=== PATIENT | female | born 1975 | race African-American/Black ===

== ENCOUNTER 2021-07-29 07:57 | Outpatient (CLI) | payer OTHER, SELFPAY ==
[2021-07-29 08:47] LABS: Basophils Percent Auto 0.4 % (0.2-1.2); Eosinophils Absolute Auto 0.1 K/mm3 (0-0.3); Eosinophils Percent Auto 1.1 % (0-4.4); Hematocrit 44.3 % (37.0-47.0); Hemoglobin 14.8 g/dL (12.0-15.0); Immature Granulocyte Absolute 0.01 K/mm3 (0.00-0.031); Immature Granulocyte Percent A 0.1 % (0-0.5); Lymphocytes Absolute Auto 3.04 K/mm3 (0.9-3.2); Lymphocytes Percent Auto 34.2 % (18.3-44.2); Mean Corpuscular HGB Conc 33.4 g/dl (32-36); Mean Corpuscular Hemoglobin 31.3 pg (26-34); Mean Corpuscular Volume 93.7 fl (80-100); Mean Platelet Volume 10.2 fl (7.4-10.4); Monocytes Absolute Auto 0.6 K/mm3 (0.1-0.6); Monocytes Percent Auto 6.2 % (2.6-8.5); Neutrophils Absolute Auto 5.2 K/mm3 (1.3-6.7); Platelet Count Result 201 k/mm3 (150-375); Red Blood Count 4.73 M/mm3 (4.2-5.4); Red Cell Distribution Width 13.4 % (11.5-14.5); White Blood Count 8.9 K/mm3 (4.5-10.0)
[2021-07-29 09:22] LABS: Alanine Aminotransferase 19 U/L (4-35); Albumin Level 4.6 g/dL (3.5-5.1); Alkaline Phosphatase 66 U/L (38-126); Anion Gap 7 mmol/L (8-16); Aspartate Amino Transferase 31 U/L (14-36); Blood Urea Nitrogen 20 mg/dL (7-17); Calcium 9.5 mg/dL (8.4-10.2); Carbon Dioxide 29 mmol/L (22-30); Chloride 105 mmol/L (98-107); Cholesterol 190 mg/dL (0-200); Estimated Glomerular Filt Rate > 60; Glucose 84 mg/dL (65-110); HDL Direct 55 mg/dL; Phosphorus 3.2 mg/dL (2.5-4.5); Potassium 4.5 mmol/L (3.4-5.0); Sodium 141 mmol/L (137-145); Triglycerides 81 mg/dL (<150)
[2021-07-29 09:35] LABS: Vitamin D 25 Hydroxy 52.4 ng/mL
[2021-07-29 09:39] LABS: LDL Cholesterol Direct 89 mg/dL; Transferrin 259 mg/dL (206-381)
[2021-07-29 10:35] LABS: Folic Acid > 20.0 ng/mL (2.76->20)
[2021-07-29 11:26] LABS: Iron 56 ug/dL (37-170)
[2021-07-29 11:30] LABS: Percent Iron Saturation 15 % (20-50)
[2021-07-29 11:40] LABS: Parathyroid Intact 62.7 pg/mL (7.5-53.5)
== END 2021-07-29 07:58 | disposition home or self-care (01) ==
DX: K91.2 Postsurgical malabsorption, not elsewhere classified (principal); Z90.3 Acquired absence of stomach [part of]; Z98.84 Bariatric surgery status
CPT/HCPCS: 36415; 80053; 80061; 82306; 82607; 82728; 82746; 83540; 83550; 83735; 83970; 84100; 84425; 84466; 85025

== ENCOUNTER 2022-02-18 11:08 | Outpatient (CLI) | payer OTHER, SELFPAY ==
[2022-02-18 11:45] LABS: Basophils Absolute Auto 0.1 K/mm3 (0.0-0.1); Basophils Percent Auto 0.7 % (0.2-1.2); Eosinophils Absolute Auto 0.1 K/mm3 (0-0.3); Eosinophils Percent Auto 0.6 % (0-4.4); Hematocrit 42.2 % (37.0-47.0); Hemoglobin 13.9 g/dL (12.0-15.0); Immature Granulocyte Absolute 0.03 K/mm3 (0.00-0.031); Immature Granulocyte Percent A 0.3 % (0-0.5); Lymphocytes Percent Auto 27.4 % (18.3-44.2); Mean Corpuscular HGB Conc 32.9 g/dl (32-36); Mean Corpuscular Hemoglobin 32.3 pg (26-34); Mean Corpuscular Volume 97.9 fl (80-100); Mean Platelet Volume 10.1 fl (7.4-10.4); Monocytes Absolute Auto 0.4 K/mm3 (0.1-0.6); Monocytes Percent Auto 4.8 % (2.6-8.5); Neutrophils Absolute Auto 5.8 K/mm3 (1.3-6.7); Neutrophils Percent Auto 66.2 % (45.5-73.1); Platelet Count Result 221 k/mm3 (150-375); Red Blood Count 4.31 M/mm3 (4.2-5.4); Red Cell Distribution Width 12.7 % (11.5-14.5); White Blood Count 8.8 K/mm3 (4.5-10.0)
[2022-02-18 11:55] LABS: Alanine Aminotransferase 19 U/L (4-35); Albumin Level 4.3 g/dL (3.5-5.1); Alkaline Phosphatase 70 U/L (38-126); Anion Gap 3 mmol/L (8-16); Aspartate Amino Transferase 29 U/L (14-36); Bilirubin,Total 0.4 mg/dL (0.2-1.3); Blood Urea Nitrogen 20 mg/dL (7-17); Calcium 8.9 mg/dL (8.4-10.2); Carbon Dioxide 30 mmol/L (22-30); Chloride 106 mmol/L (98-107); Cholesterol 207 mg/dL (0-200); Estimated Glomerular Filt Rate > 60; Glucose 87 mg/dL (65-110); HDL Direct 72 mg/dL; Phosphorus 3.6 mg/dL (2.5-4.5); Potassium 4.1 mmol/L (3.4-5.0); Sodium 139 mmol/L (137-145); Triglycerides 74 mg/dL (<150)
[2022-02-18 12:06] LABS: LDL Cholesterol Direct 100 mg/dL
[2022-02-18 12:12] LABS: Iron 88 ug/dL (37-170)
[2022-02-18 12:14] LABS: Parathyroid Intact 62.3 pg/mL (7.5-53.5)
[2022-02-18 12:22] LABS: Percent Iron Saturation 28 % (20-50)
[2022-02-18 12:29] LABS: Vitamin D 25 Hydroxy 36.9 ng/mL
[2022-02-18 13:00] LABS: Folic Acid 15.7 ng/mL (2.76->20)
[2022-02-24 16:01] LABS: Vitamin B1 9 nmol/L (8-30)
== END 2022-02-18 11:09 | disposition home or self-care (01) ==
LOC: ANHLAB 11:14
DX: E66.01 Morbid (severe) obesity due to excess calories (principal); K90.9 Intestinal malabsorption, unspecified; Z98.84 Bariatric surgery status
CPT/HCPCS: 36415; 80053; 80061; 82306; 82607; 82728; 82746; 83540; 83550; 83735; 83970; 84100; 84425; 85025

== ENCOUNTER 2022-08-24 23:21 | Emergency (ER) | payer OTHER, SELFPAY ==
[2022-08-24 23:26] VITALS: BP 151/81; PULSE 57; RESP 18; TEMP 36.3; O2SAT 100
--- NOTE | 2022-08-24 23:39 | PC.NURSE ---
EDP at bedside to assess pt.
--- NOTE | 2022-08-24 23:42 | ED.GENADULT ---
HPI - General Adult General Chief complaint: Back Pain/Injury Stated complaint: back pain Time Seen by Provider: 08/24/22 23:35 Source: patient Mode of arrival: ambulatory Limitations: no limitations History of Present Illness HPI narrative: Presents c/o RT lateral back pain that pt awoke with this AM. States pain increases with lateral movement but able to change positions without diff. Denies urinary sx, fever, N/V or other sx at this time. Currently doing prep for colonoscopy in the AM. Denies traumatic injury. Related Data Allergies Allergy/AdvReac Type Severity Reaction Status Date / Time amoxicillin Allergy Rash Verified 08/24/22 23:23 Review of Systems Review of Systems: CONSTITUTIONAL: Denies fever, chills, or sweats. EYES: Denies visual changes, redness, or discharge. ENT: Denies rhinorrhea, congestion, sore throat, or otalgia. CARDIOVASCULAR: Denies chest pain, palpitations, or edema. RESPIRATORY: Denies cough or dyspnea. GASTROINTESTINAL: Denies abdominal pain, nausea, vomiting, or diarrhea. GENITOURINARY: Denies dysuria or hematuria. SKIN: Denies rash or itching. MUSCULOSKELETAL: Right lateral mid back pain. denies joint pain, or myalgia. NEUROLOGIC: Denies headache, numbness, or weakness. PSYCHIATRIC: Denies anxiety or depression. Exam Narrative: GENERAL: Well-appearing, well-nourished, and in no acute distress. HEAD: Normocephalic, atraumatic. EYES: PERRLA and EOMI. ENT: Nares clear, no rhinorrhea or epistaxis. Mucous membranes moist. NECK: Supple. CHEST: Clear to auscultation. No respiratory distress. HEART: Regular rate and rhythm. No murmur heard. Normal peripheral pulses. ABDOMEN: Soft, nontender, nondistended, normal active bowel sounds. EXTREMITIES: Normal range of motion. No edema. MUSCULOSKELETAL: Mild tenderness to palpation right lateral posterior rib area. Possible palpable muscle spasm to area. Slight CVA tenderness RT. Denies urinary sx. SKIN: Warm, dry, no rash. NEURO: No focal deficits. Alert and oriented x3. PSYCH: Normal mood and affect. Course Course Emergency Course: Asleep in room when entered to give urine results. Appears comfortable. Vital Signs Vital signs: Vital Signs Temperature 36.3 C L 08/24/22 23:26 Pulse Rate 57 L 08/24/22 23:26 Respiratory Rate 18 08/24/22 23:26 Blood Pressure 151/81 H 08/24/22 23:26 Pulse Oximetry 100 08/24/22 23:26 Oxygen Delivery Room Air 08/24/22 23:26 Temperature 36.3 C L 08/24/22 23:26 Pulse Rate 57 L 08/24/22 23:26 Respiratory Rate 18 08/24/22 23:26 Blood Pressure 151/81 H 08/24/22 23:26 Pulse Oximetry 100 08/24/22 23:26 Oxygen Delivery Room Air 08/24/22 23:26 Medical Decision Making Vital Signs Vital Signs: Vital Signs Temperature 36.3 C L 08/24/22 23:26 Pulse Rate 57 L 08/24/22 23:26 Respiratory Rate 18 08/24/22 23:26 Blood Pressure 151/81 H 08/24/22 23:26 Pulse Oximetry 100 08/24/22 23:26 Oxygen Delivery Room Air 08/24/22 23:26 Temperature 36.3 C L 08/24/22 23:26 Pulse Rate 57 L 08/24/22 23:26 Respiratory Rate 18 08/24/22 23:26 Blood Pressure 151/81 H 08/24/22 23:26 Pulse Oximetry 100 08/24/22 23:26 Oxygen Delivery Room Air 08/24/22 23:26 Lab Data Labs: Lab Results 08/24/22 Range/Units 23:44 Urine Color Yellow (Yellow) Urine Appearance Cloudy H (Clear) Urine pH 6.0 (5.0-9.0) Ur Specific [place] 1.013 (1.001-1.035) Urine Protein Negative (Negative) mg/dL Urine Glucose (UA) Negative (Negative) mg/dL Urine Ketones Negative (Negative) mg/dL Ur Blood (Man) 1+ H (Negative) Urine Nitrate Negative (Negative) Urine Bilirubin Negative (Negative) Urine Urobilinogen Negative (<2.0) mg/dL Leukocyte Esterase Rfl Negative (Negative) REYES/UL Urine RBC 0-2 (0-2) /hpf Urine WBC 0-3 /hpf Ur Squamous Epith Cells Many H (Few) /hpf Urine Mucus Rare /lpf Discharge Plan Discharge Cli
[2022-08-25 00:06] LABS: Add Urine Microscopic? YES; Appearance Urine Cloudy (Clear); Bilirubin Urine Negative (Negative); Blood Urine 1+ (Negative); Color Urine Yellow (Yellow); Glucose Urine UA Negative (Negative); Ketones Urine Negative (Negative); Leukocyte Esterase Ur Negative LEU/UL (Negative); Mucus Urine Rare /lpf; Nitrate Urine Negative (Negative); Protein Urine Negative (Negative); RBC Urine 0-2 /hpf (0-2); Specific Grav Ur 1.013 (1.001-1.035); Squamous Epithelial Cell Urine Many /hpf (Few); Urobilinogen Urine Negative mg/dL (<2.0); WBC Urine 0-3 /hpf
== END 2022-08-25 00:39 | disposition home or self-care (01) ==
PROVIDERS: Emergency Provider Nurse Practitioner
DX: M54.6 Pain in thoracic spine (principal)
CPT/HCPCS: 81001; 99283

== ENCOUNTER 2022-12-28 09:11 | Outpatient (CLI) | payer OTHER, SELFPAY ==
[2022-12-28 09:32] LABS: Basophils Percent Auto 0.4 % (0.2-1.2); Eosinophils Absolute Auto 0.1 K/mm3 (0-0.3); Eosinophils Percent Auto 0.7 % (0-4.4); Hemoglobin 14.8 g/dL (12.0-15.0); Immature Granulocyte Absolute 0.02 K/mm3 (0.00-0.031); Immature Granulocyte Percent A 0.2 % (0-0.5); Lymphocytes Absolute Auto 2.38 K/mm3 (0.9-3.2); Lymphocytes Percent Auto 29.1 % (18.3-44.2); Mean Corpuscular HGB Conc 33.6 g/dl (32-36); Mean Corpuscular Hemoglobin 31.7 pg (26-34); Mean Corpuscular Volume 94.2 fl (80-100); Mean Platelet Volume 9.9 fl (7.4-10.4); Monocytes Absolute Auto 0.4 K/mm3 (0.1-0.6); Monocytes Percent Auto 4.9 % (2.6-8.5); Neutrophils Absolute Auto 5.3 K/mm3 (1.3-6.7); Neutrophils Percent Auto 64.7 % (45.5-73.1); Platelet Count Result 218 k/mm3 (150-375); Red Blood Count 4.67 M/mm3 (4.2-5.4); Red Cell Distribution Width 13.1 % (11.5-14.5); White Blood Count 8.2 K/mm3 (4.5-10.0)
[2022-12-28 09:43] LABS: Alanine Aminotransferase 23 U/L (6-35); Albumin Level 4.5 g/dL (3.5-5.1); Alkaline Phosphatase 71 U/L (38-126); Anion Gap 5 mmol/L (8-16); Aspartate Amino Transferase 24 U/L (14-36); Bilirubin,Total 0.7 mg/dL (0.2-1.3); Blood Urea Nitrogen 21 mg/dL (7-17); Calcium 9.3 mg/dL (8.4-10.2); Carbon Dioxide 31 mmol/L (22-30); Chloride 104 mmol/L (98-107); Cholesterol 204 mg/dL (0-200); Estimated Glomerular Filt Rate > 60; Glucose 88 mg/dL (65-110); HDL Direct 68 mg/dL; Potassium 4.5 mmol/L (3.4-5.0); Sodium 140 mmol/L (137-145); Triglycerides 61 mg/dL (<150)
[2022-12-28 09:54] LABS: LDL Cholesterol Direct 93 mg/dL
[2022-12-31 04:51] LABS: FSH 50.7 mIU/mL (***); Prolactin 6.4 ng/mL (***)
== END 2022-12-28 09:12 | disposition home or self-care (01) ==
PROVIDERS: PCP Internal Medicine; Visit Provider Nurse Practitioner Family
DX: I10 Essential (primary) hypertension (principal); M54.9 Dorsalgia, unspecified; Z76.89 Persons encountering health services in other specified circumstances
CPT/HCPCS: 36415; 80053; 80061; 83001; 84146; 84443; 85025

== ENCOUNTER 2023-02-08 06:34 | Outpatient (CLI) | payer OTHER, SELFPAY ==
--- NOTE | ~2023-02-08 | CT_ITS ---
EXAMINATION: CT soft tissue neck wo con DATE: 02/08/2023 06:57 INDICATION: Right parotid swelling. TECHNIQUE: Computed tomography (CT) of the neck was performed without intravenous contrast. Automated exposure control and iterative reconstruction technique were employed. The dose-length product was 4 93.61 mGy-cm. COMPARISON: None FINDINGS: The parotid glands are normal. No sialolith. There are no pathologically enlarged lymph nod es. There is mild mucosal thickening in the ethmoid sinuses. The mastoid air cells are normal. There is mild cervical spondylosis. IMPRESSION: 1. Normal parotid glands. No sialolith. Reviewed, dictated and finalized at location A.
== END 2023-02-08 06:35 | disposition home or self-care (01) ==
LOC: ANHIMG 06:40
PROVIDERS: PCP Internal Medicine; Visit Provider Otolaryngology
DX: K11.23 Chronic sialoadenitis (principal)
CPT/HCPCS: 70490

== ENCOUNTER 2023-03-22 13:08 | Outpatient (CLI) | payer OTHER, SELFPAY ==
[2023-03-22 13:42] LABS: Urine Cotinine NEGATIVE
[2023-03-22 13:54] LABS: LDL Cholesterol Direct 70 mg/dL; Prealbumin 31.3 mg/dL (17.6-36.0)
[2023-03-22 13:56] LABS: Anion Gap 6 mmol/L (8-16); Blood Urea Nitrogen 17 mg/dL (7-17); Calcium 8.6 mg/dL (8.4-10.2); Carbon Dioxide 30 mmol/L (22-30); Chloride 101 mmol/L (98-107); Cholesterol 183 mg/dL (0-200); Estimated Glomerular Filt Rate > 60; Glucose 85 mg/dL (65-110); HDL Direct 109 mg/dL; Phosphorus 3.2 mg/dL (2.5-4.5); Potassium 4.2 mmol/L (3.4-5.0); Sodium 137 mmol/L (137-145); Triglycerides 71 mg/dL (<150)
[2023-03-22 14:49] LABS: Folic Acid 9.4 ng/mL (2.76->20)
== END 2023-03-22 13:09 | disposition home or self-care (01) ==
PROVIDERS: PCP Internal Medicine; Visit Provider Nurse Practitioner Family
DX: E66.3 Overweight (principal); Z87.891 Personal history of nicotine dependence
CPT/HCPCS: 80048; 80061; 80307; 82607; 82728; 82746; 84100; 84134

== ENCOUNTER 2024-01-09 23:05 | Observation (INO) | payer BC, SELFPAY ==
[2024-01-09 23:20] VITALS: BP 115/67; PULSE 71; RESP 15; TEMP 36.6; O2SAT 100
[2024-01-09 23:21] VITALS: O2SAT 100
--- NOTE | 2024-01-09 23:22 | ED.ALLEREA ---
HPI - Allergic Reaction General Chief complaint: Allergic Reaction <DANYA Glover Last Filed: 01/10/24 03:58> Stated complaint: facial swelling, itching <DANYA Glover Last Filed: 01/10/24 03:58> Time Seen by Provider: 01/09/24 23:20 <DANYA Glover Last Filed: 01/10/24 03:58> Source: patient <DANYA Glover Last Filed: 01/10/24 03:58> Mode of arrival: ambulatory <DANYA Glover Last Filed: 01/10/24 03:58> Limitations: no limitations <DANYA Glover Last Filed: 01/10/24 03:58> History of Present Illness HPI narrative: This is a 48 year old female that presents to the ER for allergic reaction. Reports about 20 minutes prior to arrival. She started to feel itchy all over. She took 50mg of Benadryl. She reports some itching beginning in her throat. Reports swelling of her face and hands. No known exposures. Denies dysphagia or dyspnea. <DANYA Glover Last Filed: 01/10/24 03:58> Related Data Home medications: Home Medications Medication Instructions Recorded Confirmed No Home Medications 01/10/24 01/10/24 <DANYA Glover Last Filed: 01/10/24 03:58> Allergies/adverse reactions: Allergies Allergy/AdvReac Type Severity Reaction Status Date / Time amoxicillin Allergy Rash Verified 02/19/23 17:09 Iodinated Contrast Media Allergy Rash Verified 02/19/23 17:09 <DANYA Glover Last Filed: 01/10/24 03:58> Review of Systems Review of Systems: CONSTITUTIONAL: Denies fever ENT: Denies dysphagia RESPIRATORY: Denies dyspnea. GASTROINTESTINAL: Denies nausea, vomiting, or diarrhea. SKIN: Reports rash and itching. <DANYA Glover Last Filed: 01/10/24 03:58> All systems reviewed & are unremarkable except as noted in HPI and below <DANYA Glover Filed: 01/10/24 03:58> [facility] Surgical History Surgical History: Surgical History H/O gastric sleeve H/O: hysterectomy History of appendectomy <Olivia Fink PA-C - Last Filed: 01/10/24 03:58> Family History Family History: Family History Father Hypertension <Olivia Fink PA-C - Last Filed: 01/10/24 03:58> Social History Social History: Social History Smoking packs per day: 0.25 Smoking cigarettes per day: 5.0 Years smoked: 10 Smoking pack-years: 2.50 Smoking status: Light tobacco smoker Tobacco type: cigarettes Second hand tobacco smoke exposure: Yes Smoking end date: 11/07/09 Alcohol intake: current Drinks per week: 2 Alcohol use details: occasionally Substance use: never Substance use type: does not use Do You Feel Safe in your Home?: Yes Lack of Transportation: No Lack of Food: Never True Current Housing: I Have Housing Concerned About Future Housing: No Difficulty Paying Gas/Electric Bills: No Difficulty Paying for Meds: No Currently Unemployed: No Education: High School Diploma/GED Difficulty w/ Childcare or Family Care: No Spiritual care concerns: No <DANYA Glover Last Filed: 01/10/24 03:58> Exam Narrative: GENERAL: Well-appearing, well-nourished, and in no acute distress. HEAD: Normocephalic, atraumatic. EYES: EOMI. ENT: Nares clear, no rhinorrhea or epistaxis. Mucous membranes moist. Oropharynx with mild erythema. Swelling of the lips and tongue NECK: Supple. No adenopathy or masses CHEST: Clear to auscultation. No respiratory distress. No wheezes rales or rhonchi HEART: Regular rate and rhythm. No murmur heard. Normal peripheral pulses. EXTREMITIES: Normal range of motion. No edema. SKIN: Warm, dry. Diffuse hives NEURO: No focal deficits. Alert and oriented x3. PSYCH: Normal mood and affect <Olivia Fink PA-C - Last Filed: 01/10/24 03
--- NOTE | 2024-01-09 23:30 | ECG_ITS ---
Measurements Intervals [place] Rate: 68 P: 58 FL: 149 QRS: 9 QRSD: 103 T: 25 QT: 419 QTc: 446 Interpretive Statements SINUS RHYTHM BASELINE ARTIFACT- I, II, III NORMAL ECG NO PREVIOUS ECG AVAILABLE FOR COMPARISON Electronically Signed On 01-10-2024 14:43:45 BEEF TAGGER by Jimi Lerner D.O.
[2024-01-09] MEDS: methylPREDNISolone SOD SUCC 125 MG VIAL IV PUSH (23:49)
[2024-01-09] MEDS: FAMOTIDINE 20 MG/2 ML VIAL IV PUSH (23:49)
[2024-01-09] MEDS: ACETAMINOPHEN 500 MG TABLET 1000 MG PO (23:49)
[2024-01-10] VITALS (12 sets, daily range): BP systolic 117–153; BP diastolic 68–93; PULSE 56–77; RESP 15–21; TEMP 35.9–37; O2SAT 97–100
--- NOTE | 2024-01-10 01:03 | PC.NURSE ---
Pt resting in room comfortable at this time. Pt reports relief of itching.
--- NOTE | 2024-01-10 03:42 | PC.NURSE ---
Pts generalized rash has improved, pt denies any current itching. swelling in mouth has also resolved. Pt does still have swelling to lips.
--- NOTE | 2024-01-10 04:00 | ECG_ITS ---
Measurements Intervals [place] Rate: 60 P: 46 OR: 128 QRS: 20 QRSD: 112 T: 18 QT: 449 QTc: 451 Interpretive Statements SINUS RHYTHM EARLY PRECORDIAL R/S TRANSITION BORDERLINE ECG COMPARED TO ECG 01/09/2024 23:30:26 NO SIGNIFICANT CHANGES Electronically Signed On 01-10-2024 6:51:26 BILLING ANALYST by Jimi Lerner D.O.
--- NOTE | 2024-01-10 04:14 | PC.NURSE ---
See incident report ([id number]) regarding administration error of Epinephrine.
[2024-01-10 04:55] LABS: Basophils Percent Auto 0.3 % (0.2-1.2); Hematocrit 44.8 % (37.0-47.0); Hemoglobin 14.5 g/dL (12.0-15.0); Immature Granulocyte Absolute 0.03 K/mm3 (0.00-0.031); Immature Granulocyte Percent A 0.4 % (0-0.5); Lymphocytes Percent Auto 13.8 % (18.3-44.2); Mean Corpuscular HGB Conc 32.4 g/dl (32-36); Mean Corpuscular Hemoglobin 32.2 pg (26-34); Mean Corpuscular Volume 99.3 fl (80-100); Mean Platelet Volume 9.7 fl (7.4-10.4); Monocytes Absolute Auto 0.1 K/mm3 (0.1-0.6); Monocytes Percent Auto 1.5 % (2.6-8.5); Neutrophils Absolute Auto 6.1 K/mm3 (1.3-6.7); Platelet Count Result 255 k/mm3 (150-375); Red Blood Count 4.51 M/mm3 (4.2-5.4); Red Cell Distribution Width 13.1 % (11.5-14.5); White Blood Count 7.3 K/mm3 (4.5-10.0)
[2024-01-10 05:05] LABS: Alanine Aminotransferase 24 U/L (6-35); Albumin Level 4.4 g/dL (3.5-5.1); Alkaline Phosphatase 85 U/L (38-126); Anion Gap 9 mmol/L (8-16); Aspartate Amino Transferase 37 U/L (14-36); Bilirubin,Total 0.5 mg/dL (0.2-1.3); Blood Urea Nitrogen 26 mg/dL (7-17); Calcium 9.3 mg/dL (8.4-10.2); Carbon Dioxide 23 mmol/L (22-30); Chloride 106 mmol/L (98-107); Estimated CRCL calculation 80 ml/min; Estimated Glomerular Filt Rate > 60; Glucose 98 mg/dL (65-110); Potassium 3.9 mmol/L (3.4-5.0); Sodium 138 mmol/L (137-145)
--- NOTE | 2024-01-10 05:19 | ADMGEN ---
This patient, Maria Del Carmen Ray, was admitted to Medical Room 348-01. Patient/family oriented to hospital policies and general routines including ID bracelet, bed and alarms, visiting hours, pain management, procedures, bathroom and other care routines, personal items, smoking policy, room service/diet, and visiting hours. Information on how to activate the Rapid Response Team has been discussed. Patient/Family are encouraged to report perceived risks to care and to ask questions if they do not understand what they are told or what they should do.
[2024-01-10] MEDS: methylPREDNISolone SOD SUCC 125 MG VIAL 60 MG IV PUSH ×4 (06:30→23:47)
--- NOTE | 2024-01-10 09:27 | PM.IMHP ---
H&P: [facility] History of Present Illness Date/Time: 01/10/24 09:27 Chief Complaint: allergic reaction Narrative: 48yo healthy female who presents with complaints of allergic reaction with facial swelling and itching. Patient developed cough and sharp, frequent right sided chest pain described as 'contraction' on 01/08/24. She presented to outside facility and states that CXR and EKG were normal. COVID swab negative. She was discharged with Flonase and benzonate but did not fill these medications. On the morning of admission, she was advised by a colleague to take ASA which she took 162mg. She believes she has taken ASA in the past but can not recall how long ago. She did not have any symptoms. That evening, she took ASA 162mg again and also are spinish, eggs, cheese and spices. About 30 minutes later, she developed allergic symptoms. Fingers began to itch then involving her whole body. Facial swelling involving lips; throat swelling with SOB; hives developed throughout. Showering made her pruritus worse. She has never had this before. No history of asthma or eczema. She is allergic to contrast dye and penicillin which causes rash but not hives. She is not on an JAYJAY-inhibitor. No family history of allergic reactions. She does not take any medications. No new [id number]-[id number] medications. She took Benadryl but her symptoms did not improve and she presented to the emergency room for evaluation. In the emergency room, patient was hemodynamically stable. EKG showed normal sinus rhythm with early transition but otherwise normal. Cbc and CMP were essentially normal. Patient was given Solu-Medrol, Pepcid and epinephrine. She had some improvement although continued to have lip and tongue swelling after 4-1/2 hours. She was admitted for further care. Of note is that the patient was accidentally given epinephrine IV instead of IM in the ED. She experienced tachycardia and headache. Currently she feels better overall. She still has lip swelling and her tongue feels thick. She still has headache but this is improved. She denies any vision changes, hearing changes, chest pain, shortness of breath, palpitations, nausea, vomiting, back pain, abdominal pain, dysuria or hematuria. Still with mild cough. Review of Systems Review of Systems: All systems reviewed & are unremarkable except as noted in HPI and below [facility] Past Medical History Medical History (Updated 01/10/24 @ 09:48 by Chris Petersen MD) Angioedema Surgical History Surgical History H/O gastric sleeve H/O: hysterectomy History of appendectomy Family History Family History Father Hypertension Social History Social History Smoking packs per day: 0.25 Smoking cigarettes per day: 5.0 Years smoked: 10 Smoking pack-years: 2.50 Smoking status: Light tobacco smoker Tobacco type: cigarettes Second hand tobacco smoke exposure: Yes Smoking end date: 11/07/09 Alcohol intake: current Drinks per week: 2 Alcohol use details: occasionally Substance use: never Substance use type: does not use Do You Feel Safe in your Home?: Yes Lack of Transportation: No Lack of Food: Never True Current Housing: I Have Housing Concerned About Future Housing: No Difficulty Paying Gas/Electric Bills: No Difficulty Paying for Meds: No Currently Unemployed: No Education: High School Diploma/GED Difficulty w/ Childcare or Family Care: No Spiritual care concerns: No Meds Home Medications and Allergies Home Medications Medication Instructions Recorded Confirmed Type No Home Medications 01/10/24 01/10/24 History Allergies Allergy/AdvReac Type Severity Reaction Status Date / Time amoxicillin Allergy Rash Verified 02/19/23 17:09 Iodinated Contrast Media Allergy Rash Verified 02/19
[2024-01-10] MEDS: FAMOTIDINE 20 MG TABLET PO ×2 (09:47→20:46)
[2024-01-10] MEDS: polyethylene glycoL 3350 17 GM POWD.PACK PO (21:43)
[2024-01-11] VITALS (7 sets, daily range): BP systolic 129–152; BP diastolic 78–83; PULSE 51–68; RESP 20; TEMP 36.6–36.8; O2SAT 98–99
[2024-01-11] MEDS: methylPREDNISolone SOD SUCC 125 MG VIAL 60 MG IV PUSH ×2 (05:32→12:29)
[2024-01-11] MEDS: FAMOTIDINE 20 MG TABLET PO (08:18)
[2024-01-11] MEDS: ACETAMINOPHEN 325 MG TABLET 650 MG PO (09:57)
--- NOTE | 2024-01-11 15:53 | PM.DS ---
DS: Admitting Diagnosis Discharge Date 01/11/24 Admitting Diagnosis Allergic reaction Angioedema DS: Discharge Diagnosis Discharge Diagnosis (1) Allergic reaction: Qualifiers: Encounter type: initial encounter Qualified Code(s): T78.40XA - Allergy, unspecified, initial encounter Code(s): T78.40XA - Allergy, unspecified, initial encounter Status: Acute (2) Angioedema: Code(s): T78.3XXA - Angioneurotic edema, initial encounter Status: Acute DS: Summary Hospital Course Reason for hospitalization: Allergic reaction Angioedema Hospital Course: This is a 48 year old female who presented to the hospital on 01/09/24 with complaints of allergic reaction with facial swelling and itching. Work up in the hospital included soft tissue neck CT which was noted as normal. Initial labs were essentially unremarkable. Patient was placed on observation status. Patient was given epinephrine, solu-medrol and pepcid while in the ED. Today patient states that she has no more swelling or numbness to her face. I discussed that she will need to follow up with an household appliance mechanic on an outpatient basis. She was given a prescription for Solu-medrol dose pack and an Epi pen. She will need to follow up with her PCP in 1 week. VSS. She is afebrile, currently on room air. She is stable for discharge. Final diagnosis: allergic reaction, angioedema Status at Discharge Cognitive/behavioral status at discharge: Alert and oriented x3 Functional status at discharge: independent ambulation Overall status at discharge: patient is progressing back to baseline Time Spent with Patient Time attestation: Total time spent providing and/or coordinating discharge services: Time spent: Greater than 30 minutes Exam Narrative: General: In no acute distress, well nourished Head: atraumatic, no encephalopathy Eyes: EOMI, PERRLA, sclera clear ENT: moist mucous membranes, nasal passages clear Neck: supple, no JVD, no adenopathy, trachea midline Cardiac: Normal S1 and S2. No murmur, gallops or friction rubs, peripheral pulses intact. Respiratory: Lungs clear to auscultation, no adventitious lung sounds Gastrointestinal: soft, non-distended, non-tender, normoactive bowel sounds. : voiding without difficulty. Extremities: moves all extremities well, no edema, good ROM, strength 5/5 Skin: clean, dry, intact. No wounds or lesions. Neuro: Alert and oriented x4, cranial nerves intact, no neuro deficits. Psych: normal mood, normal affect, interactive DS: Data Data Completed and Pending Completed studies during hospitalization: Soft tissue of neck CT Pending studies at discharge: None Procedures/Treatments: None Imaging Radiologist's impression: EXAMINATION: CT soft tissue neck wo con DATE: 02/08/2023 06:57 INDICATION: Right parotid swelling. TECHNIQUE: Computed tomography (CT) of the neck was performed without intravenous contrast. Automated exposure control and iterative reconstruction technique were employed. The dose-length product was 493.61 mGy-cm. COMPARISON: None FINDINGS: The parotid glands are normal. No sialolith. There are no pathologically enlarged lymph nodes. There is mild mucosal thickening in the ethmoid sinuses. The mastoid air cells are normal. There is mild cervical spondylosis. IMPRESSION: 1. Normal parotid glands. No sialolith. Reviewed, dictated and finalized at location A. Discharge Plan Discharge Attending physician on discharge: Sugar Carranza Consulting providers: Olivia Fink; Chris Petersen; Carin Danielle Discharging Clinician: Carin Danielle Anticipated Discharge Date/Time: 01/11/24 15:50 Patient Disposition: Home, Self-Care Activity: as tolerated Diet: as tolerated Discharge Instructions: home with an EpiPen and follow-up with household appliance mechanic. Finish al
== END 2024-01-11 17:15 | disposition home or self-care (01) ==
LOC: ANHED 01-10 03:56 → ANH3MED 01-10 05:44
PROVIDERS: Admitting Provider General Practice; Emergency Provider Physician Assistant; PCP Family Medicine; Visit Provider Family Medicine
DX: T78.40XA Allergy, unspecified, initial encounter (principal); T78.3XXA Angioneurotic edema, initial encounter; L29.9 Pruritus, unspecified; X58.XXXA Exposure to other specified factors, initial encounter; Z98.84 Bariatric surgery status; F17.210 Nicotine dependence, cigarettes, uncomplicated; F10.90 Alcohol use, unspecified, uncomplicated; Z79.899 Other long term (current) drug therapy
CPT/HCPCS: 36415; 80053; 85025; 93005; 96374; 96375; 96376; 99285; A9270; G0378; J2930

== ENCOUNTER 2024-05-21 15:17 | Emergency (ER) | payer BC, SELFPAY ==
--- NOTE | ~2024-05-21 | XR_ITS ---
XR chest 2V Ordering provider: ISAMAR Brooks History: 48 years Female with . cough x2 weeks . Comparison: None. FINDINGS: MEDIASTINUM: The cardiac silhouette is not enlarged. LUNGS: No infiltrates, effusions or pneumothorax. OTHER: No free air under the diaphragm. IMPRESSION: No acute cardiopulmonary pathology. Reviewed, dictated and finalized at location A.
[2024-05-21 15:26] VITALS: BP 161/112; PULSE 72; RESP 16; TEMP 36.4; O2SAT 99
[2024-05-21 15:28] VITALS: BP 149/101
--- NOTE | 2024-05-21 15:39 | ED.URI ---
HPI - URI/Sore Throat General Chief Complaint: Upper Respiratory Infection Stated Complaint: Cough/Chills/Congestion Time Seen by Provider: 05/21/24 15:32 Source: patient and RN notes reviewed Mode of arrival: ambulatory Limitations: no limitations History of Present Illness HPI Narrative: Patient presents today complaining of a 2 week history of cough that is occasionally productive. Associated symptoms include night sweats and chills, mild congestion. Denies rhinorrhea, sore throat, fever, shortness of breath. Denies known sick contacts. She has tried no medication for symptoms prior to arrival. No history of asthma or COPD. She is a nonsmoker. Related Data Allergies Allergy/AdvReac Type Severity Reaction Status Date / Time amoxicillin Allergy Rash Verified 05/21/24 15:24 Iodinated Contrast Media Allergy Rash Verified 05/21/24 15:24 Review of Systems Review of Systems: CONSTITUTIONAL: Denies body aches, fever. + sweats, chills EYES: Denies visual changes, redness, or discharge. ENT: Denies rhinorrhea, sore throat, or otalgia.+ congestion CARDIOVASCULAR: Denies chest pain, palpitations, or edema. RESPIRATORY: Denies dyspnea.+ cough GASTROINTESTINAL: Denies abdominal pain, nausea, vomiting, or diarrhea. GENITOURINARY: Denies dysuria or hematuria. SKIN: Denies rash, itching, or wounds. MUSCULOSKELETAL: Denies back pain, joint pain, or myalgia. NEUROLOGIC: Denies headache, numbness, tingling, or weakness. PSYCH: Denies depression or anxiety. [facility] Past Medical History Medical History Angioedema Surgical History Surgical History H/O gastric sleeve H/O: hysterectomy History of appendectomy Family History Family History Father Hypertension Social History Social History (Updated 05/21/24 @ 15:41 by Negar Swann, ISAMAR, ) Years smoked: 10 Smoking status: Former smoker Tobacco type: cigarettes Second hand tobacco smoke exposure: Yes Smoking end date: 11/07/09 Alcohol intake: current Drinks per week: 2 Alcohol use details: occasionally Substance use: never Substance use type: does not use Do You Feel Safe in your Home?: Yes Lack of Transportation: No Lack of Food: Never True Current Housing: I Have Housing Concerned About Future Housing: No Difficulty Paying Gas/Electric Bills: No Difficulty Paying for Meds: No Currently Unemployed: No Education: High School Diploma/GED Difficulty w/ Childcare or Family Care: No Spiritual care concerns: No Comments At time of signature, I have reviewed and agree with nursing past medical, surgical, social and family history unless otherwise noted. Please see nursing chart for further information. There is no relevant family history pertinent to the presenting complaint Exam Narrative: GENERAL: Well-appearing, well-nourished, and in no acute distress. HEAD: Normocephalic, atraumatic. EYES: EOMI. No redness or drainage. Conjunctivae normal. ENT: Mucous membranes pink and moist. Nares mildly congested. No rhinorrhea. TMs normal bilaterally. Throat normal. Uvula midline. NECK: Normal AROM. Supple. No lymphadenopathy. CHEST: No respiratory distress. Clear to auscultation. HEART: Regular rate and rhythm. No murmur appreciated. EXTREMITIES: Normal range of motion. No edema. SKIN: Warm, dry, no rash. Capillary refill normal. Normal skin turgor. NEURO: No focal deficits. Alert and oriented x3. Gait steady. PSYCH: Normal affect. No signs of depression or anxiety. Course Course Level of Care: Express Care Visit Vital Signs Vital signs: Vital Signs Temperature 97.6 F 05/21/24 15:26 Pulse Rate 72 05/21/24 15:26 Respiratory Rate 16 05/21/24 15:26 Blood Pressure 161/112 H 05/21/24 15:26 Pulse Oximetry 99 05/21
== END 2024-05-21 16:09 | disposition home or self-care (01) ==
PROVIDERS: Emergency Provider Nurse Practitioner; PCP Family Medicine
DX: J40 Bronchitis, not specified as acute or chronic (principal); Z87.891 Personal history of nicotine dependence; Z98.84 Bariatric surgery status
CPT/HCPCS: 71046; 99213; G0463

== ENCOUNTER 2024-09-24 12:30 | Outpatient (CLI) | payer BC, SELFPAY ==
[2024-09-24 15:18] LABS: Hepatitis B Surface Antigen Negative (Negative)
[2024-09-24 15:23] LABS: HAV RESULT Negative (Negative); Hepatitis B Core IgM Result Negative (Negative)
[2024-09-24 15:35] LABS: Hepatitis C Virus Antibody Negative (Negative)
[2024-09-24 22:21] LABS: HIV 1/2 Ab P24 Ag Result Negative (Negative)
[2024-09-25 07:24] LABS: Rapid Plasma Reagin Non-Reactive (NonReactive)
== END 2024-09-24 12:31 | disposition home or self-care (01) ==
LOC: ANHLAB 12:32
PROVIDERS: PCP Nurse Practitioner Family; Visit Provider Nurse Practitioner Family
DX: Z20.2 Contact with and (suspected) exposure to infections with a predominantly sexual mode of transmission (principal)
CPT/HCPCS: 36415; 80074; 86592; 86695; 86696; 86703; G0432

== ENCOUNTER 2024-10-03 08:41 | Outpatient (CLI) | payer BC, SELFPAY ==
[2024-10-03 09:00] LABS: Add Urine Microscopic? NO; Appearance Urine Clear (Clear); Bilirubin Urine Negative (Negative); Blood Urine Negative (Negative); Color Urine Yellow (Yellow); Glucose Urine UA Negative (Negative); Ketones Urine Negative (Negative); Leukocyte Esterase Ur Negative LEU/UL (Negative); Nitrate Urine Negative (Negative); Protein Urine Negative (Negative); Specific Grav Ur 1.019 (1.001-1.035); Urobilinogen Urine 0.2 mg/dL (<2.0); pH Urine 5.5 (5.0-9.0)
== END 2024-10-03 08:42 | disposition home or self-care (01) ==
LOC: ANHLAB 08:43
PROVIDERS: PCP Nurse Practitioner Family; Visit Provider Nurse Practitioner Family
DX: R30.0 Dysuria (principal)
CPT/HCPCS: 81003; 87086

== ENCOUNTER 2024-10-22 20:06 | Emergency (ER) | payer BC, SELFPAY ==
[2024-10-22 20:12] VITALS: BP 164/99; PULSE 72; RESP 17; TEMP 36.6; O2SAT 100
[2024-10-22 23:11] LABS: Add Urine Microscopic? NO; Appearance Urine Clear (Clear); Bilirubin Urine Negative (Negative); Blood Urine Negative (Negative); Color Urine Yellow (Yellow); Glucose Urine UA Negative (Negative); Ketones Urine Trace mg/dL (Negative); Leukocyte Esterase Ur Negative LEU/UL (Negative); Nitrate Urine Negative (Negative); Protein Urine Negative (Negative); Specific Grav Ur 1.024 (1.001-1.035); pH Urine 6.5 (5.0-9.0)
--- NOTE | 2024-10-22 23:24 | ED_ITS ---
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 Reports she was recently treated for BV. She had finished a course of metronidazole. Started to experience some irritation again. Started on clindamycin. Has had worsening burning with urination. Also reports some abnormal discharge. Related Data Allergies Allergy/AdvReac Type Severity Reaction Status Date / Time amoxicillin Allergy Rash Verified 09/12/24 07:09 Iodinated Contrast Media Allergy Rash Verified 09/12/24 07:09 Review of Systems Review of Systems: CONSTITUTIONAL: Denies fever GENITOURINARY: Reports dysuria. Denies hematuria. SKIN: Denies rash All systems reviewed & are unremarkable except as noted in HPI and below PMFSH Past Medical History Medical History Angioedema Surgical History Surgical History H/O gastric sleeve H/O: hysterectomy History of appendectomy Family History Family History Father Hypertension Social History Social History (Updated 05/21/24 @ 15:41 by Negar Swann, ISAMAR, ) Years smoked: 10 Smoking status: Former smoker Tobacco type: cigarettes Second hand tobacco smoke exposure: Yes Smoking end date: 11/07/09 Alcohol intake: current Drinks per week: 2 Alcohol use details: occasionally Substance use: never Substance use type: does not use Do You Feel Safe in your Home?: Yes Lack of Transportation: No Lack of Food: Never True Current Housing: I Have Housing Concerned About Future Housing: No Difficulty Paying Gas/Electric Bills: No Difficulty Paying for Meds: No Currently Unemployed: No Education: High School Diploma/GED Difficulty w/ Childcare or Family Care: No Spiritual care concerns: No Exam Narrative: GENERAL: Well-appearing, well-nourished, and in no acute distress. HEAD: Normocephalic, atraumatic. EYES: EOMI. EXTREMITIES: Normal range of motion. No edema. SKIN: Warm, dry, no rash. NEURO: No focal deficits. Alert and oriented x3. PSYCH: Normal mood and affect PELVIC: Normal external genitalia. Scant white cervical discharge. No CMT Course Course Emergency Course: patient updated on her workup and agrees with plan of care Vital Signs Vital signs: Vital Signs Temperature 97.9 F 10/22/24 20:12 Pulse Rate 72 10/22/24 20:12 Respiratory Rate 17 10/22/24 20:12 Blood Pressure 164/99 H 10/22/24 20:12 Pulse Oximetry 100 10/22/24 20:12 Oxygen Delivery Room Air 10/22/24 20:12 Temperature 97.9 F 10/22/24 20:12 Pulse Rate 72 10/22/24 20:12 Respiratory Rate 17 10/22/24 20:12 Blood Pressure 164/99 H 10/22/24 20:12 Pulse Oximetry 100 10/22/24 20:12 Oxygen Delivery Room Air 10/22/24 20:12 MDM - Female Genitourinary MDM Narrative Medical decision making narrative: Patient presents to the ER for vaginal irritation. Recently on Metronidazole and then Clindamycin for BV. she is afebrile and nontoxic appearing. Urine without evidence of infection. Chlamydia, gonorrhea Trichomonas negative. test negative. General genital culture sent. Patient given dose of fluconazole. Instructed to have continued follow up with her PCP and given information for follow up with gynecology. She was given warnings to return to the ER Differential Diagnosis Differential diagnosis: Likely urinary tract infection, bacterial vaginosis, trichomoniasis, cervicitis, vaginitis and cystitis Lab Data Attestation: I reviewed the patient's lab results. Labs: Lab Results 10/22/24 10/22/24 10/22/24 Range/Units 22:58 23:21 23:50 Urine Color Yellow (Yellow) Urine Appearance Clear (Clear) Urine pH 6.5 (5.0-9.0) Ur Specific [place] 1.024 (1.001-1.035) Urine Protein Negative (Negative) mg/dL Urine Glucose (UA) Negative (Negative) mg/dL Urine Ketones Trace H (Negative) mg/dL Ur Blood (Man) Negative (Negative) Urine Nitrate Negative (Negative) Urine Bilirubin Negative (Negative) Urine Urobilinogen 1.0 (<2.0) mg/dL Leukocyte Esterase Rfl Negative (Negative) REYES/UL POC Urine HCG, Qual Negative (Negative) C. trachomatis (PCR) Not detected (NOT DETECTE) N. gonorrhoeae (PCR) Not detected (NOT DETECTE) T. vaginalis (PCR) Not detected (NOT DETECTE) Critical Care Time Critical Care Time Critical Care Time: No Discharge Plan Discharge Clinical Impression: Vaginitis Qualifiers: Chronicity: acute Qualified Code(s): N76.0 - Acute vaginitis Patient Disposition: Home, Self-Care Condition: Stable Additional Instructions: Return to the ER if you experience fever, abdominal pain with nausea and vomiting, you are unable to keep down liquids or solids, blood in the urine or any other symptoms that are concerning to you Remain well hydrated. Finish your antibiotics as prescribed Follow up with your primary care doctor and/or gynecology Patient Language: Angolan Prescriptions: No Action clindamycin HCl 300 mg capsule 300 mg PO BID 7 Days Qty: 14 0RF fluconazole 150 mg tablet 150 mg PO ONCE Qty: 2 0RF Rx Instructions: as a single dose; may repeat in 72 hrs if symptoms persist Follow-up/Referrals: Juanis Richards APRN [Primary Care Provider] - Allison Tang MD [Physician] -
[2024-10-22] MEDS: FLUCONAZOLE 150 MG TABLET PO (23:47)
[2024-10-22 23:52] LABS: BEDSIDEPREGUCG Negative (Negative)
[2024-10-23] VITALS: BP 152/90; PULSE 78; RESP 15; O2SAT 99
[2024-10-23 00:34] LABS: Trichomonas Vag PCR NOT DETECTED (NOT DETECTE)
[2024-10-23 00:59] LABS: Chlamydia trachomatis NOT DETECTED (NOT DETECTE); Neisseria gonorrhoeae PCR NOT DETECTED (NOT DETECTE)
[2024-10-23 01:49] VITALS: BP 144/80; PULSE 68; RESP 15; O2SAT 100
== END 2024-10-23 01:51 | disposition home or self-care (01) ==
PROVIDERS: Emergency Provider Physician Assistant; PCP Nurse Practitioner Family
DX: N76.0 Acute vaginitis (principal); Z98.84 Bariatric surgery status; Z90.710 Acquired absence of both cervix and uterus; Z87.891 Personal history of nicotine dependence
CPT/HCPCS: 81003; 81025; 87070; 87491; 87591; 87661; 99284; A9270

== ENCOUNTER 2024-10-28 14:38 | Emergency (ER) | payer BC, SELFPAY ==
[2024-10-28 14:46] VITALS: BP 150/100; PULSE 75; RESP 17; TEMP 36.5; O2SAT 100
[2024-10-28] MEDS: KETOROLAC 30 MG/ML VIAL (*BKC) IM (15:41)
[2024-10-28 16:14] LABS: Strep Group A RT-PCR NOT DETECTED (Negative)
[2024-10-28 16:27] LABS: Influenza A QL RT-PCR Negative (Negative); Influenza B QL RT-PCR Negative (Negative); RSV RNA, RT-PCR Negative (Negative); SARS-CoV-2 RNA PCR Negative (Negative)
--- NOTE | 2024-10-28 16:40 | ED_ITS ---
HPI - General Adult General Chief complaint: Unspecified Stated complaint: want blood work done , lymph nodes swollen Time Seen by Provider: 10/28/24 15:07 History of Present Illness HPI narrative: patient is a 49-year-old female who presents ER with concerns for illness. Reports he has been having some fatigue and sore throat. She has had some aching in her neck and shoulders. She reports enlargement of lymph nodes in her neck. No reported fevers or chills. She has recently been treated for BV. No recent sexual activity while being on the medication. No abdominal pain or pelvic pain. Related Data Allergies Allergy/AdvReac Type Severity Reaction Status Date / Time amoxicillin Allergy Rash Verified 09/12/24 07:09 Iodinated Contrast Media Allergy Rash Verified 09/12/24 07:09 Review of Systems Review of Systems: All systems reviewed & are unremarkable except as noted in HPI and below Constitutional: Constitutional: Reports no additional constitutional complaints ENT: Reports system reviewed and no additional complaints, except as documente d Cardiovascular: Cardiovascular: Reports no additional cardiovascular complaints Respiratory: Respiratory: Reports no additional respiratory complaints [facility] Past Medical History Medical History Angioedema Surgical History Surgical History H/O gastric sleeve H/O: hysterectomy History of appendectomy Family History Family History Father Hypertension Social History Social History (Updated 05/21/24 @ 15:41 by Negar Swann, [facility], ) Years smoked: 10 Smoking status: Former smoker Tobacco type: cigarettes Second hand tobacco smoke exposure: Yes Smoking end date: 11/07/09 Alcohol intake: current Drinks per week: 2 Alcohol use details: occasionally Substance use: never Substance use type: does not use Do You Feel Safe in your Home?: Yes Lack of Transportation: No Lack of Food: Never True Current Housing: I Have Housing Concerned About Future Housing: No Difficulty Paying Gas/Electric Bills: No Difficulty Paying for Meds: No Currently Unemployed: No Education: High School Diploma/GED Difficulty w/ Childcare or Family Care: No Spiritual care concerns: No Exam Narrative: GENERAL: Well-appearing, well-nourished, and in no acute distress. HEAD: Normocephalic, atraumatic. ENT: Mucous membranes moist. Normal appearing posterior oropharynx. NECK: Supple , no significant lymphadenopathy. full range of motion of the neck without midline tenderness. CHEST: Clear to auscultation. No respiratory distress. HEART: Regular rate and rhythm. Normal peripheral pulses. EXTREMITIES: Normal range of motion. No edema. NEURO: Alert and oriented x3. PSYCH: Normal mood and affect. Course Course Emergency Course: Viral panel and strep negative. Patient informed results. Recommend symptomatic care with [id number] medication. Discharge. Vital Signs Vital signs: Vital Signs Temperature 97.7 F 10/28/24 14:46 Pulse Rate 75 10/28/24 14:46 Respiratory Rate 17 10/28/24 14:46 Blood Pressure 150/100 H 10/28/24 14:46 Pulse Oximetry 100 10/28/24 14:46 Oxygen Delivery Room Air 10/28/24 14:46 Temperature 97.7 F 10/28/24 14:46 Pulse Rate 75 10/28/24 14:46 Respiratory Rate 17 10/28/24 14:46 Blood Pressure 150/100 H 10/28/24 14:46 Pulse Oximetry 100 10/28/24 14:46 Oxygen Delivery Room Air 10/28/24 14:46 Medical Decision Making Vital Signs Vital Signs: Vital Signs Temperature 97.7 F 10/28/24 14:46 Pulse Rate 75 10/28/24 14:46 Respiratory Rate 17 10/28/24 14:46 Blood Pressure 150/100 H 10/28/24 14:46 Pulse Oximetry 100 10/28/24 14:46 Oxygen Delivery Room Air 10/28/24 14:46 Temperature 97.7 F 10/28/24 14:46 Pulse Rate 75 10/28/24 14:46 Respiratory Rate 17 10/28/24 14:46 Blood Pressure 150/100 H 10/28/24 14:46 Pulse Oximetry 100 10/28/24 14:46 Oxygen Delivery Room Air 10/28/24 14:46 Lab Data Labs: Lab Results 10/28/24 Range/Units 15:44 Influenza A (RT-PCR) Negative (Negative) Influenza B (RT-PCR) Negative (Negative) RSV (RT-PCR) Negative (Negative) SARS-CoV-2 RNA (RT-PCR) Negative (Negative) Group A Strep (PCR) Not detected (Negative) Discharge Plan Discharge Clinical Impression: URI (upper respiratory infection) Patient Disposition: Home, Self-Care Condition: Stable Instructions: Viral Syndrome (ED) Additional Instructions: As discussed you have a viral illness. Unfortunately there are no specific medications we can give you to make the illness end faster. Antibiotics do not work for viral illnesses. However, you can take Acetaminophen or Ibuprofen to help with fevers and pain. Stay well hydrated and rested. Return to the emergency department if your fevers and chills continue to worse after 5 days, if you develop worsening cough with thick sputum, or are unable to stay hydrated. Contact your primary care provider in the next few days for a re-evaluation and to make sure your symptoms are improving. Patient Language: Frisian Prescriptions: New naproxen 375 mg tablet 375 mg PO BID Qty: 14 0RF No Action fluconazole 150 mg tablet 150 mg PO ONCE Qty: 2 0RF Rx Instructions: as a single dose; may repeat in 72 hrs if symptoms persist Follow-up/Referrals: Juanis Richards APRN [Primary Care Provider] - 1 Week
--- OUTSIDE RECORDS SUMMARY | 2024-11-04 22:58 | XMS_ITS | Encounter Summary ---
Author Organization [facility] Health Address [address] [place] [address] Care Team Providers Care Full Time Babysitter Name Role Phone Cass Mast Primary Care Provider [phone] Reason for Visit * Reason Onset Date Comments Appointment 02/20/2024 Encounter Details Date Type Department Care Team (Late st Contact Info) Description 02/20/2024 Telephone [facility] [address] [place] [phone] Raisa Schmidt MD [address] [place] [address] Appointment Social History Tobacco Use Types Packs/Day Years Used Date Smoking Tobacco: Former Cigarettes Q uit: 06/2020 Smokeless Tobacco: Never Alcohol Use Standard Drinks/Week Comments Yes 0 (1 standard drink = 0.6 oz pur e alcohol) occ wine AUDIT-C Answer Date Recorded Q1: How often do you have a drink containing alcohol? Never 12/08/2022 Q2: How many drinks containi ng alcohol do you have on a typical day when you are drinking? Patient does not drink Q3: How often do you have si x or more drinks on one occasion? 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 No 12/08/2022 Is person blind or have serious difficulty seein g? No 12/08/2022 Does person have serious dif ficulty walking/climbing stairs? No 12/08/2022 Does person have difficulty dressing/bathing? No 12/08/2022 Does person have difficulty doing errands alone? No 12/08/2022 Cognitive Status Response Date of Assessm ent Does person have difficulty concentrating/remembering/making decisions? No 12/08/2022 documented as of this encounter Miscellaneous Notes * Telephone Encounter - Samantha Valdovinos - 02/20/2024 9:39 AM CDT attempted to contact pt to schedule 3 year appts. unable to leave voicemail x1 documented in this encounter Plan of Treatment Upcoming Encounters Date Type Department Care Team (Late st Contact Info) Description 03/15/2025 10:00 AM CDT Office Visit [facility] Weight Management Services [address] [place] [phone] Vianey Llanes, BIOFUELS PROCESSING TECHNICIAN-FARM SERVICE CONSULTANT [address] [place] [address] 03/15/2025 10:30 AM CDT Clinical Support [facility] [address] [place] [phone] documented as of this encounter Visit Diagnoses Not on filedocumented in this encounter Care Teams Full Time Babysitter Relationship Specialty Start Date End Date Cass Mast PA [address] [place] [address] PCP - General Nurse Practitioner Primary Care 01/13/23 03/15/24 documented as of this encounter
--- OUTSIDE RECORDS SUMMARY | 2024-11-04 22:58 | XMS_ITS | Encounter Summary ---
Author Organization [facility] Health Address [address] 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 Gender Identity Female 11/25/2020 1:10 PM MALTHOUSE LABORER Sexual Orientation Straight 02/02/2021 4: 18 PM [...] encounter Miscellaneous Notes * Telephone Encounter - Cinda Cash - 09/01/2023 9:53 AM CDT Sent [place] message for pt to call in to office to let us know if she would like to schedule or pause documented in this encounter Plan of Treatment Upcoming Encounters Date Type Department Care Team (Late st Contact Info) Description 03/15/2025 10:00 AM CDT Office Visit [facility] Weight Management Services [address] [place] [phone] Vianey Llanes, PAD EXTRACTION TENDER-COMBER OPERATOR [address] [place] [address] 03/15/2025 10:30 AM CDT Clinical Support [facility] Weight Management Services [address] [place] [phone] documented as of this encounter Visit Diagnoses Not on filedocumented in this encounter Care Teams Steam Box Operator Relationship Specialty Start Date End Date Cass Mast PA [address] [place] [address] PCP - General Nurse Practitioner Primary Care 01/13/23 03/15/24 documented as of this encounter
--- OUTSIDE RECORDS SUMMARY | 2024-11-04 22:58 | XMS_ITS | Encounter Summary ---
Author Organization [facility] Health Address [address] 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 Gender Identity Female 11/25/2020 1:10 PM BUNKER WORKER Sexual Orientation Straight 02/02/2021 4: 18 PM [...] * Telephone Encounter - Cinda Cash - 06/23/2023 8:45 AM CDT Pt called to let us know that she will not make it in this afternoon - her and daughter washit by an 18 boggs She did not want to be paused just needs some time to take care of her daughter documented in this encounter Plan of Treatment Upcoming Encounters Date Type Department Care Team (Late st Contact Info) Description 03/15/2025 10:00 AM CDT Office Visit [facility] Weight Management Services [address] [place] [phone] Vianey Llanes, CATASTROPHE CLAIMS SUPERVISOR-BEAD PREPARER [address] [place] [address] 03/15/2025 10:30 AM CDT Clinical Support [facility] Weight Management Services [address] [place] [phone] documented as of this encounter Visit Diagnoses Not on filedocumented in this encounter Care Teams General Farm Hand Relationship Specialty Start Date End Date Cass Mast PA [address] [place] [address] PCP - General Nurse Practitioner Primary Care 01/13/23 03/15/24 documented as of this encounter
--- OUTSIDE RECORDS SUMMARY | 2024-11-04 22:58 | XMS_ITS | Encounter Summary ---
Author Organization [facility] Health Address [address] [place] [address] Care Team Providers Care Carbon Capture Power Plant Operator Name Role Phone Unavailable Primary Care Provider Unavailabl e Encounter Details Date Type Department Care Team (Late st Contact Info) Description 05/20/2024 Orders Only [facility] Weight Management Services [address] [place] [phone] Vianey Llanes, QUENCHING MACHINE OPERATOR-CORRESPONDENCE TRANSCRIBER [address] [place] [address] Overweight with body mass index (BMI) of 27 to 27.9 in adult; S/P laparoscopic sleeve gastrectomy; Intestinal malabsorption following gastrectomy (HCC); Iron deficiency; 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 Gender Identity Female 11/25/2020 1:10 PM SECURITY CHIEF MUSEUM Sexual Orientation Straight 02/02/2021 4: 18 PM [...] No 12/08/2022 documented as of this encounter Plan of Treatment Upcoming Encounters Date Type Department Care Team (Late st Contact Info) Description 03/15/2025 10:00 AM CDT Office Visit [facility] Weight Management Services [address] [place] [address] Vianey Llanes, QUENCHING MACHINE OPERATOR-CORRESPONDENCE TRANSCRIBER [address] [place], [place] [phone] 03/15/2025 10:30 AM CDT Clinical Support [facility] [address] [place] [phone] documented as of this encounter Visit Diagnoses Diagnosis Overweight with body mass index (BMI) of 27 to 27.9 in adult S/P laparoscopic 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) Iron deficiency Other disorders of iron 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
--- OUTSIDE RECORDS SUMMARY | 2024-11-04 22:58 | XMS_ITS | Encounter Summary ---
Author Organization [facility] Health Address [address] [place] [address] Care Team Providers Care Family Services Manager Name Role Phone Unavailable Primary Care Provider Unavailabl e Reason for Referral * Consultation (Routine) - Closed Specialty Diagnoses / Procedures Referred By Veronica bonner Referred To Contact Nutrition Services Diagnoses S/P laparoscopic sleeve gastrectomy Raisa Schmidt MD [address] [place] [address] 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 Gender Identity Female 11/25/2020 1:10 PM HEALTH AND NUTRITION SPECIALIST Sexual Orientation Straight 02/02/2021 4: 18 PM CDT documented as of this encounter Last Filed Vital Signs Vital Sign Reading Time Taken Comments Blood Pressure - - Pulse - - Temperature - - Respiratory Rate - - Oxygen Saturation - - Inhaled Oxygen Concentration - - Weight 71.2 kg (156 lb 14.4 oz) 03/16/2024 9:53 AM CDT Height 160 cm (5' 2.99 ) 03/16/2024 9:53 AM CDT Body Mass Index 27.8 03/16/2024 9:53 AM CDT documented in this encounter Functional Status Functional Status Response [...] No 12/08/2022 documented as of this encounter Progress Notes * Jerrica Whitaker RD/SIN - 03/16/2024 10:30 AM CDT MEDICAL NUTRITION THERAPY Weight Management Services Bariatric Surgery Follow-Up Session Number: (3 years s/p VSG) Session Date: 03/16/24 Patient: Maria Del Carmen Ray Date of : 1975 (48 year old) PCP Physician: YADIRA Apodaca (Inactive) Referring Physician: Roxana NUTRITION ASSESSMENT Primary Diagnoses/Co-morbidities: (overweight, s/p VSG) Secondary Diagnoses/Co-morbidities: Hypertension (GERD) Have you seen a dietitian?: Yes Pertinent Labs: reviewed Pertinent Medications: reviewed Current V/M Supplements: CS BID, 600 mg calcium citrate BID- not taking d/t constipation- recommended slowly restart, D2 weekly Eating History Are you following a special diet at home?: Weight Reduction Are you having trouble following your diet?: No Are you having any trouble eating?: No Are you avoiding salty food, and not adding salt to your food?: No Are you limiting your liquids?: No How much liquids per day do you drink?: 64+ oz Usual Number of Times You Eat Out Per Week : 0 Who prepares the meals?: Self Exercise Type of exercise?: Walking How many times do you exercise each week?: 7 How many minutes of exercise each time?: (6 miles) Weight History Height: 160 cm (5' 2.99 ) Initial Program Weight: 255.6# BMI 45.28 Current Weight: 71.2 kg (156 lb 14.4 oz) Weight Method : Standing scale BMI (Calculated): 27.8 Has your weight changed since last visit?: Loss # (2.9#) Total Program Weight Loss: 98.7# Pt seen for nutrition f/u. Pt is 3 years s/p VSG by Dr. Mendoza, desiring panniculectomy. Pt's weight is down 2.9# since last visit, down 98.7# since beginning program. Pt reports drinking 2-3 EHPprotein shakes/day but still eats some solid food as well. Pt reports no issues getting 80+ g protein and 64+ oz fluids daily. Pt reports walking ~6-7 miles daily- at [employer], around the neighborhood, and/or at work. Reviewed food recall and vitamins. 24 Hour Food Recall (Current) Breakfast - 2 boiled eggs, sausage perez Lunch - 3 oz grilled chicken over lettuce Dinner - protein shake Snacks - 1 c watermelon, protein shake Beverages - 64+ oz water, occasional Gatorade Zero NUTRITION DIAGNOSIS Diagnosis: Overweight/obesity Related to: (hx excessive kcal intake) As evidenced by: BMI 27.80. NUTRITION INTERVENTION Interventions: Motivational interviewing;Goal setting;Self-monitoring;Problem solving;Recommended modifications;Collaboration with other providers Reviewed healthy balance diet for weight loss using protein shakes. Reviewed the foster bariatric diet principles. Further instruction provided for phases of bariatric diet. Reinforced behavior changes for bariatric diet such as no straws and smaller plate. Explained importance of continued bariatric vitamin/mineral and protein supplementation. Pt v/u. Reviewed phase IV foods, portion sizes, max intake of 1 c/meal, limit CHOs to <1/2 c/day and reinforced introducing new foods one at a time to assess tolerance. Reinforced importance of 80+ g protein/day and 64+ oz low kcal, sugar-free, decaf, non-carbonated fluids/day. Reviewed mindful eating te chniques. Reinforced not eating and drinking at same time. Reinforced importance of bariatric MV orMV BID and 500 mg calcium citrate BID at least an hour apart from MV per ASMBS guidelines to prevent nutritional deficiencies. Reinforced physical activity of 150+ minutes weekly to promote weight loss and for cardiovascular benefits. Pt v/u and agreeable to f/u at annual post op. External Barriers to Change: none NUTRITION MONITORING/EVALUATION Nutrient Needs: Goals: Nutrition Goal #1: 80+ g protein daily Nutrition Goal #2: 64+ oz fluids daily Nutrition Goal#3: 150+ min exercise per week Monitor/Evaluation: Monitoring and evaluation: Fluid/beverage intake;Food intake;Protein intake;Carbohydrate intake;Mineral/element intake;Food and nutrition knowledge/skills;Beliefs and attitudes;Adherence;Physical activity;Weight change;Body Mass index RD contact information provided. Pt encouraged to call RD with questions and/or concerns. Evaluation of Overall Compliance Potential: Comprehension: Often Demonstrated Receptivity: Often Demonstrated Adherence: Often Demonstrated Session Information Session Date: 03/16/24 Session beginning time: 955 Session ending time: 100 Session total minutes: 5 Minutes Teaching Method: Explanation;Demonstration;Teach Back Next visit: (annual post op) Total MNT minutes this calendar year: 0 Nutritional Review Cleared, additional RD visits required pre-op ___ Cleared, no additional RD visits required pre-op ___ Not cleared, additional RD visit(s) required pre-op ___ Continue with post op RD visits per protocol _X__ Jerrica Whitaker RD/MOISÉSN documented in this encounter Plan of Treatment Upcoming Encounters Date Type Department Care Team (Late st Contact Info) Description 03/15/2025 10:00 AM CDT Office Visit [facility] Health Weight Management Services [address] [place] [phone] Vianey Llanes, MARINE EXTENSION AGENT-FIRE COORDINATOR [address], [place] [address] 03/15/2025 10:30 AM CDT Clinical Support [facility] Health Weight Management Services [address] [place] [phone] Scheduled Referrals Name Type Priority Associated Diagnoses Orde r Schedule MEDICAL NUTRITION THERAPY REFERRAL Outpatient Referral Routine S/P laparoscopic sleeve gastrectomy 4 Occurrences starting 03/16/2024 until 03/16/2025 documented as of this encounter Visit Diagnoses Diagnosis S/P laparoscopic sleeve gastrectomy- Primary documented in this encounter
--- OUTSIDE RECORDS SUMMARY | 2024-11-04 22:58 | XMS_ITS | Clinical Summary ---
Author Organization [facility] Address [address] [place] [address] Care Team Providers Care Heel Seat Filler Name Role Phone Unavailable Primary Care Provider Unavailabl e Source Comments [facility],non-owned Affiliates and Associated Physician Practices is amultiple site organization consisting of ambulatory clinics and hospital sitesin [place], [place], [place] and [place]. This disclosure is being madepursuant to the Care Everywhere program and may not contain all information available regarding this patient. Last updated 18.[facility] Allergies Active Allergy Reactions Criticality Noted Date Comments Amoxicillin Rash,Unknown Medium 12/08/2018 Iodine Urticaria High 01/24/2023 Medications * Be aware that medications may not be up to date on this document. Alwaysverify current medications with the patient. Medication Sig Dispensed Refills Start Date End Date Status Multiple Vitamins-Minerals (CENTRUM SILVER PO) Activ e CALCIUM CITRATE PO Active nystatin (MYCOSTATIN) 174140 UNIT/GM cream Apply to affected area 2 times daily 15 g 2 03/10/2022 Active Additional Information Patient not taking.Reported on 03/09/2023 vitamin D, ergocalciferol, (Drisdol) 1.25 MG (57170 UT) capsuleIndications: Vitamin D Deficiency Take 1 (one) capsule by mouth every 7 days Reasons: Vitamin D Deficiency 4 capsule 3 01/03/2023 Active Active Problems Problem Noted Date Diagnosed Date Diverticulitis 06/01/2019 Edema of lower extremity 05/13/2017 Anxiety 10/20/2016 Backache 01/23/2014 Esophageal reflux 11/22/2012 Resolved Problems Problem Noted Date Diagnosed Date Resolved Date Morbid obesity 03/09/2021 04/10/2021 Preop examination 06/26/2021 Pre-op exam 06/26/2021 Family History Medical History Relation Name Comments CVA Father Hypertension Father Hypertension Mother Relation Name Status Comments Father Mother Social History Tobacco Use Types Packs/Day Years Used Date Smoking Tobacco: Former Cigarettes Q uit: 06/2020 Smokeless Tobacco: Never Tobacco Cessation:Counseling Given: Not Answered Alcohol Use Standard Drinks/Week Comments Yes 0 [...] Sex Assigned at Female 11/25/2020 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 Gender Identity Female 11/25/2020 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 Sexual Orientation Straight 02/02/2021 4: 18 PM CDT Last Filed Vital Signs Vital Sign Reading Time Taken Comments Blood Pressure 150/100 03/16/2024 9:25 AM CDT Pulse 60 03/16/2024 9:00 AM CDT Temperature 36.3 ??C (97.3 ??F) 03/16/2024 9:00 AM CD T Respiratory Rate 16 03/16/2024 9:00 AM CDT Oxygen Saturation 95% 03/16/2024 9:00 AM CDT Inhaled Oxygen Concentration 21% 03/09/2021 8 :00 PM CDT Weight 71.2 kg (156 lb 14.4 oz) 03/16/2024 9:53 AM CDT Height 160 cm (5' 2.99 ) 03/16/2024 9:53 AM CDT Body Mass Index 27.8 03/16/2024 9:53 AM CDT Plan of Treatment Upcoming Encounters Date Type Department Care Team (Late st Contact Info) Description 03/15/2025 10:00 AM CDT Office Visit [facility] Health Weight Management Services [address] [place] [phone] Vianey Llanes, LICENSED OPTICIAN-EDI ARCHITECT [address] [place] [address] 03/15/2025 10:30 AM CDT Clinical Support [facility] Weight Management Services [address] [place] [phone] Health Maintenance Due Date Last Done Comments COLOGUARD (AGES 45-75) - COLON CA SCREENING 1975 COLON MONITORING 1975 COLONOSCOPY - COLON CA SCREENING 1975 CT COLONOGRAPHY - COLON CA SCREENING 1975 Colorectal Cancer Screening 1975 FIT - COLON CA SCREENING 1975 FLEX SIG - COLON CA SCREENING 1975 LIPID TESTING 1975 PAP SMEAR 1975 HIV SCREENING 1991 HEPATITIS C SCREENING 09/04/1994 DTAP/TDAP/TD VACCINES (1 - Tdap) 1995 HEPATITIS B VACCINE (1 of 3 - 19+ 3-dose series) 1995 MAMMOGRAM 08/19/2022 08/19/2020, 08/19/2020 SCREENING FOR DIABETES 03/16/2024 , 03/10/2021, 03/10/2021, Additional history exists COVID-19 VACCINE ( season) 2024 INFLUENZA VACCINE (#1) 2024 ZOSTER VACCINE (1 of 2) 2026 DEPRESSION SCREENING Completed 03/16/2024 HIB VACCINE Aged Out No longer eligi ble based on patient's age to complete this topic HPV VACCINE Aged Out No longer eligi ble based on patient's age to complete this topic MENINGOCOCCAL VACCINE Aged Out No diana denae eligible based on patient's age to complete this topic PNEUMOCOCCAL VACCINE Aged Out No long er eligible based on patient's age to complete this topic Procedures Procedure Name Priority Date/Time Associated Diagnosis Comments COMPREHENSIVE METABOLIC PANEL Routine 03/10/2021 4:13 AM CDT from Last 3 Months or Most Recently Relevant to Health Maintenance Results * (ABNORMAL) COMPREHENSIVE METABOLIC PANEL (03/10/2021 4:13 AM CDT) [facility] Glucose 101 70 - 125 mg/dL 03/10/2021 4:57 AM [facility] Sodium 139 136 - 145 mmol/L 03/10/2021 4:57 AM [facility] Potassium 3.5 3.4 - 4.5 mmol/L 03/10/2021 4:57 AM [facility] Chloride 106 98 - 107 mmol/L 03/10/2021 4:57 AM [facility] CO2 22 22 - 29 mmol/L 03/10/2021 4:57 AM [facility] Calcium 8.7 8.4 - 10.2 mg/dL 03/10/2021 4:57 AM [facility] Anion Gap 15 10 - 20 mmol/L 03/10/2021 4:57 AM [facility] BUN 8.7(L) 9.8 - 20.1 mg/dL 03/10/2021 4:57 AM [facility] Creatinine 0.91 0.57 - 1.11 mg/dL 03/10/2021 4:57 AM [facility] eGFR by MDRD >60 >60 mL/min/1.7 3m2 03/10/2021 4:57 AM [facility] eGFR by MDRD >60 >60 mL/min/1.7 3m2 03/10/2021 4:57 AM [facility] Alkaline Phosphatase 47 40 - 150 U/L 03/10/2021 4:57 AM [facility] ALT 54 5 - 55 U/L 03/10/2021 4:57 AM [facility] AST 52(H) 5 - 34 U/L 03/10/2021 4:57 AM [facility] Protein Total 6.2(L) 6.4 - 8.3 gm/dL 03/10/2021 4:57 AM [facility] Albumin 3.4(L) 3.5 - 5.0 gm/dL 03/10/2021 4:57 AM [facility] Globulin Total 2.8 2.6 - 4.0 gm/dL 03/10/2021 4:57 AM [facility] Albumin/Globulin Ratio 1.2 0.9 - 1.6 03/10/2021 4:57 AM CDT [facility] Bilirubin Total 0.6 0.2 - 1.2 mg/dL 03/10/2021 4:57 AM CDT [facility] Blood BLOOD SPECIMEN / Unknown Lab Venipuncture / Unknown 03/10/2021 4:13 AM CDT 03/10/2021 4:33 AM CDT Rehan Mendoza MD LAB - CHEMISTRY KARLEE AVINA Performing Organization Address City/State/[facility] Co de Phone Number [facility] [address] from Last 3 Months or Most Recently Relevant to Health Maintenance Advance Directives * Full Code (Latest Code Status on File) Date Activated Date Inactivated Comments 03/09/2021 11:13 AM 03/10/2021 2:16 PM
--- OUTSIDE RECORDS SUMMARY | 2024-11-04 22:58 | XMS_ITS | Encounter Summary ---
Author Organization [facility] Health Address [address] [place] [address] Care Team Providers Care Nursing Program Director Name Role Phone Unavailable Primary Care Provider Unavailabl e Reason for Visit * Reason Comments Bariatric Surgery Follow-up Encounter Details Date Type Department Care Team (Latest Contact Info) Description 03/16/2024 10:00 AM CDT Office Visit [facility] [address] [place] [phone] Vianey Llanes, TEST FACILITY ENGINEER-GIANT TIRE REPAIRER [address] [place] [address] Overweight with body mass index (BMI) of 27 to 27.9 in adult (Primary Dx); S/P laparoscopic sleeve gastrectomy; Iron deficiency; 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); Vitamin B1 deficiency; Vitamin D deficiency; Intestinal malabsorption following gastrectomy (HCC); Pre-op evaluation; History of smoking; Abdominal pannus Social History Tobacco Use Types Packs/Day Years [...] Sex Assigned at Female 11/25/2020 1:10 PM CONFLICT RESOLUTION PROFESSIONAL Gender Identity Female 11/25/2020 1:10 PM CONFLICT RESOLUTION PROFESSIONAL Sexual Orientation Straight 02/02/2021 4: 18 PM CDT documented as of this encounter Last Filed Vital Signs Vital Sign Reading Time Taken Comments Blood Pressure 150/100 03/16/2024 9:25 AM CDT Pulse 60 03/16/2024 9:00 AM CDT Temperature 36.3 ??C (97.3 ??F) 03/16/2024 9:00 AM CD T Respiratory Rate 16 03/16/2024 9:00 AM CDT Oxygen Saturation 95% 03/16/2024 9:00 AM CDT Inhaled Oxygen Concentration - - Weight 71.2 kg (156 lb 14.4 oz) 03/16/2024 9:00 AM CDT Height 160 cm (5' 3 ) 03/16/2024 9:00 AM CDT Body Mass Index 27.79 03/16/2024 9:00 AM CDT documented in this encounter Functional [...] as of this encounter Progress Notes * Vianey Llanes APRN-GIANT TIRE REPAIRER - 03/16/2024 9:15 AM CDT [facility] [place] [address] . . Date of encounter: 03/16/2024 Pt Name: Maria Del Carmen Ray : 1975 AGE: [age] year old SEX: female CSN: [id number] Visit type: Bariatric Post Operative visit Patients Primary care provider is : YADIRA Apodaca (Inactive) Subjective: Maria Del Carmen Ray presents to the clinic 3 year following sleeve gastrectomy. she was seen in clinic last on 03/09/2023. Patient is taking 60 grams of proteins supplements daily. Patient is encouraged to attend support group meeting. Patient is taking 120 oz of fluid per day. Doing 60-120 minutes of exercise daily; walking. Patient is taking multivitamins; CS bid Patient is not having Reflux, Vomiting, Dysphagia, and Abdominal Pain, The patient is not having any pain.. Bowel movement are Abnormal, constipation at times. Has the patient been readmitted to the hospital since the last follow up ? No Has the patient had any post bariatric surgical operations or interventions performed since the last follow up? No Weight History: Initial Weight: 255.6 lb. BMI 45.29 Date: 08/13/2020 09/17/2020 Weight: 249 lb (112.9 kg) BMI (Calculated): 44.12 Weight Loss since last visit in lbs : 6.6 lb Total Wt Loss in lb: 6.6 lb 10/21/2020 Weight: 245 lb (111.1 kg)(per pt ) BMI (Calculated): 43.41 Weight Loss since last visit in lbs : 4 lb Total Wt Loss in lb: 10.6 lb 11/25/2020 Weight: 242 lb (109.8 kg)(per pt) BMI (Calculated): 42.88 Weight Loss since last visit inlbs : 3 lb Total Wt Loss in lb: 13.6 lb 01/01/2021 Weight: 241 lb 9.6 oz (109.6 kg)(per pt) BMI (Calculated): 42.81 Weight Loss since last visit in lbs : 0.4 lb Total Wt Loss in lb: 14 lb 01/13/2021 Weight: 238 lb 4.8 oz (108.1 kg) BMI (Calculated): 42.22 Weight Loss since last visit in lbs : 3.3 lb Total Wt Loss in lb: 17.3 lb 03/04/2021 Weight: 237 lb (107.5 kg) (per pt) BMI (Calculated): 41.99 Weight Loss since last visit in lbs : 1.3 lb Total Wt Loss in lb: 18.6 lb 03/18/2021 Weight: 227 lb (103 kg) BMI (Calculated): 40.22 Weight Loss since last visit in lbs : 10 lb Total Wt Loss in lb: 28.6 lb 04/10/2021 Weight: 218 lb (98.9 kg) (per pt) BMI (Calculated): 38.63 Weight Loss since last visit in lbs : 9 lb Total Wt Loss in lb: 37.6 lb Video Visit 3 month s/p Sleeve 06/24/2021 Weight: 194 lb (88 kg) BMI (Calculated): 34.37 Weight Loss since last visit in lbs : 24 lb Total Wt Loss in lb: 61.6 lb 11/03/2021 Weight: 183 lb 6.4 oz (83.2 kg) BMI (Calculated): 32.5 Weight Loss since last visit in lbs : 10.6 lb Total Wt Loss in lb: 72.2 lb 04/08/2022 Weight: 174 lb (78.9 kg) (Per pt) BMI (Calculated): 30.83 Weight Loss since last visit in lbs : 9.4 lb Total Wt Loss in lb: 81.6 lb 08/04/2022 Weight: 172 lb 8 oz (78.2 kg) BMI (Calculated): 30.56 Weight Loss since last visit in lbs: 10.9 lb Total Wt Loss in lb: 83.1 lb 11/11/2022 Weight: 75.8 kg (167 lb) (per pt) BMI (Calculated): 29.59 Weight Loss since last visit in lbs : 5.8 lb Total Wt Loss in lb: 88.6 lb 12/23/2022 Weight: 73.9 kg (163 lb) BMI (Calculated): 28.88 Weight Loss since last visit in lbs : 4 lb Total Wt Loss in lb: 92.6 lb 01/13/2023 Weight: 72.9 kg (160 lb 12.8 oz) BMI (Calculated): 28.49 Weight Loss since last visit in lbs : 2.2 lb Total Wt Loss in lb: 94.8 lb 03/09/2023 Weight: 72.5 kg (159 lb 12.8 oz) BMI (Calculated): 28.31 Weight Loss since last visit in lbs : 1 lb Total Wt Loss in lb: 95.8 lb 03/16/2024 Weight: 71.2 kg (156 lb 14.4 oz) BMI (Calculated): 27.8 Weight Loss since last visit in lbs : 3 lb Total Wt Loss in lb: 98.8 lb Obesity History Years at current weight? 13 Years at 35 pounds overweight? 13 Years 100 pounds overweight? Age patient started to diet? 41 Maximum weight reached? 255 Most significant weight loss: Amount of weight loss 20lb Months weight loss sustained 2 months Method of weight loss phentermine BMI: Body mass index is 27.79 kg/m??. Past Medical History: Diagnosis Date GERD (gastroesophageal reflux disease) HTN (hypertension) Morbid obesity (HCC) 03/09/2021 Past Surgical History: Procedure Laterality Date Appendectomy 03/1999 ENDOSCOPY, UPPER ENDOSCOPY, UPPER N/A 02/02/2021 N/A; ESOPHAGOGASTRODUODENOSCOPY WITH BIOPSY ENDOSCOPY, UPPER 02/23/2021 ESOPHAGOGASTRODUODENOSCOPY WITH BIOPSY ENDOSCOPY, UPPER N/A 12/08/2022 N/A; ESOPHAGOGASTRODUODENOSCOPY with BIOPSY Gastrectomy N/A 03/09/2021 N/A; LAPAROSCOPIC SLEEVE GASTRECTOMY Hysterectomy 12/2018 partial Social history: Social History Socioeconomic History Marital status: Single Spouse name: Not on file Number of children: Not on file Years of education: Not on file Highest education level: Not on file Occupational History Not on file Tobacco Use Smoking status: Former Types: Cigarettes Quit date: 06/2020 Years since quittin.7 Smokeless tobacco: Never Vaping Use Vaping Use: Never used Substance and Sexual Activity Alcohol use: Yes Comment: occ wine Drug use: Never Sexual activity: Not on file Other Topics Concern Not on file Social History Narrative Not on file Social Determinants of Health Financial Resource Strain: Not on file Food Insecurity: Not on file Transportation Needs: Not on file Stress: Not on file Housing Stability: Not on file Family History: Family History Problem Relation Name Age of Onset Hypertension Mother Hypertension Father CVA Father Medications: Outpatient Medications Marked as Taking for the 03/16/24 encounter (Office Visit) with Ritika Llanes APRN-CNP Medication Sig Multiple Vitamins-Minerals (CENTRUM SILVER PO) vitamin D, ergocalciferol, (Drisdol) 1.25 MG (31999 UT) capsule Take 1 (one) capsule by mouth every7 days Reasons: Vitamin D Deficiency (Not in a hospital admission) Allergy: Allergies Allergen Reactions Amoxicillin Rash and Unknown Iodine Urticaria ROS: A comprehensive review of systems was negative except as described in HPI. Objective: BP (!) 150/100 Pulse 60 Temp 97.3 ??F (36.3 ??C) (Temporal) Resp 16 Ht 1.6 m (5' 3 ) Wt 71.2 kg (156 lb 14.4 oz) SpO2 95% Weight: 71.2 kg (156 lb 14.4 oz) Height: 160 cm (5' 3 ) Body mass index is 27.79 kg/m??. Constitutional: Alert, awake and oriented without any apparent discomfort. Eyes: Anicteric. No subconjunctival hemorrhage. Neck Exam: Supple. Trachea midline. No thyromegaly. No cervical or supraclavicular lymphadenopathy. Respiratory: Lungs were clear to auscultation bilaterally. No rales, rhonchi. Cardiovascular: Regular rate and rhythm. No rub, murmur or gallop Abdomen: Abdomen was obese, soft, non tender, non distended. No palpable visceromegaly. No palpableventral hernias. Wound healing well. Skin: Mad[place] and moist. No ulcers, rashes, or lesions. Extremities: Well perfused. No gross joint deformity noted Neurological: Cranial nerves 2-12 were grossly intact. Psychiatric: The patient's mood and affect appeared to be appropriate Labs Recent Labs Component Name 03/10/2141203/09/21 1005 WBC 10.7* 9.7 RBC 4.37 4.19 HGB 13.3 12.9 HCT 39.7 38.6 PLTCOUNT 243 220 Recent Labs Component Name 03/10/2141203/09/21 1005 SODIUM 139 139 POTASSIUM 3.5 3.8 CO2 22 22 BUN 8.7* 11.7 CREATININE 0.91 0.96 Recent Labs Component Name 03/10/2141203/09/21 1005 GLUCOSE 101 107 Recent Labs Component Name 03/10/2141203/09/21 1005 AST 52* 42* ALT 54 50 No results for input(s): LDL , HDL , TRIG , TSH in the last 59855 hours. No results for input(s): HGBA1C in the last 00539 hours. No results for input(s): PT , PTT , INR , TSH in the last 77569 hours. No results for input(s): TSH in the last 81332 hours. Recent Labs Component Name 12/30/22 1030 IRON 98 No results for input(s): [id number] in the last 32820 hours. No results for input(s): VITAMINA in the last 05043 hours. Recent Labs Component Name 12/30/22 1030 IRON 98 No results for input(s): VITK1 in the last 26513 hours. No results for input(s): [id number] in the last 12036 hours. No results for input(s): ALPHATOCOPH in the last 61765 hours. No results for input(s): GAMMATOCOPH in the last 59414 hours. No results for input(s): MAGMGDL in the last 04586 hours. Recent Labs Component Name 03/10/21 0413 PHOS 2.5 Some lab results will be in paper format so may be scanned in the EMR. Imaging studies No results found. Some Imaging studies results will be in paper format so may be scanned in the EMR. Assessment and Plan Overweight: Change in weight as noted in the weight history above. Total weight loss since starting the program:98.8 pounds Current BMI Body mass index is 27.79 kg/m??. with weight of Weight: 71.2 kg (156 lb 14.4 oz) . Patient was recommended to take about 80 g of protein per day, and get involved in an exercise plan. The patient is also recommended to attend support group meetings.I also explained to her that she should take 2 adult multivitamin tablets, and 1500 mg of calcium citrate daily, starting 1 week after surgery. Patient was made aware of the nutrition deficiency should she fail to take supplementation. BMI of 27.80 Surgery : s/p: Laparoscopic Sleeve Gastrectomy. Date of surgery 03/09/2021 @ [facility] byDr. Mendoza. History of pyloric ulcer Patient underwent postoperative EGD 12/08/22 noting normal duodenum, normal gastric antrum, evidence of sleeve gastrectomy initiated 8 cm proximal to the pylorus with no evidence of tight angulation atthe incisura and no retained fundus. She had no hiatal hernia. She had normal Z-line with normal esophagus and normal cords. Antral biopsy showed no histopathologic abnormality. H pylori negative. She is not currently taking antacid medication. Colon cancer screening Last colonoscopy was 08/25/[address] Bailey at [facility] in [facility]. Shewas recommended repeat colonoscopy in 5 years, 2026. History of Smoking addiction She stopped smoking in June 2020. She denies smoking at this time. Explained to her the risk of development of complications with smoking after bariatric surgery. Vitamin D Deficiency Vitamin-D level was low with labs completed in December 2022. Patient is compliant with her multivitamin and is currently taking weekly dose. Will obtain updated labs History of Hyperparathyroidism Repeat PTH level was normal with labs completed December 2022. Will obtain updated lab History of iron deficiency Patient has history of iron deficiency. She is on current supplementation. Iron profile normal in December 2022. Patient is not on current supplementation but compliant with her multivitamin. Will obtain updated labs History of Vitamin B1 deficiency Patient had low, normal vitamin B1 level on labs completed 02/18/2022. B1 normal on 12/30/2022. She is compliant with her multivitamin, centrum Silver 1 tablet twice daily. Will obtain updated lab Abdominal pannus Patient has significant abdominal pannus following weight loss after bariatric surgery. Patient reports issues with moisture within the skin folds. Patient reports fungal issues within the umbilicus.Patient keeps the area is clean and dry as possible. Patient has use nystatin powder to help with these issues. Patient is interested in panniculectomy. Patient was evaluated by Dermatology in March 2023 for nonsurgical options. Will obtain updated pre-albumin and nicotine testing due to history of smoking. Will have patient evaluated by Dr. Schmidt for potential surgical candidate. I counseled the patient on continuing Behavior and Lifestyle Modifications : Eat 1-2 small meals daily and protein supplementation. Recommended to take about 80 g of protein per day. Eliminate high caloric beverages. Do not graze between meals. Portion control, measuring portions, showed portion control plates. Choosing low sugar, high protein items. Reducing stress and emotional eating. Incorporating fruits and vegetables in moderation. Taking 20 minutes to eat a meal. Patient was instructed to keep a food journal. Patient was counseled on the need for routine exercise plan, at least 10 minutes per day. Labs ordered: Routine Vitamin and Lab check. Plan : as above recommendation. Follow up with: Surgeons / PA/ COVERAGE ANALYST : Dr. Schmidt for panniculectomy and annual visit with COVERAGE ANALYST and RD Dietitian: as scheduled. She verbalized understanding and is agreeable to this plan after shared decision making with patient. Vianey Llanes APRN-BLAKE CC: YADIRA Apodaca (Inactive) documented in this encounter Plan of Treatment Upcoming Encounters Date Type Department Care Team (Late st Contact Info) Description 03/15/2025 10:00 AM CDT Office Visit [facility] [address] [place] [phone] Vianey Llanes, BURT-GIANT TIRE REPAIRER [address] [place], [place] [id number] 03/15/2025 10:30 AM CDT Clinical Support [facility] [address] [place] [phone] Scheduled Orders Name Type Priority Associated Diagnoses Orde r Schedule CBC WITH DIFFERENTIAL Lab Routine Overweight with body mass index (BMI) of 27 to 27.9 in adult S/P laparoscopic 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) Expected: 05/20/2024 (Approximate), Expires: 03/16/2025 COMPREHENSIVE METABOLIC PANEL Lab Routine Overweight with body mass index (BMI) of 27 to 27.9 in adult S/P laparoscopic 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) Expected: 05/20/2024 (Approximate), Expires: 03/16/2025 FERRITIN Lab Routine Overweight with body mass index (BMI) of 27 to 27.9 in adult S/P laparoscopic sleeve gastrectomy Iron deficiency Intestinal malabsorption following gastrectomy (HCC) Expected: 05/20/2024 (Approximate), Expires: 03/16/2025 LIPID PROFILE Lab Routine Overweight with body mass index (BMI) of 27 to 27.9 in adult S/P laparoscopic 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) Expected: 05/20/2024 (Approximate), Expires: 03/16/2025 MAGNESIUM BLOOD Lab Routine Overweight with body mass index (BMI) of 27 to 27.9 in adult S/P laparoscopic 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) Expected: 05/20/2024 (Approximate), Expires: 03/16/2025 VITAMIN D 25-HYDROXY Lab Routine Overweight with body mass index (BMI) of 27 to 27.9 in adult 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) Vitamin D deficiency Intestinal malabsorption following gastrectomy (HCC) Expected: 05/20/2024 (Approximate), Expires: 03/16/2025 VITAMIN B12 FOLATE PANEL Lab Routine Overweight with body mass index (BMI) of 27 to 27.9 in adult S/P laparoscopic 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) Expected: 05/20/2024 (Approximate), Expires: 03/16/2025 VITAMIN B1 Lab Routine Overweight with body mass index (BMI) of 27 to 27.9 in adult S/P laparoscopic sleeve gastrectomy Vitamin B1 deficiency Intestinal malabsorption following gastrectomy (HCC) Expected: 05/20/2024 (Approximate), Expires: 03/16/2025 PTH INTACT+CALCIUM Lab Routine Overweight with body mass index (BMI) of 27 to 27.9 in adult 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) Vitamin D deficiency Intestinal malabsorption following gastrectomy (HCC) Expected: 05/20/2024 (Approximate), Expires: 03/16/2025 PHOSPHORUS BLOOD Lab Routine Overweight with body mass index (BMI) of 27 to 27.9 in adult S/P laparoscopic 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) Expected: 05/20/2024 (Approximate), Expires: 03/16/2025 IRON + TRANSFERRIN PANEL Lab Routine Overweight with body mass index (BMI) of 27 to 27.9 in adult S/P laparoscopic sleeve gastrectomy Iron deficiency Intestinal malabsorption following gastrectomy (HCC) Expected: 05/20/2024 (Approximate), Expires: 03/16/2025 NICOTINE + METABOLITES BLOOD Lab Routine Pre-op evaluation History of smoking Abdominal pannus 1 Occurrences starting 03/16/2024 until 03/11/2025 PREALBUMIN Lab Routine Pre-op evaluation History of smoking Abdominal pannus Ordered: 03/16/2024 documented as of this encounter Visit Diagnoses Diagnosis Overweight with body mass index (BMI) of 27 to 27.9 in adult- Primary S/P laparoscopic sleeve gastrectomy Iron deficiency Other disorders of iron metabolism 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) Secondary hyperparathyroidism, non-renal Vitamin B1 deficiency Other and unspecified manifestations of thiamine deficiency Vitamin D deficiency Intestinal malabsorption following gastrectomy (HCC) Pre-op evaluation Preoperative examination, unspecified History of smoking Personal history of tobacco use, presenting hazards to health Abdominal pannus Localized adiposity documented in this encounter
--- OUTSIDE RECORDS SUMMARY | 2024-11-04 22:58 | XMS_ITS | Patient Health Summary ---
Author Organization [facility] Address [address] [place] [address] Care Team Providers Care Engine Builder Name Role Phone Unavailable Primary Care Provider Unavailabl e Note from [facility],non-owned Affiliates and Associated Physician Practices is amultiple site organization consisting of ambulatory clinics and hospital sitesin [place], [place], [place] and [place]. This disclosure is being madepursuant to the Care Everywhere program and may not contain all information available regarding this patient. Last updated 18.[facility] Allergies * Amoxicillin(Rash,Unknown) -Medium Criticality * Iodine(Urticaria) -High Criticality Medications * Be aware that medications may not be up to date on this document. Alwaysverify current medications with the patient. * Multiple Vitamins-Minerals (CENTRUM SILVER PO) * CALCIUM CITRATE PO * nystatin (MYCOSTATIN) [id number] UNIT/GM cream(Started 03/10/2022) Apply to affected area 2 times daily 2 refills by 03/10/2023 * vitamin D, ergocalciferol, (Drisdol) 1.25 MG (14253 UT) capsule(Started 01/03/2023) Take 1 (one) capsule by mouth every 7 days Reasons: Vitamin D Deficiency 3 refills by 01/03/2024 Active Problems Problem Noted Date Diagnosed Date Diverticulitis 06/01/2019 Edema of lower extremity 05/13/2017 Anxiety 10/20/2016 Backache 01/23/2014 Esophageal reflux 11/22/2012 Resolved Problems Problem Noted Date Diagnosed Date Resolved Date Morbid obesity 03/09/2021 04/10/2021 Preop examination 06/26/2021 Pre-op exam 06/26/2021 Social History Tobacco Use Types Packs/Day Years [...] Sex Assigned at Female 11/25/2020 1:10 PM [employer] Gender Identity Female 11/25/2020 1:10 PM [employer] Sexual Orientation Straight 02/02/2021 4: 18 [...] Mass Index 27.8 03/16/2024 9:53 AM CDT Procedures * LAB MISC TEST(Performed 03/22/2023) * NICOTINE + METABOLITES BLOOD(Performed 12/30/2022) Performed for History of tobacco use * VITAMIN B1(Performed 12/30/2022) Performed for S/P laparoscopic sleeve gastrectomy, Vitamin B1 deficiency * PTH INTACT+CALCIUM(Performed 12/30/2022) Performed for Vitamin D deficiency, S/P laparoscopic sleeve gastrectomy, Hyperparathyroidism due tovitamin D deficiency (CMS/HCC) * VITAMIN D 25-HYDROXY(Performed 12/30/2022) Performed for Vitamin D deficiency, S/P laparoscopic sleeve gastrectomy, Hyperparathyroidism due tovitamin D deficiency (CMS/HCC) * IRON + TRANSFERRIN PANEL(Performed 12/30/2022) Performed for S/P laparoscopic sleeve gastrectomy, Iron deficiency * CARDIAC RHYTHM STRIP ORDER(Performed 12/09/2022) * GROSS + MICRO EXAM (ILL)(Performed 12/08/2022) Performed for Gastroesophageal reflux disease, unspecified whether esophagitis present, S/P bariatric surgery * AK EGD FLEX TRANSORAL W BX SNGL OR MULT(Performed 12/08/2022) Performed for Gastroesophageal reflux disease, unspecified whether esophagitis present, S/P bariatric surgery * LAB MISC TEST(Performed 02/18/2022) * LAB MISC TEST(Performed 07/29/2021) * LAB MISC TEST(Performed 07/29/2021) * CARDIAC RHYTHM STRIP ORDER(Performed 03/11/2021) * GLUCOSE - POINT OF CARE(Performed 03/10/2021) * GLUCOSE - POINT OF CARE(Performed 03/10/2021) * GLUCOSE - POINT OF CARE(Performed 03/10/2021) * PHOSPHORUS BLOOD(Performed 03/10/2021) * MAGNESIUM BLOOD(Performed 03/10/2021) * COMPREHENSIVE METABOLIC PANEL(Performed 03/10/2021) * CBC W AUTO DIFFERENTIAL(Performed 03/10/2021) * GLUCOSE - POINT OF CARE(Performed 03/10/2021) * GLUCOSE - POINT OF CARE(Performed 03/09/2021) * MAGNESIUM BLOOD(Performed 03/09/2021) * GLUCOSE - POINT OF CARE(Performed 03/09/2021) * GLUCOSE - POINT OF CARE(Performed 03/09/2021) * GLUCOSE - POINT OF CARE(Performed 03/09/2021) * PHOSPHORUS BLOOD(Performed 03/09/2021) * MAGNESIUM BLOOD(Performed 03/09/2021) * COMPREHENSIVE METABOLIC PANEL(Performed 03/09/2021) * CBC W AUTO DIFFERENTIAL(Performed 03/09/2021) * GROSS + MICRO EXAM (ILL)(Performed 03/09/2021) Performed for Morbid obesity (HCC) * AK LAP SLEEVE GASTRECTOMY(Performed 03/09/2021) Performed for Morbid obesity (HCC) * BLOOD TYPE VERIFICATION(Performed 03/06/2021) * TYPE + SCREEN PANEL(Performed 03/06/2021) Performed for Pre-op exam * SARS-COV-2 (COVID-19) IN HOUSE(Performed 03/06/2021) Performed for Pre-op exam * SARS-COV-2 (COVID-19) PANEL (SOIL)(Performed 03/06/2021) Performed for Pre-op exam * GROSS + MICRO EXAM (ILL)(Performed 02/23/2021) Performed for Gastroesophageal reflux disease, unspecified whether esophagitis present * AK EGD FLEX TRANSORAL W BX SNGL OR MULT(Performed 02/23/2021) Performed for Gastroesophageal reflux disease, unspecified whether esophagitis present * SARS-COV-2 (COVID-19) IN HOUSE(Performed 02/20/2021) Performed for Pre-operative laboratory examination * SARS-COV-2 (COVID-19) PANEL (SOIL)(Performed 02/20/2021) Performed for Pre-operative laboratory examination * GROSS + MICRO EXAM (ILL)(Performed 02/02/2021) Performed for Gastroesophageal reflux disease, unspecified whether esophagitis present * AK EGD FLEX TRANSORAL W BX SNGL OR MULT(Performed 02/02/2021) Performed for Gastroesophageal reflux disease, unspecified whether esophagitis present * SARS-COV-2 (COVID-19) IN HOUSE(Performed 01/30/2021) Performed for Preop examination * SARS-COV-2 (COVID-19) PANEL (SOIL)(Performed 01/30/2021) Performed for Preop examination * NICOTINE + METABOLITES BLOOD(Performed 01/08/2021) * NICOTINE + METABOLITES BLOOD(Performed 12/18/2020) Results * LAB MISC TEST (03/22/2023) Only the most recent of4 resultswithin the time period is included. Blood BLOOD SPECIMEN / Unknown Historical Provider MD LAB SEND OUT * (ABNORMAL) PTH INTACT+CALCIUM (12/30/2022 10:30 AM [employer]) [facility] PTH Intact 39 15 - 65 pg/mL 01/01/2023 1:23 PM [employer] [facility] ([facility]) Calcium 10.1(H) 8.6 - 10.0 mg/dL 01/01/2023 1:23 PM [employer] [facility] ([facility]) Comment: Performed By: [place] [address] Used Car Lot Attendant: Zach Bello MD, PhD Blood BLOOD SPECIMEN / Unknown Lab Venipuncture / Unknown 12/30/2022 10:30 AM [employer] 12/30/2022 10:41 AM [employer] Vianey Llanes [facility] LAB - CHEMISTRY ORDERABLES Performing Organization Address [facility]/ZIP Co de Phone Number [facility]) [address] [place] [address] * VITAMIN B1 (12/30/2022 10:30 AM [employer]) [facility] Vitamin B1 Whole Blood 111 70 - 180 nmol/L 01/03/2023 7:30 AM [employer] [facility] ([facility]) Comment: INTERPRETIVE INFORMATION: Vitamin B1, Whole Blood This assay measures the concentration of thiamine diphosphate (TDP), the primary active form of vitamin B1. Approximately 90 percent of vitamin B1 present in whole blood is TDP. Thiamine and thiamine monophosphate, which comprise the remaining 10 percent, are not measured. This test was developed and its performance characteristics determined by [facility]. It has not been cleared or approved by the US Food and Drug Administration. This test was performed in a CLIA certified laboratory and is intended for clinical purposes. Performed By: [place] [address] [employer] Attendant: Zach Bello MD, PhD Blood BLOOD SPECIMEN / Unknown Lab Venipuncture / Unknown 12/30/2022 10:30 AM [employer] 12/30/2022 10:41 AM [employer] Vianey VIVAS LAB - CHEMISTRY ORDERABLES Performing Organization Address City/[facility]/ZIP Co de Phone Number [facility]) [address] [place] [address] * (ABNORMAL) VITAMIN D 25-HYDROXY (12/30/2022 10:30 AM [facility]) Vitamin D, 25 Hydroxy 28.2(L) 30 - 100 ng/mL 12/30/2022 11:[address] [facility] Blood BLOOD SPECIMEN / Unknown Lab Venipuncture / Unknown 12/30/2022 10:30 AM [employer] 12/30/2022 10:41 AM [employer] Narrative [facility] - 12/30/2022 11:22 AM [facility] Reference Values: The recommendation for 25-Hydroxy Vitamin D clinical decision points are as follows: Deficient ? < 20.0 ng/mL Insufficient ? 20.0-29.9 ng/mL Sufficient ? 30.0-100.0 ng/mL Potential Toxicity ? >100 ng/mL Reference: The Endocrine Society Clinical Practice Guidelines. 2011 If the 25-Hydroxy Vitamin D results are inconsistent with clinical evidence, it is recommended that follow-up testing using a method such as LC-MS/MS be performed to confirm the result. Vianey Llanes PEDIATRIC RADIOLOGIST-PRODUCT TECHNOLOGY SCIENTIST LAB - CHEMISTRY ORDERABLES Performing Organization Address [facility]/State/[facility] Co de Phone Number [facility] [address] * NICOTINE + METABOLITES BLOOD (12/30/2022 10:30 AM [facility]) Only the most recent of3 resultswithin the time period is included. Pathologist [facility] Nicotine <5 ng/mL 01/04/2023 1:35 AM [facility] ([facility]) Comment: Consistent with abstinence from nicotine-containing products for at least 1 week. INTERPRETIVE INFORMATION: Nicotine and Metabolites, ?Serum or Plasma, ?Quantitative Methodology: Quantitative Liquid Chromatography-Tandem Mass Spectrometry Positive cutoff: 5 ng/mL For medical purposes only; not valid for forensic use. This test is designed to evaluate recent use of nicotine-containing products. ??Passive and active exposure cannot be discriminated definitively, although a cutoff of 10 ng/mL cotinine is frequently used for surgery qualification purposes. ?? For smoking cessation programs or compliance testing, the absence of expected drug(s) and/or drug metabolite(s) may indicate non-compliance, inappropriate timing of specimen collection relative to drug administration, poor drug absorption, or limitations of testing. This test cannot distinguish between use of tobacco and purified nicotine products. The concentration value must be greater than or equal to the cutoff to be reported as positive. ?? This test was developed and its performance characteristics determined by [facility]. It has not been cleared or approved by the US Food and Drug Administration. This test was performed in a CLIA certified laboratory and is intended for clinical purposes. Performed By: [place] [address] [employer] Attendant: Zach Bello MD, PhD Cotinine <5 ng/mL 01/04/2023 1:35 AM [facility]) Blood BLOOD SPECIMEN / Unknown Lab Venipuncture / Unknown 12/30/2022 10:30 AM [facility] 12/30/2022 10:41 AM [facility] Raisa Schmidt MD LAB - CHEMISTRY ORDERABLES [facility]) [address] [place] [address] * IRON + TRANSFERRIN PANEL (12/30/2022 10:30 AM [facility]) Iron 98 50 - 170 ug/dL 12/30/2022 11:[address] [facility] Transferrin 275 180 - 382 mg/dL 12/30/2022 11:[address] [facility] TIBC Calculated 344 261 - 497 ug/dL 12/30/2022 11:[address] [facility] Iron Saturation % 29 11 - 45 % 12/30/2022 11:[address] [facility] Blood BLOOD SPECIMEN / Unknown Lab Venipuncture / Unknown 12/30/2022 10:30 AM [employer] 12/30/2022 10:41 AM [employer] Vianey Ruth Shraddha PEDIATRIC RADIOLOGIST-PRODUCT TECHNOLOGY SCIENTIST LAB - CHEMISTRY ORDERABLES [facility] [address] * CARDIAC RHYTHM STRIP ORDER (12/09/2022 12:15 PM [employer]) Only the most recent of2 resultswithin the time period is included. Narrative 12/09/2022 12:15 PM [employer] Ordered by an unspecified provider. Scanned Document CARDIAC SERVICES ORD ERABLES * GROSS + MICRO EXAM (ILL) (12/08/2022 9:16 AM [employer]) Only the most recent of4 resultswithin the time period is included. Case Report Surgical Pathology Report ? Case: [id number] ? Authorizing Provider: ??Raisa Schmidt MD ??Collected: ? 12/08/2022 09:16 AM ? Ordering Location: ? [facility] ?Received: ?12/08/2022 02:21 PM ? Pathologist: ? Chuckie Lujan MD ? Specimen: ?Antrum Biopsy, Antrum Biopsy to rule out H. pylori ? 12/09/2022 11:00 AM [employer] [facility] Final Diagnosis Stomach, antrum, biopsy: - Fragments of antral mucosa with no histopathologic abnormality - No Helicobacter pylori organisms identified (H&E exam) 12/09/2022 11:[address] [facility] Microscopic Description and Comment Microscopic examination is performed and substantiates the above diagnosis. 12/09/2022 11:[address] [facility] Clinical History Gastroesophageal reflux disease, status post bariatric surgery Findings: - normal duodenum -normal gastric antrum -evidence of sleeve gastrectomy initiated 8 cm proximal to the pylorus with no evidence of tight angulation at the incisura and no retained fundus -no hiatal hernia -normal Z-line -normal esophagus -normal cords 12/09/2022 11:[address] [facility] Gross Description The requisition and specimen(s) are identified with the patient's name (Maria Del Carmen Ray), MRN, and . Received in formalin, specimen antrum biopsy to rule out H. Pylori , are 2 crow-pink tissues, 0.4 x 0.3 x 0.1 cm and 0.8 x 0.2 x 0.1 cm. The specimen is submitted in toto in cassette A1. AW 12/09/2022 11:[address] [facility] Disclaimer The performance characteristics of all immunohistochemical and indirect immunofluorescence stains (if any) cited in this report were determined by the Histopathology Laboratory of [facility]. Some of these tests were developed by our own laboratory and have not been cleared or approved by the US Food and Drug Administration. The FDA does not require this test to go through premarket FDA review. These tests are used for clinical purposes. They should not be regarded as investigational or for research. This laboratory is certified under the Clinical Laboratory Improvement Amendments (CLIA) as qualified to perform high complexity clinical laboratory testing. H&E slides and special stains prepared at [facility], [place]. [address] (CLIA# [id number]) unless otherwise specified. This case was interpreted by the [facility] Department of Pathology. When applicable, select reference laboratory testing is performed at the [facility], [address] [place] [address]. 12/09/2022 11:[address] [facility] Embedded Images 12/09/2022 11:00 AM [employer] [facility] Pathology/Cytology GASTRIC ANTRAL BIOPSY SPECIMEN / Unknown 12/08/2022 9:16 AM [employer] 12/08/2022 2:21 PM [employer] Comment:Pre-op diagnosis: Gastroesophageal reflux disease, unspecified whether esophagitis present [K21.9] S/P bariatric surgery [Z98.84] Raisa Schmidt MD LAB - PATHOLOGY/ CYTOLOGY ORDERABLES Performing Organization Address [facility] Co de Phone Number [facility] [address] [place] [address] * GLUCOSE - POINT OF CARE (03/10/2021 11:41 AM CDT) Only the most recent of8 resultswithin the time period is included. Pathologist [facility] Glucose WB/POC 100 70 - 125 mg/dL 03/10/2021 11:45 AM CDT [facility] Specimen Type Arterial/C apillary 03/10/2021 11:45 AM CDT [facility] Blood BLOOD SPECIMEN / Unknown 03/10/2021 11:41 AM CDT 03/10/2021 11:45 AM CDT Rehan Mendoza MD LAB - POINT OF CARE ORDERABLES Performing Organization Address [facility] de Phone Number [facility] [address] [place] [address] * (ABNORMAL) CBC W AUTO DIFFERENTIAL (03/10/2021 4:13 AM CDT) Only the most recent of2 resultswithin the time period is included. WBC 10.7(H) 4.0 - 10.0 x10E9/L 03/10/2021 4:37 AM CDT [facility] RBC 4.37 3.93 - 5.22 x10E12/L 03/10/2021 4:37 AM CDT [facility] Hemoglobin 13.3 11.2 - 15.7 gm/dL 03/10/2021 4:37 AM CDT [facility] Hematocrit 39.7 34.1 - 44.9 % 03/10/2021 4:37 AM CDT [facility] MCV 90.8 78.0 - 100.0 fl 03/10/2021 4:37 AM [facility] MCH 30.4 25.6 - 34.0 pg 03/10/2021 4:37 AM [facility] MCHC 33.5 32.3 - 36.5 gm/dL 03/10/2021 4:37 AM [facility] RDW 13.3 11.6 - 14.4 % 03/10/2021 4:37 AM [facility] MPV 10.1 9.4 - 12.4 fl 03/10/2021 4:37 AM [facility] Platelet Count 243 163 - 369 x10E9/L 03/10/2021 4:37 AM [facility] Neutrophils % 74.0 40.0 - 75.0 % 03/10/2021 4:37 AM [facility] Lymphocytes % 19.2(L) 19.3 - 53.1 % 03/10/2021 4:37 AM [facility] Monocytes % 6.6 4.7 - 12.5 % 03/10/2021 4:37 AM [facility] Eosinophils % 0.0(L) 0.7 - 7.0 % 03/10/2021 4:37 AM [facility] Basophils % 0.1 0.1 - 1.2 % 03/10/2021 4:37 AM [facility] Immature Granulocytes 0.1 0 - 0.5 % 03/10/2021 4:37 AM [facility] Neutrophil Absolute 7.88(H) 1.56 - 6.13 x10E9/L 03/10/2021 4:37 AM [facility] Lymphocytes Absolute 2.05 1.18 - 3.74 x10E9/L 03/10/2021 4:37 AM [facility] Monocytes Absolute 0.70 0.24 - 0.86 x10E9/L 03/10/2021 4:37 AM [facility] Eosinophils Absolute 0.00(L) 0.04 - 0.54 x10E9/L 03/10/2021 4:37 AM [facility] Basophils Absolute 0.01 0.01 - 0.08 x10E9/L 03/10/2021 4:37 AM [facility] Immature Granulocytes Absolute 0.01 0 - 0.03 x10E9/L 03/10/2021 4:37 AM CDT [facility] nRBC Auto 0 <=0 /100 WBC 03/10/2021 4:37 AM CDT [facility] nRBC Absolute 0.00 <=0 x10E9/L 03/10/2021 4:37 AM T [facility] Blood BLOOD SPECIMEN / Unknown Lab Venipuncture / Unknown 03/10/2021 4:13 AM CDT 03/10/2021 4:33 AM CDT Rehan Mendoza MD LAB - HEMATOLOGY ORD ERABLES [facility] [address] * (ABNORMAL) COMPREHENSIVE METABOLIC PANEL (03/10/2021 4:13 AM T) Only the most recent of2 resultswithin the time period is included. Glucose 101 70 - 125 mg/dL 03/10/2021 4:57 AM [facility] Sodium 139 136 - 145 mmol/L 03/10/2021 4:57 AM [facility] Potassium 3.5 3.4 - 4.5 mmol/L 03/10/2021 4:57 AM [facility] Chloride 106 98 - 107 mmol/L 03/10/2021 4:57 AM [facility] CO2 22 22 - 29 mmol/L 03/10/2021 4:57 AM [facility] Calcium 8.7 8.4 - 10.2 mg/dL 03/10/2021 4:57 AM [facility] Anion Gap 15 10 - 20 mmol/L 03/10/2021 4:57 AM [facility] BUN 8.7(L) 9.8 - 20.1 mg/dL 03/10/2021 4:57 AM [facility] Creatinine 0.91 0.57 - 1.11 mg/dL 03/10/2021 4:57 AM [facility] eGFR by MDRD >60 >60 mL/min/1.7 3m2 03/10/2021 4:57 AM [facility] eGFR by MDRD >60 >60 mL/min/1.7 3m2 03/10/2021 4:57 AM CDT [facility] Alkaline Phosphatase 47 40 - 150 U/L 03/10/2021 4:57 AM CDT [facility] ALT 54 5 - 55 U/L 03/10/2021 4:57 AM CDT [facility] AST 52(H) 5 - 34 U/L 03/10/2021 4:57 AM CDT [facility] Protein Total 6.2(L) 6.4 - 8.3 gm/dL 03/10/2021 4:57 AM CDT [facility] Albumin 3.4(L) 3.5 - 5.0 gm/dL 03/10/2021 4:57 AM CDT [facility] Globulin Total 2.8 2.6 - 4.0 gm/dL 03/10/2021 4:57 AM CDT [facility] Albumin/Globulin Ratio 1.2 0.9 - 1.6 03/10/2021 4:57 AM CDT [facility] Bilirubin Total 0.6 0.2 - 1.2 mg/dL 03/10/2021 4:57 AM CDT [facility] Blood BLOOD SPECIMEN / Unknown Lab Venipuncture / Unknown 03/10/2021 4:13 AM CDT 03/10/2021 4:33 AM CDT Rehan Mendoza MD LAB - CHEMISTRY ORDEfren AVINA Performing Organization Address [facility] de Phone Number [facility] [address] * PHOSPHORUS BLOOD (03/10/2021 4:13 AM CDT) Only the most recent of2 resultswithin the time period is included. Phosphorus 2.5 2.3 - 4.7 mg/dL 03/10/2021 4:58 AM CDT [facility] Blood BLOOD SPECIMEN / Unknown Lab Venipuncture / Unknown 03/10/2021 4:13 AM CDT 03/10/2021 4:33 AM CDT Rehan Mendoza MD LAB - CHEMISTRY KARLEE AVINA Performing Organization Address [facility] Co de Phone Number [facility] [address] * MAGNESIUM BLOOD (03/10/2021 4:13 AM CDT) Only the most recent of3 resultswithin the time period is included. Magnesium 2.1 1.6 - 2.6 mg/dL 03/10/2021 4:58 AM CDT [facility] Blood BLOOD SPECIMEN / Unknown Lab Venipuncture / Unknown 03/10/2021 4:13 AM CDT 03/10/2021 4:33 AM CDT Rehan Mendoza MD LAB - CHEMISTRY KARLEE AVINA [facility] [address] [place] [address] * BLOOD TYPE VERIFICATION (03/06/2021 7:14 AM CDT) ABO Rh O POS 03/06/2021 8:59 AM CDT [facility] Blood Bank BLOOD SPECIMEN / Unknown Lab Venipuncture / Unknown 03/06/2021 7:14 AM CDT 03/06/2021 7:17 AM CDT Aysha Evans MD LAB - BLOOD BANK ORD ERABLES Performing Organization Address City/[facility]/ZIP Co de Phone Number [facility] [address] [place] [address] * TYPE + SCREEN PANEL (03/06/2021 7:12 AM CDT) ABO Rh O POS 03/06/2021 9:20 AM CDT [facility] Antibody Screen NEG 9:20 AM CDT [facility] Blood Bank BLOOD SPECIMEN / Unknown Lab Venipuncture / Unknown 03/06/2021 7:12 AM CDT 03/06/2021 7:17 AM CDT Aysha Evans MD LAB - BLOOD BANK ORD ERABLES [facility] [address] [place] [address] * SARS-COV-2 (COVID-19) IN HOUSE (03/06/2021 6:11 AM CDT) Only the most recent of3 resultswithin the time period is included. COVID-19 PCR Not detected Not detected 03/07/2021 5:24 AM CDT [facility] Microbiology SPECIMEN FROM NASOPHARYNGEAL STRUCTURE / Unknown Collection / Unknown 03/06/2021 6:11 AM CDT 03/06/2021 8:43 AM CDT Narrative [facility] - 03/07/2021 5:24 AM CDT This nucleic acid amplification assay performance was validated by [facility] Microbiology Laboratory. This test has been authorized by the Food and Drug administration (FDA)under an Emergency??Use Authorization (EUA). This test has been validated in accordance with the FDA's guidance document Policy for Diagnostic Testing in Laboratories Certified to perform High Complexity Testing under CLIA prior to Emergency Use Authorization for Coronavirus Disease-2019 during the Public Health Emergency issued on January 05, 2020. FDA independent review of this validation is pending. This test is only authorized for the duration of time the declaration that circumstances exist justifying the authorization of emergency use of in vitro diagnostic tests for detection of SARS-CoV-2 virus and/or diagnosis of COVID-19 infection under section 564(b)(1) of the Act, 21 U.S.C 360bbb-3 (b)(1), unless the authorization is terminated or revoked sooner. Fact Sheets for this EUA assay are available upon request. Rehan Mendoza MD LAB - MICROBIOLOGY O RDERABLES [facility] MICROBIOLOGY [address] [place] [address], [facility] [phone]
--- OUTSIDE RECORDS SUMMARY | 2024-11-04 22:58 | XMS_ITS | Encounter Summary ---
Author Organization [facility] Health Address [address] [place] [address] Care Team Providers Care Heel Seat Fitter Machine Name Role Phone Cass Mast Primary Care Provider [phone] Reason for Visit * Reason Onset Date Comments Follow-up 2023 Pausing patient at this time. 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 No answer and unable to leave voicemail. At this time, after numerous attempts by our office to speakto the patient without success, patient will be paused. documented in this encounter Plan of Treatment Upcoming Encounters Date Type Department Care Team (Late st Contact Info) Description 03/15/2025 10:00 AM CDT Office Visit [facility] Health Weight Management Services [address] [place] [phone] Vianey Llanes, IMMIGRATION OFFICER-VOLUMETRIC WEIGHER [address] [place], [place] [address] 03/15/2025 10:30 AM CDT Clinical Support [facility] Weight Management Services [address] [place] [phone] documented as of this encounter Visit Diagnoses Not on filedocumented in this encounter Care Teams Heel Seat Fitter Machine Relationship Specialty Start Date End Date Cass Mast PA [address] [place] [address] PCP - General Nurse Practitioner Primary Care 01/13/23 03/15/24 documented as of this encounter
--- OUTSIDE RECORDS SUMMARY | 2024-11-04 22:58 | XMS_ITS | Encounter Summary ---
Author Organization [facility] Health Address [address] [place] [address] Care Team Providers Care Marble Mechanic Helper Name Role Phone Unavailable Primary Care Provider Unavailabl e Reason for Visit * Reason Onset Date Comments Appointment 06/27/2024 Encounter Details Date Type Department Care Team (Late st Contact Info) Description 06/27/2024 Telephone [facility] Management Services [address] [place] [phone] Raisa Schmidt MD [address] [place] [address] Appointment Social History Tobacco Use [...] Sex Assigned at Female 11/25/2020 1:10 PM PLANNER Gender Identity Female 11/25/2020 1:10 PM PLANNER Sexual Orientation Straight 02/02/2021 4: 18 PM [...] encounter Miscellaneous Notes * Telephone Encounter - Mare Patel - 06/27/2024 12:51 PM CDT Patient called stating she needs to cancel her appointment for tomorrow. I asked the patient if shewanted to reschedule, and patient declined. She said she will call us back. documented in this encounter Plan of Treatment Upcoming Encounters Date Type Department Care Team (Late st Contact Info) Description 03/15/2025 10:00 AM CDT Office Visit [facility] Weight Management Services [address] [place] [phone] Vianey Llanes, TORCH BURNER-ENVIRONMENTAL FIELD PROFESSIONAL [address] [place] [address] 03/15/2025 10:30 AM CDT Clinical Support [facility] Weight Management Services [address] [place] [phone] documented as of this encounter Visit Diagnoses Not on filedocumented in this encounter
--- OUTSIDE RECORDS SUMMARY | 2024-11-04 22:58 | XMS_ITS | Encounter Summary ---
Author Organization [facility] Health Address [address] [facility] [place] [address] Care Team Providers Care Moose Hunter Name Role Phone Cass Mast Primary Care Provider [phone] Encounter Details Date Type Department Care Team (Late st Contact Info) Description 05/03/2023 Orders Only [facility] Health Weight Management Services [address] [place] [phone] Vianey Llanes, INFORMATION LEAD-CAT HOOKER [address] [place] [address] Vitamin D deficiency Social History Tobacco Use Types Packs/Day [...] Sex Assigned at Female 11/25/2020 1:10 PM SHAREPOINT SPECIALIST Gender Identity Female 11/25/2020 1:10 PM SHAREPOINT SPECIALIST Sexual Orientation Straight 02/02/2021 4: 18 [...] Description 03/15/2025 10:00 AM CDT Office Visit [facility] Health Weight Management Services [address] [place] [phone] Vianey Llanes, INFORMATION LEAD-CAT HOOKER [address] [place] [address] 03/15/2025 10:30 AM CDT Clinical Support [facility] Health Weight Management Services [address] [place] [phone] documented as of this encounter Visit Diagnoses Diagnosis Vitamin D deficiency documented in this encounter Care Teams Moose Hunter Relationship Specialty Start Date End Date Cass Mast PA [address] [place] [address] PCP - General Nurse Practitioner Primary Care 01/13/23 03/15/24 documented as of this encounter
--- OUTSIDE RECORDS SUMMARY | 2024-11-04 22:58 | XMS_ITS | Referral Summary ---
Author Organization [facility] Address [address] [facility] [place] [address] Care Team Providers Care Port Steward Name Role Phone Unavailable Primary Care Provider Unavailabl e Source Comments [facility],non-owned Affiliates and Associated Physician Practices is amultiple site organization consisting of ambulatory clinics and hospital sitesin [place], [place], [place] and [place]. This disclosure is being madepursuant to the Care Everywhere program and may not contain all information available regarding this patient. Last updated 18.[facility] Allergies Active Allergy Reactions Criticality Noted Date Comments Amoxicillin Rash,Unknown Medium 12/08/2018 Iodine Urticaria High 01/24/2023 Medications * Be aware that medications may not be up to date on this document. Alwaysverify current medications with the patient. Medication Sig Dispensed Refills Start Date End Date Status Multiple Vitamins-Minerals (CENTRUM SILVER PO) Activ e CALCIUM CITRATE PO Active nystatin (MYCOSTATIN) 623770 UNIT/GM cream Apply to affected area 2 times daily 15 g 2 03/10/2022 Active Additional Information Patient not taking.Reported on 03/09/2023 vitamin D, ergocalciferol, (Drisdol) 1.25 MG (66865 UT) capsuleIndications: Vitamin D Deficiency Take 1 [...] Sex Assigned at Female 11/25/2020 1:10 PM BIOLOGICAL SCIENCE TECHNICIAN FISH Gender Identity Female 11/25/2020 1:10 PM BIOLOGICAL SCIENCE TECHNICIAN FISH Sexual Orientation Straight 02/02/2021 4: 18 PM [...] Mass Index 27.8 03/16/2024 9:53 AM CDT Functional Status Functional Status Response Date of [...] person have difficulty concentrating/remembering/making decisions? No 12/08/2022 Plan of Treatment Upcoming Encounters Date Type Department Care Team (Late st Contact Info) Description 03/15/2025 10:00 AM CDT Office Visit [facility] Weight Management Services [address] [place] [phone] Vianey Llanes, SUPERINTENDENT CAR CONSTRUCTION-HOSTED SERVICES ANALYST [address] [place] [address] 03/15/2025 10:30 AM CDT Clinical Support [facility] [address] [place] [address] Procedures Procedure Name Priority Date/Time Associated Diagnosis Comments COMPREHENSIVE METABOLIC PANEL Routine 03/10/2021 4:13 AM CDT from Last 3 Months or Most Recently Relevant to Health Maintenance Results * (ABNORMAL) COMPREHENSIVE METABOLIC PANEL (03/10/2021 4:13 AM CDT) [facility] Glucose 101 70 - 125 mg/dL 03/10/2021 4:57 AM CDT [facility] Sodium 139 136 - 145 mmol/L 03/10/2021 4:57 AM CDT [facility] Potassium 3.5 3.4 - 4.5 mmol/L 03/10/2021 4:57 AM CDT [facility] Chloride 106 98 - 107 mmol/L 03/10/2021 4:57 AM CDT [facility] CO2 22 22 - 29 mmol/L 03/10/2021 4:57 AM CDT [facility] Calcium 8.7 8.4 - 10.2 mg/dL 03/10/2021 4:57 AM CDT [facility] Anion Gap 15 10 - 20 mmol/L 03/10/2021 4:57 AM T [facility] BUN 8.7(L) 9.8 - 20.1 mg/dL 03/10/2021 4:57 AM CDT [facility] Creatinine 0.91 0.57 - 1.11 mg/dL 03/10/2021 4:57 AM CDT [facility] eGFR by MDRD >60 >60 mL/min/1.7 3m2 03/10/2021 4:57 AM CDT [facility] eGFR by MDRD >60 >60 mL/min/1.7 3m2 03/10/2021 4:57 AM CDT [facility] Alkaline Phosphatase 47 40 - 150 U/L 03/10/2021 4:57 AM CDT [facility] ALT 54 5 - 55 U/L 03/10/2021 4:57 AM T [facility] AST 52(H) 5 - 34 U/L 03/10/2021 4:57 AM T [facility] Protein Total 6.2(L) 6.4 - 8.3 gm/dL 03/10/2021 4:57 AM T [facility] Albumin 3.4(L) 3.5 - 5.0 gm/dL 03/10/2021 4:57 AM T [facility] Globulin Total 2.8 2.6 - 4.0 gm/dL 03/10/2021 4:57 AM T [facility] Albumin/Globulin Ratio 1.2 0.9 - 1.6 03/10/2021 4:57 AM T [facility] Bilirubin Total 0.6 0.2 - 1.2 mg/dL 03/10/2021 4:57 AM T [facility] Blood BLOOD SPECIMEN / Unknown Lab Venipuncture / Unknown 03/10/2021 4:13 AM CDT 03/10/2021 4:33 AM CDT Rehan Mendoza MD LAB - CHEMISTRY [facility]ARLEE [facility] Organization Address City/State/[facility] Co de Phone Number [facility] [address] from Last 3 Months or Most Recently Relevant to Health Maintenance Advance Directives * Full Code (Latest Code Status on File) Date Activated Date Inactivated Comments 03/09/2021 11:13 AM 03/10/2021 2:16 PM
--- OUTSIDE RECORDS SUMMARY | 2024-11-04 22:59 | XMS_ITS | Encounter Summary ---
Author Organization [facility] Health Address [address] [facility] [place] [address] Care Team Providers Care Straddle Bug Operator Name Role Phone Unavailable Primary Care Provider Unavailabl e Reason for Visit * Reason Onset Date Comments Confirmation 12/01/2022 EGD Encounter Details Date Type Department Care Team (Late st Contact Info) Description 12/01/2022 Telephone [facility] Weight Management Services [address] [place] [phone] Raisa Schmidt MD [address] [place] [phone] Confirmation (EGD) Social History Tobacco Use Types Packs/Day Years Used Date Smoking Tobacco: Former Cigarettes Q uit: 06/2020 Smokeless Tobacco: Never Alcohol Use Standard Drinks/Week Comments Yes 14 (1 standard drink = 0.6 oz pu re alcohol) occ wine Sex and Gender Information Value Date Recorded Sex Assigned at Female 11/25/2020 1:10 PM SWITCH BOX INSTALLER Gender Identity Female 11/25/2020 1:10 PM SWITCH BOX INSTALLER Sexual Orientation Straight 02/02/2021 4: 18 PM CDT documented as of this encounter Functional Status Functional Status Response Date of Assess ment Is person deaf or have serious hearing difficult y? No 03/10/2021 Is person blind or have serious difficulty seein g? No 03/10/2021 Does person have serious dif ficulty walking/climbing stairs? No 03/10/2021 Does person have difficulty dressing/bathing? No 03/10/2021 Does person have difficulty doing errands alone? No 03/10/2021 Cognitive Status Response Date of Assessm ent Does person have difficulty concentrating/remembering/making decisions? No 03/10/2021 documented as of this encounter Miscellaneous Notes * Telephone Encounter - Naila You - 12/01/2022 9:46 AM CST Attempted to contact patient via both phone numbers in chart. No answer. Voicemails not set up. Wanted to confirm 12/08 EGD. CH BOX INSTALLER documented in this encounter Plan of Treatment Upcoming Encounters Date Type Department Care Team (Late st Contact Info) Description 03/15/2025 10:00 AM CDT Office Visit [facility] Weight Management Services [address] [place] [phone] Vianey Llanes, ENTERPRISE SALES PERSON-ANIMAL ANATOMIST [address] [place] [address] 03/15/2025 10:30 AM CDT Clinical Support [facility] Weight Management Services [address] [place] [phone] documented as of this encounter Visit Diagnoses Not on filedocumented in this encounter
--- OUTSIDE RECORDS SUMMARY | 2024-11-04 22:59 | XMS_ITS | Encounter Summary ---
Author Organization [facility] Health Address [address] [facility] [place] [address] Care Team Providers Care Heavy Truck Driver Name Role Phone Unavailable Primary Care Provider Unavailabl e Encounter Details Date Type Department Care Team (Late st Contact Info) Description 03/10/2022 Orders Only [facility] Weight Management Services [address] [place] [phone] Vianey Llanes, COOK FRUIT-CABINETMAKER SUPERVISOR [address] [place] [address] Social History Tobacco Use Types Packs/Day Years Used Date Smoking Tobacco: Former Cigarettes Q uit: 06/2020 Smokeless Tobacco: Never Alcohol Use Standard Drinks/Week Comments Not Currently 14 (1 standard drink = 0.6 oz pu re alcohol) Sex and Gender Information Value Date Recorded Sex Assigned at Female 11/25/2020 1:10 PM RN RELIEF CHARGE Gender Identity Female 11/25/2020 1:10 PM RN RELIEF CHARGE Sexual Orientation Straight 02/02/2021 4: 18 PM [...] No 03/10/2021 documented as of this encounter Plan of Treatment Upcoming Encounters Date Type Department Care Team (Late st Contact Info) Description 03/15/2025 10:00 AM CDT Office Visit [facility] Weight Management Services [address] [place] [phone] Vianey Llanes, COOK FRUIT-CABINETMAKER SUPERVISOR [address] [place], [place] [address] 03/15/2025 10:30 AM CDT Clinical Support [facility] Weight Management Services [address] [place] [phone] documented as of this encounter Visit Diagnoses Not on filedocumented in this encounter
--- OUTSIDE RECORDS SUMMARY | 2024-11-04 22:59 | XMS_ITS | Encounter Summary ---
Author Organization [facility] Health Address [address] [facility] [place] [address] Care Team Providers Care Taproom Attendant Name Role Phone Unavailable Primary Care Provider Unavailabl e Reason for Visit * Reason Onset Date Comments Patient Requested Call 05/18/2021 Encounter Details Date Type Department Care Team (Late st Contact Info) Description 05/18/2021 Telephone [facility] Weight Management Services [address] [place] [phone] Raisa Schmidt MD [address] [place] [phone] Patient Requested Call Social History Tobacco Use Types Packs/Day Years Used Date Smoking Tobacco: Former Cigarettes Q uit: 06/2020 Smokeless Tobacco: Never Alcohol Use Standard Drinks/Week Comments Not Currently 14 (1 standard drink = 0.6 oz pu re alcohol) Sex and Gender Information Value Date Recorded Sex Assigned at Female 11/25/2020 1:10 PM UPPER CUTTER OUT Gender Identity Female 11/25/2020 1:10 PM UPPER CUTTER OUT Sexual Orientation Straight 02/02/2021 4: 18 PM [...] encounter Miscellaneous Notes * Telephone Encounter - Wagner Kenny LPN - 05/18/2021 3:46 PM CDT Unable to reach patient at this time. LMTCO if cont to need to talk to nurse. * Telephone Encounter - Naila You - 05/18/2021 2:25 PM CDT Patient LVM asking for a nurse to return her call. documented in this encounter Plan of Treatment Upcoming Encounters Date Type Department Care Team (Late st Contact Info) Description 03/15/2025 10:00 AM CDT Office Visit [facility] Weight Management Services [address] [place] [phone] Vianey Llanes, PRESSFITTER-HAY SORTER [address] [place] [address] 03/15/2025 10:30 AM CDT Clinical Support [facility] Weight Management Services [address] [place] [address] documented as of this encounter Visit Diagnoses Not on filedocumented in this encounter
--- OUTSIDE RECORDS SUMMARY | 2024-11-04 22:59 | XMS_ITS | Encounter Summary ---
Author Organization [facility] Health Address [address] [place] [address] Care Team Providers Care Industrial Twisting Machine Operator Name Role Phone Unavailable Primary Care Provider Unavailabl e Reason for Visit * Reason Onset Date Comments Pain Abdominal 05/06/2021 Encounter Details Date Type Department Care Team (Late st Contact Info) Description 05/06/2021 Telephone [facility] Weight Management Services [address] [place] [phone] Vianey Llanes, VALET MANAGER-INDUSTRIAL TRACTOR DRIVER [address] [place] [address] Pain Abdominal Social History Tobacco Use Types Packs/Day Years Used Date Smoking Tobacco: Former Cigarettes Q uit: 06/2020 Smokeless Tobacco: Never Alcohol Use Standard Drinks/Week Comments Not Currently 14 (1 standard drink = 0.6 oz pu re alcohol) Sex and Gender Information Value Date Recorded Sex Assigned at Female 11/25/2020 1:10 PM RN REVIEW Gender Identity Female 11/25/2020 1:10 PM RN REVIEW Sexual Orientation Straight 02/02/2021 4: 18 PM [...] encounter Miscellaneous Notes * Telephone Encounter - Cris Bundy LPN - 05/06/2021 1:23 PM CDT Patient informed of the need to return to the ER for evaluation. She voices understanding and agrees with plan. * Telephone Encounter - Vianey Llanes APRN-CNP - 05/06/2021 12:46 PM CDT If she is having persistent or worsening abdominal pain with a known acute diverticulitis episode, patient should return to the emergency room for further evaluation. * Telephone Encounter - Cris Bundy LPN - 05/06/2021 12:41 PM CDT Patient states she went to ER at [facility] on 04/28/[address] scan, she was diagnosed with diverticulitis and was given antibiotics. They helped at first but yesterday she started having cramping and abdominal discomfort. She will complete antibiotics tomorrow. She denies any othersymptoms except constipation which she takes Miralax for and that helps. She didn't know if we could order labs to see if they are abnormal or she should go back to the ER. She does not really have aPCP right now she will be seeing a new one but not soon enough. documented in this encounter Plan of Treatment Upcoming Encounters Date Type Department Care Team (Late st Contact Info) Description 03/15/2025 10:00 AM CDT Office Visit [facility] Weight Management Services [address] [place] [phone] Vianey Llanes, VALET MANAGER-INDUSTRIAL TRACTOR DRIVER [address] [place], [place] [address] 03/15/2025 10:30 AM CDT Clinical Support [facility] Weight Management Services [address] [place] [phone] documented as of this encounter Visit Diagnoses Not on filedocumented in this encounter
--- OUTSIDE RECORDS SUMMARY | 2024-11-04 22:59 | XMS_ITS | Encounter Summary ---
Author Organization [facility] Health Address [address] [facility] [place] [address] Care Team Providers Care Marketing Information Coordinator Name Role Phone Unavailable Primary Care Provider Unavailabl e Reason for Visit * Reason Comments Bariatric Surgery Follow-up Encounter Details Date Type Department Care Team (Late st Contact Info) Description 04/10/2021 1:30 PM CDT Video Visit [facility] [address] [place] [phone] Tram Pemberton, [facility] [address] [place] [address] Class 2 obesity due to excess calories with body mass index (BMI) of 38.0 to 38.9 in adult, unspecified whether serious comorbidity present ; S/P laparoscopic sleeve gastrectomy; Gastroesophageal reflux disease, unspecified whether esophagitis present; Arthralgia, unspecified joint; History of smoking; Vitamin D deficiency Social History Tobacco Use Types Packs/Day Years Used Date Smoking Tobacco: Former Cigarettes Q uit: 06/2020 Smokeless Tobacco: Never Alcohol Use Standard Drinks/Week Comments Not Currently 14 (1 standard drink = 0.6 oz pu re alcohol) Sex and Gender Information Value Date Recorded Sex Assigned at Female 11/25/2020 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 Gender Identity Female 11/25/2020 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 Sexual Orientation Straight 02/02/2021 4: 18 PM CDT documented as of this encounter Last Filed Vital Signs Vital Sign Reading Time Taken Comments Blood Pressure - - Pulse - - Temperature - - Respiratory Rate - - Oxygen Saturation - - Inhaled Oxygen Concentration - - Weight 98.9 kg (218 lb) 04/10/2021 1:15 PM CDT p er pt Height 160 cm (5' 3 ) 04/10/2021 1:15 PM CDT Body Mass Index 38.62 04/10/2021 1:15 PM CDT documented in this encounter Functional Status [...] No 03/10/2021 documented as of this encounter Progress Notes * Tram Pemberton APRN-CNP - 04/08/2021 9:08 AM CDT [facility] [place] [address] . . Date of encounter: 04/10/2021 Pt Name: Maria Del Carmen Ray : 1975 AGE: [age] year old SEX: female CSN: [id number] Visit type: Bariatric Post Operative Telemedicine visit Patients Primary care provider is : SANGEETHA Motta Subjective: Telehealth Visit You as patient/surrogate have agreed to perform this voluntary telemedicine encounter evaluation. Risks include potential but unlikely loss of confidentiality using our non HIPAA protected meeting tool and the potential need for subsequent face to face care. Patient/surrogate understands that there is a risk of medical inaccuracies given that our recommendations will be made based on reported data. Knowing that there is a risk that this information is not reported accurately, and that the telemedicine audio, or data feed may be incomplete, you agree to proceed with evaluation and holds us harmless knowing these risks. In this evaluation, we will be providing recommendations only. The patient/surrogate has been notified that other healthcare professionals (including students, residents andtechnical personnel) may be involved in this audio or audio/video evaluation. All current laws concerning confidentiality and patient access to medical records and copies of medical records apply to [facility]. Maria Del Carmen Ray presents to the clinic 1 month following sleeve gastrectomy. she was seen last on 03/18/2021. Patient is taking 60 grams of proteins supplements daily. Patient is not attending support group meeting. The patient has been participating in an online support group. Patient is taking 64 oz of fluid per day. Doing 30 minutes of exercise daily. Patient is taking Bariatric multivitamins. Patient is not having Reflux, Vomiting, Dysphagia and Nausea Bowel movement are constipated - discussed constipation protocol with her today. Has the patient been readmitted to the hospital since the last follow up ? No Has the patient had any post bariatric surgical operations or interventions performed since the last follow up? No Weight History: Initial Weight: 255.6 lb. BMI 45.29 Date: 08/13/2020 09/17/2020 Weight: 249 lb (112.9 kg) BMI (Calculated): 44.12 Weight Loss since last visit in lbs :6.6 lb Total Wt Loss in lb: 6.6 [...] Total Wt Loss in lb: 37.6 lb BSTOP Questions - 1 wk / Post op How many doses of opioid pain medication did you take after discharge?3 Are you still taking the opioid pain medication prescribed to you at discharge?no Did you receive any refills on the opioid pain medication prescribed to you after discharge? no Did you dispose of unused pain medication at an appropriate facility or drop- off? At home BSTOP Questions - 04/10/2021- 1 mo Post op How many doses of opioid pain medication did you take after discharge? 4 Are you still taking the opioid pain medication prescribed to you at discharge? No Did you receive any refills on the opioid pain medication prescribed to you after discharge? No Did you dispose of unused pain medication at an appropriate facility or drop- off? Still has them Obesity History Years at current weight? 13 Years at 35 pounds overweight? 13 Years 100 pounds overweight? Age patient started to diet? 41 Maximum weight reached? 255 Most significant weight loss: Amount of weight loss 20lb Months weight loss sustained 2 months Method of weight loss phentermine BMI: Body mass index is 38.62 kg/m??. Past Medical History: Diagnosis Date ??? GERD (gastroesophageal reflux disease) ??? HTN (hypertension) ??? Morbid obesity 03/09/2021 Past Surgical History: Procedure Laterality Date ??? Appendectomy 03/1999 ??? ENDOSCOPY, UPPER ??? ENDOSCOPY, UPPER N/A 02/02/2021 N/A; ESOPHAGOGASTRODUODENOSCOPY WITH BIOPSY ??? ENDOSCOPY, UPPER 02/23/2021 ESOPHAGOGASTRODUODENOSCOPY WITH BIOPSY ??? Gastrectomy N/A 03/09/2021 N/A; LAPAROSCOPIC SLEEVE GASTRECTOMY ??? Hysterectomy 12/2018 partial Social history: Social History Socioeconomic History ??? Marital status: Single Spouse name: Not on file ??? Number of children: Not on file ??? Years of education: Not on file ??? Highest education level: Not on file Occupational History ??? Not on file Tobacco Use ??? Smoking status: Former Smoker Quit date: 06/2020 Years since quittin.8 ??? Smokeless tobacco: Never Used Vaping Use ??? Vaping Use: Never used Substance and Sexual Activity ??? Alcohol use: Not Currently Alcohol/week: 14.0 standard drinks Types: 14 Glasses of wine per week ??? Drug use: Never ??? Sexual activity: Not on file Other Topics Concern ??? Not on file Social History Narrative ??? Not on file Social Determinants of Health Financial Resource Strain: ??? Difficulty of Paying Living Expenses: Food Insecurity: ??? Worried About Running Out of Food in the Last Year: ??? Ran Out of Food in the Last Year: Transportation Needs: ??? Lack of Transportation (Medical): ??? Lack of Transportation (Non-Medical): Physical Activity: ??? Days of Exercise per Week: ??? Minutes of Exercise per Session: Stress: ??? Feeling of Stress : Social Connections: ??? Frequency of Communication with Friends and Family: ??? Frequency of Social Gatherings with Friends and Family: ??? Attends [employer] Services: ??? Active Member of Clubs or Organizations: ??? Attends Club or Organization Meetings: ??? Marital Status: Intimate Partner Violence: ??? Fear of Current or Ex-Partner: ??? Emotionally Abused: ??? Physically Abused: ??? Sexually Abused: Family History: Family History Problem Relation Name Age of Onset ??? Hypertension Mother ??? Hypertension Father ??? CVA Father Medications: Outpatient Medications Marked as Taking for the 04/10/21 encounter (Video Visit) with Tram Pemberton APRN-BLAKE Medication Sig ??? CALCIUM CITRATE PO ??? Multiple Vitamins-Minerals (CENTRUM SILVER PO) ??? omeprazole (PRILOSEC) 40 MG capsule Take 1 (one) capsule by mouth daily before breakfast Reasons: Gastroesophageal Reflux Disease ??? Probiotic Product (OpenFeint) capsule Take 1 (one) capsule by mouth once daily ??? ursodiol (ACTIGALL) 300 MG capsule Take 1 (one) capsule by mouth 2 times daily for 90 days Do Not start until 1 week post op. Reasons: Post op laproscopic sleeve gastrectomy (Not in a hospital admission) Allergy: Allergies Allergen Reactions ??? Amoxicillin Rash and Unknown ROS: A comprehensive review of systems was negative except as described in HPI. Objective: Ht 5' 3 (1.6 m) Wt 218 lb (98.9 kg) BMI 38.62 kg/m2 Weight: 218 lb (98.9 kg) (per pt) Height: 5' 3 (160 cm) Body mass index is 38.62 kg/m??. Constitutional: Alert, awake and oriented without any apparent discomfort. Psychiatric: The patient's mood and affect appeared to be appropriate Labs Recent Labs Component Name 03/10/213 03/09/21 1005 WBC 10.7* 9.7 RBC 4.37 4.19 HGB 13.3 12.9 HCT 39.7 38.6 PLTCOUNT 243 220 Recent Labs Component Name 03/10/213 03/09/21 1005 SODIUM 139 139 POTASSIUM 3.5 3.8 CO2 22 22 BUN 8.7* 11.7 CREATININE 0.91 0.96 Recent Labs Component Name 03/10/21 0413 03/09/21 1005 AST 52* 42* ALT 54 50 Recent Labs Component Name 03/10/21 0413 PHOS 2.5 Imaging studies No results found. Assessment and Plan Obesity Change in weight as noted in the weight history above. Total weight loss since starting the program:37.6 pounds Current BMI Body mass index is 38.62 kg/m??. with weight of Weight: 218 lb (98.9 kg) (per pt) . Patient is losing weight. Patient is controlling Carbs and Sugar well. Controlling portions well. Patient was recommended to take about 60-80 g of protein per day, and get involved in an exercise plan. The patient is also recommended to attend support group meetings.I also explained to her that she should take 2 adult multivitamin tablets, and 1500 mg of calcium citrate and B12 supplementation 1000 mcg daily after surgery. Patient was made aware of the nutrition deficiency should she fail to take supplementation. BMI of 38.62 S/P Bariatric Surgery : s/pLaparoscopic Sleeve Gastrectomy. [facility]. ?? Doing well postoperatively: Incision care discussed. She reports surgical incisions healing well. No hernia palpable. Continue Actigall/Colon health after surgery for 3 months. No lifting restriction. May use fiber supplementation like Bene fiber 1-2 teaspoon twice daily in the protein supplementation to prevent constipation. Patient has been advised that during the first 18-24 months after bariatric surgery , she should refrain from becoming . The body is healing with many changes and it is difficult to sustain two lives when losing weight after bariatric surgery. She has been instructed of the importance of control methods to avoid . Her current control method is Hysterectomy Should she become , she is advised to contact the [facility] Team The patient verbalizes understanding of all information provided and denies any further questions GERD She denies reflux symptoms- She is to continue PPI for 3 months after surgery. Preoperative EGD 02/02/21 showed a small superficial pyloric ulcer. Treated with PPI. Repeat EGD 02/23/21 showed Pyloric ulcer healed . She has history of Colonoscopy on 08/09/2019, patient reports normal. Arthritis Due to being overweight and having extreme wear and tear of lower extremity joints patient is developing joint pain and arthritis. This should be alleviated after surgery and weight loss. Currently to continue with pain medication PRN. ? History of??Smoking addiction?? She??stopped smoking ??in June 2020.?She denies smoking at this time. ??Explained to her the risk of development of complications with smoking after bariatric surgery.? Vitamin D Deficiency Patient is tolerating repletion per protocol - will monitor lab results I counseled the patient on continuing Behavior and Lifestyle Modifications : Eat 1-2 small meals daily and protein supplementation. Recommended to take about 60-80 g of protein per day. Eliminate high [...] Labs ordered: Routine Vitamin and Lab check. Imaging ordered: Plan : as above recommendation. 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 Today , I have notified patient of Dr Mendoza departure from this program She was offered to follow with Dr Mendoza at his new Bariatric Program, Offered follow up with Dr Schmidt in our program or may follow with [facility] Herman Patient wishes to do bariatric follow up visits with [facility]/ Dr Schmidt Patient location: parked in private car This encounter was performed using: audio and video Time spent with patient/proxy: 12 minutes The plan was reviewed with the patient and the patient confirmed understanding of the plan and all follow-up steps. Patient is agreeable with this plan after shared decision making with patient. All aspects of patient's medical history were reviewed and updated as documented in Epic She verbalized understanding and is agreeable to this plan after shared decision making with patient. SANGEETHA Rai CC: SANGEETHA Motta documented in this encounter Plan of Treatment Upcoming Encounters Date Type Department Care Team (Late st Contact Info) Description 03/15/2025 10:00 AM CDT Office Visit [facility] [address] [place] [phone] Vianey Llanes APRN-CNP [address] [place] [address] 03/15/2025 10:30 AM CDT Clinical Support [facility] [address] [place] [phone] documented as of this encounter Visit Diagnoses Diagnosis Class 2 obesity due to excess calories with body mass index (BMI) of 38.0 to 38.9 in adult, unspecified whether serious comorbidity present- Primary S/P laparoscopic sleeve gastrectomy Gastroesophageal reflux disease, unspecified whether esophagitis present Arthralgia, unspecified joint History of smoking Personal history of tobacco use, presenting hazards to health Vitamin D deficiency documented in this encounter
--- OUTSIDE RECORDS SUMMARY | 2024-11-04 22:59 | XMS_ITS | Encounter Summary ---
Author Organization [facility] Address [address] [place] [address] Care Team Providers Care Cinema Or Theatre Manager Name Role Phone Unavailable Primary Care Provider Unavailabl e Reason for Visit * Auth/Cert Specialty Diagnoses / Procedures Referred By Veronica bonner Referred To Contact Diagnoses Morbid obesity (HCC) Morbid obesity [E66.01] Procedures LAPAROSCOPIC GASTRECTOMY (LONGITUDINAL/SLEEVE) Referral ID Status Reason Start Date Expiration Date Visits Re quested Visits Authorized [id number] 1 1 Encounter Details Date Type Department Care Team (Late st Contact Info) Description 03/09/2021 7:33 AM CDT Anesthesia Event [facility] [address] [place] [address] Roverto Novak MD [address] [place] [address] Olivia Cuevas, ANIMAL CARE GIVER-PESTICIDE CONTROL INSPECTOR [address] [facility] ANESTHESIA [place], [place] [address] Anesthesia Record Procedure Summary Procedure Name Responsible Anesthesiologist Anesthesia Start Time Anesthesia Stop Time LAPAROSCOPIC SLEEVE GASTRECTOMY (Abdomen) Roverto Novak MD 03/09/21 0733 03/09/21 0944 Events Date Time Event Comment 03/09/2021 0706 0733 An Start 0734 An Start Data 0735 PT Reassessment 0736 Quick Note Upper right arlette tral incisor chipped. Confirmed with OR nurses 0741 An Induction 0743 An Intubation 0750 Quick Note Calibration tub e inserted 0806 Timeout Anesthesia part icipated in timeout at the time documented in the record by nursing. 0807 Incision 0858 Quick Note Calibration tub e removed 0908 Quick Note Table leveled 0917 An Emergence 0928 Extubation 0932 Electnc Sig 0934 an stop data 0944 An Stop 0944 Handoff Meds Name Total midazolam (VERSED) 1 mg/mL injection 2 m g fentaNYL 250 mcg/5mL injection 250 mcg lidocaine 2% injection (20 mg/mL) 100 mg propofol 200mg/20mL injection 200 mg succinylcholine (ANECTINE) 20 mg/mL inje ction 100 mg rocuronium (ZEMURON) 10 mg/mL injection 50 mg glycopyrrolate (ROBINUL) 0.2 mg/mL injec tion 0.2 mg ondansetron (ZOFRAN) 2 mg/mL injection 4 mg dexamethasone (DECADRON) 4 mg/ml injecti on 10 mg phenylephrine 40 mcg/ml 10 ml syringe 80 mcg sugammadex 100 mg/ml injection 200 mg ciprofloxacin (Cipro) 400 mg in 200 mL I VPB 400 mg clindamycin (Cleocin) 900 mg in 50 mL D5 W IVPB 900 mg acetaminophen (Ofirmev) injection 1,000 mg 1,000 mg dexmedetomidine (Precedex) 200 mcg in 50 mL infusion 39.12 mcg phenylephrine 10mg in 250ml NS (ANES elza es in OR) 50 mL lactated ringers infusion 1,000 mL 0.9% NaCl infusion 300 mL * Agents Name Exp. Desflurane Exp. N2O O2 Air Insp. Desflurane * Blood No blood administrations on file. Lines, Drains, and Airways Type Details Placement Removal Peripheral IV Date: 03/09/21; Time : 06; Orientation: Left; Placed By: LILIAN SALINAS; Tolerance: Well 03/09/21 0620 by Ximena Dunn RN 03/10/21 1240 by Blaire Rendon RN Peripheral IV Date: 03/09/21; Time : 0630; Orientation: Right; Placed By: LILIAN SALINAS; Tolerance: Well 03/09/21 0630 by Ximena Dunn RN 03/10/21 1036 by Lyn Mcgraw RN ETT Date: 03/09/21; Time : 0743; Placed By: Tyrell Burger CRNA; Vent: easy mask; Induction: Rapid Sequence; Blade Type: Bowles; Blade Size: 3; Laryngoscopy View: Grade 1 (full cords); Intubation Adjuncts: Stylet, Cricoid Pressure; Tube: Endotracheal Tube-Hi/Lo; Placement: Oral; Tube Type: Cuffed-inflated; Tube Size(FR): 7 FR; Depth of Insertion: 21 CM; Attempts: 1; Cuff Infated: Air; Cuff Pressure(cm H2O): 22 cm H2O; Verified By: Direct visualization, Bilateral breath sounds, Chest Auscultation, CO2 Monitor 03/09/21 0743 by David Burger APRN-CRNA 03/09/21 0928 by David Burger APRN-CRNA Procedural Site (Incision) 03/09/21; 08; Abdomen; Laparoscopic; 7 sites; 03/10/21; 190903/09/21 0807 by Priya Hurtado RN 03/10/21 191 by Chumen Wenwen, Auto Release documented in this encounter Social History Tobacco Use Types Packs/Day Years Used Date Smoking Tobacco: Former Cigarettes Q uit: 06/2020 Smokeless Tobacco: Never Alcohol Use Standard Drinks/Week Comments Not Currently 14 (1 standard drink = 0.6 oz pu re alcohol) Sex and Gender Information Value Date Recorded Sex Assigned at Female 11/25/2020 1:10 PM FACTORER Gender Identity Female 11/25/2020 1:10 PM FACTORER Sexual Orientation Straight 02/02/2021 4: 18 PM CDT COVID-19 Exposure Response Date Recorded In the last month, have you been in contact with someone who was confirmed or suspected to have Coronavirus / COVID-19? No / Unsure 03/06/2021 6:03 AM CDT documented as of this encounter Functional Status Functional Status Response Date of Assess ment Is person deaf or have serious hearing difficult y? No 02/02/2021 Is person blind or have serious difficulty seein g? No 02/02/2021 Does person have serious dif ficulty walking/climbing stairs? No 02/02/2021 Does person have difficulty dressing/bathing? No 02/02/2021 Does person have difficulty doing errands alone? No 02/02/2021 Cognitive Status Response Date of Assessm ent Does person have difficulty concentrating/remembering/making decisions? No 02/02/2021 documented as of this encounter Progress Notes * Roverto Novak MD - 03/09/2021 10:37 AM CDT ANESTHESIA POSTOP EVALUATION NOTE Procedure: LAPAROSCOPIC SLEEVE GASTRECTOMY (N/A Abdomen) Maria Del Carmen Ray is a 45 year old female Patient Vitals for the past 6 hrs: BP Temp Pulse Resp SpO2 Pain Rating Score #1 Pain Scale/Observation 03/09/21 0545 136/79 97 ??F (36.1 ??C) 67 18 99 % 0 N 03/09/21 0945 112/67 97.5 ??F (36.4 ??C) 66 31 100 % -- -- 03/09/21 0950 109/60 -- 67 29 96 % -- -- 03/09/21 0955 111/68 -- 61 28 97 % -- N 03/09/21 1000 100/54 -- 61 18 98 % -- -- 03/09/21 1005 112/74 -- 66 30 94 % 0 -- 03/09/21 1010 115/67 -- 66 30 93 % -- -- 03/09/21 1015 122/77 -- 65 23 92 % 6 -- 03/09/21 1020 127/84 -- 63 31 92 % -- -- 03/09/21 1021 -- -- -- -- -- 6 -- 03/09/21 1025 116/77 -- 63 29 98 % -- -- 03/09/21 1030 125/74 -- 56 27 99 % -- -- 03/09/21 1035 -- -- 60 24 97 % 0 -- Anesthesia Type: general ETT Pre-op Diagnosis Codes: * Morbid obesity [E66.01] Mental Status: awake, alert and oriented Neuro Status: No numbness, tingling or visual disturbances Respiratory Function: natural Cardiac Function: stable Postop Pain: acceptable to the patient Postop Hydration: adequate Postop Nausea: none Assessment: no apparent anesthetic complications, patient tolerated procedure well and no evidence of recall Patient Disposition: Release from Anesthesia Care COMPLICATIONS: No complications documented. * Olivia CuevasBURT-PESTICIDE CONTROL INSPECTOR - 03/06/2021 7:27 AM CDT ANESTHESIA PREOPERATIVE EVALUATION NOTE Procedure: LAPAROSCOPIC SLEEVE GASTRECTOMY Vitals: No data found. ANESTHESIA PRE-EVALUATION NOTE History of Present Illness: Morbid Obesity Physical Exam: Orientation X3 Airway/Mallampati Score: II Mouth Opening Distance: 3.5 fingerwidths Neck ROM: full TM Distance: > 3 FB Teeth: normal Heart: normal - S1 S2 Lungs: clear to ausculation bilaterally Abdomen Exam: obese Physical Exam Additional Comments: Hx of HTN- no longer needs meds, GERD, Anxiety Review of Systems: History of anesthetic complications: No Malignant Hyperthermia: No GERD: Yes, well controlled Poor Exercise Tolerance: No Recent Chest Pain: Yes (Saw Scouring Machine Operator Dr Chavarria) Shortness of Breath: No AICD/Pacemaker: No Renal Disease: No Diagnostic Tests: ECG(s) reviewed: Yes Lab(s) reviewed: Yes. Other Findings: Scouring Machine Operator clearance- Recent chest pain was diagnosed as pleuritic. EF 60-65% Grade 2 diastolic dysfunction, Normal systolic function ANESTHESIA PLAN ASA Score: 3 NPO Status: Patient instructed to be NPO after midnight Anesthesia Plan: general ETT Planned Induction: intravenous Planned Postop Destination: PACU Anesthetic plan was discussed with: patient Anesthetic Plan discussion was: Consented Use of blood products were discussed with: patient Use of blood product discussion was: Consented The patient's procedural Anesthetic Plan was discussed with the anesthesiologist. BMI, Height, Weight Tobacco History Estimated body mass index is 44.78 kg/m?? as calculated from the following: Height as of 03/06/21: 1.549 m (5' 1 ). Weight as of 03/04/21: 107.5 kg (237 lb). Social History Tobacco Use Smoking Status Former Smoker ??? Quit date: 06/2020 ??? Years since quittin.7 Smokeless Tobacco Never Used Alcohol History Drug History Social History Substance and Sexual Activity Alcohol Use Not Currently ??? Alcohol/week: 14.0 standard drinks ??? Types: 14 Glasses of wine per week Social History Substance and Sexual Activity Drug Use Never Outpatient Medications: Inpatient Medications: No outpatient medications have been marked as taking for the 03/09/21 encounter (Hospital Encounter). No current facility-administered medications for this encounter. Allergies: Allergies Allergen Reactions ??? Amoxicillin Rash and Unknown Relevant Problems No relevant active problems Problem List: Patient Active Problem List Diagnosis Date Noted ??? Pre-op exam Priority: Not Prioritized ??? Preop examination Priority: Not Prioritized ??? Diverticulitis 06/01/2019 Priority: Not Prioritized ??? Edema of lower extremity 05/13/2017 Priority: Not Prioritized ??? Anxiety 10/20/2016 Priority: Not Prioritized ??? Backache 01/23/2014 Priority: Not Prioritized ??? Esophageal reflux 11/22/2012 Priority: Not Prioritized Medical History: Past Medical History: Diagnosis Date ??? GERD (gastroesophageal reflux disease) ??? HTN (hypertension) Surgical History: Past Surgical History: Procedure Laterality Date ??? Appendectomy 03/1999 ??? ENDOSCOPY, UPPER ??? ENDOSCOPY, UPPER N/A 02/02/2021 N/A; ESOPHAGOGASTRODUODENOSCOPY WITH BIOPSY ??? ENDOSCOPY, UPPER 02/23/2021 ESOPHAGOGASTRODUODENOSCOPY WITH BIOPSY ??? Hysterectomy 12/2018 partial Lab Results: No results found for requested labs within last 120 days. No results found for requested labs within last 120 days. documented in this encounter Miscellaneous Notes * Anesthesia Transfer of Care - David Burger, ANIMAL CARE GIVER-PESTICIDE CONTROL INSPECTOR - 03/09/2021 9:43 AM CDT ANESTHESIA TRANSFER OF CARE NOTE Today's Date: 03/09/2021 Date of : 1975 Patient: Maria Del Carmen Ray Procedure(s): LAPAROSCOPIC SLEEVE GASTRECTOMY Surgeon(s): Primary: Rehan Mendoza MD Preop Diagnosis: Pre-op Diagnois: * Morbid obesity [E66.01] Pre-op Meds (From admission, onward) Start Stop Status Route Frequency Ordered 03/09/21 0733 0.9% NaCl infusion -- Sent IV CONTINUOUS PRN 03/09/21 0800 03/09/21 0600 acetaminophen (Ofirmev) injection 1,000 mg 03/09 075 Completed IV ONCE 03/09/21 0546 03/09/21 06 celecoxib (CeleBREX) capsule 400 mg 03/09 0612 Completed PO PRE-OP ONCE 03/09/21 0546 03/09/21 0600 ciprofloxacin (Cipro) 400 mg in 200 mL IVPB 03/09 0755 Completed IV PRE-OP ONCE 03/09/21 0546 03/09/21 06 clindamycin (Cleocin) 900 mg in 50 mL D5W IVPB 03/09 0809 Completed IV PRE-OP ONCE 03/09/21 0546 03/09/21 0749 dexamethasone (Decadron) injection -- Sent IV PRN 03/09/21 07503/09/21 0715 dexmedetomidine (Precedex) 200 mcg in 50 mL infusion -- Dispensed IV CONTINUOUS 03/09/21 0703 03/09/21 0715 famotidine (Pepcid) injection 20 mg 03/09 715 Completed IV PRE-OP ONCE 03/09/21 0703 03/09/21 0741 fentaNYL (PF) (Sublimaze) injection -- Sent IV PRN 03/09/21 0756 03/09/21 06 gabapentin (Neurontin) capsule 300 mg 03/09 06 Completed PO ONCE 03/09/21 0546 03/09/21 0731 glycopyrrolate (Robinul) injection -- Sent IV PRN 03/09/21 0756 03/09/21 0600 heparin injection 5,000 Units 03/09 06 Completed SC PRE-OP ONCE 03/09/21 0546 03/09/21 0715 lactated ringers infusion -- Verified IV PRE-OP CONTINUOUS 03/09/21 0703 03/09/21 0741 lidocaine (Xylocaine) 2 % injection -- Sent IV PRN 03/09/21 0756 03/09/21 0715 metoclopramide (Reglan) injection 10 mg 03/09 0720 Completed IV PRE-OP ONCE 03/09/21 0703 03/09/21 0731 midazolam (Versed) injection -- Sent IV PRN 03/09/21 0756 03/09/21 0749 ondansetron (Zofran) injection -- Sent IV PRN 03/09/21 0759 03/09/21 0715 ondansetron (Zofran) injection 4 mg 03/09 718 Completed IV PRE-OP ONCE 03/09/21 0703 03/09/21 075 phenylephrine (Yony-Synephrine) infusion -- Sent IV CONTINUOUS PRN 03/09/21 0801 03/09/21 09 phenylephrine 40 mcg/ml custom syringe -- Sent IV PRN 03/09/21 0901 03/09/21 0741 propofol (Diprivan) injection -- Sent IV PRN 03/09/21 0756 03/09/21 0740 rocuronium (Zemuron) injection -- Sent IV PRN 03/09/21 0757 03/09/21 0715 sodium citrate-citric acid 500-334 mg/5 mL oral solution 03/09 723 Completed PO PRE-OP ONCE 03/09/21 0703 03/09/21 0741 succinylcholine (Anectine) injection -- Sent IV PRN 03/09/21 0756 03/09/21 0924 sugammadex (Bridion) injection -- Sent IV PRN 03/09/21 0924 Post-op Diagnosis: * Morbid obesity [E66.01] . Allergies Allergen Reactions ??? Amoxicillin Rash and Unknown Vitals: No data found. Lines, Drains, and Airways Type Details Placement Removal Peripheral IV Date: 03/09/21; Time: 619; Orientation: Left; Location: Hand; Placed By: LILIAN SALINAS; Gauge: 20 Gauge; Locals: None; Tolerance: Well 03/09/21619 by Ximena Dunn RN Peripheral IV Date: 03/09/21; Time: 629; Orientation: Right; Location: Hand; Placed By: ILLIAN SALINAS; Gauge: 20 Gauge; Tolerance: Well 03/09/21629 by Ximena Dunn RN ETT Date: 03/09/21; Time: 742; Placed By: Tyrell Burger CRNA; Vent: easy mask; Induction: Rapid Sequence;Blade Type: Bowles; Blade Size: 3; Laryngoscopy View: Grade 1 (full cords); Intubation Adjuncts: Stylet, Cricoid Pressure; Tube: Endotracheal Tube-Hi/Lo; Placement: Oral; Tube Type: Cuffed-inflated; Tube Size(FR): 7 FR; Depth of Insertion: 21 CM; Attempts: 1; Cuff Infated: Air; Cuff Pressure(cm H2O): 22 cm H2O; Verified By: Direct visualization, Bilateral breath sounds, Chest Auscultation, CO2 Monitor 03/09/21 0743 by David Burger APRN- CRNA 03/09/21 0928 by David Burger APRN-CRNA Intraprocedure I/O Totals Intake phenylephrine 10mg in 250ml NS (ANES makes in OR) 50.00 mL 0.9% NaCl infusion 300.00 mL lactated ringers infusion 1000.00 mL Total Intake 1350 mL Patient Transfer Location: PACU Transport Airway: spontaneous respirations Complications: None Handoff Given? Yes Checklist or Protocol - The foster handoff elements that must be included in the transfer of care checklist include: 1. Identification of patient. 2. Identification of responsible practitioner (PACU nurse or advanced practitioner). 3. Discussion of pertinent medical history. 4. Discussion of the surgical/procedure course (procedure, reason for surgery, procedure performed). 5. Intraoperative anesthetic management and issue/concerns. 6. Expectations/Plans for the early post-procedure period. 7. Opportunity for questions and acknowledgement of understanding of report from the receiving PACUteam. EDISON Lloyd documented in this encounter Plan of Treatment Upcoming Encounters Date Type Department Care Team (Late st Contact Info) Description 03/15/2025 10:00 AM CDT Office Visit [facility] [address] [place] [phone] Vianey Llanes APRN-CNP [address] [place] [address] 03/15/2025 10:30 AM CDT Clinical Support [facility] [address] [place] [phone] documented as of this encounter Visit Diagnoses Not on filedocumented in this encounter Administered Medications Inactive Administered Medications - up to 3 most recent administrations Medication Order MAR Action Action Date Dose Rate Site 0.9% NaCl infusion Intravenous, CONTINUOUS PRN, Starting on Tue03/09/21 at 0733, Until Tue03/09/21 at 0944, Anesthesia Intra-op $ New Bag/Syringe 03/09/2021 7:33 AM CDT acetaminophen (Ofirmev) injection 1,000 mg 1,000 mg, at 400 mL/hr, Intravenous, ONCE, 1 dose, On Tue03/09/21 at 0600, See Abigail Stewartedex for renal dosing guidelines. $ Given 03/09/2021 7:53 AM CDT 1,000 mg ciprofloxacin (Cipro) 400 mg in 200 mL IVPB 400 mg, at 200 mL/hr, Intravenous, PRE-OP ONCE, 1 dose, On Tue03/09/21 at 0600, Administer 30 minutes prior to surgical incision., Indication for anti-infective therapy: Surgical prophylaxis, Pre-op $ Given 03/09/2021 7:55 AM CDT 400 mg clindamycin (Cleocin) 900 mg in 50 mL D5W IVPB 900 mg, at 100 mL/hr, Intravenous, PRE-OP ONCE, 1 dose, On Tue03/09/21 at 0600, Administer 30 minutes prior to surgical incision., Indication for anti-infective therapy: Surgical prophylaxis, Pre-op $ Given 03/09/2021 8:09 AM CDT 900 mg dexamethasone (Decadron) injection Intravenous, PRN, Starting on Tue03/09/21 at 0749, Until Tue03/09/21 at 0944, Anesthesia Intra-op $ Given 03/09/2021 7:49 AM CDT 10 mg dexmedetomidine (Precedex) 200 mcg in 50 mL infusion 0-1.5 mcg/kg/hr ? 106.7 kg (0-40.0125 mL/hr, rounded to 0-40.01 mL/hr), Intravenous, CONTINUOUS, Starting on Tue03/09/21 at 0715, Until Tue03/09/21 at 1112, Titration Parameters: Standard Parameters, Indication: Sedation, Initiate infusion at: 0.2 mcg/kg/hr, Titrate infusion by: 0.1 mcg/kg/hr, Titrate every: 30 minutes, To maintain a: RASS score of -3 = Moderate sedation, Notify physician if: Unachievable RASS goal despite max dose, Pre-op $ New Bag/Syringe 03/09/2021 8:49 AM CDT 0.4 mcg/kg/hr 10.67 mL/hr fentaNYL (PF) (Sublimaze) injection Intravenous, PRN, Starting on Tue03/09/21 at 0741, Until Tue03/09/21 at 0944, Anesthesia Intra-op $ Given 03/09/2021 8:51 AM CDT 50 mcg $ Given 03/09/2021 8:32 AM CDT 100 mcg $ Given 03/09/2021 7:41 AM CDT 100 mcg glycopyrrolate (Robinul) injection Intravenous, PRN, Starting on Tue03/09/21 at 0731, Until Tue03/09/21 at 0944, Anesthesia Intra-op $ Given 03/09/2021 7:31 AM CDT 0.2 mg lactated ringers infusion at 75 mL/hr, Intravenous, PRE-OP CONTINUOUS, Starting on Tue03/09/21 at 0715, Until Tue03/09/21 at 1112, Pre-op $ New Bag/Syringe 03/09/2021 9:16 AM CDT $ New Bag/Syringe 03/09/2021 7:19 AM CDT 75 mL/ hr lidocaine (Xylocaine) 2 % injection Intravenous, PRN, Starting on Tue03/09/21 at 0741, Until Tue03/09/21 at 0944, Anesthesia Intra-op $ Given 03/09/2021 7:41 AM CDT 100 mg midazolam (Versed) injection Intravenous, PRN, Starting on Tue03/09/21 at 0731, Until Tue03/09/21 at 0944, Anesthesia Intra-op $ Given 03/09/2021 7:31 AM CDT 2 mg ondansetron (Zofran) injection Intravenous, PRN, Starting on Tue03/09/21 at 0749, Until Tue03/09/21 at 0944, Anesthesia Intra-op $ Given 03/09/2021 7:49 AM CDT 4 mg phenylephrine (Yony-Synephrine) infusion Intravenous, CONTINUOUS PRN, Starting on Tue03/09/21 at 0753, Until Tue03/09/21 at 0944, Anesthesia Intra-op $ New Bag/Syringe 03/09/2021 7:53 AM CDT phenylephrine 40 mcg/ml custom syringe Intravenous, PRN, Starting on Tue03/09/21 at 0901, Until Tue03/09/21 at 0944, Anesthesia Intra-op $ Given 03/09/2021 9:01 AM CDT 80 mcg propofol (Diprivan) injection Intravenous, PRN, Starting on Tue03/09/21 at 0741, Until Tue03/09/21 at 0944, Anesthesia Intra-op $ Given 03/09/2021 7:41 AM CDT 200 mg rocuronium (Zemuron) injection Intravenous, PRN, Starting on Tue03/09/21 at 0740, Until Tue03/09/21 at 0944, Anesthesia Intra-op $ Given 03/09/2021 7:48 AM CDT 45 mg $ Given 03/09/2021 7:40 AM CDT 5 mg succinylcholine (Anectine) injection Intravenous, PRN, Starting on Tue03/09/21 at 0741, Until Tue03/09/21 at 0944, Anesthesia Intra-op $ Given 03/09/2021 7:41 AM CDT 100 mg sugammadex (Bridion) injection Intravenous, PRN, Starting on Tue03/09/21 at 0924, Until Tue03/09/21 at 0944, Anesthesia Intra-op $ Given 03/09/2021 9:24 AM CDT 200 mg documented in this encounter
--- OUTSIDE RECORDS SUMMARY | 2024-11-04 22:59 | XMS_ITS | Encounter Summary ---
Author Organization [facility] Address [address] [facility] [place] [address] Care Team Providers Care Drum Maker Name Role Phone Unavailable Primary Care Provider Unavailabl e Reason for Visit * Reason Onset Date Comments Return To Work 03/24/2021 Encounter Details Date Type Department Care Team (Late st Contact Info) Description 03/24/2021 Telephone [facility] [address] [place] [phone] Tram Pemberton, FLUORESCENT SOLUTION MIXER-SPEAKING UNIT ASSEMBLER [address] [place] [address] Return To Work Social History Tobacco Use Types Packs/Day Years Used Date Smoking Tobacco: Former Cigarettes Q uit: 06/2020 Smokeless Tobacco: Never Alcohol Use Standard Drinks/Week Comments Not Currently 14 (1 standard drink = 0.6 oz pu re alcohol) Sex and Gender Information Value Date Recorded Sex Assigned at Female 11/25/2020 1:10 PM DIVORCE LAWYER Gender Identity Female 11/25/2020 1:10 PM DIVORCE LAWYER Sexual Orientation Straight 02/02/2021 4: 18 PM [...] Telephone Encounter - Cris Bundy LPN - 03/24/2021 10:43 AM CDT Patient is ready to return to work needs and letter and wanted to make sure it is okay to vacuum. Discussed with Tram Pemberton AUTOMATIC DOOR MECHANIC and patient is good to return. Patient informed vacuum is fine, and note emailed to patient and faxed to [phone]. documented in this encounter Plan of Treatment Upcoming Encounters Date Type Department Care Team (Late st Contact Info) Description 03/15/2025 10:00 AM CDT Office Visit [facility] [address] [place] [phone] Vianey Llanes, FLUORESCENT SOLUTION MIXER-SPEAKING UNIT ASSEMBLER [address] [place], [place] [phone] 03/15/2025 10:30 AM CDT Clinical Support [facility] [employer] [facility] [address] [place] [phone] documented as of this encounter Visit Diagnoses Not on filedocumented in this encounter
--- OUTSIDE RECORDS SUMMARY | 2024-11-04 22:59 | XMS_ITS | Encounter Summary ---
Author Organization [facility] Address [address] [place] [address] Care Team Providers Care Web Operations Administrator Name Role Phone Unavailable Primary Care Provider Unavailabl e Reason for Visit * Reason Comments Bariatric Surgery Follow-up Encounter Details Date Type Department Care Team (Late st Contact Info) Description 08/04/2022 2:30 PM CDT Office Visit [facility] Weight Management Services [address] [place] [phone] Raisa Schmidt MD [address] [place] [address] Vianey Llanes, COMPUTER SYSTEMS SOFTWARE ENGINEER-QUALITY CONTROL ASSISTANT [address] [place] [address] Class 1 obesity due to excess calories with serious comorbidity and body mass index (BMI) of 30.0 to 30.9 in adult (Primary Dx); Vitamin D deficiency; Gastroesophageal reflux disease, unspecified whether esophagitis present; S/P laparoscopic sleeve gastrectomy; 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); Vitamin B1 deficiency; Iron deficiency; Abdominal pannus Social History Tobacco Use Types Packs/Day Years Used Date Smoking Tobacco: Former Cigarettes Q uit: 06/2020 Smokeless Tobacco: Never Alcohol Use Standard Drinks/Week Comments Yes 14 (1 standard drink = 0.6 oz pu re alcohol) occ wine Sex and Gender Information Value Date Recorded Sex Assigned at Female 11/25/2020 1:10 PM SALES SUPERINTENDENT Gender Identity Female 11/25/2020 1:10 PM SALES SUPERINTENDENT Sexual Orientation Straight 02/02/2021 4: 18 PM CDT documented as of this encounter Last Filed Vital Signs Vital Sign Reading Time Taken Comments Blood Pressure 138/100 08/04/2022 2:17 PM CDT Pulse 82 08/04/2022 2:10 PM CDT Temperature 36.5 ??C (97.7 ??F) 08/04/2022 2:10 PM CD T Respiratory Rate 20 08/04/2022 2:10 PM CDT Oxygen Saturation - - Inhaled Oxygen Concentration - - Weight 78.2 kg (172 lb 8 oz) 08/04/2022 2:10 PM CDT Height 160 cm (5' 3 ) 08/04/2022 2:10 PM CDT Body Mass Index 30.56 08/04/2022 2:10 PM CDT documented in this encounter Functional [...] No 03/10/2021 documented as of this encounter Patient Instructions * Patient Instructions* Chantelle Patricia CNA - 08/04/2022 2:48 PM CDT PROCEDURE INSTRUCTIONS PROCEDURE: EGD DATE: GENERAL GUIDELINES All surgery patients need to arrange for a responsible adult, 18 years or older, to drive them homeafter discharge. If you have young children, please make arrangements for their care while you are at the hospital. Same day surgery department will call you with your arrival time to the hospital one business day before your scheduled surgery. MEDICATIONS TO STOP Mobic (Meloxicam) - 10 days before Relafen (Nabumetome) - 10 days before Feldene (Piroxicam) - 10 days before Effient (Prasugrel) - 7 days before Aggrenox - 7 days before Aspirin - 5 days before Plavix (Clopidogrel) - 5 days before Coumadin (Warfarin) - 5 days before Brillinta (Ticagrelor) - 5 days before Ticlid (Ticlopidine) - 5 days before Pletal (Cilostazol) - 3 days before Naprosyn (Naproxen) - 3 days before Dolobid (Diflunisal) - 3 days before Clinoril (Sulindac) - 3 days before Xarelto (Rivaroxaban) - 2 days before Celebrex - 2 days before Eliquis (Apixaban) - 2 days before Pradaxa (Dabigatran) - 2 days before Savaysa (Endoxaban) - 2 days before Lovenox - 2 days before Voltaren (Diclofenac) - 1 day before Motrin (Ibuprofen) - 1 day before Indocin (Indomethacin) - 1 day before Orudis (Ketoprofen) - 1 day before DAY BEFORE SURGERY Do not drink alcoholic beverages or smoke for 24 hours prior to your surgery. To help prevent infection, shower the night before and the morning of surgery. If your surgeon has provided you with specific bathing instructions, please follow those guidelines. Perform thorough oral hygiene by brushing teeth before coming to the hospital. Remove all jewelry, make up, finger/toe lithuanian and body piercings prior to your arrival at the hospital. Same day surgery department will call you with your arrival time to the hospital one business day before your scheduled surgery. DAY OF SURGERY Nothing to eat or drink after midnight the day of your surgery, unless otherwise instructed by yourphysician. Please bring insurance cards and photo ID with you to the hospital. Please leave all valuables at home. (This includes money, jewelry, watches, credit cards, etc.) documented in this encounter Progress Notes * Vianey Llanes APRN-QUALITY CONTROL ASSISTANT - 08/04/2022 4:57 PM CDT [facility] Weight Management Services at [address] [address] . . Date of encounter: 08/04/2022 Pt Name: Maria Del Carmen Ray : 1975 AGE: [age] year old SEX: female CSN: [id number] Visit type: Bariatric Post Operative visit Patients Primary care provider is : No primary care provider on file. Subjective: Maria Del Carmen Ray presents to the clinic 16 months following sleeve gastrectomy. she was seen in clinic last on 11/03/2021. She was unable to complete the visit at 1 year post op. Patient is taking 60 grams of proteins supplements daily. Patient is taking 64 oz of fluid per day. Doing 10 minutes of exercise daily. Patient is taking Bariatric multivitamins. Patient is not having Reflux, Vomiting, Dysphagia and Abdominal Pain, The patient is not having anypain.. Bowel movement are Normal. Has the patient been readmitted to the [...] Total Wt Loss in lb: 83.1 lb Obesity History Years at current weight? 13 Years at 35 pounds overweight? 13 Years 100 pounds overweight? Age patient started to diet? 41 Maximum weight reached? 255 Most significant weight loss: Amount of weight loss 20lb Months weight loss sustained 2 months Method of weight loss phentermine BMI: Body mass index is 30.56 kg/m??. Past Medical History: Diagnosis Date ??? [...] Former Smoker Quit date: 06/2020 Years since quittin.1 ??? Smokeless tobacco: Never Used Vaping Use ??? Vaping Use: Never used Substance and Sexual Activity ??? Alcohol use: Yes Alcohol/week: 14.0 standard drinks Types: 14 Glasses of wine per week Comment: occ wine ??? Drug use: Never ??? Sexual activity: Not on file Other Topics Concern ??? Not on file Social History Narrative ??? Not on file Social Determinants of Health Financial Resource Strain: Not on file Food Insecurity: Not on file Transportation Needs: Not on file Physical Activity: Not on file Stress: Not on file Social Connections: Not on file Intimate Partner Violence: Not on file Housing Stability: Not on file Family History: Family History Problem Relation Name Age of Onset ??? Hypertension Mother ??? Hypertension Father ??? CVA Father Medications: Outpatient Medications Marked as Taking for the 08/04/22 encounter (Office Visit) with Ritika Llanes APRN-CNP Medication Sig ??? CALCIUM CITRATE PO ??? Ferrous Sulfate (IRON PO) ??? Multiple Vitamins-Minerals (CENTRUM SILVER PO) (Not in a hospital admission) Allergy: Allergies Allergen Reactions ??? Amoxicillin Rash and Unknown ROS: A comprehensive review of systems was negative except as described in HPI. Objective: BP (!) 138/100 Pulse 82 Temp 97.7 ??F (36.5 ??C) (Temporal) Resp 20 Ht 5' 3 (1.6 m) Wt 172 lb 8 oz (78.2 kg) Weight: 172 lb 8 oz (78.2 kg) Height: 5' 3 (160 cm) Body mass index is 30.56 kg/m??. Constitutional: Alert, awake and oriented without [...] No palpableventral hernias. Wound healing well. Skin: Onycha and moist. No ulcers, rashes, or lesions. Extremities: Well perfused. No gross joint deformity noted Neurological: Cranial nerves 2-12 were grossly intact. Psychiatric: The patient's mood and affect appeared to be appropriate Labs Recent Labs Component Name 03/10/21 0413 03/09/21 1005 WBC 10.7* 9.7 RBC 4.37 4.19 HGB 13.3 12.9 HCT 39.7 38.6 PLTCOUNT 243 220 Recent Labs Component Name 03/10/21 0413 03/09/21 1005 SODIUM 139 139 POTASSIUM 3.5 3.8 CO2 22 22 BUN 8.7* 11.7 CREATININE 0.91 0.96 Recent Labs Component Name 03/10/21 0413 03/09/21 1005 GLUCOSE 101 107 Recent Labs Component Name 03/10/21 0413 03/09/21 1005 AST 52* 42* ALT 54 50 No results for input(s): LDL, HDL, TRIG, TSH in the last 03436 hours. No results for input(s): HGBA1C in the last 78976 hours. No results for input(s): PT, PTT, INR, TSH in the last 34079 hours. No results for input(s): TSH in the last 17763 hours. No results for input(s): IRON in the last 06368 hours. No results for input(s): [id number] in the last 59292 hours. No results for input(s): VITAMINA in the last 23735 hours. No results for input(s): IRON in the last 71428 hours. No results for input(s): VITK1 in the last 69521 hours. No results for input(s): [id number] in the last 70618 hours. No results for input(s): ALPHATOCOPH in the last 45474 hours. No results for input(s): GAMMATOCOPH in the last 77478 hours. No results for input(s): MAGMGDL in the last 02236 hours. Recent Labs Component Name 03/10/21 0413 PHOS 2.5 Some lab results will be in paper format so may be scanned in the EMR. Imaging studies No results found. Some Imaging studies results will be in paper format so may be scanned in the EMR. Assessment and Plan Obesity : Change in weight as noted in the weight history above. Total weight loss since starting the program: 83.1 pounds Current BMI Body mass index is 30.56 kg/m??. with weight of Weight: 172 lb 8 oz (78.2 kg) . Patient is losing weight. Patient is controlling Carbs and Sugar well. Controlling portions well. Patient was recommended to take about 80 g of protein per day, and get involved in an exercise plan. The patient is also recommended to attend support group meetings.I also explained to her that she should take 2 adult multivitamin tablets, and 1500 mg of calcium citrate and B12 supplementation 1000 mcg daily, starting 1 week after surgery. Patient was made aware of the nutrition deficiency should she fail to take supplementation. BMI of 30.56 S/P Bariatric Surgery : s/p: Laparoscopic Sleeve Gastrectomy. Date of surgery??03/09/2021??@ [facility] by??Dr. Mendoza. ?? Doing well postoperatively. ?? May use fibre supplementation like Bene fiber 1-2 teaspoon twice daily in the protein supplementation to prevent constipation. ?? Patient is status post hysterectomy. ?? GERD/ history of pyloric ulcer She reports reflux symptoms on occasion. She is not on current therapy. ?? Will proceed with Esophagogastroduodenoscopy for evaluation of post sleeve gastrectomy reflux. The procedure was described in detail to the patient. Risks discussed including bleeding, perforation, infection, and need for subsequent procedure. She would like to proceed. NPO following Midnight priorto procedure. Written instructions regarding procedure was given to the patient prior to leaving. Colon cancer screening She has history of Colonoscopy on 08/09/2019, patient??reports normal. Patient is due for screening colonoscopy based on age. Patient does have family history of colon cancer, grandfather. Patient reports she is scheduled on 08/25/[address] Bailey at [facility] in [facility]. ?? Arthritis Due to being overweight and having extreme wear and tear of lower extremity joints patient is developing joint pain and arthritis. This should be alleviated after surgery and weight loss. Currently to continue with pain medication PRN. ? History of??Smoking addiction?? She??stopped smoking ??in June 2020.?She denies smoking at this time.?Explained to her the risk of development of complications with smoking after bariatric surgery.? History of Vitamin D Deficiency Not on supplementation. Last Vitamin D level normal on labs completed 02/18/2022. will obtain updated lab Hyperparathyroidism Patient was found to have elevated PTH with labs completed 02/18/2022, vitamin-D level normal at that time. Will obtain updated labs. History of iron deficiency Patient has history of iron deficiency. She is on current supplementation. Will obtain updated ironlabs. Vitamin B1 Patient had low, normal vitamin B1 level on labs completed 02/18/2022. She is compliant with her multivitamin, centrum Silver 1 tablet twice daily. Will obtain updated vitamin B1 lab Abdominal pannus Patient has significant abdominal pannus following weight loss after bariatric surgery. Patient reports issues with moisture within the skin folds. Patient reports fungal issues within the umbilicus.Patient keeps the area is clean and dry as possible. Patient has use nystatin powder in the past with good results. Patient has ongoing intermittent issues. Patient is interested in panniculectomy. Patient would like to lose an additional 10 lb. Will schedule follow-up in [address] Hoang discuss panniculectomy. History of hypertension Patient has history of hypertension requiring medication intervention prior to bariatric surgery. She reports that she has been off of this medication for some time. Patient presented to the office today with blood pressure 138/100 and reassessed at 148/108. Patient reports recently at work when she has checked her blood pressure her diastolic has been 100 or greater. Patient was recommended follow-up with her primary care provider. I counseled the patient on continuing Behavior [...] least 10 minutes per day. Labs ordered: Vitamin-D, PTH, vitamin B1, iron profile; written orders sent with patient. Plan : as above recommendation. Follow up with: Surgeons / PA/ LEATHER STITCHER : [address] Schmidt to discuss panni and 1 week after EGD Dietitian: as scheduled. She verbalized understanding and is agreeable to this plan after shared decision making with patient. SANGEETHA Grigsby CC: No primary care provider on file. documented in this encounter Plan of Treatment Upcoming Encounters Date Type Department Care Team (Late st Contact Info) Description 03/15/2025 10:00 AM CDT Office Visit [facility] Weight Management Services [address] [place] [address] Vianey Llanes APRN-CNP [address] [place] [address] 03/15/2025 10:30 AM CDT Clinical Support [facility] Weight Management Services [address] [place] [address] documented as of this encounter Results * VITAMIN B1 (12/30/2022 10:30 AM SALES SUPERINTENDENT) Pathologist [facility] [place] Vitamin B1 Whole Blood 111 70 - 180 nmol/L 01/03/2023 7:30 AM SALES SUPERINTENDENT [employer] ([facility]) Comment: INTERPRETIVE INFORMATION: Vitamin B1, Whole Blood This assay measures the concentration of thiamine diphosphate (TDP), the primary active form of vitamin B1. Approximately 90 percent of vitamin B1 present in whole blood is TDP. Thiamine and thiamine monophosphate, which comprise the remaining 10 percent, are not measured. This test was developed and its performance characteristics determined by [facility]. It has not been cleared or approved by the US Food and Drug Administration. This test was performed in a CLIA certified laboratory and is intended for clinical purposes. Performed By: [employer] [address] [place] [address] Sustainability Project Coordinator: Zach Bello MD, PhD Blood BLOOD SPECIMEN / Unknown Lab Venipuncture / Unknown 12/30/2022 10:30 AM SALES SUPERINTENDENT 12/30/2022 10:41 AM SALES SUPERINTENDENT Vianey Llanes COMPUTER SYSTEMS SOFTWARE ENGINEERCUTLER [facility]MY [facility] - CHEMISTRY ORDERABLES Performing Organization Address [facility] de Phone Number [facility] [[email or web address]] [employer] ([facility]) [address] [place] [address] * (ABNORMAL) PTH INTACT+CALCIUM (12/30/2022 10:30 AM SALES SUPERINTENDENT) PTH Intact 39 15 - 65 pg/mL 01/01/2023 1:23 PM SALES SUPERINTENDENT [facility] [[email or web address]] [employer] ([facility]) Calcium 10.1(H) 8.6 - 10.0 mg/dL 01/01/2023 1:23 PM SALES SUPERINTENDENT [facility] [[email or web address]] [employer] ([facility]) Comment: Performed By: [employer] [address] [place] [address] Sustainability Project Coordinator: Zach Bello MD, PhD Blood BLOOD SPECIMEN / Unknown Lab Venipuncture / Unknown 12/30/2022 10:30 AM SALES SUPERINTENDENT 12/30/2022 10:41 AM SALES SUPERINTENDENT Vianey Llanes [facility]UTL[facility] - CHEMISTRY ORDERABLES Performing Organization Address City/[facility] Co de Phone Number [facility] [[email or web address]] [employer] [facility]) [address] [place] [address] * (ABNORMAL) VITAMIN D 25-HYDROXY (12/30/2022 10:30 AM SALES SUPERINTENDENT) Vitamin D, 25 Hydroxy 28.2(L) 30 - 100 ng/mL 12/30/2022 11:22 AM SALES SUPERINTENDENT [facility] Blood BLOOD SPECIMEN / Unknown Lab Venipuncture / Unknown 12/30/2022 10:30 AM SALES SUPERINTENDENT 12/30/2022 10:41 AM SALES SUPERINTENDENT Narrative [facility] - 12/30/2022 11:22 AM [facility] Reference Values: The recommendation for 25-Hydroxy Vitamin [...] performed to confirm the result. Vianey Llanes APRN-[facility] - CHEMISTRY ORDERABLES Performing Organization Address [facility] de Phone Number [facility] [address] * IRON + TRANSFERRIN PANEL (12/30/2022 10:30 AM [facility]) Iron 98 50 - 170 ug/dL 12/30/2022 11:08 AM [facility] Transferrin 275 180 - 382 mg/dL 12/30/2022 11:08 AM [facility] TIBC Calculated 344 261 - 497 ug/dL 12/30/2022 11:08 AM [facility] Iron Saturation % 29 11 - 45 % 12/30/2022 11:08 AM [facility] Blood BLOOD SPECIMEN / Unknown Lab Venipuncture / Unknown 12/30/2022 10:30 AM SALES SUPERINTENDENT 12/30/2022 10:41 AM [facility] Vianey Llanes COMPUTER SYSTEMS SOFTWARE ENG[facility] - CHEMISTRY ORDERABLES Performing Organization Address [facility] de Phone Number [facility] [address] documented in this encounter Visit Diagnoses Diagnosis Class 1 obesity due to excess calories with serious comorbidity and body mass index (BMI) of 30.0 to 30.9 in adult- Primary Vitamin D deficiency Gastroesophageal reflux disease, unspecified whether esophagitis present 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
--- OUTSIDE RECORDS SUMMARY | 2024-11-04 22:59 | XMS_ITS | Encounter Summary ---
Author Organization [facility] Address [address] [place] [address] Care Team Providers Care Director Of Sustainability Name Role Phone Unavailable Primary Care Provider Unavailabl e Encounter Details Date Type Department Care Team (Latest Contact Info) Description 03/06/2021 6:10 AM CDT - 03/06/2021 6:42 AM CDT Hospital Encounter [facility] [address] [place], [place] [id number] Tram P[place]otn, MIG WELDER-[address] [address] Discharge Disposition: Home or Self Care Social History Tobacco Use Types Packs/Day Years Used Date Smoking Tobacco: Former Cigarettes Q uit: 06/2020 Smokeless Tobacco: Never Alcohol Use Standard Drinks/Week Comments Not Currently 14 (1 standard drink = 0.6 oz pu re alcohol) Sex and Gender Information Value Date Recorded Sex Assigned at Female 11/25/2020 1:10 PM MANAGER HYDRAULIC Gender Identity Female 11/25/2020 1:10 PM MANAGER HYDRAULIC Sexual Orientation Straight 02/02/2021 4: 18 PM [...] No 02/02/2021 documented as of this encounter Medications at Time of Discharge Medication Sig Dispensed Refills Start Date End Date acetaminophen (TYLENOL) 500 MG tabletIndications:B ariatric surgery status Pt is to take 2 tabs po every 6 hours for basal pain 24 tablet 02/27/2021 04/10/2021 omeprazole (PRILOSEC) 40 MG capsuleIndications: Gastroesophageal Reflux Disease Take 1 (one) capsule by mouth daily before breakfast Reasons: Gastroesophageal Reflux Disease 30 capsule 3 03/02/2021 08/04/2022 ondansetron, disintegrating, (ZOFRAN ODT) 4 MG tabletIndications:B ariatric surgery status Take 1 (one) tablet by mouth every 4 hours as needed for Nausea/Vomiting Allow tablet to dissolve on the tongue 30 tablet 2 02/27/2021 04/10/2021 oxyCODONE, immediate release, (ROXICODONE) 5 MG tabletIndications:B ariatric surgery status Take 1 to 2 tabs prn every 4 hours for pain. Max of 6 tabs in 24hrs. 12 tablet 02/27/2021 04/10/2021 Probiotic Product ([employer]) capsuleIndications: Bariatric surgery status Take 1 (one) capsule by mouth once daily 30 capsule 3 02/27/2021 06/24/2021 scopolamine (TRANSDERM-SCOP) 1 MG patchIndications:Christina vargas Apply 1 patch to skin pre-op for 1 dose, place 1 patch behind ear night before surgery Reasons: Operation 1 patch 02/27/2021 03/10/2021 ursodiol (ACTIGALL) 300 MG capsuleIndications: Post op laproscopic sleeve gastrectomy Take 1 (one) capsule by mouth 2 times daily for 90 days Do Not start until 1 week post op. Reasons: Post op laproscopic sleeve gastrectomy 60 capsule 2 02/27/2021 05/28/2021 vitamin D, ergocalciferol, (DRISDOL) 1.25 MG (56709 UT) capsuleIndications: Vitamin D Deficiency Take 1 capsule by mouth every 7 days Reasons: Vitamin D Deficiency 4 capsule 3 09/17/2020 03/10/2021 documented as of this encounter Plan of Treatment Upcoming Encounters Date Type Department Care Team (Late st Contact Info) Description 03/15/2025 10:00 AM CDT Office Visit [facility] Weight Management Services [address] [place] [phone] Vianey Llanes, MIG WELDER-HUMAN RESOURCES COMPLIANCE MANAGER [address] [place] [address] 03/15/2025 10:30 AM CDT Clinical Support [facility] [address] [place] [address] documented as of this encounter Procedures Procedure Name Priority Date/Time Associated Diagnosis Comments SARS-COV-2 (COVID-19) PANEL (SOIL) Routine 03/06/2021 6:11 AM CDT Pre-op exam SARS-COV-2 (COVID-19) IN HOUSE Routine 03/06/2021 6:11 AM CDT Pre-op exam documented in this encounter Results * SARS-COV-2 (COVID-19) IN HOUSE (03/06/2021 6:11 AM CDT) COVID-19 PCR Not detected Not detected 03/07/2021 5:24 AM CDT [facility] Microbiology SPECIMEN FROM NASOPHARYNGEAL STRUCTURE / Unknown Collection / Unknown 03/06/2021 6:11 AM CDT 03/06/2021 8:43 AM CDT Narrative [facility] - 03/07/2021 5:24 AM CDT This nucleic acid amplification assay performance was validated by [facility]. This test has been authorized [...] Mendoza MD LAB - MICROBIOLOGY O RDERABLES [facility] [address] [place], [place] [address], [facility] [phone] documented in this encounter Visit Diagnoses Diagnosis Pre-op exam Preoperative examination, unspecified documented in this encounter Additional Health Concerns Infection Onset Date Last Indicated Resolved Time COVID-19 Under Investigation 03/06/2021 03/06/2021 03/07/2021 5:24 AM CDT documented as of this encounter
--- OUTSIDE RECORDS SUMMARY | 2024-11-04 22:59 | XMS_ITS | Encounter Summary ---
Author Organization [facility] Health Address [address] [place] [address] Care Team Providers Care Supervisor [employer] Name Role Phone Unavailable Primary Care Provider Unavailabl e Encounter Details Date Type Department Care Team (Latest Contact Info) Description 03/06/2021 Travel Social History Tobacco Use Types Packs/Day Years Used Date Smoking Tobacco: Former Cigarettes Q uit: 06/2020 Smokeless Tobacco: Never Alcohol Use Standard Drinks/Week Comments Not Currently 14 (1 standard drink = 0.6 oz pu re alcohol) Sex and Gender Information Value Date Recorded Sex Assigned at Female 11/25/2020 1:10 PM BOILER ROOM HELPER Gender Identity Female 11/25/2020 1:10 PM BOILER ROOM HELPER Sexual Orientation Straight 02/02/2021 4: 18 PM [...] No 02/02/2021 documented as of this encounter Plan of Treatment Upcoming Encounters Date Type Department Care Team (Late st Contact Info) Description 03/15/2025 10:00 AM CDT Office Visit [facility] [address] [place] [phone] Vianey Llanes, JAVA J2EE LEAD-PAPER BAG PRESS OPERATOR [address], [place] [id number] 03/15/2025 10:30 AM CDT Clinical Support [facility] [address] [place] [phone] documented as of this encounter Visit Diagnoses Not on filedocumented in this encounter Additional Health Concerns Infection Onset Date Last Indicated Resolved Time COVID-19 Under Investigation 03/06/2021 03/06/2021 03/07/2021 5:24 AM CDT documented as of this encounter
--- OUTSIDE RECORDS SUMMARY | 2024-11-04 22:59 | XMS_ITS | Encounter Summary ---
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 Name Role Phone Unavailable Primary Care Provider Unavailabl e Reason for Visit * Reason Onset Date Comments Surgical Followup 03/11/2021 Encounter Details Date Type Department Care Team (Late st Contact Info) Description 03/11/2021 Telephone [facility] [address] [place] [phone] Rehan Mendoza MD [address] [place] [phone] Surgical Followup Social History Tobacco Use Types Packs/Day Years Used Date Smoking Tobacco: Former Cigarettes Q uit: 06/2020 Smokeless Tobacco: Never Alcohol Use Standard Drinks/Week Comments Not Currently 14 (1 standard drink = 0.6 oz pu re alcohol) Sex and Gender Information Value Date Recorded Sex Assigned at Female 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 Are you having any high fever? NO If so, is it greater than 100.5? N/A 2. Are you having any shortness of breath? NO 3. Are you taking deep breaths and coughing? Doing breathing exercises 4. Are you working with your incentive spirometer? YES And how often? Encouraged pt to use at leastQID and more often is better. 5. Is there any swelling in your legs? NO If yes, is it getting worse or the same as prior to surgery? N/A 6. Is it painful to move your legs or fingers? NO 7. Are you taking a water pill before surgery? NO Have you restarted after surgery? N/A 8. Please rate your pain level? 7-8 on 0-10 scale 9. Where is the pain? R side 10. Is there an aggravating factor? Movement, pt reports she is wearing binder 11. Is the pain medication helping? Taking Tylenol but not helping much. Patient states she is not wanting to take oxycodone. Suggested to pt to try taking Tylenol q6h and then taking oxycodone PRN. Explained that pain should improve daily so should not have to continue with oxycodone but may help today. Asked pt to call back if pain not improving or worsening. Pt v/u. 12.Do you have any nausea/vomitting? NO Are you taking any medication for it? N/A 13. Can you keep any liquid down? YES, has got in 5-6oz so far today, started around 7am. Explainedto pt to try to increase fluids. Should aim for around 2oz q30min and once tolerating then slowly increasing amount until reach daily goal of 64oz/day. Asked pt to call back if having any difficulty getting in recommended amount of fluids. Pt v/u. Encourage small amounts of liquid frequently (48-64 oz/day). 14. Are you drinking your protein shakes? How many/how much? YES 15 Do you feel light headed? NO Does it worsen when you stand up from lying down? N/A 16. Are you making adequate urine? YES 17. Have you had a bowel movement after surgery? NO, explained that can start stool softener If no, are you taking stool softeners or would you like to try a suppository? 18. Are you getting up and walking around? Lying can cause pneumonia and clots. YES, 19. Your follow up appt is scheduled for: 03/18/21 20. Do you have a scheduled follow up appointment with your PCP? NO, pt will call to schedule 21. Patient verified having Dr. Mendoza/Dr. Schmidt's cell # and has number to hospital switchboard. YES documented in this encounter Plan of Treatment Upcoming Encounters Date Type Department Care Team (Late st Contact Info) Description 03/15/2025 10:00 AM CDT Office Visit [facility] [address] [place] [phone] Vianey Llanes, ALBERENE STONE SETTER-DIRECTOR INDUSTRIAL [address] [place] [address] 03/15/2025 10:30 AM CDT Clinical Support [facility] [address] [place] [phone] documented as of this encounter Visit Diagnoses Not on filedocumented in this encounter
--- OUTSIDE RECORDS SUMMARY | 2024-11-04 22:59 | XMS_ITS | Encounter Summary ---
Author Organization [facility] Address [address] [place] [address] Care Team Providers Care Technical Writer And Editor Name Role Phone Unavailable Primary Care Provider Unavailabl e Reason for Visit * Auth/Cert (Routine) Specialty Diagnoses / Procedures Referred By Veronica t Referred To Contact Diagnoses Gastroesophageal reflux disease, unspecified whether esophagitis present S/P bariatric surgery Gastroesophageal reflux disease, unspecified whether esophagitis present [K21.9] S/P bariatric surgery [Z98.84] Procedures ESOPHAGOGASTRODUODENOSCOPY (EGD) BIOPSY Referral ID Status Reason Start Date Expiration Date Visits Re quested Visits Authorized [id number] 1 1 Encounter Details Date Type Department Care Team (Latest Contact Info) Description 12/08/2022 7:14 AM SWITCH REPAIRER - 12/08/2022 10:14 AM [facility] Hospital Encounter [facility] [address] [place] [address] Raisa Schmidt MD [address] [place] [phone] Surgery General Discharge Disposition: Home or Self Care Social History Tobacco Use Types Packs/Day Years Used Date Smoking Tobacco: Former Cigarettes Q uit: 06/2020 Smokeless Tobacco: Never Tobacco Cessation:Counseling Given: Not Answered Alcohol Use Standard Drinks/Week Comments Not Currently 0 (1 standard drink = 0.6 oz [...] Assigned at Female 11/25/2020 1:10 PM SWITCH REPAIRER Gender Identity Female 11/25/2020 1:10 PM SWITCH REPAIRER Sexual Orientation Straight 02/02/2021 4: 18 PM CDT documented as of this encounter Last Filed Vital Signs Vital Sign Reading Time Taken Comments Blood Pressure 138/94 12/08/2022 9:57 AM SWITCH REPAIRER Pulse 57 12/08/2022 9:57 AM SWITCH REPAIRER Temperature 36.6 ??C (97.9 ??F) 12/08/2022 9:50 AM CS T Respiratory Rate 16 12/08/2022 9:50 AM SWITCH REPAIRER Oxygen Saturation 100% 12/08/2022 9:57 AM SWITCH REPAIRER Inhaled Oxygen Concentration - - Weight 74.8 kg (164 lb 14.5 oz) 12/08/2022 7:37 AM SWITCH REPAIRER Height 154.9 cm (5' 1 ) 12/08/2022 7:37 AM SWITCH REPAIRER Body Mass Index 31.16 12/08/2022 7:37 AM SWITCH REPAIRER documented in this encounter Functional Status Functional [...] No 12/08/2022 documented as of this encounter Medications at Time of Discharge Medication Sig Dispensed Refills Start Date End Date CALCIUM CITRATE PO Multiple Vitamins-Minerals (CENTRUM SILVER PO) nystatin (MYCOSTATIN) 408528 UNIT/GM cream Apply to affected area 2 times daily 15 g 2 03/10/2022 Ferrous Sulfate (IRON PO) 03/16/2024 hydroCHLOROthiazide (Hydrodiuril) 25 MG tablet 11/29/2022 01/13/2023 documented as of this encounter H&P Notes * Raisa Schmidt MD - 12/08/2022 9:07 AM CST Admit Date 12/08/2022 This patient? s prior H&P was reviewed, the patient was examined and no change has occurred in the patient's condition since the prior H&P was completed. Raisa Schmidt MD CH REPAIRER Source Note - Rasia Schmidt MD - 11/11/2022 9:49 AM SWITCH REPAIRER [facility] [place] [address] . . Date of encounter: No admission date for patient encounter. Pt Name: Maria Del Carmen Ray : 1975 AGE: [age] year old SEX: female CSN: [id number] Visit type: Weight Management Follow Up Patients Primary care provider is : No primary care provider on file. Patient Verification & Telemedicine Based Consent I am proceeding with this evaluation at the direct request of the patient. I have verified this is the correct patient and have obtained verbal consent from the patient/surrogate to perform this voluntary telemedicine encounter evaluation. I have explained risks (including potential loss of confiden tiality), benefits, alternatives, and the potential need for subsequent face to face care. Patient/surrogate understands that there is a risk of medical inaccuracies given that our recommendations will be made based on reported data. Knowing that there is a risk that this information is not reported accurately, and that the telemedicine audio, or data feed may be incomplete, the patient agrees toproceed with evaluation and holds us harmless knowing these risks. In this evaluation, we will be providing recommendations only. The patient/surrogate has been notified that other healthcare professionals (including students, residents and technical personnel) may be involved in this audio evaluation. All laws concerning confidentiality and patient access to medical records and copies of medicalrecords apply to telemedicine. I have reviewed this above verification and consent paragraph with the patient/surrogate. Subjective: Maria Del Carmen Ray is a 47 year old female s/p laparoscopic sleeve gastrectomy done 03/09/[address] Mendoza. Patient has lost 88.6 lb following sleeve gastrectomy. She continues losing weight. She lost an additional 5.8 lb since last visit. Because of significant weight loss she has developed an overhanging pannus. She reports skin breakdown and rashes within her skin folds. She is using nystatin cream and powder for this. She desires panniculectomy. Patient is taking 60 grams of proteins supplements daily. Patient is taking 64 oz of fluid per day. Doing treadmill exercises and walking at work for exercise daily. Patient is taking Bariatric multivitamins. Patient is not having Reflux, Vomiting and Dysphagia, The patient is not having any pain.. She is scheduled for routine postoperative EGD following sleeve gastrectomy on 12/08/2022. Bowel movement are Normal. Has the patient [...] Loss since last visit in lbs : 10lb Total Wt Loss in lb: 28.6 lb [...] Total Wt Loss in lb: 88.6 lb Obesity History Years at current weight? 13 Years at 35 pounds overweight? 13 Years 100 pounds overweight? Age patient started to diet? 41 Maximum weight reached? 255 Most significant weight loss: Amount of weight loss 20lb Months weight loss sustained 2 months Method of weight loss phentermine BMI: Body mass index is 29.58 kg/m??. Past Medical History: Diagnosis Date ??? GERD (gastroesophageal reflux disease) ??? HTN (hypertension) ??? Morbid obesity (CMS/HCC) 03/09/2021 Past Surgical History: Procedure Laterality Date [...] file Tobacco Use ??? Smoking status: Former Types: Cigarettes Quit date: 06/2020 Years since quittin.4 ??? Smokeless tobacco: Never Vaping Use ??? Vaping Use: Never used [...] Outpatient Medications Marked as Taking for the 11/11/22 encounter (Video Visit) with Fab Schmidt MD Medication Sig ??? CALCIUM CITRATE PO ??? Ferrous Sulfate (IRON PO) ??? Multiple Vitamins-Minerals (CENTRUM SILVER PO) ??? nystatin (MYCOSTATIN) 023207 UNIT/GM cream Apply to affected area 2 times daily (Not in a hospital admission) Allergy: Allergies Allergen Reactions ??? Amoxicillin Rash and Unknown ROS: A comprehensive review of systems was negative except as described in HPI. Objective: Ht 1.6 m (5' 3 ) Wt 75.8 kg (167 lb) Comment: per pt Weight: 75.8 kg (167 lb) (per pt) Height: 160 cm (5' 3 ) Body mass index is 29.58 kg/m??. Constitutional: Alert, awake and oriented without any apparent discomfort. Abdomen: Abdomen was obese, with overhanging pannus visualized on video. Labs Recent Labs Component Name 03/10/213 03/09/21 1005 WBC 10.7* 9.7 RBC 4.37 4.19 HGB 13.3 12.9 HCT 39.7 38.6 PLTCOUNT 243 220 Recent Labs Component Name 03/10/21 0413 03/09/21 1005 SODIUM 139 139 POTASSIUM 3.5 3.8 CO2 22 22 BUN 8.7* 11.7 CREATININE 0.91 0.96 Recent Labs Component Name 03/10/21 0413 03/09/21 1005 GLUCOSE 101 107 Recent Labs Component Name 03/10/213 03/09/21 1005 AST 52* 42* ALT 54 50 No results for input(s): LDL, HDL, TRIG, TSH in the last 68494 hours. No results for input(s): HGBA1C in the last 29969 hours. No results for input(s): PT, PTT, INR, TSH in the last 82166 hours. No results for input(s): TSH in the last 56787 hours. No results for input(s): IRON in the last 35833 hours. No results for input(s): [id number] in the last 20084 hours. No results for input(s): VITAMINA in the last 12704 hours. No results for input(s): IRON in the last 44053 hours. No results for input(s): VITK1 in the last 45707 hours. No results for input(s): [id number] in the last 82711 hours. No results for input(s): ALPHATOCOPH in the last 73183 hours. No results for input(s): GAMMATOCOPH in the last 55456 hours. No results for input(s): MAGMGDL in the last 75125 hours. Recent Labs Component Name 03/10/21 0413 PHOS 2.5 Some lab results will be in paper format so may be scanned in the EMR. Imaging studies No results found. Some Imaging studies results will be in paper format so may be scanned in the EMR. Assessment and Plan Overweight: S/P Bariatric Surgery :??s/p: Laparoscopic Sleeve Gastrectomy. Date of surgery??03/09/2021??@ [facility] by??Dr. Mendoza. Change in weight as noted in the weight history above. Total weight loss since starting the program: 88.6 pounds Current BMI Body mass index is 30.56 kg/m??. with weight of Weight: 172 lb 8 oz (78.2 kg) . ?? Patient is losing weight. Patient is controlling Carbs and Sugar well. Controlling portions well. ?? Patient was recommended to take about 80 [...] deficiency should she fail to take supplementation. ?? GERD/ history of pyloric ulcer She [...] given to the patient prior to leaving. ?? Colon cancer screening Last colonoscopy was 08/25/[address] Bailey at [facility] in [facility]. Shewas recommended repeat colonoscopy in 5 years. ?? History of??Smoking addiction?? She??stopped smoking??in June 2020.?She denies smoking at this time.?Explained to her the risk of development of complications with smoking after bariatric surgery.? History of Vitamin D Deficiency Not on supplementation. ??Last Vitamin D level normal on labs completed 02/18/2022. ? Hyperparathyroidism Patient was found to have elevated PTH with labs completed 02/18/2022, vitamin-D level normal at that time. Will receive annual labs in the February of 2023. ?? History of iron deficiency Patient has history of iron deficiency. She is on current supplementation. Will obtain updated ironlabs with annual labs in 02/2023. ?? Vitamin B1 Patient had low, normal vitamin B1 level on labs completed 02/18/2022. She is compliant with her multivitamin, centrum Silver 1 tablet twice daily. ?? Abdominal pannus Patient has significant abdominal pannus following weight loss after bariatric surgery. Patient reports issues with moisture within the skin folds. Patient reports fungal issues within the umbilicus.Patient keeps the area is clean and dry as possible. Patient has use nystatin powder to help with these issues. Patient is interested in panniculectomy. She is an excellent candidate. I will refer her to Dermatology to confirm she has exhausted all nonsurgical options. Will also plan to obtain pre-albumin with annual lab work February 2023. At this point patient desires additional weight loss. She continues losing weight following sleeve gastrectomy. I would like for her to be at her lowest weightand stable for 6 months prior to proceeding with panniculectomy. Will refer the patient to Dr. Gee for additional weight loss prior to panniculectomy. ?? I counseled the patient on continuing Behavior [...] plan, at least 10 minutes per day. She verbalized understanding and is agreeable to this plan after shared decision making with patient. Patient location: Home This encounter was performed using: audio and video Total time spent with the patient: 15 minutes The plan was reviewed with the patient and the patient confirmed understanding of the plan and all follow-up steps. Patient is agreeable with this plan after shared decision making with patient. All aspects of patient's medical history were reviewed and updated as documented in Epic. Raisa Schmidt MD CH REPAIRER documented in this encounter OR Notes * Operative - Raisa Schmidt MD - 12/08/2022 9:00 AM CST Esophagogastroduodenoscopy Procedure Note Date of Surgery: 12/08/22 Surgeon(s) and Role: * Raisa Schmidt MD - Primary Public Interviewer: Smiley Rodriguez RN Scrub Person: Jo Blandon RN Procedure: 1. Esophagogastroduodenoscopy 2. Antral biopsy Pre-operative Diagnosis: Pre-Op Diagnosis Codes: * Gastroesophageal reflux disease, unspecified whether esophagitis present [K21.9] * S/P bariatric surgery [Z98.84] Post-operative Diagnosis: Post-Op Diagnosis Codes: * Gastroesophageal reflux disease, unspecified whether esophagitis present [K21.9] * S/P bariatric surgery [Z98.84] Sedation: Monitored Anesthesia Care Procedure Details The gastroscope was advanced without difficulty through the esophagus and into the stomach. Air wasinsufflated. The scope was then advanced on to the second portion of the duodenum. A careful inspection was made as the gastroscope was withdrawn. The patient was noted to have normal duodenum. The scope was then withdrawn noting normal gastric antrum. Biopsy taken here to rule out H pylori. Scope was then withdrawn noting evidence of sleeve gastrectomy initiated 8 cm proximal to the pylorus. There was no evidence of tight angulation at the incisura. No evidence of retained fundus. There was nohiatal hernia. There was no bile within the stomach. The scope was then withdrawn noting a normal Z-line. The stomach was then desufflated and the scope withdrawn noting normal proximal esophagus andnormal cords. Photodocumentation was obtained. Findings: - normal duodenum -normal gastric antrum -evidence of sleeve gastrectomy initiated 8 cm proximal to the pylorus with no evidence of tight angulation at the incisura and no retained fundus -no hiatal hernia -normal Z-line -normal esophagus -normal cords Specimens: ID Type Source Tests Collected by Time Destination A : Antrum Biopsy to rule out H. pylori Pathology/Cytology Antrum Biopsy GROSS + MICRO EXAM (ILL) Raisa Schmidt MD 12/08/2022 0916 EBL: minimal Complications: None, patient tolerated the procedure well. Disposition: PACU - hemodynamically stable. Condition: stable Recommendations: -Await pathology., -Follow symptoms. CH REPAIRER documented in this encounter Plan of Treatment Upcoming Encounters Date Type Department Care Team (Late st Contact Info) Description 03/15/2025 10:00 AM CDT Office Visit [facility] [address] [place] [address] Vianey Llanes, ON AIR DIRECTOR-RAIL OPERATIONS CONTROLLER [address], [place] [address] 03/15/2025 10:30 AM CDT Clinical Support [facility] [address] [place] [phone] Scheduled Orders Name Type Priority Associated Diagnoses Orde r Schedule EGD GI Routine ONCE for 1 Occ urrences starting 12/08/2022 until 12/08/2022 documented as of this encounter Procedures Procedure Name Priority Date/Time Associated Diagnosis Comments CARDIAC RHYTHM STRIP ORDER 12/09/2022 12:15 PM SWITCH REPAIRER GROSS + MICRO EXAM (ILL) Routine 12/08/2022 9:16 AM SWITCH REPAIRER Gastroesophageal reflux disease, unspecified whether esophagitis present S/P bariatric surgery NV EGD FLEX TRANSORAL W BX SNGL OR MULT 12/08/2022 9:08 AM SWITCH REPAIRER Gastroesophageal reflux disease, unspecified whether esophagitis present S/P bariatric surgery Special Needs Arrival time:0730 documented in this encounter Results * CARDIAC RHYTHM STRIP ORDER (12/09/2022 12:15 PM SWITCH REPAIRER) Narrative 12/09/2022 12:15 PM SWITCH REPAIRER Ordered by an unspecified provider. Scanned Document CARDIAC SERVICES ORD ERABLES * GROSS + MICRO EXAM (ILL) (12/08/2022 9:16 AM SWITCH REPAIRER) Case Report Surgical Pathology Report ? Case: [id number] ? Authorizing Provider: ??Raisa Schmidt MD ??Collected: ? 12/08/2022 09:16 AM ? Ordering Location: ? [facility] ?Received: ?12/08/2022 02:21 PM ? Pathologist: ? Chuckie Lujan MD ? Specimen: ?Antrum Biopsy, Antrum Biopsy to rule out H. pylori ? 12/09/2022 11:00 AM [facility] Final Diagnosis Stomach, antrum, biopsy: - Fragments of antral mucosa with no histopathologic abnormality - No Helicobacter pylori organisms identified (H&E exam) 12/09/2022 11:00 AM [facility] Microscopic Description and Comment Microscopic examination is performed and substantiates the above diagnosis. 12/09/2022 11:00 AM [facility] Clinical History Gastroesophageal reflux disease, status post bariatric surgery Findings: - normal duodenum -normal gastric antrum -evidence of sleeve gastrectomy initiated 8 cm proximal to the pylorus with no evidence of tight angulation at the incisura and no retained fundus -no hiatal hernia -normal Z-line -normal esophagus -normal cords 12/09/2022 11:00 AM [facility] Gross Description The requisition and specimen(s) are identified with the patient's name (Maria Del Carmen Ray), MRN, and . Received in formalin, specimen antrum biopsy to rule out H. Pylori , are 2 crow-pink tissues, 0.4 x 0.3 x 0.1 cm and 0.8 x 0.2 x 0.1 cm. The specimen is submitted in toto in cassette A1. AW 12/09/2022 11:00 AM [facility] Disclaimer The performance characteristics of all immunohistochemical and indirect immunofluorescence stains (if any) cited in this report were determined by the Histopathology Laboratory of [facility]. Some of these tests were developed by [...] H&E slides [place]. [address] (CLIA# [id number]) unless otherwise specified. This case was interpreted by the [facility] Department of Pathology. When applicable, select reference laboratory testing is performed at the [facility] Pathology [facility], [address] [place] [id number]. 12/09/2022 11:00 AM [facility] Embedded Images 12/09/2022 11:00 AM [facility] Pathology/Cytology GASTRIC ANTRAL BIOPSY SPECIMEN / Unknown 12/08/2022 9:16 AM SWITCH REPAIRER 12/08/2022 2:21 PM [facility] Comment:Pre-op diagnosis: Gastroesophageal reflux disease, unspecified whether esophagitis present [K21.9] S/P bariatric surgery [Z98.84] Raisa Schmidt MD LAB - PATHOLOGY/ CYTOLOGY ORDERABLES Performing Organization Address City/State/[facility] Co de Phone Number [facility] [address] documented in this encounter Visit Diagnoses Diagnosis Gastroesophageal reflux disease, unspecified whether esophagitis present S/P bariatric surgery Bariatric surgery status documented in this encounter Administered Medications Inactive Administered Medications - up to 3 most recent administrations Medication Order MAR Action Action Date Dose Rate Site 0.9% NaCl injection 3 mL 3 mL, Intracatheter, PRE-PROCEDURE MULTIPLE, Starting on Tue12/08/22 at 0716, Until Tue12/08/22 at 1114, For Saline Lock flushes if one is inserted for Bronchoscopy/Endoscopy procedure., Pre-procedure (GI) famotidine (Pepcid) injection 20 mg 20 mg, Intravenous, PRE-OP ONCE, 1 dose, On Tue12/08/22 at 0730, Dilute 2 mL of injection with 0.9% NaCl or D5W solution to a volume of 5 to 10 ml. Push over a period of at least 2 minutes. Dilute with 0.9% NaCl, D5W solution, or SWI to a volume of 5 to 10 mL and administer over at least 2 minutes., Pre-op $ Given 12/08/2022 7:43 AM SWITCH REPAIRER 20 mg lactated ringers infusion at 75 mL/hr, Intravenous, PRE-OP CONTINUOUS, Starting on Tue12/08/22 at 0730, Until Tue12/08/22 at 1114 $ New Bag/Syringe 12/08/2022 7:42 AM SWITCH REPAIRER 75 mL/hr documented in this encounter Active and Recently Administered Medications Times are shown in SWITCH REPAIRER. Scheduled Medication Order 12/06/2022 12/07/2022 12/08/2022 0.9% NaCl injection 3 mL 3 mL, Intracatheter, PRE-PROCEDURE MULTIPLE, Starting on Tue12/08/22 at 0716, Until Tue12/08/22 at 1114, For Saline Lock flushes if one is inserted for Bronchoscopy/Endoscopy procedure., Pre-procedure (GI) famotidine (Pepcid) injection 20 mg (COMPLETED) 20 mg, Intravenous, PRE-OP ONCE, 1 dose, On Tue12/08/22 at 0730, Dilute 2 mL of injection with 0.9% NaCl or D5W solution to a volume of 5 to 10 ml. Push over a period of at least 2 minutes. Dilute with 0.9% NaCl, D5W solution, or SWI to a volume of 5 to 10 mL and administer over at least 2 minutes., Pre-op 0743 ($ Given - Prov ider: Annika Patton RN) naloxone (Narcan) injection 0.04 mg 0.04 mg, Intravenous, POST-OP MULTIPLE, Starting on Tue12/08/22 at 0926, Until Tue12/08/22 at 1114, If respirations are less than 8 per minute and O2 sat is less than 90%, bag/mask patient and notify anesthesia immediately. If directed to administer naloxone, dilute 0.4mg in 9mL normal saline for dilution of 0.04mg/mL. Administer 1mL over 30 seconds while observing the patient response and titrating to effect. If no response, continue IV naloxone at the same rate up to a total of 0.8 mg of diluted naloxone., PACU Continuous Medication Order 12/06/2022 12/07/2022 12/08/2022 lactated ringers infusion at 75 mL/hr, Intravenous, PRE-OP CONTINUOUS, Starting on Tue12/08/22 at 0730, Until Tue12/08/22 at 1114 0742 ($ New Bag/Syri nge - Provider: Annika Patton RN) documented in this encounter
--- OUTSIDE RECORDS SUMMARY | 2024-11-04 22:59 | XMS_ITS | Encounter Summary ---
Author Organization [facility] Address [address] [place] [address] Care Team Providers Care Revenue Tax Specialist Name Role Phone Unavailable Primary Care Provider Unavailabl e Encounter Details Date Type Department Care Team (Late st Contact Info) Description 12/24/2022 Orders Only [facility] Services [address] [place] [phone] Raisa Schmidt MD [address] [place] [address] History of tobacco use Social History Tobacco Use Types Packs/Day Years [...] Sex Assigned at Female 11/25/2020 1:10 PM ANIMAL DOCTOR Gender Identity Female 11/25/2020 1:10 PM ANIMAL DOCTOR Sexual Orientation Straight 02/02/2021 4: 18 PM [...] as of this encounter Progress Notes * Lesley Harkins LPN - 12/24/2022 7:49 AM CST Nicotine testing ordered. AL DOCTOR documented in this encounter Plan of Treatment Upcoming Encounters Date Type Department Care Team (Late st Contact Info) Description 03/15/2025 10:00 AM CDT Office Visit [facility] [address] [place] [address] Vianey Llanes, ITEM PROCESSING CLERK-VACUUM FORMING MACHINE OPERATOR [address] [place], [place] [address] 03/15/2025 10:30 AM CDT Clinical Support [facility] [address] [place] [phone] documented as of this encounter Results * NICOTINE + METABOLITES BLOOD (12/30/2022 10:30 AM ANIMAL DOCTOR) Nicotine <5 ng/mL 01/04/2023 1:35 AM ANIMAL DOCTOR [facility] ([facility]) Comment: Consistent with abstinence from nicotine-containing products [...] developed and its performance characteristics determined by [facility]. It has not been cleared or approved by the [place] Food and Drug Administration. This test was performed in a CLIA certified laboratory and is intended for clinical purposes. Performed By: [facility] [address] [place] [address] Occupational Health Nurse Manager: Zach Bello MD, PhD Cotinine <5 ng/mL 01/04/2023 1:35 AM ANIMAL DOCTOR [facility] ([facility]) Blood BLOOD SPECIMEN / Unknown Lab Venipuncture / Unknown 12/30/2022 10:30 AM ANIMAL DOCTOR 12/30/2022 10:41 AM ANIMAL DOCTOR Raisa Schmidt MD LAB - CHEMISTRY ORDERABLES [facility]) [address] [place] [address], [facility] documented in this encounter Visit Diagnoses Diagnosis History of tobacco use- Primary Personal history of tobacco use, presenting hazards to health documented in this encounter
--- OUTSIDE RECORDS SUMMARY | 2024-11-04 22:59 | XMS_ITS | Encounter Summary ---
Author Organization [facility] Health Address [address] [place] [address] Care Team Providers Care Room Maid Name Role Phone Unavailable Primary Care Provider Unavailabl e Reason for Visit * Reason Onset Date Comments Itching 03/09/2022 Navel Encounter Details Date Type Department Care Team (Late st Contact Info) Description 03/09/2022 Telephone [facility] [address] [place] [phone] Vianey Llanes, OBIEE CONSULTANT-SAIL FINISHER HAND [address] [place] [address] Itching (Navel) Social History Tobacco Use Types Packs/Day Years Used Date Smoking Tobacco: Former Cigarettes Q uit: 06/2020 Smokeless Tobacco: Never Alcohol Use Standard Drinks/Week Comments Not Currently 14 (1 standard drink = 0.6 oz pu re alcohol) Sex and Gender Information Value Date Recorded Sex Assigned at Female 11/25/2020 1:10 PM ROLL FORMER Gender Identity Female 11/25/2020 1:10 PM ROLL FORMER Sexual Orientation Straight 02/02/2021 4: 18 PM [...] encounter Miscellaneous Notes * Telephone Encounter - Lesley Harkins LPN - 03/09/2022 3:38 PM CDT Pt returned call regarding lab work we received. Pt also voices she noticed yesterday her navel wasitching with redness and cheesy . I voiced to send us a picture through [employer]. Pt voices she is currently at work and will send pictures later tonight. Pt is scheduled for appt on - 03/11/2022. documented in this encounter Plan of Treatment Upcoming Encounters Date Type Department Care Team (Late st Contact Info) Description 03/15/2025 10:00 AM CDT Office Visit [facility] Management Services [address] [place] [phone] Vianey Llanes APRN-SAIL FINISHER HAND [address] [place] [address] 03/15/2025 10:30 AM CDT Clinical Support [facility] Weight [facility] [address] [place] [phone] documented as of this encounter Visit Diagnoses Not on filedocumented in this encounter
--- OUTSIDE RECORDS SUMMARY | 2024-11-04 22:59 | XMS_ITS | Encounter Summary ---
Author Organization [facility] Health Address [address] [place] [address] Care Team Providers Care Office Machine Servicer Apprentice Name Role Phone Unavailable Primary Care Provider Unavailabl e Reason for Visit * Reason Onset Date Comments LABS ONLY 07/31/2021 iron deficiency Encounter Details Date Type Department Care Team (Late st Contact Info) Description 07/31/2021 Telephone [facility] [address] [place] [phone]/SIN LABS ONLY (iron deficiency) Social History Tobacco Use Types Packs/Day Years Used Date Smoking Tobacco: Former Cigarettes Q uit: 06/2020 Smokeless Tobacco: Never Alcohol Use Standard Drinks/Week Comments Not Currently 14 (1 standard drink = 0.6 oz pu re alcohol) Sex and Gender Information Value Date Recorded Sex Assigned at Female 11/25/2020 1:10 PM GRAVE DIGGER Gender Identity Female 11/25/2020 1:10 PM GRAVE DIGGER Sexual Orientation Straight 02/02/2021 4: 18 PM [...] encounter Miscellaneous Notes * Telephone Encounter - Jerrica Whitaker RD/LDN - 07/31/2021 11:45 AM CDT PC to pt regarding iron deficiency. Recommended pt begin iron supplementation. Recommended pt choose iron supplement (Ferrous Sulfate, Ferrous Gluconate, etc) and begin with 325 mg iron BID with 500-1,000 mg Vitamin C for repletion. Recommended pt take iron at least 1 hour apart (before and after) from foods/beverages high in calcium as well as protein shakes/other supplements to increase absorption. documented in this encounter Plan of Treatment Upcoming Encounters Date Type Department Care Team (Late st Contact Info) Description 03/15/2025 10:00 AM CDT Office Visit [facility] [address] [place] [phone] Vianey Llanes, HOME IMPROVEMENT ADVISOR-BROKER IN CHARGE [address], [place] [phone] 03/15/2025 10:30 AM CDT Clinical Support [facility] [address] [place] [phone] documented as of this encounter Visit Diagnoses Not on filedocumented in this encounter
--- OUTSIDE RECORDS SUMMARY | 2024-11-04 22:59 | XMS_ITS | Encounter Summary ---
Author Organization [facility] Health Address [address] [place] [address] Care Team Providers Care Account Manager Employee Benefits Name Role Phone Unavailable Primary Care Provider Unavailabl e Reason for Visit * Reason Onset Date Comments Refill Request 07/07/2021 Encounter Details Date Type Department Care Team (Late st Contact Info) Description 07/07/2021 Telephone [facility] [address] [place] [phone] Raisa Schmidt MD [address] [place] [phone] Refill Request Social History Tobacco Use Types Packs/Day Years Used Date Smoking Tobacco: Former Cigarettes Q uit: 06/2020 Smokeless Tobacco: Never Alcohol Use Standard Drinks/Week Comments Not Currently 14 (1 standard drink = 0.6 oz pu re alcohol) Sex and Gender Information Value Date Recorded Sex Assigned at Female 11/25/2020 1:10 PM OPEN SOURCE DEVELOPER Gender Identity Female 11/25/2020 1:10 PM OPEN SOURCE DEVELOPER Sexual Orientation Straight 02/02/2021 4: 18 PM [...] Telephone Encounter - Lesley Harkins LPN - 07/07/2021 10:19 AM CDT Pt called office and asked for a refill on omeprazole. 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 She voices trying to stop PPI in past, and had reflux. Pt voices she does not take medication everyday, justPRN. I voiced I will speak with provider regarding refill. Pt voices understanding. Pt uses [facility] in [place] for pharmacy. Spoke with Dr. Schmidt. Omeprazole 40 mg refilled with 3 refills. Script sent to pharmacy. documented in this encounter Plan of Treatment Upcoming Encounters Date Type Department Care Team (Late st Contact Info) Description 03/15/2025 10:00 AM CDT Office Visit [facility] [address] [place] [phone] Vianey Llanes, STERILIZER OPERATOR-ROTARY SLICING MACHINE OPERATOR [address] [place] [address] 03/15/2025 10:30 AM CDT Clinical Support [facility] [address] [place] [phone] documented as of this encounter Visit Diagnoses Not on filedocumented in this encounter
--- OUTSIDE RECORDS SUMMARY | 2024-11-04 22:59 | XMS_ITS | Encounter Summary ---
Author Organization [facility] Health Address [address] [place] [address] Care Team Providers Care Director Hydrogen Storage Engineering Name Role Phone Unavailable Primary Care Provider Unavailabl e Reason for Visit * Reason Comments Bariatric Surgery Follow-up Encounter Details Date Type Department Care Team (Late st Contact Info) Description 11/03/2021 2:00 PM SEAT COVER MAKER Office Visit [facility] Weight Management Services [address] [place] [phone] Raisa Schmidt MD [address] [place] [phone] Maia Kennedy, ROAD REPAIRER-ENERGY SCHEDULER [address] [place] [phone] Class 1 obesity without serious comorbidity with body mass index (BMI) of 32.0 to 32.9 in adult, unspecified obesity type (Primary Dx) Social History Tobacco Use Types Packs/Day Years Used Date Smoking Tobacco: Former Cigarettes Q uit: 06/2020 Smokeless Tobacco: Never Alcohol Use Standard Drinks/Week Comments Not Currently 14 (1 standard drink = 0.6 oz pu re alcohol) Sex and Gender Information Value Date Recorded Sex Assigned at Female 11/25/2020 1:10 PM SEAT COVER MAKER Gender Identity Female 11/25/2020 1:10 PM SEAT COVER MAKER Sexual Orientation Straight 02/02/2021 4: 18 PM CDT documented as of this encounter Last Filed Vital Signs Vital Sign Reading Time Taken Comments Blood Pressure 126/88 11/03/2021 1:00 PM SEAT COVER MAKER Pulse 60 11/03/2021 1:00 PM SEAT COVER MAKER Temperature 36.1 ??C (97 ??F) 11/03/2021 1:00 PM SEAT COVER MAKER Respiratory Rate 16 11/03/2021 1:00 PM SEAT COVER MAKER Oxygen Saturation - - Inhaled Oxygen Concentration - - Weight 83.2 kg (183 lb 6.4 oz) 11/03/2021 1:00 P M SEAT COVER MAKER Height 160 cm (5' 3 ) 11/03/2021 1:00 PM SEAT COVER MAKER Body Mass Index 32.49 11/03/2021 1:00 PM SEAT COVER MAKER documented in this encounter Functional Status Functional [...] as of this encounter Progress Notes * Maia Kennedy, BRUT-ENERGY SCHEDULER - 11/03/2021 1:58 PM CST [facility] [place] [address] . . Date of encounter: No admission date for patient encounter. Pt Name: Maria Del Carmen Ray : 1975 AGE: [age] year old SEX: female CSN: [id number] Visit type: Bariatric Post Operative visit Patients Primary care provider is : No primary care provider on file. Subjective: Maria Del Carmen Ray presents to the clinic 6 months following sleeve gastrectomy. she was seen in clinic last on 06/24/2021. Patient is taking 60 grams of proteins supplements daily. The patient has been participating in an online support group. Patient is taking 1 gallon of fluid per day. Walks at work 5 times per week. Patient is taking Bariatric multivitamins. Patient is not having Reflux, Vomiting, Dysphagia, Abdominal Pain and Cough, The patient is not having any pain.. She is having consipation. She has tried miralax and benefiber without relief. She has used enemas approximately 2 per week. Suggested pt use colace 100 mg bid with miralax until bowel movements are achieved then she may use the colace and decrease the colace as constipation improves. Has the patient been readmitted to the [...] (Calculated): 42.88 Weight Loss since last visit in lbs [...] Total Wt Loss in lb: 72.2 lb Obesity History Years at current weight? 13 Years at 35 pounds overweight? 13 Years 100 pounds overweight? Age patient started to diet? 41 Maximum weight reached? 255 Most significant weight loss: Amount of weight loss 20lb Months weight loss sustained 2 months Method of weight loss phentermine BMI: Body mass index is 32.49 kg/m??. Past Medical History: Diagnosis Date ??? [...] Former Smoker Quit date: 06/2020 Years since quittin.4 ??? Smokeless tobacco: Never Used Vaping Use [...] Outpatient Medications Marked as Taking for the 11/03/21 encounter (Office Visit) with Maia Kennedy APRN-CNP Medication Sig ??? CALCIUM CITRATE PO ??? Ferrous Sulfate (IRON PO) ??? Multiple Vitamins-Minerals (CENTRUM SILVER PO) (Not in a hospital admission) Allergy: Allergies Allergen Reactions ??? Amoxicillin Rash and Unknown ROS: A comprehensive review of systems was negative except as described in HPI. Objective: BP 126/88 Pulse 60 Temp 97 ??F (36.1 ??C) (Temporal) Resp 16 Ht 5' 3 (1.6 m) Wt 183 lb 6.4 oz (83.2 kg) BMI 32.49 kg/m2 Weight: 183 lb 6.4 oz (83.2 kg) Height: 5' 3 (160 cm) Body mass index is 32.49 kg/m??. Constitutional: Alert, awake and oriented without any apparent discomfort. Eyes: Anicteric. No subconjunctival hemorrhage. Neck Exam: Supple. Trachea midline. No thyromegaly. No cervical or supraclavicular lymphadenopathy. Respiratory: Lungs were clear to auscultation bilaterally. No rales, rhonchi. Cardiovascular: Regular rate and rhythm. No rub, murmur or gallop Abdomen: soft, non tender, non distended. No palpable visceromegaly. No palpable ventral hernias. Wound healing well. Skin: [place] and moist. Extremities: Well perfused. No gross joint deformity [...] CREATININE 0.91 0.96 Recent Labs Component Name 03/10/213 03/09/21 1005 GLUCOSE 101 107 Recent Labs Component Name 03/10/2141203/09/21 1005 AST 52* 42* ALT 54 50 No results for input(s): LDL, HDL, TRIG, TSH in the last 92792 hours. No results for input(s): HGBA1C in the last 13439 hours. No results for input(s): PT, PTT, INR, TSH in the last 19213 hours. No results for input(s): TSH in the last 18612 hours. No results for input(s): IRON in the last 35221 hours. No results for input(s): [id number] in the last 28280 hours. No results for input(s): VITAMINA in the last 35213 hours. No results for input(s): IRON in the last 54769 hours. No results for input(s): VITK1 in the last 40992 hours. No results for input(s): [id number] in the last 20008 hours. No results for input(s): ALPHATOCOPH in the last 51216 hours. No results for input(s): GAMMATOCOPH in the last 12546 hours. No results for input(s): MAGMGDL in the last 44770 hours. Recent Labs Component Name 03/10/21 0413 PHOS 2.5 Some lab results will be in paper format so may be scanned in the EMR. Imaging studies No results found. Some Imaging studies results will be in paper format so may be scanned in the EMR. Assessment and Plan Hx of Morbid Obesity : Change in weight as noted in the weight history above. Total weight loss since starting the program:72.2 pounds Current BMI Body mass index is 32.49 kg/m??. with weight of Weight: 183 lb 6.4 oz (83.2kg) . Patient is losing weight. Patient is controlling Carbs and Sugar well. Controlling portions well. BMI of 32.49 S/P Bariatric Surgery : s/p: Laparoscopic Sleeve Gastrectomy. Date of surgery??03/09/2021??@ [facility] by??Dr. Mendoza. Doing well postoperatively. May use fibre supplementation like Bene fiber 1-2 teaspoon twice daily in the protein supplementation to prevent constipation. Patient was recommended to take about 60-80 [...] deficiency should she fail to take supplementation. Should she become , she is advised to contact the [facility] Weight Management Services Team ?? The patient verbalizes understanding of all information provided and denies any further questions ?? GERD She denies reflux symptoms. She has discontinued use of omeprazole 40 mg daily. ?? Preoperative ??EGD 02/02/21 showed a small superficial pyloric ulcer. Treated with PPI. Repeat EGD 02/23/21 showed Pyloric ulcer healed . She has history of Colonoscopy on 08/09/2019, patient reports normal. ?? Arthritis Due to being overweight and [...] smoking after bariatric surgery.? Vitamin D Deficiency Not on supplementation. Last Vitamin D level was 52.4 on 07/29/21. Will monitor with 6 mo labs. I counseled the patient on continuing Behavior [...] Labs ordered: Routine Vitamin and Lab check. Last colonoscopy 08/09/2019 Plan : as above recommendation. Follow up with: Surgeons / PA/ CERTIFIED NOVELL ENGINEER : 6 months for 1 year follow up Dietitian: as scheduled. She verbalized understanding and is agreeable to this plan after shared decision making with patient. Maia Kennedy APRN-ENERGY SCHEDULER CC: No primary care provider on file. COVER MAKER documented in this encounter Plan of Treatment Upcoming Encounters Date Type Department Care Team (Late st Contact Info) Description 03/15/2025 10:00 AM CDT Office Visit [facility] Weight Management Services [address] [place] [address] Vianey Llanes, ROAD REPAIRER-ENERGY SCHEDULER [address] [place], [place] [phone] 03/15/2025 10:30 AM CDT Clinical Support [facility] Weight Management Services [address] [place] [phone] documented as of this encounter Visit Diagnoses Diagnosis Class 1 obesity without serious comorbidity with body mass index (BMI) of 32.0 to 32.9 in adult, unspecified obesity type- Primary documented in this encounter
--- OUTSIDE RECORDS SUMMARY | 2024-11-04 22:59 | XMS_ITS | Encounter Summary ---
Author Organization [facility] Address [address] [place] [address] Care Team Providers Care Operational Risk Consultant Name Role Phone Unavailable Primary Care Provider Unavailabl e Reason for Visit * Auth/Cert Specialty Diagnoses / Procedures Referred By Veronica bonner Referred To Contact Diagnoses Morbid obesity (HCC) Morbid obesity [E66.01] Procedures LAPAROSCOPIC GASTRECTOMY (LONGITUDINAL/SLEEVE) Referral ID Status Reason Start Date Expiration Date Visits Re quested Visits Authorized [id number] 1 1 Encounter Details Date Type Department Care Team (Late st Contact Info) Description 03/09/2021 7:30 AM CDT - 03/09/2021 9:18 AM CDT Surgery [facility] [address] [place] [address] [place]han Mendoza MD [id number] [place] [id number] LAPAROSCOPIC SLEEVE GASTRECTOMY Surgery Details Date/Time Status Location OR Service Patient Class Case Class Case Type Trauma Case? 03/09/2021 7:30 AM Posted [facility] MAIN OR OR 2 Bariatric Healthcare Market Consultant Admit Surgical Elective > 5 days Panel 1 Procedure LRB Anes Op Region Wound Class Comments LAPAROSCOPIC SLEEVE GASTRECTOMY N/A General Abdomen Clean Contaminated Surgeon Surgeon Role Service Panel Rehan Mendoza MD Primary Bariatric 1 Special Needs ARRIVAL TIME:MOVED FROM 02/16/2021 - 03/09/2021 documented in this encounter Social History Tobacco Use Types Packs/Day Years Used Date Smoking Tobacco: Former Cigarettes Q uit: 06/2020 Smokeless Tobacco: Never Alcohol Use Standard Drinks/Week Comments Not Currently 14 (1 standard drink = 0.6 oz pu re alcohol) Sex and Gender Information Value Date Recorded Sex Assigned at Female 11/25/2020 1:10 PM [employer] Gender Identity Female 11/25/2020 1:10 PM [employer] Sexual Orientation Straight 02/02/2021 4: 18 PM CDT COVID-19 Exposure Response Date Recorded In the last month, have you been in contact with someone who was confirmed or suspected to have Coronavirus / COVID-19? No / Unsure 03/06/2021 6:03 AM CDT documented as of this encounter Last Filed Vital Signs Vital Sign Reading Time Taken Comments Blood Pressure 136/79 03/09/2021 5:45 AM CDT Pulse 67 03/09/2021 5:45 AM CDT Temperature 36.1 ??C (97 ??F) 03/09/2021 5:45 AM CDT Respiratory Rate 18 03/09/2021 5:45 AM CDT Oxygen Saturation 99% 03/09/2021 5:45 AM CDT Inhaled Oxygen Concentration - - Weight 106.7 kg (235 lb 3.7 oz) 03/09/2021 5:45 AM CDT Height 154.9 cm (5' 1 ) 03/09/2021 5:45 AM CDT Body Mass Index 44.45 03/09/2021 5:45 AM CDT documented in this encounter Functional [...] No 03/10/2021 documented as of this encounter Discharge Summaries * Rehan Mendoza MD - 03/10/2021 7:56 AM CDT Discharge Summary Pt Name: Maria Del Carmen Ray DATE OF ADMISSION : 03/09/2021 DATE OF DISCHARGE : 03/10/2021 PRIMARY CARE PHYSICIAN : Rose Marie Norton APRN-BLAKE ADMISSION DIAGNOSIS: Refractory morbid obesity with BMI of Body mass index is 44.45 kg/m??. and comorbid conditions including Gastroesophageal reflux disease, anxiety, arthritis and vitamin-D deficiency DISCHARGE DIAGNOSES: Same as admission diagnosis PROCEDURES PERFORMED: Procedure(s): LAPAROSCOPIC SLEEVE GASTRECTOMY (N/A) 03/09/2021 BRIEF HISTORY AND HOSPITAL COURSE: This is a 45 year old old female patient of Rehan Mendoza MD who was seen in the office for consultation for bariatric surgery. The patient underwent a complete preoperative evaluation and was felt to be a good candidate for bariatric intervention given her history of refractory morbid obesity with BMI of Body mass index is 44.45 kg/m??. and comorbid conditions including Gastroesophageal reflux disease anxiety, arthritis and vitamin-D deficiency. After the different options and aspects of surgery were discussed with the patient it was decided to proceedwith the Procedure(s): LAPAROSCOPIC SLEEVE GASTRECTOMY (N/A) 03/09/2021. Please read the operating report for details of theprocedure. The patient postoperatively was transferred to the floor and was given hydration with LR at 150 ml/hr. Urine output was closely monitored and IV fluids adjusted. Patient was treated with albuterol and Atrovent nebulization q.4 hours. Incentive spirometer Q4. Patient was given scheduled Protonix IV and Reglan for the first 12 hours. she was given heparin 5000 Subcu starting postoperative day #1 at9 a.m. and SCD were placed post OP for deep vein thrombosis prophylaxis. she had IV Tylenol on the day of surgery for pain control and later on changed to Roxicet PO in postoperative day #1. Patient was started on metoprolol 5 IV q.4 h and Hydralazine 10 mg q.4 h PRN for blood pressure control as well. Patient was also given Thiamine 100 mg IV daily, electrolytes were replaced as needed. Patient also had blood sugars controlled with insulin sliding scale. On postoperative day #1 patient had a swallow study which showed there were no leaks and there wereno signs of any obstruction so she was advanced to bariatric phase 1 diet and she was advanced to 30 cc every 1/2 hour. The patient was tolerating liquids well. Subjective Complaints: incisional pain + flatus, no fever. Denies: chest pain, shortness of breath Activity: up in chair, walking in halls Diet: liquids Objective BP 107/50 Pulse 78 Temp 99.2 ??F (37.3 ??C) (Oral) Resp 16 Ht 5' 1 Wt 235 lb 3.7 oz SpO2 94% BMI 44.45 kg/m2 Weight: 235 lb 3.7 oz Height: 5' 1 Body mass index is 44.45 kg/m??. Physical Exam General appearance: alert, cooperative, no distress Lungs: breath sounds normal and symmetric; no rales or wheezes Abdomen: soft without mass, non-tender, with normal bowel sounds Wound: incision: clean and dry, no erythema Extremities: no clubbing, cyanosis or edema Labs and Imaging Recent Results (from the past 24 hour(s)) CBC W AUTO DIFFERENTIAL Collection Time: 03/09/21 10:05 AM Result Value Ref Range WBC 9.7 4.0 - 10.0 x10E9/L RBC 4.19 3.93 - 5.22 x10E12/L Hemoglobin 12.9 11.2 - 15.7 gm/dL Hematocrit 38.6 34.1 - 44.9 % MCV 92.1 78.0 - 100.0 fl MCH 30.8 25.6 - 34.0 pg MCHC 33.4 32.3 - 36.5 gm/dL RDW 13.6 11.6 - 14.4 % MPV 10.0 9.4 - 12.4 fl Platelet Count 220 163 - 369 x10E9/L Neutrophils % 85.4 (H) 40.0 - 75.0 % Lymphocytes % 11.8 (L) 19.3 - 53.1 % Monocytes % 2.4 (L) 4.7 - 12.5 % Eosinophils % 0.2 (L) 0.7 - 7.0 % Basophils % 0.1 0.1 - 1.2 % Immature Granulocytes 0.1 0 - 0.5 % Neutrophil Absolute 8.29 (H) 1.56 - 6.13 x10E9/L Lymphocytes Absolute 1.14 (L) 1.18 - 3.74 x10E9/L Monocytes Absolute 0.23 (L) 0.24 - 0.86 x10E9/L Eosinophils Absolute 0.02 (L) 0.04 - 0.54 x10E9/L Basophils Absolute 0.01 0.01 - 0.08 x10E9/L Immature Granulocytes Absolute 0.01 0 - 0.03 x10E9/L nRBC Auto 0 <=0 /100 WBC nRBC Absolute 0.00 <=0 x10E9/L COMPREHENSIVE METABOLIC PANEL Collection Time: 03/09/21 10:05 AM Result Value Ref Range Glucose 107 70 - 125 mg/dL Sodium 139 136 - 145 mmol/L Potassium 3.8 3.4 - 4.5 mmol/L Chloride 107 98 - 107 mmol/L CO2 22 22 - 29 mmol/L Calcium 8.3 (L) 8.4 - 10.2 mg/dL Anion Gap 14 10 - 20 mmol/L BUN 11.7 9.8 - 20.1 mg/dL Creatinine 0.96 0.57 - 1.11 mg/dL eGFR by MDRD >60 >60 mL/min/1.73m2 eGFR by MDRD >60 >60 mL/min/1.73m2 Alkaline Phosphatase 45 40 - 150 U/L ALT 50 5 - 55 U/L AST 42 (H) 5 - 34 U/L Protein Total 5.9 (L) 6.4 - 8.3 gm/dL Albumin 3.4 (L) 3.5 - 5.0 gm/dL Globulin Total 2.5 (L) 2.6 - 4.0 gm/dL Albumin/Globulin Ratio 1.4 0.9 - 1.6 Bilirubin Total 0.6 0.2 - 1.2 mg/dL MAGNESIUM BLOOD Collection Time: 03/09/21 10:05 AM Result Value Ref Range Magnesium 1.5 (L) 1.6 - 2.6 mg/dL PHOSPHORUS BLOOD Collection Time: 03/09/21 10:05 AM Result Value Ref Range Phosphorus 3.8 2.3 - 4.7 mg/dL GLUCOSE - POINT OF CARE Collection Time: 03/09/21 11:54 AM Result Value Ref Range Glucose WB/POC 66 (L) 70 - 125 mg/dL Specimen Type Arterial/Capillary GLUCOSE - POINT OF CARE Collection Time: 03/09/21 12:43 PM Result Value Ref Range Glucose WB/POC 103 70 - 125 mg/dL Specimen Type Arterial/Capillary GLUCOSE - POINT OF CARE Collection Time: 03/09/21 4:20 PM Result Value Ref Range Glucose WB/POC 98 70 - 125 mg/dL Specimen Type Arterial/Capillary MAGNESIUM BLOOD Collection Time: 03/09/21 7:52 PM Result Value Ref Range Magnesium 2.4 1.6 - 2.6 mg/dL GLUCOSE - POINT OF CARE Collection Time: 03/09/21 8:50 PM Result Value Ref Range Glucose WB/POC 86 70 - 125 mg/dL Specimen Type Arterial/Capillary GLUCOSE - POINT OF CARE Collection Time: 03/10/21 12:42 AM Result Value Ref Range Glucose WB/POC 79 70 - 125 mg/dL Specimen Type Arterial/Capillary CBC W AUTO DIFFERENTIAL Collection Time: 03/10/21 4:13 AM Result Value Ref Range WBC 10.7 (H) 4.0 - 10.0 x10E9/L RBC 4.37 3.93 - 5.22 x10E12/L Hemoglobin 13.3 11.2 - 15.7 gm/dL Hematocrit 39.7 34.1 - 44.9 % MCV 90.8 78.0 - 100.0 fl MCH 30.4 25.6 - 34.0 pg MCHC 33.5 32.3 - 36.5 gm/dL RDW 13.3 11.6 - 14.4 % MPV 10.1 9.4 - 12.4 fl Platelet Count 243 163 - 369 x10E9/L Neutrophils % 74.0 40.0 - 75.0 % Lymphocytes % 19.2 (L) 19.3 - 53.1 % Monocytes % 6.6 4.7 - 12.5 % Eosinophils % 0.0 (L) 0.7 - 7.0 % Basophils % 0.1 0.1 - 1.2 % Immature Granulocytes 0.1 0 - 0.5 % Neutrophil Absolute 7.88 (H) 1.56 - 6.13 x10E9/L Lymphocytes Absolute 2.05 1.18 - 3.74 x10E9/L Monocytes Absolute 0.70 0.24 - 0.86 x10E9/L Eosinophils Absolute 0.00 (L) 0.04 - 0.54 x10E9/L Basophils Absolute 0.01 0.01 - 0.08 x10E9/L Immature Granulocytes Absolute 0.01 0 - 0.03 x10E9/L nRBC Auto 0 <=0 /100 WBC nRBC Absolute 0.00 <=0 x10E9/L COMPREHENSIVE METABOLIC PANEL Collection Time: 03/10/21 4:13 AM Result Value Ref Range Glucose 101 70 - 125 mg/dL Sodium 139 136 - 145 mmol/L Potassium 3.5 3.4 - 4.5 mmol/L Chloride 106 98 - 107 mmol/L CO2 22 22 - 29 mmol/L Calcium 8.7 8.4 - 10.2 mg/dL Anion Gap 15 10 - 20 mmol/L BUN 8.7 (L) 9.8 - 20.1 mg/dL Creatinine 0.91 0.57 - 1.11 mg/dL eGFR by MDRD >60 >60 mL/min/1.73m2 eGFR by MDRD >60 >60 mL/min/1.73m2 Alkaline Phosphatase 47 40 - 150 U/L ALT 54 5 - 55 U/L AST 52 (H) 5 - 34 U/L Protein Total 6.2 (L) 6.4 - 8.3 gm/dL Albumin 3.4 (L) 3.5 - 5.0 gm/dL Globulin Total 2.8 2.6 - 4.0 gm/dL Albumin/Globulin Ratio 1.2 0.9 - 1.6 Bilirubin Total 0.6 0.2 - 1.2 mg/dL MAGNESIUM BLOOD Collection Time: 03/10/21 4:13 AM Result Value Ref Range Magnesium 2.1 1.6 - 2.6 mg/dL PHOSPHORUS BLOOD Collection Time: 03/10/21 4:13 AM Result Value Ref Range Phosphorus 2.5 2.3 - 4.7 mg/dL GLUCOSE - POINT OF CARE Collection Time: 03/10/21 4:37 AM Result Value Ref Range Glucose WB/POC 84 70 - 125 mg/dL Specimen Type Arterial/Capillary No results found. Assessment/Plan Procedure(s): LAPAROSCOPIC SLEEVE GASTRECTOMY (N/A) 03/09/2021 Post op day #1 Post OP - Doing well. Started ambulation 4hrs after surgery. Ambulating. Treated with B Al[place] andHydralazine PRN for Hypertension. Given high does PPI post OP. Pain controlled with IV Tylenol and PRN Fentanyl Given 100 mg IV Thiamine. Nausea was treated with scheduled Zofran and Reglan.DVT prophylaxis yesterday with SCD. Post operative antibiotics stopped with in 24 hrs after surgery. H/H stable UGI evaluation today,Ok, advanced diet to Bariatric Phase 1- 30 cc / 30 minutes. Gastroesophageal reflux disease: Managed by medical doctors. Will recommend to start on PO home medfor anxiety. Was on sliding scale for blood sugar management. Pain management : D/C CABLE FORMER, start PO. Respiratory management: Aggressive I/S, Resp treatments PRN. Fluid management: cap IV Wound care: leave open to air Antibiotics: discontinue Activity: encourage ambulation, up in chair DVT/PUD prophylaxis:DVT - Venous Compression Device heparin Since the patient was tolerating Bariatric Phase 1 diet and was ambulating and pain was under control with Roxicet it was decided to discharge the patient home. DISCHARGE ACTIVITIES: No heavy lifting more than 10 pounds for 2 week. she can take a shower. No swimming or tub bath for 1 week. Need to keep walking at home every 2-4 hrs while wake for DVT prevention. DISCHARGE DIET: Bariatric clear liquid diet for 2 weeks to be taken at 60 cc every ?? hour from post operative day 2. FOLLOW UP: Follow up with Bariatric Surgeon in 1 week and Bariatric Dietitian as scheduled in 2 weeks. Contact me if patient has high fever more than 101, increasing abdominal pain, worsening nausea,vomiting, calf pain and excessive feeling of tiredness. DISCHARGE MEDICATIONS: Medication List CONTINUE taking these medications acetaminophen 500 MG tablet Commonly known as: TYLENOL Pt is to take 2 tabs po every 6 hours for basal pain omeprazole 40 MG capsule Commonly known as: PriLOSEC Take 1 (one) capsule by mouth daily before breakfast Reasons: Gastroesophageal Reflux Disease ondansetron (disintegrating) 4 MG tablet Commonly known as: Zofran ODT Take 1 (one) tablet by mouth every 4 hours as needed for Nausea/Vomiting Allow tablet to dissolve on the tongue oxyCODONE (immediate release) 5 MG tablet Commonly known as: Roxicodone Take 1 to 2 tabs prn every 4 hours for pain. Max of 6 tabs in 24hrs. Verold capsule Take 1 (one) capsule by mouth once daily ursodiol 300 MG capsule Commonly known as: Actigall Take 1 (one) capsule by mouth 2 times daily for 90 days Do Not start until 1 week post op. Reasons:Post op laproscopic sleeve gastrectomy STOP taking these medications scopolamine 1 MG patch Commonly known as: Transderm-Scop vitamin D (ergocalciferol) 1.25 MG (85980 UT) capsule Commonly known as: Drisdol CONDITION ON DISCHARGE: Stable. CC: Rose Marie Norton, [employer]ITECT documented in this encounter Medications at Time of Discharge [...] 24hrs. 12 tablet 02/27/2021 04/10/2021 Probiotic Product ([employer]) capsuleIndications: Bariatric surgery status Take 1 (one) capsule by mouth once daily 30 capsule 3 02/27/2021 06/24/2021 ursodiol (ACTIGALL) 300 MG capsuleIndications: Post op laproscopic sleeve gastrectomy Take 1 (one) capsule by mouth 2 times daily for 90 days Do Not start until 1 week post op. Reasons: Post op laproscopic sleeve gastrectomy 60 capsule 2 02/27/2021 05/28/2021 documented as of this encounter Progress Notes * Precious Elaine - 03/10/2021 9:35 AM CDT Nutrition Services - Consult Response Consult received for obesity/bariatric phase 1 diet. Pt is s/p Laparoscopic Sleeve Gastrectomy. Visited with patient to review Phase 1 diet and instructions for sipping liquids. Educated pt regardingappropriate food choices for Phase 1 diet. Discussed foods recommended and foods to avoid. Advised pt to remain on Phase 1 diet until he/she has been seen for follow-up by the physician or dietitian.Reviewed proper slow intake for sipping liquids post-operatively. Educated pt regarding advancementof fluids at discharge and reviewed goals for fluid and protein intake. Handouts provided. Pt v/u. Encouraged pt to contact the Weight Management Services office or the dietitian for further questions /concerns. Pt was able to recall protein and fluid goals for each day. Additionally, pt reported he/she has Protein Shake,Protein Water and Broth at home for after discharge Will continue to monitor per protocol. * Kayleigh Ventura - 03/10/2021 8:25 AM CDT Pt screened by the account planner via record review. BNA score is <10. Pt has health insurance and primary care is established for follow-up care. No discharge planning needs determined at thistime. Care Management will follow as needed. * Luisa Alcantara RN - 03/09/2021 8:38 PM CDT Problem: Tobacco Use Goal: Inpatient tobacco-use cessation counseling participation 03/09/[id number] by Luisa Alcantara RN Outcome: Progressing 03/09/[id number] by Luisa Alcantara RN Outcome: Progressing Problem: Fall Risk Goal: Fall risk and fall related injury risk are minimized (interventions related to the fall risk can be found in the flowsheet documentation) 03/09/[id number] by Luisa Alcantara RN Outcome: Progressing 03/09/20212037 by Luisa Alcantara RN Outcome: Progressing Problem: Oxygenation/Respiratory Function Goal: Patient will achieve/maintains stable resp rate/effort Outcome: Progressing Problem: Mobility Goal: Early mobilization is achieved Outcome: Progressing Problem: Nutritional Status Goal: Maintain nutritional status Outcome: Progressing Goal: Return of GI function Outcome: Progressing Goal: Understanding of postoperative bariatric diet Outcome: Progressing Problem: Incision Care Goal: Incision remains intact with edges well approximated Outcome: Progressing Goal: Incision is free of infection. Outcome: Progressing Problem: Potential for urinary catheter-associated infection Goal: Urinary catheter-associated infection is avoided Outcome: Progressing Goal: Normal urinary patterns are established for age/disease process Outcome: Progressing Problem: Psychosocial issues Goal: Patient states hopes & goals for post-hospitalization Outcome: Progressing Goal: Patient expresses desire to participates in care as able Outcome: Progressing * Lyn Mcgraw RN - 03/09/2021 5:57 PM CDT Pt walked around nurses station for 2nd time today and tolerated well. * Lyn Mcgraw RN - 03/09/2021 11:03 AM CDT Received to room 331 from PACU per bed and settled. Hob elevated 30 degrees. scd's and teds in place abdominal binder in place over 4 port sites with skin glue with no drainage noted. Capnography andtelemetry monitor applied. Dorsi plantar flexes every 4 hours. No complaints voiced or distress noted. at bedside. See vs tab for frequent surgery vital signs. Will continue to monitor. documented in this encounter H&P Notes * Rehan Mendoza MD - 03/09/2021 7:30 AM CDT Admit Date: 03/09/2021 Chest clear Bilateral. Heart S1 S2 heard Abdomen Soft non tender. This patient? s prior H&P was reviewed, the patient was examined and no change has occurred in the patient's condition since the prior H&P was completed. Rehan Mendoza MD Source Note - Rehan Mendoza MD - 03/08/2021 6:12 AM CDT Images from the original note were not included. [facility] [place] [address] . . Date of encounter: 03/04/2021 Provider: Dr. Rehan Mendoza Patient: Maria Del Carmen Ray CSN: [id number] Specialty: Bariatric Surgery Date of : 1975 Patient Verification & Telemedicine Based Consent I [...] verification and consent paragraph with the patient/surrogate. Visit type: Bariatrics Virtual Pre Operative Final History and Physical The patient has given verbal consent to have today's visit conducted by this same means with treatment provided remotely. The patient verbally consents to the billing and collection practices. Maria Del Carmen Ray 45 year old female patient was referred by SANGEETHA Kumar for evaluation for Morbid Obesity and assessment for Bariatric Surgery. she is seen for final evaluation beforesurgery. Bariatric HPI she was seen in clinic last on 03/04/2021. The procedure requested is Laparoscopic Sleeve Gastrectomy Patient is attending support group meeting. The patient has not been participating in an online support group. No of support group meeting attended 01/07 Patient is taking 80 grams of proteins supplements daily. Patient is taking more than 64 oz of fluid per day. Doing 0 minutes of exercise daily. Weight History: Initial Weight: 255.6 lb. BMI [...] Total Wt Loss in lb: 18.6 lb Obesity History Years at current weight? 13 Years at 35 pounds overweight? 13 Years 100 pounds overweight? Age patient started to diet? 41 Maximum weight reached? 255 Most significant weight loss: Amount of weight loss 20lb Months weight loss sustained 2 months Method of weight loss phentermine Diet History: Diet History: Prescription Weight Loss Medications: Phentermine 2 months lost 20 lbs 04/2020 Eating Habits: Volume Eater and Sweet Eater Sleep History: No sleep problems Sleep Habits 1. At what time do you usually get to bed? 11 pm -1 am 2. How long does it take to fall asleep after lights out? 30 mins 3. How often do you awaken at night? 1-2 xs 4. Total time spent awake in bed? 7=8 hrs 5. I usually wake up at: 8 am 6. Total length of naps daily? 30-45 mins 7. Do you work a rotating shift? no 8. Do you have an unusual work schedule? no [place] Sleepiness Scale total points: 1 Past Medical History: Diagnosis Date ??? GERD (gastroesophageal reflux disease) ??? HTN (hypertension) Past Surgical History: Procedure Laterality Date ??? Appendectomy 03/1999 ??? ENDOSCOPY, UPPER ??? ENDOSCOPY, UPPER N/A 02/02/2021 N/A; ESOPHAGOGASTRODUODENOSCOPY WITH BIOPSY ??? ENDOSCOPY, UPPER 02/23/2021 ESOPHAGOGASTRODUODENOSCOPY WITH BIOPSY ??? Hysterectomy 12/2018 partial Family History Problem Relation Name Age of Onset ??? Hypertension Mother ??? Hypertension Father ??? CVA Father Social History Socioeconomic History ??? Marital status: Single Spouse name: Not on file ??? Number of children: Not on file ??? Years of education: Not on file ??? Highest education level: Not on file Occupational History ??? Not on file Tobacco Use ??? Smoking status: Former Smoker Quit date: 06/2020 Years since quittin.7 ??? Smokeless tobacco: Never Used Vaping Use [...] Gatherings with Friends and Family: ??? Attends Denominational Services: ??? Active Member of Clubs or Organizations: ??? Attends Club or Organization Meetings: ??? Marital Status: Intimate Partner Violence: ??? Fear of Current or Ex-Partner: ??? Emotionally Abused: ??? Physically Abused: ??? Sexually Abused: Outpatient Medications Marked as Taking for the 03/04/21 encounter (Video Visit) with Rehan Mendoza MD Medication Sig ??? omeprazole (PRILOSEC) 40 MG capsule Take 1 (one) capsule by mouth daily before breakfast Reasons: Gastroesophageal Reflux Disease ??? Probiotic Product ([employer]) capsule Take 1 (one) capsule by mouth once daily (Not in a hospital admission) Allergies Allergen Reactions ??? Amoxicillin Rash and Unknown Review of Systems: General ROS: negative Psychological ROS: negative Ophthalmic ROS: negative ENT ROS: negative Allergy and Immunology ROS: negative Hematological and Lymphatic ROS: negative Endocrine ROS: negative Breast ROS: negative Respiratory ROS: negative Cardiovascular ROS: negative Gastrointestinal ROS: negative Genito-Urinary ROS: negative Musculoskeletal ROS: negative Neurological ROS: negative Dermatological ROS: negative Objective: Vital Signs: Ht 5' 3 (1.6 m) Wt 237 lb (107.5 kg) BMI 41.98 kg/m2 Weight: 237 lb (107.5 kg) (per pt) Height: 5' 3 (160 cm) Body mass index is 41.98 kg/m??. Constitutional: Alert, awake and oriented without any apparent discomfort. Eyes: Anicteric. Skin: No ulcers, rashes, or lesions. Extremities: No gross joint deformity noted Psychiatric: The patient's mood and affect appeared to be appropriate Labs No results for input(s): WBC, RBC, HGB, HCT, PLTCOUNT in the last 96430 hours. No results for input(s): SODIUM, POTASSIUM, CO2, BUN, CREATININE in the last 55960 hours. Invalid input(s): CLORIDE No results for input(s): GLUCOSE in the last 45966 hours. No results for input(s): AST, ALT in the last 41805 hours. No results for input(s): LDL, HDL, TRIG, TSH in the last 06954 hours. No results for input(s): HGBA1C in the last 38291 hours. No results for input(s): PT, PTT, INR, TSH in the last 29014 hours. No results for input(s): TSH in the last 76958 hours. No results for input(s): IRON in the last 80425 hours. No results for input(s): [id number] in the last 69487 hours. No results for input(s): VITAMINA in the last 94236 hours. No results for input(s): IRON in the last 38567 hours. No results for input(s): VITK1 in the last 08048 hours. No results for input(s): [id number] in the last 39036 hours. No results for input(s): ALPHATOCOPH in the last 03001 hours. No results for input(s): GAMMATOCOPH in the last 38892 hours. No results for input(s): MAGMGDL in the last 16604 hours. No results for input(s): PHOS in the last 11886 hours. Some lab results will be in paper format so may be scanned in the EMR. Imaging studies No results found. Some Imaging studies results will be in paper format so may be scanned in the EMR. Assessment and Plan Assessment: Morbid Obesity Detailed weight change is documented in the weight history. she had visited with the Dietitian since the last visit and she is adjusting the diet. she started on an exercise program is helping her weight loss plan. Continue on liquid protein diet replacement therapy. Patient has a 6 months primary care physician supervised diet requirement. Has completed 6/6 months. GERD Complains of reflux symptoms occasionally. EGD done on 02/02/21 showed a small superficial pyloric ulcer. Treated with PPI. To do a repeat EGD on 02/23/21 to evelaute the healing. She has history of Colonoscopy on 08/09/2019, annmarie reports normal. ?? Anxiety Patient anxious about surgery and the course. Explained in detail the surgery. If on SSRI or anxiety medication, I will continue the same now and perioperatively.Psychiatric evaluation for pre-operative clearance was obtained 01/13/2021. ?? Arthritis Due to being overweight and having extreme wear and tear of lower extremity joints patient is developing joint pain and arthritis. This should be alleviated after surgery and weight loss. Currently to continue with pain medication PRN. ? History of??Smoking addiction?? She??stopped smoking ??in June 2020.?Recommend her not to restart smoking. ??Explained to her the risk of development of complications with smoking after bariatric surgery.? #1 Nicotine 12/18/2020 Negative #2 Nicotine 01/08/2021 - Negative ? Vitamin D Deficiency She is tolerating repletion per protocol ?? Abnormal Finding of EKG Preoperative EKG performed on 2020 revealed finding of??Normal sinus rhythm Inferior t wave abnormality When compared with ECG of 05-OCT-2014 16:14, Nonspecific T wave abnormality is now seen in lead aVF??- ??Cardiac clearance obtained 11/24/2020 Cornell Chavarria Consults and Test ordered or needs follow up: None Proposed Surgery, Date and Place. Surgery: Laparoscopic Sleeve Gastrectomy Date: 03/09/2021 Place: At [facility]. Patient should qualify for staying more than 2 midnights in hospital. Patient education, risk explained and consent : she meets the criteria as set by the National [place] of Health that recommends bariatric surgeryon people with a body mass index greater than 40 kg/msq or with a body mass index greater than 35 kg/msq with co-morbid conditions. I have discussed with her at great length the definition of morbid o besity and the indications for surgery. I have explained to her that the surgery is not a cure. This is not a cosmetic surgery and she will still require active participation with exercise, diet, andhaving very close follow-up with a ludlow machine operator and me. In addition she must continue to attend post-operatively, in order to increase her long-term success. I have discussed with her at great length the different types of bariatric procedures that are being performed. I have shown her a diagram explaining how the surgery works and how weight loss is accomplished. I have discussed with her at great length that the gastric bypass surgery is successful in helping the patient lose about 60-80 % of her excess body weight and that this mainly occurs within the first two years post-operatively. After that, her weight may plateau and there may be no further weight loss. Conversely, I advised that with the gastric sleeve resection, she can reasonably expect to lose 40-75 % of her excess body weight. Again, this will mainly occur in the first two years post-op. After that time,her weight may plateau and there may be no further weight loss. Additionally, in the case of the gastric sleeve resection, I have advised the patient that this surgery may be performed as a stand-alone procedure to achieve the desired outcome, or as a staging operation in preparation for further weight loss surgery. she has acknowledged her understanding that more surgery may be necessary in order to achieve an acceptable weight loss outcome. I have discussed at great length with the risks include, but are not limited to: , anastomoticleak, obstruction, bleeding, hematoma, seroma, poor wound healing, hernia formation, further surgeries, further surgeries if too much weight loss occurs, injury to liver, spleen, stomach pancreatic injury, kidney injury, diaphragmatic and heart injury, bowel injury, vessel injury and nerve injury. In discussing complications of surgeries, I placed special emphasis on esophagus gastric/bowel perforation leading to possible sepsis and , and deep vein thrombosis leading to possible pulmonary embolism and . With the gastric bypass, there are the additional potential risks such as anastomotic leak, gastric pouch necrosis, total gastrectomy, intestinal reconstruction, internal hernias, and gastrostomy tube.With the gastric sleeve, there are the additional potential risks such as sleeve stricture and spiraling. and sepsis. Any of these could require further surgery. Other risks include DVT, PE, pneumonia, wound dehiscence, hernia, wound infection, the need for dilatations of her gastrojejunostomy, and the inability to lose appropriate weight and keep it off. We discussed that ourgoal is to ameliorate her medical problems and not to obtain a specific body mass index. All surgeries may be performed laparoscopically, however the possibility exists that any procedure may have to be converted to the open approach. I have also discussed with her the possibility of long-term complications with metabolic, nutritional, and mineral derangements that are present with all three surgeries. I have made her aware that all these surgeries require a lifetime commitment surgery and she needs to be an active participant with the program. I have made her aware that after any of the surgeries she will have a very small pouch / sleeve, which will limit the quantity of food that she will be able to eat and the foods she needs to avoid in order to prevent discomfort or failure to lose weight. I have informed her that she will have to take at a minimum multivitamins and possible other supplementation. This is the case with any of the surgeries we discussed. With the bariatric surgery, because of the Restrictive / malabsorptive components , after the surgery she will have to have very close follow-up and surveillance where I will see her every month for the first four months and then atleast annually for life. With those office visits, at a minimum I may routinely check a CBC, CMP, Vitamin B6 and B12, a folate level and an iron profile. In addition to these vitamins checked for the gastric sleeve surgery, for gastric bypass surgery, I will also check Vitamin A, D, E, K, and Zinc levels, as needed. I madeher aware of the long-term complications that can occur if she fails to have follow-up and developsderangements with different types of vitamin and mineral deficiencies. Each surgery requires a lot of teaching and education. I have discussed this with her at great length and have provided a great deal of information to the patient, she has attended pre operative education class by java programming professor and the dietitian, but she will have additional education provided by the java programming professor and ludlow machine operator at [facility]. Because of the significant changes in her eating habits she will have to see a ludlow machine operator following surgery. I have informed her that the diet after surgery is a gradual progression from clear liquidsto solid foods over a period of time. Bariatric surgery can affect her psychologically and emotionally, therefore she may require post-operative therapy with a psychologist. she will have to make sure that she is willing to make the commitment for life and be an active participant. Covid-19 specific risk with bariatric surgery, I explained to her the added risk of high morbidity (as high as 20%) and mortality with cora Covid-19 perioperatively or if she is a carrier at the time of surgery. Since there are only very limited knowledge currently about the virus, its behaviors and treatment modalities. I also explained to her there is a chance of cora Covid-19 in the treating facility even though we are taking extra measures to our knowledge to prevent contraction of Covid-19.I reviewed specific measures the hospital is taking to protect our patient's at this time. Our patients will be cared for on a separate floor from any Covid positive patients. All ancillary staff has specific measures in place to not cross contaminate patient's. Patient's are stronglyadvised to be quarantined at home 3 days prior to surgery and 2 weeks following surgery to avoid contraction of Covid 19 and associated complication. She echos understanding of all the above mentioned information and the above mentioned risks and benefits and wishes to proceed with Laparoscopic Sleeve Gastrectomy, possible Hiatal Hernia repair andany related procedure. She has signed a consent form. Today's visit was conducted virtually due to COVID-19 countermeasures. The patient has given verbalconsent to have today's visit conducted by this same means with treatment provided remotely. The patient verbally consents to the billing and collection practices of [facility]. Patient location: Home This encounter was performed using: audio and video Time spent with patient/proxy: 21 minutes (greater than 21 minutes does not change coding) The plan was reviewed with the patient and the patient confirmed understanding of the plan and all follow-up steps. Patient is agreeable with this plan after shared decision making with patient. All aspects of patient's medical history were reviewed and updated as documented in Epic. By assigning my name below, IDeclan, attest that this documentation has been prepared underthe direction of Dr. Rehan Mendoza.03/08/2021 Rehan Reed MD personally performed the services described in this documentation. All medical record entries made by the scribe were at my direction. I have reviewed the chart and agree thatthe record reflects my personal performance and is accurate and complete. CC: SANGEETHA Kumar documented in this encounter Consult Notes * Juliana Saul APRN-CNP - 03/09/2021 4:48 PM CDTAssociated Order(s): IP CONSULT TO HOSPITALIST MEDICINE CONSULT NOTE Patient's Name: Maria Del Carmen Rya Date of : 1975 Date of Admission: 03/09/2021 5:33 AM Date of Service: 03/09/2021 4:48 PM History of Present Illness: Reason For Consult: medical management CHIEF COMPLAINT: soreness upper abdomen Patient s/p laparoscopic sleeve gastrectomy. Hospitalist consulted for medical management. PMH includes hypertension and GERD. Patient currently takes no BP meds. Denies tobacco or illicit drug use. Denies recent alcohol use, however has a history of drinking wine every day. Patient currently lying in bed. C/o soreness to upper abdomen and chest. Denies nausea. Has ambulated in ying. Denies dyspnea. VSS. Magnesium level 1.5. Review of Systems: CONSTITUTIONAL: Denies recent fever, or chills HEAD: Denies injury or headache EYES: Denies blurred vision, double vision, photophobia, or drainage EARS: Denies tinnitus, earache, or drainage NOSE: Denies congestion or epistaxis MOUTH: Denies sore throat, difficulty swallowing, or dentition problems ENDOCRINE: Denies intolerance to heat or cold. Denies excessive thirst or polyuria. CARDIAC: Denies chest pain or palpitations. PULMONARY: Denies dyspnea, cough, hemoptysis, or wheezing GASTROINTESTINAL: C/o soreness upper abdomen and chest. Denies nausea, vomiting, hematemesis, diarrhea, constipation, blood in stool, or indigestion NEUROLOGIC: Denies dizziness, weakness, headache or syncope GENITOURINARY: Denies dysuria, hematuria, or urinary retention MUSCULOSKELETAL: Denies joint pain or weakness DERMATOLOGIC: Denies rashes, bruising, or open wounds HEMATOLOGIC: Denies excessive bleeding or bruising. Allergies Allergen Reactions ??? Amoxicillin Rash and Unknown Medications Prior to Admission Medication Sig Dispense Refill ??? acetaminophen (TYLENOL) 500 MG tablet Pt is to take 2 tabs po every 6 hours for basal pain 24 tablet 0 ??? omeprazole (PRILOSEC) 40 MG capsule Take 1 (one) capsule by mouth daily before breakfast Reasons: Gastroesophageal Reflux Disease 30 capsule 3 ??? ondansetron, disintegrating, (ZOFRAN ODT) 4 MG tablet Take 1 (one) tablet by mouth every 4 hours as needed for Nausea/Vomiting Allow tablet to dissolve on the tongue 30 tablet 2 ??? oxyCODONE, immediate release, (ROXICODONE) 5 MG tablet Take 1 to 2 tabs prn every 4 hours for pain. Max of 6 tabs in 24hrs. 12 tablet 0 ??? Probiotic Product (FATIMA COLON HEALTH) capsule Take 1 (one) capsule by mouth once daily 30 capsule 3 ??? scopolamine (TRANSDERM-SCOP) 1 MG patch Apply 1 patch to skin pre-op for 1 dose, place 1 patch behind ear night before surgery Reasons: Operation 1 patch 0 ??? ursodiol (ACTIGALL) 300 MG capsule Take 1 (one) capsule by mouth 2 times daily for 90 days Do Not start until 1 week post op. Reasons: Post op laproscopic sleeve gastrectomy 60 capsule 2 ??? vitamin D, ergocalciferol, (DRISDOL) 1.25 MG (65153 UT) capsule Take 1 capsule by mouth every 7days Reasons: Vitamin D Deficiency 4 capsule 3 Past Medical History: Diagnosis Date ??? GERD (gastroesophageal reflux disease) ??? HTN (hypertension) Past Surgical History: Procedure Laterality Date ??? Appendectomy 03/1999 ??? ENDOSCOPY, UPPER ??? ENDOSCOPY, UPPER N/A 02/02/2021 N/A; ESOPHAGOGASTRODUODENOSCOPY WITH BIOPSY ??? ENDOSCOPY, UPPER 02/23/2021 ESOPHAGOGASTRODUODENOSCOPY WITH BIOPSY ??? Hysterectomy 12/2018 partial Family History Problem Relation Name Age of Onset ??? Hypertension Mother ??? Hypertension Father ??? CVA Father Social History Tobacco Use ??? Smoking status: Former Smoker Quit date: 06/2020 Years since quittin.7 ??? Smokeless tobacco: Never Used Substance Use Topics ??? Alcohol use: Not Currently Alcohol/week: 14.0 standard drinks Types: 14 Glasses of wine per week Physical Exam: Intake/Output Summary (Last 24 hours) at 03/09/2021 1648 Last data filed at 03/09/2021 1443 Gross per 24 hour Intake 1350 ml Output 300 ml Net 1050 ml Vitals: 03/09/21 1035 03/09/21 1040 03/09/21 1045 03/09/21 1509 BP: 112/73 123/79 126/79 Pulse: 60 60 56 Resp: 24 23 22 Temp: 97.8 ??F (36.6 ??C) SpO2: 97% 99% 99% 98% Weight: Height: General appearance: female, well groomed with pleasant demeanor HEENT: normocephalic, non-icteric, mucus membranes pink and moist Lungs: breath sounds normal and symmetric; no rales or wheezes Heart: regular rhythm, normal S1 and S2, without murmurs, gallops or rubs Abdomen: soft without distention, bowel sounds auscultated, incisions intact, abdominal binder in place Extremities: no clubbing, cyanosis or edema Skin: warm and dry, color pink, no rashes or bruising Laboratory Findings: Recent Labs Component Name 03/09/21 1005 SODIUM 139 POTASSIUM 3.8 CHLORIDE 107 CO2 22 BUN 11.7 CREATININE 0.96 GLUCOSE 107 CALCIUM 8.3* PHOS 3.8 Recent Labs Component Name 03/09/21 1005 WBC 9.7 HGB 12.9 PLTCOUNT 220 MCV 92.1 Recent Labs Component Name 03/09/21 1005 ALBUMIN 3.4* ALKPHOS 45 TBIL 0.6 AST 42* ALT 50 No results for input(s): CHOL, TRIG, HDL, LDLCALC, VLDL, CHOLHDLRATIO in the last 13779 hours. No results for input(s): TSH, E7GLKQW, T4FREE, G8KIZWM in the last 95336 hours. No results for input(s): AMYLASE, LIPASE, FERRITIN, IRON in the last 97264 hours. Invalid input(s): SATURATION ASSESSMENT AND PLAN 1. Hypertension-patient no longer takes any BP meds. BP stable. Will continue to monitor. 2. GERD-oral omeprazole on hold. IV pantoprazole ordered per surgery. 3. Hypomagnesemia-IV replacement ordered per surgery. Repeat level in am. 4. Morbid obesity-s/p lap sleeve gastrectomy. Dr Mendoza is managing. Patient seen in collaboration with Dr Sage Liao who agrees with plan of care. Thank you for allowing hospitalists to participate in this patient's care. We will follow this patient with you during this hospitalization. documented in this encounter OR Notes * Operative - Rehan Mendoza MD - 03/09/2021 8:07 AM CDT SLEEVE GASTRECTOMY Operative Procedure Pt Name: Maria Del Carmen Ray DATE OF OPERATION:03/09/2021 SURGEON: Surgeon(s) and Role: * Rehan Mendoza MD - Primary LITHOGRAPHIC PRESS OPERATOR APPRENTICE: Registered Nurse Roof Tiler: Crista Ventura RN Scrub Person: Gudelia Vance LPN Equine Intern Orientee: Priya Hurtado RN PREOPERATIVE DIAGNOSIS: Refractory morbid obesity with BMI of Body mass index is 44.45 kg/m??. and comorbid conditions including Gastroesophageal Reflux Disease and Osteoarthritis. POSTOPERATIVE DIAGNOSIS: Same as Pre Op Diagnosis. NAME OF PROCEDURE: 1. Laparoscopic Vertical Sleeve Gastrectomy. ANESTHESIA: General endotracheal anesthesia. IV FLUIDS: Intravenous fluids were administered, lactated Ringer's 1200 ml's. URINE OUTPUT: 0 mls. ESTIMATED BLOOD LOSS: Approximately 20 ml. COMPLICATIONS: None DRAINS: None. SPECIMEN: ID Type Source Tests Collected by Time Destination A : stomach remnant - sleeve gastrectomy Pathology/Cytology Stomach Resect Sub GROSS + MICRO EXAM (ILL) Rehan Mendoza MD 03/09/2021 0905 WOUND CLASSIFICATION: Clean Contaminated. BRIEF HISTORY OPERATIVE INTENTION: This is a 45 year old year old female patient of SANGEETHA Kumar who was seen in my office for consideration of bariatric surgery. The patient had underwent complete preoperative evaluation and was felt to be a good candidate for bariatric intervention given history of refractory morbid obesity with BMI of Body mass index is 44.45 kg/m??. and multiple comorbid conditions including Gastroesophageal Reflux Disease and Osteoarthritis. Options for surgerywere discussed with the patient who elected to proceed with sleeve gastrectomy. The potential risks, benefits, alternatives and complications of the laparoscopic sleeve gastrectomy which included, but not limited to, bleeding, infection, heart attack, stroke, deep vein thrombosis, pulmonary embolism, staple line leak, staple line disruption, possible need for reoperation, possible conversion to open operation, possible stricture, possible spiraling of the sleeve, esophageal injury and were thoroughly discussed with the patient and consent was obtained. The patient was given preoperative antibiotic of Ancef and the patient also had preoperative DVT prophylaxis of 5000 units of heparin subcu. DESCRIPTION OF PROCEDURE: The patient was brought to the operating suite and placed in the supine position. Pneumatic compression device and stockings were applied for DVT prophylaxis, before induction of general endotracheal anesthesia. A Ramirez catheter was placed after induction. The patient's abdomen was prepped and draped in a sterile fashion. After an appropriate timeout, an incision was made 15 cm inferior and 5 cm to the left of the subxiphoid process. A 12 mm Optiview trocar was inserted in the abdomen under direct vision. The abdomen was insufflated with carbon dioxide to a pressure of 15 mg of Hg. Patient tolerated insufflations well. A zero degree scope was introduced to check for entry site injury. There was none. Then a 45 degree scope was introduced. Under direct vision a 15 mm trocar was placed in the right upper quadrant of the abdomen. A 12 mm trocar was placed in the midline between the 15 mm trocar and Optiview trocar. A 5 mm trocar was placed in the left upper quadrant of the abdomen. A subxiphoid incision was made and a Monica liver retractor was placed in the abdominal cavity and used to elevate the left lobe of the liver. 20 cc of Exparel was injected at the port site before placing the ports for local anesthesia. The patient was placed in reversed Trendelenburg position, the angle of His was identified and was mobilized with the help of Andrew and Pita. Then the stomach was elevated and the short gastric blood vessels were identified. The greater curvature of the stomach was then mobilized by dividing the short gastric blood vessels sequentially using the LigaSure. The stomach was completely freed fromthe angle of His. The attachments to the spleen were divided with the LigaSure until the spleen wasnoted to fall into the left upper quadrant. The greater curvature was then dissected to approximately 6 cm proximal to the pylorus. This was again completed with the Ligasure. The stomach was then elevated and posterior attachment to the stomach was taken down using Ligasure. Once the stomach was completely mobilized, an orogastric balloon was advanced to the area of the pylorus. The balloon measured 32-Spanish in diameter to act as a stentfor sleeve creation. Sequential firing of the GARRY stapler was then performed to create the sleeve beginning in an area of 6 cm proximal to the pylorus. 1 Green with Ethicon buttressing material was used followed by 5 Yellow with Ethicon buttressing material was used until the sleeve was created. The balloon was moved between each firing of stapler in order to insure adequate patency of the sleeve. Once the sleeve was created, the distal stomach was then occluded and the upper abdomen was floodedwith saline. The orogastric tube was connected to air flow of 5 mmHg. The sleeve was then noted to insufflate circumferentially and no evidence of leak was noted along the sleeve staple line. Evicealwas applied to suture line. The attachments previously at the greater curvature of the stomach was sutured to Ethicon buttressing material along with the staple line of the distal stomach at the level of the incisura and extending to the pylorus with two interrupted 0 Vicryl stitch. The Monica liver retractor was then removed. Attention was turned to the 15 mm incision in the right upper quadrant. The trocar was removed and the gastric remnant was then removed through the dilated tract. The gastric remnant was removed intact and sent for pathology. A [place]- [place] fascial closure device was used to approximate the fascial opening with 0 Vicryl suture just tied snugly. At the completion, the fascia was noted to be adequately approximated. The abdomen was vented off carbon dioxide and the trocars were removed under direct vision. The trocar sites were irrigated. Theincision was closed with running 4-0 Monocryl stratafix sutures and dressed with Exofin. The patient tolerated the procedure well and was awakened and extubated in the operating room and taken to the recovery room in a satisfactory condition. All sponge, needle and instrument counts werereported to be correct by the circulating nurse. I was scrubbed and present all through the procedure. Rehan Mendoza M.D., F.A.C.S. documented in this encounter Plan of Treatment Upcoming Encounters Date Type Department Care Team (Late st Contact Info) Description 03/15/2025 10:00 AM CDT Office Visit [facility] [address] [place] [phone] Vianey Llanes, SPECIALIST EMPLOYEE LABOR RELATIONS-INFRASTRUCTURE SECURITY ARCHITECT [address] [place] [address] 03/15/2025 10:30 AM CDT Clinical Support [facility] [address] [place] [phone] documented as of this encounter Procedures Procedure Name Priority Date/Time Associated Diagnosis Comments CARDIAC RHYTHM STRIP ORDER 03/11/2021 3:58 PM CDT GLUCOSE - POINT OF CARE Routine 03/10/2021 11:41 AM CDT GLUCOSE - POINT OF CARE Routine 03/10/2021 9:16 AM CDT GLUCOSE - POINT OF CARE Routine 03/10/2021 4:37 AM CDT CBC W AUTO DIFFERENTIAL Routine 03/10/2021 4:13 AM CDT COMPREHENSIVE METABOLIC PANEL Routine 03/10/2021 4:13 AM CDT PHOSPHORUS BLOOD Routine 03/10/2021 4:13 AM CDT MAGNESIUM BLOOD Routine 03/10/2021 4:13 AM CDT GLUCOSE - POINT OF CARE Routine 03/10/2021 12:42 AM CDT GLUCOSE - POINT OF CARE Routine 03/09/2021 8:50 PM CDT MAGNESIUM BLOOD Timed 03/09/2021 7:52 PM CDT GLUCOSE - POINT OF CARE Routine 03/09/2021 4:20 PM CDT GLUCOSE - POINT OF CARE Routine 03/09/2021 12:43 PM CDT GLUCOSE - POINT OF CARE Routine 03/09/2021 11:54 AM CDT CBC W AUTO DIFFERENTIAL Routine 03/09/2021 10:05 AM CDT COMPREHENSIVE METABOLIC PANEL Routine 03/09/2021 10:05 AM CDT PHOSPHORUS BLOOD Routine 03/09/2021 10:0 5 AM CDT MAGNESIUM BLOOD Routine 03/09/2021 10:05 AM CDT GROSS + MICRO EXAM (ILL) Routine 03/09/2021 9:05 AM CDT Morbid obesity (HCC) PA LAP SLEEVE GASTRECTOMY 03/09/2021 7:34 AM CDT Morbid obesity (HCC) Special Needs ARRIVAL TIME:MOVED FROM 02/16/2021 - 03/09/2021 documented in this encounter Results * CARDIAC RHYTHM STRIP ORDER (03/11/2021 3:58 PM CDT) Narrative 03/11/2021 3:58 PM CDT Ordered by an unspecified provider. Scanned Document CARDIAC SERVICES ORD ERABLES * GLUCOSE - POINT OF CARE (03/10/2021 11:41 AM CDT) Glucose WB/POC 100 70 - 125 mg/dL 03/10/2021 11:45 AM CDT [facility] Specimen Type Arterial/C apillary 03/10/2021 11:45 AM CDT [facility] Blood BLOOD SPECIMEN / Unknown 03/10/2021 11:41 AM CDT 03/10/2021 11:45 AM CDT Rehan Mendoza MD LAB - POINT OF CARE ORDERABLES [facility] [address] * GLUCOSE - POINT OF CARE (03/10/2021 9:16 AM CDT) Glucose WB/POC 106 70 - 125 mg/dL 03/10/2021 9:17 AM CDT [facility] Specimen Type Arterial/C apillary 03/10/2021 9:17 AM CDT [facility] Blood BLOOD SPECIMEN / Unknown 03/10/2021 9:16 AM CDT 03/10/2021 9:17 AM CDT Rehan Mendoza MD LAB - POINT OF CARE ORDERABLES Performing Organization Address [facility] Co de Phone Number [facility] [address] [place] [address] * GLUCOSE - POINT OF CARE (03/10/2021 4:37 AM CDT) Glucose WB/POC 84 70 - 125 mg/dL 03/10/2021 4:44 AM CDT [facility] Specimen Type Arterial/C apillary 03/10/2021 4:44 AM CDT [facility] Blood BLOOD SPECIMEN / Unknown 03/10/2021 4:37 AM CDT 03/10/2021 4:44 AM CDT Rehan Mendoza MD LAB - POINT OF CARE ORDERABLES Performing Organization Address [facility] de Phone Number [facility] [address] [place] [address] * PHOSPHORUS BLOOD (03/10/2021 4:13 AM CDT) Phosphorus 2.5 2.3 - 4.7 mg/dL 03/10/2021 4:58 AM CDT [facility] Blood BLOOD SPECIMEN / Unknown Lab Venipuncture / Unknown 03/10/2021 4:13 AM CDT 03/10/2021 4:33 AM CDT Rehan Mendoza MD LAB - CHEMISTRY KARLEE AVINA Performing Organization Address [facility] Co de Phone Number [facility] [address] * MAGNESIUM BLOOD (03/10/2021 4:13 AM CDT) Magnesium 2.1 1.6 - 2.6 mg/dL 03/10/2021 4:58 AM CDT [facility] Blood BLOOD SPECIMEN / Unknown Lab Venipuncture / Unknown 03/10/2021 4:13 AM CDT 03/10/2021 4:33 AM CDT Rehan Mendoza MD LAB - CHEMISTRY KARLEE Burnham Organization Address City/State/ZIP Co de Phone Number [facility] [address] * (ABNORMAL) COMPREHENSIVE METABOLIC PANEL (03/10/2021 4:13 AM CDT) [facility] Signature Glucose 101 70 - 125 mg/dL 03/10/2021 4:57 AM T [facility] Sodium 139 136 - 145 mmol/L 03/10/2021 4:57 AM T [facility] Potassium 3.5 3.4 - 4.5 mmol/L 03/10/2021 4:57 AM T [facility] Chloride 106 98 - 107 mmol/L 03/10/2021 4:57 AM T [facility] CO2 22 22 - 29 mmol/L 03/10/2021 4:57 AM T [facility] Calcium 8.7 8.4 - 10.2 mg/dL 03/10/2021 4:57 AM T [facility] Anion Gap 15 10 - 20 mmol/L 03/10/2021 4:57 AM T [facility] BUN 8.7(L) 9.8 - 20.1 mg/dL 03/10/2021 4:57 AM T [facility] Creatinine 0.91 0.57 - 1.11 mg/dL 03/10/2021 4:57 AM T [facility] eGFR by MDRD >60 >60 mL/min/1.7 3m2 03/10/2021 4:57 AM T [facility] eGFR by MDRD >60 >60 mL/min/1.7 3m2 03/10/2021 4:57 AM T [facility] Alkaline Phosphatase 47 40 - 150 U/L 03/10/2021 4:57 AM T [facility] ALT 54 5 - 55 U/L 03/10/2021 4:57 AM T [facility] AST 52(H) 5 - 34 U/L 03/10/2021 4:57 AM T [facility] Protein Total 6.2(L) 6.4 - 8.3 gm/dL 03/10/2021 4:57 AM T [facility] Albumin 3.4(L) 3.5 - 5.0 gm/dL 03/10/2021 4:57 AM CDT [facility] Globulin Total 2.8 2.6 - 4.0 gm/dL 03/10/2021 4:57 AM CDT [facility] Albumin/Globulin Ratio 1.2 0.9 - 1.6 03/10/2021 4:57 AM CDT [facility] Bilirubin Total 0.6 0.2 - 1.2 mg/dL 03/10/2021 4:57 AM CDT [facility] Blood BLOOD SPECIMEN / Unknown Lab Venipuncture / Unknown 03/10/2021 4:13 AM CDT 03/10/2021 4:33 AM CDT Rehan Mendoza MD LAB - CHEMISTRY ORDE FABRICE [facility] Organization Address City/State/[facility] Co de Phone Number [facility] [address] * (ABNORMAL) CBC W AUTO DIFFERENTIAL (03/10/2021 4:13 AM CDT) WBC 10.7(H) 4.0 - 10.0 x10E9/L 03/10/2021 4:37 AM CDT [facility] RBC 4.37 3.93 - 5.22 x10E12/L 03/10/2021 4:37 AM CDT [facility] Hemoglobin 13.3 11.2 - 15.7 gm/dL 03/10/2021 4:37 AM CDT [facility] Hematocrit 39.7 34.1 - 44.9 % 03/10/2021 4:37 AM CDT [facility] MCV 90.8 78.0 - 100.0 fl 03/10/2021 4:37 AM CDT [facility] MCH 30.4 25.6 - 34.0 pg 03/10/2021 4:37 AM CDT [facility] MCHC 33.5 32.3 - 36.5 gm/dL 03/10/2021 4:37 AM CDT [facility] RDW 13.3 11.6 - 14.4 % 03/10/2021 4:37 AM CDT [facility] MPV 10.1 9.4 - 12.4 fl 03/10/2021 4:37 AM CDT [facility] Platelet Count 243 163 - 369 x10E9/L 03/10/2021 4:37 AM [facility] Neutrophils % 74.0 40.0 - 75.0 % 03/10/2021 4:37 AM [facility] Lymphocytes % 19.2(L) 19.3 - 53.1 % 03/10/2021 4:37 AM [facility] Monocytes % 6.6 4.7 - 12.5 % 03/10/2021 4:37 AM [facility] Eosinophils % 0.0(L) 0.7 - 7.0 % 03/10/2021 4:37 AM [facility] Basophils % 0.1 0.1 - 1.2 % 03/10/2021 4:37 AM [facility] Immature Granulocytes 0.1 0 - 0.5 % 03/10/2021 4:37 AM [facility] Neutrophil Absolute 7.88(H) 1.56 - 6.13 x10E9/L 03/10/2021 4:37 AM [facility] Lymphocytes Absolute 2.05 1.18 - 3.74 x10E9/L 03/10/2021 4:37 AM [facility] Monocytes Absolute 0.70 0.24 - 0.86 x10E9/L 03/10/2021 4:37 AM [facility] Eosinophils Absolute 0.00(L) 0.04 - 0.54 x10E9/L 03/10/2021 4:37 AM [facility] Basophils Absolute 0.01 0.01 - 0.08 x10E9/L 03/10/2021 4:37 AM [facility] Immature Granulocytes Absolute 0.01 0 - 0.03 x10E9/L 03/10/2021 4:37 AM [facility] nRBC Auto 0 <=0 /100 WBC 03/10/2021 4:37 AM [facility] nRBC Absolute 0.00 <=0 x10E9/L 03/10/2021 4:37 AM [facility] Blood BLOOD SPECIMEN / Unknown Lab Venipuncture / Unknown 03/10/2021 4:13 AM CDT 03/10/2021 4:33 AM T Rehan Mendoza MD LAB - HEMATOLOGY ORD ERABLES Performing Organization Address [facility] Co de Phone Number [facility] [address] * GLUCOSE - POINT OF CARE (03/10/2021 12:42 AM CDT) Glucose WB/POC 79 70 - 125 mg/dL 03/10/2021 12:49 AM CDT [facility] Specimen Type Arterial/C apillary 03/10/2021 12:49 AM CDT [facility] Blood BLOOD SPECIMEN / Unknown 03/10/2021 12:42 AM CDT 03/10/2021 12:49 AM CDT Rehan Mendoza MD LAB - POINT OF CARE ORDERABLES Performing Organization Address [facility] Co de Phone Number [facility] [address] [place] [address] * GLUCOSE - POINT OF CARE (03/09/2021 8:50 PM CDT) Glucose WB/POC 86 70 - 125 mg/dL 03/09/2021 9:04 PM CDT [facility] Specimen Type Arterial/C apillary 03/09/2021 9:04 PM CDT [facility] Blood BLOOD SPECIMEN / Unknown 03/09/2021 8:50 PM CDT 03/09/2021 9:04 PM CDT Rehan Mendoza MD LAB - POINT OF CARE ORDERABLES Performing Organization Address [facility] Co de Phone Number [facility] [address] * MAGNESIUM BLOOD (03/09/2021 7:52 PM CDT) Magnesium 2.4 1.6 - 2.6 mg/dL 03/09/2021 8:16 PM CDT [facility] Blood BLOOD SPECIMEN / Unknown Lab Venipuncture / Unknown 03/09/2021 7:52 PM CDT 03/09/2021 7:56 PM CDT Rehan Mendoza MD LAB - CHEMISTRY ORDE RABLES Performing Organization Address City/[facility]/ZIP Co de Phone Number [facility] [address] * GLUCOSE - POINT OF CARE (03/09/2021 4:20 PM CDT) Glucose WB/POC 98 70 - 125 mg/dL 03/09/2021 4:30 PM CDT [facility] Specimen Type Arterial/C apillary 03/09/2021 4:30 PM CDT [facility] Blood BLOOD SPECIMEN / Unknown 03/09/2021 4:20 PM CDT 03/09/2021 4:29 PM CDT Rehan Mendoza MD LAB - POINT OF CARE ORDERABLES Performing Organization Address [facility] Co de Phone Number [facility] [address] [place] [address] * GLUCOSE - POINT OF CARE (03/09/2021 12:43 PM CDT) Glucose WB/POC 103 70 - 125 mg/dL 03/09/2021 12:44 PM CDT [facility] Specimen Type Arterial/C apillary 03/09/2021 12:44 PM CDT [facility] Blood BLOOD SPECIMEN / Unknown 03/09/2021 12:43 PM CDT 03/09/2021 12:44 PM CDT Rehan Mendoza MD LAB - POINT OF CARE ORDERABLES Performing Organization Address City/[facility] Co de Phone Number [facility] [address] [place] [address] * (ABNORMAL) GLUCOSE - POINT OF CARE (03/09/2021 11:54 AM CDT) Glucose WB/POC 66(L) 70 - 125 mg/dL 03/09/2021 12:07 PM CDT [facility] Specimen Type Arterial/C apillary 03/09/2021 12:07 PM CDT [facility] Blood BLOOD SPECIMEN / Unknown 03/09/2021 11:54 AM CDT 03/09/2021 12:07 PM CDT Rehan Mendoza MD LAB - POINT OF CARE ORDERABLES Performing Organization Address [facility] Co de Phone Number [facility] [address] [place] [address] * PHOSPHORUS BLOOD (03/09/2021 10:05 AM CDT) Phosphorus 3.8 2.3 - 4.7 mg/dL 03/09/2021 10:43 AM CDT [facility] Blood BLOOD SPECIMEN / Unknown Lab Venipuncture / Unknown 03/09/2021 10:05 AM CDT 03/09/2021 10:18 AM CDT Rehan Mendoza MD LAB - CHEMISTRY KARLEE AVINA Performing Organization Address [facility] Co de Phone Number [facility] [address] [place] [address] * (ABNORMAL) MAGNESIUM BLOOD (03/09/2021 10:05 AM CDT) Magnesium 1.5(L) 1.6 - 2.6 mg/dL 03/09/2021 10:43 AM CDT [facility] Blood BLOOD SPECIMEN / Unknown Lab Venipuncture / Unknown 03/09/2021 10:05 AM CDT 03/09/2021 10:18 AM CDT Rehan Mendoza MD LAB - CHEMISTRY KARLEE AVINA Performing Organization Address [facility] Co de Phone Number [facility] [address] [place] [address] * (ABNORMAL) COMPREHENSIVE METABOLIC PANEL (03/09/2021 10:05 AM CDT) Glucose 107 70 - 125 mg/dL 03/09/2021 10:43 AM CDT [facility] Sodium 139 136 - 145 mmol/L 03/09/2021 10:43 AM CDT [facility] Potassium 3.8 3.4 - 4.5 mmol/L 03/09/2021 10:43 AM CDT [facility] Chloride 107 98 - 107 mmol/L 03/09/2021 10:43 AM [facility] CO2 22 22 - 29 mmol/L 03/09/2021 10:43 AM [facility] Calcium 8.3(L) 8.4 - 10.2 mg/dL 03/09/2021 10:43 AM [facility] Anion Gap 14 10 - 20 mmol/L 03/09/2021 10:43 AM [facility] BUN 11.7 9.8 - 20.1 mg/dL 03/09/2021 10:43 AM [facility] Creatinine 0.96 0.57 - 1.11 mg/dL 03/09/2021 10:43 AM [facility] eGFR by MDRD >60 >60 mL/min/1.7 3m2 03/09/2021 10:43 AM [facility] eGFR by MDRD >60 >60 mL/min/1.7 3m2 03/09/2021 10:43 AM [facility] Alkaline Phosphatase 45 40 - 150 U/L 03/09/2021 10:43 AM [facility] ALT 50 5 - 55 U/L 03/09/2021 10:43 AM [facility] AST 42(H) 5 - 34 U/L 03/09/2021 10:43 AM [facility] Protein Total 5.9(L) 6.4 - 8.3 gm/dL 03/09/2021 10:43 AM [facility] Albumin 3.4(L) 3.5 - 5.0 gm/dL 03/09/2021 10:43 AM [facility] Globulin Total 2.5(L) 2.6 - 4.0 gm/dL 03/09/2021 10:43 AM [facility] Albumin/Globulin Ratio 1.4 0.9 - 1.6 03/09/2021 10:43 AM [facility] Bilirubin Total 0.6 0.2 - 1.2 mg/dL 03/09/2021 10:43 AM [facility] Blood BLOOD SPECIMEN / Unknown Lab Venipuncture / Unknown 03/09/2021 10:05 AM CDT 03/09/2021 10:18 AM T Rehan Mendoza MD LAB - CHEMISTRY ORDE FABRICE Performing Organization Address City/State/[facility] Co de Phone Number [facility] [address] * (ABNORMAL) CBC W AUTO DIFFERENTIAL (03/09/2021 10:05 AM CDT) [facility] Signature WBC 9.7 4.0 - 10.0 x10E9/L 03/09/2021 10:22 AM CDT [facility] RBC 4.19 3.93 - 5.22 x10E12/L 03/09/2021 10:22 AM CDT [facility] Hemoglobin 12.9 11.2 - 15.7 gm/dL 03/09/2021 10:22 AM CDT [facility] Hematocrit 38.6 34.1 - 44.9 % 03/09/2021 10:22 AM CDT [facility] MCV 92.1 78.0 - 100.0 fl 03/09/2021 10:22 AM CDT [facility] MCH 30.8 25.6 - 34.0 pg 03/09/2021 10:22 AM CDT [facility] MCHC 33.4 32.3 - 36.5 gm/dL 03/09/2021 10:22 AM CDT [facility] RDW 13.6 11.6 - 14.4 % 03/09/2021 10:22 AM CDT [facility] MPV 10.0 9.4 - 12.4 fl 03/09/2021 10:22 AM CDT [facility] Platelet Count 220 163 - 369 x10E9/L 03/09/2021 10:22 AM CDT [facility] Neutrophils % 85.4(H) 40.0 - 75.0 % 03/09/2021 10:22 AM CDT [facility] Lymphocytes % 11.8(L) 19.3 - 53.1 % 03/09/2021 10:22 AM CDT [facility] Monocytes % 2.4(L) 4.7 - 12.5 % 03/09/2021 10:22 AM CDT [facility] Eosinophils % 0.2(L) 0.7 - 7.0 % 03/09/2021 10:22 AM CDT [facility] Basophils % 0.1 0.1 - 1.2 % 03/09/2021 10:22 AM CDT [facility] Immature Granulocytes 0.1 0 - 0.5 % 03/09/2021 10:22 AM CDT [facility] Neutrophil Absolute 8.29(H) 1.56 - 6.13 x10E9/L 03/09/2021 10:22 AM CDT [facility] Lymphocytes Absolute 1.14(L) 1.18 - 3.74 x10E9/L 03/09/2021 10:22 AM CDT [facility] Monocytes Absolute 0.23(L) 0.24 - 0.86 x10E9/L 03/09/2021 10:22 AM CDT [facility] Eosinophils Absolute 0.02(L) 0.04 - 0.54 x10E9/L 03/09/2021 10:22 AM CDT [facility] Basophils Absolute 0.01 0.01 - 0.08 x10E9/L 03/09/2021 10:22 AM CDT [facility] Immature Granulocytes Absolute 0.01 0 - 0.03 x10E9/L 03/09/2021 10:22 AM CDT [facility] nRBC Auto 0 <=0 /100 WBC 03/09/2021 10:22 AM CDT [facility] nRBC Absolute 0.00 <=0 x10E9/L 03/09/2021 10:22 AM CDT [facility] Blood BLOOD SPECIMEN / Unknown Lab Venipuncture / Unknown 03/09/2021 10:05 AM CDT 03/09/2021 10:18 AM CDT Rehan Mendoza MD LAB - HEMATOLOGY ORD ERABLES Performing Organization Address [facility] de Phone Number [facility] [address] * GROSS + MICRO EXAM (ILL) (03/09/2021 9:05 AM CDT) Case Report Surgical Pathology Report ? Case: [id number] ? Authorizing Provider: ??Rehan Mendoza MD ?Collected: ? 03/09/2021 09:05 AM ? Ordering Location: ? [facility] ?Received: ?03/09/2021 02:06 PM ? Pathologist: ? Monica Martinez MD ? Specimen: ?Stomach Resect Sub, stomach remnant - sleeve gastrectomy ? 03/11/2021 12:43 PM [facility] Final Diagnosis Stomach remnant, sleeve gastrectomy: - No significant histologic abnormality. 03/11/2021 12:43 PM [facility] Microscopic Description and Comment Microscopic examination is performed and substantiates the above diagnosis. 03/11/2021 12:43 PM [facility] Clinical History Morbid obesity. 03/11/2021 12:43 PM [facility] Gross Description Received in formalin labeled Maria Del Carmen Ray, stomach remnant sleeve gastrectomy, stomach resec sub is a stapled pink gastric resection measuring 28.0 x 4.2 x3.0 cm. The specimen is received open 7 cm from one margin. The specimen is opened longitudinally to reveal unremarkable rugal folds without masses or lesions. [employer] Wall [employer]er sections are submitted in A1-A2. LS/scs 03/11/2021 12:43 PM [facility] Disclaimer The performance characteristics of all immunohistochemical and indirect immunofluorescence stains (if any) cited in this report were determined by the Histopathology Laboratory of [facility]. Some of these tests were developed by [...] slides and special stains prepared at [facility], [place]. [address] (CLIA# [id number]) unless otherwise specified. This case was interpreted by the [facility] Department of Pathology. When applicable, select reference laboratory testing is performed at the [facility], [address] [place] [id number]. 03/11/2021 12:43 PM CDT [facility] Embedded Images 03/11/2021 12:43 PM CDT [facility] Pathology/Cytolo gy SPECIMEN FROM STOMACH OBTAINED BY PARTIAL GASTRECTOMY / Unknown 03/09/2021 9:05 AM CDT 03/09/2021 2:06 PM CDT Comment:Pre-op diagnosis: Morbid obesity [E66.01] Rehan Mendoza MD LAB - PATHOLOGY/CYTO LOGY ORDERABLES Performing Organization Address [facility] de Phone Number [facility] [address] documented in this encounter Visit Diagnoses Diagnosis Morbid obesity (HCC)- Primary Morbid obesity Essential hypertension Gastroesophageal reflux disease, unspecified whether esophagitis present Hypomagnesemia 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 To be started after 2 doses of IV tylenol., Post-op $ Given 03/10/2021 8:52 AM CDT 1,000 mg $ Given 03/10/2021 3:15 AM CDT 1,000 mg bupivacaine liposome (Exparel) in NaCl irrigation PRN, Starting on Tue03/09/21 at 0813, Until Tue03/09/21 at 0941, Intra-op $ Given 03/09/2021 8:13 AM CDT 60 mL Operative Site dextrose IV 12.5-25 g 12.5-25 g (25-50 mL), Intravenous, PRN, Bedside Glucose less than 70 mg/dL -If NOT able to eat and/or NPO and with IV Access, Starting on Tue03/09/21 at 1112, Until Tue03/10/21 at 1410, If NOT able to eat and/or NPO and with IV Access: For Bedside Glucose 54-69 mg/dL give 25 mls D50W IVP STAT For Bedside glucose 54 mg/dL or LESS verify with a second Bedside Glucose (from a different site) and give 50 mls D50W IVP STAT Re-check and Re-treat blood glucose EVERY 10-25 minutes until blood glucose GREATER than or equal to 80 mg/dl. NOTIFY PROVIDER OF HYPOGLYCEMIC EVENT., Post-op $ Given 03/09/2021 12:10 PM CDT 25 g heparin injection 5,000 Units 5,000 Units, Subcutaneous, EVERY 8 HOURS, First dose on Tue03/10/21 at 0900, Until Discontinued, Post-op $ Given 03/10/2021 8:52 AM CDT 5,000 Units Abdominal Tissue magnesium sulfate 2 g in 50 mL bolus 2 g, at 25 mL/hr, Administer over 120 Minutes, Intravenous, PRN, magnesium replacement, Starting on Tue03/09/21 at 1112, Until Tue03/10/21 at 1410, Administer a 4 g and 2 g bag for a total of 6 g. If magnesium level is < 1.0 administer magnesium sulfate IV 6 g over 4 hours. Repeat magnesium level 4 hours after infusion is complete. Call physician prior to administration if SCr > 2 mg/dl and/or urinary output is < 30 ml/hr. magnesium sulfate 4 g in 100 mL bolus 4 g, at 25 mL/hr, Administer over 240 Minutes, Intravenous, PRN, magnesium replacement, Starting on Tue03/09/21 at 1112, Until Tue03/10/21 at 1410, Administer a 4 g and 2 g bag for a total of 6 g. If magnesium level is < 1.0 administer magnesium sulfate IV 6 g over 4 hours. Repeat magnesium level 4 hours after infusion is complete. Call physician prior to administration if SCr > 2 mg/dl and/or urinary output is < 30 ml/hr. Current Rate 03/09/2021 12:04 PM CDT 25 mL/hr $ New Bag/Syringe 03/09/2021 11:59 AM CDT 4 g 25 mL /hr NaCl 0.9 % irrigation PRN, Starting on Tue03/09/21 at 0900, Until Tue03/09/21 at 0941, Intra-op $ Given 03/09/2021 9:00 AM CDT 1,500 mL Operative Site pantoprazole (Protonix) injection 80 mg 80 mg, Intravenous, 2 TIMES DAILY, First dose on Tue03/09/21 at 1000, Until Discontinued, First dose in PACU, Reconstitute vial with 10 mL of 0.9% NaCL to a final concentration 4 mg/mL. [place] prescribed dose over at least 2min. For every 40 mg of pantoprazole mix with 10 mL Normal Saline (final concentration = 4 mg/mL). Inject SLOWLY over 2 min., Post-op $ Given 03/10/2021 8:45 AM CDT 80 mg $ Given 03/09/2021 9:00 PM CDT 80 mg $ Given 03/09/2021 9:53 AM CDT 80 mg Verold capsule 1 capsule 1 capsule, Oral, DAILY, First dose on Tue03/10/21 at 0900, Until Discontinued, Post-op $ Given 03/10/2021 8:51 AM CDT 1 capsule potassium phosphate 20 mmol in d5w 250 mL bolus 20 mmol, at 62.5 mL/hr, Administer over 4 Hours, Intravenous, PRN, serum phosphorus level is 1.0 - 1.9 mg/dL, Starting on Tue03/09/21 at 1112, Until Tue03/10/21 at 1410, If serum phosphorus level is 1.0 - 1.9 mg/dL administer potassium phosphate 20 mmol bolus IV over 4 hours. Repeat serum phosphorus level 2 hours after infusion is complete. Call physician prior to administration if serum potassium is > 4.0 mEq/L $ New Bag/Syringe 03/10/2021 8:51 AM CDT 20 mmol 62.5 mL/hr thiamine (Vitamin B-1) 100 mg in 0.9% NaCl IV 50 mL IVPB 100 mg, at 100 mL/hr, Intravenous, DAILY, 3 doses, First dose on Tue03/09/21 at 1300, Last dose on Tue03/11/21 at 0900, Protect from light, Post-op $ New Bag/Syringe 03/10/2021 8:42 AM CDT 100 mg 100 mL/hr Current Rate 03/09/2021 3:14 PM CDT 100 mL/hr $ New Bag/Syringe 03/09/2021 3:12 PM CDT 100 mg 100 mL /hr documented in this encounter Active and Recently Administered Medications Times are shown in CDT. Scheduled Medication Order 03/08/2021 03/09/2021 03/10/2021 acetaminophen (Ofirmev) injection 1,000 mg (COMPLETED) 1,000 mg, at 400 mL/hr, Intravenous, ONCE, 1 dose, On Tue03/09/21 at 0600, See SharedReviewsedex for renal dosing guidelines. 0753 ($ Given - Provider: David Burger, SPECIALIST EMPLOYEE LABOR RELATIONS-TRANSPORTATION ENGINEER) acetaminophen (Ofirmev) injection 1,000 mg (COMPLETED) 1,000 mg, at 400 mL/hr, Intravenous, EVERY 6 HOURS, 2 doses, First dose on Tue03/09/21 at 1400, Last dose on Tue03/09/21 at 2000, See SharedReviewsedex for renal dosing guidelines. 1347 ($ New Bag/Syringe - Provider: Lyn Mcgraw RN)1402 (Stopped - Provider: Lyn Mcgraw RN)2035 ($ New Bag/Syringe - Provider: Luisa Alcantara RN)0 (Stopped - Provider: Luisa Alcantara RN) acetaminophen (Tylenol) solution 1,000 mg 1,000 mg, Oral, EVERY 6 HOURS, 20 doses, First dose on Tue03/10/21 at 0200, Last dose on Tue03/14/21 at 2000, Not to be given along with the IV tylenol. To be started after 2 doses of IV tylenol., Post-op 0315 ($ Given - Prov ider: Luisa Alcantara RN)0852 ($ Given - Provider: Lyn Mcgraw RN) ceFAZolin (Ancef) 2,000 mg in 50 ml IVPB (COMPLETED) 2,000 mg (2 g), at 100 mL/hr, Intravenous, ONCE, 1 dose, On Tue03/09/21 at 1300, Indication for anti-infective therapy: Surgical prophylaxis 1347 ($ New Bag/Syringe - Provider: Lyn Mcgraw RN)1417 (Stopped - Provider: Lyn Mcgraw RN) celecoxib (CeleBREX) capsule 400 mg (COMPLETED) 400 mg, Oral, PRE-OP ONCE, 1 dose, On Tue03/09/21 at 0600, Pre-op 0612 ($ Given - Provider: Ximena Dunn RN) ciprofloxacin (Cipro) 400 mg in 200 mL IVPB (COMPLETED) 400 mg, at 200 mL/hr, Intravenous, PRE-OP ONCE, 1 dose, On Tue03/09/21 at 0600, Administer 30 minutes prior to surgical incision., Indication for anti-infective therapy: Surgical prophylaxis, Pre-op 0755 ($ Given - Provider: EDISON Lloyd) clindamycin (Cleocin) 900 mg in 50 mL D5W IVPB (COMPLETED) 900 mg, at 100 mL/hr, Intravenous, PRE-OP ONCE, 1 dose, On Tue03/09/21 at 0600, Administer 30 minutes prior to surgical incision., Indication for anti-infective therapy: Surgical prophylaxis, Pre-op 0809 ($ Given - Provider: EDISON Lloyd) famotidine (Pepcid) injection 20 mg (COMPLETED) 20 mg, Intravenous, PRE-OP ONCE, 1 dose, On Tue03/09/21 at 0715, Dilute 2 mL of injection with 0.9% NaCl or D5W solution to a volume of 5 to 10 ml. Push over a period of at least 2 minutes. Dilute with 0.9% NaCl or D5W solution to a volume of 5 to 10 ml and administer over at least 2 minutes., Pre-op 0715 ($ Given - Provider: Ximena Dunn RN) gabapentin (Neurontin) capsule 300 mg (COMPLETED) 300 mg, Oral, ONCE, 1 dose, On Tue03/09/21 at 0600, Pre-op 0612 ($ Given - Provider: Ximena Dunn RN) heparin injection 5,000 Units (COMPLETED) 5,000 Units, Subcutaneous, PRE-OP ONCE, 1 dose, On Tue03/09/21 at 0600, Pre-op 0605 ($ Given - Provider: Ximena Dunn RN) heparin injection 5,000 Units 5,000 Units, Subcutaneous, EVERY 8 HOURS, First dose on Tue03/10/21 at 0900, Until Discontinued, Post-op 0852 ($ Given - Prov ider: Lyn Mcgraw RN) insulin aspart (NovoLOG) pen 0-6 Units 0-6 Units, Subcutaneous, EVERY 4 HOURS, First dose on Tue03/09/21 at 1200, Until Discontinued, Low Dose: Correction Insulin BG (mg/dL) Corrective Action LESS than 70: follow Hypoglycemic guidelines, 70-180: NO Correction insulin, 181-220: GIVE 2 units of insulin, 221-260: GIVE 3 units of insulin, 261-300: GIVE 4 units of insulin, 301-350: GIVE 5 units of insulin, Greater than 350: GIVE 6 units of insulin and notify physician DO NOT HOLD if Patient is NPO. If patient has orders for Mealtime insulin combine and give at same time., Post-op 1200 (Not Administered - Provider: Lyn Mcgraw RN - Reason: Per Administration Instructions)1623 (Not Administered - Provider: Lyn Mcgraw RN - Reason: Per Administration Instructions)2053 (Not Administered - Provider: Luisa Alcantara RN - Reason: Per Administration Instructions) 0043 (Not Administered - Provider: Luisa Alcantara RN - Reason: Per Administration Instructions)0439 (Not Administered - Provider: Luisa Alcantara RN - Reason: Per Administration Instructions)0916 (Not Administered - Provider: Lyn Mcgraw RN - Reason: Per Administration Instructions)1142 (Not Administered - Provider: yLn Mcgraw RN - Reason: Per Administration Instructions) metoclopramide (Reglan) injection 10 mg (COMPLETED) 10 mg, Intravenous, PRE-OP ONCE, 1 dose, On Tue03/09/21 at 0715, Pre-op 0720 ($ Given - Provider: Ximena Dunn RN) metoclopramide (Reglan) injection 10 mg (COMPLETED)(Linked Group 1) 10 mg, Intravenous, EVERY 6 HOURS, 4 doses, First dose on Tue03/09/21 at 1200, Last dose on Tue03/10/21 at 0600, Inject undiluted IV slowly over 1 to 2 minutes., Post-op 1203 ($ Given - Provider: Lyn Mcgraw RN)1751 ($ Given - Provider: Lyn Mcgraw RN) 0040 ($ Given - Provider: Luisa Alcantara, RITA)0605 ($ Given - Provider: Luisa Alcantara, RITA) metoprolol (Lopressor) injection 5 mg () 5 mg, Intravenous, EVERY 4 HOURS, 6 doses, First dose on Tue03/09/21 at 1200, Last dose on Tue03/10/21 at 0800, Hold if HR is less than 60 bpm or SBP is less than 110 mmHg, Post-op 1204 ($ Given - Provider: Lyn Mcgraw RN)1623 ($ Given - Provider: Lyn Mcgraw RN)2054 ($ Given - Provider: Luisa Alcantara, RITA) 0046 (Not Administered - Provider: Luisa Alcantara RN - Reason: Per Administration Instructions)0440 (Not Administered - Provider: Luisa Alcantara RN - Reason: Per Administration Instructions)0846 ($ Given - Provider: Lyn Mcgraw RN) ondansetron (Zofran) injection 4 mg (COMPLETED) 4 mg, Intravenous, PRE-OP ONCE, 1 dose, On Tue03/09/21 at 0715, Pre-op 0718 ($ Given - Provider: Ximena Dunn RN) ondansetron (Zofran) injection 4 mg (COMPLETED)(Linked Group 2) 4 mg, Intravenous, EVERY 6 HOURS, 4 doses, First dose on Tue03/09/21 at 1500, Last dose on Tue03/10/21 at 0900, Administer over 2 to 5 minutes., Post-op 1623 ($ Given - Provider: Lyn Mcgraw RN)2256 ($ Given - Provider: Luisa Alcantara RN) 0441 ($ Given - Provider: Luisa Alcantara, RITA)0845 ($ Given - Provider: Lyn Mcgraw RN) pantoprazole (Protonix) injection 80 mg 80 mg, Intravenous, 2 TIMES DAILY, First dose on Tue03/09/21 at 1000, Until Discontinued, First dose in PACU, Reconstitute vial with 10 mL of 0.9% NaCL to a final concentration 4 mg/mL. [place] prescribed dose over at least 2min. For every 40 mg of pantoprazole mix with 10 mL Normal Saline (final concentration = 4 mg/mL). Inject SLOWLY over 2 min., Post-op 0953 ($ Given - Provider: Brenda Taylor, RITA)2100 ($ Given - Provider: Luisa Alcantara, RN) 0845 ($ Given - Provider: Lyn Mcgraw, RITA) Verold capsule 1 capsule 1 capsule, Oral, DAILY, First dose on Tue03/10/21 at 0900, Until Discontinued, Post-op 0851 ($ Given - Prov ider: Lyn Mcgraw RN) sodium citrate-citric acid 500-334 mg/5 mL oral solution (COMPLETED) 30 mL, Oral, PRE-OP ONCE, 1 dose, On Tue03/09/21 at 0715, Dilute in 1-3 ounces of water before taking; follow with additional water if desired. SHAKE WELL BEFORE USING, Pre-op 0723 ($ Given - Provider: Ximena Dunn RN) thiamine (Vitamin B-1) 100 mg in 0.9% NaCl IV 50 mL IVPB 100 mg, at 100 mL/hr, Intravenous, DAILY, 3 doses, First dose on Tue03/09/21 at 1300, Last dose on Tue03/11/21 at 0900, Protect from light, Post-op 1512 ($ New Bag/Syringe - Provider: Lyn Mcgraw RN)1514 (Current Rate - Provider: Luisa Alcantara, RITA)1542 (Stopped - Provider: Lyn Mcgraw RN) 0842 ($ New Bag/Syringe - Provider: Lyn Mcgraw, RITA)0912 (Stopped - Provider: Lyn Mcgraw RN) Continuous Medication Order 03/08/2021 03/09/2021 03/10/2021 dexmedetomidine (Precedex) 200 mcg in 50 mL infusion (CANCELED) 0-1.5 mcg/kg/hr ? 106.7 kg (0-40.0125 mL/hr, rounded to 0-40.01 mL/hr), Intravenous, CONTINUOUS, Starting on Tue03/09/21 at 0715, Until Tue03/09/21 at 1112, Titration Parameters: Standard Parameters, Indication: Sedation, Initiate infusion at: 0.2 mcg/kg/hr, Titrate infusion by: 0.1 mcg/kg/hr, Titrate every: 30 minutes, To maintain a: RASS score of -3 = Moderate sedation, Notify physician if: Unachievable RASS goal despite max dose, Pre-op 0849 ($ New Bag/Syringe - Provider: EDISON Lloyd)1000 (Stopped - Provider: Brenda aTylor RN) lactated ringers infusion (CANCELED) at 75 mL/hr, Intravenous, PRE-OP CONTINUOUS, Starting on Tue03/09/21 at 0715, Until Tue03/09/21 at 1112, Pre-op 0719 ($ New Bag/Syringe - Provider: EDISON Lloyd)0915 (Paused - Provider: EDISON Lloyd - Comment: Switch to gravity)0916 ($ New Bag/Syringe - Provider: EDISON Lloyd) lactated ringers infusion () at 150 mL/hr, Intravenous, CONTINUOUS, Starting on Tue03/09/21 at 1115, Until Tue03/10/21 at 1114, Post-op 1206 ($ New Bag/Syringe - Provider: Lyn Mcgraw RN)1209 (Current Rate - Provider: Luisa Alcantara RN)1417 (Current Rate - Provider: Luisa Alcantara RN)1542 (Current Rate - Provider: Luisa Alcantara RN)2017 (Current Rate - Provider: Luisa Alcantara RN)202 (Stopped - Provider: Luisa Alcantara RN)2028 ($ New Bag/Syringe - Provider: Luisa Alcantara RN)202 (Current Rate - Provider: Luisa Alcantara RN) 0314 (Current Rate - Provider: Luisa Alcantara RN)0446 (Stopped - Provider: Luisa Alcantara RN)0449 ($ New Bag/Syringe - Provider: Luisa Alcantara RN)0454 (Current Rate - Provider: Luisa Alcantara RN)0602 (Current Rate - Provider: Luisa Alcantara RN)1130 (Stopped - Provider: Lyn Mcgraw RN) PRN Medication Order 03/08/2021 03/09/2021 03/10/2021 albuterol (Proventil;Ventolin) (2.5 MG/3ML) 0.083% nebulizer solution 2.5 mg 2.5 mg, Inhalation, EVERY 4 HOURS PRN, Shortness of Breath, Wheezing, Starting on Tue03/09/21 at 1112, Until Tue03/10/21 at 1410, Post-op bupivacaine liposome (Exparel) in NaCl irrigation (CANCELED) PRN, Starting on Tue03/09/21 at 0813, Until Tue03/09/21 at 0941, Intra-op 0813 ($ Given - Provider: Rehan Mendoza MD) dextrose IV 12.5-25 g 12.5-25 g (25-50 mL), Intravenous, PRN, Bedside Glucose less than 70 mg/dL -If NOT able to eat and/or NPO and with IV Access, Starting on Tue03/09/21 at 1112, Until Tue03/10/21 at 1410, If NOT able to eat and/or NPO and with IV Access: For Bedside Glucose 54-69 mg/dL give 25 mls D50W IVP STAT For Bedside glucose 54 mg/dL or LESS verify with a second Bedside Glucose (from a different site) and give 50 mls D50W IVP STAT Re-check and Re-treat blood glucose EVERY 10-25 minutes until blood glucose GREATER than or equal to 80 mg/dl. NOTIFY PROVIDER OF HYPOGLYCEMIC EVENT., Post-op 1210 ($ Given - Provider: Lyn Mcgraw RN) diphenhydrAMINE (Benadryl) capsule 25 mg 25 mg, Oral, EVERY 6 HOURS PRN, Itching, Starting on Tue03/09/21 at 1112, Until Tue03/10/21 at 1410, When tolerating PO., Post-op diphenhydrAMINE (Benadryl) injection 25 mg 25 mg, Intravenous, EVERY 6 HOURS PRN, Itching, Starting on Tue03/09/21 at 1112, Until Tue03/10/21 at 1410, Until tolerating PO., Post-op fentaNYL (PF) (Sublimaze) injection 25 mcg 25 mcg, Intravenous, EVERY 2 HOURS PRN, Moderate Pain, Starting on Tue03/09/21 at 1112, Until Tue03/10/21 at 1410, Post-op fentaNYL (PF) (Sublimaze) injection 37.5 mcg (CANCELED) 37.5 mcg, Intravenous, EVERY 10 MIN PRN, Moderate Pain, 4 doses, Starting on Tue03/09/21 at 0946, Until Tue03/09/21 at 1112, Maximum total of 4 doses. If patient reaches max total dose, please consult anesthesiologist prior to further administration of pain meds. Hold pain meds if there are signs of hypoventilation., PACU 1021 ($ Given - Provider: Brenda Taylor RN) glucagon (Glucagen) injection 1 mg 1 mg, Intramuscular, PRN, Bedside Glucose less than 70 mg/dL - If NOT able to eat and/or NPO and withOUT IV Access, Starting on Tue03/09/21 at 1112, Until Tue03/10/21 at 1410, If NOT able to eat and/or NPO and NO IV Access: For Bedside glucose 54-69 mg/dL Give 1 mg IM or SQ For Bedside Glucose LESS than 54 mg/dl verify with a second bedside glucose (from a different site) and Give 1 mg IM or SQ Re-check and Re-treat blood glucose EVERY 10-25 minutes until blood glucose GREATER than or equal to 80 mg/dl. NOTIFY PROVIDER OF HYPOGLYCEMIC EVENT. Reconstitute vial with 1 mL of sterile water for injection for a final concentration of 1 mg/mL; shake vial gently; use immediately and discard unused portion, Post-op glucose (Diabetic Use) (Dex4 Glucose) oral liquid Oral, PRN, Other, Bedside Glucose less than 70 mg/dL -If able to eat and does not have swallowing difficulties, Starting on Tue03/09/21 at 1112, Until Tue03/10/21 at 1410, If able to eat and can swallow thin liquids: For Bedside Glucose 54 - 69 mg/dL Give 15 grams of oral carbohydrates - 1 glucose liquid (see MAR) If patient refuses glucose liquid, then offer: - 4 ounces of fruit juice OR - 4 ounces non-diet soda OR - 8 ounces of fat-free milk For Bedside Glucose LESS than 54 mg/dL verify with a second Bedside Glucose (from a different site) - If pt is symptomatic, do not delay treatment If the patient is exhibiting symptoms which are not consistent with the results obtained, confirm the glucose with a STAT laboratory test. Give 30 grams of oral carbohydrates - 2 glucose liquid (see MAR) If patient refuses glucose liquid, then offer: - 8 ounces of fruit juice OR - 8 ounces non-diet soda OR - 16 ounces of fat-free milk Re-check and Re-treat blood glucose EVERY 10-25 minutes until blood glucose GREATER than or equal to 80 mg/dl. NOTIFY PROVIDER OF HYPOGLYCEMIC EVENT., Post-op glucose (Diabetic Use) oral gel Oral, PRN, Other, Bedside Glucose less than 70 mg/dL -If able to eat and does not have swallowing difficulties, Starting on Tue03/09/21 at 1112, Until Tue03/10/21 at 1410, If able to eat and is better able to swallow gel: For Bedside Glucose 54 - 69 mg/dL Give 15 grams of oral carbohydrates - 1 glucose gel (see MAR) If patient refuses glucose gel, then offer: - 4 ounces of fruit juice OR - 4 ounces non-diet soda OR - 8 ounces of fat-free milk For Bedside Glucose LESS than 54 mg/dL verify with a second Bedside Glucose (from a different site) - If pt is symptomatic, do not delay treatment If the patient is exhibiting symptoms which are not consistent with the results obtained, confirm the glucose with a STAT laboratory test. Give 30 grams of oral carbohydrates - 2 glucose gels (see MAR) If patient refuses glucose gel, then offer: - 8 ounces of fruit juice OR - 8 ounces non-diet soda OR - 16 ounces of fat-free milk Re-check and Re-treat blood glucose EVERY 10-25 minutes until blood glucose GREATER than or equal to 80 mg/dl. NOTIFY PROVIDER OF HYPOGLYCEMIC EVENT. 1 tube delivers 15 grams dextrose/carbohydrates, Post-op hydrALAZINE (Apresoline) injection 10 mg 10 mg, Intravenous, EVERY 4 HOURS PRN, If SBP is 160 mmHg or greater &/or DBP is 100 mmHg or greater, Starting on Tue03/09/21 at 1112, Until Tue03/10/21 at 1410, Post-op magnesium hydroxide (Milk Of Magnesia) suspension 30 mL 30 mL, Oral, DAILY PRN, Constipation, Starting on Tue03/11/21 at 0000, Until Tue03/10/21 at 1410, Shake well before using., Post-op magnesium sulfate 2 g in 50 mL bolus 2 g, at 25 mL/hr, Administer over 120 Minutes, Intravenous, PRN, Low magnesium, Starting on Tue03/09/21 at 1112, Until Tue03/10/21 at 1410, If magnesium level is 1.6 - 2 administer magnesium sulfate IV 2 g over 2 hours. Repeat magnesium level 4 hours after infusion is complete. Call physician prior to administration if SCr > 2 mg/dl and/or urinary output is < 30 ml/hr. magnesium sulfate 2 g in 50 mL bolus(Linked Group 3) 2 g, at 25 mL/hr, Administer over 120 Minutes, Intravenous, PRN, magnesium replacement, Starting on Tue03/09/21 at 1112, Until Tue03/10/21 at 1410, Administer a 4 g and 2 g bag for a total of 6 g. If magnesium level is < 1.0 administer magnesium sulfate IV 6 g over 4 hours. Repeat magnesium level 4 hours after infusion is complete. Call physician prior to administration if SCr > 2 mg/dl and/or urinary output is < 30 ml/hr. magnesium sulfate 4 g in 100 mL bolus 4 g, at 25 mL/hr, Administer over 240 Minutes, Intravenous, PRN, Low magnesium, Starting on Tue03/09/21 at 1112, Until Tue03/10/21 at 1410, If magnesium level is 1.1 - 1.5 administer magnesium sulfate IV 4 g over 4 hours. Repeat magnesium level 4 hours after infusion is complete. Call physician prior to administration if SCr > 2 mg/dl and/or urinary output is < 30 ml/hr. magnesium sulfate 4 g in 100 mL bolus(Linked Group 3) 4 g, at 25 mL/hr, Administer over 240 Minutes, Intravenous, PRN, magnesium replacement, Starting on Tue03/09/21 at 1112, Until Tue03/10/21 at 1410, Administer a 4 g and 2 g bag for a total of 6 g. If magnesium level is < 1.0 administer magnesium sulfate IV 6 g over 4 hours. Repeat magnesium level 4 hours after infusion is complete. Call physician prior to administration if SCr > 2 mg/dl and/or urinary output is < 30 ml/hr. 1159 ($ New Bag/Syringe - Provider: Lyn Mcgraw RN)1204 (Current Rate - Provider: Luisa Alcantara RN)1551 (Paused - Provider: Luisa Alcantara RN)1554 (Stopped - Provider: Luisa Alcantara RN)3039 (Stopped - Provider: Lyn Mcgraw RN) metoclopramide (Reglan) injection 10 mg(Linked Group 1) 10 mg, Intravenous, EVERY 6 HOURS PRN, Nausea/Vomiting, Starting on Tue03/10/21 at 1200, Until Tue03/10/21 at 1410, Inject undiluted IV slowly over 1 to 2 minutes., Post-op NaCl 0.9 % irrigation (CANCELED) PRN, Starting on Tue03/09/21 at 0900, Until Tue03/09/21 at 0941, Intra-op 0900 ($ Given - Provider: Rehan Mendoza MD) ondansetron (Zofran) injection 4 mg(Linked Group 2) 4 mg, Intravenous, EVERY 6 HOURS PRN, Nausea/Vomiting, Starting on Tue03/10/21 at 1500, Until Tue03/10/21 at 1410, Administer over 2 to 5 minutes., Post-op ondansetron (Zofran) injection 4 mg (COMPLETED) 4 mg, Intravenous, ONCE PRN, Nausea/Vomiting, 1 dose, Starting on Tue03/09/21 at 0946, Until Tue03/09/21 at 1018, First choice, PACU 1018 ($ Given - Provider: Brenda Taylor RN) oxyCODONE (Roxicodone) oral solution 5 mg 5 mg, Oral, EVERY 4 HOURS PRN, Moderate Pain, Starting on Tue03/10/21 at 0000, Until Tue03/10/21 at 1410, Post-op potassium chloride 40 mEq in 270 mL bolus 40 mEq, at 67.5 mL/hr, Administer over 4 Hours, Intravenous, PRN, potassium replacement, Starting on Tue03/09/21 at 1112, Until Tue03/10/21 at 1410, If potassium < 3.5 mEq/L administer 40 mEq potassium chloride IVPB. Recheck potassium 4 hours after infusion. If potassium < 2.5 mEq/L notify physician. potassium phosphate 15 mmol in dextrose 5 % 250 mL bolus 15 mmol, at 62.5 mL/hr, Administer over 4 Hours, Intravenous, PRN, serum phosphorus level is 2.0 - 2.5 mg/dL, Starting on Tue03/09/21 at 1112, Until Tue03/10/21 at 1410, If serum phosphorus level is 2.0 - 2.5 mg/dL administer potassium phosphate 15 mmol bolus IV over 4 hours. Call physician prior to administration if serum potassium is > 4.0 mEq/L potassium phosphate 20 mmol in d5w 250 mL bolus 20 mmol, at 62.5 mL/hr, Administer over 4 Hours, Intravenous, PRN, serum phosphorus level is 1.0 - 1.9 mg/dL, Starting on Tue03/09/21 at 1112, Until Tue03/10/21 at 1410, If serum phosphorus level is 1.0 - 1.9 mg/dL administer potassium phosphate 20 mmol bolus IV over 4 hours. Repeat serum phosphorus level 2 hours after infusion is complete. Call physician prior to administration if serum potassium is > 4.0 mEq/L 0851 ($ New Bag/Syri nge - Provider: Lyn Mcgraw, RITA)1230 (Stopped - Provider: Lyn Mcgraw RN) potassium phosphate 30 mmol in dextrose 5 % 260 mL bolus 30 mmol, at 43.33 mL/hr, Administer over 6 Hours, Intravenous, PRN, serum phosphorus level is < 1.0 mg/dL, Starting on Tue03/09/21 at 1112, Until Tue03/10/21 at 1410, If serum phosphorus level is < 1.0 mg/dL administer potassium phosphate 30 mmol bolus IV over 4 hours. Repeat serum phosphorus level 2 hours after infusion is complete. Call physician prior to administration if serum potassium is > 4.0 mEq/L promethazine (Phenergan) 25 mg in 0.9% NaCl IV 50 mL IVPB 25 mg, at 100 mL/hr, Intravenous, EVERY 4 HOURS PRN, nausea, Starting on Tue03/09/21 at 1112, Until Tue03/10/21 at 1410, Protect from light., Post-op Linked Groups Order Group 1: metoclopramide (Reglan) injection 10 mg (COMPLETED)Jump to med 10 mg, Intravenous, EVERY 6 HOURS, 4 doses, First dose on Tue03/09/21 at 1200, Last dose on Tue03/10/21 at 0600, Inject undiluted IV slowly over 1 to 2 minutes., Post-op Followed by metoclopramide (Reglan) injection 10 mgJump to med 10 mg, Intravenous, EVERY 6 HOURS PRN, Nausea/Vomiting, Starting on Tue03/10/21 at 1200, Until Tue03/10/21 at 1410, Inject undiluted IV slowly over 1 to 2 minutes., Post-op Group 2: ondansetron (Zofran) injection 4 mg (COMPLETED)Jump to med 4 mg, Intravenous, EVERY 6 HOURS, 4 doses, First dose on Tue03/09/21 at 1500, Last dose on Tue03/10/21 at 0900, Administer over 2 to 5 minutes., Post-op Followed by ondansetron (Zofran) injection 4 mgJump to med 4 mg, Intravenous, EVERY 6 HOURS PRN, Nausea/Vomiting, Starting on Tue03/10/21 at 1500, Until Tue03/10/21 at 1410, Administer over 2 to 5 minutes., Post-op Group 3: magnesium sulfate 4 g in 100 mL bolusJump to med 4 g, at 25 mL/hr, Administer over 240 Minutes, Intravenous, PRN, magnesium replacement, Starting on Tue03/09/21 at 1112, Until Tue03/10/21 at 1410, Administer a 4 g and 2 g bag for a total of 6 g. If magnesium level is < 1.0 administer magnesium sulfate IV 6 g over 4 hours. Repeat magnesium level 4 hours after infusion is complete. Call physician prior to administration if SCr > 2 mg/dl and/or urinary output is < 30 ml/hr. And magnesium sulfate 2 g in 50 mL bolusJump to med 2 g, at 25 mL/hr, Administer over 120 Minutes, Intravenous, PRN, magnesium replacement, Starting on Tue03/09/21 at 1112, Until Tue03/10/21 at 1410, Administer a 4 g and 2 g bag for a total of 6 g. If magnesium level is < 1.0 administer magnesium sulfate IV 6 g over 4 hours. Repeat magnesium level 4 hours after infusion is complete. Call physician prior to administration if SCr > 2 mg/dl and/or urinary output is < 30 ml/hr. documented in this encounter
--- OUTSIDE RECORDS SUMMARY | 2024-11-04 22:59 | XMS_ITS | Encounter Summary ---
Author Organization [facility] Address [address] [place] [address] Care Team Providers Care Marketing Technology Specialist Name Role Phone Unavailable Primary Care Provider Unavailabl e Encounter Details Date Type Department Care Team (Latest Contact Info) Description 12/30/2022 Travel Social History Tobacco Use Types Packs/Day [...] Sex Assigned at Female 11/25/2020 1:10 PM ACETYLENE TORCH BURNER Gender Identity Female 11/25/2020 1:10 PM ACETYLENE TORCH BURNER Sexual Orientation Straight 02/02/2021 4: 18 PM CDT COVID-19 Exposure Response Date Recorded In the last 10 days, have yo u been in contact with someone who was confirmed or suspected to have Coronavirus/COVID-19? 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
--- OUTSIDE RECORDS SUMMARY | 2024-11-04 22:59 | XMS_ITS | Encounter Summary ---
Author Organization [facility] Address [address] [place] [address] Care Team Providers Care Director Of Student Financial Services Name Role Phone Unavailable Primary Care Provider Unavailabl e Encounter Details Date Type Department Care Team (Late st Contact Info) Description 06/24/2021 1:30 PM CDT Video Visit [facility] [address] [place] [phone] Raisa Schmidt MD [address] [place] [address] S/P laparoscopic sleeve gastrectomy Social History Tobacco Use Types Packs/Day Years Used Date Smoking Tobacco: Former Cigarettes Q uit: 06/2020 Smokeless Tobacco: Never Alcohol Use Standard Drinks/Week Comments Not Currently 14 (1 standard drink = 0.6 oz pu re alcohol) Sex and Gender Information Value Date Recorded Sex Assigned at Female 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 Gender Identity Female 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 Sexual Orientation Straight 02/02/2021 4: 18 PM CDT documented as of this encounter Last Filed Vital Signs Vital Sign Reading Time Taken Comments Blood Pressure - - Pulse - - Temperature - - Respiratory Rate - - Oxygen Saturation - - Inhaled Oxygen Concentration - - Weight 88 kg (194 lb) 06/24/2021 1:21 PM CDT Height 160 cm (5' 3 ) 06/24/2021 1:21 PM CDT Body Mass Index 34.37 06/24/2021 1:21 PM CDT documented in this encounter Functional [...] as of this encounter Progress Notes * Sasha Pineda, BARBY/SIN - 06/24/2021 1:30 PM CDT MEDICAL NUTRITION THERAPY Weight Management Services Bariatric Surgery Follow-Up Session Number: Session III (3 months post op) Patient Verification & Telemedicine Based Consent I [...] verification and consent paragraph with the patient/surrogate. Today's visit was conducted virtually due to COVID-19 countermeasures. The patient has given verbalconsent to have today's visit conducted by this same means with treatment provided remotely. The patient verbally consents to the billing and collection practices of [facility]. Patient location: Home This encounter was performed using: audio Reason for not using video for visit: technical problems in using available video technology Total time spent on visit on date of encounter is: 13 minutes Session Date: 06/24/21 Patient: Maria Del Carmen Ray Date of : 1975 (45 year old) PCP Physician: Rose Marie Norton, PRODUCT MANAGEMENT SPECIALIST-KNOCKOUT WORKER Referring Physician: Karolina NUTRITION ASSESSMENT Primary Diagnoses/Co-morbidities: Obesity Secondary Diagnoses/Co-morbidities: Hypertension (GERD) Have you seen a dietitian?: Yes Pertinent Labs: no new to review Pertinent Medications: reviewed - Miralax Current V/M Supplements: CS BID, 600 mg calcium citrate BID Eating History Are you following a special diet at home?: Weight Reduction Are you having trouble following your diet?: No Are you having any trouble eating?: No Are you avoiding salty food, and not adding salt to your food?: No Are you limiting your liquids?: No How much liquids per day do you drink?: 64 oz/day Usual Number of Times You Eat Out Per Week : (1x/month) Who prepares the meals?: Self (significant other) Exercise Type of exercise?: Walking How many times do you exercise each week?: 4 How many minutes of exercise each time?: 30 Minutes Weight History Height: 5' 3 (160 cm) Initial Program Weight: 255.6#?BMI: 45.28 Current Weight: 194 lb (88 kg) Weight Method (Utilize Scales): Stated BMI (Calculated): 34.37 Has your weight changed since last visit?: Loss # (24#) Total Program Weight Loss: 61.6# Pt seen for nutrition f/u. Pt is now 3 months s/p VSG by Dr. Mendoza. Pt's weight is down 24# since last visit, down 61.6# since beginning program. Pt reports using 2 protein shakes most days as meals. Pt reports no intolerances/GI issues besides constipation. Pt c/o constipation - going 2x/week. Pt reports hard pebble like stool. Pt reports using Miralax prn. Pt is walking for exercise. Reviewed food recall and vitamins. 24 Hour Food Recall Breakfast - protein shake Lunch - 4 oz Fish-air fryer with broccoli or brussel sprouts -2-4 oz Dinner - protein shake - Ensure Max Snacks - none Beverages - 64+ oz water, Minute Maid Zero Sugar NUTRITION DIAGNOSIS Diagnosis: Overweight/obesity Related to: (hx of excessive caloric intake) As evidenced by: BMI of 34.37 and pt food recall. NUTRITION INTERVENTION Interventions: Motivational interviewing;Goal setting;Self-monitoring;Problem solving;Recommended modifications;Collaboration with other providers Reviewed healthy balance diet for weight loss using protein shakes. Reviewed the foster bariatric dietprinciples. Further instruction provided for phases of bariatric diet. Reinforced behavior changes for bariatric diet such as no straws and smaller plate. Explained importance of continued bariatric vitamin/mineral and protein supplementation. Pt v/u. Pt is ready to begin phase IV. Reviewed phase IV foods, portion sizes, max intake of 1 c/meal, limit CHOs to <1/2 c/day and reinforced introducing new foods one at a time to assess tolerance. Reinforced importance of 1-2 protein shakes daily as meals to meet nutrition needs and promote weight loss. Reinforced not eating and drinking together. Reinforced importance of MV BID or bariatric MV daily and 500 mg calcium citrate BID at least an hour apart from MV per ASMBS guidelines to prevent nutritional deficiencies. Reinforced physical activity of 150+ minutes weekly to promote weight loss and for cardiovascular benefits. Pt v/u. Recommended gradual incorporation of Benefiber to alleviate constipation and to increase fluids to 64+ oz/day. Recommended pt start with 1/4 tsp for 3 days, then 1/2 tsp for 3 days, then 3/4 tsp for 3 days, then 1 tsp etc as needed to alleviate constipation. Recommended walking as able to also helpalleviate. Stool softeners prn. External Barriers to Change: constipation NUTRITION MONITORING/EVALUATION Nutrient Needs: Goals: Nutrition Goal #1: 60+ g protein/day Nutrition Goal #2: Phase IV Nutrition Goal #3: 150-300 minutes physical activity weekly - mix of cardio and resistance Monitor/Evaluation: Monitoring and evaluation: Fluid/beverage intake;Food intake;Protein intake;Carbohydrate intake;Mineral/element intake;Food and nutrition knowledge/skills;Beliefs and attitudes;Adherence;Physical activity;Weight change;Body Mass index RD contact information provided. Pt encouraged to call RD with questions and/or concerns. Evaluation of Overall Compliance Potential: Comprehension: Often Demonstrated Receptivity: Often Demonstrated Adherence: Often Demonstrated Session Information Session Date: 06/24/21 Session Beginning Time: 132 Session ending time: 1334 Session total minutes: 13 Minutes Teaching Method: Explanation;Demonstration;Video;Teach Back Next visit: (6 months post op) Total MNT minutes this calendar year: 75/240 Nutritional Review ?? Cleared, additional RD visits required pre-op ___ ?? Cleared, no additional RD visits required pre-op ___ ?? Not cleared, additional RD visit(s) required pre-op ___ ?? Continue with post op RD visits per protocol _X__ Sasha iPneda RD/LDN documented in this encounter Plan of Treatment Upcoming Encounters Date Type Department Care Team (Late st Contact Info) Description 03/15/2025 10:00 AM CDT Office Visit [facility] [address] [place] [phone] Vianey Llanes, BURT-KNOCKOUT WORKER [address] [place] [address] 03/15/2025 10:30 AM CDT Clinical Support [facility] [address] [place] [phone] documented as of this encounter Visit Diagnoses Diagnosis S/P laparoscopic sleeve gastrectomy- Primary documented in this encounter
--- OUTSIDE RECORDS SUMMARY | 2024-11-04 22:59 | XMS_ITS | Encounter Summary ---
Author Organization [facility] Address [address] [place] [address] Care Team Providers Care Final Finisher Forging Dies Name Role Phone Unavailable Primary Care Provider Unavailabl e Reason for Visit * Auth/Cert Specialty Diagnoses / Procedures Referred By Veronica bonner Referred To Contact Diagnoses Morbid obesity (HCC) Morbid obesity [E66.01] Procedures LAPAROSCOPIC GASTRECTOMY (LONGITUDINAL/SLEEVE) Referral ID Status Reason Start Date Expiration Date Visits Re quested Visits Authorized [id number] 1 1 Encounter Details Date Type Department Care Team (Late st Contact Info) Description 03/09/2021 5:33 AM CDT - 03/10/2021 1:06 PM CDT Hospital Encounter [address] [address] Rehan Mendoza MD [address] [place] [phone] Surgery General Discharge Disposition: Home or Self Care Social History Tobacco Use Types Packs/Day Years Used Date Smoking Tobacco: Former Cigarettes Q uit: 06/2020 Smokeless Tobacco: Never Alcohol Use Standard Drinks/Week Comments Not Currently 14 (1 standard drink = 0.6 oz pu re alcohol) Sex and Gender Information Value Date Recorded Sex Assigned at Female 11/25/2020 1:10 PM SENIOR INTERACTIVE DEVELOPER Gender Identity Female 11/25/2020 1:10 PM SENIOR INTERACTIVE DEVELOPER Sexual Orientation Straight 02/02/2021 4: 18 PM CDT COVID-19 Exposure Response Date Recorded In the last month, have you been in contact with someone who was confirmed or suspected to have Coronavirus / COVID-19? No / Unsure 03/06/2021 6:03 AM CDT documented as of this encounter Last Filed Vital Signs Vital Sign Reading Time Taken Comments Blood Pressure 107/50 03/10/2021 3:08 AM CDT Pulse 78 03/10/2021 3:08 AM CDT Temperature 37.3 ??C (99.2 ??F) 03/10/2021 3:08 AM CD T Respiratory Rate 16 03/10/2021 7:15 AM CDT Oxygen Saturation 96% 03/10/2021 7:13 AM CDT Inhaled Oxygen Concentration 21% 03/09/2021 8 :00 PM CDT Weight 106.7 kg (235 lb 3.7 oz) [...] PRIMARY CARE PHYSICIAN : Rose Marie Norton APRN-RESEARCH PROGRAM ASSISTANT ADMISSION DIAGNOSIS: Refractory morbid obesity with BMI [...] blood sugar management. Pain management : D/C PANTOGRAPH II ENGRAVER, start PO. Respiratory management: Aggressive I/S, Resp [...] pain. Max of 6 tabs in 24hrs. [employer] [facility] capsule Take 1 (one) capsule by mouth once daily ursodiol 300 MG capsule Commonly known as: Actigall Take 1 (one) capsule by mouth 2 times daily for 90 days Do Not start until 1 week post op. Reasons:Post op laproscopic sleeve gastrectomy STOP taking these medications scopolamine 1 MG patch Commonly known as: Transderm-Scop vitamin D (ergocalciferol) 1.25 MG (63607 UT) capsule Commonly known as: Drisdol CONDITION ON DISCHARGE: Stable. CC: Rose Marie Norton APRN-RESEARCH PROGRAM ASSISTANT documented in this encounter Medications at Time [...] 24hrs. 12 tablet 02/27/2021 04/10/2021 Probiotic Product (Months Of Me) capsuleIndications: Bariatric surgery status Take 1 (one) [...] 8:25 AM CDT Pt screened by the capacity planner via record review. BNA score is [...] from the original note were not included. [facility] [place] [address] . . Date of encounter: 03/04/2021 Provider: Dr. Rehan Mendoza Patient: Maria Del Carmen Ray [facility]: [id number] Specialty: Bariatric Surgery Date of : 1975 [...] you have an unusual work schedule? no [place] Sleepiness Scale total points: 1 Past Medical [...] Gatherings with Friends and Family: ??? Attends Worship Services: ??? Active Member of Clubs or [...] Reasons: Gastroesophageal Reflux Disease ??? Probiotic Product (Months Of Me) capsule Take 1 (one) capsule by mouth [...] RBC, HGB, HCT, PLTCOUNT in the last 60115 hours. No results for input(s): SODIUM, POTASSIUM, CO2, BUN, CREATININE in the last 32137 hours. Invalid input(s): CLORIDE No results for input(s): GLUCOSE in the last 11035 hours. No results for input(s): AST, ALT in the last 00799 hours. No results for input(s): LDL, HDL, TRIG, TSH in the last 97550 hours. No results for input(s): HGBA1C in the last 75718 hours. No results for input(s): PT, PTT, INR, TSH in the last 84505 hours. No results for input(s): TSH in the last 04625 hours. No results for input(s): IRON in the last 10143 hours. No results for input(s): [id number] in the last 43246 hours. No results for input(s): VITAMINA in the last 38149 hours. No results for input(s): IRON in the last 56794 hours. No results for input(s): VITK1 in the last 78385 hours. No results for input(s): [id number] in the last 58905 hours. No results for input(s): ALPHATOCOPH in the last 69962 hours. No results for input(s): GAMMATOCOPH in the last 23367 hours. No results for input(s): MAGMGDL in the last 87501 hours. No results for input(s): PHOS in the last 67467 hours. Some lab results will be in [...] Laparoscopic Sleeve Gastrectomy Date: 03/09/2021 Place: At [facility] [place]. Patient should qualify for staying more than 2 midnights in hospital. Patient education, risk explained and consent : she meets the criteria as set by the [employer] that recommends bariatric surgeryon people [...] diet, andhaving very close follow-up with a marble cutter operator and me. In addition she must [...] has attended pre operative education class by learning program manager and the dietitian, but she will have additional education provided by the learning program manager and marble cutter operator at [facility]. Because of the significant changes in her eating habits she will have to see a marble cutter operator following surgery. I have informed her [...] to the billing and collection practices of [facility]. Patient location: Home This encounter was [...] in Epic. By assigning my name below, I Declan Rapp, attest that this documentation has been prepared [...] CONSULT NOTE Patient's Name: Maria Del Carmen Ray Date of : 1975 Date of Admission: [...] 24hrs. 12 tablet 0 ??? Probiotic Product (Months Of Me) capsule Take 1 (one) capsule by mouth [...] ??? vitamin D, ergocalciferol, (DRISDOL) 1.25 MG (92914 UT) capsule Take 1 capsule by mouth [...] HDL, LDLCALC, VLDL, CHOLHDLRATIO in the last 65141 hours. No results for input(s): TSH, Y0NXLOP, T4FREE, F2JLFTR in the last 36237 hours. No results for input(s): AMYLASE, LIPASE, FERRITIN, IRON in the last 64505 hours. Invalid input(s): SATURATION ASSESSMENT AND PLAN [...] Role: * Rehan Mendoza MD - Primary HEAD OPERATOR: Registered Nurse [employer] House Supervisor: Crista Ventura RN Scrub Person: Gudelia Vance LPN Picture Booker Orientee: Priya Hurtado RN PREOPERATIVE DIAGNOSIS: Refractory [...] area of the pylorus. The balloon measured 32-Welsh in diameter to act as a stentfor [...] Description 03/15/2025 10:00 AM CDT Office Visit [facility] [address] [place] [phone] Vianey Llanes, SEISMIC PROSPECTING OBSERVER-RESEARCH PROGRAM ASSISTANT [address] [place] [address] 03/15/2025 10:30 AM CDT Clinical Support [facility] [address] [place] [phone] documented as of this encounter Procedures Procedure [...] 03/09/2021 9:05 AM CDT Morbid obesity (HCC) [place] LAP SLEEVE GASTRECTOMY 03/09/2021 7:34 AM CDT [...] - 125 mg/dL 03/10/2021 11:[address] [facility] Specimen Type Arterial/C apillary 03/10/2021 11:[address] [facility] Blood BLOOD SPECIMEN / Unknown 03/10/2021 11:41 AM CDT 03/10/2021 11:45 AM CDT Rehan Mendoza MD LAB - POINT OF CARE ORDERABLES Performing Organization Address City/[facility] Co de Phone Number [facility] [address] * GLUCOSE - POINT OF CARE (03/10/2021 9:16 AM CDT) Glucose WB/POC 106 70 - 125 mg/dL 03/10/2021 9:[address] [facility] Specimen Type Arterial/C apillary 03/10/2021 9:[address] [facility] Blood BLOOD SPECIMEN / Unknown 03/10/2021 9:16 AM CDT 03/10/2021 9:17 AM CDT Rehan Mendoza MD LAB - POINT OF CARE ORDERABLES Performing Organization Address City/[facility]/ZIP Co de Phone Number [facility] [address] * GLUCOSE - POINT OF CARE (03/10/2021 4:37 AM CDT) [facility] Glucose WB/POC 84 70 - 125 mg/dL 03/10/2021 4:[address] [facility] Specimen Type Arterial/C apillary 03/10/2021 4:[address] [facility] Blood BLOOD SPECIMEN / Unknown 03/10/2021 4:37 AM CDT 03/10/2021 4:44 AM CDT Rehan Mendoza MD LAB - POINT OF CARE ORDERABLES Performing Organization Address City/[facility] Co de Phone Number [facility] [address] * PHOSPHORUS BLOOD (03/10/2021 4:13 AM CDT) [facility] Phosphorus 2.5 2.3 - 4.7 mg/dL 03/10/2021 4:[address] [facility] Blood BLOOD SPECIMEN / Unknown Lab Venipuncture / Unknown 03/10/2021 4:13 AM CDT 03/10/2021 4:33 AM CDT Rehan Mendoza MD LAB - CHEMISTRY KARLEE AVINA Performing Organization Address [facility] Co de Phone Number [facility] [address] [place] [address] * MAGNESIUM BLOOD (03/10/2021 4:13 AM CDT) [facility] Magnesium 2.1 1.6 - 2.6 mg/dL 03/10/2021 4:[address] [facility] Blood BLOOD SPECIMEN / Unknown Lab Venipuncture / Unknown 03/10/2021 4:13 AM CDT 03/10/2021 4:33 AM CDT Rehan Mendoza MD LAB - CHEMISTRY KARLEE AVINA Performing Organization Address [facility] Co de Phone Number [facility] [address] [place] [address] * (ABNORMAL) COMPREHENSIVE METABOLIC PANEL (03/10/2021 4:13 AM CDT) Glucose 101 70 - 125 mg/dL 03/10/2021 4:57 AM [facility] Sodium 139 136 - 145 mmol/L 03/10/2021 4:57 AM [facility] Potassium 3.5 3.4 - 4.5 mmol/L 03/10/2021 4:57 AM [facility] Chloride 106 98 - 107 mmol/L 03/10/2021 4:57 AM [facility] CO2 22 22 - 29 mmol/L 03/10/2021 4:57 AM [facility] Calcium 8.7 8.4 - 10.2 mg/dL 03/10/2021 4:57 AM [facility] Anion Gap 15 10 - 20 mmol/L 03/10/2021 4:57 AM [facility] BUN 8.7(L) 9.8 - 20.1 mg/dL 03/10/2021 4:57 AM [facility] Creatinine 0.91 0.57 - 1.11 mg/dL 03/10/2021 4:57 AM [facility] eGFR by MDRD >60 >60 mL/min/1.7 3m2 03/10/2021 4:57 AM [facility] eGFR by MDRD >60 >60 mL/min/1.7 3m2 03/10/2021 4:57 AM [facility] Alkaline Phosphatase 47 40 - 150 U/L 03/10/2021 4:57 AM [facility] ALT 54 5 - 55 U/L 03/10/2021 4:57 AM [facility] AST 52(H) 5 - 34 U/L 03/10/2021 4:57 AM [facility] Protein Total 6.2(L) 6.4 - 8.3 gm/dL 03/10/2021 4:57 AM [facility] Albumin 3.4(L) 3.5 - 5.0 gm/dL 03/10/2021 4:57 AM [facility] Globulin Total 2.8 2.6 - 4.0 gm/dL 03/10/2021 4:57 AM [facility] Albumin/Globulin Ratio 1.2 0.9 - 1.6 03/10/2021 4:57 AM [facility] Bilirubin Total 0.6 0.2 - 1.2 mg/dL 03/10/2021 4:[address] [facility] Blood BLOOD SPECIMEN / Unknown Lab Venipuncture / Unknown 03/10/2021 4:13 AM CDT 03/10/2021 4:33 AM CDT Rehan Mendoza MD LAB - CHEMISTRY KARLEE AVINA [facility] Organization Address City/State/[facility] Co de Phone Number [facility] [address] * (ABNORMAL) CBC W AUTO DIFFERENTIAL (03/10/2021 4:13 AM CDT) WBC 10.7(H) 4.0 - 10.0 x10E9/L 03/10/2021 4:[address] [facility] RBC 4.37 3.93 - 5.22 x10E12/L 03/10/2021 4:[address] [facility] Hemoglobin 13.3 11.2 - 15.7 gm/dL 03/10/2021 4:[address] [facility] Hematocrit 39.7 34.1 - 44.9 % 03/10/2021 4:[address] [facility] MCV 90.8 78.0 - 100.0 fl 03/10/2021 4:[address] [facility] MCH 30.4 25.6 - 34.0 pg 03/10/2021 4:[address] [facility] MCHC 33.5 32.3 - 36.5 gm/dL 03/10/2021 4:[address] [facility] RDW 13.3 11.6 - 14.4 % 03/10/2021 4:[address] [facility] MPV 10.1 9.4 - 12.4 fl 03/10/2021 4:[address] [facility] Platelet Count 243 163 - 369 x10E9/L 03/10/2021 4:[address] [facility] Neutrophils % 74.0 40.0 - 75.0 % 03/10/2021 4:[address] [facility] Lymphocytes % 19.2(L) 19.3 - 53.1 % 03/10/2021 4:[address] [facility] Monocytes % 6.6 4.7 - 12.5 % 03/10/2021 4:[address] [facility] Eosinophils % 0.0(L) 0.7 - 7.0 % 03/10/2021 4:[address] [facility] Basophils % 0.1 0.1 - 1.2 % 03/10/2021 4:[address] [facility] Immature Granulocytes 0.1 0 - 0.5 % 03/10/2021 4:[address] [facility] Neutrophil Absolute 7.88(H) 1.56 - 6.13 x10E9/L 03/10/2021 4:[address] [facility] Lymphocytes Absolute 2.05 1.18 - 3.74 x10E9/L 03/10/2021 4:[address] [facility] Monocytes Absolute 0.70 0.24 - 0.86 x10E9/L 03/10/2021 4:[address] [facility] Eosinophils Absolute 0.00(L) 0.04 - 0.54 x10E9/L 03/10/2021 4:[address] [facility] Basophils Absolute 0.01 0.01 - 0.08 x10E9/L 03/10/2021 4:[address] [facility] Immature Granulocytes Absolute 0.01 0 - 0.03 x10E9/L 03/10/2021 4:[address] [facility] nRBC Auto 0 <=0 /100 WBC 03/10/2021 4:[address] [facility] nRBC Absolute 0.00 <=0 x10E9/L 03/10/2021 4:[address] [facility] Blood BLOOD SPECIMEN / Unknown Lab Venipuncture / Unknown 03/10/2021 4:13 AM CDT 03/10/2021 4:33 AM CDT Rehan Mendoza MD LAB - HEMATOLOGY ORD ERABLES Performing Organization Address City/State/[facility] Co de Phone Number [facility] [address] * GLUCOSE - POINT OF CARE (03/10/2021 12:42 AM CDT) Pathologist [facility] Glucose WB/POC 79 70 - 125 mg/dL 03/10/2021 12:[address] [facility] Specimen Type Arterial/C apillary 03/10/2021 12:[address] [facility] Blood BLOOD SPECIMEN / Unknown 03/10/2021 12:42 AM CDT 03/10/2021 12:49 AM CDT Rehan Mendoza MD LAB - POINT OF CARE ORDERABLES Performing Organization Address [facility]/ZIP Co de Phone Number [facility] [address] * GLUCOSE - POINT OF CARE (03/09/2021 8:50 PM CDT) Glucose WB/POC 86 70 - 125 mg/dL 03/09/2021 9:[address] [facility] Specimen Type Arterial/C apillary 03/09/2021 9:[address] [facility] Blood BLOOD SPECIMEN / Unknown 03/09/2021 8:50 PM CDT 03/09/2021 9:04 PM CDT Rehan Mendoza MD LAB - POINT OF CARE ORDERABLES Performing Organization Address [facility] Co de Phone Number [facility] [address] [place] [address] * MAGNESIUM BLOOD (03/09/2021 7:52 PM CDT) Magnesium 2.4 1.6 - 2.6 mg/dL 03/09/2021 8:[address] [facility] Blood BLOOD SPECIMEN / Unknown Lab Venipuncture / Unknown 03/09/2021 7:52 PM CDT 03/09/2021 7:56 PM CDT Rehan Mendoza MD LAB - CHEMISTRY ORDE FABRICE Performing Organization Address City/[facility] Co de Phone Number [facility] [address] * GLUCOSE - POINT OF CARE (03/09/2021 4:20 PM CDT) Glucose WB/POC 98 70 - 125 mg/dL 03/09/2021 4:[address] [facility] Specimen Type Arterial/C apillary 03/09/2021 4:[address] [facility] Blood BLOOD SPECIMEN / Unknown 03/09/2021 4:20 PM CDT 03/09/2021 4:29 PM CDT Rehan Mendoza MD LAB - POINT OF CARE ORDERABLES Performing Organization Address City/[facility]/ZIP Co de Phone Number [facility] [address] * GLUCOSE - POINT OF CARE (03/09/2021 12:43 PM CDT) Glucose WB/POC 103 70 - 125 mg/dL 03/09/2021 12:[address] [facility] Specimen Type Arterial/C apillary 03/09/2021 12:[address] [facility] Blood BLOOD SPECIMEN / Unknown 03/09/2021 12:43 PM CDT 03/09/2021 12:44 PM CDT Rehan Mendoza MD LAB - POINT OF CARE ORDERABLES Performing Organization Address [facility] Co de Phone Number [facility] [address] [place] [address] * (ABNORMAL) GLUCOSE - POINT OF CARE (03/09/2021 11:54 AM CDT) Glucose WB/POC 66(L) 70 - 125 mg/dL 03/09/2021 12:[address] [facility] Specimen Type Arterial/C apillary 03/09/2021 12:[address] [facility] Blood BLOOD SPECIMEN / Unknown 03/09/2021 11:54 AM CDT 03/09/2021 12:07 PM CDT Rehan Mendoza MD LAB - POINT OF CARE ORDERABLES Performing Organization Address City/[facility]/ZIP Co de Phone Number [facility] [address] [place] [address] * PHOSPHORUS BLOOD (03/09/2021 10:05 AM CDT) Phosphorus 3.8 2.3 - 4.7 mg/dL 03/09/2021 10:[address] [facility] Blood BLOOD SPECIMEN / Unknown Lab Venipuncture / Unknown 03/09/2021 10:05 AM CDT 03/09/2021 10:18 AM CDT Rehan Mendoza MD LAB - CHEMISTRY ORDEfren AVINA Performing Organization Address [facility] de Phone Number [facility] [address] * (ABNORMAL) MAGNESIUM BLOOD (03/09/2021 10:05 AM CDT) Magnesium 1.5(L) 1.6 - 2.6 mg/dL 03/09/2021 10:[address] [facility] Blood BLOOD SPECIMEN / Unknown Lab Venipuncture / Unknown 03/09/2021 10:05 AM CDT 03/09/2021 10:18 AM CDT Rehan Mendoza MD LAB - CHEMISTRY ORDEfren AVINA Performing Organization Address [facility] de Phone Number [facility] [address] [place] [address] * (ABNORMAL) COMPREHENSIVE METABOLIC PANEL (03/09/2021 10:05 AM CDT) Glucose 107 70 - 125 mg/dL 03/09/2021 10:[address] [facility] Sodium 139 136 - 145 mmol/L 03/09/2021 10:[address] [facility] Potassium 3.8 3.4 - 4.5 mmol/L 03/09/2021 10:[address] [facility] Chloride 107 98 - 107 mmol/L 03/09/2021 10:[address] [facility] CO2 22 22 - 29 mmol/L 03/09/2021 10:[address] [facility] Calcium 8.3(L) 8.4 - 10.2 mg/dL 03/09/2021 10:[address] [facility] Anion Gap 14 10 - 20 mmol/L 03/09/2021 10:[address] [facility] BUN 11.7 9.8 - 20.1 mg/dL 03/09/2021 10:[address] [facility] Creatinine 0.96 0.57 - 1.11 mg/dL 03/09/2021 10:[address] [facility] eGFR by MDRD >60 >60 mL/min/1.7 3m2 03/09/2021 10:[address] [facility] eGFR by MDRD >60 >60 mL/min/1.7 3m2 03/09/2021 10:[address] [facility] Alkaline Phosphatase 45 40 - 150 U/L 03/09/2021 10:[address] [facility] ALT 50 5 - 55 U/L 03/09/2021 10:[address] [facility] AST 42(H) 5 - 34 U/L 03/09/2021 10:[address] [facility] Protein Total 5.9(L) 6.4 - 8.3 gm/dL 03/09/2021 10:[address] [facility] Albumin 3.4(L) 3.5 - 5.0 gm/dL 03/09/2021 10:[address] [facility] Globulin Total 2.5(L) 2.6 - 4.0 gm/dL 03/09/2021 10:[address] [facility] Albumin/Globulin Ratio 1.4 0.9 - 1.6 03/09/2021 10:[address] [facility] Bilirubin Total 0.6 0.2 - 1.2 mg/dL 03/09/2021 10:[address] [facility] Blood BLOOD SPECIMEN / Unknown Lab Venipuncture / Unknown 03/09/2021 10:05 AM CDT 03/09/2021 10:18 AM CDT Rehan Mendoza MD LAB - CHEMISTRY KARLEE AVINA [facility] Organization Address City/State/[facility] Co de Phone Number [facility] [address] * (ABNORMAL) CBC W AUTO DIFFERENTIAL (03/09/2021 10:05 AM CDT) [facility] WBC 9.7 4.0 - 10.0 x10E9/L 03/09/2021 10:[address] [facility] RBC 4.19 3.93 - 5.22 x10E12/L 03/09/2021 10:22 AM [facility] Hemoglobin 12.9 11.2 - 15.7 gm/dL 03/09/2021 10:22 AM [facility] Hematocrit 38.6 34.1 - 44.9 % 03/09/2021 10:22 AM [facility] MCV 92.1 78.0 - 100.0 fl 03/09/2021 10:22 AM [facility] MCH 30.8 25.6 - 34.0 pg 03/09/2021 10:22 AM [facility] MCHC 33.4 32.3 - 36.5 gm/dL 03/09/2021 10:22 AM [facility] RDW 13.6 11.6 - 14.4 % 03/09/2021 10:22 AM [facility] MPV 10.0 9.4 - 12.4 fl 03/09/2021 10:22 AM [facility] Platelet Count 220 163 - 369 x10E9/L 03/09/2021 10:22 AM [facility] Neutrophils % 85.4(H) 40.0 - 75.0 % 03/09/2021 10:22 AM [facility] Lymphocytes % 11.8(L) 19.3 - 53.1 % 03/09/2021 10:22 AM [facility] Monocytes % 2.4(L) 4.7 - 12.5 % 03/09/2021 10:22 AM [facility] Eosinophils % 0.2(L) 0.7 - 7.0 % 03/09/2021 10:22 AM [facility] Basophils % 0.1 0.1 - 1.2 % 03/09/2021 10:22 AM [facility] Immature Granulocytes 0.1 0 - 0.5 % 03/09/2021 10:22 AM [facility] Neutrophil Absolute 8.29(H) 1.56 - 6.13 x10E9/L 03/09/2021 10:22 AM [facility] Lymphocytes Absolute 1.14(L) 1.18 - 3.74 x10E9/L 03/09/2021 10:22 AM [facility] Monocytes Absolute 0.23(L) 0.24 - 0.86 x10E9/L 03/09/2021 10:[address] [facility] Eosinophils Absolute 0.02(L) 0.04 - 0.54 x10E9/L 03/09/2021 10:[address] [facility] Basophils Absolute 0.01 0.01 - 0.08 x10E9/L 03/09/2021 10:[address] [facility] Immature Granulocytes Absolute 0.01 0 - 0.03 x10E9/L 03/09/2021 10:[address] [facility] nRBC Auto 0 <=0 /100 WBC 03/09/2021 10:[address] [facility] nRBC Absolute 0.00 <=0 x10E9/L 03/09/2021 10:[address] [facility] Blood BLOOD SPECIMEN / Unknown Lab Venipuncture / Unknown 03/09/2021 10:05 AM CDT 03/09/2021 10:18 AM CDT Rehan Mendoza MD LAB - HEMATOLOGY ORD ERABLES Performing Organization Address [facility] Co de Phone Number [facility] [address] * GROSS + MICRO EXAM (ILL) (03/09/2021 9:05 AM CDT) Case Report Surgical Pathology Report ? Case: [id number] ? Authorizing Provider: ??Rehan Mendoza MD ?Collected: ? 03/09/2021 09:05 AM ? Ordering Location: ? [facility] ?Received: ?03/09/2021 02:06 PM ? Pathologist: ? Monica Martinez MD ? Specimen: ?Stomach Resect Sub, stomach remnant - sleeve gastrectomy ? 03/11/2021 12:43 PM [facility] Final Diagnosis Stomach remnant, sleeve gastrectomy: - No significant histologic abnormality. 03/11/2021 12:43 PM [facility] Microscopic Description and Comment Microscopic examination is performed and substantiates the above diagnosis. 03/11/2021 12:43 PM [facility] Clinical History Morbid obesity. 03/11/2021 12:43 PM [facility] Gross Description Received in formalin labeled Maria Del Carmen Ray, stomach remnant sleeve gastrectomy, stomach resec sub is a stapled pink gastric resection measuring 28.0 x 4.2 x3.0 cm. The specimen is received open 7 cm from one margin. The specimen is opened longitudinally to reveal unremarkable rugal folds without masses or lesions. Regulator Inspector sections are submitted in A1-A2. LS/scs 03/11/2021 12:43 PM [facility] Disclaimer The performance characteristics of all immunohistochemical and indirect immunofluorescence stains (if any) cited in this report were determined by the Histopathology Laboratory of [facility]. Some of these tests were developed [...] H&E slides and special stains prepared at [facility], [place]. [address] (CLIA# [id number]) unless otherwise specified. This case was interpreted by the [facility] Department of Pathology. When applicable, select reference laboratory testing is performed at the [facility], [address] [place] [address]. 03/11/2021 12:[address] [facility] Embedded Images 03/11/2021 12:[address] [facility] Pathology/Cytolo gy SPECIMEN FROM STOMACH OBTAINED BY PARTIAL GASTRECTOMY / Unknown 03/09/2021 9:05 AM CDT 03/09/2021 2:06 PM CDT Comment:Pre-op diagnosis: Morbid obesity [E66.01] Rehan Mendoza MD LAB - PATHOLOGY/CYTO LOGY ORDERABLES 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 $ New Bag/Syringe 03/09/2021 8:35 PM CDT 1,000 mg 400 mL/hr $ New Bag/Syringe 03/09/2021 1:47 PM CDT 1,000 mg 400 mL /hr acetaminophen (Tylenol) solution 1,000 mg 1,000 mg, Oral, EVERY 6 HOURS, 20 doses, First dose on Tu03/10/21 at 0200, Last dose on Tue03/14/21 at 2000, Not to be given along with the IV tylenol. To be started after 2 doses of IV tylenol., Post-op $ Given 03/10/2021 8:52 AM CDT 1,000 mg $ Given 03/10/2021 3:15 AM CDT 1,000 mg ceFAZolin (Ancef) 2,000 mg in 50 ml IVPB 2,000 mg (2 g), at 100 mL/hr, Intravenous, ONCE, 1 dose, On Tue03/09/21 at 1300, Indication for anti-infective therapy: Surgical prophylaxis $ New Bag/Syringe 03/09/2021 1:47 PM CDT 2,000 mg 100 mL/hr celecoxib (CeleBREX) capsule 400 mg 400 mg, Oral, PRE-OP ONCE, 1 dose, On Tue03/09/21 at 0600, Pre-op $ Given 03/09/2021 6:12 AM CDT 400 mg dextrose IV 12.5-25 g 12.5-25 g (25-50 [...] Given 03/09/2021 12:10 PM CDT 25 g famotidine (Pepcid) injection 20 mg 20 mg, [...] at least 2 minutes., Pre-op $ Given 03/09/2021 7:15 AM CDT 20 mg fentaNYL (PF) (Sublimaze) injection 37.5 mcg 37.5 mcg, Intravenous, EVERY 10 MIN PRN, Moderate Pain, 4 doses, Starting on Tue03/09/21 at 0946, Until Tue03/09/21 at 1112, Maximum total of 4 doses. If patient reaches max total dose, please consult anesthesiologist prior to further administration of pain meds. Hold pain meds if there are signs of hypoventilation., PACU $ Given 03/09/2021 10:21 AM CDT 37.5 mcg gabapentin (Neurontin) capsule 300 mg 300 mg, Oral, ONCE, 1 dose, On Tue03/09/21 at 0600, Pre-op $ Given 03/09/2021 6:12 AM CDT 300 mg heparin injection 5,000 Units 5,000 Units, Subcutaneous, PRE-OP ONCE, 1 dose, On Tue03/09/21 at 0600, Pre-op $ Given 03/09/2021 6:05 AM CDT 5,000 Units Abd Left Lower Quadrant heparin injection 5,000 Units 5,000 Units, Subcutaneous, EVERY 8 HOURS, First dose on Tue03/10/21 at 0900, Until Discontinued, Post-op $ Given 03/10/2021 8:52 AM CDT 5,000 Units Abdominal Tissue lactated ringers infusion at 150 mL/hr, Intravenous, CONTINUOUS, Starting on Tue03/09/21 at 1115, Until Tue03/10/21 at 1114, Post-op Current Rate 03/10/2021 6:02 AM CDT 150 mL/hr Current Rate 03/10/2021 4:54 AM CDT 150 mL/hr $ New Bag/Syringe 03/10/2021 4:49 AM CDT 150 mL /hr magnesium sulfate 2 g in 50 mL [...] AM CDT 4 g 25 mL /hr metoclopramide (Reglan) injection 10 mg 10 mg, Intravenous, PRE-OP ONCE, 1 dose, On Tue03/09/21 at 0715, Pre-op $ Given 03/09/2021 7:20 AM CDT 10 mg metoclopramide (Reglan) injection 10 mg 10 mg, Intravenous, EVERY 6 HOURS, 4 doses, First dose on Tue03/09/21 at 1200, Last dose on Tue03/10/21 at 0600, Inject undiluted IV slowly over 1 to 2 minutes., Post-op $ Given 03/10/2021 6:05 AM CDT 10 mg $ Given 03/10/2021 12:40 AM CDT 10 mg $ Given 03/09/2021 5:51 PM CDT 10 mg metoprolol (Lopressor) injection 5 mg 5 mg, Intravenous, EVERY 4 HOURS, 6 doses, First dose on Tue03/09/21 at 1200, Last dose on Tue03/10/21 at 0800, Hold if HR is less than 60 bpm or SBP is less than 110 mmHg, Post-op $ Given 03/10/2021 8:46 AM CDT 5 mg $ Given 03/09/2021 8:54 PM CDT 5 mg $ Given 03/09/2021 4:23 PM CDT 5 mg ondansetron (Zofran) injection 4 mg 4 mg, Intravenous, PRE-OP ONCE, 1 dose, On Tue03/09/21 at 0715, Pre-op $ Given 03/09/2021 7:18 AM CDT 4 mg ondansetron (Zofran) injection 4 mg 4 mg, Intravenous, EVERY 6 HOURS, 4 doses, First dose on Tue03/09/21 at 1500, Last dose on Tue03/10/21 at 0900, Administer over 2 to 5 minutes., Post-op $ Given 03/10/2021 8:45 AM CDT 4 mg $ Given 03/10/2021 4:41 AM CDT 4 mg $ Given 03/09/2021 10:56 PM CDT 4 mg ondansetron (Zofran) injection 4 mg 4 mg, Intravenous, ONCE PRN, Nausea/Vomiting, 1 dose, Starting on Tue03/09/21 at 0946, Until Tue03/09/21 at 1018, First choice, PACU $ Given 03/09/2021 10:18 AM CDT 4 mg pantoprazole (Protonix) injection 80 mg 80 mg, [...] min., Post-op $ Given 03/10/2021 8:45 AM CD T 80 mg $ Given 03/09/2021 9:00 PM CDT 80 mg $ Given 03/09/2021 9:53 AM CDT 80 mg Cash [facility] capsule 1 capsule 1 capsule, Oral, DAILY, [...] 8:51 AM CDT 20 mmol 62.5 mL/hr sodium citrate-citric acid 500-334 mg/5 mL oral solution 30 mL, Oral, PRE-OP ONCE, 1 dose, On Tue03/09/21 at 0715, Dilute in 1-3 ounces of water before taking; follow with additional water if desired. SHAKE WELL BEFORE USING, Pre-op $ Given 03/09/2021 7:23 AM CDT 30 mL thiamine (Vitamin B-1) 100 mg in 0.9% [...] 1 dose, On Tue03/09/21 at 0600, See Magiqedex for renal dosing guidelines. 0753 ($ Given - Provider: David Burger APRN-LAUNDRY CLERK) acetaminophen (Ofirmev) injection 1,000 mg (COMPLETED) 1,000 mg, at 400 mL/hr, Intravenous, EVERY 6 HOURS, 2 doses, First dose on Tue03/09/21 at 1400, Last dose on Tue03/09/21 at 2000, See Magiqedex for renal dosing guidelines. 1347 ($ New Bag/Syringe - Provider: Lyn Mcgraw RN)1402 (Stopped - Provider: Lyn Mcgraw RN)2034 ($ New Bag/Syringe - Provider: Luisa Alcantara RN)2049 (Stopped - Provider: Luisa Alcantara RN) acetaminophen [...] Per Administration Instructions)1142 (Not Administered - Provider: Lyn Mcgraw RN - Reason: Per Administration Instructions) [...] Alcantara, RITA)0605 ($ Given - Provider: Luisa Alcantara RN) metoprolol (Lopressor) injection 5 mg () 5 mg, Intravenous, EVERY 4 HOURS, 6 doses, First dose on Tue03/09/21 at 1200, Last dose on Tue03/10/21 at 0800, Hold if HR is less than 60 bpm or SBP is less than 110 mmHg, Post-op 1204 ($ Given - Provider: Lyn Mcgraw RN)1623 ($ Given - Provider: Lyn Mcgraw RN)2054 ($ Given - Provider: Luisa Alcantara RN) 0046 (Not Administered - Provider: Luisa Alcantara [...] Mcgraw RN)2256 ($ Given - Provider: Luisa Alcantara, RITA) 0441 ($ Given - Provider: Luisa Alcantara, RITA)0845 ($ Given - Provider: Lyn Mcgraw, RITA) pantoprazole (Protonix) injection 80 mg 80 mg, [...] RITA)2100 ($ Given - Provider: Luisa Alcantara, RITA) 0845 ($ Given - Provider: Lyn Mcgraw RN) [employer] capsule 1 capsule 1 capsule, Oral, DAILY, [...] 0842 ($ New Bag/Syringe - Provider: Lyn Mcgraw RN)0912 (Stopped - Provider: Lyn Mcgraw RN) Continuous [...] Provider: EDISON Lloyd)1000 (Stopped - Provider: Brenda Taylor RN) lactated ringers infusion (CANCELED) at 75 [...] RN)2017 (Current Rate - Provider: Luisa Alcantara RN)2027 (Stopped - Provider: Luisa Alcantara RN)2028 ($ [...] at 0813, Until Tue03/09/21 at 0941, Intra-op 08 ($ Given - Provider: Rehan Mendoza MD) [...] 1159 ($ New Bag/Syringe - Provider: Lyn Mcgraw, RN)1204 (Current Rate - Provider: Luisa Alcantara, RITA)1551 (Paused - Provider: Luisa Alcantara, RITA)1554 (Stopped - Provider: Luisa Alcantara, RN)1559 (Stopped - Provider: Lyn Mcgraw, RITA) metoclopramide (Reglan) injection 10 mg(Linked Group 1) [...]
--- OUTSIDE RECORDS SUMMARY | 2024-11-04 22:59 | XMS_ITS | Encounter Summary ---
Author Organization [facility] Address [address] [place] [address] Care Team Providers Care Pin Drafting Machine Tender Name Role Phone Unavailable Primary Care Provider Unavailabl e Encounter Details Date Type Department Care Team (Latest Contact Info) Description 12/30/2022 10:15 AM BAND TEACHER - 12/30/2022 11:59 PM BAND TEACHER Hospital Encounter [facility] [address] [place] [address] Raisa Schmidt MD [address] [place] [address] Discharge Disposition: Home or Self Care Social [...] Sex Assigned at Female 11/25/2020 1:10 PM BAND TEACHER Gender Identity Female 11/25/2020 1:10 PM BAND TEACHER Sexual Orientation Straight 02/02/2021 4: 18 PM CDT COVID-19 Exposure Response Date Recorded In the last 10 days, have yo u been in contact with someone who was confirmed or suspected to have Coronavirus/COVID-19? No / Unsure 12/30/2022 10:11 AM BAND TEACHER documented as of this encounter Functional Status [...] Multiple Vitamins-Minerals (CENTRUM SILVER PO) nystatin (MYCOSTATIN) 358036 UNIT/GM cream Apply to affected area 2 times daily 15 g 2 03/10/2022 Ferrous Sulfate (IRON PO) 03/16/2024 hydroCHLOROthiazide (Hydrodiuril) 25 MG tablet 11/29/2022 01/13/2023 documented as of this encounter Plan of Treatment Upcoming Encounters Date Type Department Care Team (Late st Contact Info) Description 03/15/2025 10:00 AM CDT Office Visit [facility] [address] [place] [phone] Vianey Llanes, CARPENTER ASSISTANT-MUTUEL DEPARTMENT MANAGER [address] [place] [address] 03/15/2025 10:30 AM CDT Clinical Support [facility] [address] [place] [phone] documented as of this encounter Visit Diagnoses Not on filedocumented in this encounter
--- OUTSIDE RECORDS SUMMARY | 2024-11-04 22:59 | XMS_ITS | Encounter Summary ---
Author Organization [facility] Address [address] [place] [address] Care Team Providers Care Facialist Name Role Phone Unavailable Primary Care Provider Unavailabl e Reason for Visit * Auth/Cert (Routine) Specialty Diagnoses / Procedures Referred By Veronica bonner Referred To Contact Diagnoses Gastroesophageal reflux disease, unspecified whether esophagitis present S/P bariatric surgery Gastroesophageal reflux disease, unspecified whether esophagitis present [K21.9] S/P bariatric surgery [Z98.84] Procedures ESOPHAGOGASTRODUODENOSCOPY (EGD) BIOPSY Referral ID Status Reason Start Date Expiration Date Visits Re quested Visits Authorized [id number] 1 1 Encounter Details Date Type Department Care Team (Late st Contact Info) Description 12/08/2022 9:08 AM FACILITY ENGINEER Anesthesia Event [facility] [address] [place] [address] Roverto Novak MD [address] [place] [address] Olivia Cuevas APRN-SANTOS [address] [place] [address] Anesthesia Record Procedure Summary Procedure Name Responsible Anesthesiologist Anesthesia Start Time Anesthesia Stop Time ESOPHAGOGASTRODUODENOSCOPY w ith BIOPSY (Mouth) Roverto Novak MD 12/08/22 0908 12/08/22 0924 Events Date Time Event Comment 12/08/2022 0908 An Start 0908 PT Reassessment 0909 An Start Data 0912 Timeout Anesthesia part icipated in timeout at the time documented in the record by nursing. 0912 Proc Start 0913 Electnc Sig This record is electronically signed by the providers listed under staff. 0921 an stop data 0924 Handoff 0924 An Stop Meds Name Total lidocaine (XYLOCAINE) 2% injection 50 mg propofol 200mg/20mL injection 200 mg lactated ringers infusion 0 mL * Agents Name Exp. N2O O2 * Blood No blood administrations on file. Lines, Drains, and Airways Type Details Placement Removal Peripheral IV Date: 12/08/22; Time: 07; Orientation: Posterior, Right; Placed By: Gary Patton RN; Tolerance: Well 12/08/22 0740 by Annika Patton RN 12/08/22 1012 by Elizabeth Vogel RN Procedural Site (Incision) 12/08/22; 0913; Mouth; Endoscopic; EGD; 12/08/22; 1614 12/08/22 0913 by Smiley Rodriguez RN 12/08/22 1614 by Generic, Auto Release documented in this encounter Social [...] Sex Assigned at Female 11/25/2020 1:10 PM FACILITY ENGINEER Gender Identity Female 11/25/2020 1:10 PM FACILITY ENGINEER Sexual Orientation Straight 02/02/2021 4: 18 PM [...] Progress Notes * Roverto Novak MD - 12/08/2022 1:04 PM CST ANESTHESIA POSTOP EVALUATION NOTE Procedure: ESOPHAGOGASTRODUODENOSCOPY with BIOPSY (Mouth) Maria Del Carmen Ray is a 47 year old female Patient Vitals for the past 6 hrs: BP Temp Pulse Resp SpO2 Pain Rating Score #1 Pain Scale/Observation Pulse - (SPO2/Cuff) 12/08/22 0737 139/87 98.2 ??F (36.8 ??C) 68 16 100 % 0 N -- 12/08/22 0922 -- -- -- -- -- 0 -- -- 12/08/22 0925 118/71 97.6 ??F (36.4 ??C) 72 12 98 % -- -- 71 bpm 12/08/22 0930 114/79 -- 60 16 95 % 0 N 62 bpm 12/08/22 0935 121/77 -- 54 13 98 % -- -- 55 bpm 12/08/22 0936 -- -- -- -- -- 0 -- -- 12/08/22 0940 131/84 -- 60 18 90 % -- -- 59 bpm 12/08/22 0950 132/86 97.9 ??F (36.6 ??C) 51 16 100 % 0 N -- 12/08/22 0957 138/94 -- 57 -- 100 % -- -- -- Anesthesia Type: MAC Pre-op Diagnosis Codes: * Gastroesophageal reflux disease, unspecified whether esophagitis present [K21.9] * S/P bariatric surgery [Z98.84] Mental Status: awake, alert and oriented Neuro Status: No numbness, tingling or visual disturbances Respiratory Function: natural Cardiac Function: stable Postop Pain: adequate Postop Hydration: adequate Postop Nausea: none Assessment: no apparent anesthetic complications, patient tolerated procedure well and no evidence of recall Patient Disposition: Release from Anesthesia Care NOTABLE EVENTS: No notable events documented. LITY ENGINEER * Roverto Novak MD - 12/08/2022 7:24 AM CST ANESTHESIA PREOPERATIVE EVALUATION NOTE Procedure: ESOPHAGOGASTRODUODENOSCOPY with BIOPSY Vitals: No data found. ANESTHESIA PRE-EVALUATION NOTE History of Present Illness: GERD, gastric ulcer patient was here on 02/02/21 for EGD, tolerated well Physical Exam: Orientation X3 Airway/Mallampati Score: II Mouth Opening Distance: 3 fingerwidths Neck ROM: full TM Distance: > 3 FB Teeth: normal Heart: normal - S1 S2 and regular rate rhythm Lungs: normal and clear to ausculation bilaterally Abdomen Exam: soft and obese Review of Systems: History of anesthetic complications: No GERD: Yes, well controlled Poor Exercise Tolerance: No Recent Chest Pain: Yes (most likely secondary to anxiety/stress, was seen by cardiology for clearance for gastric bypass and clearance was granted. ) Shortness of Breath: No AICD/Pacemaker: No Renal Disease: No Diagnostic Tests: Lab(s) reviewed: Yes. ANESTHESIA PLAN ASA Score: 3 NPO Status: No solids since midnight and No liquids within 2 hours Anesthesia Plan: MAC Planned Induction: intravenous Planned Postop Destination: endo Anesthetic plan was discussed with: patient Anesthetic Plan discussion was: Consented Use of blood products were discussed with: patient Use of blood product discussion was: Consented The patient's procedural Anesthetic Plan was discussed with the SCHOOL CROSSING GUARD. BMI, Height, Weight Tobacco History Estimated body mass index is 30.86 kg/m?? as calculated from the following: Height as of 12/07/22: 1.562 m (5' 1.5 ). Weight as of 12/07/22: 75.3 kg (166 lb). Social History Tobacco Use Smoking Status Former ??? Types: Cigarettes ??? Quit date: 06/2020 ??? Years since quittin.5 Smokeless Tobacco Never Alcohol History Drug History Social History Substance and Sexual Activity Alcohol Use Not Currently Comment: occ wine Social History Substance and Sexual Activity Drug Use Never Outpatient Medications: Inpatient Medications: No outpatient medications have been marked as taking for the 12/08/22 encounter (Anesthesia Event) with Olivia Cuevas APRN-CRNA. No current facility-administered medications for this visit. Facility-Administered Medications Ordered in Other Visits Medication Dose Last Admin ??? 0.9% NaCl 3 mL ??? famotidine 20 mg ??? lactated ringers Allergies: Allergies Allergen Reactions ??? Amoxicillin Rash and Unknown Relevant Problems GI (+) Esophageal reflux Problem List: Patient Active Problem List Diagnosis Date Noted ??? Diverticulitis 06/01/2019 Priority: Not Prioritized ??? Edema of lower extremity 05/13/2017 Priority: Not Prioritized ??? Anxiety 10/20/2016 Priority: Not Prioritized ??? Backache 01/23/2014 Priority: Not Prioritized ??? Esophageal reflux 11/22/2012 Priority: Not Prioritized Medical History: Past Medical History: Diagnosis Date ??? GERD (gastroesophageal reflux disease) ??? HTN (hypertension) ??? Morbid obesity (CMS/HCC) 03/09/2021 Surgical History: Past Surgical History: Procedure Laterality Date ??? Appendectomy 03/1999 ??? ENDOSCOPY, UPPER ??? ENDOSCOPY, UPPER N/A 02/02/2021 N/A; ESOPHAGOGASTRODUODENOSCOPY WITH BIOPSY ??? ENDOSCOPY, UPPER 02/23/2021 ESOPHAGOGASTRODUODENOSCOPY WITH BIOPSY ??? Gastrectomy N/A 03/09/2021 N/A; LAPAROSCOPIC SLEEVE GASTRECTOMY ??? Hysterectomy 12/2018 partial Lab Results: No results found for requested labs within last 120 days. No results found for requested labs within last 120 days. LITY ENGINEER documented in this encounter Miscellaneous Notes * Anesthesia Transfer of Care - Samm Alford APRN-CRNA - 12/08/2022 9:24 AM CST ANESTHESIA TRANSFER OF CARE NOTE Today's Date: 12/08/2022 Date of : 1975 Patient: Maria Del Carmen Ray Procedure(s): ESOPHAGOGASTRODUODENOSCOPY with BIOPSY Surgeon(s): Primary: Raisa Schmidt MD Preop Diagnosis: Pre-op Diagnois: * Gastroesophageal reflux disease, unspecified whether esophagitis present [K21.9] * S/P bariatric surgery [Z98.84] Pre-op Meds (From admission, onward) Start Stop Status Route Frequency Ordered 12/08/22 0716 0.9% NaCl injection 3 mL -- Dispensed IK PRE-PROCEDURE MULTIPLE 12/08/22 0716 12/08/22 0730 famotidine (Pepcid) injection 20 mg 12/08 0743 Completed IV PRE-OP ONCE 12/08/22 0716 12/08/22 0730 lactated ringers infusion -- Dispensed IV PRE-OP CONTINUOUS 12/08/22 0716 12/08/22 0911 lidocaine (Xylocaine) 2 % injection -- Sent IV PRN 12/08/22 0917 12/08/22 0911 propofol (Diprivan) injection -- Sent IV PRN 12/08/22 0918 Post-op Diagnosis: * Gastroesophageal reflux disease, unspecified whether esophagitis present [K21.9] * S/P bariatric surgery [Z98.84] . Allergies Allergen Reactions ??? Amoxicillin Rash and Unknown Vitals: Patient Vitals for the past 3 hrs: BP Temp Pulse Resp SpO2 Pain Rating Score #1 12/08/22 0737 139/87 98.2 ??F (36.8 ??C) 68 16 100 % 0 Lines, Drains, and Airways Type Details Placement Removal Peripheral IV Date: 12/08/22; Time: 739; Orientation: Posterior, Right; Location: Hand; Placed By:Gary Patton RN; Gauge: 20 Gauge; Locals: None; Tolerance: Well 12/08/22 0740 by Annika Patton RN Intraprocedure I/O Totals Intake I.V. 200 mL Total Intake 200 mL Patient Transfer Location: PACU Transport Airway: [...] of report from the receiving PACUteam. EDISON Cespedes LITY ENGINEER documented in this encounter Plan of Treatment Upcoming Encounters Date Type Department Care Team (Late st Contact Info) Description 03/15/2025 10:00 AM CDT Office Visit [facility] Weight Management Services [address] [place] [phone] Vianey Llanes, BURT-CHIEF MEDICAL PHYSICIST [address] [place] [address] 03/15/2025 10:30 AM CDT Clinical Support [facility] [address] [place] [phone] documented as of this encounter Visit Diagnoses Not on filedocumented in this encounter Administered Medications Inactive Administered Medications - up to 3 most recent administrations Medication Order MAR Action Action Date Dose Rate Site lidocaine (Xylocaine) 2 % injection Intravenous, PRN, Starting on Tue12/08/22 at 0911, Until Tue12/08/22 at 09, Anesthesia Intra-op $ Given 12/08/2022 9:11 AM FACILITY ENGINEER 50 mg propofol (Diprivan) injection Intravenous, PRN, Starting on Tue12/08/22 at 0911, Until Tue12/08/22 at 0924, Anesthesia Intra-op $ Given 12/08/2022 9:14 AM FACILITY ENGINEER 100 mg $ Given 12/08/2022 9:11 AM FACILITY ENGINEER 100 mg documented in this encounter
--- OUTSIDE RECORDS SUMMARY | 2024-11-04 22:59 | XMS_ITS | Encounter Summary ---
Author Organization [facility] Address [address] [place] [address] Care Team Providers Care Distiller Name Role Phone Cass Mast Primary Care Provider [phone] Reason for Visit * Reason Onset Date Comments Question 04/20/2023 Lab results Encounter Details Date Type Department Care Team (Late st Contact Info) Description 04/20/2023 Telephone [facility] Services [address] [place] [address] Raisa Schmidt MD [address] [place] [phone] Question (Lab results) Social History Tobacco Use Types Packs/Day Years [...] Sex Assigned at Female 11/25/2020 1:10 PM EGG SETTER Gender Identity Female 11/25/2020 1:10 PM EGG SETTER Sexual Orientation Straight 02/02/2021 4: 18 PM [...] Telephone Encounter - Lesley Harkins LPN - 04/20/2023 11:19 AM CDT Pt called office and asked about her lab results she had completed at [facility]. I voiced we had received partial lab results from 03/22/2023 with no provider recommendations at this time. Pt voices she has already called [facility] to have them fax results. I voiced she may call them again. Iprovided pt with our fax number. Pt voices she will also call her PCP office to see if they sent labs there. documented in this encounter Plan of Treatment Upcoming Encounters Date Type Department Care Team (Late st Contact Info) Description 03/15/2025 10:00 AM CDT Office Visit [facility] Weight Management Services [address] [place] [phone] Vianey Llanes, SURVEY ANALYST-BRAZING MACHINE SETTER [address] [place] [address] 03/15/2025 10:30 AM CDT Clinical Support [facility] [address] [place] [phone] documented as of this encounter Visit Diagnoses Not on filedocumented in this encounter Care Teams Distiller Relationship Specialty Start Date End Date Cass Mast PA [address] [place] [address] PCP - General Nurse Practitioner Primary Care 01/13/23 03/15/24 documented as of this encounter
--- OUTSIDE RECORDS SUMMARY | 2024-11-04 22:59 | XMS_ITS | Encounter Summary ---
Author Organization [facility] Health Address [address] [place] [address] Care Team Providers Care Work Force Advisor Name Role Phone Unavailable Primary Care Provider Unavailabl e Reason for Visit * Reason Comments Bariatric Surgery Follow-up Encounter Details Date Type Department Care Team (Late st Contact Info) Description 11/11/2022 9:45 AM MANAGEMENT ARCHITECT Video Visit [facility] Health Weight Management Services [address] [place] [phone] Raisa Schmidt MD [address] [place] [phone] Status post laparoscopic sleeve gastrectomy ; Abdominal pannus Social History Tobacco Use Types Packs/Day Years Used Date Smoking Tobacco: Former Cigarettes Q uit: 06/2020 Smokeless Tobacco: Never Alcohol Use Standard Drinks/Week Comments Yes 14 (1 standard drink = 0.6 oz pu re alcohol) occ wine Sex and Gender Information Value Date Recorded Sex Assigned at Female 11/25/2020 1:10 PM MANAGEMENT ARCHITECT Gender Identity Female 11/25/2020 1:10 PM MANAGEMENT ARCHITECT Sexual Orientation Straight 02/02/2021 4: 18 PM CDT documented as of this encounter Last Filed Vital Signs Vital Sign Reading Time Taken Comments Blood Pressure - - Pulse - - Temperature - - Respiratory Rate - - Oxygen Saturation - - Inhaled Oxygen Concentration - - Weight 75.8 kg (167 lb) 11/11/2022 9:35 AM MANAGEMENT ARCHITECT p er pt Height 160 cm (5' 3 ) 11/11/2022 9:35 AM MANAGEMENT ARCHITECT Body Mass Index 29.58 11/11/2022 9:35 AM MANAGEMENT ARCHITECT documented in this encounter Functional Status Functional [...] as of this encounter Progress Notes * Raisa Schmidt MD - 11/11/2022 9:49 AM CST [facility] [place] [address] . . Date of encounter: No admission date for patient encounter. Pt Name: Maria Del Carmen Ray : 1975 AGE: [age] year old SEX: female CSN: [id number] Visit type: Weight Management Follow Up Patients [...] Vitamins-Minerals (CENTRUM SILVER PO) ??? nystatin (MYCOSTATIN) [id number] UNIT/GM cream Apply to affected area 2 [...] LDL, HDL, TRIG, TSH in the last 68043 hours. No results for input(s): HGBA1C in the last 57339 hours. No results for input(s): PT, PTT, INR, TSH in the last 76333 hours. No results for input(s): TSH in the last 18533 hours. No results for input(s): IRON in the last 65452 hours. No results for input(s): [id number] in the last 08656 hours. No results for input(s): VITAMINA in the last 20098 hours. No results for input(s): IRON in the last 45686 hours. No results for input(s): VITK1 in the last 48551 hours. No results for input(s): [id number] in the last 61834 hours. No results for input(s): ALPHATOCOPH in the last 47006 hours. No results for input(s): GAMMATOCOPH in the last 43008 hours. No results for input(s): MAGMGDL in the last 89587 hours. Recent Labs Component Name 03/10/21 041 PHOS 2.5 Some lab results will be in paper format so may be scanned in the EMR. Imaging studies No results found. Some Imaging studies results will be in paper format so may be scanned in the EMR. Assessment and Plan Overweight: S/P Bariatric Surgery :??s/p: Laparoscopic Sleeve Gastrectomy. Date of surgery??03/09/2021??@ [facility] by??Dr. Mendoza. Change in weight [...] colonoscopy was 08/25/[address] Bailey at [facility] in [facility]. Shewas recommended repeat colonoscopy in 5 years. [...] as documented in Epic. Raisa Schmidt MD GEMENT ARCHITECT documented in this encounter Plan of Treatment Upcoming Encounters Date Type Department Care Team (Late st Contact Info) Description 03/15/2025 10:00 AM CDT Office Visit [facility] Health Weight Management Services [address] [place] [phone] Vianey Llanes, RN CONCURRENT REVIEW-FARM MACHINERY ASSEMBLER [address] [place] [address] 03/15/2025 10:30 AM CDT Clinical Support [facility] Weight Management Services [address] [place] [address] documented as of this encounter Visit Diagnoses Diagnosis Status post laparoscopic sleeve gastrectomy- Primary Abdominal pannus Localized adiposity documented in this encounter
--- OUTSIDE RECORDS SUMMARY | 2024-11-04 22:59 | XMS_ITS | Encounter Summary ---
Author Organization [facility] Health Address [address] [place] [address] Care Team Providers Care Small Animal Veterinarian Name Role Phone Unavailable Primary Care Provider Unavailabl e Encounter Details Date Type Department Care Team (Late st Contact Info) Description 12/24/2022 Orders Only [facility] Health Weight Management Services [address] [place] [phone] Raisa Schmidt MD [address] [place] [address] History of tobacco use Social [...] Sex Assigned at Female 11/25/2020 1:10 PM BLOW MOLDER Gender Identity Female 11/25/2020 1:10 PM BLOW MOLDER Sexual Orientation Straight 02/02/2021 4: 18 PM CDT COVID-19 Exposure Response Date Recorded In the last 10 days, have domenica u been in contact with someone who was confirmed or suspected to have Coronavirus/COVID-19? No / Unsure 12/30/2022 10:11 AM BLOW MOLDER documented as of this encounter Functional Status [...] 03/15/2025 10:00 AM CDT Office Visit [facility] Health Weight Management Services [address] [place] [phone] Vianey Llanes, NEONATAL INTENSIVE CARE UNIT NURSE-ELECTRONICS TECHNOLOGY DEPARTMENT CHAIR [address], [place] [phone] 03/15/2025 10:30 AM CDT Clinical Support [facility] Health Weight Management Services [address] [place] [phone] documented as of this encounter Procedures Procedure Name Priority Date/Time Associated Diagnosis Comments NICOTINE + METABOLITES BLOOD Routine 12/30/2022 10:30 AM BLOW MOLDER History of tobacco use documented in this encounter Results * NICOTINE + METABOLITES BLOOD (12/30/2022 10:30 AM BLOW MOLDER) [facility] Nicotine <5 ng/mL 01/04/2023 1:35 AM BLOW MOLDER [facility] ([facility]) Comment: Consistent with abstinence from [...] developed and its performance characteristics determined by [facility]. It has not been cleared or approved by the [place] Food and Drug Administration. This test was performed in a CLIA certified laboratory and is intended for clinical purposes. Performed By: [facility] [address] [place] [address] Jig Builder Helper: Zach Bello MD, PhD Cotinine <5 ng/mL 01/04/2023 1:35 AM BLOW MOLDER [facility] ([facility]) Blood BLOOD SPECIMEN / Unknown Lab Venipuncture / Unknown 12/30/2022 10:30 AM BLOW MOLDER 12/30/2022 10:41 AM BLOW MOLDER Raisa Schmidt MD LAB - CHEMISTRY ORDERABLES [facility]) [address] documented in this encounter Visit Diagnoses Diagnosis History of tobacco use Personal history of tobacco use, presenting hazards to health documented in this encounter
--- OUTSIDE RECORDS SUMMARY | 2024-11-04 22:59 | XMS_ITS | Encounter Summary ---
Author Organization [facility] Address [address] [place] [address] Care Team Providers Care Whittling Room Operator Name Role Phone Unavailable Primary Care Provider Unavailabl e Encounter Details Date Type Department Care Team (Late st Contact Info) Description 09/15/2022 1:00 PM UI ENGINEER Video Visit [facility] Weight Management Services [address] [place] [phone] Raisa Schmidt MD [address] [place] [address] S/P laparoscopic sleeve gastrectomy Social History Tobacco Use Types Packs/Day Years Used Date Smoking Tobacco: Former Cigarettes Q uit: 06/2020 Smokeless Tobacco: Never Alcohol Use Standard Drinks/Week Comments Yes 14 (1 standard drink = 0.6 oz pu re alcohol) occ wine Sex and Gender Information Value Date Recorded Sex Assigned at Female 11/25/2020 1:10 PM UI ENGINEER Gender Identity Female 11/25/2020 1:10 PM UI ENGINEER Sexual Orientation Straight 02/02/2021 4: 18 PM CDT documented as of this encounter Last Filed Vital Signs Vital Sign Reading Time Taken Comments Blood Pressure - - Pulse - - Temperature - - Respiratory Rate - - Oxygen Saturation - - Inhaled Oxygen Concentration - - Weight 75.9 kg (167 lb 6.4 oz) 09/15/2022 12:00 PM UI ENGINEER Height 160 cm (5' 3 ) 09/15/2022 12:00 PM UI ENGINEER Body Mass Index 29.65 09/15/2022 12:00 PM UI ENGINEER documented in this encounter Functional Status Functional [...] Progress Notes * Jerrica Whitaker RD/SIN - 09/15/2022 1:00 PM CST MEDICAL NUTRITION THERAPY Weight Management Services Bariatric Surgery Follow-Up Session Number: (18 months s/p VSG) Patient Verification & Telemedicine Based Consent I [...] to the billing and collection practices of [facility]. Patient location: Work This encounter was performed using: audio and video Total time spent on visit on date of encounter is: 9 minutes Session Date: 09/15/22 Patient: Maria Del Carmen Ray Date of : 1975 (47 year old) PCP Physician: No primary care provider on file. Referring Physician: Roxana NUTRITION ASSESSMENT Primary Diagnoses/Co-morbidities: (overweight) Secondary Diagnoses/Co-morbidities: Hypertension (GERD) Have you seen a dietitian?: Yes Pertinent Labs: no new to review Pertinent Medications: reviewed- Current V/M Supplements: CS BID, 600 mg calcium citrate??BID,??Vitron C daily Eating History Are you following a special [...] How many minutes of exercise each time?: 60 Minutes Weight History Height: 5' 3 (160 cm) Initial Program Weight: 255.6#?BMI 45.28 Current Weight: 167 lb 6.4 oz (75.9 kg) Weight Method (Utilize Scales): Standing BMI (Calculated): 29.66 Has your weight changed since last visit?: Loss # (5.1#) Total Program Weight Loss: 88.2# Pt seen for nutrition f/u. Pt is 18 months s/p VSG by Dr. Mendoza. Pt's weight is down 5.1# since last visit, down 88.2# since beginning program. Pt reports no GI concerns. Pt reports only concernis pants feeling tighter even though is losing weight. Pt maintaining regimen of drinking 2 shakes/day and eating mostly fish with broccoli or cabbage. Pt is drinking adequate fluids and walking at least 60 min daily for exercise. Pt reports also walking a lot in general. Reviewed food recall and vitamins. 24 Hour Food Recall Breakfast - protein shake- [employer] Lunch - Protein shake Dinner - 1-2 oz fish- air fryer, 1/2 c steamed broccoli Snacks - none Beverages - 64+ oz water, occasional SF Minute Maid NUTRITION DIAGNOSIS Diagnosis: Overweight/obesity Related to: (hx excessive kcal intake) As evidenced by: BMI 29.65. NUTRITION INTERVENTION Interventions: Motivational interviewing;Goal setting;Self-monitoring;Problem solving;Recommended modifications;Collaboration with other providers Reviewed healthy balance diet for weight loss using protein shakes. Reviewed the foster bariatric dietprinciples. Further instruction provided for phases of bariatric diet. Reinforced behavior changes for bariatric diet such as no straws and smaller plate. Explained importance of continued bariatric vitamin/mineral and protein supplementation. Pt v/u. Pt continues to be successful post op. Reviewed phase IV foods, portion sizes, max intake of 1 c/meal, limit CHOs to <1/2 c/day and reinforced introducing new foods one at a time to assess tolerance. Reinforced importance of 80+ g protein/day and 64+ oz low kcal, sugar-free, decaf, non-carbonated fluids/day. Reviewed mindful eating techniques. Reinforced not eating and drinking at same time. Reinforced importance of bariatric MV or MV BID and 500 mg calcium citrate BID at least an hour apartfrom MV per ASMBS guidelines to prevent nutritional deficiencies. Reinforced physical activity of 150+ minutes weekly to promote weight loss and for cardiovascular benefits. Recommended addition of strength training exercises to reduce loose skin. Pt v/u and agreeable to f/u at 2 years post op. External Barriers to Change: none NUTRITION MONITORING/EVALUATION Nutrient Needs: Goals: Nutrition Goal #1: 80+ g protein daily Nutrition Goal #2: 64+ oz fluid daily Nutrition Goal #3: 150+ min exercise per week Monitor/Evaluation: Monitoring and evaluation: Fluid/beverage intake;Food intake;Protein intake;Carbohydrate intake;Mineral/element intake;Food and nutrition knowledge/skills;Beliefs and attitudes;Adherence;Physical activity;Weight change;Body Mass index RD contact information provided. Pt encouraged to call RD with questions and/or concerns. Evaluation of Overall Compliance Potential: Comprehension: Often Demonstrated Receptivity: Often Demonstrated Adherence: Often Demonstrated Session Information Session Date: 09/15/22 Session Beginning Time: 125 Session ending time: 1308 Session total minutes: 9 Minutes Teaching Method: Explanation;Demonstration;Teach Back Next visit: (2 years post op) Total MNT minutes this calendar year: Nutritional Review ?? Cleared, additional RD visits required pre-op ___ ?? Cleared, no additional RD visits required pre-op ___ ?? Not cleared, additional RD visit(s) required pre-op ___ ?? Continue with post op RD visits per protocol _X__ Jerrica Whitaker RD/LDN ENGINEER documented in this encounter Plan of Treatment Upcoming Encounters Date Type Department Care Team (Late st Contact Info) Description 03/15/2025 10:00 AM CDT Office Visit [facility] Health Weight Management Services [address] [place] [phone] Vianey Llanes APRN-UNDERWATER PHOTOGRAPHER [address] [place] [address] 03/15/2025 10:30 AM CDT Clinical Support [facility] Health Weight Management Services [address] [place] [phone] documented as of this encounter Visit Diagnoses Diagnosis S/P laparoscopic sleeve gastrectomy- Primary documented in this encounter
--- OUTSIDE RECORDS SUMMARY | 2024-11-04 22:59 | XMS_ITS | Encounter Summary ---
Author Organization [facility] Address [address] [facility] [place] [address] Care Team Providers Care Manager Spanish Name Role Phone Unavailable Primary Care Provider Unavailabl e Encounter Details Date Type Department Care Team (Late st Contact Info) Description 04/10/2021 2:00 PM CDT Video Visit [facility] Weight Management Services [address] [place] [address] S/P laparoscopic sleeve gastrectomy Social History Tobacco Use Types Packs/Day Years Used Date Smoking Tobacco: Former Cigarettes Q uit: 06/2020 Smokeless Tobacco: Never Alcohol Use Standard Drinks/Week Comments Not Currently 14 (1 standard drink = 0.6 oz pu re alcohol) Sex and Gender Information Value Date Recorded Sex Assigned at Female 11/25/2020 1:10 PM SEARCH PLANNER Gender Identity Female 11/25/2020 1:10 PM SEARCH PLANNER Sexual Orientation Straight 02/02/2021 4: 18 PM CDT documented as of this encounter Last Filed Vital Signs Vital Sign Reading Time Taken Comments Blood Pressure - - Pulse - - Temperature - - Respiratory Rate - - Oxygen Saturation - - Inhaled Oxygen Concentration - - Weight 98.9 kg (218 lb) 04/10/2021 2:07 PM CDT p er report Height 160 cm (5' 3 ) 04/10/2021 2:07 PM CDT Body Mass Index 38.62 04/10/2021 2:07 PM CDT documented in this encounter Functional [...] as of this encounter Progress Notes * Le Carvajal, RD/LD - 04/10/2021 2:00 PM CDT MEDICAL NUTRITION THERAPY Weight Management Services Bariatric Surgery Follow-Up Session Number: Session II (1 month s/p VSG) Patient Verification & Telemedicine Based [...] to the billing and collection practices of [facility]. Patient location: work- sitting outside This encounter was performed using: audio and video Total time spent on visit on date of encounter is: 10 minutes Session Date: 04/10/21 Patient: Maria Del Carmen Ray Date of : 1975 (45 year old) PCP Physician: SANGEETHA Motta Referring Physician: Roxana NUTRITION ASSESSMENT Primary Diagnoses/Co-morbidities: Obesity Secondary Diagnoses/Co-morbidities: Hypertension (GERD) Have you seen a dietitian?: Yes Pertinent Labs: no new to review Pertinent Medications: reviewed Current V/M Supplements: CS BID, 600 mg calcium citrate Eating History Are you following a special diet at home?: (phase 2) Are you having trouble following your diet?: No Are you having any trouble eating?: No Are you avoiding salty food, and not adding salt to your food?: No Are you limiting your liquids?: No How much liquids per day do you drink?: 50+ oz Usual Number of Times You Eat Out Per Week : 1-3 per week Who prepares the meals?: Self Exercise Type of exercise?: Walking How many times do you exercise each week?: 5 How many minutes of exercise each time?: 30 Minutes Weight History Height: 5' 3 (160 cm) Initial Program Weight: ??255.6#?BMI: 45.28 Current Weight: 218 lb (98.9 kg) (per report) Weight Method (Utilize Scales): Standing BMI (Calculated): 38.63 Has your weight changed since last visit?: Loss # (9#) Total Program Weight Loss: 37.6# Pt seen for nutrition f/u. Pt is 1 month s/p VSG by Dr. Mendoza. Pt's weight is down 9# since last visit, down 37.6# since beginning program. Pt reports drinking 1-2 shakes a day as meals. Pt reports when not drinking 2 shakes, will have 2 oikos triple zero yogurts. Pt reports tolerating phase 2well. Pt reports drinking 50 oz water daily. Pt reports walking daily. Pt with c/o constipation. Reviewed vitamins and food recall. 24 Hour Food Recall Breakfast - shake Lunch - Oikos triple zero Dinner - fish Snacks - oikos triple zero Beverages - 50+ oz water, Gatorade Zero, Minute Maid Zero NUTRITION DIAGNOSIS Diagnosis: Overweight/obesity Related to: (hx of excessive calorie intake) As evidenced by: BMI 38.62. NUTRITION INTERVENTION Interventions: Goal setting;Motivational interviewing;Collaboration with other providers Reviewed healthy balance diet for weight loss using protein shakes. Reviewed the foster bariatric dietprinciples. Further instruction provided for phases of bariatric diet. Reinforced behavior changes for bariatric diet such as no straws and smaller plate. Explained importance of continued bariatric vitamin/mineral and protein supplementation. Pt v/u. Pt is ready to begin phase III. Reviewed phase III foods, portion sizes, max intake of 3/4 c/meal, limit CHOs to <1/4 c/day and reinforced introducing new foods one at a time to assess tolerance. Reinforced importance of 2 protein shakes daily as meals to meet nutrition needs and promote weight loss. Reinforced 64+ oz fluids daily.Reinforced importance of MV BID and 500 mg calcium citrate BID at least an hour apart from MV per ASMBS guidelines to prevent nutritional deficiencies. Recommendedgradually increasing physical activity to 150+ minutes weekly to promote weight loss and for cardiovascular benefits. Pt v/u. External Barriers to Change: none NUTRITION MONITORING/EVALUATION Nutrient Needs: Goals: Nutrition Goal #1: Begin phase 3 Nutrition Goal #2: 1-2 shakes a day as meals Nutrition Goal#3: 64+ oz water daily Monitor/Evaluation: Monitoring and evaluation: Fluid/beverage intake;Food intake;Food and nutritionknowledge/skills;Beliefs and attitudes;Adherence;Physical activity;Weight change;Body Mass index RDcontact information provided. Pt encouraged to call RD with questions and/or concerns. Evaluation of Overall Compliance Potential: Comprehension: Often Demonstrated Receptivity: Often Demonstrated Adherence: Often Demonstrated Session Information Session Date: 04/10/21 Session Beginning Time: 1402 Session ending time: 1412 Session total minutes: 10 Minutes Teaching Method: Explanation;Demonstration;Teach Back Next visit: (2 month f/u) Total MNT minutes this calendar year: 60/240 Nutritional Review ?? Cleared, additional RD visits required pre-op ()___ ?? Cleared, no additional RD visits required pre-op ___ ?? Not cleared, additional RD visit(s) required pre-op ___ ?? Continue with post op RD visits per protocol _X__ Le Carvajal, BARBY/LD documented in this encounter Plan of Treatment Upcoming Encounters Date Type Department Care Team (Late st Contact Info) Description 03/15/2025 10:00 AM CDT Office Visit [facility] Health Weight Management Services [address] [place] [phone] Vianey Llanes, BURT-CHIEF LOAD DISPATCHER [address], [place] [phone] 03/15/2025 10:30 AM CDT Clinical Support [facility] Health Weight Management Services [address] [place] [phone] documented as of this encounter Visit Diagnoses Diagnosis S/P laparoscopic sleeve gastrectomy- Primary documented in this encounter
--- OUTSIDE RECORDS SUMMARY | 2024-11-04 22:59 | XMS_ITS | Encounter Summary ---
Author Organization [facility] Address [address] [place] [address] Care Team Providers Care Mortgage Loan Reviewer Name Role Phone Unavailable Primary Care Provider Unavailabl e Encounter Details Date Type Department Care Team (Late st Contact Info) Description 04/08/2022 9:00 AM CDT Video Visit [facility] Weight Management Services [address] [place] [phone] Raisa Schmidt MD [address] [place] [phone] S/P laparoscopic sleeve gastrectomy Social History Tobacco Use Types Packs/Day Years Used Date Smoking Tobacco: Former Cigarettes Q uit: 06/2020 Smokeless Tobacco: Never Alcohol Use Standard Drinks/Week Comments Not Currently 14 (1 standard drink = 0.6 oz pu re alcohol) Sex and Gender Information Value Date Recorded Sex Assigned at Female 11/25/2020 1:10 PM GAME PROTECTOR Gender Identity Female 11/25/2020 1:10 PM GAME PROTECTOR Sexual Orientation Straight 02/02/2021 4: 18 PM CDT documented as of this encounter Last Filed Vital Signs Vital Sign Reading Time Taken Comments Blood Pressure - - Pulse - - Temperature - - Respiratory Rate - - Oxygen Saturation - - Inhaled Oxygen Concentration - - Weight 78.9 kg (174 lb) 04/08/2022 9:00 AM CDT Height 160 cm (5' 3 ) 04/08/2022 9:00 AM CDT Body Mass Index 30.82 04/08/2022 9:00 AM CDT documented in this encounter [...] Progress Notes * Jerrica Whitaker RD/SIN - 04/08/2022 9:00 AM CDT MEDICAL NUTRITION THERAPY Weight Management Services Bariatric Surgery Follow-Up Session Number: (1 year s/p VSG) Patient Verification & Telemedicine Based [...] to the billing and collection practices of [facility]. Patient location: Home This encounter was performed using: audio Reason for not using video for visit: technical problems in using available video technology Total time spent on visit on date of encounter is: 10 minutes Session Date: 04/08/22 Patient: Maria Del Carmen Ray Date of : 1975 (46 year old) PCP Physician: No primary care provider on file. Referring Physician: Roxana NUTRITION ASSESSMENT Primary Diagnoses/Co-morbidities: Obesity Secondary Diagnoses/Co-morbidities: Hypertension (GERD) Have you seen a dietitian?: Yes Pertinent Labs: reviewed- B1 9 Pertinent Medications: reviewed Current V/M Supplements: CS BID, 600 mg calcium citrate??BID, Vitron C daily, recommended 100 mg B1QOD??for 1-2 mo Eating History Are you following a special [...] How many minutes of exercise each time?: (16,000-20,000 steps a day) Weight History Height: 5' 3 (160 cm) Initial Program Weight: 255.6#?BMI: 45.28 Current Weight: 174 lb (78.9 kg) Weight Method (Utilize Scales): Stated BMI (Calculated): 30.83 Has your weight changed since last visit?: Loss # (9.4#) Total Program Weight Loss: 81.6# Pt seen for nutrition f/u. Pt is 1 year s/p VSG by Dr. Mendoza. Pt's weight is down 9.4# since last visit, down 81.6# since beginning program. Pt reports weight has been stalled several months andclothes are still fitting the same. Pt reports still feeling constipated despite trying Miralax andBenefiber. Pt reports drinking 1-2 protein shakes/day and keeping portions to 1 c per meal. Pt reports getting a lot of steps during 16 hour work day and sometimes walking around park as well. Reviewed food recall and vitamins. 24 Hour Food Recall (Current) Breakfast - shake - Member's Ranulfo Lunch - 2 oz Fish - air fryer, spinach salad Dinner - shake Snacks - none Beverages - 1 gallon water NUTRITION DIAGNOSIS Diagnosis: Overweight/obesity Related to: (hx excessive kcal intake) As evidenced by: BMI 30.82. NUTRITION INTERVENTION Interventions: Motivational interviewing;Goal setting;Self-monitoring;Problem solving;Recommended modifications;Collaboration with other providers Reviewed healthy balance diet for weight loss using protein shakes. Reviewed the foster bariatric diet principles. Further instruction provided for phases of bariatric diet. Reinforced behavior changes for bariatric diet such as no straws and smaller plate. Explained importance of continued bariatric vitamin/mineral and protein supplementation. Pt v/u. Pt's weight loss has been stalled but is overall doing well. Reviewed phase IV foods, portion sizes, max intake of 1 c/meal, limit CHOs to <1/2 c/day and reinforced introducing new foods one at a time to assess tolerance. Reinforced importance of 80+ g protein/day and 64+ oz low kcal, sugar-free, decaf, non- carbonated fluids/day. Reviewed mindful eating techniques. Reinforced not eating and drinking at same time. Reinforced importance of bariatric MV or MV BID and 500 mg calcium citrate BID at least an hour apart from MV per ASMBS guidelines to prevent nutritional deficiencies. Reinforced physical activity of 150+ minutes weekly to promote weight loss and for cardiovascular benefits. Pt v/u and agreeable to f/u at 18 months post op. External Barriers to Change: constipation NUTRITION MONITORING/EVALUATION Nutrient Needs: Goals: Nutrition Goal #1: 80+ g protein daily Nutrition Goal #2: 64+ oz fluid daily Nutrition Goal #3: 150+ min exercise per week + resistance Monitor/Evaluation: Monitoring and evaluation: Fluid/beverage intake;Food intake;Protein intake;Carbohydrate intake;Mineral/element intake;Food and nutrition knowledge/skills;Beliefs and attitudes;Adherence;Body Mass index;Weight change;Physical activity RD contact information provided. Pt encouraged to call RD with questions and/or concerns. Evaluation of Overall Compliance Potential: Comprehension: Often Demonstrated Receptivity: Often Demonstrated Adherence: Often Demonstrated Session Information Session Date: 04/08/22 Session beginning time: 902 Session ending time: 912 Session total minutes: 10 Minutes Teaching Method: Explanation;Demonstration;Teach Back Next visit: (18 months post op) Total MNT minutes this calendar year: Nutritional Review ?? Cleared, additional RD visits required pre-op ___ ?? Cleared, no additional RD visits required pre-op ___ ?? Not cleared, additional RD visit(s) required pre-op ___ ?? Continue with post op RD visits per protocol _X__ Jerrica Whitaker RD/LDN documented in this encounter Plan of Treatment Upcoming Encounters Date Type Department Care Team (Late st Contact Info) Description 03/15/2025 10:00 AM CDT Office Visit [facility] Weight Management Services [address] [place] [phone] Vianey Llanes, MARYSAWSMITH [address] [place] [address] 03/15/2025 10:30 AM CDT Clinical Support [facility] Weight Management Services [address] [place] [phone] documented as of this encounter Visit Diagnoses Diagnosis S/P laparoscopic sleeve gastrectomy- Primary documented in this encounter
--- OUTSIDE RECORDS SUMMARY | 2024-11-04 22:59 | XMS_ITS | Encounter Summary ---
Author Organization [facility] Address [address] [place] [address] Care Team Providers Care Manager Art Name Role Phone Unavailable Primary Care Provider Unavailabl e Reason for Visit * Reason Comments Surgery Consult Bariatric Surgery Initial Assessment Encounter Details Date Type Department Care Team (Late st Contact Info) Description 03/18/2021 10:15 AM CDT Video Visit [facility] Weight Management Services [address] [place] [phone] Rehan Mendoza MD [id number] [place] [phone] Morbid obesity (HCC) Social History Tobacco Use Types Packs/Day Years Used Date Smoking Tobacco: Former Cigarettes Q uit: 06/2020 Smokeless Tobacco: Never Alcohol Use Standard Drinks/Week Comments Not Currently 14 (1 standard drink = 0.6 oz pu re alcohol) Sex and Gender Information Value Date Recorded Sex Assigned at Female 11/25/2020 1:10 PM HVAC LEAD Gender Identity Female 11/25/2020 1:10 PM HVAC LEAD Sexual Orientation Straight 02/02/2021 4: 18 PM [...] - Inhaled Oxygen Concentration - - Weight 103 kg (227 lb) 03/18/2021 10:00 AM CDT Height 160 cm (5' 3 ) 03/18/2021 10:00 AM CDT Body Mass Index 40.21 03/18/2021 10:00 AM CDT documented in this encounter Functional [...] as of this encounter Progress Notes * Rehan Mendoza MD - 03/21/2021 8:14 AM CDT Images from the original note were not included. [facility] [place] [address] . . Date of encounter: 03/18/2021 Pt Name: Maria Del Carmen Ray : 1975 AGE: [age] year old SEX: female CSN: [id number] Patient Verification & Telemedicine Based Consent I [...] consent paragraph with the patient/surrogate. Visit type: Bariatric Virtual Post Operative follow up The patient has given verbal consent to have today's visit conducted by this same means with treatment provided remotely. The patient verbally consents to the billing and collection practices. Patients Primary care provider is : Rose Marie Norton APRN-BLAKE Subjective: Maria Del Carmen Ray presents to the clinic 1 week following Laparoscopic Sleeve Gastrectomy. she was seen in clinic last on 03/11/2021. Patient is taking 30 grams of proteins supplements daily. Patient is not attending support group meeting. The patient has not been participating in an onlinesupport group. Patient is taking 40 oz of fluid per day. Doing 10 minutes of exercise daily. Patient is not taking Bariatric multivitamins. Patient is not having Reflux, Vomiting, Dysphagia, Abdominal Pain and Cough, The patient is not having any pain.. Bowel movement are Normal. Has the patient [...] Total Wt Loss in lb: 28.6 lb BSTOP Questions - 1 wk Post op How many doses of opioid pain medication did you take after discharge?3 Are you still taking the opioid pain medication prescribed to you at discharge?no Did you receive any refills on the opioid pain medication prescribed to you after discharge? no Did you dispose of unused pain medication at an appropriate facility or drop- off? At home Obesity History Years at current weight? 13 Years at 35 pounds overweight? 13 Years 100 pounds overweight? Age patient started to diet? 41 Maximum weight reached? 255 Most significant weight loss: Amount of weight loss 20lb Months weight loss sustained 2 months Method of weight loss phentermine BMI: Body mass index is 40.21 kg/m??. Past Medical History: Diagnosis Date ??? [...] Gatherings with Friends and Family: ??? Attends [employer] Services: ??? Active Member of Clubs or Organizations: ??? Attends Club or Organization Meetings: ??? Marital Status: Intimate Partner Violence: ??? Fear of Current or Ex-Partner: ??? Emotionally Abused: ??? Physically Abused: ??? Sexually Abused: Family History: Family History Problem Relation Name Age of Onset ??? Hypertension Mother ??? Hypertension Father ??? CVA Father Medications: Outpatient Medications Marked as Taking for the 03/18/21 encounter (Video Visit) with Rehan Mendoza MD Medication Sig ??? acetaminophen (TYLENOL) 500 MG tablet Pt is to take 2 tabs po every 6 hours for basal pain ??? omeprazole (PRILOSEC) 40 MG capsule Take 1 (one) capsule by mouth daily before breakfast Reasons: Gastroesophageal Reflux Disease ??? ondansetron, disintegrating, (ZOFRAN ODT) 4 MG tablet Take 1 (one) tablet by mouth every 4 hours as needed for Nausea/Vomiting Allow tablet to dissolve on the tongue ??? Probiotic Product ([employer]Health) capsule Take 1 (one) capsule by mouth [...] Objective: Ht 5' 3 (1.6 m) Wt 227 lb (103 kg) BMI 40.21 kg/m2 Weight: 227 lb (103 kg) Height: 5' 3 (160 cm) Body mass index is 40.21 kg/m??. Constitutional: Alert, awake and oriented without [...] LDL, HDL, TRIG, TSH in the last 72094 hours. No results for input(s): HGBA1C in the last 55797 hours. No results for input(s): PT, PTT, INR, TSH in the last 12305 hours. No results for input(s): TSH in the last 67309 hours. No results for input(s): IRON in the last 68156 hours. No results for input(s): TPNUUEEN97 in the last 92963 hours. No results for input(s): VITAMINA in the last 30240 hours. No results for input(s): IRON in the last 60805 hours. No results for input(s): VITK1 in the last 89356 hours. No results for input(s): [id number] in the last 20117 hours. No results for input(s): ALPHATOCOPH in the last 90128 hours. No results for input(s): GAMMATOCOPH in the last 93374 hours. No results for input(s): MAGMGDL in the last 41835 hours. Recent Labs Component Name 03/10/21 0413 PHOS 2.5 Some lab results will be in paper format so may be scanned in the EMR. Imaging studies No results found. Some Imaging studies results will be in paper format so may be scanned in the EMR. Assessment and Plan Morbid Obesity : Change in weight as noted in the weight history above. Total weight loss since starting the program: 28.6 pounds Current BMI Body mass index is 40.21 kg/m??. with weight of Weight: 227 lb (103 kg) . Patient is losing weight. Patient [...] deficiency should she fail to take supplementation. Surgery : s/p: Laparoscopic Sleeve Gastrectomy. Date of surgery [facility] byDr. Rehan Mendoza. Doing well postoperatively. Operative note reviewed with patient. Wound care discussed. Wounds healing well. No hernia palpable. Continue taking Antacid medication and continue pre operative anxiety or psychiatric medication. Start Vitamins 2 week after surgery. Start Actigall 10 days after surgery for 3 months. No lifting more than 10 pounds for 2 weeks after surgery. May use fibre supplementation like Bene fiber 1-2 teaspoon twice daily in the protein supplementation to prevent constipation. GERD Complains of reflux symptoms occasionally. EGD [...] aVF??- ??Cardiac clearance obtained 11/24/2020 Cornell Chavarria I counseled the patient on continuing Behavior [...] plan, at least 10 minutes per day. Plan : as above recommendation. Follow up with: Surgeons / PA/ ELECTRIC MOTOR CONTROL ASSEMBLER : 1 month. Dietitian: as scheduled. Consults: None. Patient location: Home This encounter was performed using: audio and video Time spent with patient/proxy: 15 minutes The plan was reviewed with the patient and the patient confirmed understanding of the plan and all follow-up steps. Patient is agreeable with this plan after shared decision making with patient. All aspects of patient's medical history were reviewed and updated as documented in Epic By assigning my name below, IDeclan, attest that this documentation has been prepared underthe direction of Dr. Rehan Mendoza.03/21/2021 IRehan MD personally performed the services described in this documentation. All medical record entries made by the scribe were at my direction. I have reviewed the chart and agree thatthe record reflects my personal performance and is accurate and complete. CC: Rose Marie Norton APRN-RICE FARMWORKER documented in this encounter Plan of Treatment Upcoming Encounters Date Type Department Care Team (Late st Contact Info) Description 03/15/2025 10:00 AM CDT Office Visit [facility] Weight Management Services [address] [place] [phone] Vianey Llanes, BURT-RICE FARMWORKER [address], [place] [phone] 03/15/2025 10:30 AM CDT Clinical Support [facility] Weight Management Services [address] [place] [phone] documented as of this encounter Visit Diagnoses Diagnosis Morbid obesity (HCC)- Primary Morbid obesity documented in this encounter
--- OUTSIDE RECORDS SUMMARY | 2024-11-04 22:59 | XMS_ITS | Encounter Summary ---
Author Organization [facility] Address [address] [place] [address] Care Team Providers Care Security Site Supervisor Name Role Phone Unavailable Primary Care Provider Unavailabl e Reason for Visit * Reason Onset Date Comments Reminder Call 12/22/2022 Echeck in Encounter Details Date Type Department Care Team (Late st Contact Info) Description 12/22/2022 Telephone [facility] Weight Management Services [address] [place] [phone] Raisa Schmidt MD [address] [place] [phone] Reminder Call (Echeck in) Social History Tobacco Use Types Packs/Day Years [...] Sex Assigned at Female 11/25/2020 1:10 PM EMPLOYMENT SPECIALIST/PROGRAM MANAGER Gender Identity Female 11/25/2020 1:10 PM EMPLOYMENT SPECIALIST/PROGRAM MANAGER Sexual Orientation Straight 02/02/2021 4: 18 PM [...] Telephone Encounter - Lesley Harkins LPN - 12/22/2022 9:33 AM EMPLOYMENT SPECIALIST/PROGRAM MANAGER Called pt to remind her to complete echeck in through Flashnotes, no success. Unable to leave message d/t VM not set up. Will send [employer] message. [employer] message sent. OYMENT SPECIALIST/PROGRAM MANAGER documented in this encounter Plan of Treatment Upcoming Encounters Date Type Department Care Team (Late st Contact Info) Description 03/15/2025 10:00 AM CDT Office Visit [facility] Weight Management Services [address] [place] [phone] Vianey Llanes, DROP HAMMER SETTER UP-HEATER ROOM HELPER [address] [place] [address] 03/15/2025 10:30 AM CDT Clinical Support [facility] Weight Management Services [address] [place] [phone] documented as of this encounter Visit Diagnoses Not on filedocumented in this encounter
--- OUTSIDE RECORDS SUMMARY | 2024-11-04 22:59 | XMS_ITS | Encounter Summary ---
Author Organization [facility] Address [address] [place] [address] Care Team Providers Care Regional Transportation Manager Name Role Phone Unavailable Primary Care Provider Unavailabl e Encounter Details Date Type Department Care Team (Latest Contact Info) Description 11/03/2021 1:00 PM GLOVE EXAMINER Clinical Support [facility] Weight Management Services [address] [place] [phone] Raisa Schmidt MD [address] [place] [phone] S/P laparoscopic sleeve gastrectomy Social History Tobacco Use Types Packs/Day Years Used Date Smoking Tobacco: Former Cigarettes Q uit: 06/2020 Smokeless Tobacco: Never Alcohol Use Standard Drinks/Week Comments Not Currently 14 (1 standard drink = 0.6 oz pu re alcohol) Sex and Gender Information Value Date Recorded Sex Assigned at Female 11/25/2020 1:10 PM GLOVE EXAMINER Gender Identity Female 11/25/2020 1:10 PM GLOVE EXAMINER Sexual Orientation Straight 02/02/2021 4: 18 PM CDT documented as of this encounter Last Filed Vital Signs Vital Sign Reading Time Taken Comments Blood Pressure - - Pulse - - Temperature - - Respiratory Rate - - Oxygen Saturation - - Inhaled Oxygen Concentration - - Weight 83.2 kg (183 lb 6.4 oz) 11/03/2021 12:00 PM GLOVE EXAMINER Height 160 cm (5' 3 ) 11/03/2021 12:00 PM GLOVE EXAMINER Body Mass Index 32.49 11/03/2021 12:00 PM GLOVE EXAMINER documented in this encounter Functional Status Functional [...] Progress Notes * Jerrica Whitaker RD/SIN - 11/03/2021 1:00 PM CST MEDICAL NUTRITION THERAPY Weight Management Services Bariatric Surgery Follow-Up Session Number: Session IV (6 months s/p VSG) Session Date: 11/03/21 Patient: Maria Del Carmen Ray Date of : 1975 (46 year old) PCP Physician: No primary care provider on file. Referring Physician: Kelly/Roxana NUTRITION ASSESSMENT Primary Diagnoses/Co-morbidities: Obesity Secondary Diagnoses/Co-morbidities: Hypertension (GERD) Have you seen a dietitian?: Yes Pertinent Labs: reviewed- iron sat 15% Pertinent Medications: reviewed Current V/M Supplements: CS BID, 600 mg calcium citrate BID, Vitron C daily Eating History Are you following [...] the meals?: Self Exercise Type of exercise?: Walking;Active Job How many times do you exercise each week?: 5 Weight History Height: 5' 3 (160 cm) Initial Program Weight: 255.6#?BMI: 45.28 Current Weight: 183 lb 6.4 oz (83.2 kg) Weight Method (Utilize Scales): Standing BMI (Calculated): 32.5 Has your weight changed since last visit?: Loss # (10.6#) Total Program Weight Loss: 72.2# Pt seen for nutrition f/u. Pt is 6 months s/p VSG by Dr. Mendoza. Pt's weight is down 10.6# since last visit, down 72.2# since beginning program. Pt reports has constipation and only that helps isenema- has tried Benefiber. Pt reports drinking adequate fluids and walking at work. Pt reports keeping portions <1 c per meal. Reviewed food recall and vitamins. 24 Hour Food Recall (Current) Breakfast - boiled egg or Ensure Max shake Lunch - 1 c Chicken/veg Dinner - fish, veg Snacks - none Beverages - 1 gal water, occasional SF juice, unsweet iced tea NUTRITION DIAGNOSIS Diagnosis: Overweight/obesity Related to: (hx excessive kcal intake) As evidenced by: BMI 32.49. NUTRITION INTERVENTION Interventions: Motivational interviewing;Goal setting;Self-monitoring;Problem solving;Recommended modifications;Collaboration with other providers Reviewed healthy balance diet for weight loss using protein shakes. Reviewed the foster bariatric diet principles. Further instruction provided for phases of bariatric diet. Reinforced behavior changes for bariatric diet such as no straws and smaller plate. Explained importance of continued bariatric vitamin/mineral and protein supplementation. Pt v/u. Pt is overall doing well. Reviewed phase IV foods, portion sizes, max intake of 1 c/meal, limit CHOs to <1/2 c/day and reinforced introducing new foods one at a time to assess tolerance. Reinforced importance of 60+ g protein/day and 64+ oz low kcal, sugar-free, decaf, non-carbonated fluids/day.Reviewed mindful eating techniques. Reinforced not eating and drinking at same time. Reinforced impo rtance of bariatric MV or MV BID and 500 mg calcium citrate BID at least an hour apart from MV per ASMBS guidelines to prevent nutritional deficiencies. Reinforced physical activity of 150+ minutes weekly to promote weight loss and for cardiovascular benefits. Pt v/u and agreeable to f/u at 1 year post op. External Barriers to Change: constipation NUTRITION MONITORING/EVALUATION Nutrient Needs: Goals: Nutrition Goal #1: 60 g protein daily Nutrition Goal #2: 64+ [...] Adherence: Often Demonstrated Session Information Session Date: 11/03/21 Session beginning time: 1239 Session ending time: 1247 Session total minutes: 8 Minutes Teaching Method: Explanation;Demonstration;Teach Back Next visit: (1 year post op) Total MNT minutes this calendar year: 240 Nutritional Review ?? Cleared, additional RD visits required pre-op ___ ?? Cleared, no additional RD visits required pre-op ___ ?? Not cleared, additional RD visit(s) required pre-op ___ ?? Continue with post op RD visits per protocol _X__ Jerrica Whitaker RD/LDN E EXAMINER documented in this encounter Plan of Treatment Upcoming Encounters Date Type Department Care Team (Late st Contact Info) Description 03/15/2025 10:00 AM CDT Office Visit [facility] Weight Management Services [address] [place] [phone] Vianey Llanes APRN-CLEANING MATRON [address] [place] [address] 03/15/2025 10:30 AM CDT Clinical Support [facility] Weight Management Services [address] [place] [phone] documented as of this encounter Visit Diagnoses Diagnosis S/P laparoscopic sleeve gastrectomy- Primary documented in this encounter
--- OUTSIDE RECORDS SUMMARY | 2024-11-04 22:59 | XMS_ITS | Encounter Summary ---
Author Organization [facility] Health Address [address] [place] [address] Care Team Providers Care Intake Specialist Name Role Phone Unavailable Primary Care Provider Unavailabl e Reason for Visit * Reason Onset Date Comments Nutrition Counseling 03/26/2021 phase II Encounter Details Date Type Department Care Team (Late st Contact Info) Description 03/26/2021 Telephone [facility] Weight Management Services [address] [place] [address] Rehan Mendoza MD [address] [place] [phone] Nutrition Counseling (phase II) Social History Tobacco Use Types Packs/Day Years Used Date Smoking Tobacco: Former Cigarettes Q uit: 06/2020 Smokeless Tobacco: Never Alcohol Use Standard Drinks/Week Comments Not Currently 14 (1 standard drink = 0.6 oz pu re alcohol) Sex and Gender Information Value Date Recorded Sex Assigned at Female 11/25/2020 1:10 PM ROUTE MANAGER Gender Identity Female 11/25/2020 1:10 PM ROUTE MANAGER Sexual Orientation Straight 02/02/2021 4: 18 [...] encounter Miscellaneous Notes * Telephone Encounter - Sasha Pineda RD/SIN - 03/26/2021 11:22 AM CDT Weight Management Services PC to pt regarding VM left. Pt is ready to begin phase II and reports doing well with protein and fluids. Pt had questions regarding vitamins. Pt is ready to begin phase II. Reviewed phase II foods, portion sizes, max intake of 1/2 c/meal, limit CHOs to <1/4 c/day and reinforced introducing new foods one at a time to assess tolerance. Reinforced importance of 2 protein shakes daily as meals to meet nutrition needs and promote weight loss. Recommended pt begin chewable MV BID and 500 mg calcium citrate BID at least an hour apart from MV per ASMBS guidelines. Recommended gradually increasing physical activity to 150+ minutes weekly to promote weight loss and for cardiovascular benefits. Pt v/u. documented in this encounter Plan of Treatment Upcoming Encounters Date Type Department Care Team (Late st Contact Info) Description 03/15/2025 10:00 AM CDT Office Visit [facility] Health Weight Management Services [address] [place] [phone] Vianey Llanes, APPRENTICE PHOTOGRAPHER-COMPUTER FORENSIC EXAMINER [address], [place] [address] 03/15/2025 10:30 AM CDT Clinical Support [facility] Health Weight Management Services [address] [place] [phone] documented as of this encounter Visit Diagnoses Not on filedocumented in this encounter
--- OUTSIDE RECORDS SUMMARY | 2024-11-04 22:59 | XMS_ITS | Encounter Summary ---
Author Organization [facility] Health Address [address] [facility] [place] [address] Care Team Providers Care Float Remover Name Role Phone Unavailable Primary Care Provider Unavailabl e Reason for Visit * Reason Onset Date Comments Nutrition Counseling 04/28/2021 Encounter Details Date Type Department Care Team (Late st Contact Info) Description 04/28/2021 Telephone [facility] Weight Management Services [address] [place] [phone] Le Carvajal, BARBY/LD Nutrition Counseling Social History Tobacco Use Types Packs/Day Years Used Date Smoking Tobacco: Former Cigarettes Q uit: 06/2020 Smokeless Tobacco: Never Alcohol Use Standard Drinks/Week Comments Not Currently 14 (1 standard drink = 0.6 oz pu re alcohol) Sex and Gender Information Value Date Recorded Sex Assigned at Female 11/25/2020 1:10 PM PELLETIZER Gender Identity Female 11/25/2020 1:10 PM PELLETIZER Sexual Orientation Straight 02/02/2021 4: 18 PM [...] encounter Miscellaneous Notes * Telephone Encounter - Le Carvajal RD/MOISÉS - 04/28/2021 3:05 PM CDT Incoming PC from pt. Pt reports was in hospital for diverticulitis and is on a clear liquid diet. Pt wondering if she can have shakes and mix a banana with a protein shake. Reviewed that if pt is on a clear liquid diet, then we would not recommend full shakes. Reviewed that pt may use protein valverde. Reviewed options and where to purchase. Pt v/u and encouraged pt call with further questions. documented in this encounter Plan of Treatment Upcoming Encounters Date Type Department Care Team (Late st Contact Info) Description 03/15/2025 10:00 AM CDT Office Visit [facility] Weight Management Services [address] [place] [phone] Vianey Llanes, CORE SHAPER SIDES-PARADI OPERATOR [address] [place] [address] 03/15/2025 10:30 AM CDT Clinical Support [facility] Weight Management Services [address] [place] [phone] documented as of this encounter Visit Diagnoses Not on filedocumented in this encounter
--- OUTSIDE RECORDS SUMMARY | 2024-11-04 22:59 | XMS_ITS | Encounter Summary ---
Author Organization [facility] Health Address [address] [facility] [place] [address] Care Team Providers Care Animal Cruelty Investigator Name Role Phone Unavailable Primary Care Provider Unavailabl e Reason for Visit * Reason Onset Date Comments Referral 11/22/2022 Encounter Details Date Type Department Care Team (Late st Contact Info) Description 11/22/2022 Telephone [facility] Weight Management Services [address] [place] [phone] Raisa Schmidt MD [address] [place] [phone] Referral Social History Tobacco Use Types Packs/Day Years Used Date Smoking Tobacco: Former Cigarettes Q uit: 06/2020 Smokeless Tobacco: Never Alcohol Use Standard Drinks/Week Comments Yes 14 (1 standard drink = 0.6 oz pu re alcohol) occ wine Sex and Gender Information Value Date Recorded Sex Assigned at Female 11/25/2020 1:10 PM ENGINEER FISHING VESSEL Gender Identity Female 11/25/2020 1:10 PM ENGINEER FISHING VESSEL Sexual Orientation Straight 02/02/2021 4: 18 PM [...] Telephone Encounter - Cris Bundy LPN - 11/23/2022 2:44 PM ENGINEER FISHING VESSEL Patient would like derm referral made to Beti Ramos NP. Records faxed to [phone] that officewill call patient to schedule appt. Patient will call our office if she does not hear from that office. NEER FISHING VESSEL * Telephone Encounter - Cris Bundy LPN - 11/23/2022 1:36 PM ENGINEER FISHING VESSEL [employer] NEER FISHING VESSEL * Telephone Encounter - Cris Bundy LPN - 11/22/2022 9:30 AM ENGINEER FISHING VESSEL No answer and unable to leave voicemail. Cole Martint message sent to patient. NEER FISHING VESSEL documented in this encounter Plan of Treatment Upcoming Encounters Date Type Department Care Team (Late st Contact Info) Description 03/15/2025 10:00 AM CDT Office Visit [facility] Weight Management Services [address] [place] [phone] Vianey Llanes, YARD HOSTLER-CHIP DRIER [address], [place] [address] 03/15/2025 10:30 AM CDT Clinical Support [facility] Weight Management Services [address] [place] [phone] documented as of this encounter Visit Diagnoses Diagnosis Excessive and redundant skin and subcutaneous tissue- Primary Abdominal pannus Localized adiposity documented in this encounter
--- OUTSIDE RECORDS SUMMARY | 2024-11-04 22:59 | XMS_ITS | Encounter Summary ---
Author Organization [facility] Health Address [address] [place] [address] Care Team Providers Care Mechanical Manufacturing Technician Name Role Phone Cass Mast Primary Care Provider [phone] Encounter Details Date Type Department Care Team (Late st Contact Info) Description 01/13/2023 9:30 AM PLASTIC TUBING INSULATION SUPERVISOR Video Visit [facility] Weight Management Services [address] [place] [address] Raisa Schmidt MD [address] [place] [phone] Maia Kennedy, SOLE TIER-TOURIST INFORMATION OFFICER [address] [place] [address] History of smoking ; S/P laparoscopic sleeve gastrectomy Social History Tobacco [...] Sex Assigned at Female 11/25/2020 1:10 PM PLASTIC TUBING INSULATION SUPERVISOR Gender Identity Female 11/25/2020 1:10 PM PLASTIC TUBING INSULATION SUPERVISOR Sexual Orientation Straight 02/02/2021 4: 18 PM CDT COVID-19 Exposure Response Date Recorded In the last 10 days, have yo u been in contact with someone who was confirmed or suspected to have Coronavirus/COVID-19? No / Unsure 12/30/2022 10:11 AM PLASTIC TUBING INSULATION SUPERVISOR documented as of this encounter Last Filed Vital Signs Vital Sign Reading Time Taken Comments Blood Pressure - - Pulse - - Temperature - - Respiratory Rate - - Oxygen Saturation - - Inhaled Oxygen Concentration - - Weight 72.9 kg (160 lb 12.8 oz) 01/13/2023 9:00 AM PLASTIC TUBING INSULATION SUPERVISOR Height 160 cm (5' 3 ) 01/13/2023 9:00 AM PLASTIC TUBING INSULATION SUPERVISOR Body Mass Index 28.48 01/13/2023 9:00 AM PLASTIC TUBING INSULATION SUPERVISOR documented in this encounter Functional Status Functional [...] this encounter Progress Notes * Maia Kennedy, BURT-TOURIST INFORMATION OFFICER - 01/13/2023 9:21 AM CST [facility] Health Weight Management Services at [address] [address] . . Date of encounter: No admission date for patient encounter. Pt Name: Maria Del Carmen Ray : 1975 AGE: [age] year old SEX: female CSN: [id number] Visit type: Weight Management Follow Up Patients [...] laparoscopic sleeve gastrectomy done 03/09/[address] Mendoza.?Patient has lost 92.6 lb following sleeve gastrectomy. ??She continues losing weight.??She lost an additional 4 lb since last visit. ??Because of significant weight loss she has developed an overhanging pannus. ??She reports skin breakdown and rashes within her skin folds. ??She is using nystatin cream and powder for this. ??She desires panniculectomy. presents to the clinic 1 year 10 months following sleeve gastrectomy. she was seen in clinic last on 12/23/22. Patient is taking 60 grams of proteins supplements daily. Patient is taking 64+ ounces of fluid per day. Doing 30 minutes of exercise 3 days per week. Patient is taking Bariatric multivitamins. Patient is not having Reflux, Vomiting, Dysphagia, Abdominal Pain and Cough, The patient is not having any pain.. Bowel movement are Abnormal due to constipation. Constipation protocol discussed with pt. Has the patient been readmitted to the [...] Loss since last visit in lbs : 4lb Total Wt Loss in lb: 92.6 lb 01/13/2023 Weight: 72.9 kg (160 lb 12.8 oz) BMI (Calculated): 28.49 Weight Loss since last visit in lbs : 2.2 lb Total Wt Loss in lb: 94.8 lb Obesity History Years at current weight? 13 Years at 35 pounds overweight? 13 Years 100 pounds overweight? Age patient started to diet? 41 Maximum weight reached? 255 Most significant weight loss: Amount of weight loss 20lb Months weight loss sustained 2 months Method of weight loss phentermine BMI: Body mass index is 28.48 kg/m??. Past Medical History: Diagnosis Date ??? GERD (gastroesophageal reflux disease) ??? HTN (hypertension) ??? Morbid obesity (CMS/HCC) 03/09/2021 Past Surgical History: Procedure Laterality Date ??? Appendectomy 03/1999 ??? ENDOSCOPY, UPPER ??? ENDOSCOPY, UPPER N/A 02/02/2021 N/A; ESOPHAGOGASTRODUODENOSCOPY WITH BIOPSY ??? ENDOSCOPY, UPPER 02/23/2021 ESOPHAGOGASTRODUODENOSCOPY WITH BIOPSY ??? ENDOSCOPY, UPPER N/A 12/08/2022 N/A; ESOPHAGOGASTRODUODENOSCOPY with BIOPSY ??? Gastrectomy N/A 03/09/2021 N/A; LAPAROSCOPIC [...] Types: Cigarettes Quit date: 06/2020 Years since quittin.6 ??? Smokeless tobacco: Never Vaping Use ??? Vaping Use: Never used Substance and Sexual Activity ??? Alcohol use: Yes Comment: occ wine ??? Drug use: Never [...] Outpatient Medications Marked as Taking for the 01/13/23 encounter (Video Visit) with Maia Kennedy APRN-CNP Medication Sig ??? CALCIUM CITRATE PO ??? Ferrous Sulfate (IRON PO) ??? Multiple Vitamins-Minerals (CENTRUM SILVER PO) ??? nystatin (MYCOSTATIN) 109300 UNIT/GM cream Apply to affected area 2 times daily ??? vitamin D, ergocalciferol, (Drisdol) 1.25 MG (28380 UT) capsule Take 1 (one) capsule by mouth every 7 days Reasons: Vitamin D Deficiency (Not in a hospital admission) Allergy: Allergies Allergen Reactions ??? Amoxicillin Rash and Unknown ROS: A comprehensive review of systems was negative except as described in HPI. Objective: Ht 1.6 m (5' 3 ) Wt 72.9 kg (160 lb 12.8 oz) Weight: 72.9 kg (160 lb 12.8 oz) Height: 160 cm (5' 3 ) Body mass index is 28.48 kg/m??. Unable to complete physical assessment due to telemedicine visit. Constitutional: Alert, awake and oriented without any apparent discomfort. Eyes: Neck Exam: Respiratory: Cardiovascular: Abdomen: Skin: Extremities: Neurological: Psychiatric: The patient's mood and affect appeared [...] LDL, HDL, TRIG, TSH in the last 17535 hours. No results for input(s): HGBA1C in the last 83854 hours. No results for input(s): PT, PTT, INR, TSH in the last 19893 hours. No results for input(s): TSH in the last 49312 hours. Recent Labs Component Name 12/30/22 1030 IRON 98 No results for input(s): IGIJVRMA30 in the last 12045 hours. No results for input(s): VITAMINA in the last 38511 hours. Recent Labs Component Name 12/30/22 1030 IRON 98 No results for input(s): VITK1 in the last 86053 hours. No results for input(s): MYLENICZ10CN in the last 68108 hours. No results for input(s): ALPHATOCOPH in the last 21448 hours. No results for input(s): GAMMATOCOPH in the last 77531 hours. No results for input(s): MAGMGDL in the last 20348 hours. Recent Labs Component Name 03/10/21 0413 PHOS 2.5 Some lab results will be in paper format so may be scanned in the EMR. Imaging studies No results found. Some Imaging studies results will be in paper format so may be scanned in the EMR. Assessment and Plan Overweight : Change in weight as noted in the weight history above. Total weight loss since starting the program:94.8 pounds Current BMI Body mass index is 28.48 kg/m??. with weight of Weight: 72.9 kg (160 lb 12.8 oz) . Surgery : s/p: Laparoscopic Sleeve Gastrectomy. Date of surgery??03/09/2021??@ [facility] by??Dr. Mendoza. ? Patient is losing weight. ??Patient is controlling Carbs and Sugar well. Controlling portions well. ?? Patient was recommended to take about 80 g of protein per day, and get involved in an exercise plan. The patient is also recommended to attend support group meetings.I also explained to??her??that she??should take 2 adult multivitamin tablets, and 1500 mg of calcium citrate and B12 supplementation 1000 mcg daily, starting 1 week after surgery. Patient was made aware of the nutrition deficiency should she??fail to take supplementation. ?? History of pyloric ulcer Patient underwent postoperative [...] She is not currently taking antacid medication. ?? Colon cancer screening Last colonoscopy was??08/25/[address] Bailey at [facility] in[facility].?She was recommended repeat colonoscopy in 5 years, 2026. ?? History of??Smoking addiction?? She??stopped smoking??in June 2020.?She denies smoking at this time.?Explained to her the risk of development of complications with smoking after bariatric surgery.?Nicotine test #1negative 12/30/22. Nicotine test #2 ordered in [facility]. ? Vitamin D Deficiency Not on supplementation. ??Last Vitamin D level??normal on labs completed 02/18/2022.?She was noted to have low vitamin D on 12/30/22. She is currently taking vitamin D supplementation per protocol.Plan to recheck vitamin D 05/2023. ?? Hyperparathyroidism Patient was found to have elevated PTH with labs completed 02/18/2022, vitamin-D level normal at that time.?? Patient due for annual labs for follow-up. ?? History of iron deficiency Patient has history of iron deficiency. ??She is on current supplementation. ??Will obtain updated iron labs??with annual labs in 02/2023. ?? Vitamin B1 Patient had low, normal vitamin B1 level on labs completed 02/18/2022. ??B1 normal on 12/30/2022. She is compliant with her multivitamin, centrum Silver 1 tablet twice daily. ? Abdominal pannus Patient has significant abdominal pannus following weight loss after bariatric surgery. ??Patient reports issues with moisture within the skin folds. ??Patient reports fungal issues within the umbilicus. ??Patient keeps the area is clean and dry as possible. ??Patient has use nystatin powder??to help with these issues. Patient is interested in panniculectomy. ??She is an excellent candidate. ??I will refer her to Dermatology to confirm she has exhausted all nonsurgical options. She is scheduledMarch 2022. ??Will also plan to obtain pre-albumin with annual lab work February 2023. ?? Patient would like to be at 160 lb prior to proceeding with surgery. She is currently at 160.8 lb and has been stable here. She has a scheduled appointment with Dr. Gee January 26. Will keep this appointment however the patient has nearly reached her goal. She has also been stable at this weight. Will plan for nurse practitioner follow-up following testing. If patient ready to proceed with surgery thenmay not need follow-up with Dr. Gee. ? I counseled the patient on continuing Behavior [...] least 10 minutes per day. Labs ordered: Nicotine test #2 ordered in [facility]. Plan : as above recommendation. Follow up with: Surgeons / PA/ CARD CUTTER HELPER : 03/2024, she will also have follow up when she is ready to proceed with Panni. Dietitian: as scheduled. Consults: Dr. Gee to optimize weight loss. She is working towards Panni. Today's visit was conducted virtually due to COVID-19 countermeasures. The patient has given verbalconsent to have today's visit conducted by this same means with treatment provided remotely. The patient verbally consents to the billing and collection practices of [facility]. Patient location: Home This encounter was [...] reviewed and updated as documented in Epic. SANGEETHA Jackson TIC TUBING INSULATION SUPERVISOR documented in this encounter Plan of Treatment Upcoming Encounters Date Type Department Care Team (Late st Contact Info) Description 03/15/2025 10:00 AM CDT Office Visit [facility] Weight Management Services [address] [place] [phone] Vianey Llanes APRN-TOURIST INFORMATION OFFICER [address] [place] [address] 03/15/2025 10:30 AM CDT Clinical Support [facility] Weight Management Services [address] [place] [address] documented as of this encounter Visit Diagnoses Diagnosis History of smoking- Primary Personal history of tobacco use, presenting hazards to health S/P laparoscopic sleeve gastrectomy documented in this encounter Care Teams Mechanical Manufacturing Technician Relationship Specialty Start Date End Date Cass Mast PA [address] [place] [address] PCP - General Nurse Practitioner Primary Care 01/13/23 03/15/24 documented as of this encounter
--- OUTSIDE RECORDS SUMMARY | 2024-11-04 22:59 | XMS_ITS | Encounter Summary ---
Author Organization [facility] Health Address [address] [place] [address] Care Team Providers Care Systems Integration Analyst Name Role Phone Unavailable Primary Care Provider Unavailabl e Reason for Visit * Reason Comments Surgical Followup EGD Encounter Details Date Type Department Care Team (Late st Contact Info) Description 12/23/2022 10:[address] SQL DEVELOPER Video Visit [facility] Weight Management Services [address] [place] [phone] Raisa Schmidt MD [address] [place] [phone] Status post laparoscopic sleeve gastrectomy ; Abdominal [...] Assigned at Female 11/25/2020 1:[address] SQL DEVELOPER Gender Identity Female 11/25/2020 1:[address] SQL DEVELOPER Sexual Orientation Straight 02/02/2021 4: 18 PM CDT documented as of this encounter Last Filed Vital Signs Vital Sign Reading Time Taken Comments Blood Pressure - - Pulse - - Temperature - - Respiratory Rate - - Oxygen Saturation - - Inhaled Oxygen Concentration - - Weight 73.9 kg (163 lb) 12/23/2022 10:[address] SQL DEVELOPER Height 160 cm (5' 3 ) 12/23/2022 10:[address] SQL DEVELOPER Body Mass Index 28.87 12/23/2022 10:[address] SQL DEVELOPER documented in this encounter Functional Status Functional [...] Progress Notes * Raisa Schmidt MD - 12/23/2022 10:35 AM CST [facility] Health [place] [address] . . Date of encounter: No admission date for patient encounter. Pt Name: Maria Del Carmen Ray : 1975 AGE: [age] year old SEX: female CSN: [id number] Visit type: Weight Management Follow Up Patients Primary care provider is : Rose Marie Norton APRN-BLAKE Patient Verification & Telemedicine Based Consent I [...] 03/09/[address] Mendoza. Patient has lost 92.6 lb following sleeve gastrectomy. She continues losing weight. She lost an additional 4 lb since last visit. Because of significant weight loss she has developed an overhanging pannus. She reports skin breakdown and rashes within her skin folds. She is using nystatincream and powder for this. She desires panniculectomy. ?? Patient is taking 60 grams of proteins supplements daily. ?? Patient is taking 64 oz of fluid per day. ?? Doing treadmill exercises and walking at work for exercise daily. ?? Patient is taking Bariatric multivitamins. ?? Patient is not having Reflux, Vomiting and Dysphagia, The patient is not having any pain.. She underwent EGD 12/08/22 noting normal duodenum, normal gastric antrum, evidence of sleeve gastrectomy initiated 8 cm proximal to the pylorus with no evidence of tight angulation at the incisura and no retained fundus. She had no hiatal hernia. She had normal Z-line with normal esophagus and normal cords. Antral biopsy showed no histopathologic abnormality. H pylori negative. ?? Bowel movement are Normal. ?? Has the patient been readmitted to the hospital since the last follow up ? No ?? Has the patient had any post bariatric [...] Total Wt Loss in lb: 92.6 lb Obesity History Years at current weight? 13 Years at 35 pounds overweight? 13 Years 100 pounds overweight? Age patient started to diet? 41 Maximum weight reached? 255 Most significant weight loss: Amount of weight loss 20lb Months weight loss sustained 2 months Method of weight loss phentermine BMI: Body mass index is 28.87 kg/m??. Past Medical History: Diagnosis Date ??? [...] Types: Cigarettes Quit date: 06/2020 Years since quittin.5 ??? Smokeless tobacco: Never Vaping Use ??? [...] Outpatient Medications Marked as Taking for the 12/23/22 encounter (Video Visit) with Raisa Schmidt MD Medication Sig ??? CALCIUM CITRATE PO ??? Ferrous Sulfate (IRON PO) ??? Multiple Vitamins-Minerals (CENTRUM SILVER PO) ??? nystatin (MYCOSTATIN) 398568 UNIT/GM cream Apply to affected area 2 times daily (Not in a hospital admission) Allergy: Allergies Allergen Reactions ??? Amoxicillin Rash and Unknown ROS: A comprehensive review of systems was negative except as described in HPI. Objective: Ht 1.6 m (5' 3 ) Wt 73.9 kg (163 lb) Weight: 73.9 kg (163 lb) Height: 160 cm (5' 3 ) Body mass index is 28.87 kg/m??. Constitutional: Alert, awake and oriented without any apparent discomfort. Labs Recent Labs Component Name 03/10/2141203/09/21 1005 [...] LDL, HDL, TRIG, TSH in the last 64848 hours. No results for input(s): HGBA1C in the last 88199 hours. No results for input(s): PT, PTT, INR, TSH in the last 43252 hours. No results for input(s): TSH in the last 55057 hours. No results for input(s): IRON in the last 48824 hours. No results for input(s): [id number] in the last 90525 hours. No results for input(s): VITAMINA in the last 39632 hours. No results for input(s): IRON in the last 27604 hours. No results for input(s): VITK1 in the last 97745 hours. No results for input(s): [id number] in the last 24686 hours. No results for input(s): ALPHATOCOPH in the last 32845 hours. No results for input(s): GAMMATOCOPH in the last 77903 hours. No results for input(s): MAGMGDL in the last 02768 hours. Recent Labs Component Name 03/10/21 0413 PHOS 2.5 Some lab results will be in paper format so may be scanned in the EMR. Imaging studies No results found. Some Imaging studies results will be in paper format so may be scanned in the EMR. Assessment and Plan Overweight: S/P Bariatric Surgery :??s/p: Laparoscopic Sleeve Gastrectomy. Date of surgery??03/09/2021??@ [facility] by??Dr. Mendoza. ?? Change in weight as noted in the weight history above. Total weight loss since starting the program:??92.6??pounds. ? Patient is losing weight. ??Patient is [...] medication. ?? Colon cancer screening Last colonoscopy was 08/25/[address] Bailey at [facility] in[facility]. She was recommended repeat colonoscopy in 5 years, 2026. ?? History of??Smoking addiction?? She??stopped smoking??in June 2020.?She denies smoking at this time.?Explained to her the risk of development of complications with smoking after bariatric surgery.?She will need nicotine testing prior to proceeding with panniculectomy. ? History of??Vitamin D Deficiency Not on supplementation. ??Last Vitamin D level??normal on labs completed 02/18/2022.? Hyperparathyroidism Patient was found to have elevated PTH with labs completed 02/18/2022, vitamin-D level normal at that time. Patient due for annual labs for follow-up. ?? History of iron deficiency Patient has history of iron deficiency. ??She is on current supplementation. ??Will obtain updated iron labs with annual labs in 02/2023. ?? Vitamin B1 Patient had low, normal vitamin B1 level on labs completed 02/18/2022. ??She is compliant with her multivitamin, centrum Silver 1 tablet twice daily. ? Abdominal pannus Patient has significant abdominal pannus following weight loss after bariatric surgery. ??Patient reports issues with moisture within the skin folds. ??Patient reports fungal issues within the umbilicus. ??Patient keeps the area is clean and dry as possible. ??Patient has use nystatin powder to help with these issues. Patient is interested in panniculectomy. She is an excellent candidate. I willrefer her to Dermatology to confirm she has exhausted all nonsurgical options. She is scheduled December 30, 2022. Will also plan to obtain pre- albumin with annual lab work February 2023. patient would like to be at 160 lb prior to proceeding with surgery. She is currently at 163 lb and has been stable here. She has a scheduled appointment with Dr. Gee January 26. Will keep this appointment however the patient has nearly reached her goal. She has also been stable at this weight. Will plan for nurse practitioner follow-up following testing. If patient ready to proceed with surgery then may notneed follow-up with Dr. Gee. ?? I counseled the patient on continuing [...] as documented in Epic. Raisa Schmidt MD OR PL SQL DEVELOPER documented in this encounter Plan of Treatment Upcoming Encounters Date Type Department Care Team (Late st Contact Info) Description 03/15/2025 10:00 AM CDT Office Visit [facility] Health Weight Management Services [address] [place] [phone] Vianey Llanes, SUPPLY PERSON-TECHNICAL DIRECTOR [address] [place] [address] 03/15/2025 10:30 AM CDT Clinical Support [facility] Health Weight Management Services [address] [place] [phone] documented as of this encounter Visit Diagnoses Diagnosis Status post laparoscopic sleeve gastrectomy- Primary Abdominal pannus Localized adiposity documented in this encounter
--- OUTSIDE RECORDS SUMMARY | 2024-11-04 22:59 | XMS_ITS | Encounter Summary ---
Author Organization [facility] Health Address [address] [place] [address] Care Team Providers Care Hotel Associate Name Role Phone Cass Mast Primary Care Provider [phone] Reason for Visit * Reason Onset Date Comments General 03/22/2023 Encounter Details Date Type Department Care Team (Late st Contact Info) Description 03/22/2023 Telephone [facility] Weight Management Services [address] [place] [address] Raisa Schmidt MD [address] [place] [address] General Social History Tobacco Use [...] Sex Assigned at Female 11/25/2020 1:10 PM METAL TRIMMER Gender Identity Female 11/25/2020 1:10 PM METAL TRIMMER Sexual Orientation Straight 02/02/2021 4: 18 PM [...] encounter Miscellaneous Notes * Telephone Encounter - Chantelle Patricia CNA - 03/22/2023 1:12 PM CDT Patient called to report she is getting her labs drawn today. documented in this encounter Plan of Treatment Upcoming Encounters Date Type Department Care Team (Late st Contact Info) Description 03/15/2025 10:00 AM CDT Office Visit [facility] Health Weight Management Services [address] [place] [phone] Vianey Llanes, COMMODITY MERCHANT-LOG DATA TECHNICIAN [address] [place] [address] 03/15/2025 10:30 AM CDT Clinical Support [facility] Health Weight Management Services [address] [place] [address] documented as of this encounter Visit Diagnoses Not on filedocumented in this encounter Care Teams Hotel Associate Relationship Specialty Start Date End Date Cass Mast PA [address] [place] [address] PCP - General Nurse Practitioner Primary Care 01/13/23 03/15/24 documented as of this encounter
--- OUTSIDE RECORDS SUMMARY | 2024-11-04 22:59 | XMS_ITS | Encounter Summary ---
Author Organization [facility] Address [address] [place] [address] Care Team Providers Care Group Tester Name Role Phone Unavailable Primary Care Provider [...] Expiration Date Visits Re quested Visits Authorized [id number] 1 1 Encounter Details Date Type Department Care Team (Latest Contact Info) Description 12/08/2022 9:00 AM MEDIA RELATIONS ASSOCIATE - 12/08/2022 9:13 AM MEDIA RELATIONS ASSOCIATE Surgery [facility] [address] [place], [place] [address] Raisa Schmidt MD [address] [place] [address] ESOPHAGOGASTRODUODENOSCOPY with BIOPSY Surgery Details Date/Time Status Location OR Service Patient Class Case Class Case Type Trauma Case? 12/08/2022 9:00 AM Posted [facility] MAIN OR OR 2 Gastroenterology Surgery Day Care Elective > 5 days Panel 1 Procedure LRB Anes Op Region Wound Class Comments ESOPHAGOGASTRODUODENOSCOPY with BIOPSY N/A [facility] Surgeon Surgeon Role Service Panel Raisa Schmidt MD Primary Gastroenterolog y 1 Special Needs Arrival time:07 documented in this encounter Social History Tobacco [...] Sex Assigned at Female 11/25/2020 1:10 PM MEDIA RELATIONS ASSOCIATE Gender Identity Female 11/25/2020 1:10 PM MEDIA RELATIONS ASSOCIATE Sexual Orientation Straight 02/02/2021 4: 18 PM CDT documented as of this encounter Last Filed Vital Signs Vital Sign Reading Time Taken Comments Blood Pressure 139/87 12/08/2022 7:37 AM MEDIA RELATIONS ASSOCIATE Pulse 68 12/08/2022 7:37 AM MEDIA RELATIONS ASSOCIATE Temperature 36.8 ??C (98.2 ??F) 12/08/2022 7:37 AM CS T Respiratory Rate 16 12/08/2022 7:37 AM MEDIA RELATIONS ASSOCIATE Oxygen Saturation 100% 12/08/2022 7:37 AM MEDIA RELATIONS ASSOCIATE Inhaled Oxygen Concentration - - Weight 74.8 kg (164 lb 14.5 oz) 12/08/2022 7:37 AM MEDIA RELATIONS ASSOCIATE Height 154.9 cm (5' 1 ) 12/08/2022 7:37 AM MEDIA RELATIONS ASSOCIATE Body Mass Index 31.16 12/08/2022 7:37 AM MEDIA RELATIONS ASSOCIATE documented in this encounter Functional Status Functional [...] Multiple Vitamins-Minerals (CENTRUM SILVER PO) nystatin (MYCOSTATIN) 506913 UNIT/GM cream Apply to affected area 2 [...] prior H&P was completed. Raisa Schmidt MD A RELATIONS ASSOCIATE Source Note - Raisa Schmidt MD - 11/11/2022 9:49 AM MEDIA RELATIONS ASSOCIATE [facility] [place] [address] . . Date of encounter: No admission date for patient encounter. Pt Name: Maria Del Carmen Ray : 1975 AGE: [age] year old SEX: female CSN: [id number] Visit type: Weight Management Follow Up Patients [...] Vitamins-Minerals (CENTRUM SILVER PO) ??? nystatin (MYCOSTATIN) 927648 UNIT/GM cream Apply to affected area 2 [...] on video. Labs Recent Labs Component Name 03/10/2141203/09/21 1005 [...] LDL, HDL, TRIG, TSH in the last 28220 hours. No results for input(s): HGBA1C in the last 63377 hours. No results for input(s): PT, PTT, INR, TSH in the last 92584 hours. No results for input(s): TSH in the last 54732 hours. No results for input(s): IRON in the last 93986 hours. No results for input(s): OBGCGSNH15 in the last 11031 hours. No results for input(s): VITAMINA in the last 38681 hours. No results for input(s): IRON in the last 64138 hours. No results for input(s): VITK1 in the last 53661 hours. No results for input(s): FXALLGAB20VG in the last 26162 hours. No results for input(s): ALPHATOCOPH in the last 04146 hours. No results for input(s): GAMMATOCOPH in the last 81789 hours. No results for input(s): MAGMGDL in the last 24609 hours. Recent Labs Component Name 03/10/21 0413 PHOS 2.5 Some lab results will be in paper format so may be scanned in the EMR. Imaging studies No results found. Some Imaging studies results will be in paper format so may be scanned in the EMR. Assessment and Plan Overweight: S/P Bariatric Surgery :??s/p: Laparoscopic Sleeve Gastrectomy. Date of surgery??03/09/2021??@ [facility] by??Dr. Mendoza. Change in weight as noted [...] colonoscopy was 08/25/[address] Bailey at [facility] in [facility]. Shewas recommended repeat colonoscopy in 5 years. [...] as documented in Epic. Raisa Schmidt MD A RELATIONS ASSOCIATE documented in this encounter OR Notes * Operative - Raisa Schmidt MD - 12/08/2022 9:00 AM CST Esophagogastroduodenoscopy Procedure Note Date of Surgery: 12/08/22 Surgeon(s) and Role: * Raisa Schmidt MD - Primary Motel Food Service Supervisor: Smiley Rodriguez RN Scrub Person: Jo Blandon [...] Condition: stable Recommendations: -Await pathology., -Follow symptoms. A RELATIONS ASSOCIATE documented in this encounter Plan of Treatment Upcoming Encounters Date Type Department Care Team (Late st Contact Info) Description 03/15/2025 10:00 AM CDT Office Visit [facility] Weight Management Services [address] [place] [phone] Vianey Llanes, TROUBLE DISPATCHER-MACHINING MANAGER [address], [place] [phone] 03/15/2025 10:30 AM CDT Clinical Support [facility] Weight Management Services [address] [place] [phone] Scheduled Orders Name Type Priority Associated Diagnoses Orde r Schedule EGD GI Routine ONCE for 1 Occ urrences starting 12/08/2022 until 12/08/2022 documented as of this encounter Procedures Procedure Name Priority Date/Time Associated Diagnosis Comments CARDIAC RHYTHM STRIP ORDER 12/09/2022 12:15 PM MEDIA RELATIONS ASSOCIATE GROSS + MICRO EXAM (ILL) Routine 12/08/2022 9:16 AM MEDIA RELATIONS ASSOCIATE Gastroesophageal reflux disease, unspecified whether esophagitis present S/P bariatric surgery SD EGD FLEX TRANSORAL W BX SNGL OR MULT 12/08/2022 9:08 AM MEDIA RELATIONS ASSOCIATE Gastroesophageal reflux disease, unspecified whether esophagitis present S/P bariatric surgery Special Needs Arrival time:0730 documented in this encounter Results * CARDIAC RHYTHM STRIP ORDER (12/09/2022 12:15 PM MEDIA RELATIONS ASSOCIATE) Narrative 12/09/2022 12:15 PM MEDIA RELATIONS ASSOCIATE Ordered by an unspecified provider. Scanned Document CARDIAC SERVICES ORD ERABLES * GROSS + MICRO EXAM (ILL) (12/08/2022 9:16 AM MEDIA RELATIONS ASSOCIATE) Case Report Surgical Pathology Report ? Case: [id number] ? Authorizing Provider: ??Raisa Schmidt MD ??Collected: ? 12/08/2022 09:16 AM ? Ordering Location: ? [facility] ?Received: ?12/08/2022 02:21 PM ? Pathologist: ? Chuckie Lujan MD ? Specimen: ?Antrum Biopsy, Antrum Biopsy to rule out H. pylori ? 12/09/2022 11:00 AM [facility] Final Diagnosis Stomach, antrum, biopsy: - Fragments of antral mucosa with no histopathologic abnormality - No Helicobacter pylori organisms identified (H&E exam) 12/09/2022 11:00 AM [facility] Microscopic Description and Comment Microscopic examination is performed and substantiates the above diagnosis. 12/09/2022 11:00 AM [facility] Clinical History Gastroesophageal reflux disease, status post bariatric surgery Findings: - normal duodenum -normal gastric antrum -evidence of sleeve gastrectomy initiated 8 cm proximal to the pylorus with no evidence of tight angulation at the incisura and no retained fundus -no hiatal hernia -normal Z-line -normal esophagus -normal cords 12/09/2022 11:00 AM [facility] Gross Description The requisition and specimen(s) are identified with the patient's name (Maria Del Carmen Ray), MRN, and . Received in formalin, specimen antrum biopsy to rule out H. Pylori , are 2 crow-pink tissues, 0.4 x 0.3 x 0.1 cm and 0.8 x 0.2 x 0.1 cm. The specimen is submitted in toto in cassette A1. AW 12/09/2022 11:00 AM [facility] Disclaimer The performance characteristics of all immunohistochemical and indirect immunofluorescence stains (if any) cited in this report were determined by the Histopathology Laboratory of [facility]. Some of these tests were developed [...] H&E slides and special stains prepared at [facility], [place]. [address] (CLIA# [id number]) unless otherwise specified. This case was interpreted by the [facility] Department of Pathology. When applicable, select reference laboratory testing is performed at the [facility], [address] [place] [address]. 12/09/2022 11:00 AM [facility] Embedded Images 12/09/2022 11:00 AM [facility] Pathology/Cytology GASTRIC ANTRAL BIOPSY SPECIMEN / Unknown 12/08/2022 9:16 AM MEDIA RELATIONS ASSOCIATE 12/08/2022 2:21 PM MEDIA RELATIONS ASSOCIATE Comment:Pre-op diagnosis: Gastroesophageal reflux disease, unspecified whether esophagitis present [K21.9] S/P bariatric surgery [Z98.84] Raisa Schmidt MD LAB - PATHOLOGY/ CYTOLOGY ORDERABLES [facility] [address] [place], [place] [phone] [place] [address] documented in this encounter Visit Diagnoses Diagnosis Gastroesophageal reflux disease, unspecified whether esophagitis present S/P bariatric surgery Bariatric surgery status Gastroesophageal reflux disease, unspecified whether esophagitis present [...] minutes., Pre-op $ Given 12/08/2022 7:43 AM MEDIA RELATIONS ASSOCIATE 20 mg lactated ringers infusion at 75 mL/hr, Intravenous, PRE-OP CONTINUOUS, Starting on Tue12/08/22 at 0730, Until Tue12/08/22 at 1114 $ New Bag/Syringe 12/08/2022 7:42 AM MEDIA RELATIONS ASSOCIATE 75 mL/hr documented in this encounter Active and Recently Administered Medications Times are shown in MEDIA RELATIONS ASSOCIATE. Scheduled Medication Order 12/06/2022 12/07/2022 12/08/2022 0.9% [...]
--- OUTSIDE RECORDS SUMMARY | 2024-11-04 22:59 | XMS_ITS | Encounter Summary ---
Author Organization [facility] Health Address [address] [place] [address] Care Team Providers Care Supply Specialist Name Role Phone Unavailable Primary Care Provider Unavailabl e Reason for Visit * Reason Onset Date Comments Results 01/03/2023 Vit D Encounter Details Date Type Department Care Team (Late st Contact Info) Description 01/03/2023 Telephone [facility] Weight Management Services [address] [place] [phone] Vianey Llanes, HYPERION ANALYST-DRY ROOM ATTENDANT [address] [place] [address] Results (Vit D ) Social History Tobacco Use Types Packs/Day Years [...] Sex Assigned at Female 11/25/2020 1:10 PM MEDICAL INSTRUMENT TECHNICIAN Gender Identity Female 11/25/2020 1:10 PM MEDICAL INSTRUMENT TECHNICIAN Sexual Orientation Straight 02/02/2021 4: 18 PM CDT COVID-19 Exposure Response Date Recorded In the last 10 days, have yo u been in contact with someone who was confirmed or suspected to have Coronavirus/COVID-19? No / Unsure 12/30/2022 10:11 AM MEDICAL INSTRUMENT TECHNICIAN documented as of this encounter Functional Status [...] Telephone Encounter - Lesley Harkins LPN - 01/03/2023 9:10 AM MEDICAL INSTRUMENT TECHNICIAN Pt called office and voices she had questions regarding her labs. Vit D low. Supplement explained and script sent to pharmacy. Vit D lab order placed and pt v/u. CAL INSTRUMENT TECHNICIAN * Telephone Encounter - Lesley Harkins LPN - 01/03/2023 9:10 AM MEDICAL INSTRUMENT TECHNICIAN ----- Message from SANGEETHA Grigsby sent at 12/30/2022 3:02 PM MEDICAL INSTRUMENT TECHNICIAN ----- Patient needs Vitamin D replaced per protocol CAL INSTRUMENT TECHNICIAN documented in this encounter Plan of Treatment Upcoming Encounters Date Type Department Care Team (Late st Contact Info) Description 03/15/2025 10:00 AM CDT Office Visit [facility] Health Weight Management Services [address] [place] [address] Vianey Llanes APRN-CNP [address] [place] [address] 03/15/2025 10:30 AM CDT Clinical Support [facility] Health Weight Management Services [address] [place] [address] Scheduled Orders Name Type Priority Associated Diagnoses Orde r Schedule VITAMIN D 25-HYDROXY Lab Routine Vitamin D deficiency Expected: 05/03/2023 (Approximate), Expires: 01/03/2024 documented as of this encounter Visit Diagnoses Diagnosis Vitamin D deficiency- Primary documented in this encounter
--- OUTSIDE RECORDS SUMMARY | 2024-11-04 22:59 | XMS_ITS | Encounter Summary ---
Author Organization 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); Vitamin B1 deficiency Social History Tobacco Use Types Packs/Day Years Used Date Smoking Tobacco: Former Cigarettes Q uit: 06/2020 Smokeless Tobacco: Never Alcohol Use Standard Drinks/Week Comments Yes 14 (1 standard drink = 0.6 oz pu re alcohol) occ wine Sex and Gender Information Value Date Recorded Sex Assigned at Female 11/25/2020 1:10 PM ASSEMBLER PLASTIC BOAT Gender Identity Female 11/25/2020 1:10 PM ASSEMBLER PLASTIC BOAT Sexual Orientation Straight 02/02/2021 4: 18 PM [...] [facility] Weight Management Services [address] [place] [phone] Vianey Llanes, DIRECTOR OUTPATIENT SERVICES-SURFBOARD DESIGNER [address], [place] [phone] 03/15/2025 10:30 AM CDT Clinical Support [facility] Weight Management Services [address] [place] [phone] documented as of this encounter Procedures Procedure Name Priority Date/Time Associated Diagnosis Comments PTH INTACT+CALCIUM Routine 12/30/2022 10 :30 AM ASSEMBLER PLASTIC BOAT Vitamin D deficiency 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) VITAMIN B1 Routine 12/30/2022 10:30 AM ASSEMBLER PLASTIC BOAT S/P laparoscopic sleeve gastrectomy Vitamin B1 deficiency VITAMIN D 25-HYDROXY Routine 12/30/2022 10:30 AM ASSEMBLER PLASTIC BOAT Vitamin D deficiency 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 Approximately 90 percent of vitamin B1 present in whole blood is TDP. Thiamine and thiamine monophosphate, which comprise the remaining 10 percent, are not measured. This test was developed and its performance characteristics determined by [facility] [email or web address]. It has not been cleared or approved by the US Food and Drug Administration. This test was performed in a CLIA certified laboratory and is intended for clinical purposes. Performed By: [place] [address] Nutritional Services Host: Zach Bello MD, PhD Blood BLOOD SPECIMEN / Unknown Lab Venipuncture / Unknown 12/30/2022 10:30 AM ASSEMBLER PLASTIC BOAT 12/30/2022 10:41 AM ASSEMBLER PLASTIC BOAT Vianey Llanes [facility] - CHEMISTRY ORDERABLES Performing Organization Address [facility]/ZIP Co de Phone Number [address] * (ABNORMAL) PTH INTACT+CALCIUM (12/30/2022 10:30 AM ASSEMBLER PLASTIC BOAT) PTH Intact 39 15 - 65 pg/mL 01/01/2023 1:23 PM ASSEMBLER PLASTIC BOAT [facility]) Calcium 10.1(H) 8.6 - 10.0 mg/dL 01/01/2023 1:23 PM ASSEMBLER PLASTIC BOAT [facility]) Comment: Performed By: [facility] [email or web address] [address] [place] [address] Nutritional Services Host: Zach Bello MD, PhD Blood BLOOD SPECIMEN / Unknown Lab Venipuncture / Unknown 12/30/2022 10:30 AM ASSEMBLER PLASTIC BOAT 12/30/2022 10:41 AM ASSEMBLER PLASTIC BOAT Vianey Llanes [facility] - CHEMISTRY ORDERABLES Performing Organization Address City/[facility]/ZIP Co de Phone Number [facility]) [address] [place] [address] * (ABNORMAL) VITAMIN D 25-HYDROXY (12/30/2022 10:30 AM ASSEMBLER PLASTIC BOAT) Vitamin D, 25 Hydroxy 28.2(L) 30 - 100 ng/mL 12/30/2022 11:22 AM ASSEMBLER PLASTIC BOAT [facility] Blood BLOOD SPECIMEN / Unknown Lab Venipuncture / Unknown 12/30/2022 10:30 AM [facility] 12/30/2022 10:41 AM [facility] Narrative [facility] - 12/30/2022 11:22 AM [facility] Reference Values: The recommendation for 25-Hydroxy [...] performed to confirm the result. Vianey Llanes APRN-[facility] LAB - CHEMISTRY ORDERABLES Performing Organization Address [facility] de Phone Number [facility] [address] * IRON + TRANSFERRIN PANEL (12/30/2022 10:30 AM [facility]) Iron 98 50 - 170 ug/dL 12/30/2022 11:08 AM [facility] Transferrin 275 180 - 382 mg/dL 12/30/2022 11:08 AM [facility] TIBC Calculated 344 261 - 497 ug/dL 12/30/2022 11:08 AM [facility] Iron Saturation % 29 11 - 45 % 12/30/2022 11:08 AM [facility] Blood BLOOD SPECIMEN / Unknown Lab Venipuncture / Unknown 12/30/2022 10:30 AM [facility] 12/30/2022 10:41 AM [facility] Vianey Llanes APRN-[facility] LAB - CHEMISTRY ORDERABLES Performing Organization Address 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
--- OUTSIDE RECORDS SUMMARY | 2024-11-04 22:59 | XMS_ITS | Encounter Summary ---
Author Organization [facility] Address [address] [place] [address] Care Team Providers Care Story Writer Name Role Phone Unavailable Primary Care Provider Unavailabl e Encounter Details Date Type Department Care Team (Late st Contact Info) Description 03/06/2021 6:43 AM CDT - 03/06/2021 11:59 PM CDT Hospital Encounter [facility] [address] [place] [address] Rehan Mendoza MD [address] [place] [phone] Discharge Disposition: Home or Self Care Social History Tobacco Use Types Packs/Day Years Used Date Smoking Tobacco: Former Cigarettes Q uit: 06/2020 Smokeless Tobacco: Never Alcohol Use Standard Drinks/Week Comments Not Currently 14 (1 standard drink = 0.6 oz pu re alcohol) Sex and Gender Information Value Date Recorded Sex Assigned at Female 11/25/2020 1:10 PM PLAN REP Gender Identity Female 11/25/2020 1:10 PM PLAN REP Sexual Orientation Straight 02/02/2021 4: 18 PM CDT COVID-19 Exposure Response Date Recorded In the last month, have you been in contact with someone who was confirmed or suspected to have Coronavirus / COVID-19? No / Unsure 03/06/2021 6:03 AM CDT documented as of this encounter Last Filed Vital Signs Vital Sign Reading Time Taken Comments Blood Pressure 132/88 03/06/2021 6:45 AM CDT Pulse 68 03/06/2021 6:45 AM CDT Temperature - - Respiratory Rate 16 03/06/2021 6:45 AM CDT Oxygen Saturation 100% 03/06/2021 6:45 AM CDT Inhaled Oxygen Concentration - - Weight - - Height 154.9 cm (5' 1 ) 03/06/2021 6:44 AM CDT Body Mass Index - - documented in this encounter Functional Status Functional [...] 24hrs. 12 tablet 02/27/2021 04/10/2021 Probiotic Product (Quemulus) capsuleIndications: Bariatric surgery status Take 1 (one) [...] 05/28/2021 vitamin D, ergocalciferol, (DRISDOL) 1.25 MG (05786 UT) capsuleIndications: Vitamin D Deficiency Take 1 capsule by mouth every 7 days Reasons: Vitamin D Deficiency 4 capsule 3 09/17/2020 03/10/2021 documented as of this encounter Nursing Notes * Ramonita Castro RN - 03/06/2021 7:05 AM CDT Patient's name, date of , surgeon and procedure verified with patient. LAPAROSCOPIC SLEEVE GASTRECTOMY Informed that surgery arrival time is 0545.. Instructed patient to enter at patient entrance day ofsurgery at scheduled arrival time and check in at the registration desk. Instructed patient must have responsible adult hearse driver to take them home after procedure and listen to postop instructions. Instructed patient should not wear make up, nail guyanese, hair products, lotion, powder, jewelry, contact lenses or bring valuables day of surgery. Informed due to Covid-19 virus, for patient safety reasons, ONE VISITOR, must be over age 18, allowed to accompany patient in hospital day of surgery or during hospital stay in non- Covid areas, discussed in detail with patient. Instructed anyone entering ho spital required to wear mask. Patient instructed will need to have Covid-19 test on *03-06-2021 and MUST self-quarantine from the time of test, aside from going to work or doctors appointments, until the time of procedure. Patient said will have test performed at an [facility] or [facility]. Instructed test should be done prior to 1100 that day to ensure results are available the day of their procedure. Patient verbalized understanding. Patient's medications and allergies reviewed with patient and confirmed correct by patient. Instructed patient to bring accurate medication list on day of surgery, nothing to eat or drink after 11:30PM night before procedure including no gum, candy or mints. Instructed patient to take *all morningmedications per Dr. Mendoza's instructions morning of surgery with sip of water. Instructed tohold all other medications morning of surgery. Patient verbalized understanding to all above medication instructions. Olivia with anesthesia, evaluated patient at today's visit, reviewed chart and pre-op medication instructions, no new orders received. Anesthesia consent signed by patient and on chart. All questions answered given written and verbal instructions. Verbalized understanding of instructions given. documented in this encounter Plan of Treatment Upcoming Encounters Date Type Department Care Team (Late st Contact Info) Description 03/15/2025 10:00 AM CDT Office Visit [facility] Weight Management Services [address] [place] [phone] Vianey Llanes, INTERLOCKING INSTALLER-MERCHANDISING INTERN [address] [place] [address] 03/15/2025 10:30 AM CDT Clinical Support [facility] Weight Management Services [address] [place] [phone] documented as of this encounter Procedures Procedure Name Priority Date/Time Associated Diagnosis Comments BLOOD TYPE VERIFICATION Routine 03/06/2021 7:14 AM CDT TYPE + SCREEN PANEL Routine 03/06/2021 7 :12 AM CDT Pre-op exam documented in this encounter Results * BLOOD TYPE VERIFICATION (03/06/2021 7:14 AM CDT) ABO Rh O POS 03/06/2021 8:5 9 AM CDT [facility] Blood Bank BLOOD SPECIMEN / Unknown Lab Venipuncture / Unknown 03/06/2021 7:14 AM CDT 03/06/2021 7:17 AM CDT Aysha Evans MD LAB - BLOOD BANK ORD ESHA Performing Organization Address City/[facility]/ZIP Co de Phone Number [facility] [address] [place] [address] * TYPE + SCREEN PANEL (03/06/2021 7:12 AM CDT) ABO Rh O POS 03/06/2021 9:20 AM CDT [facility] Antibody Screen NEG 9:20 AM CDT [facility] Blood Bank BLOOD SPECIMEN / Unknown Lab Venipuncture / Unknown 03/06/2021 7:12 AM CDT 03/06/2021 7:17 AM CDT Aysha Evans MD LAB - BLOOD BANK ORD ESHA Performing Organization Address City/[facility] Co de Phone Number [facility] [address] [place] [address] documented in this encounter Visit Diagnoses Diagnosis Pre-op exam- Primary Preoperative examination, unspecified documented in this encounter Additional Health Concerns Infection Onset Date Last Indicated Resolved Time COVID-19 Under Investigation 03/06/2021 03/06/2021 03/07/2021 5:24 AM CDT documented as of this encounter
--- OUTSIDE RECORDS SUMMARY | 2024-11-04 22:59 | XMS_ITS | Encounter Summary ---
Author Organization [facility] Health Address [address] [place] [address] Care Team Providers Care Final Block Press Operator Name Role Phone Unavailable Primary Care Provider Unavailabl e Reason for Visit * Reason Onset Date Comments LABS ONLY 03/08/2022 Encounter Details Date Type Department Care Team (Late st Contact Info) Description 03/08/2022 Telephone [facility] Weight Management Services [address] [place] [phone] Maia Kennedy, SKIRT PANEL ASSEMBLER-MAILROOM SUPERVISOR [address] [place] [phone] LABS ONLY Social History Tobacco Use Types Packs/Day Years Used Date Smoking Tobacco: Former Cigarettes Q uit: 06/2020 Smokeless Tobacco: Never Alcohol Use Standard Drinks/Week Comments Not Currently 14 (1 standard drink = 0.6 oz pu re alcohol) Sex and Gender Information Value Date Recorded Sex Assigned at Female 11/25/2020 1:10 PM MICROSTRATEGY DEVELOPER Gender Identity Female 11/25/2020 1:10 PM MICROSTRATEGY DEVELOPER Sexual Orientation Straight 02/02/2021 4: 18 [...] Telephone Encounter - Lesley Harkins LPN - 03/08/2022 11:35 AM CDT Pt called office and asked if we received her lab results from [facility]. I voiced we have not received any results and this time. Pt voices she completed labs 3-4 weeks ago. Pt voices she will call hospital to have results faxed to us. Gave fax number [phone]. documented in this encounter Plan of Treatment Upcoming Encounters Date Type Department Care Team (Late st Contact Info) Description 03/15/2025 10:00 AM CDT Office Visit [facility] Health Weight Management Services [address] [place] [phone] Vianey Llanes, SKIRT PANEL ASSEMBLER-MAILROOM SUPERVISOR [address] [place] [address] 03/15/2025 10:30 AM CDT Clinical Support [facility] Weight Management Services [address] [place] [phone] documented as of this encounter Visit Diagnoses Not on filedocumented in this encounter
--- OUTSIDE RECORDS SUMMARY | 2024-11-04 22:59 | XMS_ITS | Encounter Summary ---
Author Organization [facility] Health Address [address] [facility] [place] [address] Care Team Providers Care Asset Recovery Specialist Name Role Phone Unavailable Primary Care Provider Unavailabl e Reason for Visit * Reason Onset Date Comments Results 03/09/2022 Encounter Details Date Type Department Care Team (Late st Contact Info) Description 03/09/2022 Telephone [facility] Weight Management Services [address] [place] [phone] Vianey Llanes, SENIOR DESIGN ENGINEER-COMMERCIAL REAL ESTATE LENDER [address] [place] [address] Results Social History Tobacco Use Types Packs/Day Years Used Date Smoking Tobacco: Former Cigarettes Q uit: 06/2020 Smokeless Tobacco: Never Alcohol Use Standard Drinks/Week Comments Not Currently 14 (1 standard drink = 0.6 oz pu re alcohol) Sex and Gender Information Value Date Recorded Sex Assigned at Female 11/25/2020 1:10 PM SPECIAL POPULATION PARAPROFESSIONAL Gender Identity Female 11/25/2020 1:10 PM SPECIAL POPULATION PARAPROFESSIONAL Sexual Orientation Straight 02/02/2021 4: 18 PM [...] Encounter - Lesley Harkins LPN - 03/09/2022 3:23 PM CDT Called pt to inform we received lab results, no success. Left detailed message. Voiced we have no recommendations at this time and to call our office if any questions. documented in this encounter Plan of Treatment Upcoming Encounters Date Type Department Care Team (Late st Contact Info) Description 03/15/2025 10:00 AM CDT Office Visit [facility] Weight Management Services [address] [place] [phone] Vianey Llanes, SENIOR DESIGN ENGINEER-COMMERCIAL REAL ESTATE LENDER [address], [place] [phone] 03/15/2025 10:30 AM CDT Clinical Support [facility] Health Weight Management Services [address] [place] [phone] documented as of this encounter Visit Diagnoses Not on filedocumented in this encounter
--- OUTSIDE RECORDS SUMMARY | 2024-11-04 22:59 | XMS_ITS | Encounter Summary ---
Author Organization [facility] Health Address [address] [facility] [place] [address] Care Team Providers Care Infrastructure Analyst Name Role Phone Cass Mast Primary Care Provider [phone] Encounter Details Date Type Department Care Team (Late st Contact Info) Description 03/09/2023 10:30 AM CDT Video Visit [facility] Weight Management Services [address] [place] [phone] Raisa Schmidt MD [address] [place] [address] S/P laparoscopic sleeve gastrectomy Social [...] Sex Assigned at Female 11/25/2020 1:10 PM MACARONI MAKER Gender Identity Female 11/25/2020 1:10 PM MACARONI MAKER Sexual Orientation Straight 02/02/2021 4: 18 PM CDT documented as of this encounter Last Filed Vital Signs Vital Sign Reading Time Taken Comments Blood Pressure - - Pulse - - Temperature - - Respiratory Rate - - Oxygen Saturation - - Inhaled Oxygen Concentration - - Weight 72.5 kg (159 lb 12.8 oz) 023 10:00 AM CDT Height 160 cm (5' 2.99 ) 03/09/2023 10: 00 AM CDT Body Mass Index 28.31 03/09/2023 10:00 AM CDT documented in this encounter [...] Progress Notes * Jerrica Whitaker RD/SIN - 03/09/2023 10:30 AM CDT MEDICAL NUTRITION THERAPY Weight Management Services Bariatric Surgery Follow-Up Session Number: (2 years s/p VSG) Patient Verification & Telemedicine Based [...] verification and consent paragraph with the patient/surrogate. The patient has given verbal consent to have today's visit conducted by this same means with treatment provided remotely. The patient verbally consents to the billing and collection practices of [facility]. Patient location: Home This encounter was performed using: audio and video Total time spent on visit on date of encounter is: 10 minutes Session Date: 03/09/23 Patient: Maria Del Carmen Ray Date of : 1975 (47 year old) PCP Physician: YADIRA Apodaca Referring Physician: Roxana NUTRITION ASSESSMENT Primary Diagnoses/Co-morbidities: (overweight, s/p VSG) Secondary Diagnoses/Co-morbidities: Hypertension (GERD) Have you seen a dietitian?: Yes Pertinent Labs: reviewed- vit D 28.2 Pertinent Medications: reviewed Current V/M Supplements: CS BID, 600 mg calcium citrate??BID,??Vitron C daily, D2 weekly Eating History Are you following [...] many times do you exercise each week?: 3 How many minutes of exercise each time?: (30-45) Weight History Height: 160 cm (5' 2.99 ) Initial Program Weight: 255.6#?BMI 45.28 Current Weight: 72.5 kg (159 lb 12.8 oz) Weight Method (Utilize Scales): Stated BMI (Calculated): 28.31 Has your weight changed since last visit?: Loss # (1#) Total Program Weight Loss: 95.8# Pt seen for nutrition f/u. Pt is 2 years s/p VSG by Dr. Mendoza, desiring panniculectomy. Pt's weight is down 1# since last visit, down 95.8# since beginning program. Pt reports is happy with current weight but would also like to lose additional 5 lbs. Pt reports drinking 2 protein shakes/day and using saucer for portion control. Pt reports drinking at least 64 oz water with occasional SF juice. Pt reports staying active at job and using treadmill 30-45 min 3x/week for exercise. Reviewed food recall and vitamins. 24 Hour Food Recall (Current) Breakfast - boiled egg, protein shake- Ensure Max Snack- protein shake Lunch - 3 oz baked fish, 1/2 c broccoli Dinner - 1 c spinach/rivers/boiled egg salad Beverages - 64 oz water, occasional SF Minute Maid NUTRITION DIAGNOSIS Diagnosis: Overweight/obesity Related to: (hx excessive kcal intake) As evidenced by: BMI 28.31. NUTRITION INTERVENTION Interventions: Motivational interviewing;Goal setting;Self-monitoring;Problem solving;Recommended [...] Pt v/u and agreeable to f/u at 3 yearspost op. External Barriers to Change: none NUTRITION [...] Adherence: Often Demonstrated Session Information Session Date: 03/09/23 Session beginning time: 1021 Session ending time: 1031 Session total minutes: 10 Minutes Teaching Method: Explanation;Demonstration;Teach Back Next visit: (3 years post op) Total MNT minutes this calendar year: Nutritional Review ?? Cleared, additional RD visits required pre-op ___ ?? Cleared, no additional RD visits required pre-op ___ ?? Not cleared, additional RD visit(s) required pre-op ___ ?? Continue with post op RD visits per protocol _X__ Jerrica Whitaker RD/SIN documented in this encounter Plan of Treatment Upcoming Encounters Date Type Department Care Team (Late st Contact Info) Description 03/15/2025 10:00 AM CDT Office Visit [facility] Health Weight Management Services [address] [place] [phone] Vianey Llanes, MANAGER NON PROFIT-CUFF SETTER LOCKSTITCH [address] [place] [address] 03/15/2025 10:30 AM CDT Clinical Support [facility] Weight Management Services [address] [place] [phone] documented as of this encounter Visit Diagnoses Diagnosis S/P laparoscopic sleeve gastrectomy- Primary documented in this encounter Care Teams Infrastructure Analyst Relationship Specialty Start Date End Date Cass Mast PA [address] [place] [address] PCP - General Nurse Practitioner Primary Care 01/13/23 03/15/24 documented as of this encounter
--- OUTSIDE RECORDS SUMMARY | 2024-11-04 22:59 | XMS_ITS | Encounter Summary ---
Author Organization [facility] Health Address [address] [place] [address] Care Team Providers Care Shirt Cleaner Name Role Phone Unavailable Primary Care Provider Unavailabl e Reason for Visit * Reason Comments Bariatric Surgery Follow-up 3 months s/p sleeve Encounter Details Date Type Department Care Team (Late st Contact Info) Description 06/24/2021 2:15 PM CDT Video Visit [facility] Health Weight Management Services [address] [place] [phone] Raisa Schmidt MD [address] [place] [address] Tram Caicedo, VISUAL MERCHANDISING MANAGER-DRIVERS' CASH CLERK [address] [place] [address] BMI 34.0-34.9,adult ; Class 1 obesity due to excess calories without serious comorbidity with body mass index (BMI) of 34.0 to 34.9 in adult; S/P laparoscopic sleeve gastrectomy; Gastroesophageal reflux disease without esophagitis; Vitamin D deficiency; History of smoking Social History Tobacco Use Types Packs/Day Years Used Date Smoking Tobacco: Former Cigarettes Q uit: 06/2020 Smokeless Tobacco: Never Alcohol Use Standard Drinks/Week Comments Not Currently 14 (1 standard drink = 0.6 oz pu re alcohol) Sex and Gender Information Value Date Recorded Sex Assigned at Female 11/25/2020 1:10 PM GROUNDS WORKER Gender Identity Female 11/25/2020 1:10 PM GROUNDS WORKER Sexual Orientation Straight 02/02/2021 4: 18 PM CDT documented as of this encounter Last Filed Vital Signs Vital Sign Reading Time Taken Comments Blood Pressure - - Pulse - - Temperature - - Respiratory Rate - - Oxygen Saturation - - Inhaled Oxygen Concentration - - Weight 88 kg (194 lb) 06/24/2021 2:00 PM CDT Height 160 cm (5' 3 ) 06/24/2021 2:00 PM CDT Body Mass Index 34.37 06/24/2021 2:00 PM CDT documented in this encounter Functional [...] this encounter Patient Instructions * Patient Instructions* Giuseppe Stewart LPN - 06/24/2021 2:05 PM CDT It is important to keep all scheduled appointments to be successful in you weight loss journey. If an appointment does not work with your schedule please reschedule as soon as you can. We want to help you to our fullest ability to be successful with your weight loss. documented in this encounter Progress Notes * Tram Caicedo, BURT-BLAKE - 06/24/2021 2:16 PM CDT Images from the original note were not included. [facility] Health Weight Management Services [address] [address] PH: [phone] , Date of encounter: 06/24/2021 Pt Name: Maria Del Carmen Ray : 1975 AGE: [age] year old SEX: female CSN: [id number] Visit type: Bariatric Post Operative visit Patients Primary care provider: No primary care provider on file. Subjective: Maria Del Carmen Ray presents to the clinic 3 months following Laparoscopic sleeve gastrectomy; she was last seen by Tram Pemberton APRN, at [place] [facility] on April 10 2021.. Patient is taking 60 grams of protein supplements daily. Patient is not attending support group meeting. Patient is taking 64 oz of water daily. Doing walking 3-4 miles 3-4 times weekly. Patient is taking Centrum Silver multivitamin twice daily. . Has the patient been readmitted to the [...] Total Wt Loss in lb: 61.6 lb Obesity History Years at current weight? 13 Years at 35 pounds overweight? 13 Years 100 pounds overweight? Age patient started to diet? 41 Maximum weight reached? 255 Most significant weight loss: Amount of weight loss 20lb Months weight loss sustained 2 months Method of weight loss phentermine Body mass index is 34.37 kg/m??. Past Medical History: Diagnosis Date ??? [...] Former Smoker Quit date: 06/2020 Years since quittin.0 ??? Smokeless tobacco: Never Used Vaping Use [...] Gatherings with Friends and Family: ??? Attends [employer] Services: ??? Active Member of Clubs or Organizations: ??? Attends Club or Organization Meetings: ??? Marital Status: Intimate Partner Violence: ??? Fear of Current or Ex-Partner: ??? Emotionally Abused: ??? Physically Abused: ??? Sexually Abused: Family History: Family History Problem Relation Name Age of Onset ??? Hypertension Mother ??? Hypertension Father ??? CVA Father Medications: Outpatient Medications Marked as Taking for the 06/24/21 encounter (Video Visit) with Tram Caicedo APRN-CNP Medication Sig ??? CALCIUM CITRATE PO ??? Multiple Vitamins-Minerals (CENTRUM SILVER PO) ??? omeprazole (PRILOSEC) 40 MG capsule Take 1 (one) capsule by mouth daily before breakfast Reasons: Gastroesophageal Reflux Disease (Patient taking differently: Take 40 mg by mouth once daily as needed Reasons: Gastroesophageal Reflux Disease) ??? ursodiol (ACTIGALL) 300 MG capsule Take 1 capsule by mouth 2 times daily Allergy: Allergies Allergen Reactions ??? Amoxicillin Rash and Unknown Review of Systems Constitutional: Negative for chills and fever. Respiratory: Negative for shortness of breath. Cardiovascular: Negative for chest pain. Gastrointestinal: Positive for constipation. Negative for abdominal pain, diarrhea, heartburn, nausea and vomiting. Objective: Ht 5' 3 (1.6 m) Wt 194 lb (88 kg) BMI 34.37 kg/m2 Weight: 194 lb (88 kg) Height: 5' 3 (160 cm) Body mass index is 34.37 kg/m??. Physical Exam Constitutional: General: She is not in acute distress. Appearance: She is obese. She is not ill-appearing. Pulmonary: Effort: Pulmonary effort is normal. No respiratory distress. Neurological: Mental Status: She is alert and oriented to person, place, and time. Psychiatric: Mood and Affect: Mood normal. Behavior: Behavior normal. Thought Content: Thought content normal. Judgment: Judgment normal. Labs Recent Labs Component Name 03/10/213 03/09/21 [...] be scanned in the EMR. Imaging studies Some Imaging studies results will be in paper format so may be scanned in the EMR. Assessment and Plan (Z68.34) BMI 34.0-34.9,adult (primary encounter diagnosis) (E66.09, Z68.34) Class 1 obesity due to excess calories without serious comorbidity with body massindex (BMI) of 34.0 to 34.9 in adult (Z98.84) S/P laparoscopic sleeve gastrectomy (K21.9) Gastroesophageal reflux disease without esophagitis (E55.9) Vitamin D deficiency (Z87.891) History of smoking (Z68.34) BMI 34.0-34.9,adult (primary encounter diagnosis) (E66.09, Z68.34) Class 1 obesity due to excess calories without serious comorbidity with body mass index (BMI) of 34.0 to 34.9 in adult Change in weight as noted in the weight history above. Total weight loss since starting the programis 61.6 pounds. Current BMI is 34.37 kg/m?? with weight of 194 lb (88 kg). Patient is losing weight. Patient is controlling carbohydrate and sugar intake as well as portion sizes. Counseled on the importance of these for weight loss. Patient was counseled for higher protein diet, with 3 meals a day, without unhealthy snacking. Patient was recommended to take 60 to 80 grams of protein per day. Protein sources from meat, plants anddairy products were discussed. Patient was recommended to attend support group meetings at least every three months for rest of the life. Patient was also recommended to optimize weight loss with structured exercise regimen, 150 minutes of cardio weekly with 2-3 days of resistance added in. Upper and lower body exercise strategies were discussed. Patient will continue multivitamins and other nutritional supplements as appropriate, as recommended and in consultation with dietitian and primary care physician. Lifelong supplementation was discussed and patient voices understanding. Patient was made aware of the nutrition deficiency should she fail to take supplementation. (Z98.84) S/P laparoscopic sleeve gastrectomy Surgery: s/p Laparoscopic sleeve gastrectomy with Dr. Rehan Mendoza at [facility] in [place], [place] on 03/09/2021. (K21.9) Gastroesophageal reflux disease without esophagitis Currently taking omeprazole 40 mg PO daily. May discontinue at this time. (E55.9) Vitamin D deficiency Currently does not take vitamin-D supplementation. Does report taking centrum Silver multivitamin twice daily. Per patient request order for labs were mailed to her today. Will await results and makerecommendations based on those findings. (Z87.857) History of smoking Remains smoke free at this time. Patient counseled on continuing behavior and lifestyle modifications: Eat 1-2 small meals daily and protein supplementation. Recommended to take about 60-80 grams of protein per day. Eliminate high calorie beverages. Do not graze between meals. Portion control and measuring portions. Choosing low sugar, high protein items. Reducing stress and emotional eating. Incorporating fruits and vegetables in moderation. Taking 20 minutes to eat a meal. Patient was instructed to keep a food journal. Patient was counseled on the need for routine exercise plan, at least 10 minutes per day. Time spent with patient was 6 minutes. Greater than 50% of the time was spent providing education and counseling. Labs ordered: Routine pre op labs - orders emailed to patient per request. Imaging ordered: N/A at today's visit Plan: as above recommendation. Follow up with: Provider and manager compliance 6 month(s) post op. She verbalized understanding and is agreeable to this plan after shared decision making with patient. SANGEETHA Simon CC: No primary care provider on file. documented in this encounter Plan of Treatment Upcoming Encounters Date Type Department Care Team (Late st Contact Info) Description 03/15/2025 10:00 AM CDT Office Visit [facility] [address] [place] [phone] Vianey Llanes APRN-CNP [address], [place] [phone] 03/15/2025 10:30 AM CDT Clinical Support [facility] [address] [place] [address] documented as of this encounter Visit Diagnoses Diagnosis BMI 34.0-34.9,adult- Primary Body Mass Index 34.0-34.9, adult Class 1 obesity due to excess calories without serious comorbidity with body mass index (BMI) of 34.0 to 34.9 in adult S/P laparoscopic sleeve gastrectomy Gastroesophageal reflux disease without esophagitis Esophageal reflux Vitamin D deficiency History of smoking Personal history of tobacco use, presenting hazards to health documented in this encounter
--- OUTSIDE RECORDS SUMMARY | 2024-11-04 22:59 | XMS_ITS | Encounter Summary ---
Author Organization [facility] Health Address [address] [place] [address] Care Team Providers Care Aerospace Technician Name Role Phone Cass Mast Primary Care Provider [phone] Encounter Details Date Type Department Care Team (Late st Contact Info) Description 03/09/2023 10:00 AM CDT Video Visit [facility] Health Weight Management Services [address] [place] [phone] Raisa Schmidt MD [address] [place] [phone] Vianey Llanes, LINE PREP COOK-SPEECH THERAPY TEACHER [address] [place], [place] [phone] Overweight with body mass index (BMI) of 28 to 28.9 in adult ; S/P laparoscopic sleeve gastrectomy; History of smoking; Abdominal pannus Social History [...] Sex Assigned at Female 11/25/2020 1:10 PM PERFORMANCE IMPROVEMENT COORDINATOR Gender Identity Female 11/25/2020 1:10 PM PERFORMANCE IMPROVEMENT COORDINATOR Sexual Orientation Straight 02/02/2021 4: 18 PM CDT documented as of this encounter Last Filed Vital Signs Vital Sign Reading Time Taken Comments Blood Pressure - - Pulse - - Temperature - - Respiratory Rate - - Oxygen Saturation - - Inhaled Oxygen Concentration - - Weight 72.5 kg (159 lb 12.8 oz) 03/09/2023 9:00 AM CDT Height 160 cm (5' 3 ) 03/09/2023 9:00 AM CDT Body Mass Index 28.31 03/09/2023 9:00 AM CDT documented in this encounter [...] of this encounter Progress Notes * Vianey Llanes, BURT-SPEECH THERAPY TEACHER - 03/09/2023 9:55 AM CDT [facility] Health [place] [address] . . Date of encounter: 03/09/2023 Pt Name: Maria Del Carmen Ray : 1975 AGE: [age] year old SEX: female CSN: [id number] Visit type: Weight Management Follow Up Patients Primary care provider is : YADIRA Apodaca Patient Verification & Telemedicine Based Consent I [...] the patient/surrogate. Subjective: Maria Del Carmen Ray presents to the clinic 2 years following sleeve gastrectomy. she was seen in clinic last on 01/13/2023. Patient is taking 60 grams of proteins [...] (Calculated): 30.83 Weight Loss since last visit inlbs : 9.4 lb Total Wt Loss in [...] Total Wt Loss in lb: 95.8 lb Obesity History Years at current weight? 13 Years at 35 pounds overweight? 13 Years 100 pounds overweight? Age patient started to diet? 41 Maximum weight reached? 255 Most significant weight loss: Amount of weight loss 20lb Months weight loss sustained 2 months Method of weight loss phentermine BMI: Body mass index is 28.31 kg/m??. Past Medical History: Diagnosis Date ??? [...] Cigarettes Quit date: 06/2020 Years since quittin.7 ??? Smokeless tobacco: Never Vaping Use ??? Vaping status: Never Used Substance and Sexual Activity ??? Alcohol use: [...] Outpatient Medications Marked as Taking for the 03/09/23 encounter (Video Visit) with Vianey Llanes APRN-CNP Medication Sig ??? CALCIUM CITRATE PO ??? Ferrous Sulfate (IRON PO) ??? Multiple Vitamins-Minerals (CENTRUM SILVER PO) ??? vitamin D, ergocalciferol, (Drisdol) 1.25 MG (74521 UT) capsule Take 1 (one) capsule by mouth every 7 days Reasons: Vitamin D Deficiency (Not in a hospital admission) Allergy: Allergies Allergen Reactions ??? Amoxicillin Rash and Unknown ROS: A comprehensive review of systems was negative except as described in HPI. Objective: Ht 1.6 m (5' 3 ) Wt 72.5 kg (159 lb 12.8 oz) Weight: 72.5 kg (159 lb 12.8 oz) Height: 160 cm (5' 3 ) Body mass index is 28.31 kg/m??. Unable to complete physical assessment due [...] LDL, HDL, TRIG, TSH in the last 81531 hours. No results for input(s): HGBA1C in the last 76486 hours. No results for input(s): PT, PTT, INR, TSH in the last 40219 hours. No results for input(s): TSH in the last 58007 hours. Recent Labs Component Name 12/30/22 1030 IRON 98 No results for input(s): CPDGLQQX20 in the last 55597 hours. No results for input(s): VITAMINA in the last 33899 hours. Recent Labs Component Name 12/30/22 1030 IRON 98 No results for input(s): VITK1 in the last 36168 hours. No results for input(s): [id number] in the last 91131 hours. No results for input(s): ALPHATOCOPH in the last 41871 hours. No results for input(s): GAMMATOCOPH in the last 02556 hours. No results for input(s): MAGMGDL in the last 27911 hours. Recent Labs Component Name 03/10/21 0413 [...] Total weight loss since starting the program: 95.8 pounds Current BMI Body mass index is 28.31 kg/m??. with weight of Weight: 72.5 kg (159 lb 12.8 oz) . Patient was recommended to take about 80 g of protein per day, and get involved in an exercise plan. The patient is also recommended to attend support group meetings.I also explained to her that she should take 2 adult multivitamin tablets, and 1500 mg of calcium citrate, starting 2 weeks after surgery. Patient was made aware of the nutrition deficiency should she fail to take supplementation. Surgery : s/p: Laparoscopic Sleeve Gastrectomy. Date of surgery??03/09/2021??@ [facility] by??Dr. Mendoza. ? History of pyloric ulcer Patient??underwent postoperative??EGD 12/08/22??noting normal duodenum, normal gastric antrum, evidence of sleeve gastrectomy initiated 8 cm proximal to the pylorus with no evidence of tight angulationat the incisura and no retained fundus. ??She had no hiatal hernia. ??She had normal Z-line with normal esophagus and normal cords.?Antral biopsy showed no histopathologic abnormality. H pylori negative. ??She is not currently taking antacid medication. ?? Colon cancer screening Last colonoscopy was??08/25/[address] Bailey at [facility] in[facility].?She was recommended repeat colonoscopy in 5 years, 2026. ?? History of??Smoking addiction?? She??stopped smoking??in June 2020.?She denies smoking at this time.?Explained to her the risk of development of complications with smoking after bariatric surgery.?Nicotine test #1negative 12/30/22. Nicotine test #2 ordered in [facility]. ? Vitamin D Deficiency Vitamin-D level was low with labs completed in December 2022. Patient is on current supplementationper protocol. ?? History of Hyperparathyroidism Repeat PTH level was normal with labs completed December 2022 ?? History of iron deficiency Patient has history of iron deficiency. ??She is on current supplementation. ??Iron profile normal in December 2022. Patient to continue on current supplementation ?? Vitamin B1 Patient had low, normal [...] to confirm she has exhausted all nonsurgical options.?Will also plan to obtain pre-albumin with annual lab work February 2023.?Patient would like to be at 160 lb prior to proceeding with surgery. ??She is currently at 160.8 lb and has been stable here. ?? I counseled the patient on continuing [...] least 10 minutes per day. Labs ordered: Missing annual labs, prealbumin, and nicotine screen, orders emailed to patient at her request Plan : as above recommendation. Follow up with: Surgeons / PA/ [facility] : Final H&P Dietitian: as scheduled. Today's visit was conducted virtually due to COVID-19 countermeasures. The patient has given verbalconsent to have today's visit conducted by this same means with treatment provided remotely. The patient verbally consents to the billing and collection practices of [facility]. Patient location: Home This encounter was [...] and updated as documented in Epic. SANGEETHA Grigsby documented in this encounter Plan of Treatment Upcoming Encounters Date Type Department Care Team (Late st Contact Info) Description 03/15/2025 10:00 AM CDT Office Visit [facility] [address] [place] [address] Vianey Llanes APRN-CNP [address] [place] [address] 03/15/2025 10:30 AM CDT Clinical Support [facility] [address] [place] [phone] documented as of this encounter Visit Diagnoses Diagnosis Overweight with body mass index (BMI) of 28 to 28.9 in adult- Primary S/P laparoscopic sleeve gastrectomy History of smoking Personal history of tobacco use, presenting hazards to health Abdominal pannus Localized adiposity documented in this encounter Care Teams Aerospace Technician Relationship Specialty Start Date End Date Cass Mast PA [address] [place] [address] PCP - General Nurse Practitioner Primary Care 01/13/23 03/15/24 documented as of this encounter
--- OUTSIDE RECORDS SUMMARY | 2024-11-04 23:00 | XMS_ITS | Encounter Summary ---
Author Organization [facility] Health Address [address] [place] [address] Care Team Providers Care Lab Support Tech Name Role Phone Unavailable Primary Care Provider Unavailabl e Reason for Referral * Consultation (Routine) - Closed Specialty Diagnoses / Procedures Referred By Contharshal t Referred To Contact Nutrition Services Diagnoses Morbid obesity (HCC) Rehan Mendoza MD [address] [place] [phone] Referral ID Status Reason Start Date Expiration Date V isits Requested Visits Authorized [id number] Closed Specialty Services Required 08/14/2020 08/14/2021 3 3 Encounter Details Date Type Department Care Team (Late st Contact Info) Description 08/14/2020 4:00 PM CDT Video Visit [facility] Weight Management Services [address] [place] [address] [place] [id number] [phone] Morbid obesity (HCC) Social History Tobacco Use Types Packs/Day Years Used Date Smoking Tobacco: Former Cigarettes Q uit: 06/2020 Smokeless Tobacco: Never Alcohol Use Standard Drinks/Week Comments Yes 14 (1 standard drink = 0.6 oz pu re alcohol) Sex and Gender Information Value Date Recorded Sex Assigned at Female 11/25/2020 1:10 PM TSO Gender Identity Female 11/25/2020 1:10 PM TSO Sexual Orientation Straight 02/02/2021 4: 18 PM CDT documented as of this encounter Last Filed Vital Signs Vital Sign Reading Time Taken Comments Blood Pressure - - Pulse - - Temperature - - Respiratory Rate - - Oxygen Saturation - - Inhaled Oxygen Concentration - - Weight 115.9 kg (255 lb 9.6 oz) 08/14/2020 8:31 AM CDT Height 160 cm (5' 3 ) 08/14/2020 8:31 AM CDT Body Mass Index 45.28 08/14/2020 8:31 AM CDT documented in this encounter Progress Notes * Sasha Pineda RD/SIN - 08/14/2020 4:00 PM CDT MEDICAL NUTRITION THERAPY Weight Management Services Bariatric Surgery Initial Nutrition EvaluationSession Number: Session I Patient Verification & Telemedicine Based Consent I [...] to the billing and collection practices of [facility]. Patient location: Home This encounter was performed using: audio and video Total time spent on visit on date of encounter is: 35 minutes Session Date: 08/14/20 Patient: Maria Del Carmen Ray Date of : 1975 (44 year old) PCP Physician: SANGEETHA Kumar Referring Physician: Kelly NUTRITION ASSESSMENT Primary Diagnoses/Co-morbidities: Morbid Obesity Have you seen a dietitian?: Yes Pertinent Labs: no new to review Pertinent Medications: reviewed Current V/M Supplements: n/a Eating History Are you following a special diet at home?: Weight Reduction Are you having trouble following your diet?: Yes Weight loss diets followed in the past: (phentermine) Are you having any trouble eating?: No Are you avoiding salty food, and not adding salt to your food?: No Are you limiting your liquids?: No How much liquids per day do you drink?: 64 oz/day Usual Number of Times You Eat Out Per Week : 1-3 per week Who prepares the meals?: Self Exercise Type of exercise?: None Weight History Height: 5' 3 (160 cm) Initial Program Weight: 255.6# BMI: 45.28 Current Weight: 255 lb 9.6 oz (115.9 kg) Weight Method (Utilize Scales): Per H&P-(outpatient clinic use only) BMI (Calculated): 45.29 Has your weight changed since last visit?: No Total Program Weight Loss: none Pt seen for initial nutrition consult. Pt reports long history of unsuccessful weight loss/maintenance. Pt planning Sleeve Gastrectomy. Pt reports health as reason for surgery. NUTRITION DIAGNOSIS Diagnosis: Overweight/obesity Related to: excessive calorie intake As evidenced by: BMI of 45.29. NUTRITION INTERVENTION Interventions: Motivational interviewing;Goal setting;Self-monitoring;Problem solving;Recommended modifications;Collaboration with other providers Patient was instructed on healthy balance diet for weight loss using protein shakes. The current Bariatric Nutrition Guide was provided and the foster diet principles were introduced. Explained phases 1-4 of bariatric diet. Educated pt regarding behavior changes for bariatric diet such as no straws and smaller plate. Explained importance of continued bariatric vitamin/mineral and protein supplementation. Pt v/u. Pt is ready to begin bariatric nutrition recommendations for wt loss. Pt was seen in group class via Zoom. Recommended pt begin replacing 1 meal daily with a protein shake and reviewed appropriate types, nutrition label, mixing technique, cost, where to purchase, etc. Reviewed plate model and recommended pt begin reducing portions by 1/3 to gradually be within plate model. Recommended pt consume protein first, then non-starchy vegetables and limit CHOs. Recommended no fried foods and to avoid high sugar foods. Reviewed mindful eating techniques and recommended pt take 15-20 minutes to consumemeals/shakes to promote satiety and wt loss. Recommended 3 meals/day and to limit snacking unless truly hungry. Recommended limiting eating out to 1-2x/week. Recommended no soda/SSB and reviewed sugar-free, low kcal alternatives. Pt v/u. External Barriers to Change: none NUTRITION MONITORING/EVALUATION Nutrient Needs: Goals: Nutrition Goal #1: 1 protein shake/day as meal Nutrition Goal #2: Reduce portions by 1/.3 Nutrition Goal #3: Limit snacking to 1-2x/week Monitor/Evaluation: Monitoring and evaluation: Fluid/beverage intake;Food intake;Protein intake;Carbohydrate intake;Mineral/element intake;Food and nutrition knowledge/skills;Beliefs and attitudes;Adherence;Physical activity;Weight change;Body Mass index RD contact information provided. Pt encouraged to call RD with questions and/or concerns. Evaluation of Overall Compliance Potential: Comprehension: Sometimes Demonstrated Receptivity: Sometimes Demonstrated Adherence: Rarely Demonstrated Session Information Session Date: 08/14/20 Session beginning time: 1609 Session ending time: 1644 Session total minutes: 35 Minutes Teaching Method: Explanation;Demonstration;Handout;Video;Class/Group;Teach Back Materials provided: Bariatric Nutrition guide, SG Next visit: (1 month f/u) Total MNT minutes this calendar year: Nutritional Review ?? Cleared, additional RD visits required pre-op ___ ?? Cleared, no additional RD visits required pre-op ___ ?? Not cleared, additional RD visit(s) required pre-op _X__ ?? Continue with post op RD visits per protocol ___ Sasha Pineda RD/SIN documented in this encounter Plan of Treatment Upcoming Encounters Date Type Department Care Team (Late st Contact Info) Description 03/15/2025 10:00 AM CDT Office Visit [facility] Weight Management Services [address] [place] [address] Vianey Llanes, PIECE MARKER SMALL ARMS-SLATE CUTTER [address] [place] [address] 03/15/2025 10:30 AM CDT Clinical Support [facility] Health Weight Management Services [address] [place] [phone] Scheduled Referrals Name Type Priority Associated Diagnoses Order Schedule MEDICAL NUTRITION THERAPY REFERRAL Outpatient Referral Routine Morbid obesity (HCC) 3 Occurrences starting 08/14/2020 until 08/14/2021 documented as of this encounter Visit Diagnoses Diagnosis Morbid obesity (HCC)- Primary Morbid obesity documented in this encounter
--- OUTSIDE RECORDS SUMMARY | 2024-11-04 23:00 | XMS_ITS | Encounter Summary ---
Author Organization [facility] Health Address [address] [place] [address] Care Team Providers Care Primer Assembler Name Role Phone Unavailable Primary Care Provider Unavailabl e Reason for Visit * Reason Onset Date Comments General 02/05/2021 Encounter Details Date Type Department Care Team (Late st Contact Info) Description 02/05/2021 Telephone [facility] Weight Management Services [address] [place] [phone] Rehan Mendoza MD [address] [place] [phone] General Social History Tobacco Use Types Packs/Day Years Used Date Smoking Tobacco: Former Cigarettes Q uit: 06/2020 Smokeless Tobacco: Never Alcohol Use Standard Drinks/Week Comments Yes 14 (1 standard drink = 0.6 oz pu re alcohol) Sex and Gender Information Value Date Recorded Sex Assigned at Female 11/25/2020 1:10 PM PRECIPITATION EQUIPMENT TENDER Gender Identity Female 11/25/2020 1:10 PM PRECIPITATION EQUIPMENT TENDER Sexual Orientation Straight 02/02/2021 4: 18 PM CDT COVID-19 Exposure Response Date Recorded In the last month, have you been in contact with someone who was confirmed or suspected to have Coronavirus / COVID-19? No / Unsure 01/30/2021 6:27 AM CDT documented as of this encounter [...] No 02/02/2021 documented as of this encounter Miscellaneous Notes * Telephone Encounter - Annika Hurst - 02/05/2021 12:03 PM CDT Spoke to PT and rescheduled repeat EGD, and preop appts. PT agrees to all new appt dates and times.Will send email to pt with information for appts. Will consult with dietitian to get appt time scheduled for dietitian preop appt. documented in this encounter Plan of Treatment Upcoming Encounters Date Type Department Care Team (Late st Contact Info) Description 03/15/2025 10:00 AM CDT Office Visit [facility] Health Weight Management Services [address] [place] [phone] Vianey Llanes, ORDINARY SEAMAN-CHUCKING AND BORING MACHINE OPERATOR [address] [place] [address] 03/15/2025 10:30 AM CDT Clinical Support [facility] Health Weight Management Services [address] [place] [address] documented as of this encounter Visit Diagnoses Diagnosis Pre-operative laboratory examination- Primary Pre-procedural laboratory examination documented in this encounter
--- OUTSIDE RECORDS SUMMARY | 2024-11-04 23:00 | XMS_ITS | Encounter Summary ---
Author Organization [facility] Health Address [address] [place] [address] Care Team Providers Care Bridge Painter Helper Name Role Phone Unavailable Primary Care Provider Unavailabl e Reason for Visit * Reason Onset Date Comments General 11/05/2020 Encounter Details Date Type Department Care Team (Late st Contact Info) Description 11/05/2020 Telephone [facility] Weight Management Services [address] [place] [phone] Tram Pemberton, MANAGER ACQUISITION-[facility] [address] [address] General Social History Tobacco Use Types Packs/Day Years Used Date Smoking Tobacco: Former Cigarettes Q uit: 06/2020 Smokeless Tobacco: Never Alcohol Use Standard Drinks/Week Comments Yes 14 (1 standard drink = 0.6 oz pu re alcohol) occ Sex and Gender Information Value Date Recorded Sex Assigned at Female 11/25/2020 1:10 PM SKEIN YARN DYER HELPER Gender Identity Female 11/25/2020 1:10 PM SKEIN YARN DYER HELPER Sexual Orientation Straight 02/02/2021 4 :18 PM CDT documented as of this encounter Miscellaneous Notes * Telephone Encounter - Briana Virk RN - 11/05/2020 10:36 AM CST Pt states she has cardiology appt scheduled for 11/17/2020. Also reminded pt of need for 2 neg nicotine tests. Pt v/u and requested order be mailed to her. N YARN DYER HELPER documented in this encounter Plan of Treatment Upcoming Encounters Date Type Department Care Team (Late st Contact Info) Description 03/15/2025 10:00 AM CDT Office Visit [facility] Weight Management Services [address] [place] [phone] Vianey Llanes, MANAGER ACQUISITION-CELERY WRAPPER [address] [place], [place] [phone] 03/15/2025 10:30 AM CDT Clinical Support [facility] Weight Management Services [address] [place] [phone] documented as of this encounter Visit Diagnoses Diagnosis History of smoking- Primary Personal history of tobacco use, presenting hazards to health documented in this encounter
--- OUTSIDE RECORDS SUMMARY | 2024-11-04 23:00 | XMS_ITS | Encounter Summary ---
Author Organization [facility] Address [address] [place] [address] Care Team Providers Care It Web Development Consultant Name Role Phone Unavailable Primary Care Provider Unavailabl e Reason for Visit * Reason Onset Date Comments Surgical Followup 02/04/2021 Encounter Details Date Type Department Care Team (Late st Contact Info) Description 02/04/2021 Telephone [facility] Weight Management Services [address] [place] [phone] Rehan Mendoza MD [address] [place] [phone] Surgical Followup Social History Tobacco Use Types Packs/Day Years Used Date Smoking Tobacco: Former Cigarettes Q uit: 06/2020 Smokeless Tobacco: Never Alcohol Use Standard Drinks/Week Comments Yes 14 (1 standard drink = 0.6 oz pu re alcohol) Sex and Gender Information Value Date Recorded Sex Assigned at Female 11/25/2020 1:10 PM FEATHERER Gender Identity Female 11/25/2020 1:10 PM FEATHERER Sexual Orientation Straight 02/02/2021 4: 18 PM [...] Telephone Encounter - Briana Virk RN - 02/04/2021 2:31 PM CDT Procedure: EGD DOS: 02/02/2021 1. Do you have any of the following symptoms: fever, chills, dizziness, lightheaded ness, sore throat, difficulty swallowing, nausea, or vomiting? NO, sore throat initially but has resolved a. Sore throats are normal for 24-36 hours after an EGD. To help relieve this, you can suck on crushed ice, use throat lozenges, or gargle warm salt water (1 tsp salt to 1 C warm water). b. Some abdominal cramping is also normal. 2. Are you eating and drinking okay? YES 3. Are you having any gas or bloating? NO a. If so, take short walks to help ease the gas pain. Eating small meals and using a heating pad can help until gas pain is resolved. 4. Are you having normal bowel movements? YES, no blood in stool 5. Any dark colored stools? NO If pathology is not resulted and reviewed, patient was advised that the provider will review and wewill reach out to them if it is abnormal. The patient was advised to call our office with any additional questions or concerns. 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 Explained that our office will be in contact with her in regards to scheduling repeat EGD. Pt v/u. documented in this encounter Plan of Treatment Upcoming Encounters Date Type Department Care Team (Late st Contact Info) Description 03/15/2025 10:00 AM CDT Office Visit [facility] Health Weight Management Services [address] [place] [phone] Vianey Llanes APRN-PLASMA TABLE OPERATOR [address] [place], [place] [address] 03/15/2025 10:30 AM CDT Clinical Support [facility] Health Weight Management Services [address] [place] [phone] documented as of this encounter Visit Diagnoses Not on filedocumented in this encounter
--- OUTSIDE RECORDS SUMMARY | 2024-11-04 23:00 | XMS_ITS | Encounter Summary ---
Author Organization [facility] Health Address [address] [place] [address] Care Team Providers Care Glassware Maker Demonstrator Name Role Phone Unavailable Primary Care Provider Unavailabl e Encounter Details Date Type Department Care Team (Late st Contact Info) Description 09/17/2020 2:30 PM CHEMICAL LAB SUPERVISOR Video Visit [facility] Weight Management Services [address] [place] [address] [place] [address] [phone] Morbid obesity (HCC) Social History Tobacco Use Types Packs/Day Years Used Date Smoking Tobacco: Former Cigarettes Q uit: 06/2020 Smokeless Tobacco: Never Alcohol Use Standard Drinks/Week Comments Yes 14 (1 standard drink = 0.6 oz pu re alcohol) Sex and Gender Information Value Date Recorded Sex Assigned at Female 11/25/2020 1:10 PM CHEMICAL LAB SUPERVISOR Gender Identity Female 11/25/2020 1:10 PM CHEMICAL LAB SUPERVISOR Sexual Orientation Straight 02/02/2021 4: 18 PM CDT documented as of this encounter Last Filed Vital Signs Vital Sign Reading Time Taken Comments Blood Pressure - - Pulse - - Temperature - - Respiratory Rate - - Oxygen Saturation - - Inhaled Oxygen Concentration - - Weight 112.9 kg (249 lb) 09/17/2020 10:59 AM CHEMICAL LAB SUPERVISOR Height 160 cm (5' 3 ) 09/17/2020 10:59 AM CHEMICAL LAB SUPERVISOR Body Mass Index 44.11 09/17/2020 10:59 AM CHEMICAL LAB SUPERVISOR documented in this encounter Progress Notes * Sasha Pineda, BARBY/SIN - 09/17/2020 2:30 PM CST MEDICAL NUTRITION THERAPY Weight Management Services Bariatric Surgery Follow-Up Session Number: Session II Patient Verification & Telemedicine Based Consent I [...] billing and collection practices of [facility]. Patient location: Home This encounter was performed using: audio and video Total time spent on visit on date of encounter is: 13 minutes Session Date: 09/17/20 Patient: Maria Del Carmen Ray Date of : 1975 (45 year old) PCP Physician: Rose Marie Norton APRN-BLAKE Referring Physician: Kelly NUTRITION ASSESSMENT Primary Diagnoses/Co-morbidities: Morbid Obesity Have you seen a dietitian?: Yes Pertinent Labs: no new to review Pertinent Medications: reviewed Current V/M Supplements: n/a Eating History Are you following a special diet at home?: Weight Reduction Are you having trouble following your diet?: Yes Are you having any trouble eating?: No Are you avoiding salty food, and not adding salt to your food?: No Are you limiting your liquids?: No How much liquids per day do you drink?: 64+ oz/day Usual Number of Times You Eat Out Per Week : 1-3 per week Who prepares the meals?: Self(boyfriend) Exercise Type of exercise?: Walking;Resistance How many times do you exercise each week?: 4 How many minutes of exercise each time?: 30 Minutes Weight History Height: 5' 3 (160 cm) Initial Program Weight: 255.6# BMI: 45.28 Current Weight: 249 lb (112.9 kg) Weight Method (Utilize Scales): Stated BMI (Calculated): 44.12 Has your weight changed since last visit?: Loss #(6.6#) Total Program Weight Loss: 6.6# Pt seen for nutrition f/u. Pt is planning VSG. Pt's weight is down 6.6# since last visit, down 6.6#since beginning program. Pt reports using 1 protein shake occasionally, not daily. Pt reports son bought her powder. Pt reports trying to limit eating out to 1-2x/week now since starting program. Pt is walking and going to gym for exercise. Reviewed food recall and vitamins. 24 Hour Food Recall Breakfast - protein shake- Body Fortress whey powder-2 scoops, 8 oz skim milk Lunch - Chick-Omar-A fontana salad-grilled chicken - 1/2 Dinner - other half of above salad Snacks - none Beverages - 1/2 gallon of water with lemon, cranberry juice NUTRITION DIAGNOSIS Diagnosis: Overweight/obesity;Self-Monitoring deficit;Disordered eating pattern Related to: not ready for diet/lifestyle change As evidenced by: BMI of 44.12 and pt food recall. NUTRITION INTERVENTION Interventions: Motivational interviewing;Goal setting;Self-monitoring;Problem solving;Recommended modifications;Collaboration with other providers Reviewed healthy balance diet for weight loss using protein shakes. Reviewed the foster bariatric dietprinciples. Further instruction provided for phases of bariatric diet. Reinforced behavior changes for bariatric diet such as no straws and smaller plate. Explained importance of continued bariatric vitamin/mineral and protein supplementation. Pt v/u. Pt will use 1-2 protein shakes/day as meals. Reinforced importance as requirement for surgery. Reviewed options. Reviewed bariatric plate model with portions and reinforced choosing lean proteins first, then non-starchy vegetables and to limit CHOS to <1/2 c/meal. Reviewed mindful eating techniques and reinforced limiting snacking to 1-2x/week. Reinforced no soda/SSB and reviewed alternatives.Encouraged exercise as able. Pt v/u and agreeable to f/u in 2 months. Reviewed with pt how to complete 2 more SG via Facebook. External Barriers to Change: inconsistent shake use NUTRITION MONITORING/EVALUATION Nutrient Needs: Goals: Nutrition Goal #1: 1-2 protein shakes/day as meals Nutrition Goal #2: Reduce portions by 1/3Nutrition Goal #3: No SSB Monitor/Evaluation: Monitoring and evaluation: Fluid/beverage intake;Food intake;Protein intake;Carbohydrate intake;Mineral/element intake;Food and nutrition knowledge/skills;Beliefs and attitudes;Adherence;Physical activity;Weight change;Body Mass index RD contact information provided. Pt encouraged to call RD with questions and/or concerns. Evaluation of Overall Compliance Potential: Comprehension: Often Demonstrated Receptivity: Often Demonstrated Adherence: Often Demonstrated Session Information Session Date: 09/17/20 Session Beginning Time: 1424 Session ending time: 1437 Session total minutes: 13 Minutes Teaching Method: Explanation;Demonstration;Teach Back Next visit: (2 month f/u) Total MNT minutes this calendar year: 45/240 Nutritional Review ?? Cleared, additional RD visits required pre-op ___ ?? Cleared, no additional RD visits required pre-op ___ ?? Not cleared, additional RD visit(s) required pre-op _X__ ?? Continue with post op RD visits per protocol ___ Sasha Pineda RD/SIN ICAL LAB SUPERVISOR documented in this encounter Plan of Treatment Upcoming Encounters Date Type Department Care Team (Late st Contact Info) Description 03/15/2025 10:00 AM CDT Office Visit [facility] Health Weight Management Services [address] [place] [address] Vianey Llanes, ORE CRUSHER-TURNTABLE WORKER [address] [place] [address] 03/15/2025 10:30 AM CDT Clinical Support [facility] Health Weight Management Services [address] [place] [address] documented as of this encounter Visit Diagnoses Diagnosis Morbid obesity (HCC)- Primary Morbid obesity documented in this encounter
--- OUTSIDE RECORDS SUMMARY | 2024-11-04 23:00 | XMS_ITS | Encounter Summary ---
Author Organization [facility] Address [address] [facility] [place] [address] Care Team Providers Care Carton Forming Machine Helper Name Role Phone Unavailable Primary Care Provider Unavailabl e Encounter Details Date Type Department Care Team (Latest Contact Info) Description 02/20/2021 Travel Social History Tobacco Use Types Packs/Day Years Used Date Smoking Tobacco: Former Cigarettes Q uit: 06/2020 Smokeless Tobacco: Never Alcohol Use Standard Drinks/Week Comments Yes 14 (1 standard drink = 0.6 oz pu re alcohol) Sex and Gender Information Value Date Recorded Sex Assigned at Female 11/25/2020 1:10 PM SITECORE DEVELOPER Gender Identity Female 11/25/2020 1:10 PM SITECORE DEVELOPER Sexual Orientation Straight 02/02/2021 4: 18 PM CDT COVID-19 Exposure Response Date Recorded In the last month, have you been in contact with someone who was confirmed or suspected to have Coronavirus / COVID-19? No / Unsure 02/20/2021 6:40 AM CDT documented as of this encounter [...] Description 03/15/2025 10:00 AM CDT Office Visit [facility] Health Weight Management Services [address] [place] [phone] Vianey Llanes, BIOSTATISTICS MANAGER-BRIDGE REPAIR CREW PERSON [address] [place], [place] [phone] 03/15/2025 10:30 AM CDT Clinical Support [facility] Health Weight Management Services [address] [place] [address] documented as of this encounter Visit Diagnoses Not on filedocumented in this encounter Additional Health Concerns Infection Onset Date Last Indicated Resolved Time COVID-19 Under Investigation 02/20/2021 02/20/2021 02/21/2021 10:47 AM CDT documented as of this encounter
--- OUTSIDE RECORDS SUMMARY | 2024-11-04 23:00 | XMS_ITS | Encounter Summary ---
Author Organization [facility] Health Address [address] [place] [address] Care Team Providers Care Hand Sign Writer Name Role Phone Unavailable Primary Care Provider Unavailabl e Encounter Details Date Type Department Care Team (Late st Contact Info) Description 03/02/2021 Orders Only [facility] Management Services [address] [place] [phone] Tram Pemberton, INSURANCE BILLING SPECIALIST-DIRECTOR AUTOMOTIVE [address] [address] Bariatric surgery status Social History Tobacco Use Types Packs/Day Years Used Date Smoking Tobacco: Former Cigarettes Q uit: 06/2020 Smokeless Tobacco: Never Alcohol Use Standard Drinks/Week Comments Yes 14 (1 standard drink = 0.6 oz pu re alcohol) Sex and Gender Information Value Date Recorded Sex Assigned at Female 11/25/2020 1:10 PM EXECUTIVE ADMINISTRATIVE ASST Gender Identity Female 11/25/2020 1:10 PM EXECUTIVE ADMINISTRATIVE ASST Sexual Orientation Straight 02/02/2021 4: 18 PM [...] Description 03/15/2025 10:00 AM CDT Office Visit [facility] Weight Management Services [address] [place] [phone] Vianey Llanes, INSURANCE BILLING SPECIALIST-DIRECTOR AUTOMOTIVE [address] [place] [address] 03/15/2025 10:30 AM CDT Clinical Support [facility] Weight Management Services [address] [place] [phone] documented as of this encounter Visit Diagnoses Diagnosis Bariatric surgery status- Primary documented in this encounter
--- OUTSIDE RECORDS SUMMARY | 2024-11-04 23:00 | XMS_ITS | Encounter Summary ---
Author Organization [facility] Health Address [address] [place] [address] Care Team Providers Care Industrial Waste Treatment Technician Name Role Phone Unavailable Primary Care Provider Unavailabl e Reason for Visit * Reason Comments Obesity Follow Up Encounter Details Date Type Department Care Team (Late st Contact Info) Description 01/01/2021 1:00 PM FIREFIGHTER Video Visit [facility] Management Services [address] [place] [phone] [place]endoza [place] [id number] [place] [phone] Tram Pemberton, SUPERVISOR MICROWAVE-PACKAGE CLERK [address] [address] Morbid obesity (HCC) ; Body mass index (BMI) of 40.0-44.9 in adult (HCC); Gastroesophageal reflux disease, unspecified whether esophagitis present; Anxiety; Arthralgia, unspecified joint; History of smoking; Vitamin D deficiency; Nonspecific abnormal electrocardiogram (ECG) (EKG) Social History Tobacco Use Types Packs/Day Years Used Date Smoking Tobacco: Former Cigarettes Q uit: 06/2020 Smokeless Tobacco: Never Alcohol Use Standard Drinks/Week Comments Yes 0 (1 standard drink = 0.6 oz pur e alcohol) OCC. Sex and Gender Information Value Date Recorded Sex Assigned at Female 11/25/2020 1:10 PM FIREFIGHTER Gender Identity Female 11/25/2020 1:10 PM FIREFIGHTER Sexual Orientation Straight 02/02/2021 4 :18 PM CDT documented as of this encounter Last Filed Vital Signs Vital Sign Reading Time Taken Comments Blood Pressure - - Pulse - - Temperature - - Respiratory Rate - - Oxygen Saturation - - Inhaled Oxygen Concentration - - Weight 109.6 kg (241 lb 9.6 oz) 12:00 PM FIREFIGHTER per pt Height 160 cm (5' 3 ) 01/01/2021 12:00 PM FIREFIGHTER Body Mass Index 42.8 01/01/2021 12:00 PM FIREFIGHTER documented in this encounter Progress Notes * Tram Pemberton APRN-CNP - 01/01/2021 7:59 AM CST [facility] Services at [address] [address] . . Date of encounter: 01/01/2021 Provider: SANGEETHA Rai Patient: Maria Del Carmen Ray CSN: [id number] Specialty: Bariatric Surgery Date of : 1975 Today's visit was conducted virtually due to COVID-19 countermeasures. The patient has given verbalconsent to have today's visit conducted by this same means with treatment provided remotely. The patient verbally consents to the billing and collection practices of [facility]. Visit type: Bariatrics Virtual Pre-operative follow up Maria Del Carmen Ray 45 year old female was referred by SANGEETHA Kumar for Bariatrics pre-opfollow up via telemedicine encounter regarding: . Bariatric Preop HPI her last encounter with a provider with this clinic was on 11/25/2020 The procedure requested is Laparoscopic Sleeve Gastrectomy. Patient is attending support group meeting. The patient has been participating in an online supportgroup. No of support group meeting attended 3/ Patient is taking 30-60 grams of proteins supplements daily. Patient is taking 100oz of fluid per day. Doing 15 minutes of exercise daily. Weight change as in weight history below. Weight History: Initial Weight: 255.6 lb. BMI [...] Total Wt Loss in lb: 14 lb Obesity History Years at current weight? [...] you have an unusual work schedule? no [place] Sleepiness Scale total points: 1 No past medical history on file. Past Surgical History: Procedure Laterality Date ??? Appendectomy 03/1999 ??? Hysterectomy 12/2018 partial Social History Socioeconomic History ??? Marital status: Single Spouse name: Not on file ??? Number of children: Not on file ??? Years of education: Not on file ??? Highest education level: Not on file Occupational History ??? Not on file Social Needs ??? Financial resource strain: Not on file ??? Food insecurity Worry: Not on file Inability: Not on file ??? Transportation needs Medical: Not on file Non-medical: Not on file Tobacco Use ??? Smoking status: Former Smoker Quit date: 06/2020 Years since quittin.5 ??? Smokeless tobacco: Never Used Substance and Sexual Activity ??? Alcohol use: Yes Comment: OCC. ??? Drug use: Never ??? Sexual activity: Not on file Lifestyle ??? Physical activity Days per week: Not on file Minutes per session: Not on file ??? Stress: Not on file Relationships ??? Social connections Talks on phone: Not on file Gets together: Not on file Attends confucianism service: Not on file Active member of club or organization: Not on file Attends meetings of clubs or organizations: Not on file Relationship status: Not on file ??? Intimate partner violence Fear of current or ex partner: Not on file Emotionally abused: Not on file Physically abused: Not on file Forced sexual activity: Not on file Other Topics Concern ??? Not on file Social History Narrative ??? Not on file Family History Problem Relation Name Age of Onset ??? Hypertension Mother ??? Hypertension Father ??? CVA Father Outpatient Medications Marked as Taking for the 01/01/21 encounter (Video Visit) with Tram Pemberton APRN-CNP Medication Sig ??? vitamin D, ergocalciferol, (DRISDOL) 1.25 MG (13541 UT) capsule Take 1 capsule by mouth every 7days Reasons: Vitamin D Deficiency (Not in a hospital admission) Allergies Allergen Reactions ??? Amoxicillin Rash and Unknown Objective: Vital Signs: Ht 5' 3 (1.6 m) Wt 241 lb 9.6 oz (109.6 kg) BMI 42.8 kg/m2 Weight: 241 lb 9.6 oz (109.6 kg)(per pt) Height: 5' 3 (160 cm) Body mass index is 42.8 kg/m??. Review of Systems Constitutional: Negative for chills and fever. Respiratory: Negative for cough, sputum production and shortness of breath. Cardiovascular: Negative for chest pain and leg swelling. Gastrointestinal: Negative for abdominal pain, constipation, diarrhea, heartburn, nausea and vomiting. Musculoskeletal: Positive for joint pain. Constitutional: Alert, awake and oriented without any apparent discomfort. Eyes: Anicteric. Psychiatric: The patient's mood and affect appeared to be appropriate Labs Some lab results will be in paper format so may be scanned in the EMR. Imaging studies EKG:??2020??Normal sinus rhythm ??Inferior t wave abnormality When compared with ECG of 05-OCT-2014 16:14, Nonspecific T wave abnormality is now seen in lead aVF ?? CHEST XRAY:??2020 ?? CARDIAC EVALUATION: ??Dr Chavarria 11/24/2020?? Assessment and Plan Assessment: No diagnosis found. Morbid Obesity Weight change as in weight history. Total Weight lost since start of the program: 14 lbs. she had visited with the Dietitian since the last visit and she is adjusting the diet. she started on an exercise program is helping her weight loss plan. Continue on liquid protein diet replacement therapy. Patient has a??6??months primary care physician supervised diet requirement. Has completed??5 / 6??months. ?? Will plan for Laparoscopic Sleeve Gastrectomy provided all the tests are done satisfactorily, once the insurance is approved and all the follow-up clearances are done. BMI of 42.80 GERD Complains of reflux symptoms occasionally. We'll plan for an EGD to rule out H. pylori and any anatomic abnormality.??Will proceed with EGD. ??The procedure was described in detail to the patient. Risks discussed including bleeding, infection, perforation, need for subsequent procedure. Written handout of preparation for procedure provided to patient today. Patient verbalizes understanding and denies any further questions ?? She has history of Colonoscopy on 08/09/2019 -I do not have theses results for review ?? Anxiety Patient anxious about surgery and the course. Explained in detail the surgery. If on SSRI or anxiety medication, I will continue the same now and perioperatively. I will obtain a psychiatric evaluation for pre-operative clearance. She is scheduled for this evaluation on 12/23/2020 ?? Arthritis Due to being overweight and [...] surgery.? #1 Nicotine 12/18/2020 Negative #2 Nicotine ? Vitamin D Deficiency She is tolerating repletion per protocol ?? Abnormal Finding of EKG Preoperative EKG performed on 2020 revealed finding of??Normal sinus rhythm Inferior t wave abnormality When compared with ECG of 05-OCT-2014 16:14, Nonspecific T wave abnormality is now seen in lead aVF??- Cardiac clearance obtained 11/24/[address] Chavarria ?? Consults and Test ordered:?? Psychology/psychiatry consult for pre-operative clearance. EGD. Nicotine Screen x 1 Ferritin ?? 1 /??6??month physician supervised diet. ?? Follow up: Will see me in 1 month. Patient location: Home This encounter was performed using: audio and video Time spent with patient/proxy: 11 minutes The plan was reviewed with the patient and the patient confirmed understanding of the plan and all follow-up steps. Patient is agreeable with this plan after shared decision making with patient. All aspects of patient's medical history were reviewed and updated as documented in Epic SANGEETHA Rai CC: SANGEETHA Kumar FIGHTER documented in this encounter Plan of Treatment Upcoming Encounters Date Type Department Care Team (Late st Contact Info) Description 03/15/2025 10:00 AM CDT Office Visit [facility] Management Services [address] [place] [phone] Vianey Llanes APRN-PACKAGE CLERK [address], [place] [phone] 03/15/2025 10:30 AM CDT Clinical Support [facility] [address] [place] [address] documented as of this encounter Visit Diagnoses Diagnosis Morbid obesity (HCC)- Primary Morbid obesity Body mass index (BMI) of 40.0-44.9 in adult (HCC) Body Mass Index 40.0-44.9, adult Gastroesophageal reflux disease, unspecified whether esophagitis present Anxiety Anxiety state, unspecified Arthralgia, unspecified joint History of smoking Personal history of tobacco use, presenting hazards to health Vitamin D deficiency Nonspecific abnormal electrocardiogram (ECG) (EKG) documented in this encounter
--- OUTSIDE RECORDS SUMMARY | 2024-11-04 23:00 | XMS_ITS | Encounter Summary ---
Author Organization [facility] Health Address [address] [address] Care Team Providers Care School Clerk Name Role Phone Unavailable Primary Care Provider Unavailabl e Reason for Visit * Reason Onset Date Comments General 02/04/2021 Encounter Details Date Type Department Care Team (Late st Contact Info) Description 02/04/2021 Telephone [facility] Management Services [address] [place] [phone] Rehan Mendoza MD [address] [place] [phone] General Social History Tobacco Use Types Packs/Day Years Used Date Smoking Tobacco: Former Cigarettes Q uit: 06/2020 Smokeless Tobacco: Never Alcohol Use Standard Drinks/Week Comments Yes 14 (1 standard drink = 0.6 oz pu re alcohol) Sex and Gender Information Value Date Recorded Sex Assigned at Female 11/25/2020 1:10 PM APPRENTICE Gender Identity Female 11/25/2020 1:10 PM APPRENTICE Sexual Orientation Straight 02/02/2021 4: 18 PM [...] encounter Miscellaneous Notes * Telephone Encounter - Ashlee Sanchez CNA - 02/04/2021 9:21 AM CDT Discussed with pt that insurance requirements for [place] include the need for repeat EGD. Their policy shows that gastritis and ulcer disease are contraindications to surgery and required negative EGD prior to surgery. We will need to do a repeat EGD and reschedule her surgery to early March. Pt v/u. Will confirm with provider when repeat EGD can be done and will call her back with new dates for all. documented in this encounter Plan of Treatment Upcoming Encounters Date Type Department Care Team (Late st Contact Info) Description 03/15/2025 10:00 AM CDT Office Visit [facility] Weight Management Services [address] [place] [phone] Vianey Llanes, HEALTH CAREERS INSTRUCTOR-SAND MILL OPERATOR FACING SAND [address] [place] [address] 03/15/2025 10:30 AM CDT Clinical Support [facility] Weight Management Services [address] [place] [phone] documented as of this encounter Visit Diagnoses Not on filedocumented in this encounter
--- OUTSIDE RECORDS SUMMARY | 2024-11-04 23:00 | XMS_ITS | Encounter Summary ---
Author Organization [facility] Address [address] [address] Care Team Providers Care Table Worker Packager Name Role Phone Unavailable Primary Care Provider Unavailabl e Reason for Visit * Auth/Cert Specialty Diagnoses / Procedures Referred By Veronica bonner Referred To Contact Diagnoses Gastroesophageal reflux disease, unspecified whether esophagitis present Gastroesophageal reflux disease, unspecified whether esophagitis present [K21.9] Procedures ESOPHAGOGASTRODUODENOSCOPY (EGD) BIOPSY Referral ID Status Reason Start Date Expiration Date Visits Re quested Visits Authorized [id number] 1 1 Encounter Details Date Type Department Care Team (Latest Contact Info) Description 02/02/2021 11:16 AM CDT - 02/02/2021 11:35 AM CDT Surgery [facility] [address] [place] [address] [place] [id number] [facility] [address] [place] [phone] ESOPHAGOGASTRODUODENOSCOPY WITH BIOPSY Surgery Details Date/Time Status Location OR Service Patient Class Case Class Case Type Trauma Case? 02/02/2021 11:16 AM Posted [facility] OR 2 Gastroenterology Surgery Day Care Elective > 5 days Panel 1 Procedure LRB Anes Op Region Wound Class Comments ESOPHAGOGASTRODUODENOSCOPY WITH BIOPSY N/A DONALD YUSUF Surgeon Surgeon Role Service Panel Rehan Mendoza MD Primary Gastroenterology 1 Special Needs ARRIVAL TIME: documented in this encounter Social History Tobacco Use Types Packs/Day Years Used Date Smoking Tobacco: Former Cigarettes Q uit: 06/2020 Smokeless Tobacco: Never Alcohol Use Standard Drinks/Week Comments Yes 14 (1 standard drink = 0.6 oz pu re alcohol) Sex and Gender Information Value Date Recorded Sex Assigned at Female 11/25/2020 1:10 PM PROPERTY [employer] Gender Identity Female 11/25/2020 1:10 PM PROPERTY [employer]ER Sexual Orientation Straight 02/02/2021 4: 18 PM CDT COVID-19 Exposure Response Date Recorded In the last month, have you been in contact with someone who was confirmed or suspected to have Coronavirus / COVID-19? No / Unsure 01/30/2021 6:27 AM CDT documented as of this encounter Last Filed Vital Signs Vital Sign Reading Time Taken Comments Blood Pressure 140/87 02/02/2021 8:50 AM CDT Pulse 68 02/02/2021 8:25 AM CDT Temperature 37 ??C (98.6 ??F) 02/02/2021 8:25 AM CDT Respiratory Rate 16 02/02/2021 8:25 AM CDT Oxygen Saturation 99% 02/02/2021 8:25 AM CDT Inhaled Oxygen Concentration - - Weight 113 kg (249 lb 1.9 oz) 02/02/2021 8:25 AM CDT Height 162.6 cm (5' 4 ) 02/02/2021 8:25 AM CDT Body Mass Index 42.76 02/02/2021 8:25 AM CDT documented in this encounter Functional [...] Sig Dispensed Refills Start Date End Date omeprazole (PRILOSEC) 20 MG capsule Take 1 capsule by mouth once daily 02/23/2021 vitamin D, ergocalciferol, (DRISDOL) 1.25 MG (70192 UT) capsuleIndications:Vit meza D Deficiency Take 1 capsule by mouth every 7 days Reasons: Vitamin D Deficiency 4 capsule 3 09/17/2020 03/10/2021 documented as of this encounter H&P Notes * Rehan Mendoza MD - 02/02/2021 11:43 AM CDT Admit Date: 02/02/2021 This patient? s prior H&P was reviewed, the patient was examined and no change has occurred in the patient's condition since the prior H&P was completed. Rehan Mendoza MD Source Note - Tram Pemberton APRN-CNP - 01/13/2021 7:51 AM PROPERTY VALUER [facility] [place] [address] . . Date of encounter: 01/13/2021 Provider: SANGEETHA Rai Patient: Maria Del Carmen aRy CSN: [id number] Specialty: Bariatric Surgery Date of : 1975 Visit type: Bariatrics Pre-operative follow up Maria Del Carmen Ray 45 year old female was referred by SANGEETHA Kumar for Bariatrics pre-opfollow up. Bariatric Preop HPI she was seen last on 01/01/2021 The procedure requested is Sleeve Gastrectomy. Patient is attending support group meeting. The patient has been participating in an online supportgroup. No of support group meeting attended 01/07 Patient is taking 30-60 grams of proteins supplements daily. Patient is taking 100 oz of fluid per day. Doing 15 minutes of exercise daily. The patient has not been participating in NExT program. Weight change as in weight history below. [...] Total Wt Loss in lb: 17.3 lb Obesity History Years at current weight? 13 Years at 35 pounds overweight? 13 Years 100 pounds overweight? Age patient started to diet? 41 Maximum weight reached? 255 Most significant weight loss: Amount of weight loss 20lb Months weight loss sustained 2 months Method of weight loss phentermine No past medical history on file. Past [...] Former Smoker Quit date: 06/2020 Years since quittin.6 ??? Smokeless tobacco: Never Used Substance and Sexual Activity ??? Alcohol use: Yes Comment: OCC. ??? Drug use: Never ??? Sexual activity: Not on file Lifestyle ??? Physical activity Days per week: Not on file Minutes per session: Not on file ??? Stress: Not on file Relationships ??? Social connections Talks on phone: Not on file Gets together: Not on file Attends protestant service: Not on file Active member of [...] Outpatient Medications Marked as Taking for the 01/13/21 encounter (Office Visit) with Tram Pemberton APRN-CNP Medication Sig ??? vitamin D, ergocalciferol, (DRISDOL) 1.25 MG (67030 UT) capsule Take 1 capsule by mouth every 7days Reasons: Vitamin D Deficiency (Not in a hospital admission) Allergies Allergen Reactions ??? Amoxicillin Rash and Unknown Objective: Vital Signs: BP 130/94 Pulse 54 Temp 96.6 ??F (35.9 ??C) (Temporal) Resp 14 Ht 5' 3 (1.6 m) Wt 238 lb 4.8 oz (108.1 kg) SpO2 98% BMI 42.21 kg/m2 Weight: 238 lb 4.8 oz (108.1 kg) Height: 5' 3 (160 cm) Body mass index is 42.21 kg/m??. Physical Exam Physical Exam Constitutional: She is oriented to person, place, and time and well-developed, well-nourished, and in no distress. No distress. HENT: Head: Normocephalic and atraumatic. Cardiovascular: Normal rate, regular rhythm and normal heart sounds. Pulmonary/Chest: Effort normal and breath sounds normal. No respiratory distress. She has no wheezes. Abdominal: Soft. Bowel sounds are normal. She exhibits no distension. There is no abdominal tenderness. Musculoskeletal: General: No edema. Neurological: She is alert and oriented to person, place, and time. Labs Some lab results will be in paper format so may be scanned in the EMR. Imaging studies EKG:??2020??Normal sinus rhythm ??Inferior t wave abnormality When compared with ECG of 05-OCT-2014 16:14, Nonspecific T wave abnormality is now seen in lead aVF ?? CHEST XRAY:??2020 ?? CARDIAC??EVALUATION: ?Aura 11/24/2020? Assessment and Plan Assessment: (E66.01) Morbid obesity (primary encounter diagnosis) (Z68.41) Body mass index (BMI) of 40.0-44.9 in adult (K21.9) Gastroesophageal reflux disease, unspecified whether esophagitis present (F41.9) Anxiety (M25.50) Arthralgia, unspecified joint (Z87.891) History of smoking (E55.9) Vitamin D deficiency (R94.31) Nonspecific abnormal electrocardiogram (ECG) (EKG) Morbid Obesity Weight change as in weight history. Patient has lost 3.3 pounds since their last visit. Total Weight lost since start of the program: 17.3 lbs. Patient continues to follow up with the dietitian and is continuing to make healthy lifestyle changes. Discussed the importance of exercise and increasing their daily activities to further their weight loss journey and for overall health. Continue on liquid protein diet replacement therapy. Patient has a 6 months primary care physician supervised diet requirement. Has completed 6/6 months. Will plan for Laparoscopic Sleeve Gastrectomy provided all the tests are done satisfactorily, once the insurance is approved and all the follow-up clearances are done. BMI of 42.21 GERD Complains of reflux symptoms occasionally. We'll plan for an EGD to rule out H. pylori and any anatomic abnormality.??Will proceed with EGD on 02/02/2021. ?? She has history of Colonoscopy on 08/09/2019 -I do not have these results for review? Anxiety Patient anxious about surgery and the [...] Nicotine 12/18/2020 Negative #2 Nicotine 01/08/2021 - await results ? Vitamin D Deficiency She is tolerating repletion per protocol ?? Abnormal Finding of EKG Preoperative EKG performed on 2020 revealed finding of??Normal sinus rhythm Inferior t wave abnormality When compared with ECG of 05-OCT-2014 16:14, Nonspecific T wave abnormality is now seen in lead aVF??- ??Cardiac clearance obtained 11/24/2020 byDr Chavarria ?? Consults and Test ordered:?? EGD- Scheduled for 02/02/2021. Nicotine Screen x 1- She is to have results faxed to our clinic Follow up: Will see the provider in 1 month if needed- pending review of EGD results- If EGD normal, I will submit her information to our vehicle insurance agent for review. She verbalized understanding and is agreeable to this plan after shared decision making with patient. SANGEETHA Rai CC: SANGEETHA Kumar ERTY VALUER documented in this encounter OR Notes * Operative - Rehan Mendoza MD - 02/02/2021 11:16 AM CDT EGD OPERATIVE REPORT Pt Name: Maria Del Carmen Ray Date of Service: 02/02/2021 12:32 PM Patient Name: Maria Del Carmen Ray Referring Physician: SANGEETHA Kumar SURGEON: Surgeon(s) and Role: * Rehan Mendoza MD - Primary TITLE ATTORNEY: Baking Factory Worker: King Barros RN Scrub Person: Crista Ventura RN; Catherine Gabriel RN Help Start: Khushbu Diaz RN Baking Factory Worker Orientee: Priya Hurtado RN Pre Procedure Diagnosis: Gastroesophageal reflux disease, unspecified whether esophagitis present [K21.9] Post Procedure Diagnosis: Same Informed Consent: Informed consent was obtained for the procedure, including sedation. Risks of perforation, hemorrhage, adverse drug reaction and aspiration were discussed. Based on the pre-procedure assessment, including review of the patient's medical history, medications, allergies and review of systems, she hadbeen deemed to be an appropriate candidate for MAC sedation. Procedure: Procedure(s): ESOPHAGOGASTRODUODENOSCOPY WITH BIOPSY (N/A) Details of the Procedure: she was sedated with the medications listed below. She was monitored continuously with EKG tracing,pulse oximetry, blood pressure monitoring, and direct observation. The gastroscope was inserted into the mouth and advanced under direct vision tosecond portion of the duodenum. A careful inspection was made as the gastroscope was withdrawn, including a retroflexed view of the proximal stomach; findings and interventions are described below. Biopsies from duodenumto r/o celiac disease and from pylorus to r/o H.Pylori was done. Appropriate photodocumentation was obtained. The patient tolerated the procedure well, and there were no complications. She was taken to the recovery area in stable condition. Sedation: Propofol Post Procedure Status: stable Specimen: ID Type Source Tests Collected by Time Destination A : duodenum biopsy Pathology/Cytology Duodenal Biopsy GROSS + MICRO EXAM (ILL) Rehan Mendoza MD 02/02/2021 1223 B : Pylorus biopsy Pathology/Cytology Biopsy GROSS + MICRO EXAM (ILL) Rehan Mendoza MD 02/02/2021 1223 C : GE junction Pathology/Cytology EG Junction Biopsy GROSS + MICRO EXAM (ILL) Rehan Mendoza MD 02/02/2021 1226 Yes Estimated Blood Loss:* No blood loss amount entered * Minimal Findings and Interventions: GEjn at 40 cm from incisors, irregular biospy obtained. Small superficial Pyloric ulcer, biopsy obtained Gastritis. No hiatal hernia Impression: Gastritis and small superficial pyloric ulcer. Rehan Mendoza M.D., F.A.C.S. documented in this encounter Plan of Treatment Upcoming Encounters Date Type Department Care Team (Late st Contact Info) Description 03/15/2025 10:00 AM CDT Office Visit [facility] [address] [place] [phone] Vianey Llanes, [employer] LEADER[employer] PARENT [address] [place] [address] 03/15/2025 10:30 AM CDT Clinical Support [facility] [address] [place] [phone] Scheduled Orders Name Type Priority Associated Diagnoses Orde r Schedule EGD GI Routine ONCE for 1 Occ urrences starting 02/02/2021 until 02/02/2021 documented as of this encounter Procedures Procedure Name Priority Date/Time Associated Diagnosis Comments GROSS + MICRO EXAM (ILL) Routine 02/02/2021 12:23 PM CDT Gastroesophageal reflux disease, unspecified whether esophagitis present PA EGD FLEX TRANSORAL W BX SNGL OR MULT 02/02/2021 12:13 PM CDT Gastroesophageal reflux disease, unspecified whether esophagitis present Special Needs ARRIVAL TIME: documented in this encounter Results * GROSS + MICRO EXAM (ILL) (02/02/2021 12:23 PM CDT) Case Report Surgical Pathology Report ? Case: [id number] ? Authorizing Provider: ??Rehan Mendoza MD ?Collected: ? 02/02/2021 12:23 PM ? Ordering Location: ? [facility] ?Received: ?02/03/2021 11:15 AM ? Pathologist: ? Chuckie Lujan MD ? Specimens: ?? A) - Duodenal Biopsy, duodenum biopsy ? B) - Biopsy, Pylorus biopsy r/o h pylori ? C) - EG Junction Biopsy , GE junction ? 02/06/2021 2:03 PM CDT [facility] Final Diagnosis A) SMALL INTESTINE, DUODENUM , BIOPSY: - DUODENAL MUCOSA WITH NO PATHOLOGIC ABNORMALITY. - NO EVIDENCE OF VILLOUS ATROPHY OR INTRAEPITHELIAL LYMPHOCYTOSIS. B) STOMACH, PYLORUS, BIOPSY: - ANTRAL MUCOSA WITH MILD REACTIVE CHANGES AND MINIMAL CHRONIC INFLAMMATION. - IMMUNOSTAIN FOR H-PYLORI IS PENDING (TO BE REPORTED IN AN ADDENDUM). C) GASTROESOPHAGEAL JUNCTION, BIOPSY: - REFLUX-LIKE SQUAMOUS REACTIVE CHANGES WITH MILD INTRAEPITHELIAL EOSINOPHILS. - HYPERPLASTIC COLUMNAR MUCOSA WITH NO EVIDENCE OF INTESTINAL METAPLASIA. 02/06/2021 2:03 PM CDT [facility] Microscopic Description and Comment The gastric mucosal changes are non-specific and appear reactive. Result of immunostain is pending which will be reported in an addendum upon completion of the test. The GEJ biopsy findings are compatible with reflux disease. 02/06/2021 2:03 PM CDT [facility] Clinical History Gastroesophageal reflux disease, unspecified whether esophagitis present Per EMR, endoscopy reported GEjn at 40 cm from incisors, irregular biospy obtained. Small superficial Pyloric ulcer, biopsy obtained Gastritis. No hiatal hernia 02/06/2021 2:03 PM CDT [facility] Gross Description Three specimens are received in formalin labeled Maria Del Carmen Ray. A. Labeled duodenum biopsy is a single pink-crow soft irregular tissue fragment measuring 0.4 x 0.3 x 0.3 cm submitted in toto in A1. B. Labeled pylorus biopsy rule out H. pylori are three pink-crow soft irregular tissue fragments measuring 0.65 x 0.3 x 0.2 cm in aggregate ranging from 0.2-0.6 cm in greatest dimension submitted in toto in B1. C. Labeled GE junction, EG junction biopsy are three pink-crow soft irregular tissue fragments measuring 0.6 x 0.6 x 0.2 cm in aggregate ranging from 0.2-0.6 cm in greatest dimension submitted in toto in C1. LS/scs 02/06/2021 2:03 PM T [facility] Disclaimer The performance characteristics of all immunohistochemical and indirect immunofluorescence stains (if any) cited in this report were determined by the [facility]opathology [facility] of [facility]. Some of these tests were developed by [...] H&E slides and special stains prepared at [facility], [place]. [address] (CLIA# [id number]) unless otherwise specified. This case was interpreted by the [facility] Department of Pathology. When applicable, select reference laboratory testing is performed at the [facility], [address] [place] [id number]. 02/06/2021 2:03 PM CDT [facility] Addendum 1 Immunostain for H-pylori: NEGATIVE Comment: Immunostain reveals no H-pylori organisms. Positive control is appropriately stained. 02/06/2021 2:03 PM CDT [facility] Addendum electronically signed by Chuckie Lujan MD on 02/06/2021 at 2:03 PM Embedded Images 02/06/2021 2:03 PM CDT [facility] Pathology/Cytology DUODENAL BIOPSY SPECIMEN / Unknown 02/02/2021 12:23 PM CDT 02/03/2021 11:15 AM CDT Comment:Pre-op diagnosis: Gastroesophageal reflux disease, unspecified whether esophagitis present [K21.9] Miscellaneous samples (specimen) BIOPSY / Unknown 02/02/2021 12:23 PM CDT 02/03/2021 11:15 AM CDT Comment:Pre-op diagnosis: Gastroesophageal reflux disease, unspecified whether esophagitis present [K21.9] Miscellaneous samples (specimen) BIOPSY SPECIMEN / Unknown 02/02/2021 12:26 PM CDT 02/03/2021 11:15 AM CDT Comment:Pre-op diagnosis: Gastroesophageal reflux disease, unspecified whether esophagitis present [K21.9] Rehan Mendoza MD LAB - PATHOLOGY/CYTO LOGY ORDERABLES Performing Organization Address [facility]/State/[facility] de Phone Number [facility] [address] documented in this encounter Visit Diagnoses Diagnosis Preop examination- Primary Preoperative examination, unspecified Preop examination Preoperative examination, unspecified Gastroesophageal reflux disease, unspecified whether esophagitis present Gastroesophageal reflux disease, unspecified whether esophagitis present documented in this encounter Administered Medications Inactive Administered Medications - up to 3 most recent administrations Medication Order MAR Action Action Date Dose Rate Site 0.9% NaCl injection 3 mL 3 mL, Intracatheter, PRE-PROCEDURE MULTIPLE, Starting on Tue02/02/21 at 0827, Until Tue02/02/21 at 1449, For Saline Lock flushes if one is inserted for Bronchoscopy/Endoscopy procedure., Pre-procedure (GI) $ Given 02/02/2021 8:48 AM CDT 3 mL famotidine (Pepcid) injection 20 mg 20 mg, Intravenous, PRE-OP ONCE, 1 dose, On Tue02/02/21 at 0830, Dilute 2 mL of injection with 0.9% NaCl or D5W solution to a volume of 5 to 10 ml. Push over a period of at least 2 minutes. Dilute with 0.9% NaCl or D5W solution to a volume of 5 to 10 ml and administer over at least 2 minutes., Pre-op $ Given 02/02/2021 8:49 AM CDT 20 mg lactated ringers infusion at 75 mL/hr, Intravenous, PRE-OP CONTINUOUS, Starting on Tue02/02/21 at 0830, Until Tue02/02/21 at 1449, Pre-op $ New Bag/Syringe 02/02/2021 8:48 AM CDT 75 mL/hr naloxone (Narcan) injection 0.04 mg 0.04 mg, Intravenous, POST-OP MULTIPLE, Starting on Tue02/02/21 at 1239, Until Tue02/02/21 at 1449, Notify physician immediately, and mix 0.4 mg Naloxone in 9 mL Normal Saline for slow IV push. Administer dilute Naloxone solution IV very slowly (1 mL over 30 seconds) while observing the patient response and titrating to effect. If no response, call Rapid Response, continue IV Naloxone at the same rate up to a total of 0.8 mg of diluted Naloxone., PACU documented in this encounter Active and Recently Administered Medications Times are shown in CDT. Scheduled Medication Order 01/31/2021 02/01/2021 02/02/2021 0.9% NaCl injection 3 mL 3 mL, Intracatheter, PRE-PROCEDURE MULTIPLE, Starting on Tue02/02/21 at 0827, Until Tue02/02/21 at 1449, For Saline Lock flushes if one is inserted for Bronchoscopy/Endoscopy procedure., Pre-procedure (GI) 0848 ($ Given - Prov ider: Elizabeth Vogel RN) famotidine (Pepcid) injection 20 mg (COMPLETED) 20 mg, Intravenous, PRE-OP ONCE, 1 dose, On Tue02/02/21 at 0830, Dilute 2 mL of injection with 0.9% NaCl or D5W solution to a volume of 5 to 10 ml. Push over a period of at least 2 minutes. Dilute with 0.9% NaCl or D5W solution to a volume of 5 to 10 ml and administer over at least 2 minutes., Pre-op 0849 ($ Given - Prov ider: Elizabeth Vogel RN) naloxone (Narcan) injection 0.04 mg 0.04 mg, Intravenous, POST-OP MULTIPLE, Starting on Tue02/02/21 at 1239, Until Tue02/02/21 at 1449, Notify physician immediately, and mix 0.4 mg Naloxone in 9 mL Normal Saline for slow IV push. Administer dilute Naloxone solution IV very slowly (1 mL over 30 seconds) while observing the patient response and titrating to effect. If no response, call Rapid Response, continue IV Naloxone at the same rate up to a total of 0.8 mg of diluted Naloxone., PACU Continuous Medication Order 01/31/2021 02/01/2021 02/02/2021 lactated ringers infusion at 75 mL/hr, Intravenous, PRE-OP CONTINUOUS, Starting on Tue02/02/21 at 0830, Until Tue02/02/21 at 1449, Pre-op 0848 ($ New Bag/Syri nge - Provider: Elizabeth Vogel RN) documented in this encounter
--- OUTSIDE RECORDS SUMMARY | 2024-11-04 23:00 | XMS_ITS | Encounter Summary ---
Author Organization [facility] Health Address [address] [place] [address] Care Team Providers Care Digital Strategy Specialist Name Role Phone Unavailable Primary Care Provider Unavailabl e Reason for Visit * Reason Comments Obesity Follow Up Encounter Details Date Type Department Care Team (Late st Contact Info) Description 11/25/2020 1:30 PM MANAGER AMBULATORY Video Visit [facility] [address] [place] [phone] [place]endo[place] [id number] [place] [phone] Tram Pemberton, DETECTIVE CHIEF-ALGEBRA TEACHER [address] [address] Morbid obesity (HCC) ; Body mass index [...] Assigned at Female 11/25/2020 1:10 PM MANAGER AMBULATORY Gender Identity Female 11/25/2020 1:10 PM MANAGER AMBULATORY Sexual Orientation Straight 02/02/2021 4 :18 PM CDT documented as of this encounter Last Filed Vital Signs Vital Sign Reading Time Taken Comments Blood Pressure - - Pulse - - Temperature - - Respiratory Rate - - Oxygen Saturation - - Inhaled Oxygen Concentration - - Weight 109.8 kg (242 lb) 11/25/2020 1:27 PM MANAGER AMBULATORY per pt Height 160 cm (5' 3 ) 11/25/2020 1:27 PM MANAGER AMBULATORY Body Mass Index 42.87 11/25/2020 1:27 PM MANAGER AMBULATORY documented in this encounter Progress Notes * Tram Pemberton APRN-CNP - 11/25/2020 1:35 PM CST Images from the original note were not included. [facility] at [address] [address] . . Date of encounter: 11/25/2020 Provider: SANGEETHA Rai Patient: Maria Del Carmen Ray CSN: [id number] Specialty: Bariatric Surgery Date of : 1975 Today's visit was conducted virtually due to COVID-19 countermeasures. The patient has given verbalconsent to have today's visit conducted by this same means with treatment provided remotely. The patient verbally consents to the billing and collection practices of [facility]. Visit type: Bariatrics Virtual Pre-operative follow up Maria Del Carmen Ray 45 year old female was referred by SANGEETHA Kumar for Bariatrics pre-opfollow up via telemedicine encounter regarding: . Bariatric Preop HPI her last encounter with a provider with this clinic was on 11/05/2020 The procedure requested is Laparoscopic Sleeve Gastrectomy. Patient is attending support group meeting. The patient has been participating in an online supportgroup. No of support group meeting attended 2/3 Patient is taking 30-60 grams of proteins supplements daily. Patient is taking 100 oz of fluid per day. Doing 40 minutes of exercise daily. Weight change as [...] Total Wt Loss in lb: 13.6 lb Obesity History Years at current weight? [...] you have an unusual work schedule? no Newman Sleepiness Scale total points: 1 No past [...] since quittin.4 ??? Smokeless tobacco: Never Used Substance and Sexual Activity ??? Alcohol use: Yes Comment: OCC. ??? Drug use: Never ??? Sexual activity: Not on file Lifestyle ??? Physical activity Days per week: Not on file Minutes per session: Not on file ??? Stress: Not on file Relationships ??? Social connections Talks on phone: Not on file Gets together: Not on file Attends confucianist service: Not on file Active member of [...] Outpatient Medications Marked as Taking for the 11/25/20 encounter (Video Visit) with Tram Pemberton APRN-CNP Medication Sig ??? omeprazole (PRILOSEC) 20 MG capsule Take 1 capsule by mouth once daily (Not in a hospital admission) Allergies Allergen Reactions ??? Amoxicillin Rash and Unknown Objective: Vital Signs: Ht 5' 3 (1.6 m) Wt 242 lb (109.8 kg) BMI 42.87 kg/m2 Weight: 242 lb (109.8 kg)(per pt) Height: 5' 3 (160 cm) Body mass index is 42.87 kg/m??. Constitutional: Alert, awake and oriented without any apparent discomfort. Eyes: Anicteric. Psychiatric: The patient's mood and affect appeared to be appropriate Labs Some lab results will be in paper format so may be scanned in the EMR. Imaging studies EKG:??2020 Normal sinus rhythm Inferior t wave abnormality When compared with ECG of 05-OCT-2014 16:14, Nonspecific T wave abnormality is now seen in lead aVF ?? CHEST XRAY:??2020 ?? CARDIAC EVALUATION: Dr Chavarria 11/24/2020 Assessment and Plan Assessment: (E66.01) Morbid obesity (primary encounter diagnosis) (Z68.41) Body mass index (BMI) of 40.0-44.9 in adult (K21.9) Gastroesophageal reflux disease, unspecified whether esophagitis present (F41.9) Anxiety (M25.50) Arthralgia, unspecified joint (Z87.891) History of smoking (E55.9) Vitamin D deficiency (R94.31) Nonspecific abnormal electrocardiogram (ECG) (EKG) Morbid Obesity Weight change as in weight history. Patient has lost 3 pounds since their last visit. Total Weight lost since start of the program: 13.6 lbs. Patient continues to follow up with the dietitian and is continuing to make healthy lifestyle changes. Discussed the importance of exercise and increasing their daily activities to further their weight loss journey and for overall health. Continue on liquidprotein diet replacement therapy. Patient has a??6??months primary care physician supervised diet requirement. Has completed 4 / 6??months. Will plan for Laparoscopic Sleeve Gastrectomy provided all the tests are done satisfactorily, once the insurance is approved and all the follow-up clearances are done. BMI of 42.87 GERD Complains of reflux symptoms occasionally. We'll plan for an EGD to rule out H. pylori and any anatomic abnormality.??Will proceed with EGD. The procedure was described in detail to the patient. Risks discussed including bleeding, infection, perforation, need for subsequent procedure. Written handout of preparation for procedure provided to patient today. Patient verbalizes understanding and denies any further questions She has history of Colonoscopy on 08/09/2019 _ do not have theses results for review [...] pain medication PRN. ? History of??Smoking addiction?? She??states that??she??stopped smoking ??in June 2020.?Recommend her not to restart smoking. ??Explained to her the risk of development of complications with smoking after bariatric surgery.?She will need 2 negative nicotine screens prior to bariatric surgery. ? Vitamin D Deficiency She is tolerating repletion per protocol ?? Abnormal Finding of EKG Preoperative EKG performed on 2020 revealed finding of Normal sinus rhythm Inferior t wave abnormality When compared with ECG of 05-OCT-2014 16:14, Nonspecific T wave abnormality is now seen in lead aVF - Cardiac clearance obtained 11/24/2020 by Duyen ?? Consults and Test ordered:?? Dietitian consult for diet counseling and clearance Psychology/psychiatry consult for pre-operative clearance. EGD. Nicotine Screen x 2 Ferritin ?? 2 /??6??month physician supervised diet. Follow up: Will see me in 1 month. Patient location: Home This encounter was performed using: audio and video Time spent with patient/proxy: 11 minutes (between 10-20) The plan was reviewed with the patient and the patient confirmed understanding of the plan and all follow-up steps. Patient is agreeable with this plan after shared decision making with patient. All aspects of patient's medical history were reviewed and updated as documented in Epic SANGEETHA Rai CC: SANGEETHA Kumar GER AMBULATORY documented in this encounter Plan of Treatment Upcoming Encounters Date Type Department Care Team (Late st Contact Info) Description 03/15/2025 10:00 AM CDT Office Visit [facility] [address] [place] [phone] Vianey Llanes, BURT-ALGEBRA TEACHER [address] [place], [place] [phone] 03/15/2025 10:30 AM CDT Clinical Support [facility] [address] [place] [address] documented as of this encounter Visit Diagnoses [...]
--- OUTSIDE RECORDS SUMMARY | 2024-11-04 23:00 | XMS_ITS | Encounter Summary ---
Author Organization [facility] Health Address [address] [place] [address] Care Team Providers Care Manager Ccu Name Role Phone Unavailable Primary Care Provider Unavailabl e Reason for Visit * Reason Onset Date Comments Order 01/02/2021 Encounter Details Date Type Department Care Team (Late st Contact Info) Description 01/02/2021 Telephone [facility] [address] [place] [phone] Rehan Mendoza MD [address] [place] [phone] Order Social History Tobacco Use Types Packs/Day Years Used Date Smoking Tobacco: Former Cigarettes Q uit: 06/2020 Smokeless Tobacco: Never Alcohol Use Standard Drinks/Week Comments Yes 0 (1 standard drink = 0.6 oz pur e alcohol) OCC. Sex and Gender Information Value Date Recorded Sex Assigned at Female 11/25/2020 1:10 PM HAUL CANE BRAKEMAN Gender Identity Female 11/25/2020 1:10 PM HAUL CANE BRAKEMAN Sexual Orientation Straight 02/02/2021 4: 18 PM CDT documented as of this encounter Miscellaneous Notes * Telephone Encounter - Lesley Harkins LPN - 01/02/2021 2:10 PM HAUL CANE BRAKEMAN Pre op COVID test ordered. CANE BRAKEMAN * Telephone Encounter - Naila You - 01/02/2021 1:37 PM CST EGD scheduled 02/02/21 Please enter COVID order Instructions sent through [employer] CANE BRAKEMAN documented in this encounter Plan of Treatment Upcoming Encounters Date Type Department Care Team (Late st Contact Info) Description 03/15/2025 10:00 AM CDT Office Visit [facility] [address] [place] [phone] Vianey Llanes, TIMING ADJUSTER-TRUCK TECHNICIAN [address] [employer], [place] [phone] 03/15/2025 10:30 AM CDT Clinical Support [facility] [address] [place] [phone] documented as of this encounter Visit Diagnoses Diagnosis Pre-op exam- Primary Preoperative examination, unspecified documented in this encounter
--- OUTSIDE RECORDS SUMMARY | 2024-11-04 23:00 | XMS_ITS | Encounter Summary ---
Author Organization [facility] Health Address [address] [facility] [place] [address] Care Team Providers Care Battery Assembler Plastic Name Role Phone Unavailable Primary Care Provider Unavailabl e Reason for Visit * Reason Onset Date Comments Appointment 12/24/2020 Encounter Details Date Type Department Care Team (Late st Contact Info) Description 12/24/2020 Telephone [facility] [address] [place] [phone] Tram Pemberton, PROPERTY [facility] [address] [address] Appointment Social History Tobacco Use Types Packs/Day Years Used Date Smoking Tobacco: Former Cigarettes Q uit: 06/2020 Smokeless Tobacco: Never Alcohol Use Standard Drinks/Week Comments Yes 0 (1 standard drink = 0.6 oz pur e alcohol) OCC. Sex and Gender Information Value Date Recorded Sex Assigned at Female 11/25/2020 1:10 PM CERTIFIED PROFESSIONAL CONTROLLER Gender Identity Female 11/25/2020 1:10 PM CERTIFIED PROFESSIONAL CONTROLLER Sexual Orientation Straight 02/02/2021 4: 18 PM CDT documented as of this encounter Miscellaneous Notes * Telephone Encounter - Chantelle Patricia CNA - 12/24/2020 11:30 AM CERTIFIED PROFESSIONAL CONTROLLER Patient left message to rescheduled appointments on 12/23/20. Attempted to contact her no answer left message for her to return call to clinic. IFIED PROFESSIONAL CONTROLLER documented in this encounter Plan of Treatment Upcoming Encounters Date Type Department Care Team (Late st Contact Info) Description 03/15/2025 10:00 AM CDT Office Visit [facility] [address] [place] [phone] Vianey Llanes, PROPERTY APPRAISER-DERMATOLOGY PROCEDURAL PHYSICIAN [address] [place], [place] [phone] 03/15/2025 10:30 AM CDT Clinical Support [facility] [address] [place] [phone] documented as of this encounter Visit Diagnoses Not on filedocumented in this encounter
--- OUTSIDE RECORDS SUMMARY | 2024-11-04 23:00 | XMS_ITS | Encounter Summary ---
Author Organization [facility] Address [address] [place] [address] Care Team Providers Care Bulk Plant Manager Name Role Phone Unavailable Primary Care Provider Unavailabl e Encounter Details Date Type Department Care Team (Late st Contact Info) Description 02/20/2021 6:45 AM CDT - 02/20/2021 11:59 PM CDT Hospital Encounter [facility] [address] [place] [address] Rehan Mendoza MD [address] [place] [phone] Discharge Disposition: Home or Self Care Social History Tobacco Use Types Packs/Day Years Used Date Smoking Tobacco: Former Cigarettes Q uit: 06/2020 Smokeless Tobacco: Never Alcohol Use Standard Drinks/Week Comments Yes 14 (1 standard drink = 0.6 oz pu re alcohol) Sex and Gender Information Value Date Recorded Sex Assigned at Female 11/25/2020 1:10 PM METAL CASTING TRADES WORKER Gender Identity Female 11/25/2020 1:10 PM METAL CASTING TRADES WORKER Sexual Orientation Straight 02/02/2021 4: 18 [...] Date omeprazole (PRILOSEC) 20 MG capsule Take 2 (two) capsules by mouth once daily 60 capsule 02/02/2021 03/04/2021 omeprazole (PRILOSEC) 20 MG capsule Take 1 capsule by mouth once daily 02/23/2021 sucralfate (CARAFATE) 1 GM tablet Take 1 g by mouth 4 times daily - before meals & nightly 02/23/2021 vitamin D, ergocalciferol, (DRISDOL) 1.25 MG (90689 UT) capsuleIndications:Vi tamin D Deficiency Take 1 capsule by mouth every 7 days Reasons: Vitamin D Deficiency 4 capsule 3 09/17/2020 03/10/2021 documented as of this encounter Plan of Treatment Upcoming Encounters Date Type Department Care Team (Late st Contact Info) Description 03/15/2025 10:00 AM CDT Office Visit [facility] Services [address] [place] [phone] Vianey Llanes, STORM WINDOW INSTALLER-DELI SLICER [address] [place] [address] 03/15/2025 10:30 AM CDT Clinical Support [facility] Services [address] [place] [phone] documented as of this encounter Procedures Procedure Name Priority Date/Time Associated Diagnosis Comments SARS-COV-2 (COVID-19) PANEL (SOIL) Routine 02/20/2021 6:47 AM CDT Pre-operative laboratory examination SARS-COV-2 (COVID-19) IN HOUSE Routine 02/20/2021 6:47 AM CDT Pre-operative laboratory examination documented in this encounter Results * SARS-COV-2 (COVID-19) IN HOUSE (02/20/2021 6:47 AM CDT) COVID-19 PCR Not detected Not detected 02/21/2021 10:47 AM CDT [facility] Microbiology SPECIMEN FROM NASOPHARYNGEAL STRUCTURE / Unknown Collection / Unknown 02/20/2021 6:47 AM CDT 02/20/2021 8:22 AM CDT Narrative [facility] - 02/21/2021 10:47 AM CDT This Real Time RT-PCR assay was developed and its performance characteristics determined by [facility]. This test has been authorized by the Food and Drug administration (FDA)under an Emergency Use Authorization (EUA). This test has been validated [...] EUA assay are available upon request. Rehan Mendzoa MD LAB - MICROBIOLOGY O RDERABLES [facility] [address] [place] [address], [facility] [phone] documented in this encounter Visit Diagnoses Diagnosis Pre-operative laboratory examination Pre-procedural laboratory examination documented in this encounter Additional Health Concerns Infection Onset Date Last Indicated Resolved Time COVID-19 Under Investigation 02/20/2021 02/20/202102/21/2021 10:47 AM CDT documented as of this encounter
--- OUTSIDE RECORDS SUMMARY | 2024-11-04 23:00 | XMS_ITS | Encounter Summary ---
Author Organization [facility] Address [address] [facility] [place] [address] Care Team Providers Care Nutrition Aide Name Role Phone Unavailable Primary Care Provider Unavailabl e Encounter Details Date Type Department Care Team (Latest Contact Info) Description 02/18/2021 Travel Social History Tobacco Use Types Packs/Day Years Used Date Smoking Tobacco: Former Cigarettes Q uit: 06/2020 Smokeless Tobacco: Never Alcohol Use Standard Drinks/Week Comments Yes 14 (1 standard drink = 0.6 oz pu re alcohol) Sex and Gender Information Value Date Recorded Sex Assigned at Female 11/25/2020 1:10 PM NET MAKING SUPERVISOR Gender Identity Female 11/25/2020 1:10 PM NET MAKING SUPERVISOR Sexual Orientation Straight 02/02/2021 4: 18 PM CDT COVID-19 Exposure Response Date Recorded In the last month, have you been in contact with someone who was confirmed or suspected to have Coronavirus / COVID-19? Unable to assess 02/18/2021 10:20 AM CDT documented as of this encounter [...] 03/15/2025 10:00 AM CDT Office Visit [facility] Services [address] [place] [phone] Vianey Llanes, CRYSTALLIZER OPERATOR-DIETITIAN [address] [place], [place] [phone] 03/15/2025 10:30 AM CDT Clinical Support [facility] [address] [place] [address] documented as of this encounter Visit Diagnoses Not on filedocumented in this encounter
--- OUTSIDE RECORDS SUMMARY | 2024-11-04 23:00 | XMS_ITS | Encounter Summary ---
Author Organization [facility] Health Address [address] [place] [address] Care Team Providers Care Centura Technical Lead Senior Developer Name Role Phone Unavailable Primary Care Provider Unavailabl e Reason for Visit * Reason Comments Obesity Follow Up Encounter Details Date Type Department Care Team (Late st Contact Info) Description 01/13/2021 10:15 AM AUTOMATION MACHINE BUILDER Office Visit [facility] [address] [place] [phone] [place]han [place] [id number] [place] [phone] Tram Pemberton, EQUIPMENT COORDINATOR-COOKER PIE FILLING [address] [address] Morbid obesity (HCC) (Primary Dx); Body mass index (BMI) of 40.0-44.9 in [...] Sex Assigned at Female 11/25/2020 1:10 PM AUTOMATION MACHINE BUILDER Gender Identity Female 11/25/2020 1:10 PM AUTOMATION MACHINE BUILDER Sexual Orientation Straight 02/02/2021 4: 18 PM CDT documented as of this encounter Last Filed Vital Signs Vital Sign Reading Time Taken Comments Blood Pressure 130/94 01/13/2021 8:55 AM AUTOMATION MACHINE BUILDER Pulse 54 01/13/2021 8:55 AM AUTOMATION MACHINE BUILDER Temperature 35.9 ??C (96.6 ??F) 01/13/2021 8:55 AM CS T Respiratory Rate 14 01/13/2021 8:55 AM AUTOMATION MACHINE BUILDER Oxygen Saturation 98% 01/13/2021 8: 55 AM AUTOMATION MACHINE BUILDER Inhaled Oxygen Concentration - - Weight 108.1 kg (238 lb 4.8 oz) 01/13/2021 8:55 AM AUTOMATION MACHINE BUILDER Height 160 cm (5' 3 ) 01/13/2021 8:55 AM AUTOMATION MACHINE BUILDER Body Mass Index 42.21 01/13/2021 8:55 AM AUTOMATION MACHINE BUILDER documented in this encounter Progress Notes * Tram Pemberton APRN-CNP - 01/13/2021 7:51 AM CST [facility] [place] [address] . . Date of encounter: 01/13/2021 Provider: SANGEETHA Rai Patient: Maria Del Carmen Ray CSN: [id number] Specialty: Bariatric Surgery Date of : 1975 [...] file Gets together: Not on file Attends restorationist service: Not on file Active member of [...] for the 01/13/21 encounter (Office Visit) with Geovannyparesh, Tram Durbin, EQUIPMENT COORDINATOR-COOKER PIE FILLING Medication Sig ??? vitamin D, ergocalciferol, (DRISDOL) 1.25 MG (42318 UT) capsule Take 1 capsule by mouth [...] lead aVF ?? CHEST XRAY:??2020 ?? CARDIAC??EVALUATION: ??Dr??Aura 11/24/2020? Assessment and Plan Assessment: (E66.01) Morbid [...] I will submit her information to our business insurance agent for review. She verbalized understanding and is agreeable to this plan after shared decision making with patient. SANGEETHA Rai CC: SANGEETHA Kumar MATION MACHINE BUILDER documented in this encounter Plan of Treatment Upcoming Encounters Date Type Department Care Team (Late st Contact Info) Description 03/15/2025 10:00 AM CDT Office Visit [facility] [address] [place] [phone] Vianey Llanes APRN-CNP [address] [place] [address] 03/15/2025 10:30 AM CDT Clinical Support [facility] [address] [place] [phone] documented as of this encounter Visit Diagnoses [...]
--- OUTSIDE RECORDS SUMMARY | 2024-11-04 23:00 | XMS_ITS | Encounter Summary ---
Author Organization [facility] Address [address] [facility] [place] [address] Care Team Providers Care Valve Repairer Name Role Phone Unavailable Primary Care Provider Unavailabl e Reason for Visit * Auth/Cert Specialty Diagnoses / Procedures Referred By Veronica bonner Referred To Contact Diagnoses Gastroesophageal reflux disease, unspecified whether esophagitis present Gastroesophageal reflux disease, unspecified whether esophagitis present [K21.9] Procedures ESOPHAGOGASTRODUODENOSCOPY (EGD) BIOPSY Referral ID Status Reason Start Date Expiration Date Visits Re quested Visits Authorized [id number] 1 1 Encounter Details Date Type Department Care Team (Latest Contact Info) Description 02/23/2021 1:52 PM CDT - 02/23/2021 2:10 PM CDT Surgery [facility] [address] [place] [address] [place] [address] [facility] [address] [place] [phone] ESOPHAGOGASTRODUODENOSCOPY WITH BIOPSY Surgery Details Date/Time Status Location OR Service Patient Class Case Class Case Type Trauma Case? 02/23/2021 1:52 PM Posted [facility] MA[facility] OR OR 2 Gastroenterology Surgery Day Care Elective > 5 days Panel 1 Procedure LRB Anes Op Region Wound Class Comments ESOPHAGOGASTRODUODENOSCOPY WITH BIOPSY DONALD YUSUF Surgeon Surgeon Role Service Panel Rehan Mendoza MD Primary Gastroenterology 1 Special Needs ARRIVAL TIME:1230 documented in this encounter Social History Tobacco Use Types Packs/Day Years Used Date Smoking Tobacco: Former Cigarettes Q uit: 06/2020 Smokeless Tobacco: Never Alcohol Use Standard Drinks/Week Comments Yes 14 (1 standard drink = 0.6 oz pu re alcohol) Sex and Gender Information Value Date Recorded Sex Assigned at Female 11/25/2020 1:10 PM SUPERVISOR CABINETMAKER Gender Identity Female 11/25/2020 1:10 PM SUPERVISOR CABINETMAKER Sexual Orientation Straight 02/02/2021 4: 18 PM CDT COVID-19 Exposure Response Date Recorded In the last month, have you been in contact with someone who was confirmed or suspected to have Coronavirus / COVID-19? No / Unsure 02/20/2021 6:40 AM CDT documented as of this encounter Last Filed Vital Signs Vital Sign Reading Time Taken Comments Blood Pressure 149/87 02/23/2021 12:23 PM CDT Pulse 66 02/23/2021 12:23 PM CDT Temperature 35.8 ??C (96.4 ??F) 02/23/2021 1 2:23 PM CDT Respiratory Rate 20 02/23/2021 12:2 3 PM CDT Oxygen Saturation 100% 02/23/2021 12: 23 PM CDT Inhaled Oxygen Concentration - - Weight 114.3 kg (251 lb 15.8 oz) 2020 12:23 PM CDT Height 160 cm (5' 3 ) 02/20/2021 1:59 PM CDT Body Mass Index 44.64 02/20/2021 1:59 PM CDT documented in this encounter Functional [...] mouth once daily 60 capsule 02/02/2021 03/04/2021 vitamin D, ergocalciferol, (DRISDOL) 1.25 MG (08819 UT) capsuleIndications:Vi tamin D Deficiency Take 1 capsule by mouth every 7 days Reasons: Vitamin D Deficiency 4 capsule 3 09/17/2020 03/10/2021 documented as of this encounter H&P Notes * Rehan Mendoza MD - 02/23/2021 1:40 PM CDT [facility] [place] [address] . . Date of encounter: 02/05/2021 Provider: Rehan Mendoza MD Patient: Maria Del Carmen Ray CSN: [id number] Specialty: Bariatric Surgery Date of : 1975 Visit type: Bariatrics Pre-operative follow up Maria Del Carmen Ray 45 year old female was referred by SANGEETHA Kumar for Bariatrics pre-op follow up. Bariatric Preop HPI she was seen in clinic last on 03/09/2021 The procedure requested is Laparoscopic Sleeve Gastrectomy. Patient is attending support group meeting. The patient has not been participating in an online support group. No of support group meeting attended 01/07 Patient is taking 60 grams of proteins supplements daily. Patient is taking 64 oz of fluid per day. Doing 10 minutes of exercise daily. The patient has [...] you have an unusual work schedule? no [place] Sleepiness Scale total points: 1 Past Medical History: Diagnosis Date ??? GERD (gastroesophageal reflux disease) ??? HTN (hypertension) Past Surgical History: Procedure Laterality Date ??? Appendectomy 03/1999 ??? ENDOSCOPY, UPPER ??? ENDOSCOPY, UPPER N/A 02/02/2021 N/A; ESOPHAGOGASTRODUODENOSCOPY WITH BIOPSY ??? Hysterectomy 12/2018 partial Social History Socioeconomic [...] Gatherings with Friends and Family: ??? Attends [employer] Services: ??? Active Member of Clubs or Organizations: ??? Attends Club or Organization Meetings: ??? Marital Status: Intimate Partner Violence: ??? Fear of Current or Ex-Partner: ??? Emotionally Abused: ??? Physically Abused: ??? Sexually Abused: Family History Problem Relation Name Age of Onset ??? Hypertension Mother ??? Hypertension Father ??? CVA Father Outpatient Medications Marked as Taking for the 02/23/21 encounter (Hospital Encounter) Medication Sig ??? omeprazole (PRILOSEC) 20 MG capsule Take 2 (two) capsules by mouth once daily ??? vitamin D, ergocalciferol, (DRISDOL) 1.25 MG (47937 UT) capsule Take 1 capsule by mouth every 7days Reasons: Vitamin D Deficiency Medications Prior to Admission Medication Sig Dispense Refill ??? omeprazole (PRILOSEC) 20 MG capsule Take 2 (two) capsules by mouth once daily 60 capsule 0 ??? omeprazole (PRILOSEC) 20 MG capsule Take 1 capsule by mouth once daily ? ? sucralfate (CARAFATE) 1 GM tablet Take 1 g by mouth 4 times daily - before meals & nightly ??? vitamin D, ergocalciferol, (DRISDOL) 1.25 MG (18613 UT) capsule Take 1 capsule by mouth every 7days Reasons: Vitamin D Deficiency 4 capsule 3 Allergies Allergen Reactions ??? Amoxicillin Rash and Unknown Objective: Vital Signs: BP 149/87 Pulse 66 Temp 96.4 ??F (35.8 ??C) (Temporal) Resp 20 Ht 5' 3 Wt 251 lb 15.8 oz SpO2 100%BMI 44.64 kg/m2 Weight: 251 lb 15.8 oz Height: 5' 3 Body mass index is 44.64 kg/m??. Constitutional: Alert, awake and oriented without any apparent discomfort. Eyes: Anicteric. No subconjunctival hemorrhage. Neck Exam: Supple. Trachea midline. No thyromegaly. No cervical or supraclavicular lymphadenopathy. Respiratory: Lungs were clear to auscultation bilaterally. No rales, rhonchi Cardiovascular: Regular rate and rhythm. No rub, murmur or gallop Abdomen: Abdomen was obese, soft, non tender, non distended. No palpable visceromegaly. No palpableventral hernias. Skin: [place] and moist. No ulcers, rashes, or lesions. Extremities: Well perfused. No gross joint deformity noted Neurological: Cranial nerves 2-12 were grossly intact. Psychiatric: The patient's mood and affect appeared to be appropriate Labs No results for input(s): WBC, RBC, HGB, HCT, PLTCOUNT in the last 71808 hours. No results for input(s): SODIUM, POTASSIUM, CO2, BUN, CREATININE in the last 32527 hours. Invalid input(s): CLORIDE No results for input(s): GLUCOSE in the last 62414 hours. No results for input(s): AST, ALT in the last 01106 hours. No results for input(s): LDL, HDL, TRIG, TSH in the last 55223 hours. No results for input(s): HGBA1C in the last 10712 hours. No results for input(s): PT, PTT, INR, TSH in the last 65255 hours. No results for input(s): TSH in the last 72601 hours. No results for input(s): IRON in the last 94654 hours. No results for input(s): [id number] in the last 74412 hours. No results for input(s): VITAMINA in the last 09565 hours. No results for input(s): IRON in the last 90460 hours. No results for input(s): VITK1 in the last 05802 hours. No results for input(s): [id number] in the last 34073 hours. No results for input(s): ALPHATOCOPH in the last 93074 hours. No results for input(s): GAMMATOCOPH in the last 99007 hours. No results for input(s): MAGMGDL in the last 43282 hours. No results for input(s): PHOS in the last 10573 hours. Some lab results will be in paper format so may be scanned in the EMR. Imaging studies No results found. Some Imaging studies results will be in paper format so may be scanned in the EMR. Assessment and Plan Assessment: Morbid Obesity Weight change as in weight history. Total Weight lost since start of the program: 17.3 lbs. she hadvisited with the Dietitian since the last visit and she is adjusting the diet. she started on an exercise program is helping her weight loss plan. Continue on liquid protein diet replacement therapy. Patient has a 6 months primary care physician supervised diet requirement. Has completed 6/6 months. BMI of 42.21 GERD Complains of reflux symptoms occasionally. EGD done on 02/02/21 showed a small superficial pyloric ulcer. Treated with PPI. To do a repeat EGD on 02/23/21 to evelaute the healing. She has history of Colonoscopy on 08/09/2019, patinet reports normal. ?? Anxiety Patient anxious about [...] byDr Chavarria ?? Consults and Test ordered:?? None Follow up: Will see me for Pre OP. She verbalized understanding and is agreeable to this plan after shared decision making with patient. Rehan Mendoza MD CC: SANGEETHA Kumar documented in this encounter OR Notes * Operative - Rehan Mendoza MD - 02/23/2021 1:52 PM CDT EGD OPERATIVE REPORT Pt Name: Maria Del Carmen Ray Date of Service: 02/23/2021 4:10 PM Patient Name: Maria Del Carmen Ray Referring Physician: SANGEETHA Kumar SURGEON: Surgeon(s) and Role: * Rehan Mendoza MD - Primary DOUGH MOLDER: Blade Aligner: Arlette Menendez, RN Scrub Person: Catherine Gabriel RN Pre Procedure Diagnosis: Gastroesophageal reflux disease, unspecified whether esophagitis present [K21.9] Post Procedure Diagnosis: Saline Informed Consent: Informed consent was obtained for the procedure, including sedation. Risks of perforation, hemorrhage, adverse drug reaction and aspiration were discussed. Based on the pre-procedure assessment, including review of the patient's medical history, medications, allergies and review of systems, she hadbeen deemed to be an appropriate candidate for MAC sedation. Procedure: Procedure(s): ESOPHAGOGASTRODUODENOSCOPY WITH BIOPSY Details of the Procedure: she was sedated with the medications listed below. She was monitored continuously with EKG tracing,pulse oximetry, blood pressure monitoring, and direct observation. The gastroscope was inserted into the mouth and advanced under direct vision to second portion of the duodenum. A careful inspection was made as the gastroscope was withdrawn, including a retroflexedview of the proximal stomach; findings and interventions are described below. Biopsies from pylorusto r/o H.Pylori was done. Appropriate photodocumentation was obtained. The patient tolerated the procedure well, and there were no complications. She was taken to the recovery area in stable condition. Sedation: Propofol Post Procedure Status: stable Specimen: ID Type Source Tests Collected by Time Destination A : pylorus biopsy to r/o hpylori Pathology/Cytology Pylorus GROSS + MICRO EXAM (ILL) Rehan Mendoza MD 02/23/2021 1601 Yes Estimated Blood Loss:* No blood loss amount entered * Minimal Findings and Interventions: GEjn at 40 cm from incisors, intact Pyloric ulcer healed. No gastritis. no hiatal hernia Impression: Normal EGD Rehan Mendoza M.D., F.A.C.S. documented in this encounter Plan of Treatment Upcoming Encounters Date Type Department Care Team (Late st Contact Info) Description 03/15/2025 10:00 AM CDT Office Visit [facility] [address] [place] [phone] Vianey Llanes, GREEN END DEPARTMENT SUPERVISOR-TECHNICAL SALES REPRESENTATIVE [address] [place], [place] [phone] 03/15/2025 10:30 AM CDT Clinical Support [facility] [address] [place] [phone] Scheduled Orders Name Type Priority Associated Diagnoses Orde r Schedule EGD GI Routine ONCE for 1 Occ urrences starting 02/23/2021 until 02/23/2021 documented as of this encounter Procedures Procedure Name Priority Date/Time Associated Diagnosis Comments GROSS + MICRO EXAM (ILL) Routine 02/23/2021 4:01 PM CDT Gastroesophageal reflux disease, unspecified whether esophagitis present MO EGD FLEX TRANSORAL W BX SNGL OR MULT 02/23/2021 3:47 PM CDT Gastroesophageal reflux disease, unspecified whether esophagitis present Special Needs ARRIVAL TIME:1230 documented in this encounter Results * GROSS + MICRO EXAM (ILL) (02/23/2021 4:01 PM CDT) Case Report Surgical Pathology Report ? Case: [id number] ? Authorizing Provider: ??Rehan Mendoza MD ?Collected: ? 02/23/2021 04:01 PM ? Ordering Location: ? [facility] ?Received: ?02/24/2021 09:34 AM ? Pathologist: ? Chuckie Lujan MD ? Specimen: ?Pylorus, pylorus biopsy to r/o hpylori ? 02/25/2021 9:22 AM CDT [facility] Final Diagnosis Stomach, pyloric, biopsy: - ANTRAL MUCOSA WITH NON-DIAGNOSTIC ABNORMALITY. - NO HELICOBACTER PYLORI ORGANISMS IDENTIFIED (H&E EXAM). 02/25/2021 9:22 AM [facility] Microscopic Description and Comment Lamina propria smooth muscle proliferation and sparse eosinophils and mononuclear chronic cells are seen. No active gastritis. Microscopic examination is performed and substantiates the above diagnosis. 02/25/2021 9:22 AM [facility] Clinical History Gastroesophageal reflux disease, unspecified whether esophagitis present. Per EMR, pyloric ulcer healed, no gastritis, normal EGD 02/25/2021 9:22 AM [facility] Gross Description Received in formalin labeled Maria Del Carmen Ray and pylorus biopsy are three pink-crow, soft irregular tissue fragments with an aggregate measurement of 0.6 x 0.3 x 0.25 cm, each measuring 0.3 cm in greatest dimension. Submitted in toto in A1. LS/lk 02/25/2021 9:22 AM [facility] Disclaimer The performance characteristics of all immunohistochemical and indirect immunofluorescence stains (if any) cited in this report were determined by the Histopathology Laboratory of [facility]. Some of these tests were developed by [...] H&E slides and special stains prepared at [facility], [place]. [address] (CLIA# [id number]) unless otherwise specified. This case was interpreted by the [facility] of Pathology. When applicable, select reference laboratory testing is performed at the [facility], [address] [place] [address]. 02/25/2021 9:22 AM [facility] Embedded Images 02/25/2021 9:22 AM [facility] Pathology/Cytology ENTIRE PYLORUS / Unknown 02/23/2021 4:01 PM CDT 02/24/2021 9:34 AM CDT Comment:Pre-op diagnosis: Gastroesophageal reflux disease, unspecified whether esophagitis present [K21.9] Rehan Mendoza MD LAB - PATHOLOGY/CYTO LOGY ORDERABLES [facility] [address] documented in this encounter Visit Diagnoses Diagnosis Gastroesophageal reflux disease, unspecified whether esophagitis present Pre-op exam Preoperative examination, unspecified Gastroesophageal reflux disease, unspecified whether esophagitis present documented in this encounter Administered Medications Inactive Administered Medications - up to 3 most recent administrations Medication Order MAR Action Action Date Dose Rate Site 0.9% NaCl injection 3 mL 3 mL, Intracatheter, PRE-PROCEDURE MULTIPLE, Starting on Tue02/23/21 at 1206, Until Tue02/23/21 at 1826, For Saline Lock flushes if one is inserted for Bronchoscopy/Endoscopy procedure., Pre-procedure (GI) famotidine (Pepcid) injection 20 mg 20 mg, Intravenous, PRE-OP ONCE, 1 dose, On Tue02/23/21 at 1215, Dilute 2 mL of injection with 0.9% NaCl or D5W solution to a volume of 5 to 10 ml. Push over a period of at least 2 minutes. Dilute with 0.9% NaCl or D5W solution to a volume of 5 to 10 ml and administer over at least 2 minutes., Pre-op $ Given 02/23/2021 12:36 PM CDT 20 mg lactated ringers infusion at 75 mL/hr, Intravenous, PRE-OP CONTINUOUS, Starting on Tue02/23/21 at 1215, Until Tue02/23/21 at 1826, Pre-op Rate Change 02/23/2021 4:04 PM CDT 800 mL/hr $ New Bag/Syringe 02/23/2021 12:35 PM CDT 75 mL /hr naloxone (Narcan) injection 0.04 mg 0.04 mg, Intravenous, POST-OP MULTIPLE, Starting on Tue02/23/21 at 1624, Until Tue02/23/21 at 1826, Notify physician immediately, and mix 0.4 mg Naloxone in 9 mL Normal Saline for slow IV push. Administer dilute Naloxone solution IV very slowly (1 mL over 30 seconds) while observing the patient response and titrating to effect. If no response, call Rapid Response, continue IV Naloxone at the same rate up to a total of 0.8 mg of diluted Naloxone., PACU ondansetron (Zofran) injection 4 mg 4 mg, Intravenous, ONCE PRN, Nausea/Vomiting, 1 dose, Starting on Tue02/23/21 at 1624, Until Tue02/23/21 at 1826, First choice, PACU documented in this encounter Active and Recently Administered Medications Times are shown in CDT. Scheduled Medication Order 02/21/2021 02/22/2021 02/23/2021 0.9% NaCl injection 3 mL 3 mL, Intracatheter, PRE-PROCEDURE MULTIPLE, Starting on Tue02/23/21 at 1206, Until Tue02/23/21 at 1826, For Saline Lock flushes if one is inserted for Bronchoscopy/Endoscopy procedure., Pre-procedure (GI) famotidine (Pepcid) injection 20 mg (COMPLETED) 20 mg, Intravenous, PRE-OP ONCE, 1 dose, On Tue02/23/21 at 1215, Dilute 2 mL of injection with 0.9% NaCl or D5W solution to a volume of 5 to 10 ml. Push over a period of at least 2 minutes. Dilute with 0.9% NaCl or D5W solution to a volume of 5 to 10 ml and administer over at least 2 minutes., Pre-op 1236 ($ Given - Prov ider: Rossy Cuevas RN) naloxone (Narcan) injection 0.04 mg 0.04 mg, Intravenous, POST-OP MULTIPLE, Starting on Tue02/23/21 at 1624, Until Tue02/23/21 at 1826, Notify physician immediately, and mix 0.4 mg [...] of diluted Naloxone., PACU Continuous Medication Order 02/21/2021 02/22/2021 02/23/2021 lactated ringers infusion at 75 mL/hr, Intravenous, PRE-OP CONTINUOUS, Starting on Tue02/23/21 at 1215, Until Tue02/23/21 at 1826, Pre-op 1235 ($ New Bag/Syri nge - Provider: Rossy Cuevas, RN)1604 (Rate Change - Provider: Dima Palacios APRN-BILL POSTER INSTALLER) PRN Medication Order 02/21/2021 02/22/2021 02/23/2021 ondansetron (Zofran) injection 4 mg 4 mg, Intravenous, ONCE PRN, Nausea/Vomiting, 1 dose, Starting on Tue02/23/21 at 1624, Until Tue02/23/21 at 1826, First choice, PACU documented in this encounter
--- OUTSIDE RECORDS SUMMARY | 2024-11-04 23:00 | XMS_ITS | Encounter Summary ---
Author Organization [facility] Address [address] [place] [place] [address] Care Team Providers Care Surveillance Inspector Name Role Phone Unavailable Primary Care Provider Unavailabl e Reason for Visit * Reason Onset Date Comments Pre Op Call 02/27/2021 Encounter Details Date Type Department Care Team (Late st Contact Info) Description 02/27/[address] [facility] [address] [place] [phone] Tram Pemberton, MACHINE QUILT STUFFER-[facility] [address] [place] [address] Pre Op Call Social History Tobacco Use Types Packs/Day Years Used Date Smoking Tobacco: Former Cigarettes Q uit: 06/2020 Smokeless Tobacco: Never Alcohol Use Standard Drinks/Week Comments Yes 14 (1 standard drink = 0.6 oz pu re alcohol) Sex and Gender Information Value Date Recorded Sex Assigned at Female 11/25/2020 1:10 PM ENVIRONMENTAL HEALTH INSPECTOR Gender Identity Female 11/25/2020 1:10 PM ENVIRONMENTAL HEALTH INSPECTOR Sexual Orientation Straight 02/02/2021 4: 18 PM [...] Telephone Encounter - Briana Virk RN - 02/27/2021 2:21 PM CDT Spoke with patient and reviewed current meds and allergies. Reviewed what meds to stop prior to bariatric surgery and when. Reviewed scripts for pre and post op that will be sent to pharm along with instructions for use. Explained that will email info to patient as well and asked that pt call back with any questions/concerns. Pt v/u. documented in this encounter Plan of Treatment Upcoming Encounters Date Type Department Care Team (Late st Contact Info) Description 03/15/2025 10:00 AM CDT Office Visit [facility] Weight Management Services [address] [place] [phone] Vianey Llanes, MACHINE QUILT STUFFER-BULL GANG WORKER [address] [place], [place] [address] 03/15/2025 10:30 AM CDT Clinical Support [facility] Weight Management Services [address] [place] [phone] documented as of this encounter Visit Diagnoses Diagnosis Bariatric surgery status- Primary documented in this encounter
--- OUTSIDE RECORDS SUMMARY | 2024-11-04 23:00 | XMS_ITS | Encounter Summary ---
Author Organization [facility] Address [address] [place] [address] Care Team Providers Care Bonding Equipment Operator Name Role Phone Unavailable Primary Care Provider Unavailabl e Reason for Visit * Reason Onset Date Comments General 01/26/2021 Encounter Details Date Type Department Care Team (Late st Contact Info) Description 01/26/2021 Telephone [facility] Services [address] [place] [phone] Rehan Mendoza MD [address] [place] [phone] General Social History Tobacco Use Types Packs/Day Years Used Date Smoking Tobacco: Former Cigarettes Q uit: 06/2020 Smokeless Tobacco: Never Alcohol Use Standard Drinks/Week Comments Yes 0 (1 standard drink = 0.6 oz pur e alcohol) OCC. Sex and Gender Information Value Date Recorded Sex Assigned at Female 11/25/2020 1:10 PM CLINICAL LAB CLERK Gender Identity Female 11/25/2020 1:10 PM CLINICAL LAB CLERK Sexual Orientation Straight 02/02/2021 4: 18 PM CDT documented as of this encounter Miscellaneous Notes * Telephone Encounter - Heather Lyle LPN - 01/26/2021 1:40 PM CDT Preop COVID test ordered. * Telephone Encounter - Annika Hurst - 01/26/2021 12:16 PM CDT Called PT to schedule surgery date and PREOP appts. Pt made aware of COVID test and liquid diet start date. All appt dates and times sent to PT in email. documented in this encounter Plan of Treatment Upcoming Encounters Date Type Department Care Team (Late st Contact Info) Description 03/15/2025 10:00 AM CDT Office Visit [facility] Services [address] [place] [phone] Vianey Llanes, PAYROLL TECHNICIAN-HARNESS INSPECTOR [address] [place], [place] [address] 03/15/2025 10:30 AM CDT Clinical Support [facility] [address] [place] [phone] documented as of this encounter Visit Diagnoses Diagnosis Preop examination- Primary Preoperative examination, unspecified documented in this encounter
--- OUTSIDE RECORDS SUMMARY | 2024-11-04 23:00 | XMS_ITS | Encounter Summary ---
Author Organization [facility] Health Address [address] [place] [address] Care Team Providers Care Logistics Service Representative Name Role Phone Unavailable Primary Care Provider Unavailabl e Reason for Visit * Reason Comments Bariatric Surgery Pre-op Instruction Encounter Details Date Type Department Care Team (Late st Contact Info) Description 03/04/2021 1:00 PM CDT Video Visit [facility] Weight Management Services [address] [place] [phone] [place] M[place] [id number] [place] [phone] Morbid obesity (HCC) Social History Tobacco Use Types Packs/Day Years Used Date Smoking Tobacco: Former Cigarettes Q uit: 06/2020 Smokeless Tobacco: Never Alcohol Use Standard Drinks/Week Comments Not Currently 14 (1 standard drink = 0.6 oz pu re alcohol) Sex and Gender Information Value Date Recorded Sex Assigned at Female 11/25/2020 1:10 PM TECHNICAL SUPPORT INTERNSHIP Gender Identity Female 11/25/2020 1:10 PM TECHNICAL SUPPORT INTERNSHIP Sexual Orientation Straight 02/02/2021 4: 18 PM [...] - Inhaled Oxygen Concentration - - Weight 107.5 kg (237 lb) 03/04/2021 12:00 PM CDT per pt Height 160 cm (5' 3 ) 03/04/2021 12:00 PM CDT Body Mass Index 41.98 03/04/2021 12:00 PM CDT documented in this encounter Functional [...] Progress Notes * Rehan Mendoza MD - 03/08/2021 6:12 AM CDT Images from the original note were not included. [facility] [place] [address] . . Date of encounter: 03/04/2021 Provider: Dr. Rehan Mendoza Patient: Maria Del Carmen Ray CSN: [id number] Specialty: Bariatric Surgery Date of : 1975 [...] group. No of support group meeting attended 3 Patient is taking 80 grams of proteins [...] you have an unusual work schedule? no [place] Sleepiness Scale total points: 1 Past Medical [...] Gatherings with Friends and Family: ??? Attends Baptism Services: ??? Active Member of Clubs or [...] Reasons: Gastroesophageal Reflux Disease ??? Probiotic Product ([employer]) capsule Take 1 (one) capsule by mouth [...] RBC, HGB, HCT, PLTCOUNT in the last 13062 hours. No results for input(s): SODIUM, POTASSIUM, CO2, BUN, CREATININE in the last 02567 hours. Invalid input(s): CLORIDE No results for input(s): GLUCOSE in the last 61440 hours. No results for input(s): AST, ALT in the last 54544 hours. No results for input(s): LDL, HDL, TRIG, TSH in the last 41940 hours. No results for input(s): HGBA1C in the last 96768 hours. No results for input(s): PT, PTT, INR, TSH in the last 87060 hours. No results for input(s): TSH in the last 84502 hours. No results for input(s): IRON in the last 55422 hours. No results for input(s): [id number] in the last 08557 hours. No results for input(s): VITAMINA in the last 32248 hours. No results for input(s): IRON in the last 37593 hours. No results for input(s): VITK1 in the last 49529 hours. No results for input(s): [id number] in the last 89477 hours. No results for input(s): ALPHATOCOPH in the last 83271 hours. No results for input(s): GAMMATOCOPH in the last 02689 hours. No results for input(s): MAGMGDL in the last 96029 hours. No results for input(s): PHOS in the last 57528 hours. Some lab results will be in [...] Laparoscopic Sleeve Gastrectomy Date: 03/09/2021 Place: At [facility]. Patient should qualify for staying more than 2 midnights in hospital. Patient education, risk explained and consent : she meets the criteria as set by the [employer] of Health that recommends bariatric surgeryon people [...] diet, andhaving very close follow-up with a insole rasper and me. In addition she must continue [...] this surgery may be performed as a s tand-alone procedure to achieve the desired outcome, or [...] has attended pre operative education class by manager programming and the dietitian, but she will have additional education provided by the manager programming and insole rasper at [facility]. Because of the significant changes in her eating habits she will have to see a insole rasper following surgery. I have informed her that the diet after surgery is a gradual progression from clear liquids to solid foods over a period of time. [...] to the billing and collection practices of [facility]. Patient location: Home This encounter was performed [...] in Epic. By assigning my name below, I, Declan Rapp, attest that this documentation has been prepared underthe direction of Dr. Rehan Mendoza.03/08/2021 Rehan Reed MD personally performed the services described in this documentation. All medical record entries made by the scribe were at my direction. I have reviewed the chart and agree thatthe record reflects my personal performance and is accurate and complete. CC: Rose Marie Norton APRN-DISTRIBUTION SYSTEM OPERATOR documented in this encounter Plan of Treatment Upcoming Encounters Date Type Department Care Team (Late st Contact Info) Description 03/15/2025 10:00 AM CDT Office Visit [facility] Health Weight Management Services [address] [place] [phone] Vianey Llanes, BURT-DISTRIBUTION SYSTEM OPERATOR [address] [place] [address] 03/15/2025 10:30 AM CDT Clinical Support [facility] Health Weight Management Services [address] [place] [phone] documented as of this encounter Visit Diagnoses Diagnosis Morbid obesity (HCC)- Primary Morbid obesity documented in this encounter
--- OUTSIDE RECORDS SUMMARY | 2024-11-04 23:00 | XMS_ITS | Encounter Summary ---
Author Organization [facility] Health Address [address] [place] [address] Care Team Providers Care Rail Car Mechanic Name Role Phone Unavailable Primary Care Provider Unavailabl e Reason for Visit * Reason Onset Date Comments Med Question 02/02/2021 Encounter Details Date Type Department Care Team (Late st Contact Info) Description 02/02/[address] [facility] Weight Management Services [address] [place] [phone] Rehan Mendoza MD [address] [place] [phone] Med Question Social History Tobacco Use Types Packs/Day Years Used Date Smoking Tobacco: Former Cigarettes Q uit: 06/2020 Smokeless Tobacco: Never Alcohol Use Standard Drinks/Week Comments Yes 14 (1 standard drink = 0.6 oz pu re alcohol) Sex and Gender Information Value Date Recorded Sex Assigned at Female 11/25/2020 1:10 PM ELECTRICIAN SOUND Gender Identity Female 11/25/2020 1:10 PM ELECTRICIAN SOUND Sexual Orientation Straight 02/02/2021 4: 18 PM [...] Telephone Encounter - Lesley Harkins LPN - 02/02/2021 2:51 PM CDT Pt called office and voiced she was told today after procedure she was to start Carafate and she went to pharmacy to pickle sorter script and they did not have a script. Ihsan RN from surgery called regarding this matter due to pt calling them. Looked at discharge paperwork and it states Carafate along with omeprazole. Both scripts sent in to pharmacy, pt aware and voices understanding. documented in this encounter Plan of Treatment Upcoming Encounters Date Type Department Care Team (Late st Contact Info) Description 03/15/2025 10:00 AM CDT Office Visit [facility] Health Weight Management Services [address] [place] [phone] Vianey Llanes, EVENTS AND PROMOTIONS ASSISTANT-ALUMINUM POOL INSTALLER [address] [place] [address] 03/15/2025 10:30 AM CDT Clinical Support [facility] Health Weight Management Services [address] [place] [phone] documented as of this encounter Visit Diagnoses Not on filedocumented in this encounter
--- OUTSIDE RECORDS SUMMARY | 2024-11-04 23:00 | XMS_ITS | Encounter Summary ---
Author Organization [facility] Address [address] [place] [address] Care Team Providers Care Engineering Research Manager Name Role Phone Unavailable Primary Care Provider Unavailabl e Encounter Details Date Type Department Care Team (Late st Contact Info) Description 01/30/2021 6:30 AM CDT - 01/30/2021 11:59 PM CDT Hospital Encounter [facility] [address] [place] [address] Rehan Mendoza MD [address] [place] [phone] Discharge Disposition: Home or Self Care Social History Tobacco Use Types Packs/Day Years Used Date Smoking Tobacco: Former Cigarettes Q uit: 06/2020 Smokeless Tobacco: Never Alcohol Use Standard Drinks/Week Comments Yes 0 (1 standard drink = 0.6 oz pur e alcohol) OCC. Sex and Gender Information Value Date Recorded Sex Assigned at Female 11/25/2020 1:10 PM STAVE CUTTER Gender Identity Female 11/25/2020 1:10 PM STAVE CUTTER Sexual Orientation Straight 02/02/2021 4: 18 PM CDT COVID-19 Exposure Response Date Recorded In the last month, have you been in contact with someone who was confirmed or suspected to have Coronavirus / COVID-19? No / Unsure 01/30/2021 6:27 AM CDT documented as of this encounter Medications at Time of Discharge Medication Sig Dispensed Refills Start Date End Date omeprazole (PRILOSEC) 20 MG capsule Take 1 capsule by mouth once daily 02/23/2021 vitamin D, ergocalciferol, (DRISDOL) 1.25 MG (62755 UT) capsuleIndications:Vit meza D Deficiency Take 1 capsule by mouth every 7 days Reasons: Vitamin D Deficiency 4 capsule 3 09/17/2020 03/10/2021 documented as of this encounter Plan of Treatment Upcoming Encounters Date Type Department Care Team (Late st Contact Info) Description 03/15/2025 10:00 AM CDT Office Visit [facility] Weight Management Services [address] [place] [phone] Vianey Llanes, TELEVISION AGENT-ADULT FAMILY HOME PROGRAM MANAGER [address] [place], [place] [phone] 03/15/2025 10:30 AM CDT Clinical Support [facility] Weight Management Services [address] [place] [phone] documented as of this encounter Procedures Procedure Name Priority Date/Time Associated Diagnosis Comments SARS-COV-2 (COVID-19) PANEL (SOIL) Routine 01/30/2021 6:37 AM CDT Preop examination SARS-COV-2 (COVID-19) IN HOUSE Routine 01/30/2021 6:37 AM CDT Preop examination documented in this encounter Results * SARS-COV-2 (COVID-19) IN HOUSE (01/30/2021 6:37 AM CDT) COVID-19 PCR Not detected Not detected 01/31/2021 8:43 AM CDT [facility] MICROBIOLOGY Microbiology SPECIMEN FROM NASOPHARYNGEAL STRUCTURE / Unknown Collection / Unknown 01/30/2021 6:37 AM CDT 01/30/2021 8:20 AM CDT Narrative [facility] MICROBIOLOGY - 01/31/2021 8:43 AM CDT This nucleic acid amplification assay performance was validated by [facility]. This test has [...] Mendoza MD LAB - MICROBIOLOGY O RDERABLES [facility] MICROBIOLOGY [address] [place] [address], [facility] [phone] documented in this encounter Visit Diagnoses Diagnosis Preop examination Preoperative examination, unspecified documented in this encounter Additional Health Concerns Infection Onset Date Last Indicated Resolved Time COVID-19 Under Investigation 01/30/2021 01/30/2021 01/31/2021 8:43 AM CDT documented as of this encounter
--- OUTSIDE RECORDS SUMMARY | 2024-11-04 23:00 | XMS_ITS | Encounter Summary ---
Author Organization [facility] Address [address] [place] [address] Care Team Providers Care Medical Record Consultant Name Role Phone Unavailable Primary Care Provider Unavailabl e Encounter Details Date Type Department Care Team (Late st Contact Info) Description 01/13/2021 9:00 AM MEDICAL INFORMATION SPECIALIST Office Visit [facility] Weight Management Services [address] [place] [phone] [place] [id number] [phone] Morbid obesity (HCC) (Primary Dx) Social History Tobacco Use Types Packs/Day Years Used Date Smoking Tobacco: Former Cigarettes Q uit: 06/2020 Smokeless Tobacco: Never Alcohol Use Standard Drinks/Week Comments Yes 0 (1 standard drink = 0.6 oz pur e alcohol) OCC. Sex and Gender Information Value Date Recorded Sex Assigned at Female 11/25/2020 1:10 PM MEDICAL INFORMATION SPECIALIST Gender Identity Female 11/25/2020 1:10 PM MEDICAL INFORMATION SPECIALIST Sexual Orientation Straight 02/02/2021 4: 18 PM CDT documented as of this encounter Progress Notes * Mandie Sanders APRN-CNS - 01/13/2021 7:57 AM CST Bariatric Pre-Surgical Psychosocial Assessment MARY LeeDEPUTY SHERIFF CUSTODY License # [id number] Maria Del Carmen Ray 1975 01/13/2021 [facility] Patient Verification & Telemedicine Based Consent I [...] verification and consent paragraph with the patient/surrogate. Purpose of Assessment: To determine, within the limits of psychological certainty, whether Rancho is comfortable with the decision to proceed with bariatric surgery; whether she comprehends the risks of bariatric surgery; whether she has reliable intimate relationships, supportive familydynamics and committed postoperative support following bariatric surgery; whether she has sufficient information on which to base informed consent. Information contained in this assessment is primarily obtained by patient self-reporting. Chief Complaint: Obesity History of Present Illness: Maria Del Carmen Ray is a 45 year old morbidly obese female with a BMI of 42.80 who was referred for a pre-surgical psychosocial assessment in consideration of bariatric surgery. Weight History: As a child, average. In adolescence, average. As an adult, morbidly obese. During the past year, her weight has fluctuated. Maria Del Carmen feels that she is 50 pounds overweight. The patient has tried diet medication, dieting, exercise and keeping a log of food to lose weight. Maria Del Carmen describes feeling her best at the age of 25, at which time she weighed 130 pounds. Eating Pattern: Maria Del Carmen states that she has 3 meals per day and meals consist of small portions. Meals consist of protein shakes, protein and vegetables. The patient eats healthy. Maria Del Carmen's averageeating habits include sit down restaurant meals 0 times per week; fast foods 0 times per week; fried foods 0 times per week; sweets 0 times per week; non-dietetic, non-alcoholic beverages 0 times perweek; and alcoholic beverages 0 times per week. she identifies the following as a regular part of her diet: protein shakes, chicken, fish, broccoli, spinach,okra and green beans. When in a stressful situation, she listens to music and dances. Maria Del Carmen is most stressed when she has financial issues. Patient has attended 3 support group meetings. she reports weekly exercise as Walking and working out at a gym 4-5 times per week. Diet History: Phentermine 2 months, lost 20 lbs.04/26. Eating Habits: Volume Eater, Sweet Eater Related Medical Issues: GERD, Morbid obesity, Esophageal reflux, Backache Related Medications: No diet medications Family History of Obesity: Patient reports the following: Maria Del Carmen's biological father was average and her biological mother was obese. Maria Del Carmen's biologicalpaternal grandfather was unknown and her biological paternal grandmother was obese. Maria Del Carmen's biological maternal grandfather was average and her biological maternal grandmother was average. Of her biological siblings, she describes 0 as obese and 0 as morbidly obese. 0 have cardiac disease, hypertension, or diabetes and she has 0 biological siblings. Attempts at Non-Surgical Weight Loss: Maria Del Carmen has a history of sustained attempts at non-surgical weight loss with success for varying periods of time subsequent to which she has ultimately regainedher weight. Given her current BMI of 42,80, weight loss surgery has been proposed in an effort to alleviate or to eliminate the future impact of co-morbid medical disease processes. Allergies: Allergies Allergen Reactions ??? Amoxicillin Rash and Unknown Past Medical History: No past medical history on file. Past Surgical History: Past Surgical History: Procedure Laterality Date ??? Appendectomy 03/1999 ??? Hysterectomy 12/2018 partial Trauma: Denies Illnesses: Backache, Esophageal reflux,Morbid Obesity,Anxiety, Diverticulosis, Edema of lower extremity,GERD, Vitamin D Deficiency Medications: Current Outpatient Medications: ??? omeprazole (PRILOSEC) 20 MG capsule ??? vitamin D, ergocalciferol, (DRISDOL) 1.25 MG (06736 UT) capsule Social History: Tobacco Use: No Alcohol Use: Minimal, social Substance Use: No Domestic Abuse: No Personal History of Mental Illness: No Psychological symptoms have not interfered with work, and have not interfered with personal relationships. Work History: Maria Del Carmen's total full-time work experience is 28 years and she has completed 13 yearsof school. Maria Del Carmen has held her present position for 7 years. Family History of Mental Illness: No Risks of Surgery: The risks, benefits, alternatives, and potential complications of bariatric surgery have been explained to her by the surgeon; she has researched and talked to other patients who have undergone the procedure; she wishes to proceed and believes that the risks of not undergoing the procedure are greater than the risks of undergoing the procedure; she believes that she has enough information regarding the procedure to make an informed decision. Psychiatric Screener: The following tools were used in the assessment today: Clinical Interview Eating Attitudes Test (EAT-26): Score is 9. Answered no to all behavioral health questions on test. Patient rates her life satisfaction as 8 on a scale of 1-10. Appearance: appropriate, well-groomed and neat Psychomotor: normal Speech: normal Orientation: alert to person, place, time, and situation and alert Attention/Concentration: normal Memory: intact short term memory Mood: euthymic Affect: appropriate, full and mood-congruent Thought Processes: lucid and logical Thought Content: normal Judgement/Insight: good Commitment to Postoperative Regimen: The patient understands that bariatric surgery is a tool to assist in weight loss and will not provide freedom from diet and exercise program must be followed faithfully after bariatric surgery; successful weight loss and control may require weight loss coachingand personal accountability; she is committed to the postoperative care, diet and exercise program prescribed to her by the bariatric surgeon. Post-Operative Support: Lester, significant other and her 5 children. Patient Expectations: Following bariatric surgery, hopes to maintain a healthy lifestyle and be there for her children. Patient Prediction of Outcome: Positive Patient's Assessment of Interview: . Maria Del Carmen understands that she has a right to direct telephone contact with a mental health professional and she believes that no further interview is necessary and/or desirable at this time. Maria Del Carmen has expressed an interest in a mental health professional telephone follow-up interview during the first post-operative year. Recommendations: Maria Del Carmen's mental health history suggests that she is a suitable candidate for bariatric surgery. The patient has documented history of major obesity-related diagnoses. Maria Del Carmen indicates that she has been adequately informed regarding the risks of, the benefits of, the alternatives to, and the potential complications of the procedure. The patient asserts that she has made an informed decision and professes reasonable post-procedural expectations. Maria Del Carmen describes reliable intimate relationships and indicates that post- operative care and nutritional support has been arranged. Patient location: [facility] outpatient clinic This encounter was performed using: Assessment interview Total time spent with the patient: 45 minutes SHELBY Lee CAL INFORMATION SPECIALIST documented in this encounter Plan of Treatment Upcoming Encounters Date Type Department Care Team (Late st Contact Info) Description 03/15/2025 10:00 AM CDT Office Visit [facility] Weight Management Services [address] [place] [phone] Vianey Llanes, BURT-RESEARCH SOFTWARE ENGINEER [address] [place] [address] 03/15/2025 10:30 AM CDT Clinical Support [facility] Health Weight Management Services [address] [place] [phone] documented as of this encounter Visit Diagnoses Diagnosis Morbid obesity (HCC)- Primary Morbid obesity documented in this encounter
--- OUTSIDE RECORDS SUMMARY | 2024-11-04 23:00 | XMS_ITS | Encounter Summary ---
Author Organization [facility] Health Address [address] [place] [address] Care Team Providers Care Telesales Specialist Name Role Phone Unavailable Primary Care Provider Unavailabl e Reason for Visit * Reason Onset Date Comments General 02/27/2021 Encounter Details Date Type Department Care Team (Late st Contact Info) Description 02/27/2021 Telephone [facility] Weight Management Services [address] [place] [phone] Rehan Mendoza MD [address] [place] [phone] General Social History Tobacco Use Types Packs/Day Years Used Date Smoking Tobacco: Former Cigarettes Q uit: 06/2020 Smokeless Tobacco: Never Alcohol Use Standard Drinks/Week Comments Yes 14 (1 standard drink = 0.6 oz pu re alcohol) Sex and Gender Information Value Date Recorded Sex Assigned at Female 11/25/2020 1:10 PM SELF RISING FLOUR MIXER Gender Identity Female 11/25/2020 1:10 PM SELF RISING FLOUR MIXER Sexual Orientation Straight 02/02/2021 4: 18 PM [...] * Telephone Encounter - Annika Hurst - 02/27/2021 12:56 PM CDT Pt called to ask about the ROVERTO videos. I explained what they were and that she needed to complete these prior to surgery. I sent her an email containing the ROVERTO information. documented in this encounter Plan of Treatment Upcoming Encounters Date Type Department Care Team (Late st Contact Info) Description 03/15/2025 10:00 AM CDT Office Visit [facility] Weight Management Services [address] [place] [phone] Vianey Llanes, TANK SETTER-CANDLEMAKER [address] [place] [address] 03/15/2025 10:30 AM CDT Clinical Support [facility] Weight Management Services [address] [place] [phone] documented as of this encounter Visit Diagnoses Not on filedocumented in this encounter
--- OUTSIDE RECORDS SUMMARY | 2024-11-04 23:00 | XMS_ITS | Encounter Summary ---
Author Organization [facility] Address [address] [facility] [place] [address] Care Team Providers Care Consumer Educator Name Role Phone Unavailable Primary Care Provider Unavailabl e Reason for Visit * Auth/Cert Specialty Diagnoses / Procedures Referred By Veronica bonner Referred To Contact Diagnoses Gastroesophageal reflux disease, unspecified whether esophagitis present Gastroesophageal reflux disease, unspecified whether esophagitis present [K21.9] Procedures ESOPHAGOGASTRODUODENOSCOPY (EGD) BIOPSY Referral ID Status Reason Start Date Expiration Date Visits Re quested Visits Authorized [id number] 1 1 Encounter Details Date Type Department Care Team (Late st Contact Info) Description 02/23/2021 12:01 PM CDT - 02/23/2021 5:25 PM CDT Hospital Encounter [facility] [address] [address] [place] [id number] [address] Surgery General Discharge Disposition: Home or Self Care Social History Tobacco Use Types Packs/Day Years Used Date Smoking Tobacco: Former Cigarettes Q uit: 06/2020 Smokeless Tobacco: Never Alcohol Use Standard Drinks/Week Comments Yes 14 (1 standard drink = 0.6 oz pu re alcohol) Sex and Gender Information Value Date Recorded Sex Assigned at Female 11/25/2020 1:10 PM FILAMENT TESTER Gender Identity Female 11/25/2020 1:10 PM FILAMENT TESTER Sexual Orientation Straight 02/02/2021 4: 18 PM CDT COVID-19 Exposure Response Date Recorded In the last month, have you been in contact with someone who was confirmed or suspected to have Coronavirus / COVID-19? No / Unsure 02/20/2021 6:40 AM CDT documented as of this encounter Last Filed Vital Signs Vital Sign Reading Time Taken Comments Blood Pressure 134/74 02/23/2021 5:00 PM CDT Pulse 16 02/23/2021 5:00 PM CDT Temperature 36 ??C (96.8 ??F) 02/23/2021 4:50 PM CDT Respiratory Rate 15 02/23/2021 5:00 PM CDT Oxygen Saturation 100% 02/23/2021 5:00 PM CDT Inhaled Oxygen Concentration - - [...] 03/04/2021 vitamin D, ergocalciferol, (DRISDOL) 1.25 MG (88752 UT) capsuleIndications:Vi tamin D Deficiency Take 1 capsule by mouth every 7 days Reasons: Vitamin D Deficiency 4 capsule 3 09/17/2020 03/10/2021 documented as of this encounter H&P Notes * Rehan Mendoza MD - 02/23/2021 1:40 PM CDT [facility] [place] [address] . . Date of encounter: 02/05/2021 Provider: Rehan Mendoza MD Patient: Maria Del Carmen Ray CSN: [id number] Specialty: Bariatric Surgery Date of : 1975 [...] you have an unusual work schedule? no Arabi Sleepiness Scale total points: 1 Past Medical [...] Gatherings with Friends and Family: ??? Attends [employer] Services: ??? Active Member of Clubs [...] ??? vitamin D, ergocalciferol, (DRISDOL) 1.25 MG (48743 UT) capsule Take 1 capsule by mouth [...] ??? vitamin D, ergocalciferol, (DRISDOL) 1.25 MG (88815 UT) capsule Take 1 capsule by mouth [...] No palpable visceromegaly. No palpableventral hernias. Skin: [place] and moist. No ulcers, rashes, or lesions. Extremities: Well perfused. No gross joint deformity noted Neurological: Cranial nerves 2-12 were grossly intact. Psychiatric: The patient's mood and affect appeared to be appropriate Labs No results for input(s): WBC, RBC, HGB, HCT, PLTCOUNT in the last 52261 hours. No results for input(s): SODIUM, POTASSIUM, CO2, BUN, CREATININE in the last 91615 hours. Invalid input(s): CLORIDE No results for input(s): GLUCOSE in the last 48980 hours. No results for input(s): AST, ALT in the last 68666 hours. No results for input(s): LDL, HDL, TRIG, TSH in the last 22881 hours. No results for input(s): HGBA1C in the last 00916 hours. No results for input(s): PT, PTT, INR, TSH in the last 96331 hours. No results for input(s): TSH in the last 83573 hours. No results for input(s): IRON in the last 85359 hours. No results for input(s): BUYALWTC85 in the last 29656 hours. No results for input(s): VITAMINA in the last 15089 hours. No results for input(s): IRON in the last 28012 hours. No results for input(s): VITK1 in the last 65958 hours. No results for input(s): [id number] in the last 55216 hours. No results for input(s): ALPHATOCOPH in the last 93766 hours. No results for input(s): GAMMATOCOPH in the last 30877 hours. No results for input(s): MAGMGDL in the last 83265 hours. No results for input(s): PHOS in the last 67191 hours. Some lab results will be in [...] aVF??- ??Cardiac clearance obtained 11/24/2020 Cornell Chavarria ?? Consults and Test ordered:?? None [...] Role: * Rehan Mendoza MD - Primary CATSHOVEL DRIVER: Biometric Screener: Arlette Menendez, RN Scrub Person: Catherine Gabriel [...] 10:00 AM CDT Office Visit [facility] [address] [place] [phone] Vianey Llanes, KETTLE CHIPPER-SIDE PULLER [address] [place] [address] 03/15/2025 10:30 AM CDT Clinical Support [facility] [address] [place] [address] Scheduled Orders Name Type Priority Associated Diagnoses Orde r Schedule EGD GI Routine ONCE for 1 Occ urrences starting 02/23/2021 until 02/23/2021 documented as of this encounter Procedures Procedure Name Priority Date/Time Associated Diagnosis Comments GROSS + MICRO EXAM (ILL) Routine 02/23/2021 4:01 PM CDT Gastroesophageal reflux disease, unspecified whether esophagitis present IN EGD FLEX TRANSORAL W BX SNGL OR MULT 02/23/2021 3:47 PM CDT Gastroesophageal reflux disease, unspecified whether esophagitis present Special Needs ARRIVAL TIME:1230 documented in this encounter Results * GROSS + MICRO EXAM (ILL) (02/23/2021 4:01 PM CDT) Case Report Surgical Pathology Report ? Case: [id number] ? Authorizing Provider: ??Rehan Mendoza MD ?Collected: ? 02/23/2021 04:01 PM ? Ordering Location: ? [facility] ?Received: ?02/24/2021 09:34 AM ? Pathologist: ? Chuckie Lujan MD ? Specimen: ?Pylorus, pylorus biopsy to r/o hpylori ? 02/25/2021 9:22 AM T [facility] Final Diagnosis Stomach, pyloric, biopsy: - ANTRAL MUCOSA WITH NON-DIAGNOSTIC ABNORMALITY. - NO HELICOBACTER PYLORI ORGANISMS IDENTIFIED (H&E EXAM). 02/25/2021 9:22 AM [facility] Microscopic Description and Comment Lamina propria smooth muscle proliferation and sparse eosinophils and mononuclear chronic cells are seen. No active gastritis. Microscopic examination is performed and substantiates the above diagnosis. 02/25/2021 9:22 AM [facility] Clinical History Gastroesophageal reflux disease, unspecified whether esophagitis present. Per EMR, pyloric ulcer healed, no gastritis, normal EGD 02/25/2021 9:22 AM CDT [facility] Gross Description Received in formalin labeled Maria Del Carmen Campbellnings and pylorus biopsy are three pink-crow, soft irregular tissue fragments with an aggregate measurement of 0.6 x 0.3 x 0.25 cm, each measuring 0.3 cm in greatest dimension. Submitted in toto in A1. LS/lk 02/25/2021 9:22 AM CDT [facility] Disclaimer The performance characteristics of all immunohistochemical and indirect immunofluorescence stains (if any) cited in this report were determined by the Histopathology Laboratory of [facility]. Some of these tests were developed by [...] stains prepared at [facility], [place]. [address] (CLIA# [id number]) unless otherwise specified. This case was interpreted by the [facility] Department of Pathology. When applicable, select reference laboratory testing is performed at the [facility], [address] [place] [address]. 02/25/2021 9:22 AM CDT [facility] Embedded Images 02/25/2021 9:22 AM CDT [facility] Pathology/Cytology ENTIRE PYLORUS / Unknown 02/23/2021 4:01 PM CDT 02/24/2021 9:34 AM CDT Comment:Pre-op diagnosis: Gastroesophageal reflux disease, unspecified whether esophagitis present [K21.9] Rehan Mendoza MD LAB - PATHOLOGY/CYTO LOGY ORDERABLES [facility] [address] documented in this encounter Visit Diagnoses Diagnosis Gastroesophageal reflux disease, unspecified whether esophagitis present Pre-op exam Preoperative examination, unspecified documented in this encounter Administered Medications Inactive [...] ($ New Bag/Syri nge - Provider: Rossy Cuevas RN)1604 (Rate Change - Provider: Dima Palacios APRN-MAINTENANCE AIDE) PRN Medication Order 02/21/2021 02/22/2021 02/23/2021 ondansetron (Zofran) injection 4 mg 4 mg, Intravenous, ONCE PRN, Nausea/Vomiting, 1 dose, Starting on Tue02/23/21 at 1624, Until Tue02/23/21 at 1826, First choice, PACU documented in this encounter
--- OUTSIDE RECORDS SUMMARY | 2024-11-04 23:00 | XMS_ITS | Encounter Summary ---
Author Organization [facility] Address [address] [place] [address] Care Team Providers Care Occupational Physician Name Role Phone Unavailable Primary Care Provider Unavailabl e Reason for Visit * Reason Onset Date Comments General 01/09/2021 Encounter Details Date Type Department Care Team (Late st Contact Info) Description 01/09/2021 Telephone [facility] Management Services [address] [place] [address] Tram Pemberton, POLISHER [facility] [address] [address] General Social History Tobacco Use Types Packs/Day Years Used Date Smoking Tobacco: Former Cigarettes Q uit: 06/2020 Smokeless Tobacco: Never Alcohol Use Standard Drinks/Week Comments Yes 0 (1 standard drink = 0.6 oz pur e alcohol) OCC. Sex and Gender Information Value Date Recorded Sex Assigned at Female 11/25/2020 1:10 PM SUPERVISOR TRANSCRIBING OPERATORS Gender Identity Female 11/25/2020 1:10 PM SUPERVISOR TRANSCRIBING OPERATORS Sexual Orientation Straight 02/02/2021 4: 18 PM CDT documented as of this encounter Miscellaneous Notes * Telephone Encounter - Chantelle Patricia CNA - 01/09/2021 10:18 AM SUPERVISOR [employer]ANSCRIBING [employer]PERAT[employer] Patient called wanting to inform you that she completed the nicotine test yesterday should be expecting results soon. RVISOR TRANSCRIBING OPERATORS documented in this encounter Plan of Treatment Upcoming Encounters Date Type Department Care Team (Late st Contact Info) Description 03/15/2025 10:00 AM CDT Office Visit [facility] Weight Management Services [address] [place] [phone] Vianey Llanes, POLISHER [employer] [address], [place] [phone] 03/15/2025 10:30 AM CDT Clinical Support [facility] [address] [place] [phone] documented as of this encounter Visit Diagnoses Not on filedocumented in this encounter
--- OUTSIDE RECORDS SUMMARY | 2024-11-04 23:00 | XMS_ITS | Encounter Summary ---
Author Organization [facility] Address [address] [facility] [place] [address] Care Team Providers Care Events Traffic Controller Name Role Phone Unavailable Primary Care Provider Unavailabl e Reason for Visit * Auth/Cert Specialty Diagnoses / Procedures Referred By Veronica bonner Referred To Contact Diagnoses Gastroesophageal reflux disease, unspecified whether esophagitis present Gastroesophageal reflux disease, unspecified whether esophagitis present [K21.9] Procedures ESOPHAGOGASTRODUODENOSCOPY (EGD) BIOPSY Referral ID Status Reason Start Date Expiration Date Visits Re quested Visits Authorized [id number] 1 1 Encounter Details Date Type Department Care Team (Late st Contact Info) Description 02/23/2021 3:47 PM CDT Anesthesia Event [facility] [address] [place], [place] [address] Roverto Novak MD [address] [place] [address] Aysha Evans MD [address] [facility] [address] [place] [address] Anesthesia Record Procedure Summary Procedure Name Responsible Anesthesiologist Anesthesia Start Time Anesthesia Stop Time ESOPHAGOGASTRODUODENOSCOPY W ITH BIOPSY (Esophagus) Roverto Novak MD 02/23/21 1547 02/23/21 1615 Events Date Time Event Comment 02/23/2021 1222 1547 An Start 1547 An Start Data 1550 PT Reassessment 1558 Timeout Anesthesia part icipated in timeout at the time documented in the record by nursing. 1605 Electnc Sig 1608 an stop data 1615 An Stop Meds Name Total fentaNYL 100 mcg/2ml injection 100 mcg lidocaine (XYLOCAINE) 2% injection (20 m g/ml) 80 mg propofol (DIPRIVAN) injection 10mg/ml (E NDO USE) 20 mL lactated ringers infusion 0 mL * Agents Name Exp. N2O O2 Flow - Auxiliary O2 * Blood No blood administrations on file. Lines, Drains, and Airways Type Details Placement Removal Peripheral IV Date: 02/23/21; Time: 1230; Orientation: Left; Placed By: ka; Tolerance: Well 02/23/21 1230 by Rossy Cuevas RN 02/23/21 1700 by Brenda Taylor RN Procedural Site (Incision) 02/23/21; 1559; Mouth; Endoscopic; EGD; 02/23/21; 2326 02/23/21 1559 by Arlette Menendez RN 02/23/21 2326 by Generic, Auto Release documented in this encounter Social History Tobacco Use Types Packs/Day Years Used Date Smoking Tobacco: Former Cigarettes Q uit: 06/2020 Smokeless Tobacco: Never Alcohol Use Standard Drinks/Week Comments Yes 14 (1 standard drink = 0.6 oz pu re alcohol) Sex and Gender Information Value Date Recorded Sex Assigned at Female 11/25/2020 1:10 PM SPECIAL WARFARE BOAT OPERATOR Gender Identity Female 11/25/2020 1:10 PM SPECIAL WARFARE BOAT OPERATOR Sexual Orientation Straight 02/02/2021 4: 18 [...] as of this encounter Progress Notes * Samm Alford APRN-ROAD TRAIN DRIVER - 02/23/2021 4:25 PM CDT ANESTHESIA POSTOP EVALUATION NOTE Procedure: ESOPHAGOGASTRODUODENOSCOPY WITH BIOPSY (Esophagus) Maria Del Carmen Ray is a 45 year old female Patient Vitals for the past 6 hrs: BP Temp Pulse Resp SpO2 Pain Rating Score #1 Pain Scale/Observation 02/23/21 1223 149/87 (!) 96.4 ??F (35.8 ??C) 66 20 100 % -- -- 02/23/21 1614 119/70 97.3 ??F (36.3 ??C) 68 20 97 % 0 N 02/23/21 1615 128/74 -- 61 18 95 % -- -- 02/23/21 1620 132/90 -- 61 20 100 % -- -- 02/23/21 1625 -- -- 67 18 100 % -- -- Anesthesia Type: MAC Pre-op Diagnosis Codes: * Gastroesophageal reflux disease, unspecified whether esophagitis present [K21.9] Mental Status: awake, alert, oriented, sufficiently recovered from acute administration of anesthesia to participate in the evaluation and neurologic status has returned to expected level of consciousness Neuro Status: No numbness, tingling or visual disturbances Respiratory Function: natural Cardiac Function: stable Postop Pain: acceptable to the patient Postop Hydration: adequate Postop Nausea: none Assessment: no apparent anesthetic complications, patient tolerated procedure well and no evidence of recall Patient Disposition: Release from Anesthesia Care COMPLICATIONS: No complications documented. * Amy Wong APRN-IMAGERY ANALYST - 02/23/2021 12:10 PM CDT ANESTHESIA PREOPERATIVE EVALUATION NOTE Procedure: ESOPHAGOGASTRODUODENOSCOPY WITH BIOPSY Vitals: No data found. ANESTHESIA PRE-EVALUATION [...] procedural Anesthetic Plan was discussed with the anesthesiologist and ROAD TRAIN DRIVER. BMI, Height, Weight Tobacco History Estimated body mass index is 41.98 kg/m?? as calculated from the following: Height as of this encounter: 1.6 m (5' 3 ). Weight as of this encounter: 107.5 kg (237 lb). Social History Tobacco Use Smoking Status Former Smoker ??? Quit date: 06/2020 ??? Years since quittin.7 Smokeless Tobacco Never Used Alcohol History Drug History Social History Substance and Sexual Activity Alcohol Use Yes ??? Alcohol/week: 14.0 standard drinks ??? Types: 14 Glasses of wine per week Social History Substance and Sexual Activity Drug Use Never Outpatient Medications: Inpatient Medications: Outpatient Medications Marked as Taking for the 02/23/21 encounter (Hospital Encounter) Medication Sig Last Dose ??? omeprazole Take 2 (two) capsules by mouth once daily ? ? sucralfate Take 1 g by mouth 4 times daily - before meals & nightly ??? vitamin D (ergocalciferol) Take 1 capsule by mouth every 7 days Reasons: Vitamin D Deficiency Current Facility-Administered Medications Medication Dose Last Admin ??? 0.9% NaCl [...] Notes * Anesthesia Transfer of Care - Dima Palacios APRN-ROAD TRAIN DRIVER - 02/23/2021 4:14 PM CDT ANESTHESIA TRANSFER OF CARE NOTE Today's Date: 02/23/2021 Date of : 1975 Patient: Maria Del Carmen Ray Procedure(s): ESOPHAGOGASTRODUODENOSCOPY WITH BIOPSY Surgeon(s): Primary: Rehan Mendoza MD Preop Diagnosis: Pre-op Diagnois: * Gastroesophageal reflux disease, unspecified whether esophagitis present [K21.9] Pre-op Meds (From admission, onward) Start Stop Status Route Frequency Ordered 02/23/21 1206 0.9% NaCl injection 3 mL -- Dispensed IK PRE-PROCEDURE MULTIPLE 02/23/21 1206 02/23/21 1215 famotidine (Pepcid) injection 20 mg 02/23 1236 Completed IV PRE-OP ONCE 02/23/21 1206 02/23/21 1550 fentaNYL (PF) (Sublimaze) injection -- Sent IV PRN 02/23/21 1553 02/23/21 1215 lactated ringers infusion -- Verified IV PRE-OP CONTINUOUS 02/23/21 1206 02/23/21 1556 lidocaine (Xylocaine) 2 % injection -- Sent IV PRN 02/23/21 1601 02/23/21 1558 propofol (Diprivan) injection -- Sent IV CONTINUOUS PRN 02/23/21 1601 Post-op Diagnosis: * Gastroesophageal reflux disease, unspecified whether esophagitis present [K21.9] . Allergies Allergen Reactions ??? Amoxicillin Rash and Unknown Vitals: No data found. Lines, Drains, and Airways Type Details Placement Removal Peripheral IV Date: 02/23/21; Time: 1230; Orientation: Left; Location: Hand; Placed By: ka; Gauge: 20 Gauge; Locals: None; Tolerance: Well 02/23/21 1230 by Rossy Cuevas RN Intraprocedure I/O Totals Intake propofol (DIPRIVAN) injection 10mg/ml (ENDO USE) 20.00 mL Total Intake 20 mL Patient Transfer Location: PACU Transport Airway: spontaneous respirations Transport Monitoring: heart rate, continuous pulse oximetry, frequent blood pressure checks and purse seiner Complications: None Comments: HR 65 BP 119/70 RR 17 spO2 94% Handoff Given? Yes Checklist or Protocol - [...] of report from the receiving PACUteam. EDISON Phillips documented in this encounter Plan of Treatment Upcoming Encounters Date Type Department Care Team (Late st Contact Info) Description 03/15/2025 10:00 AM CDT Office Visit [facility] Services [address] [place] [phone] Vianey Llanes, PANEL MONITOR-IMAGERY ANALYST [address] [place], [place] [phone] 03/15/2025 10:30 AM CDT Clinical Support [facility] [address] [place] [phone] documented as of this encounter Visit Diagnoses Not on filedocumented in this encounter Administered Medications Inactive Administered Medications - up to 3 most recent administrations Medication Order MAR Action Action Date Dose Rate Site fentaNYL (PF) (Sublimaze) injection Intravenous, PRN, Starting on Tue02/23/21 at 1550, Until Tue02/23/21 at 1615, Anesthesia Intra-op $ Given 02/23/2021 3:50 PM CDT 100 mcg lactated ringers infusion at 75 mL/hr, Intravenous, PRE-OP CONTINUOUS, Starting on Tue02/23/21 at 1215, Until Tue02/23/21 at 1826, Pre-op Rate Change 02/23/2021 4:04 PM CDT 800 mL/hr $ New Bag/Syringe 02/23/2021 12:35 PM CDT 75 mL /hr lidocaine (Xylocaine) 2 % injection Intravenous, PRN, Starting on Tue02/23/21 at 1556, Until Tue02/23/21 at 1615, Anesthesia Intra-op $ Given 02/23/2021 3:56 PM CDT 80 mg propofol (Diprivan) injection Intravenous, CONTINUOUS PRN, Starting on Tue02/23/21 at 1558, Until Tue02/23/21 at 1615, Anesthesia Intra-op $ New Bag/Syringe 02/23/2021 3:58 PM CDT documented in this encounter
--- OUTSIDE RECORDS SUMMARY | 2024-11-04 23:00 | XMS_ITS | Encounter Summary ---
Author Organization [facility] Address [address] [place] [address] Care Team Providers Care Automatic Equipment Technician Name Role Phone Unavailable Primary Care Provider Unavailabl e Reason for Visit * Auth/Cert Specialty Diagnoses / Procedures Referred By Veronica bonner Referred To Contact Diagnoses Gastroesophageal reflux disease, unspecified whether esophagitis present Gastroesophageal reflux disease, unspecified whether esophagitis present [K21.9] Procedures ESOPHAGOGASTRODUODENOSCOPY (EGD) BIOPSY Referral ID Status Reason Start Date Expiration Date Visits Re quested Visits Authorized [id number] 1 1 Encounter Details Date Type Department Care Team (Late st Contact Info) Description 02/02/2021 12:14 PM CDT Anesthesia Event [facility] [address] [place], [place] [address] Roverto Novak MD [address] [place], [place] [id number] Anesthesia Record Procedure Summary Procedure Name Responsible Anesthesiologist Anesthesia Start Time Anesthesia Stop Time ESOPHAGOGASTRODUODENOSCOPY W ITH BIOPSY (Esophagus) Roverto Novak MD 02/02/21 1214 02/02/21 1236 Events Date Time Event Comment 02/02/2021 0851 1214 An Start 1214 An Start Data 1217 PT Reassessment 1217 Electnc Sig 1220 Timeout Anesthesia part icipated in timeout at the time documented in the record by nursing. 1229 an stop data 1229 ANPTO2 1236 An Stop Meds Name Total midazolam (VERSED) 1 mg/mL injection 2 m g lidocaine (XYLOCAINE) 2% injection 40 mg propofol 500mg/50mL injection 372.9 mg ketamine 50 mg/ml injection 20 mg lactated ringers infusion 0 mL * Agents Name Exp. Desflurane Exp. N2O O2 Insp. Desflurane * Blood No blood administrations on file. Lines, Drains, and Airways Type Details Placement Removal Peripheral IV Date: 02/02/21; Time: 846; Orientation: Left; Tolerance: Well 02/02/21 0847 by Elizabeth Vogel RN 02/02/21 1320 by Rossy Cuevas RN Procedural Site (Incision) 02/02/21; 1221; Mouth; Endoscopic; EGD; 02/02/21; 194802/02/21 1221 by Priya Hurtado RN 02/02/211948 by Generic, Auto Release documented in this encounter Social History Tobacco Use Types Packs/Day Years Used Date Smoking Tobacco: Former Cigarettes Q uit: 06/2020 Smokeless Tobacco: Never Alcohol Use Standard Drinks/Week Comments Yes 14 (1 standard drink = 0.6 oz pu re alcohol) Sex and Gender Information Value Date Recorded Sex Assigned at Female 11/25/2020 1:10 PM DROP CREW LABORER Gender Identity Female 11/25/2020 1:10 PM DROP CREW LABORER Sexual Orientation Straight 02/02/2021 4: 18 PM CDT COVID-19 Exposure Response Date Recorded In the last month, have you been in contact with someone who was confirmed or suspected to have Coronavirus / COVID-19? No / Unsure 01/30/2021 6:27 AM CDT documented as of this encounter Progress Notes * Roverto Novak MD - 02/02/2021 12:54 PM CDT ANESTHESIA POSTOP EVALUATION NOTE Procedure: ESOPHAGOGASTRODUODENOSCOPY WITH BIOPSY (N/A Esophagus) Maria Del Carmen Ray is a 45 year old female Patient Vitals for the past 6 hrs: BP Temp Pulse Resp SpO2 Pain Rating Score #1 Pain Scale/Observation 02/02/21 0825 149/88 98.6 ??F (37 ??C) 68 16 99 % -- -- 02/02/21 0850 140/87 -- -- -- -- -- -- 02/02/21 1235 126/69 97.3 ??F (36.3 ??C) 88 13 98 % 0 N 02/02/21 1240 113/67 -- 80 17 99 % 0 N 02/02/21 1245 128/72 -- 71 16 96 % -- -- Anesthesia Type: MAC Pre-op Diagnosis Codes: * Gastroesophageal reflux disease, unspecified whether esophagitis present [K21.9] Mental Status: awake, alert and oriented Neuro Status: No numbness, tingling or visual disturbances Respiratory Function: natural Cardiac Function: stable Postop Pain: acceptable to the patient Postop Hydration: adequate Postop Nausea: none Assessment: no apparent anesthetic complications, patient tolerated procedure well and no evidence of recall Patient Disposition: Release from Anesthesia Care COMPLICATIONS: No complications documented. * Amy Wong APRN-MARINE SPECIALIST - 02/02/2021 8:35 AM CDT ANESTHESIA PREOPERATIVE EVALUATION NOTE Procedure: ESOPHAGOGASTRODUODENOSCOPY WITH BIOPSY Vitals: Patient Vitals for the past 6 hrs: BP Temp Pulse Resp SpO2 02/02/21 0825 149/88 98.6 ??F (37 ??C) 68 16 99 % ANESTHESIA PRE-EVALUATION NOTE History of Present Illness: GERD, pre-eval for gastric sleeve Physical Exam: Orientation X3 Airway/Mallampati Score: II [...] Poor Exercise Tolerance: No Recent Chest Pain: No Shortness of Breath: No AICD/Pacemaker: No Renal Disease: No ANESTHESIA PLAN ASA Score: 2 NPO Status: No solids since midnight and No liquids within 2 hours Anesthesia Plan: MAC Planned Induction: intravenous Planned Postop Destination: endo Anesthetic plan was discussed with: patient Anesthetic Plan discussion was: Consented Use of blood products were discussed with: patient Use of blood product discussion was: Consented The patient's procedural Anesthetic Plan was discussed with the anesthesiologist and NEWSPAPER ILLUSTRATOR. BMI, Height, Weight Tobacco History Estimated body mass index is 42.76 kg/m?? as calculated from the following: Height as of this encounter: 1.626 m (5' 4 ). Weight as of this encounter: 113 kg (249 lb 1.9 oz). Social History Tobacco Use Smoking Status Former Smoker ??? Quit date: 06/2020 ??? Years since quittin.6 Smokeless Tobacco Never Used Alcohol History Drug History Social History Substance and Sexual Activity Alcohol Use Yes ??? Alcohol/week: 14.0 standard drinks ??? Types: 14 Glasses of wine per week Social History Substance and Sexual Activity Drug Use Never Outpatient Medications: Inpatient Medications: Outpatient Medications Marked as Taking for the 02/02/21 encounter (Hospital Encounter) Medication Sig Last Dose ??? omeprazole Take 1 capsule by mouth once daily ??? vitamin D (ergocalciferol) Take 1 capsule by mouth every 7 days Reasons: Vitamin D Deficiency Current Facility-Administered Medications Medication Dose Last Admin ??? 0.9% NaCl 3 mL ??? famotidine 20 mg ??? lactated ringers Allergies: Allergies Allergen Reactions ??? Amoxicillin Rash and Unknown Relevant Problems No relevant active problems Problem List: Patient Active Problem List Diagnosis Date Noted ??? Preop examination Priority: Not Prioritized ??? [...] ??? Appendectomy 03/1999 ??? ENDOSCOPY, UPPER ??? Hysterectomy 12/2018 partial Lab Results: No results found for requested labs within last 120 days. No results found for requested labs within last 120 days. documented in this encounter Miscellaneous Notes * Anesthesia Transfer of Care - Elmer Kelly, GRAD[employer] 7 AND 8 TEACHER-NEWSPAPER ILLUSTRATOR - 02/02/2021 12:36 PM CDT ANESTHESIA TRANSFER OF CARE NOTE Today's Date: 02/02/2021 Date of : 1975 Patient: Maria Del Carmen Ray Procedure(s): ESOPHAGOGASTRODUODENOSCOPY WITH BIOPSY Surgeon(s): Primary: Rehan Mendoza MD Preop Diagnosis: Pre-op Diagnois: * Gastroesophageal reflux disease, unspecified whether esophagitis present [K21.9] Pre-op Meds (From admission, onward) Start Stop Status Route Frequency Ordered 02/02/21 0827 0.9% NaCl injection 3 mL -- Dispensed IK PRE-PROCEDURE MULTIPLE 02/02/21 0827 02/02/21 0830 famotidine (Pepcid) injection 20 mg 02/02 0849 Completed IV PRE-OP ONCE 02/02/21 0827 02/02/21 1214 ketamine (Ketalar) injection -- Sent PRN 02/02/21 1219 02/02/21 0830 lactated ringers infusion -- Verified IV PRE-OP CONTINUOUS 02/02/21 0827 02/02/21 1214 lidocaine (Xylocaine) 2 % injection -- Sent PRN 02/02/21 1219 02/02/21 1214 midazolam (Versed) injection -- Sent PRN 02/02/21 1219 02/02/21 1214 propofol (Diprivan) infusion -- Sent CONTINUOUS PRN 02/02/21 1219 Post-op Diagnosis: * Gastroesophageal reflux disease, unspecified whether esophagitis present [K21.9] . Allergies Allergen Reactions ??? Amoxicillin Rash and Unknown Vitals: No data found. Lines, Drains, and Airways Type Details Placement Removal Peripheral IV Date: 02/02/21; Time: 0847; Orientation: Left; Location: Hand; Locals: None; Tolerance: Well 02/02/21 0847 by Elizabeth Vogel RN Intraprocedure I/O Totals None Patient Transfer Location: PACU Transport Airway: spontaneous respirations and supplemental O2 Complications: None Handoff Given? Yes Checklist or [...] of report from the receiving PACUteam. EDISON Shi documented in this encounter Plan of Treatment Upcoming Encounters Date Type Department Care Team (Late st Contact Info) Description 03/15/2025 10:00 AM CDT Office Visit [facility] [address] [place] [phone] Vianey Llanes APRN-CNP [address], [place] [phone] 03/15/2025 10:30 AM CDT Clinical Support [facility] [address] [place] [phone] documented as of this encounter Visit Diagnoses Not on filedocumented in this encounter Administered Medications Inactive Administered Medications - up to 3 most recent administrations Medication Order MAR Action Action Date Dose Rate Site ketamine (Ketalar) injection PRN, Starting on Tue02/02/21 at 1214, Until Tue02/02/21 at 1237, Anesthesia Intra-op $ Given 02/02/2021 12:14 PM CDT 20 mg lidocaine (Xylocaine) 2 % injection PRN, Starting on Tue02/02/21 at 1214, Until Tue02/02/21 at 1237, Anesthesia Intra-op $ Given 02/02/2021 12:14 PM CDT 40 mg midazolam (Versed) injection PRN, Starting on Tue02/02/21 at 1214, Until Tue02/02/21 at 1237, Anesthesia Intra-op $ Given 02/02/2021 12:14 PM CDT 2 mg propofol (Diprivan) infusion CONTINUOUS PRN, Starting on Tue02/02/21 at 1214, Until Tue02/02/21 at 1237, Anesthesia Intra-op $ New Bag/Syringe 02/02/2021 12:14 PM CDT 150 mcg/kg/min 101.7 mL/hr documented in this encounter
--- OUTSIDE RECORDS SUMMARY | 2024-11-04 23:00 | XMS_ITS | Encounter Summary ---
Author Organization [facility] Address [address] [place] [address] Care Team Providers Care International Account Representative Name Role Phone Unavailable Primary Care Provider Unavailabl e Encounter Details Date Type Department Care Team (Late st Contact Info) Description 03/02/2021 10:00 AM CDT Video Visit [facility] [address] [place] [phone] Rehan Mendoza MD [address] [place] [phone] Body mass index (BMI) of 40.0-44.9 in adult (HCC) ; Morbid obesity (HCC) Social History Tobacco Use Types Packs/Day Years Used Date Smoking Tobacco: Former Cigarettes Q uit: 06/2020 Smokeless Tobacco: Never Alcohol Use Standard Drinks/Week Comments Yes 14 (1 standard drink = 0.6 oz pu re alcohol) Sex and Gender Information Value Date Recorded Sex Assigned at Female 11/25/2020 1:10 PM 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 Patient location: Home This encounter was performed using: audio and video Total time spent on visit on date of encounter is: 43 minutes MEDICAL NUTRITION THERAPY Weight Management Services Telehealth Bariatric Pre-Op Education Class Date: 03/02/2021 Patient: Maria Del Carmen Ray Date of : 1975 (45 year old) PCP Physician: SANGEETHA Kumar Referring Physician: Kelly Time Class Began: 1000 Time Class Ended: 1043 Height: 5'3 Current Weight: 238.3# Weight Change From Last Visit: none Pt seen in group setting for bariatric pre-operative nutrition education. Basic nutrition, phase I bariatric diet principles and diet progression, approved protein supplementation, nutrient deficiencies and supplementation, possible complications, and keys for success were discussed. Demonstrated proper way to drink to prevent swallowing air. Reviewed answers to pre-surgery quiz and signed for completion. Quiz to be further reviewed by surgeon at pre-op visit later today. Pt was in attendance via Zoom. Pt was attentive throughout presentation, asked appropriate questions and v/u. Pt's compliance is expected to be fair to good. Barriers were not identified at this time. RD encouraged pt contact office with any questions or concerns before surgery. Pt was assured that regular follow-up with RD in the hospital post-op and at outpatient visits would be provided and encouraged. RD available as needed between scheduled appointments. Quiz Procedure: VSG How long in hospital: 1 night Possible Post Op Complications: bleeding, infection, PNA, blood clots, vitamin/mineral deficiencies Necessary to take vitamins after surgery? Yes For how long: Life How many cc/mL in 1 oz?: 30 How many oz can you drink day 1 post op every 30 minutes?: 1 oz How many oz can you drink day 2 post op every 30 minutes?: 2 oz Once d/c, what should you do if you experience any unusual symptoms or pain? Call office, call surgeon, go to ER How will you know when to begin eating foods? When RD tells you it's okay You will be a pt of [facility] for how long? Life Is physical activity after surgery optional or required? Required How often? Ideally 5x/week for 30 minutes/x Total MNT minutes this calendar year: [id number] documented in this encounter Plan of Treatment Upcoming Encounters Date Type Department Care Team (Late st Contact Info) Description 03/15/2025 10:00 AM CDT Office Visit [facility] [address] [place] [phone] Vianey Llanes, DELIVERY DRIVER-RETAIL ADVISOR [address] [place], [place] [phone] 03/15/2025 10:30 AM CDT Clinical Support [facility] [address] [place] [phone] documented as of this encounter Visit Diagnoses Diagnosis Body mass index (BMI) of 40.0-44.9 in adult (HCC)- Primary Body Mass Index 40.0-44.9, adult Morbid obesity (HCC) Morbid obesity documented in this encounter
--- OUTSIDE RECORDS SUMMARY | 2024-11-04 23:00 | XMS_ITS | Encounter Summary ---
Author Organization [facility] Address [address] [facility] [place] [place] [address] Care Team Providers Care Balloon Maker Name Role Phone Unavailable Primary Care Provider Unavailabl e Reason for Visit * Reason Onset Date Comments General 10/13/2020 Encounter Details Date Type Department Care Team (Late st Contact Info) Description 10/13/2020 Telephone [facility] [address] [place] [phone] Tram Pemberton, WATER TRUCK DRIVER-[facility] [address] [address] General Social History Tobacco Use Types Packs/Day Years Used Date Smoking Tobacco: Former Cigarettes Q uit: 06/2020 Smokeless Tobacco: Never Alcohol Use Standard Drinks/Week Comments Yes 14 (1 standard drink = 0.6 oz pu re alcohol) Sex and Gender Information Value Date Recorded Sex Assigned at Female 11/25/2020 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 Needing to know if she has order orif has already had done anywhere so can f/u with results. LATE FITTER documented in this encounter Plan of Treatment Upcoming Encounters Date Type Department Care Team (Late st Contact Info) Description 03/15/2025 10:00 AM CDT Office Visit [facility] [address] [place] [phone] Vianey Llanes, WATER TRUCK DRIVER-MARKETING SALES CONSULTANT [address] [place], [place] [phone] 03/15/2025 10:30 AM CDT Clinical Support [facility] [address] [place] [phone] documented as of this encounter Visit Diagnoses Not on filedocumented in this encounter
--- OUTSIDE RECORDS SUMMARY | 2024-11-04 23:00 | XMS_ITS | Encounter Summary ---
Author Organization [facility] Address [address] [place] [address] Care Team Providers Care Cardroom Attendant Name Role Phone Unavailable Primary Care Provider Unavailabl e Reason for Visit * Reason Comments Bariatric Surgery Initial Assessment * Evaluate & Treat (Routine) - Closed Specialty Diagnoses / Procedures Referred By Contac t Referred To Contact Weight Management Diagnoses Obesity, unspecified Selfreferral, Patient [facility] [address] [place] [address] Referral ID Status Reason Start Date Expiration Date Visits Re quested Visits Authorized [id number] Closed 07/25/2020 07/25/2021 1 1 Encounter Details Date Type Department Care Team (Late st Contact Info) Description 08/13/2020 10:30 AM CDT Office Visit [facility] Weight Management Services [address] [place] [address] [place] [id number] [address] Pre-op evaluation (Primary Dx); Morbid obesity (HCC) Social History Tobacco Use Types Packs/Day Years Used Date Smoking Tobacco: Former Cigarettes Q uit: 06/2020 Smokeless Tobacco: Never Alcohol Use Standard Drinks/Week Comments Yes 14 (1 standard drink = 0.6 oz pu re alcohol) Sex and Gender Information Value Date Recorded Sex Assigned at Female 11/25/2020 1:10 PM SUPERVISOR TOY ASSEMBLY Gender Identity Female 11/25/2020 1:10 PM SUPERVISOR TOY ASSEMBLY Sexual Orientation Straight 02/02/2021 4: 18 PM CDT documented as of this encounter Last Filed Vital Signs Vital Sign Reading Time Taken Comments Blood Pressure 130/90 08/13/2020 10:00 AM CDT Pulse 65 08/13/2020 10:00 AM CDT Temperature 36.5 ??C (97.7 ??F) 08/13/2020 1 0:00 AM CDT Respiratory Rate 16 08/13/2020 10:0 0 AM CDT Oxygen Saturation 99% 08/13/2020 10: 00 AM CDT Inhaled Oxygen Concentration - - Weight 115.9 kg (255 lb 9.6 oz) 020 10:00 AM CDT Height 160 cm (5' 3 ) 08/13/2020 10:00 AM CDT Body Mass Index 45.28 08/13/2020 10:00 AM CDT documented in this encounter Progress Notes * Rehan Mendoza MD - 08/14/2020 11:[address] [facility] [place] [address] . . Date of encounter: 08/13/2020 Provider: Dr. Rehan Mendoza. Patient: Maria Del Carmen Ray CSN: [id number] Specialty: Bariatric Surgery Date of : 1975 Visit type: Bariatric Initial visit Maria Del Carmen Ray 44 year old female patient was referred by SANGEETHA Kumar for evaluation for Morbid Obesity and assessment for Bariatric Surgery. History of Present Illness: The patient states the onset of the weight gain began at childhood. The patient is gaining weight since then. The weight gain and associated problems are getting worse . Associated symptoms include knee and back pain. The patient has attempted physician directed and non physician directed weight loss strategies as described in the Diet history below and has failed to achieve durable weight loss. Due to weight gain patient started developing arthritis. 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 Weight Management Services at [place], [place]. The procedure requested is Laparoscopic Sleeve Gastrectomy. Weight History: Initial Weight: 255.6 lb. BMI 45.29 Date: 08/13/2020 Obesity History Years at current weight? 13 Years at 35 pounds overweight? 13 Years 100 pounds overweight? Age patient started to diet? 41 Maximum weight reached? 255 Most significant weight loss: Amount of weight loss 20lb Months weight loss sustained 2 months Method of weight loss phentermine Liberal body weight: 52.4 kg (115 lb 8.3 oz) Adjusted ideal body weight: 77.8 kg (171 lb 8.8 oz) Diet History: Diet History: Prescription Weight Loss [...] you have an unusual work schedule? no [place] Sleepiness Scale total points: 1 Past Medical History: No past medical history on file. Past Surgical History: Past Surgical History: Procedure Laterality Date ??? Appendectomy 03/1999 ??? Hysterectomy 12/2018 partial Family History: Family History Problem Relation Name Age of Onset ??? Hypertension Mother ??? Hypertension Father ??? CVA Father Social History: Social History Socioeconomic History ??? Marital status: [...] Tobacco Use ??? Smoking status: Former Smoker Last attempt to quit: 06/2020 Years since quittin.1 ??? Smokeless tobacco: Never Used Substance and [...] file Gets together: Not on file Attends jehovah's witness service: Not on file Active member of [...] Social History Narrative ??? Not on file Medications: No outpatient medications have been marked as taking for the 08/13/20 encounter (Office Visit) with Rehan Mendoza MD. (Not in a hospital admission) Allergy: Allergies Allergen Reactions ??? Amoxicillin Rash and Unknown Review of Systems: General ROS: negative Psychological ROS: negative Ophthalmic ROS: negative ENT ROS: negative Allergy and Immunology ROS: negative Hematological and Lymphatic ROS: negative Endocrine ROS: negative Breast ROS: negative Respiratory ROS: negative Cardiovascular ROS: negative Gastrointestinal ROS: positive for - heartburn Genito-Urinary ROS: negative Musculoskeletal ROS: positive for joint pain Neurological ROS: negative Dermatological ROS: negative Vital Signs: BP 130/90 Pulse 65 Temp 97.7 ??F (36.5 ??C) (Temporal) Resp 16 Ht 5' 3 (1.6 m) Wt 255 lb 9.6 oz (115.9 kg) SpO2 99% BMI 45.28 kg/m2 Weight: 255 lb 9.6 oz (115.9 kg) Height: 5' 3 (160 cm) Body mass index is 45.28 kg/m??. Physical Exam: Constitutional: Alert, awake and oriented without any apparent discomfort. Eyes: Anicteric. No subconjunctival hemorrhage. Neck Exam: Supple. Trachea midline. No thyromegaly. No cervical or supraclavicular lymphadenopathy. Respiratory: Lungs were clear to auscultation bilaterally. No rales, rhonchi. Cardiovascular: Regular rate and rhythm. No rub, murmur or gallop Abdomen: Abdomen was obese, soft, non tender, non distended. No palpable visceromegaly. No palpableventral hernias. Skin: [place] and moist. No ulcers, rashes, or lesions. Extremities: Well perfused. No gross joint deformity noted Neurological: Cranial nerves 2-12 were grossly intact. Psychiatric: The patient's mood and affect appeared to be appropriate Labs No results for input(s): WBC, RBC, HGB, HCT, PLTCOUNT in the last 43606 hours. No results for input(s): SODIUM, POTASSIUM, CO2, BUN, CREATININE in the last 85111 hours. Invalid input(s): CLORIDE No results for input(s): GLUCOSE in the last 68306 hours. No results for input(s): AST, ALT in the last 52466 hours. No results for input(s): LDL, HDL, TRIG, TSH in the last 14565 hours. No results for input(s): HGBA1C in the last 83793 hours. Some lab results will be in paper format so may be scanned in the EMR. Imaging studies No results found. Some Imaging studies results will be in paper format so may be scanned in the EMR. Assessment and Plan Morbid Obesity Patient was recommended to optimize pre op weight loss with liquid protein diet replacement therapy. All different dietary supplements were discussed. Patient was also recommended to optimize exercise and to be engaged in an exercise program. I will refer her to a dietitian for diet counseling and NExT program / an exercise log. Patient has a 6 months physician supervised diet requirement. GERD Complains of reflux symptoms occasionally. We'll plan for an EGD to rule out H. pylori and any anatomic abnormality. Anxiety Patient anxious about surgery and the course. Explained in detail the surgery. If on SSRI or anxiety medication, I will continue the same now and perioperatively. I will obtain a psychiatric evaluation for pre-operative clearance. Arthritis Due to being overweight and having extreme wear and tear of lower extremity joints patient is developing joint pain and arthritis. This should be alleviated after surgery and weight loss. Currently to continue with pain medication PRN. Smoking addiction She states that she stopped smoking recently in June 2020. Recommend her not to restart smoking. Explained to her the risk of development of complications with smoking after bariatric surgery. Willdo the necessary testing for insurance purposes before surgery. Consults and Test ordered: Dietitian consult for diet counseling Psychology/psychiatry consult for pre-operative clearance. Blood work to evaluate for any vitamin and mineral deficiency. EKG and Chest Xray. EGD. Follow up: Will see me/PA/ROLLER PRINTER in 1 month. she meets the criteria as set by the National Hurricane of Health that recommends bariatric surgeryon people with a body mass index greater than 40 kg/ms or with a body mass index greater than 35 kg/msq with co-morbid conditions. I have discussed with her at great length the definition of morbid obesity and the indications for surgery. I have explained to her that the surgery is not a cure. Thisis not a cosmetic surgery and she will still require active participation with exercise, diet, and having very close follow-up with a certified court/medical interpreter and me. In addition she must attend three support groupmeetings prior to surgery, and continue to attend post-operatively, in order to [...] occurs within the first two years post-operatively. I have pointed out the comparison to typical lap band weight loss of 30-65 % excess body weight loss. After that, her weight may plateau and [...] have discussed at great length with the complication of all surgeries such as bleeding, hematoma,seroma, poor wound healing, hernia formation, further surgeries, further surgeries if too much weight loss occurs, injury to liver, spleen, stomach pancreatic injury, kidney injury, diaphragmatic andheart injury, bowel injury, vessel injury and nerve injury. In discussing complications of surgeries, I placed special emphasis on esophagus gastric/bowel perforation leading to possible sepsis and , and deep vein thrombosis leading to possible pulmonary embolism and . With the gastric bypass, there are the additional potential risks such as anastomotic leak, gastric pouch necrosis, total gastrectomy, intestinal reconstruction, internal hernias, and gastrostomy tube. All surgeries may be performed laparoscopically, however [...] surgeries she will have a very small pouch, which will limit the quantity of food that she will be able to eatand the foods she needs to avoid in order to prevent discomfort or failure to lose weight. I have informed her that she will have to take at a minimum multivitamins and possible other supplementation. This is the case with any of the surgeries we discussed. However, with the gastric banding surgery, because of the Restrictive component/ foreign hardware, after the surgery she will have to have very close follow-up and surveillance where I will see her every month for the first four months and then at least annually for life. With those office visits, [...] different types of vitamin and mineral deficiencies. All of these surgeries are bariatric surgeries; therefore the pre-surgery work up may be similar for any of the procedures. Each surgery requires a lot of teaching and education. I have discussed this with her at great length and have provided a great deal of information to the patient but she will have additional education provided by the director of group counseling program and certified court/medical interpreter at [facility]. Because of the significant changes in her eating habits she will have to see a certified court/medical interpreter prior to and following surgery. I have informed her that the diet after surgery is a gradual progression from clear liquids to solid foods over a period of time. Bariatric surgery can affect her psychologically and emotionally, therefore she will have to see a psychiatrist before the surgery and may require post- operative therapy as well. she will have to make sure that she is willing to make the commitment for life and be an active participant. Laboratory studies including CMP, CBC, TSH, Iron, Ferritin, Folate, Vitamin B1, Vitamin B12, Vitamin D and an urinalysis will be obtained prior to surgery. Based upon history and exam findings, a pulmonary function test, stress test and sleep study may be required. Given the patient's condition and for evaluation of the stomach, an upper endoscopy will be completed prior to the bariatric procedure. I have discussed and given a lot of education to the patient. I have informed her that the surgery is not a cure and that this is not a cosmetic surgery. Any of the surgeries discussed can significantly improve her health as well as improve or resolve her comorbid medical conditions. By assigning my name below, I, Declan Sumurali, attest that this documentation has been prepared underthe direction of Dr. Rehan Mendoza.08/14/2020 IRehan MD personally performed the services described in this documentation. All medical record entries made by the scribe were at my direction. I have reviewed the chart and agree thatthe record reflects my personal performance and is accurate and complete. CC: SANGEETHA Kumar documented in this encounter Plan of Treatment Upcoming Encounters Date Type Department Care Team (Late st Contact Info) Description 03/15/2025 10:00 AM CDT Office Visit [facility] Weight Management Services [address] [place] [phone] Vianey Llanes APRN-SOURCING ENGINEER [address] [place] [address] 03/15/2025 10:30 AM CDT Clinical Support [facility] Services [address] [place] [phone] documented as of this encounter Visit Diagnoses Diagnosis Pre-op evaluation- Primary Preoperative examination, unspecified Morbid obesity (HCC) Morbid obesity documented in this encounter
--- OUTSIDE RECORDS SUMMARY | 2024-11-04 23:00 | XMS_ITS | Encounter Summary ---
Author Organization [facility] Address [address] [place] [address] Care Team Providers Care E Merchant Name Role Phone Unavailable Primary Care Provider Unavailabl e Encounter Details Date Type Department Care Team (Late Contact Info) Description 01/29/[address] [facility] Weight Management Services [address] [place] [address] Tram Pemberton, ESTHETICIAN/SKIN THERAPIST-OPTICAL DESIGNER [address] [place], [place] [id number] Morbid obesity (HCC) Social History Tobacco Use Types Packs/Day Years Used Date Smoking Tobacco: Former Cigarettes Q uit: 06/2020 Smokeless Tobacco: Never Alcohol Use Standard Drinks/Week Comments Yes 0 (1 standard drink = 0.6 oz pur e alcohol) OCC. 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 No / Unsure 01/30/2021 6:27 AM CDT documented as of this encounter Plan of Treatment Upcoming Encounters Date Type Department Care Team (Late Contact Info) Description 03/15/2025 10:00 AM CDT Office Visit [facility] Weight Management Services [address] [place] [address] Vianey Llanes, ESTHETICIAN/SKIN THERAPIST-OPTICAL DESIGNER [address] [place] [address] 03/15/2025 10:30 AM CDT Clinical Support [facility] [address] [place] [address] documented as of this encounter Visit Diagnoses Diagnosis Morbid obesity (HCC) Morbid obesity documented in this encounter Additional Health Concerns Infection Onset Date Last Indicated Resolved Time COVID-19 Under Investigation 01/30/2021 01/30/2021 01/31/2021 8:43 AM CDT documented as of this encounter
--- OUTSIDE RECORDS SUMMARY | 2024-11-04 23:00 | XMS_ITS | Encounter Summary ---
Author Organization [facility] Address [address] [place] [address] Care Team Providers Care Stone Splitter Name Role Phone Unavailable Primary Care Provider Unavailabl e Reason for Visit * Reason Onset Date Comments Question 02/16/2021 Encounter Details Date Type Department Care Team (Late st Contact Info) Description 02/16/2021 Telephone [facility] Weight Management Services [address] [place] [phone] Rehan Mendoza MD [address] [place] [phone] Question Social History Tobacco Use Types Packs/Day Years Used Date Smoking Tobacco: Former Cigarettes Q uit: 06/2020 Smokeless Tobacco: Never Alcohol Use Standard Drinks/Week Comments Yes 14 (1 standard drink = 0.6 oz pu re alcohol) Sex and Gender Information Value Date Recorded Sex Assigned at Female 11/25/2020 1:10 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 * Telephone Encounter - Cris Bundy LPN - 02/18/2021 10:52 AM CDT Patient states all is good with Delivery Merchandiser and they will be sending us a new clearance. * Telephone Encounter - Cris Bundy LPN - 02/18/2021 10:03 AM CDT Patient has appt with Delivery Merchandiser today and she will ask for a new clearance to be sent. * Telephone Encounter - Cris Bundy LPN - 02/17/2021 11:43 AM CDT Images from the original note were not included. Rehan Mendoza MD You 1 hour ago (10:29 AM) That is good with me. Message text * Telephone Encounter - Cris Bundy LPN - 02/16/2021 12:59 PM CDT Patient called to report she has been having some left sided chest discomfort and is going to call her Delivery Merchandiser who gave her clearance for surgery to see if they want to do something. She is scheduled for her EGD on 02/23/21 and does not want to have to reschedule her procedure. documented in this encounter Plan of Treatment Upcoming Encounters Date Type Department Care Team (Late st Contact Info) Description 03/15/2025 10:00 AM CDT Office Visit [facility] Weight Management Services [address] [place] [phone] Vianey Llanes, JUKE BOX SERVICER-SUPERSONIC ENGINEER [address] [place] [address] 03/15/2025 10:30 AM CDT Clinical Support [facility] [address] [place] [address] documented as of this encounter Visit Diagnoses Not on filedocumented in this encounter
--- OUTSIDE RECORDS SUMMARY | 2024-11-04 23:00 | XMS_ITS | Encounter Summary ---
Author Organization [facility] Address [address] [place] [address] Care Team Providers Care Platen Press Operator Name Role Phone Unavailable Primary Care Provider Unavailabl e Reason for Visit * Reason Comments Bariatric Surgery Follow-up Encounter Details Date Type Department Care Team (Late st Contact Info) Description 10/21/2020 10:00 AM CUSTOMER EXPERT Video Visit [facility] Services [address] [place] [phone] Rehan Mendoza MD [address] [place] [phone] Tram Pemberton, METAL SPRAYER PRODUCTION-BANANA EXPERT [address] [address] Morbid obesity (HCC) ; Body mass index [...] Sex Assigned at Female 11/25/2020 1:10 PM CUSTOMER EXPERT Gender Identity Female 11/25/2020 1:10 PM CUSTOMER EXPERT Sexual Orientation Straight 02/02/2021 4: 18 PM CDT documented as of this encounter Last Filed Vital Signs Vital Sign Reading Time Taken Comments Blood Pressure - - Pulse - - Temperature - - Respiratory Rate - - Oxygen Saturation - - Inhaled Oxygen Concentration - - Weight 111.1 kg (245 lb) 10/21/2020 9:49 AM CUSTOMER EXPERT per pt Height 160 cm (5' 3 ) 10/21/2020 9:49 AM CUSTOMER EXPERT Body Mass Index 43.4 10/21/2020 9:49 AM CUSTOMER EXPERT documented in this encounter Progress Notes * Tram Pemberton APRN-CNP - 10/21/2020 8:08 AM CST Images from the original note were not included. [facility] Services at [place] [phone] . . Date of encounter: 10/21/2020 Provider: SANGEETHA Rai Patient: Maria Del Carmen Ray CSN: [id number] Specialty: Bariatric Surgery Date of : 1975 Today's visit was conducted virtually due to COVID-19 countermeasures. The patient has given verbalconsent to have today's visit conducted by this same means with treatment provided remotely. The patient verbally consents to the billing and collection practices of [facility]. Visit type: Bariatrics Virtual Pre-operative follow up Maria Del Carmen Ray 45 year old female was referred by SANGEETHA Kumar for Bariatrics pre-opfollow up via telemedicine encounter regarding: . Bariatric Preop HPI her last encounter with a provider with this clinic was on 09/17/2020 The procedure requested is Laparoscopic Sleeve Gastrectomy. Patient is attending support group meeting. The patient has been participating in an online supportgroup. No of support group meeting attended 3/ Patient is taking 30-60 grams of proteins supplements daily. Patient is taking 64 oz of fluid per day. Doing 30 minutes of exercise daily. Weight change as [...] Total Wt Loss in lb: 10.6 lb Obesity History Years at current weight? [...] you have an unusual work schedule? no [place] Sleepiness Scale total points: 1 No past [...] Former Smoker Quit date: 06/2020 Years since quittin.3 ??? Smokeless tobacco: Never Used Substance and Sexual Activity ??? Alcohol use: Yes Alcohol/week: 14.0 standard drinks Types: 14 Glasses of wine per week Comment: occ ??? Drug use: Never ??? Sexual activity: Not on file Lifestyle ??? Physical activity Days per week: Not on file Minutes per session: Not on file ??? Stress: Not on file Relationships ??? Social connections Talks on phone: Not on file Gets together: Not on file Attends hinduism service: Not on file Active member of [...] Outpatient Medications Marked as Taking for the 10/21/20 encounter (Video Visit) with Trinh Pemberton APRN-CNP Medication Sig ??? vitamin D, ergocalciferol, (DRISDOL) 1.25 MG (45361 UT) capsule Take 1 capsule by mouth every 7days Reasons: Vitamin D Deficiency (Not in a hospital admission) Allergies Allergen Reactions ??? Amoxicillin Rash and Unknown Objective: Vital Signs: Ht 5' 3 (1.6 m) Wt 245 lb (111.1 kg) BMI 43.4 kg/m2 Weight: 245 lb (111.1 kg)(per pt ) Height: 5' 3 (160 cm) Body mass index is 43.4 kg/m??. Review of Systems Constitutional: Negative for chills and fever. Respiratory: Negative for cough and shortness of breath. Cardiovascular: Negative for chest pain, palpitations and leg swelling. Gastrointestinal: Negative for abdominal pain, constipation, diarrhea, heartburn, nausea and vomiting. Psychiatric/Behavioral: Negative for depression. The patient is not nervous/anxious. Constitutional: Alert, awake and oriented without any apparent discomfort. Psychiatric: The patient's mood and affect appeared to be appropriate Labs Some lab results will be in paper format so may be scanned in the EMR. Imaging studies [id number] Normal sinus rhythm Inferior t wave abnormality When compared with ECG of 05-OCT-2014 16:14, Nonspecific T wave abnormality is now seen in lead aVF ?? CHEST XRAY: 2020 CARDIA EVALUATION: Dr Jose Umaña Assessment and Plan Assessment: (E66.01) Morbid obesity (primary encounter diagnosis) (Z68.41) Body mass index (BMI) of 40.0-44.9 in adult (K21.9) Gastroesophageal reflux disease, unspecified whether esophagitis present (F41.9) Anxiety (M25.50) Arthralgia, unspecified joint (Z87.891) History of smoking (E55.9) Vitamin D deficiency (R94.31) Nonspecific abnormal electrocardiogram (ECG) (EKG) Morbid Obesity Weight change as in weight history. Total Weight lost since start of the program: 10.6 lbs. she hadvisited with the Dietitian since the last visit and she is adjusting the diet. she started on an exercise program is helping her weight loss plan. Continue on liquid protein diet replacement therapy. Patient has a 6 months primary care physician supervised diet requirement. Has completed 3/6 months. ?? Will plan for Laparoscopic Sleeve Gastrectomy provided all the tests are done satisfactorily, once the insurance is approved and all the follow-up clearances are done. ?? BMI of 43.40 ?? GERD Complains of reflux symptoms occasionally. We'll plan for an EGD to rule out H. pylori and any anatomic abnormality. ?? Anxiety Patient anxious about surgery and the course. Explained in detail the surgery. If on SSRI or anxiety medication, I will continue the same now and perioperatively. I will obtain a psychiatric evaluation for pre-operative clearance. ?? Arthritis Due to being overweight and having extreme wear and tear of lower extremity joints patient is developing joint pain and arthritis. This should be alleviated after surgery and weight loss. Currently to continue with pain medication PRN. ? History of Smoking addiction?? She??states that??she??stopped smoking in June 2020.?Recommend her not to restart smoking. ??Explained to her the risk of development of complications with smoking after bariatric surgery. ??Shewill need 2 negative nicotine screens prior to bariatric surgery. ? Vitamin D Deficiency She is tolerating repletion per protocol Abnormal Finding of EKG Preoperative EKG performed on 2020 revealed finding of Normal sinus rhythm Inferior t wave abnormality When compared with ECG of 05-OCT-2014 16:14, Nonspecific T wave abnormality is now seen in lead aVF ?? Consults and Test ordered:?? Dietitian consult for diet counseling Psychology/psychiatry consult for pre-operative clearance. EGD. Nicotine Screen x 2 Cardiac Evaluation and clearance ?? 3/ 6 month physician supervised diet. Follow up: Will see me in 1 month. Patient location: Home This encounter was performed using: audio Reason for not using video for visit: technical problems in using available video technology Time spent with patient/proxy: 11 minutes (between 10-20) The plan was reviewed with the patient and the patient confirmed understanding of the plan and all follow-up steps. Patient is agreeable with this plan after shared decision making with patient. All aspects of patient's medical history were reviewed and updated as documented in Epic SANGEETHA Rai CC: SANGEETHA Kumar OMER EXPERT documented in this encounter Plan of Treatment Upcoming Encounters Date Type Department Care Team (Late st Contact Info) Description 03/15/2025 10:00 AM CDT Office Visit [facility] [address] [place] [phone] Vianey Llanes APRN-BANANA EXPERT [address] [place] [address] 03/15/2025 10:30 AM CDT Clinical Support [facility] [address] [place] [phone] documented as of this encounter Visit Diagnoses [...]
--- OUTSIDE RECORDS SUMMARY | 2024-11-04 23:00 | XMS_ITS | Encounter Summary ---
Author Organization [facility] Address [address] [place] [address] Care Team Providers Care Crisis Intervention Counselor Name Role Phone Unavailable Primary Care Provider Unavailabl e Encounter Details Date Type Department Care Team (Latest Contact Info) Description 01/30/2021 Travel Social History Tobacco Use Types Packs/Day Years Used Date Smoking Tobacco: Former Cigarettes Q uit: 06/2020 Smokeless Tobacco: Never Alcohol Use Standard Drinks/Week Comments Yes 0 (1 standard drink = 0.6 oz pur e alcohol) OCC. Sex and Gender Information Value Date Recorded Sex Assigned at Female 11/25/2020 1:10 PM MAINFRAME ANALYST Gender Identity Female 11/25/2020 1:10 PM MAINFRAME ANALYST Sexual Orientation Straight 02/02/2021 4: 18 PM [...] Description 03/15/2025 10:00 AM CDT Office Visit [facility] Management Services [address] [place] [phone] Vianey Llanes, GARAGE LABORER-GALLERY ASSISTANT [address], [place] [phone] 03/15/2025 10:30 AM CDT Clinical Support [facility] Services [address] [place] [phone] documented as of this encounter Visit Diagnoses Not on filedocumented in this encounter Additional Health Concerns Infection Onset Date Last Indicated Resolved Time COVID-19 Under Investigation 01/30/2021 01/30/2021 01/31/2021 8:43 AM CDT documented as of this encounter
--- OUTSIDE RECORDS SUMMARY | 2024-11-04 23:00 | XMS_ITS | Encounter Summary ---
Author Organization [facility] Address [address] [place] [address] Care Team Providers Care Vice Chair Name Role Phone Unavailable Primary Care Provider Unavailabl e Reason for Visit * Reason Onset Date Comments General 02/05/2021 Encounter Details Date Type Department Care Team (Late st Contact Info) Description 02/05/2021 Telephone [facility] Services [address] [place] [phone] Rehan Mendoza MD [address] [place] [phone] General Social History Tobacco Use Types Packs/Day Years Used Date Smoking Tobacco: Former Cigarettes Q uit: 06/2020 Smokeless Tobacco: Never Alcohol Use Standard Drinks/Week Comments Yes 14 (1 standard drink = 0.6 oz pu re alcohol) Sex and Gender Information Value Date Recorded Sex Assigned at Female 11/25/2020 1:10 PM INDUSTRIAL ROOF PLUMBER Gender Identity Female 11/25/2020 1:10 PM INDUSTRIAL ROOF PLUMBER Sexual Orientation Straight 02/02/2021 4: 18 PM [...] Telephone Encounter - Annika Hurst - 02/05/2021 12:50 PM CDT Spoke with PT and resscheduled Dieteitian appt. Email to be sent documented in this encounter Plan of Treatment Upcoming Encounters Date Type Department Care Team (Late st Contact Info) Description 03/15/2025 10:00 AM CDT Office Visit [facility] [address] [place] [phone] Vianey Llanes, DIVIDER OPERATOR-RN ORTHOPAEDIC [address], [place] [address] 03/15/2025 10:30 AM CDT Clinical Support [facility] [address] [place] [phone] documented as of this encounter Visit Diagnoses Not on filedocumented in this encounter
--- OUTSIDE RECORDS SUMMARY | 2024-11-04 23:00 | XMS_ITS | Encounter Summary ---
Author Organization [facility] Address [address] [facility] [place] [address] Care Team Providers Care Crane Ladle Person Name Role Phone Unavailable Primary Care Provider Unavailabl e Reason for Referral * Consultation (Routine) - Closed Specialty Diagnoses / Procedures Referred By Veronica t Referred To Contact Nutrition Services Diagnoses Body mass index (BMI) of 40.0-44.9 in adult (HCC) Morbid obesity (HCC) [place] [id number] [place] [phone] Referral ID Status Reason Start Date Expiration Date V isits Requested Visits Authorized [id number] Closed Specialty Services Required 11/25/2020 11/25/2021 5 5 P MOLDER Encounter Details Date Type Department Care Team (Late st Contact Info) Description 11/25/2020 2:00 PM SWEEP MOLDER Video Visit [facility] Services [address] [place] [phone] [place] [address] [phone] Body mass index (BMI) of 40.0-44.9 [...] Sex Assigned at Female 11/25/2020 1:10 PM SWEEP MOLDER Gender Identity Female 11/25/2020 1:10 PM SWEEP MOLDER Sexual Orientation Straight 02/02/2021 4: 18 PM CDT documented as of this encounter Last Filed Vital Signs Vital Sign Reading Time Taken Comments Blood Pressure - - Pulse - - Temperature - - Respiratory Rate - - Oxygen Saturation - - Inhaled Oxygen Concentration - - Weight 109.8 kg (242 lb) 11/25/2020 1:12 PM SWEEP MOLDER Height 160 cm (5' 3 ) 11/25/2020 1:12 PM SWEEP MOLDER Body Mass Index 42.87 11/25/2020 1:12 PM SWEEP MOLDER documented in this encounter Progress Notes * Sasha Pineda, BARBY/SIN - 11/25/2020 2:00 PM CST MEDICAL NUTRITION THERAPY Weight Management Services Bariatric Surgery Follow-Up Session Number: Session IV Patient Verification & Telemedicine Based Consent I [...] to the billing and collection practices of [facility]. Patient location: work - private area This encounter was performed using: audio and video Total time spent on visit on date of encounter is: 11 minutes Session Date: 11/25/20 Patient: Maria Del Carmen Ray Date of : 1975 (45 year old) PCP Physician: Rose Marie Norton APRN-BLAKE Referring Physician: Kelly NUTRITION ASSESSMENT Primary Diagnoses/Co-morbidities: Morbid Obesity Secondary Diagnoses/Co-morbidities: (no PMH) Have you seen a dietitian?: Yes Pertinent Labs: no new to review Pertinent Medications: reviewed Current V/M Supplements: n/a - will restart Vit D2 weekly Eating History Are you following [...] the meals?: Self Exercise Type of exercise?: Walking;Biking(gym membership) How many times do you exercise each week?: 3 How many minutes of exercise each time?: 30 Minutes Weight History Height: 5' 3 (160 cm) Initial Program Weight: 255.6#?BMI: 45.28 Current Weight: 242 lb (109.8 kg) Weight Method (Utilize Scales): Stated BMI (Calculated): 42.88 Has your weight changed since last visit?: Loss #(3#) Total Program Weight Loss: 13.6# Pt seen for nutrition f/u. Pt is planning VSG. Pt's weight is down 3# since last visit, down 13.6# since beginning program. Pt reports using 1 protein shake daily as meal. Pt reports going to gym 2-4x/week depending on schedule. Pt reports focusing on portions, protein and vegetables. Pt is drinking adequate fluids daily. Reviewed food recall and vitamins. 24 Hour Food Recall (Current) Breakfast - protein shake Lunch - Spinach salad, rivers, egg, Caesar dressing-1.5-2 c Dinner - 5 oz baked chicken and broccoli-1 c Snacks - none Beverages - water, wine - 2 glasses NUTRITION DIAGNOSIS Diagnosis: Overweight/obesity Related to: (hx of excessive caloric intake) As evidenced by: BMI of 42.88 and pt food recall. NUTRITION INTERVENTION Interventions: Motivational interviewing;Goal setting;Self-monitoring;Problem solving;Recommended modifications;Collaboration with other providers Reviewed healthy balance diet for weight loss usingprotein shakes. Reviewed the foster bariatric diet principles. Further instruction provided for phasesof bariatric diet. Reinforced behavior changes for bariatric diet such as no straws and smaller plate. Explained importance of continued bariatric vitamin/mineral and protein supplementation. Pt v/u. Pt will use 1-2 protein shakes/day as meals. Reviewed bariatric plate model with portions and reinforced choosing lean proteins first, then non-starchy vegetables and to limit CHOS to <1/2 c/meal.Reviewed mindful eating techniques and reinforced limiting snacking to 1-2x/week. Encouraged exercise as able. Pt v/u and agreeable to f/u in 1 month per request. External Barriers to Change: none NUTRITION MONITORING/EVALUATION Nutrient Needs: Goals: Nutrition Goal #1: 1-2 protein shakes/day as meals Nutrition Goal #2: Reduce portions by 1/3Nutrition Goal #3: 150+ minutes physical activity weekly Monitor/Evaluation: Monitoring and evaluation: Fluid/beverage intake;Food intake;Protein intake;Carbohydrate intake;Mineral/element intake;Food and nutrition knowledge/skills;Beliefs and attitudes;Adherence;Physical activity;Weight change;Body Mass index RD contact information provided. Pt encouraged to call RD with questions and/or concerns. Evaluation of Overall Compliance Potential: Comprehension: Often Demonstrated Receptivity: Often Demonstrated Adherence: Often Demonstrated Session Information Session Date: 11/25/20 Session beginning time: 1352 Session ending time: 1403 Session total minutes: 11 Minutes Teaching Method: Explanation;Demonstration;Teach Back;Video Next visit: (1 month f/u) Total MNT minutes this calendar year: Nutritional Review ?? Cleared, additional RD visits required pre-op ___ ?? Cleared, no additional RD visits required pre-op _X__ Will see pt at pre- surgery day, then per post op protocol. ?? Not cleared, additional RD visit(s) required pre-op ___ ?? Continue with post op RD visits per protocol ___ Sasha Pineda RD/SIN P MOLDER documented in this encounter Plan of Treatment Upcoming Encounters Date Type Department Care Team (Late st Contact Info) Description 03/15/2025 10:00 AM CDT Office Visit [facility] [address] [place] [phone] Vianey Llanes, [employer] TEACHER [address] [place], [place] [phone] 03/15/2025 10:30 AM CDT Clinical Support [facility] [address] [place] [phone] Scheduled Referrals Name Type Priority Associated Diagnoses Order Schedule MEDICAL NUTRITION THERAPY REFERRAL Outpatient Referral Routine Body mass index (BMI) of 40.0-44.9 in adult (HCC) Morbid obesity (HCC) 4 Occurrences starting 11/25/2020 until 11/21/2021 documented as of this encounter Visit Diagnoses Diagnosis Body mass index (BMI) of 40.0-44.9 in adult (HCC)- Primary Body Mass Index 40.0-44.9, adult Morbid obesity (HCC) Morbid obesity documented in this encounter
--- OUTSIDE RECORDS SUMMARY | 2024-11-04 23:00 | XMS_ITS | Encounter Summary ---
Author Organization [facility] Address [address] [place] [address] Care Team Providers Care Operations Management Professionals Name Role Phone Unavailable Primary Care Provider Unavailabl e Encounter Details Date Type Department Care Team (Late st Contact Info) Description 03/04/2021 9:30 AM CDT Video Visit [facility] Management Services [address] [place] [phone] [place] [address] [phone] MEDICATION THERAPY MANAGEMENT Social History Tobacco Use Types Packs/Day Years Used Date Smoking Tobacco: Former Cigarettes Q uit: 06/2020 Smokeless Tobacco: Never Alcohol Use Standard Drinks/Week Comments Not Currently 14 (1 standard drink = 0.6 oz pu re alcohol) Sex and Gender Information Value Date Recorded Sex Assigned at Female 11/25/2020 1:10 PM LEADITE WORKER Gender Identity Female 11/25/2020 1:10 PM LEADITE WORKER Sexual Orientation Straight 02/02/2021 4: 18 [...] as of this encounter Progress Notes * Mohan Velez, PharmD - 03/04/2021 9:57 AM CDT Rx Note on Behalf of Weight Loss Management Subjective: Consulted on 45 year old y.o. female to review medications prior to next Tuesday's sleeve gastrectomy. Objective: Current Outpatient Medications on File Prior to Visit Medication Sig Dispense Refill ??? acetaminophen (TYLENOL) [...] 24hrs. 12 tablet 0 ??? Probiotic Product (NetScientific) capsule Take 1 (one) capsule by mouth [...] ??? vitamin D, ergocalciferol, (DRISDOL) 1.25 MG (17732 UT) capsule Take 1 capsule by mouth every 7days Reasons: Vitamin D Deficiency 4 capsule 3 No current facility-administered medications on file prior to visit. Assessment and Plan: Medications: ?? Current Medications: Pt seen during COVID pandemic. Interview conducted by telephone. Went through list in Apruve and pt acknowledged that it was complete and accurate. Removed duplicate omeprazole pt switching to 40mg. ?? Other than MVI which can be halved, none of patients medications are larger than a M&M so shouldn't be an issue with size ?? None of patients medications are extended release. ?? None of patients medications are enteric coated ?? All meds were reviewed via pubmed with mesh terms of gastric sleeve/gastrectomy and bariatric along with generic medication name and no issues were found. ?? Periop Medications ?? Pt states no issues filling any of their periop meds ?? Discussed rationale of all meds. Discussed importance of omeprazole. Explained not to open capsule but if does to drink with apple juice. Pt to take omeprazole the morning of surgery. ?? Pt states gall bladder intact and appropriately prescribed ursodiol. ?? Pt stated possibly a discrepancy with pain med. Was going to check bottle when home and call office if not correct. ?? Future Medications ?? Educated pt to avoid meds larger than an M&M and if they are to ask the pharmacist if they can be crushed or opened ?? Educated pt to watch sugar content of liquid meds and to utilize diabetic formulations when available. ?? Educated pt to avoid enteric coated or sustained/extended/timed release medications due to variable effects on the release mechanism with altered physiology post op. ?? Educated pt to avoid gummy formulation medications especially post op vitamins. ?? Educated pt that NSAIDS (other than aspirin for cardiac benefit) are not recommended post surgery in bariatric patients. ?? Handout sent to patient at e-mail: [email or web address] Mohan Velez PharmD 03/04/2021 9:57 AM documented in this encounter Plan of Treatment Upcoming Encounters Date Type Department Care Team (Late st Contact Info) Description 03/15/2025 10:00 AM CDT Office Visit [facility] Management Services [address] [place] [phone] Vianey Llanes, SECONDARY TEACHER-SERVICE DIRECTOR [address] [place], [place] [address] 03/15/2025 10:30 AM CDT Clinical Support [facility] Weight Management Services [address] [place] [phone] documented as of this encounter Visit Diagnoses Diagnosis MEDICATION THERAPY MANAGEMENT- Primary MEDICATION THERAPY MANAGEMENT documented in this encounter
--- OUTSIDE RECORDS SUMMARY | 2024-11-04 23:00 | XMS_ITS | Encounter Summary ---
Author Organization [facility] Address [address] [place] [address] Care Team Providers Care Platen Press Operator Apprentice Name Role Phone Unavailable Primary Care Provider Unavailabl e Encounter Details Date Type Department Care Team (Late st Contact Info) Description 10/21/2020 9:00 AM MICROSTRATEGY BI DEVELOPER Video Visit [facility] Weight Management Services [address] [place] [address] [place] [id number] [address] Morbid obesity (HCC) Social History Tobacco Use Types Packs/Day Years Used Date Smoking Tobacco: Former Cigarettes Q uit: 06/2020 Smokeless Tobacco: Never Alcohol Use Standard Drinks/Week Comments Yes 14 (1 standard drink = 0.6 oz pu re alcohol) occ Sex and Gender Information Value Date Recorded Sex Assigned at Female 11/25/2020 1:10 PM MICROSTRATEGY BI DEVELOPER Gender Identity Female 11/25/2020 1:10 PM MICROSTRATEGY BI DEVELOPER Sexual Orientation Straight 02/02/2021 4: 18 PM CDT documented as of this encounter Last Filed Vital Signs Vital Sign Reading Time Taken Comments Blood Pressure - - Pulse - - Temperature - - Respiratory Rate - - Oxygen Saturation - - Inhaled Oxygen Concentration - - Weight 111.1 kg (245 lb) 10/21/2020 8:00 AM MICROSTRATEGY BI DEVELOPER per pt report Height 160 cm (5' 3 ) 10/21/2020 8:00 AM MICROSTRATEGY BI DEVELOPER Body Mass Index 43.4 10/21/2020 8:00 AM MICROSTRATEGY BI DEVELOPER documented in this encounter Progress Notes * Le Carvajal, RD/LD - 10/21/2020 9:00 AM CST MEDICAL NUTRITION THERAPY Weight Management Services Bariatric Surgery Follow-Up Session Number: Session III Patient Verification & Telemedicine Based Consent I [...] to the billing and collection practices of [facility]. Patient location: Home This encounter was performed using: audio and video Total time spent on visit on date of encounter is: 9 minutes Session Date: 10/21/20 Patient: Maria Del Carmen Ray Date of : 1975 (45 year old) PCP Physician: Rose Marie Norton APRN-BLAKE Referring Physician: Kelly NUTRITION ASSESSMENT Primary Diagnoses/Co-morbidities: Morbid Obesity Secondary Diagnoses/Co-morbidities: (none on file) Have you seen a dietitian?: Yes Pertinent Labs: no new to review Pertinent Medications: reviewed Current V/M Supplements: none Eating History Are you following a special [...] the meals?: Self Exercise Type of exercise?: Aerobic Machine How many times do you exercise each week?: 3 How many minutes of exercise each time?: 20 Minutes Weight History Height: 5' 3 (160 cm) Initial Program Weight: 255.6#?BMI: 45.28 Current Weight: 245 lb (111.1 kg)(per pt report ) Weight Method (Utilize Scales): Standing BMI (Calculated): 43.41 Has your weight changed since last visit?: Loss #(4#) Total Program Weight Loss: 10.6# Pt seen for nutrition f/u. Pt is planning VSG. Pt's weight is down 4# since last visit, down 10.6# since beginning program. Pt reports drinking 1-2 shakes a day as meals. Pt reports has been reducingportions. Pt reports no snacking. Pt reports drinking 1/2 gallon plain water daily. Pt reports occasionally walking on the treadmill for exercise, and plans to go to the gym when able. Reviewed food recall. 24 Hour Food Recall Breakfast - shake- 1 scoop body fortress powder with water Lunch - Meat, green vegetable Dinner - shake as above Snacks - none Beverages - 1/2 gallon water NUTRITION DIAGNOSIS Diagnosis: Overweight/obesity Related to: (hx of excessive calorie intake) As evidenced by: BMI 43.40. NUTRITION INTERVENTION Interventions: Motivational interviewing;Goal setting;Collaboration with other providers Reviewed healthy balance diet for weight loss using protein shakes. Reviewed the foster bariatric dietprinciples. Further instruction provided for phases of bariatric diet. Reinforced behavior changes for bariatric diet such as no straws and smaller plate. Explained importance of continued bariatric vitamin/mineral and protein supplementation. Pt v/u. Pt will continue to drink 1-2 shakes daily as meals. Reviewed mixing techniques with pt. Reviewed the plate model and portion sizes. Encouraged pt stay mindful of snacking. Encouraged 64+ oz sugar-free fluids daily. Encouraged pt increase exercise to 150+ minutes weekly as able. Will f/u in one month. External Barriers to Change: none NUTRITION MONITORING/EVALUATION Nutrient Needs: Goals: Nutrition Goal #1: 1-2 shakes a day as meals Nutrition Goal #2: Keep portions within the plate model Nutrition Goal #3: 150+ minutes exercise weekly Monitor/Evaluation: Monitoring and evaluation: Fluid/beverage intake;Food intake;Beliefs and attitudes;Food and nutrition knowledge/skills;Adherence;Physical activity;Weight change;Body Mass index RD contact information provided. Pt encouraged to call RD with questions and/or concerns. Evaluation of Overall Compliance Potential: Comprehension: Often Demonstrated Receptivity: Often Demonstrated Adherence: Often Demonstrated Session Information Session Date: 10/21/20 Session Beginning Time: 851 Session ending time: 900 Session total minutes: 9 Minutes Teaching Method: Explanation;Demonstration;Teach Back Next visit: (1 month f/u) Total MNT minutes this calendar year: 60/240 Nutritional Review ?? Cleared, additional RD visits required pre-op ()___ ?? Cleared, no additional RD visits required pre-op ___ ?? Not cleared, additional RD visit(s) required pre-op _X__ ?? Continue with post op RD visits per protocol ___ Le Carvajal RD/LD OSTRATEGY BI DEVELOPER documented in this encounter Plan of Treatment Upcoming Encounters Date Type Department Care Team (Late st Contact Info) Description 03/15/2025 10:00 AM CDT Office Visit [facility] Health Weight Management Services [address] [place] [phone] Vianey Llanes, CONTROL SUPERVISOR-BELT WEAVER [address] [place] [address] 03/15/2025 10:30 AM CDT Clinical Support [facility] Health Weight Management Services [address] [place] [address] documented as of this encounter Visit Diagnoses Diagnosis Morbid obesity (HCC)- Primary Morbid obesity documented in this encounter
--- OUTSIDE RECORDS SUMMARY | 2024-11-04 23:00 | XMS_ITS | Encounter Summary ---
Author Organization [facility] Address [address] [place] [address] Care Team Providers Care Steam Conditioner Filling Name Role Phone Unavailable Primary Care Provider Unavailabl e Reason for Visit * Auth/Cert Specialty Diagnoses / Procedures Referred By Veronica bonner Referred To Contact Diagnoses Gastroesophageal reflux disease, unspecified whether esophagitis present Gastroesophageal reflux disease, unspecified whether esophagitis present [K21.9] Procedures ESOPHAGOGASTRODUODENOSCOPY (EGD) BIOPSY Referral ID Status Reason Start Date Expiration Date Visits Re quested Visits Authorized [id number] 1 1 Encounter Details Date Type Department Care Team (Late st Contact Info) Description 02/02/2021 7:58 AM CDT - 02/02/2021 1:27 PM CDT Hospital Encounter [facility] [address] [address] [place] [id number] [address] Surgery General Discharge Disposition: Home or Self Care Social History Tobacco Use Types Packs/Day Years Used Date Smoking Tobacco: Former Cigarettes Q uit: 06/2020 Smokeless Tobacco: Never Alcohol Use Standard Drinks/Week Comments Yes 14 (1 standard drink = 0.6 oz pu re alcohol) Sex and Gender Information Value Date Recorded Sex Assigned at Female 11/25/2020 1:10 PM DRUM CARRIER Gender Identity Female 11/25/2020 1:10 PM DRUM CARRIER Sexual Orientation Straight 02/02/2021 4: 18 PM CDT COVID-19 Exposure Response Date Recorded In the last month, have you been in contact with someone who was confirmed or suspected to have Coronavirus / COVID-19? No / Unsure 01/30/2021 6:27 AM CDT documented as of this encounter Last Filed Vital Signs Vital Sign Reading Time Taken Comments Blood Pressure 122/71 02/02/2021 12:50 PM CDT Pulse 64 02/02/2021 12:50 PM CDT Temperature 36.3 ??C (97.3 ??F) 02/02/2021 12:35 PM C DT Respiratory Rate 16 02/02/2021 12:45 PM CDT Oxygen Saturation 97% 02/02/2021 12:50 PM CDT Inhaled Oxygen Concentration - - [...] 02/23/2021 vitamin D, ergocalciferol, (DRISDOL) 1.25 MG (35089 UT) capsuleIndications:Vit meza D Deficiency Take 1 [...] Tram Pemberton APRN-CNP - 01/13/2021 7:51 AM DRUM CARRIER [facility] Health [place] [address] . . Date of encounter: 01/13/2021 Provider: SANGEETHA Rai Patient: Maria Del Carmen Ray CSN: [id number] Specialty: Bariatric Surgery Date of : 1975 [...] file Gets together: Not on file Attends holiness service: Not on file Active member of [...] for the 01/13/21 encounter (Office Visit) with Nilay, Tram D, LABORATORY OPERATIONS COORDINATOR-[employer]IS[employer] MANAGEMENT INTERNS[employer]IP Medication Sig ??? vitamin D, ergocalciferol, (DRISDOL) 1.25 MG (88863 UT) capsule Take 1 capsule by mouth [...] Cornell Chavarria ?? Consults and Test ordered:?? EGD- Scheduled for 02/02/2021. Nicotine Screen x 1- She is to have results faxed to our clinic Follow up: Will see the provider in 1 month if needed- pending review of EGD results- If EGD normal, I will submit her information to our insurance administrator for review. She verbalized understanding and is agreeable to this plan after shared decision making with patient. SANGEETHA Rai CC: SANGEETHA Kumar CARRIER documented in this encounter OR Notes * Operative - Rehan Mendoza MD - 02/02/2021 11:16 AM CDT EGD OPERATIVE REPORT Pt Name: Maria Del Carmen Ray Date of Service: 02/02/2021 12:32 PM Patient Name: Maria Del Carmen Ray Referring Physician: SANGEETHA Kumar SURGEON: Surgeon(s) and Role: * Rehan Mendoza MD - Primary COOK SOUP: Recorder Helper Seismograph: King Barros RN Scrub Person: Crista Ventura RN; Catherine Gabriel RN Help Start: Khushbu Diaz RN Recorder Helper Seismograph Orientee: Priya Hurtado RN Pre Procedure Diagnosis: [...] CENTER Health Weight Management Services [address] [place] [phone] Vianey Llanes, LABORATORY OPERATIONS COORDINATOR-[employer] [address] [place] [address] 03/15/2025 10:30 AM CDT Clinical Support [facility] Weight Management Services [address] [place] [phone] Scheduled Orders Name Type Priority Associated Diagnoses Orde r Schedule EGD GI Routine ONCE for 1 Occ urrences starting 02/02/2021 until 02/02/2021 documented as of this encounter Procedures Procedure Name Priority Date/Time Associated Diagnosis Comments GROSS + MICRO EXAM (ILL) Routine 02/02/2021 12:23 PM CDT Gastroesophageal reflux disease, unspecified whether esophagitis present WV EGD FLEX TRANSORAL W BX SNGL OR MULT 02/02/2021 12:13 PM CDT Gastroesophageal reflux disease, unspecified whether esophagitis present Special Needs ARRIVAL TIME: documented in this encounter Results * GROSS + MICRO EXAM (ILL) (02/02/2021 12:23 PM CDT) Case Report Surgical Pathology Report ? Case: [id number] ? Authorizing Provider: ??Rehan Mendoza MD ?Collected: ? 02/02/2021 12:23 PM ? Ordering Location: ? [facility] ?Received: ?02/03/2021 11:15 AM ? Pathologist: ? Chuckie Lujan MD ? Specimens: ?? A) - Duodenal Biopsy, duodenum biopsy ? B) - Biopsy, Pylorus biopsy r/o h pylori ? C) - EG Junction Biopsy , GE junction ? 02/06/2021 2:[address] [facility] Final Diagnosis A) SMALL INTESTINE, DUODENUM [...] EVIDENCE OF INTESTINAL METAPLASIA. 02/06/2021 2:[address] [facility] Microscopic Description and Comment The gastric mucosal changes are non-specific and appear reactive. Result of immunostain is pending which will be reported in an addendum upon completion of the test. The GEJ biopsy findings are compatible with reflux disease. 02/06/2021 2:[address] [facility] Clinical History Gastroesophageal reflux disease, unspecified whether esophagitis present Per EMR, endoscopy reported GEjn at 40 cm from incisors, irregular biospy obtained. Small superficial Pyloric ulcer, biopsy obtained Gastritis. No hiatal hernia 02/06/2021 2:[address] [facility] Gross Description Three specimens are received [...] in C1. LS/scs 02/06/2021 2:[address] [facility] Disclaimer The performance characteristics of all immunohistochemical and indirect immunofluorescence stains (if any) cited in this report were determined by the Histopathology Laboratory of [facility]. Some of these tests were developed [...] H&E slides and special stains prepared at [facility], [place]. [address] (CLIA# [id number]) unless otherwise specified. This case was interpreted by the [facility] Department of Pathology. When applicable, select reference laboratory testing is performed at the [facility], [address] [place] [address]. 02/06/2021 2:03 PM [facility] Addendum 1 Immunostain for H-pylori: NEGATIVE Comment: Immunostain reveals no H-pylori organisms. Positive control is appropriately stained. 02/06/2021 2:03 PM [facility] Addendum electronically signed by Chuckie Lujan MD on 02/06/2021 at 2:03 PM Embedded Images 02/06/2021 2:03 PM [facility] Pathology/Cytology DUODENAL BIOPSY SPECIMEN / Unknown [...] - PATHOLOGY/CYTO LOGY ORDERABLES Performing Organization Address [facility] Co de Phone Number [facility] [address] [place] [address] documented in this encounter Visit Diagnoses Diagnosis [...]
--- OUTSIDE RECORDS SUMMARY | 2024-11-04 23:00 | XMS_ITS | Encounter Summary ---
Author Organization [facility] Address [address] [place] [address] Care Team Providers Care Product Development Specialist Name Role Phone Unavailable Primary Care Provider Unavailabl e Reason for Visit * Reason Comments Bariatric Surgery Follow-up Encounter Details Date Type Department Care Team (Late st Contact Info) Description 09/17/2020 3:00 PM HIM CODER Video Visit [facility] Weight Management Services [address] [place] [phone] Rehan Mendoza MD [address] [place] [phone] Tram Pemberton, LEGGER PRESS OPERATOR-[facility] [address] [address] Morbid obesity (HCC) ; Body mass index [...] Sex Assigned at Female 11/25/2020 1:10 PM HIM CODER Gender Identity Female 11/25/2020 1:10 PM HIM CODER Sexual Orientation Straight 02/02/2021 4: 18 PM CDT documented as of this encounter Last Filed Vital Signs Vital Sign Reading Time Taken Comments Blood Pressure 129/85 09/17/2020 2:00 PM HIM CODER Pulse 65 09/17/2020 2:00 PM HIM CODER Temperature 36.4 ??C (97.5 ??F) 09/17/2020 2:00 PM CS T Respiratory Rate 20 09/17/2020 2:00 PM HIM CODER Oxygen Saturation 99% 09/17/2020 2:00 PM HIM CODER Inhaled Oxygen Concentration - - Weight 112.9 kg (249 lb) 09/17/2020 2:00 PM HIM CODER Height 160 cm (5' 3 ) 09/17/2020 2:00 PM HIM CODER Body Mass Index 44.11 09/17/2020 2:00 PM HIM CODER documented in this encounter Progress Notes * Tram Pemberton APRN-CNP - 09/17/2020 8:35 AM CST [facility] [place] [address] . . Date of encounter: 09/17/2020 Provider: SANGEETHA Rai Patient: Maria Del Carmen Ray CSN: [id number] Specialty: Bariatric Surgery Date of : 1975 Today's visit was conducted virtually due to COVID-19 countermeasures. The patient has given verbalconsent to have today's visit conducted by this same means with treatment provided remotely. The patient verbally consents to the billing and collection practices of [facility]. Visit type: Bariatrics Virtual Pre-operative follow up Maria Del Carmen Ray 45 year old female was referred by SANGEETHA Kumar for Bariatrics pre-opfollow up. Bariatric Preop HPI she was seen in clinic last on 08/13/2020. The procedure requested is Sleeve Gastrectomy. Patient is attending support group meeting. The patient has been participating in an online supportgroup. No of support group meeting attended 1/3 Patient is taking 30 grams of proteins supplements daily. Patient is taking 100 oz of fluid per day. Doing 20 minutes of exercise daily. The patient has not been participating in NExT program. Weight change as in weight history below. Weight History: Initial Weight: 255.6 lb. BMI 45.29 Date: 08/13/2020 09/17/2020 Weight: 249 lb (112.9 kg) BMI (Calculated): 44.12 Weight Loss since last visit in lbs : 6.6 lb Total Wt Loss in lb: 6.6 lb Obesity History Years at current weight? [...] Former Smoker Quit date: 06/2020 Years since quittin.2 ??? Smokeless tobacco: Never Used Substance and [...] file Gets together: Not on file Attends muslim service: Not on file Active member of [...] Outpatient Medications Marked as Taking for the 09/17/20 encounter (Video Visit) with NilayTrinh APRN-CNP Medication Sig ??? vitamin D, ergocalciferol, (DRISDOL) 1.25 MG (08123 UT) capsule Take 1 capsule by mouth every 7days Reasons: Vitamin D Deficiency (Not in a hospital admission) Allergies Allergen Reactions ??? Amoxicillin Rash and Unknown Objective: Vital Signs: BP 129/85 Pulse 65 Temp 97.5 ??F (36.4 ??C) Resp 20 Ht 5' 3 (1.6 m) Wt 249 lb (112.9 kg) SpO2 99% BMI 44.11 kg/m2 Weight: 249 lb (112.9 kg) Height: 5' 3 (160 cm) Body mass index is 44.11 kg/m??. Physical Exam Physical Exam Constitutional: She is oriented to person, place, and time. Neurological: She is alert and oriented to person, place, and time. Labs Some lab results will be in paper format so may be scanned in the EMR. Imaging studies EK2020 CHEST XRAY: 2020 Assessment and Plan Assessment: (E66.01) Morbid obesity (primary encounter diagnosis) (Z68.41) Body mass index (BMI) of 40.0-44.9 in adult (K21.9) Gastroesophageal reflux disease, unspecified whether esophagitis present (F41.9) Anxiety (M25.50) Arthralgia, unspecified joint (Z87.891) History of smoking (E55.9) Vitamin D deficiency Morbid Obesity Weight change as in weight history. Patient has lost 6.6 pounds since their last visit. Total Weight lost since start of the program: 6.6 lbs. Patient continues to follow up with the dietitian and iscontinuing to make healthy lifestyle changes. Discussed the importance of exercise and increasing their daily activities to further their weight loss journey and for overall health. Continue on liquid protein diet replacement therapy. Patient has a 6 months primary care physician supervised diet requirement. Has completed 2/6 months. Will plan for Laparoscopic Sleeve Gastrectomy provided all the tests are done satisfactorily, once the insurance is approved and all the follow-up clearances are done. BMI of 44.11 GERD Complains of reflux symptoms occasionally. We'll plan for an EGD to rule out H. pylori and any anatomic abnormality. Will proceed with EGD . The procedure was described in detail to the patient. Risks discussed including bleeding, infection, perforation, need for subsequent procedure. Written handout of preparation for procedure provided to patient today. Patient verbalizes understanding and denies any further questions ?? Anxiety Patient anxious about surgery and [...] Currently to continue with pain medication PRN. ?? History of Smoking addiction She states that she stopped smoking in June 2020. Recommend her not to restart smoking. Explainedto her the risk of development of complications with smoking after bariatric surgery. She will need2 negative nicotine screens prior to bariatric surgery. Vitamin D Deficiency Will start patient on Vitamin D 50,000 IU weekly for 16 weeks; recheck level after completion Patient encouraged to consume foods high in Vitamin D including fortified dairy products, fatty fish,eggs, and fortified cereals ?? Consults and Test ordered: Dietitian consult for diet counseling Psychology/psychiatry consult for pre-operative clearance. EGD. Nicotine Screen x 2 4/ 6 month physician supervised diet. Follow up: Will see the provider in 1 month. Patient location: Home This encounter was performed using: audio Reason for not using video for visit: technical problems in using available video technology Time spent with patient/proxy: 14 minutes The plan was reviewed with the patient and the patient confirmed understanding of the plan and all follow-up steps. Patient is agreeable with this plan after shared decision making with patient. All aspects of patient's medical history were reviewed and updated as documented in Epic SANGEETHA Rai CC: SANGEETHA Kumar CODER documented in this encounter Plan of Treatment Upcoming Encounters Date Type Department Care Team (Late st Contact Info) Description 03/15/2025 10:00 AM CDT Office Visit [facility] Health Weight Management Services [address] [place] [phone] Vianey Llanes, LEGGER PRESS OPERATOR-SUPERVISOR BOAT OUTFITTING [address] [place], [place] [phone] 03/15/2025 10:30 AM CDT Clinical Support [facility] Services [address] [place] [phone] documented as of this encounter Visit Diagnoses [...]
--- OUTSIDE RECORDS SUMMARY | 2024-11-04 23:00 | XMS_ITS | Encounter Summary ---
Author Organization [facility] Address [address] [place] [address] Care Team Providers Care Press Operator Automatic Name Role Phone Unavailable Primary Care Provider Unavailabl e Reason for Visit * Reason Onset Date Comments Request Lab Order 12/15/2020 Encounter Details Date Type Department Care Team (Late st Contact Info) Description 12/15/2020 Telephone [facility] Weight Management Services [address] [place] [address] Rehan Mendoza MD [address] [place] [phone] Request Lab Order Social History Tobacco Use Types Packs/Day Years Used Date Smoking Tobacco: Former Cigarettes Q uit: 06/2020 Smokeless Tobacco: Never Alcohol Use Standard Drinks/Week Comments Yes 0 (1 standard drink = 0.6 oz pur e alcohol) OCC. Sex and Gender Information Value Date Recorded Sex Assigned at Female 11/25/2020 1:10 PM SURGICAL TERRITORY MANAGER Gender Identity Female 11/25/2020 1:10 PM SURGICAL TERRITORY MANAGER Sexual Orientation Straight 02/02/2021 4: 18 PM CDT documented as of this encounter Miscellaneous Notes * Telephone Encounter - Cris Bundy LPN - 12/15/2020 1:40 PM SURGICAL TERRITORY MANAGER Lab orders faxed to [phone]. ICAL TERRITORY MANAGER * Telephone Encounter - Naila You - 12/15/2020 1:33 PM CST Per patient's request, please refax the order for the nicotine test & iron blood draw to [phone]. She will do this on Tuesday. ICAL TERRITORY MANAGER documented in this encounter Plan of Treatment Upcoming Encounters Date Type Department Care Team (Late st Contact Info) Description 03/15/2025 10:00 AM CDT Office Visit [facility] Weight Management Services [address] [place] [phone] Vianey Llanes, SALVAGE WINDER-CAR DROPPER [address] [place], [place] [phone] 03/15/2025 10:30 AM CDT Clinical Support [facility] Services [address] [place] [phone] documented as of this encounter Visit Diagnoses Not on filedocumented in this encounter
--- OUTSIDE RECORDS SUMMARY | 2024-11-04 23:01 | XMS_ITS | Clinical Summary ---
Author Organization [facility] Address Formerly [facility] [place] [address] [place] [address] Care Team Providers Care Academic Support Coordinator Name Role Phone Juanis Richards NP Primary Care Provider [phone] Allergies Active Allergy Reactions Criticality Noted Date Comments Amoxicillin Rash Low 12/08/2018 Iodine Hives High 01/24/2023 Medications calcium carb-cholecalci ferol 600-400 MG-UNIT Tab tablet 1 tablet daily. Active hydroCHLOROthia zide (MICROZIDE) 12.5 MG capsule Take 1 capsule (12.5 mg total) by mouth daily. Active benzonatate (TESSALON PERLES) 100 MG capsule Take 1 capsule (100 mg total) by mouth 3 (three) times daily as needed. 15 capsule 01/08/2024 Active fluticasone propionate (FLONASE) 50 MCG/ACT nasal spray 1-2 sprays by Nasal route daily. 1-2 sprays in each nostril qd; Start: 2 sprays in each nostril qd x1wk; Max: 2 sprays in each nostril/day 16 g 01/08/2024 Active Active Problems Problem Noted Date Diagnosed Date TIA (transient ischemic attack) 01/01/2023 Diverticulitis 06/01/2019 Obesity 07/03/2015 Backache 01/23/2014 Esophageal reflux 11/22/2012 Resolved Problems Problem Noted Date Diagnosed Date Resolved Date Sinusitis 12/04/2015 06/28/2020 Knee pain, right 10/08/2013 07/17/2020 Foot pain 04/03/2013 07/17/2020 Hypertension 06/05/2012 07/17/2020 Encounters Date Type Department Care Team Description 10/28/2024 9:00 PM STOCK CHECKER - 10/28/2024 11:34 PM [address] [facility] [place] [address] Mary Gant MD Sore Throat; Diarrhea Discharge Disposition: Home or Self Care (Routine Discharge) 10/28/2024 Travel from Last 3 Months Immunizations Name Administration Dates Next Due Influenza Adult (Generic) 08/07/2019(Deferred: P atient/family declined) Family History Medical History Relation Comments Hypertension Father Stroke Father None Mother Relation Status Comments Father Mother Alive Social History Tobacco Use Types Packs/Day Years Used Date Smoking Tobacco: Former Cigarettes Q uit: 08/09/2010 Smokeless Tobacco: Never Tobacco Cessation:Counseling Given: No Alcohol Use Standard Drinks/Week Comments Yes 5 (1 standard drink = 0.6 oz pur e alcohol) AUDIT-C Answer Date Recorded Frequency of Alcohol Consumption Never 05/03/2019 Average Number of Drinks Not on file 019 Frequency of Binge Drinking Not on file 04/08 PHQ-2 Answer Date Recorded PHQ-2 Score - If the patient scores above 3, please move on to questions 3-9 0 07/17/2020 Comments No Sex and Gender Information Value Date Recorded Sex Assigned at Not on file Legal Sex Female 6:50 PM CDT Gender Identity Not on file Sexual Orientation Not on file Last Filed Vital Signs Vital Sign Reading Time Taken Comments Blood Pressure 167/99 10/28/2024 10:25 PM STOCK CHECKER Pulse 58 10/28/2024 10:25 PM STOCK CHECKER Temperature 37 ??C (98.6 ??F) 10/28/2024 8:18 PM STOCK CHECKER Respiratory Rate 16 10/28/2024 10:25 PM STOCK CHECKER Oxygen Saturation 99% 10/28/2024 10:25 PM STOCK CHECKER Inhaled Oxygen Concentration - - Weight 72.6 kg (160 lb) 10/28/2024 8:18 PM STOCK CHECKER Height 160 cm (5' 3 ) 10/28/2024 8:18 PM STOCK CHECKER Body Mass Index 28.34 10/28/2024 8:18 PM STOCK CHECKER Plan of Treatment Health Maintenance Due Date Last Done Comments ASCVD Statin 1976 Hepatitis C 1994 DTaP, Tdap and Td Vaccines (1 - Tdap) 1995 Hepatitis B Vaccines (1 of 3 - 19+ 3-dose series) 1995 ASCVD LDL 12/08/2019 12/08/2018, 12/04/2016, 07/06/2015, Additional history exists Annual Physical 07/17/2021 07/17/2020, 12/08/2018 Mammogram Screening 08/19/2022 08/19/2020, 0 COVID-19 Vaccine ( season) 2024 Influenza Adult (#1) 2024 Colorectal Cancer Screening Colonoscopy (10 Years) 08/09/2029 08/09/2019 Meningococcal Vaccine Aged Out No diana denae eligible based on patient's age to complete this topic Pneumococcal Vaccine: Pediatrics (0 to 5 Years) and At-Risk Patients (6 to 64 Years) Aged Out No longer eligible based on patient's age to complete this topic RSV Immunizations Under 20 Months Aged Out No longer eligible based on patient's age to complete this topic Procedures Procedure Name Priority Date/Time Associated Diagnosis Comments INFLUENZA A & B STAT 10/28/2024 9:35 PM STOCK CHECKER CORONAVIRUS (COVID 19) STAT 10/28/2024 9:35 PM STOCK CHECKER STREP A RAPID STAT 10/28/2024 9:35 PM STOCK CHECKER HIV 1 ANTIGEN(S), WITH HIV-1 AND HIV-2 ANTIBODIES STAT 10/28/2024 9:35 PM STOCK CHECKER HETEROPHILE ANTIBODIES,SCREEN STAT 10/28/2024 9:35 PM STOCK CHECKER HC URINALYSIS AUTO W/O MICRO STAT 10/28/2024 9:35 PM STOCK CHECKER COMPREHENSIVE METABOLIC PANEL STAT 10/28/2024 9:35 PM STOCK CHECKER CBC W/DIFF AUTOMATED STAT 10/28/2024 9:35 PM STOCK CHECKER XR CHEST PORTABLE STAT 10/28/2024 8:3 9 PM STOCK CHECKER MAMMOGRAM GENERIC (SCAN ORDER) 08/19/2020 LIPID PANEL Routine 12/08/2018 9:28 AM STOCK CHECKER Essential hypertension from Last 3 Months or Most Recently Relevant to Health Maintenance Results * CORONAVIRUS (COVID 19) (10/28/2024 9:35 PM STOCK CHECKER) [facility] CORONAVIRUS SARS COV 2 RNA NEGATIVE NEGATIVE 10/28/2024 10:10 PM STOCK CHECKER [facility] Comment: NEGATIVE RESULTS DO NOT RULE OUT COVID 19 AND SHOULD NOT BE USED THE SOLE BASIS FOR TREATMENT OR PATIENT MANAGEMENT DECISIONS, INCLUDING INFECTION CONTROL DECISIONS. NEGATIVE RESULTS SHOULD BE CONSIDERED IN THE CONTEXT OF A PATIENT'S RECENT EXPOSURES, HISTORY AND THE PRESENCE OF CLINICAL SIGNS AND SYMPTOMS CONSISTENT WITH COVID 19. THE ID NOW COVID-19 2.0 TEST HAS BEEN AUTHORIZED BY THE FDA UNDER EAU FOR USE BY AUTHORIZED LABORATORIES. PERFORMED BY NUCLEIC ACID AMPLIFICATION FOR MOLECULAR QUALITATIVE DETECTION OF SARS-COV-2. SPECIMEN TYPE NASAL 10/28/2024 9:29 PM STOCK CHECKER [facility] NASAL STRUCTURE / Unknown 10/28/2024 9:35 PM STOCK CHECKER Pam MAY MICROBIOLOGY - GENERAL ORDERAB LES Final Result [facility] [address] [place] [address], [place] [phone] * HIV 1 ANTIGEN(S), WITH HIV-1 AND HIV-2 ANTIBODIES (10/28/2024 9:35 PM STOCK CHECKER) [facility] HIV 1/2 AB+ HIV1 P24 AG NON-REACTI VE NON-REACTI VE 10/28/2024 11:22 PM STOCK CHECKER [facility] 10/28/2024 9:35 PM STOCK CHECKER Mary Gant MD LABORATORY Final Resul t [facility] [address] [place] [address], [place] [phone] * INFLUENZA A & B (10/28/2024 9:35 PM STOCK CHECKER) SPECIMEN TYPE SWAB 10/28/2024 10:10 PM STOCK CHECKER [facility] INFLUENZA A NEGATIVE NEGATIVE 10/28/2024 10:10 PM STOCK CHECKER [facility] INFLUENZA B NEGATIVE NEGATIVE 10/28/2024 10:10 PM STOCK CHECKER [facility] Comment: Interpretation: Negative for Influenza A and B. A negative result does not exclude influenza virus infection. If influenza is circulating in your community, a diagnosis of influenza should be considered based on a patient's clinical presentation and empiric antiviral treatment should be considered, if indicated. If more conclusive testing is needed for hospitalized inpatients, follow-up confirmatory testing with RT-PCR requires a separate order. NASAL STRUCTURE / Unknown 10/28/2024 9:35 PM STOCK CHECKER Pam MAY MICROBIOLOGY - GENERAL ORDERAB LES Final Result Performing Organization Address City/[facility]/ZIP Co de Phone Number [facility] [address] [place] [address], [place] [phone] * (ABNORMAL) URINALYSIS (10/28/2024 9:35 PM STOCK CHECKER) SPECIMEN TYPE URINE CLEAN CATCH 10/28/2024 9:34 PM STOCK CHECKER [facility] COLOR (U) YELLOW 10/28/2024 9:59 PM STOCK CHECKER [facility] TRANSPARENCY CLEAR 10/28/2024 9:59 PM STOCK CHECKER [facility] SPECIFIC GRAVITY (U) 1.037(H) 1.001 - 1.030 10/28/2024 9:59 PM STOCK CHECKER [facility] U PH 6.5 5.0 - 9.0 10/28/2024 9:59 PM STOCK CHECKER [facility] LEUKOCYTES (U) NEGATIVE NEGATIVE 10/28/2024 9:59 PM STOCK CHECKER [facility] NITRITES NEGATIVE NEGATIVE 10/28/2024 9:59 PM STOCK CHECKER [facility] PROTEIN RANDOM (U) 30(H) <30 MG/DL 10/28/2024 9:59 PM STOCK CHECKER [facility] GLUCOSE (U) NORMAL NORMAL MG/DL 10/28/2024 9:59 PM STOCK CHECKER [facility] KETONES MG/DL (U) NEGATIVE NEGATIVE MG/DL 10/28/2024 9:59 PM [facility] UROBILINOGEN 4.0(A) NORMAL MG/DL 10/28/2024 9:59 PM STOCK CHECKER [facility] BILIRUBIN (U) NEGATIVE NEGATIVE MG/DL 10/28/2024 9:59 PM [facility] BLOOD (U) 1+(A) NEGATIVE 10/28/2024 9:59 PM STOCK CHECKER [facility] MUCUS FEW /LPF 10/28/2024 9:59 PM STOCK CHECKER [facility] WBC/HPF 4 <6 /HPF 10/28/2024 9:59 PM STOCK CHECKER [facility] RBC/HPF 11(H) <6 /HPF 10/28/2024 9:59 PM STOCK CHECKER [facility] SQUAMOUS EPITHELIALS RARE /HPF 10/28/2024 9:59 PM [facility] URINE SPECIMEN OBTAINED BY CLEAN CATCH PROCEDURE / Unknown 10/28/2024 9:35 PM STOCK CHECKER Pam MAY URINE ORDERABLES Final Result [facility] [address] [place] [address], [place] [phone] * STREP A RAPID (10/28/2024 9:35 PM STOCK CHECKER) SPECIMEN TYPE THROAT 10/28/2024 9:29 PM STOCK CHECKER [facility] RAPID STREP TEST NEGATIVE NEGATIVE 10/28/2024 10:10 PM STOCK CHECKER [facility] STRUCTURE OF ANTERIOR PORTION OF NECK / Unknown 10/28/2024 9:35 PM STOCK CHECKER Pam MAY MICROBIOLOGY - GENERAL ORDERAB LES Final Result Performing Organization Address [facility]/ZIP Co de Phone Number [facility] [address] [place] [address], [place] [phone] * (ABNORMAL) COMPREHENSIVE METABOLIC PANEL (10/28/2024 9:35 PM STOCK CHECKER) GLUCOSE 89 70 - 99 MG/DL 10/28/2024 10:17 PM STOCK CHECKER [facility] BUN 28(H) 7 - 18 MG/DL 10/28/2024 10:17 PM STOCK CHECKER [facility] CREATININE S/P/B 1.08(H) 0.55 - 1.02 MG/DL 10/28/2024 10:17 PM STOCK CHECKER [facility] SODIUM S/P/B 140 136 - 145 MMOL/L 10/28/2024 10:17 PM [facility] POTASSIUM S/P/B 4.0 3.5 - 5.1 MMOL/L 10/28/2024 10:17 PM STOCK CHECKER [facility] CHLORIDE S/P/B 107 97 - 115 MMOL/L 10/28/2024 10:17 PM [facility] CO2 30.2 21 - 32 MMOL/L 10/28/2024 10:17 PM [facility] CALCIUM S/P/B 8.7 8.5 - 10.1 MG/DL 10/28/2024 10:17 PM [facility] BILIRUBIN TOTAL S/P/B 0.4 0.2 - 1.2 MG/DL 10/28/2024 10:17 PM [facility] Comment: THIS ASSAY IS NOT RECOMMENDED FOR PATIENTS UNDERGOING TREATMENT WITH ELTROMBOPAG DUE TO THE POTENTIAL FOR FALSELY ELEVATED RESULTS. TOTAL PROTEIN S/P/B 6.8 6.4 - 8.2 G/DL 10/28/2024 10:17 PM [facility] ALBUMIN S/P/B 3.6 3.4 - 5.0 G/DL 10/28/2024 10:17 PM [facility] AST 20 15 - 37 U/L 10/28/2024 10:17 PM [facility] ALT 26 14 - 55 U/L 10/28/2024 10:17 PM [facility] ALKALINE PHOSPHATASE S/P/B 84 50 - 136 U/L 10/28/2024 10:17 PM [facility] ANION GAP 2.8 2 - 10 MMOL/L 10/28/2024 10:17 PM [facility] BUN CREATININE RATIO 25.9 6 - 26 10/28/2024 10:17 PM [facility] A/G RATIO 1.1 1.0 - 2.0 RATIO 10/28/2024 10:17 PM [facility] GFR ESTIMATE 63(L) >90 ML/MIN/1.7 3 M2 10/28/2024 10:17 PM STOCK CHECKER [facility] Comment: NOTE: eGFR is not calculated for patients <18 years of age or gender unknown. This is an estimated GFR calculation using the new CKD EPI creatinine equation without race and so does not require a correction factor for race. This estimated GFR should not be used for calculating drug doses. 10/28/2024 9:3 5 PM STOCK CHECKER Pam MAY LABORATORY Final Result Performing Organization Address City/[facility]/ZIP Co de Phone Number [facility] [address] [place] [address], [place] [phone] * HETEROPHILE ANTIBODIES,SCREEN (10/28/2024 9:35 PM STOCK CHECKER) Pathologist [facility] MONO TEST NEGATIVE NEGATIVE 10/29/2024 1:49 PM STOCK CHECKER [facility] 10/28/2024 9:35 PM STOCK CHECKER us Pam MAY LABORATORY Final Result Performing Organization Address City/[facility] Co de Phone Number [facility] [address] [place] [address], [place] [phone] * (ABNORMAL) CBC W/DIFF AUTOMATED (10/28/2024 9:35 PM STOCK CHECKER) Pathologist [facility] WBC 10.18 4.5 - 11.0 x10'3/uL 10/28/2024 9:55 PM STOCK CHECKER [facility] RBC 4.40 4.20 - 5.40 x10'6/uL 10/28/2024 9:55 PM STOCK CHECKER [facility] HGB 14.2 12.0 - 16.0 G/DL 10/28/2024 9:55 PM STOCK CHECKER [facility] HCT 42.7 38.0 - 48.0 % 10/28/2024 9:55 PM STOCK CHECKER [facility] MCV 97.0 81.0 - 99.0 FL 10/28/2024 9:55 PM STOCK CHECKER [facility] MCH 32.3(H) 27.0 - 31.0 PG 10/28/2024 9:55 PM STOCK CHECKER [facility] MCHC 33.3 32.0 - 36.0 G/DL 10/28/2024 9:55 PM STOCK CHECKER [facility] RDW 12.9 11.5 - 14.5 % 10/28/2024 9:55 PM STOCK CHECKER [facility] PLT 224 130 - 400 x10'3/uL 10/28/2024 9:55 PM STOCK CHECKER [facility] MPV 9.9 9.3 - 12.2 FL 10/28/2024 9:55 PM [facility] DIFFERENTIAL TYPE AUTOMATED DIFFERENTIAL 10/28/2024 9:55 PM [facility] NEUTROPHILS % 60.2 % 10/28/2024 9:55 PM STOCK CHECKER [facility] LYMPHOCYTES % 32.7 % 10/28/2024 9:55 PM [facility] MONOCYTES % 5.4 % 10/28/2024 9:55 PM [facility] EOSINOPHILS 0.7 % 10/28/2024 9:55 PM [facility] BASOPHILS 0.5 % 10/28/2024 9:55 PM [facility] IMMATURE GRANS % 0.5 % 10/28/20 9:55 PM STOCK CHECKER [facility] ABS. NEUTROPHILS 6.13 1.80 - 7.70 x10'3/uL 10/28/2024 9:55 PM [facility] ABS. LYMPHOCYTES 3.33 1.00 - 4.80 x10'3/uL 10/28/2024 9:55 PM STOCK CHECKER [facility] ABS. MONOCYTES 0.55 0.24 - 0.86 x10'3/uL 10/28/2024 9:55 PM STOCK CHECKER [facility] ABS. EOSINOPHILS 0.07 0.04 - 0.36 x10'3/uL 10/28/2024 9:55 PM STOCK CHECKER [facility] ABS. BASOPHILS 0.05 0.01 - 0.08 x10'3/uL 10/28/2024 9:55 PM STOCK CHECKER [facility] ABS. IMMATURE GRANULOCYTES 0.05 0.00 - 0.49 x10'3/uL 10/28/2024 9:55 PM STOCK CHECKER [facility] 10/28/2024 9:35 PM STOCK CHECKER us Pam Saez PA LABORATORY Final Result Performing Organization Address City/State/[facility] Co de Phone Number [facility] [address] [place] [address], * XR CHEST PORTABLE (10/28/2024 8:39 PM STOCK CHECKER) Anatomical Region Laterality Modality Chest Radiographic Rosi ging 10/28/2024 8:51 PM STOCK CHECKER Impressions 10/28/2024 8:52 PM STOCK CHECKER IMPRESSION: No acute findings. Ordered By: PAM SAEZ Interpreted By: Dima Manzanares MD, 10/28/2024 8:51 PM Narrative 10/28/2024 8:[address] [facility] [address] [place], [place] [address] Examination: X-ray chest, 1 view Exam time: 10/28/2024 at 2032 hours Clinical history: Cough. Flu. Comparison: 01/08/2024 Technique: Single frontal upright view of the chest obtained. FINDINGS: No parenchymal consolidation. No discrete pneumothorax or large pleural effusion. Cardiomediastinal silhouette unchanged. Procedure Note Dima Manzanares MD - 10/28/[address] [address] Examination: X-ray chest, 1 view Exam time: 10/28/2024 at 2032 hours Clinical history: Cough. Flu. Comparison: 01/08/2024 Technique: Single frontal upright view of the chest obtained. FINDINGS: No parenchymal consolidation. No discrete pneumothorax or large pleuraleffusion. Cardiomediastinal silhouette unchanged. IMPRESSION: No acute findings. Ordered By: PAM SAEZ Interpreted By: Dima Manzanares MD, 10/28/2024 8:51 PM us Pam Saez [place] GENERAL IMAGING Final Result * MAMMOGRAM GENERIC (08/19/2020) Anatomical Region Laterality Modality Other 08/19/2020 Narrative 08/19/2020 Ordered by an unspecified provider. us Documents Scanned SCANNING Final Result * (ABNORMAL) LIPID PANEL (12/08/2018 9:28 AM STOCK CHECKER) CHOLESTEROL 182 <200 MG/DL 12/08/2018 7:45 PM STOCK CHECKER [facility] TRIGLYCERIDES 96 <150 MG/DL 12/08/2018 7:45 PM STOCK CHECKER [facility] HDL 57 >40.0 MG/DL 12/08/2018 7:45 PM [facility] LDL (CALCULATED) 106(H) <100 MG/DL 12/08/2018 7:45 PM STOCK CHECKER [facility] NON HDL CHOLESTEROL 125 <130 MG/DL 12/08/2018 7:45 PM [facility] CHOL/HDL RATIO 3.2 0.0 - 4.5 12/08/2018 7:45 PM [facility] VLDL CALCULATION 19 5 - 55 MG/DL 12/08/2018 7:45 PM [facility] LIPID INTERPRETATION 12/08/2018 7:45 PM [facility] Comment: NIH CONCENSUS REPORT RECOMMENDATIONS: ?ADULT ?CHILD ??LOW RISK: ?CHOLESTEROL ? <200 ? <170 ?TRIGLYCERIDE ?<150 ?--- ?HDL ? >=60 ?--- ?LDL ? <100 ? <110 ??BORDERLINE: ?CHOLESTEROL ? 200-239 ?? 170-199 ?TRIGLYCERIDE ?150-199 ? --- ?HDL ?40-59 ?--- ?LDL ? 100-159 ?? 110-129 ??HIGH RISK: ?CHOLESTEROL ? >=240 ?>=200 ?TRIGLYCERIDE ?>=200 ? --- ?HDL ?<40 ?--- ?LDL ? >=160 ?>=130 12/08/2018 9:28 AM STOCK CHECKER us Rose Marie Norton NP LABORATORY Final Result [facility] [address] [place] [address], [place] [phone] from Last 3 Months or Most Recently Relevant to Health Maintenance Insurance [facility] Advance Directives * Full Code (Latest Code Status on File) Date Activated Date Inactivated Comments 06/01/2019 2:39 AM 06/04/2019 12:03 PM Care Teams Academic Support Coordinator Relationship Specialty Start Date End Date Juanis Richards NP [address] [place] [phone] PCP - General Nurse Practitioner Family 10/28/24
--- OUTSIDE RECORDS SUMMARY | 2024-11-04 23:01 | XMS_ITS | Encounter Summary ---
Author Organization [facility] Address [address] [place] [address]. [place], [place] [id number] [place] [id number] Care Team Providers Care Superintendent Logging Name Role Phone None, Provider Primary Care Provider Hayder bowles Encounter Details Date Type Department Care Team (Latest Contact Info) Description 01/08/2024 Travel Social History Tobacco Use Types Packs/Day Years Used Date Smoking Tobacco: Former Cigarettes Q uit: 08/09/2010 Smokeless Tobacco: Never Alcohol Use Standard Drinks/Week Comments Yes 5 [...] on file Sexual Orientation Not on file documented as of this encounter Functional Status * RETIRED Are you deaf or do you have serious difficulty hearing Answer Date of Assessment Author Status No 06/01/2019 2:55 AM CDT Activ e * RETIRED Are you blind or do you have serious difficulty seeing, even when wearing glasses? Answer Date of Assessment Author Status No 06/01/2019 2:55 AM CDT Activ e * Do you have serious difficulty walking or climbing stairs? Answer Date of Assessment Author Status No 06/01/2019 2:55 AM CDT Teja Seugndo RN Active * Do you have difficulty dressing or bathing? Answer Date of Assessment Author Status No 06/01/2019 2:55 AM CDT Teja Segundo RN Active * Because of a physical, mental, or emotional condition, do you have difficulty doing errands alone such as visiting a doctor's office or shopping? Answer Date of Assessment Author Status No 06/01/2019 2:55 AM CDT Teja Segundo RN Active documented as of this encounter Mental Status * Because of a physical, mental, or emotional condition, do you have serious difficulty concentrating, remembering, or making decisions? Answer Entry Date Author Status No 06/01/2019 2:55 AM CDT Teja Segundo RN Active documented in this encounter Plan of Treatment Not on file documented as of this encounter Visit Diagnoses Not on filedocumented in this encounter Additional Health Concerns Infection Onset Date Last Indicated Resolved Time COVID-19 Rule Out 01/08/2024 01/08/2024 01/08/2024 2:18 PM ROLLS BAKER Assessment Noted Time PHQ-9 Depression Total Score: 2 07/17/20 20 9:06 AM CDT documented as of this encounter Care Teams Superintendent Logging Relationship Specialty Start Date End Date None, Provider, PCP - General 05/06/21 10/27/24 documented as of this encounter
--- OUTSIDE RECORDS SUMMARY | 2024-11-04 23:01 | XMS_ITS | Encounter Summary ---
Author Organization [facility] Address [address] [place] [address]. [place], [place] [id number] [place] [id number] Care Team Providers Care Fitness Leader Name Role Phone None, Provider MD Primary Care Provider Unavaila ble Reason for Visit * Reason Comments Flu Like Symptoms Encounter Details Date Type Department Care Team (Late st Contact Info) Description 01/08/2024 1:09 PM TRAINING PROGRAM ASSISTANT - 01/08/2024 2:33 PM [facility] Emergency [facility] [place] [address] Ava Durham, YADIRA [address] [place], [place] [id number] Flu Like Symptoms Discharge Disposition: Home or Self Care (Routine Discharge) Social History Tobacco Use Types Packs/Day Years [...] on file documented as of this encounter Last Filed Vital Signs Vital Sign Reading Time Taken Comments Blood Pressure 120/88 01/08/2024 12:46 PM TRAINING PROGRAM ASSISTANT Pulse 70 01/08/2024 12:46 PM TRAINING PROGRAM ASSISTANT Temperature 36.6 ??C (97.8 ??F) 01/08/2024 12:[address] Respiratory Rate 18 01/08/2024 12:46 PM TRAINING PROGRAM ASSISTANT Oxygen Saturation 99% 01/08/2024 12:46 PM TRAINING PROGRAM ASSISTANT Inhaled Oxygen Concentration - - Weight 72.6 kg (160 lb) 01/08/2024 12:46 PM TRAINING PROGRAM ASSISTANT Height 160 cm (5' 3 ) 01/08/2024 12:46 PM TRAINING PROGRAM ASSISTANT Body Mass Index 28.34 01/08/2024 12:46 PM TRAINING PROGRAM ASSISTANT documented in this encounter Functional Status * RETIRED Are [...] Assessment Author Status No 06/01/2019 2:55 AM MALUT Teja Segundo RN Active * Do you have difficulty dressing or bathing? Answer Date of Assessment Author Status No 06/01/2019 2:55 AM Teja Adams RN Active * Because of a physical, mental, or emotional condition, do you have difficulty doing errands alone such as visiting a doctor's office or shopping? Answer Date of Assessment Author Status No 06/01/2019 2:55 AM Teja Adams RN Active documented as of this encounter Mental Status * Because of a physical, mental, or emotional condition, do you have serious difficulty concentrating, remembering, or making decisions? Answer Entry Date Author Status No 06/01/2019 2:55 AM Teja Adams RN Active documented in this encounter Discharge Instructions * Discharge Instructions* YADIRA Jj - 01/08/2024 2:26 PM TRAINING PROGRAM ASSISTANT Take medications as directed for symptom relief. Stay very hydrated. Get plenty of rest. Follow-up closely with your doctor or the referred doctor in the next 2-3 days to ensure that you are improving. This is very important for your health. Use Tylenol and Motrin per package instructions for pain relief and fever reduction. Return to the emergency room for any new worsening symptoms especially for chest pain, shortness of breath, uncontrollable vomiting, fever greater than 100.4 not relieved with Tylenol Motrin, severe weakness, uncontrollable headache/pain, confusion, trouble swallowing, severe voice change, inability to open jaw/excessive drooling or other new emergent concerns. Thank you for giving us the opportunity to care for you today. If at any point you are becoming more ill, your condition worsens or have concern, please call your doctor or return here. You are always welcome back. If you have any questions about this visit, concerns about your symptoms, questions about your medications or other concerns, please give us a call... Our practice is committed to providing you the exceptional care. We want to hear from you! Please fill out the survey you get from us. Your feedback is anonymous & helps us improve the patient experience for you and others in the community we serve. - Ava Durham PA-C - Emergency Medicine Provider ADDITIONAL DISCHARGE INSTRUCTIONS: --Please follow all the instructions that we have discussed or are provided here. Take all medications as directed. --Emergency Departments (ED) provide medical screening exams and initial stabilizing treatment of emergency medical conditions. Medicine is an inexact science and many conditions cannot be diagnosed or completely treated during a single ED visit. Your treating healthcare provider(s) today feel yourcondition has been stabilized so further care as an outpatient is reasonable. Emergency care does not substitute for complete, ongoing, or follow-up care by your primary care physician or service loss control consultant.Please mention to your follow-up physician that you were in the emergency department and request that they review your labs and/or imaging to ensure all findings are followed up on. --Your medication list was reviewed prior to treatment, and at discharge, by the treating provider for the purpose of this outpatient visit only. Please review this entire medication list with your pharmacist, primary care physician, and specialist(s). It is your responsibility to share any new medication instructions you received this visit with your doctor(s). Although no medicine is without risk, your healthcare provider today feels reasonable decisions were made concerning starting new medications and stopping or changing the dosages of your usual medications until you receive follow-up care. Take medications only as directed. Many medications can cause drowsiness, especially those for pain, anxiety, muscle spasms, nausea, and allergies. DO NOT drive, drink alcohol, operate power machinery, or participate in potentially dangerous activities if taking medicines that make you tired. Chronic pain is best managed by pain specialists or primary care physicians, so narcotic refills are not routinely dispensed in the ED. DO NOT take multiple medications containing acetaminophen (Tylenol), such as many narcotic drug combinations and csst-gry-pudabac cold medicines. --Again, it was a pleasure taking care of you. NING PROGRAM ASSISTANT * Attachments The following attachments cannot be sent through Care Everywhere. * Viral Upper Respiratory Infection Discharge Instructions, Adult (Mongolian) * Cough, Runny Nose, and the Common Cold Discharge Instructions (Mongolian) documented in this encounter Medications at Time of Discharge benzonatate (TESSALON PERLES) 100 MG capsule Take 1 capsule (100 mg total) by mouth 3 (three) times daily as needed. 15 capsule 01/08/2024 calcium carb-cholecalcife rol 600-400 MG-UNIT Tab tablet 1 tablet daily. fluticasone propionate (FLONASE) 50 MCG/ACT nasal spray 1-2 sprays by Nasal route daily. 1-2 sprays in each nostril qd; Start: 2 sprays in each nostril qd x1wk; Max: 2 sprays in each nostril/day 16 g 01/08/2024 hydroCHLOROthiazi de (MICROZIDE) 12.5 MG capsule Take 1 capsule (12.5 mg total) by mouth daily. documented as of this encounter ED Notes * Nery Kelly RN - 01/08/2024 2:33 PM CST Discharge instructions reviewed with patient and opportunity provided for questions. Discussed follow up care and any prescription orders/changes. Pt verbalized understanding. Encouraged to return toED for new or worsening emergent symptoms. NING PROGRAM ASSISTANT * Conner Lam CNA - 01/08/2024 2:12 PM CST PT ambulated 200 ft, O2 sat stayed above 96% for entirety. NING PROGRAM ASSISTANT * YADIRA Jj - 01/08/2024 1:18 PM CST ED NOTE Chief Complaint Chief Complaint Patient presents with Flu Like Symptoms History of Present Illness 48-year-old female with a history of diverticulitis, hypertension, onychomycosis, scabies, tinea corporis/tinea curis presents to the emergency room for evaluation of cough, congestion, chest discomfort with cough that started approximately 2 days ago. Patient reports some shortness of breath associated with coughing. No hemoptysis, lower leg edema, recent surgery or trauma, periods of immobilization, known history of hypercoagulable state or use of exogenous hormone. 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 Medical History ALLERGIES: Review of patient's allergies indicates: Allergen Reactions Contrast [Iodine] Hives Amoxicillin Rash MEDICATIONS: Prior to Admission medications Medication Sig Start Date End Date Taking? Authorizing Provider benzonatate (TESSALON PERLES) 100 MG capsule Take 1 capsule (100 mg total) by mouth 3 (three) timesdaily as needed. 01/08/24 Yes YADIRA Jj fluticasone propionate (FLONASE) 50 MCG/ACT nasal spray 1-2 sprays by Nasal route daily. 1-2 spraysin each nostril qd; Start: 2 sprays in each nostril qd x1wk; Max: 2 sprays in each nostril/day 01/08/24 Yes YADIRA Jj calcium carb-cholecalciferol 600-400 MG-UNIT Tab tablet 1 tablet daily. Doc [facility] hydroCHLOROthiazide (MICROZIDE) 12.5 MG capsule Take 1 capsule (12.5 mg total) by mouth daily. Default History Genericprovider PAST MEDICAL HISTORY: Past Medical History: Diagnosis Date Diverticulitis Hypertension 06/05/2012 Onychomycosis Scabies Tinea corporis Tinea cruris PAST SURGICAL HISTORY: Past Surgical History: Procedure Laterality Date ABDOMINAL SURGERY 03/09/2021 gastric sleeve APPENDECTOMY COLONOSCOPY N/A 08/09/2019 COLONOSCOPY WITH polypectomy of sigmoid and rectum via hot forcep performed by Kathy Bailey MD at [facility] HYSTERECTOMY FAMILY HISTORY: Family History Problem Relation Name Age of Onset Hypertension Father Stroke Father None Mother SOCIAL HISTORY: Social History Tobacco Use Smoking status: Former Packs/day: .25 Types: Cigarettes Quit date: 08/09/2010 Years since quittin.4 Smokeless tobacco: Never Vaping Use Vaping Use: Never used Substance Use Topics Alcohol use: Yes Alcohol/week: 5.0 standard drinks of alcohol Types: 3 Glasses of wine per week Drug use: No Physical Exam Filed Vitals: 01/08/24 1246 BP: 120/88 Pulse: 70 Resp: 18 Temp: 97.8 ??F (36.6 ??C) SpO2: 99% Weight: 72.6 kg (160 lb) Height: 1.6 m (5' 3 ) Physical Exam Vitals and nursing note reviewed. Constitutional: Appearance: Normal appearance. She is well-developed. Comments: Nontoxic appearing HENT: Head: Normocephalic and atraumatic. Nose: Nose normal. Mouth/Throat: Mouth: Mucous membranes are moist. Pharynx: Oropharynx is clear. Eyes: Conjunctiva/sclera: Conjunctivae normal. Cardiovascular: Rate and Rhythm: Normal rate and regular rhythm. Pulses: Normal pulses. Heart sounds: Normal heart sounds. Pulmonary: Effort: Pulmonary effort is normal. No respiratory distress. Breath sounds: Normal breath sounds. Chest: Chest wall: Tenderness (reproducible right chest pain. no skin changes. no step off, skin tenting, crepitus) present. Abdominal: General: Bowel sounds are normal. There is no distension. Palpations: Abdomen is soft. Tenderness: There is no abdominal tenderness. Musculoskeletal: General: Normal range of motion. Cervical back: Normal range of motion and neck supple. Skin: General: Skin is warm and dry. Capillary Refill: Capillary refill takes less than 2 seconds. Neurological: General: No focal deficit present. Mental Status: She is alert and oriented to person, place, and time. Psychiatric: Mood and Affect: Mood normal. Behavior: Behavior normal. Diagnostic Studies / Procedures ELECTROCARDIOGRAMS: Results for orders placed or performed during the hospital encounter of 01/08/24 [address] [facility] [address] [place] [address] Test Date: 2024-01-08 Pat Name: MARIA DEL CARMEN CERVANTES Department: 41 Room: [place] [address] Gender: Female Emergency Department: : 1975 Requested By: AVA DURHAM Order Number: [id number] Reading MD: Neil Augustin Measurements Intervals [place] Rate: 54 P: 63 GA: 154 QRS: 42 QRSD: 86 T: 40 QT: 446 QTc: 423 Interpretive Statements SINUS BRADYCARDIA Compared to ECG 01/01/2023 00:21:51 Sinus rhythm no longer present NING PROGRAM ASSISTANT LABORATORY STUDIES: Results for orders placed or performed during the hospital encounter of 01/08/24 CORONAVIRUS (COVID 19) Specimen: NASAL Result Value Ref Range CORONAVIRUS SARS COV 2 RNA NEGATIVE NEGATIVE Specimen Type NASAL INFLUENZA A & B, RAPID Specimen: NASAL Result Value Ref Range Specimen Type NASAL INFLUENZA A NEGATIVE NEGATIVE INFLUENZA B NEGATIVE NEGATIVE RAPID STREP A Specimen: THROAT Result Value Ref Range Specimen Type THROAT RAPID STREP TEST NEGATIVE NEGATIVE IMAGING STUDIES XR CHEST PA+LAT Final Result by User, [id number] (01/07 1331) PATIENT NAME: MARIA DEL CARMEN CERVANTES EXAM: Chest 2 view DATE OF EXAM: 01/08/2024 COMPARISON EXAM: 12/24/2022 INDICATION: Cough TECHNIQUE: PA and lateral chest FINDINGS: Heart size within normal limits. Pulmonary vasculature unremarkable. No focal pulmonary parenchymal opacity. No pleural effusion. No hyperinflation. IMPRESSION: 1. NO RADIOGRAPHIC EVIDENCE OF ACTIVE DISEASE THE CHEST. Signed: Dionicio Ribeiro MD Referred By: Interpreted By: Dionicio Ribeiro MD, 01/08/2024 1:29 PM ED Course / Medical Decision Making MDM Amount and/or Complexity of Data Reviewed Clinical lab tests: reviewed Tests in the radiology section of CPT??: reviewed ED Course as of 01/08/24 1432 Sun Jan 08, 2024 1320 SpO2: 99 % [AD] 1320 Pulse: 70 PERC neg making PE unlikely [AD] 1343 XR CHEST PA+LAT Per rad read: NO RADIOGRAPHIC EVIDENCE OF ACTIVE DISEASE THE CHEST. [AD] 1414 ECG 12 lead EKG 1400 sinus bradycardia rate 54 bpm GA 154 QTc 431 no STEMI. No ischemic changes. [AD] 1425 RAPID STREP TEST: NEGATIVE Strep negative. No signs of peritonsillar or retropharyngeal abscess. No excessive drooling/tripoding to suggest uvulitis or epiglottis. Able to tolerate PO. [AD] 1425 INFLUENZA B: NEGATIVE [AD] 1425 INFLUENZA A: NEGATIVE [AD] 1425 CORONAVIRUS SARS COV 2 RNA: NEGATIVE [AD] 1431 Nontoxic-appearing patient presents for flulike/cold-like symptoms. No signs of toxicity. No signs of respiratory distress or hypoxia. Physical exam is benign. CXR negative.EKG without acute ST changes. Atypical for ACS, more likely URI given other cold like symptoms. Given duration of symptoms, suspect viral etiology. Given well appearance of patient, plan for conservative measures and close f/u with PCP. Strict verbal return precautions reviewed. Patient expresses verbal understanding and agreement with plan. All questions answered to the best of my ability. Teachback performed by patient. Nontoxic exit exam. Patient discharged home in stable condition. [AD] ED Course User Index [AD] YADIRA Jj Medications - No data to display Clinical Impression Viral URI with cough (Primary) Current Discharge Medication List START taking these medications Details benzonatate (TESSALON PERLES) 100 MG capsule Take 1 capsule (100 mg total) by mouth 3 (three) timesdaily as needed. Qty: 15 capsule, Refills: 0 Class: Eprescribe Pharmacy: [facility] #[id number] - [address] AT [facility] [address] (Ph #: [phone]) fluticasone propionate (FLONASE) 50 MCG/ACT nasal spray 1-2 sprays by Nasal route daily. 1-2 spraysin each nostril qd; Start: 2 sprays in each nostril qd x1wk; Max: 2 sprays in each nostril/day Qty: 16 g, Refills: 0 Class: Eprescribe Pharmacy: [facility] #[id number] - [facility] [address] [place] [address] AT [facility] [address] (Ph #: [phone]) Disposition: Discharge Follow-Up: Kaylee Norman MD [address] [facility] [address] YADIRA JJ 01/08/2024 YADIRA Jj 01/08/24 1433 Cosigned by Kayla Tang MD at 01/08/2024 2:43 PM TRAINING PROGRAM ASSISTANT NING PROGRAM ASSISTANT NING PROGRAM ASSISTANT * Opal Cuevas RN - 01/08/2024 12:53 PM CST 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 Patient reports feeling increasingly SOB. Vitals stable at this time. A&Ox4. NING PROGRAM ASSISTANT documented in this encounter Plan of Treatment Not on file documented as of this encounter Procedures Procedure Name Priority Date/Time Associated Diagnosis Comments ECG 12-LEAD STAT 01/08/2024 2:00 PM TRAINING PROGRAM ASSISTANT RAPID STREP A STAT 01/08/2024 1:57 PM TRAINING PROGRAM ASSISTANT XR CHEST PA+LAT STAT 01/08/2024 1:20 PM TRAINING PROGRAM ASSISTANT CORONAVIRUS (COVID 19) STAT 01/08/2024 1:16 PM TRAINING PROGRAM ASSISTANT INFLUENZA A & B STAT 01/08/2024 1:16 PM TRAINING PROGRAM ASSISTANT documented in this encounter Results * ECG 12 lead (01/08/2024 2:00 PM TRAINING PROGRAM ASSISTANT) 01/08/2024 2:00 PM TRAINING PROGRAM ASSISTANT Narrative [facility] ([facility]) RAD - 01/08/2024 2:01 PM TRAINING PROGRAM ASSISTANT ?[place]`delvis Chen ? [address] [place] ? Test Date: ?2024-01-08 Pat Name: ? MARIA DEL CARMEN CERVANTES ?Department: ?? 41 ? Room: ? [id number] Gender: ? Female ? Emergency Department: ?? : ?1975 ? Requested By: AVA DURHAM Order Number: [id number] ? Reading MD: ?? Neil Augustin ? Measurements Intervals ?[place] ? Rate: ? 54 ? P: ?63 GA: ? 154 ?QRS: ?42 QRSD: ? 86 ? T: ?40 QT: ? 446 ? QTc: ?423 ? Interpretive Statements SINUS BRADYCARDIA Compared to ECG 01/01/2023 00:21:51 Sinus rhythm no longer present NING PROGRAM ASSISTANT Procedure Note Neil Augustin MD - 01/08/[address] [facility] [address] Test Date: 2024-01-08 Pat Name: MARIA DEL CARMEN CERVANTES Department: 41 Room: [place] [address] Gender: Female Emergency Department: : 1975 Requested By: AVA DURHAM Order Number: [id number] Reading MD: Neil Augustin Measurements Intervals [place] Rate: 54 P: 63 GA: 154 QRS: 42 QRSD: 86 T: 40 QT: 446 QTc: 423 Interpretive Statements SINUS BRADYCARDIA Compared to ECG 01/01/2023 00:21:51 Sinus rhythm no longer present NING PROGRAM ASSISTANT us Ava MAY ECG ORDERABLES Final Result [facility] RAD * RAPID STREP A (01/08/2024 1:57 PM TRAINING PROGRAM ASSISTANT) SPECIMEN TYPE THROAT 01/08/2024 1:57 PM TRAINING PROGRAM ASSISTANT [facility] RAPID STREP TEST NEGATIVE NEGATIVE 01/08/2024 2:17 PM TRAINING PROGRAM ASSISTANT [facility] STRUCTURE OF ANTERIOR PORTION OF NECK / Unknown 01/08/2024 1:57 PM TRAINING PROGRAM ASSISTANT Ava MAY MICROBIOLOGY - GENERAL ORDERA BLES Final Result [facility] [address] [place] [address], * XR CHEST PA+LAT (01/08/2024 1:20 PM TRAINING PROGRAM ASSISTANT) Anatomical Region Laterality Modality Chest Radiographic Rosi ging 01/08/2024 1:29 PM TRAINING PROGRAM ASSISTANT Impressions 01/08/2024 1:30 PM TRAINING PROGRAM ASSISTANT IMPRESSION: 1. ??NO RADIOGRAPHIC EVIDENCE OF ACTIVE DISEASE THE CHEST. Signed: Dionicio Ribeiro MD Referred By: ?? Interpreted By: Dionicio Ribeiro MD, 01/08/2024 1:29 PM Narrative 01/08/2024 1:30 PM TRAINING PROGRAM ASSISTANT PATIENT NAME: MARIA DEL CARMEN CERVANTES EXAM: Chest 2 view DATE OF EXAM: 01/08/2024 COMPARISON EXAM: 12/24/2022 INDICATION: Cough TECHNIQUE: PA and lateral chest FINDINGS: Heart size within normal limits. ??Pulmonary vasculature unremarkable. ??No focal pulmonary parenchymal opacity. ??No pleural effusion. ??No hyperinflation. Procedure Note Dionicio Ribeiro MD - 01/08/2024 PATIENT NAME: MARIA DEL CARMEN CERVANTES EXAM: Chest 2 view DATE OF EXAM: 01/08/2024 COMPARISON EXAM: 12/24/2022 INDICATION: Cough TECHNIQUE: PA and lateral chest FINDINGS: Heart size within normal limits. Pulmonary vasculatureunremarkable. No focal pulmonary parenchymal opacity. No pleuraleffusion. No hyperinflation. IMPRESSION: 1. NO RADIOGRAPHIC EVIDENCE OF ACTIVE DISEASE THE CHEST. Signed: Dionicio Ribeiro MD Referred By: Interpreted By: Dionicio Ribeiro MD, 01/08/2024 1:29 PM Estuardo MAY GENERAL IMAGING Final Resu lt * INFLUENZA A & B, RAPID (01/08/2024 1:16 PM TRAINING PROGRAM ASSISTANT) SPECIMEN TYPE NASAL 01/08/2024 1:49 PM TRAINING PROGRAM ASSISTANT [facility] INFLUENZA A NEGATIVE NEGATIVE 01/08/2024 2:18 PM TRAINING PROGRAM ASSISTANT [facility] INFLUENZA B NEGATIVE NEGATIVE 01/08/2024 2:18 PM TRAINING PROGRAM ASSISTANT [facility] Comment: Interpretation: Negative for Influenza A [...] a separate order. NASAL STRUCTURE / Unknown 01/08/2024 1:16 PM TRAINING PROGRAM ASSISTANT Estuardo MAY MICROBIOLOGY - GENERAL ORD ERABLES Final Result [facility] [address] [place] [address], [place] [phone] * CORONAVIRUS (COVID 19) (01/08/2024 1:16 PM TRAINING PROGRAM ASSISTANT) CORONAVIRUS SARS COV 2 RNA NEGATIVE NEGATIVE 01/08/2024 2:17 PM TRAINING PROGRAM ASSISTANT [facility] Comment: NEGATIVE RESULTS DO NOT RULE [...] QUALITATIVE DETECTION OF SARS-COV-2. SPECIMEN TYPE NASAL 01/08/2024 1:16 PM TRAINING PROGRAM ASSISTANT [facility] NASAL STRUCTURE / Unknown 01/08/2024 1:16 PM TRAINING PROGRAM ASSISTANT us Estuardo MAY MICROBIOLOGY - GENERAL ORD ERABLES Final Result [facility] [address] [place] [address], documented in this encounter Visit Diagnoses Diagnosis Viral URI with cough- Primary Acute upper respiratory infections of unspecified site documented in this encounter Additional Health Concerns Infection Onset Date Last Indicated Resolved Time COVID-19 Rule Out 01/08/2024 01/08/2024 01/08/2024 2:18 PM TRAINING PROGRAM ASSISTANT Assessment Noted Time PHQ-9 Depression Total Score: 2 07/17/20 20 9:06 AM CDT documented as of this encounter Care Teams Fitness Leader Relationship Specialty Start Date End Date None, Provider, PCP - General 05/06/21 10/27/24 documented as of this encounter
--- OUTSIDE RECORDS SUMMARY | 2024-11-04 23:01 | XMS_ITS | Encounter Summary ---
Author Organization [facility] Address [address] [place] [address]. [place], [place] [id number] [place] [address] Care Team Providers Care Regulatory And Compliance Technician Name Role Phone None, Provider Primary Care Provider Hayder bowles Encounter Details Date Type Department Care Team (Latest Contact Info) Description 06/01/2023 Travel Social History Tobacco Use Types Packs/Day [...] Author Status No 06/01/2019 2:55 AM CDT Acti ve * RETIRED Are you blind or do you have serious difficulty seeing, even when wearing glasses? Answer Date of Assessment Author Status No 06/01/2019 2:55 AM CDT Activ e * Do you have serious difficulty walking or climbing stairs? Answer Date of Assessment Author Status No 06/01/2019 2:55 AM CDT Teja Segundo RN Active * Do you [...] filedocumented in this encounter Additional Health Concerns Assessment Noted Time PHQ-9 Depression Total Score: 2 07/17/20 20 9:06 AM CDT documented as of this encounter Care Teams Regulatory And Compliance Technician Relationship Specialty Start Date End Date None, Provider, PCP - General 05/06/21 10/27/24 documented as of this encounter
--- OUTSIDE RECORDS SUMMARY | 2024-11-04 23:02 | XMS_ITS | Encounter Summary ---
Author Organization [facility] Address [facility] [place] [address] [place] [address] Care Team Providers Care Printer'S Assistant Name Role Phone Unavailable Primary Care Provider Unavailabl e Encounter Details Date Type Department Care Team (Latest Contact Info) Description 04/28/2021 Travel Social History Tobacco Use Types Packs/Day [...] on file Sexual Orientation Not on file COVID-19 Exposure Response Date Recorded In the last month, have you been in contact with someone who was confirmed or suspected to have Coronavirus / COVID-19? Unable to assess 04/28/2021 2:34 AM CDT documented as of this encounter [...] 2:55 AM Teja Adams RN Active * Do you have difficulty dressing or bathing? Answer Date of Assessment Author Status No 06/01/2019 2:55 AM MALUT Teja Segundo RN Active * Because of [...] Adams RN Active documented in this encounter Plan of Treatment Not on file documented as of this encounter Visit Diagnoses Not on filedocumented in this encounter Additional Health Concerns Assessment Noted Time PHQ-9 Depression Total Score: 2 07/17/20 20 9:06 AM CDT documented as of this encounter
--- OUTSIDE RECORDS SUMMARY | 2024-11-04 23:02 | XMS_ITS | Encounter Summary ---
Author Organization [facility] Address [facility]. [place], [place] [id number] [place] [address] Care Team Providers Care Photonics Engineering Technologist Name Role Phone Unavailable Primary Care Provider Unavailabl e Encounter Details Date Type Department Care Team (Latest Contact Info) Description 02/23/2021 Scan HEALTH INFO SRVCS Scanned, Documents Social History Tobacco Use Types Packs/Day Years [...]
--- OUTSIDE RECORDS SUMMARY | 2024-11-04 23:02 | XMS_ITS | Encounter Summary ---
Author Organization [facility] Address [address] [place] [address]. [place], [place] [address] [place] [address] Care Team Providers Care Therapy Tech Name Role Phone None, Provider MD Primary Care Provider Unavaila ble Reason for Visit * Reason Comments Hypertension Encounter Details Date Type Department Care Team (Late st Contact Info) Description 12/24/2022 12:45 PM PIANO AND ORGAN REFINISHER - 12/24/2022 2:48 PM PIANO AND ORGAN REFINISHER Emergency [facility] [place] [address] Radha Pedro NP [address] [id number] Hypertension Discharge Disposition: Home or Self Care (Routine [...] In the last 10 days, have domenica gunter been in contact with someone who was confirmed or suspected to have Coronavirus/COVID-19? No / Unsure 12/24/2022 11:38 AM PIANO AND ORGAN REFINISHER documented as of this encounter Last Filed Vital Signs Vital Sign Reading Time Taken Comments Blood Pressure 144/95 12/24/2022 11:43 AM PIANO AND ORGAN REFINISHER Pulse 63 12/24/2022 11:43 AM PIANO AND ORGAN REFINISHER Temperature 36.6 ??C (97.8 ??F) 12/24/2022 11:[address] Respiratory Rate 16 12/24/2022 11:43 AM PIANO AND ORGAN REFINISHER Oxygen Saturation 100% 12/24/2022 11:43 AM PIANO AND ORGAN REFINISHER Inhaled Oxygen Concentration - - Weight 73.9 kg (163 lb) 12/24/2022 11:43 AM PIANO AND ORGAN REFINISHER Height 154.9 cm (5' 1 ) 12/24/2022 11:43 AM PIANO AND ORGAN REFINISHER Body Mass Index 30.8 12/24/2022 11:43 AM PIANO AND ORGAN REFINISHER documented in this encounter Functional Status * [...] Adams RN Active documented in this encounter Medications at Time of Discharge calcium carb-cholecalcif trang 600-400 MG-UNIT Tab tablet 1 tablet daily. hydroCHLOROthiaz ren (MICROZIDE) 12.5 MG tablet Take 0.5 tablets (6.25 mg total) by mouth every morning for 30 days. 15 tablet 12/24/2022 3 hydrocortisone 1 % ointment Apply topically 2 (two) times daily. 28 g 09/26/2021 3 multivitamin with minerals liquid Take 15 mLs by mouth daily. 3 omeprazole 40 MG capsule TAKE 1 CAPSULE BY MOUTH DAILY BEFORE BREAKFAST FOR GERD 04/02/2021 3 documented as of this encounter ED Notes * Radha Pedro NP - 12/24/2022 11:47 AM CST [place] EMERGENCY DEPARTMENT ENCOUNTER Chief Complaint Chief Complaint Patient presents with ??? Hypertension History of Present Illness Provider at Bedside None Information from patient 47-year-old female who presents to the ED for evaluation of concerns about her blood pressure She was here last night and left bp was elevated at home and had it rechecked at work, still elevated. She has been on bp meds in the past but does not take them She has had gastric bypass and has lost 90 pounds. Medical History ALLERGIES: Allergies Allergen Reactions ??? Amoxicillin Rash MEDICATIONS: Prior to Admission medications Medication Sig Start Date End Date Taking? Authorizing Provider hydroCHLOROthiazide (MICROZIDE) 12.5 MG tablet Take 0.5 tablets (6.25 mg total) by mouth every morning for 30 days. 12/24/22 01/23/23 Yes Radha Pedro NP calcium carb-cholecalciferol 600-400 MG-UNIT Tab tablet 1 tablet daily. Doc [facility] hydrocortisone 1 % ointment Apply topically 2 (two) times daily. 09/26/21 Tashi Mesa MD multivitamin with minerals liquid Take 15 mLs by mouth daily. Doc [facility] omeprazole 40 MG capsule TAKE 1 CAPSULE BY MOUTH DAILY BEFORE BREAKFAST FOR GERD 04/02/21 Doc [facility] PAST MEDICAL HISTORY: Past Medical History: Diagnosis Date ??? Diverticulitis ??? Hypertension 06/05/2012 ??? Onychomycosis ??? Scabies ??? Tinea corporis ??? Tinea cruris PAST SURGICAL HISTORY: Past Surgical History: Procedure Laterality Date ??? ABDOMINAL SURGERY 03/09/2021 gastric sleeve ??? APPENDECTOMY ??? COLONOSCOPY N/A 08/09/2019 COLONOSCOPY WITH polypectomy of sigmoid and rectum via hot forcep performed by Kathy Bailey MD at [facility] ??? HYSTERECTOMY FAMILY HISTORY: Family History Problem Relation Name Age of Onset ??? Hypertension Father ??? Stroke Father ??? None Mother SOCIAL HISTORY: Social History Tobacco Use ??? Smoking status: Former Packs/day: 0.25 Types: Cigarettes Quit date: 08/09/2010 Years since quittin.3 ??? Smokeless tobacco: Never Vaping Use ??? Vaping Use: Never used Substance Use Topics ??? Alcohol use: Yes Alcohol/week: 5.0 standard drinks Types: 3 Glasses of wine per week ??? Drug use: No Review of Systems Review of Systems Respiratory: Negative for chest tightness and shortness of breath. Neurological: Positive for dizziness. All other systems reviewed and are negative. See HPI for further details. All systems negative except as marked. Physical Exam Filed Vitals: 12/24/22 1143 BP: (!) 144/95 Pulse: 63 Resp: 16 Temp: 97.8 ??F (36.6 ??C) TempSrc: Temporal SpO2: 100% Weight: 73.9 kg (163 lb) Height: 5' 1 (1.549 m) Physical Exam Constitutional: General: She is not in acute distress. Appearance: She is well-developed. HENT: Head: Normocephalic. Eyes: Pupils: Pupils are equal, round, and reactive to light. Cardiovascular: Rate and Rhythm: Normal rate and regular rhythm. Heart sounds: Normal heart sounds. No murmur heard. Pulmonary: Effort: Pulmonary effort is normal. Breath sounds: Normal breath sounds. Abdominal: General: Bowel sounds are normal. Palpations: Abdomen is soft. Tenderness: There is no abdominal tenderness. Musculoskeletal: Cervical back: Neck supple. Skin: General: Skin is warm and dry. Coloration: Skin is not pale. Neurological: General: No focal deficit present. Mental Status: She is alert and oriented to person, place, and time. Mental status is at baseline. Cranial Nerves: No cranial nerve deficit. Sensory: No sensory deficit. Motor: No weakness. Coordination: Coordination normal. Gait: Gait normal. Psychiatric: Mood and Affect: Mood normal. Behavior: Behavior normal. Thought Content: Thought content normal. Judgment: Judgment normal. Diagnostic Studies / Procedures ELECTROCARDIOGRAMS: Results for orders placed or performed during the hospital encounter of 12/24/22 [address] [facility] Test Date: 2022-12-24 Pat Name: MARIA DEL CARMEN CERVANTES Department: 41 Room: Gender: Female Jetting Machine Operator: [id number] : 1975 Requested By: RADHA PEDRO Order Number: [id number] Reading MD: Measurements Intervals [place] Rate: 55 P: 48 NM: 129 QRS: 24 QRSD: 105 T: 26 QT: 427 QTc: 409 Interpretive Statements SINUS BRADYCARDIA No previous ECG available for comparison EKG by my interpretation demonstrates SB rate 55 bpm With WTC 409, no ectopy, no ischemia and no prior ecg for comparison , reviewed and scribed by me. Final Read by Cards. LABORATORY STUDIES: Results for orders placed or performed during the hospital encounter of 12/24/22 CBC W/DIFF AUTOMATED Result Value Ref Range WBC 12.3 (H) 4.5 - 11.0 x10'3/uL RBC 4.51 4.20 - 5.40 x10'6/uL HGB 14.5 12.0 - 16.0 G/DL HCT 43.2 38.0 - 48.0 % MCV 95.8 81.0 - 99.0 FL MCH 32.2 (H) 27.0 - 31.0 PG MCHC 33.6 32.0 - 36.0 G/DL RDW 12.7 11.5 - 14.5 % PLT 215 130 - 400 x10'3/uL MPV 9.9 9.3 - 12.2 FL DIFFERENTIAL TYPE AUTOMATED DIFFERENTIAL NEUTROPHILS 77.4 % LYMPHOCYTES 17.4 % MONOCYTES 4.8 % EOSINOPHILS 0.0 % BASOPHILS 0.2 % IMMATURE GRANS 0.2 % ABS. NEUTROPHILS TOTAL 9.48 (H) 1.80 - 7.70 x10'3/uL ABS. LYMPHOCYTES 2.13 1.00 - 4.80 x10'3/uL ABS. MONOCYTES 0.59 0.24 - 0.86 x10'3/uL ABS. EOSINOPHILS 0.00 (L) 0.04 - 0.36 x10'3/uL ABS. BASOPHILS 0.02 0.01 - 0.08 x10'3/uL ABS. IMMATURE GRANULOCYTES 0.03 0.00 - 0.49 x10'3/uL COMPREHENSIVE METABOLIC PANEL Result Value Ref Range GLUCOSE 99 70 - 99 MG/DL BUN 27 (H) 7 - 18 MG/DL CREATININE S/P/B 0.80 0.55 - 1.02 MG/DL SODIUM 137 136 - 145 MMOL/L POTASSIUM 3.9 3.5 - 5.1 MMOL/L CHLORIDE S/P/B 104 100 - 108 MMOL/L CO2 25.3 21 - 32 MMOL/L CALCIUM 9.9 8.5 - 10.1 MG/DL BILIRUBIN TOTAL S/P/B 0.5 0.2 - 1.2 MG/DL TOTAL PROTEIN S/P/B 7.2 6.4 - 8.2 G/DL ALBUMIN S/P/B 3.8 3.4 - 5.0 G/DL AST 12 (L) 15 - 37 U/L ALT 22 14 - 55 U/L ALKALINE PHOSPHATASE S/P/B 66 50 - 136 U/L ANION GAP 7.7 5 - 15 MMOL/L BUN CREATININE RATIO 33.8 (H) 6 - 26 A/G RATIO 1.1 1.0 - 2.0 RATIO GFR ESTIMATE >90 >90 ML/MIN/1.73 M2 IMAGING STUDIES XR CHEST PORTABLE Final Result by User, [id number] (12/24 801) EXAM: XR CHEST PORTABLE DATE: 12/24/2022 12:58 PM COMPARISON: 12/14/2018 INDICATION: Hypertension TECHNIQUE: One view FINDINGS: Normal heart and pulmonary vessel size. The lungs are clear. Normal appearance of the bones. IMPRESSION: Normal exam. Referred By: Interpreted By: Randy Colorado MD, 12/24/2022 1:13 PM ED Course / Medical Decision Making single view cxr, heart size normal, no infiltrate, no pneumothorax. Labs Normal. Pulse Ox Interpretation: Saturation: 100 (%) Oxygen Delivery: room air Interpretation: No acute hypoxia at this time. Data reviewed: All current, pertinent and timely studies (laboratory, imaging, and procedures) wereordered and results reviewed by No att. providers found unless otherwise noted. Triage notes and available nursing notes reviewed. Previous medical record reviewed when available. Repeat vital signs reviewed. Medications - No data to display Clinical Impression Hypertension (Primary) Discharge Medication List as of 12/24/2022 2:48 PM START taking these medications Details hydroCHLOROthiazide (MICROZIDE) 12.5 MG tablet Take 0.5 tablets (6.25 mg total) by mouth every morning for 30 days., Starting Tue12/24/2022, Until Tue01/23/2023, Eprescribe Class: Eprescribe Pharmacy: [id number] - [address] AT [facility] [address] (Ph #: [phone]) Disposition: Discharge Follow-Up: Provider Tania, Use of Dragon for dictation, please excuse any sound alike words. Radha Pedro NP 12/24/221852 Cosigned by Enio [place] MD at 12/25/2022 7:46 AM PIANO AND ORGAN REFINISHER O AND ORGAN REFINISHER O AND ORGAN REFINISHER * Jeny Davila RN - 12/24/2022 11:45 AM CST Pt ambulated to the Er with co hypertension. Pt had her co-worker check her BP, and it was high . Pt is AOx4. O AND ORGAN REFINISHER documented in this encounter Plan of Treatment Not on file documented as of this encounter Procedures Procedure Name Priority Date/Time Associated Diagnosis Comments COMPREHENSIVE METABOLIC PANEL STAT 12/24/2022 1:32 PM PIANO AND ORGAN REFINISHER CBC W/DIFF AUTOMATED STAT 12/24/2022 1:32 PM PIANO AND ORGAN REFINISHER XR CHEST PORTABLE STAT 12/24/2022 12: 58 PM PIANO AND ORGAN REFINISHER ECG 12-LEAD Routine 12/24/2022 12:51 PM PIANO AND ORGAN REFINISHER documented in this encounter Results * (ABNORMAL) COMPREHENSIVE METABOLIC PANEL (12/24/2022 1:32 PM PIANO AND ORGAN REFINISHER) [facility] GLUCOSE 99 70 - 99 MG/DL 12/24/2022 1:58 PM PIANO AND ORGAN REFINISHER [facility] BUN 27(H) 7 - 18 MG/DL 12/24/2022 1:58 PM PIANO AND ORGAN REFINISHER [facility] CREATININE S/P/B 0.80 0.55 - 1.02 MG/DL 12/24/2022 1:58 PM PIANO AND ORGAN REFINISHER [facility] SODIUM S/P/B 137 136 - 145 MMOL/L 12/24/2022 1:58 PM PIANO AND ORGAN REFINISHER [facility] POTASSIUM S/P/B 3.9 3.5 - 5.1 MMOL/L 12/24/2022 1:58 PM PIANO AND ORGAN REFINISHER [facility] CHLORIDE S/P/B 104 100 - 108 MMOL/L 12/24/2022 1:58 PM PIANO AND ORGAN REFINISHER [facility] CO2 25.3 21 - 32 MMOL/L 12/24/2022 1:58 PM [facility] CALCIUM S/P/B 9.9 8.5 - 10.1 MG/DL 12/24/2022 1:58 PM PIANO AND ORGAN REFINISHER [facility] BILIRUBIN TOTAL S/P/B 0.5 0.2 - 1.2 MG/DL 12/24/2022 1:58 PM PIANO AND ORGAN REFINISHER [facility] Comment: THIS ASSAY IS NOT RECOMMENDED FOR PATIENTS UNDERGOING TREATMENT WITH ELTROMBOPAG DUE TO THE POTENTIAL FOR FALSELY ELEVATED RESULTS. TOTAL PROTEIN S/P/B 7.2 6.4 - 8.2 G/DL 12/24/2022 1:58 PM PIANO AND ORGAN REFINISHER [facility] ALBUMIN S/P/B 3.8 3.4 - 5.0 G/DL 12/24/2022 1:58 PM PIANO AND ORGAN REFINISHER [facility] AST 12(L) 15 - 37 U/L 12/24/2022 1:58 PM PIANO AND ORGAN REFINISHER [facility] ALT 22 14 - 55 U/L 12/24/2022 1:58 PM PIANO AND ORGAN REFINISHER [facility] ALKALINE PHOSPHATASE S/P/B 66 50 - 136 U/L 12/24/2022 1:58 PM PIANO AND ORGAN REFINISHER [facility] ANION GAP 7.7 5 - 15 MMOL/L 12/24/2022 1:58 PM PIANO AND ORGAN REFINISHER [facility] BUN CREATININE RATIO 33.8(H) 6 - 26 12/24/2022 1:58 PM PIANO AND ORGAN REFINISHER [facility] A/G RATIO 1.1 1.0 - 2.0 RATIO 12/24/2022 1:58 PM PIANO AND ORGAN REFINISHER [facility] GFR ESTIMATE >90 >90 ML/MIN/1.7 3 M2 12/24/2022 1:58 PM PIANO AND ORGAN REFINISHER [facility] Comment: NOTE: eGFR is not calculated for patients <18 years of age. This is an estimated GFR calculation using the new CKD EPI creatinine equation without race and so does not require a correction factor for race. This estimated GFR should not be used for calculating drug doses. 12/24/2022 1:32 PM PIANO AND ORGAN REFINISHER Radha Pedro NP LABORATORY Final Result [facility] [address] [place] [address], * (ABNORMAL) CBC W/DIFF AUTOMATED (12/24/2022 1:32 PM PIANO AND ORGAN REFINISHER) WBC 12.3(H) 4.5 - 11.0 x10'3/uL 12/24/2022 1:41 PM PIANO AND ORGAN REFINISHER [facility] RBC 4.51 4.20 - 5.40 x10'6/uL 12/24/2022 1:41 PM [facility] HGB 14.5 12.0 - 16.0 G/DL 12/24/2022 1:41 PM [facility] HCT 43.2 38.0 - 48.0 % 12/24/2022 1:41 PM [facility] MCV 95.8 81.0 - 99.0 FL 12/24/2022 1:41 PM [facility] MCH 32.2(H) 27.0 - 31.0 PG 12/24/2022 1:41 PM [facility] MCHC 33.6 32.0 - 36.0 G/DL 12/24/2022 1:41 PM [facility] RDW 12.7 11.5 - 14.5 % 12/24/2022 1:41 PM [facility] PLT 215 130 - 400 x10'3/uL 12/24/2022 1:41 PM [facility] MPV 9.9 9.3 - 12.2 FL 12/24/2022 1:41 PM [facility] DIFFERENTIAL TYPE AUTOMATED DIFFERENTIAL 12/24/2022 1:41 PM [facility] NEUTROPHILS % 77.4 % 12/24/2022 1:41 PM [facility] LYMPHOCYTES % 17.4 % 12/24/2022 1:41 PM [facility] MONOCYTES % 4.8 % 12/24/2022 1:41 PM [facility] EOSINOPHILS 0.0 % 12/24/2022 1:41 PM [facility] BASOPHILS 0.2 % 12/24/2022 1:41 PM [facility] IMMATURE GRANS % 0.2 % 12/24/19 23 1:41 PM PIANO AND ORGAN REFINISHER [facility] ABS. NEUTROPHILS TOTAL 9.48(H) 1.80 - 7.70 x10'3/uL 12/24/2022 1:41 PM PIANO AND ORGAN REFINISHER [facility] ABS. LYMPHOCYTES 2.13 1.00 - 4.80 x10'3/uL 12/24/2022 1:41 PM PIANO AND ORGAN REFINISHER [facility] ABS. MONOCYTES 0.59 0.24 - 0.86 x10'3/uL 12/24/2022 1:41 PM PIANO AND ORGAN REFINISHER [facility] ABS. EOSINOPHILS 0.00(L) 0.04 - 0.36 x10'3/uL 12/24/2022 1:41 PM PIANO AND ORGAN REFINISHER [facility] ABS. BASOPHILS 0.02 0.01 - 0.08 x10'3/uL 12/24/2022 1:41 PM PIANO AND ORGAN REFINISHER [facility] ABS. IMMATURE GRANULOCYTES 0.03 0.00 - 0.49 x10'3/uL 12/24/2022 1:41 PM PIANO AND ORGAN REFINISHER [facility] 12/24/2022 1:32 PM PIANO AND ORGAN REFINISHER us Radha Pedro NP LABORATORY Final Result Performing Organization Address City/State/[facility] Co de Phone Number [facility] [address] [place] [address], * XR CHEST PORTABLE (12/24/2022 12:58 PM PIANO AND ORGAN REFINISHER) Anatomical Region Laterality Modality Chest Radiographic Rosi ging 12/24/2022 1:13 PM PIANO AND ORGAN REFINISHER Impressions 12/24/2022 1:15 PM PIANO AND ORGAN REFINISHER IMPRESSION: Normal exam. Referred By: ?? Interpreted By: Randy Colorado MD, 12/24/2022 1:13 PM Narrative 12/24/2022 1:15 PM PIANO AND ORGAN REFINISHER EXAM: XR CHEST PORTABLE DATE: 12/24/2022 12:58 PM COMPARISON: 12/14/2018 INDICATION: Hypertension TECHNIQUE: One view FINDINGS: Normal heart and pulmonary vessel size. ??The lungs are clear. ??Normal appearance of the bones. Procedure Note Randy Colorado MD - 12/24/2022 EXAM: XR CHEST PORTABLE DATE: 12/24/2022 12:58 PM COMPARISON: 12/14/2018 INDICATION: Hypertension TECHNIQUE: One view FINDINGS: Normal heart and pulmonary vessel size. The lungs are clear.Normal appearance of the bones. IMPRESSION: Normal exam. Referred By: Interpreted By: Randy Colorado MD, 12/24/2022 1:13 PM Radha Pedro FLATBED DRIVER GENERAL IMAGING Final Result * ECG 12 lead (12/24/2022 12:51 PM PIANO AND ORGAN REFINISHER) 12/24/2022 12:5 1 PM PIANO AND ORGAN REFINISHER Narrative [facility] ([facility] - 12/24/2022 9:40 PM PIANO AND ORGAN REFINISHER ?Bald Knobsonia Chen ? [address] [place] ? Test Date: ?2022-12-24 Pat Name: ? MARIA DEL CARMENMARTY CERVANTES ?Department: ?? 41 ? Room: ? TG4 Gender: ? Female ? Jetting Machine Operator: ?? [id number] : ?1975 ? Requested By: RADHA PEDRO Order Number: [id number] ? Reading MD: ?? Neil Augustin ? Measurements Intervals ?[place] ? Rate: ? 55 ? P: ?48 NM: ? 129 ?QRS: ?24 QRSD: ? 105 ?T: ?26 QT: ? 427 ? QTc: ?409 ? Interpretive Statements SINUS BRADYCARDIA No previous ECG available for comparison Preliminary EKG interpretation by ED Physician No ischemic changes Radha Pedro APRN CRITICAL ALERT ISSUED ON 12-24-2022 13:02:56 O AND ORGAN REFINISHER Procedure Note Neil Augustin MD - 12/24/2022 [facility] [address] Test Date: 2022-12-24 Pat Name: MARIA DEL CARMEN CERVANTES Department: 41 Room: [facility] Gender: Female Jetting Machine Operator: [id number] : 1975 Requested By: RADHA PEDRO Order Number: [id number] Reading MD: Neil Augustin Measurements Intervals [place] Rate: 55 P: 48 NM: 129 QRS: 24 QRSD: 105 T: 26 QT: 427 QTc: 409 Interpretive Statements SINUS BRADYCARDIA No previous ECG available for comparison Preliminary EKG interpretation by ED Physician No ischemic changes Radha Pedro APRN CRITICAL ALERT ISSUED ON 12-24-2022 13:02:56 O AND ORGAN REFINISHER us Radha Pedro FLATBED DRIVER ECG ORDERABLES Final Result [facility] (ANG) [facility] documented in this encounter Visit Diagnoses Diagnosis Hypertension- Primary Unspecified essential hypertension documented in this encounter Additional Health Concerns Assessment Noted Time PHQ-9 Depression Total Score: 2 07/17/20 20 9:06 AM CDT documented as of this encounter Care Teams Therapy Tech Relationship Specialty Start Date End Date None, Provider, PCP - General 05/06/21 10/27/24 documented as of this encounter
--- OUTSIDE RECORDS SUMMARY | 2024-11-04 23:02 | XMS_ITS | Encounter Summary ---
Author Organization [facility] Address [address] [place] [address]. [place], [place] [address] [place] [address] Care Team Providers Care Museum Tour Guide Name Role Phone None, Provider Primary Care Provider Unavaila ble Encounter Details Date Type Department Care Team (Latest Contact Info) Description 05/20/2021 Scan [facility] SRVCS Scanned, Documents Social History [...] have Coronavirus / COVID-19? No / Unsure 05/06/2021 1:50 PM CDT documented as of this encounter [...] documented as of this encounter Care Teams Museum Tour Guide Relationship Specialty Start Date End Date None, Provider, PCP - General 05/06/21 10/27/24 documented as of this encounter
--- OUTSIDE RECORDS SUMMARY | 2024-11-04 23:02 | XMS_ITS | Encounter Summary ---
Author Organization [facility] Address [address] [place] [address]. [place], [place] [id number] [place] [address] Care Team Providers Care Lead Blender Name Role Phone None, Provider Primary Care Provider Lenaa ble Encounter Details Date Type Department Care Team (Latest Contact Info) Description 06/10/2022 Scan [facility] SRVCS Scanned, Documents [...] documented as of this encounter Care Teams Lead Blender Relationship Specialty Start Date End Date None, Provider, PCP - General 05/06/21 10/27/24 documented as of this encounter
--- OUTSIDE RECORDS SUMMARY | 2024-11-04 23:02 | XMS_ITS | Encounter Summary ---
Author Organization [facility] Address [address] [place] [address]. [place], [place] [address] [place] [address] Care Team Providers Care Assistant Quality Manager Name Role Phone None, Provider MD Primary Care Provider Unavaila ble Encounter Details Date Type Department Care Team (Latest Contact Info) Description 09/09/2022 Scan [facility] SRVCS Scanned, Doc Med Group Social History Tobacco Use Types Packs/Day Years [...] suspected to have Coronavirus/COVID-19? No / Unsure 08/26/2022 5:37 PM CDT documented as of this encounter [...] documented as of this encounter Care Teams Assistant Quality Manager Relationship Specialty Start Date End Date None, Provider, PCP - General 05/06/21 10/27/24 documented as of this encounter
--- OUTSIDE RECORDS SUMMARY | 2024-11-04 23:02 | XMS_ITS | Encounter Summary ---
Author Organization [facility] Address [address] [place] [address]. [place], [place] [address] [place] [address] Care Team Providers Care Endbander Name Role Phone None, Provider Primary Care Provider Unavaila ble Encounter Details Date Type Department Care Team (Latest Contact Info) Description 01/03/2023 Scan [facility] DEFAULT Scanned, Doc Hospital Social History Tobacco Use Types Packs/Day Years [...] suspected to have Coronavirus/COVID-19? No / Unsure 01/01/2023 12:20 AM BUSH HOG OPERATOR documented as of this encounter Functional Status [...] documented as of this encounter Care Teams Endbander Relationship Specialty Start Date End Date None, Provider, PCP - General 05/06/21 10/27/24 documented as of this encounter
--- OUTSIDE RECORDS SUMMARY | 2024-11-04 23:02 | XMS_ITS | Encounter Summary ---
Author Organization [facility] Address [address] [place] [address]. [place] [address] [place] [address] Care Team Providers Care Advanced Research Programs Director Name Role Phone Unavailable Primary Care Provider Unavailabl e Reason for Visit * Reason Onset Date Comments Lab Results 06/30/2020 Encounter Details Date Type Department Care Team (Late st Contact Info) Description 06/30/2020 Telephone [facility] Family and Sports Medicine - [place] [address] [place] [address] Rose Marie Norton, JUAN JOSE [address] [place] [address] Lab Results Social History Tobacco Use Types Packs/Day Years Used Date Smoking Tobacco: Former Cigarettes Q uit: 08/09/2010 Smokeless Tobacco: Never Alcohol Use Standard Drinks/Week Comments Yes 0 (1 standard drink = 0.6 oz pur e alcohol) AUDIT-C Answer Date Recorded Frequency of Alcohol Consumption Never 05/03/2019 Average Number of Drinks Not on file 019 Frequency of Binge Drinking Not on file 04/08 Comments No Sex and Gender Information Value Date Recorded Sex Assigned at Not on file Legal Sex Female 6:50 PM CDT Gender Identity Not on file Sexual Orientation Not on file COVID-19 Exposure Response Date Recorded In the last month, have you been in contact with someone who was confirmed or suspected to have Coronavirus / COVID-19? No / Unsure 06/24/2020 3:25 PM CDT documented as of this encounter [...] Segundo RN Active documented in this encounter Progress Notes * Jamaica Goodrich - 06/30/2020 11:55 AM CDT Patient called and I shared with her the result of her lab. She expressed understanding. * Janett Miles CMA - 06/30/2020 11:04 AM CDT LMOM for pt to return call. * Janett Miles CMA - 06/30/2020 11:04 AM CDT ----- Message from Rose Marie Norton NP sent at 06/29/2020 8:02 AM CDT ----- No ventura barrios' documented in this encounter Plan of Treatment Not on file documented as of this encounter Visit Diagnoses Not on filedocumented in this encounter
--- OUTSIDE RECORDS SUMMARY | 2024-11-04 23:02 | XMS_ITS | Encounter Summary ---
Author Organization [facility] Address [address] [place] [address]. [place], [place] [id number] [place] [id number] Care Team Providers Care Medical Service Technician Name Role Phone Unavailable Primary Care Provider Unavailabl e Reason for Visit * Reason Comments Procedure (SCAN) Encounter Details Date Type Department Care Team ([facility] [place] Contact Info) Description 03/09/2021 Scan HEALTH INFO [facility] Scanned, Documents Procedure (SCAN) Social History Tobacco Use Types Packs/Day Years [...] Procedure Name Priority Date/Time Associated Diagnosis Comments PROCEDURE GENERIC (SCAN ORDER) 03/09/2021 documented in this encounter Results * PROCEDURE GENERIC (03/09/2021) 03/09/2021 Narrative 03/09/2021 Ordered by an unspecified provider. us Documents Scanned SCANNING Final Result documented in this encounter Visit Diagnoses Not on filedocumented in this encounter Additional Health Concerns Assessment Noted Time PHQ-9 Depression Total Score: 2 07/17/20 20 9:06 AM CDT documented as of this encounter
--- OUTSIDE RECORDS SUMMARY | 2024-11-04 23:02 | XMS_ITS | Encounter Summary ---
Author Organization [facility] Address [address] [place] [address]. [place] [address] [place] [address] Care Team Providers Care Client Service Coordinator Name Role Phone Unavailable Primary Care Provider Unavailabl e Reason for Visit * Reason Onset Date Comments Breast Problem 07/17/2020 Encounter Details Date Type Department Care Team (Late st Contact Info) Description 07/17/2020 Telephone [facility] Family and Sports Medicine - [place] [address] [place] [address] Rose Marie Norton, JUAN JOSE [address] [place] [address] Breast Problem Social History Tobacco Use Types Packs/Day Years [...] have Coronavirus / COVID-19? No / Unsure 07/17/2020 8:29 AM CDT documented as of this encounter [...] No 06/01/2019 2:55 AM CDT Teja Segundo R N Active documented as of this encounter Mental Status * Because of a physical, mental, or emotional condition, do you have serious difficulty concentrating, remembering, or making decisions? Answer Entry Date Author Status No 06/01/2019 2:55 AM CDT Teja Segundo RN Active documented in this encounter Progress Notes * Liliam Florian MA - 07/17/2020 1:17 PM CDT Spoke with patient. * Liliam Florian MA - 07/17/2020 1:16 PM CDT New order sent to [facility] * Jamaica Goodrich - 07/17/2020 10:02 AM CDT Patient states that she went to schedule the mammogram. They told her it needs to be a diagnostic mammogram due to the tenderness she is experiencing in her breast. This is for the left breast. documented in this encounter Plan of Treatment Not on file documented as of this encounter Visit Diagnoses Diagnosis Breast pain- Primary Mastodynia documented in this encounter Additional Health Concerns Assessment Noted Time PHQ-9 Depression Total Score: 2 07/17/20 20 9:06 AM CDT documented as of this encounter
--- OUTSIDE RECORDS SUMMARY | 2024-11-04 23:02 | XMS_ITS | Encounter Summary ---
Author Organization [facility] Address [address] [place] [address]. [place] [address] [place] [address] Care Team Providers Care Steam Hammer Operator Name Role Phone Unavailable Primary Care Provider Unavailabl e Reason for Visit * Reason Onset Date Comments Pre-visit Gap Closure 07/11/2020 Encounter Details Date Type Department Care Team (Late st Contact Info) Description 07/11/2020 Telephone [facility] Medical [facility] Family and Sports Medicine - [place] [address] [place] [address] Rose Marie Norton, JUAN JOSE [address] [place], [place] [phone] Pre-visit Gap Closure Social History Tobacco Use Types Packs/Day Years [...] 04/08 PHQ-2 Answer Date Recorded PHQ-2 Score 0 07/11/2020 Comments No Sex and Gender Information Value [...] documented in this encounter Progress Notes * Melba Modi MA - 07/11/2020 8:21 AM CDT Contacted patient for pre-visit gap closure. I am calling this patient as a patient advocate for the [employer]. My direct extension is [phone]. You can also reach me at: [phone] ([facility]) OR [phone] (JERROD) documented in this encounter Plan of Treatment Not on file documented as of this encounter Visit Diagnoses Not on filedocumented in this encounter
--- OUTSIDE RECORDS SUMMARY | 2024-11-04 23:02 | XMS_ITS | Encounter Summary ---
Author Organization [facility] Address [address] [place] [address]. [place] [address] [place] [address] Care Team Providers Care Creative/Art Director Name Role Phone Unavailable Primary Care Provider Unavailabl e Reason for Visit * Reason Comments Follow Up still having ear jade n, right side, starting to go to the left Encounter Details Date Type Department Care Team (Late st Contact Info) Description 10/27/2020 8:00 AM SYSTEMS SOFTWARE SPECIALIST Office Visit [facility] Family and Sports Medicine - [place] [address] [place] [address] Rose Marie Ramirez, REGIONAL ENGINEER [address] [employer], [place] [id number] Follow Up (still having ear pain, right side, starting to go to the left) Social History Tobacco Use Types Packs/Day Years Used Date Smoking Tobacco: Former Cigarettes Q uit: 08/09/2010 Smokeless Tobacco: Never Tobacco Cessation:Counseling Given: No Alcohol Use Standard Drinks/Week Comments Yes 0 [...] have Coronavirus / COVID-19? No / Unsure 10/27/2020 7:36 AM SYSTEMS SOFTWARE SPECIALIST documented as of this encounter Last Filed Vital Signs Vital Sign Reading Time Taken Comments Blood Pressure 114/82 10/27/2020 7:54 AM SYSTEMS SOFTWARE SPECIALIST Pulse 66 10/27/2020 7:54 AM SYSTEMS SOFTWARE SPECIALIST Temperature 36.6 ??C (97.9 ??F) 10/27/2020 7:54 AM CS T Respiratory Rate 16 10/27/2020 7:54 AM SYSTEMS SOFTWARE SPECIALIST Oxygen Saturation 97% 10/27/2020 7:54 AM SYSTEMS SOFTWARE SPECIALIST Inhaled Oxygen Concentration - - Weight 118.6 kg (261 lb 6.4 oz) 10/27/2020 7:54 AM SYSTEMS SOFTWARE SPECIALIST Height 154.9 cm (5' 1 ) 10/27/2020 7:54 AM SYSTEMS SOFTWARE SPECIALIST Body Mass Index 49.39 10/27/2020 7:54 AM SYSTEMS SOFTWARE SPECIALIST documented in this encounter Functional Status * [...] 2:55 AM MALUT Teja Segundo RN Active documented as of this encounter Mental Status * Because of a physical, mental, or emotional condition, do you have serious difficulty concentrating, remembering, or making decisions? Answer Entry Date Author Status No 06/01/2019 2:55 AM Teja Adams RN Active documented in this encounter Progress Notes * Rose Marie Ramirez NP - 10/27/2020 8:00 AM CST Images from the original note were not included. [facility] [address], [address] [place] [address] OFFICE VISIT NOTE Encounter Date: 10/27/2020 Chief Complaint: Maria Del Carmen Ray is a 45-year-old female here for Follow Up (still having ear pain, right side, starting to go to the left) HPI Here with c/o ear pain of her right ear and now starting in the left. She did present to the ER 5 days ago and was given prednisone for OME. She states pain has not improved and is worse. No cold symptoms, no fevers. Review of Systems Constitutional: Negative. HENT: Positive for ear pain. Negative for congestion. Respiratory: Negative. Cardiovascular: Negative. Patient Active Problem List Diagnosis ??? Backache ??? Esophageal reflux ??? Obesity ??? Diverticulitis Past Medical History: Diagnosis Date ??? Diverticulitis ??? Hypertension 06/05/2012 ??? Onychomycosis ??? Scabies ??? Tinea corporis ??? Tinea cruris Past Surgical History: Procedure Laterality Date ??? APPENDECTOMY ??? COLONOSCOPY N/A 08/09/2019 COLONOSCOPY WITH polypectomy of sigmoid and rectum via hot forcep performed by Kathy Bailey MD at [facility] ??? HYSTERECTOMY Family History Problem Relation Name Age of Onset ??? Hypertension Father ??? Stroke Father ??? None Mother Social History Socioeconomic History ??? Marital status: [...] Tobacco Use ??? Smoking status: Former Smoker Packs/day: 0.25 Types: Cigarettes Quit date: 08/09/2010 Years since quittin.2 ??? Smokeless tobacco: Never Used Substance and Sexual Activity ??? Alcohol use: Yes Frequency: Never ??? Drug use: No ??? Sexual activity: Not on file Lifestyle ??? Physical activity Days per week: Not on file Minutes per session: Not on file ??? Stress: Not on file Relationships ??? Social connections Talks on phone: Not on file Gets together: Not on file Attends christian service: Not on file Active member of [...] Social History Narrative ??? Not on file There is no immunization history for the selected administration types on file for this patient. Current Outpatient Medications Medication Sig Dispense Refill ??? cefdinir 300 MG Cap capsule Take 2 capsules (600 mg total) by mouth daily. 20 capsule 0 ??? ibuprofen 600 MG tablet Take 1 tablet (600 mg total) by mouth every 6 (six) hours as needed. 30tablet 0 ??? methylPREDNISolone, [place], 4 MG tablet MEDROL dose pack as directed 1 each 0 No current facility-administered medications for this visit. Allergies Allergen Reactions ??? Amoxicillin Rash Objective: Vitals: 10/27/20 0754 BP: 114/82 Pulse: 66 Resp: 16 Temp: 97.9 ??F (36.6 ??C) SpO2: 97% Body mass index is 49.39 kg/m??. Physical Exam Constitutional: She is well-developed, well-nourished, and in no distress. HENT: Head: Normocephalic. Right Ear: External ear and ear canal normal. A middle ear effusion is present. Left Ear: External ear and ear canal normal. A middle ear effusion is present. Cardiovascular: Normal rate, regular rhythm and normal heart sounds. Pulmonary/Chest: Effort normal and breath sounds normal. Lymphadenopathy: Head (right side): Tonsillar adenopathy present. Head (left side): Tonsillar adenopathy present. Psychiatric: Mood and affect normal. Assessment/Plan: 1. Lymphadenopathy - cefdinir 300 MG Cap capsule; Take 2 capsules (600 mg total) by mouth daily. Dispense: 20 capsule;Refill: 0 ROSE MARIE RAMIREZ NP Cosigned by Iglesia Little MD at 10/28/2020 10:17 AM SYSTEMS SOFTWARE SPECIALIST EMS SOFTWARE SPECIALIST EMS SOFTWARE SPECIALIST documented in this encounter Plan of Treatment Not on file documented as of this encounter Visit Diagnoses Diagnosis Lymphadenopathy- Primary Enlargement of lymph nodes documented in this encounter Additional Health Concerns Assessment Noted Time PHQ-9 Depression Total Score: 2 07/17/20 20 9:06 AM CDT documented as of this encounter
--- OUTSIDE RECORDS SUMMARY | 2024-11-04 23:02 | XMS_ITS | Encounter Summary ---
Author Organization [facility] Address [address] [place] [address]. [place] [address] [place] [address] Care Team Providers Care Trash Collector Name Role Phone Unavailable Primary Care Provider Unavailabl e Encounter Details Date Type Department Care Team (Latest Contact Info) Description 06/25/2020 5:56 PM CDT - 06/25/2020 11:59 PM CDT Hospital Encounter [facility] [place] [address] Rose Marie Norton NP [address] [place] [address] Discharge Disposition: Home or Self Care (Routine [...] Segundo RN Active documented in this encounter Medications at Time of Discharge nitrofurantoin, macrocrystal-mono hydrate, (MACROBID) 100 MG capsuleIndication s:Dysuria Take 1 capsule (100 mg total) by mouth 2 (two) times daily for 10 days. 20 capsule 06/24/2020 07/04/2020 omeprazole 20 MG capsuleIndication s:Gastroesophagea l reflux disease without esophagitis Take 1 capsule (20 mg total) by mouth daily. 30 capsule 1 03/17/2020 07/17/2020 Phentermine HCl 37.5 MG CapIndications:Cl ass 3 severe obesity due to excess calories without serious comorbidity with body mass index (BMI) of 40.0 to 44.9 in adult (CMS/HCC [facility]) Take 1 tablet by mouth every morning before breakfast. 30 capsule 01/04/2020 10/27/2020 documented as of this encounter Progress Notes * Rose Marie Norton NP - 06/25/2020 11:59 PM CDT No uti, dc abx' documented in this encounter Plan of Treatment Not on file documented as of this encounter Procedures Procedure Name Priority Date/Time Associated Diagnosis Comments URINE BACTERIA CULTURE Routine 06/25/2020 8:44 AM CDT Dysuria documented in this encounter Results * CULTURE URINE (06/25/2020 8:44 AM CDT) SPEC DESCRIPTION URINE CLEAN CATCH 06/25/2020 5:57 PM CDT [facility] SPECIAL REQUESTS NO SPECIAL REQUEST 06/25/2020 5:57 PM CDT [facility] CULTURE RESULT NO GROWTH 2 DAYS 06/28/2020 9:28 AM CDT [facility] URINE SPECIMEN OBTAINED BY CLEAN CATCH PROCEDURE / Unknown 06/25/2020 8:44 AM CDT 06/25/2020 6:07 PM CDT us Rose Marie Norton NP MICROBIOLOGY - GENERAL ORDERABLE S Final Result [facility] [address] [place] [address], [place] [phone] documented in this encounter Visit Diagnoses Diagnosis Dysuria documented in this encounter
--- OUTSIDE RECORDS SUMMARY | 2024-11-04 23:02 | XMS_ITS | Encounter Summary ---
Author Organization [facility] Address Replaced by [facility]. [place], [place] [address] [place] [address] Care Team Providers Care Flaking Roll Operator Name Role Phone None, Provider Primary Care Provider Unavaila ble Reason for Referral * Imaging (Emergency) - Closed Specialty Diagnoses / Procedures Referred By Contac t Referred To Contact RADIOLOGY Procedures CT ABD+PEL WO CON Cynthia Gonzalez PA [address] [address] Phone: tel: fax: Referral ID Status Reason Start Date Expiration Date Visits Re quested Visits Authorized [id number] Closed 05/06/2021 06/05/2022 1 1 Reason for Visit * Reason Comments Abdominal Pain Encounter Details Date Type Department Care Team (Latest Contact Info) Description 05/06/2021 1:54 PM CDT - 05/06/2021 3:20 PM CDT Hospital Encounter [facility] [address] [place] [address] Cynthia Gonzalez PA [address] [address] Abdominal Pain Discharge Disposition: Home or Self Care (Routine [...] Sign Reading Time Taken Comments Blood Pressure 119/71 05/06/2021 1:59 PM CDT Pulse 69 05/06/2021 1:59 PM CDT Temperature 36.8 ??C (98.3 ??F) 05/06/2021 1:59 PM CD T Respiratory Rate 16 05/06/2021 1:59 PM CDT Oxygen Saturation 98% 05/06/2021 1:59 PM CDT Inhaled Oxygen Concentration - - Weight 93.4 kg (206 lb) 05/06/2021 1:59 PM CDT Height 154.9 cm (5' 1 ) 05/06/2021 1:59 PM CDT Body Mass Index 38.92 05/06/2021 1:59 PM CDT documented in this encounter Functional Status * [...] Segundo RN Active documented in this encounter Discharge Instructions * Discharge Instructions* YADIRA Rich - 05/06/2021 3:19 PM CDT Thank you for giving us the opportunity to care for you today. If at any point you are becoming more ill, please call your doctor, return here, or go to the ER. You are always welcome back. If you have any questions about this visit, concerns about your symptoms, questions about your medications or other concerns, please give us a call... Our practice is committed to providing you the very best in healthcare. We want to hear from you! Please fill out the survey you get from us. Your feedback is anonymous & helps us improve the patient experience for you and others in the community we serve. - DEMI Moore, PA-C - Emergency Medicine Provider ADDITIONAL DISCHARGE INSTRUCTIONS: --Please follow all the instructions that we have discussed or are provided here. Take all medications as directed. --While the tests and exam we have performed at Urgent Care did not show anything dangerous or lifethreatening it is important for you to follow up with your doctor for further evaluation of your symptoms. It is also important to return to Urgent Care of the ER if your symptoms become worse or youhave new or further concerns. Medicine is an inexact science and many conditions cannot be diagnosed or completely treated during a single Urgent Care visit. Your treating healthcare provider(s) today feel your condition has been stabilized so further care as an outpatient is reasonable. Urgent care does not substitute for complete, ongoing, or follow-up care by your primary care physician or cons ultant. Please mention to your follow-up physician that you were at urgent care and request that they review your labs [...] such as many narcotic drug combinations and [id number] cold medicines. --Again, it was a pleasure taking care of you. * Attachments The following attachments cannot be sent through Care Everywhere. * Diverticulitis (Polish) documented in this encounter Medications at Time of Discharge calcium carb-cholecalciferol 600-400 MG-UNIT Tab tablet 1 tablet daily. cefUROXime 500 MG tabletIndications:Ac seneca diverticulitis Take 1 tablet (500 mg total) by mouth 2 (two) times daily for 10 days. 20 tablet 04/28/2021 HYDROcodone-acetamin ophen 5-325 MG tabletIndications:Ac seneca Pain < 3 Day Supply Take 1 tablet by mouth every 6 (six) hours as needed for Pain. Indications: Acute Pain < 3 Day Supply 7 tablet 04/28/2021 1 multivitamin with minerals liquid Take 15 mLs by mouth daily. 3 omeprazole 40 MG capsule TAKE 1 CAPSULE BY MOUTH DAILY BEFORE BREAKFAST FOR GERD 04/02/2021 3 ondansetron 4 MG disintegrating tabletIndications:Ac seneca diverticulitis Take 1 tablet (4 mg total) by mouth every 4 (four) hours as needed. 20 tablet 04/28/2021 1 Probiotic Product (ACIDOPHILUS/GOAT MILK) Cap Take 1 capsule by mouth daily. 02/27/2021 1 ursodiol 300 MG capsule Take 300 mg by mouth 2 (two) times daily. 02/27/2021 1 documented as of this encounter ED Notes * Chloe Alvarado RN - 05/06/2021 2:40 PM CDT Amb to CT with tech * YADIRA Rich - 05/06/2021 2:22 PM CDT [facility] [place], [place] HISTORICAL INFORMATION Primary Care Doctor: No primary care provider on file. Patient information was obtained primarily from the patient, nursing notes. History/Exam limitations: None Provider at Bedside Date/Time Event User Comments 05/06/21 1401 Provider at Bedside Assessing Patient CYNTHIA GONZALEZ CHIEF COMPLAINT Abdominal Pain Chief Complaint Patient presents with ??? Abdominal Pain HPI Maria Del Carmen Ray is a 45-year-old female who presents for lower cramping abdominal pain. Patient notes that she was seen in the emergency department on April 28 and had labs and CAT scan whichsuggested diverticulitis. She notes that she is on the last couple days (2-3 more) of her antibiotics but began having lower abdominal cramping again last night. She notes previous episodes of diverticulitis necessitating hospitalization. Notes that she has had a little discomfort at the end of urination but denies urinary frequency or urgency. Denies fevers. No nausea or vomiting. PAST MEDICAL HISTORY Past Medical History: Diagnosis Date ??? Diverticulitis ??? Hypertension 06/05/2012 ??? Onychomycosis ??? Scabies ??? Tinea corporis ??? Tinea cruris SURGICAL HISTORY Past Surgical History: Procedure Laterality Date ??? ABDOMINAL SURGERY 03/09/2021 gastric sleeve ??? APPENDECTOMY ??? COLONOSCOPY N/A 08/09/2019 COLONOSCOPY WITH polypectomy of sigmoid and rectum via hot forcep performed by Kathy Bailey MD at [facility] ??? HYSTERECTOMY CURRENT MEDICATIONS No current facility-administered medications for this encounter. Current Outpatient Medications: ??? calcium carb-cholecalciferol 600-400 MG-UNIT Tab tablet, 1 tablet daily., Disp: , Rfl: ??? multivitamin with minerals liquid, Take 15 mLs by mouth daily., Disp: , Rfl: ??? Probiotic Product (ACIDOPHILUS/GOAT MILK) Cap, Take 1 capsule by mouth daily., Disp: , Rfl: ??? ursodiol 300 MG capsule, Take 300 mg by mouth 2 (two) times daily., Disp: , Rfl: ??? cefUROXime 500 MG tablet, Take 1 tablet (500 mg total) by mouth 2 (two) times daily for 10 days., Disp: 20 tablet, Rfl: 0 ??? HYDROcodone-acetaminophen 5-325 MG tablet, Take 1 tablet by mouth every 6 (six) hours as neededfor Pain. Indications: Acute Pain < 3 Day Supply, Disp: 7 tablet, Rfl: 0 ??? omeprazole 40 MG capsule, TAKE 1 CAPSULE BY MOUTH DAILY BEFORE BREAKFAST FOR GERD, Disp: , Rfl: ??? ondansetron 4 MG disintegrating tablet, Take 1 tablet (4 mg total) by mouth every 4 (four) hours as needed., Disp: 20 tablet, Rfl: 0 ALLERGIES Allergies Allergen Reactions ??? Amoxicillin Rash FAMILY HISTORY Family History Problem Relation Name Age of Onset ??? Hypertension Father ??? Stroke Father ??? None Mother SOCIAL HISTORY Social History Socioeconomic History ??? Marital status: Single Spouse name: Not on file ??? Number of children: Not on file ??? Years of education: Not on file ??? Highest education level: Not on file Occupational History ??? Not on file Tobacco Use ??? Smoking status: Former Smoker Packs/day: 0.25 Types: Cigarettes Quit date: 08/09/2010 Years since quittin.7 ??? Smokeless tobacco: Never Used Substance and Sexual Activity ??? Alcohol use: Not Currently ??? Drug use: No ??? Sexual activity: Not on file Other [...] Gatherings with Friends and Family: ??? Attends Gnosticist Services: ??? Active Member of Clubs or Organizations: ??? Attends Club or Organization Meetings: ??? Marital Status: Intimate Partner Violence: ??? Fear of Current or Ex-Partner: ??? Emotionally Abused: ??? Physically Abused: ??? Sexually Abused: REVIEW OF SYSTEMS Constitutional: Denies fever, chills, weight loss or weakness. Skin: Denies rash. HEENT: Denies sore throat or ear pain. Respiratory: Denies cough or shortness of breath. Cardiovascular: Denies chest pain, palpitations or swelling. GI: +Lower abdominal pain. Denies nausea, vomiting, or diarrhea. : +Dysuria. Denies urinary frequency. Musculoskeletal: Denies back pain. Neurologic: Denies headache, focal weakness or sensory changes. Psychiatric: Denies depression, suicidal ideation or homicidal ideation. See HPI for further details. All systems negative except as marked. Physical Exam VITAL SIGNS: Filed Vitals: 05/06/21 1359 BP: 119/71 Pulse: 69 Resp: 16 Temp: 98.3 ??F (36.8 ??C) SpO2: 98% Weight: 93.4 kg (206 lb) Height: 5' 1 (1.549 m) Constitutional: Well developed, No acute distress, Non-toxic appearance. Integument: Warm, Dry, No erythema, No rash. HEENT: Normocephalic, Atraumatic, Conjunctiva normal Neck- Normal range of motion, Supple Back- Normal range of motion, No gross abnormality Respiratory: Normal breath sounds, No respiratory distress. Cardiovascular: Normal heart rate, Normal rhythm GI: Soft, Lower abdomen/suprapubic tenderness bilaterally, No rebound or guarding. Musculoskeletal: Good ROM, no deformities noted Neurologic: Alert & oriented x 3, No focal deficits noted. Psychiatric: Affect normal, Judgment normal, Mood normal. EKG (interpreted by ED provider) No results found for this visit on 05/06/21. LABORATORY Labs Reviewed URINALYSIS AUTO DIP RADIOLOGY CT ABD+PEL WO CON Final Result by User, [email or web address] (05/06 1510) EXAMINATION: CT Abdomen and Pelvis without contrast DATE: 05/06/2021 2:24 PM CLINICAL HISTORY: LOWER ABD PAIN; ON TX FOR DIVERTICULITIS FROM RECENT ER VISIT WITH MINIMAL IMPROVEMENT; LLQ ABDOMINAL PAIN COMPARISON: 04/28/2021 TECHNIQUE: Computed tomography of the abdomen and pelvis was obtained without administration of intravenous contrast according to routine protocol. A dose lowering technique was used for this procedure, which may include, but is not limited to, dose reduction technique, automated exposure control, the use of iterative reconstruction, and ALARA (As Low As Reasonably Achievable) / Image Gently techniques. FINDINGS: Bases of lungs are normal. Normal heart size. No significant pericardial effusion. The liver, spleen, pancreas, gallbladder, and adrenal glands are normal. No urolithiasis or hydronephrosis. Abdominal aortic ultrasound. No retroperitoneal hematoma. Peridiverticular fat stranding, proximal descending colon. No free air. No ascites. Uterus is absent. Ovaries not well visualized. No free pelvic fluid. No destructive bone lesions. IMPRESSION: 1. Diverticulitis, proximal descending colon, improved. 2. Previously described diverticulitis, distal transverse colon, resolved. Referred By: CYNTHIA GONZALEZ Interpreted By: Dima Manzanares MD, 05/06/2021 3:01 PM PROCEDURES Procedures MDM ED Course as of May 06 152 Wed May 06, 2021 1426 Discussed options for evaluation with pt-- advised on option of limited UC evaluation with noncontrasted CT which can often times evaluate diverticulitis but may miss other findings such as an abscess or other acute etiologies of symptoms. Pt very hesitant about going over to ER for completeevaluation with contrasted CT. She does not wish to wait for several hours. She understands the limitation of a noncontrasted scan and also understands that even with the noncontrasted scan she may ultimately still necessitate transfer to the ER but would like to proceed with having imaging done atUC. [HS] 1429 UA with trace blood but no leukocytes or nitrites. [HS] 1520 CT findings suggest diveritculitis resolved and/or improved. Discussed findings with pt and advised to continue remainder of abx 2-3 days which will hopefully complete treatment. Advised follow up with PCP and/or if symptoms worsen to go to ER. [HS] ED Course User Index [HS] YADIRA Rich I have discussed today's findings with the patient and provided information regarding the likely diagnosis. The patient has been given information regarding their treatment, follow up and concerning symptoms for which they should seek urgent or emergent attention. I have expressed the the importance of seeking attention should there be any new, or worsening symptoms or persistence of their condition. The patient is stable at discharge and has verbalized understanding of these instructions. Impression/Disposition SNOMED CT(R) 1. Diverticulitis DIVERTICULITIS Disposition: Discharge Medications - No data to display Current Discharge Medication List YADIRA RICH PA 05/06/21 1522 Cosigned by Mia Krueger MD at 05/06/2021 5:16 PM CDT * Chloe Alvarado RN - 05/06/2021 1:54 PM CDT Amb to uc, states seen on 04/28 for abd pain, did labs and CT: diverticulitis, almost finished withantibiotic, last night started with lower abd cramping. Hurts to walk, talk, urinate. pps 8/10, no pain meds today. States previous episode took flagyl and ceftriaxone/hospitalized. No pcp. Did eat this am. Denies urinary urgency or frequency, little pain at end of urination. H/o gastric sleeve 03/09/21. documented in this encounter Plan of Treatment Not on file documented as of this encounter Procedures Procedure Name Priority Date/Time Associated Diagnosis Comments CT ABD+PEL WO CON STAT 05/06/2021 2:5 5 PM CDT URINALYSIS AUTO DIP STAT 05/06/2021 2 :22 PM CDT documented in this encounter Results * CT ABD+PEL WO CON (05/06/2021 2:55 PM CDT) Anatomical Region Laterality Modality Abdomen Computed Tomogra phy 05/06/2021 3:01 PM CDT Impressions 05/06/2021 3:09 PM CDT IMPRESSION: 1. Diverticulitis, proximal descending colon, improved. 2. Previously described diverticulitis, distal transverse colon, resolved. Referred By: CYNTHIA GONZALEZ Interpreted By: Dima Manzanares MD, 05/06/2021 3:01 PM Narrative 05/06/2021 3:09 PM CDT EXAMINATION: CT Abdomen and Pelvis without contrast DATE: 05/06/2021 2:24 PM CLINICAL HISTORY: LOWER ABD PAIN; ON TX FOR DIVERTICULITIS FROM RECENT ER VISIT WITH MINIMAL IMPROVEMENT; LLQ ABDOMINAL PAIN COMPARISON: 04/28/2021 TECHNIQUE: Computed tomography of the abdomen and pelvis was obtained without administration of intravenous contrast according to routine protocol. A dose lowering technique was used for this procedure, which may include, but is not limited to, dose reduction technique, automated exposure control, the use of iterative reconstruction, and ALARA (As Low As Reasonably Achievable) / Image Gently techniques. FINDINGS: Bases of lungs are normal. Normal heart size. No significant pericardial effusion. The liver, spleen, pancreas, gallbladder, and adrenal glands are normal. No urolithiasis or hydronephrosis. Abdominal aortic ultrasound. No retroperitoneal hematoma. Peridiverticular fat stranding, proximal descending colon. No free air. No ascites. Uterus is absent. Ovaries not well visualized. No free pelvic fluid. No destructive bone lesions. Procedure Note Dima Manzanares MD - 05/06/2021 EXAMINATION: CT Abdomen and Pelvis without contrast DATE: 05/06/2021 2:24 PM CLINICAL HISTORY: LOWER ABD PAIN; ON TX FOR DIVERTICULITIS FROM RECENTER VISIT WITH MINIMAL IMPROVEMENT; LLQ ABDOMINAL PAIN COMPARISON: 04/28/2021 TECHNIQUE: Computed tomography of the abdomen and pelvis was obtained without administration of intravenous contrast according to routine protocol. A dose lowering technique was used for this procedure, whichmay include, but is not limited to, dose reduction technique, automated exposure control, the use of iterative reconstruction, and ALARA (As LowAs Reasonably Achievable) / Image Gently techniques. FINDINGS: Bases of lungs are normal. Normal heart size. No significant pericardial effusion. The liver, spleen, pancreas, gallbladder, and adrenal glands are normal.No urolithiasis or hydronephrosis. Abdominal aortic ultrasound. No retroperitoneal hematoma.Peridiverticular fat stranding, proximal descending colon. No free air. No ascites. Uterus is absent. Ovaries not well visualized. No free pelvic fluid. No destructive bone lesions. IMPRESSION: 1. Diverticulitis, proximal descending colon, improved. 2. Previously described diverticulitis, distal transverse colon,resolved. Referred By: CYNTHIA GONZALEZ Interpreted By: Dima Manzanares MD, 05/06/2021 3:01 PM Cynthia Gonzalez [place] CT Final Resul t * (ABNORMAL) URINALYSIS AUTO DIP (05/06/2021 2:22 PM CDT) SPECIMEN TYPE URINE CLEAN CATCH 05/06/2021 2:22 PM CDT [facility] COLOR (U) YELLOW 05/07/2021 8:14 AM CDT [facility] TRANSPARENCY CLEAR 05/07/2021 8:14 AM CDT [facility] SPECIFIC GRAVITY (U) >1.030(H) 1.001 - 1.030 05/07/2021 8:14 AM CDT [facility] U PH 6.0 5.0 - 9.0 05/07/2021 8:14 AM CDT [facility] LEUKOCYTES (U) NEGATIVE NEGATIVE 05/07/2021 8:14 AM CDT [facility] NITRITES NEGATIVE NEGATIVE 05/07/2021 8:14 AM CDT [facility] PROTEIN (U) NEGATIVE <30 MG/DL 05/07/2021 8:14 AM CDT [facility] URINE GLUCOSE NEGATIVE NEGATIVE MG/DL 05/07/2021 8:14 AM CDT [facility] KETONES MG/DL (U) 15(A) NEGATIVE MG/DL 05/07/2021 8:14 AM CDT [facility] UROBILINOGEN 0.2(A) NEGATIVE MG/DL 05/07/2021 8:14 AM CDT [facility] BILIRUBIN (U) SMALL(A) NEGATIVE MG/DL 05/07/2021 8:14 AM CDT [facility] BLOOD (U) TRACE(A) NEGATIVE 05/07/2021 8:14 AM CDT [facility] URINE SPECIMEN OBTAINED BY CLEAN CATCH PROCEDURE / Unknown 05/06/2021 2:22 PM CDT us Cynthia MAY URINE ORDERABLES Final Resu lt [place] [address] [place] [address], documented in this encounter Visit Diagnoses Diagnosis Diverticulitis- Primary Diverticulitis of colon (without mention of hemorrhage) documented in this encounter Additional Health Concerns Assessment Noted Time PHQ-9 Depression Total Score: 2 07/17/20 20 9:06 AM CDT documented as of this encounter Care Teams Flaking Roll Operator Relationship Specialty Start Date End Date None, Provider, PCP - General 05/06/21 10/27/24 documented as of this encounter
--- OUTSIDE RECORDS SUMMARY | 2024-11-04 23:02 | XMS_ITS | Encounter Summary ---
Author Organization [facility] Address [facility]. [place], [place] [address] [place] [address] Care Team Providers Care Scleroscope Tester Name Role Phone Unavailable Primary Care Provider Unavailabl e Encounter Details Date Type Department Care Team (Latest Contact Info) Description 06/24/2020 Travel Social History Tobacco Use Types Packs/Day [...]
--- OUTSIDE RECORDS SUMMARY | 2024-11-04 23:02 | XMS_ITS | Encounter Summary ---
Author Organization [facility] Address [address] [place] [address]. [place], [place] [address] [place] [address] Care Team Providers Care Graphics Programmer Name Role Phone Unavailable Primary Care Provider Unavailabl e Reason for Visit * Reason Comments Lab (SCAN) Encounter Details Date Type Department Care Team (Latest Contact Info) Description 12/18/2020 Scan [facility] Scanned, Documents Lab (SCAN) Social History Tobacco Use Types Packs/Day [...] Date Author Status No 06/01/2019 2:55 AM MALUT Teja Segundo RN Active documented in this encounter Plan of Treatment Not on file documented as of this encounter Procedures Procedure Name Priority Date/Time Associated Diagnosis Comments OUTSIDE LAB (SCAN ORDER) 12/18/2020 OUTSIDE LAB (SCAN ORDER) 12/18/2020 documented in this encounter Results * OUTSIDE LAB (SCAN) (12/18/2020) 12/18/2020 Narrative 12/18/2020 Ordered by an unspecified provider. us Documents Scanned SCANNING Final Result * OUTSIDE LAB (SCAN) (12/18/2020) 12/18/2020 Narrative 12/18/2020 Ordered by an unspecified provider. us Documents Scanned SCANNING Final Result documented in this encounter Visit Diagnoses Not on filedocumented in this encounter Additional Health Concerns Assessment Noted Time PHQ-9 Depression Total Score: 2 07/17/20 20 9:06 AM CDT documented as of this encounter
--- OUTSIDE RECORDS SUMMARY | 2024-11-04 23:02 | XMS_ITS | Encounter Summary ---
Author Organization [facility] Address [address] [place] [address]. [place] [address] [place] [address] Care Team Providers Care Youth Probation Officer Name Role Phone Unavailable Primary Care Provider Unavailabl e Reason for Visit * Reason Onset Date Comments FYI 07/17/2020 Encounter Details Date Type Department Care Team (Late st Contact Info) Description 07/17/2020 Telephone [facility] - [place] [address] [place] [address] Rose Marie Norton, JUAN JOSE [address] [place] [address] Social History Tobacco Use Types Packs/Day Years [...] encounter Progress Notes * Jamaica Goodrich - 07/17/2020 2:44 PM CDT Patient has 2 mammography orders. The [facility] Mamm is listed as DX: Breast pain and ispointed to ANG; patient has [place]. documented in this encounter Plan of Treatment Not on file documented as of this encounter Visit Diagnoses Not on filedocumented in this encounter Additional Health Concerns Assessment Noted Time PHQ-9 Depression Total Score: 2 07/17/20 20 9:06 AM CDT documented as of this encounter
--- OUTSIDE RECORDS SUMMARY | 2024-11-04 23:02 | XMS_ITS | Encounter Summary ---
Author Organization [facility] Address [address] [place] [address]. [place], [place] [address] [place] [address] Care Team Providers Care Tester Vibrator Equipment Name Role Phone Unavailable Primary Care Provider Unavailabl e Reason for Visit * Reason Comments Ultrasound (SCAN) Mammogram (SCAN) Encounter Details Date Type Department Care Team ([facility] Contact Info) Description 08/19/2020 Scan [facility] Scanned, Documents Ultrasound (SCAN); Mammogram (SCAN) Social History Tobacco Use Types Packs/Day [...] Procedure Name Priority Date/Time Associated Diagnosis Comments MAMMOGRAM GENERIC (SCAN ORDER) 08/19/2020 ULTRASOUND GENERIC (SCAN ORDER) 08/19/2020 documented in this encounter Results * MAMMOGRAM GENERIC (08/19/2020) Anatomical Region Laterality Modality Other 08/19/2020 Narrative 08/19/2020 Ordered by an unspecified provider. us Documents Scanned SCANNING Final Result * ULTRASOUND GENERIC (08/19/2020) Anatomical Region Laterality Modality Other 08/19/2020 Narrative 08/19/2020 Ordered by an unspecified provider. us Documents Scanned SCANNING Final Result documented in this encounter Visit Diagnoses Not on filedocumented in this encounter Additional Health Concerns Assessment Noted Time PHQ-9 Depression Total Score: 2 07/17/20 20 9:06 AM CDT documented as of this encounter
--- OUTSIDE RECORDS SUMMARY | 2024-11-04 23:02 | XMS_ITS | Encounter Summary ---
Author Organization [facility] Address [address] [place] [address]. [place], [place] [address] [place] [address] Care Team Providers Care Sample Display Preparer Name Role Phone None, Provider Primary Care Provider Hayder bowles Encounter Details Date Type Department Care Team (Latest Contact Info) Description 08/26/2022 Travel Social History Tobacco Use Types Packs/Day [...] documented as of this encounter Care Teams Sample Display Preparer Relationship Specialty Start Date End Date None, Provider, PCP - General 05/06/21 10/27/24 documented as of this encounter
--- OUTSIDE RECORDS SUMMARY | 2024-11-04 23:02 | XMS_ITS | Encounter Summary ---
Author Organization [facility] Address [address] [place] [address]. [place], [place] [id number] [place] [address] Care Team Providers Care [employer] Executive Director Name Role Phone Unavailable Primary Care Provider Unavailabl e Reason for Referral * Consultation/Treatment (Routine) - Closed Specialty Diagnoses / Procedures Referred By Veronica bonner Referred To Contact OTOLARYNGOLOGY Diagnoses Ear ache Rose Marie Ramirez NP [address] [place] [address] Phone: tel: fax: Ranulfo Duenas MD [address] [place] [address] Phone: tel: fax: Referral ID Status Reason Start Date Expiration Date Visits Re quested Visits Authorized [id number] Closed 11/04/2020 12/04/2021 100 100 ISION OPTICS TECHNICIAN Reason for Visit * Reason Onset Date Comments Other 11/04/2020 Still has ear pa in. Encounter Details Date Type Department Care Team (Late st Contact Info) Description 11/04/2020 Telephone [facility] [place] [address] [place] [address] Rose Marie Ramirez NP [address] [place] [address] Other (Still has ear pain.) Social History Tobacco Use Types Packs/Day Years [...] COVID-19? No / Unsure 10/27/2020 7:36 AM PRECISION OPTICS TECHNICIAN documented as of this encounter Functional [...] Notes * Rose Marie Ramirez NP - 11/04/2020 2:16 PM CSTAddended by: ROSE MARIE RAMIREZ on: 11/04/2020 02:16 PM Modules accepted: Orders ISION OPTICS TECHNICIAN * Janett Miles CMA - 11/04/2020 1:26 PM CST OK for referral? She has [employer] insurance? ISION OPTICS TECHNICIAN * Janet Black - 11/04/2020 12:08 PM CST When Maria Del Carmen called [facility] [phone], they told her that she needed a referral to be seen. They went a head and scheduled her appointment for 11-20-20. Please let Maria Del Carmen know if there is a problem with sending this referral. ISION OPTICS TECHNICIAN * Janett Miles CMA - 11/04/2020 11:53 AM CST Called and informed pt of [facility] number given ISION OPTICS TECHNICIAN * Rose Marie Ramirez NP - 11/04/2020 11:38 AM CST She can call [facility] in [place] herself and get in pretty quickly ISION OPTICS TECHNICIAN * Janet Black - 11/04/2020 10:40 AM CST Maria Del Carmen had an appointment on 10/27 for ear ache. Patient said she has been taking the prescribed medication and the swelling has gone down, but her ear still hurts (throbbing deep in ear). Per Rose Marie,I told patient that she will be called about going to see an ENT. ISION OPTICS TECHNICIAN documented in this encounter Plan of Treatment Scheduled Referrals Name Type Priority Associated Diagnoses Orde r Schedule Ambulatory referral to ENT Referral Routine Ear ache Ordered: 11/04/2020 documented as of this encounter Visit Diagnoses Diagnosis Ear ache- Primary documented in this encounter Additional Health Concerns Assessment Noted Time PHQ-9 Depression Total Score: 2 07/17/20 20 9:06 AM CDT documented as of this encounter
--- OUTSIDE RECORDS SUMMARY | 2024-11-04 23:02 | XMS_ITS | Encounter Summary ---
Author Organization [facility] Address [address] [place] [address]. [place], [place] [address] [place] [address] Care Team Providers Care Lumber Tripper Name Role Phone None, Provider Primary Care Provider Hayder bowles Encounter Details Date Type Department Care Team (Latest Contact Info) Description 12/24/2022 Travel Social History Tobacco Use Types Packs/Day [...] Coronavirus/COVID-19? No / Unsure 12/24/2022 11:38 AM FLOOR COVERINGS SALESPERSON documented as of this encounter Functional Status [...] documented as of this encounter Care Teams Lumber Tripper Relationship Specialty Start Date End Date None, Provider, PCP - General 05/06/21 10/27/24 documented as of this encounter
--- OUTSIDE RECORDS SUMMARY | 2024-11-04 23:02 | XMS_ITS | Encounter Summary ---
Author Organization [facility] Address [facility] [facility]. [place], [place] [address] [place] [address] Care Team Providers Care Hand Wood Sander Name Role Phone Unavailable Primary Care Provider Unavailabl e Encounter Details Date Type Department Care Team (Latest Contact Info) Description 07/17/2020 Travel Social History Tobacco Use Types Packs/Day [...]
--- OUTSIDE RECORDS SUMMARY | 2024-11-04 23:02 | XMS_ITS | Encounter Summary ---
Author Organization [facility] Address [address] [place] [address]. [place], [place] [address] [place] [address] Care Team Providers Care Fugitive Investigator Name Role Phone None, Provider Primary Care Provider Lenaa ble Encounter Details Date Type Department Care Team (Latest Contact Info) Description 01/01/2023 Scan [facility] DEFAULT Andre Bowles MD [address] [facility] [address] [address] Social History Tobacco Use Types Packs/Day Years [...] Coronavirus/COVID-19? No / Unsure 01/01/2023 12:20 AM EYEGLASS LENS GENERATOR documented as of this encounter Functional Status [...] documented as of this encounter Care Teams Fugitive Investigator Relationship Specialty Start Date End Date None, Provider, PCP - General 05/06/21 10/27/24 documented as of this encounter
--- OUTSIDE RECORDS SUMMARY | 2024-11-04 23:02 | XMS_ITS | Encounter Summary ---
Author Organization [facility] Address [address] [place] [address]. [place] [address] [place] [address] Care Team Providers Care Lens Assistant Name Role Phone None, Provider MD Primary Care Provider Unavaila ble Reason for Visit * Reason Comments Rash Encounter Details Date Type Department Care Team (Late st Contact Info) Description 09/26/2021 3:09 PM MICROFILM OPERATOR - 09/26/2021 3:50 PM [facility] Encounter [place] [address] [place] [address] Tashi Mesa MD [address] [place] [address] [place] [address] Rash Discharge Disposition: Home or Self Care (Routine [...] have Coronavirus / COVID-19? No / Unsure 09/26/2021 2:44 PM MICROFILM OPERATOR documented as of this encounter Last Filed Vital Signs Vital Sign Reading Time Taken Comments Blood Pressure 137/78 09/26/2021 3:12 PM MICROFILM OPERATOR Pulse 72 09/26/2021 3:12 PM MICROFILM OPERATOR Temperature 37 ??C (98.6 ??F) 09/26/2021 3:23 PM MICROFILM OPERATOR Respiratory Rate 18 09/26/2021 3:12 PM MICROFILM OPERATOR Oxygen Saturation 98% 09/26/2021 3:12 PM MICROFILM OPERATOR Inhaled Oxygen Concentration - - Weight 84.4 kg (186 lb) 09/26/2021 3:12 PM MICROFILM OPERATOR Height 154.9 cm (5' 1 ) 09/26/2021 3:12 PM MICROFILM OPERATOR Body Mass Index 35.14 09/26/2021 3:12 PM MICROFILM OPERATOR documented in this encounter Functional Status * [...] documented in this encounter Discharge Instructions * Attachments The following attachments cannot be sent through Care Everywhere. * Contact Dermatitis Discharge Instructions (Swiss) documented in this encounter Medications at Time of Discharge calcium carb-cholecalcif trang 600-400 MG-UNIT Tab tablet 1 tablet daily. hydrocortisone 1 % ointment Apply topically 2 (two) times daily. 28 g 09/26/2021 3 multivitamin with minerals liquid Take 15 mLs by mouth daily. 3 omeprazole 40 MG capsule TAKE 1 CAPSULE BY MOUTH DAILY BEFORE BREAKFAST FOR GERD 04/02/2021 3 documented as of this encounter ED Notes * Tashi Mesa MD - 09/26/2021 3:20 PM CST [facility] Urgent [facility]- [place], [place] HISTORICAL INFORMATION Primary Care Doctor: Provider MD Tania Patient information was obtained primarily from the patient, nursing notes. History/Exam limitations: None Provider at Bedside None CHIEF COMPLAINT Rash Chief Complaint Patient presents with ??? Rash HPI Maria Del Carmen Ray is a 46-year-old female who presents with rash to right neck for last 2 days. Pt reports rash itches/tingles. PAST MEDICAL HISTORY Past Medical History: Diagnosis Date ??? Diverticulitis ??? Hypertension 06/05/2012 ??? Onychomycosis ??? Scabies ??? Tinea corporis ??? Tinea cruris SURGICAL HISTORY Past Surgical History: Procedure Laterality Date ??? ABDOMINAL SURGERY 03/09/2021 gastric sleeve ??? APPENDECTOMY ??? COLONOSCOPY N/A 08/09/2019 COLONOSCOPY WITH polypectomy of sigmoid and rectum via hot forcep performed by Kathy Bailey MD at [facility] ??? HYSTERECTOMY CURRENT MEDICATIONS No current facility-administered medications for this encounter. Current Outpatient Medications: ??? hydrocortisone 1 % ointment, Apply topically 2 (two) times daily., Disp: 28 g, Rfl: 0 ??? calcium carb-cholecalciferol 600-400 MG-UNIT Tab tablet, 1 tablet daily., Disp: , Rfl: ??? multivitamin with minerals liquid, Take 15 mLs by mouth daily., Disp: , Rfl: ??? omeprazole 40 MG capsule, TAKE 1 CAPSULE BY MOUTH DAILY BEFORE BREAKFAST FOR GERD, Disp: , Rfl: ALLERGIES Allergies Allergen Reactions ??? Amoxicillin Rash [...] Types: Cigarettes Quit date: 08/09/2010 Years since quittin.1 ??? Smokeless tobacco: Never [...] file Intimate Partner Violence: Not on file Review of Systems Constitutional: Negative for chills and fever. HENT: Negative for congestion and sore throat. Eyes: Negative for pain and discharge. Respiratory: Negative for cough, shortness of breath and wheezing. Cardiovascular: Negative for chest pain and palpitations. Gastrointestinal: Negative for abdominal pain, diarrhea, nausea and vomiting. Genitourinary: Negative for dysuria and hematuria. Musculoskeletal: Negative for neck pain and neck stiffness. Skin: Positive for rash. Negative for wound. Neurological: Negative for seizures, syncope and headaches. Psychiatric/Behavioral: Negative for agitation and confusion. Physical Exam VITAL SIGNS: Filed Vitals: 09/26/21 1512 09/26/21 1523 BP: 137/78 Pulse: 72 Resp: 18 Temp: 98.6 ??F (37 ??C) TempSrc: Oral Oral SpO2: 98% Weight: 84.4 kg (186 lb) Height: 5' 1 (1.549 m) Physical Exam Vitals and nursing note reviewed. Constitutional: General: She is not in acute distress. Appearance: Normal appearance. She is not ill-appearing, toxic-appearing or diaphoretic. HENT: Head: Normocephalic and atraumatic. Right Ear: External ear normal. Left Ear: External ear normal. Eyes: General: No scleral icterus. Right eye: No discharge. Left eye: No discharge. Extraocular Movements: Extraocular movements intact. Conjunctiva/sclera: Conjunctivae normal. Cardiovascular: Rate and Rhythm: Normal rate and regular rhythm. Heart sounds: No murmur heard. Pulmonary: Effort: Pulmonary effort is normal. No respiratory distress. Breath sounds: Normal breath sounds. No stridor. No wheezing, rhonchi or rales. Abdominal: General: Bowel sounds are normal. Palpations: Abdomen is soft. Tenderness: There is no abdominal tenderness. Musculoskeletal: General: No deformity or signs of injury. Normal range of motion. Cervical back: Normal range of motion and neck supple. Skin: General: Skin is warm and dry. Findings: Rash (2 linear lines of rash on right lateral neck) present. Neurological: General: No focal deficit present. Mental Status: She is alert and oriented to person, place, and time. Psychiatric: Mood and Affect: Mood normal. Behavior: Behavior normal. EKG (interpreted by ED provider) No results found for this visit on 09/26/21. LABORATORY Labs Reviewed - No data to display RADIOLOGY No orders to display PROCEDURES Procedures MDM Pt counseled symptoms likely a contact dermatitis 2/2 new perfume she has put on her neck. Counseled to stop its use and use hydrocortisone cream. I have discussed today's findings with the [...] of these instructions. Impression/Disposition SNOMED CT(R) 1. Contact dermatitis, unspecified contact dermatitis type, unspecified trigger CONTACT DERMATITIS Disposition: Discharge Medications - No data to display Current Discharge Medication List START taking these medications Details hydrocortisone 1 % ointment Apply topically 2 (two) times daily. Qty: 28 g, Refills: 0 Class: Eprescribe [id number] - [address] AT [address] [facility] [id number] (Ph #: [phone]) MD Tashi Watkins MD 09/26/21 1532 OFILM OPERATOR * Isaac Hadley RN - 09/26/2021 3:16 PM CST Patient to with c/o red raised rash to right neck behind ear, noticed two days ago. Concerned for shingles, rash is not pustule or blistered. Denies pain to rash, reports itching and tingling. OFILM OPERATOR documented in this encounter Plan of Treatment Not on file documented as of this encounter Visit Diagnoses Diagnosis Contact dermatitis, unspecified contact dermatitis type, unspecified trigger- Primary documented in this encounter Additional Health Concerns Assessment Noted Time PHQ-9 Depression Total Score: 2 07/17/20 20 9:06 AM CDT documented as of this encounter Care Teams Lens Assistant Relationship Specialty Start Date End Date None, Provider, PCP - General 05/06/21 10/27/24 documented as of this encounter
--- OUTSIDE RECORDS SUMMARY | 2024-11-04 23:02 | XMS_ITS | Encounter Summary ---
Author Organization [facility] Address [facility] [facility]. [place], [place] [address] [place] [address] Care Team Providers Care Fiberglass Bonding Machine Tender Name Role Phone Unavailable Primary Care Provider Unavailabl e Encounter Details Date Type Department Care Team (Latest Contact Info) Description 04/10/2021 Scan [facility] Scanned, Documents [...]
--- OUTSIDE RECORDS SUMMARY | 2024-11-04 23:02 | XMS_ITS | Encounter Summary ---
Author Organization [facility] Address [address] [place] [address]. [place], [place] [address] [place] [address] Care Team Providers Care Foster Parent Name Role Phone Unavailable Primary Care Provider Unavailabl e Encounter Details Date Type Department Care Team (Latest Contact Info) Description 10/27/2020 Travel Social History Tobacco Use Types Packs/Day [...] COVID-19? No / Unsure 10/27/2020 7:36 AM GRANT SPECIALIST documented as of this encounter Functional Status [...]
--- OUTSIDE RECORDS SUMMARY | 2024-11-04 23:02 | XMS_ITS | Encounter Summary ---
Author Organization [facility] Address [address] [place] [address]. [place], [place] [id number] [place] [address] Care Team Providers Care Publicity Writer Name Role Phone None, Provider Primary Care Provider Unavaila ble Reason for Referral * Imaging (Emergency) - Closed Specialty Diagnoses / Procedures Referred By Contac t Referred To Contact RADIOLOGY Procedures CT ABD+PEL WO CON Estuardo Mattson PA [address] [place] [address] Phone: tel: fax: Referral ID Status Reason Start Date Expiration Date Visits Re quested Visits Authorized [id number] Closed 08/26/2022 08/26/2023 1 1 Reason for Visit * Reason Comments Flank Pain Encounter Details Date Type Department Care Team (Late st Contact Info) Description 08/26/2022 5:53 PM CDT - 08/26/2022 7:34 PM CDT Emergency [facility] Emergency Room [place], [place] [id number] Poonam Forman PA Flank Pain Discharge Disposition: Home or Self Care [...] Sign Reading Time Taken Comments Blood Pressure 147/92 08/26/2022 5:43 PM CDT Pulse 81 08/26/2022 5:43 PM CDT Temperature 36.3 ??C (97.4 ??F) 08/26/2022 5:43 PM CD T Respiratory Rate 18 08/26/2022 5:43 PM CDT Oxygen Saturation 98% 08/26/2022 5:43 PM CDT Inhaled Oxygen Concentration - - Weight 84.4 kg (186 lb) 08/26/2022 5:43 PM CDT Height 154.9 cm (5' 1 ) 08/26/2022 5:43 PM CDT Body Mass Index 35.14 08/26/2022 5:43 PM CDT documented in this encounter Functional [...] encounter Discharge Instructions * Discharge Instructions* YADIRA Bergman - 08/26/2022 7:18 PM CDT 1) Take muscle relaxer as directed. DO NOT drive or operate heavy machinery while taking the musclerelaxer. Use lidocaine patches as needed. 2) For pain relief, you can use: Tylenol 650 mg every 4 hours as needed for pain (not to exceed 4 g/day) with Ibuprofen 600mg every 6-8 hours (do not exceed 3.2g/day) as needed for additional pain relief. 3) Apply ice if muscles feel swollen. Use heat to promote blood flow to muscles. 4) Early movement as tolerated is good and will avoid muscle stiffness. Stretch affected area. The goal to relief of pain is to strengthen the muscles. 5) Return to the emergency room for any new or worsening symptoms especially if you develop fever, difficulty urinating, loss of control of urine or bowel, numbness/tingling down both legs/arms, inability to walk or other new emergent concerns. 6) Follow-up with your doctor this coming week for re-evaluation and possible referral to physical therapy or sooner if needed. This is very important for your health. * Attachments The following attachments cannot be sent through Care Everywhere. * Low Back Pain Discharge Instructions (Maldivian) documented in this encounter Medications at Time of Discharge calcium carb-cholecalcif trang 600-400 MG-UNIT Tab tablet 1 tablet daily. cyclobenzaprine (FLEXERIL) 10 MG tablet Take 1 tablet (10 mg total) by mouth 3 (three) times daily as needed for Muscle Spasms. 30 tablet 08/26/2022 2 hydrocortisone 1 % ointment Apply topically 2 (two) times daily. 28 g 09/26/2021 3 lidocaine (LIDODERM) 5 % Place 1 patch onto the skin daily for 10 days. Remove & Discard patch within 12 hours 10 patch 08/26/2022 2 multivitamin with minerals liquid Take 15 mLs by mouth daily. 3 omeprazole 40 MG capsule TAKE 1 CAPSULE BY MOUTH DAILY BEFORE BREAKFAST FOR GERD 04/02/2021 3 documented as of this encounter ED Notes * YADIRA Bergman - 08/26/2022 6:03 PM CDT ED NOTE Chief Complaint Chief Complaint Patient presents with ??? Flank Pain History of Present Illness The patient is a 46-year-old female who presents to the ED for evaluation of right low back pain x 2 days. She was seen in the ED the day of onset and she reports urine was negative for infection. Pain persists and is now radiating to her right side; described as a constant throbbing. Report nausea. She took 800 mg Ibuprofen with no relief. Denies vomiting, fever, abdominal pain, urinary sx. Denies trauma or injury. Denies extremity weakness/numbness/tingling, saddle anesthesia, bowel or bladder incontinence. Medical History ALLERGIES: Allergies Allergen Reactions ??? Amoxicillin Rash MEDICATIONS: Prior to Admission medications Medication Sig Start Date End Date Taking? Authorizing Provider cyclobenzaprine (FLEXERIL) 10 MG tablet Take 1 tablet (10 mg total) by mouth 3 (three) times daily as needed for Muscle Spasms. 08/26/22 09/05/22 Yes YADIRA Bergman lidocaine (LIDODERM) 5 % Place 1 patch onto the skin daily for 10 days. Remove & Discard patch within 12 hours 08/26/22 09/05/22 Yes YADIRA Bergman calcium carb-cholecalciferol 600-400 MG-UNIT Tab tablet 1 [...] [facility] ??? HYSTERECTOMY FAMILY HISTORY: Family History Problem Relation Name Age of Onset ??? Hypertension Father ??? Stroke Father ??? None Mother SOCIAL HISTORY: Social History Tobacco Use ??? Smoking status: Former Smoker Packs/day: 0.25 Types: Cigarettes Quit date: 08/09/2010 Years since quittin.0 ??? Smokeless tobacco: Never Used Vaping Use ??? Vaping Use: Never used Substance Use Topics ??? Alcohol use: Yes Alcohol/week: 5.0 standard drinks Types: 3 Glasses of wine per week ??? Drug use: No Review of Systems Review of Systems Constitutional: Negative for chills and fever. HENT: Negative for congestion and rhinorrhea. Eyes: Negative for photophobia and pain. Respiratory: Negative for cough and shortness of breath. Cardiovascular: Negative for chest pain and palpitations. Gastrointestinal: Positive for nausea. Negative for abdominal pain and vomiting. Endocrine: Negative. Genitourinary: Negative for dysuria and flank pain. Musculoskeletal: Positive for back pain (right low back). Negative for neck pain. Skin: Negative for rash and wound. Allergic/Immunologic: Negative. Neurological: Negative for dizziness, syncope and headaches. Hematological: Negative. Psychiatric/Behavioral: Negative for hallucinations and suicidal ideas. Physical Exam Filed Vitals: 08/26/22 1743 BP: (!) 147/92 Pulse: 81 Resp: 18 Temp: 97.4 ??F (36.3 ??C) TempSrc: Temporal SpO2: 98% Weight: 84.4 kg (186 lb) Height: 5' 1 (1.549 m) Physical Exam Vitals and nursing note reviewed. Constitutional: Appearance: Normal appearance. HENT: Head: Normocephalic and atraumatic. Nose: Nose normal. Mouth/Throat: Mouth: Mucous membranes are moist. Pharynx: Oropharynx is clear. Eyes: Conjunctiva/sclera: Conjunctivae normal. Cardiovascular: Rate and Rhythm: Normal rate and regular rhythm. Pulses: Normal pulses. Heart sounds: Normal heart sounds. Pulmonary: Effort: Pulmonary effort is normal. Breath sounds: Normal breath sounds. Abdominal: General: Abdomen is flat. Bowel sounds are normal. Tenderness: There is no abdominal tenderness. There is no right CVA tenderness or left CVA tenderness. Musculoskeletal: General: Tenderness (mild to right lumbar paraspinous muscles) present. Normal range of motion. Cervical back: Normal range of motion and neck supple. Comments: No midline tenderness to lumbar spine. No overlying rash, erythema, or swelling to right low back. LE distal pulses, sensation, cap refill, and strength intact and equal bilaterally. Able to plantarflex and dorsiflex great toes bilaterally. Denies saddle anesthesia. Pt ambulatory with steady gait. Skin: General: Skin is warm. Capillary Refill: Capillary refill takes less than 2 seconds. Neurological: General: No focal deficit present. Mental Status: She is alert. Psychiatric: Mood and Affect: Mood normal. Thought Content: Thought content normal. Judgment: Judgment normal. Diagnostic Studies / Procedures ELECTROCARDIOGRAMS: No results found for this visit on 08/26/22. LABORATORY STUDIES: Results for orders placed or performed during the hospital encounter of 08/26/22 CBC W/DIFF AUTOMATED Result Value Ref Range WBC 10.9 4.5 - 11.0 x10'3/uL RBC 4.47 4.20 - 5.40 x10'6/uL HGB 14.7 12.0 - 16.0 G/DL HCT 42.7 38.0 - 48.0 % MCV 95.5 81.0 - 99.0 FL MCH 32.9 (H) 27.0 - 31.0 PG MCHC 34.4 32.0 - 36.0 G/DL RDW 12.6 11.5 - 14.5 % PLT 266 130 - 400 x10'3/uL MPV 9.9 9.3 - 12.2 FL DIFFERENTIAL TYPE AUTOMATED DIFFERENTIAL NEUTROPHILS 68.1 % LYMPHOCYTES 26.0 % MONOCYTES 4.6 % EOSINOPHILS 0.5 % BASOPHILS 0.5 % IMMATURE GRANS 0.3 % ABS. NEUTROPHILS TOTAL 7.42 1.80 - 7.70 x10'3/uL ABS. LYMPHOCYTES 2.83 1.00 - 4.80 x10'3/uL ABS. MONOCYTES 0.50 0.24 - 0.86 x10'3/uL ABS. EOSINOPHILS 0.05 0.04 - 0.36 x10'3/uL ABS. BASOPHILS 0.05 0.01 - 0.08 x10'3/uL ABS. IMMATURE GRANULOCYTES 0.03 0.00 - 0.49 x10'3/uL COMPREHENSIVE METABOLIC PANEL Result Value Ref Range GLUCOSE 110 (H) 70 - 99 MG/DL BUN 19 (H) 7 - 18 MG/DL CREATININE S/P/B 0.90 0.55 - 1.02 MG/DL SODIUM 137 136 - 145 MMOL/L POTASSIUM 3.7 3.5 - 5.1 MMOL/L CHLORIDE S/P/B 105 100 - 108 MMOL/L CO2 27.7 21 - 32 MMOL/L CALCIUM 8.9 8.5 - 10.1 MG/DL BILIRUBIN TOTAL S/P/B 0.4 0.2 - 1.2 MG/DL TOTAL PROTEIN S/P/B 7.1 6.4 - 8.2 G/DL ALBUMIN S/P/B 3.8 3.4 - 5.0 G/DL AST 14 (L) 15 - 37 U/L ALT 25 14 - 55 U/L ALKALINE PHOSPHATASE S/P/B 78 50 - 136 U/L ANION GAP 4.3 (L) 5 - 15 MMOL/L BUN CREATININE RATIO 21.0 6 - 26 A/G RATIO 1.2 1.0 - 2.0 RATIO GFR ESTIMATE 80 (L) >90 ML/MIN/1.73 M2 URINALYSIS WI REFLEX TO CULTURE Specimen: URINE, CLEAN CATCH Result Value Ref Range Specimen Type URINE CLEAN CATCH COLOR (U) YELLOW TRANSPARENCY TURBID Specific [place] (U) 1.041 (H) 1.001 - 1.030 U PH 6.0 5.0 - 9.0 LEUKOCYTE ESTERASE NEGATIVE NEGATIVE NITRITES NEGATIVE NEGATIVE PROTEIN (U) 30 (H) <30 MG/DL URINE GLUCOSE NORMAL NORMAL MG/DL U KETONES 20 (A) NEGATIVE MG/DL UROBILINOGEN 2.0 (A) NORMAL MG/DL BILIRUBIN (U) NEGATIVE NEGATIVE MG/DL BLOOD TRACE (A) NEGATIVE CULTURE & SENSITIVITY INDICATED? CULTURE IS NOT INDICATED MUCUS FEW /LPF WBC/HPF 2 <6 /HPF RBC/HPF 6 (H) <6 /HPF SQUAMOUS EPITHELIALS MANY /HPF IMAGING STUDIES CT ABD+PEL WO CON Final Result by User, [id number] (08/26 1834) EXAMINATION: CT ABDOMEN/PELVIS WITHOUT CONTRAST INDICATION: Flank pain, kidney stone suspected COMPARISON: None available. TECHNIQUE: Computed tomography of the abdomen, and pelvis was performed without administration of intravenous contrast. Sagittal and coronal reconstructions. A dose lowering technique was used for this procedure, which may include, but is not limited to, dose reduction techniques, automated exposure control, the use of a iterative reconstruction, and ALARA (as low as reasonably achievable)/image gently techniques. FINDINGS: Lower Chest: Visualized portions of the lung bases are clear. No cardiomegaly or pericardial thickening/effusion. No hiatal hernia. Hepatobiliary: Although limited due to lack of intravenous contrast, normal appearance without focal gross abnormality. No evidence of calcified gallstones or biliary ductal dilatation. Pancreas: No pancreatic ductal dilation or surrounding inflammatory changes. Spleen: Normal in size without focal abnormality. Adrenals/Urinary Tract: Both adrenal glands appear normal. The kidneys and collecting system appear normal without evidence of urinary tract calculus or hydronephrosis. The bladder is unremarkable. Stomach/Bowel: The patient is status post sleeve gastrectomy. Small bowel, and colon are normal in appearance. No inflammatory changes, wall thickening, or obstructive findings. Scattered diverticulosis is noted. Lymph Nodes/ Vascular: No significant gross vascular findings are present given the lack of intravenous contrast. There are no enlarged abdominal or pelvic lymph nodes. Pelvis: The patient is status post hysterectomy. Other: No abdominal wall mass or hernia. No free fluid. Musculoskeletal: No acute or significant osseous abnormality. IMPRESSION: No acute intra-abdominal or pelvic pathology to explain the patient's symptoms Referred By: Interpreted By: Adriana Verdin MD, 08/26/2022 6:26 PM ED Course / Medical Decision Making MDM Number of Diagnoses or Management Options Low back pain Diagnosis management comments: Pt to ED with right lower back pain x 2 days. Mildly tender to rightlumber paraspinous muscle. No red flags. No focal neuro deficits. Labs and CT abd/pelvis unremarkable. Symptoms are likely due to musculoskeletal pain vs sciatica. Given Toradol, zofran, and fluids with minimal relief. Given lidocaine patch here. Plan to discharge with muscle relaxer, tylenol/ibuprofen, and lidocaine patches as needed for pain relief and close PCP follow up. Strict verbal return precautions reviewed. Patient expresses verbal understanding and agreement with plan. All questions answered to the best of my ability. Teachback performed by patient. Nontoxic exit exam. Patient discharged home in stable condition. Amount and/or Complexity of Data Reviewed Clinical lab tests: ordered and reviewed Tests in the radiology section of CPT??: ordered and reviewed Decide to obtain previous medical records or to obtain history from someone other than the patient:yes ED Course as of 08/26/222034 Tahira Aug 26, [id number] CT ABD+PEL WO CON No acute intra-abdominal or pelvic pathology [CC] ED Course User Index [CC] YADIRA Bergman Medications lidocaine 4 % patch 1 patch (1 patch Transdermal Patch Applied 08/26/221931) sodium chloride 0.9% bolus infusion 1,000 mL (0 mLs Intravenous Infusion Stop Time 08/26/221926) ketorolac (TORADOL) injection 15 mg (15 mg Intravenous Given 08/26/22 1800) ondansetron (ZOFRAN) injection 4 mg (4 mg Intravenous Given 08/26/22 1800) Clinical Impression Low back pain (Primary) Discharge Medication List as of 08/26/2022 7:27 PM START taking these medications Details cyclobenzaprine (FLEXERIL) 10 MG tablet Take 1 tablet (10 mg total) by mouth 3 (three) times daily as needed for Muscle Spasms., Starting [facility] 08/26/2022, Until 09/05/2022 at 2359, Eprescribe Class: Eprescribe Pharmacy: [facility] #[id number] AT [facility] [address] (Ph #: [phone]) lidocaine (LIDODERM) 5 % Place 1 patch onto the skin daily for 10 days. Remove & Discard patch within 12 hours, Starting [facility] 08/26/2022, Until 09/05/2022, Eprescribe Class: Eprescribe Pharmacy: [facility] #[id number] - [place] [address] AT [address] ( #: [phone]) Disposition: Discharge Follow-Up: No follow-up provider specified. YADIRA BERGMAN 08/26/2022 YADIRA Bergman 08/26/222057 Cosigned by Luis Jensen MD at 08/27/2022 4:13 AM CDT * Justina Harden RN - 08/26/2022 5:42 PM CDT Patient to ED c/o R flank pain that wraps around to RLQ since Tuesday. Seen recently, had urine checked, and it came back normal. Denies fever, urinary frequency or burning with urination. Also c/o nausea. documented in this encounter Plan of Treatment Not on file documented as of this encounter Procedures Procedure Name Priority Date/Time Associated Diagnosis Comments CT ABD+PEL WO CON STAT 08/26/2022 6:1 9 PM CDT URINALYSIS WI REFLEX TO CULTURE STAT 08/26/2022 6:09 PM CDT COMPREHENSIVE METABOLIC PANEL STAT 08/26/2022 5:57 PM CDT CBC W/DIFF AUTOMATED STAT 08/26/2022 5:57 PM CDT documented in this encounter Results * CT ABD+PEL WO CON (08/26/2022 6:19 PM CDT) Anatomical Region Laterality Modality Abdomen Computed Tomogra phy 08/26/2022 6:26 PM CDT Impressions 08/26/2022 6:33 PM CDT IMPRESSION: No acute intra-abdominal or pelvic pathology to explain the patient's symptoms Referred By: ?? Interpreted By: Adriana Verdin MD, 08/26/2022 6:26 PM Narrative 08/26/2022 6:33 PM CDT EXAMINATION: CT ABDOMEN/PELVIS WITHOUT CONTRAST INDICATION: Flank pain, kidney stone suspected COMPARISON: None available. TECHNIQUE: Computed tomography of the abdomen, and pelvis was performed without administration of intravenous contrast. Sagittal and coronal reconstructions. A dose lowering technique was used for this procedure, which may include, but is not limited to, dose reduction techniques, automated exposure control, the use of a iterative reconstruction, and ALARA (as low as reasonably achievable)/image gently techniques. FINDINGS: Lower Chest: Visualized portions of the lung bases are clear. No cardiomegaly or pericardial thickening/effusion. No hiatal hernia. Hepatobiliary: Although limited due to lack of intravenous contrast, normal appearance without focal gross abnormality. No evidence of calcified gallstones or biliary ductal dilatation. Pancreas: No pancreatic ductal dilation or surrounding inflammatory changes. Spleen: Normal in size without focal abnormality. Adrenals/Urinary Tract: Both adrenal glands appear normal. The kidneys and collecting system appear normal without evidence of urinary tract calculus or hydronephrosis. The bladder is unremarkable. Stomach/Bowel: The patient is status post sleeve gastrectomy. ??Small bowel, and colon are normal in appearance. No inflammatory changes, wall thickening, or obstructive findings. ??Scattered diverticulosis is noted. Lymph Nodes/ Vascular: No significant gross vascular findings are present given the lack of intravenous contrast. There are no enlarged abdominal or pelvic lymph nodes. Pelvis: The patient is status post hysterectomy. Other: No abdominal wall mass or hernia. No free fluid. Musculoskeletal: No acute or significant osseous abnormality. Procedure Note Altagracia Verdin MD - 08/26/2022 EXAMINATION: CT ABDOMEN/PELVIS WITHOUT CONTRAST INDICATION: Flank pain, kidney stone suspected COMPARISON: None available. TECHNIQUE: Computed tomography of the abdomen, and pelvis was performedwithout administration of intravenous contrast. Sagittal and coronalreconstructions. A dose lowering technique was used for this procedure,which may include, but is not limited to, dose reduction techniques,automated exposure control, the use of a iterative reconstruction, andALARA (as low as reasonably achievable)/image gently techniques. FINDINGS: Lower Chest: Visualized portions of the lung bases are clear. Nocardiomegaly or pericardial thickening/effusion. No hiatal hernia. Hepatobiliary: Although limited due to lack of intravenous contrast,normal appearance without focal gross abnormality. No evidence ofcalcified gallstones or biliary ductal dilatation. Pancreas: No pancreatic ductal dilation or surrounding inflammatorychanges. Spleen: Normal in size without focal abnormality. Adrenals/Urinary Tract: Both adrenal glands appear normal. The kidneys andcollecting system appear normal without evidence of urinary tract calculusor hydronephrosis. The bladder is unremarkable. Stomach/Bowel: The patient is status post sleeve gastrectomy. Smallbowel, and colon are normal in appearance. No inflammatory changes, wallthickening, or obstructive findings. Scattered diverticulosis is noted. Lymph Nodes/ Vascular: No significant gross vascular findings are presentgiven the lack of intravenous contrast. There are no enlarged abdominal orpelvic lymph nodes. Pelvis: The patient is status post hysterectomy. Other: No abdominal wall mass or hernia. No free fluid. Musculoskeletal: No acute or significant osseous abnormality. IMPRESSION: No acute intra-abdominal or pelvic pathology to explain the patient'ssymptoms Referred By: Interpreted By: Adriana Verdin MD, 08/26/2022 6:26 PM us Estuardo MAY CT Final Resu lt * (ABNORMAL) URINALYSIS WI REFLEX TO CULTURE (08/26/2022 6:09 PM CDT) SPECIMEN TYPE URINE CLEAN CATCH 08/26/2022 6:08 PM CDT [facility] COLOR (U) YELLOW 08/26/2022 6:21 PM CDT [facility] TRANSPARENCY TURBID 08/26/2022 6:21 PM CDT [facility] SPECIFIC GRAVITY (U) 1.041(H) 1.001 - 1.030 08/26/2022 6:21 PM CDT [facility] U PH 6.0 5.0 - 9.0 08/26/2022 6:21 PM T [facility] LEUKOCYTES (U) NEGATIVE NEGATIVE 08/26/2022 6:21 PM T [facility] NITRITES NEGATIVE NEGATIVE 08/26/2022 6:21 PM T [facility] PROTEIN (U) 30(H) <30 MG/DL 08/26/2022 6:21 PM T [facility] URINE GLUCOSE NORMAL NORMAL MG/DL 08/26/2022 6:21 PM T [facility] KETONES MG/DL (U) 20(A) NEGATIVE MG/DL 08/26/2022 6:21 PM T [facility] UROBILINOGEN 2.0(A) NORMAL MG/DL 08/26/2022 6:21 PM T [facility] BILIRUBIN (U) NEGATIVE NEGATIVE MG/DL 08/26/2022 6:21 PM T [facility] BLOOD (U) TRACE(A) NEGATIVE 08/26/2022 6:21 PM T [facility] CULTURE & SENSITIVITY INDICATED? CULTURE IS NOT INDICATED 08/26/2022 6:21 PM T [facility] MUCUS FEW /LPF 08/26/2022 6:21 PM T [facility] WBC/HPF 2 <6 /HPF 08/26/2022 6:21 PM T [facility] RBC/HPF 6(H) <6 /HPF 08/26/2022 6:21 PM T [facility] SQUAMOUS EPITHELIALS MANY /HPF 08/26/2022 6:[address] [facility] URINE SPECIMEN OBTAINED BY CLEAN CATCH PROCEDURE / Unknown 08/26/2022 6:09 PM CDT us Estuardo [facility] URINE ORDERABLES Final Res ult [facility] [address] [place] [address], [place] [phone] * (ABNORMAL) COMPREHENSIVE METABOLIC PANEL (08/26/2022 5:57 PM CDT) [facility] GLUCOSE 110(H) 70 - 99 MG/DL 08/26/2022 6:32 PM CDT [facility] BUN 19(H) 7 - 18 MG/DL 08/26/2022 6:32 PM CDT [facility] CREATININE S/P/B 0.90 0.55 - 1.02 MG/DL 08/26/2022 6:32 PM CDT [facility] SODIUM S/P/B 137 136 - 145 MMOL/L 08/26/2022 6:32 PM CDT [facility] POTASSIUM S/P/B 3.7 3.5 - 5.1 MMOL/L 08/26/2022 6:32 PM CDT [facility] CHLORIDE S/P/B 105 100 - 108 MMOL/L 08/26/2022 6:32 PM CDT [facility] CO2 27.7 21 - 32 MMOL/L 08/26/2022 6:32 PM CDT [facility] CALCIUM S/P/B 8.9 8.5 - 10.1 MG/DL 08/26/2022 6:32 PM CDT [facility] BILIRUBIN TOTAL S/P/B 0.4 0.2 - 1.2 MG/DL 08/26/2022 6:32 PM CDT [facility] Comment: THIS ASSAY IS NOT RECOMMENDED FOR PATIENTS UNDERGOING TREATMENT WITH ELTROMBOPAG DUE TO THE POTENTIAL FOR FALSELY ELEVATED RESULTS. TOTAL PROTEIN S/P/B 7.1 6.4 - 8.2 G/DL 08/26/2022 6:32 PM CDT [facility] ALBUMIN S/P/B 3.8 3.4 - 5.0 G/DL 08/26/2022 6:32 PM CDT [facility] AST 14(L) 15 - 37 U/L 08/26/2022 6:32 PM CDT [facility] ALT 25 14 - 55 U/L 08/26/2022 6:32 PM CDT [facility] ALKALINE PHOSPHATASE S/P/B 78 50 - 136 U/L 08/26/2022 6:32 PM CDT [facility] ANION GAP 4.3(L) 5 - 15 MMOL/L 08/26/2022 6:32 PM CDT [facility] BUN CREATININE RATIO 21.0 6 - 26 08/26/2022 6:32 PM CDT [facility] A/G RATIO 1.2 1.0 - 2.0 RATIO 08/26/2022 6:32 PM CDT [facility] GFR ESTIMATE 80(L) >90 ML/MIN/1.7 3 M2 08/26/2022 6:32 PM CDT [facility] Comment: NOTE: eGFR is not calculated for patients <18 years of age. This is an estimated GFR calculation using the new CKD EPI creatinine equation without race and so does not require a correction factor for race. This estimated GFR should not be used for calculating drug doses. 08/26/2022 5:57 PM CDT us [facility] Final Resu lt [facility] [address] [place] [address], [place] [phone] * (ABNORMAL) CBC W/DIFF AUTOMATED (08/26/2022 5:57 PM CDT) [facility] WBC 10.9 4.5 - 11.0 x10'3/uL 08/26/2022 6:09 PM CDT [facility] RBC 4.47 4.20 - 5.40 x10'6/uL 08/26/2022 6:09 PM CDT [facility] HGB 14.7 12.0 - 16.0 G/DL 08/26/2022 6:09 PM CDT [facility] HCT 42.7 38.0 - 48.0 % 08/26/2022 6:09 PM CDT [facility] MCV 95.5 81.0 - 99.0 FL 08/26/2022 6:09 PM CDT [facility] MCH 32.9(H) 27.0 - 31.0 PG 08/26/2022 6:09 PM CDT [facility] MCHC 34.4 32.0 - 36.0 G/DL 08/26/2022 6:09 PM CDT [facility] RDW 12.6 11.5 - 14.5 % 08/26/2022 6:09 PM CDT [facility] PLT 266 130 - 400 x10'3/uL 08/26/2022 6:09 PM CDT [facility] MPV 9.9 9.3 - 12.2 FL 08/26/2022 6:09 PM CDT [facility] DIFFERENTIAL TYPE AUTOMATED DIFFERENTIAL 08/26/2022 6:09 PM CDT [facility] NEUTROPHILS % 68.1 % 08/26/2022 6:09 PM CDT [facility] LYMPHOCYTES % 26.0 % 08/26/2022 6:09 PM CDT [facility] MONOCYTES % 4.6 % 08/26/2022 6:09 PM CDT [facility] EOSINOPHILS 0.5 % 08/26/2022 6:09 PM CDT [facility] BASOPHILS 0.5 % 08/26/2022 6:09 PM CDT [facility] IMMATURE GRANS % 0.3 % 08/26/20 6:09 PM CDT [facility] ABS. NEUTROPHILS TOTAL 7.42 1.80 - 7.70 x10'3/uL 08/26/2022 6:09 PM CDT [facility] ABS. LYMPHOCYTES 2.83 1.00 - 4.80 x10'3/uL 08/26/2022 6:09 PM CDT [facility] ABS. MONOCYTES 0.50 0.24 - 0.86 x10'3/uL 08/26/2022 6:09 PM CDT [facility] ABS. EOSINOPHILS 0.05 0.04 - 0.36 x10'3/uL 08/26/2022 6:09 PM CDT [facility] ABS. BASOPHILS 0.05 0.01 - 0.08 x10'3/uL 08/26/2022 6:09 PM CDT [facility] ABS. IMMATURE GRANULOCYTES 0.03 0.00 - 0.49 x10'3/uL 08/26/2022 6:09 PM CDT [facility] 08/26/2022 5:57 PM CDT us [facility] Final Resu lt [facility] [address] [place] [address], [place] [phone] documented in this encounter Visit Diagnoses Diagnosis Low back pain- Primary Lumbago documented in this encounter Administered Medications Inactive Administered Medications - up to 3 most recent administrations Medication Order MAR Action Action Date Dose Rate Site ketorolac (TORADOL) injection 15 mg 15 mg, Intravenous, Once, 1 dose, On [place] 08/26/22 at 1800, For IV administration, give over 15 seconds. Given 08/26/2022 6:00 PM CDT 15 mg lidocaine 4 % patch 1 patch 1 patch, Transdermal, Administer over 12 Hours, Once, 1 dose, On [place] 08/26/22 at 1930 Patch Applied 08/26/2022 7:32 PM CDT 1 patch Other ondansetron (ZOFRAN) injection 4 mg 4 mg, Intravenous, Once, 1 dose, On [place] 08/26/22 at 1800, IV push over 2-5 minutes. Given 08/26/2022 6:00 PM CDT 4 mg sodium chloride 0.9% bolus infusion 1,000 mL 1,000 mL, Intravenous, Administer over 15 Minutes, Bolus (Once), 1 dose, On [place] 08/26/22 at 1800 New Bag 08/26/2022 6:00 PM CDT 1,000 mLs documented in this encounter Active and Recently Administered Medications Times are shown in CDT. Scheduled Medication Order 08/24/2022 08/25/2022 08/26/2022 ketorolac (TORADOL) injection 15 mg (COMPLETED) 15 mg, Intravenous, Once, 1 dose, On [place] 08/26/22 at 1800, For IV administration, give over 15 seconds. 1800 (Given - Provid er: Shivani Caceres RN) lidocaine 4 % patch 1 patch 1 patch, Transdermal, Administer over 12 Hours, Once, 1 dose, On [place] 08/26/22 at 1930 1932 (Patch Applied - Provider: Samantha Walsh RN - Comment: right flank)193 (Due: Patch Removed - Provider: Automatic Discharge Provider - Comment: Time automatically adjusted from order being discontinued) ondansetron (ZOFRAN) injection 4 mg (COMPLETED) 4 mg, Intravenous, Once, 1 dose, On [place] 08/26/22 at 1800, IV push over 2-5 minutes. 1800 (Given - Provid er: Shivani Caceres RN) sodium chloride 0.9% bolus infusion 1,000 mL (COMPLETED) 1,000 mL, Intravenous, Administer over 15 Minutes, Bolus (Once), 1 dose, On [place] 08/26/22 at 1800 1800 (New Bag - Prov ider: Shivani Caceres, RITA)1927 (Infusion Stop Time - Provider: Samantha Walsh RN) documented in this encounter Additional Health Concerns Assessment Noted Time PHQ-9 Depression Total Score: 2 07/17/20 20 9:06 AM CDT documented as of this encounter Care Teams Publicity Writer Relationship Specialty Start Date End Date None, Provider, PCP - General 05/06/21 10/27/24 documented as of this encounter
--- OUTSIDE RECORDS SUMMARY | 2024-11-04 23:02 | XMS_ITS | Encounter Summary ---
Author Organization [facility] Address [address] [place] [address]. [place], [place] [address] [place] [address] Care Team Providers Care Lime Mixer Name Role Phone Unavailable Primary Care Provider Unavailabl e Reason for Visit * Reason Comments Earache Encounter Details Date Type Department Care Team (Late st Contact Info) Description 10/22/2020 11:06 PM RETENTION REPRESENTATIVE - 10/22/2020 11:48 PM RETENTION REPRESENTATIVE Emergency [facility] [place] [address] Maryjane Pedro NP [address] [address] Earache Discharge Disposition: Home or Self Care (Routine [...] have Coronavirus / COVID-19? No / Unsure 10/22/2020 9:00 PM RETENTION REPRESENTATIVE documented as of this encounter Last Filed Vital Signs Vital Sign Reading Time Taken Comments Blood Pressure 127/101 10/22/2020 9:17 PM RETENTION REPRESENTATIVE Pulse 91 10/22/2020 9:17 PM RETENTION REPRESENTATIVE Temperature 35.9 ??C (96.6 ??F) 10/22/2020 9:17 PM CS T Respiratory Rate 18 10/22/2020 9:17 PM RETENTION REPRESENTATIVE Oxygen Saturation 98% 10/22/2020 9:17 PM RETENTION REPRESENTATIVE Inhaled Oxygen Concentration - - Weight 110.7 kg (244 lb) 10/22/2020 9:17 PM RETENTION REPRESENTATIVE Height 154.9 cm (5' 1 ) 10/22/2020 9:17 PM RETENTION REPRESENTATIVE Body Mass Index 46.1 10/22/2020 9:17 PM RETENTION REPRESENTATIVE documented in this encounter Functional Status * [...] this encounter Discharge Instructions * Discharge Instructions* Maryjane Pedro NP - 10/22/2020 11:39 PM RETENTION REPRESENTATIVE Warm moist compresses or ice pack for comfort. Start Medrol Dosepak in the morning. And continue ibuprofen as needed. IF you develop a rash, please return because this may be more associated with shingles as we discussed. NTION REPRESENTATIVE * Attachments The following attachments cannot be sent through Care Everywhere. * Eustachian Tube Problems Discharge Instructions (Djiboutian) documented in this encounter Medications at Time of Discharge ibuprofen 600 MG tablet Take 1 tablet (600 mg total) by mouth every 6 (six) hours as needed. 30 tablet 10/22/2020 0 methylPREDNISolon e, [place], 4 MG tablet MEDROL dose pack as directed 1 each 10/22/2020 1 omeprazole 20 MG capsuleIndication s:Gastroesophagea l reflux disease without esophagitis Take 1 capsule (20 mg total) by mouth daily. 30 capsule 11 07/17/2020 0 Phentermine HCl 37.5 MG CapIndications:Cl ass 3 severe obesity due to excess calories without serious comorbidity with body mass index (BMI) of 40.0 to 44.9 in adult ([facility]) Take 1 tablet by mouth every morning before breakfast. 30 capsule 01/04/2020 0 documented as of this encounter ED Notes * Emma Noble RN - 10/22/2020 11:47 PM CST Pt states understanding of discharge instructions, denies other needs. NTION REPRESENTATIVE * Maryjane Pedro NP - 10/22/2020 11:35 PM CST Emergency Department Note Chief Complaint Chief Complaint Patient presents with ??? Earache History of Present Illness 45-year-old female with past medical history of obesity and GERD reticulitis, hypertension, scabiesand tinea, complains of right ear pain that started last night and is severe. She has taken Tylenolwhich did relieve some of the symptoms but the pain has returned. Medical History ALLERGIES: Allergies Allergen Reactions ??? Amoxicillin Rash MEDICATIONS: Prior to Admission medications Medication Sig Start Date End Date Taking? Authorizing Provider ibuprofen 600 MG tablet Take 1 tablet (600 mg total) by mouth every 6 (six) hours as needed. 10/22/20 11/01/20 Yes Maryjane Pedro NP methylPREDNISolone, AMERICA, 4 MG tablet MEDROL dose pack as directed 10/22/20 Yes Maryjane Pedro NP omeprazole 20 MG capsule Take 1 capsule (20 mg total) by mouth daily. 07/17/20 Rose Marie Norton NP Phentermine HCl 37.5 MG Cap Take 1 tablet by mouth every morning before breakfast. 01/04/20 Rose Marie Norton NP PAST MEDICAL HISTORY: Past Medical History: Diagnosis Date ??? Diverticulitis ??? Hypertension 06/05/2012 ??? Onychomycosis ??? Scabies ??? Tinea corporis ??? Tinea cruris PAST SURGICAL HISTORY: Past Surgical History: Procedure Laterality Date ??? APPENDECTOMY ??? COLONOSCOPY N/A 08/09/2019 COLONOSCOPY WITH polypectomy of sigmoid and rectum via hot forcep performed by Kathy Bailey MD at [facility] ??? HYSTERECTOMY FAMILY HISTORY: Family History Problem Relation Name Age of Onset ??? Hypertension Father ??? Stroke Father ??? None Mother SOCIAL HISTORY: Social History Tobacco Use ??? Smoking status: Former Smoker Packs/day: 0.25 Types: Cigarettes Quit date: 08/09/2010 Years since quittin.2 ??? Smokeless tobacco: Never Used Substance Use Topics ??? Alcohol use: Yes Frequency: Never ??? Drug use: No Review of Systems Review of Systems Constitutional: Negative for chills and fever. HENT: Positive for ear pain. Negative for ear discharge and sore throat. Eyes: Negative for visual disturbance. Respiratory: Negative for cough and shortness of breath. Cardiovascular: Negative for chest pain. Gastrointestinal: Negative for abdominal pain, constipation, diarrhea and nausea. Genitourinary: Negative for difficulty urinating. Skin: Negative for rash. Neurological: Negative for light-headedness and headaches. Psychiatric/Behavioral: Negative for decreased concentration. All other systems reviewed and are negative. Physical Exam Filed Vitals: 10/22/20 2115 10/22/202116 BP: (!) 127/101 Pulse: 91 Resp: 18 Temp: 96.6 ??F (35.9 ??C) 96.6 ??F (35.9 ??C) SpO2: 98% Weight: 110.7 kg (244 lb) Height: 5' 1 (1.549 m) Physical Exam Constitutional: She is oriented to person, place, and time. She appears well- developed and well-nourished. No distress. HENT: Head: Normocephalic. Right Ear: External ear normal. Left Ear: External ear normal. Mouth/Throat: Oropharynx is clear and moist. Scattered caries, no abscess noted. Uvula midline, no trismus. No mastoid tenderness. No maxillary or frontal sinus tenderness to palpation. Minimal swelling to the right side of the neck, no nodulespalpated. No swelling noted to any of the salivary glands specifically and no buccal swelling. Eyes: Pupils are equal, round, and reactive to light. Neck: Neck supple. Cardiovascular: Normal rate, regular rhythm, normal heart sounds and intact distal pulses. No murmur heard. Pulmonary/Chest: Effort normal and breath sounds normal. Abdominal: Soft. Bowel sounds are normal. There is no abdominal tenderness. Musculoskeletal: General: No tenderness or edema. Neurological: She is alert and oriented to person, place, and time. Skin: Skin is warm and dry. No pallor. Psychiatric: She has a normal mood and affect. Her behavior is normal. Judgment and thought contentnormal. Nursing note and vitals reviewed. Diagnostic Studies / Procedures ELECTROCARDIOGRAMS: No results found for this visit on 10/22/20. LABORATORY STUDIES: No results found for this visit on 10/22/20. IMAGING STUDIES No orders to display ED Course / Medical Decision Making Results: Pulse Ox: 98 % on room air, No hypoxia, interpreted by me. Laboratory Data Reviewed: No results found for this visit on 10/22/20. Imaging Studies Reviewed: No orders to display ED Course: ED Diagnosis: Clinical Impression Eustachian tube dysfunction, right (Primary) Disposition: Discharge Medications HYDROcodone-acetaminophen (NORCO) 5-325 MG tablet 1 tablet (1 tablet Oral Given 10/22/20 1985) Clinical Impression Eustachian tube dysfunction, right (Primary) Discharge Medication List as of 10/22/2020 11:39 PM START taking these medications Details ibuprofen 600 MG tablet Take 1 tablet (600 mg total) by mouth every 6 (six) hours as needed., Starting Tue10/22/2020, Until 11/01/2020, Eprescribe Class: Eprescribe Pharmacy: [facility] #[id number] [place], [place] - [address] [address] & [facility] (Ph #: [phone]) methylPREDNISolone, [place], 4 MG tablet MEDROL dose pack as directed, Eprescribe Class: Eprescribe Pharmacy: [facility] #[id number] [facility] [address] [facility] (Ph #: [phone]) Medications HYDROcodone-acetaminophen (NORCO) 5-325 MG tablet 1 tablet (1 tablet Oral Given 10/22/20 2344) Discharge Medication List as of 10/22/2020 11:39 PM START taking these medications Details ibuprofen 600 MG tablet Take 1 tablet (600 mg total) by mouth every 6 (six) hours as needed., Starting Tue10/22/2020, Until 11/01/2020, Eprescribe Class: Eprescribe Pharmacy: [id number] [address] [facility] (Ph #: [phone]) methylPREDNISolone, [place], 4 MG tablet MEDROL dose pack as directed, Eprescribe Class: Eprescribe Pharmacy: [facility] #[id number] [place], [place] [address] [address] [place] [address] & [facility] (Ph #: [phone]) I have discussed today's findings with the patient and provided information regarding the likely diagnosis. The patient has been given information regarding plan. I have expressed the the importance of seeking attention should there be any new, or worsening symptoms or persistence of their condition. The patient is stable at time of disposition. Disposition: Discharge Follow-Up: Rose Marie Norton NP [address] [place] [id number] As needed MARYJANE PEDRO NP 10/23/2020 Note: This H+P was created with the aid of dictation software, thus there may be some word substitutions or errors. Maryjane Pedro NP 10/23/20 0144 Cosigned by Jaime Lanier MD at 10/23/2020 2:05 AM RETENTION REPRESENTATIVE NTION REPRESENTATIVE NTION REPRESENTATIVE * Emma Noble RN - 10/22/2020 9:14 PM CST Pt states - I believe I have an ear infection, I have pain the right side going on since yesterday. NTION REPRESENTATIVE documented in this encounter Plan of Treatment Not on file documented as of this encounter Visit Diagnoses Diagnosis Eustachian tube dysfunction, right- Primary documented in this encounter Administered Medications Inactive Administered Medications - up to 3 most recent administrations Medication Order MAR Action Action Date Dose Rate Site HYDROcodone-acetaminophen (NORCO) 5-325 MG tablet 1 tablet 1 tablet, Oral, Once, 1 dose, On Tue10/22/20 at 2345, Maximum dose of acetaminophen is 4000 mg from all sources in 24 hours. Given 10/22/2020 11:44 PM RETENTION REPRESENTATIVE 1 tablet documented in this encounter Active and Recently Administered Medications Times are shown in RETENTION REPRESENTATIVE. Scheduled Medication Order 10/20/2020 10/21/2020 10/22/2020 HYDROcodone-acetaminophen (NORCO) 5-325 MG tablet 1 tablet (COMPLETED) 1 tablet, Oral, Once, 1 dose, On Tue10/22/20 at 2345, Maximum dose of acetaminophen is 4000 mg from all sources in 24 hours. 2344 (Given - Provid er: Emma Noble RN) documented in this encounter Additional Health Concerns Assessment Noted Time PHQ-9 Depression Total Score: 2 07/17/20 20 9:06 AM CDT documented as of this encounter
--- OUTSIDE RECORDS SUMMARY | 2024-11-04 23:02 | XMS_ITS | Encounter Summary ---
Author Organization [facility] Address [facility]. [place], [place] [id number] [place] [address] Care Team Providers Care Piano Builder Name Role Phone Unavailable Primary Care Provider Unavailabl e Encounter Details Date Type Department Care Team (Latest Contact Info) Description 10/22/2020 Travel Social History Tobacco Use Types Packs/Day [...] COVID-19? No / Unsure 10/22/2020 9:00 PM TOOL ROOM GEAR MACHINE OPERATOR documented as of this encounter Functional [...]
--- OUTSIDE RECORDS SUMMARY | 2024-11-04 23:02 | XMS_ITS | Encounter Summary ---
Author Organization [facility] Address [address] [place] [address]. [place], [place] [address] [place] [address] Care Team Providers Care Concrete Pump Operator Name Role Phone None, Provider Primary Care Provider aHyder bowles Encounter Details Date Type Department Care Team (Latest Contact Info) Description 12/23/2022 Travel Social History Tobacco Use Types Packs/Day [...] suspected to have Coronavirus/COVID-19? No / Unsure 12/23/2022 4:49 PM CLIENT EXPERIENCE MANAGER documented as of this encounter Functional Status [...] documented as of this encounter Care Teams Concrete Pump Operator Relationship Specialty Start Date End Date None, Provider, PCP - General 05/06/21 10/27/24 documented as of this encounter
--- OUTSIDE RECORDS SUMMARY | 2024-11-04 23:02 | XMS_ITS | Encounter Summary ---
Author Organization [facility] Address [address] [place] [address]. [place] [address] [place] [address] Care Team Providers Care Trace Evidence Technician Name Role Phone None, Provider Primary Care Provider Hayder bowles Encounter Details Date Type Department Care Team (Latest Contact Info) Description 05/06/2021 Travel Social History Tobacco Use Types Packs/Day [...] documented as of this encounter Care Teams Trace Evidence Technician Relationship Specialty Start Date End Date None, Provider, PCP - General 05/06/21 10/27/24 documented as of this encounter
--- OUTSIDE RECORDS SUMMARY | 2024-11-04 23:02 | XMS_ITS | Encounter Summary ---
Author Organization [facility] Address [address] [place] [address]. [place] [address] [place] [address] Care Team Providers Care Knife Glazer Name Role Phone Unavailable Primary Care Provider Unavailabl e Reason for Visit * Reason Onset Date Comments Advise 10/24/2020 advise Encounter Details Date Type Department Care Team (Late st Contact Info) Description 10/24/2020 Telephone [facility] - [place] [address] [place] [address] Rose Marie Norton, JUAN JOSE [address] [place], [place] [phone] Advise (advise) Social History Tobacco Use Types Packs/Day Years [...] COVID-19? No / Unsure 10/27/2020 7:36 AM ENGINEERING SPECIALIST TECHNICIAN documented as of this encounter Functional [...] Notes * Rose Marie Norton NP - 10/24/2020 1:47 PM CST Fluid is what I saw, ear canal being red is not an infection. If the ear drum is red that is an infection. NEERING SPECIALIST TECHNICIAN * Janett Miles CMA - 10/24/2020 1:13 PM CST Called and scheduled appt for in person on Tuesday due to pt availibility. Pt informed that Rose Marie willneed to look in her ear and she can not do this over video. Pt stated she was worried about her eardrum rupturing and I instructed her if it got worse over the weekend [facility] NEERING SPECIALIST TECHNICIAN * Lucina Santillan - 10/24/2020 12:47 PM CST Pt was seen at ER for ear pain a few days ago. She was told that it did not look like an infection and gave her steroid and Ibuprofen. Yesterday she had a provider at her work look at it and they said the ear canal was red and they saw fluid, lymph node under that ear is swollen. She can not come in for a visit today and was wondering if Rose Marie could send a script for her or she may be able to do a VV this afternoon. NEERING SPECIALIST TECHNICIAN documented in this encounter Plan of Treatment Not on file documented as of this encounter Visit Diagnoses Not on filedocumented in this encounter Additional Health Concerns Assessment Noted Time PHQ-9 Depression Total Score: 2 07/17/20 20 9:06 AM CDT documented as of this encounter
--- OUTSIDE RECORDS SUMMARY | 2024-11-04 23:02 | XMS_ITS | Encounter Summary ---
Author Organization [facility] Address [address] [place] [address]. [place], [place] [id number] [place] [address] Care Team Providers Care Distribution Technician Name Role Phone None, Provider MD Primary Care Provider Unavaila ble Reason for Visit * Reason Comments Facial Swelling Encounter Details Date Type Department Care Team (Late st Contact Info) Description 01/24/2023 5:14 AM CDT - 01/24/2023 6:20 AM CDT Emergency [facility] [place] [address] Clark Skelton MD,PHD [address] [place] [address] Facial Swelling Discharge Disposition: Home or Self Care (Routine [...] suspected to have Coronavirus/COVID-19? No / Unsure 01/24/2023 5:01 AM CDT documented as of this encounter Last Filed Vital Signs Vital Sign Reading Time Taken Comments Blood Pressure 131/90 01/24/2023 5:02 AM CDT Pulse 77 01/24/2023 5:02 AM CDT Temperature 36.8 ??C (98.2 ??F) 01/24/2023 5:02 AM CD T Respiratory Rate 18 01/24/2023 5:02 AM CDT Oxygen Saturation 98% 01/24/2023 5:02 AM CDT Inhaled Oxygen Concentration - - Weight 74 kg (163 lb 2.3 oz) 01/24/2023 5:02 AM CDT Height 154.9 cm (5' 1 ) 01/24/2023 5:02 AM CDT Body Mass Index 30.83 01/24/2023 5:02 AM CDT documented in this encounter Functional [...] this encounter Discharge Instructions * Discharge Instructions* Clark Skelton MD,PHD - 01/24/2023 5:46 AM CDT Is there anything I can do on my own to feel better? -- Yes. To help your symptoms, your doctor or nurse might recommend that you: Put heat on the swollen area. Wet a clean washcloth with warm water and put it on the area. When the washcloth cools, reheat it with warm water and put it back on. Repeat these steps for 10 to 15 minutes every few hours. Drink lots of fluids. Gently massage the swollen area. Suck on sour or lemon-flavored hard candy. documented in this encounter Medications at Time of Discharge calcium carb-cholecalcif trang 600-400 MG-UNIT Tab tablet 1 tablet daily. clindamycin (CLEOCIN) 150 MG capsule Take 3 capsules (450 mg total) by mouth 3 (three) times daily for 14 days. 126 capsule 01/24/2023 3 hydrocortisone 1 % ointment Apply topically 2 (two) times daily. 28 g 09/26/2021 3 meloxicam (MOBIC) 15 MG tablet Take 0.5 tablets (7.5 mg total) by mouth daily for 6 days. 3 tablet 01/24/2023 3 multivitamin with minerals liquid Take 15 mLs by mouth daily. 3 omeprazole 40 MG capsule TAKE 1 CAPSULE BY MOUTH DAILY BEFORE BREAKFAST FOR GERD 04/02/2021 3 documented as of this encounter ED Notes * Clark Skelton MD,PHD - 01/24/2023 5:50 AM CDT EMERGENCY DEPARTMENT ENCOUNTER Chief Complaint Chief Complaint Patient presents with ??? Facial Swelling History of Present Illness 47 year-old female presenting with right-sided facial swelling. The patient reports she has been evaluated in the emergency department, by her primary care doctor, and by a dentist presents these complaints. She has been found to have a dental cavity. She has been placed on a course of antibiotics by dentist, will additionally suspect a blocked salivary gland. The patient has been using sour candies as well. She feels that there has been no change in her symptoms for 1 month. Patient reports that her dentist does not plan to fill her cavity until June. Physical Exam Filed Vitals: 01/24/23 0502 BP: (!) 131/90 Pulse: 77 Resp: 18 Temp: 98.2 ??F (36.8 ??C) TempSrc: Oral SpO2: 98% Weight: 74 kg (163 lb 2.3 oz) Height: 5' 1 (1.549 m) CONSTITUTIONAL: Patient is awake, alert, in no acute distress, conversant HEAD AND FACE: Normocephalic, atraumatic, subtle asymmetry to the face OROPHARYNX: Dental cavity noted the posterior mandibular tooth, no fluctuance along the gumline, floor of the mouth is soft, neuro exploration of the mouth is soft tissues of the face and neck revealed no evidence of a deep space infection NECK: Supple, no obvious asymmetry, no adenopathy, no stridor EARS: Normal tympanic membranes bilaterally ED Course / Medical Decision Making Patient presenting with a chief complaint of facial swelling History is provided by the patient who is deemed to be a reliable historian The course of the patient's facial swelling is subacute. The patient has no evidence of a deep space infection of the head or neck and no evidence of airway compromise. She is not systemically ill appearing and has normal vital signs. I interpreted the patient's pulse oximeter at rest, which is 98% on room air, which is normal and determined that this patient is not hypoxic Medication management: I reconciled the patient's current medication list and the patient is currently taking clindamycin Meloxicam is prescribed for continued reports of clindamycin as below. The patient requests a shot of pain medicine and thus toradol is administered The patient was then deemed stable for discharge from emergency department Social determinants of health: Due to the patient's difficulty finding prompt dental follow-up, an alternative option will be provided Clinical Impression Facial swelling (Primary) Current Discharge Medication List START taking these medications Details clindamycin (CLEOCIN) 150 MG capsule Take 3 capsules (450 mg total) by mouth 3 (three) times daily for 14 days. Qty: 126 capsule, Refills: 0 Class: Eprescribe Pharmacy: [id number] - [place], [place] - [address] (Ph #: [phone]) meloxicam (MOBIC) 15 MG tablet Take 0.5 tablets (7.5 mg total) by mouth daily for 6 days. Qty: 3 tablet, Refills: 0 Class: Eprescribe [id number] - [facility] [address] [facility] (Ph #: [phone]) Disposition: Discharge home Patient provided with printed and verbal discharge care instructions and was instructed to return to the emergency department immediately with worsening symptoms or new worrisome symptoms. Patient was instructed to follow-up with primary care physician and dentist within 1 week for further evaluation and treatment. Diagnoses & treatment discussed with patient Patient expressed understanding and agreed. Clark Skelton MD,PHD 01/25/23 0137 * Lima Jessica RN - 01/24/2023 5:06 AM CDT Right facial swelling that has been getting worse, she was given a steroid shot and and she has a cavity per the dentist but he is unsure of the cause documented in this encounter Plan of Treatment Not on file documented as of this encounter Visit Diagnoses Diagnosis Facial swelling- Primary Swelling, mass, or lump in head and neck documented in this encounter Administered Medications Inactive Administered Medications - up to 3 most recent administrations Medication Order MAR Action Action Date Dose Rate Site ketorolac (TORADOL) injection 15 mg 15 mg, Intramuscular, Once, 1 dose, On 01/24/23 at 0545, For IV administration, give over 15 seconds. Given 01/24/2023 5:54 AM CDT 15 mg Left Ventrogluteal documented in this encounter Active and Recently Administered Medications Times are shown in CDT. Scheduled Medication Order 01/22/2023 01/23/2023 01/24/2023 ketorolac (TORADOL) injection 15 mg (COMPLETED) 15 mg, Intramuscular, Once, 1 dose, On Tue01/24/23 at 0545, For IV administration, give over 15 seconds. 0554 (Given - Provid er: Chloe Houston RN) documented in this encounter Additional Health Concerns Assessment Noted Time PHQ-9 Depression Total Score: 2 07/17/20 20 9:06 AM CDT documented as of this encounter Care Teams Distribution Technician Relationship Specialty Start Date End Date None, Provider, MD PCP - General 05/06/21 10/27/24 documented as of this encounter
--- OUTSIDE RECORDS SUMMARY | 2024-11-04 23:02 | XMS_ITS | Encounter Summary ---
Author Organization [facility] Address [address] [place] [address]. [place], [place] [id number] [place] [address] Care Team Providers Care Patient Services Rep Name Role Phone None, Provider Primary Care Provider Hayder bowles Encounter Details Date Type Department Care Team (Latest Contact Info) Description 01/24/2023 Travel Social History Tobacco Use Types Packs/Day [...] documented as of this encounter Care Teams Patient Services Rep Relationship Specialty Start Date End Date None, Provider, PCP - General 05/06/21 10/27/24 documented as of this encounter
--- OUTSIDE RECORDS SUMMARY | 2024-11-04 23:02 | XMS_ITS | Encounter Summary ---
Author Organization [facility] Address [facility]. [place], [place] [id number] [place] [address] Care Team Providers Care Senior Health Educator Name Role Phone Unavailable Primary Care Provider Unavailabl e Encounter Details Date Type Department Care Team (Latest Contact Info) Description 02/18/2021 Scan HEALTH INFO SRVCS Scanned, Documents Social [...] Status No 06/01/2019 2:55 AM CDT Teja Sgeundo RN Active documented in this encounter Plan of Treatment Not on file documented as of this encounter Visit Diagnoses Not on filedocumented in this encounter Additional Health Concerns Assessment Noted Time PHQ-9 Depression Total Score: 2 07/17/20 20 9:06 AM CDT documented as of this encounter
--- OUTSIDE RECORDS SUMMARY | 2024-11-04 23:02 | XMS_ITS | Encounter Summary ---
Author Organization [facility] Address [address] [place] [address]. [place], [place] [id number] [place] [address] Care Team Providers Care Astrobiologist Name Role Phone None, Provider MD Primary Care Provider Unavaila ble Reason for Visit * Reason Comments Urinary Symptoms Encounter Details Date Type Department Care Team (Late st Contact Info) Description 12/23/2022 5:27 PM HOUSEHOLD MANAGER - 12/23/2022 6:14 PM HOUSEHOLD MANAGER Emergency [facility] [place] [address] Heather Kirkpatrick, PARKING ENFORCER-BC Urinary Symptoms Discharge Disposition: Home or Self Care [...] Coronavirus/COVID-19? No / Unsure 12/23/2022 4:49 PM HOUSEHOLD MANAGER documented as of this encounter Last Filed Vital Signs Vital Sign Reading Time Taken Comments Blood Pressure 151/98 12/23/2022 6:00 PM HOUSEHOLD MANAGER Pulse 75 12/23/2022 4:49 PM HOUSEHOLD MANAGER Temperature 36.8 ??C (98.2 ??F) 12/23/2022 4:49 PM CS T Respiratory Rate 18 12/23/2022 4:49 PM HOUSEHOLD MANAGER Oxygen Saturation 98% 12/23/2022 4:49 PM HOUSEHOLD MANAGER Inhaled Oxygen Concentration - - Weight 73.9 kg (163 lb) 12/23/2022 4:51 PM HOUSEHOLD MANAGER Height 154.9 cm (5' 1 ) 12/23/2022 4:51 PM HOUSEHOLD MANAGER Body Mass Index 30.8 12/23/2022 4:51 PM HOUSEHOLD MANAGER documented in this encounter Functional Status * [...] this encounter Discharge Instructions * Discharge Instructions* Heather Kirkpatrick PARKING ENFORCER-BC - 12/23/2022 5:52 PM HOUSEHOLD MANAGER Please continue benadryl 25-50mg as needed for facial irritation. Please be sure to increase fluid intake. Please follow up with PCP for ongoing symptoms. Return to care for worsening symptoms EHOLD MANAGER * Attachments The following attachments cannot be sent through Care Everywhere. * Dysuria Discharge Instructions, Adult (Barb[place]) documented in this encounter Medications at Time [...] as of this encounter ED Notes * Donna Vu RN - 12/23/2022 4:48 PM CST Pt reports burning and increased urinary frequency x1 week. Pt reports foul odor to urine. Denies fevers/chills, N/V. Pt also concerned for facial swelling and rash. Denies new products, facial wash, etc. EHOLD MANAGER * JULIAN Smith - 12/23/2022 4:47 PM CST History Chief Complaint Patient presents with ??? Urinary Symptoms Maria Del Carmen Ray is a 47-year-old female who presented to the ED with c/o urinary frequencyand urgency which began approx 1 week ago. Pt denies fever. Pt denies blood in urine. Pt denies nausea or vomiting. Pt reports odor to urine. Pt also reports that she feels like her face is swollen. Pt denies new exposures or new medicines. Pt denies difficulty breathing or swallowing. Pt does shave her face daily due to facial hair, but denies new products or irritation. Past Medical History: Diagnosis Date ??? Diverticulitis ??? Hypertension 06/05/2012 ??? Onychomycosis ??? Scabies ??? Tinea corporis ??? Tinea cruris Prior to Admission medications Medication Sig Start Date End Date Taking? Authorizing Provider calcium carb-cholecalciferol 600-400 MG-UNIT Tab tablet 1 tablet daily. [facility] hydrocortisone 1 % ointment Apply topically 2 (two) times daily. 09/26/21 Tashi Mesa MD multivitamin with minerals liquid Take 15 mLs by mouth daily. [facility] omeprazole 40 MG capsule TAKE 1 CAPSULE BY MOUTH DAILY BEFORE BREAKFAST FOR GERD 04/02/21 Doc [facility] Past Surgical History: Procedure Laterality Date ??? ABDOMINAL SURGERY 03/09/2021 gastric sleeve ??? APPENDECTOMY ??? COLONOSCOPY N/A 08/09/2019 COLONOSCOPY WITH polypectomy of sigmoid and rectum via hot forcep performed by Kathy [facility] MD at [facility] ??? HYSTERECTOMY Family History Problem Relation Name Age of Onset ??? Hypertension Father ??? Stroke Father ??? None Mother Social History Tobacco Use ??? Smoking status: Former Packs/day: 0.25 Types: Cigarettes Quit date: 08/09/2010 Years since quittin.3 ??? Smokeless tobacco: Never Vaping Use ??? Vaping Use: Never used Substance Use Topics ??? Alcohol use: Yes Alcohol/week: 5.0 standard drinks Types: 3 Glasses of wine per week ??? Drug use: No No LMP recorded. Patient has had a hysterectomy. Review of Systems Constitutional: Negative for fever. HENT: Positive for facial swelling. Respiratory: Negative for cough, shortness of breath, wheezing and stridor. Cardiovascular: Negative for chest pain. Gastrointestinal: Negative for abdominal pain. Genitourinary: Positive for dysuria, frequency and urgency. Negative for hematuria. All other systems reviewed and are negative. Physical Exam Filed Vitals: 12/23/22 1649 12/23/22 1651 BP: (!) 153/109 Pulse: 75 Resp: 18 Temp: 98.2 ??F (36.8 ??C) TempSrc: Oral SpO2: 98% Weight: 73.9 kg (163 lb) Height: 5' 1 (1.549 m) Physical Exam Vitals reviewed. Constitutional: Appearance: Normal appearance. She is well-developed. HENT: Head: Normocephalic and atraumatic. Right Ear: External ear normal. Left Ear: External ear normal. Nose: Nose normal. Mouth/Throat: Mouth: Mucous membranes are moist. Eyes: Conjunctiva/sclera: Conjunctivae normal. Pupils: Pupils are equal, round, and reactive to light. Cardiovascular: Rate and Rhythm: Normal rate and regular rhythm. Heart sounds: Normal heart sounds. Pulmonary: Effort: Pulmonary effort is normal. No respiratory distress. Breath sounds: Normal breath sounds. No wheezing or rales. Abdominal: General: Bowel sounds are normal. Palpations: Abdomen is soft. Tenderness: There is abdominal tenderness (mild suprapubic tenderness.). There is no right CVA tenderness or left CVA tenderness. Musculoskeletal: General: Normal range of motion. Cervical back: Normal range of motion and neck supple. Skin: General: Skin is warm and dry. Findings: Rash (scattered maculopapular erythematous rash to bilateral cheeks, no edema, no lesions, no fluctuance. ) present. Neurological: Mental Status: She is alert and oriented to person, place, and time. Psychiatric: Behavior: Behavior normal. Thought Content: Thought content normal. Labs Reviewed URINALYSIS - Abnormal; Notable for the following components: Result Value KETONES (U) TRACE (*) All other components within normal limits ED Course Procedures ED Course as of 12/23/221752 Tahira Dec 23, 2022 175 UA unremarkable. Discussed with patient. She is agreeable to increase fluids. She will f/u with PCP and continue benadryl for ongoing symptoms. [MP] ED Course User Index [MP] ISAMAR Smith- Plan of care discussed with patient. Patient agreeable with plan of care. I have discussed today's findings with the patient and provided information regarding the likely diagnosis. I believe at thistime that the patient has no medical emergency and is appropriate for outpatient management. The patient has been given information regarding their treatment, follow up and concerning symptoms for which they should seek urgent or emergent attention; all questions were answered. I have expressed thethe importance of seeking attention should there be any new, or worsening symptoms or persistence of their condition. The patient is stable at discharge and has verbalized understanding of these instructions. Medications dexamethasone PF (DECADRON) injection 5 mg (5 mg Intramuscular Given 12/23/221731) Current Discharge Medication List MDM SNOMED CT(R) 1. Dysuria DYSURIA 2. Facial dermatitis INFLAMMATORY DERMATOSIS Disposition: Discharge Follow up instructions: Antonia Meeks MD [address] [id number] [address] Call in 2 days If symptoms worsen JULIAN SMITH Please excuse any grammatical or spelling errors as this chart was documented using [employer], a dictation software. JULIAN Smith 12/23/22 5873 Cosigned by Kayla Tang MD at 12/23/2022 10:11 PM HOUSEHOLD MANAGER EHOLD MANAGER EHOLD MANAGER documented in this encounter Plan of Treatment Not on file documented as of this encounter Procedures Procedure Name Priority Date/Time Associated Diagnosis Comments HC URINALYSIS AUTO W/O MICRO STAT 12/23/2022 5:11 PM HOUSEHOLD MANAGER documented in this encounter Results * (ABNORMAL) URINALYSIS (12/23/2022 5:11 PM HOUSEHOLD MANAGER) SPECIMEN TYPE URINE CLEAN CATCH 12/23/2022 5:11 PM HOUSEHOLD MANAGER [facility] COLOR (U) LIGHT YELLOW 12/23/2022 5:46 PM HOUSEHOLD MANAGER [facility] TRANSPARENCY CLEAR 12/23/2022 5:46 PM HOUSEHOLD MANAGER [facility] SPECIFIC GRAVITY (U) 1.015 1.001 - 1.030 12/23/2022 5:46 PM HOUSEHOLD MANAGER [facility] U PH 6.0 5.0 - 9.0 12/23/2022 5:46 PM [facility] LEUKOCYTES (U) NEGATIVE NEGATIVE 12/23/2022 5:46 PM [facility] NITRITES NEGATIVE NEGATIVE 12/23/2022 5:46 PM [facility] PROTEIN (U) NEGATIVE <30 MG/DL 12/23/2022 5:46 PM HOUSEHOLD MANAGER [facility] URINE GLUCOSE NORMAL NORMAL MG/DL 12/23/2022 5:46 PM HOUSEHOLD MANAGER [facility] KETONES MG/DL (U) TRACE(A) NEGATIVE MG/DL 12/23/2022 5:46 PM HOUSEHOLD MANAGER [facility] UROBILINOGEN NORMAL NORMAL MG/DL 12/23/2022 5:46 PM HOUSEHOLD MANAGER [facility] BILIRUBIN (U) NEGATIVE NEGATIVE MG/DL 12/23/2022 5:46 PM HOUSEHOLD MANAGER [facility] BLOOD (U) NEGATIVE NEGATIVE 12/23/2022 5:46 PM HOUSEHOLD MANAGER [facility] CULTURE & SENSITIVITY INDICATED? CULTURE IS NOT INDICATED 12/23/2022 5:46 PM HOUSEHOLD MANAGER [facility] URINE SPECIMEN OBTAINED BY CLEAN CATCH PROCEDURE / Unknown 12/23/2022 5:11 PM HOUSEHOLD MANAGER us Heather Kirkpatrick PARKING ENFORCER-BC URINE ORDERABLES Final Re sult [facility] [address] [place] [address], [place] [phone] documented in this encounter Visit Diagnoses Diagnosis Dysuria- Primary Facial dermatitis Contact dermatitis and other eczema, due to unspecified cause documented in this encounter Administered Medications Inactive Administered Medications - up to 3 most recent administrations Medication Order MAR Action Action Date Dose Rate Site dexamethasone PF (DECADRON) injection 5 mg 5 mg, Intramuscular, Once, 1 dose, On Tahira 12/23/22 at 1700, Administer slowly over 1-4 minutes. Given 12/23/2022 5:32 PM HOUSEHOLD MANAGER 5 mg Right Dorsal Gluteal documented in this encounter Active and Recently Administered Medications Times are shown in HOUSEHOLD MANAGER. Scheduled Medication Order 12/21/2022 12/22/2022 12/23/2022 dexamethasone PF (DECADRON) injection 5 mg (COMPLETED) 5 mg, Intramuscular, Once, 1 dose, On Tahira 12/23/22 at 1700, Administer slowly over 1-4 minutes. 1732 (Given - Provid er: Talita Camilo RN) documented in this encounter Additional Health Concerns Assessment Noted Time PHQ-9 Depression Total Score: 2 07/17/20 20 9:06 AM CDT documented as of this encounter Care Teams Astrobiologist Relationship Specialty Start Date End Date None, Provider, PCP - General 05/06/21 10/27/24 documented as of this encounter
--- OUTSIDE RECORDS SUMMARY | 2024-11-04 23:02 | XMS_ITS | Encounter Summary ---
Author Organization [facility] Address [address] [place] [address]. [place], [place] [id number] [place] [id number] Care Team Providers Care Naval Inspector Name Role Phone None, Provider Primary Care Provider Unavaila ble Reason for Referral * Imaging (Emergency) - Closed Specialty Diagnoses / Procedures Referred By Contac t Referred To Contact RADIOLOGY Procedures CT ABD+PEL WO CON Cynthia Gonzalez PA [address] [address] Phone: tel: fax: Referral ID Status Reason Start Date Expiration Date Visits Re quested Visits Authorized [id number] Closed 06/01/2023 06/01/2024 1 1 Reason for Visit * Reason Comments Abdominal Pain Encounter Details Date Type Department Care Team (Late st Contact Info) Description 06/01/2023 10:31 AM CDT - 06/01/2023 12:25 PM CDT Emergency [facility] [place] [address] Cynthia Gonzalez PA [address] [address] Abdominal Pain Discharge Disposition: Home [...] Sign Reading Time Taken Comments Blood Pressure 154/97 06/01/2023 11:59 AM CDT Pulse 61 06/01/2023 11:59 AM CDT Temperature 36.7 ??C (98.1 ??F) 06/01/2023 10:02 AM C DT Respiratory Rate 18 06/01/2023 11:59 AM CDT Oxygen Saturation 100% 06/01/2023 11:59 AM CDT Inhaled Oxygen Concentration - - Weight 74.1 kg (163 lb 5.8 oz) 06/01/2023 10:02 AM CDT Height 157.5 cm (5' 2 ) 06/01/2023 10:02 AM CDT Body Mass Index 29.88 06/01/2023 10:02 AM CDT documented in this encounter Functional [...] Instructions * Discharge Instructions* YADIRA Rich - 06/01/2023 11:51 AM CDT Thank you for giving us the opportunity to care for you today. If at any point you are becoming more ill, please call your doctor or return here. You are always welcome back. Our practice is committed to providing you the very best in healthcare. We want to hear from you! Please fill out the survey you get from us. Your feedback is anonymous & helps us improve the patient experience for you and others in the community we serve. - DEMI Moore PA-C - Emergency Medicine Provider ADDITIONAL DISCHARGE INSTRUCTIONS: --Emergency Departments (ED) provide medical screening exams [...] care by your primary care physician or weight loss consultant.Please mention to your follow-up physician that [...] such as many narcotic drug combinations and [id number] cold medicines. * Attachments The following attachments cannot be sent through Care Everywhere. * Diverticulitis (Turkmen) documented in this encounter Medications at Time of Discharge calcium carb-cholecalcife rol 600-400 MG-UNIT Tab tablet 1 tablet daily. hydroCHLOROthiazi de (MICROZIDE) 12.5 MG capsule Take 1 capsule (12.5 mg total) by mouth daily. ciprofloxacin (CIPRO) 500 MG tablet Take 1 tablet (500 mg total) by mouth 2 (two) times daily for 7 days. 14 tablet 06/01/2023 06/08/2023 metroNIDAZOLE (FLAGYL) 500 MG tablet Take 1 tablet (500 mg total) by mouth 2 (two) times a day for 7 days. 14 tablet 06/01/2023 06/08/2023 documented as of this encounter ED Notes * Jerrica Dodd RN - 06/01/2023 12:12 PM CDT The patient voices understanding and is in agreement with discharge plans. VS stable, no distress noted. All questions and concerns addressed prior to discharge. * Fredy Grier RN - 06/01/2023 10:54 AM CDT Pt ambulatory to ED complaining of left lower abdominal pain hx of diverticulitis, states this feels similar * YADIRA Rich - 06/01/2023 10:09 AM CDT [place], [place] EMERGENCY DEPARTMENT ENCOUNTER HISTORICAL INFORMATION Primary Care Doctor: Provider MD Tania Patient information was obtained primarily from the patient, nursing notes. History/Exam limitations: None Provider at Bedside Date/Time Event User Comments 06/01/23 1008 Provider at Bedside Assessing Patient CYNTHIA GONZALEZ -- CHIEF COMPLAINT Abdominal Pain Chief Complaint Patient presents with Abdominal Pain HPI Maria Del Carmen Ray is a 47-year-old female who presents with LLQ pain. Hx of diverticulitis but not sure if this feels the same. No N/V/D, fever. Also questions a UTI because she has history ofthem, but reports no urinary symptoms. PAST MEDICAL HISTORY Past Medical History: Diagnosis Date Diverticulitis Hypertension 06/05/2012 Onychomycosis Scabies Tinea corporis Tinea cruris SURGICAL HISTORY Past Surgical History: Procedure Laterality Date ABDOMINAL SURGERY 03/09/2021 gastric sleeve APPENDECTOMY COLONOSCOPY N/A 08/09/2019 COLONOSCOPY WITH polypectomy of sigmoid and rectum via hot forcep performed by Kathy Bailey MD at [facility] GI HYSTERECTOMY CURRENT MEDICATIONS No current facility-administered medications for this encounter. Current Outpatient Medications: ciprofloxacin (CIPRO) 500 MG tablet, Take 1 tablet (500 mg total) by mouth 2 (two) times daily for 7 days., Disp: 14 tablet, Rfl: 0 metroNIDAZOLE (FLAGYL) 500 MG tablet, Take 1 tablet (500 mg total) by mouth 2 (two) times a day for7 days., Disp: 14 tablet, Rfl: 0 calcium carb-cholecalciferol 600-400 MG-UNIT Tab tablet, 1 tablet daily., Disp: , Rfl: hydroCHLOROthiazide (MICROZIDE) 12.5 MG capsule, Take 1 capsule (12.5 mg total) by mouth daily., Disp: , Rfl: ALLERGIES Review of patient's allergies indicates: Allergen Reactions Contrast [Iodine] Hives Amoxicillin Rash FAMILY HISTORY Family History Problem Relation Name Age of Onset Hypertension Father Stroke Father None Mother SOCIAL HISTORY Social History Socioeconomic History Marital status: Single Tobacco Use Smoking status: Former Packs/day: 0.25 Types: Cigarettes Quit date: 08/09/2010 Years since quittin.8 Smokeless tobacco: Never Vaping Use Vaping Use: Never used Substance and Sexual Activity Alcohol use: Yes Alcohol/week: 5.0 standard drinks Types: 3 Glasses of wine per week Drug use: No REVIEW OF SYSTEMS Constitutional: Denies fever, chills, weight loss or weakness. Skin: Denies rash. HEENT: Denies sore throat or ear pain. Respiratory: Denies cough or shortness of breath. Cardiovascular: Denies chest pain, palpitations or swelling. GI: +LLQ pain. Denies nausea, vomiting, or diarrhea. : Denies dysuria, urinary frequency. Musculoskeletal: Denies back pain. Neurologic: Denies headache, focal weakness or sensory changes. Psychiatric: Denies depression, suicidal ideation or homicidal ideation. See HPI for further details. All systems negative except as marked. Physical Exam VITAL SIGNS: Filed Vitals: 06/01/23 1002 06/01/23 1159 BP: (!) 147/97 (!) 154/97 Pulse: 69 61 Resp: 18 18 Temp: 98.1 ??F (36.7 ??C) TempSrc: Oral SpO2: 100% 100% Weight: 74.1 kg (163 lb 5.8 oz) Height: 5' 2 (1.575 m) Constitutional: Well developed, No acute distress, Non-toxic appearance. Integument: Warm, Dry, No erythema, No rash. HEENT: Normocephalic, Atraumatic, Conjunctiva normal Neck/Back- Normal range of motion, No gross abnormality Respiratory: Normal breath sounds, No respiratory distress. Cardiovascular: Normal heart rate, Normal rhythm GI: Soft, Suprapubic tenderness to palpation, No guarding or rebound. Musculoskeletal: Good ROM, no deformities noted Neurologic: Alert & oriented x 3, No focal deficits noted. Psychiatric: Affect normal, Judgment normal, Mood normal. EKG (interpreted by ED provider) No results found for this visit on 06/01/23. LABORATORY Results for orders placed or performed during the hospital encounter of 06/01/23 CBC W/DIFF AUTOMATED Result Value Ref Range WBC 11.2 (H) 4.5 - 11.0 x10'3/uL RBC 4.47 4.20 - 5.40 x10'6/uL HGB 14.1 12.0 - 16.0 G/DL HCT 43.0 38.0 - 48.0 % MCV 96.2 81.0 - 99.0 FL MCH 31.5 (H) 27.0 - 31.0 PG MCHC 32.8 32.0 - 36.0 G/DL RDW 13.2 11.5 - 14.5 % PLT 228 130 - 400 x10'3/uL MPV 9.8 9.3 - 12.2 FL DIFFERENTIAL TYPE AUTOMATED DIFFERENTIAL NEUTROPHILS 71.5 % LYMPHOCYTES 20.4 % MONOCYTES 6.0 % EOSINOPHILS 1.2 % BASOPHILS 0.5 % IMMATURE GRANS 0.4 % ABS. NEUTROPHILS TOTAL 8.03 (H) 1.80 - 7.70 x10'3/uL ABS. LYMPHOCYTES 2.29 1.00 - 4.80 x10'3/uL ABS. MONOCYTES 0.67 0.24 - 0.86 x10'3/uL ABS. EOSINOPHILS 0.14 0.04 - 0.36 x10'3/uL ABS. BASOPHILS 0.06 0.01 - 0.08 x10'3/uL ABS. IMMATURE GRANULOCYTES 0.04 0.00 - 0.49 x10'3/uL COMPREHENSIVE METABOLIC PANEL Result Value Ref Range GLUCOSE 84 70 - 99 MG/DL BUN 16 7 - 18 MG/DL CREATININE S/P/B 0.79 0.55 - 1.02 MG/DL SODIUM S/P/B 138 136 - 145 MMOL/L POTASSIUM S/P/B 4.6 3.5 - 5.1 MMOL/L CHLORIDE S/P/B 106 100 - 108 MMOL/L CO2 31.9 21 - 32 MMOL/L CALCIUM S/P/B 9.0 8.5 - 10.1 MG/DL BILIRUBIN TOTAL S/P/B 0.9 0.2 - 1.2 MG/DL TOTAL PROTEIN S/P/B 7.6 6.4 - 8.2 G/DL ALBUMIN S/P/B 3.7 3.4 - 5.0 G/DL AST 17 15 - 37 U/L ALT 19 14 - 55 U/L ALKALINE PHOSPHATASE S/P/B 80 50 - 136 U/L ANION GAP 0.1 (L) 5 - 15 MMOL/L BUN CREATININE RATIO 20.3 6 - 26 A/G RATIO 0.9 (L) 1.0 - 2.0 RATIO GFR ESTIMATE >90 >90 ML/MIN/1.73 M2 URINALYSIS Result Value Ref Range Specimen Type URINE CLEAN CATCH COLOR (U) LIGHT YELLOW TRANSPARENCY CLEAR SPECIFIC GRAVITY (U) 1.020 1.001 - 1.030 U PH 6.5 5.0 - 9.0 LEUKOCYTES (U) NEGATIVE NEGATIVE NITRITES NEGATIVE NEGATIVE PROTEIN RANDOM (U) NEGATIVE <30 MG/DL GLUCOSE (U) NORMAL NORMAL MG/DL KETONES (U) NEGATIVE NEGATIVE MG/DL UROBILINOGEN NORMAL NORMAL MG/DL BILIRUBIN (U) NEGATIVE NEGATIVE MG/DL BLOOD (U) TRACE (A) NEGATIVE CULTURE & SENSITIVITY INDICATED? CULTURE IS NOT INDICATED MUCUS FEW /LPF WBC/HPF <1 <6 /HPF RBC/HPF 4 <6 /HPF SQUAMOUS EPITHELIALS RARE /HPF RADIOLOGY CT ABD+PEL WO CON Final Result by User, [id number] (06/01 1113) EXAMINATION: CT ABDOMEN PELVIS WITHOUT CONTRAST EXAM DATE: 06/01/2023 11:02 AM REASON FOR EXAM: Left lower quadrant pain. Acute diverticulitis suspected. COMPARISON: 08/26/2022 TECHNIQUE: Axial images through the abdomen and pelvis without intravenous or enteric contrast. Dose lowering technique was used for this study which may include, but is not limited to, dose reduction techniques, automated exposure control, use of iterative reconstruction and ALARA (As low As Reasonably Achievable)/Image Gently techniques. FINDINGS: Adrenals unremarkable. Kidneys: No suspicious renal lesion or hydronephrosis within the limitations of a noncontrast study. Postsurgical changes of the stomach. Stomach and duodenum otherwise unremarkable. Spleen unremarkable. Pancreas unremarkable. Gallbladder grossly unremarkable. Liver: No evidence of intrahepatic biliary dilatation or mass within the limitations of a noncontrast study. No mesenteric lymphadenopathy. No evidence of small bowel dilatation. No retroperitoneal lymphadenopathy. Large bowel: Sigmoid diverticulosis without findings of acute diverticulitis of the midportion of the sigmoid colon. No evidence of abscess or free air. Trace free fluid. Appendix not clearly visualized. Pelvis: Urinary bladder and rectum are unremarkable. Limited evaluation of the lower thorax is unremarkable. Bones: No suspicious skeletal lesion or evidence of fracture. IMPRESSION: 1. Acute sigmoid diverticulitis. No evidence of abscess or free air. Trace free fluid. Referred By: Interpreted By: Augustin Maldonado MD, 06/01/2023 11:09 AM PROCEDURES Procedures MDM ED Course as of 06/01/23 1359 TueJun 01, [address]: IMPRESSION: 1. Acute sigmoid diverticulitis. No evidence of abscess or free air. Trace free fluid. [HS] 1120 WBC(!): 11.2 Minimal leukocytosis. [HS] 1150 Labs and UA grossly unremarkable. [HS] ED Course User Index [HS] YADIRA [...] Discharge Medications - No data to display Discharge Medication List as of 06/01/2023 12:12 PM START taking these medications Details ciprofloxacin (CIPRO) 500 MG tablet Take 1 tablet (500 mg total) by mouth 2 (two) times daily for 7days., Starting Tue06/01/2023, Until Tue06/08/2023, Eprescribe Class: Eprescribe Pharmacy: [facility] [address] [place] [address] [facility] (Ph #: [phone]) metroNIDAZOLE (FLAGYL) 500 MG tablet Take 1 tablet (500 mg total) by mouth 2 (two) times a day for 7 days., Starting Tue06/01/2023, Until Tue06/08/2023, Eprescribe Class: Eprescribe Pharmacy: [facility] [address] [place] [address] AT [facility] (Ph #: [phone]) YADIRA RICH PA 06/01/23 135 Cosigned by Diana Dillon MD at 06/02/2023 2:54 PM CDT documented in this encounter Plan of Treatment Not on file documented as of this encounter Procedures Procedure Name Priority Date/Time Associated Diagnosis Comments CT ABD+PEL WO CON STAT 06/01/2023 11: 06 AM CDT COMPREHENSIVE METABOLIC PANEL STAT 06/01/2023 11:00 AM CDT CBC W/DIFF AUTOMATED STAT 06/01/2023 11:00 AM CDT HC URINALYSIS AUTO W/O MICRO STAT 06/01/2023 10:54 AM CDT documented in this encounter Results * CT ABD+PEL WO CON (06/01/2023 11:06 AM CDT) Anatomical Region Laterality Modality Abdomen Computed Tomogra phy 06/01/2023 11:0 9 AM CDT Impressions 06/01/2023 11:12 AM CDT IMPRESSION: 1. ?? Acute sigmoid diverticulitis. ??No evidence of abscess or free air. ??Trace free fluid. Referred By: ?? Interpreted By: Augustin Maldonado MD, 06/01/2023 11:09 AM Narrative 06/01/2023 11:12 AM CDT EXAMINATION: CT ABDOMEN PELVIS WITHOUT CONTRAST EXAM DATE: 06/01/2023 11:02 AM REASON FOR EXAM: ??Left lower quadrant pain. ??Acute diverticulitis suspected. ?? COMPARISON: 08/26/2022 TECHNIQUE: Axial images through the abdomen and pelvis without intravenous or enteric contrast. Dose lowering technique was used for this study which may include, but is not limited to, dose reduction techniques, automated exposure control, use of iterative ??reconstruction and ALARA (As low As Reasonably Achievable)/Image Gently techniques. FINDINGS: Adrenals unremarkable. Kidneys: No suspicious renal lesion or hydronephrosis within the limitations of a noncontrast study. Postsurgical changes of the stomach. ??Stomach and duodenum otherwise unremarkable. ??Spleen unremarkable. ??Pancreas unremarkable. ??Gallbladder grossly unremarkable. Liver: No evidence of intrahepatic biliary dilatation or mass within the limitations of a noncontrast study. No mesenteric lymphadenopathy. No evidence of small bowel dilatation. No retroperitoneal lymphadenopathy. Large bowel: Sigmoid diverticulosis without findings of acute diverticulitis of the midportion of the sigmoid colon. ??No evidence of abscess or free air. ??Trace free fluid. Appendix not clearly visualized. Pelvis: Urinary bladder and rectum are unremarkable. Limited evaluation of the lower thorax is unremarkable. Bones: No suspicious skeletal lesion or evidence of fracture. Procedure Note Augustin Maldonado MD - 06/01/2023 EXAMINATION: CT ABDOMEN PELVIS WITHOUT CONTRAST EXAM DATE: 06/01/2023 11:02 AM REASON FOR EXAM: Left lower quadrant pain. Acute diverticulitissuspected. COMPARISON: 08/26/2022 TECHNIQUE: Axial images through the abdomen and pelvis without intravenousor enteric contrast. Dose lowering technique was used for this study which may include, but isnot limited to, dose reduction techniques, automated exposure control, use of iterativereconstruction and ALARA (As low As Reasonably Achievable)/Image Gently techniques. FINDINGS: Adrenals unremarkable. Kidneys: No suspicious renal lesion or hydronephrosis within thelimitations of a noncontrast study. Postsurgical changes of the stomach. Stomach and duodenum otherwiseunremarkable. Spleen unremarkable. Pancreas unremarkable. Gallbladdergrossly unremarkable. Liver: No evidence of intrahepatic biliary dilatation or mass within thelimitations of a noncontrast study. No mesenteric lymphadenopathy. No evidence of small bowel dilatation. No retroperitoneal lymphadenopathy. Large bowel: Sigmoid diverticulosis without findings of acutediverticulitis of the midportion of the sigmoid colon. No evidence ofabscess or free air. Trace free fluid. Appendix not clearly visualized. Pelvis: Urinary bladder and rectum are unremarkable. Limited evaluation of the lower thorax is unremarkable. Bones: No suspicious skeletal lesion or evidence of fracture. IMPRESSION: 1. Acute sigmoid diverticulitis. No evidence of abscess or free air.Trace free fluid. Referred By: Interpreted By: Augustin Maldonado MD, 06/01/2023 11:09 AM us [address] MAY CT Final Resul t * (ABNORMAL) COMPREHENSIVE METABOLIC PANEL (06/01/2023 11:00 AM CDT) [facility] GLUCOSE 84 70 - 99 MG/DL 06/01/2023 11:42 AM CDT [facility] BUN 16 7 - 18 MG/DL 06/01/2023 11:42 AM CDT [facility] CREATININE S/P/B 0.79 0.55 - 1.02 MG/DL 06/01/2023 11:42 AM CDT [facility] SODIUM S/P/B 138 136 - 145 MMOL/L 06/01/2023 11:42 AM CDT [facility] POTASSIUM S/P/B 4.6 3.5 - 5.1 MMOL/L 06/01/2023 11:42 AM CDT [facility] CHLORIDE S/P/B 106 100 - 108 MMOL/L 06/01/2023 11:42 AM CDT [facility] CO2 31.9 21 - 32 MMOL/L 06/01/2023 11:42 AM CDT [facility] CALCIUM S/P/B 9.0 8.5 - 10.1 MG/DL 06/01/2023 11:42 AM CDT [facility] BILIRUBIN TOTAL S/P/B 0.9 0.2 - 1.2 MG/DL 06/01/2023 11:42 AM CDT [facility] Comment: THIS ASSAY IS NOT RECOMMENDED FOR PATIENTS UNDERGOING TREATMENT WITH ELTROMBOPAG DUE TO THE POTENTIAL FOR FALSELY ELEVATED RESULTS. TOTAL PROTEIN S/P/B 7.6 6.4 - 8.2 G/DL 06/01/2023 11:42 AM CDT [facility] ALBUMIN S/P/B 3.7 3.4 - 5.0 G/DL 06/01/2023 11:42 AM CDT [facility] AST 17 15 - 37 U/L 06/01/2023 11:42 AM CDT [facility] ALT 19 14 - 55 U/L 06/01/2023 11:42 AM CDT [facility] ALKALINE PHOSPHATASE S/P/B 80 50 - 136 U/L 06/01/2023 11:42 AM CDT [facility] ANION GAP 0.1(L) 5 - 15 MMOL/L 06/01/2023 11:42 AM CDT [facility] BUN CREATININE RATIO 20.3 6 - 06/01/2023 11:42 AM CDT [facility] A/G RATIO 0.9(L) 1.0 - 2.0 RATIO 06/01/2023 11:42 AM CDT [facility] GFR ESTIMATE >90 >90 ML/MIN/1.7 3 M2 06/01/2023 11:42 AM CDT [facility] Comment: NOTE: eGFR is not calculated for patients <18 years of age. This is an estimated GFR calculation using the new CKD EPI creatinine equation without race and so does not require a correction factor for race. This estimated GFR should not be used for calculating drug doses. 06/01/2023 11:0 0 AM CDT us Cynthia [facility]AT[facility] Final Resul t [facility] [address] [place] [address], * (ABNORMAL) CBC W/DIFF AUTOMATED (06/01/2023 11:00 AM CDT) WBC 11.2(H) 4.5 - 11.0 x10'3/uL 06/01/2023 11:11 AM CDT [facility] RBC 4.47 4.20 - 5.40 x10'6/uL 06/01/2023 11:11 AM CDT [facility] HGB 14.1 12.0 - 16.0 G/DL 06/01/2023 11:11 AM CDT [facility] HCT 43.0 38.0 - 48.0 % 06/01/2023 11:11 AM CDT [facility] MCV 96.2 81.0 - 99.0 FL 06/01/2023 11:11 AM CDT [facility] MCH 31.5(H) 27.0 - 31.0 PG 06/01/2023 11:11 AM CDT [facility] MCHC 32.8 32.0 - 36.0 G/DL 06/01/2023 11:11 AM CDT [facility] RDW 13.2 11.5 - 14.5 % 06/01/2023 11:11 AM CDT [facility] PLT 228 130 - 400 x10'3/uL 06/01/2023 11:11 AM CDT [facility] MPV 9.8 9.3 - 12.2 FL 06/01/2023 11:11 AM CDT [facility] DIFFERENTIAL TYPE AUTOMATED DIFFERENTIAL 06/01/2023 11:11 AM CDT [facility] NEUTROPHILS % 71.5 % 06/01/2023 11:11 AM CDT [facility] LYMPHOCYTES % 20.4 % 06/01/2023 11:11 AM CDT [facility] MONOCYTES % 6.0 % 06/01/2023 11:11 AM CDT [facility] EOSINOPHILS 1.2 % 06/01/2023 11:11 AM CDT [facility] BASOPHILS 0.5 % 06/01/2023 11:11 AM CDT [facility] IMMATURE GRANS % 0.4 % 06/01/20 11:11 AM CDT [facility] ABS. NEUTROPHILS TOTAL 8.03(H) 1.80 - 7.70 x10'3/uL 06/01/2023 11:11 AM CDT [facility] ABS. LYMPHOCYTES 2.29 1.00 - 4.80 x10'3/uL 06/01/2023 11:11 AM CDT [facility] ABS. MONOCYTES 0.67 0.24 - 0.86 x10'3/uL 06/01/2023 11:11 AM CDT [facility] ABS. EOSINOPHILS 0.14 0.04 - 0.36 x10'3/uL 06/01/2023 11:11 AM CDT [facility] ABS. BASOPHILS 0.06 0.01 - 0.08 x10'3/uL 06/01/2023 11:11 AM CDT [facility] ABS. IMMATURE GRANULOCYTES 0.04 0.00 - 0.49 x10'3/uL 06/01/2023 11:11 AM CDT [facility] 06/01/2023 11:0 0 AM CDT Cyn[facility] Final Resul t [facility] [address] [place] [address], * (ABNORMAL) URINALYSIS (06/01/2023 10:54 AM CDT) SPECIMEN TYPE URINE CLEAN CATCH 06/01/2023 11:03 AM CDT [facility] COLOR (U) LIGHT YELLOW 06/01/2023 11:16 AM T [facility] TRANSPARENCY CLEAR 06/01/2023 11:16 AM [facility] SPECIFIC GRAVITY (U) 1.020 1.001 - 1.030 06/01/2023 11:16 AM T [facility] U PH 6.5 5.0 - 9.0 06/01/2023 11:16 AM T [facility] LEUKOCYTES (U) NEGATIVE NEGATIVE 06/01/2023 11:16 AM T [facility] NITRITES NEGATIVE NEGATIVE 06/01/2023 11:16 AM [facility] PROTEIN RANDOM (U) NEGATIVE <30 MG/DL 06/01/2023 11:16 AM [facility] GLUCOSE (U) NORMAL NORMAL MG/DL 06/01/2023 11:16 AM T [facility] KETONES MG/DL (U) NEGATIVE NEGATIVE MG/DL 06/01/2023 11:16 AM T [facility] UROBILINOGEN NORMAL NORMAL MG/DL 06/01/2023 11:16 AM [facility] BILIRUBIN (U) NEGATIVE NEGATIVE MG/DL 06/01/2023 11:16 AM [facility] BLOOD (U) TRACE(A) NEGATIVE 06/01/2023 11:16 AM [facility] CULTURE & SENSITIVITY INDICATED? CULTURE IS NOT INDICATED 06/01/2023 11:16 AM T [facility] MUCUS FEW /LPF 06/01/2023 11:16 AM [facility] WBC/HPF <1 <6 /HPF 06/01/2023 11:16 AM T [facility] RBC/HPF 4 <6 /HPF 06/01/2023 11:16 AM CDT [facility] SQUAMOUS EPITHELIALS RARE /HPF 06/01/2023 11:16 AM CDT [facility] URINE SPECIMEN OBTAINED BY CLEAN CATCH PROCEDURE / Unknown 06/01/2023 10:54 AM CDT us Cynthia MAY URINE ORDERABLES Final Resu lt [facility] [address] [place] [address], [place] [phone] documented in this encounter Visit Diagnoses Diagnosis Diverticulitis- Primary Diverticulitis of colon (without mention of hemorrhage) documented in this encounter Additional Health Concerns Assessment Noted Time PHQ-9 Depression Total Score: 2 07/17/20 20 9:06 AM CDT documented as of this encounter Care Teams Naval Inspector Relationship Specialty Start Date End Date None, Provider, PCP - General 05/06/21 10/27/24 documented as of this encounter
--- OUTSIDE RECORDS SUMMARY | 2024-11-04 23:02 | XMS_ITS | Encounter Summary ---
Author Organization [facility] Address [address] [place] [address]. [place], [place] [id number] [place] [id number] Care Team Providers Care Pier Hand Helper Name Role Phone Unavailable Primary Care Provider Unavailabl e Reason for Visit * Reason Comments Lab (SCAN) Encounter Details Date Type Department Care Team (Latest Contact Info) Description 01/08/2021 Scan [facility] Scanned, Documents [...] Status No 06/01/2019 2:55 AM CDT Teja Segudno RN Active * Do you have difficulty [...] Associated Diagnosis Comments OUTSIDE LAB (SCAN ORDER) 01/08/2021 documented in this encounter Results * OUTSIDE LAB (SCAN) (01/08/2021) 01/08/2021 Narrative 01/08/2021 Ordered by an unspecified provider. us Documents Scanned SCANNING Final Result documented in this encounter Visit Diagnoses Not on filedocumented in this encounter Additional Health Concerns Assessment Noted Time PHQ-9 Depression Total Score: 2 07/17/20 20 9:06 AM CDT documented as of this encounter
--- OUTSIDE RECORDS SUMMARY | 2024-11-04 23:02 | XMS_ITS | Encounter Summary ---
Author Organization [facility] Address [address] [place] [address]. [place], [place] [id number] [place] [id number] Care Team Providers Care Supervisor Sewer System Name Role Phone Unavailable Primary Care Provider Unavailabl e Encounter Details Date Type Department Care Team (Latest Contact Info) Description 07/09/2020 Scan [facility] Scanned, Documents [...]
--- OUTSIDE RECORDS SUMMARY | 2024-11-04 23:02 | XMS_ITS | Encounter Summary ---
Author Organization [facility] Address [facility] [facility] [place] [address] [place] [address] Care Team Providers Care Automatic Car Wash Attendant Name Role Phone Unavailable Primary Care Provider Unavailabl e Encounter Details Date Type Department Care Team (Late st Contact Info) Description 07/17/2020 Orders Only [facility] - [place] [address] [place] [address] Rose Marie Norton, [employer]OB DEVELOPER [employer] [address] [place] [address] Social History Tobacco Use Types Packs/Day Years [...]
--- OUTSIDE RECORDS SUMMARY | 2024-11-04 23:02 | XMS_ITS | Encounter Summary ---
Author Organization [facility] Address [address] [place] [address]. [place], [place] [id number] [place] [id number] Care Team Providers Care Planting Material Unloader Name Role Phone None, Provider Primary Care Provider Hayder bowles Encounter Details Date Type Department Care Team (Latest Contact Info) Description 01/01/2023 Travel Social History Tobacco Use Types Packs/Day [...] Coronavirus/COVID-19? No / Unsure 01/01/2023 12:20 AM SANITATION INSPECTOR documented as of this encounter Functional Status [...] documented as of this encounter Care Teams Planting Material Unloader Relationship Specialty Start Date End Date None, Provider, PCP - General 05/06/21 10/27/24 documented as of this encounter
--- OUTSIDE RECORDS SUMMARY | 2024-11-04 23:02 | XMS_ITS | Encounter Summary ---
Author Organization [facility] Address [address] [place] [address]. [place], [place] [id number] [place] [id number] Care Team Providers Care Executive Talent Acquisition Consultant Name Role Phone Unavailable Primary Care Provider Unavailabl e Reason for Referral * Imaging (Emergency) - Closed Specialty Diagnoses / Procedures Referred By Veronica t Referred To Contact RADIOLOGY Procedures CT ABD+PEL W CON Jaylan Flower MD [address] [place] [address] Phone: tel: fax: Referral ID Status Reason Start Date Expiration Date Visits Re quested Visits Authorized [id number] Closed 04/28/2021 05/28/2022 1 1 Reason for Visit * Reason Comments Abdominal Pain Encounter Details Date Type Department Care Team (Late st Contact Info) Description 04/28/2021 1:16 AM CDT - 04/28/2021 6:04 AM CDT Emergency [facility] [place] [address] Jaylan Flower MD [address] [place], [place] [id number] Abdominal Pain Discharge Disposition: Home or Self [...] Sign Reading Time Taken Comments Blood Pressure 120/60 04/28/2021 5:51 AM CDT Pulse 73 04/28/2021 5:51 AM CDT Temperature 36.4 ??C (97.6 ??F) 04/28/2021 12:05 AM C DT Respiratory Rate 18 04/28/2021 5:51 AM CDT Oxygen Saturation 99% 04/28/2021 5:51 AM CDT Inhaled Oxygen Concentration - - Weight 96.8 kg (213 lb 6.5 oz) 04/28/2021 12:03 AM CDT Height 154.9 cm (5' 1 ) 04/28/2021 12:03 AM CDT Body Mass Index 40.32 04/28/2021 12:03 AM CDT documented in this encounter Functional [...] this encounter Discharge Instructions * Discharge Instructions* Jaylan Flower MD - 04/28/2021 5:31 AM CDT Please follow a clear liquid diet (see attached instructions) for 3 days. After that, please reintroduce solid foods with a diet of bananas, rice, applesauce, and toast (known as the BRAT diet) for 3days. If at the end of this 6-day period you are still experiencing significant nausea, vomiting, and/or diarrhea, please return to the emergency department for further evaluation. Emergency Departments (ED) provide medical screening exams and initial stabilizing treatment of emergency medical conditions. Medicine is an inexact science and many conditions cannot be diagnosed orcompletely treated during a single ED visit. Your treating healthcare provider(s) today feel your condition has been stabilized so further care as an outpatient is reasonable. Emergency care does notsubstitute for complete, ongoing, or follow-up care by your primary care physician or senior microsoft consultant. Your medication list was reviewed prior to treatment, [...] such as many narcotic drug combinations and [id number] cold medicines. Dr. Flower's Specific Instructions: After your visit your pain should be improving. If it is not starting to get better in the next 12 to 24 hours then you need to come back to the Emergency Room for a recheck. Return immediately for pain that is getting worse. Often we are unable to determine the cause of abdominal pain during your first visit. Sometimes your symptoms will go away in which case we don't need to do any additional evaluation. Other times your symptoms will change and these changes help us figure out why you are sick. Return to the Emergency Room for any new or changing symptoms. If you are improving in 1-2 days but not well yet then please follow up with your usual doctor for a recheck. Your feedback is important to us. Please fill out the survey you will get in the mail. We need yourinput to give you the best care possible! With your feedback we??ll know where we need to focus ourefforts to provide very good service to our patients! * Attachments The following attachments cannot be sent through Care Everywhere. * Clear Liquid Diet (Vietnamese) * Diverticulitis Discharge Instructions (Vietnamese) documented in this encounter Medications at Time of Discharge cefUROXime 500 MG tabletIndications:Ac rosebud diverticulitis Take 1 tablet (500 mg total) by mouth 2 (two) times daily for 10 days. 20 tablet 04/28/2021 1 HYDROcodone-acetamin ophen 5-325 MG tabletIndications:Ac rosebud Pain < 3 Day Supply Take 1 tablet by mouth every 6 (six) hours as needed for Pain. Indications: Acute Pain < 3 Day Supply 7 tablet 04/28/2021 1 omeprazole 40 MG capsule TAKE 1 CAPSULE BY MOUTH DAILY BEFORE BREAKFAST FOR GERD 04/02/2021 3 ondansetron 4 MG disintegrating tabletIndications:Ac rosebud diverticulitis Take 1 tablet (4 mg total) by mouth every 4 (four) hours as needed. 20 tablet 04/28/2021 1 Probiotic Product (ACIDOPHILUS/GOAT MILK) Cap Take 1 capsule by mouth daily. 02/27/2021 1 ursodiol 300 MG capsule Take 300 mg by mouth 2 (two) times daily. 02/27/2021 1 documented as of this encounter ED Notes * Jaylan Flower MD - 04/28/2021 5:23 AM CDT Chief Complaint Chief Complaint Patient presents with ??? Abdominal Pain History of Present Illness The patient is a very pleasant 45-year-old female examined in the emergency department in bed #13. She presents today complaining of lower abdominal cramping. Onset was 2 days prior to presentation. No clear palliative or provoking factors were identified. The patient is concerned if she had gastric sleeve surgery on 2020. Quality is described as lower abdominal cramping. There is no radiation. Severity is mild to moderate. Time course constant since onset. Medical History ALLERGIES: Allergies Allergen Reactions ??? Amoxicillin Rash MEDICATIONS: Prior to Admission medications Medication Sig Start Date End Date Taking? Authorizing Provider cefUROXime 500 MG tablet Take 1 tablet (500 mg total) by mouth 2 (two) times daily for 10 days. 04/28/21 05/08/21 Yes Jaylan Flower MD HYDROcodone-acetaminophen 5-325 MG tablet Take 1 tablet by mouth every 6 (six) hours as needed for Pain. Indications: Acute Pain < 3 Day Supply 04/28/21 Yes Jaylan Flower MD ondansetron 4 MG disintegrating tablet Take 1 tablet (4 mg total) by mouth every 4 (four) hours as needed. 04/28/21 Yes Jaylan Flower MD PAST MEDICAL HISTORY: Past Medical History: Diagnosis Date ??? Diverticulitis ??? Hypertension 06/05/2012 ??? Onychomycosis ??? Scabies ??? Tinea corporis ??? Tinea cruris PAST SURGICAL HISTORY: Past Surgical History: Procedure Laterality Date ??? ABDOMINAL SURGERY 03/09/2021 gastric sleeve ??? APPENDECTOMY ??? COLONOSCOPY N/A 08/09/2019 COLONOSCOPY WITH polypectomy of sigmoid and rectum via hot forcep performed by Kathy Bailey MD at [facility] ??? HYSTERECTOMY FAMILY HISTORY: Family History Problem Relation Name Age of Onset ??? Hypertension Father ??? Stroke Father ??? None Mother SOCIAL HISTORY: Social History Tobacco Use ??? Smoking status: Former Smoker Packs/day: 0.25 Types: Cigarettes Quit date: 08/09/2010 Years since quittin.7 ??? Smokeless tobacco: Never Used Substance Use Topics ??? Alcohol use: Not Currently ??? Drug use: No Review of Systems Review of Systems REVIEW OF SYSTEMS: The patient denies fevers, chills, or sweats. Complains of nausea, denies vomiting, diarrhea, or constipation, complains of abdominal pain. Denies chest pain, shortness of breath, dyspnea on exertion, or palpitations. Denies headache, loss of consciousness, or seizures. Denies dysuria or hematuria. Ten systems reviewed and negative except as described above or in the HPI. Physical Exam Filed Vitals: 04/28/21 0003 04/28/21 0005 04/28/21 0330 BP: 117/78 130/76 Pulse: 70 76 Resp: 16 17 Temp: 97.6 ??F (36.4 ??C) TempSrc: Temporal SpO2: 98% 99% Weight: 96.8 kg (213 lb 6.5 oz) Height: 5' 1 (1.549 m) Physical Exam VITALS: Reviewed GENERAL: The patient is a very pleasant 45-year-old female examined in the Emergency Department. Patient is in no acute distress at the time of my exam. HEENT: Normocephalic, atraumatic. Pupils are PERRL. Eyes focus and track. Sclerae are nonicteric and not injected. The face is symmetric, round, and fully expressive. Hearing is adequate to conversational voice. Ears are without discharge. Nares are grossly patent, and also without discharge. Mucous membranes are moist. NECK: No JVD, tracheal deviation, or subcutaneous emphysema is noted. CHEST: The thoracic cage is stable to palpation and nontender. LUNGS: Clear to auscultation bilaterally without wheezes, rales or rhonchi. Equal inspiratory and expiratory phases. HEART: Regular rate and rhythm, normal sounds. ABDOMEN: The patient has midline periumbilical tenderness without any obvious hernia. Slight voluntary guarding no rebound or rigidity is appreciated. Otherwise, the patient abdomen is soft and nondistended. No masses, bruits or hepatosplenomegaly are noted. EXTREMITIES: No clubbing, cyanosis, edema, or evidence of trauma is noted. NEURO: No gross focal neuro deficits are appreciated. GCS = 15. No seizure activity is noted in theemergency department. PSYCHIATRIC: The patient's mood, affect and interaction are appropriate to setting. SKIN: Normal color, temperature, and turgor noted throughout. Diagnostic Studies / Procedures ELECTROCARDIOGRAMS: No results found for this visit on 04/28/21. LABORATORY STUDIES: Results for orders placed or performed during the hospital encounter of 04/28/21 CBC W/DIFF AUTOMATED Result Value Ref Range WBC 10.1 4.5 - 11.0 x10'3/uL RBC 4.31 4.20 - 5.40 x10'6/uL HGB 13.0 12.0 - 16.0 G/DL HCT 39.3 38.0 - 48.0 % MCV 91.2 81.0 - 99.0 FL MCH 30.2 27.0 - 31.0 PG MCHC 33.1 32.0 - 36.0 G/DL RDW 13.8 11.5 - 14.5 % PLT 224 130 - 400 x10'3/uL MPV 11.0 9.3 - 12.2 FL DIFFERENTIAL TYPE AUTOMATED DIFFERENTIAL NEUTROPHILS 63.4 % LYMPHOCYTES 29.8 % MONOCYTES 5.4 % EOSINOPHILS 0.8 % BASOPHILS 0.4 % IMMATURE GRANS 0.2 % ABS. NEUTROPHILS TOTAL 6.41 1.80 - 7.70 x10'3/uL ABS. LYMPHOCYTES 3.02 1.00 - 4.80 x10'3/uL ABS. MONOCYTES 0.55 0.24 - 0.86 x10'3/uL ABS. EOSINOPHILS 0.08 0.04 - 0.36 x10'3/uL ABS. BASOPHILS 0.04 0.01 - 0.08 x10'3/uL ABS. IMMATURE GRANULOCYTES 0.02 0.00 - 0.49 x10'3/uL COMPREHENSIVE METABOLIC PANEL Result Value Ref Range GLUCOSE 69 (L) 70 - 99 MG/DL BUN 18 7 - 18 MG/DL CREATININE S/P/B 0.73 0.55 - 1.02 MG/DL SODIUM 140 136 - 145 MMOL/L POTASSIUM 3.9 3.5 - 5.1 MMOL/L CHLORIDE S/P/B 107 100 - 108 MMOL/L CO2 25.5 21 - 32 MMOL/L CALCIUM 8.8 8.5 - 10.1 MG/DL BILIRUBIN TOTAL S/P/B 0.6 0.2 - 1.2 MG/DL TOTAL PROTEIN S/P/B 7.2 6.4 - 8.2 G/DL ALBUMIN S/P/B 3.7 3.4 - 5.0 G/DL AST 16 15 - 37 U/L ALT 32 14 - 55 U/L ALKALINE PHOSPHATASE S/P/B 65 50 - 136 U/L ANION GAP 7.5 5 - 15 MMOL/L BUN CREATININE RATIO 24.6 6 - 26 A/G RATIO 1.1 1.0 - 2.0 RATIO eGFR Non-Afr. Amer. >90 >90 ML/MIN/1.73 M2 eGFR Afr. Amer. >90 >90 ML/MIN/1.73 M2 LIPASE Result Value Ref Range LIPASE 274 73 - 393 UNITS/L LACTIC ACID Result Value Ref Range LACTIC ACID 0.8 0.4 - 2.0 MMOL/L MAGNESIUM Result Value Ref Range MAGNESIUM 2.2 1.8 - 2.4 MG/DL URINALYSIS Result Value Ref Range Specimen Type URINE CLEAN CATCH COLOR (U) YELLOW TRANSPARENCY CLEAR Specific Ione (U) 1.036 (H) 1.001 - 1.030 U PH 5.5 5.0 - 9.0 LEUKOCYTE ESTERASE NEGATIVE NEGATIVE NITRITES NEGATIVE NEGATIVE PROTEIN (U) 30 (H) <30 MG/DL URINE GLUCOSE NORMAL NORMAL MG/DL U KETONES 150 (A) NEGATIVE MG/DL UROBILINOGEN 2.0 (A) NORMAL MG/DL BILIRUBIN (U) NEGATIVE NEGATIVE MG/DL BLOOD NEGATIVE NEGATIVE CULTURE & SENSITIVITY INDICATED? CULTURE IS NOT INDICATED MUCUS MANY /LPF RBC/HPF 4 <6 /HPF SQUAMOUS EPITHELIALS FEW /HPF IMAGING STUDIES CT ABD+PEL W CON Final Result by User, [id number] (04/28 513) EXAMINATION: CT Abdomen and Pelvis with contrast EXAM DATE/TIME: 04/28/2021 2:35 AM REASON FOR EXAM: Abdominal abscess/infection suspected COMPARISON: 06/01/2019 TECHNIQUE: Computed tomography of the abdomen and pelvis was obtained after administration of 100 mL Isovue-370 intravenous contrast. Sagittal and coronal reconstruction. A dose lowering technique was used for this procedure, which may include, but is not limited to, dose reduction technique, automated exposure control, iterative reconstruction, ALARA (As Low As Reasonably Achievable), or Image Gently techniques. FINDINGS: CT ABDOMEN: Visualized portions of the lung bases demonstrate no acute abnormality. The liver is normal in size. No focal intrahepatic lesions are demonstrated. No evidence of cholelithiasis or gallbladder wall thickening. No biliary duct dilatation is demonstrated. The spleen, pancreas and adrenal glands are unremarkable. Kidneys demonstrate no evidence of abnormal striated nephrogram or perirenal inflammatory stranding or fluid. No evidence of ureteral stone nor hydronephrosis on either side. No evidence of renal mass lesion. There is a focal area of acute inflammatory change associated with diverticuli and wall thickening in the proximal descending colon. Findings are consistent with acute diverticulitis. No evidence of perforation or abscess. No evidence of mechanical bowel obstruction. No other evidence of inflammatory change, abscess or ascites. No significant lymphadenopathy. Postoperative changes noted involving the stomach. Abdominal aorta and IVC are unremarkable. CT PELVIS: No evidence of pelvic mass or adenopathy. No acute inflammatory change, abscess or ascites. =====IMPRESSION:===== 1. Focal acute inflammatory change surrounding a segment of proximal descending colon in the left upper quadrant. This is associated with diverticulitis felt to likely represent acute diverticulitis. No evidence of perforation or abscess. With the extent of wall thickening present, correlation with short-term progress CT abdomen/pelvis in 2-3 weeks would be recommended to assess for resolution and exclude possibility of underlying descending colon neoplasm. 2. No evidence of ureteral stone or hydronephrosis. Referred By: JAYLAN FLOWER Interpreted By: Dionicio Ribeiro MD, 04/28/2021 5:04 AM ED Course / Medical Decision Making I estimate there is LOW risk for ACUTE APPENDICITIS, BOWEL OBSTRUCTION, CHOLECYSTITIS, DIVERTICULITIS, INCARCERATED HERNIA, MESENTERIC ISCHEMIA, PANCREATITIS, or PERFORATED BOWEL or ULCER, thus I consider the discharge disposition reasonable. Also, there is no evidence or peritonitis, sepsis, or toxicity. We have discussed the diagnosis and risks, and we agree with discharging home to follow-up with their primary doctor. We also discussed returning to the Emergency Department immediately if newor worsening symptoms occur. We have discussed the symptoms which are most concerning (e.g., bloody stool, fever, changing or worsening pain, vomiting) that necessitate immediate return. The patient appears to have acute diverticulitis. She is started on antibiotics, given pain control, and instructed in use of a clear liquid diet for the next 3 days to be followed by the BRAT diet for 3 days after that. She is referred to primary care. I have reviewed the patient's records contained within the [place] Pres[place] There are no signs of prescription drug misuse or diversion that rise to a level to alter the risk versus benefit analysis with regard to the prescription(s) I am providing the patient today. Clinical Impression Acute diverticulitis (Primary) Disposition: Discharge I dictated portions of this note using [employer] speech recognition software. Occasional wrong word or sound-alike substitutions may have occurred due to the inherent limitations of voice recognition software. Please read the chart carefully and recognize, using context, where the substitutions may have occurred. If there are any questions, please contact me via [employer] or other HIPAA compliant communication medium for clarification. 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 Reports last BM today was normal. Denies any emesis. Reports having gastric sleeve surgery on 03/09. documented in this encounter Plan of Treatment Not on file documented as of this encounter Procedures Procedure Name Priority Date/Time Associated Diagnosis Comments CT ABD+PEL W CON STAT 04/28/2021 4:43 AM CDT HC URINALYSIS AUTO W/O MICRO STAT 04/28/2021 3:44 AM CDT COMPREHENSIVE METABOLIC PANEL STAT 04/28/2021 3:21 AM CDT LACTIC ACID TIMED 04/28/2021 3:21 AM CDT CULTURE, BACTERIA, BLOOD STAT 04/28/2021 3:21 AM CDT CULTURE, BACTERIA, BLOOD STAT 04/28/2021 3:21 AM CDT CBC W/DIFF AUTOMATED STAT 04/28/2021 3:21 AM CDT MAGNESIUM STAT 04/28/2021 3:21 AM CDT LIPASE STAT 04/28/2021 3:21 AM CDT documented in this encounter Results * CT ABD+PEL W CON (04/28/2021 4:43 AM CDT) Anatomical Region Laterality Modality Abdomen Computed Tomogra phy 04/28/2021 5:04 AM CDT Impressions 04/28/2021 5:12 AM CDT =====IMPRESSION:===== 1. Focal acute inflammatory change surrounding a segment of proximal descending colon in the left upper quadrant. This is associated with diverticulitis felt to likely represent acute diverticulitis. No evidence of perforation or abscess. With the extent of wall thickening present, correlation with short-term progress CT abdomen/pelvis in 2-3 weeks would be recommended to assess for resolution and exclude possibility of underlying descending colon neoplasm. 2. No evidence of ureteral stone or hydronephrosis. Referred By: JAYLAN FLOWER Interpreted By: Dionicio Ribeiro MD, 04/28/2021 5:04 AM Narrative 04/28/2021 5:12 AM CDT EXAMINATION: CT Abdomen and Pelvis with contrast EXAM DATE/TIME: 04/28/2021 2:35 AM REASON FOR EXAM: ??Abdominal abscess/infection suspected ? COMPARISON: 06/01/2019 TECHNIQUE: Computed tomography of the abdomen and pelvis was obtained after administration of 100 mL Isovue-370 intravenous contrast. Sagittal and coronal reconstruction. A dose lowering technique was used for this procedure, which may include, but is not limited to, dose reduction technique, automated exposure control, iterative reconstruction, ALARA (As Low As Reasonably Achievable), or Image Gently techniques. FINDINGS: CT ABDOMEN: Visualized portions of the lung bases demonstrate no acute abnormality. The liver is normal in size. No focal intrahepatic lesions are demonstrated. No evidence of cholelithiasis or gallbladder wall thickening. No biliary duct dilatation is demonstrated. The spleen, pancreas and adrenal glands are unremarkable. Kidneys demonstrate no evidence of abnormal striated nephrogram or perirenal inflammatory stranding or fluid. No evidence of ureteral stone nor hydronephrosis on either side. No evidence of renal mass lesion. There is a focal area of acute inflammatory change associated with diverticuli and wall thickening in the proximal descending colon. Findings are consistent with acute diverticulitis. No evidence of perforation or abscess. No evidence of mechanical bowel obstruction. No other evidence of inflammatory change, abscess or ascites. No significant lymphadenopathy. Postoperative changes noted involving the stomach. Abdominal aorta and IVC are unremarkable. CT PELVIS: No evidence of pelvic mass or adenopathy. No acute inflammatory change, abscess or ascites. Procedure Note Dionicio Ribeiro MD - 04/28/2021 EXAMINATION: CT Abdomen and Pelvis with contrast EXAM DATE/TIME: 04/28/2021 2:35 AM REASON FOR EXAM: Abdominal abscess/infection suspected COMPARISON: 06/01/2019 TECHNIQUE: Computed tomography of the abdomen and pelvis was obtainedafter administration of 100 mL Isovue-370 intravenous contrast. Sagittal and coronal reconstruction. A dose lowering technique was used for this procedure, which may include, but is not limited to, dose reduction technique, automated exposure control, iterative reconstruction, ALARA(As Low As Reasonably Achievable), or Image Gently techniques. FINDINGS: CT ABDOMEN: Visualized portions of the lung bases demonstrate no acute abnormality. The liver is normal in size. No focal intrahepatic lesions are demonstrated. No evidence of cholelithiasis or gallbladder wallthickening. No biliary duct dilatation is demonstrated. The spleen, pancreas and adrenal glands are unremarkable. Kidneys demonstrate no evidence of abnormal striated nephrogram or perirenal inflammatory stranding or fluid. No evidence of ureteral stone nor hydronephrosis on either side. No evidence of renal mass lesion. There is a focal area of acute inflammatory change associated with diverticuli and wall thickening in the proximal descending colon.Findings are consistent with acute diverticulitis. No evidence of perforation or abscess. No evidence of mechanical bowel obstruction. No other evidenceof inflammatory change, abscess or ascites. No significant lymphadenopathy. Postoperative changes noted involvingthe stomach. Abdominal aorta and IVC are unremarkable. CT PELVIS: No evidence of pelvic mass or adenopathy. No acuteinflammatory change, abscess or ascites. =====IMPRESSION:===== 1. Focal acute inflammatory change surrounding a segment of proximal descending colon in the left upper quadrant. This is associated with diverticulitis felt to likely represent acute diverticulitis. Noevidence of perforation or abscess. With the extent of wall thickening present, correlation with short-term progress CT abdomen/pelvis in 2-3 weekswould be recommended to assess for resolution and exclude possibility of underlying descending colon neoplasm. 2. No evidence of ureteral stone or hydronephrosis. Referred By: JAYLAN FLOWER Interpreted By: Dionicio Ribeiro MD, 04/28/2021 5:04 AM Jaylan Flower MD CT Final Result * (ABNORMAL) URINALYSIS (04/28/2021 3:44 AM CDT) SPECIMEN TYPE URINE CLEAN CATCH 04/28/2021 3:45 AM CDT [facility] COLOR (U) YELLOW 04/28/2021 4:22 AM CDT [facility] TRANSPARENCY CLEAR 04/28/2021 4:22 AM CDT [facility] SPECIFIC GRAVITY (U) 1.036(H) 1.001 - 1.030 04/28/2021 4:22 AM CDT [facility] U PH 5.5 5.0 - 9.0 04/28/2021 4:22 AM CDT [facility] LEUKOCYTES (U) NEGATIVE NEGATIVE 04/28/2021 4:22 AM CDT [facility] NITRITES NEGATIVE NEGATIVE 04/28/2021 4:22 AM T [facility] PROTEIN (U) 30(H) <30 MG/DL 04/28/2021 4:22 AM CDT [facility] URINE GLUCOSE NORMAL NORMAL MG/DL 04/28/2021 4:22 AM T [facility] KETONES MG/DL (U) 150(A) NEGATIVE MG/DL 04/28/2021 4:22 AM CDT [facility] UROBILINOGEN 2.0(A) NORMAL MG/DL 04/28/2021 4:22 AM T [facility] BILIRUBIN (U) NEGATIVE NEGATIVE MG/DL 04/28/2021 4:22 AM CDT [facility] BLOOD (U) NEGATIVE NEGATIVE 04/28/2021 4:22 AM T [facility] CULTURE & SENSITIVITY INDICATED? CULTURE IS NOT INDICATED 04/28/2021 4:22 AM T [facility] MUCUS MANY /LPF 04/28/2021 4:22 AM CDT [facility] RBC/HPF 4 <6 /HPF 04/28/2021 4:22 AM CDT [facility] SQUAMOUS EPITHELIALS FEW /HPF 04/28/2021 4:22 AM T [facility] URINE SPECIMEN OBTAINED BY CLEAN CATCH PROCEDURE / Unknown 04/28/2021 3:44 AM CDT Jaylan Flower MD URINE ORDERABLES Final Result [facility] [address] [place] [address], [place] [phone] * CULTURE, BACTERIA, BLOOD (04/28/2021 3:21 AM CDT) SPEC DESCRIPTION BLOOD 04/28/2021 1:57 AM CDT [facility] SPECIAL REQUESTS NO SPECIAL REQUEST 04/28/2021 1:57 AM CDT [facility] CULTURE RESULT NO GROWTH 5 DAYS 05/03/2021 8:04 AM CDT [facility] BLOOD SPECIMEN OBTAINED FOR BLOOD CULTURE / Unknown 04/28/2021 3:21 AM CDT 04/28/2021 3:35 AM CDT Jaylan Flower MD MICROBIOLOGY - GENERAL ORDERABL ES Final Result [facility] [address] [place] [address], [place] [phone] * CULTURE, BACTERIA, BLOOD (04/28/2021 3:21 AM CDT) SPEC DESCRIPTION BLOOD 04/28/2021 1:57 AM CDT [facility] SPECIAL REQUESTS NO SPECIAL REQUEST 04/28/2021 1:57 AM CDT [facility] CULTURE RESULT NO GROWTH 5 DAYS 05/03/2021 8:04 AM CDT [facility] BLOOD SPECIMEN OBTAINED FOR BLOOD CULTURE / Unknown 04/28/2021 3:21 AM CDT 04/28/2021 3:35 AM CDT us Jaylan Flower MD MICROBIOLOGY - GENERAL ORDERABL ES Final Result [facility] [address] [place] [address], [place] [phone] * MAGNESIUM (04/28/2021 3:21 AM CDT) MAGNESIUM 2.2 1.8 - 2.4 MG/DL 04/28/2021 4:08 AM CDT [facility] 04/28/2021 3:21 AM CDT us Jaylan Flower MD LABORATORY Final Result [facility] [address] [place] [address], [place] [phone] * LACTIC ACID (04/28/2021 3:21 AM CDT) LACTIC ACID VENOUS 0.8 0.4 - 2.0 MMOL/L 04/28/2021 4:09 AM CDT [facility] 04/28/2021 3:21 AM CDT us Jaylan Flower MD LABORATORY Final Result Performing Organization Address City/[facility]/ZIP Co de Phone Number [facility] [address] [place] [address], [place] [phone] * LIPASE (04/28/2021 3:21 AM CDT) LIPASE 274 73 - 393 UNITS/L 04/28/2021 4:08 AM CDT [facility] 04/28/2021 3:21 AM CDT us Jaylan Flower MD LABORATORY Final Result [facility] [address] [place] [address], [place] [phone] * (ABNORMAL) COMPREHENSIVE METABOLIC PANEL (04/28/2021 3:21 AM CDT) [facility] GLUCOSE 69(L) 70 - 99 MG/DL 04/28/2021 4:08 AM CDT [facility] BUN 18 7 - 18 MG/DL 04/28/2021 4:08 AM CDT [facility] CREATININE S/P/B 0.73 0.55 - 1.02 MG/DL 04/28/2021 4:08 AM CDT [facility] SODIUM S/P/B 140 136 - 145 MMOL/L 04/28/2021 4:08 AM CDT [facility] POTASSIUM S/P/B 3.9 3.5 - 5.1 MMOL/L 04/28/2021 4:08 AM CDT [facility] CHLORIDE S/P/B 107 100 - 108 MMOL/L 04/28/2021 4:08 AM CDT [facility] CO2 25.5 21 - 32 MMOL/L 04/28/2021 4:08 AM CDT [facility] CALCIUM S/P/B 8.8 8.5 - 10.1 MG/DL 04/28/2021 4:08 AM CDT [facility] BILIRUBIN TOTAL S/P/B 0.6 0.2 - 1.2 MG/DL 04/28/2021 4:08 AM CDT [facility] Comment: THIS ASSAY IS NOT RECOMMENDED FOR PATIENTS UNDERGOING TREATMENT WITH ELTROMBOPAG DUE TO THE POTENTIAL FOR FALSELY ELEVATED RESULTS. TOTAL PROTEIN S/P/B 7.2 6.4 - 8.2 G/DL 04/28/2021 4:08 AM CDT [facility] ALBUMIN S/P/B 3.7 3.4 - 5.0 G/DL 04/28/2021 4:08 AM CDT [facility] AST 16 15 - 37 U/L 04/28/2021 4:08 AM CDT [facility] ALT 32 14 - 55 U/L 04/28/2021 4:08 AM CDT [facility] ALKALINE PHOSPHATASE S/P/B 65 50 - 136 U/L 04/28/2021 4:08 AM CDT [facility] ANION GAP 7.5 5 - 15 MMOL/L 04/28/2021 4:08 AM CDT [facility] BUN CREATININE RATIO 24.6 6 - 26 04/28/2021 4:08 AM CDT [facility] A/G RATIO 1.1 1.0 - 2.0 RATIO 04/28/2021 4:08 AM CDT [facility] EGFR NON-AFR. AMER. >90 >90 ML/MIN/1.7 3 M2 04/28/2021 4:08 AM CDT [facility] EGFR AFR. AMER. >90 >90 ML/MIN/1.7 3 M2 04/28/2021 4:08 AM T [facility] Comment: NOTE: eGFR is not calculated for patients <18 years of age. This is an estimated GFR (CKD EPI) and should not be used for calculating drug doses. 04/28/2021 3:21 AM CDT Jaylan Flower MD LABORATORY Final Result [facility] [address] [place] [address], [place] [phone] * CBC W/DIFF AUTOMATED (04/28/2021 3:21 AM CDT) WBC 10.1 4.5 - 11.0 x10'3/uL 04/28/2021 3:44 AM CDT [facility] RBC 4.31 4.20 - 5.40 x10'6/uL 04/28/2021 3:44 AM CDT [facility] HGB 13.0 12.0 - 16.0 G/DL 04/28/2021 3:44 AM CDT [facility] HCT 39.3 38.0 - 48.0 % 04/28/2021 3:44 AM CDT [facility] MCV 91.2 81.0 - 99.0 FL 04/28/2021 3:44 AM CDT [facility] MCH 30.2 27.0 - 31.0 PG 04/28/2021 3:44 AM CDT [facility] MCHC 33.1 32.0 - 36.0 G/DL 04/28/2021 3:44 AM CDT [facility] RDW 13.8 11.5 - 14.5 % 04/28/2021 3:44 AM CDT [facility] PLT 224 130 - 400 x10'3/uL 04/28/2021 3:44 AM CDT [facility] MPV 11.0 9.3 - 12.2 FL 04/28/2021 3:44 AM CDT [facility] DIFFERENTIAL TYPE AUTOMATED DIFFERENTIAL 04/28/2021 3:44 AM CDT [facility] NEUTROPHILS % 63.4 % 04/28/2021 3:44 AM CDT [facility] LYMPHOCYTES % 29.8 % 04/28/2021 3:44 AM CDT [facility] MONOCYTES % 5.4 % 04/28/2021 3:44 AM CDT [facility] EOSINOPHILS 0.8 % 04/28/2021 3:44 AM CDT [facility] BASOPHILS 0.4 % 04/28/2021 3:44 AM CDT [facility] IMMATURE GRANS % 0.2 % 04/28/20 3:44 AM CDT [facility] ABS. NEUTROPHILS TOTAL 6.41 1.80 - 7.70 x10'3/uL 04/28/2021 3:44 AM CDT [facility] ABS. LYMPHOCYTES 3.02 1.00 - 4.80 x10'3/uL 04/28/2021 3:44 AM CDT [facility] ABS. MONOCYTES 0.55 0.24 - 0.86 x10'3/uL 04/28/2021 3:44 AM CDT [facility] ABS. EOSINOPHILS 0.08 0.04 - 0.36 x10'3/uL 04/28/2021 3:44 AM CDT [facility] ABS. BASOPHILS 0.04 0.01 - 0.08 x10'3/uL 04/28/2021 3:44 AM CDT [facility] ABS. IMMATURE GRANULOCYTES 0.02 0.00 - 0.49 x10'3/uL 04/28/2021 3:44 AM CDT [facility] 04/28/2021 3:21 AM CDT Jaylan Flower MD LABORATORY Final Result [facility] [address] [place] [address], [place] [phone] documented in this encounter Visit Diagnoses Diagnosis Acute diverticulitis- Primary documented in this encounter Administered Medications Inactive Administered Medications - up to 3 most recent administrations Medication Order MAR Action Action Date Dose Rate Site cefPROZIL (CEFZIL) tablet 500 mg 500 mg, Oral, Once, 1 dose, On Tu04/28/21 at 0545 Given 04/28/2021 5:50 AM CDT 500 mg fentaNYL (SUBLIMAZE) injection 50 mcg 50 mcg, Intravenous, Once, 1 dose, On Tue04/28/21 at 0200, If intravenous (IV) route has been ordered, give over 1-2 minutes. Given 04/28/2021 3:49 AM CDT 50 mcg iopamidol (ISOVUE-370) 76 % injection 100 mL 100 mL, Intravenous, IMG once as needed, Contrast, 1 dose, Starting on Tue04/28/21 at 0422, Until Tue04/28/21 at 0425 Given 04/28/2021 4:25 AM CDT 100 mLs sodium chloride 0.9% bolus infusion SOLN 500 mL 500 mL, Intravenous, Administer over 15 Minutes, Once, 1 dose, On Tue04/28/21 at 0200 New Bag 04/28/2021 3:49 AM CDT 500 mLs documented in this encounter Active and Recently Administered Medications Times are shown in CDT. Scheduled Medication Order 04/26/2021 04/27/2021 04/28/2021 cefPROZIL (CEFZIL) tablet 500 mg (COMPLETED) 500 mg, Oral, Once, 1 dose, On Tue04/28/21 at 0545 0550 (Given - Provid er: Geneva Drake RN) fentaNYL (SUBLIMAZE) injection 50 mcg (COMPLETED) 50 mcg, Intravenous, Once, 1 dose, On Tue04/28/21 at 0200, If intravenous (IV) route has been ordered, give over 1-2 minutes. 0349 (Given - Provid er: Geneva Drake RN) sodium chloride 0.9% bolus infusion SOLN 500 mL (COMPLETED) 500 mL, Intravenous, Administer over 15 Minutes, Once, 1 dose, On Tue04/28/21 at 0200 0349 (New Bag - Prov ider: Geneva Drake RN)0442 (Infusion Stop Time - Provider: Geneva Drake RN) PRN Medication Order 04/26/2021 04/27/2021 04/28/2021 iopamidol (ISOVUE-370) 76 % injection 100 mL (COMPLETED) 100 mL, Intravenous, IMG once as needed, Contrast, 1 dose, Starting on Tue04/28/21 at 0422, Until Tue04/28/21 at 0425 0425 (Given - Provid er: Karma Carter, RT) documented in this encounter Additional Health Concerns Assessment Noted Time PHQ-9 Depression Total Score: 2 07/17/20 20 9:06 AM CDT documented as of this encounter
--- OUTSIDE RECORDS SUMMARY | 2024-11-04 23:02 | XMS_ITS | Encounter Summary ---
Author Organization [facility] Address [address] [place] [address]. [place], [place] [id number] [place] [id number] Care Team Providers Care Colorer Hides And Skins Name Role Phone None, Provider MD Primary Care Provider Unavaila ble Reason for Referral * Imaging (Emergency) - Closed Specialty Diagnoses / Procedures Referred By Contac t Referred To Contact RADIOLOGY Procedures CT STROKE(HEAD WO) CT HEAD WO CON Carlos Jensen MD Phone: tel: fax: Referral ID Status Reason Start Date Expiration Date Visits Re quested Visits Authorized [id number] Closed 12/31/2022 12/31/2023 1 1 NUE CYCLE ADMINISTRATOR * Imaging (Emergency) - Closed Specialty Diagnoses / Procedures Referred By Contac t Referred To Contact RADIOLOGY Procedures CTA HEAD+NECK [facility] [place] [address] Phone: tel: fax: Referral ID Status Reason Start Date Expiration Date Visits Re quested Visits Authorized [id number] Closed 12/31/2022 12/31/2023 1 1 NUE CYCLE ADMINISTRATOR Reason for Visit * Reason Comments Stroke Alert * Auth/Cert (Routine) Specialty Diagnoses / Procedures Referred By Contac t Referred To Contact Diagnoses TIA (transient ischemic attack) TIA (transient ischemic attack) Procedures NONE Referral ID Status Reason Start Date Expiration Date Visits Re quested Visits Authorized [id number] 1 1 Encounter Details Date Type Department Care Team (Late st Contact Info) Description 12/31/2022 11:56 PM REVENUE CYCLE ADMINISTRATOR - 01/01/2023 3:31 AM REVENUE CYCLE ADMINISTRATOR Emergency [facility] [place] [address] Carlos Jensen MD [address] [place] [phone] [place] [address] [phone] (Work) Stroke Alert Discharge Disposition: Home or Self Care (Routine [...] Coronavirus/COVID-19? No / Unsure 01/01/2023 12:20 AM REVENUE CYCLE ADMINISTRATOR documented as of this encounter Last Filed Vital Signs Vital Sign Reading Time Taken Comments Blood Pressure 137/92 01/01/2023 3:00 AM REVENUE CYCLE ADMINISTRATOR Pulse 56 01/01/2023 3:00 AM REVENUE CYCLE ADMINISTRATOR Temperature 36.7 ??C (98.1 ??F) 01/01/2023 12:[address] Respiratory Rate 16 01/01/2023 3:00 AM REVENUE CYCLE ADMINISTRATOR Oxygen Saturation 100% 01/01/2023 3:00 AM REVENUE CYCLE ADMINISTRATOR Inhaled Oxygen Concentration - - Weight 76.7 kg (169 lb 1.5 oz) 01/01/2023 12:17 AM REVENUE CYCLE ADMINISTRATOR Height 154.9 cm (5' 1 ) 01/01/2023 12:17 AM REVENUE CYCLE ADMINISTRATOR Body Mass Index 31.95 01/01/2023 12:17 AM REVENUE CYCLE ADMINISTRATOR documented in this encounter Functional Status * [...] cannot be sent through Care Everywhere. * Paresthesia Discharge Instructions (Nepalese) * Dehydration Discharge Instructions, Adult (Nepalese) documented in this encounter Medications at Time [...] as of this encounter ED Notes * Carlos Jensen MD - 01/01/2023 12:18 AM CSTAssociated Order(s): EKG Reading Chief Complaint Chief Complaint Patient presents with ??? Stroke Alert History of Present Illness 47-year-old female presenting with sudden onset of left upper arm and left lower leg paresthesias at 1730 yesterday. Symptoms are still present. Denies gait difficulty, focal weakness, speech changes, vision changes. Patient has been recently intermittently on hydrochlorothiazide with 3 doses takenearlier this week in a row and subsequent positional lightheadedness. She no longer has menses status post hysterectomy Medical History ALLERGIES: Allergies Allergen Reactions ??? Amoxicillin Rash MEDICATIONS: Prior to Admission medications Medication Sig Start Date End Date Taking? Authorizing Provider calcium carb-cholecalciferol 600-400 MG-UNIT Tab tablet 1 tablet daily. Doc [facility] hydroCHLOROthiazide (MICROZIDE) 12.5 MG tablet Take 0.5 tablets (6.25 mg total) by mouth every morning for 30 days. 12/24/22 01/23/23 Radha Fox NP hydrocortisone 1 % ointment Apply topically 2 [...] forcep performed by Kathy Bailey MD at [facility] ??? HYSTERECTOMY FAMILY HISTORY: Family History Problem Relation Name Age of Onset ??? Hypertension Father ??? Stroke Father ??? None Mother SOCIAL HISTORY: Social History Tobacco Use ??? Smoking status: Former Packs/day: 0.25 Types: Cigarettes Quit date: 08/09/2010 Years since quittin.4 ??? Smokeless tobacco: Never Vaping Use ??? Vaping Use: Never used Substance Use Topics ??? Alcohol use: Yes Alcohol/week: 5.0 standard drinks Types: 3 Glasses of wine per week ??? Drug use: No Review of Systems Review of Systems All other systems reviewed and are negative. Physical Exam Filed Vitals: 01/01/23 0130 01/01/23 0200 01/01/23 0230 01/01/23 0300 BP: 134/86 131/81 125/78 (!) 137/92 Pulse: (!) 56 61 (!) 59 (!) 56 Resp: 25 19 22 16 Temp: TempSrc: SpO2: 100% 100% 100% 100% Weight: Height: Physical Exam Vitals and nursing note reviewed. Constitutional: General: She is not in acute distress. Appearance: Normal appearance. HENT: Head: Normocephalic and atraumatic. Nose: Nose normal. Mouth/Throat: Mouth: Mucous membranes are moist. Eyes: Extraocular Movements: Extraocular movements intact. Conjunctiva/sclera: Conjunctivae normal. Cardiovascular: Rate and Rhythm: Normal rate. Pulses: Normal pulses. Pulmonary: Effort: Pulmonary effort is normal. No respiratory distress. Abdominal: General: There is no distension. Palpations: Abdomen is soft. Musculoskeletal: General: Normal range of motion. Cervical back: Normal range of motion and neck supple. Skin: General: Skin is warm and dry. Capillary Refill: Capillary refill takes less than 2 seconds. Neurological: General: No focal deficit present. Mental Status: She is alert and oriented to person, place, and time. Cranial Nerves: No cranial nerve deficit. Sensory: No sensory deficit. Motor: No weakness. Coordination: Coordination normal. Gait: Gait normal. Psychiatric: Mood and Affect: Mood normal. Behavior: Behavior normal. Diagnostic Studies / Procedures ELECTROCARDIOGRAMS: Results for orders placed or performed during the hospital encounter of 12/31/22 ECG 12 lead Narrative [address] [place] Test Date: 2023-01-01 Pat Name: MARIA DEL CARMEN CERVANTES Department: 41 Room: 707A Gender: Female Nail Expert: RICH : 1975 Requested By: CARLOS JENSEN Order Number: [id number] Reading MD: Andre Gardner Measurements Intervals [place] Rate: 65 P: 56 SD: 160 QRS: 16 QRSD: 97 T: 28 QT: 426 QTc: 443 Interpretive Statements SINUS RHYTHM Compared to ECG 12/24/2022 12:51:15 Sinus bradycardia no longer present No ischemic changes Carlos Jensen M.D CRITICAL ALERT ISSUED ON 01-01-2023 0:26:14 NUE CYCLE ADMINISTRATOR LABORATORY STUDIES: Results for orders placed or performed during the hospital encounter of 12/31/22 CBC W/DIFF AUTOMATED Result Value Ref Range WBC 7.7 4.5 - 11.0 x10'3/uL RBC 4.33 4.20 - 5.40 x10'6/uL HGB 14.0 12.0 - 16.0 G/DL HCT 41.5 38.0 - 48.0 % MCV 95.8 81.0 - 99.0 FL MCH 32.3 (H) 27.0 - 31.0 PG MCHC 33.7 32.0 - 36.0 G/DL RDW 12.7 11.5 - 14.5 % PLT 223 130 - 400 x10'3/uL MPV 10.2 9.3 - 12.2 FL DIFFERENTIAL TYPE AUTOMATED DIFFERENTIAL NEUTROPHILS 55.8 % LYMPHOCYTES 36.9 % MONOCYTES 5.7 % EOSINOPHILS 0.8 % BASOPHILS 0.5 % IMMATURE GRANS 0.3 % ABS. NEUTROPHILS TOTAL 4.30 1.80 - 7.70 x10'3/uL ABS. LYMPHOCYTES 2.84 1.00 - 4.80 x10'3/uL ABS. MONOCYTES 0.44 0.24 - 0.86 x10'3/uL ABS. EOSINOPHILS 0.06 0.04 - 0.36 x10'3/uL ABS. BASOPHILS 0.04 0.01 - 0.08 x10'3/uL ABS. IMMATURE GRANULOCYTES 0.02 0.00 - 0.49 x10'3/uL PROTIME/INR, VENOUS Result Value Ref Range PROTIME 11.6 10.2 - 12.9 SEC INR 1.0 PARTIAL THROMBOPLASTIN TIME,PTT Result Value Ref Range PTT 28.6 25.1 - 36.5 SEC COMPREHENSIVE METABOLIC PANEL Result Value Ref Range GLUCOSE 104 (H) 70 - 99 MG/DL BUN 25 (H) 7 - 18 MG/DL CREATININE S/P/B 1.00 0.55 - 1.02 MG/DL SODIUM 139 136 - 145 MMOL/L POTASSIUM 4.0 3.5 - 5.1 MMOL/L CHLORIDE S/P/B 107 100 - 108 MMOL/L CO2 29.9 21 - 32 MMOL/L CALCIUM 9.5 8.5 - 10.1 MG/DL BILIRUBIN TOTAL S/P/B 0.6 0.2 - 1.2 MG/DL TOTAL PROTEIN S/P/B 7.2 6.4 - 8.2 G/DL ALBUMIN S/P/B 3.8 3.4 - 5.0 G/DL AST 18 15 - 37 U/L ALT 25 14 - 55 U/L ALKALINE PHOSPHATASE S/P/B 78 50 - 136 U/L ANION GAP 2.1 (L) 5 - 15 MMOL/L BUN CREATININE RATIO 25.0 6 - 26 A/G RATIO 1.1 1.0 - 2.0 RATIO GFR ESTIMATE 70 (L) >90 ML/MIN/1.73 M2 MAGNESIUM Result Value Ref Range MAGNESIUM 2.0 1.8 - 2.4 MG/DL Bedside Blood Glucose Result Value Ref Range GLUCOSE WHOLE BLOOD 104 (A) 70 - 100 mg/dL POCT glucose Result Value Ref Range GLUCOSE POC 104 (H) 70 - 99 mg/dL IMAGING STUDIES CTA HEAD+NECK Final Result by User, [email or web address] (01/01 34) EXAMINATION: CTA head/neck HISTORY: Left arm and leg numbness with tingling. Concern for stroke. COMPARISON: None. TECHNIQUE: Axial CTA images of the head and neck after the uneventful intravenous administration of 80 mL of Isovue-370 given through the right antecubital fossa. Dedicated post processed thick section sagittal and coronal MIP images with 3-D images. All stenosis estimates according to the NASCET criteria. A dose lowering technique was used for this procedure, which may include, but is not limited to, dose reduction technique, automated exposure control, the use of degenerative reconstruction, and ALARA/image gently techniques. FINDINGS: VASCULAR: NECK: There is a normal three-vessel origination from the aortic arch. The proximal great vessels appear patent. The main pulmonary artery is normal caliber. The common carotid arteries are patent bilaterally. The cervical internal carotid arteries are patent bilaterally. The external carotid arteries are patent bilaterally. No hemodynamically significant stenosis. The vertebral arteries are patent bilaterally. No evidence of arterial dissection. HEAD: The petrous, cavernous, and supraclinoid segments of the internal carotid arteries remain patent bilaterally. The middle and anterior cerebral arteries remain patent bilaterally. The anterior communicating artery is patent. The vertebral arteries and basilar artery are patent. The posterior cerebral arteries are patent bilaterally. The posterior communicating arteries appear patent. No evidence of aneurysm. OTHER FINDINGS: The included lung apices are clear. The included neck soft tissues are negative for acute appearing abnormality. No acute-appearing paraspinous soft tissue abnormalities. The paranasal sinuses and mastoid air cells are clear. No acute osseous abnormalities. IMPRESSION: 1. No evidence of stenosis or occlusion involving the major arteries of the head or neck. 2. No acute findings. Referred By: Interpreted By: Wilner Hopkins DO, 01/01/2023 12:[address] STROKE(HEAD WO) Final Result by User, [id number] (01/01 27) EXAMINATION: CT head without contrast HISTORY: Left arm and leg numbness with tingling. Concern for stroke. COMPARISON: None. TECHNIQUE: Axial CT images of the head without the use of intravenous contrast. A dose lowering technique was used for this procedure, which may include, but is not limited to, dose reduction technique, automated exposure control, the use of degenerative reconstruction, and ALARA/image gently techniques. FINDINGS: No evidence of acute intracranial hemorrhage, edema, or mass effect. The loving-white matter differentiation appears acutely well-preserved. There is no midline shift. No abnormal extra-axial fluid collections. The ventricular system is normally sized. There is no hydrocephalus. There is calcification of the pineal gland. No acute appearing orbital abnormalities. The paranasal sinuses are clear. The mastoid air cells are clear. No acute osseous abnormalities are identified. IMPRESSION: No acute intracranial abnormalities identified. Referred By: Interpreted By: Wilner Hopkins DO, 01/01/2023 12:23 AM EKG Reading Date/Time: 01/01/2023 12:30 AM Performed by: Carlos Jensen MD Authorized by: Carlos Jensen MD Interpreted by ED physician Rhythm: sinus rhythm Rate: normal BPM: 65 QRS axis: normal Conduction: conduction normal ST Segments: ST segments normal T Waves: T waves normal Clinical impression: normal ECG ED Course / Medical Decision Making Medical Decision Making Patient presenting due to left-sided paresthesias without any other neurologic deficits. Remaining of her symptoms stroke work-up was initiated including CT/CTA and evaluation by teleneurology. Bloodwork to evaluate for underlying metabolic or sudden electrolyte abnormality unremarkable. See teleneuro note for full details - briefly low clinical suspicion for neurologic pathology in setting of lack of risk factors, lack of neuro deficit and unremarkable imaging/bloodwork. Discussed with patient who ultimately is comfortable with plan for dc home & outpatient followup Amount and/or Complexity of Data Reviewed Labs: ordered. Decision-making details documented in ED Course. Radiology: ordered. Decision-making details documented in ED Course. ED Course as of 01/05/23432 Sat Jan 01, 2023 0256 Patient feels improved s/p IVF. Prefers to be discharged home and will pursue outpatient neurofollow-up as arranged by her PMD. Verbalized strict return precautions [CA] ED Course User Index [CA] Carlos Jensen MD Clinical Impression Paresthesias (Primary) Dehydration Disposition: Discharge Carlos Jensen MD 01/05/23432 NUE CYCLE ADMINISTRATOR * Kian Ruffin RN - 01/01/2023 12:12 AM CST Pt arrives to the ED and was made a Stroke alert at triage. Pt complaint of numbness in her left arm and left leg. Pt states that she also has a headache. Pt states that 1929 yesterday, 12/31/22, she was getting off the elevator at work and felt dizzy and like she was going to pass out. Since then she has had the numbness and headache. Pt denies any history or stroke in the past. NUE CYCLE ADMINISTRATOR documented in this encounter Plan of Treatment Not on file documented as of this encounter Procedures Procedure Name Priority Date/Time Associated Diagnosis Comments ELECTROCARDIOGRAM REPORT Routine 023 12:30 AM REVENUE CYCLE ADMINISTRATOR ECG 12-LEAD STAT 01/01/2023 12:21 AM REVENUE CYCLE ADMINISTRATOR POCT GLUCOSE - YIP DOCKED DEVICE Routine 01/01/2023 12:16 AM REVENUE CYCLE ADMINISTRATOR POCT BEDSIDE BLOOD GLUCOSE STAT 01/01/2023 12:16 AM REVENUE CYCLE ADMINISTRATOR PARTIAL THROMBOPLASTIN TIME,PTT STAT 01/01/2023 12:16 AM REVENUE CYCLE ADMINISTRATOR PROTHROMBIN TIME, VENOUS STAT 023 12:16 AM REVENUE CYCLE ADMINISTRATOR COMPREHENSIVE METABOLIC PANEL STAT 01/01/2023 12:16 AM REVENUE CYCLE ADMINISTRATOR CBC W/DIFF AUTOMATED STAT 01/01/2023 12:16 AM REVENUE CYCLE ADMINISTRATOR MAGNESIUM STAT 01/01/2023 12:16 AM REVENUE CYCLE ADMINISTRATOR CTA HEAD+NECK STAT 01/01/2023 12:08 AM REVENUE CYCLE ADMINISTRATOR CT STROKE(HEAD WO) STAT 01/01/2023 12 :01 AM REVENUE CYCLE ADMINISTRATOR documented in this encounter Results * EKG Reading (01/01/2023 12:30 AM REVENUE CYCLE ADMINISTRATOR) Carlos Nogueira MD - 01/01/2023 12:30 AM REVENUE CYCLE ADMINISTRATOR Carlos Jensen MD ? 01/05/2023 ??4:33 AM EKG Reading Date/Time: 01/01/2023 12:30 AM Performed by: Carlos Jensen MD Authorized by: Carlos Jensen MD Interpreted by ED physician Rhythm: sinus rhythm Rate: normal BPM: 65 QRS axis: normal Conduction: conduction normal ST Segments: ST segments normal T Waves: T waves normal Clinical impression: normal ECG us Carlos Jensen MD [place] [facility] Final Result * ECG 12 lead (01/01/2023 12:21 AM REVENUE CYCLE ADMINISTRATOR) 01/01/2023 12:2 1 AM REVENUE CYCLE ADMINISTRATOR Narrative [facility] - 01/01/2023 5:35 PM REVENUE CYCLE ADMINISTRATOR ?[facility] ? [address] [place] ? Test Date: ?2023-01-01 Pat Name: ? MARIA DEL CARMEN CERVANTES ?Department: ?? 41 ? Room: ? 707A Gender: ? Female ? Nail Expert: ?? CB : ?1975 ? Requested By: CARLOS JENSEN Order Number: [id number] ? Reading : ?? Andre Gardner ? Measurements Intervals ?[place] ? Rate: ? 65 ? P: ?56 SD: ? 160 ?QRS: ?16 QRSD: ? 97 ? T: ?28 QT: ? 426 ? QTc: ?443 ? Interpretive Statements SINUS RHYTHM Compared to ECG 12/24/2022 12:51:15 Sinus bradycardia no longer present No ischemic changes Carlos Jensen M.D CRITICAL ALERT ISSUED ON 01-01-2023 0:26:14 NUE CYCLE ADMINISTRATOR Procedure Note Andre Gardner MD - 01/01/[address] Test Date: 2023-01-01 Pat Name: MARIA DEL CARMEN CERVANTES Department: 41 Room: 707A Gender: Female Nail Expert: RICH : 1975 Requested By: SUNIL Order Number: [id number] Reading MD: Andre Gardner Measurements Intervals [place] Rate: 65 P: 56 SD: 160 QRS: 16 QRSD: 97 T: 28 QT: 426 QTc: 443 Interpretive Statements SINUS RHYTHM Compared to ECG 12/24/2022 12:51:15 Sinus bradycardia no longer present No ischemic changes Carlos Jensen M.D CRITICAL ALERT ISSUED ON 01-01-2023 0:26:14 NUE CYCLE ADMINISTRATOR Carlos Jensen MD ECG ORDERABLES Final Result [facility] * (ABNORMAL) Bedside Blood Glucose (01/01/2023 12:16 AM REVENUE CYCLE ADMINISTRATOR) GLUCOSE WHOLE BLOOD 104(A) 70 - 100 mg/dL Carlos Jensen MD NURSING TREATM ENT ORDERABLES - ONCE OR INTERVALS Final Result * MAGNESIUM (01/01/2023 12:16 AM REVENUE CYCLE ADMINISTRATOR) [facility] MAGNESIUM 2.0 1.8 - 2.4 MG/DL 01/01/2023 12:53 AM REVENUE CYCLE ADMINISTRATOR [facility] 01/01/2023 12:1 6 AM REVENUE CYCLE ADMINISTRATOR Carlos Jensen MD LABORATORY Final Result Performing Organization Address City/[facility]/ZIP Co de Phone Number [facility] [address] [place] [address], [place] [phone] * (ABNORMAL) POCT glucose (01/01/2023 12:16 AM REVENUE CYCLE ADMINISTRATOR) [facility] GLUCOSE POC 104(H) 70 - 99 mg/dL 01/01/2023 12:17 AM REVENUE CYCLE ADMINISTRATOR [facility] 01/01/2023 12:1 6 AM REVENUE CYCLE ADMINISTRATOR us Carlos Jensen MD POCT ORDERABLES - BIBI CE Final Result [facility] [address] [place] [address], [place] [phone] * (ABNORMAL) COMPREHENSIVE METABOLIC PANEL (01/01/2023 12:16 AM REVENUE CYCLE ADMINISTRATOR) [facility] GLUCOSE 104(H) 70 - 99 MG/DL 01/01/2023 12:45 AM [facility] BUN 25(H) 7 - 18 MG/DL 01/01/2023 12:45 AM [facility] CREATININE S/P/B 1.00 0.55 - 1.02 MG/DL 01/01/2023 12:45 AM [facility] SODIUM S/P/B 139 136 - 145 MMOL/L 01/01/2023 12:45 AM [facility] POTASSIUM S/P/B 4.0 3.5 - 5.1 MMOL/L 01/01/2023 12:45 AM [facility] CHLORIDE S/P/B 107 100 - 108 MMOL/L 01/01/2023 12:45 AM [facility] CO2 29.9 21 - 32 MMOL/L 01/01/2023 12:45 AM [facility] CALCIUM S/P/B 9.5 8.5 - 10.1 MG/DL 01/01/2023 12:45 AM [facility] BILIRUBIN TOTAL S/P/B 0.6 0.2 - 1.2 MG/DL 01/01/2023 12:45 AM [facility] Comment: THIS ASSAY IS NOT RECOMMENDED FOR PATIENTS UNDERGOING TREATMENT WITH ELTROMBOPAG DUE TO THE POTENTIAL FOR FALSELY ELEVATED RESULTS. TOTAL PROTEIN S/P/B 7.2 6.4 - 8.2 G/DL 01/01/2023 12:45 AM [facility] ALBUMIN S/P/B 3.8 3.4 - 5.0 G/DL 01/01/2023 12:45 AM [facility] AST 18 15 - 37 U/L 01/01/2023 12:45 AM REVENUE CYCLE ADMINISTRATOR [facility] ALT 25 14 - 55 U/L 01/01/2023 12:45 AM [facility] ALKALINE PHOSPHATASE S/P/B 78 50 - 136 U/L 01/01/2023 12:45 AM [facility] ANION GAP 2.1(L) 5 - 15 MMOL/L 01/01/2023 12:45 AM [facility] BUN CREATININE RATIO 25.0 6 - 26 01/01/2023 12:45 AM [facility] A/G RATIO 1.1 1.0 - 2.0 RATIO 01/01/2023 12:45 AM [facility] GFR ESTIMATE 70(L) >90 ML/MIN/1.7 3 M2 01/01/2023 12:45 AM [facility] Comment: NOTE: eGFR is not calculated for patients <18 years of age. This is an estimated GFR calculation using the new CKD EPI creatinine equation without race and so does not require a correction factor for race. This estimated GFR should not be used for calculating drug doses. 01/01/2023 12:1 6 AM REVENUE CYCLE ADMINISTRATOR us Carlos Jensen MD LABORATORY Final Result [facility] [address] [place] [address], [place] [phone] * PARTIAL THROMBOPLASTIN TIME,PTT (01/01/2023 12:16 AM REVENUE CYCLE ADMINISTRATOR) PTT 28.6 25.1 - 36.5 SEC 01/01/2023 12:35 AM REVENUE CYCLE ADMINISTRATOR [facility] 01/01/2023 12:1 6 AM REVENUE CYCLE ADMINISTRATOR us Carlos Jensen MD LABORATORY Final Result [facility] [address] [place] [address], * PROTIME/INR, VENOUS (01/01/2023 12:16 AM REVENUE CYCLE ADMINISTRATOR) PROTIME 11.6 10.2 - 12.9 SEC 01/01/2023 12:35 AM REVENUE CYCLE ADMINISTRATOR [facility] INR 1.0 01/01/2023 12:35 AM REVENUE CYCLE ADMINISTRATOR [facility] Comment: Recommended INR Therapeutic Goals: ??2.0-3.0 Routine Therapy ??2.5-3.5 Mechanical Prosthetic Valves (High Risk) 01/01/2023 12:1 6 AM REVENUE CYCLE ADMINISTRATOR Carlos Jensen MD LABORATORY Final Result Performing Organization Address [facility] Co de Phone Number [facility] [address] [place] [address], * (ABNORMAL) CBC W/DIFF AUTOMATED (01/01/2023 12:16 AM REVENUE CYCLE ADMINISTRATOR) WBC 7.7 4.5 - 11.0 x10'3/uL 01/01/2023 12:59 AM REVENUE CYCLE ADMINISTRATOR [facility] RBC 4.33 4.20 - 5.40 x10'6/uL 01/01/2023 12:59 AM REVENUE CYCLE ADMINISTRATOR [facility] HGB 14.0 12.0 - 16.0 G/DL 01/01/2023 12:59 AM [facility] HCT 41.5 38.0 - 48.0 % 01/01/2023 12:59 AM REVENUE CYCLE ADMINISTRATOR [facility] MCV 95.8 81.0 - 99.0 FL 01/01/2023 12:59 AM [facility] MCH 32.3(H) 27.0 - 31.0 PG 01/01/2023 12:59 AM [facility] MCHC 33.7 32.0 - 36.0 G/DL 01/01/2023 12:59 AM [facility] RDW 12.7 11.5 - 14.5 % 01/01/2023 12:59 AM [facility] PLT 223 130 - 400 x10'3/uL 01/01/2023 12:59 AM [facility] MPV 10.2 9.3 - 12.2 FL 01/01/2023 12:59 AM [facility] DIFFERENTIAL TYPE AUTOMATED DIFFERENTIAL 01/01/2023 12:59 AM [facility] NEUTROPHILS % 55.8 % 01/01/2023 12:59 AM [facility] LYMPHOCYTES % 36.9 % 01/01/2023 12:59 AM [facility] MONOCYTES % 5.7 % 01/01/2023 12:59 AM [facility] EOSINOPHILS 0.8 % 01/01/2023 12:59 AM [facility] BASOPHILS 0.5 % 01/01/2023 12:59 AM [facility] IMMATURE GRANS % 0.3 % 01/01/20 12:59 AM [facility] ABS. NEUTROPHILS TOTAL 4.30 1.80 - 7.70 x10'3/uL 01/01/2023 12:59 AM [facility] ABS. LYMPHOCYTES 2.84 1.00 - 4.80 x10'3/uL 01/01/2023 12:59 AM [facility] ABS. MONOCYTES 0.44 0.24 - 0.86 x10'3/uL 01/01/2023 12:59 AM REVENUE CYCLE ADMINISTRATOR [facility] ABS. EOSINOPHILS 0.06 0.04 - 0.36 x10'3/uL 01/01/2023 12:59 AM REVENUE CYCLE ADMINISTRATOR [facility] ABS. BASOPHILS 0.04 0.01 - 0.08 x10'3/uL 01/01/2023 12:59 AM REVENUE CYCLE ADMINISTRATOR [facility] ABS. IMMATURE GRANULOCYTES 0.02 0.00 - 0.49 x10'3/uL 01/01/2023 12:59 AM REVENUE CYCLE ADMINISTRATOR [facility] 01/01/2023 12:1 6 AM REVENUE CYCLE ADMINISTRATOR Carlos Jensen MD LABORATORY Final Result Performing Organization Address City/State/[facility] Co de Phone Number [facility] [address] [place] [address], * CTA HEAD+NECK (01/01/2023 12:08 AM REVENUE CYCLE ADMINISTRATOR) Anatomical Region Laterality Modality Head, Neck Computed Tomogra phy 01/01/2023 12:2 6 AM REVENUE CYCLE ADMINISTRATOR Impressions 01/01/2023 12:32 AM REVENUE CYCLE ADMINISTRATOR IMPRESSION: 1. ??No evidence of stenosis or occlusion involving the major arteries of the head or neck. 2. ??No acute findings. Referred By: ?? Interpreted By: Wilner Hopkins DO, 01/01/2023 12:26 AM Narrative 01/01/2023 12:32 AM REVENUE CYCLE ADMINISTRATOR EXAMINATION: CTA head/neck HISTORY: Left arm and leg numbness with tingling. ??Concern for stroke. COMPARISON: None. TECHNIQUE: Axial CTA images of the head and neck after the uneventful intravenous administration of 80 mL of Isovue-370 given through the right antecubital fossa. Dedicated post processed thick section sagittal and coronal MIP images with 3-D images. All stenosis estimates according to the NASCET criteria. A dose lowering technique was used for this procedure, which may include, but is not limited to, dose reduction technique, automated exposure control, the use of degenerative reconstruction, and ALARA/image gently techniques. FINDINGS: VASCULAR: NECK: There is a normal three-vessel origination from the aortic arch. ??The proximal great vessels appear patent. ??The main pulmonary artery is normal caliber. The common carotid arteries are patent bilaterally. ??The cervical internal carotid arteries are patent bilaterally. ??The external carotid arteries are patent bilaterally. ??No hemodynamically significant stenosis. The vertebral arteries are patent bilaterally. ??No evidence of arterial dissection. HEAD: The petrous, cavernous, and supraclinoid segments of the internal carotid arteries remain patent bilaterally. ??The middle and anterior cerebral arteries remain patent bilaterally. ??The anterior communicating artery is patent. The vertebral arteries and basilar artery are patent. ??The posterior cerebral arteries are patent bilaterally. ??The posterior communicating arteries appear patent. No evidence of aneurysm. OTHER FINDINGS: The included lung apices are clear. ??The included neck soft tissues are negative for acute appearing abnormality. ??No acute-appearing paraspinous soft tissue abnormalities. ??The paranasal sinuses and mastoid air cells are clear. ??No acute osseous abnormalities. Procedure Note Wilner Hopkins DO - 01/01/2023 EXAMINATION: CTA head/neck HISTORY: Left arm and leg numbness with tingling. Concern for stroke. COMPARISON: None. TECHNIQUE: Axial CTA images of the head and neck after the uneventful intravenousadministration of 80 mL of Isovue-370 given through the right antecubitalfossa. Dedicated post processed thick section sagittal and coronal MIPimages with 3-D images. All stenosis estimates according to the NASCETcriteria. A dose lowering technique was used for this procedure, which may include,but is not limited to, dose reduction technique, automated exposurecontrol, the use of degenerative reconstruction, and ALARA/image gentlytechniques. FINDINGS: VASCULAR: NECK: There is a normal three-vessel origination from the aortic arch.The proximal great vessels appear patent. The main pulmonary artery isnormal caliber. The common carotid arteries are patent bilaterally. The cervical internalcarotid arteries are patent bilaterally. The external carotid arteriesare patent bilaterally. No hemodynamically significant stenosis. The vertebral arteries are patent bilaterally. No evidence of arterialdissection. HEAD: The petrous, cavernous, and supraclinoid segments of the internalcarotid arteries remain patent bilaterally. The middle and anteriorcerebral arteries remain patent bilaterally. The anterior communicatingartery is patent. The vertebral arteries and basilar artery are patent. The posteriorcerebral arteries are patent bilaterally. The posterior communicatingarteries appear patent. No evidence of aneurysm. OTHER FINDINGS: The included lung apices are clear. The included necksoft tissues are negative for acute appearing abnormality. Noacute-appearing paraspinous soft tissue abnormalities. The paranasalsinuses and mastoid air cells are clear. No acute osseous abnormalities. IMPRESSION: 1. No evidence of stenosis or occlusion involving the major arteries ofthe head or neck. 2. No acute findings. Referred By: Interpreted By: Wilner Hopkins DO, 01/01/2023 12:26 AM Carlos Jensen MD CT Final Result * CT STROKE(HEAD WO) (01/01/2023 12:01 AM REVENUE CYCLE ADMINISTRATOR) Anatomical Region Laterality Modality Head Computed Tomogra phy 01/01/2023 12:2 3 AM REVENUE CYCLE ADMINISTRATOR Impressions 01/01/2023 12:26 AM REVENUE CYCLE ADMINISTRATOR IMPRESSION: No acute intracranial abnormalities identified. Referred By: ?? Interpreted By: Wilner Hopkins DO, 01/01/2023 12:23 AM Narrative 01/01/2023 12:26 AM REVENUE CYCLE ADMINISTRATOR EXAMINATION: CT head without contrast HISTORY: Left arm and leg numbness with tingling. ??Concern for stroke. COMPARISON: None. TECHNIQUE: Axial CT images of the head without the use of intravenous contrast. A dose lowering technique was used for this procedure, which may include, but is not limited to, dose reduction technique, automated exposure control, the use of degenerative reconstruction, and ALARA/image gently techniques. FINDINGS: No evidence of acute intracranial hemorrhage, edema, or mass effect. ??The loving- white matter differentiation appears acutely well-preserved. ??There is no midline shift. ??No abnormal extra-axial fluid collections. ??The ventricular system is normally sized. ??There is no hydrocephalus. ??There is calcification of the pineal gland. ??No acute appearing orbital abnormalities. ??The paranasal sinuses are clear. ??The mastoid air cells are clear. ??No acute osseous abnormalities are identified. ?? Procedure Note Wilner Hopkins DO - 01/01/2023 EXAMINATION: CT head without contrast HISTORY: Left arm and leg numbness with tingling. Concern for stroke. COMPARISON: None. TECHNIQUE: Axial CT images of the head without the use of intravenous contrast. A dose lowering technique was used for this procedure, which may include,but is not limited to, dose reduction technique, automated exposurecontrol, the use of degenerative reconstruction, and ALARA/image gentlytechniques. FINDINGS: No evidence of acute intracranial hemorrhage, edema, or mass effect. Thegray- white matter differentiation appears acutely well-preserved. Thereis no midline shift. No abnormal extra-axial fluid collections. Theventricular system is normally sized. There is no hydrocephalus. Thereis calcification of the pineal gland. No acute appearing orbitalabnormalities. The paranasal sinuses are clear. The mastoid air cellsare clear. No acute osseous abnormalities are identified. IMPRESSION: No acute intracranial abnormalities identified. Referred By: Interpreted By: Wilner Hopkins DO, 01/01/2023 12:23 AM Carlos Jensen MD CT Final Result documented in this encounter Visit Diagnoses Diagnosis TIA (transient ischemic attack)- Primary Unspecified transient cerebral ischemia Paresthesias Disturbance of skin sensation Dehydration documented in this encounter Admitting Diagnoses Diagnosis TIA (transient ischemic attack) Unspecified transient cerebral ischemia documented in this encounter Administered Medications Inactive Administered Medications - up to 3 most recent administrations Medication Order MAR Action Action Date Dose Rate Site iopamidol (ISOVUE-370) 76 % injection 80 mL 80 mL, Intravenous, IMG once as needed, Contrast, 1 dose, Starting on 01/01/23 at 0009, Until 01/01/23 at 0009 Given 01/01/2023 12:09 AM REVENUE CYCLE ADMINISTRATOR 80 mLs Right Arm sodium chloride 0.9% bolus infusion 1,000 mL 1,000 mL, Intravenous, Administer over 30 Minutes, Once, 1 dose, On 01/01/23 at 0200 New Bag 01/01/2023 2:01 AM REVENUE CYCLE ADMINISTRATOR 1,000 mLs documented in this encounter Active and Recently Administered Medications Times are shown in REVENUE CYCLE ADMINISTRATOR. Scheduled Medication Order 12/30/2022 12/31/2022 01/01/2023 sodium chloride 0.9% bolus infusion 1,000 mL (COMPLETED) 1,000 mL, Intravenous, Administer over 30 Minutes, Once, 1 dose, On 01/01/23 at 0200 0201 (New Bag - Prov ider: Kian Ruffin, RN)0300 (Infusion Stop Time - Provider: Trinh Martel RN) PRN Medication Order 12/30/2022 12/31/2022 01/01/2023 iopamidol (ISOVUE-370) 76 % injection 80 mL (COMPLETED) 80 mL, Intravenous, IMG once as needed, Contrast, 1 dose, Starting on 01/01/23 at 0009, Until 01/01/23 at 0009 0009 (Given - Provid er: Cynthia Giles, RTR) documented in this encounter Additional Health Concerns Assessment Noted Time PHQ-9 Depression Total Score: 2 07/17/20 20 9:06 AM CDT documented as of this encounter Care Teams Colorer Hides And Skins Relationship Specialty Start Date End Date None, Provider, PCP - General 05/06/21 10/27/24 documented as of this encounter
--- OUTSIDE RECORDS SUMMARY | 2024-11-04 23:02 | XMS_ITS | Encounter Summary ---
Author Organization [facility] Address [address] [place] [address]. [place], [place] [address] [place] [id number] Care Team Providers Care Cone Classifier Tender Name Role Phone None, Provider Primary Care Provider Hayder bowles Encounter Details Date Type Department Care Team (Latest Contact Info) Description 12/31/2022 Travel Social History Tobacco Use Types Packs/Day [...] suspected to have Coronavirus/COVID-19? 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
--- OUTSIDE RECORDS SUMMARY | 2024-11-04 23:02 | XMS_ITS | Encounter Summary ---
Author Organization [facility] Address [address] [place] [address]. [place] [address] [place] [address] Care Team Providers Care Sleeve Ironer Name Role Phone None, Provider Primary Care Provider Hayder bowles Encounter Details Date Type Department Care Team (Latest Contact Info) Description 09/26/2021 Travel Social History Tobacco Use Types Packs/Day [...] COVID-19? No / Unsure 09/26/2021 2:44 PM BOWLING BALL ASSEMBLER documented as of this encounter Functional Status [...] documented as of this encounter Care Teams Sleeve Ironer Relationship Specialty Start Date End Date None, Provider, PCP - General 05/06/21 10/27/24 documented as of this encounter
--- OUTSIDE RECORDS SUMMARY | 2024-11-04 23:02 | XMS_ITS | Encounter Summary ---
Author Organization [facility] Address [address] [place] [address]. [place], [place] [id number] [place] [address] Care Team Providers Care Combination Window Installer Name Role Phone Unavailable Primary Care Provider Unavailabl e Reason for Visit * Reason Comments EGD (SCAN) Encounter Details Date Type Department Care Team (Latest Contact Info) Description 02/02/2021 Scan [facility] Scanned, Documents EGD (SCAN) Social History Tobacco Use Types Packs/Day [...] Procedure Name Priority Date/Time Associated Diagnosis Comments EGD GENERIC (SCAN ORDER) 02/02/2021 EGD GENERIC (SCAN ORDER) 02/02/2021 documented in this encounter Results * EGD GENERIC (02/02/2021) 02/02/2021 Narrative 02/02/2021 Ordered by an unspecified provider. us Documents Scanned SCANNING Final Result * EGD GENERIC (02/02/2021) 02/02/2021 Narrative 02/02/2021 Ordered by an unspecified provider. us Documents Scanned SCANNING Final Result documented in this encounter Visit Diagnoses Not on filedocumented in this encounter Additional Health Concerns Assessment Noted Time PHQ-9 Depression Total Score: 2 07/17/20 20 9:06 AM CDT documented as of this encounter
--- OUTSIDE RECORDS SUMMARY | 2024-11-04 23:02 | XMS_ITS | Encounter Summary ---
Author Organization [facility] Address [facility]. [place], [place] [id number] [place] [address] Care Team Providers Care Gill Net Stringer Name Role Phone Unavailable Primary Care Provider Unavailabl e Encounter Details Date Type Department Care Team (Latest Contact Info) Description 03/10/2021 Scan HEALTH INFO SRVCS Scanned, Documents Social [...]
--- OUTSIDE RECORDS SUMMARY | 2024-11-04 23:02 | XMS_ITS | Encounter Summary ---
Author Organization [facility] Address [address] [place] [address]. [place] [address] [place] [address] Care Team Providers Care Radiological Engineer Name Role Phone Unavailable Primary Care Provider Unavailabl e Reason for Visit * Reason Onset Date Comments Ultrasound 08/04/2020 Encounter Details Date Type Department Care Team (Late st Contact Info) Description 08/04/2020 Telephone [facility] Family and Sports Medicine - [place] [address] [place] [address] Rose Marie Norton, JUAN JOSE [address] [place] [address] Ultrasound Social History Tobacco Use Types Packs/Day Years [...] documented in this encounter Progress Notes * Amy Lambert MA - 08/05/2020 8:56 AM CDT I will have rose marie sign it and refax. * Jamaica Goodrich - 08/05/2020 8:52 AM CDT Cris received the US order but is asking if Rose Marie Norton would sign it. Patient is now coming for avisit on 08/19. Please refax signed US order. * Amy Lambert MA - 08/04/2020 9:31 AM CDT Ordered and will fax later today * Jamaica Goodrich - 08/04/2020 8:44 AM CDT US order bilateral of the breast for pain. Patient is scheduled tomorrow at 9:45. . documented in this encounter Plan of Treatment Not on file documented as of this encounter Visit Diagnoses Diagnosis Breast pain- Primary Mastodynia documented in this encounter Additional Health Concerns Assessment Noted Time PHQ-9 Depression Total Score: 2 07/17/20 20 9:06 AM CDT documented as of this encounter
--- OUTSIDE RECORDS SUMMARY | 2024-11-04 23:02 | XMS_ITS | Encounter Summary ---
Author Organization [facility] Address [address] [place] [address]. [place] [address] [place] [address] Care Team Providers Care Staff Consultant Name Role Phone Unavailable Primary Care Provider Unavailabl e Reason for Visit * Reason Comments Annual Tender left breast. Encounter Details Date Type Department Care Team (Late st Contact Info) Description 07/17/2020 8:40 AM CDT Office Visit [facility] Family and Sports Medicine - [place] [address] [place] [address] Rose Marie Norton, JUAN JOSE [address] [place] [address] Annual (Tender left breast.) Social History Tobacco Use Types Packs/Day Years [...] Sign Reading Time Taken Comments Blood Pressure 134/82 07/17/2020 8:40 AM CDT Pulse 70 07/17/2020 8:40 AM CDT Temperature 36.4 ??C (97.6 ??F) 07/17/2020 8:40 AM CD T Respiratory Rate 18 07/17/2020 8:40 AM CDT Oxygen Saturation 99% 07/17/2020 8:40 AM CDT Inhaled Oxygen Concentration - - Weight 114.3 kg (252 lb) 07/17/2020 8:40 AM CDT Height 162.6 cm (5' 4 ) 07/17/2020 8:40 AM CDT Body Mass Index 43.26 07/17/2020 8:40 AM CDT documented in this encounter Functional [...] Notes * Rose Marie Norton NP - 07/17/2020 8:40 AM CDT SUBJECTIVE: Maria Del Carmen Ray is a 44-year-old female who is a , Established Patient coming in today for a complete physical exam. She does feel her left breast feels slightly tender. She did recently have COVID, she does have some lingering decreased taste and smell. GERD- well controlled with meds. Last tetanus vaccination: with in 10 years Last influenza vaccination: declines Last dental exam: with in 1 year Last comprehensive eye exam: 2 months ago Last pap smear: hysterectomy Last mammogram: she has never had Last colonoscopy: last year Last bone density: not needed PAST MEDICAL/SURGICAL HISTORY: Past Medical History: Diagnosis Date ??? Diverticulitis ??? Hypertension 06/05/2012 ??? Onychomycosis ??? Scabies ??? Tinea corporis ??? Tinea cruris Past Surgical History: Procedure Laterality Date ??? APPENDECTOMY ??? COLONOSCOPY N/A 08/09/2019 COLONOSCOPY WITH polypectomy of sigmoid and rectum via hot forcep performed by Kathy Bailey MD at [facility] ??? 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 She denies any history of domestic violence. FAMILY HISTORY: Family History Problem Relation Name Age of Onset ??? Hypertension Father ??? Stroke Father ??? None Mother Current Outpatient Medications Medication Sig ??? omeprazole 20 MG capsule Take 1 capsule (20 mg total) by mouth daily. ??? Phentermine HCl 37.5 MG Cap Take 1 tablet by mouth every morning before breakfast. No current facility-administered medications for this visit. Review of patient's allergies indicates: Amoxicillin IMMUNIZATION HISTORY: There is no immunization history for the selected administration types on file for this patient. Review of Systems Constitutional: Negative. HENT: Negative. Eyes: Negative. Respiratory: Negative. Cardiovascular: Negative. Gastrointestinal: Negative. Genitourinary: Negative. Musculoskeletal: Negative. Skin: Negative. Neurological: Negative. Endo/Heme/Allergies: Negative. Psychiatric/Behavioral: Negative. PHYSICAL EXAMINATION: Filed Vitals: 07/17/20 0840 BP: 134/82 Pulse: 70 Resp: 18 Temp: 97.6 ??F (36.4 ??C) TempSrc: Temporal SpO2: 99% Weight: 114.3 kg (252 lb) Height: 5' 4 (1.626 m) Body mass index is 43.26 kg/m??. Physical Exam Constitutional: She is oriented to person, place, and time. She appears well- developed and well-nourished. HENT: Head: Normocephalic and atraumatic. Right Ear: External ear normal. Left Ear: External ear normal. Nose: Nose normal. Mouth/Throat: Oropharynx is clear and moist. Eyes: Pupils are equal, round, and reactive to light. Conjunctivae and EOM are normal. Neck: Normal range of motion. Neck supple. Cardiovascular: Normal rate, regular rhythm and normal heart sounds. Pulmonary/Chest: Effort normal and breath sounds normal. Abdominal: Soft. Bowel sounds are normal. Musculoskeletal: Normal range of motion. Neurological: She is alert and oriented to person, place, and time. Skin: Skin is warm and dry. Capillary refill takes less than 2 seconds. Psychiatric: She has a normal mood and affect. ASSESSMENT/PLAN 1. Well adult exam - CBC W/DIFF AUTOMATED; Future - COMPREHENSIVE METABOLIC PANEL; Future - LIPID PANEL; Future - TSH W/REFLEX; Future - VITAMIN D, 25 OH; Future 2. Gastroesophageal reflux disease without esophagitis - omeprazole 20 MG capsule; Take 1 capsule (20 mg total) by mouth daily. Dispense: 30 capsule; Refill: 11 3. Class 3 severe obesity due to excess calories without serious comorbidity with body mass index (BMI) of 40.0 to 44.9 in adult (CMS/HCC) 4. History of 2019 novel coronavirus disease (COVID-19) - SARS COV 2 SEROLOGY (COVID 19) AB ([facility]) [facility] 5. Screening mammogram, encounter for - MG SCREENING JULIANNE DIGI 6. Need for hepatitis C screening test - HEPATITIS C ANTIBODY; Future Counseling also included: breast self exams, mammography screening, adequate intake of calcium and vitamin D by reviewing her current calcium needs of 1000 mg per day in divided doses along with vitamin D 0737-1495 IU per day, weight and nutritional management guidelines and the positive benefits of regular aerobic exercise. Medications/Labs/Vaccines: Tetanus vaccination status: current by report of the patient, Additionallab tests per EpicCare orders, Additional medications/refills per EpicCare orders. Return to the clinic annually or as needed. Maria Del Carmen v/u and leaves with no further questions or concerns. documented in this encounter Plan of Treatment Scheduled Orders Name Type Priority Associated Diagnoses Orde r Schedule SARS COV 2 SEROLOGY (COVID 19) AB ([facility]) [facility] Lab Routine History of 2019 novel coronavirus disease (COVID-19) Ordered: 07/17/2020 documented as of this encounter Visit Diagnoses Diagnosis Well adult exam- Primary Routine general medical examination at a [facility] facility Gastroesophageal reflux disease without esophagitis Esophageal reflux Class 3 severe obesity due to excess calories without serious comorbidity with body mass index (BMI) of 40.0 to 44.9 in adult ([facility]) History of 2019 novel coronavirus disease (COVID-19) Screening mammogram, encounter for Need for hepatitis C screening test Special screening examination for other specified viral diseases documented in this encounter Additional Health Concerns Assessment Noted Time PHQ-9 Depression Total Score: 2 07/17/20 20 9:06 AM CDT documented as of this encounter
--- OUTSIDE RECORDS SUMMARY | 2024-11-04 23:03 | XMS_ITS | Encounter Summary ---
Author Organization [facility] Address [address] [place] [address]. [place] [address] [place] [address] Care Team Providers Care Senior Interaction Designer Name Role Phone Unavailable Primary Care Provider Unavailabl e Reason for Visit * Reason Onset Date Comments Sore Throat 03/14/2020 Reports sore thr oat for a week. Has been gargling. No chest congestion, A little sinus drainage, No head congestion. Appointment Request 03/14/2020 Encounter Details Date Type Department Care Team (Late st Contact Info) Description 03/14/2020 Telephone [facility] Family and Sports Medicine - [place] [address] [place] [address] Rose Marie Norton NP [address] [place], [place] [id number] Sore Throat (Reports sore throat for a week. Has been gargling. No chest congestion, A little sinus drainage, No head congestion.); Appointment Request Social History Tobacco Use Types Packs/Day [...] documented in this encounter Progress Notes * Janett Miles CMA - 03/17/2020 8:48 AM CDT LMOM For pt to return call. I will talk to pt when she calls please. * Cassidy Leary - 03/14/2020 2:09 PM CDT Patient coming in on 03/17 @ 2:00 to see Rose Marie * Lucina Santillan - 03/14/2020 1:45 PM CDT LM for pt to call back to schedule. * Federico Romo RN - 03/14/2020 8:22 AM CDT RN Triaged respiratory symptoms Reports sore throat for a week. Has been gargling. No chest congestion, A little sinus drainage, Nohead congestion. States has been gargling salt water, feels like razor blades and throat is on fire. Denies every other symptom of covid questionaire. [facility]t at [facility]. Declines. Does not want to travel or be around other people even after explaining [facility] protocols and isolating process. Would like a virtual or phone appt. Does have a smart phone. documented in this encounter Plan of Treatment Not on file documented as of this encounter Visit Diagnoses Not on filedocumented in this encounter
--- OUTSIDE RECORDS SUMMARY | 2024-11-04 23:03 | XMS_ITS | Encounter Summary ---
Author Organization [facility] Address [address] [place] [address]. [place] [address] [place] [address] Care Team Providers Care Inspector And Unloader Name Role Phone Unavailable Primary Care Provider Unavailabl e Reason for Visit * Reason Comments Low Back Pain left side, radiates down left leg, Encounter Details Date Type Department Care Team (Late st Contact Info) Description 02/16/2019 1:00 PM CDT Office Visit [facility] Family and Sports Medicine - [place] [address] [place] [address] Rose Marie Ramirez NP [address] [place], [place] [phone] [id number] Low Back Pain (left side, radiates down left leg, ) Social History Tobacco Use Types Packs/Day Years Used Date Smoking Tobacco: Former Cigarettes Smokeless Tobacco: Never Alcohol Use Standard Drinks/Week Comments Yes 0 (1 standard drink = 0.6 oz pur e alcohol) Comments Unknown Sex and Gender Information Value Date Recorded Sex Assigned at Not on file Legal Sex Female 6:50 PM CDT Gender Identity Not on file Sexual Orientation Not on file documented as of this encounter Last Filed Vital Signs Vital Sign Reading Time Taken Comments Blood Pressure 102/72 02/16/2019 1:04 PM CDT Pulse 78 02/16/2019 1:04 PM CDT Temperature 36.9 ??C (98.5 ??F) 02/16/2019 1:04 PM CD T Respiratory Rate - - Oxygen Saturation 98% 02/16/2019 1:04 PM CDT Inhaled Oxygen Concentration - - Weight 108.9 kg (240 lb) 02/16/2019 1:04 PM CDT Height 160 cm (5' 2.99 ) 02/16/2019 1:04 PM CDT Body Mass Index 42.52 02/16/2019 1:04 PM CDT documented in this encounter Progress Notes * Rose Marie Ramirez, CEMENT PRODUCTION PLANT OPERATOR - 02/16/2019 1:00 PM CDT Images from the original note were not included. [facility] [address], [address] [place] [address] OFFICE VISIT NOTE Encounter Date: 02/16/2019 Chief Complaint: Maria Del Carmen Ray is a 43-year-old female here for Low Back Pain (left side, radiates down left leg, ) HPI Here with c/o back pain that started about a moth ago but is not improving. Pain is on left side and going down her left leg. Slight numbness down her left leg. No loss of bowel or bladder control. She had surgery on 12/27/18 thus has not been as active as normal. She has a history of lower back pain and had a disc bulge on imaging at one point. Review of Systems Constitutional: Negative. Respiratory: Negative. Cardiovascular: Negative. Gastrointestinal: Negative. Psychiatric/Behavioral: Negative. Patient Active Problem List Diagnosis ??? Backache ??? Esophageal reflux ??? Foot pain ??? Hypertension ??? Knee pain, right ??? Obesity ??? Sinusitis History reviewed. No pertinent past medical history. Past Surgical History: Procedure Laterality Date ??? APPENDECTOMY ??? HYSTERECTOMY Family History Problem Relation Name Age of Onset ??? Hypertension Father ??? Stroke Father Social History Socioeconomic History ??? Marital status: Single Spouse name: Not on file ??? Number of children: Not on file ??? Years of education: Not on file ??? Highest education level: Not on file Occupational History ??? Not on file Social Needs ??? Financial resource strain: Not on file ??? Food insecurity: Worry: Not on file Inability: Not on file ??? Transportation needs: Medical: Not on file Non-medical: Not on file Tobacco Use ??? Smoking status: Former Smoker Types: Cigarettes ??? Smokeless tobacco: Never Used Substance and Sexual Activity ??? Alcohol use: Yes ??? Drug use: No ??? Sexual activity: Not on file Lifestyle ??? Physical activity: Days per week: Not on file Minutes per session: Not on file ??? Stress: Not on file Relationships ??? Social connections: Talks on phone: Not on file Gets together: Not on file Attends voodoo service: Not on file Active member of club or organization: Not on file Attends meetings of clubs or organizations: Not on file Relationship status: Not on file ??? Intimate partner violence: Fear of current or ex partner: Not on file Emotionally abused: Not on file Physically abused: Not on file Forced sexual activity: Not on file Other Topics Concern ??? Not on file Social History Narrative ??? Not on file There is no immunization history on file for this patient. Current Outpatient Medications Medication Sig Dispense Refill ??? dexlansoprazole (DEXILANT) 60 MG capsule Take 60 mg by mouth daily. No current facility-administered medications for this visit. Allergies Allergen Reactions ??? Amoxicillin Rash Objective: Vitals: 02/16/19 1304 BP: 102/72 Pulse: 78 Temp: 98.5 ??F (36.9 ??C) SpO2: 98% Physical Exam Constitutional: She is well-developed, well-nourished, and in no distress. Cardiovascular: Normal rate, regular rhythm and normal heart sounds. Pulmonary/Chest: Effort normal and breath sounds normal. Psychiatric: Mood and affect normal. Assessment/Plan: 1. Acute left-sided low back pain with left-sided sciatica - predniSONE 20 MG tablet; Take 1 tablet (20 mg total) by mouth daily for 5 days. Dispense: 5 tablet; Refill: 0 - continue naproxen at home - at home exercises ROSE MARIE RAMIREZ NP documented in this encounter Plan of Treatment Not on file documented as of this encounter Visit Diagnoses Diagnosis Acute left-sided low back pain with left-sided sciatica- Primary documented in this encounter
--- OUTSIDE RECORDS SUMMARY | 2024-11-04 23:03 | XMS_ITS | Encounter Summary ---
Author Organization [facility] Address [address] [place] [address]. [place], [place] [phone] [place] [address] Care Team Providers Care Router Setter Name Role Phone Unavailable Primary Care Provider Unavailabl e Reason for Visit * Reason Comments Hospital H&P (SCAN) HISTORY AND PHYSICAL Encounter Details Date Type Department Care Team (Late st Contact Info) Description 12/26/2018 Scan HEALTH INFO SRVCS Scanned, Documents Hospital H&P (SCAN) (HISTORY AND PHYSICAL) Social History Tobacco Use Types Packs/Day Years [...] on file documented as of this encounter Plan of Treatment Not on file documented as of this encounter Visit Diagnoses Not on filedocumented in this encounter
--- OUTSIDE RECORDS SUMMARY | 2024-11-04 23:03 | XMS_ITS | Encounter Summary ---
Author Organization [facility] Address [address] [place] [address]. [place], [place] [address] [place] [address] Care Team Providers Care Spring Maker Name Role Phone Unavailable Primary Care Provider Unavailabl e Reason for Visit * Reason Comments Lab (SCAN) Encounter Details Date Type Department Care Team (Latest Contact Info) Description 03/24/2020 Scan [facility] HEALTH INFO SRVCS Scanned, Documents [...] Priority Date/Time Associated Diagnosis Comments OUTSIDE LAB COVID-19 (SCAN ORDER) Routine 03/24/2020 documented in this encounter Results * OUTSIDE LAB COVID-19 (SCAN) (03/24/2020) CORONAVIRUS SARS COV 2 PCR (RESP) NOT DETECTED NOT DETECTED [facility] ONBASE 03/24/2020 us Documents Scanned SCANNING Edited Result - Final HS ONBASE documented in this encounter Visit Diagnoses Not on filedocumented in this encounter
--- OUTSIDE RECORDS SUMMARY | 2024-11-04 23:03 | XMS_ITS | Encounter Summary ---
Author Organization [facility] Address [address] [place] [address]. [place] [address] [place] [address] Care Team Providers Care Motorcycle Deliverer Name Role Phone Unavailable Primary Care Provider Unavailabl e Reason for Visit * Reason Comments Physical pt having hysterecto my on Dec 26 wants labs and such done Encounter Details Date Type Department Care Team (Late st Contact Info) Description 12/08/2018 8:40 AM SWIMMING PROFESSOR Office Visit [facility] Family and Sports Medicine - [place] [address] [place] [phone] Rose Marie Norton, [facility] [address] [place], [place] [phone] Physical (pt having hysterectomy on Dec 26 wants labs and such done) Social History Tobacco Use Types Packs/Day Years [...] Sign Reading Time Taken Comments Blood Pressure 132/82 12/08/2018 8:38 AM SWIMMING PROFESSOR Pulse 76 12/08/2018 8:38 AM SWIMMING PROFESSOR Temperature - - Respiratory Rate 18 12/08/2018 8:38 AM SWIMMING PROFESSOR Oxygen Saturation 98% 12/08/2018 8:38 AM SWIMMING PROFESSOR Inhaled Oxygen Concentration - - Weight 109.8 kg (242 lb) 12/08/2018 8:38 AM SWIMMING PROFESSOR Height 160 cm (5' 3 ) 12/08/2018 8:38 AM SWIMMING PROFESSOR Body Mass Index 42.87 12/08/2018 8:38 AM SWIMMING PROFESSOR documented in this encounter Progress Notes * Rose Marie Norton NP - 12/08/2018 8:40 AM CST SUBJECTIVE: Maria Del Carmen Ray is a 43-year-old female who is an, , Established Patient coming in today for a complete physical exam. She is having a hysterectomy December 26 for fibroids. Last tetanus vaccination: last year Last influenza vaccination: declines Last dental exam: over a year Last comprehensive eye exam: over a year PAST MEDICAL/SURGICAL HISTORY: History reviewed. No pertinent past medical history. Past Surgical History: Procedure Laterality Date ??? APPENDECTOMY Obstetric History No data available SOCIAL HISTORY: Alcohol intake: occasional Caffeine intake: consumes approximately 1-2 drinks per week(s) Smokes: denied Calcium intake: adequate by diet and supplements She does very irregular exercise program, by walking She uses her seatbelt 100% of the time. She denies any history of domestic violence. FAMILY HISTORY: Family History Problem Relation Name Age of Onset ??? Hypertension Father ??? Stroke Father Current Outpatient Medications Medication Sig ??? pantoprazole 40 MG tablet Take 40 mg by mouth daily. ??? albuterol sulfate HFA (PROAIR HFA) 108 (90 Base) MCG/ACT inhaler Inhale 2 puffs into the lungs every 4 (four) hours as needed. ??? ibuprofen 800 MG tablet Take 1 tablet by mouth. ??? triamterene-hydrochlorothiazide 37.5-25 MG capsule Take 1 capsule by mouth daily. No current facility-administered medications for this visit. Review of patient's allergies indicates: Amoxicillin IMMUNIZATION HISTORY: There is no immunization history on file for this patient. REVIEW OF SYSTEMS: Negative for any weight gain or weight loss. No fever, fatigue, no HEENT concerns. No MANUFACTURING QUALITY TECHNICIAN concerns; denies headache, seizures, dizziness, or weakness. No chest pain, tightness, shortness of breath or wheezing. No GI or concerns. No musculoskeletal concerns; denies joint pain or myalgias. No skin rash or lesions. No breast concerns. No problems with depression or anxiety. Last pap smear: 2 months ago, WNL Last mammogram: has never had. Last colonoscopy: has never had . Last bone density: never has had. PHYSICAL EXAMINATION: Filed Vitals: 12/08/18 0838 BP: 132/82 Pulse: 76 Resp: 18 SpO2: 98% Weight: 109.8 kg (242 lb) Height: 5' 3 (1.6 m) Body mass index is 42.87 kg/m??. This is a well developed, well nourished and obese female in no acute distress. Body mass index is 42.87 kg/m??. HEENT: Normocephalic, eyes: schlera/conjunctiva clear, PERRLA, EOMI, Ears: canals and TM's wnl, Nose: patent and dry. Mouth: lips are moist mucosa is moist, oral pharynx is clear. Neck: Neck supple. No adenopathy. Thyroid symmetric, normal size, and without nodularity. Lungs: Lungs clear to auscultation bilaterally. Heart: regular rate and rhythm without audible murmur. Abdomen: soft, nontender, and nondistended. No masses or hepatosplenomegaly. No incisional scars orventral hernias. Musculoskeletal: strength to the upper and lower extremities is good, 5/5. Neuro: DTRs, brachioradialis, patellar, and Achilles 2+/2+. MANUFACTURING QUALITY TECHNICIAN intact. CN II- XII grossly intact. ASSESSMENT: Annual physical, normal preventive exam. DISCUSSION AND PLAN: Health Maintenance: Mammogram: Screening is current. Colonoscopy: Patient does not meet age requirements at this time. DEXA Scan:Patient does not meet age requirements at this time. Counseling also included: use and side effects of prescribed medications discussed, adequate intakeof calcium and vitamin D by reviewing her current calcium needs of 1000 mg per day in divided dosesalong with vitamin D 6431-5963 IU per day, weight and nutritional management guidelines and the positive benefits of regular aerobic exercise. Medications/Labs/Vaccines: Additional lab tests per [facility] orders, Patient will be contacted withresults of tests done per Epic orders. Return to the clinic annually or as needed. Maria Del Carmen v/u and leaves with no further questions or concerns. MING PROFESSOR documented in this encounter Plan of Treatment Scheduled Orders Name Type Priority Associated Diagnoses Orde r Schedule VENIPUNC ARM DRAW Procedures Routine Essential hypertension Ordered: 12/08/2018 documented as of this encounter Results * XR CHEST PA+LAT (12/14/2018 5:08 PM SWIMMING PROFESSOR) Anatomical Region Laterality Modality Chest Radiographic Rosi ging 12/14/2018 7:34 PM SWIMMING PROFESSOR Impressions 12/14/2018 7:35 PM SWIMMING PROFESSOR =====IMPRESSION:===== No acute or focal infiltrates. Narrative 12/14/2018 7:35 PM SWIMMING PROFESSOR Examination: Chest x-ray 2 view Exam date/time: 12/14/2018 5:08 PM Reason For Exam: ??cough ? Comparison: Previous studies 10/07/2017 Technique: PA and lateral views of the chest were obtained. Findings: Heart size is within normal limits. Mediastinum is unremarkable. In the lung parenchyma no acute or focal infiltrates. There is no effusion or free air. Osseous structures are intact. Procedure Note Ray Blackwell MD - 12/14/2018 Examination: Chest x-ray 2 view Exam date/time: 12/14/2018 5:08 PM Reason For Exam: cough Comparison: Previous studies 10/07/2017 Technique: PA and lateral views of the chest were obtained. Findings: Heart size is within normal limits. Mediastinum isunremarkable. In the lung parenchyma no acute or focal infiltrates. There is noeffusion or free air. Osseous structures are intact. =====IMPRESSION:===== No acute or focal infiltrates. Rose Marie Norton [facility] GENERAL IMAGING Final Result * TSH W/REFLEX (12/08/2018 9:28 AM SWIMMING PROFESSOR) TSH 1.800 0.358 - 3.74 uIU/ML 12/08/2018 7:[address] [facility] Comment: HIGH DOSES OF BIOTIN MAY INTERFERE WITH THIS TEST RESULT. CORRELATION TO CLINICAL HISTORY AND PRESENTATION RECOMMENDED. FREE T4 NOT INDICATED 12/08/2018 9:28 AM SWIMMING PROFESSOR us Rose Marie Vickie Errol [facility] LABORATORY Final Result [facility] [address] [place] [address], * (ABNORMAL) LIPID PANEL (12/08/2018 9:28 AM SWIMMING PROFESSOR) CHOLESTEROL 182 <200 MG/DL 12/08/2018 7:[address] [facility] TRIGLYCERIDES 96 <150 MG/DL 12/08/2018 7:[address] [facility] HDL 57 >40.0 MG/DL 12/08/2018 7:[address] [facility] LDL (CALCULATED) 106(H) <100 MG/DL 12/08/2018 7:[address] [facility] NON HDL CHOLESTEROL 125 <130 MG/DL 12/08/2018 7:[address] [facility] CHOL/HDL RATIO 3.2 0.0 - 4.5 12/08/2018 7:[address] [facility] VLDL CALCULATION 19 5 - 55 MG/DL 12/08/2018 7:[address] [facility] LIPID INTERPRETATION 12/08/2018 7:[address] [facility] Comment: NIH CONCENSUS REPORT RECOMMENDATIONS: ?ADULT [...] ?LDL ? >=160 ?>=130 12/08/2018 9:28 AM SWIMMING PROFESSOR us Rose Marie Norton [facility] LABORATORY Final Result [facility] [address] [place] [address], * (ABNORMAL) COMPREHENSIVE METABOLIC PANEL (12/08/2018 9:28 AM SWIMMING PROFESSOR) GLUCOSE 87 70 - 99 MG/DL 12/08/2018 7:45 PM SWIMMING PROFESSOR [facility] BUN 18 7 - 18 MG/DL 12/08/2018 7:[address] [facility] CREATININE S/P/B 0.96 0.55 - 1.02 MG/DL 12/08/2018 7:[address] [facility] SODIUM S/P/B 145 136 - 145 MMOL/L 12/08/2018 7:[address] [facility] POTASSIUM S/P/B 4.4 3.5 - 5.1 MMOL/L 12/08/2018 7:[address] [facility] CHLORIDE S/P/B 111(H) 100 - 108 MMOL/L 12/08/2018 7:[address] [facility] CO2 27.6 21 - 32 MMOL/L 12/08/2018 7:[address] [facility] CALCIUM S/P/B 8.3(L) 8.5 - 10.1 MG/DL 12/08/2018 7:[address] [facility] BILIRUBIN TOTAL S/P/B 0.2 0.2 - 1.2 MG/DL 12/08/2018 7:[address] [facility] TOTAL PROTEIN S/P/B 6.3(L) 6.4 - 8.2 G/DL 12/08/2018 7:[address] [facility] ALBUMIN S/P/B 3.4 3.4 - 5.0 G/DL 12/08/2018 7:[address] [facility] AST 14(L) 15 - 37 U/L 12/08/2018 7:[address] [facility] ALT 23 14 - 55 U/L 12/08/2018 7:[address] [facility] ALKALINE PHOSPHATASE S/P/B 94 50 - 136 U/L 12/08/2018 7:[address] [facility] ANION GAP 10.8 8 - 20 MMOL/L 12/08/2018 7:[address] [facility] BUN CREATININE RATIO 18.8 6 - 26 12/08/2018 7:[address] [facility] A/G RATIO 1.2 1.0 - 2.0 RATIO 12/08/2018 7:[address] [facility] EGFR NON-AFR. AMER. 73(L) >90 ML/MIN/1.7 3 M2 12/08/2018 7:[address] [facility] EGFR AFR. AMER. 85(L) >90 ML/MIN/1.7 3 M2 12/08/2018 7:[address] [facility] Comment: NOTE: eGFR is not calculated for patients <18 years of age. This is an estimated GFR (CKD EPI) and should not be used for calculating drug doses. 12/08/2018 9:28 AM SWIMMING PROFESSOR Rose Marie Norton NP LABORATORY Final Result [facility] [address] [place] [address], [place] [phone] * (ABNORMAL) CBC W/DIFF AUTOMATED (12/08/2018 9:28 AM SWIMMING PROFESSOR) WBC 9.2 4.5 - 11.0 x10'3/uL 12/08/2018 7:[address] [facility] RBC 4.54 4.20 - 5.40 x10'6/uL 12/08/2018 7:[address] [facility] HGB 12.9 12.0 - 16.0 G/DL 12/08/2018 7:[address] [facility] HCT 42.0 38.0 - 48.0 % 12/08/2018 7:[address] [facility] MCV 92.5 80.0 - 94.0 FL 12/08/2018 7:[address] [facility] MCH 28.4 27.0 - 31.0 PG 12/08/2018 7:[address] [facility] MCHC 30.7(L) 32.0 - 36.0 G/DL 12/08/2018 7:[address] [facility] RDW 14.2 11.5 - 14.5 % 12/08/2018 7:[address] [facility] PLT 314 130 - 400 x10'3/uL 12/08/2018 7:[address] [facility] MPV 10.5 9.3 - 12.2 FL 12/08/2018 7:[address] [facility] DIFFERENTIAL TYPE AUTOMATED DIFFERENTIAL 12/08/2018 7:[address] [facility] NEUTROPHILS % 63.9 % 12/08/2018 7:[address] [facility] LYMPHOCYTES % 28.9 % 12/08/2018 7:[address] [facility] MONOCYTES % 4.3 % 12/08/2018 7:[address] [facility] EOSINOPHILS 1.8 % 12/08/2018 7:[address] [facility] BASOPHILS 0.9 % 12/08/2018 7:[address] [facility] IMMATURE GRANS % 0.2(H) 0 % 12/08/19 19 7:[address] [facility] ABS. NEUTROPHILS TOTAL 5.90 1.80 - 7.70 x10'3/uL 12/08/2018 7:[address] [facility] ABS. LYMPHOCYTES 2.67 1.00 - 4.80 x10'3/uL 12/08/2018 7:[address] [facility] ABS. MONOCYTES 0.40 0.24 - 0.86 x10'3/uL 12/08/2018 7:25 PM SWIMMING PROFESSOR [facility] ABS. EOSINOPHILS 0.17 0.04 - 0.36 x10'3/uL 12/08/2018 7:25 PM SWIMMING PROFESSOR [facility] ABS. BASOPHILS 0.08 0.01 - 0.08 x10'3/uL 12/08/2018 7:25 PM SWIMMING PROFESSOR [facility] ABS. IMMATURE GRANULOCYTES 0.02 0.00 - 0.03 x10'3/uL 12/08/2018 7:25 PM SWIMMING PROFESSOR [facility] 12/08/2018 9:28 AM SWIMMING PROFESSOR Rose Marie Norton NP LABORATORY Final Result [facility] [address] [place] [address], [place] [phone] documented in this encounter Visit Diagnoses Diagnosis Well adult exam- Primary Routine general medical examination at a health care facility Essential hypertension Unspecified essential hypertension Cough Cough documented in this encounter
--- OUTSIDE RECORDS SUMMARY | 2024-11-04 23:03 | XMS_ITS | Encounter Summary ---
Author Organization [facility] Address [facility] [place] [address] [place] [address] Care Team Providers Care Manager Interface Name Role Phone Unavailable Primary Care Provider Unavailabl e Encounter Details Date Type Department Care Team (Late st Contact Info) Description 10/07/2017 Abstract [facility] Family and Sports Medicine - [place] [phone] Sage Gastelum MD Social History Tobacco Use Types Packs/Day Years Used Date Smoking Tobacco: Never Assessed Comments Unknown Sex and Gender Information Value Date Recorded Sex Assigned at Not on file Legal Sex Female 6:50 PM CDT Gender Identity Not on file Sexual Orientation Not on file documented as of this encounter Last Filed Vital Signs Vital Sign Reading Time Taken Comments Blood Pressure 126/78 10/07/2017 3:26 PM HIGH RIGGER Pulse 93 10/07/2017 3:26 PM HIGH RIGGER Temperature - - Respiratory Rate - - Oxygen Saturation - - Inhaled Oxygen Concentration - - Weight - - Height - - Body Mass Index - - documented in this encounter Progress Notes * aSge Gastelum MD - 10/07/2017 3:40 PM CST Reason For Visit Reason For Visit: Acute Visit Chief Complaint Pt is here for cough x 3 weeks. History of Present Illness HPI Free Text: 42-year-old female presents to the same-day clinic with a three- week history of cough, postnasal drainage, chest congestion, occasional wheezing. Also has some mild rhinorrhea. No nasal congestion. No fever. No other complaints. Review of Systems See HPI for pertinent positives. Active Problems 1. Back pain (724.5) (M54.9) 2. Catalina vaginitis (112.1) (B37.3) 3. Esophageal reflux (530.81) (K21.9) 4. Foot pain (729.5) (M79.673) 5. Hypertension (401.9) (I10) 6. Knee pain, right (719.46) (M25.561) 7. Obesity (278.00) (E66.9) 8. Sinusitis (473.9) (J32.9) Past Medical History 1. History of Cough (786.2) (R05) 2. History of Cough (786.2) (R05) 3. History of acute bronchitis (V12.69) (Z87.09) 4. History of acute sinusitis (V12.69) (Z87.09) 5. History of onychomycosis (V12.09) (Z86.19) 6. History of scabies (V12.09) (Z86.19) 7. History of streptococcal pharyngitis (V12.09) (Z87.09) 8. History of tinea corporis (V12.09) (Z86.19) 9. History of tinea cruris (V12.09) (Z86.19) Family History Mother 1. No pertinent family history Family History 2. No pertinent family history Social History ?? Current some day smoker (305.1) (F17.200) ?? Never Drank Alcohol ?? Never Used Drugs Current Meds 1. Fluconazole 150 MG Oral Tablet; take one tablet today then repeat in 2 days; Therapy: 30Fbo3491 to (Evaluate:03Pmw8014) Requested for: 91Gdi0243; Last Rx:[id number] Ordered Rx By: Rose Marie Norton; Dispense: 2 Days ; #:2 Tablet; Refill: 0; For: Catalina vaginitis; YASSINE = N; Verified Transmission to [facility] [id number]; Last Updated By: Vel Kay; 05/30/2017 3:25:07 PM 2. Ibuprofen 800 MG Oral Tablet; TAKE 1 TABLET EVERY 8 HOURS WITH FOOD; Therapy: 14Nov2015 to (Evaluate:12Feb2016) Requested for: 14Nov2015; Last Rx:14Nov2015 Ordered Rx By: Rose Marie Norton; Dispense: 30 Days ; #:90 Tablet; Refill: 2; For: Back pain; YASSINE = N; Verified Transmission to [facility]; Last Updated By: Gabriela [employer]; 11/14/2015 3:00:55 PM 3. Triamterene-HCTZ 37.5-25 MG Oral Capsule; TAKE ONE CAPSULE BY MOUTH EVERY DAY; Therapy: 35Rbf4473 to (Evaluate:10Sep2017) Requested for: 14Mar2017; Last Rx:14Mar2017 Ordered Rx By: Rose Marie Norton; Dispense: 30 Days ; #:30 Capsule; Refill: 5; For: Hypertension; YASSINE = N; VerifiedTransmission to [facility]; Last Updated By: [employer]; 03/14/2017 9:55:22 AM Allergies 1. No Known Drug Allergies Recorded By: Lori Beltran; 06/06/2012 10:29:10 AM Vitals Recorded: 07Oct2017 03:26PM Temperature 98.6 F, Oral Heart Rate 93 Respiration 16 Systolic 126, Sitting Diastolic 78, Sitting O2 Saturation 98 Physical Exam gen: nad heent: moderate nasal congestion. tms wnl.. throat clear. neck: supple. no adenopathy. heart: rrr s mrg lungs: cta skin: no rash neuro: no focal deficits. Assessment 1. Bronchitis, acute (466.0) (J20.9) Plan Bronchitis, acute 1. Azithromycin 250 MG Oral Tablet; TAKE 2 TABLETS ON DAY 1 THEN TAKE 1 TABLET A DAY FOR 4 DAYS Rx By: Sage Gastelum; Dispense: 0 Days ; #:6 Tablet; Refill: 0; For: Bronchitis, acute; YASSINE = N; Sent To: [facility] [id number] 2. Pre-printed Instructions given to patient; Status:Complete; Done: 07Oct2017 Ordered; For:Bronchitis, acute; Ordered By:Sage Gastelum; 3. XR CHEST 2 VIEW ( Routine ); Status:Active; Requested for:07Oct2017; Perform:[facility]; Due:10Pvp1498;Ordered; For:Bronchitis, acute; Ordered By:Sage Gastelum; 4. MethylPREDNISolone 4 MG Oral Tablet Therapy Pack; Take as directed on packaging Rx By: Sage Gastelum; Dispense: 0 Days ; #:1 X 21 Tablet Pack; Refill: 0; For: Bronchitis, acute;YASSINE = N; Sent To: [facility] [address] 5. ProAir HFA 108 (90 Base) MCG/ACT Inhalation Aerosol Solution; INHALE 2 PUFFS EVERY 4 HOURS NEEDED Rx By: Sage Gastelum; Dispense: 0 Days ; #:1 X 8.5 GM Inhaler; Refill: 0; For: Bronchitis, acute;YASSINE = N; Sent To: [facility] [address]; Msg to Pharmacy: Pharmacist: Dispense a spacer. You may substitute another brand of albuterol HFA inhaler (i.e. Proventil HFA, Ventolin HFA) for the ProAir HFA inhaler if needed for insurance purposes. 1) TAKE AN OVER THE COUNTER PROBIOTIC SUPPLEMENT (I.E. CULTURELLE) FOR 2-3 WEEKS. 2) SEE HANDOUT ON BRONCHITIS. 3) SEE YOUR DOCTOR IF NOT IMPROVING. 4) A CHEST X-RAY HAS BEEN ORDERED. GET THIS DONE NOW AT [address] [place] [address]. Discussion/Summary ADDENDUM: CXR shows right lung infiltrate vs nodule vs artifact....radiologist says to consider a CT scan. Given the context (she's been coughing for 3 weeks), I think pneumonia is the most likely. Icalled patient tonight at reached her at ~ 822 pm. The cxr result and plan discussed at length withher. Plan: take the zithromax, medrol, proair as prescribed. f/u with pcp in 10 days and get repeat cxr at that time. if in 10 days the cxr normalizes, then the right lung abnormality likely infiltrate/pneumonia or artifact. if the abnormality persists, then she'll need a CT scan via pcp. this result and plan discussed with patient at length. pt communicated understanding of this result and plan a nd says she'll make an appt to see pcp in 10 days. tm, 10/07/17. 912 pm Signatures Electronically signed by : Sage Gastelum M.D.; Oct 07 2017 9:14PM HIGH RIGGER (Author) documented in this encounter Plan of Treatment Not on file documented as of this encounter Visit Diagnoses Not on filedocumented in this encounter
--- OUTSIDE RECORDS SUMMARY | 2024-11-04 23:03 | XMS_ITS | Encounter Summary ---
Author Organization [facility] Address [address] [place] [address]. [place], [place] [address] [place] [address] Care Team Providers Care Frame Gate Mortiser Operator Name Role Phone Unavailable Primary Care Provider Unavailabl e Encounter Details Date Type Department Care Team (Latest Contact Info) Description 12/20/2018 Scan HEALTH INFO SRVCS Scanned, Documents Social [...]
--- OUTSIDE RECORDS SUMMARY | 2024-11-04 23:03 | XMS_ITS | Encounter Summary ---
Author Organization [facility] Address [address] [place] [address]. [place], [place] [address] [place] [address] Care Team Providers Care Loss Control Consultant Name Role Phone Unavailable Primary Care Provider Unavailabl e Encounter Details Date Type Department Care Team (Latest Contact Info) Description 10/11/2017 Abstract [facility] Medical Group Social History Tobacco Use Types Packs/Day [...]
--- OUTSIDE RECORDS SUMMARY | 2024-11-04 23:03 | XMS_ITS | Encounter Summary ---
Author Organization [facility] Address [address] [place] [address]. [place] [address] [place] [address] Care Team Providers Care Maintenance And Repair Worker Name Role Phone Unavailable Primary Care Provider Unavailabl e Reason for Visit * Reason Comments URI/ENT Symptoms States she has sore throat. Did strep swab at work x 6 days. Did not send Cx. Encounter Details Date Type Department Care Team (Late st Contact Info) Description 03/17/2020 2:00 PM CDT Telemedicine [facility] Family and Sports Medicine - [place] [address] [place] [address] Rose Marie Ramirez, IRONWORKER FOREMAN [address] [place], [place] [id number] URI/ENT Symptoms (States she has sore throat. Did strep swab at work x 6 days. Did not send Cx. ) Social History Tobacco Use Types Packs/Day [...] - Inhaled Oxygen Concentration - - Weight 114.8 kg (253 lb) 03/17/2020 2:05 PM CDT Height 162.6 cm (5' 4 ) 03/17/2020 2:05 PM CDT Body Mass Index 43.43 03/17/2020 2:05 PM CDT documented in this encounter Functional [...] Notes * Rose Marie Ramirez NP - 03/17/2020 2:00 PM CDT Images from the original note were not included. Primary and Specialty Care [address], [address] [place] [address] OFFICE VISIT NOTE Encounter Date: 03/20/2020 I introduced and identified myself, received verbal consent from the patient to proceed with this video visit and made the patient aware that the same confidentiality and information technology account manager practices apply. The patient joined the video visit from Home. I completed the virtual visit from Office. The following clinical staff helped with this visit MA: Lara Lucijustice. Total Time Spent in Minutes: 20 Chief Complaint: Maria Del Carmen Ray is a 44-year-old female with c/o URI/ENT Symptoms (States she has sore throat. Did strep swab at work x 6 days. Did not send Cx. ) HPI VV with c/o sore throat on left side only. Sore to touch that area on outside and sore to swallow. No fever, no body aches, no CRABTREE, no rashes Slight nauseas with eating, she is having some regurgitation of food. She does a hx of GERD does not take anything. She is seeing GI tomorrow. Review of Systems Constitutional: Negative. HENT: Positive for sore throat. Respiratory: Negative. Cardiovascular: Negative. Gastrointestinal: Positive for heartburn. Musculoskeletal: Negative. Neurological: Negative. Patient Active Problem List Diagnosis ??? Backache ??? Esophageal reflux ??? Foot pain ??? Hypertension ??? Knee pain, right ??? Obesity ??? Sinusitis ??? Diverticulitis Past Medical History: Diagnosis Date ??? Diverticulitis ??? Onychomycosis ??? Scabies ??? Tinea corporis ??? Tinea cruris Past Surgical History: Procedure Laterality Date ??? APPENDECTOMY ??? COLONOSCOPY N/A 08/09/2019 COLONOSCOPY WITH polypectomy of sigmoid and rectum via hot forcep performed by Kathy Bailey MD at [facility] ??? HYSTERECTOMY Family History Problem [...] status: Former Smoker Packs/day: 0.25 Types: Cigarettes Last attempt to quit: 08/09/2010 Years since quittin.6 ??? Smokeless tobacco: Never [...] file Gets together: Not on file Attends caodaism service: Not on file Active member of [...] Outpatient Medications Medication Sig Dispense Refill ??? cephALEXin (KEFLEX) 500 MG capsule Take 1 capsule (500 mg total) by mouth 2 (two) times daily for 10 days. 20 capsule 0 ??? omeprazole 20 MG capsule Take 1 capsule (20 mg total) by mouth daily. 30 capsule 1 ??? Phentermine HCl 37.5 MG Cap Take 1 tablet by mouth every morning before breakfast. 30 capsule 0 No current facility-administered medications for this visit. Allergies Allergen Reactions ??? Amoxicillin Rash Objective: There were no vitals filed for this visit. Unable to complete vital signs due to telehealth visit. Physical Exam: Constitutional: Patient is oriented to person, place, and time and well - developed, well-nourished,and in no distress. Neurological: Patient is alert and oriented to person, place, and time. HENT- throat appears normal Psychiatric: Mood, memory, affect and judgment normal. Assessment/Plan: 1. Pharyngitis, unspecified etiology - cephALEXin (KEFLEX) 500 MG capsule; Take 1 capsule (500 mg total) by mouth 2 (two) times daily for 10 days. Dispense: 20 capsule; Refill: 0 2. Gastroesophageal reflux disease without esophagitis - omeprazole 20 MG capsule; Take 1 capsule (20 mg total) by mouth daily. Dispense: 30 capsule; Refill: 1 If no improvement by next week will need in office visit to assess. Encouraged patient to stay at home, wear a mask if must leave the home, good handwashing and to follow social distancing. ROSE MARIE RAMIREZ NP documented in this encounter Plan of Treatment Not on file documented as of this encounter Visit Diagnoses Diagnosis Pharyngitis, unspecified etiology- Primary Gastroesophageal reflux disease without esophagitis Esophageal reflux documented in this encounter
--- OUTSIDE RECORDS SUMMARY | 2024-11-04 23:03 | XMS_ITS | Encounter Summary ---
Author Organization [facility] Address [facility]. [place], [place] [address] [place] [address] Care Team Providers Care Suction Operator Name Role Phone Unavailable Primary Care Provider Unavailabl e Encounter Details Date Type Department Care Team (Latest Contact Info) Description 08/30/2019 Scan HEALTH INFO SRVCS Scanned, Documents Social [...]
--- OUTSIDE RECORDS SUMMARY | 2024-11-04 23:03 | XMS_ITS | Encounter Summary ---
Author Organization [facility] Address [address] [place] [address]. [place] [address] [place] [address] Care Team Providers Care Library Sales Consultant Name Role Phone Unavailable Primary Care Provider Unavailabl e Reason for Visit * Reason Comments Follow Up hospital admit, disc harged 06/14/19, still has pain in abdomin Lab Draw repeat CBC Encounter Details Date Type Department Care Team (Late st Contact Info) Description 06/19/2019 1:40 PM CDT Office Visit [facility] Medical Group Family and Sports Medicine - [place] [address] [place] [address] Rose Marie Ramirez, HANDKERCHIEF FOLDER [address] [place], [place] [phone] Follow Up (hospital admit, discharged 06/14/19, still has pain in abdomin); Lab Draw (repeat CBC) Social History Tobacco Use Types Packs/Day Years [...] Sign Reading Time Taken Comments Blood Pressure 120/78 06/19/2019 1:40 PM CDT Pulse 68 06/19/2019 1:40 PM CDT Temperature - - Respiratory Rate - - Oxygen Saturation 95% 06/19/2019 1:40 PM CDT Inhaled Oxygen Concentration - - Weight 110 kg (242 lb 9.6 oz) 06/19/2019 1:40 PM CDT Height 162.6 cm (5' 4.02 ) 06/19/2019 1:40 PM CD T Body Mass Index 41.62 06/19/2019 1:40 PM CDT documented in this encounter Functional [...] Notes * Rose Marie Ramirez NP - 06/19/2019 1:40 PM CDT Images from the original note were not included. Primary [facility] Specialty Care [address], [address] [place] [address] OFFICE VISIT NOTE Encounter Date: 06/25/2019 Chief Complaint: Maria Del Carmen Ray is a 43-year-old female here for Follow Up (hospital admit, discharged 06/14/19, still has pain in abdomin) and LAB DRAW (repeat CBC) HPI Here for hosptial f/u, was admitted for for diverticulitis. Presented to ED with abdominal pain, CT showed concern for abscess and her WBC count was elevated. She was treated with levaquin and flagyl IV and changed to oral at [place]. She does have a f/u with GI made, will need colonoscopy. She needs CBC rechecked today and will need repeat UA in 4 weeks as she had hematuria and cystitis. She is still having some abdominal pain but is overall feeling better. Review of Systems Constitutional: Negative. Respiratory: Negative. Cardiovascular: Negative. Gastrointestinal: Positive for abdominal pain. Psychiatric/Behavioral: Negative. Patient Active Problem List Diagnosis [...] file Gets together: Not on file Attends episcopalian service: Not on file Active member of [...] immunization history on file for this patient. No current outpatient medications on file. No current facility-administered medications for this visit. Allergies Allergen Reactions ??? Amoxicillin Rash Objective: Vitals: 06/19/19 1340 BP: 120/78 Pulse: 68 SpO2: 95% Physical Exam Constitutional: She is well-developed, well-nourished, and in no distress. Cardiovascular: Normal rate, regular rhythm and normal heart sounds. Pulmonary/Chest: Effort normal and breath sounds normal. Psychiatric: Mood and affect normal. Assessment/Plan: 1. Dysuria - Urine culture today 2. Leukocytosis, unspecified type - VENIPUNC ARM DRAW - CBC today 3. Diverticulitis - f/u with GI as planned ROSE MARIE RAMIREZ NP documented in this encounter Plan of Treatment Not on file documented as of this encounter Procedures Procedure Name Priority Date/Time Associated Diagnosis Comments VENIPUNC ARM DRAW Routine 06/19/2019 2:21 PM CDT Leukocytosis, unspecified type documented in this encounter Visit Diagnoses Diagnosis Dysuria- Primary Leukocytosis, unspecified type Diverticulitis Diverticulitis of colon (without mention of hemorrhage) documented in this encounter
--- OUTSIDE RECORDS SUMMARY | 2024-11-04 23:03 | XMS_ITS | Encounter Summary ---
Author Organization [facility] Address [address] [place] [address]. [place] [address] [place] [address] Care Team Providers Care Resource Paraprofessional Name Role Phone Unavailable Primary Care Provider Unavailabl e Encounter Details Date Type Department Care Team (Latest Contact Info) Description 10/07/2017 4:25 PM UNIVERSAL BANKER - 10/07/2017 11:59 PM [facility] Hospital Encounter [facility] Diagnostic Imaging [address] [place], [place] [phone] Rose Marie Norton, JUAN JOSE [address] [place] [address] Discharge Disposition: Home or Self Care (Routine Discharge) Social History Tobacco Use Types Packs/Day Years Used Date Smoking Tobacco: Never Assessed Comments Unknown Sex and Gender Information Value Date Recorded Sex Assigned at Not on file Legal Sex Female 6:50 PM CDT Gender Identity Not on file Sexual Orientation Not on file documented as of this encounter Medications at Time of Discharge albuterol sulfate HFA (PROAIR HFA) 108 (90 Base) MCG/ACT inhaler Inhale 2 puffs into the lungs every 4 (four) hours as needed. 10/07/2017 12/18/2018 ibuprofen 800 MG tablet Take 1 tablet by mouth. 11/14/2015 12/18/2018 triamterene-hydro chlorothiazide 37.5-25 MG capsule Take 1 capsule by mouth daily. 07/03/2015 12/18/2018 documented as of this encounter Plan of Treatment Not on file documented as of this encounter Procedures Procedure Name Priority Date/Time Associated Diagnosis Comments XR CHEST PA+LAT Routine 10/07/2017 4:38 PM UNIVERSAL BANKER Acute bronchitis documented in this encounter Results * XR CHEST PA+LAT (10/07/2017 4:38 PM UNIVERSAL BANKER) Anatomical Region Laterality Modality Chest Radiographic Rosi ging 10/07/2017 4:51 PM UNIVERSAL BANKER Impressions 10/07/2017 4:54 PM UNIVERSAL BANKER =====IMPRESSION:===== Focal consolidation medial aspect right lower lobe. Possible infiltrate. Possible nodule. Possible summation artifact. Consider CT scan chest with contrast. Narrative 10/07/2017 4:54 PM UNIVERSAL BANKER Examination: Chest x-ray 2 view Exam date/time: 10/07/2017 4:32 PM Reason For Exam: ??ACUTE BRONCHITIS ? Cough and wheezing for 3 weeks. Comparison: Chest x-ray 02/23/2014. Technique: PA and lateral views of the chest were obtained. Findings: Heart size and pulmonary vessels are normal. Focal consolidation right lung base medially. Possible focal infiltrate or nodule. Lungs otherwise clear. No pleural effusion. Procedure Note Nishant Schultz MD - 10/07/2017 Examination: Chest x-ray 2 view Exam date/time: 10/07/2017 4:32 PM Reason For Exam: ACUTE BRONCHITIS Cough and wheezing for 3 weeks. Comparison: Chest x-ray 02/23/2014. Technique: PA and lateral views of the chest were obtained. Findings: Heart size and pulmonary vessels are normal. Focal consolidationright lung base medially. Possible focal infiltrate or nodule. Lungs otherwiseclear. No pleural effusion. =====IMPRESSION:===== Focal consolidation medial aspect right lower lobe. Possibleinfiltrate. Possible nodule. Possible summation artifact. Consider CT scan chestwith contrast. us Sage Gastelum MD GENERAL IMAGING Final Result documented in this encounter Visit Diagnoses Diagnosis Acute bronchitis documented in this encounter
--- OUTSIDE RECORDS SUMMARY | 2024-11-04 23:03 | XMS_ITS | Encounter Summary ---
Author Organization [facility] Address [facility] [facility] [place] [address] [place] [address] Care Team Providers Care Cupola Melting Supervisor Name Role Phone Unavailable Primary Care Provider Unavailabl e Reason for Referral * Surgical (Routine) - Closed Specialty Diagnoses / Procedures Referred By Veronica t Referred To Contact Bariatrics Diagnoses Class 3 severe obesity due to excess calories without serious comorbidity with body mass index (BMI) of 40.0 to 44.9 in adult ([facility]) Rose Marie Ramirez NP [address] [place] [address] Phone: tel: fax: [address] [phone] Phone: tel: Referral ID Status Reason Start Date Expiration Date V isits Requested Visits Authorized [id number] Closed Specialty Services 06/24/2020 07/25/2021 99 99 Reason for Visit * Reason Comments UTI Symptoms Here for possible UT I and yeast infection. Would also like CBC CMP Last COVID was Negative. Needs one more negative to return to work. Encounter Details Date Type Department Care Team (Late st Contact Info) Description 06/24/2020 4:00 PM CDT Office Visit [facility] Family and Sports Medicine - [place] [address] [place] [address] Rose Marie Ramirez CHEMISTRY TECHNICAL OFFICER [address] [place] [address] UTI Symptoms (Here for possible UTI and yeast infection. Would also like CBC CMP Last COVID was Negative. Needs one more negative to return to work. ) Social History Tobacco Use Types Packs/Day [...] Sign Reading Time Taken Comments Blood Pressure 134/78 06/24/2020 4:06 PM CDT Pulse 83 06/24/2020 4:06 PM CDT Temperature 36.6 ??C (97.8 ??F) 06/24/2020 4:06 PM CD T Respiratory Rate 18 06/24/2020 4:06 PM CDT Oxygen Saturation 97% 06/24/2020 4:06 PM CDT Inhaled Oxygen Concentration - - Weight 114.3 kg (252 lb) 06/24/2020 4:06 PM CDT Height 162.6 cm (5' 4 ) 06/24/2020 4:06 PM CDT Body Mass Index 43.26 06/24/2020 4:06 PM CDT documented in this encounter Functional [...] Notes * Rose Marie Ramirez NP - 06/24/2020 4:00 PM CDT Images from the original note were not included. [facility] [address], [address] [place] [address] OFFICE VISIT NOTE Encounter Date: 06/28/2020 Chief Complaint: Maria Del Carmen Ray is a 44-year-old female here for UTI Symptoms (Here for possible UTI and yeast infection. Would also like CBC CMP Last COVID was Negative. Needs one more negative to return to work. ) HPI Here with c/o urinary frequency and some dysuria for the last 4-5 days. She is also c/o some vaginal itching. She is requesting a return to work note as she was positive for COVID on 05/30/2020. Review of Systems Constitutional: Negative. HENT: Negative. Respiratory: Negative. Cardiovascular: Negative. Gastrointestinal: Negative. Genitourinary: Positive for dysuria and urgency. Negative for flank pain and hematuria. Patient Active Problem List Diagnosis ??? Backache [...] forcep performed by Kathy Bailey MD at [facility] ??? HYSTERECTOMY Family History Problem Relation Name [...] Last attempt to quit: 08/09/2010 Years since quittin.8 ??? Smokeless tobacco: Never Used Substance and [...] Outpatient Medications Medication Sig Dispense Refill ??? nitrofurantoin, macrocrystal-monohydrate, (MACROBID) 100 MG capsule Take 1 capsule (100 [...] Allergen Reactions ??? Amoxicillin Rash Objective: Vitals: 06/24/20 1606 BP: 134/78 Pulse: 83 Resp: 18 Temp: 97.8 ??F (36.6 ??C) SpO2: 97% Body mass index is 43.26 kg/m??. Physical Exam Constitutional: She is well-developed, well-nourished, and in no distress. Cardiovascular: Normal rate, regular rhythm and normal heart sounds. Pulmonary/Chest: Effort normal and breath sounds normal. Abdominal: Soft. Normal appearance and bowel sounds are normal. There is no tenderness. There is noCVA tenderness. Psychiatric: Mood and affect normal. Assessment/Plan: 1. Dysuria - nitrofurantoin, macrocrystal-monohydrate, (MACROBID) 100 MG capsule; Take 1 capsule (100 mg total) by mouth 2 (two) times daily for 10 days. Dispense: 20 capsule; Refill: 0 - CULTURE URINE; Future - URINALYSIS AUTO DIP 2. Catalina vaginitis - fluconazole (DIFLUCAN) 150 MG tablet; Take 1 tablet (150 mg total) by mouth once for 1 dose. Dispense: 1 tablet; Refill: 0 3. Class 3 severe obesity due to excess calories without serious comorbidity with body mass index (BMI) of 40.0 to 44.9 in adult ([facility]) - AMB REFERRAL TO BARIATRIC SURGERY ROSE MARIE RAMIREZ NP documented in this encounter Plan of Treatment Scheduled Referrals Name Type Priority Associated Diagnoses Orde r Schedule Ambulatory Referral to Bariatric Surgery Referral Routine Class 3 severe obesity due to excess calories without serious comorbidity with body mass index (BMI) of 40.0 to 44.9 in adult ([facility]) Ordered: 06/24/2020 documented as of this encounter Procedures Procedure Name Priority Date/Time Associated Diagnosis Comments URINALYSIS AUTO DIP Routine 06/24/2020 Dysuria documented in this encounter Results * CULTURE URINE (06/25/2020 8:44 AM CDT) SPEC DESCRIPTION URINE CLEAN CATCH 06/25/2020 5:57 PM CDT [facility] SPECIAL REQUESTS NO SPECIAL REQUEST 06/25/2020 5:57 PM CDT [facility] CULTURE RESULT NO GROWTH 2 DAYS 06/28/2020 9:28 AM CDT [facility] URINE SPECIMEN OBTAINED BY CLEAN CATCH PROCEDURE / Unknown 06/25/2020 8:44 AM CDT 06/25/2020 6:07 PM CDT us Rose Marie Ramirez NP MICROBIOLOGY - GENERAL ORDERABLE S Final Result [facility] [address] [place] [address], [place] [phone] * URINALYSIS AUTO DIP (06/24/2020) GLUCOSE (U) NEGATIVE NEGATIVE MG/DL [facility] [place] BILIRUBIN (U) NEGATIVE NEGATIVE [facility] [place] KETONES MG/DL (U) NEGATIVE NEGATIVE MG/DL [facility] [place] SPECIFIC GRAVITY (U) 1.025 1.001 - 1.[address] [facility] [place] BLOOD (U) TRACE (Non Hemolyzed, Intact) NEGATIVE [facility] [place] U PH 5.5 5.0 - 9.[address] [place] PROTEIN (U) NEGATIVE NEGATIVE mg/dL [facility] [place] UROBILINOGEN 0.2 0.2 - 1.0 EU/dL = mg/dL [facility] [place] NITRITES NEGATIVE NEGATIVE MG/DL [facility] [place] LEUKOCYTES (U) NEGATIVE NEGATIVE [facility] [place] URINE SPECIMEN OBTAINED BY CLEAN CATCH PROCEDURE / Unknown 06/24/2020 us Rose Marie M Ramirez CHEMISTRY TECHNICAL OFFICER URINE ORDERABLES Final Result [facility] [place] [address] [place] [address], [place] [phone] documented in this encounter Visit Diagnoses Diagnosis Dysuria- Primary [place] vaginitis Candidiasis of vulva and vagina Class 3 severe obesity due to excess calories without serious comorbidity with body mass index (BMI) of 40.0 to 44.9 in adult ([facility]) documented in this encounter
--- OUTSIDE RECORDS SUMMARY | 2024-11-04 23:03 | XMS_ITS | Encounter Summary ---
Author Organization [facility] Address [address] [place] [address]. [place] [address] [place] [address] Care Team Providers Care Outside Sales Account Executive Name Role Phone Unavailable Primary Care Provider Unavailabl e Reason for Visit * Reason Comments Wrist Injury Encounter Details Date Type Department Care Team (Latest Contact Info) Description 05/12/2019 4:03 PM CDT - 05/12/2019 5:[address] PM [address] [facility] En[facility] [address] [place] [address] Jesus Martinez, PAPedroC Wrist Injury Discharge Disposition: Home or Self Care (Routine [...] Sign Reading Time Taken Comments Blood Pressure 124/76 05/12/2019 4:07 PM CDT Pulse 63 05/12/2019 4:07 PM CDT Temperature 36.7 ??C (98 ??F) 05/12/2019 4:07 PM CDT Respiratory Rate 16 05/12/2019 4:07 PM CDT Oxygen Saturation 100% 05/12/2019 4:07 PM CDT Inhaled Oxygen Concentration - - Weight 108.9 kg (240 lb) 05/12/2019 4:07 PM CDT Height 162.6 cm (5' 4 ) 05/12/2019 4:07 PM CDT Body Mass Index 41.2 05/12/2019 4:07 PM CDT documented in this encounter Discharge Instructions * Attachments The following attachments cannot be sent through Care Everywhere. * Wrist Sprain Discharge Instructions (Salvadorean) documented in this encounter Medications at Time of Discharge azithromycin (ZITHROMAX) 250 MG tabletIndications :Bronchitis Take 2 tablets (500 mg total) by mouth daily for 1 day, THEN 1 tablet (250 mg total) daily for 4 days. 6 tablet 05/07/2019 05/12/2019 documented as of this encounter ED Notes * Jesus Martinez PA-C - 05/12/2019 4:51 PM CDT [place] Note History of Present Illness CC: Wrist Injury , HPI:Maria Del Carmen Ray is a 43-year-old female who presents with 24-hour onset of left wrist pain status post mechanical fall. Patient states that she was walking down her steps when she slipped landing on her bottom and slid down several stairs. Patient states that she put her left hand out to stopherself and it got jammed into 1 of the steps. States since that time she has had persistent left wrist pain on the ulnar side of her wrist worse with direct touch, flexion extension of the wrist. Patient denies distal numbness weakness loss of sensation or other joint pain or injury. ? Relevant Medical History Past Medical History: Past Medical History: Diagnosis Date ??? Onychomycosis ??? Scabies ??? Tinea corporis ??? Tinea cruris Negative unless noted above Past Surgical History: Past Surgical History: Procedure Laterality Date ??? APPENDECTOMY ??? HYSTERECTOMY Negative unless noted above Med List: No current facility-administered medications on file prior to encounter. Current Outpatient Medications on File Prior to Encounter Medication Sig ??? azithromycin (ZITHROMAX) 250 MG tablet Take 2 tablets (500 mg total) by mouth daily for 1 day, THEN 1 tablet (250 mg total) daily for 4 days. Med list reviewed and attached to chart Allergies: Review of patient's allergies indicates: Amoxicillin Immunizations: There is no immunization history on file for this patient. Not applicable unless noted above Family Hx: Family History Problem Relation Name Age of Onset ??? Hypertension Father ??? Stroke Father ??? None Mother Negative unless noted above Social Hx: Social History Socioeconomic History ??? Marital status: [...] file Gets together: Not on file Attends adventist service: Not on file Active member of [...] Social History Narrative ??? Not on file History source: Patient, nursing notes, and EMS notes when applicable, unless noted above Hx/PE/ROS limited by: Physical Exam Constitutional: No fevers or chills Eye/ENT/Mouth: NA Cardiovascular: NA Respiratory: NA Gastrointestinal: NA Genitourinary: NA Skin: No acute rashes or edema Musculoskeletal: hand pain as noted in hpi, no other acute joint swelling or pain Neurological: NA Psychiatric: NA ? Physical Exam Constitutional: well developed, well nourished Eye: normal conjunctiva, pupils equal and reactive ENT/Mouth: NA Neck: Cspine- no midline ttp, full range of motion, no immobilization CV: regular rate and rhythm, no murmurs/rubs or gallops, Chest: no clavicle or rib ttp Respiratory: clear to auscultation bilaterally no wheezes/rhonchi/crackles GI: NA : deferred Skin: dry, no rashes noted, no lacerations Musculoskeletal/Back: no ttp x 4 ext, back nontender T and L spine Extremities: No Lower ext ttp bilat -Right upper extremity: no shoulder or elbow ttp, wrist nontender, M/R/U motor and sensory wnl. - Left upper extremity: no shoulder or elbow ttp, minimal tenderness to palpation to the ulnar aspect of the distal wrist. There is no obvious erythema or edema. Patient demonstrates slow but full range of motion patient has normal strength, distal PMS and sensation/circulation/cap refill/two-point discrimination intact. Radial/ulnar pulses 2+ bilateral Neurological: CN II-XII no deficits, upper and lower extremity strength 5/5 bilateral Psych: Pt is alert and oriented x3 w good recall and normal affect Studies and Interpretation Vitals: Filed Vitals: 05/12/19 1607 BP: 124/76 Pulse: 63 Resp: 16 Temp: 98 ??F (36.7 ??C) TempSrc: Oral SpO2: 100% Weight: 108.9 kg (240 lb) Height: 5' 4 (1.626 m) Vitals reviewed: WNL Pulse Ox Interpretation: Saturation: 100 Oxygen Delivery: Room air Interpretation: No hypoxia at this time. Rhythm strip interpretation: Normal sinus rhythm, no arrhythmia noted. Ventricular rate (bpm):63 ECG Note: No results found for this visit on 05/12/19. Pertinent Labs: No results found for this visit on 05/12/19. Images: XR WRIST LT MIN 3V Final Result by User, [id number] (05/12 0016) EXAMINATION: X-ray left wrist, 4 views HISTORY: Fall. Left wrist pain. The pain is in the medial aspect of the wrist. COMPARISON: None. TECHNIQUE: Multiple views of the left wrist. FINDINGS: No evidence of acute fracture or dislocation. Mild soft tissue swelling adjacent to the medial aspect of the wrist. IMPRESSION: No acute osseous abnormalities identified. ? All imaging and laboratory results independently reviewed by Jesus Sturdy PA-C. Medical Decision Making and ED Course Differential Dx: DDx includes: fracture, dislocation, strain, sprain, ligament injury, Management: Management options include but not limited to : IV access and IV medications given. Case discussed with ED attending physician/GILDARDO: Data reviewed: All current, pertinent and timely studies (laboratory, imaging, and procedures) wereordered and results reviewed by Jesus Martinez PA-C unless otherwise noted. Triage notes and available nursing notes reviewed. Previous medical record reviewed when available. Repeat vital signs reviewed. See sedation note and procedure note when applicable. Splint note: Velcro wrist splint Plan:, labs, imaging, symptom control, consult Medications administered in triage: Patient declined Toradol ED COURSE MDM:The patient presents to the emergency department with a 4-hour onset left wrist pain status post mechanical fall -the patient is hemodynamically stable, with normal vitals without fever or tachycardia. -on physical exam the patient is found to have Left upper extremity: no shoulder or elbow ttp, minimal tenderness to palpation to the ulnar aspect of the distal wrist. There is no obvious erythema oredema. Patient demonstrates slow but full range of motion patient has normal strength, distal PMS and sensation/circulation/cap refill/two-point discrimination intact. -Imaging shows no acute osseous abnormality -given the patient's age, presentation, benign physical exam, negative ER work- up, lack of concerning neurological symptoms it is reasonable to discharge the patient home with a Velcro wrist splint, symptomatic treatment with ice, elevation, ibuprofen, follow-up to orthopedic doctor as needed. I have spent considerable time counseling the patient on the nature of their pain/symptoms, their results, what to expect and how to manage their symptoms. I have also given my typical strict return precautions and let them know that are always welcome to call or return to the ED if their symptoms are not improving or they develop new or progressive symptoms. I ensured understanding of the instructions utilizing teach-back. All questions and concerns presented at the time of discharge were answered. ? Dispo:home Clinical Impression: 1. Wrist strain 2. Fall Note: This note was created with the aid of dictation software, thus there may be some word substitutions or errors. Jesus Martinez PA-C 05/12/19 [id number] Cosigned by Alexander Houston MD at 05/12/2019 7:06 PM CDT * Chloe Alvarado RN - 05/12/2019 4:05 PM CDT AMB TO , STATES SLIPPED ON STEPS YESTERDAY SONYA, ABOUT 8PM, INJURING LEFT WRIST. LIMITED ROM, PAINTO ULNAR ASPECT, DISTAL NEUROVASCULAR STATUS INTACT. NO PAIN MEDS TAKEN PPS 04/16 documented in this encounter Plan of Treatment Not on file documented as of this encounter Procedures Procedure Name Priority Date/Time Associated Diagnosis Comments XR WRIST LT MIN 3V STAT 05/12/2019 4: 21 PM CDT documented in this encounter Results * XR WRIST LT MIN 3V (05/12/2019 4:21 PM CDT) Anatomical Region Laterality Modality Wrist Radiographic Rosi ging 05/12/2019 4:32 PM CDT Impressions 05/12/2019 4:37 PM CDT IMPRESSION: No acute osseous abnormalities identified. Narrative 05/12/2019 4:37 PM CDT EXAMINATION: X-ray left wrist, 4 views HISTORY: Fall. Left wrist pain. The pain is in the medial aspect of the wrist. COMPARISON: None. TECHNIQUE: Multiple views of the left wrist. FINDINGS: No evidence of acute fracture or dislocation. Mild soft tissue swelling adjacent to the medial aspect of the wrist. ?? Procedure Note Wilner Hopkins DO - 05/12/2019 EXAMINATION: X-ray left wrist, 4 views HISTORY: Fall. Left wrist pain. The pain is in the medial aspect of the wrist. COMPARISON: None. TECHNIQUE: Multiple views of the left wrist. FINDINGS: No evidence of acute fracture or dislocation. Mild soft tissue swelling adjacent to the medial aspect of the wrist. IMPRESSION: No acute osseous abnormalities identified. us Jesus Martinez PA-C GENERAL IMAGING Final Resul t documented in this encounter Visit Diagnoses Diagnosis Sprain of left wrist, initial encounter- Primary documented in this encounter
--- OUTSIDE RECORDS SUMMARY | 2024-11-04 23:03 | XMS_ITS | Encounter Summary ---
Author Organization [facility] Address [address] [place] [address]. [place], [place] [address] [place] [id number] Care Team Providers Care It Support Analyst Name Role Phone Unavailable Primary Care Provider Unavailabl e Encounter Details Date Type Department Care Team (Latest Contact Info) Description 10/20/2017 Abstract [facility] Social History Tobacco Use [...]
--- OUTSIDE RECORDS SUMMARY | 2024-11-04 23:03 | XMS_ITS | Encounter Summary ---
Author Organization [facility] Address [facility] [place] [address] [place] [address] Care Team Providers Care Steward/Stewardess Room Name Role Phone Unavailable Primary Care Provider Unavailabl e Reason for Referral * Imaging (Emergency) - Closed Specialty Diagnoses / Procedures Referred By Veronica bonner Referred To Contact RADIOLOGY Procedures CT ABD+PEL W IV CON ONLY Heather Kirkpatrick FNP-BC Referral ID Status Reason Start Date Expiration Date Visits Re quested Visits Authorized [id number] Closed 05/31/2019 07/01/2020 1 1 Reason for Visit * Reason Comments Abdominal Pain Urinary Symptoms * Auth/Cert Specialty Diagnoses / Procedures Referred By Veronica bonner Referred To Contact Diagnoses Diverticulitis of large intestine with abscess without bleeding Leukocytosis, unspecified type Diverticulitis Procedures INPT Referral ID Status Reason Start Date Expiration Date Visits Re quested Visits Authorized [id number] 1 1 Encounter Details Date Type Department Care Team (Late st Contact Info) Description 05/31/2019 10:46 PM CDT - 06/04/2019 10:00 AM T [facility] [address] [place], [place] [id number] Beverly Ferro PA-C [address] [id number] Milo Reynaga MD [address] [place] [address] [phone] (Work) Rhonda Jang APRN [address] [place] [address] [phone] (Work) Ashlee Casillas PA-C [address] [place] [address] [phone] (Work) Abdominal Pain; Urinary Symptoms Discharge Disposition: Home or Self [...] Sign Reading Time Taken Comments Blood Pressure 125/82 06/04/2019 5:39 AM CDT Pulse 62 06/04/2019 5:39 AM CDT Temperature 36.7 ??C (98.1 ??F) 06/04/2019 5:39 AM CD T Respiratory Rate 18 06/04/2019 5:39 AM CDT Oxygen Saturation 97% 06/04/2019 5:39 AM CDT Inhaled Oxygen Concentration - - Weight 114 kg (251 lb 5.2 oz) 06/02/2019 5:27 AM CDT Height 162.6 cm (5' 4 ) 05/31/2019 10:39 PM CDT Body Mass Index 43.14 05/31/2019 10:39 PM CDT documented in this encounter Functional Status * Question Answer Date of Assessment Author Status Do you have serious difficulty walking or climbing stairs? No 06/01/2019 2:55 AM CDT Teja Segundo RN Activ e * Question Answer Date of Assessment Author Status Do you have difficulty dressing or bathing? No 06/01/2019 2:55 AM Teja Adams RN A ctive Because of a physical, mental, or emotional condition, do you have difficulty doing errands alone such as visiting a doctor's office or shopping? No 06/01/2019 2:55 AM Teja Adams RN Active * RETIRED Are you deaf or do [...] as of this encounter Mental Status * Question Answer Entry Date Author Status Because of a physical, mental, or emotional condition, do you have serious difficulty concentrating, remembering, or making decisions? No 06/01/2019 2:55 AM Teja Adams RN A ctive * Because of a physical, mental, or emotional condition, do you have serious difficulty concentrating, remembering, or making decisions? Answer Entry Date Author Status No 06/01/2019 2:55 AM Teja Adams RN Active documented in this encounter Discharge Summaries * Rhonda Jang, CLINIC DIRECTOR - 06/04/2019 8:44 AM CDT Hospitalist Discharge Summary Patient ID: Maria Del Carmen Ray. female. 1975. Admit date: 05/31/2019 10:46 PM Discharge date and time: 06/14/19 Admitting Physician: Milo Reynaga MD Attending Physician: No att. providers found Primary Care Physician: ROSE MARIE RAMIREZ NP Discharge Physician: RHONDA JANG APRN Hospital Diagnosis: Diverticulitis Admission Condition: good Discharged Condition: Stable Code Status: Prior Indication for Admission: Chief Complaint Patient presents with ??? Abdominal Pain ??? Urinary Symptoms Readmission/Mortality Score at discharge: Low 0-28, Medium 29-58, High >59 LACE+ Score Readmission Score: 53 Male Patient: Urgent Admission: 15 Discharge Institution: Length of Stay: 5 Alternative Level of Care Status: 0 ED Visits in Previous 6 Months: 0 Elective Admission in Previous Year: 6 Comorbidity Score (by age & number of urgent admissions): 27 Hospital Course: Maria Del Carmen Ray is a 43-year-old female With no history of chronic medical problems who presented to our ER complaining of bilateral lower abdominal pain of 4 days duration that has been constant, burning crampy in nature, progressively getting worse, 9 out of 10 in severity, patient denies any nausea or vomiting, no change in bowel movement, no fever but patient reported chills, patientstated that she had urinary frequency and urgency yesterday, in the ER patient was evaluated white count was 13, CT scan of the abdomen and pelvis showed diverticulitis with finding that may represent developing abscess around contained ruptured diverticulum, patient was given IV Levaquin and IV Fla gyl, surgery were consulted and patient was admitted for further evaluation treatment. (per admitting provider) ??Acute Diverticulitis: CT scan showed finding concerning for developing abscess around contained ruptured diverticulum Surgery consulted - appreciate recommendations Tolerated CLD - advancing to regular diet per Surgery IV fluids, pain control, antiemetics Per surgery, will need outpatient colonoscopy Treatment with Levaquin and Flagyl to continue at discharge ?? Microscopic Hematuria U/A + RBC Recommend U/A in 4-6 weeks as an outpatient for follow up Morbid Obesity BMI 43.14 Encouraged lifestyle changes Findings that require further workup: Repeat UA in 4-6 weeks Outpatient colonoscopy Consults: general surgery Significant Diagnostic Studies: No results found for this or any previous visit (from the past 24 hour(s)). Radiology Reports : CT ABD+PEL W IV CON ONLY [[id number]] Collected: 06/01/1947 Updated: 06/01/19103 Narrative: ?? EXAMINATION: CT Abdomen and Pelvis with contrast ? EXAM DATE/TIME: 06/01/2019 12:31 AM ?? REASON FOR EXAM: ??Abdominal pain, unspecified ?[id number] to the ed from home reporting lower abdominal pain and pain with urination. 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 Pt also reporting chills. ?? Pt. reports that pain has been increasing for 3 days. ??Slightly elevated WBC=13.1, small occult blood in U/A. ??Hx. of appendectomy and hysterectomy. ? COMPARISON: No previous ?? TECHNIQUE: Computed tomography of the abdomen and pelvis was obtained after administration of intravenous contrast. Patient received 120 mL Isovue-370 into indwelling intravenous access without adverse contrast reaction reported. ??A dose lowering technique was used for this procedure, which may include, but is not limited to, dose reduction technique, automated exposure control, iterative reconstruction, ALARA (As Low As Reasonably Achievable), or Image Gently techniques. ? FINDINGS: Included lung bases: Clear of infiltrate or effusion. ABDOMEN: Liver: Unremarkable Spleen: Unremarkable Adrenal glands: Unremarkable right adrenal gland. 5 mm enlargement apex left adrenal gland probably adenoma. Pancreas: Unremarkable Gallbladder: Contracted. Kidneys: Bilateral symmetric nephrograms.. No renal lithiasis or hydronephrosis or evidence of obstructive uropathy. No contrast enhancing renal mass or cystic renal lesion. Subcentimeter left para-aortic infrarenal lymph nodes. May be reactive in etiology. PELVIS: Small bowel colon are unremarkable. Normal terminal ileum. Appendix surgically absent. Large bowel: The cecum hepatic flexure transverse colon are redundant. Widespread extensive diverticulosis with a long segment of active diverticulitis in the proximal and mid sigmoid colon. Large rounded area of perisigmoid inflammatory stranding fat induration wall thickening luminal narrowing irregularity loss of haustrations. The inflammatory stranding is circumferentially marginated around one particularly large air-filled diverticulum and there are tiny droplet of air contained within this area moderately severe inflammation consistent with developing abscess possible contained ruptured diverticulum. The large pocket of free air. There is a tiny amount of free fluid in the posterior cul-de-sac. This does not result in bowel obstruction. Urinary bladder: Thickened circumferential shaggy lr surrounded by fat induration pericystic linear stranding most consistent with cystitis. No stone in the bladder. Uterus and ovaries: Surgically absent consistent with given history Bone window imaging: Unremarkable. ?? Impression: ?? IMPRESSION: 1. Long segment of active diverticulitis in the proximal and mid sigmoid colon with capsulated area of inflammatory stranding around large diverticulum and tiny droplet of air may represent developing abscess around contained ruptured diverticulum 2. Appearance of the bladder suggestive of cystitis 3. No bowel obstruction 4. No renal lithiasis or hydronephrosis or evidence of obstructive uropathy. Discharge Exam: Filed Vitals: 06/03/19 0558 06/03/19 1300 06/03/19 2017 06/04/19 0539 BP: 130/75 118/60 130/81 125/82 Pulse: 56 70 71 62 Resp: 18 Temp: 98.2 ??F (36.8 ??C) 97.8 ??F (36.6 ??C) 98.1 ??F (36.7 ??C) 98.1 ??F (36.7 ??C) TempSrc: Oral Oral Oral Oral SpO2: 100% 100% 98% 97% Weight: Height: Physical Exam Physical Exam: -GENERAL: No acute distress, Well nourished, Well developed -HEAD: Normocephalic, Atraumatic -EYES: Extraocular movements intact -LUNGS: Effort normal, Clear to auscultation bilaterally, No wheezes, No crackles, No ronchi -CVS: Regular rate and rhythm, S1 and S2 normal -ABDOMEN: Soft, Non distended, + BS, + lower abdominal tenderness -EXT: No lower extremity edema -NEURO: Awake, alert, oriented, No gross neuro deficits -SKIN: No significant rashes ?? Discharge Medications: Medication List START taking these medications hydrocodone-acetaminophen 5-325 MG tablet Commonly known as: NORCO Take 1 tablet by mouth every 6 (six) hours as needed. ASK your doctor about these medications levofloxacin 500 MG tablet Commonly known as: LEVAQUIN Take 1 tablet (500 mg total) by mouth daily for 7 days. Ask about: Should I take this medication? metroNIDAZOLE 500 MG tablet Commonly known as: FLAGYL Take 1 tablet (500 mg total) by mouth 3 (three) times daily for 7 days. Ask about: Should I take this medication? Where to Get Your Medications These medications were sent to [id number] - [place], [place] - [address] [address] [facility] [id number] ?? levofloxacin 500 MG tablet ?? metroNIDAZOLE 500 MG tablet You can get these medications from any pharmacy Bring a paper prescription for each of these medications ?? hydrocodone-acetaminophen 5-325 MG tablet Disposition: Home with self care Time Spent on Discharge: 45minutes Signed: RHONDA JANG APRN Cosigned by Markell Beyer MD at 06/14/2019 11:42 PM CDT documented in this encounter Discharge Instructions * Discharge Instructions* Rhonda Jang APRN - 06/04/2019 8:46 AM CDT Images from the original note were not included. Patient Education Diverticulitis The Basics Written by the doctors and editors at [facility] What is diverticulitis???--??Diverticulitis is a disorder that can cause belly pain, fever, and problems with bowel movements. The food we eat travels from the stomach through a long tube called the intestine. The last part ofthat tube is the colon (figure 1). The colon sometimes has small pouches in its lr. These pouches are called diverticula. Many people who have these pouches have no symptoms. Diverticulitis happens when these pouches develop a small tear also known as a microperforation, which then become infected and cause symptoms. What are the symptoms of diverticulitis???--??The most common symptom of diverticulitis is pain, which is usually in the lower part of the belly. Other symptoms can include: ?? Fever ?? Constipation ?? Diarrhea ?? Nausea and vomiting Is there a test for diverticulitis???--??Yes. There are a few tests your doctor or nurse can do to find out if you have diverticulitis. But tests are not always needed. Your doctor or nurse might be able to diagnose you without them. If you do have a test, you might have a: ?? CT scan - A CT scan is a kind of imaging test. Imaging tests create pictures of the inside of your body. ?? Abdominal ultrasound - This test uses sound waves to create pictures of your intestines. How is diverticulitis treated???--??That depends on how bad your symptoms are. If you have mild symptoms, your doctor or nurse will put you on antibiotics and might put you on a clear liquid diet fora short time. That might be all the treatment you need. But if you have severe symptoms, or if you get a fever, you might need to stay in the hospital. There, you can get fluids and antibiotics through a thin tube that goes into your vein, called an IV. That way you can stop eating and drinking until you get better. If you have a serious infection, the doctor might put a tube into your belly to drain the infection. In very bad cases, people need surgery to remove the part of the colon that is affected. A few months after your infection has been treated, your doctor might recommend that you have a procedure called a colonoscopy (figure 2). During a colonoscopy, the doctor can look directly inside your colon to get an idea of the number of diverticula in your colon and to find out where they are. At the same time, he or she can check for signs of cancer. Should I change my diet if I have had diverticulitis???--??If you have had diverticulitis, it's a good idea to eat a lot of fiber. Good sources of fiber include fruits, oats, beans, peas, and green leafy vegetables. If you do not already eat fiber-rich foods, wait until after your symptoms get better to start. You do not need to avoid seeds, nuts, popcorn, or other similar foods. All topics are updated as new evidence becomes available and our peer review process is complete. This topic retrieved from [employer] on: Nov 14, 2018. Topic 73031 Version 8.0 Release: 26.5.5 - C27.6 ?2019??[employer]. and/or its affiliates.??All rights reserved. figure 1: Digestive system This drawing shows the organs in the body that process food. Together these organs are called the digestive system, or digestive tract. As food travels through this system, the body absorbs nutrients and water. Graphic 24440 Version 4.0 figure 2: Colonoscopy During a colonoscopy, you lie on your side and the doctor or nurse puts a thin tube with a camera into your anus (from behind). Then the doctor or nurse advances the tube into the rectum and colon. The camera sends pictures from inside your colon to a television screen. Graphic 85229 Version 5.0 Consumer Information Use and Disclaimer This information is not specific medical advice and does not replace information you receive from your health care provider. This is only a brief summary of general information. It does NOT include all information about conditions, illnesses, injuries, tests, procedures, treatments, therapies, discharge instructions or life-style choices that may apply to you. You must talk with your health care provider for complete information about your health and treatment options. This information should not be used to decide whether or not to accept your health care provider's advice, instructions or recommendations. Only your health care provider has the knowledge and training to provide advice that is right for you.The use of [employer] content is governed by the [employer] Terms of Use. ??2019 [employer]. All rights reserved. Copyright ?2019??[employer]. and/or its affiliates.??All rights reserved. * Attachments The following attachments cannot be sent through Care Everywhere. * Metronidazole (Systemic), ADULT (Lebanese) * Levofloxacin (Systemic), ADULT (Lebanese) documented in this encounter Medications at Time of Discharge hydrocodone-aceta minophen 5-325 MG tablet Take 1 tablet by mouth every 6 (six) hours as needed. 6 tablet 06/04/2019 06/19/2019 levofloxacin (LEVAQUIN) 500 MG tablet Take 1 tablet (500 mg total) by mouth daily for 7 days. 7 tablet 06/05/2019 06/12/2019 metroNIDAZOLE (FLAGYL) 500 MG tablet Take 1 tablet (500 mg total) by mouth 3 (three) times daily for 7 days. 21 tablet 06/04/2019 06/11/2019 documented as of this encounter Progress Notes * Chuy Bess MD - 06/04/2019 8:36 AM CDT Maria Del Carmen Ray is an 43-year-old female. Date of Service: 06/04/2019 SUBJECTIVE: Denies pain Eating breakfast without issues OBJECTIVE: Blood pressure 125/82, pulse 62, temperature 98.1 ??F (36.7 ??C), temperature source Oral, resp. rate 18, height 5' 4 (1.626 m), weight 114 kg (251 lb 5.2 oz), SpO2 97 %. Physical Exam Constitutional: No distress. Pulmonary/Chest: Effort normal. Abdominal: Soft. She exhibits no distension. There is no tenderness. There is no rebound and no guarding. Labs: Recent Labs Lab 05/31/19 2251 06/02/19 0807 06/03/19 0517 06/04/19 0451 WBC 13.1* 11.4* 7.1 8.0 HGB 13.0 13.6 12.3 12.9 MCV 90.6 90.5 89.6 88.5 PLT 281 275 247 270 INR -- 1.1 -- -- Recent Labs Lab 06/02/19 0807 06/03/19 0517 06/04/19 0451 NA 140 140 140 K 3.9 4.1 3.9 CL 111* 113* 110* CO2 23.3 23.5 24.4 BUN 10 8 10 CR 0.86 0.81 0.95 Recent Labs Lab 05/31/19 2251 AST 15 ALT 24 TBIL 0.2 ALB 3.1* Rads: IMPRESSION: Acute diverticulitis. Clinically resolved PLAN: Will need interval colonoscopy. She would like to see Dr. Bailey for this. Have her follow up with Dr. Bailey in 6 weeks. CHUY BESS MD 06/04/2019 * Ashlee Casillas PA-C - 06/03/2019 11:29 AM CDT Hospitalist Daily Progress Note Subjective Ms. Ray was seen and examined at bedside this morning. She is overall feeling better. She tolerated her clear liquid diet. She had one episode of emesis last evening after eating jello. She denies any further nausea. Her abdomen is quill machine tender, however she is improving. Objective Filed Vitals: 06/02/19 0527 06/02/19 1700 06/02/19 1932 06/03/19 0558 BP: 135/65 120/86 147/87 130/75 Pulse: 66 63 56 Resp: 18 20 20 20 Temp: 98.1 ??F (36.7 ??C) 98.6 ??F (37 ??C) 99 ??F (37.2 ??C) 98.2 ??F (36.8 ??C) TempSrc: Oral Oral Oral Oral SpO2: 97% 97% 99% 100% Weight: 114 kg (251 lb 5.2 oz) Height: Intake/Output 24H Total: Intake/Output Summary (Last 24 hours) at 06/03/2019 1130 Last data filed at 06/03/2019 0624 Gross per 24 hour Intake 2600 ml Output -- Net 2600 ml Physical Exam: -GENERAL: No acute distress, Well nourished, Well developed -HEAD: Normocephalic, Atraumatic -EYES: Extraocular movements intact -LUNGS: Effort normal, Clear to auscultation bilaterally, No wheezes, No crackles, No ronchi -CVS: Regular rate and rhythm, S1 and S2 normal -ABDOMEN: Soft, Non distended, + BS, + lower abdominal tenderness -EXT: No lower extremity edema -NEURO: Awake, alert, oriented, No gross neuro deficits -SKIN: No significant rashes Medications ??? famotidine 20 mg Intravenous 2 times per day Or ??? famotidine 20 mg Oral 2 times per day ??? heparin (porcine) 5,000 Units Subcutaneous 2 times per day ??? levofloxacin 500 mg Intravenous Q24H ??? metroNIDAZOLE 500 mg Intravenous Q8H acetaminophen, hydrocodone-acetaminophen, morphine, ondansetron Labs, Imaging, Other Studies Recent Labs Lab 05/31/19 2251 06/02/19 0807 06/03/19 0517 WBC 13.1* 11.4* 7.1 RBC 4.56 4.64 4.22 HGB 13.0 13.6 12.3 HCT 41.3 42.0 37.8* MCV 90.6 90.5 89.6 MCH 28.5 29.3 29.1 MCHC 31.5* 32.4 32.5 PLT 281 275 247 RDW 14.1 13.8 13.5 MPV 10.2 10.1 9.7 PERNEU 69.2 74.9 61.7 PERLYM 24.0 20.2 31.3 PERMON 5.1 3.7 5.5 LYMC 3.13 2.31 2.21 MONOC 0.66 0.42 0.39 EOSC 0.12 0.06 0.06 BASOC 0.07 0.05 0.03 DTYPE AUTOMATED DIFFERENTIAL AUTOMATED DIFFERENTIAL AUTOMATED DIFFERENTIAL Recent Labs Lab 05/31/19 2251 06/02/19 0807 06/03/19 0517 NA 143 140 140 K 3.8 3.9 4.1 CL 111* 111* 113* CO2 27.3 23.3 23.5 AGAP 4.7* 5.7 3.5* BUN 19* 10 8 CR 1.04* 0.86 0.81 BUNCREATININ 18.3 11.6 9.8 GFRNON 66* 83* 90* GFR 77* >90 >90 GLU 91 77 80 CA 8.5 8.3* 8.1* TP 6.6 -- -- ALB 3.1* -- -- TBIL 0.2 -- -- ALKP 97 -- -- AST 15 -- -- ALT 24 -- -- Recent Labs Lab 06/02/19 0807 INR 1.1 Recent Labs Lab 06/01/19 [address] Abdomen/Pelvis (06/01/19) IMPRESSION: 1. Long segment of active diverticulitis in the proximal and mid sigmoid colon with capsulated area of inflammatory stranding around large diverticulum and tiny droplet of air may represent developing abscess around contained ruptured diverticulum 2. Appearance of the bladder suggestiveof cystitis 3. No bowel obstruction 4. No renal lithiasis or hydronephrosis or evidence of obstructive uropathy. Assessment & Plan Acute Diverticulitis: CT scan showed finding concerning for developing abscess around contained ruptured diverticulum Surgery consulted - appreciate recommendations Tolerated CLD - advancing to regular diet per Surgery IV fluids, pain control, antiemetics IV Levaquin/Flagyl Per surgery, will need outpatient colonoscopy Disposition: Continue IV antibiotics and monitor with advancement in diet. Likely discharge in am per surgery. Microscopic Hematuria U/A + RBC Recommend U/A in 4-6 weeks as an outpatient for follow up Morbid Obesity BMI 43.14 Encouraged lifestyle changes DVT Prophylaxis with Heparin SQ. Ashlee Casillas PA-C Cosigned by Markell Beyer MD at 06/03/2019 4:55 PM CDT * Ita Hawk MD - 06/03/2019 9:41 AM CDT Surgery Progress Note Patient: Maria Del Carmen Ray Date: 06/03/2019 female, 43-year-old Admit Date: 05/31/2019 Attending: Ashlee Casillas PA-C CODE STATUS: Full Code Subjective: Feels better less pain watson clears, passing flatus No BM Vital 24 Hour Range Most Recent Value Temperature Temp Min: 98.2 ??F (36.8 ??C) Max: 99 ??F (37.2 ??C) 98.2 ??F (36.8 ??C) Pulse Pulse Min: 56 Max: 63 56 Respiratory Resp Min: 20 Max: 20 20 Blood Pressure BP Min: 120/86 Max: 147/87 130/75 Pulse Oximetry SpO2 Min: 97 % Max: 100 % 100 % O2 No Data Recorded Physical Exam: abd soft min tenderness Labs/Imaging: Recent Labs Lab 05/31/19 2251 06/02/19 0807 06/03/19 0517 WBC 13.1* 11.4* 7.1 RBC 4.56 4.64 4.22 HGB 13.0 13.6 12.3 HCT 41.3 42.0 37.8* NA 143 140 140 K 3.8 3.9 4.1 CL 111* 111* 113* CO2 27.3 23.3 23.5 AGAP 4.7* 5.7 3.5* BUN 19* 10 8 CR 1.04* 0.86 0.81 BUNCREATININ 18.3 11.6 9.8 GFRNON 66* 83* 90* GFR 77* >90 >90 GLU 91 77 80 CA 8.5 8.3* 8.1* TP 6.6 -- -- ALB 3.1* -- -- TBIL 0.2 -- -- ALKP 97 -- -- AST 15 -- -- ALT 24 -- -- LIPASE 81 -- -- Pertinent images and labs reviewed WBC normal Impression: Diverticulitis, clinically improving Plan: Will advance diet Cont IV antibiotics Probable d/c int he am on oral antibiotics Will need out-pt colonoscopy ITA HAWK MD * Ita Hawk MD - 06/02/2019 11:23 AM CDT Surgery Progress Note Patient: Maria Del Carmen Ray Date: 06/02/2019 female, 43-year-old Admit Date: 05/31/2019 Attending: Ashlee Casillas PA-C CODE STATUS: Full Code Subjective: Feels better, less pain Passing some flatus Vital 24 Hour Range Most Recent Value Temperature Temp Min: 98 ??F (36.7 ??C) Max: 98.6 ??F (37 ??C) 98.1 ??F (36.7 ??C) Pulse Pulse Min: 58 Max: 69 66 Respiratory Resp Min: 18 Max: 18 18 Blood Pressure BP Min: 135/65 Max: 141/78 135/65 Pulse Oximetry SpO2 Min: 97 % Max: 98 % 97 % O2 No Data Recorded Physical Exam: abd soft less tender no guarding no peritoneal sings Labs/Imaging: Recent Labs Lab 05/31/19 2251 06/02/19 0807 WBC 13.1* 11.4* RBC 4.56 4.64 HGB 13.0 13.6 HCT 41.3 42.0 NA 143 140 K 3.8 3.9 CL 111* 111* CO2 27.3 23.3 AGAP 4.7* 5.7 BUN 19* 10 CR 1.04* 0.86 BUNCREATININ 18.3 11.6 GFRNON 66* 83* GFR 77* >90 GLU 91 77 CA 8.5 8.3* TP 6.6 -- ALB 3.1* -- TBIL 0.2 -- ALKP 97 -- AST 15 -- ALT 24 -- LIPASE 81 -- Pertinent images and labs reviewed WBC improved Impression: diverticulitis Plan: Cont IV antibiotics Will start clears Recheck WBC in the am ITA HAWK MD * Ashlee Casillas PA-C - 06/02/2019 10:50 AM CDT Hospitalist Daily Progress Note Subjective Ms. Ray was seen and examined at bedside this morning. She is overall feeling better. Her nausea has improved, her last episode was last night. Her abdominal pain is improving, however she is quill machine tender. She denies any shortness of breath, emesis, diarrhea, or lowe extremity edema. She remains NPO. Objective Filed Vitals: 06/01/19 0500 06/01/19 1252 06/01/19 1956 06/02/19 0527 BP: 121/67 141/78 137/79 135/65 Pulse: 74 58 69 66 Resp: 18 18 18 18 Temp: 98.3 ??F (36.8 ??C) 98 ??F (36.7 ??C) 98.6 ??F (37 ??C) 98.1 ??F (36.7 ??C) TempSrc: Oral Oral Oral SpO2: 93% 97% 98% 97% Weight: 114 kg (251 lb 5.2 oz) Height: Intake/Output 24H Total: Intake/Output Summary (Last 24 hours) at 06/02/2019 1051 Last data filed at 06/02/2019 0309 Gross per 24 hour Intake 1100 ml Output 1700 ml Net -600 ml Physical Exam: -GENERAL: No acute distress, Well nourished, Well developed -HEAD: Normocephalic, Atraumatic -EYES: Extraocular movements intact -LUNGS: Effort normal, Clear to auscultation bilaterally, No wheezes, No crackles, No ronchi -CVS: Regular rate and rhythm, S1 and S2 normal -ABDOMEN: Soft, Non distended, + BS, + lower abdominal tenderness -EXT: No lower extremity edema -NEURO: Awake, alert, oriented, No gross neuro deficits -SKIN: No significant rashes Medications ??? famotidine 20 mg Intravenous 2 times per day Or ??? famotidine 20 mg Oral 2 times per day ??? heparin (porcine) 5,000 Units Subcutaneous 2 times per day ??? levofloxacin 500 mg Intravenous Q24H ??? metroNIDAZOLE 500 mg Intravenous Q8H ??? 0.9 % NaCl with KCl 20 mEq 125 mL/hr at 06/02/19 1023 acetaminophen, hydrocodone-acetaminophen, morphine, ondansetron Labs, Imaging, Other Studies Recent Labs Lab 05/31/19225006/02/19 0807 WBC 13.1* 11.4* RBC 4.56 4.64 HGB 13.0 13.6 HCT 41.3 42.0 MCV 90.6 90.5 MCH 28.5 29.3 MCHC 31.5* 32.4 PLT 281 275 RDW 14.1 13.8 MPV 10.2 10.1 PERNEU 69.2 74.9 PERLYM 24.0 20.2 PERMON 5.1 3.7 LYMC 3.13 2.31 MONOC 0.66 0.42 EOSC 0.12 0.06 BASOC 0.07 0.05 DTYPE AUTOMATED DIFFERENTIAL AUTOMATED DIFFERENTIAL Recent Labs Lab 05/31/19 22506/02/19 0807 NA 143 140 K 3.8 3.9 CL 111* 111* CO2 27.3 23.3 AGAP 4.7* 5.7 BUN 19* 10 CR 1.04* 0.86 BUNCREATININ 18.3 11.6 GFRNON 66* 83* GFR 77* >90 GLU 91 77 CA 8.5 8.3* TP 6.6 -- ALB 3.1* -- TBIL 0.2 -- ALKP 97 -- AST 15 -- ALT 24 -- Recent Labs Lab 06/02/19 0807 INR 1.1 Recent Labs Lab 06/01/19 [address] Abdomen/Pelvis (06/01/19) IMPRESSION: 1. Long segment of active diverticulitis in the proximal and mid sigmoid colon with capsulated area of inflammatory stranding around large diverticulum and tiny droplet of air may represent developing abscess around contained ruptured diverticulum 2. Appearance of the bladder suggestiveof cystitis 3. No bowel obstruction 4. No renal lithiasis or hydronephrosis or evidence of obstructive uropathy. Assessment & Plan Acute Diverticulitis: CT scan showed finding concerning for developing abscess around contained ruptured diverticulum Surgery consulted - appreciate recommendations NPO/Bowel Rest IV fluids, pain control, antiemetics IV Levaquin/Flagyl Microscopic Hematuria U/A + RBC Recommend U/A in 4-6 weeks as an outpatient for follow up Morbid Obesity BMI 43.14 Encouraged lifestyle changes DVT Prophylaxis with Heparin SQ. Ashlee Casillas PA-C Cosigned by Kayleigh Thomason MD at 07/05/2019 7:19 AM CDT * Jaja Tian RN - 06/01/2019 4:06 PM CDT Problem: Nutrition Deficit Goal: Adequate nutritional intake Outcome: Not Progressing Pt NPO * Rhonda Jang APRN - 06/01/2019 11:24 AM CDT H&P 06/01 and surgical consult note per Dr. Hawk reviewed. Continue conservative management with IVF hydration and IV antibiotics. Repeat CBC and BMP in the am. Recommend repeat UA as outpatient for microscopic hematuria; follow up UA in 4-6 weeks. Cosigned by Jaimee Loyola MD at 06/06/2019 4:07 PM CDT * Anna Cortez RN - 06/01/2019 10:21 AM CDT 06/01/19 1019 Referral Data Referral Reason Discharge Planning Source of Information Patient Patient Information OB Patient < 19 yrs old No Primary Caregiver Self Support System Immediate family Baseline ADL's Functional Status Independent Assistive Device None Living Arrangements Spouse/significant other;Children Type of Residence Private residence Ambulation Independent Bathing/Grooming Independent Dressing Independent Behavior Oriented;Cooperative Communication Talks;Understands speaking Past services used, not currently utilized Type of Residence Private residence Socioeconomic Needs Caregiver Needed No At Risk of Abuse or Neglect No Adequate Resources Yes Psychological Needs: Mental health concerns No Potential Harm to Self or Others No Suspected Drug or Alcohol Abuse No Inappropriate Patient/Family Behaviors No Difficult Adjustment to Diagnosis No Anticipated Discharge Needs Change in Living Arrangements No In-Home Care or Equipment No Vocational and/or Role Loss No Inability to Complete ADL's No Discharge Planning Living Arrangements Spouse/significant other;Children Support Systems Spouse/significant other;Children Type of Residence Private residence Assistance Needed No Patient expects to be discharged to: Home NCM INTERVIEW WITH PATIENT. VERIFIED ADDRESS, PCP, PHARMACY, AND INSURANCE. PATIENT LIVES AT HOME WITH SIGNIFICANT OTHER, VERONICA, AND THEIR 2 CHILDREN. VERONICA OR SON IS ABLE TO TRANSPORT PATIENT HOME AT [place]. PATIENT DENIES ANY HOME NEEDS/CONCERNS. IS INDEPENDENT WITH ADLS WITHOUT ASSISTIVE DEVICES. DENIES ANY FINANCIAL NEEDS/CONCERNS. * Teja Segundo RN - 06/01/2019 7:47 AM CDT Problem: Nutrition Deficit Goal: Adequate nutritional intake Outcome: Not Progressing Patient remains NPO for now. Teja Segundo RN documented in this encounter H&P Notes * Milo Reynaga MD - 06/01/2019 2:43 AM CDT Hospitalist History and Physical Patient: Maria Del Carmen Ray Date: 06/01/2019 female, 43-year-old Admit Date: 05/31/2019 Attending: Milo Reynaga MD REASON FOR ADMISSION: Diverticulitis HISTORY OF PRESENT ILLNESS: Maria Del Carmen Ray is a 43-year-old female With no history of chronic medical problems who presented to our ER complaining of bilateral lower abdominal pain of 4 days duration that has been constant, burning crampy in nature, progressively getting worse, 9 out of 10 in severity, patient denies any nausea or vomiting, no change in bowel movement, no fever but patient reported chills, patientstated that she had urinary frequency and urgency yesterday, in the ER patient was evaluated white count was 13, CT scan of the abdomen and pelvis showed diverticulitis with finding that may represent developing abscess around contained ruptured diverticulum, patient was given IV Levaquin and IV Fla gyl, surgery were consulted and patient was admitted for further evaluation treatment. Allergy Allergies Allergen Reactions ??? Amoxicillin Rash Medication list No medications prior to admission. No current facility-administered medications on file prior to encounter. No current outpatient medications on file prior to encounter. Past Medical History Past Medical History: Diagnosis Date ??? Onychomycosis ??? Scabies ??? Tinea corporis ??? Tinea cruris Past Surgical History: Procedure Laterality Date ??? APPENDECTOMY ??? HYSTERECTOMY Social History Social History Socioeconomic History ??? Marital status: [...] file Gets together: Not on file Attends islam service: Not on file Active member of [...] Narrative ??? Not on file Family History Family History Problem Relation Name Age of Onset ??? Hypertension Father ??? Stroke Father ??? None Mother REVIEW OF SYSTEMS: A 14 point review of systems was taken and pertinent positive as per HPI PHYSICAL EXAMINATION: Vital 24 Hour Range Most Recent Value Temperature Temp Min: 98.1 ??F (36.7 ??C) Max: 98.4 ??F (36.9 ??C) 98.4 ??F (36.9 ??C) Pulse Pulse Min: 64 Max: 76 64 Respiratory Resp Min: 18 Max: 18 18 Blood Pressure BP Min: 114/68 Max: 155/104 144/83 Pulse Oximetry SpO2 Min: 98 % Max: 99 % 99 % O2 No Data Recorded Vital Most Recent Value First Value Weight 110.3 kg (243 lb 3.2 oz) Weight: 110.3 kg (243 lb 3.2 oz) Height 5' 4 (162.6 cm) Height: 5' 4 (162.6 cm) BMI 41.8 N/A Physical Exam: -GENERAL: No acute distress, breathing comfortably on room air. -EYES: Extraocular movements intact -ENT: Neck supple, Septum is midline. -LUNG: Clear to auscultation bilaterally, No wheezes, No crackles -CVS: Regular rate rhythm, S1 and S2 normal, No murmurs, -ABDOMEN: Soft, nondistended, bilateral lower quadrant tender, Bowel sounds observed -EXT: no lower Ext edema. -NEURO: Alert, awake, oriented x3, No gross neuro deficit -SKIN: Skin color, texture, turgor normal. No rashes or lesions Intake/Output last 3 shifts: No intake/output data recorded. Labs: Recent Labs Lab 05/31/192250 NA 143 K 3.8 CL 111* CO2 27.3 AGAP 4.7* BUN 19* CR 1.04* BUNCREATININ 18.3 GFRNON 66* GFR 77* GLU 91 CA 8.5 Recent Labs Lab 05/31/192250 WBC 13.1* RBC 4.56 HGB 13.0 HCT 41.3 MCV 90.6 MCH 28.5 MCHC 31.5* PLT 281 RDW 14.1 MPV 10.2 Recent Labs Lab 05/31/192250 AST 15 ALT 24 No results for input(s): INR, PTT in the last 168 hours. Invalid input(s): ABG arterial blood gases No results for input(s): TROP, TROPIWB, CPK in the last 168 hours. Invalid input(s): CK-MB No results for input(s): PH, PCO2, PO2, [id number], BICARBWB, BASEDEFICIT, BASEEXCESS in the xath607 hours. Imagining & Other Studies Ct Abd+pel W Iv Con Only Result Date: 06/01/2019 IMPRESSION: 1. Long segment of active diverticulitis in the proximal and mid sigmoid colon with capsulated area of inflammatory stranding around large diverticulum and tiny droplet of air may represent developing abscess around contained ruptured diverticulum 2. Appearance of the bladder suggestiveof cystitis 3. No bowel obstruction 4. No renal lithiasis or hydronephrosis or evidence of obstructive uropathy. No results found for this visit on 05/31/19. Assessment & Plan Acute diverticulitis: Patient admitted to the medical floor CT scan showed finding concerning for developing abscess around contained ruptured diverticulum Surgery have been consulted Keep patient n.p.o IV fluids, pain control, antiemetics Patient was given Levaquin and Flagyl in ER, continue Follow with surgery's recommendation Milo Reynaga MD 06/01/2019 2:43 AM documented in this encounter Consult Notes * Ita Hawk MD - 06/01/2019 7:24 AM CDT Surgery Consultation Note History Maria Del Carmen Ray is a 43-year-old female who presents with 3-4 day h/o bilat lower abd pain, severe constant crampy associated w/ nausea and chills no fevers vomitin. Denies dysuria/hematuriabut increased pain at the end of urination. No diarrhea/constipation, o SOB/CP, deneis previous sxssimilar to this. Never had a colonoscopy. CT in the ER shows diverticulitis w/o free air or abscess, films were reviewed. Past Medical History: Diagnosis Date ??? Onychomycosis ??? Scabies ??? Tinea corporis ??? Tinea cruris Past Surgical History: Procedure Laterality Date ??? APPENDECTOMY ??? HYSTERECTOMY Social History Tobacco Use ??? Smoking status: Former Smoker Types: Cigarettes ??? Smokeless tobacco: Never Used Substance Use Topics ??? Alcohol use: Yes Frequency: Never ??? Drug use: No Family History Problem Relation Name Age of Onset ??? Hypertension Father ??? Stroke Father ??? None Mother Prior to Admission medications Not on File Allergies Allergen Reactions ??? Amoxicillin Rash Review of Systems: ROS negative except for what was noted in HPI. Physical Exam Filed Vitals: 05/31/19 2239 06/01/19 0049 06/01/19 0233 06/01/19 0500 BP: (!) 155/104 114/68 144/83 121/67 Pulse: 76 75 64 74 Resp: 18 18 18 18 Temp: 98.1 ??F (36.7 ??C) 98.4 ??F (36.9 ??C) 98.3 ??F (36.8 ??C) TempSrc: Temporal Oral SpO2: 98% 99% 99% 93% Weight: 110.3 kg (243 lb 3.2 oz) Height: 5' 4 (1.626 m) Physical Exam Constitutional: She is oriented to person, place, and time. She appears well- developed and well-nourished. No distress. HENT: Head: Normocephalic and atraumatic. Eyes: EOM are normal. No scleral icterus. Neck: Normal range of motion. Neck supple. No thyromegaly present. Pulmonary/Chest: Effort normal. No respiratory distress. Abdominal: Soft. She exhibits no distension and no mass. There is tenderness (lower abd tenderness bilat w/ guarding no masses no peritoneal signs). There is guarding. There is no rebound. Musculoskeletal: Normal range of motion. She exhibits no edema or tenderness. Lymphadenopathy: She has no cervical adenopathy. Neurological: She is alert and oriented to person, place, and time. Skin: Skin is warm and dry. She is not diaphoretic. Psychiatric: She has a normal mood and affect. Her behavior is normal. Recent Labs Lab 05/31/19 2251 WBC 13.1* RBC 4.56 HGB 13.0 HCT 41.3 MCV 90.6 MCH 28.5 MCHC 31.5* PLT 281 RDW 14.1 MPV 10.2 PERNEU 69.2 PERLYM 24.0 PERMON 5.1 LYMC 3.13 MONOC 0.66 EOSC 0.12 BASOC 0.07 DTYPE AUTOMATED DIFFERENTIAL Recent Labs Lab 05/31/19 2251 NA 143 K 3.8 CL 111* CO2 27.3 AGAP 4.7* BUN 19* CR 1.04* BUNCREATININ 18.3 GFRNON 66* GFR 77* GLU 91 CA 8.5 TP 6.6 ALB 3.1* TBIL 0.2 ALKP 97 AST 15 ALT 24 No results for input(s): APTT, INR, PTT in the last 168 hours. Imaging: CT c/c acute diverticulitis Assessment Acute diverticulitis w/ small area of contained perforation obesity Plan Rec conservative management w/ bowel rest IVFs and IV antibiotics. Discussed indications for acute surgical intervention w/ her w/ resection colostomy if acutely ruptured, also discussed indication for surgery if this does not improve w/ conservative management again resection/colostomy. Discussed surgery resection w/ anastomosis if this becomes a recurrent problem. At this time do not find indications for acute surgical intervention nor do I anticipate surgery during this admission. All questions answered and she agrees w/ the plan. ITA HAWK MD documented in this encounter Nursing Notes * Janett Uribe RN - 06/04/2019 10:00 AM CDT Discharge instructions reviewed with patient. Patient verbalized understanding and all questions answered. Patient assisted by wheelchair to lobby for discharge. documented in this encounter ED Notes * Beverly Ferro PA-C - 06/01/2019 12:29 AM CDT ED NOTE Maria Del Carmen Ray 1975 Chief Complaint Chief Complaint Patient presents with ??? Abdominal Pain ??? Urinary Symptoms History of Present Illness 43-year-old -[place]ron[place] female patient with history of partial hysterectomy and no other abdominal surgical history presents to the emergency room complaining of bilateral lower abdominal/pelvicpain x3 days. Pain constant, worse with movements and touch. She denies any other aggravating or alleviating factors. Denies fever, vomiting, diarrhea, dysuria, hematuria, vaginal discharge or bleeding. Patient denies any concern for STD, reports monogamous relationship with one sexual partner x15 years. She does report urinary frequency last night. No medication taken prior to arrival. Patient declining pain medication at time of visit. Medical History ALLERGIES: Allergies Allergen Reactions ??? Amoxicillin Rash MEDICATIONS: Prior to Admission medications Not on File PAST MEDICAL HISTORY: Past Medical History: Diagnosis Date ??? Onychomycosis ??? Scabies ??? Tinea corporis ??? Tinea cruris PAST SURGICAL HISTORY: Past Surgical History: Procedure Laterality Date ??? APPENDECTOMY ??? HYSTERECTOMY FAMILY HISTORY: Family History Problem Relation Name Age of Onset ??? Hypertension Father ??? Stroke Father ??? None Mother SOCIAL HISTORY: Social History Tobacco Use ??? Smoking status: Former Smoker Types: Cigarettes ??? Smokeless tobacco: Never Used Substance Use Topics ??? Alcohol use: Yes Frequency: Never ??? Drug use: No Review of Systems Review of Systems Constitutional: Negative for activity change, appetite change, fever and unexpected weight change. HENT: Negative for ear pain, sore throat and trouble swallowing. Eyes: Negative. Respiratory: Negative for cough, chest tightness and shortness of breath. Cardiovascular: Negative for chest pain, palpitations and leg swelling. Gastrointestinal: Positive for abdominal pain. Negative for abdominal distention, constipation, diarrhea, nausea and vomiting. Endocrine: Negative. Genitourinary: Negative for dysuria, flank pain and hematuria. Musculoskeletal: Negative for arthralgias, back pain, myalgias and neck pain. Skin: Negative for color change, rash and wound. Allergic/Immunologic: Negative for immunocompromised state. Neurological: Negative for dizziness, speech difficulty, weakness, light- headedness, numbness and headaches. Hematological: Negative for adenopathy. Psychiatric/Behavioral: Negative. Physical Exam Filed Vitals: 05/31/19 2239 06/01/19 0049 BP: (!) 155/104 114/68 Pulse: 76 75 Resp: 18 18 Temp: 98.1 ??F (36.7 ??C) TempSrc: Temporal SpO2: 98% 99% Weight: 110.3 kg (243 lb 3.2 oz) Height: 5' 4 (1.626 m) Physical Exam Constitutional: She is oriented to person, place, and time. She appears well- developed and well-nourished. No distress. HENT: Head: Normocephalic and atraumatic. Right Ear: External ear normal. Left Ear: External ear normal. Nose: Nose normal. Mouth/Throat: Oropharynx is clear and moist. Eyes: Conjunctivae and EOM are normal. Pupils are equal, round, and reactive to light. Neck: Normal range of motion. Neck supple. No tracheal deviation present. No thyromegaly present. Cardiovascular: Normal rate, regular rhythm, normal heart sounds and intact distal pulses. Pulmonary/Chest: Effort normal and breath sounds normal. No respiratory distress. Abdominal: Soft. Bowel sounds are normal. She exhibits no distension and no mass. There is tenderness (b/l lower quadrants). There is no rebound and no guarding. No hernia. No specific McBurney point tenderness. Negative Parry sign. Negative Rovsing and heel tap. No signs of acute abdomen. No CVA tenderness Genitourinary: Genitourinary Comments: Deferred. Patient also denies any vaginal symptoms. Musculoskeletal: Normal range of motion. She exhibits no edema, tenderness or deformity. Lymphadenopathy: She has no cervical adenopathy. Neurological: She is alert and oriented to person, place, and time. She displays normal reflexes. No cranial nerve deficit or sensory deficit. She exhibits normal muscle tone. Coordination normal. Skin: Skin is warm and dry. Capillary refill takes less than 2 seconds. No rash noted. She is not diaphoretic. No pallor. Psychiatric: She has a normal mood and affect. Her behavior is normal. Judgment and thought contentnormal. Nursing note and vitals reviewed. Diagnostic Studies / Procedures ELECTROCARDIOGRAMS: No results found for this visit on 05/31/19. LABORATORY STUDIES: Results for orders placed or performed during the hospital encounter of 05/31/19 CBC W/DIFF AUTOMATED Result Value Ref Range WBC 13.1 (H) 4.5 - 11.0 x10'3/uL RBC 4.56 4.20 - 5.40 x10'6/uL HGB 13.0 12.0 - 16.0 G/DL HCT 41.3 38.0 - 48.0 % MCV 90.6 80.0 - 94.0 FL MCH 28.5 27.0 - 31.0 PG MCHC 31.5 (L) 32.0 - 36.0 G/DL RDW 14.1 11.5 - 14.5 % PLT 281 130 - 400 x10'3/uL MPV 10.2 9.3 - 12.2 FL DIFFERENTIAL TYPE AUTOMATED DIFFERENTIAL NEUTROPHILS 69.2 % LYMPHOCYTES 24.0 % MONOCYTES 5.1 % EOSINOPHILS 0.9 % BASOPHILS 0.5 % IMMATURE GRANS 0.3 % ABS. NEUTROPHILS TOTAL 9.04 (H) 1.80 - 7.70 x10'3/uL ABS. LYMPHOCYTES 3.13 1.00 - 4.80 x10'3/uL ABS. MONOCYTES 0.66 0.24 - 0.86 x10'3/uL ABS. EOSINOPHILS 0.12 0.04 - 0.36 x10'3/uL ABS. BASOPHILS 0.07 0.01 - 0.08 x10'3/uL ABS. IMMATURE GRANULOCYTES 0.04 0.00 - 0.49 x10'3/uL COMPREHENSIVE METABOLIC PANEL Result Value Ref Range GLUCOSE 91 70 - 99 MG/DL BUN 19 (H) 7 - 18 MG/DL CREATININE 1.04 (H) 0.55 - 1.02 MG/DL SODIUM 143 136 - 145 MMOL/L POTASSIUM 3.8 3.5 - 5.1 MMOL/L CHLORIDE 111 (H) 100 - 108 MMOL/L CO2 27.3 21 - 32 MMOL/L CALCIUM 8.5 8.5 - 10.1 MG/DL TOTAL BILIRUBIN 0.2 0.2 - 1.2 MG/DL TOTAL PROTEIN 6.6 6.4 - 8.2 G/DL ALBUMIN 3.1 (L) 3.4 - 5.0 G/DL AST 15 15 - 37 U/L ALT 24 14 - 55 U/L ALK PHOS 97 50 - 136 U/L ANION GAP 4.7 (L) 5 - 15 MMOL/L BUN CREATININE RATIO 18.3 6 - 26 A/G RATIO 0.9 (L) 1.0 - 2.0 RATIO eGFR Non-Afr. Amer. 66 (L) >90 ML/MIN/1.73 M2 eGFR Afr. Amer. 77 (L) >90 ML/MIN/1.73 M2 LIPASE Result Value Ref Range LIPASE 81 73 - 393 UNITS/L URINALYSIS Result Value Ref Range Specimen Type URINE CLEAN CATCH COLOR YELLOW TRANSPARENCY CLEAR Specific [place] (U) 1.026 1.001 - 1.030 U PH 5.0 5.0 - 9.0 LEUKOCYTE ESTERASE NEGATIVE NEGATIVE NITRITES NEGATIVE NEGATIVE PROTEIN, URINE NEGATIVE <30 MG/DL URINE GLUCOSE NEGATIVE NEGATIVE MG/DL U KETONES NEGATIVE NEGATIVE MG/DL UROBILINOGEN 2.0 (A) NEGATIVE MG/DL Urine Bilirubin NEGATIVE NEGATIVE MG/DL BLOOD SMALL (A) NEGATIVE CULTURE & SENSITIVITY INDICATED? CULTURE IS NOT INDICATED SQUAMOUS EPITHELIALS MANY /LPF MUCUS RARE /LPF WBC/HPF 2 <6 /HPF RBC/HPF 3 <6 /HPF IMAGING STUDIES CT ABD+PEL W IV CON ONLY Final Result by User, [id number] (06/01 010) EXAMINATION: CT Abdomen and Pelvis with contrast EXAM DATE/TIME: 06/01/2019 12:31 AM REASON FOR EXAM: Abdominal pain, unspecified [id number] to the ed from home reporting lower abdominal pain and pain with urination. 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 Pt also reporting chills. Pt. reports that pain has been increasing for 3 days. Slightly elevated WBC=13.1, small occult blood in U/A. Hx. of appendectomy and hysterectomy. COMPARISON: No previous TECHNIQUE: Computed tomography of the abdomen and pelvis was obtained after administration of intravenous contrast. Patient received 120 mL Isovue-370 into indwelling intravenous access without adverse contrast reaction reported. A dose lowering technique was used for this procedure, which may include, but is not limited to, dose reduction technique, automated exposure control, iterative reconstruction, ALARA (As Low As Reasonably Achievable), or Image Gently techniques. FINDINGS: Included lung bases: Clear of infiltrate or effusion. ABDOMEN: Liver: Unremarkable Spleen: Unremarkable Adrenal glands: Unremarkable right adrenal gland. 5 mm enlargement apex left adrenal gland probably adenoma. Pancreas: Unremarkable Gallbladder: Contracted. Kidneys: Bilateral symmetric nephrograms.. No renal lithiasis or hydronephrosis or evidence of obstructive uropathy. No contrast enhancing renal mass or cystic renal lesion. Subcentimeter left para-aortic infrarenal lymph nodes. May be reactive in etiology. PELVIS: Small bowel colon are unremarkable. Normal terminal ileum. Appendix surgically absent. Large bowel: The cecum hepatic flexure transverse colon are redundant. Widespread extensive diverticulosis with a long segment of active diverticulitis in the proximal and mid sigmoid colon. Large rounded area of perisigmoid inflammatory stranding fat induration wall thickening luminal narrowing irregularity loss of haustrations. The inflammatory stranding is circumferentially marginated around one particularly large air-filled diverticulum and there are tiny droplet of air contained within this area moderately severe inflammation consistent with developing abscess possible contained ruptured diverticulum. The large pocket of free air. There is a tiny amount of free fluid in the posterior cul-de-sac. This does not result in bowel obstruction. Urinary bladder: Thickened circumferential shaggy lr surrounded by fat induration pericystic linear stranding most consistent with cystitis. No stone in the bladder. Uterus and ovaries: Surgically absent consistent with given history Bone window imaging: Unremarkable. IMPRESSION: 1. Long segment of active diverticulitis in the proximal and mid sigmoid colon with capsulated area of inflammatory stranding around large diverticulum and tiny droplet of air may represent developing abscess around contained ruptured diverticulum 2. Appearance of the bladder suggestive of cystitis 3. No bowel obstruction 4. No renal lithiasis or hydronephrosis or evidence of obstructive uropathy. Course / Medical Decision Making MDM Number of Diagnoses or Management Options Amount and/or Complexity of Data Reviewed Clinical lab tests: ordered and reviewed Tests in the radiology section of CPT??: ordered and reviewed Tests in the medicine section of CPT??: ordered and reviewed Patient is in no acute distress, vital signs are stable, afebrile. Lower abdominal tenderness as noted. No signs of acute abdomen. Labs with mild leukocytosis, otherwise unremarkable for acute concern. CT abdomen/pelvis shows diverticulitis with early forming abscess, no perforation, per radiology read. Patient has declined pain medications thus far. IV Levaquin and Flagyl started in the emergency room after lactate and blood cultures drawn. Patient admitted to medical floor via hospitalist Dr. Reynaga, full admit. Consult to surgery, spoke with Dr. Ruelas, who will see pt. Medications metroNIDAZOLE (FLAGYL) IVPB 500 mg (not administered) levofloxacin (LEVAQUIN) IVPB 500 mg (not administered) iopamidol (ISOVUE-370) 76 % injection 120 mL (120 mLs Intravenous Given 06/01/19 0033) Clinical Impression Diverticulitis of large intestine with abscess without bleeding (Primary) Leukocytosis, unspecified type There are no discharge medications for this patient. Disposition: Admit Follow-Up: No follow-up provider specified. BEVERLY FERRO PA-C 06/01/2019 Beverly Ferro PA-C 06/01/19 0115 Cosigned by Jaylan Mcelroy MD at 06/01/2019 6:58 AM CDT * Erum Sanchez RN - 06/01/2019 12:27 AM CDT Pt to CT * Erum Sanchez RN - 06/01/2019 12:21 AM CDT Pt reports pain in lower abd x 3 days. Pt states she still has an appetite but feels aching in lower abd anytime she moves. Pt denies N/V/D. Also complains of urinary urgency and pain with urination. * Rose Marie Mancini RN - 05/31/2019 10:37 PM CDT Pt to the ed from home reporting lower abdominal pain and pain with urination. 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 Pt also reporting chills.ROSE MARIE MANCINI RN * ISAMAR Guerra - 05/31/2019 10:23 PM CDT [place], [place] EMERGENCY DEPARTMENT ENCOUNTER Medical Screening Examination 05/31/19 10:40 PM Chief Complaint : Abdominal Pain and Urinary Symptoms HPI : Maria Del Carmen Ray is a 43-year-old female who presents to the ER with c/o lower abdominal pain for the past 3 days. Pt states it hurts worse with laugh, coughing, moving, or walking. Pt tried ibuprofen without improvement. Pt denies nausea, vomiting, diarrhea, or constipation. Patient does report some pain at the end of her stream when urinating. Vital Signs: Filed Vitals: 05/31/19 2239 BP: (!) 155/104 Pulse: 76 Resp: 18 Temp: 98.1 ??F (36.7 ??C) TempSrc: Temporal SpO2: 98% Weight: 110.3 kg (243 lb 3.2 oz) Height: 5' 4 (1.626 m) Physical exam: A brief physical exam was completed to facilitate/expedite patient care. Generalizedlower abdominal pain, no rebound or guarding. Plan: Necessary labs/imaging/medications ordered to initiate pt care. ISAMAR Guerra 05/31/19 5600 Cosigned by Jaylan Mcelroy MD at 06/01/2019 12:57 AM CDT * Erum Sanchez RN - 05/31/2019 12:50 PM CDT Pt denies needing anything for pain. documented in this encounter Plan of Treatment Not on file documented as of this encounter Procedures Procedure Name Priority Date/Time Associated Diagnosis Comments BASIC METABOLIC PANEL Routine 06/04/2019 4:51 AM CDT CBC W/DIFF AUTOMATED Routine 06/04/2019 4:51 AM CDT BASIC METABOLIC PANEL Routine 06/03/2019 5:17 AM CDT CBC W/DIFF AUTOMATED TIMED 06/03/2019 5:17 AM CDT PROTHROMBIN TIME, VENOUS Routine 06/02/2019 8:07 AM CDT BASIC METABOLIC PANEL Routine 06/02/2019 8:07 AM CDT CBC W/DIFF AUTOMATED Routine 06/02/2019 8:07 AM CDT MAGNESIUM Routine 06/02/2019 8:07 AM CDT LACTIC ACID TIMED 06/01/2019 1:39 AM CDT CULTURE, BACTERIA, BLOOD STAT 06/01/2019 1:39 AM CDT CULTURE, BACTERIA, BLOOD STAT 06/01/2019 1:[address] ABD+PEL W CON STAT 06/01/2019 12:3 9 AM CDT URINALYSIS STAT 05/31/2019 10:56 PM CDT COMPREHENSIVE METABOLIC PANEL STAT 05/31/2019 10:51 PM CDT CBC W/DIFF AUTOMATED STAT 05/31/2019 10:51 PM CDT LIPASE STAT 05/31/2019 10:51 PM CDT documented in this encounter Results * (ABNORMAL) BASIC METABOLIC PANEL (06/04/2019 4:51 AM CDT) [facility] Signature GLUCOSE 83 70 - 99 MG/DL 06/04/2019 5:57 AM CDT [facility] BUN 10 7 - 18 MG/DL 06/04/2019 5:57 AM CDT [facility] CREATININE S/P/B 0.95 0.55 - 1.02 MG/DL 06/04/2019 5:57 AM CDT [facility] SODIUM S/P/B 140 136 - 145 MMOL/L 06/04/2019 5:57 AM CDT [facility] POTASSIUM S/P/B 3.9 3.5 - 5.1 MMOL/L 06/04/2019 5:57 AM CDT [facility] CHLORIDE S/P/B 110(H) 100 - 108 MMOL/L 06/04/2019 5:57 AM CDT [facility] CO2 24.4 21 - 32 MMOL/L 06/04/2019 5:57 AM CDT [facility] CALCIUM S/P/B 8.6 8.5 - 10.1 MG/DL 06/04/2019 5:57 AM CDT [facility] ANION GAP 5.6 5 - 15 MMOL/L 06/04/2019 5:57 AM CDT [facility] BUN CREATININE RATIO 10.5 6 - 26 06/04/2019 5:57 AM CDT [facility] EGFR NON-AFR. AMER. 74(L) >90 ML/MIN/1.7 3 M2 06/04/2019 5:57 AM CDT [facility] EGFR AFR. AMER. 86(L) >90 ML/MIN/1.7 3 M2 06/04/2019 5:57 AM CDT [facility] Comment: NOTE: eGFR is not calculated for patients <18 years of age. This is an estimated GFR (CKD EPI) and should not be used for calculating drug doses. 06/04/2019 4:51 AM CDT Ashlee Casillas PA-C LABORATORY Final Result [facility] [address] [place] [address], [place] [phone] * CBC W/DIFF AUTOMATED (06/04/2019 4:51 AM CDT) WBC 8.0 4.5 - 11.0 x10'3/uL 06/04/2019 5:28 AM CDT [facility] RBC 4.52 4.20 - 5.40 x10'6/uL 06/04/2019 5:28 AM CDT [facility] HGB 12.9 12.0 - 16.0 G/DL 06/04/2019 5:28 AM CDT [facility] HCT 40.0 38.0 - 48.0 % 06/04/2019 5:28 AM CDT [facility] MCV 88.5 80.0 - 94.0 FL 06/04/2019 5:28 AM CDT [facility] MCH 28.5 27.0 - 31.0 PG 06/04/2019 5:28 AM CDT [facility] MCHC 32.3 32.0 - 36.0 G/DL 06/04/2019 5:28 AM CDT [facility] RDW 13.6 11.5 - 14.5 % 06/04/2019 5:28 AM CDT [facility] PLT 270 130 - 400 x10'3/uL 06/04/2019 5:28 AM CDT [facility] MPV 10.0 9.3 - 12.2 FL 06/04/2019 5:28 AM CDT [facility] DIFFERENTIAL TYPE AUTOMATED DIFFERENTIAL 06/04/2019 5:28 AM CDT [facility] NEUTROPHILS % 60.9 % 06/04/2019 5:28 AM CDT [facility] LYMPHOCYTES % 30.3 % 06/04/2019 5:28 AM T [facility] MONOCYTES % 7.3 % 06/04/2019 5:28 AM CDT [facility] EOSINOPHILS 0.7 % 06/04/2019 5:28 AM CDT [facility] BASOPHILS 0.6 % 06/04/2019 5:28 AM CDT [facility] IMMATURE GRANS % 0.2 % 06/04/20 19 5:28 AM CDT [facility] ABS. NEUTROPHILS TOTAL 4.88 1.80 - 7.70 x10'3/uL 06/04/2019 5:28 AM CDT [facility] ABS. LYMPHOCYTES 2.44 1.00 - 4.80 x10'3/uL 06/04/2019 5:28 AM CDT [facility] ABS. MONOCYTES 0.59 0.24 - 0.86 x10'3/uL 06/04/2019 5:28 AM CDT [facility] ABS. EOSINOPHILS 0.06 0.04 - 0.36 x10'3/uL 06/04/2019 5:28 AM CDT [facility] ABS. BASOPHILS 0.05 0.01 - 0.08 x10'3/uL 06/04/2019 5:28 AM CDT [facility] ABS. IMMATURE GRANULOCYTES 0.02 0.00 - 0.49 x10'3/uL 06/04/2019 5:28 AM CDT [facility] 06/04/2019 4:51 AM CDT Ashlee Casillas PA-C LABORATORY Final Result [facility] [address] [place] [address], [place] [phone] * (ABNORMAL) BASIC METABOLIC PANEL (06/03/2019 5:17 AM CDT) GLUCOSE 80 70 - 99 MG/DL 06/03/2019 6:11 AM CDT [facility] BUN 8 7 - 18 MG/DL 06/03/2019 6:11 AM CDT [facility] CREATININE S/P/B 0.81 0.55 - 1.02 MG/DL 06/03/2019 6:11 AM T [facility] SODIUM S/P/B 140 136 - 145 MMOL/L 06/03/2019 6:11 AM [facility] POTASSIUM S/P/B 4.1 3.5 - 5.1 MMOL/L 06/03/2019 6:11 AM T [facility] CHLORIDE S/P/B 113(H) 100 - 108 MMOL/L 06/03/2019 6:11 AM T [facility] CO2 23.5 21 - 32 MMOL/L 06/03/2019 6:11 AM T [facility] CALCIUM S/P/B 8.1(L) 8.5 - 10.1 MG/DL 06/03/2019 6:11 AM T [facility] ANION GAP 3.5(L) 5 - 15 MMOL/L 06/03/2019 6:11 AM T [facility] BUN CREATININE RATIO 9.8 6 - 26 06/03/2019 6:11 AM T [facility] EGFR NON-AFR. AMER. 90(L) >90 ML/MIN/1.7 3 M2 06/03/2019 6:11 AM T [facility] EGFR AFR. AMER. >90 >90 ML/MIN/1.7 3 M2 06/03/2019 6:11 AM [facility] Comment: NOTE: eGFR is not calculated for patients <18 years of age. This is an estimated GFR (CKD EPI) and should not be used for calculating drug doses. 06/03/2019 5:17 AM CDT Ashlee Casillas PA-C LABORATORY Final Result [facility] [address] [place] [address], [place] [phone] * (ABNORMAL) CBC W/DIFF AUTOMATED (06/03/2019 5:17 AM CDT) [facility] WBC 7.1 4.5 - 11.0 x10'3/uL 06/03/2019 5:48 AM CDT [facility] RBC 4.22 4.20 - 5.40 x10'6/uL 06/03/2019 5:48 AM CDT [facility] HGB 12.3 12.0 - 16.0 G/DL 06/03/2019 5:48 AM CDT [facility] HCT 37.8(L) 38.0 - 48.0 % 06/03/2019 5:48 AM CDT [facility] MCV 89.6 80.0 - 94.0 FL 06/03/2019 5:48 AM CDT [facility] MCH 29.1 27.0 - 31.0 PG 06/03/2019 5:48 AM CDT [facility] MCHC 32.5 32.0 - 36.0 G/DL 06/03/2019 5:48 AM CDT [facility] RDW 13.5 11.5 - 14.5 % 06/03/2019 5:48 AM CDT [facility] PLT 247 130 - 400 x10'3/uL 06/03/2019 5:48 AM CDT [facility] MPV 9.7 9.3 - 12.2 FL 06/03/2019 5:48 AM CDT [facility] DIFFERENTIAL TYPE AUTOMATED DIFFERENTIAL 06/03/2019 5:48 AM CDT [facility] NEUTROPHILS % 61.7 % 06/03/2019 5:48 AM CDT [facility] LYMPHOCYTES % 31.3 % 06/03/2019 5:48 AM CDT [facility] MONOCYTES % 5.5 % 06/03/2019 5:48 AM CDT [facility] EOSINOPHILS 0.8 % 06/03/2019 5:48 AM CDT [facility] BASOPHILS 0.4 % 06/03/2019 5:48 AM CDT [facility] IMMATURE GRANS % 0.3 % 06/03/20 19 5:48 AM CDT [facility] ABS. NEUTROPHILS TOTAL 4.35 1.80 - 7.70 x10'3/uL 06/03/2019 5:48 AM CDT [facility] ABS. LYMPHOCYTES 2.21 1.00 - 4.80 x10'3/uL 06/03/2019 5:48 AM CDT [facility] ABS. MONOCYTES 0.39 0.24 - 0.86 x10'3/uL 06/03/2019 5:48 AM CDT [facility] ABS. EOSINOPHILS 0.06 0.04 - 0.36 x10'3/uL 06/03/2019 5:48 AM CDT [facility] ABS. BASOPHILS 0.03 0.01 - 0.08 x10'3/uL 06/03/2019 5:48 AM CDT [facility] ABS. IMMATURE GRANULOCYTES 0.02 0.00 - 0.49 x10'3/uL 06/03/2019 5:48 AM CDT [facility] 06/03/2019 5:17 AM CDT us Ita Hawk MD LABORATORY Final Resu lt [facility] [address] [place] [address], * (ABNORMAL) BASIC METABOLIC PANEL (06/02/2019 8:07 AM CDT) [facility] GLUCOSE 77 70 - 99 MG/DL 06/02/2019 9:20 AM T [facility] BUN 10 7 - 18 MG/DL 06/02/2019 9:20 AM T [facility] CREATININE S/P/B 0.86 0.55 - 1.02 MG/DL 06/02/2019 9:20 AM CDT [facility] SODIUM S/P/B 140 136 - 145 MMOL/L 06/02/2019 9:20 AM T [facility] POTASSIUM S/P/B 3.9 3.5 - 5.1 MMOL/L 06/02/2019 9:20 AM T [facility] CHLORIDE S/P/B 111(H) 100 - 108 MMOL/L 06/02/2019 9:20 AM T [facility] CO2 23.3 21 - 32 MMOL/L 06/02/2019 9:20 AM T [facility] CALCIUM S/P/B 8.3(L) 8.5 - 10.1 MG/DL 06/02/2019 9:20 AM T [facility] ANION GAP 5.7 5 - 15 MMOL/L 06/02/2019 9:20 AM T [facility] BUN CREATININE RATIO 11.6 6 - 26 06/02/2019 9:20 AM T [facility] EGFR NON-AFR. AMER. 83(L) >90 ML/MIN/1.7 3 M2 06/02/2019 9:20 AM T [facility] EGFR AFR. AMER. >90 >90 ML/MIN/1.7 3 M2 06/02/2019 9:20 AM T [facility] Comment: NOTE: eGFR is not calculated for patients <18 years of age. This is an estimated GFR (CKD EPI) and should not be used for calculating drug doses. 06/02/2019 8:07 AM CDT us Milo Reynaga MD LABORATORY Final Resul t Performing Organization Address City/[facility] Co de Phone Number [facility] [address] [place] [address], * MAGNESIUM (06/02/2019 8:07 AM CDT) MAGNESIUM 1.9 1.8 - 2.4 MG/DL 06/02/2019 9:20 AM CDT [facility] 06/02/2019 8:07 AM CDT us Milo Reynaga MD LABORATORY Final Resul t Performing Organization Address [facility] de Phone Number [facility] [address] [place] [address], [place] [phone] * (ABNORMAL) PROTHROMBIN TIME, VENOUS (06/02/2019 8:07 AM CDT) PROTIME 12.4(H) 9.6 - 12.2 SEC 06/02/2019 9:13 AM CDT [facility] INR 1.1 06/02/2019 9:13 AM CDT [facility] Comment: Recommended INR Therapeutic Goals: ??2.0-3.0 Routine Therapy ??2.5-3.5 Mechanical Prosthetic Valves (High Risk) ??3.0-4.0 Acute [place] (to prevent Systemic Embolism) The INR is used only for patients on stable oral anticoagulant therapy. It makes no significant contribution to the diagnosis or treatment of patients whose Protime is prolonged for other reasons. 06/02/2019 8:07 AM CDT us Milo Reynaga MD LABORATORY Final Resul t [facility] [address] [place] [address], [place] [phone] * (ABNORMAL) CBC W/DIFF AUTOMATED (06/02/2019 8:07 AM CDT) WBC 11.4(H) 4.5 - 11.0 x10'3/uL 06/02/2019 8:55 AM CDT [facility] RBC 4.64 4.20 - 5.40 x10'6/uL 06/02/2019 8:55 AM CDT [facility] HGB 13.6 12.0 - 16.0 G/DL 06/02/2019 8:55 AM CDT [facility] HCT 42.0 38.0 - 48.0 % 06/02/2019 8:55 AM CDT [facility] MCV 90.5 81.0 - 99.0 FL 06/02/2019 8:55 AM CDT [facility] MCH 29.3 27.0 - 31.0 PG 06/02/2019 8:55 AM CDT [facility] MCHC 32.4 32.0 - 36.0 G/DL 06/02/2019 8:55 AM CDT [facility] RDW 13.8 11.5 - 14.5 % 06/02/2019 8:55 AM CDT [facility] PLT 275 130 - 400 x10'3/uL 06/02/2019 8:55 AM CDT [facility] MPV 10.1 9.3 - 12.2 FL 06/02/2019 8:55 AM CDT [facility] DIFFERENTIAL TYPE AUTOMATED DIFFERENTIAL 06/02/2019 8:55 AM CDT [facility] NEUTROPHILS % 74.9 % 06/02/2019 8:55 AM CDT [facility] LYMPHOCYTES % 20.2 % 06/02/2019 8:55 AM CDT [facility] MONOCYTES % 3.7 % 06/02/2019 8:55 AM CDT [facility] EOSINOPHILS 0.5 % 06/02/2019 8:55 AM CDT [facility] BASOPHILS 0.4 % 06/02/2019 8:55 AM CDT [facility] IMMATURE GRANS % 0.3 % 06/02/20 19 8:55 AM CDT [facility] ABS. NEUTROPHILS TOTAL 8.55(H) 1.80 - 7.70 x10'3/uL 06/02/2019 8:55 AM CDT [facility] ABS. LYMPHOCYTES 2.31 1.00 - 4.80 x10'3/uL 06/02/2019 8:55 AM CDT [facility] ABS. MONOCYTES 0.42 0.24 - 0.86 x10'3/uL 06/02/2019 8:55 AM CDT [facility] ABS. EOSINOPHILS 0.06 0.04 - 0.36 x10'3/uL 06/02/2019 8:55 AM CDT [facility] ABS. BASOPHILS 0.05 0.01 - 0.08 x10'3/uL 06/02/2019 8:55 AM CDT [facility] ABS. IMMATURE GRANULOCYTES 0.03 0.00 - 0.49 x10'3/uL 06/02/2019 8:55 AM CDT [facility] 06/02/2019 8:07 AM CDT us Milo Reynaga MD LABORATORY Final Resul t [facility] [address] [place] [address], [place] [phone] * LACTIC ACID (06/01/2019 1:39 AM CDT) LACTIC ACID VENOUS 0.7 0.4 - 2.0 MMOL/L 06/01/2019 2:11 AM CDT [facility] 06/01/2019 1:39 AM CDT Beverly Ferro PA-C LABORATORY Final Resul t [facility] [address] [place] [address], [place] [phone] * CULTURE, BACTERIA, BLOOD (06/01/2019 1:39 AM CDT) SPEC DESCRIPTION BLOOD 06/01/2019 2:04 AM CDT [facility] SPECIAL REQUESTS RIGHT FOREARM 06/01/2019 2:04 AM CDT [facility] CULTURE RESULT NO GROWTH 5 DAYS 06/06/2019 2:13 PM CDT [facility] BLOOD SPECIMEN OBTAINED FOR BLOOD CULTURE / Unknown 06/01/2019 1:39 AM CDT 06/01/2019 2:04 AM CDT Beverly Ferro PA-C MICROBIOLOGY - GENERAL ORDE RABLES Final Result [facility] [address] [place] [address], [place] [phone] * CULTURE, BACTERIA, BLOOD (06/01/2019 1:39 AM CDT) SPEC DESCRIPTION BLOOD 06/01/20 19 1:46 AM CDT [facility] SPECIAL REQUESTS ARM,RIGHT 06/01/20 19 1:46 AM CDT [facility] CULTURE RESULT NO GROWTH 5 DAYS 06/06/2019 2:13 PM CDT [facility] BLOOD SPECIMEN OBTAINED FOR BLOOD CULTURE / Unknown 06/01/2019 1:39 AM CDT 06/01/2019 1:46 AM CDT Beverly Ferro PA-C MICROBIOLOGY - GENERAL ORDEfren AVINA Final Result [facility] [address] [place] [address], * CT ABD+PEL W IV CON ONLY (06/01/2019 12:39 AM CDT) Anatomical Region Laterality Modality Abdomen Computed Tomogra phy 06/01/2019 12:4 9 AM CDT Impressions 06/01/2019 1:02 AM CDT IMPRESSION: 1. Long segment of active diverticulitis in the proximal and mid sigmoid colon with capsulated area of inflammatory stranding around large diverticulum and tiny droplet of air may represent developing abscess around contained ruptured diverticulum 2. Appearance of the bladder suggestive of cystitis 3. No bowel obstruction 4. No renal lithiasis or hydronephrosis or evidence of obstructive uropathy. Narrative 06/01/2019 1:02 AM CDT EXAMINATION: CT Abdomen and Pelvis with contrast EXAM DATE/TIME: 06/01/2019 12:31 AM REASON FOR EXAM: ??Abdominal pain, unspecified ? [id number] to the ed from home reporting lower abdominal pain and pain with urination. 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 Pt also reporting chills. ?? Pt. reports that pain has been increasing for 3 days. ??Slightly elevated WBC=13.1, small occult blood in U/A. ??Hx. of appendectomy and hysterectomy. ?? COMPARISON: No previous TECHNIQUE: Computed tomography of the abdomen and pelvis was obtained after administration of intravenous contrast. Patient received 120 mL Isovue-370 into indwelling intravenous access without adverse contrast reaction reported. A dose lowering technique was used for this procedure, which may include, but is not limited to, dose reduction technique, automated exposure control, iterative reconstruction, ALARA (As Low As Reasonably Achievable), or Image Gently techniques. FINDINGS: Included lung bases: Clear of infiltrate or effusion. ABDOMEN: Liver: Unremarkable Spleen: Unremarkable Adrenal glands: Unremarkable right adrenal gland. 5 mm enlargement apex left adrenal gland probably adenoma. Pancreas: Unremarkable Gallbladder: Contracted. Kidneys: Bilateral symmetric nephrograms.. No renal lithiasis or hydronephrosis or evidence of obstructive uropathy. No contrast enhancing renal mass or cystic renal lesion. Subcentimeter left para-aortic infrarenal lymph nodes. May be reactive in etiology. PELVIS: Small bowel colon are unremarkable. Normal terminal ileum. Appendix surgically absent. Large bowel: The cecum hepatic flexure transverse colon are redundant. Widespread extensive diverticulosis with a long segment of active diverticulitis in the proximal and mid sigmoid colon. Large rounded area of perisigmoid inflammatory stranding fat induration wall thickening luminal narrowing irregularity loss of haustrations. The inflammatory stranding is circumferentially marginated around one particularly large air-filled diverticulum and there are tiny droplet of air contained within this area moderately severe inflammation consistent with developing abscess possible contained ruptured diverticulum. The large pocket of free air. There is a tiny amount of free fluid in the posterior cul-de-sac. This does not result in bowel obstruction. Urinary bladder: Thickened circumferential shaggy lr surrounded by fat induration pericystic linear stranding most consistent with cystitis. No stone in the bladder. Uterus and ovaries: Surgically absent consistent with given history Bone window imaging: Unremarkable. Procedure Note Pearl Gutierrez MD - 06/01/2019 EXAMINATION: CT Abdomen and Pelvis with contrast EXAM DATE/TIME: 06/01/2019 12:31 AM REASON FOR EXAM: Abdominal pain, unspecified [id number] to the ed from home reporting lower abdominal pain andpain with urination. 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 Pt also reporting chills. Pt. reports thatpain has been increasing for 3 days. Slightly elevated WBC=13.1, small occult blood in U/A. Hx. of appendectomy and hysterectomy. COMPARISON: No previous TECHNIQUE: Computed tomography of the abdomen and pelvis was obtainedafter administration of intravenous contrast. Patient received 120 mLIsovue-370 into indwelling intravenous access without adverse contrast reaction reported. A dose lowering technique was used for this procedure, which mayinclude, but is not limited to, dose reduction technique, automated exposure control, iterative reconstruction, ALARA (As Low As ReasonablyAchievable), or Image Gently techniques. FINDINGS: Included lung bases: Clear of infiltrate or effusion. ABDOMEN: Liver: Unremarkable Spleen: Unremarkable Adrenal glands: Unremarkable right adrenal gland. 5 mm enlargement apex left adrenal gland probably adenoma. Pancreas: Unremarkable Gallbladder: Contracted. Kidneys: Bilateral symmetric nephrograms.. No renal lithiasis or hydronephrosis or evidence of obstructive uropathy. No contrastenhancing renal mass or cystic renal lesion. Subcentimeter left para-aortic infrarenal lymph nodes. May be reactivein etiology. PELVIS: Small bowel colon are unremarkable. Normal terminal ileum. Appendix surgically absent. Large bowel: The cecum hepatic flexure transverse colon are redundant. Widespread extensive diverticulosis with a long segment of active diverticulitis in the proximal and mid sigmoid colon. Large rounded areaof perisigmoid inflammatory stranding fat induration wall thickeningluminal narrowing irregularity loss of haustrations. The inflammatory strandingis circumferentially marginated around one particularly large air-filled diverticulum and there are tiny droplet of air contained within thisarea moderately severe inflammation consistent with developing abscesspossible contained ruptured diverticulum. The large pocket of free air. There stacey tiny amount of free fluid in the posterior cul-de-sac. This does not result in bowel obstruction. Urinary bladder: Thickened circumferential shaggy lr surrounded byfat induration pericystic linear stranding most consistent with cystitis. No stone in the bladder. Uterus and ovaries: Surgically absent consistent with given history Bone window imaging: Unremarkable. IMPRESSION: 1. Long segment of active diverticulitis in the proximal and mid sigmoid colon with capsulated area of inflammatory stranding around large diverticulum and tiny droplet of air may represent developing abscess around contained ruptured diverticulum 2. Appearance of the bladder suggestive of cystitis 3. No bowel obstruction 4. No renal lithiasis or hydronephrosis or evidence of obstructive uropathy. Heather Kirkpatrick [employer]-[facility] CT Final Res ult * (ABNORMAL) URINALYSIS (05/31/2019 10:56 PM CDT) SPECIMEN TYPE URINE CLEAN CATCH 05/31/2019 10:50 PM CDT [facility] COLOR (U) YELLOW 05/31/2019 11:17 PM CDT [facility] TRANSPARENCY CLEAR 05/31/2019 11:17 PM CDT [facility] SPECIFIC GRAVITY (U) 1.026 1.001 - 1.030 05/31/2019 11:17 PM CDT [facility] U PH 5.0 5.0 - 9.0 05/31/2019 11:17 PM CDT [facility] LEUKOCYTES (U) NEGATIVE NEGATIVE 05/31/2019 11:17 PM CDT [facility] NITRITES NEGATIVE NEGATIVE 05/31/2019 11:17 PM CDT [facility] PROTEIN (U) NEGATIVE <30 MG/DL 05/31/2019 11:17 PM CDT [facility] URINE GLUCOSE NEGATIVE NEGATIVE MG/DL 05/31/2019 11:17 PM CDT [facility] KETONES MG/DL (U) NEGATIVE NEGATIVE MG/DL 05/31/2019 11:17 PM CDT [facility] UROBILINOGEN 2.0(A) NEGATIVE MG/DL 05/31/2019 11:17 PM [facility]T [facility] [facility] BIL[facility] (U) NEGATIVE NEGATIVE MG/DL 05/31/2019 11:17 PM CDT [facility] BLOOD (U) SMALL(A) NEGATIVE 05/31/2019 11:17 PM CDT [facility] CULTURE & SENSITIVITY INDICATED? CULTURE IS NOT INDICATED 05/31/2019 11:17 PM CDT [facility] SQUAMOUS EPITHELIALS MANY /LPF 05/31/2019 11:17 PM CDT [facility] MUCUS RARE /LPF 05/31/2019 11:17 PM CDT [facility] WBC/HPF 2 <6 /HPF 05/31/2019 11:17 PM CDT [facility] RBC/HPF 3 <6 /HPF 05/31/2019 11:17 PM CDT [facility] URINE SPECIMEN OBTAINED BY CLEAN CATCH PROCEDURE / Unknown 05/31/2019 10:56 PM CDT Heather Fernando Kaya [facility]- URINE ORDERABLES Final Re sult Performing Organization Address City/[facility]/ZIP Co de Phone Number [facility] [address] [place] [address], [place] [phone] * LIPASE (05/31/2019 10:51 PM CDT) Pathologist [facility] LIPASE 81 73 - 393 UNITS/L 05/31/2019 11:46 PM CDT [facility] 05/31/2019 10:5 1 PM CDT Heather King Kaya [facility]ATORY Final Res ult [facility] [address] [place] [address], [place] [phone] * (ABNORMAL) COMPREHENSIVE METABOLIC PANEL (05/31/2019 10:51 PM CDT) GLUCOSE 91 70 - 99 MG/DL 05/31/2019 11:46 PM CDT [facility] BUN 19(H) 7 - 18 MG/DL 05/31/2019 11:46 PM T [facility] CREATININE S/P/B 1.04(H) 0.55 - 1.02 MG/DL 05/31/2019 11:46 PM CDT [facility] SODIUM S/P/B 143 136 - 145 MMOL/L 05/31/2019 11:46 PM CDT [facility] POTASSIUM S/P/B 3.8 3.5 - 5.1 MMOL/L 05/31/2019 11:46 PM T [facility] CHLORIDE S/P/B 111(H) 100 - 108 MMOL/L 05/31/2019 11:46 PM CDT [facility] CO2 27.3 21 - 32 MMOL/L 05/31/2019 11:46 PM CDT [facility] CALCIUM S/P/B 8.5 8.5 - 10.1 MG/DL 05/31/2019 11:46 PM T [facility] BILIRUBIN TOTAL S/P/B 0.2 0.2 - 1.2 MG/DL 05/31/2019 11:46 PM CDT [facility] TOTAL PROTEIN S/P/B 6.6 6.4 - 8.2 G/DL 05/31/2019 11:46 PM CDT [facility] ALBUMIN S/P/B 3.1(L) 3.4 - 5.0 G/DL 05/31/2019 11:46 PM CDT [facility] AST 15 15 - 37 U/L 05/31/2019 11:46 PM T [facility] ALT 24 14 - 55 U/L 05/31/2019 11:46 PM T [facility] ALKALINE PHOSPHATASE S/P/B 97 50 - 136 U/L 05/31/2019 11:46 PM CDT [facility] ANION GAP 4.7(L) 5 - 15 MMOL/L 05/31/2019 11:46 PM CDT [facility] BUN CREATININE RATIO 18.3 6 - 26 05/31/2019 11:46 PM CDT [facility] A/G RATIO 0.9(L) 1.0 - 2.0 RATIO 05/31/2019 11:46 PM CDT [facility] EGFR NON-AFR. AMER. 66(L) >90 ML/MIN/1.7 3 M2 05/31/2019 11:46 PM CDT [facility] EGFR AFR. AMER. 77(L) >90 ML/MIN/1.7 3 M2 05/31/2019 11:46 PM CDT [facility] Comment: NOTE: eGFR is not calculated for patients <18 years of age. This is an estimated GFR (CKD EPI) and should not be used for calculating drug doses. 05/31/2019 10:5 1 PM CDT Heather Kirkpatrick [facility] Final Res ult [facility] [address] [address], [place] [phone] * (ABNORMAL) CBC W/DIFF AUTOMATED (05/31/2019 10:51 PM CDT) WBC 13.1(H) 4.5 - 11.0 x10'3/uL 05/31/2019 11:33 PM CDT [facility] RBC 4.56 4.20 - 5.40 x10'6/uL 05/31/2019 11:33 PM CDT [facility] HGB 13.0 12.0 - 16.0 G/DL 05/31/2019 11:33 PM CDT [facility] HCT 41.3 38.0 - 48.0 % 05/31/2019 11:33 PM CDT [facility] MCV 90.6 80.0 - 94.0 FL 05/31/2019 11:33 PM CDT [facility] MCH 28.5 27.0 - 31.0 PG 05/31/2019 11:33 PM CDT [facility] MCHC 31.5(L) 32.0 - 36.0 G/DL 05/31/2019 11:33 PM CDT [facility] RDW 14.1 11.5 - 14.5 % 05/31/2019 11:33 PM CDT [facility] PLT 281 130 - 400 x10'3/uL 05/31/2019 11:33 PM CDT [facility] MPV 10.2 9.3 - 12.2 FL 05/31/2019 11:33 PM CDT [facility] DIFFERENTIAL TYPE AUTOMATED DIFFERENTIAL 05/31/2019 11:33 PM CDT [facility] NEUTROPHILS % 69.2 % 05/31/2019 11:33 PM CDT [facility] LYMPHOCYTES % 24.0 % 05/31/2019 11:33 PM CDT [facility] MONOCYTES % 5.1 % 05/31/2019 11:33 PM CDT [facility] EOSINOPHILS 0.9 % 05/31/2019 11:33 PM CDT [facility] BASOPHILS 0.5 % 05/31/2019 11:33 PM CDT [facility] IMMATURE GRANS % 0.3 % 05/31/20 19 11:33 PM CDT [facility] ABS. NEUTROPHILS TOTAL 9.04(H) 1.80 - 7.70 x10'3/uL 05/31/2019 11:33 PM CDT [facility] ABS. LYMPHOCYTES 3.13 1.00 - 4.80 x10'3/uL 05/31/2019 11:33 PM CDT [facility] ABS. MONOCYTES 0.66 0.24 - 0.86 x10'3/uL 05/31/2019 11:33 PM CDT [facility] ABS. EOSINOPHILS 0.12 0.04 - 0.36 x10'3/uL 05/31/2019 11:33 PM CDT [facility] ABS. BASOPHILS 0.07 0.01 - 0.08 x10'3/uL 05/31/2019 11:33 PM CDT [facility] ABS. IMMATURE GRANULOCYTES 0.04 0.00 - 0.49 x10'3/uL 05/31/2019 11:33 PM CDT [facility] 05/31/2019 10:5 1 PM CDT Heather Kirkpatrick [facility] Final Res ult [facility] [address] [place] [address], [place] [phone] documented in this encounter Visit Diagnoses Diagnosis Diverticulitis- Primary Diverticulitis of colon (without mention of hemorrhage) Diverticulitis of large intestine with abscess without bleeding Leukocytosis, unspecified type documented in this encounter Administered Medications Inactive Administered Medications - up to 3 most recent administrations Medication Order MAR Action Action Date Dose Rate Site 0.9 % NaCl with KCl 20 mEq infusion at 125 mL/hr, Intravenous, Continuous, Starting on Tue06/01/19 at 0300, Until Tue06/03/19 at 0259 New Bag 06/02/2019 8:26 PM CDT 125 mL/hr 125 mL/hr New Bag 06/02/2019 10:23 AM CDT 125 mL/hr New Bag 06/01/2019 11:01 PM CDT 125 mL/hr 125 mL/hr acetaminophen (TYLENOL) tablet 650 mg 650 mg, Oral, Every 4 hours PRN, Mild pain (Scale 1 - 3), Starting on Tue06/01/19 at 0238, Until Tue06/04/19 at 1203, Maximum dose of acetaminophen is 4000 mg from all sources in 24 hours. Given 06/02/2019 7:46 PM CDT 650 mg famotidine (PEPCID) injection 20 mg 20 mg, Intravenous, Every 12 hours scheduled (2 times per day), First dose on Tue06/01/19 at 0900, Until Discontinued, Give if unable to take PO. IV Push over 2 minutes Given 06/02/2019 8:49 AM CDT 20 mg Given 06/01/2019 8:45 PM CDT 20 mg Given 06/01/2019 8:02 AM CDT 20 mg famotidine (PEPCID) tablet 20 mg 20 mg, Oral, Every 12 hours scheduled (2 times per day), First dose on Tue06/01/19 at 0900, Until Discontinued Given 06/04/2019 9:07 AM CDT 20 mg Given 06/03/2019 10:34 PM CDT 20 mg Given 06/03/2019 9:00 AM CDT 20 mg heparin (porcine) injection 5,000 Units 5,000 Units, Subcutaneous, Every 12 hours scheduled (2 times per day), First dose on Tue06/01/19 at 0900, Until Discontinued Given 06/03/2019 9:00 AM CDT 5,000 Units Left Lower Abdomen Given 06/02/2019 8:26 PM CDT 5,000 Units R ight Lower Abdomen Given 06/02/2019 8:48 AM CDT 5,000 Units R ight Lower Abdomen hydrocodone-acetaminophen (NORCO) 5-325 MG tablet 1 tablet 1 tablet, Oral, Every 4 hours PRN, Moderate pain (Scale 4 - 7), Starting on Tue06/01/19 at 0156, Until Tue06/04/19 at 1203, Maximum dose of acetaminophen is 4000 mg from all sources in 24 hours. Given 06/03/2019 10:39 PM CDT 1 tab let Given 06/02/2019 11:23 PM CDT 1 tablet Given 06/02/2019 10:10 AM CDT 1 tablet iopamidol (ISOVUE-370) 76 % injection 120 mL 120 mL, Intravenous, IMG once as needed, Contrast, 1 dose, Starting on Tue06/01/19 at 0048, Until Tue06/01/19 at 0033 Given 06/01/2019 12:33 AM CDT 120 mLs Right Arm levofloxacin (LEVAQUIN) IVPB 500 mg 500 mg, Intravenous, at 100 mL/hr, Once, 1 dose, On Tue06/01/19 at 0115 06/01/2019 3:16 AM CDT 500 mg 100 mL/hr levofloxacin (LEVAQUIN) IVPB 500 mg 500 mg, Intravenous, at 100 mL/hr, Every 24 hours, First dose on Tue06/02/19 at 0300, Until Discontinued 06/04/2019 3:20 AM CDT 500 mg 100 mL/hr 06/03/2019 4:00 AM CDT 500 mg 100 mL/hr 06/02/2019 3:09 AM CDT 500 mg 100 mL/hr levofloxacin (LEVAQUIN) tablet 500 mg 500 mg, Oral, Daily, First dose on Tue06/05/19 at 0900, Until Discontinued, IV to PO per protocol metroNIDAZOLE (FLAGYL) IVPB 500 mg 500 mg, Intravenous, at 100 mL/hr, Once, 1 dose, On Tue06/01/19 at 0115 06/01/2019 1:56 AM CDT 500 mg 100 mL/hr metroNIDAZOLE (FLAGYL) IVPB 500 mg 500 mg, Intravenous, at 100 mL/hr, Every 8 hours, First dose on Tue06/01/19 at 1000, Until Discontinued 06/04/2019 2:11 AM CDT 500 m g 100 mL/hr 06/03/2019 6:17 PM CDT 500 mg 100 mL/hr 06/03/2019 10:26 AM CDT 500 mg 100 mL/hr metroNIDAZOLE (FLAGYL) tablet 500 mg 500 mg, Oral, Every 8 hours scheduled (3 times per day), First dose on Tue06/04/19 at 0945, Until Discontinued, IV to PO per protocol documented in this encounter Active and Recently Administered Medications Times are shown in CDT. Scheduled Medication Order 06/02/2019 06/03/2019 06/04/2019 famotidine (PEPCID) injection 20 mg(Linked Group 1) 20 mg, Intravenous, Every 12 hours scheduled (2 times per day), First dose on Tue06/01/19 at 0900, Until Discontinued, Give if unable to take PO. IV Push over 2 minutes 0849 (Given - Provider: Rose Marie Mohr RN)2025 (See Alternative - Provider: Antonia Evans RN) 09 (See Alternative - Provider: Rose Marie Mohr RN)2233 (See Alternative - Provider: Jorge Luis Jones, RITA) 09 (See Alternative - Provider: Janett Uribe RN) famotidine (PEPCID) tablet 20 mg(Linked Group 1) 20 mg, Oral, Every 12 hours scheduled (2 times per day), First dose on Tue06/01/19 at 0900, Until Discontinued 0849 (See Alternative - Provider: Rose Marie Mohr RN)2025 (Given - Provider: Antonia Evans RN) 09 (Given - Provider: Rose Marie Mohr RN)2233 (Given - Provider: Jorge Lius Jones RN) 09 (Given - Provider: Janett Uribe RN) heparin (porcine) injection 5,000 Units(Linked Group 2) 5,000 Units, Subcutaneous, Every 12 hours scheduled (2 times per day), First dose on Tue06/01/19 at 0900, Until Discontinued 0848 (Given - Provider: Rose Marie Mohr RN)2025 (Given - Provider: Antonia Evans, RITA) 09 (Given - Provider: Rose Marie Mohr RN)2233 (Not Given - Provider: Jorge Luis Jones RN - Reason: Patient/family declined - Comment: does not want any more bruises. declines at this time) 09 (Not Given - Provider: Janett Uribe RN - Reason: Patient/family declined) levofloxacin (LEVAQUIN) IVPB 500 mg (CANCELED) 500 mg, Intravenous, at 100 mL/hr, Every 24 hours, First dose on Tue06/02/19 at 0300, Until Discontinued 030 (New Bag - Provider: Raymond Headr RN)0446 (Infusion Stop Time - Provider: Raymond Heard RN) 0400 (New Bag - Provider: Antonia Evans RN)0500 (Infusion Stop Time - Provider: Antonia Evans RN) 0320 (New Bag - Provider: Jorge Luis Jones, RITA)0420 (Infusion Stop Time - Provider: Jorge Luis Jones RN) levofloxacin (LEVAQUIN) tablet 500 mg 500 mg, Oral, Daily, First dose on Tue06/05/19 at 0900, Until Discontinued, IV to PO per protocol metroNIDAZOLE (FLAGYL) IVPB 500 mg (CANCELED) 500 mg, Intravenous, at 100 mL/hr, Every 8 hours, First dose on Tue06/01/19 at 1000, Until Discontinued 0200 (New Bag - Provider: Raymond Heard RN)0339 (Infusion Stop Time - Provider: Raymond Heard RN)1011 (New Bag - Provider: Rose Marie Mohr RN)1115 (Infusion Stop Time - Provider: Rose Marie Mohr RN)1812 (New Bag - Provider: Rose Marie Mohr RN)1912 (Infusion Stop Time - Provider: Antonia Evans RN) 0243 (New Bag - Provider: Antonia Evans RN)0343 (Infusion Stop Time - Provider: Antonia Evans RN)1026 (New Bag - Provider: Rose Marie Mohr RN)1138 (Infusion Stop Time - Provider: Rose Marie Mohr RN)1817 (New Bag - Provider: Rose Marie Mohr RN)1917 (Infusion Stop Time - Provider: Jorge Luis Jones RN) 0211 (New Bag - Provider: Jorge Luis Jones RN)0311 (Infusion Stop Time - Provider: Jorge Luis Jones RN) metroNIDAZOLE (FLAGYL) tablet 500 mg 500 mg, Oral, Every 8 hours scheduled (3 times per day), First dose on Tue06/04/19 at 0945, Until Discontinued, IV to PO per protocol 0945 (Canceled Entry - Provider: Automatic Discharge Provider - Comment: Automatically canceled at discontinue of medication order) Continuous Medication Order 06/02/2019 06/03/2019 06/04/2019 0.9 % NaCl with KCl 20 mEq infusion () at 125 mL/hr, Intravenous, Continuous, Starting on Tue06/01/19 at 0300, Until Tue06/03/19 at 0259 1015 (Infusion Stop Time - Provider: Rose Marie Mohr RN)1023 (New Bag - Provider: Rose Marie Mohr RN)2024 (Infusion Stop Time - Provider: Antonia Evans, RITA)2025 (New Bag - Provider: Antonia Evans, RN) PRN Medication Order 06/02/2019 06/03/2019 06/04/2019 acetaminophen (TYLENOL) tablet 650 mg 650 mg, Oral, Every 4 hours PRN, Mild pain (Scale 1 - 3), Starting on Tue06/01/19 at 0238, Until Tue06/04/19 at 1203, Maximum dose of acetaminophen is 4000 mg from all sources in 24 hours. 194 (Given - Provider: Antonia Evans, RITA - Comment: Patient requested tylenol. I offered a stronger pain med for pain = 06/16 but she still wanted tylenol.) hydrocodone-acetaminophen (NORCO) 5-325 MG tablet 1 tablet 1 tablet, Oral, Every 4 hours PRN, Moderate pain (Scale 4 - 7), Starting on Tue06/01/19 at 0156, Until Tue06/04/19 at 1203, Maximum dose of acetaminophen is 4000 mg from all sources in 24 hours. 1010 (Given - Provider: Rose Marie Mohr RN)232 (Given - Provider: Antonia Evans, RITA) 2238 (Given - Provider: Jorge Luis Jones RN) ondansetron (ZOFRAN) injection 4 mg 4 mg, Intravenous, Every 6 hours PRN, Nausea, Vomiting, Starting on Tue06/01/19 at 0238, Until Tue06/04/19 at 1203 Linked Groups Order Group 1: famotidine (PEPCID) injection 20 mgJump to med 20 mg, Intravenous, Every 12 hours scheduled (2 times per day), First dose on Tue06/01/19 at 0900, Until Discontinued, Give if unable to take PO. IV Push over 2 minutes Or famotidine (PEPCID) tablet 20 mgJump to med 20 mg, Oral, Every 12 hours scheduled (2 times per day), First dose on Tue06/01/19 at 0900, Until Discontinued Group 2: heparin (porcine) injection 5,000 UnitsJump to med 5,000 Units, Subcutaneous, Every 12 hours scheduled (2 times per day), First dose on Tue06/01/19 at 0900, Until Discontinued And Moderate Risk for VTE (COMPLETED) documented in this encounter
--- OUTSIDE RECORDS SUMMARY | 2024-11-04 23:03 | XMS_ITS | Encounter Summary ---
Author Organization [facility] Address [address] [place] [address]. [place] [address] [place] [address] Care Team Providers Care Race Car Mechanic Name Role Phone Unavailable Primary Care Provider Unavailabl e Reason for Visit * Auth/Cert Specialty Diagnoses / Procedures Referred By Veronica t Referred To Contact Diagnoses DIVERTICULITIS Procedures COLONOSCOPY DIAGNOSTIC WITH/WITHOUT SPECIMEN BRUSH/WASH Referral ID Status Reason Start Date Expiration Date Visits Re quested Visits Authorized [id number] 1 1 Encounter Details Date Type Department Care Team (Late st Contact Info) Description 08/09/2019 6:59 AM CDT Anesthesia Event [facility] [address] Stephanie Arreaga DO [address] [facility] [address] [place] [address] Anesthesia Record Procedure Summary Procedure Name Responsible Anesthesiologist Anesthesia Start Time Anesthesia Stop Time COLONOSCOPY WITH polypectomy of sigmoid and rectum via hot forcep Stephanie Arreaga DO 08/09/19 0659 08/09/19 0728 Events Date Time Event Comment 08/09/2019 0642 0642 AN Anesthesia Prepped 0643 AN MEDICAL RECORDS RECEPTIONIST Prepped 0659 An Start Patient ID and consent checked and patient reassessed. 0659 An Start Data 0659 Nasal Cannula Applied 0659 Preoxygenation 0703 An Induction 0725 An Emergence 0726 Post Anesthetic Care Handoff I completed my handoff to the receiving nurse during which we: 1. Identified the patient 2. Identified the responsible provider 3. Reviewed the pertinent medical history 4. Discussed the surgical course 5. Reviewed intra-op anesthesia management and issues during anesthesia 6. Set expectations for post-procedure period 7. Allowed opportunity for questions and acknowledgement of understanding. 0728 an stop data 0728 Nasal Cannula Removed 07 An Stop Meds Name Total lidocaine (PF) (XYLOCAINE) 2% injection 50 mg propofol (DIPRIVAN) 200 mg/20 mL injecti on 390 mg lactated ringers infusion 550 mL * Agents Name O2 N2O Air Ancillary O2 * Blood No blood administrations on file. Lines, Drains, and Airways Type Details Placement Removal Peripheral IV Placement Date: 08/09/19; Placement Time: 627; Placed Outside of This Facility?: No; Size: 20 G; Orientation: Right; Location: Forearm; Site Prep: Chlorhexidine; Local Anesthetic: None; Inserted By: Naomie Wolf RN; Insertion attempts: 1; Ultrasound-guided Placement?: No; Patient Tolerance: Tolerated well; Removal Date: 08/09/19; Removal Time: 075; Removal Reason: Patient Discharged 08/09/19 0628 by Naomie Wolf RN 08/09/19 075 by Francine Diaz RN Supraglottic Airway Placement Date: 08/09/19; Placement Time: 06; Airway Device: Nasal prong; Removal Date: 08/09/19; Removal Time: 0728 08/09/19 0659 by Sandra Duarte CRNA 08/09/19 0728 by Sandra Duarte CRNA documented in this encounter Social History Tobacco [...] Segundo RN Active documented in this encounter OR Notes * Anesthesia Postprocedure Evaluation - Stephanie Arreaga DO - 08/09/2019 7:50 AM CDT Anesthesia Post-op Note Maria Del Carmen Ray Procedure(s): COLONOSCOPY WITH polypectomy of sigmoid and rectum via hot forcep (N/A ) Anesthesia type: general Vitals: 08/09/19 0750 BP: 126/81 Vitals: 08/09/19 0750 Pulse: 67 Vitals: 08/09/19 0750 Resp: 20 Vitals: 08/09/19 0737 Temp: 36.3 ??C Vitals: 08/09/19 0750 SpO2: 97% Patient Location: Phase II/Outpatient Level of Consciousness: awake, oriented and alert Pain Management: adequate analgesia Airway Patency: patent Respiratory Status: acceptable Cardiovascular Status: acceptable Post-Op Nausea: none Postoperative Hydration: euvolemic Complications: no anesthesia complication * Anesthesia Postprocedure Evaluation - Stephanie Arreaga DO - 08/09/2019 7:40 AM CDT Anesthesia Post-op Note Maria Del Carmen Ray Procedure(s): COLONOSCOPY WITH polypectomy of sigmoid and rectum via hot forcep (N/A ) Anesthesia type: general Vitals: 08/09/19 0750 BP: 126/81 Vitals: 08/09/19 0750 Pulse: 67 Vitals: 08/09/19 0750 Resp: 20 Vitals: 08/09/19 0737 Temp: 36.3 ??C Vitals: 08/09/19 0750 SpO2: 97% Patient Location: Other Level of Consciousness: awake, oriented and alert Pain Management: adequate analgesia Airway Patency: patent Respiratory Status: acceptable Cardiovascular Status: acceptable and hemodynamically stable Post-Op Nausea: none Postoperative Hydration: euvolemic Complications: no anesthesia complication * Anesthesia Preprocedure Evaluation - Stephanie Arreaga DO - 08/09/2019 6:29 AM CDT Anesthesia ROS/MED History Reviewed: Patient summary , Nursing notes , Family history anesthesia, Anesthesia history , Medications , Labs , Images/Studies , Unchecked boxes are not applicable Pre-Anesthetic State: alert, awake and responds appropriately Pulmonary (+) recent URI, (sinus discharge) Cardiovascular (+) hypertension Neuro/Psych neg neuro/psych ROS (+) substance use, (alcohol use) Comments: Drinks daily GI/Hepatic/Renal (+) GERD, (well controlled) Endo/Other (+) obese GENERAL COMMENTS -- Amoxicillin -- Rash Past Medical History: No date: Diverticulitis No date: Onychomycosis No date: Scabies No date: Tinea corporis No date: Tinea cruris Past Surgical History: No date: APPENDECTOMY No date: HYSTERECTOMY Physical Evaluation Airway Mallampati: II TM Distance: >3 FB Neck ROM: normal Dental No notable dental history Pulmonary Pulmonary exam normal Breath sounds clear to auscultation Cardiovascular Rhythm: regular Rate: normal Cardiovascular exam normal Anesthesia Plan ASA 3 Intravenous Induction Anesthesia type: general Discussed potential risks of General Anesthesia including but not limited to corneal abrasion, visual impairment or visual loss, mouth injury, dental damage, sore throat, hoarseness, esophageal injury, awareness under anesthesia, nerve injury due to positioning, aspiration, pneumonia, stroke, cardiac event, adverse drug reactions and . Tiva anesthetic planned and discussed. Possible GA with ETT as needed. Informed Consent Anesthetic plan and risks discussed with patient of whom consent was obtained. . documented in this encounter Plan of Treatment Not on file documented as of this encounter Visit Diagnoses Not on filedocumented in this encounter Administered Medications Inactive Administered Medications - up to 3 most recent administrations Medication Order MAR Action Action Date Dose Rate Site lactated ringers infusion at 10 mL/hr, Intravenous, Continuous, Starting on Tahira 08/09/19 at 0700, Until Tahira 08/09/19 at 1022, Infuse at TKO rate, Pre-Op New Bag 08/09/2019 6:59 AM CDT lidocaine (PF) (XYLOCAINE) 2 % injection Intravenous, PRN, Starting on Tahira 08/09/19 at 0703, Until Tahira 08/09/19 at 0728, Anesthesia Intra-Op Given 08/09/2019 7:03 AM CDT 50 mg propofol (DIPRIVAN) IV bolus Intravenous, PRN, Starting on Tahira 08/09/19 at 0703, Until Tahira 08/09/19 at 0728, Anesthesia Intra-Op Given 08/09/2019 7:22 AM CDT 30 mg Given 08/09/2019 7:20 AM CDT 30 mg Given 08/09/2019 7:18 AM CDT 20 mg documented in this encounter
--- OUTSIDE RECORDS SUMMARY | 2024-11-04 23:03 | XMS_ITS | Encounter Summary ---
Author Organization [facility] Address [facility] [facility] [place] [address] [place] [address] Care Team Providers Care Cracker And Cookie Machine Operator Name Role Phone Unavailable Primary Care Provider Unavailabl e Encounter Details Date Type Department Care Team (Late st Contact Info) Description 06/06/2019 Hospital Follow-up Call [facility] Med/Surg [address] [place] [address] Precious Freedman RN Social History Tobacco Use Types Packs/Day Years [...]
--- OUTSIDE RECORDS SUMMARY | 2024-11-04 23:03 | XMS_ITS | Encounter Summary ---
Author Organization [facility] Address [address] [place] [address]. [place], [place] [id number] [place] [address] Care Team Providers Care Insurance Agency Sales Manager Name Role Phone Unavailable Primary Care Provider Unavailabl e Encounter Details Date Type Department Care Team (Latest Contact Info) Description 10/17/2017 Abstract [facility] Social History Tobacco Use Types [...]
--- OUTSIDE RECORDS SUMMARY | 2024-11-04 23:03 | XMS_ITS | Encounter Summary ---
Author Organization [facility] Address [address] [place] [address]. [place] [address] [place] [address] Care Team Providers Care Scenario Writer Name Role Phone Unavailable Primary Care Provider Unavailabl e Reason for Visit * Reason Onset Date Comments Medication 06/21/2019 Encounter Details Date Type Department Care Team (Late st Contact Info) Description 06/21/2019 Telephone [facility] Medical Group Family and Sports Medicine - [place] [address] [place] [phone] 45 Rose Marie Ramirez, JUAN JOSE [address] [place] [address] Medication Social History Tobacco Use Types Packs/Day Years [...] Progress Notes * Amy Lambert MA - 06/21/2019 12:41 PM CDT Can I send this in? * Kiki Newell - 06/21/2019 12:34 PM CDT She just finished a heavy round of antibiotics prescribed by the ER at [facility]. Itching, doughy, burning. Monistat is not helping * Amy Lambert MA - 06/21/2019 11:59 AM CDT Left VM for pt to call me back, Rose Marie has never prescribed this medication, I need to know her symptoms, and what she thinks she has. If it is a new condition she needs to see same day. * Kiki Newell - 06/21/2019 10:14 AM CDT Refill request Maria Del Carmen Ray a patient of Rose Marie Ramirez requests a refill of pt needs Diflucan The patient would like this sent to the following pharmacy: [id number] - [place], [place] - [address] [facility] [address] [facility] [id number] The next office visit: Next visit with ROSE MARIE RAMIREZ in FAMILY PRACTICE is on: No match found The last office visit: Last visit with ROSE MARIE RAMIREZ in FAMILY PRACTICE was on: 06/19/2019 in [facility] documented in this encounter Plan of Treatment Not on file documented as of this encounter Visit Diagnoses Diagnosis Catalina vaginitis- Primary Candidiasis of vulva and vagina documented in this encounter
--- OUTSIDE RECORDS SUMMARY | 2024-11-04 23:03 | XMS_ITS | Encounter Summary ---
Author Organization [facility] Address [facility]. [place], [place] [address] [place] [address] Care Team Providers Care Plastic Parts Fabricator Trimmer Name Role Phone Unavailable Primary Care Provider Unavailabl e Encounter Details Date Type Department Care Team (Latest Contact Info) Description 01/04/2020 Travel Social History Tobacco Use Types Packs/Day [...]
--- OUTSIDE RECORDS SUMMARY | 2024-11-04 23:03 | XMS_ITS | Encounter Summary ---
Author Organization [facility] Address [address] [place] [address]. [place] [address] [place] [address] Care Team Providers Care Combination Building Inspector Name Role Phone Unavailable Primary Care Provider Unavailabl e Encounter Details Date Type Department Care Team (Latest Contact Info) Description 05/07/2019 7:46 PM CDT - 05/07/2019 11:59 PM CDT Hospital Encounter [facility] [place] [address] Rose Marie Norton, JUAN JOSE [address] [place] [address] Discharge Disposition: Home or Self Care (Routine [...] Binge Drinking Not on file 04/08 Comments Unknown Sex and Gender Information Value [...] for 4 days. 6 tablet 05/07/2019 05/12/2019 dexlansoprazole (DEXILANT) 60 MG capsule Take 60 mg by mouth daily. 05/12/2019 guaifenesin-codei ne (CHERATUSSIN AC) 100-10 MG/5ML syrupIndications: Bronchitis Take 5 mLs by mouth every 4 (four) hours as needed for Cough. 180 mL 05/07/2019 05/12/2019 documented as of this encounter Plan of Treatment Not on file documented as of this encounter Procedures Procedure Name Priority Date/Time Associated Diagnosis Comments COMPREHENSIVE METABOLIC PANEL Routine 05/07/2019 9:00 AM CDT Essential hypertension documented in this encounter Results * (ABNORMAL) COMPREHENSIVE METABOLIC PANEL (05/07/2019 9:00 AM CDT) GLUCOSE 89 70 - 99 MG/DL 05/07/2019 8:07 PM CDT [facility] BUN 16 7 - 18 MG/DL 05/07/2019 8:07 PM CDT [facility] CREATININE S/P/B 0.91 0.55 - 1.02 MG/DL 05/07/2019 8:07 PM CDT [facility] SODIUM S/P/B 141 136 - 145 MMOL/L 05/07/2019 8:07 PM CDT [facility] POTASSIUM S/P/B 4.3 3.5 - 5.1 MMOL/L 05/07/2019 8:07 PM CDT [facility] CHLORIDE S/P/B 110(H) 100 - 108 MMOL/L 05/07/2019 8:07 PM CDT [facility] CO2 25.8 21 - 32 MMOL/L 05/07/2019 8:07 PM CDT [facility] CALCIUM S/P/B 8.5 8.5 - 10.1 MG/DL 05/07/2019 8:07 PM CDT [facility] BILIRUBIN TOTAL S/P/B 0.3 0.2 - 1.2 MG/DL 05/07/2019 8:07 PM CDT [facility] TOTAL PROTEIN S/P/B 5.4(L) 6.4 - 8.2 G/DL 05/07/2019 8:07 PM CDT [facility] ALBUMIN S/P/B 2.9(L) 3.4 - 5.0 G/DL 05/07/2019 8:07 PM CDT [facility] AST 18 15 - 37 U/L 05/07/2019 8:07 PM CDT [facility] ALT 21 14 - 55 U/L 05/07/2019 8:07 PM T [facility] ALKALINE PHOSPHATASE S/P/B 66 50 - 136 U/L 05/07/2019 8:07 PM T [facility] ANION GAP 5.2 5 - 15 MMOL/L 05/07/2019 8:07 PM T [facility] BUN CREATININE RATIO 17.5 6 - 26 05/07/2019 8:07 PM T [facility] A/G RATIO 1.2 1.0 - 2.0 RATIO 05/07/2019 8:07 PM [facility] EGFR NON-AFR. AMER. 78(L) >90 ML/MIN/1.7 3 M2 05/07/2019 8:07 PM T [facility] EGFR AFR. AMER. >90 >90 ML/MIN/1.7 3 M2 05/07/2019 8:07 PM T [facility] Comment: NOTE: eGFR is not calculated for patients <18 years of age. This is an estimated GFR (CKD EPI) and should not be used for calculating drug doses. 05/07/2019 9:00 AM CDT Rose Marie Norton NP LABORATORY Final Result [facility] [address] [place] [address], documented in this encounter Visit Diagnoses Diagnosis Essential hypertension Unspecified essential hypertension documented in this encounter
--- OUTSIDE RECORDS SUMMARY | 2024-11-04 23:03 | XMS_ITS | Encounter Summary ---
Author Organization [facility] Address [address] [place] [address]. [place], [place] [address] [place] [address] Care Team Providers Care Assistant Laboratory Director Name Role Phone Unavailable Primary Care Provider Unavailabl e Reason for Visit * Reason Comments Lab (SCAN) BLOOD BANK Encounter Details Date Type Department Care Team (Late st Contact Info) Description 12/26/2018 Scan HEALTH INFO SRVCS Scanned, Documents Lab (SCAN) (BLOOD BANK) Social History Tobacco Use Types Packs/Day Years [...] Associated Diagnosis Comments OUTSIDE LAB (SCAN ORDER) Routine 12/26/2018 documented in this encounter Results * OUTSIDE LAB (12/26/2018) 12/26/2018 us Documents Scanned SCANNING Final Result documented in this encounter Visit Diagnoses Not on filedocumented in this encounter
--- OUTSIDE RECORDS SUMMARY | 2024-11-04 23:03 | XMS_ITS | Encounter Summary ---
Author Organization [facility] Address [address] [place] [address]. [place], [place] [address] [place] [address] Care Team Providers Care Wood Sash And Frame Carpenter Name Role Phone Unavailable Primary Care Provider Unavailabl e Encounter Details Date Type Department Care Team (Latest Contact Info) Description 10/25/2017 Abstract [facility] Medical Group Social History Tobacco [...]
--- OUTSIDE RECORDS SUMMARY | 2024-11-04 23:03 | XMS_ITS | Encounter Summary ---
Author Organization [facility] Address [address] [place] [address]. [place], [place] [id number] [place] [address] Care Team Providers Care Compliance Manager Name Role Phone None, Provider Primary Care Provider Juanis Brito NP Primary Care Provider [phone] Encounter Details Date Type Department Care Team (Latest Contact Info) Description 09/12/2018 Abstract [facility] Medical Group , Tam ConversionMD Social History Tobacco Use Types Packs/Day Years [...] Rule Out 01/08/2024 01/08/2024 01/08/2024 2:18 PM NECKTIE CENTRALIZING MACHINE OPERATOR COVID-19 Rule Out 10/28/2024 10/28/2024 10/28/2024 10:10 PM NECKTIE CENTRALIZING MACHINE OPERATOR documented as of this encounter Care Teams Compliance Manager Relationship Specialty Start Date End Date None, Provider, PCP - General 05/06/21 10/27/24 Juanis Richards NP [address] [place] [address] PCP - General Nurse Practitioner Family 10/28/24 documented as of this encounter
--- OUTSIDE RECORDS SUMMARY | 2024-11-04 23:03 | XMS_ITS | Encounter Summary ---
Author Organization [facility] Address [address] [place] [address]. [place] [address] [place] [address] Care Team Providers Care Counseling Psychologist Name Role Phone Unavailable Primary Care Provider Unavailabl e Encounter Details Date Type Department Care Team (Latest Contact Info) Description 06/23/2017 Abstract [facility] Medical Group Rose Marie Norton, LIAISON INSPECTION LABORATORY ASSISTANT [address] [place] [address] Social History Tobacco Use Types Packs/Day Years [...]
--- OUTSIDE RECORDS SUMMARY | 2024-11-04 23:03 | XMS_ITS | Encounter Summary ---
Author Organization [facility] Address [address] [place] [address]. [place] [address] [place] [address] Care Team Providers Care Php Developer Name Role Phone Unavailable Primary Care Provider Unavailabl e Encounter Details Date Type Department Care Team (Latest Contact Info) Description 12/08/2018 6:39 PM PROCEDURAL NURSE - 12/08/2018 11:59 PM [facility] Hospital Encounter [facility] [place] [address] Rose Marie Norton NP [address] [place] [address] Discharge Disposition: Home or Self Care (Routine [...] 4 (four) hours as needed. 10/07/2017 12/18/2018 ciprofloxacin 500 MG tablet TK 1 T PO Q 12 H 0 08/25/2018 12/18/2018 fluconazole 150 MG tablet 0 10/17/2018 12/18/2018 furosemide 20 MG tablet TK 1 T PO QD 0 03/14/2018 12/18/2018 gentamicin 0.3 % ophthalmic solution INSTILL 1 DROP INTO THE AEY Q 6 H UNTIL REDNESS IS GONE 0 08/08/2018 12/18/2018 ibuprofen 800 MG tablet Take 1 tablet by mouth. 11/14/2015 12/18/2018 pantoprazole 40 MG tablet Take 40 mg by mouth daily. 12/18/2018 triamterene-hydro chlorothiazide 37.5-25 MG capsule Take 1 capsule by mouth daily. 07/03/2015 12/18/2018 documented as of this encounter Plan of Treatment Not on file documented as of this encounter Procedures Procedure Name Priority Date/Time Associated Diagnosis Comments TSH W/REFLEX Routine 12/08/2018 9:28 AM PROCEDURAL NURSE Essential hypertension COMPREHENSIVE METABOLIC PANEL Routine 12/08/2018 9:28 AM PROCEDURAL NURSE Essential hypertension LIPID PANEL Routine 12/08/2018 9:28 AM PROCEDURAL NURSE Essential hypertension CBC W/DIFF AUTOMATED Routine 12/08/2018 9:28 AM PROCEDURAL NURSE Essential hypertension documented in this encounter Results * TSH W/REFLEX (12/08/2018 9:28 AM PROCEDURAL NURSE) TSH 1.800 0.358 - 3.74 uIU/ML 12/08/2018 7:45 PM PROCEDURAL NURSE [facility] Comment: HIGH DOSES OF BIOTIN MAY INTERFERE WITH THIS TEST RESULT. CORRELATION TO CLINICAL HISTORY AND PRESENTATION RECOMMENDED. FREE T4 NOT INDICATED 12/08/2018 9:28 AM PROCEDURAL NURSE us Rose Marie Norton GUEST SERVICES ATTENDANT LABORATORY Final Result [facility] [address] [place] [address], [place] [phone] * (ABNORMAL) LIPID PANEL (12/08/2018 9:28 AM PROCEDURAL NURSE) CHOLESTEROL 182 <200 MG/DL 12/08/2018 7:45 PM [facility] TRIGLYCERIDES 96 <150 MG/DL 12/08/2018 7:45 PM [facility] HDL 57 >40.0 MG/DL 12/08/2018 7:45 PM [facility] LDL (CALCULATED) 106(H) <100 MG/DL 12/08/2018 7:45 PM [facility] NON HDL CHOLESTEROL 125 <130 MG/DL 12/08/2018 7:45 PM [facility] CHOL/HDL RATIO 3.2 0.0 - 4.5 12/08/2018 7:45 PM [facility] VLDL CALCULATION 19 5 - 55 MG/DL 12/08/2018 7:45 PM [facility] LIPID INTERPRETATION 12/08/2018 7:45 PM [facility] Comment: [facility] REPORT RECOMMENDATIONS: [...] ?LDL ? >=160 ?>=130 12/08/2018 9:28 AM PROCEDURAL NURSE Rose Marie Norton GUEST SERVICES ATTENDANT LABORATORY Final Result Performing Organization Address City/State/RUST Co de Phone Number [facility] [address] [place] [address], * (ABNORMAL) COMPREHENSIVE METABOLIC PANEL (12/08/2018 9:28 AM PROCEDURAL NURSE) GLUCOSE 87 70 - 99 MG/DL 12/08/2018 7:45 PM PROCEDURAL NURSE [facility] BUN 18 7 - 18 MG/DL 12/08/2018 7:45 PM [facility] CREATININE S/P/B 0.96 0.55 - 1.02 MG/DL 12/08/2018 7:45 PM [facility] SODIUM S/P/B 145 136 - 145 MMOL/L 12/08/2018 7:45 PM [facility] POTASSIUM S/P/B 4.4 3.5 - 5.1 MMOL/L 12/08/2018 7:45 PM [facility] CHLORIDE S/P/B 111(H) 100 - 108 MMOL/L 12/08/2018 7:45 PM [facility] CO2 27.6 21 - 32 MMOL/L 12/08/2018 7:45 PM [facility] CALCIUM S/P/B 8.3(L) 8.5 - 10.1 MG/DL 12/08/2018 7:45 PM [facility] BILIRUBIN TOTAL S/P/B 0.2 0.2 - 1.2 MG/DL 12/08/2018 7:45 PM [facility] TOTAL PROTEIN S/P/B 6.3(L) 6.4 - 8.2 G/DL 12/08/2018 7:45 PM [facility] ALBUMIN S/P/B 3.4 3.4 - 5.0 G/DL 12/08/2018 7:45 PM [facility] AST 14(L) 15 - 37 U/L 12/08/2018 7:45 PM [facility] ALT 23 14 - 55 U/L 12/08/2018 7:45 PM [facility] ALKALINE PHOSPHATASE S/P/B 94 50 - 136 U/L 12/08/2018 7:45 PM [facility] ANION GAP 10.8 8 - 20 MMOL/L 12/08/2018 7:45 PM [facility] BUN CREATININE RATIO 18.8 6 - 26 12/08/2018 7:45 PM [facility] A/G RATIO 1.2 1.0 - 2.0 RATIO 12/08/2018 7:45 PM [facility] EGFR NON-AFR. AMER. 73(L) >90 ML/MIN/1.7 3 M2 12/08/2018 7:45 PM [facility] EGFR AFR. AMER. 85(L) >90 ML/MIN/1.7 3 M2 12/08/2018 7:45 PM [facility] Comment: NOTE: eGFR is not calculated for patients <18 years of age. This is an estimated GFR (CKD EPI) and should not be used for calculating drug doses. 12/08/2018 9:28 AM PROCEDURAL NURSE Rose Marie Norton NP LABORATORY Final Result [facility] [address] [place] [address], * (ABNORMAL) CBC W/DIFF AUTOMATED (12/08/2018 9:28 AM PROCEDURAL NURSE) WBC 9.2 4.5 - 11.0 x10'3/uL 12/08/2018 7:25 PM [facility] RBC 4.54 4.20 - 5.40 x10'6/uL 12/08/2018 7:25 PM [facility] HGB 12.9 12.0 - 16.0 G/DL 12/08/2018 7:25 PM [facility] HCT 42.0 38.0 - 48.0 % 12/08/2018 7:25 PM PROCEDURAL NURSE [facility] MCV 92.5 80.0 - 94.0 FL 12/08/2018 7:25 PM [facility] MCH 28.4 27.0 - 31.0 PG 12/08/2018 7:25 PM [facility] MCHC 30.7(L) 32.0 - 36.0 G/DL 12/08/2018 7:25 PM [facility] RDW 14.2 11.5 - 14.5 % 12/08/2018 7:25 PM [facility] PLT 314 130 - 400 x10'3/uL 12/08/2018 7:25 PM [facility] MPV 10.5 9.3 - 12.2 FL 12/08/2018 7:25 PM [facility] DIFFERENTIAL TYPE AUTOMATED DIFFERENTIAL 12/08/2018 7:25 PM [facility] NEUTROPHILS % 63.9 % 12/08/2018 7:25 PM [facility] LYMPHOCYTES % 28.9 % 12/08/2018 7:25 PM [facility] MONOCYTES % 4.3 % 12/08/2018 7:25 PM [facility] EOSINOPHILS 1.8 % 12/08/2018 7:25 PM [facility] BASOPHILS 0.9 % 12/08/2018 7:25 PM [facility] IMMATURE GRANS % 0.2(H) 0 % 12/08/19 19 7:25 PM [facility] ABS. NEUTROPHILS TOTAL 5.90 1.80 - 7.70 x10'3/uL 12/08/2018 7:25 PM [facility] ABS. LYMPHOCYTES 2.67 1.00 - 4.80 x10'3/uL 12/08/2018 7:25 PM [facility] ABS. MONOCYTES 0.40 0.24 - 0.86 x10'3/uL 12/08/2018 7:25 PM [facility] ABS. EOSINOPHILS 0.17 0.04 - 0.36 x10'3/uL 12/08/2018 7:25 PM [facility] ABS. BASOPHILS 0.08 0.01 - 0.08 x10'3/uL 12/08/2018 7:25 PM [facility] ABS. IMMATURE GRANULOCYTES 0.02 0.00 - 0.03 x10'3/uL 12/08/2018 7:25 PM [facility] 12/08/2018 9:28 AM PROCEDURAL NURSE Rose Marie Norton NP LABORATORY Final Result [facility] [address] [place] [address], documented in this encounter Visit Diagnoses Diagnosis Essential hypertension Unspecified essential hypertension documented in this encounter
--- OUTSIDE RECORDS SUMMARY | 2024-11-04 23:03 | XMS_ITS | Encounter Summary ---
Author Organization [facility] Address [address] [place] [address]. [place] [address] [place] [address] Care Team Providers Care Instrument Fitter Name Role Phone Unavailable Primary Care Provider Unavailabl e Reason for Visit * Reason Comments Weight Problem increased appetite, weight gain, would like phentermine Encounter Details Date Type Department Care Team (Late st Contact Info) Description 01/04/2020 1:00 PM MAGICIAN/ILLUSIONIST Office Visit [facility] Medical Group Family and Sports Medicine - [place] [address] [place] [address] Rose Marie Ramirez NP [address] [place], [place] [id number] Weight Problem (increased appetite, weight gain, would like phentermine) Social History Tobacco Use Types Packs/Day Years [...] Sign Reading Time Taken Comments Blood Pressure 126/84 01/04/2020 12:55 PM MAGICIAN/ILLUSIONIST Pulse 66 01/04/2020 12:55 PM MAGICIAN/ILLUSIONIST Temperature - - Respiratory Rate - - Oxygen Saturation 96% 01/04/2020 12:55 PM MAGICIAN/ILLUSIONIST Inhaled Oxygen Concentration - - Weight 114.8 kg (253 lb 2 oz) 01/04/2020 12:55 P M MAGICIAN/ILLUSIONIST Height 162.6 cm (5' 4 ) 01/04/2020 12:55 PM MAGICIAN/ILLUSIONIST Body Mass Index 43.45 01/04/2020 12:55 PM MAGICIAN/ILLUSIONIST documented in this encounter Functional Status * [...] Date Author Status No 06/01/2019 2:55 AM CDTeja He RN Active documented in this encounter Progress Notes * Rose Marie Ramirez NP - 01/04/2020 1:00 PM CST Images from the original note were not included. [facility] [address], [address] [place] [address] OFFICE VISIT NOTE Encounter Date: 01/04/2020 Chief Complaint: Maria Del Carmen Ray is a 44-year-old female here for Weight Problem (increased appetite, weight gain, would like phentermine) HPI Here to discuss weight loss medications. She is starting a diet and exercise program and would like something to help her appetite. Review of Systems Constitutional: Negative. Respiratory: Negative. Cardiovascular: Negative. Patient Active Problem [...] performed by Kathy Bailey MD at [facility] ??? HYSTERECTOMY Family History Problem Relation [...] Last attempt to quit: 08/09/2010 Years since quittin.4 ??? Smokeless tobacco: [...] file Gets together: Not on file Attends temple service: Not on file Active member of [...] Outpatient Medications Medication Sig Dispense Refill ??? Phentermine HCl 37.5 MG Cap Take 1 tablet by mouth every morning before breakfast. 30 capsule 0 No current facility-administered medications for this visit. Allergies Allergen Reactions ??? Amoxicillin Rash Objective: Vitals: 01/04/20 1255 BP: 126/84 Pulse: 66 SpO2: 96% Body mass index is 43.45 kg/m??. Physical Exam Constitutional: She is well-developed, well-nourished, and in no distress. Cardiovascular: Normal rate, regular rhythm and normal heart sounds. Pulmonary/Chest: Effort normal and breath sounds normal. Psychiatric: Mood and affect normal. Assessment/Plan: 1. Class 3 severe obesity due to excess calories without serious comorbidity with body mass index (BMI) of 40.0 to 44.9 in adult ([facility]) - Phentermine HCl 37.5 MG Cap; Take 1 tablet by mouth every morning before breakfast. Dispense: 30 capsule; Refill: 0 ROSE MARIE RAMIREZ NP CIAN/ILLUSIONIST documented in this encounter Plan of Treatment Not on file documented as of this encounter Visit Diagnoses Diagnosis Class 3 severe obesity due to excess calories without serious comorbidity with body mass index (BMI) of 40.0 to 44.9 in adult ([facility])- Primary documented in this encounter
--- OUTSIDE RECORDS SUMMARY | 2024-11-04 23:03 | XMS_ITS | Encounter Summary ---
Author Organization [facility] Address [address] [place] [address]. [place] [address] [place] [address] Care Team Providers Care Maintenance Plumber Name Role Phone Unavailable Primary Care Provider Unavailabl e Reason for Visit * Reason Onset Date Comments Medication Request 06/09/2020 Encounter Details Date Type Department Care Team (Late st Contact Info) Description 06/09/2020 Telephone [facility] Medical Group Family and Sports Medicine - [place] [address] [place] [address] Rose Marie Norton, JUAN JOSE [address] [place] [address] Medication Request Social History Tobacco Use Types Packs/Day [...] Progress Notes * Amy Lambert MA - 06/09/2020 2:47 PM CDT I called the pt and let her know what trent said. There were no other questions or concerns. * NIHARIKA Kelly - 06/09/2020 2:30 PM CDT No inhaler, as this can make the virus aerolize. I can recommend, delsym cough syrup OTC. * Amy Lambert MA - 06/09/2020 1:59 PM CDT Please advise what medication you would recommend * [place] Goodrich - 06/09/2020 1:54 PM CDT Patient tested positive for COVID and is asking for a medication to treat her cough. She is asking for a medication like an inhaler to help with breathing. Please call to discuss. documented in this encounter Plan of Treatment Not on file documented as of this encounter Visit Diagnoses Not on filedocumented in this encounter
--- OUTSIDE RECORDS SUMMARY | 2024-11-04 23:03 | XMS_ITS | Encounter Summary ---
Author Organization [facility] Address [address] [place] [address]. [place], [place] [address] [place] [address] Care Team Providers Care Medical Assistant Dermatology Name Role Phone Unavailable Primary Care Provider Unavailabl e Reason for Visit * Reason Comments Lab (SCAN) Encounter Details Date Type Department Care Team (Latest Contact Info) Description 06/19/2020 Scan [facility] Scanned, Documents [...] Comments OUTSIDE LAB COVID-19 (SCAN ORDER) Routine 06/19/2020 documented in this encounter Results * OUTSIDE LAB COVID-19 (SCAN) (06/19/2020) CORONAVIRUS SARS COV 2 PCR (RESP) NOT DETECTED NOT DETECTED [facility] 06/19/2020 us Documents Scanned SCANNING Final Result [facility] documented in this encounter Visit Diagnoses Not on filedocumented in this encounter
--- OUTSIDE RECORDS SUMMARY | 2024-11-04 23:03 | XMS_ITS | Encounter Summary ---
Author Organization [facility] Address [address] [place] [address]. [place], [place] [id number] [place] [address] Care Team Providers Care Wood Milling Machine Operator Name Role Phone Unavailable Primary Care Provider Unavailabl e Reason for Visit * Reason Comments Lab (SCAN) hematology Encounter Details Date Type Department Care Team (Late st Contact Info) Description 12/22/2018 Scan HEALTH INFO SRVCS Scanned, Documents Lab (SCAN) (hematology) Social History Tobacco Use Types Packs/Day Years [...] Diagnosis Comments OUTSIDE LAB (SCAN ORDER) Routine 12/22/2018 documented in this encounter Results * OUTSIDE LAB (12/22/2018) 12/22/2018 us Documents Scanned SCANNING Final Result documented in this encounter Visit Diagnoses Not on filedocumented in this encounter
--- OUTSIDE RECORDS SUMMARY | 2024-11-04 23:03 | XMS_ITS | Encounter Summary ---
Author Organization [facility] Address [address] [place] [address]. [place] [address] [place] [address] Care Team Providers Care Boat Builder Name Role Phone Unavailable Primary Care Provider Unavailabl e Encounter Details Date Type Department Care Team (Latest Contact Info) Description 12/14/2018 4:59 [address]RE[address]CAR REPAIRER HELPER - 12/14/2018 11:59 PM [facility] Hospital Encounter [facility] [address] [id number] Rose Marie Norton, JUAN JOSE [address] [place] [address] Discharge Disposition: Home or Self Care (Routine [...] Associated Diagnosis Comments XR CHEST PA+LAT Routine 12/14/2018 5:08 PM STREETCAR REPAIRER HELPER Cough documented in this encounter Results * XR CHEST PA+LAT (12/14/2018 5:08 PM STREETCAR REPAIRER HELPER) Anatomical Region Laterality Modality Chest Radiographic Rosi ging 12/14/2018 7:34 PM STREETCAR REPAIRER HELPER Impressions 12/14/2018 7:35 PM STREETCAR REPAIRER HELPER =====IMPRESSION:===== No acute or focal infiltrates. Narrative 12/14/2018 7:35 PM STREETCAR REPAIRER HELPER Examination: Chest x-ray 2 view Exam date/time: [...] acute or focal infiltrates. Rose Marie Norton NP GENERAL IMAGING Final Result documented in this encounter Visit Diagnoses Diagnosis Cough documented in this encounter
--- OUTSIDE RECORDS SUMMARY | 2024-11-04 23:03 | XMS_ITS | Encounter Summary ---
Author Organization [facility] Address [address] [place] [address]. [place] [address] [place] [address] Care Team Providers Care Lumber Straightener Name Role Phone Unavailable Primary Care Provider Unavailabl e Reason for Visit * Reason Onset Date Comments Question 06/16/2020 Encounter Details Date Type Department Care Team (Late st Contact Info) Description 06/16/2020 Telephone [facility] Family and Sports Medicine - [place] [address] [place] [address] Rose Marie Norton, JUAN JOSE [address] [place] [address] Question Social History Tobacco Use Types Packs/Day [...] documented in this encounter Progress Notes * Sima Miles CMA - 06/17/2020 10:18 AM CDTAddended by: SIMA VILLASENOR on: 06/17/2020 10:18 AM Modules accepted: Orders * Sima Miles CMA - 06/17/2020 10:15 AM CDT Pt stated she does have a dry cough and feels like she has something is in her lungs and can not get it out. She is also requesting a test to see if her kidneys are infected. I ordered a UA and CMP for pt and informed her that CXR and lab order will ready for her to waste picker to take to [facility] * Rose Marie Norton NP - 06/16/2020 11:42 AM CDT She would be ill with fever, cough if had pneumonia. I see no reason to do these and expose yourself to radiation. I did order if she is insistent, will have to go to [facility] so will have to come waste picker printed orders. * Sima Miles CMA - 06/16/2020 9:51 AM CDT Pt called stating she recently tested positive for COVID and is feeling much better and is out of her quarantine window. She has not had any fevers and symptoms have subsided. Pt is requesting a CXR and a CBC to rule out pneumonia. She is concerned about her WBC level and wants to make sure her lungs are clear. Pt can be reached at [phone] documented in this encounter Plan of Treatment Not on file documented as of this encounter Visit Diagnoses Diagnosis Cough- Primary documented in this encounter
--- OUTSIDE RECORDS SUMMARY | 2024-11-04 23:03 | XMS_ITS | Encounter Summary ---
Author Organization [facility] Address [facility] [place] [address] [place] [address] Care Team Providers Care Supervisor Finishing Name Role Phone Unavailable Primary Care Provider Unavailabl e Reason for Referral * Consultation (Routine) - Closed Specialty Diagnoses / Procedures Referred By Veronica bonner Referred To Contact OTOLARYNGOLOGY Diagnoses Pharyngitis, unspecified etiology Rose Marie Norton HUMAN SERVICES ASSISTANT [address] [place] [address] Phone: tel: fax: Jose Antonio Jamil MD [address] [facility] [address] [place] [address] Phone: tel: fax: Referral ID Status Reason Start Date Expiration Date Visits Re quested Visits Authorized [id number] Closed 03/27/2020 04/26/2021 100 100 Reason for Visit * Reason Onset Date Comments Other 03/25/2020 still sore throa t Encounter Details Date Type Department Care Team (Late st Contact Info) Description 03/25/2020 Telephone [facility] Family and Sports Medicine - [employer] [address] [place] [address] Rose Marie Norton HUMAN SERVICES ASSISTANT [address] [place] [address] Other (still sore throat) Social History Tobacco Use Types Packs/Day Years [...] Progress Notes * Janett Miles CMA - 03/27/2020 2:15 PM CDT Pt informed. * Rose Marie Norton NP - 03/27/2020 12:08 PM CDT Referral is in * Cynthia Valdovinos MA - 03/27/2020 8:[address] Per pt Dr Iglesia ROMO says her COVID is negative, she will have them fax us results. Would like ENT referral to Dr Oswald fax: [phone] ph. [phone] * Rose Marie Norton NP - 03/27/2020 8:19 AM CDT Wait until her COVID is back. If negative she can go to ENT. * Lucina Santillan - 03/25/2020 2:12 PM CDT Pt was seen at a on 03/17 for possible strep and has been taking the medication as prescribed buther throat is not doing any better. She had a COVID test done yesterday but has not gotten results yet. She does not want to go to the [facility] office and would like to see if a referral to ENT could be an option. Please call her back at [phone] documented in this encounter Plan of Treatment Scheduled Referrals Name Type Priority Associated Diagnoses Orde r Schedule Ambulatory referral to ENT Referral Routine Pharyngitis, unspecified etiology Ordered: 03/27/2020 documented as of this encounter Visit Diagnoses Diagnosis Pharyngitis, unspecified etiology- Primary documented in this encounter
--- OUTSIDE RECORDS SUMMARY | 2024-11-04 23:03 | XMS_ITS | Encounter Summary ---
Author Organization [facility] Address [address] [place] [address]. [place], [place] [address] [place] [address] Care Team Providers Care Supervisor Sample Preparation Name Role Phone Unavailable Primary Care Provider Unavailabl e Encounter Details Date Type Department Care Team (Latest Contact Info) Description 03/15/2019 Scan HEALTH INFO SRVCS Scanned, Documents Social [...]
--- OUTSIDE RECORDS SUMMARY | 2024-11-04 23:03 | XMS_ITS | Encounter Summary ---
Author Organization [facility] Address [address] [place] [address]. [place], [place] [address] [place] [address] Care Team Providers Care Cat And Dog Bather Name Role Phone Unavailable Primary Care Provider Unavailabl e Encounter Details Date Type Department Care Team (Latest Contact Info) Description 12/27/2017 Abstract [facility] Medical Group Social History Tobacco Use [...]
--- OUTSIDE RECORDS SUMMARY | 2024-11-04 23:03 | XMS_ITS | Encounter Summary ---
Author Organization [facility] Address [address] [place] [address]. [place] [address] [place] [address] Care Team Providers Care Bowling Ball Grader And Marker Name Role Phone Unavailable Primary Care Provider Unavailabl e Reason for Visit * Reason Onset Date Comments Results 06/19/2020 Encounter Details Date Type Department Care Team (Late st Contact Info) Description 06/19/2020 Telephone [facility] Family and Sports Medicine - [place] [address] [place] [address] Rose Marie Norton, JUAN JOSE [address] [place] [address] Results Social History Tobacco Use Types Packs/Day [...] Progress Notes * Amy Lambert MA - 06/19/2020 1:43 PM CDT Informed pt of results. There were no questions or concerns. Chest xray * Kirstin Hernandez - 06/19/2020 1:10 PM CDT Patient called back, she is requesting her results this afternoon before we close. She is concernedshe has pneumonia and would like to start treating it if she does. * Amy Lambert MA - 06/19/2020 10:27 AM CDT Please advise * Hanh Aiken - 06/19/2020 10:05 AM CDT Pt complete xray on 06/17/20 [facility]. Requesting results as soon as possible. Pt called [facility] and pt was told we have to request the results, they will not send. documented in this encounter Plan of Treatment Not on file documented as of this encounter Visit Diagnoses Not on filedocumented in this encounter
--- OUTSIDE RECORDS SUMMARY | 2024-11-04 23:03 | XMS_ITS | Encounter Summary ---
Author Organization [facility] Address [address] [place] [address]. [place] [address] [place] [address] Care Team Providers Care Furniture Polisher Name Role Phone Unavailable Primary Care Provider Unavailabl e Encounter Details Date Type Department Care Team (Late st Contact Info) Description 12/15/2018 Orders Only [facility] Family and Sports Medicine - [place] [address] Jeana Laguerre, RN Social History Tobacco Use Types Packs/Day [...]
--- OUTSIDE RECORDS SUMMARY | 2024-11-04 23:03 | XMS_ITS | Encounter Summary ---
Author Organization [facility] Address [facility] [address] [place] [address] Care Team Providers Care Infant Nanny Name Role Phone Unavailable Primary Care Provider Unavailabl e Encounter Details Date Type Department Care Team (Late st Contact Info) Description 06/06/2019 Hospital Follow-up Call [facility] Med/Surg [address] [place] [address] Precious Freedman RN Social History [...]
--- OUTSIDE RECORDS SUMMARY | 2024-11-04 23:03 | XMS_ITS | Encounter Summary ---
Author Organization [facility] Address [facility] [place] [address] [place] [address] Care Team Providers Care Waist Cutter Name Role Phone Unavailable Primary Care Provider Unavailabl e Encounter Details Date Type Department Care Team (Late st Contact Info) Description 06/06/2019 Hospital Follow-up Call [facility] Med/Surg [address] [place] [address] Precious Freedman RN Social History [...] documented in this encounter Progress Notes * Precious Freedman RN - 06/06/2019 3:20 PM CDT Message left past third attempt documented in this encounter Plan of Treatment Not on file documented as of this encounter Visit Diagnoses Not on filedocumented in this encounter
--- OUTSIDE RECORDS SUMMARY | 2024-11-04 23:03 | XMS_ITS | Encounter Summary ---
Author Organization [facility] Address [address] [place] [address]. [place], [place] [address] [place] [address] Care Team Providers Care Riveting Machine Operator Tape Control Name Role Phone Unavailable Primary Care Provider Unavailabl e Encounter Details Date Type Department Care Team (Latest Contact Info) Description 10/13/2017 Abstract [facility] Medical Group Social History Tobacco Use Types [...]
--- OUTSIDE RECORDS SUMMARY | 2024-11-04 23:03 | XMS_ITS | Encounter Summary ---
Author Organization [facility] Address [facility] [place] [address] [place] [address] Care Team Providers Care Operations Analyst Name Role Phone Unavailable Primary Care Provider Unavailabl e Encounter Details Date Type Department Care Team (Late st Contact Info) Description 06/21/2019 Orders Only [facility] Family and Sports Medicine - [place] [address] [place] [address] Rose Marie Norton, PRINT SHOP MANAGER [address] [place] [address] Social History Tobacco Use Types Packs/Day Years [...] Associated Diagnosis Comments URINE BACTERIA CULTURE Routine 06/19/2019 2:10 PM CDT CBC W/DIFF AUTOMATED Routine 06/19/2019 2:10 PM CDT documented in this encounter Results * CULTURE URINE (06/19/2019 2:10 PM CDT) CULTURE RESULT [facility] Comment: ??CULTURE, URINE, ROUTINE ?MICRO NUMBER: ?[id number] ??TEST STATUS: ? FINAL ??SPECIMEN SOURCE: ?? NOT GIVEN ??SPECIMEN QUALITY: ??ADEQUATE ??RESULT: ?Three or more organisms present, each greater ? than 10,000 cu/mL. May represent normal patti ? contamination from external genitalia. No further ? testing is required. NO COLLECTION DATE RECEIVED. WE HAVE USED THE DATE THE SPECIMEN WAS RECEIVED BY THIS LABORATORY THE COLLECTION DATE. IF THIS IS INCORRECT, PLEASE CONTACT CLIENT SERVICES. PHONE NUMBER: [phone] 06/19/2019 2:10 PM CDT 06/20/2019 7:51 AM CDT Narrative [facility] - 06/21/2019 7:43 AM CDT FASTING: UNKNOWN Resulting Agency Comment Performing Organization Information: ?Site ID: [id number] ?Name: [facility] ?Address: [facility] [place] [address] ?Director: Lowell Cristina D.O., MPH Rose Marie Norton NP MICROBIOLOGY - GENERAL ORDERABLE S Final Result [facility] * CBC W/DIFF AUTOMATED (06/19/2019 2:10 PM CDT) WBC 9.7 3.8 - 10.8 Thousand/u L [facility] RBC 4.51 3.80 - 5.10 Million/uL [facility] HGB 13.4 11.7 - 15.5 g/dL [facility] HCT 41.0 35.0 - 45.0 % [facility] MCV 90.9 80.0 - 100.0 fL [facility] MCH (QHPE) 29.7 27.0 - 33.0 pg [facility] MCHC 32.7 32.0 - 36.0 g/dL [facility] RDW (QHPE) 14.0 11.0 - 15.0 % [facility] PLT 272 140 - 400 Thousand/u L [facility] MPV 9.8 7.5 - 12.5 fL [facility] ABS. NEUTROPHILS 6,092 1,500 - 7,800 cells/uL [facility] ABS. LYMPHOCYTES 2,949 850 - 3,900 cells/uL [facility] ABS. MONOCYTES 475 200 - 950 cells/uL [facility] ABS. EOSINOPHILS 136 15 - 500 cells/uL [facility] ABS. BASOPHILS 49 0 - 200 cells/uL [facility] SEG NEUTROPHILS 62.8 % [facility] LYMPHOCYTES 30.4 % [facility] MONOCYTES 4.9 % [facility] EOSINOPHILS 1.4 % [facility] BASOPHILS 0.5 % [facility] 06/19/2019 2:10 PM CDT 06/20/2019 7:51 AM CDT Narrative [facility] - 06/21/2019 7:43 AM CDT FASTING: UNKNOWN Resulting Agency Comment Performing Organization Information: ?Site ID: PR ?Name: [facility] ?Address: [facility] [place] [address] ?Director: Lowell Cristina D.O., MPH Rose Marie Norton NP LABORATORY Final Result [facility] documented in this encounter Visit Diagnoses Not on filedocumented in this encounter
--- OUTSIDE RECORDS SUMMARY | 2024-11-04 23:03 | XMS_ITS | Encounter Summary ---
Author Organization [facility] Address [address] [place] [address]. [place], [place] [address] [place] [address] Care Team Providers Care Java Application Engineer Name Role Phone Unavailable Primary Care Provider Unavailabl e Encounter Details Date Type Department Care Team (Latest Contact Info) Description 03/06/2018 Abstract [facility] Social History Tobacco Use Types [...]
--- OUTSIDE RECORDS SUMMARY | 2024-11-04 23:03 | XMS_ITS | Encounter Summary ---
Author Organization [facility] Address [address] [place] [address]. [place], [place] [address] [place] [address] Care Team Providers Care Video Machines Mechanic Name Role Phone Unavailable Primary Care Provider Unavailabl e Encounter Details Date Type Department Care Team (Latest Contact Info) Description 10/07/2017 Abstract [facility] Sage Gastelum MD Social History Tobacco Use Types Packs/Day Years Used Date Smoking Tobacco: Never Assessed Comments Unknown Sex and Gender Information Value Date Recorded Sex Assigned at Not on file Legal Sex Female 6:50 PM CDT Gender Identity Not on file Sexual Orientation Not on file documented as of this encounter Progress Notes * Sage Gastelum MD - 10/07/2017 4:30 PM CST Message I CALLED PT.....NO ANSWER.....I LEFT MESSAGE FOR HER TO CALL THE SAME DAY CLINIC. PLEASE NOTIFY PATIENT OF THE FOLLOWIN) RESULT: ABNORMALITY NOTED OF THE RIGHT LUNG.....RADIOLOGIST NOT SURE IF THIS IS A PNEUMONIA OR ANODULE OR ARTIFACT.....RADIOLOGIST SAYS TO CONSIDER A CT SCAN. GIVEN THE CONTEXT (SHE'S BEEN COUGHING FOR 3 WEEKS), I THINK A PNEUMONIA IS MOST LIKELY. 2) PLAN: TAKE MEDICATIONS PRESCRIBED (INCLUDING Z-PACK, THE ANTIBIOTIC). VERY IMPORTANT THAT SHE F/U WITH HER PCP IN ~ 10 DAYS FOR A RECHECK AND REPEAT CXR. IF ABNORMALITY RESOLVES, THEN PROBABLY THIS WAS A PNEUMONIA OR ARTIFACT. IF ABNORMALITY PERSISTS SHE'LL NEED A CT VIA PCP. THANKS, TM addendum: i called pt at 822 pm on 10/07/17 and above cxr result and plan was discussed with pt at length. She will take medications that were prescribed (including the z-opal) and see pcp in 10 days for a rehcheck and repeat cxr. she understands that if right lung abnormality persists in 10 days that she'll need a ct scan via pcp. pt communicated understanding of result and plan. all questions answered. tm, 822 pm, 10/07/17 Verified Results XR CHEST PA+LAT [id number] 04:30PM Sage Gastelum Test Name Result Flag Reference (Report) Examination: Chest x-ray 2 view Exam date/time: 10/07/2017 4:32 PM Reason For Exam: ACUTE BRONCHITIS Cough and wheezing for 3 weeks. Comparison: Chest x-ray 02/23/2014. Technique: PA and lateral views of the chest were obtained. Findings: Heart size and pulmonary vessels are normal. Focal consolidation right lung base medially. Possible focal infiltrate or nodule. Lungs otherwise clear. No pleural effusion. =====IMPRESSION:===== Focal consolidation medial aspect right lower lobe. Possible infiltrate. Possible nodule. Possible summation artifact. Consider CT scan chest with contrast. Discussion/Summary PLEASE NOTIFY PATIENT PATIENT OF THE FOLLOWIN) RESULT: ABNORMALITY NOTED OF THE RIGHT LUNG.....RADIOLOGIST NOT SURE IF THIS IS A PNEUMONIA OR ANODULE OR ARTIFACT.....RADIOLOGIST SAYS TO CONSIDER A CT SCAN. GIVEN THE CONTEXT (SHE'S BEEN COUGHING FOR 3 WEEKS), I THINK A PNEUMONIA IS MOST LIKELY. 2) PLAN: TAKE MEDICATIONS PRESCRIBED (INCLUDING Z-PACK, THE ANTIBIOTIC). VERY IMPORTANT THAT SHE F/U WITH HER PCP IN ~ 10 DAYS FOR A RECHECK AND REPEAT CXR. IF ABNORMALITY RESOLVES, THEN PROBABLY THIS WAS A PNEUMONIA OR ARTIFACT. IF ABNORMALITY PERSISTS SHE'LL NEED A CT VIA PCP. THANKS, TM addendum: i reached pt by phone at 822 pm on 10/07/17 and above cxr result and plan d/w pt at length. She will take prescribed meds (including the zithromax) and see pcp in 10 days for a recheck and repeat cxr. She understands that if right lung abnormality persists on repeat cxr in 10 days that she'll need a ct scan via pcp. This all d/w pt and pt communicates understanding of result and plan. all questions answered. tm, 10/07/17, 826 pm documented in this encounter Plan of Treatment Not on file documented as of this encounter Procedures Procedure Name Priority Date/Time Associated Diagnosis Comments XR CHEST PA+LAT Routine 10/07/2017 4:30 PM TRUCKING MANAGER documented in this encounter Results * XR CHEST PA+LAT (10/07/2017 4:30 PM TRUCKING MANAGER) Anatomical Region Laterality Modality Chest Radiographic Rosi ging 10/07/2017 4:30 PM TRUCKING MANAGER 10/07/2017 4:30 PM TRUCKING MANAGER Narrative 10/07/2017 4:55 PM TRUCKING MANAGER Examination: Chest x-ray 2 view Exam date/time: 10/07/2017 4:32 PM Reason For Exam: ??ACUTE BRONCHITIS ? Cough and wheezing for 3 weeks. Comparison: Chest x-ray 02/23/2014. Technique: PA and lateral views of the chest were obtained. Findings: Heart size and pulmonary vessels are normal. Focal consolidation right lung base medially. Possible focal infiltrate or nodule. Lungs otherwise clear. No pleural effusion. =====IMPRESSION:===== Focal consolidation medial aspect right lower lobe. Possible infiltrate. Possible nodule. Possible summation artifact. Consider CT scan chest with contrast. Procedure Note Tam Gilbert MD - 08/30/2018 Examination: Chest x-ray 2 view Exam date/time: 10/07/2017 4:32 PM Reason For Exam: ACUTE BRONCHITIS Cough and wheezing for 3 weeks. Comparison: Chest x-ray 02/23/2014. Technique: PA and lateral views of the chest were obtained. Findings: Heart size and pulmonary vessels are normal. Focal consolidation right lung base medially. Possible focal infiltrate or nodule. Lungs otherwise clear. No pleural effusion. =====IMPRESSION:===== Focal consolidation medial aspect right lower lobe. Possibleinfiltrate. Possible nodule. Possible summation artifact. Consider CT scan chestwith contrast. us Sage Gastelum MD GENERAL IMAGING Final Result documented in this encounter Visit Diagnoses Not on filedocumented in this encounter
--- OUTSIDE RECORDS SUMMARY | 2024-11-04 23:03 | XMS_ITS | Encounter Summary ---
Author Organization [facility] Address [address] [place] [address]. [place] [address] [place] [address] Care Team Providers Care Store Planner Name Role Phone Unavailable Primary Care Provider Unavailabl e Reason for Visit * Reason Onset Date Comments Error 04/16/2019 Encounter Details Date Type Department Care Team (Late st Contact Info) Description 04/16/2019 Telephone [facility] Family and Sports Medicine - [place] [address] [place] [address] Rose Marie Norton, JUAN JOSE [address] [place] [address] Error Social History Tobacco Use Types Packs/Day Years [...] as of this encounter Progress Notes * Cassidy Leary - 04/16/2019 2:04 PM CDT A user error has taken place: encounter opened in error, closed for administrative reasons. documented in this encounter Plan of Treatment Not on file documented as of this encounter Visit Diagnoses Not on filedocumented in this encounter
--- OUTSIDE RECORDS SUMMARY | 2024-11-04 23:03 | XMS_ITS | Encounter Summary ---
Author Organization [facility] Address [address] [place] [address]. [place], [place] [address] [place] [address] Care Team Providers Care Pullman Car Repairer Name Role Phone Unavailable Primary Care Provider Unavailabl e Reason for Visit * Reason Comments Discharge Summary (SCAN) ABNORMAL UTERIN E BLEEDING, FIBROIDS Encounter Details Date Type Department Care Team (Late st Contact Info) Description 12/26/2018 Scan HEALTH INFO SRVCS Scanned, Documents Discharge Summary (SCAN) (ABNORMAL UTERINE BLEEDING, FIBROIDS) Social History Tobacco Use Types Packs/Day Years [...]
--- OUTSIDE RECORDS SUMMARY | 2024-11-04 23:03 | XMS_ITS | Encounter Summary ---
Author Organization [facility] Address [address] [place] [address]. [place], [place] [id number] [place] [id number] Care Team Providers Care Automotive Detailer Name Role Phone Unavailable Primary Care Provider Unavailabl e Reason for Visit * Auth/Cert Specialty Diagnoses / Procedures Referred By Contac t Referred To Contact Diagnoses DIVERTICULITIS Procedures COLONOSCOPY DIAGNOSTIC WITH/WITHOUT SPECIMEN BRUSH/WASH Referral ID Status Reason Start Date Expiration Date Visits Re quested Visits Authorized [id number] 1 1 Encounter Details Date Type Department Care Team (Latest Contact Info) Description 08/09/2019 6:06 AM CDT - 08/09/2019 8:21 AM CDT Hospital Encounter [facility] [place] [address] Kathy Bailey MD [address] [place] [address] [phone] Discharge Disposition: Home or Self Care (Routine [...] Sign Reading Time Taken Comments Blood Pressure 126/81 08/09/2019 7:50 AM CDT Pulse 67 08/09/2019 7:50 AM CDT Temperature 36.3 ??C (97.3 ??F) 08/09/2019 7:37 AM CD T Respiratory Rate 20 08/09/2019 7:50 AM CDT Oxygen Saturation 97% 08/09/2019 7:50 AM CDT Inhaled Oxygen Concentration - - Weight 108.9 kg (240 lb) 08/07/2019 4:39 PM CDT Height 162.6 cm (5' 4 ) 08/07/2019 4:39 PM CDT Body Mass Index 41.2 08/07/2019 4:39 PM CDT documented in this encounter Functional [...] AM CDT Teja Segundo R N Active * Because of a physical, mental, [...] this encounter Discharge Instructions * Discharge Instructions* Kathy Bailey MD - 08/09/2019 7:26 AM CDT No Aspirin/NSAIDS x5 days High fiber diet * Attachments The following attachments cannot be sent through Care Everywhere. * Colonoscopy Discharge Instructions (Macanese) documented in this encounter H&P Notes * Kathy Bailey MD - 08/09/2019 7:01 AM CDT HISTORY AND PHYSICAL INTERVAL NOTE: I have reviewed Tammy Cervantes History & Physical which was performed within the past30 days. After examining Tammy Cervantes, no change has occurred in the patient's condition since the H&P was completed. Informed Consent Discussion: Potential benefits, risks, and side effects of the patient's procedure/surgery; the likelihood of the patient achieving his or her goals; and any potential problems that might occur during recuperation were discussed with the patient/family/personal sales representative publications. Reasonable alternatives to the patient's proposed procedure/surgery including benefits, risks, and side effects related to the alternatives and the risks related to patient/family/personal sales representative publications verbalized understanding and desires to proceed. Source Note - Kathy Bailey MD - 07/31/2019 7:42 AM CDT CHIEF COMPLAINT: Diverticulitis. HISTORY OF PRESENT ILLNESS: The patient is a 43-year-old female who in June 2019 had abdominal pain in bilateral lower quadrants. She was told she had diverticulitis and had IV antibiotics for 3 days followed by p.o. antibiotics. She currently notes occasional bilateral lower quadrant tenderness.She has been off antibiotics since mid-June. She has previously had an appendectomy and a laparoscopic partial hysterectomy. Denies GI bleed, does note weight gain, has having a bowel movement q. 2days, which is baseline for her. Denies history of colonoscopy. She does have a cousin with colon cancer. CT scan of May 2019 shows a long segment of diverticulitis. REVIEW OF SYSTEMS: A 10-point review of systems was completed and is negative except as noted above. PAST MEDICAL HISTORY: Diverticulitis. MEDICATIONS: None. PAST SURGICAL HISTORY: As above. ALLERGIES: AMOXICILLIN. FAMILY HISTORY: Negative for colorectal cancer. SOCIAL HISTORY: Quit tobacco use over 7 years ago. PHYSICAL EXAMINATION: Temperature 98.4, pulse 72, respirations 16, blood pressure 136/74. General: The patient is alert and oriented, in no acute distress. Lid and lips grossly normal. HEART: Regularrate. Lungs: Unlabored respirations. Abdomen: Soft with mild suprapubic tenderness to palpation. Gait and station are normal. Skin is without jaundice. Cranial nerves II-XII are grossly intact. ASSESSMENT AND PLAN: This is a 43-year-old female with history of diverticulitis in need of colonoscopy. Risks, benefits, procedure discussion was had with the patient and is documented in the clinicchart. #[id number] /NTS * Kathy Bailey MD - 07/31/2019 7:42 AM CDT CHIEF COMPLAINT: Diverticulitis. HISTORY OF PRESENT ILLNESS: The patient is a 43-year-old female who in June 2019 had abdominal pain in bilateral lower quadrants. She was told she had diverticulitis and had IV antibiotics for 3 days followed by p.o. antibiotics. She currently notes occasional bilateral lower quadrant tenderness.She has been off antibiotics since mid-June. She has previously had an appendectomy and a laparoscopic partial hysterectomy. Denies GI bleed, does note weight gain, has having a bowel movement q. 2days, which is baseline for her. Denies history of colonoscopy. She does have a cousin with colon cancer. CT scan of May 2019 shows a long segment of diverticulitis. REVIEW OF SYSTEMS: A 10-point review of systems was completed and is negative except as noted above. PAST MEDICAL HISTORY: Diverticulitis. MEDICATIONS: None. PAST SURGICAL HISTORY: As above. ALLERGIES: AMOXICILLIN. FAMILY HISTORY: Negative for colorectal cancer. SOCIAL HISTORY: Quit tobacco use over 7 years ago. PHYSICAL EXAMINATION: Temperature 98.4, pulse 72, respirations 16, blood pressure 136/74. General: The patient is alert and oriented, in no acute distress. Lid and lips grossly normal. HEART: Regularrate. Lungs: Unlabored respirations. Abdomen: Soft with mild suprapubic tenderness to palpation. Gait and station are normal. Skin is without jaundice. Cranial nerves II-XII are grossly intact. ASSESSMENT AND PLAN: This is a 43-year-old female with history of diverticulitis in need of colonoscopy. Risks, benefits, procedure discussion was had with the patient and is documented in the clinicchart. #[id number] /NTS documented in this encounter OR Notes * Op Note - Kathy Bailey MD - 08/09/2019 7:27 AM CDT Tammy Cervantes is an 43-year-old female. Date of Operation: [08/09/2019] Preoperative diagnosis: Diverticulitis Postoperative diagnosis: Diverticulosis, colon polyps Procedure: Colonoscopy to cecum with hot biopsy polypectomy x2 Anesthesia: MAC Assistants: GI Nurse: Marley Marc RN hoop coiler: Andrew Christianson Estimated blood loss: Minimal Specimen: Sigmoid colon polyp, rectal polyp Complications: None Repeat colonoscopy: Based on pathology Prep quality: Adequate Operative procedure: Informed consent was obtained and placed on the chart after risk, benefit, procedure description. Patient was taken to the endoscopy suite and placed in left lateral decubitus position. All appropriate areas were padded. Anesthesia was obtained without difficulty. A timeout wasperformed. Digital rectal exam was performed which showed no lesions. After adequate lubrication, the colonoscope was inserted into the anus and advanced to the level of the cecum. Cecum was identified by ileocecal valve and appendiceal orifice. The scope was then carefully withdrawn examining the color, texture, and integrity of the mucosa from the cecum to the rectum. Patient was noted to have pandiverticulosis. No areas of stricturing or noncompliance were noted. In the sigmoid colon patientwas noted to have 1 cm polyp. This was removed with hot biopsy forceps. In the rectum patient was noted to have 5 mm polyp. This was removed with hot biopsy forceps. Hemostasis was noted. Retroflexion was performed in the rectum which showed small hemorrhoids. Rectum was desufflated, and colonoscope was withdrawn in its entirety. Patient was awoken from anesthesia without difficulty, and transferred to the postoperative care unit in stable condition. KATHY BAILEY MD 08/09/2019 documented in this encounter Plan of Treatment Not on file documented as of this encounter Procedures Procedure Name Priority Date/Time Associated Diagnosis Comments COLONOSCOPY WITH BIOPSY 08/09/2019 6:55 AM CDT DIVERTICULITIS Case Notes SCHEDULED BY FAX 07/20/19 [facility] Routine 08/09/2019 12:00 AM CDT documented in this encounter Results * Pathology (08/09/2019 12:00 AM CDT) COPATH REPORT ? [facility] ? [address] [facility] ? [place], [place] ??[address] ? [id number] ? Department of Pathology ? Pathology Report ? SURGICAL FINAL REPORT Patient Name: TAMMY CERVANTES ?? : 1975 (Age: 43) ? Location: [facility] Gender: F ?Collected Date: 08/09/2019 Med Rec #: [id number] ?Date Received: 08/09/2019 Date Reported: 08/10/2019 Provider: KATHY BAILEY Specimen(s) A: Polyp, sigmoid colon B: Rectal Polyp Final Pathologic Diagnosis A. SIGMOID COLON POLYP, BIOPSY: ? HYPERPLASTIC POLYP ?? B. ??RECTAL POLYP, BIOPSY: ? TUBULAR ADENOMA ? NO HIGH GRADE DYSPLASIA Electronically Signed Out ? TESS STRINGER Pathologist ATH:ath Microscopic Description: The microscopic examination supports the above diagnosis. Clinical History Diverticulitis Gross Description A. ??The specimen is received in a single formalin filled container labeled with the patient's name (Tammy Cervantes), (1975) and sigmoid. The specimen consists of one pink-white, soft, polypoid tissue fragment measuring 0.3 cm in greatest dimension. ??The specimen is entirely submitted intact as A1. B. ??The specimen is received in a single formalin filled container labeled with the patient's name (Tammy Cervantes), (1975) and rectal. The specimen consists of one pink-white, soft, tissue fragment measuring 0.3 cm in greatest dimension. ??The specimen is entirely submitted intact as B1. ?? :ath Billing Fee Code(s): 04029(2) [facility] Tissue specimen (specimen) COLON STRUCTURE / Unknown 08/09/2019 7:22 AM CDT Tissue specimen (specimen) COLON STRUCTURE / Unknown 08/09/2019 7:24 AM CDT us Kathy Bailey MD PATHOLOGY/CYTOLOGY ORDERABLES Fi nal Result [facility] [address] [facility] [address], [place] [phone] documented in this encounter Visit Diagnoses Not on filedocumented in this encounter Administered Medications Inactive Administered Medications - up to 3 most recent administrations Medication Order MAR Action Action Date Dose Rate Site acetaminophen (TYLENOL) tablet 650 mg 650 mg, Oral, Once as needed, Mild pain (Scale 1 - 3), 1 dose, Starting on Tahira 08/09/19 at 0739, Until Tahira 08/09/19 at 1022, Maximum dose of acetaminophen is 4000 mg from all sources in 24 hours., PACU lactated ringers infusion at 10 mL/hr, Intravenous, Continuous, Starting on Tahira 08/09/19 at 0700, Until Tahira 08/09/19 at 1022, Infuse at TKO rate, Pre-Op New Bag 08/09/2019 6:59 AM CDT documented in this encounter Active and Recently Administered Medications Times are shown in CDT. Continuous Medication Order 08/07/2019 08/08/2019 08/09/2019 lactated ringers infusion at 10 mL/hr, Intravenous, Continuous, Starting on Tahira 08/09/19 at 0700, Until Tahira 08/09/19 at 1022, Infuse at TKO rate, Pre-Op 0659 (New Bag - Prov ider: Sandra Duarte CRNA)0726 (Infusion Stop Time - Provider: Sandra Duarte CRNA) PRN Medication Order 08/07/2019 08/08/2019 08/09/2019 acetaminophen (TYLENOL) tablet 650 mg 650 mg, Oral, Once as needed, Mild pain (Scale 1 - 3), 1 dose, Starting on Tahira 08/09/19 at 0739, Until Tahira 08/09/19 at 1022, Maximum dose of acetaminophen is 4000 mg from all sources in 24 hours., PACU simethicone (MYLICON) 40 MG/0.6ML suspension (CANCELED) As needed, Starting on Tahira 08/09/19 at 0720, Until Tahira 08/09/19 at 0732, Intra-Op 0720 (Given - Provid er: Kathy Bailey MD - Comment: colonoscope flush) documented in this encounter
--- OUTSIDE RECORDS SUMMARY | 2024-11-04 23:03 | XMS_ITS | Encounter Summary ---
Author Organization [facility] Address [address] [place] [address]. [place] [address] [place] [address] Care Team Providers Care Quality Assurance Auditor Name Role Phone Unavailable Primary Care Provider Unavailabl e Reason for Visit * Reason Comments URI/ENT Symptoms chills/congestion Encounter Details Date Type Department Care Team (Late st Contact Info) Description 12/18/2018 1:40 PM INVASIVE CARDIOVASCULAR TECHNOLOGIST Office Visit [facility] - [place] [address] [place] [phone] Hanh Rowe APNP [address] [place], [place] [phone]- URI/ENT Symptoms (chills/congestion) Social History Tobacco Use Types Packs/Day Years [...] Sign Reading Time Taken Comments Blood Pressure 134/86 12/18/2018 2:02 PM INVASIVE CARDIOVASCULAR TECHNOLOGIST Pulse 82 12/18/2018 2:02 PM INVASIVE CARDIOVASCULAR TECHNOLOGIST Temperature 36.4 ??C (97.5 ??F) 12/18/2018 2:02 PM CS T Respiratory Rate 14 12/18/2018 2:02 PM INVASIVE CARDIOVASCULAR TECHNOLOGIST Oxygen Saturation 99% 12/18/2018 2:02 PM INVASIVE CARDIOVASCULAR TECHNOLOGIST Inhaled Oxygen Concentration - - Weight 109 kg (240 lb 6 oz) 12/18/2018 2:[address] Height 160 cm (5' 3 ) 12/18/2018 2:02 PM INVASIVE CARDIOVASCULAR TECHNOLOGIST Body Mass Index 42.58 12/18/2018 2:02 PM INVASIVE CARDIOVASCULAR TECHNOLOGIST documented in this encounter Patient Instructions * Patient Instructions* NIHARIKA Crawford - 12/18/2018 1:40 PM INVASIVE CARDIOVASCULAR TECHNOLOGIST Images from the original note were not included. Patient Education Patient Education Bacterial Upper Respiratory Infection, Adult About this topic Germs cause this health problem. You have signs in your nose, windpipe, voice box or larynx, throat, ears, or lungs that last for days or weeks. It often spreads from a person who is sick to some other person from close contact. This health problem may include: ?? Sore throat. This is pharyngitis. ?? Swelling of the lining of the nose. This is rhinitis. ?? Swelling of the sinuses with pain in the face, forehead, or upper teeth. This is sinusitis. ?? Swelling of the nose and throat. This is nasopharyngitis. ?? Swelling of the upper part of the voice box. This is epiglottitis. ?? Swelling of the voice box. This is laryngitis. ?? Ear pain. This may be otitis media or an ear infection. ?? Cough What are the causes? The main cause is an infection by certain germs. What can make this more likely to happen? ?? Cold or winter season ?? Low immune system ?? Close contact with someone who has an upper respiratory infection ?? Allergies or asthma ?? Working in a school or day care center What are the main signs? ?? Cough or sneezing ?? Sore throat ?? Runny or stuffy nose ?? Ear pain ?? Fever ?? Headache ?? Muscle pain ?? Tired ?? Weakness How does the doctor diagnose this health problem? Your doctor will do an exam and ask about your history. Your doctor will check your nose, throat, and lungs. The doctor may order: ?? Lab tests ?? Throat swab ?? Chest x-ray ?? CT or MRI scan How does the doctor treat this health problem? Your doctor may give you drugs to treat or prevent infection. You may also be given other drugs based on your condition. Talk to your doctor about what drugs you need to take. What lifestyle changes are needed? You need to rest while you are getting better. If your throat is sore, don't talk too much. This will rest your voice and throat. What drugs may be needed? The doctor may order drugs to: ?? Help with pain and swelling ?? Fight an infection ?? Dry up a stuffy nose ?? Stop wheezing ?? Control coughing What can be done to prevent this health problem? ?? Wash your hands often with soap and water for at least 20 seconds, especially after coughing or sneezing. Alcohol-based hand sanitizers also work to kill the virus. ?? If you are sick, cover your mouth and nose with tissue when you cough or sneeze. You can also cough into your elbow. Throw away tissues in the trash and wash your hands after touching used tissues. ?? Do not get too close (kissing, hugging) to people who are sick. ?? Do not share towels or hankies with anyone who is sick. ?? Stay away from crowded places. ?? Get a flu shot each year. Where can I learn more? [employer] https://familydoctor.org/antibiotic-resistance/ Centers for Disease Control and Prevention http://www.cdc.gov/getsmart/antibiotic-use/URI/index.html NHS Choices http://www.nhs.uk/conditions/Ituuyabxhsi-hlaef-fwcygfuth/Pages/Introduction.aspx Last Reviewed Date 2018-01-27 Consumer Information Use and Disclaimer This information [...] or not to accept your health care provider???s advice, instructions or recommendations. Only your health care provider has the knowledge and training to provide advice that is right for you. Copyright Copyright ?? 2018 [employer] and its affiliates and/or licensors. All rights reserved. Patient Education Patient Education Cough in Adults The Basics Written by the doctors and editors at [facility] What is a cough???--??A cough is an important reflex that helps clear out the body's airways (the trachea and bronchi, which are the tubes that carry air within the lungs). Coughing helps keep peoplefrom breathing things into the airways and lungs that could cause problems (figure 1). It is normal for people to cough once in a while. But sometimes, a cough is a symptom of an illnessor condition. Some coughs are called dry coughs, because they don't bring up mucus (phlegm). Other coughs are called wet or productive coughs, because they do bring up mucus. Some coughs are mild and don't cause serious problems. Other coughs are severe and can cause trouble breathing. What causes a cough???--??In adults, common causes of a cough include: ?? An infection of the airways or lungs (such as the common cold) ?? Postnasal drip - Postnasal drip is when mucus from the nose drips down or flows along the back of the throat. Postnasal drip can happen when people have: ? A cold ? Allergies ? A sinus infection - The sinuses are hollow areas in the bones of the face that open into the nose(figure 2). ?? Lung conditions, like asthma and chronic obstructive pulmonary disease (COPD) - Both of these conditions can make it hard to breathe. COPD is usually caused by smoking. ?? Acid reflux - Acid reflux is when the acid that is normally in your stomach backs up into your esophagus (the tube that carries food from your mouth to your stomach). ?? A side effect from blood pressure medicines called JAYJAY inhibitors ?? Smoking cigarettes Should I call my doctor or nurse???--??Call your doctor or nurse right away if: ?? You have trouble breathing or noisy breathing (wheezing). ?? You have a fever or chest pain. ?? You cough up blood, or yellow or green mucus. ?? You cough so hard that it makes you vomit. ?? Your cough gets worse or lasts longer than 10 days. ?? You have a cough and have lost weight without trying. Will I need tests???--??Maybe. To figure out the cause of your cough, your doctor or nurse will talk with you and do an exam. Based on your symptoms and other factors, he or she might decide that youneed tests. These might include: ?? A chest X-ray ?? Breathing tests - Breathing tests involve breathing hard into a tube. These tests show how the lungs are working. ?? Allergy skin tests to find out what you're allergic to - For a skin test, the doctor puts a dropof the substance you might be allergic to on your skin and makes a tiny prick in the skin. Then he or she will watch your skin to see if it gets red and bumpy. ?? A CT scan of your chest or sinuses - A CT scan is an imaging test that creates pictures of the inside of the body. ?? Lab tests on a sample of the mucus you cough up ?? Using a scope to look inside your nose, sinuses, airway, or lungs ?? Tests to check for acid reflux - These usually involve having a thin tube put in your mouth and down into your esophagus. Is there anything I can do on my own to get rid of my cough???--??Yes. To help get rid of your cough, you can: ?? Use a humidifier in your bedroom ?? Use an tnus-gra-vjflfpw cough medicine, or suck on cough drops or hard candy ?? Stop smoking, if you smoke ?? If you have allergies, avoid the things you are allergic to (like pollen, dust, animals, or mold) If you have acid reflux, your doctor or nurse will tell you which lifestyle changes can help reducesymptoms. How is a cough treated???--??Treatment depends on the cause of your cough. For example: ?? Some infections are treated with antibiotic medicines. If an infection is caused by bacteria, doctors can treat it with antibiotics. If an infection is caused by the flu virus, a different medicine might help. If the infection is caused by another virus (such as the common cold), antibiotics will not help. ?? Postnasal drip is treated with different kinds of medicines that can come as a pill or nose spray. ?? Asthma and COPD are usually treated with medicines that people breathe into their lungs (called inhaler medicines ). ?? Acid reflux can be treated with medicine to reduce or block stomach acid. ?? If you have a cough as a side effect from an JAYJAY inhibitor, your doctor can switch your medicine. If the cause of your cough is not clear, your doctor might prescribe medicine to make your cough less severe. But these medicines have side effects, and doctors usually recommend them only if nothingelse has worked. All topics are updated as new evidence becomes available and our peer review process is complete. This topic retrieved from [employer] on: Aug 18, 2018. Topic 92109 Version 6.0 Release: 26.4.7 - C26.268 ?2018??[employer] and/or its affiliates.??All rights reserved. figure 1: Normal lungs The lungs sit in the chest, inside the ribcage. They are covered with a thin membrane called the pleura. The windpipe, or trachea, branches into two smaller airways called the left and right bronchi. The space between the lungs is called the mediastinum. Lymph nodes are located within and around the lungs and mediastinum. Graphic 14307 Version 13.0 figure 2: Sinuses of the face This??drawing shows the sinuses of the face. Graphic 52705 Version 7.0 Consumer Information Use and Disclaimer This information [...] that is right for you.The use of [employer] content is governed by the [employer] Terms of Use. ??2018 [employer]. All rights reserved. Copyright ?2018??[employer] and/or its affiliates.??All rights reserved. SIVE CARDIOVASCULAR TECHNOLOGIST SIVE CARDIOVASCULAR TECHNOLOGIST documented in this encounter Progress Notes * NIHARIKA Crawford - 12/18/2018 1:40 PM CST Images from the original note were not included. Office Note Reason for Visit: URI/ENT Symptoms (chills/congestion) History of Present Illness: Here for c/o productive cough, runny nose, sore throat, headache and body aches for the past 3 days. Pt is scheduled for hysterectomy on 12/26/18 and wants to make sure she is feeling better by then. Pt denies any fevers and sore throat has resolved. ROS: Review of Systems Constitutional: Positive for malaise/fatigue. Negative for chills and fever. HENT: Positive for congestion and sore throat. Negative for ear pain. Respiratory: Positive for cough and sputum production. Negative for shortness of breath and wheezing. Cardiovascular: Negative for chest pain and palpitations. Gastrointestinal: Negative for blood in stool, constipation, diarrhea, nausea and vomiting. Genitourinary: Negative for dysuria. Musculoskeletal: Negative for myalgias. Neurological: Negative for focal weakness, weakness and headaches. Psychiatric/Behavioral: Negative for depression and suicidal ideas. Medications: Current Outpatient Medications: ??? azithromycin 250 MG tablet, Take 2 tablets by mouth on day one then 1 daily for four days., Disp: 6 tablet, Rfl: 0 ??? Cetirizine HCl (ZYRTEC ALLERGY) 10 MG Cap, Take 1 capsule by mouth daily for 30 days., Disp: 30capsule, Rfl: 2 ??? dexlansoprazole (DEXILANT) 60 MG capsule, Take 60 mg by mouth daily., Disp: , Rfl: ??? guaifenesin-codeine (CHERATUSSIN AC) 100-10 MG/5ML syrup, Take 5 mLs by mouth every 4 (four) hours as needed for Cough., Disp: 118 mL, Rfl: 0 ??? ranitidine 150 MG tablet, Take 150 mg by mouth 2 (two) times daily., Disp: , Rfl: Allergies: Allergies Allergen Reactions ??? Amoxicillin Rash Medical History: History reviewed. No pertinent past medical history. Surgical History: Past Surgical History: Procedure Laterality Date ??? APPENDECTOMY Social History: Social History Socioeconomic History ??? Marital status: Single Spouse name: Not on file ??? Number of children: Not on file ??? Years of education: Not on file ??? Highest education level: Not on file Social Needs ??? Financial resource strain: Not on file ??? Food insecurity - worry: Not on file ??? Food insecurity - inability: Not on file ??? Transportation needs - medical: Not on file ??? Transportation needs - non-medical: Not on file Occupational History ??? Not on file Tobacco Use ??? Smoking status: Former Smoker Types: Cigarettes ??? Smokeless tobacco: Never Used Substance and Sexual Activity ??? Alcohol use: Yes ??? Drug use: No ??? Sexual activity: Not on file Other Topics Concern ??? Not on file Social History Narrative ??? Not on file Family History: Family History Problem Relation Name Age of Onset ??? Hypertension Father ??? Stroke Father PE: Physical Exam Constitutional: She is oriented to person, place, and time and well-developed, well-nourished, and in no distress. HENT: Head: Normocephalic and atraumatic. Right Ear: External ear normal. A middle ear effusion is present. Left Ear: External ear normal. A middle ear effusion is present. Mouth/Throat: Posterior oropharyngeal erythema present. Eyes: EOM are normal. Pupils are equal, round, and reactive to light. Neck: No tracheal deviation present. Cardiovascular: Normal rate, regular rhythm and normal heart sounds. Pulmonary/Chest: Effort normal and breath sounds normal. No respiratory distress. She has no wheezes. Abdominal: Soft. Bowel sounds are normal. She exhibits no distension. There is no tenderness. Musculoskeletal: Normal range of motion. She exhibits no edema. Lymphadenopathy: She has no cervical adenopathy. Neurological: She is alert and oriented to person, place, and time. No cranial nerve deficit. Gait normal. Skin: Skin is warm and dry. No rash noted. Psychiatric: Mood, memory, affect and judgment normal. Nursing note and vitals reviewed. Filed Vitals: 12/18/18 1402 BP: 134/86 Pulse: 82 Resp: 14 Temp: 97.5 ??F (36.4 ??C) SpO2: 99% Weight: 109 kg (240 lb 6 oz) Height: 5' 3 (1.6 m) Diagnoses/Plan: 1. Flu-like symptoms INFLUENZA A & B 2. Upper respiratory tract infection, unspecified type azithromycin 250 MG tablet guaifenesin-codeine (CHERATUSSIN AC) 100-10 MG/5ML syrup 3. Cough guaifenesin-codeine (CHERATUSSIN AC) 100-10 MG/5ML syrup 4. Seasonal allergies Cetirizine HCl (ZYRTEC ALLERGY) 10 MG Cap Medications Discontinued During This Encounter Medication Reason ??? albuterol sulfate HFA (PROAIR HFA) 108 (90 Base) MCG/ACT inhaler Pt. elected to discontinue med ??? ciprofloxacin 500 MG tablet Pt. elected to discontinue med ??? fluconazole 150 MG tablet Pt. elected to discontinue med ??? furosemide 20 MG tablet Pt. elected to discontinue med ??? gentamicin 0.3 % ophthalmic solution Pt. elected to discontinue med ??? ibuprofen 800 MG tablet Pt. elected to discontinue med ??? pantoprazole 40 MG tablet Pt. elected to discontinue med ??? triamterene-hydrochlorothiazide 37.5-25 MG capsule Pt. elected to discontinue med ??? dexlansoprazole (DEXILANT) 30 MG capsule Dose adjustment Discussion: Influenza swab negative. Pt to start Azithromycin. F/U if symptoms are not improving in one week. Pt does not take any of the above medications that were discontinued and she has not been on these medications in some time. NIHARIKA CRAWFORD 12/18/2018 SIVE CARDIOVASCULAR TECHNOLOGIST documented in this encounter Plan of Treatment Not on file documented as of this encounter Procedures Procedure Name Priority Date/Time Associated Diagnosis Comments INFLUENZA A & B Today 12/18/2018 Flu-like symptoms documented in this encounter Results * INFLUENZA A & B (12/18/2018) INFULENZA A AB NEGATIVE NEGATIVE [facility], [place] INFLUENZA B AB NEGATIVE NEGATIVE [facility], [place] Internal Control: VALID VALID [facility], [place] NASOPHARYNGEAL SWAB / Unknown 12/18/2018 us Hanh [facility]UNDY MICROBIOLOGY - GENERAL ORDERAB LES Final Result -[address], [place] [address] [place] [address], documented in this encounter Visit Diagnoses Diagnosis Flu-like symptoms- Primary Influenza with other respiratory manifestations Upper respiratory tract infection, unspecified type Cough Seasonal allergies Allergic rhinitis, cause unspecified documented in this encounter
--- OUTSIDE RECORDS SUMMARY | 2024-11-04 23:03 | XMS_ITS | Encounter Summary ---
Author Organization [facility] Address [address] [place] [address]. [place], [place] [id number] [place] [address] Care Team Providers Care Media Professional Name Role Phone Unavailable Primary Care Provider Unavailabl e Reason for Visit * Reason Comments Procedure (SCAN) RALH WITH BILATERAL SALPINGECTOMIES Encounter Details Date Type Department Care Team (Late st Contact Info) Description 12/26/2018 Scan [facility] INFO [facility] Scanned, Documents Procedure (SCAN) (RALH WITH BILATERAL SALPINGECTOMIES) Social History Tobacco Use Types Packs/Day Years [...]
--- OUTSIDE RECORDS SUMMARY | 2024-11-04 23:03 | XMS_ITS | Encounter Summary ---
Author Organization [facility] Address [address] [place] [address]. [place], [place] [id number] [place] [address] Care Team Providers Care Dental Equipment Mechanic Name Role Phone Unavailable Primary Care Provider Unavailabl e Encounter Details Date Type Department Care Team (Latest Contact Info) Description 07/10/2019 Scan HEALTH INFO [facility] Scanned, Documents Social [...]
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
--- OUTSIDE RECORDS SUMMARY | 2024-11-04 23:03 | XMS_ITS | Encounter Summary ---
Author Organization [facility] Address [address] [place] [address]. [place] [address] [place] [address] Care Team Providers Care Geothermal Heat Pump Machinist Name Role Phone Unavailable Primary Care Provider Unavailabl e Reason for Visit * Reason Comments Blood Pressure 92/60, last week her bp was running low Lab Draw would like labs draw n to see whats going on Cough runny nose, worse at night, X1 week Encounter Details Date Type Department Care Team (Late st Contact Info) Description 05/07/2019 8:40 AM CDT Office Visit [facility] Medical Group Family and Sports Medicine - [place] [address] [place] [phone] 72 Rose Marie Ramirez NP [address] [place] [address] Blood Pressure (92/60, last week her bp was running low); Lab Draw (would like labs drawn to see whats going on); Cough (runny nose, worse at night, X1 week) Social History Tobacco Use Types Packs/Day Years [...] Sign Reading Time Taken Comments Blood Pressure 132/90 05/07/2019 8:36 AM CDT Pulse 67 05/07/2019 8:36 AM CDT Temperature 36.9 ??C (98.5 ??F) 05/07/2019 8:36 AM CD T Respiratory Rate - - Oxygen Saturation 98% 05/07/2019 8:36 AM CDT Inhaled Oxygen Concentration - - Weight 110.8 kg (244 lb 4 oz) 05/07/2019 8:36 AM CDT Height 160 cm (5' 2.99 ) 05/07/2019 8:36 AM CDT Body Mass Index 43.28 05/07/2019 8:36 AM CDT documented in this encounter Progress Notes * Rose Marie Ramirez NP - 05/07/2019 8:40 AM CDT Images from the original note were not included. [facility] [address], [address] [place] [address] OFFICE VISIT NOTE Encounter Date: 05/07/2019 Chief Complaint: Maria Del Carmen Ray is a 43-year-old female here for Blood Pressure (92/60, last week her bp was running low); LAB DRAW (would like labs drawn to see whats going on); and Cough (runny nose, worse at night, X1 week) HPI Here with c/o cough/cold symptoms for over 10 days that is getting worse, productive green mucous with cough. She noted last week her BP was low, normal today. She did donate plasma last week. States she stayshydrated. Review of Systems Constitutional: Negative. HENT: Positive for sore throat. Negative for ear pain. Respiratory: Positive for cough and sputum production. Cardiovascular: Negative. Gastrointestinal: Negative. Patient Active Problem List Diagnosis ??? Backache ??? Esophageal reflux ??? Foot pain ??? Hypertension ??? Knee pain, right ??? Obesity ??? Sinusitis Past Medical History: Diagnosis Date ??? Onychomycosis [...] file Gets together: Not on file Attends restorationism service: Not on file Active member of [...] Allergen Reactions ??? Amoxicillin Rash Objective: Vitals: 05/07/19 0836 BP: 132/90 Pulse: 67 Temp: 98.5 ??F (36.9 ??C) SpO2: 98% Physical Exam Constitutional: She is well-developed, well-nourished, and in no distress. Cardiovascular: Normal rate, regular rhythm and normal heart sounds. Pulmonary/Chest: Effort normal. She has rhonchi in the right lower field and the left lower field. Psychiatric: Mood and affect normal. Assessment/Plan: 1. Bronchitis - azithromycin (ZITHROMAX) 250 MG tablet; Take 2 tablets (500 mg total) by mouth daily for 1 day, THEN 1 tablet (250 mg total) daily for 4 days. Dispense: 6 tablet; Refill: 0 - guaifenesin-codeine (CHERATUSSIN AC) 100-10 MG/5ML syrup; Take 5 mLs by mouth every 4 (four) hours as needed for Cough. Dispense: 180 mL; Refill: 0 2. Essential hypertension - COMPREHENSIVE METABOLIC PANEL; Future ROSE MARIE RAMIREZ NP documented in this encounter Plan of Treatment Not on file documented as of this encounter Results * (ABNORMAL) COMPREHENSIVE METABOLIC PANEL (05/07/2019 9:00 AM CDT) [facility] Signature GLUCOSE 89 70 - 99 MG/DL 05/07/2019 8:[address] [facility] BUN 16 7 - 18 MG/DL 05/07/2019 8:[address] [facility] CREATININE S/P/B 0.91 0.55 - 1.02 MG/DL 05/07/2019 8:[address] [facility] SODIUM S/P/B 141 136 - 145 MMOL/L 05/07/2019 8:[address] [facility] POTASSIUM S/P/B 4.3 3.5 - 5.1 MMOL/L 05/07/2019 8:[address] [facility] CHLORIDE S/P/B 110(H) 100 - 108 MMOL/L 05/07/2019 8:[address] [facility] CO2 25.8 21 - 32 MMOL/L 05/07/2019 8:[address] [facility] CALCIUM S/P/B 8.5 8.5 - 10.1 MG/DL 05/07/2019 8:[address] [facility] BILIRUBIN TOTAL S/P/B 0.3 0.2 - 1.2 MG/DL 05/07/2019 8:[address] [facility] TOTAL PROTEIN S/P/B 5.4(L) 6.4 - 8.2 G/DL 05/07/2019 8:[address] [facility] ALBUMIN S/P/B 2.9(L) 3.4 - 5.0 G/DL 05/07/2019 8:[address] [facility] AST 18 15 - 37 U/L 05/07/2019 8:[address] [facility] ALT 21 14 - 55 U/L 05/07/2019 8:[address] [facility] ALKALINE PHOSPHATASE S/P/B 66 50 - 136 U/L 05/07/2019 8:[address] [facility] ANION GAP 5.2 5 - 15 MMOL/L 05/07/2019 8:[address] [facility] BUN CREATININE RATIO 17.5 6 - 26 05/07/2019 8:[address] [facility] A/G RATIO 1.2 1.0 - 2.0 RATIO 05/07/2019 8:07 PM [facility] EGFR NON-AFR. AMER. 78(L) >90 ML/MIN/1.7 3 M2 05/07/2019 8:[address] [facility] EGFR AFR. AMER. >90 >90 ML/MIN/1.7 3 M2 05/07/2019 8:[address] [facility] Comment: NOTE: eGFR is not calculated for patients <18 years of age. This is an estimated GFR (CKD EPI) and should not be used for calculating drug doses. 05/07/2019 9:00 AM CDT Rose Marie Ramirez NP LABORATORY Final Result [facility] [address] [place] [address], documented in this encounter Visit Diagnoses Diagnosis Bronchitis- Primary Bronchitis, not specified as acute or chronic Essential hypertension Unspecified essential hypertension documented in this encounter
--- OUTSIDE RECORDS SUMMARY | 2024-11-04 23:03 | XMS_ITS | Encounter Summary ---
Author Organization [facility] Address [facility] [place] [address] [place] [address] Care Team Providers Care Tufter Name Role Phone Unavailable Primary Care Provider Unavailabl e Encounter Details Date Type Department Care Team (Late st Contact Info) Description 10/12/2017 Abstract [facility] Medical Group Family Medicine - [place] [address] [facility], [address] [place] [address] Rose Marie Norton NP [address] [place] [address] Social History Tobacco Use Types Packs/Day Years Used Date Smoking Tobacco: Never Assessed Comments Unknown Sex and Gender Information Value Date Recorded Sex Assigned at Not on file Legal Sex Female 6:50 PM CDT Gender Identity Not on file Sexual Orientation Not on file documented as of this encounter Last Filed Vital Signs Vital Sign Reading Time Taken Comments Blood Pressure 120/78 10/12/2017 12:06 PM INFORMATION SYSTEMS COORDINATOR Pulse 74 10/12/2017 12:06 PM INFORMATION SYSTEMS COORDINATOR Temperature - - Respiratory Rate - - Oxygen Saturation - - Inhaled Oxygen Concentration - - Weight 114.6 kg (252 lb 9.6 oz) 017 12:06 PM INFORMATION SYSTEMS COORDINATOR Height 160 cm (5' 3 ) 10/12/2017 12:06 PM INFORMATION SYSTEMS COORDINATOR Body Mass Index 44.75 10/12/2017 12:06 PM INFORMATION SYSTEMS COORDINATOR documented in this encounter Progress Notes * Rose Marie Norton NP - 10/12/2017 12:00 PM CST Chief Complaint Pt is complaining of vomiting and loose stools ever since starting medrol dose pack and z-pack has stopped medrol dose pack History of Present Illness HPI Free Text: Here for f/u on pneumonia and with c/o vomiting and diarrhea. She feels it is related to the medication, thus stopped medrol with some improvement. She has one day left of zithromax. She continues to feel slight SOB and if she can not get a full breath in. She is established with pulmonology and has made an appointment with them for October 17. Review of Systems Constitutional: Normal. Cardiovascular: Normal. Respiratory: shortness of breath. Gastrointestinal: vomiting and diarrhea. Active Problems 1. Back pain (724.5) (M54.9) 2. Bronchitis, acute (466.0) (J20.9) 3. Catalina vaginitis (112.1) (B37.3) 4. Esophageal reflux (530.81) (K21.9) 5. Foot pain (729.5) (M79.673) 6. Hypertension (401.9) (I10) 7. Knee pain, right (719.46) (M25.561) 8. Obesity (278.00) (E66.9) 9. Sinusitis (473.9) (J32.9) Past Medical History 1. [...] ?? Never Used Drugs Current Meds 1. Azithromycin 250 MG Oral Tablet; TAKE 2 TABLETS ON DAY 1 THEN TAKE 1 TABLET A DAY FOR 4 DAYS; Therapy: 28Lzj5473 to (Last Rx:[id number]) Requested for: [id number] Ordered Rx By: Sage Gastelum; Dispense: 0 Days ; #:6 Tablet; Refill: 0; For: Bronchitis, acute; YASSNIE = N; Verified Transmission to [facility]; Last Updated By: [facility]; 10/07/20173:59:47 PM 2. Fluconazole 150 MG Oral Tablet; take one tablet today then repeat in 2 days; Therapy: 80Imx5164 to (Evaluate:46Wli3805) Requested for: 45Olt8493; Last Rx:[id number] Ordered Rx By: Rose Marie Norton; Dispense: 2 Days ; #:2 Tablet; Refill: 0; For: Catalina vaginitis; YASSINE = N; Verified Transmission to [facility]; Last Updated By: [facility]; 05/30/2017 3:25:07 PM 3. Ibuprofen 800 MG Oral Tablet; TAKE 1 TABLET EVERY 8 HOURS WITH FOOD; Therapy: 14Nov2015 to (Evaluate:12Feb2016) Requested for: 14Nov2015; Last Rx:[id number] Ordered Rx By: Rose Marie Norton; Dispense: 30 Days ; #:90 Tablet; Refill: 2; For: Back pain; YASSINE = N; Verified Transmission to [id number]; Last Updated By: [facility]; 11/14/2015 3:00:55 PM 4. MethylPREDNISolone 4 MG Oral Tablet Therapy Pack; Take as directed on packaging; Therapy: 99Vfd9474 to (Last Rx:[id number]) Requested for: 62Jvp2752 Ordered Rx By: Sage Gastelum; Dispense: 0 Days ; #:1 X 21 Tablet Pack; Refill: 0; For: Bronchitis, acute;YASSINE = N; Verified Transmission to [facility]; Last Updated By: [facility];10/07/2017 3:59:48 PM 5. ProAir HFA 108 (90 Base) MCG/ACT Inhalation Aerosol Solution; INHALE 2 PUFFS EVERY 4 HOURS NEEDED; Therapy: 55Ojh8554 to (Last Rx:[id number]) Requested for: 29Ooi5455 Ordered Rx By: Sage Gastelum; Dispense: 0 Days ; #:1 X 8.5 GM Inhaler; Refill: 0; For: Bronchitis, acute;YASSINE = N; Verified Transmission to [facility] [address]; Msg to Pharmacy: Pharmacist: Lola swanson. You may substitute another brand of albuterol HFA inhaler (i.e. Proventil HFA, Ventolin HFA) for the ProAir HFA inhaler if needed for insurance purposes.; Last Updated By: [facility]; 10/07/2017 3:59:46 PM 6. Triamterene-HCTZ 37.5-25 MG Oral Capsule; TAKE ONE CAPSULE BY MOUTH EVERY DAY; Therapy: 73Mtv5599 to (Evaluate:91Hwi7361) Requested for: 37Rys9538; Last Rx:[id number] Ordered Rx By: Rose Marie Norton; Dispense: 30 Days ; #:30 Capsule; Refill: 5; For: Hypertension; YASSINE = N; VerifiedTransmission to [id number]; Last Updated By: [facility]; 03/14/2017 9:55:22 AM Allergies 1. No Known Drug Allergies Recorded By: Lori Beltran; 06/06/2012 10:29:10 AM Vitals Recorded: 12Oct2017 12:06PM Heart Rate 74 Respiration 16 Systolic 120 Diastolic 78 O2 Saturation 96 Height 5 ft 3 in Weight 252 lb 9.6 oz BMI Calculated 44.75 BSA Calculated 2.14 Physical Exam Constitutional General appearance: No acute distress, well appearing and well nourished. Ears, Nose, Mouth, and Throat External inspection of ears and nose: Normal. Otoscopic examination: Tympanic membranes translucent with normal light reflex. Canals patent without erythema. Oropharynx: Normal with no erythema, edema, exudate or lesions. Pulmonary Respiratory effort: No increased work of breathing or signs of respiratory distress. Auscultation of lungs: Abnormal. rhonchi over the right apex. Cardiovascular Palpation of heart: Normal PMI, no thrills. Auscultation of heart: Normal rate and rhythm, normal S1 and S2, without murmurs. Lymphatic Palpation of lymph nodes in neck: No lymphadenopathy. Psychiatric Orientation to person, place, and time: Normal. Mood and affect: Normal. Results/Data XR CHEST PA+LAT 07Oct2017 04:30PM Sage Gastelum Test Name Result Flag [...] artifact. Consider CT scan chest with contrast. Assessment 1. Pneumonia (486) (J18.9) Plan Pneumonia 1. Avoid exposure to cigarette smoke.; Status:Complete; Done: 82Dud2514 12:39PM Ordered; For:Pneumonia; Ordered By:Rose Marie Norton; 2. Seek Immediate Medical Attention if: You are coughing up blood or pink colored phlegm.; Status:Complete; Done: 82Qul4705 12:39PM Ordered; For:Pneumonia; Ordered By:Rose Marie Norton; 3. Drink at least 6 glasses of clear liquids a day.; Status:Complete; Done: 67Icg0610 12:38PM Ordered; For:Pneumonia; Ordered By:Rose Marie Norton; 4. Seek Immediate Medical Attention if: You are feeling short of breath.; Status:Complete; Done: 73Mnz7600 12:39PM Ordered; For:Pneumonia; Ordered By:Rose Marie Norton; Signatures Electronically signed by : Rose Marie Norton NP; Oct 12 2017 12:39PM INFORMATION SYSTEMS COORDINATOR (Author) documented in this encounter Plan of Treatment Not on file documented as of this encounter Visit Diagnoses Not on filedocumented in this encounter
--- OUTSIDE RECORDS SUMMARY | 2024-11-04 23:03 | XMS_ITS | Encounter Summary ---
Author Organization [facility] Address [address] [place] [address]. [place] [address] [place] [address] Care Team Providers Care Supervisor Force Adjustment Name Role Phone Unavailable Primary Care Provider Unavailabl e Reason for Visit * Reason Onset Date Comments Lab Results 05/08/2019 Encounter Details Date Type Department Care Team (Late st Contact Info) Description 05/08/2019 Telephone [facility] Medical Group Family and Sports Medicine - [place] [address] [place] [address] Rose Marie Norton, JUAN JOSE [address] [place] [address] Lab Results Social History Tobacco Use Types [...] as of this encounter Progress Notes * Kiki Newell - 05/08/2019 2:18 PM CDT I let the patient know the labs * Earnest Wong RN - 05/08/2019 2:13 PM CDT Left message for pt to call office Called patient left message on voice mail EARNEST WONG RN * Earnest Wong RN - 05/08/2019 2:11 PM CDT ----- Message from Rose Marie Norton NP sent at 05/08/2019 5:34 AM CDT ----- CMP looks great, no concerns. documented in this encounter Plan of Treatment Not on file documented as of this encounter Visit Diagnoses Not on filedocumented in this encounter
--- OUTSIDE RECORDS SUMMARY | 2024-11-04 23:03 | XMS_ITS | Encounter Summary ---
Author Organization [facility] Address [address] [place] [address]. [place], [place] [address] [place] [address] Care Team Providers Care Relaster Name Role Phone Unavailable Primary Care Provider Unavailabl e Encounter Details Date Type Department Care Team (Late st Contact Info) Description 09/10/2017 [place] [address] , Generic Conversion, Social History Tobacco Use Types Packs/Day Years [...]
--- OUTSIDE RECORDS SUMMARY | 2024-11-04 23:03 | XMS_ITS | Encounter Summary ---
Author Organization [facility] Address [address] [place] [address]. [place], [place] [address] [place] [address] Care Team Providers Care Electronic Warfare Operator Name Role Phone Unavailable Primary Care Provider Unavailabl e Reason for Visit * Auth/Cert Specialty Diagnoses / Procedures Referred By Contac t Referred To Contact Diagnoses DIVERTICULITIS Procedures COLONOSCOPY DIAGNOSTIC WITH/WITHOUT SPECIMEN BRUSH/WASH Referral ID Status Reason Start Date Expiration Date Visits Re quested Visits Authorized [id number] 1 1 Encounter Details Date Type Department Care Team (Late st Contact Info) Description 08/09/2019 7:00 AM CDT - 08/09/2019 7:30 AM CDT Surgery [facility] [place] [address] Kathy Bailey MD [address] [place] [address] [id number] COLONOSCOPY WITH polypectomy of sigmoid and rectum via hot forcep Surgery Details Date/Time Status Location OR Service Patient Class Case Class Case Type Trauma Case? 08/09/2019 7:00 AM Posted [facility]G GI Endo 3 General Short Stay/Outpat ient Surgery E - Elective No Panel 1 Procedure LRB Anes Op Region Wound Class Comments COLONOSCOPY WITH polypectomy of sigmoid and rectum via hot forcep N/A General Clean C ontaminated Surgeon Surgeon Role Service Panel Kathy Bailey MD Primary General 1 Case Notes SCHEDULED BY FAX 07/20/19 LB documented in this encounter Social History Tobacco [...] Sign Reading Time Taken Comments Blood Pressure 98/75 08/09/2019 7:29 AM CDT Pulse 81 08/09/2019 7:29 AM CDT Temperature 36.6 ??C (97.8 ??F) 08/09/2019 7:29 AM CD T Respiratory Rate 21 08/09/2019 7:29 AM CDT Oxygen Saturation 98% 08/09/2019 7:29 AM CDT Inhaled Oxygen Concentration - - [...] through Care Everywhere. * Colonoscopy Discharge Instructions (Czech) documented in this encounter H&P Notes * [...] recuperation were discussed with the patient/family/personal sales and service representative. Reasonable alternatives to the patient's proposed procedure/surgery including benefits, risks, and side effects related to the alternatives and the risks related to patient/family/personal sales and service representative verbalized understanding and desires to proceed. Source [...] patient and is documented in the clinicchart. #[id number] /NTS * Kathy Bailey MD - 07/31/2019 [...] patient and is documented in the clinicchart. #[id number] /NTS documented in this encounter OR Notes * Op Note - Kathy Bailey MD - 08/09/2019 7:27 AM CDT Tammy Cervantes is an 43-year-old female. Date of Operation: [08/09/2019] Preoperative diagnosis: Diverticulitis Postoperative diagnosis: Diverticulosis, colon polyps Procedure: Colonoscopy to cecum with hot biopsy polypectomy x2 Anesthesia: MAC Assistants: GI Nurse: Marley Marc RN mixing operator: Andrew Christianson Estimated blood loss: Minimal Specimen: [...] (08/09/2019 12:00 AM CDT) COPATH REPORT ? [facility] ? [address] [facility]. ? [place], [place] ??[address] ? [id number] ? Department of Pathology ? Pathology Report ? SURGICAL FINAL REPORT Patient Name: TAMMY CERVANTES ?? : 1975 (Age: 43) ? Location: [facility] Gender: F ?Collected Date: 08/09/2019 Med Rec #: [id number] ?Date Received: 08/09/2019 Date Reported: 08/10/2019 Provider: [...] as B1. ?? :ath Billing Fee Code(s): 84956(2) [facility] Tissue specimen (specimen) COLON STRUCTURE / Unknown 08/09/2019 7:22 AM CDT Tissue specimen (specimen) COLON STRUCTURE / Unknown 08/09/2019 7:24 AM CDT Kathy Bailey MD PATHOLOGY/CYTOLOGY ORDERABLES Fi nal Result [facility] [address] [place] [address], [place] [phone] documented in this encounter Visit Diagnoses Not [...] Pre-Op New Bag 08/09/2019 6:59 AM CDT simethicone (MYLICON) 40 MG/0.6ML suspension As needed, Starting on Tahira 08/09/19 at 0720, Until Tahira 08/09/19 at 0732, Intra-Op Given 08/09/2019 7:20 AM CDT 20 mg documented in this encounter Active and Recently [...]
--- OUTSIDE RECORDS SUMMARY | 2024-11-04 23:03 | XMS_ITS | Encounter Summary ---
Author Organization [facility] Address [address] [place] [address]. [place], [place] [address] [place] [address] Care Team Providers Care Freight Sorter Name Role Phone Unavailable Primary Care Provider Unavailabl e Encounter Details Date Type Department Care Team (Latest Contact Info) Description 12/30/2017 Abstract [facility] Medical Group Social History [...]
--- OUTSIDE RECORDS SUMMARY | 2024-11-04 23:03 | XMS_ITS | Encounter Summary ---
Author Organization [facility] Address [address] [place] [address]. [place], [place] [address] [place] [address] Care Team Providers Care Human Resource Internship Name Role Phone Unavailable Primary Care Provider Unavailabl e Reason for Visit * Reason Comments Image (SCAN) Encounter Details Date Type Department Care Team (Latest Contact Info) Description 06/17/2020 Scan [facility] Scanned, Documents Image (SCAN) Social History Tobacco Use Types Packs/Day [...] Procedure Name Priority Date/Time Associated Diagnosis Comments IMAGE GENERIC 06/17/2020 documented in this encounter Results * IMAGE GENERIC (06/17/2020) Anatomical Region Laterality Modality Other 06/17/2020 Narrative 06/17/2020 Ordered by an unspecified provider. us Documents Scanned SCANNING Final Result documented in this encounter Visit Diagnoses Not on filedocumented in this encounter
--- OUTSIDE RECORDS SUMMARY | 2024-11-04 23:03 | XMS_ITS | Encounter Summary ---
Author Organization [facility] Address [address] [place] [address]. [place] [address] [place] [address] Care Team Providers Care Kiss Setter Hand Name Role Phone Unavailable Primary Care Provider Unavailabl e Reason for Visit * Reason Onset Date Comments Error 02/19/2020 Encounter Details Date Type Department Care Team (Late st Contact Info) Description 02/19/2020 Telephone [facility] Medical Group Family and Sports Medicine - [place] [address] [place] [address] Rose Marie Norton, JUAN JOSE [address] [place] [address] Error Social History Tobacco Use Types Packs/Day [...] documented in this encounter Progress Notes * Hanh Aiken - 02/19/2020 8:51 AM CDT Error documented in this encounter Plan of Treatment Not on file documented as of this encounter Visit Diagnoses Not on filedocumented in this encounter
--- OUTSIDE RECORDS SUMMARY | 2024-11-04 23:04 | XMS_ITS | Encounter Summary ---
Author Organization [facility] Address [address] [place] [address]. [place], [place] [address] [place] [address] Care Team Providers Care Supervisor Home Energy Consultant Name Role Phone Rose Marie Norton BOTTLED BEVERAGE INSPECTOR Primary Care Provider [phone] Encounter Details Date Type Department Care Team (Latest Contact Info) Description 10/22/2016 Abstract [facility] Medical Group Social History Tobacco Use Types [...] on filedocumented in this encounter Care Teams Supervisor Home Energy Consultant Relationship Specialty Start Date End Date Rose Marie Norton, BOTTLED BEVERAGE INSPECTOR PCP - General 07/06/15 10/31/16 documented as of this encounter
--- OUTSIDE RECORDS SUMMARY | 2024-11-04 23:04 | XMS_ITS | Encounter Summary ---
Author Organization [facility] Address [address] [place] [address]. [place] [address] [place] [address] Care Team Providers Care Molecular Biologist Name Role Phone Rose Marie Norton NP Primary Care Provider [phone] Encounter Details Date Type Department Care Team (Late st Contact Info) Description 12/04/[address] [facility] - [place] [address], [address] [place] [address] Rose Marie Norton NP [address] [place], [place] [phone] Social History Tobacco Use Types Packs/Day Years Used Date Smoking Tobacco: Never Assessed Comments Unknown Sex and Gender Information Value Date Recorded Sex Assigned at Not on file Legal Sex Female 6:50 PM CDT Gender Identity Not on file Sexual Orientation Not on file documented as of this encounter Last Filed Vital Signs Vital Sign Reading Time Taken Comments Blood Pressure 124/78 12/04/2015 3:23 PM PLANOGRAPH OPERATOR Pulse 98 12/04/2015 3:23 PM PLANOGRAPH OPERATOR Temperature - - Respiratory Rate - - Oxygen Saturation - - Inhaled Oxygen Concentration - - Weight 113.4 kg (250 lb) 12/04/2015 3:23 PM PLANOGRAPH OPERATOR Height 160 cm (5' 3 ) 12/04/2015 3:23 PM PLANOGRAPH OPERATOR Body Mass Index 44.29 12/04/2015 3:23 PM PLANOGRAPH OPERATOR documented in this encounter Progress Notes * Rose Marie Norton NP - 12/04/2015 3:20 PM CST Reason For Visit Reason For Visit: Acute Visit Chief Complaint C/O COUGHING, STUFFY NOSE, HEADACHE X 3 DAYS,FEVER THIS MORNING- 101- TOOK IBUPROFEN 800MG THIS MORNING History of Present Illness HPI Free Text: c/o 3 days of cough, green nasal dc, fever x 2 days. Taking ibuprofen. Review of Systems Constitutional: fever and feeling poorly. ENT: sore throat and nasal discharge, but no earache. Cardiovascular: Normal. Respiratory: cough. Gastrointestinal: Normal. Active Problems 1. Back pain (724.5) (M54.9) 2. Esophageal reflux (530.81) (K21.9) 3. Foot pain (729.5) (M79.673) 4. Hypertension (401.9) (I10) 5. Knee pain, right (719.46) (M25.561) 6. Obesity (278.00) (E66.9) Past Medical History 1. History of Cough (786.2) (R05) 2. History of Cough (786.2) (R05) 3. History of acute bronchitis (V12.69) (Z87.09) 4. History of acute sinusitis (V12.69) (Z87.09) 5. History of onychomycosis (V12.09) (Z86.19) 6. History of scabies (V12.09) (Z86.19) 7. History of streptococcal pharyngitis (V12.09) (Z87.09) 8. History of tinea corporis (V12.09) (Z86.19) 9. History of tinea cruris (V12.09) (Z86.19) Surgical History Patient indicates no past surgical history. Family History Mother 1. No pertinent family history Family History 2. No pertinent family history Social History ?? Current some day smoker (305.1) (F17.210) ?? Never Drank Alcohol ?? Never Used Drugs Current Meds 1. Ibuprofen 800 MG Oral Tablet; TAKE 1 TABLET EVERY 8 HOURS WITH FOOD; Therapy: 14Nov2015 to (Evaluate:12Feb2016) Requested for: 14Nov2015; Last Rx:14Nov2015 Ordered Rx By: Rose Marie Norton; Dispense: 30 Days ; #:90 Tablet; Refill: 2; For: Back pain; YASSINE = N; Verified Transmission to [facility]; Last Updated By: basno; 11/14/2015 3:00:55 PM 2. Triamterene-HCTZ 37.5-25 MG Oral Capsule; TAKE 1 CAPSULE DAILY; Therapy: [id number] to (Evaluate:08Nov2016) Requested for: 14Nov2015; Last Rx:14Nov2015 Ordered Rx By: Rose Marie Norton; Dispense: 30 Days ; #:30 Capsule; Refill: 11; For: Hypertension; YASSINE = N; Verified Transmission to [facility]; Last Updated By: basno; 11/14/2015 3:00:56 PM Allergies 1. No Known Drug Allergies Recorded By: Lori Beltran; 06/06/2012 10:29:10 AM Vitals Recorded: 04Dec2015 03:23PM Temperature 98.6 F Heart Rate 98 Systolic 124 Diastolic 78 O2 Saturation 98 Height 5 ft 3 in Weight 250 lb BMI Calculated 44.29 BSA Calculated 2.13 Physical Exam Constitutional General appearance: No acute distress, well appearing and well nourished. Ears, Nose, Mouth, and Throat External inspection of ears and nose: Normal. Otoscopic examination: Tympanic membranes translucent with normal light reflex. Canals patent without erythema. Oropharynx: Abnormal. PND. Pulmonary Respiratory effort: No increased work of breathing or signs of respiratory distress. Auscultation of lungs: Clear to auscultation. Cardiovascular Palpation of heart: Normal PMI, no thrills. Auscultation of heart: Normal rate and rhythm, normal S1 and S2, without murmurs. Psychiatric Orientation to person, place, and time: Normal. Mood and affect: Normal. Assessment 1. Sinusitis (473.9) (J32.9) Plan Sinusitis 1. Azithromycin 250 MG Oral Tablet; Take 2 tablets today, then 1 tablet daily for 4 days Rx By: Rose Marie Norton; Dispense: 0 Days ; #:6 Tablet; Refill: 0; For: Sinusitis; YASSINE = N; Verified Transmission to [facility]; Last Updated By: basno; 12/04/2015 3:57:28 PM 2. Apply warm moist compresses to the affected area 3 times a day for 5 minutes.; Status:Complete; Done: 04Dec2015 09:21PM Ordered; For:Sinusitis; Ordered By:Rose Marie Norton; 3. Drink at least 6 glasses of water or juice a day.; Status:Complete; Done: 04Dec2015 09:21PM Ordered; For:Sinusitis; Ordered By:Rose Marei Norton; 4. Irrigate your nose twice a day.; Status:Complete; Done: 04Dec2015 09:21PM Ordered; For:Sinusitis; Ordered By:Rose Marie Norton; 5. Taking a hot steamy shower may help your condition.; Status:Complete; Done: 04Dec2015 09:21PM Ordered; For:Sinusitis; Ordered By:Rose Marie Norton; Signatures Electronically signed by : Rose Marie Norton NP; Dec 04 2015 9:21PM PLANOGRAPH OPERATOR (Author) documented in this encounter Plan of Treatment Not on file documented as of this encounter Visit Diagnoses Not on filedocumented in this encounter Care Teams Molecular Biologist Relationship Specialty Start Date End Date Rose Marie Norton NP PCP - General 07/06/15 10/31/16 documented as of this encounter
--- OUTSIDE RECORDS SUMMARY | 2024-11-04 23:04 | XMS_ITS | Encounter Summary ---
Author Organization [facility] Address [address] [place] [address]. [place] [address] [place] [address] Care Team Providers Care Lead Warehouse Associate Name Role Phone Rose Marie Norton AUTOMOBILE ACCESSORIES SALESPERSON Primary Care Provider [phone] Rose Marie Norton NP Primary Care Provider [phone] Encounter Details Date Type Department Care Team (Late st Contact Info) Description 07/03/2015 Abstract [facility] Family Medicine - [place] [address], [address] [place] [address] Rose Marie Norton, AUTOMOBILE ACCESSORIES SALESPERSON [address] [place] [phone] Social History Tobacco Use Types Packs/Day Years Used Date Smoking Tobacco: Never Assessed Comments Unknown Sex and Gender Information Value Date Recorded Sex Assigned at Not on file Legal Sex Female 6:50 PM CDT Gender Identity Not on file Sexual Orientation Not on file documented as of this encounter Last Filed Vital Signs Vital Sign Reading Time Taken Comments Blood Pressure 140/80 07/03/2015 3:46 PM CDT Pulse - - Temperature - - Respiratory Rate - - Oxygen Saturation - - Inhaled Oxygen Concentration - - Weight 110.2 kg (243 lb) 07/03/2015 3:46 PM CDT Height 160 cm (5' 3 ) 07/03/2015 3:46 PM CDT Body Mass Index 43.05 07/03/2015 3:46 PM CDT documented in this encounter Progress Notes * Rose Marie Norton NP - 07/03/2015 3:45 PM CDT Reason For Visit Reason For Visit: Acute Visit Chief Complaint C/O HIGH BP WHILE AT WORK ONE DAY HER BP WAS 140/104 History of Present Illness HPI Free Text: Blood pressure has been running 130/84 on average. She did have one episode of hypertension. Has had a headache times one when blood pressure was elevated. Review of Systems Constitutional: Normal. Cardiovascular: Normal. Respiratory: Normal. Active Problems 1. Back pain (724.5) (M54.9) 2. Esophageal reflux (530.81) (K21.9) 3. Foot pain (729.5) (M79.673) 4. Hypertension (401.9) (I10) 5. Knee pain, right (719.46) (M25.561) Past Medical History 1. History of Cough (786.2) (R05) 2. History of Cough (786.2) (R05) 3. History of acute bronchitis (V12.69) (Z87.09) 4. History of acute sinusitis (V12.69) (Z87.09) 5. History of onychomycosis (V12.09) (Z86.19) 6. History of scabies (V12.09) (Z86.19) 7. History of streptococcal pharyngitis (V12.09) (Z86.19) 8. History of tinea corporis (V12.09) (Z86.19) 9. History of tinea cruris (V12.09) (Z86.19) Surgical History Patient indicates no past surgical history. Family History Mother 1. No pertinent family history Family History 2. No pertinent family history Social History ?? Current some day smoker (305.1) (Z72.0) ?? Never Drank Alcohol ?? Never Used Drugs Current Meds 1. Hydrochlorothiazide 12.5 MG Oral Tablet; TAKE 1 TABLET DAILY IN THE MORNING; Therapy: [id number] to (Evaluate:62Hvl8428) Requested for: 06Mar2015; Last Rx:06Mar2015 Ordered Rx By: Rose Marie Norton; Dispense: 30 Days ; #:30 Tablet; Refill: 0; For: Hypertension; YASSINE = N; Verified Transmission to [facility]; Last Updated By: GlySure; 07/03/2015 4:03:16 PM Allergies 1. No Known Drug Allergies Recorded By: Lori Beltran; 06/06/2012 10:29:10 AM Vitals Recorded: 03Jul2015 03:46PM Systolic 140 Diastolic 80 Height 5 ft 3 in Weight 243 lb BMI Calculated 43.05 BSA Calculated 2.1 Physical Exam Constitutional General appearance: No acute distress, well appearing and well nourished. Pulmonary Respiratory effort: No increased work of breathing or signs of respiratory distress. Auscultation of lungs: Clear to auscultation. Cardiovascular Palpation of heart: Normal PMI, no thrills. Auscultation of heart: Normal rate and rhythm, normal S1 and S2, without murmurs. Psychiatric Orientation to person, place, and time: Normal. Mood and affect: Normal. Assessment 1. Hypertension (401.9) (I10) Plan Hypertension 1. Hydrochlorothiazide 12.5 MG Oral Tablet Rx By: Rose Marie Norton; Dispense: 30 Days ; #:30 Tablet; Refill: 0; For: Hypertension; YASSINE = N; Sent To: [facility]2719 2. Triamterene-HCTZ 37.5-25 MG Oral Capsule; TAKE 1 CAPSULE DAILY Rx By: Rose Marie Norton; Dispense: 30 Days ; #:30 Capsule; Refill: 1; For: Hypertension; YASSINE = N; VerifiedTransmission to [facility] #2713; Last Updated By: GlySure; 07/03/2015 4:03:46 PM 3. CBC W Differential; Status:Active; Requested for:[id number]; Perform:[facility]; Due:02Aug2015; Last Updated By:Melissa Lema; 07/03/2015 4:05:07 PM;Ordered; For:Hypertension; Ordered By:Rose Marie Norton; 4. Compr Metabolic Prof ( CMP ); Status:Active; Requested for:[id number]; Perform:[facility]; Due:02Aug2015; Last Updated By:Melissa Lema; 07/03/2015 4:05:07 PM;Ordered; For:Hypertension; Ordered By:Rose Marie Norton; 5. Lipid Profile; Status:Active; Requested for:[id number]; [facility]; Due:[id number]; Last Updated By:Melissa Lema; 07/03/2015 4:05:07 PM;Ordered; For:Hypertension; Ordered By:Rose Marie Norton; 6. TSH W Reflex Free T4; Status:Active; Requested for:[id number]; [facility]; Due:[id number]; Last Updated By:Melissa Lema; 07/03/2015 4:05:07 PM;Ordered; For:Hypertension; Ordered By:Rose Marie Norton; Hypertension, Obesity 7. Trokendi XR 50 MG Oral Capsule Extended Release 24 Hour; TAKE 1 CAPSULE Bedtime Rx By: Rose Marie Norton; Dispense: 30 Days ; #:30 Capsule Extended Release 24 Hour; Refill: 1; For: Hypertension, Obesity; YASSINE = N; Print Rx f/u in 1 month for visit Signatures Electronically signed by : Rose Marie Norton NP; Jul 04 2015 9:53AM CHEMICAL PLANT OPERATOR SUPERVISOR (Author) documented in this encounter Plan of Treatment Not on file documented as of this encounter Procedures Procedure Name Priority Date/Time Associated Diagnosis Comments TSH W/REFLEX Routine 07/06/2015 11:12 AM CDT COMPREHENSIVE METABOLIC PANEL Routine 07/06/2015 11:12 AM CDT LIPID PANEL Routine 07/06/2015 11:12 AM CDT CBC W/DIFF AUTOMATED Routine 07/06/2015 11:12 AM CDT documented in this encounter Results * (ABNORMAL) CBC W/DIFF AUTOMATED (07/06/2015 11:12 AM CDT) WBC 9.1 4.8 - 10.8 X10'3/uL [facility] RBC 4.64 4.20 - 5.40 X10'6/uL [facility] CON[facility] HGB 13.4 12.0 - 16.0 g/dL [facility] HCT 41.2 38.0 - 48.0 % [facility] CONVERSION MCV 88.8 81.0 - 99.0 fL [facility] CONVERSION MCH 28.9 27.0 - 31.0 pg [facility] CONVERSION MCHC 32.5 32.0 - 36.0 g/dL [facility] CONVERSION RDW 13.3 11.5 - 14.5 % [facility] CONVERSION PLT 270 130 - 400 X10'3/uL [facility] CONVERSION GLUCOSE 11.0 9.3 - 12.2 fL [facility] CONVERSION BASOPHILS % 0.8 0.0 - 1.0 % [facility] CONVERSION EOSINOPHILS % 3.4(H) 1.0 - 3.0 % [facility] CONVERSION NEUTROPHILS % 57.3 43.0 - 65.0 % [facility] CONVERSION LYMPHOCYTES % 33.1 20.0 - 46.0 % [facility] CONVERSION MONOCYTES % 5.1 5.0 - 12.0 % [facility] CON[facility] IMMATURE GRANS % 0.3 0.0 - 1.0 % [facility] CONVERSION DIFFERENTIAL TYPE AUTOMATED [facility] CONVERSION 07/06/2015 11:1 2 AM CDT 07/06/2015 11:12 AM CDT Narrative [facility] - 07/06/2015 5:09 PM CDT Result Communication: No patient communication needed at this time Rose Marie Norton NP LABORATORY Final Result [facility] CON[facility] * COMPREHENSIVE METABOLIC PANEL (07/06/2015 11:12 AM CDT) SODIUM S/P/B 139 136 - 145 mmol/L [facility] CONVERSION POTASSIUM S/P/B 4.8 3.5 - 5.1 mmol/L [facility] TO [facility] CONVERSION CHLORIDE S/P/B 104 98 - 107 mmol/L [facility] CONVERSION CO2 25 22 - 29 mmol/L [facility] TO [facility] CONVERSION ANION GAP 15 8 - 20 [facility] T O EPIC CONVERSION BUN 17 8 - 23 mg/dL [facility] TO [facility] CONVERSION CREATININE S/P/B 0.87 0.60 - 1.10 mg/dL [facility] CONVERSION GFR ESTIMATE >60 >60 mL/min/1 .73m'2 [facility] TO [facility] CONVERSION EGFR AFR. AMER. >60 NOTE: eGFR is not calculated for patients <18 years of age. This is an estimated GFR (CKD EPI) and should not be used for calculating drug doses. >60 mL/min/1 .73m'2 [facility] TO [facility]IC CONVERSION GLUCOSE 90 70 - 99 mg/dL [facility] CONVERSION CALCIUM S/P/B 9.2 8.6 - 10.2 mg/dL [facility] TO [facility] CONVERSION BILIRUBIN TOTAL S/P/B 0.3 0.2 - 1.2 mg/dL [facility] CONVERSION AST 19 0 - 32 IU/L [facility] TO [facility] CONVERSION ALT 22 0 - 33 IU/L [facility] CONVERSION ALKALINE PHOSPHATASE S/P/B 77 35 - 104 IU/L [facility] CONVERSION TOTAL PROTEIN S/P/B 6.5 6.4 - 8.3 g/dL [facility] CONVERSION ALBUMIN S/P/B 4.2 3.5 - 5.2 g/dL [facility] CONVERSION GLOBULIN 2.3 2.3 - 3.6 g/dL [facility] CONVERSION A/G RATIO 1.8 1.0 - 2.0 [facility] CONVERSION 07/06/2015 11:1 2 AM CDT 07/06/2015 11:12 AM CDT Narrative [facility] CONVERSION - 07/06/2015 6:13 PM CDT Result Communication: No patient communication needed at this time Rose Marie Norton NP LABORATORY Final Result [facility] TO [facility] CONVERSION * (ABNORMAL) LIPID PANEL (07/06/2015 11:12 AM CDT) [facility] CHOLESTEROL 205(H) <200 mg/dL [facility] CONVERSION Comment: Result Comment: NOTE: Acetaminophen, N Acetyl p benzoquinone imine (NAPQI), N acetylcysteine (NAC), Metamizole, 4 Aminoantipyrine (4 AAP) and 4 Methylamino antipyrine (4 MAP) at high concentrations can cause falsely low results on Lactate, Uric Acid, Cholesterol, Triglyceride, HDL, and Direct LDL. TRIGLYCERIDES 54 <150 mg/dL [facility] TO [facility] CONVERSION HDL 51(L) >59 mg/dL [facility] CONVERSION LDL (CALCULATED) 143(H) <100 mg/dL [facility] TO [facility] CONVERSION NON HDL CHOLESTEROL 154(H) <130 mg/dL [facility] CONVERSION Comment: Result Comment: NOTE: WHEN THE TRIGLYCERIDES ARE >200 mg/dL, NON HDL C IS A SECONDARY TARGET OF THERAPY, WITH A GOAL 30 mg/dL HIGHER THAN THE IDENTIFIED LDL C GOAL. CHOL/HDL RATIO 4.0 0.0 - 4.5 [facility] CONVERSION VLDL CHOLESTEROL (LMP) 11 5 - 55 mg/dL [facility] TO [facility] CONVERSION LIPID INTERPRETATION NIH CONCENSUS REPORT RECOMMENDATI ONS: ?ADULT ?CHILD ??LOW RISK: ?CHOLESTERO L ? <200 ? <170 ?TRIGLYCERI DE ?<150 ?--- ?HDL ? >=60 ?--- ?LDL ? <100 ? <110 ?BORDERLINE : ?CHOLESTERO L ? 200-239 ?? 170-199 ?TRIGLYCERI DE ?150-199 ? --- ?HDL ?40-59 ?--- ?LDL ? 100-159 ?? 110-129 ?HIGH RISK: ?CHOLESTERO L ? >=240 ?>=200 ?TRIGLYCERI DE ?>=200 ? --- ?HDL ?<40 ?--- ?LDL ? >=160 ?>=130 [facility] CONVERSION 07/06/2015 11:1 2 AM CDT 07/06/2015 11:12 AM CDT Narrative [facility] CONVERSION - 07/06/2015 6:13 PM CDT Result Communication: No patient communication needed at this time us Rose Marie Norton AUTOMOBILE ACCESSORIES SALESPERSON LABORATORY Final Result [facility] TO [facility] CONVERSION * TSH W/REFLEX (SNS) (07/06/2015 11:12 AM CDT) TSH 1.67 0.27 - 4.20 mIU/mL [facility] CONVERSION Comment:Result Comment: FREE T4 NOT INDICATED 07/06/2015 11:1 2 AM CDT 07/06/2015 11:12 AM CDT Narrative [facility] CONVERSION - 07/06/2015 6:13 PM CDT Result Communication: No patient communication needed at this time us Rose Marie Norton AUTOMOBILE ACCESSORIES SALESPERSON LABORATORY Final Result [facility] CON[facility] documented in this encounter Visit Diagnoses Not on filedocumented in this encounter Care Teams Lead Warehouse Associate Relationship Specialty Start Date End Date Rose Marie Norton AUTOMOBILE ACCESSORIES SALESPERSON PCP - General 07/06/15 10/31/16 Rose Marie Norton NP PCP - General 03/02/15 07/05/15 documented as of this encounter
--- OUTSIDE RECORDS SUMMARY | 2024-11-04 23:04 | XMS_ITS | Encounter Summary ---
Author Organization [facility] Address [address] [place] [address]. [place], [place] [address] [place] [address] Care Team Providers Care Glass Tinter Name Role Phone Rose Marie Norton DAIRY SCIENTIST Primary Care Provider + Rose Marie Norton NP Primary Care Provider + Md Generic Madison MD Primary Care Provider Unavailable Ashly Little MD Primary Care Provider + Ashly Little MD Primary Care Provider + Ashly Little MD Primary Care Provider + Ashly Little MD Primary Care Provider + Ashly Little MD Primary Care Provider + Encounter Details Date Type Department Care Team (Late st Contact Info) Description 02/18/2014 Abstract [facility] Family Medicine - [place] [address] [facility], [address] [place] [address] Rose Marie Norton, DAIRY SCIENTIST [address] [place] [address] Social History Tobacco Use Types Packs/Day Years Used Date Smoking Tobacco: Never Assessed Comments Unknown Sex and Gender Information Value Date Recorded Sex Assigned at Not on file Legal Sex Female 6:50 PM CDT Gender Identity Not on file Sexual Orientation Not on file documented as of this encounter Last Filed Vital Signs Vital Sign Reading Time Taken Comments Blood Pressure 128/82 02/18/2014 11:08 AM CDT Pulse 90 02/18/2014 11:08 AM CDT Temperature - - Respiratory Rate - - Oxygen Saturation - - Inhaled Oxygen Concentration - - Weight 110.7 kg (244 lb) 02/18/2014 11:08 AM CDT Height - - Body Mass Index 43.22 01/22/2014 8:48 AM CDT documented in this encounter Progress Notes * Rose Marie Norton DAIRY SCIENTIST - 02/18/2014 11:00 AM CDT Reason For Visit Reason For Visit: Acute Visit Chief Complaint 1. Cold Symptoms 2. Cough pt complains of cold sx for 4 days, coughing up colorful mucous , has done home remedies such as tea and honey with no relief. History of Present Illness Cold Symptoms: Maria Del Carmen Cervantes presents with complaints of cold symptoms. Associated symptoms include nasal congestion, runny nose, post nasal drainage, scratchy throat, sore throat, productive cough, shortness of breath, fatigue and chills, but no hoarseness, no dry cough, no facial pressure, no facial pain, no headache, no plugged ear(s), no ear pain, no swollen lymph nodes, no wheezing, no weakness, no nausea, no diarrhea and no fever. Review of Systems Focused-Female: Constitutional: feeling poorly and feeling tired. ENT: nasal discharge. Cardiovascular: Normal. Respiratory: shortness of breath and cough. Gastrointestinal: Normal. Genitourinary: Normal. Integumentary: Normal. Musculoskeletal: Normal. Neurological: Normal. Psychiatric: Normal. Active Problems 1. Back pain (724.5) (M54.9) 2. Esophageal reflux (530.81) (K21.9) 3. Foot pain (729.5) (M79.673) 4. Hypertension (401.9) (I10) 5. Knee pain, right (719.46) (M25.561) Past Medical History 1. History of Cough (786.2) (R05) 2. History of onychomycosis (V12.09) (Z86.19) 3. History of tinea corporis (V12.09) (Z86.19) 4. History of tinea cruris (V12.09) (Z86.19) Surgical History Patient indicates no past surgical history. Family History Mother 1. No pertinent family history Family History 2. No pertinent family history Social History ?? Current some day smoker (305.1) (Z72.0) ?? Never Drank Alcohol ?? Never Used Drugs Current Meds 1. Azithromycin 250 MG Oral Tablet (Zithromax); TAKE 2 TABLETS ON DAY 1 THEN TAKE 1 TABLET A DAY FOR 4 DAYS; Therapy: 20Nov2013 to (Last Rx:20Nov2013) Requested for: 20Nov2013 Ordered Rx By: Ashly Little; Dispense: 0 Days ; #:6 Tablet; Refill: 0; For: PMH: Cough; YASSINE = N; Verified Transmission to [facility]13 2. Ciclodan 8 % External Solution; APPLY AND GENTLY MASSAGE INTO AFFECTED AREA(S) TWICE DAILY; Therapy: 15Oct2013 to (Last Rx:10Dec2013) Requested for: 10Dec2013 Ordered Rx By: Rose Marie Norton; Dispense: 0 Days ; #:1 X 6.6 ML Bottle; Refill: 3; For: PMH: History of onychomycosis; YASSINE = N; Record 3. Fluticasone Propionate 50 MCG/ACT Nasal Suspension; USE 2 SPRAYS IN EACH NOSTRIL ONCE DAILY; Therapy: 21Nov2013 to (Last Rx:21Nov2013) Requested for: 21Nov2013 Ordered Rx By: Ashly Little; Dispense: 0 Days ; #:2 X 16 GM Bottle; Refill: 3; For: PMH: Cough, PMH: History of onychomycosis; YASSINE = N; Verified Transmission to [facility]; Last Updated By: Melissa Lema; 11/21/2013 10:14:11 AM 4. Lisinopril-Hydrochlorothiazide 10-12.5 MG Oral Tablet; TAKE 1 TABLET DAILY; Therapy: (Recorded:16Lks5835) to Recorded Dispense: 90 Days ; #:90 Tablet; Refill: 0; For: Hypertension; YASSINE = N; Record; Last Updated By: Lori Beltran; 06/05/2012 11:43:03 AM 5. Naproxen 500 MG Oral Tablet; TAKE 1 TABLET EVERY 12 HOURS NEEDED; Therapy: 02Suw5061 to (Evaluate:17Frl9393); Last Rx:08Oct2013 Ordered Rx By: Ashly Little; Dispense: 15 Days ; #:30 Tablet; Refill: 0; For: Knee pain, right; YASSINE = N; Print Rx; Last Updated By: Rose Marie Norton; 12/10/2013 4:01:33 PM 6. Nasonex 50 MCG/ACT Nasal Suspension; Inhale 2 sprays in each nostril once daily; Therapy: 20Nov2013 to (Last Rx:20Nov2013) Requested for: 20Nov2013 Ordered Rx By: Ashly Little; Dispense: 0 Days ; #:1 GM; Refill: 5; For: PMH: Cough; YASSINE = N; Verified Transmission to [facility]0910 7. Omeprazole 40 MG Oral Capsule Delayed Release; TK 1 C PO D; Therapy: 22Nov2012 to (Evaluate:17Nov2013); Last Rx:22Nov2012 Ordered Rx By: Ashly Little; Dispense: 90 Days ; #:1 X 90 EA Bottle; Refill: 3; For: Esophageal reflux; YASSINE= N; Print Rx; Last Updated By: Rose Marie Norton; 12/10/2013 4:01:33 PM Allergies 1. No Known Drug Allergies Recorded By: Lori Beltran; 06/06/2012 10:29:10 AM Vitals Vital Signs [Data Includes: Current Encounter] Recorded by : Melissa Lema at 18Feb2014 11:08AM Temperature 98.1 F Heart Rate 90 Blood Pressure 82 mm Hg 128 mm Hg O2 Saturation 98 Weight 244 lb BMI Calculated 43.22 kg/m2 BSA Calculated 2.1 m2 Physical Exam Constitutional General appearance: No acute [...] of respiratory distress. Auscultation of lungs: Abnormal. Diminished breath sounds over both bases. Cardiovascular Palpation of heart: Normal PMI, no thrills. Lymphatic Palpation of lymph nodes in neck: No lymphadenopathy. Psychiatric Mood and affect: Normal. Assessment 1. No pertinent family history : Family History, Mother 2. Acute bronchitis (466.0) (J20.9) Plan 1. Start: Azithromycin 250 MG Oral Tablet; Take 2 tablets today, then 1 tablet daily for 4 days Rx By: Rose Marie Norton; Dispense: 0 Days ; #:6 Tablet; Refill: 0; For: Acute bronchitis; YASSINE = N; Sent To:[facility]8902 2. Start: ProAir HFA 108 (90 Base) MCG/ACT Inhalation Aerosol Solution; Take 2 puffs one-minute apart every 4 or more hours as needed for wheeze Rx By: Rose Marie Norton; Dispense: 0 Days ; #:1 X 8.5 GM Inhaler; Refill: 0; For: Acute bronchitis; YASSINE = N; Sent To: [facility]4328 3. Avoid exposure to cigarette smoke. Status: Complete Done: 65Gvb3325 Ordered; For: Acute bronchitis; Ordered By: Rose Marie Norton 4. Drink plenty of fluids. Status: Complete Done: 71Rvt9465 Ordered; For: Acute bronchitis; Ordered By: Rose Marie Norton 5. Use a cool mist humidifier in the room. Status: Complete Done: 17Mpp0253 Ordered; For: Acute bronchitis; Ordered By: Rose Marie Norton Signatures Electronically signed by : Rose Marie Norton NP; Feb 18 2014 11:21AM CUTTING MACHINE OPERATOR (Author) Electronically signed by : Ashly Little M.D.; Feb 19 2014 2:39PM CUTTING MACHINE OPERATOR (Review) documented in this encounter Plan of Treatment Not on file documented as of this encounter Procedures Procedure Name Priority Date/Time Associated Diagnosis Comments XR CHEST 2V+NIPPLE MARKER Routine 02/23/2014 3:51 PM CDT documented in this encounter Results * XR CHEST 2V+NIPPLE MARKER (02/23/2014 3:51 PM CDT) Anatomical Region Laterality Modality Chest Radiographic Rosi ging 02/23/2014 3:51 PM CDT 02/23/2014 3:51 PM CDT Narrative 02/23/2014 7:01 PM CDT MARIA DEL CARMEN CERVANTES ORDERING MD: ASHLY LITTLE MD ?? ACCT: [id number] ?? ADMIT/SERVICE DATE: 02/23/14 DISCHARGE DATE: ?? : 1975 PT TYPE: REG CLI ?? SEX: F ORD SITE: [facility] ? STUDY DATE REPORT # PROCEDURE CODE PROCEDURE ?? 02/23/14 [id number] CXR2V XR CHEST 2 VIEW ? EXTORDERID ? [id number] ? ACCESSION NUMBER ?? [id number] ?CHART DOCUMENT ? IMPRESSION: ? NO ACUTE PROCESS IS SEEN WITHIN THE CHEST. ? HISTORY: ??COUGH FOR 2 WEEKS. ? TWO VIEWS OF THE CHEST ? COMPARISON: ??NO COMPARISONS. ? FINDINGS: ??PA AND LATERAL RADIOGRAPHS OF THE CHEST WERE OBTAINED AND ?? DEMONSTRATE HEART SIZE AND PULMONARY VASCULATURE TO BE WITHIN NORMAL ?? LIMITS. ??THERE ARE NO PULMONARY CONSOLIDATIONS OR PLEURAL EFFUSIONS. ? ELECTRONICALLY SIGNED BY: ?? JESSEE MADISON M.D. 02/23/2014 19:00 ?? JESSEE MADISON M.D. ? D: ??02/23/2014 ??3:51 P ??#[id number] ?? T: ??02/23/2014 ??6:22 P/MA ? CC: ?ASHLY LITTLE M.D. ? Procedure Note Tam Gilbert MD - 08/31/2018 MARIA DEL CARMEN CERVANTES ORDERING MD: ASHLY LITTLE MD ACCT: [id number] ADMIT/SERVICE DATE: 02/23/14 DISCHARGE DATE: : 1975 PT TYPE: REG CLI SEX: F ORD SITE: [facility] STUDY DATE REPORT # PROCEDURE CODE PROCEDURE 02/23/14 [id number] CXR2V XR CHEST 2 VIEW EXTORDERID [id number] ACCESSION NUMBER [id number] CHART DOCUMENT IMPRESSION: NO ACUTE PROCESS IS SEEN WITHIN THE CHEST. HISTORY: COUGH FOR 2 WEEKS. TWO VIEWS OF THE CHEST COMPARISON: NO COMPARISONS. FINDINGS: PA AND LATERAL RADIOGRAPHS OF THE CHEST WERE OBTAINED AND DEMONSTRATE HEART SIZE AND PULMONARY VASCULATURE TO BE WITHIN NORMAL LIMITS. THERE ARE NO PULMONARY CONSOLIDATIONS OR PLEURAL EFFUSIONS. ELECTRONICALLY SIGNED BY: JESSEE MADISON M.D. 02/23/2014 19:00 JESSEE MADISON M.D. P #[id number] P/CALEB CC: ASHLY LITTLE M.D. Ashly Little MD GENERAL IMAGING Final Result documented in this encounter Visit Diagnoses Not on filedocumented in this encounter Care Teams Glass Tinter Relationship Specialty Start Date End Date Rose Marie Norton NP PCP - General 8/30/15 12/25/16 Rose Marie Norton NP PCP - General 03/02/15 07/05/15 Tam Gilbert MD PCP - General 12/18/14 Ashly Little MD [address] [place] [address] PCP - General 10/12/14 12/17/14 Ashly Little MD [address] [place] [address] PCP - General 06/28/14 10/11/14 Ashly Little MD [address] [place] [address] PCP - General 04/14/14 06/27/14 Ashly Little MD [address] [place] [address] PCP - General 02/23/14 04/13/14 Ashly Little MD [address] [place] [address] PCP - General 02/07/14 02/22/14 documented as of this encounter
--- OUTSIDE RECORDS SUMMARY | 2024-11-04 23:04 | XMS_ITS | Encounter Summary ---
Author Organization [facility] Address [facility]. [place], [place] [address] [place] [address] Care Team Providers Care Remote Inpatient Coder Name Role Phone Rose Marie Norton CABLE CUTTER AND SWAGER Primary Care Provider + Rose Marie Norton CABLE CUTTER AND SWAGER Primary Care Provider + Tam Gilbert MD Primary Care Provider Unavailable Iglesia Little MD Primary Care Provider + Encounter Details Date Type Department Care Team (Latest Contact Info) Description 10/17/[address] [facility] Social History Tobacco Use Types [...] on filedocumented in this encounter Care Teams Remote Inpatient Coder Relationship Specialty Start Date End Date Rose Marie Norton, CABLE CUTTER AND SWAGER PCP - General 07/06/15 10/31/16 Rose Marie Norton CABLE CUTTER AND SWAGER PCP - General 03/02/15 07/05/15 Tam Gilbert MD PCP - General 12/18/14 Iglesia Litlte MD [address] [place] [address] [address] [place] [address] PCP - General 10/12/14 12/17/14 documented as of this encounter
--- OUTSIDE RECORDS SUMMARY | 2024-11-04 23:04 | XMS_ITS | Encounter Summary ---
Author Organization [facility] Address [address] [place] [address]. [place], [place] [address] [place] [address] Care Team Providers Care Production Control Planner Name Role Phone Rose Marie Norton SMUDGER Primary Care Provider + Rose Marie Norton SMUDGER Primary Care Provider + , Generic Conversion MD Primary Care Provider Unavailable Iglesia Little MD Primary Care Provider + Iglesia Little MD Primary Care Provider + Iglesia Little MD Primary Care Provider + Iglesia Little MD Primary Care Provider + Iglesia Little MD Primary Care Provider + Iglesia Little MD Primary Care Provider + Encounter Details Date Type Department Care Team (Latest Contact Info) Description 10/09/2013 Abstract [facility] Iglesia Little MD [address] [address] Social History Tobacco Use Types Packs/Day Years [...] Name Priority Date/Time Associated Diagnosis Comments XR KNEE RT 3 VIEW Routine 10/09/2013 11: 49 AM DIRECTOR PAID MEDIA documented in this encounter Results * XR KNEE RT 3 VIEW (10/09/2013 11:49 AM DIRECTOR PAID MEDIA) Anatomical Region Laterality Modality Knee Radiographic Rosi ging 10/09/2013 11:4 9 AM DIRECTOR PAID MEDIA 10/09/2013 11:49 AM DIRECTOR PAID MEDIA Narrative 10/09/2013 2:56 PM DIRECTOR PAID MEDIA TAMMY CERVANTES MD: IGLESIA LITTLE MD ?? ACCT: [id number] ?? : 1975 PT TYPE: REG CLI ?? SEX: F ORD SITE: [facility] [place] [facility] ? STUDY DATE REPORT # PROCEDURE CODE PROCEDURE ?? 10/09/13 [id number] XR KNEE 3 VIEW RT ? EXTORDERID ? [id number] ? ACCESSION NUMBER ?? [id number] ?CHART DOCUMENT ? IMPRESSION: ? JOINT EFFUSION AND PREPATELLAR SOFT TISSUE SWELLING WITHOUT EVIDENCE OF AN ?? ACUTE FRACTURE OR DISLOCATION. ??IF THERE IS CLINICAL CONCERN FOR ACUTE ?? INTERNAL DERANGEMENT, MRI IS RECOMMENDED. ? EARLY MEDIAL COMPARTMENT JOINT SPACE NARROWING. ? HISTORY: ??ANTERIOR AND MEDIAL KNEE PAIN. ? THREE VIEWS OF THE RIGHT KNEE ? COMPARISON: ??NONE. ? FINDINGS: ??JOINT EFFUSION IS PRESENT. ??PREPATELLAR SOFT TISSUE SWELLING. ?? MILD MEDIAL COMPARTMENT JOINT SPACE NARROWING. ??NO EVIDENCE OF AN ACUTE ?? FRACTURE OR DISLOCATION. ? ELECTRONICALLY SIGNED BY: ?? DEEPTHI ALDRICH M.D. 10/09/2013 14:55 ?? DEEPTHI ALDRICH M.D. ? D: ??10/09/2013 12:03 P ??#[id number] ?? T: ??10/09/2013 ??1:14 P/MA ? CC: ?IGLESIA LITTLE M.D. ? Radiology image is available. Click on Image Link above. Procedure Note Tam Gilbert MD - 08/31/2018 TAMMY CERVANTES ORDERING MD: IGLESIA LITTLE MD ACCT: [id number] : 1975 PT TYPE: REG CLI SEX: F [facility] ST[facility] DATE REPORT # PROCEDURE CODE PROCEDURE 10/09/13 [id number] XR KNEE 3 VIEW RT EXTORDERID [id number] ACCESSION NUMBER [id number] CHART DOCUMENT IMPRESSION: JOINT EFFUSION AND PREPATELLAR SOFT TISSUE SWELLING WITHOUT EVIDENCE OFAN ACUTE FRACTURE OR DISLOCATION. IF THERE IS CLINICAL CONCERN FOR ACUTE INTERNAL DERANGEMENT, MRI IS RECOMMENDED. EARLY MEDIAL COMPARTMENT JOINT SPACE NARROWING. HISTORY: ANTERIOR AND MEDIAL KNEE PAIN. THREE VIEWS OF THE RIGHT KNEE COMPARISON: NONE. FINDINGS: JOINT EFFUSION IS PRESENT. PREPATELLAR SOFT TISSUE SWELLING. MILD MEDIAL COMPARTMENT JOINT SPACE NARROWING. NO EVIDENCE OF AN ACUTE FRACTURE OR DISLOCATION. ELECTRONICALLY SIGNED BY: DEEPTHI ALDRICH M.D. 10/09/2013 14:55 DEEPTHI ALDRICH M.D. P #[id number] P/CALEB CC: IGLESIA LITTLE M.D. Radiology image is available. Click on Image Link above. us Iglesia Little MD GENERAL IMAGING Final Result documented in this encounter Visit Diagnoses Not on filedocumented in this encounter Care Teams Production Control Planner Relationship Specialty Start Date End Date Rose Marie Norton SMUDGER PCP - General 07/06/15 10/31/16 Rose Marie Norton SMUDGER PCP - General 03/02/15 07/05/15 Tam Gilbert MD PCP - General 12/18/14 Iglesia Little MD [address] [place] [address] PCP - General 10/12/14 12/17/14 Iglesia Little MD [address] [facility] [place] [address] PCP - General 06/28/14 10/11/14 Iglesia Little MD [address] [place] [address] PCP - General 04/14/14 06/27/14 Iglesia Little MD [address] [place] [address] PCP - General 02/23/14 04/13/14 Iglesia Little MD [address] [id number] PCP - General 02/07/14 02/22/14 Iglesia Little MD [address] [id number] PCP - General 10/09/13 02/06/14 documented as of this encounter
--- OUTSIDE RECORDS SUMMARY | 2024-11-04 23:04 | XMS_ITS | Encounter Summary ---
Author Organization [facility] Address [address] [place] [address]. [place] [address] [place] [address] Care Team Providers Care Prescription Eyeglass Maker Name Role Phone Rose Marie Norton AIR QUALITY MANAGER Primary Care Provider + Rose Marie Norton AIR QUALITY MANAGER Primary Care Provider + , Generic Conversion Primary Care Provider Unavailable Iglesia Little MD Primary Care Provider + Iglesia Little MD Primary Care Provider + Iglesia Little MD Primary Care Provider + Iglesia Little MD Primary Care Provider + Encounter Details Date Type Department Care Team (Late st Contact Info) Description 02/23/[address] [facility] Diagnostic Imaging [address] [place], [place] [id number] Iglesia Little MD [address] [place] [address] [address] [place] [address] Social History Tobacco Use Types Packs/Day Years Used Date Smoking Tobacco: Never Assessed Comments Unknown Sex and Gender Information Value Date Recorded Sex Assigned at Not on file Legal Sex Female 6:50 PM CDT Gender Identity Not on file Sexual Orientation Not on file documented as of this encounter Plan of Treatment Not on file documented as of this encounter Visit Diagnoses Diagnosis Cough documented in this encounter Care Teams Prescription Eyeglass Maker Relationship Specialty Start Date End Date Rose Marie Norton AIR QUALITY MANAGER PCP - General 07/06/15 10/31/16 Rose Marie Norton, AIR QUALITY MANAGER PCP - General 03/02/15 07/05/15 Tam Gilbert MD PCP - General 12/18/14 Iglesia Little MD [address] [place] [address] PCP - General 10/12/14 12/17/14 Iglesia Little MD [address] [place] [address] PCP - General 06/28/14 10/11/14 Iglesia Little MD [address] [place] [address] PCP - General 04/14/14 06/27/14 Iglesia Little MD [address] [place] [address] PCP - General 02/23/14 04/13/14 documented as of this encounter
--- OUTSIDE RECORDS SUMMARY | 2024-11-04 23:04 | XMS_ITS | Encounter Summary ---
Author Organization [facility] Address [address] [place] [address]. [place] [address] [place] [address] Care Team Providers Care Combine Driver Name Role Phone Rose Marie Norton NP Primary Care Provider [phone] Encounter Details Date Type Department Care Team (Late st Contact Info) Description 11/14/2015 Abstract [facility] Family Medicine - [place] [address], [address] [place] [address] Rose Marie Norton NP [address] [place] [address] Social History Tobacco Use Types Packs/Day Years Used Date Smoking Tobacco: Never Assessed Comments Unknown Sex and Gender Information Value Date Recorded Sex Assigned at Not on file Legal Sex Female 6:50 PM CDT Gender Identity Not on file Sexual Orientation Not on file documented as of this encounter Last Filed Vital Signs Vital Sign Reading Time Taken Comments Blood Pressure 126/72 11/14/2015 2:35 PM RESOURCE PARAPROFESSIONAL Pulse - - Temperature - - Respiratory Rate - - Oxygen Saturation - - Inhaled Oxygen Concentration - - Weight 113.4 kg (250 lb) 11/14/2015 2:35 PM RESOURCE PARAPROFESSIONAL Height 160 cm (5' 3 ) 11/14/2015 2:35 PM RESOURCE PARAPROFESSIONAL Body Mass Index 44.29 11/14/2015 2:35 PM RESOURCE PARAPROFESSIONAL documented in this encounter Progress Notes * Rose Marie Norton NP - 11/14/2015 2:30 PM CST Reason For Visit Health Fashion Stylist Complaint visit pt did not start trokendi due to concerns, but she did fill it and has it at home. History of Present Illness HM, Adult Female: The patient is being seen for a health maintenance evaluation. General Health: The patient's health since the last visit is described as good. She has regular dental visits. She denies vision problems. Vision care includes having regular eye examinations. She denies hearing loss. Immunizations status: up to date. Lifestyle:. She consumes a diverse and healthy diet. She does not have any weight concerns. She does not exercise regularly. She does not use tobacco. She consumes alcohol. She reports occasional alcohol use. She denies drug use. Reproductive health: the patient is premenopausal . she reports normal menses. she is sexually active. Screening: Cervical cancer screening includes a pap smear performed last year. Breast cancer screening includes no previous mammogram. She hasn't been previously screened for colorectal cancer. metabolic screening reviewed and current. risk screening reviewed and current. Review of Systems Constitutional: negative. Head and Face: negative. Eyes: negative. ENT: negative. Cardiovascular: negative. Respiratory: negative. Gastrointestinal: negative. Genitourinary: negative. Musculoskeletal: negative. Psychiatric: negative. Hematologic and Lymphatic: negative. Neurological Negative. Endocrine Negative. Active Problems 1. Back pain (724.5) (M54.9) [...] of tinea cruris (V12.09) (Z86.19) Family History 1. No pertinent family history 2. No pertinent family history Social History ?? Current some day smoker (305.1) (F17.210) ?? Never Drank Alcohol ?? Never Used Drugs Current Meds 1. Triamterene-HCTZ 37.5-25 MG Oral Capsule; TAKE 1 CAPSULE DAILY; Therapy: 07Ofl7558 to (Evaluate:05Dec2015) Requested for: 37Wov6804; Last Rx:[id number] Ordered Allergies 1. No Known Drug Allergies Vitals Signs [Data Includes: Current Encounter] Systolic: 126 Diastolic: 72 Height: 5 ft 3 in Weight: 250 lb BMI Calculated: 44.29 BSA Calculated: 2.13 Physical Exam Constitutional General appearance: No acute distress, well appearing and well nourished. patient was observed to be. Eyes Conjunctiva and lids: No swelling, erythema or discharge. Pupils and irises: Equal, round and reactive to light. Ears, Nose, Mouth, and Throat External inspection [...] rhythm, normal S1 and S2, without murmurs. Examination of extremities for edema and/or varicosities: Normal. Abdomen Abdomen: Non-tender, no masses. Liver and spleen: No hepatomegaly or splenomegaly. Lymphatic Palpation of lymph nodes in neck: No lymphadenopathy. Musculoskeletal Gait and station: Normal. Digits and nails: Normal without clubbing or cyanosis. Inspection/palpation of joints, bones, and muscles: Normal. Skin Skin and subcutaneous tissue: Normal without rashes or lesions. Neurologic Cranial nerves: Cranial nerves 2-12 intact. Reflexes: 2+ and symmetric. Sensation: No sensory loss. Psychiatric Orientation to person, place, and time: Normal. Mood and affect: Normal. Assessment 1. Encounter for preventive health examination (V70.0) (Z00.00) Plan Back pain 1. Ibuprofen 800 MG Oral Tablet; TAKE 1 TABLET EVERY 8 HOURS WITH FOOD Health Maintenance 2. Keep a diary of when and what you eat.; Status:Complete; Done: 14Nov2015 03:10PM 3. We encourage all of our patients to exercise regularly. 30 minutes of exercise or physical activity five or more days a week is recommended for children and adults.; Status:Complete; Done: 14Nov2015 03:10PM 4. We want you to follow the Therapeutic Lifestyle Changes (TLC) diet.; Status:Complete; Done: 14Nov2015:10PM 5. Call if: You find a new or different kind of lump in your breast.; Status:Complete; Done: 14Nov2015:10PM 6. Call if: You have any warning signs of skin cancer.; Status:Complete; Done: 14Nov2015 03:10PM Hypertension 7. Triamterene-HCTZ 37.5-25 MG Oral Capsule; TAKE 1 CAPSULE DAILY Discussion/Summary Impression: health maintenance visit, healthy adult female. Currently, she eats a poor diet and hasan inadequate exercise regimen. Cervical cancer screening: cervical cancer screening is current. Breast cancer screening: breast cancer screening is not indicated. Colorectal cancer screening: colorectal cancer screening is not indicated. The immunizations are up to date. Advice and education were given regarding nutrition, aerobic exercise, weight loss and cardiovascular risk reduction. Patient discussion: discussed with the patient. Signatures Electronically signed by : Rose Marie Norton NP; Nov 14 2015 3:11PM RESOURCE PARAPROFESSIONAL (Author) documented in this encounter Plan of Treatment Not on file documented as of this encounter Visit Diagnoses Not on filedocumented in this encounter Care Teams Combine Driver Relationship Specialty Start Date End Date Rose Marie Norton NP PCP - General 07/06/15 10/31/16 documented as of this encounter
--- OUTSIDE RECORDS SUMMARY | 2024-11-04 23:04 | XMS_ITS | Encounter Summary ---
Author Organization [facility] Address [address] [place] [address]. [place] [address] [place] [address] Care Team Providers Care Experimental Assembler Name Role Phone Rose Marie Norton CARBON PLANT GRINDER Primary Care Provider + Rose Marie Norton NP Primary Care Provider + , Generic Conversion MD Primary Care Provider Unavailable Iglesia Little MD Primary Care Provider + Iglesia Little MD Primary Care Provider + Encounter Details Date Type Department Care Team (Late st Contact Info) Description 07/16/2014 Abstract [facility] Medical [facility] Family Medicine - [place] [id number] [facility], [address] [place] [address] Rose Marie Norton, CARBON PLANT GRINDER [address] [place] [address] Social History Tobacco Use Types Packs/Day Years Used Date Smoking Tobacco: Never Assessed Comments Unknown Sex and Gender Information Value Date Recorded Sex Assigned at Not on file Legal Sex Female 6:50 PM CDT Gender Identity Not on file Sexual Orientation Not on file documented as of this encounter Last Filed Vital Signs Vital Sign Reading Time Taken Comments Blood Pressure 118/78 07/16/2014 10:58 AM CDT Pulse 76 07/16/2014 10:58 AM CDT Temperature - - Respiratory Rate - - Oxygen Saturation - - Inhaled Oxygen Concentration - - Weight 114.8 kg (253 lb) 07/16/2014 10:58 AM CDT Height 160 cm (5' 3 ) 07/16/2014 10:58 AM CDT Body Mass Index 44.82 07/16/2014 10:58 AM CDT documented in this encounter Progress Notes * Rose Marie Norton, CARBON PLANT GRINDER - 07/16/2014 10:45 AM CDT Reason For Visit Reason For Visit: Acute Visit Chief Complaint C.O ITCHING History of Present Illness Residents at work with scabies. She started itching last night and it is becoming worse. Review of Systems Constitutional: Normal. ENT: normal. Cardiovascular: Normal. Respiratory: Normal. Gastrointestinal: Normal. Integumentary: itching. Active Problems 1. Acute bronchitis (466.0) (J20.9) 2. Acute sinusitis (461.9) (J01.90) 3. Back pain (724.5) (M54.9) 4. Cough (786.2) (R05) 5. Esophageal reflux (530.81) (K21.9) 6. Foot pain (729.5) (M79.673) 7. Hypertension (401.9) (I10) 8. Knee pain, right (719.46) (M25.561) Past Medical [...] ?? Never Used Drugs Current Meds 1. Fluticasone Propionate 50 MCG/ACT Nasal Suspension; USE 2 SPRAYS IN EACH NOSTRIL ONCE DAILY; Therapy: 21Nov2013 to (Last Rx:21Nov2013) Requested for: 21Nov2013 Ordered Rx By: Iglesia Little; Dispense: 0 Days ; #:2 X 16 GM Bottle; Refill: 3; For: PMH: Cough, PMH: History of onychomycosis; YASSINE = N; Verified Transmission to [id number]; Last Updated By: Melissa Lema; 11/21/2013 10:14:11 AM 2. Lisinopril-Hydrochlorothiazide 10-12.5 MG Oral Tablet; TAKE 1 TABLET DAILY; Therapy: (Recorded:09Bhj0175) to Recorded Dispense: 90 Days ; #:90 Tablet; Refill: 0; For: Hypertension; YASSINE = N; Record; Last Updated By: Lori Beltran; 06/05/2012 11:43:03 AM 3. Naproxen 500 MG Oral Tablet; TAKE 1 TABLET EVERY 12 HOURS NEEDED; Therapy: 40Acl6747 to (Evaluate:58Irx4011); Last Rx:[id number] Ordered Rx By: Iglesia Little; Dispense: 15 Days ; #:30 Tablet; Refill: 0; For: Knee pain, right; YASSINE = N; Print Rx; Last Updated By: Rose Marie Norton; 12/10/2013 4:01:33 PM 4. Omeprazole 40 MG Oral Capsule Delayed Release; TK 1 C PO D; Therapy: 22Nov2012 to (Evaluate:17Nov2013); Last Rx:22Nov2012 Ordered Rx By: Iglesia Little; Dispense: 90 Days ; #:1 X 90 EA Bottle; Refill: 3; For: Esophageal reflux; YASSINE= N; Print Rx; Last Updated By: Rose Marie Norton; 12/10/2013 4:01:33 PM 5. ProAir HFA 108 (90 Base) MCG/ACT Inhalation Aerosol Solution; Take 2 puffs one-minute apart every 4 or more hours as needed for wheeze; Therapy: 18Feb2014 to (Last Rx:18Feb2014) Requested for: [id number] Ordered Rx By: Rose Marie Norton; Dispense: 0 Days ; #:1 X 8.5 GM Inhaler; Refill: 0; For: Acute bronchitis; YASSINE = N; Verified Transmission to [id number]; Last Updated By: Vel Kay; 02/18/2014 11:29:14 AM Allergies 1. No Known Drug Allergies Recorded By: Lori Beltran; 06/06/2012 10:29:10 AM Vitals Vital Signs [Data Includes: Current Encounter] Recorded by : Melissa Lema at 10Odc7186 10:58AM Heart Rate 76 Systolic 118 Diastolic 78 O2 Saturation 98 Height 5 ft 3 in Weight 253 lb BMI Calculated 44.82 BSA Calculated 2.14 Physical Exam Constitutional General appearance: No acute distress, well appearing and well nourished. Pulmonary Respiratory effort: No increased work of breathing or signs of respiratory distress. Auscultation of lungs: Clear to auscultation. Cardiovascular Palpation of heart: Normal PMI, no thrills. Auscultation of heart: Normal rate and rhythm, normal S1 and S2, without murmurs. Skin Skin and subcutaneous tissue: Normal without rashes or lesions. Redness secondary to scratching in web of fingers. Psychiatric Mood and affect: Normal. Assessment 1. Scabies (133.0) (B86) Plan Scabies 1. Do not share linens. Status: Complete Done: 16Jul2014 Ordered; For: Scabies; Ordered By: Rose Marie Norton 2. The following may help your itching and prevent it from returning. Status: Complete Done: 98Kka1872 Ordered; For: Scabies; Ordered By: Rose Marie Norton Elimite cream prescribed for patient. Signatures Electronically signed by : Rose Marie Norton NP; Jul 16 2014 1:55PM CERTIFIED INCOME TAX PREPARER (Author) documented in this encounter Plan of Treatment Not on file documented as of this encounter Visit Diagnoses Not on filedocumented in this encounter Care Teams Experimental Assembler Relationship Specialty Start Date End Date Rose Marie Norton NP PCP - General 07/06/15 10/31/16 Rose Marie Norton NP PCP - General 03/02/15 07/05/15 Tam Gilbert MD PCP - General 12/18/14 Iglesia Little MD [address] [place] [address] PCP - General 10/12/14 12/17/14 Iglesia Little MD [address] [address] PCP - General 06/28/14 10/11/14 documented as of this encounter
--- OUTSIDE RECORDS SUMMARY | 2024-11-04 23:04 | XMS_ITS | Encounter Summary ---
Author Organization [facility] Address [address] [place] [address]. [place], [place] [address] [place] [address] Care Team Providers Care Automotive Assembler Name Role Phone Rose Marie Norton HADOOP SOFTWARE ENGINEER Primary Care Provider + Rose Marie Norton HADOOP SOFTWARE ENGINEER Primary Care Provider + , Generic Conversion [...] Care Team (Late st Contact Info) Description 11/20/2013 Abstract [facility] [place] [address] [facility], [address] [place] [address] Iglesia Little MD [address] [place] [address] [address] [place] [address] Social History Tobacco Use Types Packs/Day Years Used Date Smoking Tobacco: Never Assessed Comments Unknown Sex and Gender Information Value Date Recorded Sex Assigned at Not on file Legal Sex Female 6:50 PM CDT Gender Identity Not on file Sexual Orientation Not on file documented as of this encounter Last Filed Vital Signs Vital Sign Reading Time Taken Comments Blood Pressure 130/88 11/20/2013 2:57 PM HOUSEHOLD APPLIANCES SALESPERSON Pulse 83 11/20/2013 2:57 PM HOUSEHOLD APPLIANCES SALESPERSON Temperature - - Respiratory Rate - - Oxygen Saturation - - Inhaled Oxygen Concentration - - Weight 113.4 kg (250 lb) 11/20/2013 2:57 PM HOUSEHOLD APPLIANCES SALESPERSON Height 160 cm (5' 3 ) 11/20/2013 2:57 PM HOUSEHOLD APPLIANCES SALESPERSON Body Mass Index 44.29 11/20/2013 2:57 PM HOUSEHOLD APPLIANCES SALESPERSON documented in this encounter Progress Notes * Iglesia Little MD - 11/20/2013 2:45 PM CST Reason For Visit Reason For Visit: Acute Visit Chief Complaint 1. Cough Chief Complaint Free Text: pt here for sharp pain in neck and in right ear. History of Present Illness HPI Free Text: 38 yo AAF c/o sever cough for 2 weeks to where she strained the right sided neck muscles. no neck hurts when she moves it in certain ways, cough remains, about 8/10 and aggrivated by cold temp and releived with rest non smoker no drug habit Review of Systems Focused-Female: Constitutional: no fever, no chills and no headache. ENT: no earache and no hearing loss. Cardiovascular: the heart rate was not slow and the heart rate was not fast. Respiratory: no shortness of breath. Gastrointestinal: no abdominal pain and no vomiting. Musculoskeletal: no joint pain. Active Problems 1. Esophageal Reflux 530.81 2. Foot Pain (Soft Tissue) 729.5 3. Hypertension 401.9 4. Joint Pain In The Right Knee 719.46 5. Onychomycosis 110.1 Past Medical History Patient indicats no significant past medical history. Surgical History Patient indicates no past surgical history. Family History Patient indicates no significant family history of disease. Social History ?? Current Some Day Smoker 305.1 ?? Never Drank Alcohol ?? Never Used Drugs Current Meds 1. Ciclodan 8 % External Solution; APPLY AND GENTLY MASSAGE INTO AFFECTED AREA(S) TWICE DAILY; Therapy: 65Mvu1326 to (Last Rx:[id number]) Requested for: [id number] Ordered; For: Onychomycosis (110.1); Rx By: Iglesia Little; Dispense: 0 Days ; #:1 X 6.6 ML Bottle; Refill: 3; Verified Transmission to [facility][id number]; Last Updated By: Lori Beltran 2. Lisinopril-Hydrochlorothiazide 10-12.5 MG Oral Tablet; TAKE 1 TABLET DAILY; Therapy: (Recorded:13Xqa9921) to Recorded; For: Hypertension (401.9); Dispense: 90 Days ; #:90 Tablet; Refill: 0; Record; Last Updated By: Lori Beltran 3. Naproxen 500 MG Oral Tablet; TAKE 1 TABLET EVERY 12 HOURS NEEDED; Therapy: 81Nbd5205 to (Evaluate:23Oct2013); Last Rx:[id number] Ordered; For: Joint Pain In The Right Knee (719.46); Rx By: Iglesia Little; Dispense: 15 Days ; #:30 Tablet; Refill: 0; Print Rx 4. Omeprazole 40 MG Oral Capsule Delayed Release; TK 1 C PO D; Therapy: 22Nov2012 to (Evaluate:17Nov2013); Last Rx:22Nov2012 Ordered; For: Esophageal Reflux (530.81); Rx By: Iglesia Little; Dispense: 90 Days ; #:1 X 90 EA Bottle; Refill: 3; Print Rx Allergies 1. No Known Drug Allergies No Known Drug Allergies Vitals Vital Signs [Data Includes: Current Encounter] 20Nov2013 02:57PM Heart Rate 83 Respiration 16 Systolic 130 Diastolic 88 BMI Calculated 44.3 BSA Calculated 2.13 Height 5 ft 3 in Weight 250 lb Physical Exam Constitutional General appearance: No acute distress, well appearing and well nourished. Eyes Conjunctiva and lids: No swelling, erythema or discharge. Pupils and irises: Equal, round and reactive to light. Ears, Nose, Mouth, and Throat External inspection of ears and nose: Normal. Oropharynx: Abnormal. Oral mucosa had an exudate. Pulmonary Respiratory effort: No increased work of breathing or signs of respiratory distress. Auscultation of lungs: Clear to auscultation. Cardiovascular Auscultation of heart: Normal rate and rhythm, normal S1 and S2, without murmurs. Abdomen Abdomen: Non-tender, no masses. Assessment 1. Cough 786.2 Plan 1. Azithromycin 250 MG Oral Tablet; TAKE 2 TABLETS ON DAY 1 THEN TAKE 1 TABLET A DAY FOR 4 DAYS; Therapy: 20Nov2013 to (Last Rx:20Nov2013) Ordered; For: Cough (786.2); Rx By: Iglesia Little; Dispense: 0 Days ; #:6 Tablet; Refill: 0; [id number] 2. Benzonatate 200 MG Oral Capsule; TAKE 1 CAPSULE 2-3 TIMES DAILY; Therapy: to (Evaluate:30Nov2013); Last Rx:20Nov2013 Ordered; For: Cough (786.2); Rx By: Iglesia Little; Dispense: 10 Days ; #:30 Capsule; Refill: 0; [id number] 3. Nasonex 50 MCG/ACT Nasal Suspension; Inhale 2 sprays in each nostril once daily; Therapy: 20Nov2013 to (Last Rx:20Nov2013) Ordered; For: Cough (786.2); Rx By: Iglesia Little; Dispense: 0 Days ; #:1 GM; Refill: 5; [id number] Signatures Electronically signed by : Iglesia Little M.D.; Nov 20 2013 3:11PM (Author) EHOLD APPLIANCES SALESPERSON documented in this encounter Plan of Treatment Not on file documented as of this encounter Visit Diagnoses Not on filedocumented in this encounter Care Teams Automotive Assembler Relationship Specialty Start Date End Date Rose Marie Norton NP PCP - General 07/06/15 10/31/16 Rose Marie Norton NP PCP - General 03/02/15 07/05/15 Tam Gilbert MD PCP - General 12/18/14 Iglesia Little MD [address] [place] [address] PCP - General 10/12/14 12/17/14 Iglesia Little MD [address] [place] [address] PCP - General 06/28/14 10/11/14 Iglesia Little MD [address] [place] [address] PCP - General 04/14/14 06/27/14 Iglesia Little MD [address] [place] [address] PCP - General 02/23/14 04/13/14 Iglesia Little MD [address] [place], [place] [address] [phone] PCP - General 02/07/14 02/22/14 Iglesia Little MD [address] [place], [place] [address] [phone] PCP - General 10/09/13 02/06/14 documented as of this encounter
--- OUTSIDE RECORDS SUMMARY | 2024-11-04 23:04 | XMS_ITS | Encounter Summary ---
Author Organization [facility] Address [address] [place] [address]. [place], [place] [address] [place] [address] Care Team Providers Care Food And Beverage Order Clerk Name Role Phone Rose Marie Norton TUBING DRIER Primary Care Provider + Rose Marie Norton TUBING DRIER Primary Care Provider + Md Generic [place] TREVINO Primary Care Provider Unavailable Iglesia Little MD Primary Care Provider + Iglesia Little MD Primary Care Provider + Iglesia Little MD Primary Care Provider + Iglesia Little MD Primary Care Provider + Iglesia Little MD Primary Care Provider + Iglesia Little MD Primary Care Provider + Tam Trevino MD Primary Care Provider Unavailable Tam Trevino MD Primary Care Provider Unavailable Md Generic [place] TREVINO Primary Care Provider Unavailable Md Generic [place] TREVINO Primary Care Provider Unavailable Iglesia Little MD Primary Care Provider + Iglesai Little MD Primary Care Provider + Iglesia Little MD Primary Care Provider + Iglesia Little MD Primary Care Provider + Encounter Details Date Type Department Care Team (Latest Contact Info) Description 11/15/2012 Abstract [facility] Social History Tobacco Use Types [...] on filedocumented in this encounter Care Teams Food And Beverage Order Clerk Relationship Specialty Start Date End Date Rose Marie Norton, TUBING DRIER PCP - General 07/06/15 10/31/16 Rose Marie Norton, TUBING DRIER PCP - General 03/02/15 07/05/15 Tam Trevino MD PCP - General 12/18/14 Iglesia Little MD [address] [place] [address] PCP - General 10/12/14 12/17/14 Iglesia Little MD [address] [place] [address] PCP - General 06/28/14 10/11/14 Iglesia Little MD [address] [place] [address] PCP - General 04/14/14 06/27/14 Iglesia Little MD [address] [place] [address] PCP - General 02/23/14 04/13/14 Iglesia Little MD [address] [place] [address] PCP - General 02/07/14 02/22/14 Iglesia Little MD [address] [place] [address] PCP - General 10/09/13 02/06/14 , Generic Conversion, PCP - General 10/06/13 , Generic Conversion, PCP - General 09/17/1310/05 , Generic Conversion, PCP - General 07/06/1309/16 , Generic Conversion, PCP - General 06/20/13 Iglesia Little MD [address] [place] [address] PCP - General 04/04/13 06/19/13 Iglesia Little MD [address] [place] [address] PCP - General 01/31/13 04/03/13 Iglesia Little MD [address] [place] [address] PCP - General 01/18/13 01/30/13 Iglesia Little MD [address] [place] [address] PCP - General 12/17/11 01/17/13 documented as of this encounter
--- OUTSIDE RECORDS SUMMARY | 2024-11-04 23:04 | XMS_ITS | Encounter Summary ---
Author Organization [facility] Address [address] [place] [address]. [place], [place] [address] [place] [address] Care Team Providers Care Gore Stitcher Name Role Phone Rose Marie Norton LIQUID FERTILIZER SERVICER Primary Care Provider + Rose Marie Norton LIQUID FERTILIZER SERVICER Primary Care Provider + Md Generic Madison TREVINO Primary Care Provider Unavailable Iglesia Little MD Primary Care Provider + Iglesia Little MD Primary Care Provider + Iglesia Little MD Primary Care Provider + Iglesia Little MD Primary Care Provider + Iglesia Little MD Primary Care Provider + Iglesia Little MD Primary Care Provider + Tam Trevnio MD Primary Care Provider Unavailable Md Generic [...] Care Team (Late st Contact Info) Description 06/06/2012 Abstract [facility] Family Medicine - [place] [address], [address] [place] [id number] Iglesia Little MD [address] [facility] [address] [place] [address] Social History Tobacco Use Types Packs/Day Years Used Date Smoking Tobacco: Never Assessed Comments Unknown Sex and Gender Information Value Date Recorded Sex Assigned at Not on file Legal Sex Female 6:50 PM CDT Gender Identity Not on file Sexual Orientation Not on file documented as of this encounter Last Filed Vital Signs Vital Sign Reading Time Taken Comments Blood Pressure 120/80 06/06/2012 10:28 AM CDT Pulse 75 06/06/2012 10:28 AM CDT Temperature - - Respiratory Rate - - Oxygen Saturation - - Inhaled Oxygen Concentration - - Weight 110.7 kg (244 lb) 06/06/2012 10:28 AM CDT Height 160 cm (5' 3 ) 06/06/2012 10:28 AM CDT Body Mass Index 43.22 06/06/2012 10:28 AM CDT documented in this encounter Progress Notes * Iglesia Little MD - 06/06/2012 10:30 AM CDT Reason For Visit Reason For Visit KCIN: Reason for Visit: Chronic Recheck Visit Chief Complaint 1. Physician Consult work physical History of Present Illness HM, Adult Female: The patient is being seen for a health maintenance evaluation. Social History: Household members include 3 daughter(s), 2 son(s) and adult children. Work status: not currently employed. The patient has no concerns about alcohol abuse. She has never used illicit drugs. General Health: Screening: Hypertension (Follow-Up): The patient presents for follow-up of primary hypertension. The patient states she has been doing well with her blood pressure control since the last visit. She has no comorbid illnesses. She has no significant interval events. Symptoms: Review of Systems Constitutional: no fever. Head and Face: no facial pain. Eyes: no eye pain. ENT: no earache. Active Problems 1. Hypertension 401.9 Social History ?? Current Some Day Smoker 305.1 Current Meds 1. Lisinopril-Hydrochlorothiazide 10-12.5 MG Oral Tablet; TAKE 1 TABLET DAILY; Therapy: (Recorded:[id number]) to Allergies 1. No Known Drug Allergies Vitals Signs [Data Includes: Current Encounter] Heart Rate: 75, Systolic: 120, Diastolic: 80, BMI Calculated: 43.23, BSA Calculated: 2.1, Height: 5ft 3 in, Weight: 244 lb , O2 Saturation: 98 Physical Exam Constitutional General appearance: No acute distress, well appearing and well nourished. Head and Face Head and face: Normal. Eyes Conjunctiva and lids: No swelling, erythema or discharge. Ears, Nose, Mouth, and Throat External inspection of ears and nose: Normal. Neck Neck: Supple, symmetric, trachea midline, no masses. Pulmonary Respiratory effort: No increased work of breathing or signs of respiratory distress. Percussion of chest: Normal. Cardiovascular Palpation of heart: Normal PMI, no thrills. Auscultation of heart: Normal rate and rhythm, normal S1 and S2, no murmurs. Assessment 1. Hypertension 401.9 Discussion/Summary Impression: health maintenance visit. Currently, she eats a healthy diet and eats an adequate diet. Signatures Electronically signed by : Iglesia Little M.D.; Jun 06 2012 11:09AM (Author) ONAL INTERMODAL TRUCK DRIVER documented in this encounter Miscellaneous Notes * Letter - Iglesia Little MD - 06/06/2012 10:30 AM CDT To whom it may concern: Maria Del Carmen Ray was seen on 06/06/12 for a physical. Exam was normal. Iglesia Little MD Electronically signed by:Lori Beltran Jun 06 2012 10:59AM REGIONAL INTERMODAL TRUCK DRIVER Author ONAL INTERMODAL TRUCK DRIVER documented in this encounter Plan of Treatment Not on file documented as of this encounter Visit Diagnoses Not on filedocumented in this encounter Care Teams Gore Stitcher Relationship Specialty Start Date End Date Rose Marie Norton NP PCP - General 07/06/15 10/31/16 Rose Marie Norton NP PCP - General 03/02/15 07/05/15 , Generic Conversion, PCP - General 12/18/14 Iglesia Little MD [address] [place] [address] PCP - General 10/12/14 12/17/14 Iglesia Little MD [address] [place] [address] PCP - General 06/28/14 10/11/14 Iglesia Little MD [address] [place] [address] PCP - General 04/14/14 06/27/14 Iglesia Little MD [address] [place] [address] PCP - General 02/23/14 04/13/14 Iglesia Little MD [address] [place] [address] PCP - General 02/07/14 02/22/14 Iglesia Little MD [address] [place] [address] PCP - General 10/09/13 02/06/14 , Generic Conversion, PCP - General 10/06/13 , Generic Conversion, PCP - General 09/17/1310/05 , Generic Conversion, PCP - General 07/06/1309/16 , Generic Conversion, PCP - General 06/20/13 Iglesia Little MD [address] [place] [address] PCP - General 04/04/13 06/19/13 Iglesia Little MD [address] [place] [address] PCP - General 01/31/13 04/03/13 Iglesia Little MD [address] [place], [place] [address] [phone] PCP - General 01/18/13 01/30/13 Iglesia Little MD [address] [place], [place] [address] [phone] PCP - General 12/17/11 01/17/13 documented as of this encounter
--- OUTSIDE RECORDS SUMMARY | 2024-11-04 23:04 | XMS_ITS | Encounter Summary ---
Author Organization [facility] Address [address] [place] [address]. [place], [place] [id number] [place] [address] Care Team Providers Care Shipfitter Name Role Phone Rose Marie Norton TERADATA SOLUTION ARCHITECT Primary Care Provider + Rose Marie Norton TERADATA SOLUTION ARCHITECT Primary Care Provider + Tam Gilbert MD Primary Care Provider Unavailable Iglesia Little MD Primary Care Provider + Encounter Details Date Type Department Care Team (Late st Contact Info) Description 10/12/2014 Abstract [facility] [place] [address] Jeff Orozco MD [address] [facility] [address] [address] Social History Tobacco Use Types Packs/Day Years Used Date Smoking Tobacco: Never Assessed Comments Unknown Sex and Gender Information Value Date Recorded Sex Assigned at Not on file Legal Sex Female 6:50 PM CDT Gender Identity Not on file Sexual Orientation Not on file documented as of this encounter Plan of Treatment Not on file documented as of this encounter Visit Diagnoses Diagnosis Asthma ([facility]) Unspecified asthma documented in this encounter Care Teams Shipfitter Relationship Specialty Start Date End Date Rose Marie Norton TERADATA SOLUTION ARCHITECT PCP - General 07/06/15 10/31/16 Rose Marie Norton TERADATA SOLUTION ARCHITECT PCP - General 03/02/15 07/05/15 , Tam Wallace, PCP - General 12/18/14 Iglesia Little MD [address] [address] PCP - General 10/12/14 12/17/14 documented as of this encounter
--- OUTSIDE RECORDS SUMMARY | 2024-11-04 23:04 | XMS_ITS | Encounter Summary ---
Author Organization [facility] Address [address] [place] [address]. [place], [place] [address] [place] [address] Care Team Providers Care Form Building Supervisor Name Role Phone Rose Marie Norton HEALTH PRACTICE MANAGER Primary Care Provider + Rose Marie Norton HEALTH PRACTICE MANAGER Primary Care Provider + , Generic Conversion Primary Care Provider Unavailable Iglesia Little MD Primary Care Provider + Iglesia Little MD Primary Care Provider + Iglesia Little MD Primary Care Provider + Iglesia Little MD Primary Care Provider + Iglesia Little MD Primary Care Provider + Encounter Details Date Type Department Care Team (Latest Contact Info) Description 02/22/2014 [facility] Social History Tobacco Use Types Packs/Day Years Used Date Smoking Tobacco: Never Assessed Comments Unknown Sex and Gender Information Value Date Recorded Sex Assigned at Not on file Legal Sex Female 6:50 PM CDT Gender Identity Not on file Sexual Orientation Not on file documented as of this encounter Progress Notes * Iglesia Little MD - 02/22/2014 11:38 AM CDT Message Recorded as Task Date: 02/22/2014 09:03 AM, Created By: Lori Beltran Task Name: Medical Complaint Callback Assigned To: Lori Beltran Regarding Patient: Ray, Maria Del Carmen C, Status: Active Comment: Lori Beltran 22 Feb 2014 9:03 AM TASK CREATED Caller: Self; Medical Complaint; ; (Mobile Phone) Maria Del Carmen Ray called and asked if you could order a chest x-ray for her. She said she still hasthe cough and now her chest is burning. She is worried it might be pneumonia. Rose Marie Norton 22 Feb 2014 9:29 AM TASK EDITED It will not likely change treatment but that is fine. Please order a stat cxr with dx of cough. Thanks Lori Beltran 22 Feb 2014 9:57 AM TASK EDITED Lori Beltran 22 Feb 2014 11:38 AM TASK EDITED Date: 27 Feb 2014 3:31 PM SAMPLE PULLER, Recorded By: Melissa Lema Phone: [phone] (Mobile Phone) Reason: Results Inquiry PT CALLED, PERMISSION TO LEAVE VOICEMAIL ON MACHINE IF NEEDED. LEFT MESSAGE, XRAY NEG IF SHE HAS ANYMORE CONCERNS OR QUESTIONS TO CALL OUR OFFICE. Current Meds 1. Azithromycin 250 MG Oral Tablet; Take 2 tablets today, then 1 tablet daily for 4 days; Therapy: 18Feb2014 to (Last Rx:18Feb2014) Requested for: [id number] Ordered 2. Fluticasone Propionate 50 MCG/ACT Nasal Suspension; USE 2 SPRAYS IN EACH NOSTRIL ONCE DAILY; Therapy: 21Nov2013 to (Last Rx:21Nov2013) Requested for: 21Nov2013 Ordered 3. Lisinopril-Hydrochlorothiazide 10-12.5 MG Oral Tablet; TAKE 1 TABLET DAILY; Therapy: (Recorded:[id number]) to Recorded 4. Naproxen 500 MG Oral Tablet; TAKE 1 TABLET EVERY 12 HOURS NEEDED; Therapy: [id number] to (Evaluate:[id number]); Last Rx:[id number] Ordered 5. Omeprazole 40 MG Oral Capsule Delayed Release; TK 1 C PO D; Therapy: 22Nov2012 to (Evaluate:17Nov2013); Last Rx:22Nov2012 Ordered 6. ProAir HFA 108 (90 Base) MCG/ACT Inhalation Aerosol Solution; Take 2 puffs one-minute apart every 4 or more hours as needed for wheeze; Therapy: 18Feb2014 to (Last Rx:[id number]) Requested for: [id number] Ordered Signatures Electronically signed by : Lori Beltran, ; Feb 22 2014 11:39AM SAMPLE PULLER (Author) Electronically signed by : Iglesia Little M.D.; Apr 25 2014 8:09AM SAMPLE PULLER (Author) documented in this encounter Plan of Treatment Not on file documented as of this encounter Visit Diagnoses Not on filedocumented in this encounter Care Teams Form Building Supervisor Relationship Specialty Start Date End Date Rose Marie Norton, HEALTH PRACTICE MANAGER PCP - General 07/06/15 10/31/16 Rose Marie Norton, HEALTH PRACTICE MANAGER PCP - General 03/02/15 07/05/15 Tam Gilbert MD PCP - General 12/18/14 Iglesia Little MD [address] [place] [address] PCP - General 10/12/14 12/17/14 Iglesia Little MD [address] [place] [address] PCP - General 06/28/14 10/11/14 Iglesia Little MD [address] [place] [address] PCP - General 04/14/14 06/27/14 Iglesia Little MD [address] [place] [address] PCP - General 02/23/14 04/13/14 Iglesia Little MD [address] [address] PCP - General 02/07/14 02/22/14 documented as of this encounter
--- OUTSIDE RECORDS SUMMARY | 2024-11-04 23:04 | XMS_ITS | Encounter Summary ---
Author Organization [facility] Address [address] [place] [address]. [place], [place] [address] [place] [address] Care Team Providers Care Signwriter Name Role Phone Rose Marie Norton BUGGY RUNNER Primary Care Provider [phone] Encounter Details Date Type Department Care Team (Late st Contact Info) Description 07/06/2015 Abstract [facility] [place] [address] Rose Marie Norton NP [address] [place] [address] Social History Tobacco Use Types Packs/Day Years Used Date Smoking Tobacco: Never Assessed Comments Unknown Sex and Gender Information Value Date Recorded Sex Assigned at Not on file Legal Sex Female 6:50 PM CDT Gender Identity Not on file Sexual Orientation Not on file documented as of this encounter Plan of Treatment Not on file documented as of this encounter Visit Diagnoses Diagnosis Essential hypertension Unspecified essential hypertension documented in this encounter Care Teams Signwriter Relationship Specialty Start Date End Date Rose Marie Norton NP PCP - General 07/06/15 10/31/16 documented as of this encounter
--- OUTSIDE RECORDS SUMMARY | 2024-11-04 23:04 | XMS_ITS | Encounter Summary ---
Author Organization [facility] Address [address] [place] [address]. [place] [address] [place] [address] Care Team Providers Care Ship Liner Name Role Phone Rose Marie Norton TRUST ADMINISTRATIVE ASSISTANT Primary Care Provider + Rose Marie Norton TRUST ADMINISTRATIVE ASSISTANT Primary Care Provider + Md Generic Madison TREVINO Primary Care Provider Unavailable Iglesia Little MD Primary Care Provider + Iglesia Little MD Primary Care Provider + Iglesia Little MD Primary Care Provider + Iglesia Little MD Primary Care Provider + Iglesia Little MD Primary Care Provider + Iglesia Little MD Primary Care Provider + Md Generic Madison TREVINO Primary Care Provider Unavailable Md Generic Madison TREVINO Primary Care Provider Unavailable Md Generic Madison TREVINO Primary Care Provider Unavailable Md Generic Madison TREVINO Primary Care Provider Unavailable Iglesia Little MD Primary Care Provider + Iglesia Little MD Primary Care Provider + Encounter Details Date Type Department Care Team (Late st Contact Info) Description 01/31/[address] [facility] [address] [facility] [place], [place] [id number] Chloe De La Cruz, TIRE BLADDER MAKER [address] [facility] [address] [place] [address] Social History Tobacco Use Types [...] as of this encounter Visit Diagnoses Diagnosis Dysfunction of eustachian tube Dysfunction of Eustachian tube documented in this encounter Care Teams Ship Liner Relationship Specialty Start Date End Date Rose Marie Norton TRUST ADMINISTRATIVE ASSISTANT PCP - General 07/06/15 10/31/16 Rose Marie Norton TRUST ADMINISTRATIVE ASSISTANT PCP - General 03/02/15 07/05/15 Tam Trevino MD PCP - General 12/18/14 Iglesia Little MD [address] [place] [address] PCP - General 10/12/14 12/17/14 Iglesia Little MD [address] [facility] [place] [address] PCP - General 06/28/14 10/11/14 Iglesia Little MD [address] [place] [address] PCP - General 04/14/14 06/27/14 Iglesia Little MD [address] [place] [address] PCP - General 02/23/14 04/13/14 Iglesia Little MD [address] [place] [address] PCP - General 02/07/14 02/22/14 Iglesia Little MD [address] [place] [address] PCP - General 10/09/13 02/06/14 Md, Generic Conversion, MD PCP - General 10/06/13 , Generic Conversion, MD PCP - General 09/17/1310/05 , Generic Conversion, PCP - General 07/06/1309/16 , Generic Conversion, MD PCP - General 06/20/13 Iglesia Little MD [address] [place] [address] PCP - General 04/04/13 06/19/13 Iglesia Little MD [address] [place] [address] PCP - General 01/31/13 04/03/13 documented as of this encounter
--- OUTSIDE RECORDS SUMMARY | 2024-11-04 23:04 | XMS_ITS | Encounter Summary ---
Author Organization [facility] Address [address] [place] [address]. [place], [place] [address] [place] [address] Care Team Providers Care Supervisor Porcelain Department Name Role Phone Rose Marie Norton SALVATIONIST Primary Care Provider [phone] Rose Marie Norton SALVATIONIST Primary Care Provider [phone] Encounter Details Date Type Department Care Team (Late st Contact Info) Description 03/02/[address] [facility] [address] [place], [place] [id number] Robbin De León, APNP [address] [facility] [address] [place], [place] [address] Social History Tobacco Use Types Packs/Day Years Used Date Smoking Tobacco: Never Assessed Comments Unknown Sex and Gender Information Value Date Recorded Sex Assigned at Not on file Legal Sex Female 6:50 PM CDT Gender Identity Not on file Sexual Orientation Not on file documented as of this encounter Plan of Treatment Not on file documented as of this encounter Visit Diagnoses Diagnosis Headache(784.0) Headache documented in this encounter Care Teams Supervisor Porcelain Department Relationship Specialty Start Date End Date Rose Marie Norton NP PCP - General 07/06/15 10/31/16 Rose Marie Norton NP PCP - General 03/02/15 07/05/15 documented as of this encounter
--- OUTSIDE RECORDS SUMMARY | 2024-11-04 23:04 | XMS_ITS | Encounter Summary ---
Author Organization [facility] Address [address] [place] [address]. [place], [place] [address] [place] [address] Care Team Providers Care Box Stapler Name Role Phone Rose Marie Norton CANE CUTTER Primary Care Provider + Rose Marie Norton CANE CUTTER Primary Care Provider + , Generic Conversion [...] Care Team (Late st Contact Info) Description 10/11/[address] [facility] [place] [address] [facility], [address] [place] [address] Iglesia Little MD [address] [place] [address] [address] [place] [address] Social History Tobacco Use Types Packs/Day Years Used Date Smoking Tobacco: Never Assessed Comments Unknown Sex and Gender Information Value Date Recorded Sex Assigned at Not on file Legal Sex Female 6:50 PM CDT Gender Identity Not on file Sexual Orientation Not on file documented as of this encounter Last Filed Vital Signs Vital Sign Reading Time Taken Comments Blood Pressure 142/96 10/11/2013 3:11 PM MACHINE STAMPER Pulse 79 10/11/2013 3:11 PM MACHINE STAMPER Temperature - - Respiratory Rate - - Oxygen Saturation - - Inhaled Oxygen Concentration - - Weight - - Height - - Body Mass Index - - documented in this encounter Progress Notes * Iglesia Littel MD - 10/11/2013 3:00 PM CST Reason For Visit Consultation Visit Chief Complaint 1. Knee Pain REVIEW X RAY, R KNEE PAIN History of Present Illness 38 yo AAF c/o right knee swelling and pain. X-rays reviewed, showed fluid under the knee cap and medial compartment narrowing. Today, pain remains at the same level. more with weight bearing and better with rest. non smoker no derug habit Review of Systems Constitutional: no fever, no chills and no headache. ENT: no earache and no hearing loss. Cardiovascular: the heart rate was not slow and the heart rate was not fast. Respiratory: no shortness of breath and no wheezing. Active Problems 1. Esophageal Reflux 530.81 2. Foot Pain (Soft Tissue) 729.5 3. Hypertension 401.9 4. Joint Pain In The Right Knee 719.46 Social History ?? Current Some Day Smoker 305.1 ?? Never Drank Alcohol ?? Never Used Drugs Current Meds 1. Lisinopril-Hydrochlorothiazide 10-12.5 MG Oral Tablet; TAKE 1 TABLET DAILY; Therapy: (Recorded:[id number]) to 2. Naproxen 500 MG Oral Tablet; TAKE 1 TABLET EVERY 12 HOURS NEEDED; Therapy: 08Oct2013 to (Evaluate:[id number]); Last Rx:[id number] 3. Omeprazole 40 MG Oral Capsule Delayed Release; TK 1 C PO D; Therapy: 22Nov2012 to (Evaluate:17Nov2013); Last Rx:22Nov2012 Allergies 1. No Known Drug Allergies Vitals 11Oct2013 03:11PM Heart Rate 79 Systolic 142 Diastolic 96 O2 Saturation 100 Physical Exam Constitutional General appearance: No acute distress, well appearing and well nourished. Eyes Conjunctiva and lids: No swelling, erythema or discharge. Pupils and irises: Equal, round and reactive to light. Ears, Nose, Mouth, and Throat External inspection of ears and nose: Normal. Oropharynx: Normal with no erythema, edema, exudate or lesions. Pulmonary Respiratory effort: No increased work of breathing or signs of respiratory distress. Auscultation of lungs: Clear to auscultation. Cardiovascular Auscultation of heart: Normal rate and rhythm, normal S1 and S2, without murmurs. Musculoskeletal Right knee swelling and tenderness over the joint line. Results/Data XR KNEE 3 VIEW RT [id number] 12:03PM Iglesia Little Test Name Result Flag Reference TAMMY CERVANTES ORDERING MD: IGLESIA LITTLE MD ACCT: [id number] : 1975 PT TYPE: REG CLI SEX: F ORD SITE: [facility] IMAGING STUDY DATE REPORT # PROCEDURE CODE PROCEDURE 10/09/13 [id number] XR KNEE 3 VIEW RT EXTORDERID [id number] ACCESSION NUMBER [id number] CHART DOCUMENT IMPRESSION: JOINT EFFUSION AND PREPATELLAR SOFT TISSUE SWELLING WITHOUT EVIDENCE OF AN ACUTE FRACTURE OR DISLOCATION. IF THERE IS [...] M.D. 10/09/2013 14:55 DEEPTHI ALDRICH M.D. P #[id number] P/MA CC: IGLESIA LITTLE M.D. Radiology image is available. Click on Image Link above. Assessment 1. Joint Pain In The Right Knee 719.46 Plan 1. MRI Knee W/O Rt Requested for: [id number] Ordered; For: Joint Pain In The Right Knee (719.46); Ordered By: Iglesia Little Perform: [facility] Radiology Due: [id number] Signatures Electronically signed by : Iglesia Little M.D.; Oct 11 2013 3:22PM (Author) INE STAMPER documented in this encounter Plan of Treatment Not on file documented as of this encounter Visit Diagnoses Not on filedocumented in this encounter Care Teams Box Stapler Relationship Specialty Start Date End Date Rose Marie Norton NP PCP - General 07/06/15 10/31/16 Rose Marie Norton NP PCP - General 03/02/15 07/05/15 Tam Gilbert MD PCP - General 12/18/14 Iglesia Little MD [address] [place] [address] PCP - General 10/12/14 12/17/14 Iglesia Little MD [address] [place] [address] PCP - General 06/28/14 10/11/14 Iglesia Little MD [address] [place] [address] PCP - General 04/14/14 06/27/14 Iglesia Little MD [address] [place] [address] PCP - General 02/23/14 04/13/14 Iglesia Little MD [address] [place] [address] PCP - General 02/07/14 02/22/14 Iglesia Little MD [address] [place] [address] PCP - General 10/09/13 02/06/14 documented as of this encounter
--- OUTSIDE RECORDS SUMMARY | 2024-11-04 23:04 | XMS_ITS | Encounter Summary ---
Author Organization [facility] Address [address] [place] [address]. [place], [place] [address] [place] [address] Care Team Providers Care Surgery Attendant Name Role Phone Rose Marie Norton AUDIO/VIDEO ENGINEER Primary Care Provider + Rose Marie Norton AUDIO/VIDEO ENGINEER Primary Care Provider + Tam Gilbert MD Primary Care Provider Unavailable Iglesia Little MD Primary Care Provider + Iglesia Little MD Primary Care Provider + Iglesia Little MD Primary Care Provider + Iglesia Little MD Primary Care Provider + Iglesia Little MD Primary Care Provider + Iglesia Little MD Primary Care Provider + Tam Gilbert MD Primary Care Provider Unavailable Tam Gilbert MD Primary Care Provider Unavailable Tam Gilbert MD Primary Care Provider Unavailable Tam Gilbert MD Primary Care Provider Unavailable Iglesia Little MD Primary Care Provider + Encounter Details Date Type Department Care Team (Latest Contact Info) Description 04/04/2013 Abstract [facility] Medical Group Social History Tobacco [...] Procedure Name Priority Date/Time Associated Diagnosis Comments VITAMIN D, 25 OH Routine 04/04/2013 9:30 AM CDT documented in this encounter Results * (ABNORMAL) VITAMIN D, 25 OH (04/04/2013 9:30 AM CDT) VITAMIN D 25 HYDROXY S/P/B 16(L) 30 - 100 NG/ML [facility] TO EPIC CONVERSION Comment: Result Comment: ? INTERPRETATION ? DEFICIENT ??<20 ?INSUFFICIENT 20-30 ?SUFFICIENT 30-100 POTENTIAL INTOXICATION ??>100 ? TESTING PERFORMED AT [facility], A MEMBER OF THE [facility]. 04/04/2013 9:30 AM CDT 04/04/2013 9:30 AM CDT Narrative [facility] TO EPIC CONVERSION - 04/04/2013 3:35 PM CDT Result Communication: No patient communication needed at this time Iglesia Little MD LABORATORY Final Result [facility] TO EPIC CONVERSION documented in this encounter Visit Diagnoses Not on filedocumented in this encounter Care Teams Surgery Attendant Relationship Specialty Start Date End Date Rose Marie Norton NP PCP - General 07/06/15 10/31/16 Rose Marie Norton NP PCP - General 03/02/15 07/05/15 Tam Gilbert MD PCP - General 12/18/14 Iglesia Little MD [address] [place] [address] [address] PCP - General 10/12/14 12/17/14 Iglesia Little MD [address] [place] [address] PCP - General 06/28/14 10/11/14 Iglesia Little MD [address] [place] [address] PCP - General 04/14/14 06/27/14 Iglesia Little MD [address] [place] [address] PCP - General 02/23/14 04/13/14 Iglesia Little MD [address] [place] [address] PCP - General 02/07/14 02/22/14 Iglesia Little MD [address] [place] [address] PCP - General 10/09/13 02/06/14 , Generic Conversion, PCP - General 10/06/13 , Generic Conversion, PCP - General 09/17/1310/05 , Generic Conversion, PCP - General 07/06/1309/16 , Generic Conversion, PCP - General 06/20/13 Iglesia Little MD [address] [place] [address] PCP - General 04/04/13 06/19/13 documented as of this encounter
--- OUTSIDE RECORDS SUMMARY | 2024-11-04 23:04 | XMS_ITS | Encounter Summary ---
Author Organization [facility] Address [address] [place] [address]. [place] [address] [place] [address] Care Team Providers Care Supervisor Joiners Name Role Phone Rose Marie Norton MEAT CUTTING TEACHER Primary Care Provider +[phone] Rose Marie Norton NP Primary Care Provider + Encounter Details Date Type Department Care Team (Late st Contact Info) Description 03/06/2015 Abstract [facility] Medical Group Family Medicine - Counselor [address], [address] [place] [address] Rose Marie Norton, MEAT CUTTING TEACHER [address] [place] [phone] Social History Tobacco Use Types Packs/Day Years Used Date Smoking Tobacco: Never Assessed Comments Unknown Sex and Gender Information Value Date Recorded Sex Assigned at Not on file Legal Sex Female 6:50 PM CDT Gender Identity Not on file Sexual Orientation Not on file documented as of this encounter Last Filed Vital Signs Vital Sign Reading Time Taken Comments Blood Pressure 138/86 03/06/2015 9:55 AM CDT Pulse - - Temperature - - Respiratory Rate - - Oxygen Saturation - - Inhaled Oxygen Concentration - - Weight 112.9 kg (249 lb) 03/06/2015 9:55 AM CDT Height 160 cm (5' 3 ) 03/06/2015 9:55 AM CDT Body Mass Index 44.11 03/06/2015 9:55 AM CDT documented in this encounter Progress Notes * Rose Marie Norton NP - 03/06/2015 9:45 AM CDT Reason For Visit Consultation Visit Chief Complaint DISCUSS ELEVATED BP--OFF AND ON. HEADACHES X 2 WEEKS. BLOOD PRESSURE HAS BEEN SLIGHTLY ELEVATED : RECENTLY 140/98 - 130/86 History of Present Illness Blood pressure yesterday 142/100. Went to urgent care on Tuesday for elevated BP, but was normal when she arrived. Years ago took Lisinopril for BP, but it made her blood pressure too low (80s/40s). Having headaches for the last 2 weeks. Takes tylenol or aleve, but doesn't work. Describes headacheas 'drowsy', but not pounding. 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 Notes that she will go all shift without having to urinate, and then has the urge once she gets home. Takes Zantac for occasional heartburn. Review of Systems Constitutional: headache, but no fever. Cardiovascular: Normal and no chest pain. Respiratory: Normal and no shortness of breath. Gastrointestinal: heartburn. Active Problems 1. Back pain (724.5) (M54.9) [...] ?? Never Used Drugs Current Meds 1. No Reported Medications Recorded Allergies 1. No Known Drug Allergies Vitals Recorded: 06Mar2015 09:55AM Systolic 138 Diastolic 86 Height 5 ft 3 in Weight 249 lb BMI Calculated 44.11 BSA Calculated 2.12 Physical Exam Constitutional General appearance: No acute distress, well appearing and well nourished. Pulmonary Respiratory effort: No increased work of breathing or signs of respiratory distress. Auscultation of lungs: Clear to auscultation. Cardiovascular Palpation of heart: Normal PMI, no thrills. Auscultation of heart: Normal rate and rhythm, normal S1 and S2, without murmurs. Examination of extremities for edema and/or varicosities: Abnormal. Bilateral ankle pitting edema. Psychiatric Orientation to person, place, and time: Normal. Mood and affect: Normal. Assessment 1. Hypertension (401.9) (I10) Plan Hypertension 1. Hydrochlorothiazide 12.5 MG Oral Tablet; TAKE 1 TABLET DAILY IN THE MORNING Rx By: Rose Marie Norton; Dispense: 30 Days ; #:30 Tablet; Refill: 0; For: Hypertension; YASSINE = N; Verified Transmission to [facility]Y #[id number]; Last Updated By: [employer]; 03/06/2015 10:18:35 AM 2. Call if: You become dizzy or lightheaded, especially when you stand up after sitting for a while.; Status:Active; Requested for:[id number]; Ordered; For:Hypertension; Ordered By:Rose Marie Norton; 3. Call if: Your blood pressure is frequently higher than 140/90.; Status:Active; Requested for:[id number]; Ordered; For:Hypertension; Ordered By:Rose Marie Norton; 4. A diet low in sodium and high in potassium, magnesium, and calcium can help your blood pressure.; Status:Active; Requested for:[id number]; Ordered; For:Hypertension; Ordered By:Rose Marie Norton; 5. Begin or continue regular aerobic exercise. Gradually work up to at least 3 sessions of 30 minutes of exercise a week.; Status:Active; Requested for:[id number]; Ordered; For:Hypertension; Ordered By:Rose Marie Norton; 6. Take your blood pressure twice a day. Record the numbers and bring them with you to your appointments.; Status:Active; Requested for:06Mar2015; Ordered; For:Hypertension; Ordered By:Rose Marie Norton; Signatures Electronically signed by : Rose Marie Norton NP; Mar 06 2015 10:40AM MEDICARE INSURANCE SPECIALIST (Author) documented in this encounter Plan of Treatment Not on file documented as of this encounter Visit Diagnoses Not on filedocumented in this encounter Care Teams Supervisor Joiners Relationship Specialty Start Date End Date Rose Marie Norton NP PCP - General 07/06/15 10/31/16 Rose Marie Norton NP PCP - General 03/02/15 07/05/15 documented as of this encounter
--- OUTSIDE RECORDS SUMMARY | 2024-11-04 23:04 | XMS_ITS | Encounter Summary ---
Author Organization [facility] Address [address] [place] [address]. [place], [place] [address] [place] [address] Care Team Providers Care Space Systems Operations Manager Name Role Phone Unavailable Primary Care Provider Unavailabl e Encounter Details Date Type Department Care Team (Latest Contact Info) Description 11/16/2016 Abstract [facility] Medical Group Social History Tobacco [...]
--- OUTSIDE RECORDS SUMMARY | 2024-11-04 23:04 | XMS_ITS | Encounter Summary ---
Author Organization [facility] Address [address] [place] [address]. [place], [place] [address] [place] [address] Care Team Providers Care Estimator Binding Name Role Phone Rose Marie Norton INSTRUMENTATION AND CONTROL TECHNICIAN Primary Care Provider + Rose Marie Norton INSTRUMENTATION AND CONTROL TECHNICIAN Primary Care Provider + Tam Trevino MD Primary Care Provider Unavailable Iglesia Little MD Primary Care Provider + Iglesia Little MD Primary Care Provider + Iglesia Little MD Primary Care Provider + Encounter Details Date Type Department Care Team (Latest Contact Info) Description 04/14/2014 Abstract [facility] Medical Group Tam Trevino MD Social History Tobacco Use Types Packs/Day [...] Priority Date/Time Associated Diagnosis Comments IMAGE GENERIC Routine 04/14/2014 4:05 PM CDT documented in this encounter Results * IMAGE GENERIC (04/14/2014 4:05 PM CDT) Anatomical Region Laterality Modality Other 04/14/2014 4:05 PM CDT 04/14/2014 4:05 PM CDT Narrative 04/14/2014 6:52 PM CDT CERVANTESTAMMY Sanchez MD: NEWTON BENDER ?? ACCT: [id number] ?? ADMIT/SERVICE DATE: 04/14/14 DISCHARGE DATE: 04/14/14 ?? : 1975 PT TYPE: DEP CLI ?? SEX: F ORD SITE: [facility] ? STUDY DATE REPORT # PROCEDURE CODE PROCEDURE ?? 04/14/14 [id number] LSPN2-3V XR LUMBAR SPINE 2 TO 3 VIEWS ? EXTORDERID ? [id number] ? ACCESSION NUMBER ?? [id number] ?CHART DOCUMENT ? IMPRESSION: ? MILD ARTHRITIS. ? GRADE 1 RETROLISTHESIS L5-S1 LEVEL. ? HISTORY: ??LIFTING INJURY. ??RIGHT-SIDED BACK PAIN. ??BACK POPPED. ? LUMBAR SPINE X-RAYS ? TECHNIQUE: ??AP AND LATERAL VIEWS AND SPOT LATERAL VIEW OF THE LUMBOSACRAL ?? JUNCTION. ? FINDINGS: ??NO COMPRESSION FRACTURE. ??MILD DEGREE OF ARTHRITIS. ??GRADE 1 ?? RETROLISTHESIS L5-S1 LEVEL. ? ELECTRONICALLY SIGNED BY: ?? JESSICA LEW M.D. 04/14/2014 18:50 ?? JESSICA LEW M.D. ? D: ??04/14/2014 ??4:05 P ??#[id number] ?? T: ??04/14/2014 ??5:48 P/MA ? CC: ?IGLESIA LITTLE M.D. ?NEWTON BENDER, RAE ? Procedure Note Tam Trevino MD - 08/30/2018 TAMMY CERVANTES ORDERING MD: NEWTON BENDER ACCT: [id number] ADMIT/SERVICE DATE: 04/14/14 DISCHARGE DATE: 04/14/14 : 1975 PT TYPE: DEP CLI SEX: F ORD SITE: [facility] STUDY DATE REPORT # PROCEDURE CODE PROCEDURE 04/14/14 [id number] LSPN2-3V XR LUMBAR SPINE 2 TO 3 VIEWS EXTORDERID [id number] ACCESSION NUMBER [id number] CHART DOCUMENT IMPRESSION: MILD ARTHRITIS. GRADE 1 RETROLISTHESIS L5-S1 LEVEL. HISTORY: LIFTING INJURY. RIGHT-SIDED BACK PAIN. BACK POPPED. LUMBAR SPINE X-RAYS TECHNIQUE: AP AND LATERAL VIEWS AND SPOT LATERAL VIEW OF THE LUMBOSACRAL JUNCTION. FINDINGS: NO COMPRESSION FRACTURE. MILD DEGREE OF ARTHRITIS. GRADE 1 RETROLISTHESIS L5-S1 LEVEL. ELECTRONICALLY SIGNED BY: JESSICA LEW M.D. 04/14/2014 18:50 JESSICA LEW M.D. P #[id number] P/MA CC: Vy CEDENO, MSN us Generic Conversion Md TREVINO SCANNING Final R esult documented in this encounter Visit Diagnoses Not on filedocumented in this encounter Care Teams Estimator Binding Relationship Specialty Start Date End Date Rose Marie Norton, INSTRUMENTATION AND CONTROL TECHNICIAN PCP - General 07/06/15 10/31/16 Rose Marie Norton, INSTRUMENTATION AND CONTROL TECHNICIAN PCP - General 03/02/15 07/05/15 Tam Trevino MD PCP - General 12/18/14 Iglesia Little MD [address] [place], [place] [address]- PCP - General 10/12/14 12/17/14 Iglesia Little MD [address] [place], [place] [address] 122- PCP - General 06/28/14 10/11/14 Iglesia Little MD [address] [place], [place] [address]- PCP - General 04/14/14 06/27/14 documented as of this encounter
--- OUTSIDE RECORDS SUMMARY | 2024-11-04 23:04 | XMS_ITS | Encounter Summary ---
Author Organization [facility] Address [address] [place] [address]. [place], [place] [address] [place] [address] Care Team Providers Care Assistant Professor Of Mathematics Name Role Phone Rose Marie Norton SALES LEDGER ADMINISTRATOR Primary Care Provider + Rose Marie Norton NP Primary Care Provider + Md Generic Conversion MD Primary Care Provider Unavailable Iglesia Little MD Primary Care Provider + Iglesia Little MD Primary Care Provider + Iglesia Little MD Primary Care Provider + Iglesia Little MD Primary Care Provider + Encounter Details Date Type Department Care Team (Late st Contact Info) Description 03/04/2014 Abstract [facility] Medical Group Family Medicine - Calvin [address] [facility], [address] [place] [phone] Rose Marie Norton, SALES LEDGER ADMINISTRATOR [address] [place] [address] Social History Tobacco Use Types Packs/Day Years Used Date Smoking Tobacco: Never Assessed Comments Unknown Sex and Gender Information Value Date Recorded Sex Assigned at Not on file Legal Sex Female 6:50 PM CDT Gender Identity Not on file Sexual Orientation Not on file documented as of this encounter Last Filed Vital Signs Vital Sign Reading Time Taken Comments Blood Pressure 118/76 03/04/2014 11:53 AM CDT Pulse 88 03/04/2014 11:53 AM CDT Temperature - - Respiratory Rate - - Oxygen Saturation - - Inhaled Oxygen Concentration - - Weight 110.7 kg (244 lb) 03/04/2014 11:53 AM CDT Height 160 cm (5' 3 ) 03/04/2014 11:53 AM CDT Body Mass Index 43.22 03/04/2014 11:53 AM CDT documented in this encounter Progress Notes * Rose Marie Norton SALES LEDGER ADMINISTRATOR - 03/04/2014 11:45 AM CDT Reason For Visit Reason For Visit: Consultation Visit Chief Complaint 1. Cough c/o cough, finished antibiotic Tuesday. Feels better but still coughing History of Present Illness Cough: Maria Del Carmen Ray presents with complaints of cough. Associated symptoms include wheezing, chills, runny nose, stuffy nose and postnasal drainage, but no fever, no sore throat, no myalgias, no pleuritic chest pain, no chest pain, no vomiting, no heartburn, no mouth breathing, no noisy breathing, no rapid breathing, no hoarseness, no painful swallowing, no eye itching, no nose itching, no headache, no hemoptysis and no night sweats. Review of Systems Focused-Female: Constitutional: feeling poorly and chills. ENT: nasal discharge. Cardiovascular: Normal. Respiratory: shortness of breath and cough. Gastrointestinal: nasuea. Genitourinary: Normal. Integumentary: Normal. Musculoskeletal: Normal. Neurological: Normal. Psychiatric: Normal. Active Problems 1. Acute bronchitis (466.0) (J20.9) 2. Back pain (724.5) (M54.9) 3. Cough (786.2) (R05) 4. Esophageal reflux (530.81) (K21.9) 5. Foot pain (729.5) (M79.673) 6. Hypertension (401.9) (I10) 7. Knee pain, right (719.46) (M25.561) Past Medical [...] onychomycosis; YASSINE = N; Verified Transmission to [facility]Y #[id number]; Last Updated By: Melissa Lema; 11/21/2013 10:14:11 AM 2. Lisinopril-Hydrochlorothiazide 10-12.5 MG Oral Tablet; TAKE 1 TABLET DAILY; Therapy: (Recorded:[id number]) to Recorded Dispense: 90 Days ; #:90 Tablet; Refill: 0; For: Hypertension; YASSINE = N; Record; Last Updated By: Lori Beltran; 06/05/2012 11:43:03 AM 3. Naproxen 500 MG Oral Tablet; TAKE 1 TABLET EVERY 12 HOURS NEEDED; Therapy: 08Oct2013 to (Evaluate:[id number]); Last Rx:08Oct2013 Ordered Rx By: Iglesia Little; Dispense: 15 [...] Therapy: 18Feb2014 to (Last Rx:18Feb2014) Requested for: 18Feb2014 Ordered Rx By: Rose Marie Norton; Dispense: 0 Days ; #:1 X 8.5 GM Inhaler; Refill: 0; For: Acute bronchitis; YASSINE = N; Verified Transmission to [facility]Y #[id number]; Last Updated By: Vel Kay; 02/18/2014 11:29:14 AM Allergies 1. No Known Drug Allergies Recorded By: Lori Beltran; 06/06/2012 10:29:10 AM Vitals Vital Signs [Data Includes: Current Encounter] Recorded by : Melissa Lema at 04Mar2014 11:53AM Heart Rate 88 Systolic 118 Diastolic 76 O2 Saturation 99 Height 5 ft 3 in Weight 244 lb BMI Calculated 43.22 BSA Calculated 2.1 Physical Exam Constitutional General [...] No lymphadenopathy. Psychiatric Mood and affect: Normal. Examination of the Sinuses: right frontal tenderness and left frontal tenderness. Assessment 1. Acute sinusitis (461.9) (J01.90) Plan 1. Start: Cheratussin AC 100-10 MG/5ML Oral Syrup; TAKE 1 TEASPOONFUL EVERY 4 TO 6 HOURS NEEDED FOR COUGH Rx By: Iglesia Little; Dispense: 4 Days ; #:1 X 118 ML Bottle; Refill: 0; For: Acute sinusitis, Back pain; YASSINE = N; Print Rx; Last Updated By: Rose Marie Norton; 03/04/2014 12:04:31 PM 2. Start: Levofloxacin 500 MG Oral Tablet (Levaquin 500 MG Oral Tablet); TAKE 1 TABLET Daily FOR 7 DAYS Rx By: Rose Marie Norton; Dispense: 0 Days ; #:7 Tablet; Refill: 0; For: Acute sinusitis, Back pain; YASSINE = N; Verified Transmission to [facility] #[id number]; Last Updated By: [employer]; 03/04/2014 12:05:17 PM 3. Start: MethylPREDNISolone 16 MG Oral Tablet; Take 1 tablet daily Rx By: Rose Marie Norton; Dispense: 7 Days ; #:7 Tablet; Refill: 0; For: Acute sinusitis, Back pain; YASSINE = N; [id number]; Last Updated By: [employer]; 03/04/2014 12:05:17 PM Discussion/Summary If no improvement treat for allergies Signatures Electronically signed by : Rose Marie Norton NP; Mar 04 2014 1:56PM BEVEL FACE STONER AND POLISHER (Author) documented in this encounter Plan of Treatment Not on file documented as of this encounter Visit Diagnoses Not on filedocumented in this encounter Care Teams Assistant Professor Of Mathematics Relationship Specialty Start Date End Date Rose Marie Norton NP PCP - General 07/06/15 10/31/16 Rose Maire Norton NP PCP - General 03/02/15 07/05/15 Tam Gilbert MD PCP - General 12/18/14 Iglesia Little MD [address] [place] [address] PCP - General 10/12/14 12/17/14 Iglesia Little MD [address] [place] [address] PCP - General 06/28/14 10/11/14 Iglesia Little MD [address] [address] PCP - General 04/14/14 06/27/14 Iglesia Little MD [address] [address] PCP - General 02/23/14 04/13/14 documented as of this encounter
--- OUTSIDE RECORDS SUMMARY | 2024-11-04 23:04 | XMS_ITS | Encounter Summary ---
Author Organization [facility] Address [address] [place] [address]. [place], [place] [address] [place] [address] Care Team Providers Care Stock Analyst Name Role Phone Rose Marie Norton AIR SUPPORT OPERATIONS OPERATOR Primary Care Provider + Rose Marie Norton AIR SUPPORT OPERATIONS OPERATOR Primary Care Provider + Md Generic [place] [...] Department Care Team (Latest Contact Info) Description 07/10/2012 Abstract [facility] Medical Group Social History Tobacco Use [...] on filedocumented in this encounter Care Teams Stock Analyst Relationship Specialty Start Date End Date Rose Marie Norton, AIR SUPPORT OPERATIONS OPERATOR PCP - General 07/06/15 10/31/16 Rose Marie Norton, AIR SUPPORT OPERATIONS OPERATOR PCP - General 03/02/15 07/05/15 Tam Trevino MD PCP - General 12/18/14 Iglesia Little MD [address] [place] [address] PCP - General 10/12/14 12/17/14 Iglesia Little MD [address] [place] [address] PCP - General 06/28/14 10/11/14 Iglesia Little MD [address] [place] [address] PCP - General 04/14/14 06/27/14 Iglesia Little MD [address] [place] [address] PCP - General 02/23/14 04/13/14 Iglesia Little MD [address] [place] [address] PCP - General 02/07/14 02/22/14 Iglesia Little MD [address] [place] [address] PCP - General 10/09/13 02/06/14 , Generic Conversion, PCP - General 10/06/13 , Generic Conversion, PCP - General 09/17/1310/05 , Generic Conversion, PCP - General 07/06/1309/16 , Generic Conversion, PCP - General 06/20/13 Iglesia Little MD [address] [place] [address] PCP - General 04/04/13 06/19/13 Iglesia Little MD [address] [place] [address] PCP - General 01/31/13 04/03/13 Iglesia Little MD [address] [place] [address] PCP - General 01/18/13 01/30/13 Iglesia Little MD [address] [place] [address] PCP - General 12/17/11 01/17/13 documented as of this encounter
--- OUTSIDE RECORDS SUMMARY | 2024-11-04 23:04 | XMS_ITS | Encounter Summary ---
Author Organization [facility] Address [address] [place] [address]. [place], [place] [address] [place] [address] Care Team Providers Care Resource Economist Name Role Phone Rose Marie Norton DRIP BOX TENDER Primary Care Provider + Rose Marie Norton DRIP BOX TENDER Primary Care Provider + Tam Gilbert MD [...] Department Care Team (Latest Contact Info) Description 10/12/2013 Abstract [facility] Medical Group Social History Tobacco Use [...] on filedocumented in this encounter Care Teams Resource Economist Relationship Specialty Start Date End Date Rose Marie Norton DRIP BOX TENDER PCP - General 07/06/15 10/31/16 Rose Marie Norton NP PCP - General 03/02/15 07/05/15 Tam Gilbert MD PCP - General 12/18/14 Iglesia Little MD [address] [place] [address] PCP - General 10/12/14 12/17/14 Iglesia Little MD [address] [place] [address] PCP - General 06/28/14 10/11/14 Iglesia Little MD [address] [place] [address] PCP - General 04/14/14 06/27/14 Iglesia Little MD [address] [place] [address] PCP - General 02/23/14 04/13/14 Iglesia Little MD [address] [place] [address] PCP - General 02/07/14 02/22/14 Iglesia Little MD [address] [place] [address] PCP - General 10/09/13 02/06/14 documented as of this encounter
--- OUTSIDE RECORDS SUMMARY | 2024-11-04 23:04 | XMS_ITS | Encounter Summary ---
Author Organization [facility] Address [address] [place] [address]. [place], [place] [address] [address] Care Team Providers Care Campground Hand Name Role Phone Rose Marie Norton BODY ROLLING MACHINE TENDER Primary Care Provider + Rose Marie Norton BODY ROLLING MACHINE TENDER Primary Care Provider + Tam Glibert MD Primary Care Provider Unavailable Iglesia Little MD Primary Care Provider + Iglesia Little MD Primary Care Provider + Iglesia Little MD Primary Care Provider + Iglesia Little MD Primary Care Provider + Iglesia Little MD Primary Care Provider + Iglesia Little MD Primary Care Provider + Encounter Details Date Type Department Care Team (Latest Contact Info) Description 01/18/2014 Abstract [facility] Social History Tobacco Use [...] on filedocumented in this encounter Care Teams Campground Hand Relationship Specialty Start Date End Date Rose Marie Norton BODY ROLLING MACHINE TENDER PCP - General 07/06/15 10/31/16 Rose Marie Norton NP PCP - General 03/02/15 07/05/15 Tam Gilbert MD PCP - General 12/18/14 Iglesia Little MD [address] [place] [address] PCP - General 10/12/14 12/17/14 Iglesia Little MD [address] [place] [address] PCP - General 06/28/14 10/11/14 Iglesia Little MD [address] [place] [address] PCP - General 04/14/14 06/27/14 Iglesia Little MD [address] [place] [address] PCP - General 02/23/14 04/13/14 Iglesia Little MD [address] [place] [address] PCP - General 02/07/14 02/22/14 Iglesia Little MD [address] [place] [address] PCP - General 10/09/13 02/06/14 documented as of this encounter
--- OUTSIDE RECORDS SUMMARY | 2024-11-04 23:04 | XMS_ITS | Encounter Summary ---
Author Organization [facility] Address [address] [place] [address]. [place], [place] [address] [place] [address] Care Team Providers Care Survey Interviewer Name Role Phone Rose Marie Norton LEAVE MANAGER Primary Care Provider + Rose Marie Norton LEAVE MANAGER Primary Care Provider + Md Generic Madison [...] Care Team (Late st Contact Info) Description 12/10/2013 Abstract [facility] Medical [facility] Family Medicine - [place] [address] [facility] [address], [address] [place] [address] Rose Marie Norton, LEAVE MANAGER [address] [place] [address] Social History Tobacco Use Types Packs/Day Years Used Date Smoking Tobacco: Never Assessed Comments Unknown Sex and Gender Information Value Date Recorded Sex Assigned at Not on file Legal Sex Female 6:50 PM CDT Gender Identity Not on file Sexual Orientation Not on file documented as of this encounter Last Filed Vital Signs Vital Sign Reading Time Taken Comments Blood Pressure 120/90 12/10/2013 3:33 PM GRAIN THRESHER Pulse 79 12/10/2013 3:33 PM GRAIN THRESHER Temperature - - Respiratory Rate - - Oxygen Saturation - - Inhaled Oxygen Concentration - - Weight 110.7 kg (244 lb) 12/10/2013 3:33 PM GRAIN THRESHER Height 160 cm (5' 3 ) 12/10/2013 3:33 PM GRAIN THRESHER Body Mass Index 43.22 12/10/2013 3:33 PM GRAIN THRESHER documented in this encounter Progress Notes * Rose Marie Norton LEAVE MANAGER - 12/10/2013 3:30 PM CST Message Message: Patient states rash is getting worse with new areas developing. Active Problems 1. Cough 786.2 2. Esophageal Reflux 530.81 3. Foot Pain (Soft Tissue) 729.5 4. Hypertension 401.9 5. Joint Pain In The Right Knee 719.46 6. Onychomycosis 110.1 7. Tinea Corporis 110.5 8. Tinea Cruris 110.3 Current Meds 1. Azithromycin 250 MG Oral Tablet; TAKE 2 TABLETS ON DAY 1 THEN TAKE 1 TABLET A DAY FOR 4 DAYS; Therapy: 20Nov2013 to (Last Rx:20Nov2013) Requested for: 20Nov2013 2. Fluticasone Propionate 50 MCG/ACT Nasal Suspension; USE 2 SPRAYS IN EACH NOSTRIL ONCE DAILY; Therapy: 21Nov2013 to (Last Rx:21Nov2013) Requested for: 21Nov2013 3. Lisinopril-Hydrochlorothiazide 10-12.5 MG Oral Tablet; TAKE 1 TABLET DAILY; Therapy: (Recorded:[id number]) to 4. Nasonex 50 MCG/ACT Nasal Suspension; Inhale 2 sprays in each nostril once daily; Therapy: 20Nov2013 to (Last Rx:20Nov2013) Requested for: 20Nov2013 Allergies 1. No Known Drug Allergies Plan 1. Omeprazole 40 MG Oral Capsule Delayed Release; TK 1 C PO D; Therapy: 22Nov2012 to (Evaluate:17Nov2013); Last Rx:22Nov2012 2. Naproxen 500 MG Oral Tablet; TAKE 1 TABLET EVERY 12 HOURS NEEDED; Therapy: 08Oct2013 to (Evaluate:23Oct2013); Last Rx:08Oct2013 3. Ciclodan 8 % External Solution; APPLY AND GENTLY MASSAGE INTO AFFECTED AREA(S) TWICE DAILY; Therapy: 15Oct2013 to (Last Rx:10Dec2013) Requested for: 10Dec2013 4. Dermatology Referral Outpatient Evaluate and Treat Requested for: 13Dec2013 5. Fluconazole 150 MG Oral Tablet; TAKE 1 TABLET DAILY DIRECTED; Therapy: 10Dec2013 to (Complete:07Jan2014) Requested for: 10Dec2013; Last Rx:10Dec2013; Edited 6. Call if: The itching is worse. Done: [id number] 7. Call if: The rash is not better in 1 week. Done: 96Cxc8493 8. Call if: There is redness, swelling, or pain in the area. Done: 01Oxk3034 9. Call if: Your rash is worse. Done: 24Ynp6478 10. Good handwashing is one of the best ways to control the spread of germs. Done: 24Srn4167 11. Keeping the affected area dry will help heal your skin. Done: 99Whc3831 12. The following may help your itching and prevent it from returning. Done: 27Pnj1651 13. Wash all bedding and clothing in hot water for at least 10 minutes. Done: 76Ity1089 14. Wear loose cotton clothing. Done: 40Txc5543 Signatures Electronically signed by : Rose Marie Norton NP; Dec 13 2013 11:14AM (Author) N THRESHER * Rose Marie Norton NP - 12/10/2013 3:30 PM CST Reason For Visit Reason For Visit: Acute Visit Chief Complaint 1. Derm Abnormal Skin Chief Complaint Free Text: pt here for ring worm History of Present Illness HPI Free Text: Patient noted ringworm starting last week. Using lotrimin with out relief, very itchy. Review of Systems Focused-Female: Constitutional: Normal. ENT: normal. Cardiovascular: Normal. Respiratory: Normal. Gastrointestinal: Normal. Genitourinary: Normal. Integumentary: skin lesion, itching and skin rash. Musculoskeletal: Normal. Neurological: Normal. Psychiatric: Normal. Active Problems 1. Cough 786.2 2. Esophageal Reflux 530.81 3. Foot Pain (Soft Tissue) 729.5 4. Hypertension 401.9 5. Joint Pain In The Right Knee 719.46 6. Onychomycosis 110.1 Past Medical History Patient indicats [...] 20Nov2013 to (Last Rx:20Nov2013) Requested for: 20Nov2013 Ordered; For: Cough (786.2); Rx By: Iglesia Little; Dispense: 0 Days ; #:6 Tablet; Refill: 0; Verified Transmission to [facility][id number] 2. Ciclodan 8 % External Solution; APPLY AND GENTLY MASSAGE INTO AFFECTED AREA(S) TWICE DAILY; Therapy: 15Oct2013 to (Last Rx:15Oct2013) Requested for: [id number] Ordered; For: Onychomycosis (110.1); Rx By: Iglesia Little; Dispense: 0 Days ; #:1 X 6.6 ML Bottle; Refill: 3; Verified Transmission to [facility] #2713; Last Updated By: Lori Beltran 3. Fluticasone Propionate 50 MCG/ACT Nasal Suspension; USE 2 SPRAYS IN EACH NOSTRIL ONCE DAILY; Therapy: 21Nov2013 to (Last Rx:21Nov2013) Requested for: 21Nov2013 Ordered; For: Cough (786.2), Onychomycosis (110.1); Rx By: Iglesia Little; Dispense: 0 Days ; #:2 X 16 GM Bottle; Refill: 3; Verified Transmission to [facility] #2713; Last Updated By: Melissa Lema 4. Lisinopril-Hydrochlorothiazide 10-12.5 MG Oral Tablet; TAKE 1 TABLET DAILY; Therapy: (Recorded:[id number]) to Recorded; For: Hypertension (401.9); Dispense: 90 Days ; #:90 Tablet; Refill: 0; Record; Last Updated By: Lori Beltran 5. Naproxen 500 MG Oral Tablet; TAKE 1 TABLET EVERY 12 HOURS NEEDED; Therapy: 08Oct2013 to (Evaluate:74Ooc5591); Last Rx:08Oct2013 Ordered; For: Joint Pain In The Right Knee (719.46); Rx By: Iglesia Little; Dispense: 15 Days ; #:30 Tablet; Refill: 0; Print Rx 6. Nasonex 50 MCG/ACT Nasal Suspension; Inhale 2 sprays in each nostril once daily; Therapy: 20Nov2013 to (Last Rx:20Nov2013) Requested for: 20Nov2013 Ordered; For: Cough (786.2); Rx By: Iglesia Little; Dispense: 0 Days ; #:1 GM; Refill: 5; Verified Transmission to [facility] #[id number] 7. Omeprazole 40 MG Oral Capsule Delayed Release; TK 1 C PO D; Therapy: 22Nov2012 to (Evaluate:17Nov2013); Last Rx:22Nov2012 Ordered; For: Esophageal Reflux (530.81); Rx By: Iglesia Little; Dispense: 90 Days ; #:1 X 90 EA Bottle; Refill: 3; Print Rx Allergies 1. No Known Drug Allergies No Known Drug Allergies Vitals Vital Signs [Data Includes: Current Encounter] [id number] 03:33PM Heart Rate 79 Respiration 16 Systolic 120 Diastolic 90 O2 Saturation 100 BMI Calculated 43.23 BSA Calculated 2.1 Height 5 ft 3 in Weight 244 lb Physical Exam Constitutional General appearance: No [...] of extremities for edema and/or varicosities: Normal. Lymphatic Palpation of lymph nodes in neck: No lymphadenopathy. Musculoskeletal Digits and nails: Abnormal. Examination of the extremities revealed right thumb nail thinkened and yellow. Skin Skin and subcutaneous tissue: Normal without rashes or lesions. Examination of the skin for lesions: Abnormal. 3, red plaque(s) with sharply demarcated borders. Described as circularly-shaped. Abdomen, thigh, right shoulder. Neurologic Reflexes: 2+ and symmetric. Psychiatric Mood and affect: Normal. Assessment 1. Onychomycosis 110.1 2. Tinea Corporis 110.5 Plan 1. Omeprazole 40 MG Oral Capsule Delayed Release; TK 1 C PO D; Therapy: 22Nov2012 to (Evaluate:17Nov2013); Last Rx:22Nov2012 Ordered; For: Esophageal Reflux (530.81); Rx By: Iglesia Little; Dispense: 90 Days ; #:1 X 90 EA Bottle; Refill: 3; Print Rx; Last Updated By: Rose Marie Norton 2. Naproxen 500 MG Oral Tablet; TAKE 1 TABLET EVERY 12 HOURS NEEDED; Therapy: 08Oct2013 to (Evaluate:23Oct2013); Last Rx:[id number] Ordered; For: Joint Pain In The Right Knee (719.46); Rx By: Iglesia Little; Dispense: 15 Days ; #:30 Tablet; Refill: 0; Print Rx; Last Updated By: Rose Marie Norton 3. Ciclodan 8 % External Solution; APPLY AND GENTLY MASSAGE INTO AFFECTED AREA(S) TWICE DAILY; Therapy: 38Xyi5690 to (Last Rx:[id number]) Requested for: 52Vxp9565 Ordered; For: Onychomycosis (110.1); Rx By: Rose Marie Norton; Dispense: 0 Days ; #:1 X 6.6 ML Bottle; Refill: 3; Record 4. Fluconazole 150 MG Oral Tablet; TAKE 1 TABLET DAILY DIRECTED; Therapy: 18Urd2942 to (Complete:07Jan2014) Requested for: 07Fau0092; Last Rx:[id number]; Edited Ordered; For: Tinea Cruris (110.3); Rx By: Rose Marie Norton; Dispense: 14 Days ; #:14 Tablet; Refill: 1; Verified Transmission to [facility] #0687 5. Call if: The itching is worse. Done: 41Nrv4993 Ordered; For: Tinea Cruris (110.3); Ordered By: Rose Marie Norton 6. Call if: The rash is not better in 1 week. Done: 74Lml7892 Ordered; For: Tinea Cruris (110.3); Ordered By: Rose Marie Norton 7. Call if: There is redness, swelling, or pain in the area. Done: 64Epz6031 Ordered; For: Tinea Cruris (110.3); Ordered By: Rose Marie Norton 8. Call if: Your rash is worse. Done: 38Zoy3773 Ordered; For: Tinea Cruris (110.3); Ordered By: Rose Marie Norton 9. Good handwashing is one of the best ways to control the spread of germs. Done: 88Evy4409 Ordered; For: Tinea Cruris (110.3); Ordered By: Rose Marie Norton 10. Keeping the affected area dry will help heal your skin. Done: 70Hhy1788 Ordered; For: Tinea Cruris (110.3); Ordered By: Rose Marie Norton 11. The following may help your itching and prevent it from returning. Done: 88Msf0821 Ordered; For: Tinea Cruris (110.3); Ordered By: Rose Marie Norton 12. Wash all bedding and clothing in hot water for at least 10 minutes. Done: 16Uuz9128 Ordered; For: Tinea Cruris (110.3); Ordered By: Rose Marie Norton 13. Wear loose cotton clothing. Done: 26Qiq9165 Ordered; For: Tinea Cruris (110.3); Ordered By: Rose Marie Norton Signatures Electronically signed by : Rose Marie Norton NP; Dec 10 2013 4:01PM (Author) Electronically signed by : Iglesia Little M.D.; Dec 14 2013 12:44PM (Review) N THRESHER documented in this encounter Plan of Treatment Not on file documented as of this encounter Visit Diagnoses Not on filedocumented in this encounter Care Teams Survey Interviewer Relationship Specialty Start Date End Date Rose Marie Norton, LEAVE MANAGER PCP - General 07/06/15 10/31/16 Rose Marie Norton, LEAVE MANAGER PCP - General 03/02/15 07/05/15 Tam Trevino MD PCP - General 12/18/14 Iglesia Little MD [address] [place] [address] PCP - General 10/12/14 12/17/14 Iglesia Little MD [address] [place] [address] PCP - General 06/28/14 10/11/14 Iglesia Little MD [address] [place] [address] PCP - General 04/14/14 06/27/14 Iglesia Little MD [address] [place] [address] PCP - General 02/23/14 04/13/14 Iglesia Little MD [address] [place] [address] PCP - General 02/07/14 02/22/14 Iglesia Little MD [address] [address] PCP - General 10/09/13 02/06/14 documented as of this encounter
--- OUTSIDE RECORDS SUMMARY | 2024-11-04 23:04 | XMS_ITS | Encounter Summary ---
Author Organization [facility] Address [address] [place] [address]. [place] [address] [place] [address] Care Team Providers Care Market Research Senior Project Manager Name Role Phone Rose Marie Norton PARKING LOT LABORER Primary Care Provider + Rose Marie Norton PARKING LOT LABORER Primary Care Provider + Md Generic Madison [...] Care Team (Late st Contact Info) Description 01/18/2013 Abstract [facility] [address] [place] [address] Christin White MD [address] [facility] [address] [place] [address] Social History Tobacco Use Types Packs/Day Years Used Date Smoking Tobacco: Never Assessed Comments Unknown Sex and Gender Information Value Date Recorded Sex Assigned at Not on file Legal Sex Female 6:50 PM CDT Gender Identity Not on file Sexual Orientation Not on file documented as of this encounter Plan of Treatment Not on file documented as of this encounter Visit Diagnoses Diagnosis Nonsuppurative otitis media Nonsuppurative otitis media, not specified as acute or chronic documented in this encounter Care Teams Market Research Senior Project Manager Relationship Specialty Start Date End Date Rose Marie Norton NP PCP - General 07/06/15 10/31/16 Rose Marie Norton PARKING LOT LABORER PCP - General 03/02/15 07/05/15 Tam Trevino MD PCP - General 12/18/14 Iglesia Little MD [address] [address] PCP - General 10/12/14 12/17/14 Iglesia Little MD [address] [place] [address] PCP - General 06/28/14 10/11/14 Iglesia Little MD [address] [place] [address] [place] [address] PCP - General 04/14/14 06/27/14 Iglesia Little MD [address] [address] [place] [address] PCP - General 02/23/14 04/13/14 Iglesia Little MD [address] [place] [address] PCP - General 02/07/14 02/22/14 Iglesia Little MD [address] [place] [address] PCP - General 10/09/13 02/06/14 , Generic Conversion, PCP - General 10/06/13 , Generic Conversion, PCP - General 09/17/1310/05 , Generic Conversion, PCP - General 07/06/1309/16 , Generic Conversion, PCP - General 06/20/13 Iglesia Little MD [address] [place] [address] PCP - General 04/04/13 06/19/13 Iglesia Little MD [address] [place] [address] PCP - General 01/31/13 04/03/13 Iglesia Little MD [address] [place] [address] PCP - General 01/18/13 01/30/13 documented as of this encounter
--- OUTSIDE RECORDS SUMMARY | 2024-11-04 23:04 | XMS_ITS | Encounter Summary ---
Author Organization [facility] Address [address] [place] [address]. [place], [place] [address] [place] [address] Care Team Providers Care Certified Nursing Attendant Name Role Phone Rose Marie Norton WHEEL CUTTER Primary Care Provider + Rose Marie Norton WHEEL CUTTER Primary Care Provider + Md Generic Conversion Primary Care Provider Unavailable Iglesia Little MD Primary Care Provider + Iglesia Little MD Primary Care Provider + Iglesia Little MD Primary Care Provider + Iglesia Little MD Primary Care Provider + Iglesia Little MD Primary Care Provider + Iglesia Little MD Primary Care Provider + Md Generic Conversion Primary Care Provider Unavailable Encounter Details Date Type Department Care Team (Late st Contact Info) Description 10/06/2013 Abstract [facility] [address] [place], [place] [id number] Estuardo Marlow MD [address] [address] Social History Tobacco Use Types Packs/Day Years Used Date Smoking Tobacco: Never Assessed Comments Unknown Sex and Gender Information Value Date Recorded Sex Assigned at Not on file Legal Sex Female 6:50 PM CDT Gender Identity Not on file Sexual Orientation Not on file documented as of this encounter Plan of Treatment Not on file documented as of this encounter Visit Diagnoses Diagnosis Effusion of lower leg joint documented in this encounter Care Teams Certified Nursing Attendant Relationship Specialty Start Date End Date Rose Marie Norton, WHEEL CUTTER PCP - General 07/06/15 10/31/16 Rose Marie Norton WHEEL CUTTER PCP - General 03/02/15 07/05/15 Tam Gilbert MD PCP - General 12/18/14 Iglesia Little MD [address] [place] [address] PCP - General 10/12/14 12/17/14 Iglesia Little MD [address] [place] [address] PCP - General 06/28/14 10/11/14 Iglesia Little MD [address] [place] [address] PCP - General 04/14/14 06/27/14 Iglesia Little MD [address] [place] [address] PCP - General 02/23/14 04/13/14 Iglesia Little MD [address] [place] [address] PCP - General 02/07/14 02/22/14 Iglesia Little MD [address] [facility] [address] [place] [address] PCP - General 10/09/13 02/06/14 , Tam Wallace MD PCP - General 10/06/13 documented as of this encounter
--- OUTSIDE RECORDS SUMMARY | 2024-11-04 23:04 | XMS_ITS | Encounter Summary ---
Author Organization [facility] Address [address] [place] [address]. [place], [place] [address] [place] [address] Care Team Providers Care Residency Program Coordinator Name Role Phone Rose Marie Norton DATA ENTRY ANALYST Primary Care Provider + Rose Marie Norton DATA ENTRY ANALYST Primary Care Provider + , Generic Conversion [...] Care Team (Late st Contact Info) Description 01/21/2014 Abstract [facility] Family Medicine - [place] [address] [facility], [address] [place] [address] Iglesia Little MD [address] [place] [address] [address] [place] [address] Social History Tobacco Use Types Packs/Day Years Used Date Smoking Tobacco: Never Assessed Comments Unknown Sex and Gender Information Value Date Recorded Sex Assigned at Not on file Legal Sex Female 6:50 PM CDT Gender Identity Not on file Sexual Orientation Not on file documented as of this encounter Last Filed Vital Signs Vital Sign Reading Time Taken Comments Blood Pressure 140/72 01/22/2014 8:48 AM CDT Pulse 80 01/22/2014 8:48 AM CDT Temperature - - Respiratory Rate - - Oxygen Saturation - - Inhaled Oxygen Concentration - - Weight 110.7 kg (244 lb) 01/22/2014 8:48 AM CDT Height 160 cm (5' 3 ) 01/22/2014 8:48 AM CDT Body Mass Index 43.22 01/22/2014 8:48 AM CDT documented in this encounter Progress Notes * Iglesia Little MD - 01/21/2014 1:45 PM CDT Reason For Visit Consultation Visit Chief Complaint 1. Abdominal Pain 2. Chest Pain very bad acid reflux, very bad chest pains due to reflux, went to ER, would like to see Dr. Alemanfor scope, Has tried Prilosec and Zantac and samples with norelief History of Present Illness 38 yo AAF c/o back pain and chest tightness along with URT symptoms for the past week, OTC not helping, affects daily activity non smoker no drug habit Review of Systems Constitutional: no fever, no chills and no headache. ENT: no earache and no hearing loss. Cardiovascular: the heart rate was not slow and the heart rate was not fast. Respiratory: no shortness of breath and no wheezing. Gastrointestinal: no abdominal pain and no vomiting. Active Problems 1. Cough (786.2) (R05) 2. Esophageal reflux (530.81) (K21.9) 3. Foot pain (729.5) (M79.673) 4. Hypertension (401.9) (I10) 5. Knee pain, right (719.46) (M25.561) 6. Onychomycosis (110.1) (B35.1) 7. Tinea corporis (110.5) (B35.4) 8. Tinea cruris (110.3) (B35.6) Social History ?? Current some day smoker (305.1) (Z72.0) ?? Never Drank Alcohol ?? Never Used Drugs Current Meds 1. Azithromycin 250 MG Oral Tablet (Zithromax); TAKE 2 TABLETS ON DAY 1 THEN TAKE 1 TABLET A DAY FOR 4 DAYS; Therapy: 20Nov2013 to (Last Rx:20Nov2013) Requested for: 20Nov2013 Ordered 2. Ciclodan 8 % External Solution; APPLY AND GENTLY MASSAGE INTO AFFECTED AREA(S) TWICE DAILY; Therapy: 15Oct2013 to (Last Rx:[id number]) Requested for: 10Dec2013 Ordered 3. Fluticasone Propionate 50 MCG/ACT Nasal Suspension; USE 2 SPRAYS IN EACH NOSTRIL ONCE DAILY; Therapy: 21Nov2013 to (Last Rx:21Nov2013) Requested for: 21Nov2013 Ordered 4. Lisinopril-Hydrochlorothiazide 10-12.5 MG Oral Tablet; TAKE 1 TABLET DAILY; Therapy: (Recorded:[id number]) to Recorded 5. Naproxen 500 MG Oral Tablet; TAKE 1 TABLET EVERY 12 HOURS NEEDED; Therapy: 08Oct2013 to (Evaluate:23Oct2013); Last Rx:08Oct2013 Ordered 6. Nasonex 50 MCG/ACT Nasal Suspension; Inhale 2 sprays in each nostril once daily; Therapy: 20Nov2013 to (Last Rx:20Nov2013) Requested for: 20Nov2013 Ordered 7. Omeprazole 40 MG Oral Capsule Delayed Release; TK 1 C PO D; Therapy: 22Nov2012 to (Evaluate:17Nov2013); Last Rx:22Nov2012 Ordered Allergies 1. No Known Drug Allergies Vitals Recorded by : Melissa Lema at 22Jan2014 08:48AM Heart Rate 80 Systolic 140 Diastolic 72 O2 Saturation 100 Height 5 ft 3 in Weight 244 [...] rhythm, normal S1 and S2, without murmurs. Assessment 1. Cough (786.2) (R05) 2. Back pain (724.5) (M54.9) Discussion/Summary prescriptions provided along with a home program. patient understands and agrees with the treatmentplan. Signatures Electronically signed by : Iglesia Little M.D.; Jan 23 2014 4:28PM SUPERVISOR SHOP (Author) documented in this encounter Plan of Treatment Not on file documented as of this encounter Visit Diagnoses Not on filedocumented in this encounter Care Teams Residency Program Coordinator Relationship Specialty Start Date End Date Rose Marie Norton, DATA ENTRY ANALYST PCP - General 07/06/15 10/31/16 Rose Marie Norton, DATA ENTRY ANALYST PCP - General 03/02/15 07/05/15 Tam Gilbert MD PCP - General 12/18/14 Iglesia Little MD [address] [place] [address] PCP - General 10/12/14 12/17/14 Iglesia Little MD [address] [place] [address] PCP - General 06/28/14 10/11/14 Iglesia Little MD [address] [place] [address] PCP - General 04/14/14 06/27/14 Iglesia Little MD [address] [place] [address] PCP - General 02/23/14 04/13/14 Iglesia Little MD [address] [id number] PCP - General 02/07/14 02/22/14 Iglesia Little MD [address] [id number] PCP - General 10/09/13 02/06/14 documented as of this encounter
--- OUTSIDE RECORDS SUMMARY | 2024-11-04 23:04 | XMS_ITS | Encounter Summary ---
Author Organization [facility] Address Critical access hospital6 [facility] [place] [address] [place] [address] Care Team Providers Care Cloth Drier Name Role Phone Rose Marie Norton STRAW HAT BRUSHER Primary Care Provider + Rose Marie Norton STRAW HAT BRUSHER Primary Care Provider + Tam Gilbert MD [...] Care Team (Late st Contact Info) Description 04/04/[address] [facility] [place] [address] Iglesia Little MD [address] [place] [address] [address] [place] [address] Social History Tobacco Use Types Packs/Day Years Used Date Smoking Tobacco: Never Assessed Comments Unknown Sex and Gender Information Value Date Recorded Sex Assigned at Not on file Legal Sex Female 6:50 PM CDT Gender Identity Not on file Sexual Orientation Not on file documented as of this encounter Plan of Treatment Not on file documented as of this encounter Visit Diagnoses Diagnosis Urinary tract infection Urinary tract infection, site not specified documented in this encounter Care Teams Cloth Drier Relationship Specialty Start Date End Date Rose Marie Norton NP PCP - General 07/06/15 10/31/16 Rose Marie Norton NP PCP - General 03/02/15 07/05/15 Tam Gilbert MD PCP - General 12/18/14 Iglesia Little MD [address] [place] [facility] [place] [address] PCP - General 10/12/14 12/17/14 Iglesia Little MD [address] [place] [facility] [place] [address] PCP - General 06/28/14 10/11/14 Iglesia Little MD [address] [facility] [place] [address] PCP - General 04/14/14 06/27/14 Iglesia Little MD [address] [place] [address] PCP - General 02/23/14 04/13/14 Iglesia Little MD [address] [address] PCP - General 02/07/14 02/22/14 Iglesia Little MD [address] [address] PCP - General 10/09/13 02/06/14 Md, Generic Conversion, MD PCP - General 10/06/13 , Generic Conversion, PCP - General 09/17/1310/05 , Generic Conversion, MD PCP - General 07/06/1309/16 , Generic Conversion, MD PCP - General 06/20/13 Iglesia Little MD [address] [address] PCP - General 04/04/13 06/19/13 documented as of this encounter
--- OUTSIDE RECORDS SUMMARY | 2024-11-04 23:04 | XMS_ITS | Encounter Summary ---
Author Organization [facility] Address [address] [place] [address]. [place], [place] [id number] [place] [address] Care Team Providers Care Bowling Teacher Name Role Phone Rose Marie Norton MACHINE DYER Primary Care Provider + Rose Marie Norton MACHINE DYER Primary Care Provider + Md Generic [place] [...] Care Team (Late st Contact Info) Description 11/22/2012 Abstract [facility] Family Medicine - [place] [address], [address] [place] [id number] Iglesia Little MD [address] [facility] [address] [place] [address] Social History Tobacco Use Types Packs/Day Years Used Date Smoking Tobacco: Never Assessed Comments Unknown Sex and Gender Information Value Date Recorded Sex Assigned at Not on file Legal Sex Female 6:50 PM CDT Gender Identity Not on file Sexual Orientation Not on file documented as of this encounter Last Filed Vital Signs Vital Sign Reading Time Taken Comments Blood Pressure 134/100 11/22/2012 12:38 PM ER RN Pulse 90 11/22/2012 12:38 PM ER RN Temperature - - Respiratory Rate - - Oxygen Saturation - - Inhaled Oxygen Concentration - - Weight 106.6 kg (235 lb) 11/22/2012 12:38 PM ER RN Height - - Body Mass Index 41.63 06/06/2012 10:28 AM CDT documented in this encounter Progress Notes * Iglesia Little MD - 11/22/2012 12:30 PM CST Reason For Visit Reason For Visit: Acute Visit Chief Complaint 1. Headache 2. Chest Pain Chief Complaint Free Text: 37 yo AAF for f/u on ER visit for CP a wek ago. left after 4 hours. CP is recurrent, not related toactivity to position. comes and goes, last for mins. sub-sternal. gets acid reflux sometimes. non smoker Chest pain and headache behind left eye Review of Systems Focused-Female: Constitutional: no fever, no chills and no headache. ENT: no earache and no hearing loss. Active Problems 1. Hypertension 401.9 Past Medical History Patient indicats no significant past medical history. Surgical History Patient indicates no past surgical history. Family History Patient indicates no significant family history of disease. Social History ?? Current Some Day Smoker 305.1 Current Meds 1. Lisinopril-Hydrochlorothiazide 10-12.5 MG Oral Tablet; TAKE 1 TABLET DAILY; Therapy: (Recorded:[id number]) to Recorded; For: Hypertension (401.9); Dispense: 90 Days ; #:90 Tablet; Refill: 0; Record; Last Updated By: Lori Beltran Allergies 1. No Known Drug Allergies No Known Drug Allergies Vitals Vital Signs [Data Includes: Current Encounter] 22Nov2012 12:38PM Heart Rate 90 Systolic 134 Diastolic 100 O2 Saturation 97 BMI Calculated 41.64 BSA Calculated 2.07 Weight 235 lb Physical Exam Constitutional General appearance: No [...] rhythm, normal S1 and S2, no murmurs. Abdomen Epigastric tenderness. Assessment 1. Hypertension 401.9 2. Esophageal Reflux 530.81 Plan 1. Acetaminophen 500 MG Oral Tablet; TAKE 2 TABLET 4 times daily TDD:8; Therapy: to (Evaluate:05Dec2012); Last Rx:22Nov2012 Ordered; For: Esophageal Reflux (530.81); Rx By: Iglesia Little; Dispense: 13 Days ; #:1 X 100 EA Box; Refill: 0; Record 2. Ibuprofen 800 MG Oral Tablet; TAKE 1 TABLET 3 TIMES DAILY AFTER MEALS; Therapy: to (Evaluate:12Dec2012); Last Rx:22Nov2012 Ordered; For: Esophageal Reflux (530.81); Rx By: Iglesia Little; Dispense: 20 Days ; #:60 Tablet; Refill: 0; Print Rx 3. Omeprazole 40 MG Oral Capsule Delayed Release; TK 1 C PO D; Therapy: to (Evaluate:17Nov2013); Last Rx:22Nov2012 Ordered; For: Esophageal Reflux (530.81); Rx By: Iglesia Little; Dispense: 90 Days ; #:1 X 90 EA Bottle; Refill: 3; Print Rx Signatures Electronically signed by : Iglesia Little M.D.; Nov 22 2012 12:58PM (Author) RN documented in this encounter Plan of Treatment Not on file documented as of this encounter Visit Diagnoses Not on filedocumented in this encounter Care Teams Bowling Teacher Relationship Specialty Start Date End Date Rose Marie Norton MACHINE DYER PCP - General 07/06/15 10/31/16 Rose Marie Norton MACHINE DYER PCP - General 03/02/15 07/05/15 Tam Trevino MD PCP - General 12/18/14 Iglesia Little MD [address] [place] [address] PCP - General 10/12/14 12/17/14 Iglesia Little MD [address] [place] [address] PCP - General 06/28/14 10/11/14 Iglesia Little MD [address] [place] [address] PCP - General 04/14/14 06/27/14 Iglesia Little MD [address] [place] [address] PCP - General 02/23/14 04/13/14 Iglesia Little MD [address] [place] [address] PCP - General 02/07/14 02/22/14 Iglesia Little MD [address] [place] [address] PCP - General 10/09/13 02/06/14 , Generic Conversion, PCP - General 10/06/13 , Generic Conversion, PCP - General 09/17/1310/05 , Generic Conversion, PCP - General 07/06/1309/16 , Generic Conversion, PCP - General 06/20/13 Iglesia Little MD [address] [place] [address] PCP - General 04/04/13 06/19/13 Iglesia Little MD [address] [place] [address] PCP - General 01/31/13 04/03/13 Iglesia Little MD [address] [place] [address] PCP - General 01/18/13 01/30/13 Iglesia Little MD [address] [place] [address] PCP - General 12/17/11 01/17/13 documented as of this encounter
--- OUTSIDE RECORDS SUMMARY | 2024-11-04 23:04 | XMS_ITS | Encounter Summary ---
Author Organization [facility] Address [address] [place] [address]. [place] [address] [place] [address] Care Team Providers Care Cloth Burler Name Role Phone Rose Marie Norton CAFETERIA DIRECTOR Primary Care Provider + Rose Marie Norton NP Primary Care Provider + , Generic Conversion MD Primary Care Provider Unavailable Iglesia Little MD Primary Care Provider + Iglesia Little MD Primary Care Provider + Encounter Details Date Type Department Care Team (Late st Contact Info) Description 08/06/2014 Abstract [facility] Family Medicine - [address], [address] [place] [address] Rose Marie Norton, CAFETERIA DIRECTOR [address] [place] [address] Social History Tobacco Use Types Packs/Day Years Used Date Smoking Tobacco: Never Assessed Comments Unknown Sex and Gender Information Value Date Recorded Sex Assigned at Not on file Legal Sex Female 6:50 PM CDT Gender Identity Not on file Sexual Orientation Not on file documented as of this encounter Last Filed Vital Signs Vital Sign Reading Time Taken Comments Blood Pressure 106/70 08/06/2014 12:58 PM CDT Pulse 77 08/06/2014 12:58 PM CDT Temperature - - Respiratory Rate - - Oxygen Saturation - - Inhaled Oxygen Concentration - - Weight 115.2 kg (254 lb) 08/06/2014 12:58 PM CDT Height - - Body Mass Index 44.99 07/16/2014 10:58 AM CDT documented in this encounter Progress Notes * Rose Marie Norton, CAFETERIA DIRECTOR - 08/06/2014 1:00 PM CDT Reason For Visit Reason For Visit: Acute Visit Chief Complaint 1. Sore Throat Sore throat since yesterday. Daughter was diagnosed with strep. History of Present Illness Daughter diagnosed with strep yesterday. Patient now with ST and concerned for strep. No other symptoms. Maria Del Carmen Ray presents with complaints of sore throat. Associated symptoms include nasal congestion and fatigue, but no fever, no chills, no headache, no nausea, no vomiting, no rash and no anorexia. Active Problems 1. Acute bronchitis (466.0) (J20.9) 2. Acute sinusitis (461.9) (J01.90) 3. Back pain (724.5) (M54.9) 4. Cough (786.2) (R05) 5. Esophageal reflux (530.81) (K21.9) 6. Foot pain (729.5) (M79.673) 7. Hypertension (401.9) (I10) 8. Knee pain, right (719.46) (M25.561) 9. Scabies (133.0) (B86) Past Medical History 1. History of Cough [...] ?? Never Used Drugs Current Meds 1. Naproxen 500 MG Oral Tablet; TAKE 1 TABLET EVERY 12 HOURS NEEDED; Therapy: [id number] to (Evaluate:[id number]); Last Rx:[id number] Ordered Rx By: Iglesia Little; Dispense: 15 Days ; #:30 Tablet; Refill: 0; For: Knee pain, right; YASSINE = N; Print Rx; Last Updated By: Rose Marie Norton; 12/10/2013 4:01:33 PM 2. Omeprazole 40 MG Oral Capsule Delayed Release; [...] [Data Includes: Current Encounter] Recorded by : Lori Beltran at 06Aug2014 12:58PM Temperature 98.4 F Heart Rate 77 Systolic 106 Diastolic 70 O2 Saturation 98 Weight 254 lb BMI Calculated 44.99 BSA Calculated 2.14 Physical Exam Constitutional General [...] Psychiatric Mood and affect: Normal. Assessment 1. Strep pharyngitis (034.0) (J02.0) Plan Strep pharyngitis 1. Start: Cephalexin 500 MG Oral Capsule; TAKE 1 CAPSULE Twice daily FOR 10 DAYS Rx By: Rose Marie Norton; Dispense: 0 Days ; #:20 Capsule; Refill: 0; For: Strep pharyngitis; YASSINE = N; PrintRx 2. Drink plenty of fluids. Status: Complete Done: 06Aug2014 Ordered; For: Strep pharyngitis; Ordered By: Rose Marie Norton 3. Good hand washing is one of the best ways to control the spread of germs. Status: Complete Done: [id number] Ordered; For: Strep pharyngitis; Ordered By: Rose Marie Norton 4. Take steps to prevent passing germs to others. Status: Complete Done: [id number] Ordered; For: Strep pharyngitis; Ordered By: Rose Marie Norton Discussion/Summary Print RX, fill if symptoms become worse. Discussed typical strep symptoms. Signatures Electronically signed by : Rose Marie Norton NP; Aug 06 2014 1:28PM EMPLOYEE'S REPRESENTATIVE (Author) documented in this encounter Plan of Treatment Not on file documented as of this encounter Visit Diagnoses Not on filedocumented in this encounter Care Teams Cloth Burler Relationship Specialty Start Date End Date Rose Marie Norton NP PCP - General 07/06/15 10/31/16 Rose Marie Norton NP PCP - General 03/02/15 07/05/15 Tam Gilbert MD PCP - General 12/18/14 Iglesia Little MD [address] [id number]- PCP - General 10/12/14 12/17/14 Iglesia Little MD [address] [id number]- PCP - General 06/28/14 10/11/14 documented as of this encounter
--- OUTSIDE RECORDS SUMMARY | 2024-11-04 23:04 | XMS_ITS | Encounter Summary ---
Author Organization [facility] Address [address] [place] [address]. [place] [address] [place] [address] Care Team Providers Care Malt Liquors Sales Representative Name Role Phone Rose Marie Norton TELEVISION CAMERAMAN Primary Care Provider + Rose Marie Norton TELEVISION CAMERAMAN Primary Care Provider + Md Generic Madison [...] Care Team (Late st Contact Info) Description 04/03/2013 Abstract [facility] Family Medicine - [place] [address], [address] [place] [address] Iglesia Little MD [address] [place] [address] [address] [place] [address] Social History Tobacco Use Types Packs/Day Years Used Date Smoking Tobacco: Never Assessed Comments Unknown Sex and Gender Information Value Date Recorded Sex Assigned at Not on file Legal Sex Female 6:50 PM CDT Gender Identity Not on file Sexual Orientation Not on file documented as of this encounter Last Filed Vital Signs Vital Sign Reading Time Taken Comments Blood Pressure 126/86 04/03/2013 9:17 AM CDT Pulse 71 04/03/2013 9:17 AM CDT Temperature - - Respiratory Rate - - Oxygen Saturation - - Inhaled Oxygen Concentration - - Weight 111.1 kg (245 lb) 04/03/2013 9:17 AM CDT Height - - Body Mass Index 43.4 06/06/2012 10:28 AM CDT documented in this encounter Progress Notes * Iglesia Little MD - 04/03/2013 9:00 AM CDT Reason For Visit Reason For Visit: Consultation Visit Chief Complaint 1. Pain Chief Complaint Free Text: 37 yo AAF wirh worm sensation left feet past 2 weeks. no pain. skin is not worm. no change in color. gait and floor feeling is OK. no falling episodes. feels that it goes to sleep after sitting for awhile. likely heats up more at night. Numbness in hands and feet Review of Systems Focused-Female: Constitutional: no fever, no chills and no headache. ENT: no earache and no hearing loss. Active Problems 1. Esophageal Reflux 530.81 2. Hypertension 401.9 Social History ?? Current Some Day Smoker 305.1 ?? Never Drank Alcohol ?? Never Used Drugs Current Meds 1. Lisinopril-Hydrochlorothiazide 10-12.5 MG Oral Tablet; TAKE 1 TABLET DAILY; Therapy: (Recorded:[id number]) to Recorded; For: Hypertension (401.9); Dispense: 90 Days ; #:90 Tablet; Refill: 0; Record; Last Updated By: Lori Beltran 2. Omeprazole 40 MG Oral Capsule Delayed Release; TK 1 C PO D; Therapy: 22Nov2012 to (Evaluate:17Nov2013); Last Rx:22Nov2012 Ordered; For: Esophageal Reflux (530.81); Rx By: Iglesia Little; Dispense: 90 Days ; #:1 X 90 EA Bottle; Refill: 3; Print Rx Allergies 1. No Known Drug Allergies No Known Drug Allergies Vitals Vital Signs [Data Includes: Current Encounter] 03Apr2013 09:17AM Heart Rate 71 Systolic 126 Diastolic 86 O2 Saturation 97 BMI Calculated 43.41 BSA Calculated 2.11 Weight 245 lb Physical Exam Constitutional General appearance: No [...] S1 and S2, without murmurs. Assessment 1. Hypertension 401.9 2. Esophageal Reflux 530.81 3. Health Maintenance V70.0 4. Foot Pain (Soft Tissue) 729.5 Plan 1. CBC W Differential Requested for: 03Apr2013 Ordered; For: Foot Pain (Soft Tissue) (729.5); Ordered By: Iglesia Little Perform: [facility] Due: 10Apr2013 2. Compr Metabolic Prof ( CMP ) Requested for: 03Apr2013 Ordered; For: Foot Pain (Soft Tissue) (729.5); Ordered By: Iglesia Little Perform: [facility] Due: 10Apr2013 3. Free T4 ( Thyroxine ) Requested for: 03Apr2013 Ordered; For: Foot Pain (Soft Tissue) (729.5); Ordered By: Iglesia Little Perform: [facility] Due: 10Apr2013 4. Lipid Profile Requested for: 03Apr2013 Ordered; For: Foot Pain (Soft Tissue) (729.5); Ordered By: Iglesia Little Perform: [facility] Due: 10Apr2013 5. Magnesium ( Mg ) Requested for: 03Apr2013 Ordered; For: Foot Pain (Soft Tissue) (729.5); Ordered By: Iglesia Little Perform: [facility] Due: 10Apr2013 6. Thyroid Stim Hormone ( TSH ) Requested for: [id number] Ordered; For: Foot Pain (Soft Tissue) (729.5); Ordered By: Iglesia Little Perform: [facility] Due: 10Apr2013 7. Total Triiodothyronine ( T3 ) Requested for: [id number] Ordered; For: Foot Pain (Soft Tissue) (729.5); Ordered By: Iglesia Little Perform: [facility] Due: 10Apr2013 8. Urinalysis ( UA ) Requested for: [id number] Ordered; For: Foot Pain (Soft Tissue) (729.5); Ordered By: Iglesia Little Perform: [facility] Due: 10Apr2013 9. Vitamin B12 And Folate Requested for: [id number] Ordered; For: Foot Pain (Soft Tissue) (729.5); Ordered By: Iglesia Little Perform: [facility] Due: 10Apr2013 10. Vitamin D 1, 25 - Dihydroxy Requested for: [id number] Ordered; For: Foot Pain (Soft Tissue) (729.5); Ordered By: Iglesia Little Perform: [facility] Due: 10Apr2013 Signatures Electronically signed by : Iglesia Little M.D.; Apr 03 2013 9:28AM (Author) [employer] documented in this encounter Plan of Treatment Not on file documented as of this encounter Procedures Procedure Name Priority Date/Time Associated Diagnosis Comments VITAMIN B12 / FOLATE Routine 04/04/2013 9:30 AM CDT URINALYSIS Routine 04/04/2013 9:30 AM CDT TRIIODOTHYRONINE TOTAL , TT-3 Routine 04/04/2013 9:30 AM CDT COMPREHENSIVE METABOLIC PANEL Routine 04/04/2013 9:30 AM CDT LIPID PANEL Routine 04/04/2013 9:30 AM CDT CBC W/DIFF AUTOMATED Routine 04/04/2013 9:30 AM CDT THYROXINE, FREE (FT4) Routine 04/04/2013 9:30 AM CDT THYROID STIM HORMONE TSH Routine 013 9:30 AM CDT MAGNESIUM Routine 04/04/2013 9:30 AM CDT documented in this encounter Results * THYROXINE, FREE (FT4) (04/04/2013 9:30 AM CDT) FREE T4 0.99 0.93 - 1.70 ng/dL [facility] TO [facility] CONVERSION 04/04/2013 9:30 AM CDT 04/04/2013 9:30 AM CDT Narrative [facility] TO [facility] CONVERSION - 04/04/2013 3:34 PM CDT Result Communication: No patient communication needed at this time Iglesia Little MD LABORATORY Final Result [facility] TO [facility] CONVERSION * (ABNORMAL) COMPREHENSIVE METABOLIC PANEL (04/04/2013 9:30 AM CDT) SODIUM S/P/B 138 136 - 145 mmol/L [facility] TO [facility] CONVERSION POTASSIUM S/P/B 4.3 3.5 - 5.1 mmol/L [facility] TO [facility] CONVERSION CHLORIDE S/P/B 102 98 - 107 mmol/L [facility] TO [facility] CONVERSION CO2 25 22 - 29 mmol/L [facility] TO [facility] CONVERSION ANION GAP 15 8 - 20 [facility] T O EPIC CONVERSION BUN 15 8 - 23 mg/dL [facility] TO [facility]IC CONVERSION CREATININE S/P/B 0.76 0.60 - 1.10 mg/dL [facility] TO [facility]IC CONVERSION GFR ESTIMATE >60 eGFR NOTE: ??If patient is -[place] n, multiply reported result by 1.21. eGFR is not calculated for patients <18 years of age. ??This is an estimated GFR and should not be used for calculating drug doses. >60 mL/min/1 .73m'2 [facility] TO [facility]IC CONVERSION GLUCOSE 86 70 - 99 mg/dL [facility] TO [facility] CONVERSION CALCIUM S/P/B 8.8 8.6 - 10.2 mg/dL [facility] TO [facility] CONVERSION BILIRUBIN TOTAL S/P/B 0.3 0.2 - 1.2 mg/dL [facility] CONVERSION AST 16 0 - 32 IU/L [facility] CONVERSION ALT 16 0 - 33 IU/L [facility] CONVERSION ALKALINE PHOSPHATASE S/P/B 65 35 - 104 IU/L [facility] TO [facility] CONVERSION TOTAL PROTEIN S/P/B 6.3(L) 6.4 - 8.3 g/dL [facility] TO [facility] CONVERSION ALBUMIN S/P/B 3.9 3.5 - 5.2 g/dL [facility] TO [facility] CONVERSION GLOBULIN 2.4 2.3 - 3.6 g/dL [facility] TO [facility] CONVERSION A/G RATIO 1.6 1.0 - 2.0 [facility] CONVERSION 04/04/2013 9:30 AM CDT 04/04/2013 9:30 AM CDT Narrative [facility] CONVERSION - 04/04/2013 3:34 PM CDT Result Communication: No patient communication needed at this time us Iglesia Little MD LABORATORY Final Result [facility] TO [facility] CONVERSION * TRIIODOTHYRONINE TOTAL , TT-3 (04/04/2013 9:30 AM CDT) Pathologist [facility] T3 TOTAL 96 60 - 181 ng/dL [facility] TO [facility] CONVERSION Comment: Result Comment: TESTING PERFORMED AT [facility], A MEMBER OF THE [facility]. 04/04/2013 9:30 AM CDT 04/04/2013 9:30 AM CDT Narrative [facility] TO [facility] CONVERSION - 04/04/2013 3:35 PM CDT Result Communication: No patient communication needed at this time us Iglesia Little MD LABORATORY Final Result [facility] TO [facility] CONVERSION * VITAMIN B12 / FOLATE (04/04/2013 9:30 AM CDT) Pathologist [facility] VITAMIN B12 S/P/B 782 211 - 946 pg/mL [facility] TO [facility] CONVERSION FOLATE 11.2 7.3 - 26.1 ng/mL [facility] CONVERSION 04/04/2013 9:30 AM CDT 04/04/2013 9:30 AM CDT Narrative [facility] TO [facility] CONVERSION - 04/04/2013 3:33 PM CDT Result Communication: No patient communication needed at this time Iglesia Little MD LABORATORY Final Result Performing Organization Address City/[facility]/ZIP Co de Phone Number [facility] TO EPIC CONVERSION * MAGNESIUM (04/04/2013 9:30 AM CDT) Pathologist [facility] MAGNESIUM 1.8 1.70 - 2.55 mg/dL [facility] TO [facility] CONVERSION 04/04/2013 9:30 AM CDT 04/04/2013 9:30 AM CDT Narrative [facility] TO [facility] CONVERSION - 04/04/2013 3:34 PM CDT Result Communication: No patient communication needed at this time Iglesia Little MD LABORATORY Final Result Performing Organization Address City/[facility]/ZIP Co de Phone Number [facility] TO [facility] CONVERSION * URINALYSIS (04/04/2013 9:30 AM CDT) SPECIMEN TYPE VOIDED URINE [facility] CONVERSION COLOR (U) YELLOW [facility] T O EPIC CONVERSION TRANSPARENCY CLOUDY [facility] P TO EPIC CONVERSION U PH 6.0 5.0 - 9.0 [facility] T O EPIC CONVERSION SPECIFIC GRAVITY (U) 1.020 1.001 - 1.03 [facility] CONVERSION PROTEIN (U) 10 <30 MG/DL [facility] CONVERSION GLUCOSE NEG NEG MG/DL [facility] T O EPIC CONVERSION KETONES MG/DL (U) NEG NEG MG/DL [facility] CONVERSION BLOOD (U) NEG NEG [facility] T [facility] EPIC CONVERSION NITRITES NEG NEG [facility] T O EPIC CONVERSION BILIRUBIN (U) NEG NEG MG/DL [facility] UP TO EPIC CONVERSION UROBILINOGEN NEG NEG MG/DL [facility] P TO EPIC CONVERSION LEUKOCYTES (U) NEG NEG [facility] OUP TO EPIC CONVERSION 04/04/2013 9:30 AM CDT 04/04/2013 9:30 AM CDT Narrative [facility] TO [facility] CONVERSION - 04/04/2013 3:39 PM CDT Result Communication: No patient communication needed at this time us Iglesia Little MD URINE ORDERABLES Final Result [facility] TO [facility] CONVERSION * (ABNORMAL) CBC W/DIFF AUTOMATED (04/04/2013 9:30 AM CDT) WBC 8.1 4.8 - 10.8 X10'3/uL [facility] CONVERSION RBC 4.53 4.20 - 5.40 X10'6/uL [facility] TO [facility]IC CONVERSION HGB 13.1 12.0 - 16.0 g/dL [facility] TO [facility]IC CONVERSION HCT 40.1 37.0 - 47.0 % [facility] TO [facility]IC CONVERSION MCV 88.5 81.0 - 99.0 fL [facility] TO [facility]IC CONVERSION MCH 28.9 27.0 - 31.0 pg [facility] TO [facility]IC CONVERSION MCHC 32.7 32.0 - 36.0 g/dL [facility] TO EPIC CONVERSION RDW 14.9(H) 11.5 - 14.5 % [facility] TO [facility] CONVERSION PLT 242 130 - 400 X10'3/uL [facility] TO [facility]IC CONVERSION GLUCOSE 8.9 7.0 - 10.4 fL [facility] TO [facility]IC CONVERSION BASOPHILS % 1.0 0.0 - 1.0 % [facility] TO [facility]IC CONVERSION EOSINOPHILS % 2.7 1.0 - 3.0 % [facility] TO EPIC CONVERSION NEUTROPHILS % 54.1 43.0 - 65.0 % [facility] TO [facility]IC CONVERSION LYMPHOCYTES % 38.7 20.0 - 46.0 % [facility] TO [facility]IC CONVERSION MONOCYTES % 3.5(L) 5.0 - 12.0 % [facility] TO [facility]IC CONVERSION RBC MORPHOLOGY 1+Anisocytosi s [facility] TO [facility]IC CONVERSION DIFFERENTIAL TYPE AUTOMATED [facility] CONVERSION 04/04/2013 9:30 AM CDT 04/04/2013 9:30 AM CDT Narrative [facility] TO EPIC CONVERSION - 04/04/2013 3:34 PM CDT Result Communication: No patient communication needed at this time Iglesia Little MD LABORATORY Final Result Performing Organization Address [facility] Co de Phone Number [facility] TO EPIC CONVERSION * THYROID STIM HORMONE, TSH (04/04/2013 9:30 AM CDT) TSH 2.00 0.27 - 4.20 mIU/mL [facility] TO [facility]IC CONVERSION 04/04/2013 9:30 AM CDT 04/04/2013 9:30 AM CDT Narrative [facility] TO [facility] CONVERSION - 04/04/2013 3:34 PM CDT Result Communication: No patient communication needed at this time Iglesia Little MD LABORATORY Final Result Performing Organization Address [facility] de Phone Number [facility] TO EPIC CONVERSION * (ABNORMAL) LIPID PANEL (04/04/2013 9:30 AM CDT) CHOLESTEROL 188 <200 mg/dL [facility] TO [facility]IC CONVERSION TRIGLYCERIDES 66 <150 mg/dL [facility] TO [facility] CONVERSION HDL 53(L) >59 mg/dL [facility] CONVERSION LDL (CALCULATED) 122(H) <100 mg/dL [facility] TO [facility] CONVERSION NON HDL CHOLESTEROL 135(H) <130 mg/dL [facility] CONVERSION Comment: Result Comment: NOTE: WHEN THE TRIGLYCERIDES ARE >200 mg/dL, NON HDL C IS A SECONDARY TARGET OF THERAPY, WITH A GOAL 30 mg/dL HIGHER THAN THE IDENTIFIED LDL C GOAL. CHOL/HDL RATIO 3.5 0.0 - 4.5 [facility] TO [facility]IC CONVERSION VLDL CHOLESTEROL (LMP) 13 5 - 55 mg/dL [facility] TO EPIC [...] ? >=160 ?>=130 [facility] TO [facility] CONVERSION 04/04/2013 9:30 AM CDT 04/04/2013 9:30 AM CDT Narrative [facility] TO [facility] CONVERSION - 04/04/2013 3:34 PM CDT Result Communication: No patient communication needed at this time us Iglesia Little MD LABORATORY Final Result [facility] TO [facility] CONVERSION documented in this encounter Visit Diagnoses Not on filedocumented in this encounter Care Teams Malt Liquors Sales Representative Relationship Specialty Start Date End Date Rose Marie Norton, TELEVISION CAMERAMAN PCP - General 07/06/15 10/31/16 Rose Marie Norton, TELEVISION CAMERAMAN PCP - General 03/02/15 07/05/15 Tam Trevino MD PCP - General 12/18/14 Iglesia Little MD [address] [place] [address] PCP - General 10/12/14 12/17/14 Iglesia Little MD [address] [place] [address] PCP - General 06/28/14 10/11/14 Iglesia Little MD [address] [place] [address] PCP - General 04/14/14 06/27/14 Iglesia Little MD [address] [place] [address] PCP - General 02/23/14 04/13/14 Iglesia Little MD [address] [place] [address] PCP - General 02/07/14 02/22/14 Iglesia Little MD [address] [place] [address] PCP - General 10/09/13 02/06/14 , Generic Conversion, MD PCP - General 10/06/13 , Generic Conversion, MD PCP - General 09/17/1310/05 , Generic Conversion, MD PCP - General 07/06/1309/16 , Generic Conversion, PCP - General 06/20/13 Iglesia Little MD [address] [address] PCP - General 04/04/13 06/19/13 Iglesia Little MD [address], [place] [id number] PCP - General 01/31/13 04/03/13 documented as of this encounter
--- OUTSIDE RECORDS SUMMARY | 2024-11-04 23:04 | XMS_ITS | Encounter Summary ---
Author Organization [facility] Address [address] [place] [address]. [place], [place] [id number] [place] [address] Care Team Providers Care Motor Mechanic Name Role Phone Rose Marie Norton MAINTENANCE SHOP CLERK Primary Care Provider [phone] Rose Marie Norton MAINTENANCE SHOP CLERK Primary Care Provider [phone] Encounter Details Date Type Department Care Team (Latest Contact Info) Description 07/04/2015 Abstract [facility] Social History Tobacco [...] on filedocumented in this encounter Care Teams Motor Mechanic Relationship Specialty Start Date End Date Rose Marie Norton, MAINTENANCE SHOP CLERK PCP - General 07/06/15 10/31/16 Rose Marie Norton MAINTENANCE SHOP CLERK PCP - General 03/02/15 07/05/15 documented as of this encounter
--- OUTSIDE RECORDS SUMMARY | 2024-11-04 23:04 | XMS_ITS | Encounter Summary ---
Author Organization [facility] Address [address] [place] [address]. [place], [place] [address] [place] [address] Care Team Providers Care Project Assistant Name Role Phone Rose Marie Norton INSEAM TRIMMER Primary Care Provider + Rose Marie Norton INSEAM TRIMMER Primary Care Provider + Md Generic Conversion Primary Care Provider Unavailable Iglesia Little MD Primary Care Provider + Iglesia Little MD Primary Care Provider + Iglesia Little MD Primary Care Provider + Iglesia Little MD Primary Care Provider + Iglesia Little MD Primary Care Provider + Iglesia Little MD Primary Care Provider + Md Generic Conversion Primary Care Provider Unavailable Md Generic Conversion Primary Care Provider Unavailable Encounter Details Date Type Department Care Team (Late st Contact Info) Description 09/17/2013 Abstract [facility] [address] [facility] [address] [place], [place] [id number] Camila Manzanares, SEARCH MARKETING SPECIALIST [address] [facility] [address] [place], [place] [address] Social History Tobacco Use Types Packs/Day Years Used Date Smoking Tobacco: Never Assessed Comments Unknown Sex and Gender Information Value Date Recorded Sex Assigned at Not on file Legal Sex Female 6:50 PM CDT Gender Identity Not on file Sexual Orientation Not on file documented as of this encounter Plan of Treatment Not on file documented as of this encounter Visit Diagnoses Diagnosis Onychia and paronychia of finger documented in this encounter Care Teams Project Assistant Relationship Specialty Start Date End Date Rose Marie Norton INSEAM TRIMMER PCP - General 07/06/15 10/31/16 Rose Marie Norton INSEAM TRIMMER PCP - General 03/02/15 07/05/15 Tam Gilbert MD PCP - General 12/18/14 Iglesia Little MD [address] [place] [address] PCP - General 10/12/14 12/17/14 Iglesia Little MD [address] [place] [address] PCP - General 06/28/14 10/11/14 Iglesia Little MD [address] [place] [address] PCP - General 04/14/14 06/27/14 Iglesia Little MD [address] [place] [address] PCP - General 02/23/14 04/13/14 Iglesia Little MD [address] [place] [address] PCP - General 02/07/14 02/22/14 Iglesia Little MD [address] [place] [address] PCP - General 10/09/13 02/06/14 , Generic Conversion, PCP - General 10/06/13 , Generic Conversion, PCP - General 09/17/1310/05 documented as of this encounter
--- OUTSIDE RECORDS SUMMARY | 2024-11-04 23:04 | XMS_ITS | Encounter Summary ---
Author Organization [facility] Address [address] [place] [address]. [place], [place] [address] [place] [address] Care Team Providers Care Industrial Machine Operator Name Role Phone Rose Marie Norton RELEASE OF INFORMATION CLERK Primary Care Provider + Rose Marie Norton RELEASE OF INFORMATION CLERK Primary Care Provider + Md Generic Madison [...] Generic Madison TREVINO Primary Care Provider Unavailable Encounter Details Date Type Department Care Team (Late st Contact Info) Description 06/20/[address] [facility] [address] [place], [place] [id number] Camila Manzanares, LOCOMOTIVE PIPE FITTER [address] [facility] [address] [place] [address] Social History Tobacco Use Types Packs/Day Years [...] Headache documented in this encounter Care Teams Industrial Machine Operator Relationship Specialty Start Date End Date Rose Marie Norton, RELEASE OF INFORMATION CLERK PCP - General 07/06/15 10/31/16 Rose Marie Norton, RELEASE OF INFORMATION CLERK PCP - General 03/02/15 07/05/15 Tam Trevino MD PCP - General 12/18/14 Iglesia Little MD [address] [place] [address] PCP - General 10/12/14 12/17/14 Iglesia Little MD [address] [place] [address] PCP - General 06/28/14 10/11/14 Iglesia Little MD [address] [place] [address] PCP - General 04/14/14 06/27/14 Iglesia Little MD [address] [place] [address] PCP - General 02/23/14 04/13/14 Iglesia Little MD [address] [place] [address] PCP - General 02/07/14 02/22/14 Iglesia Little MD [address] [place] [address] PCP - General 10/09/13 02/06/14 , Generic Conversion, PCP - General 10/06/13 , Generic Conversion, MD PCP - General 09/17/1310/05 , Generic Conversion, PCP - General 07/06/1309/16 , Generic Conversion, PCP - General 06/20/13 documented as of this encounter
--- OUTSIDE RECORDS SUMMARY | 2024-11-04 23:04 | XMS_ITS | Encounter Summary ---
Author Organization [facility] Address Formerly [facility]. [place], [place] [address] [place] [address] Care Team Providers Care Shank Stapler Name Role Phone Rose Marie Norton PREFABRICATED HOUSES TRIMMER Primary Care Provider + Rose Marie Norton PREFABRICATED HOUSES TRIMMER Primary Care Provider + Tam Trevino MD Primary Care Provider Unavailable Iglesia Little MD Primary Care Provider + Iglesia Little MD Primary Care Provider + Encounter Details Date Type Department Care Team (Latest Contact Info) Description 06/28/2014 Abstract [facility] Medical Group , Generic ConversionMD Social History Tobacco Use Types Packs/Day [...] Date/Time Associated Diagnosis Comments TSH W/REFLEX Routine 06/28/2014 9:20 AM CDT COMPREHENSIVE METABOLIC PANEL Routine 06/28/2014 9:20 AM CDT CBC, AUTO, NO DIFF Routine 06/28/2014 9: 20 AM CDT CK (CPK) Routine 06/28/2014 9:20 AM CDT documented in this encounter Results * (ABNORMAL) CK (CPK) (06/28/2014 9:20 AM CDT) CPK 222(H) 26 - 192 IU/L [facility] TO EPIC CONVERSION 06/28/2014 9:20 AM CDT 06/28/2014 9:20 AM CDT Narrative [facility] TO [facility] CONVERSION - 06/28/2014 4:45 PM CDT Result Communication: No patient communication needed at this time us Generic Conversion Md [facility] Final R esult [facility] TO EPIC CONVERSION * COMPREHENSIVE METABOLIC PANEL (06/28/2014 9:20 AM CDT) SODIUM S/P/B 136 136 - 145 mmol/L [facility] TO EPIC CONVERSION POTASSIUM S/P/B 4.4 3.5 - 5.1 mmol/L [facility] TO EPIC CONVERSION CHLORIDE S/P/B 101 98 - 107 mmol/L [facility] TO EPIC CONVERSION CO2 26 22 - 29 mmol/L [facility] TO EPIC CONVERSION ANION GAP 13 8 - 20 [facility] T O EPIC CONVERSION BUN 18 8 - 23 mg/dL [facility] TO EPIC CONVERSION CREATININE S/P/B 0.81 0.60 - 1.10 mg/dL [facility] TO EPIC CONVERSION GFR ESTIMATE >60 >60 mL/min/1 .73m'2 [facility] TO EPIC CONVERSION EGFR AFR. AMER. >60 NOTE: eGFR is not calculated for patients <18 years of age. This is an estimated GFR (CKD EPI) and should not be used for calculating drug doses. >60 mL/min/1 .73m'2 [facility] TO EPIC CONVERSION GLUCOSE 81 70 - 99 mg/dL [facility] TO [facility] CONVERSION CALCIUM S/P/B 9.5 8.6 - 10.2 mg/dL [facility] TO [facility]IC CONVERSION BILIRUBIN TOTAL S/P/B 0.4 0.2 - 1.2 mg/dL [facility] TO [facility] CONVERSION AST 17 0 - 32 IU/L [facility] TO [facility] CONVERSION ALT 21 0 - 33 IU/L [facility] TO [facility]IC CONVERSION ALKALINE PHOSPHATASE S/P/B 72 35 - 104 IU/L [facility] TO EPIC CONVERSION TOTAL PROTEIN S/P/B 7.0 6.4 - 8.3 g/dL [facility] TO [facility] CONVERSION ALBUMIN S/P/B 4.3 3.5 - 5.2 g/dL [facility] TO EPIC CONVERSION GLOBULIN 2.7 2.3 - 3.6 g/dL [facility] TO EPIC CONVERSION A/G RATIO 1.6 1.0 - 2.0 [facility] TO [facility]IC CONVERSION 06/28/2014 9:20 AM CDT 06/28/2014 9:20 AM CDT Narrative [facility] TO EPIC CONVERSION - 06/28/2014 4:45 PM CDT Result Communication: No patient communication needed at this time us Generic Conversion Md [facility] Final R esult [facility] TO EPIC CONVERSION * (ABNORMAL) CBC, AUTO, NO DIFF (06/28/2014 9:20 AM CDT) WBC 9.7 4.8 - 10.8 X10'3/uL [facility] TO [facility]IC CONVERSION RBC 4.72 4.20 - 5.40 X10'6/uL [facility] TO EPIC CONVERSION HGB 13.4 12.0 - 16.0 g/dL [facility] TO EPIC CONVERSION HCT 42.5 38.0 - 48.0 % [facility] TO [facility]IC CONVERSION MCV 90.0 81.0 - 99.0 fL [facility] TO EPIC CONVERSION MCH 28.4 27.0 - 31.0 pg [facility] TO EPIC CONVERSION MCHC 31.5(L) 32.0 - 36.0 g/dL [facility] TO EPIC CONVERSION RDW 13.2 11.5 - 14.5 % [facility] TO EPIC CONVERSION PLT 261 130 - 400 X10'3/uL [facility] TO EPIC CONVERSION GLUCOSE 11.4 9.3 - 12.2 fL [facility] TO EPIC CONVERSION 06/28/2014 9:20 AM CDT 06/28/2014 9:20 AM CDT Narrative [facility] TO EPIC CONVERSION - 06/28/2014 10:33 PM CDT Result Communication: No patient communication needed at this time us Generic Conversion Md [facility] Final R esult [facility] TO EPIC CONVERSION * TSH W/REFLEX (SNS) (06/28/2014 9:20 AM CDT) TSH 2.48 0.27 - 4.20 mIU/mL [facility] TO [facility]IC CONVERSION Comment:Result Comment: FREE T4 NOT INDICATED 06/28/2014 9:20 AM CDT 06/28/2014 9:20 AM CDT Narrative [facility] TO EPIC CONVERSION - 06/28/2014 4:45 PM CDT Result Communication: No patient communication needed at this time us Generic Conversion Md [facility] Final R esult [facility] CONVERSION documented in this encounter Visit Diagnoses Not on filedocumented in this encounter Care Teams Shank Stapler Relationship Specialty Start Date End Date Rose Marie Norton, PREFABRICATED HOUSES TRIMMER PCP - General 07/06/15 10/31/16 Rose Marie Norton PREFABRICATED HOUSES TRIMMER PCP - General 03/02/15 07/05/15 Tam Trevino MD PCP - General 12/18/14 Iglesia Little MD [address] [facility] [address] [place] [address] [phone] PCP - General 10/12/14 12/17/14 Iglesia Little MD [address] [facility] [address] [facility], [place] [address] 047- PCP - General 06/28/14 10/11/14 documented as of this encounter
--- OUTSIDE RECORDS SUMMARY | 2024-11-04 23:04 | XMS_ITS | Encounter Summary ---
Author Organization [facility] Address [address] [place] [address]. [place], [place] [address] [place] [address] Care Team Providers Care Statistics Tutor Name Role Phone Rose Marie Norton DELICATESSEN DEPARTMENT MANAGER Primary Care Provider + Rose Marie Norton DELICATESSEN DEPARTMENT MANAGER Primary Care Provider + Tam Gilbert MD [...] Department Care Team (Latest Contact Info) Description 12/18/2013 Abstract [facility] Medical Group [...] on filedocumented in this encounter Care Teams Statistics Tutor Relationship Specialty Start Date End Date Rose Marie Norton DELICATESSEN DEPARTMENT MANAGER PCP - General 07/06/15 10/31/16 Rose Marie Norton NP PCP - General 03/02/15 07/05/15 Tam Gilbert MD PCP - General 12/18/14 Iglesia Little MD [address] [place] [address] PCP - General 10/12/14 12/17/14 Iglesia Little MD [address] [place] [address] PCP - General 06/28/14 10/11/14 Iglesia Little MD [address] [place] [address] PCP - General 04/14/14 06/27/14 Iglesia Little MD [address] [place] [address] PCP - General 02/23/14 04/13/14 Iglesia Little MD [address] [place] [address] PCP - General 02/07/14 02/22/14 Iglesia Little MD [address] [place] [address] PCP - General 10/09/13 02/06/14 documented as of this encounter
--- OUTSIDE RECORDS SUMMARY | 2024-11-04 23:04 | XMS_ITS | Encounter Summary ---
Author Organization [facility] Address [address] [place] [address]. [place], [place] [address] [place] [address] Care Team Providers Care Trestle Mechanic Name Role Phone Rose Marie Norton RAILROAD CARMAN Primary Care Provider +3 Rose Marie Norton RAILROAD CARMAN Primary Care Provider +0 Tam Gilbert MD Primary Care Provider Unavailable Encounter Details Date Type Department Care Team (Late st Contact Info) Description 01/24/2015 Abstract [email or web address] Tam Wallace Md, MD Social History Tobacco Use Types Packs/Day [...] on filedocumented in this encounter Care Teams Trestle Mechanic Relationship Specialty Start Date End Date Rose Marie Norton RAILROAD CARMAN PCP - General 07/06/15 10/31/16 Rose Marie Norton RAILROAD CARMAN PCP - General 03/02/15 07/05/15 Tam Gilbert MD PCP - General 12/18/14 documented as of this encounter
--- OUTSIDE RECORDS SUMMARY | 2024-11-04 23:04 | XMS_ITS | Encounter Summary ---
Author Organization [facility] Address [address] [place] [address]. [place], [place] [address] [place] [address] Care Team Providers Care Medical Office Coordinator Name Role Phone Rose Marie Norton WORK OVER RIG OPERATOR Primary Care Provider + Rose Marie Norton WORK OVER RIG OPERATOR Primary Care Provider + Tam Gilbert MD Primary Care Provider Unavailable Ashly Little MD Primary Care Provider + Ashly Little MD Primary Care Provider + Ashly Little MD Primary Care Provider + Encounter Details Date Type Department Care Team (Latest Contact Info) Description 04/14/2014 Abstract [facility] Medical Group Tam Gilbert MD Social History Tobacco Use Types Packs/Day [...] Name Priority Date/Time Associated Diagnosis Comments XR THOR SPINE 3V Routine 04/14/2014 4:06 PM CDT documented in this encounter Results * XR THOR SPINE 3V (04/14/2014 4:06 PM CDT) Anatomical Region Laterality Modality Spine Radiographic Rosi ging 04/14/2014 4:06 PM CDT 04/14/2014 4:06 PM CDT Narrative 04/14/2014 6:52 PM CDT [facility] ORDERING MD: NEWTON BENDER ?? ACCT: [id number] ?? ADMIT/SERVICE DATE: 04/14/14 DISCHARGE DATE: 04/14/14 ?? : 1975 PT TYPE: DEP CLI ?? SEX: F ORD SITE: [facility] [place] [facility] ? STUDY DATE REPORT # PROCEDURE CODE PROCEDURE ?? 04/14/149267-8711 TSPN3V XR THORACIC SPINE 3 VIEWS ? EXTORDERID ? [id number] ? ACCESSION NUMBER ?? [id number] ?CHART DOCUMENT ? IMPRESSION: ? NO FRACTURE. ? HISTORY: ??LIFTING INJURY. ??MID BACK PAIN. ??UPPER BACK PAIN. ? THORACIC SPINE X-RAYS ? TECHNIQUE: ??AP, LATERAL AND SWIMMER'S VIEW. ? FINDINGS: ??NO COMPRESSION FRACTURE OR SUBLUXATION. ??DISC SPACES WELL ?? PRESERVED. ? ELECTRONICALLY SIGNED BY: ?? JESSICA LEW M.D. 04/14/2014 18:50 ?? JESSICA LEW M.D. ? D: ??04/14/2014 ??4:06 P ??#[id number] ?? T: ??04/14/2014 ??5:48 P/MA ? CC: ?ASHLY LITTLE M.D. ?NEWTON BENDER, RAE ? Procedure Note Tma Gilbert MD - 08/31/2018 [facility] ORDERING MD: NEWTON BENDER ACCT: [id number] ADMIT/SERVICE DATE: 04/14/14 DISCHARGE DATE: 04/14/14 : 1975 PT TYPE: DEP CLI SEX: F [facility] REPORT # PROCEDURE CODE PROCEDURE 04/14/14 1422-2833 TSPN3V XR THORACIC SPINE 3 VIEWS EXTORDERID [id number] ACCESSION NUMBER [id number] CHART DOCUMENT IMPRESSION: NO FRACTURE. HISTORY: LIFTING INJURY. MID BACK PAIN. UPPER BACK PAIN. THORACIC SPINE X-RAYS TECHNIQUE: AP, LATERAL AND SWIMMER'S VIEW. FINDINGS: NO COMPRESSION FRACTURE OR SUBLUXATION. DISC SPACES WELL PRESERVED. ELECTRONICALLY SIGNED BY: JESSICA LEW M.D. 04/14/2014 18:50 JESSICA LEW M.D. P #[id number] P/MA CC: Vy CEDENO, MSN us Tam Wallace Md, MD GENERAL IMAGING Final R esult documented in this encounter Visit Diagnoses Not on filedocumented in this encounter Care Teams Medical Office Coordinator Relationship Specialty Start Date End Date Rose Marie Norton, WORK OVER RIG OPERATOR PCP - General 07/06/15 10/31/16 Rose Marie Norton, WORK OVER RIG OPERATOR PCP - General 03/02/15 07/05/15 Tam Gilbert MD PCP - General 12/18/14 Ashly Little MD [address] [place] [address] PCP - General 10/12/14 12/17/14 Ashly Little MD [address] [place] [address] PCP - General 06/28/14 10/11/14 Ashly Little MD [address] [place] [address] PCP - General 04/14/14 06/27/14 documented as of this encounter
--- OUTSIDE RECORDS SUMMARY | 2024-11-04 23:04 | XMS_ITS | Encounter Summary ---
Author Organization [facility] Address [address] [place] [address]. [place], [place] [address] [place] [address] Care Team Providers Care Law Enforcement Officer Name Role Phone Rose Marie Norton CHECK VIEWER Primary Care Provider + Rose Marie Norton CHECK VIEWER Primary Care Provider + Md Generic [place] [...] Care Team (Late st Contact Info) Description 07/06/2013 Abstract [facility] [address] [facility] [place], [place] [phone] Camila Manzanares, BATHING SUIT MAKER [address] [facility] [address] [place] [address] Social History Tobacco Use Types Packs/Day Years [...] finger documented in this encounter Care Teams Law Enforcement Officer Relationship Specialty Start Date End Date Rose Marie Norton, CHECK VIEWER PCP - General 07/06/15 10/31/16 Rose Marie Norton, CHECK VIEWER PCP - General 03/02/15 07/05/15 Tam Trevino MD PCP - General 12/18/14 Iglesia Little MD [address] [place] [address] PCP - General 10/12/14 12/17/14 Ilgesia Little MD [address] [place] [address] PCP - General 06/28/14 10/11/14 Iglesia Little MD [address] [place] [address] PCP - General 04/14/14 06/27/14 Iglesia Little MD [address] [place] [address] PCP - General 02/23/14 04/13/14 Iglesia Little MD [address] [place] [address] PCP - General 02/07/14 02/22/14 Iglesia Little MD [address] [place] [address] PCP - General 10/09/13 02/06/14 , Generic Conversion, PCP - General 10/06/13 , Generic Conversion, PCP - General 09/17/1310/05 Md Generic Conversion, PCP - General 07/06/1309/16 documented as of this encounter
--- OUTSIDE RECORDS SUMMARY | 2024-11-04 23:04 | XMS_ITS | Encounter Summary ---
Author Organization [facility] Address [address] [place] [address]. [place], [place] [id number] [place] [address] Care Team Providers Care Report Writer Name Role Phone Rose Marie Norton COLD PRESS OPERATOR Primary Care Provider + Rose Marie Norton COLD PRESS OPERATOR Primary Care Provider + Md Generic [...] Care Team (Late st Contact Info) Description 02/23/[address] [facility] [address] [place], [place] [phone] Iglesia Little MD [address] [phone] Social History Tobacco Use Types Packs/Day Years Used Date Smoking Tobacco: Never Assessed Comments Unknown Sex and Gender Information Value Date Recorded Sex Assigned at Not on file Legal Sex Female 6:50 PM CDT Gender Identity Not on file Sexual Orientation Not on file documented as of this encounter Plan of Treatment Not on file documented as of this encounter Visit Diagnoses Diagnosis Encounter for other physical therapy documented in this encounter Care Teams Report Writer Relationship Specialty Start Date End Date Rose Marie Norton NP PCP - General 07/06/15 10/31/16 Rose Marie Norton NP PCP - General 03/02/15 07/05/15 Tam Trevino MD PCP - General 12/18/14 Iglesia Little MD [address] [address] PCP - General 10/12/14 12/17/14 Iglesia Little MD [address] [address] PCP - General 06/28/14 10/11/14 Iglesia Little MD [address] [place] [phone] PCP - General 04/14/14 06/27/14 Iglesia Little MD [address] [address] PCP - General 02/23/14 04/13/14 Iglesia Little MD [address] [place] [address] PCP - General 02/07/14 02/22/14 Iglesia Little MD [address] [place] [address] PCP - General 10/09/13 02/06/14 , Generic Conversion, PCP - General 10/06/13 , Generic Conversion, PCP - General 09/17/1310/05 , Generic Conversion, PCP - General 07/06/1309/16 , Generic Conversion, PCP - General 06/20/13 Iglesia Little MD [address] [place] [address] PCP - General 04/04/13 06/19/13 Iglesia Little MD [address] [place] [address] PCP - General 01/31/13 04/03/13 Iglesia Little MD [address] [place] [address] PCP - General 01/18/13 01/30/13 Iglesia Little MD [address] [place] [address] (Work) PCP - General 12/17/11 01/17/13 documented as of this encounter
--- OUTSIDE RECORDS SUMMARY | 2024-11-04 23:04 | XMS_ITS | Encounter Summary ---
Author Organization [facility] Address [address] [place] [address]. [place], [place] [address] [place] [address] Care Team Providers Care Black Powder Glazing Operator Name Role Phone Rose Marie Norton DIALS SUPERVISOR Primary Care Provider + Rose Marie Norton DIALS SUPERVISOR Primary Care Provider + Md Generic [place] [...] Care Team (Late st Contact Info) Description 12/17/[address] [facility] [place] [address] Nayely Garner MD [address] [facility] [address] [place] [address] Social History Tobacco Use Types [...] as of this encounter Visit Diagnoses Diagnosis Other injury of other sites of trunk documented in this encounter Care Teams Black Powder Glazing Operator Relationship Specialty Start Date End Date Rose Marie Norton NP PCP - General 07/06/15 10/31/16 Rose Marie Norton NP PCP - General 03/02/15 07/05/15 Tam Trevino MD PCP - General 12/18/14 Iglesia Little MD [address] [place] [phone] PCP - General 10/12/14 12/17/14 Iglesia Little MD [address] [place] [phone] PCP - General 06/28/14 10/11/14 Iglesia Little MD [address] [place] [address] [phone] PCP - General 04/14/14 06/27/14 Iglesia Little MD [address] [place] [address] PCP - General 02/23/14 04/13/14 Iglesia Little MD [address] [place] [address] PCP - General 02/07/14 02/22/14 Iglesia Little MD [address] [place] [address] PCP - General 10/09/13 02/06/14 , Generic Conversion, PCP - General 10/06/13 , Generic Conversion, PCP - General 09/17/1310/05 , Generic Conversion, PCP - General 07/06/1309/16 , Generic Conversion, PCP - General 06/20/13 Iglesia Little MD [address] [place] [address] PCP - General 04/04/13 06/19/13 Iglesia Little MD [address] [place] [address] PCP - General 01/31/13 04/03/13 Iglesia Little MD [address] [place] [address] PCP - General 01/18/13 01/30/13 Iglesia Little MD [address] [place] [address] (Work) PCP - General 12/17/11 01/17/13 documented as of this encounter
--- OUTSIDE RECORDS SUMMARY | 2024-11-04 23:04 | XMS_ITS | Encounter Summary ---
Author Organization [facility] Address [address] [place] [address]. [place], [place] [address] [place] [address] Care Team Providers Care Manufacturing Business Analyst Name Role Phone Rose Marie Norton TECHNICAL PHOTOGRAPHER Primary Care Provider + Rose Marie Norton TECHNICAL PHOTOGRAPHER Primary Care Provider + Tam Gilbert MD Primary Care Provider Unavailable Iglesia Little MD Primary Care Provider + Iglesia Little MD Primary Care Provider + Encounter Details Date Type Department Care Team (Latest Contact Info) Description 10/07/2014 Abstract [facility] Medical Group Rose Marie Norton, TECHNICAL PHOTOGRAPHER [address] [place] [address] Social History Tobacco Use Types Packs/Day Years [...] on filedocumented in this encounter Care Teams Manufacturing Business Analyst Relationship Specialty Start Date End Date Rose Marie Norton TECHNICAL PHOTOGRAPHER PCP - General 07/06/15 10/31/16 Rose Marie Norton TECHNICAL PHOTOGRAPHER PCP - General 03/02/15 07/05/15 , Tam Wallace, PCP - General 12/18/14 Iglesia Little MD [address] [phone] PCP - General 10/12/14 12/17/14 Iglesia Little MD [address] [phone] PCP - General 06/28/14 10/11/14 documented as of this encounter
--- OUTSIDE RECORDS SUMMARY | 2024-11-04 23:04 | XMS_ITS | Encounter Summary ---
Author Organization [facility] Address [facility] [place] [address] [place] [address] Care Team Providers Care Industrial Hire Sales Assistant Name Role Phone Unavailable Primary Care Provider Unavailabl e Encounter Details Date Type Department Care Team (Late st Contact Info) Description 11/01/[address] [facility] [place] [address] Jose Umaña MD [address] [place] [address] Social History Tobacco Use Types Packs/Day Years [...] Associated Diagnosis Comments COMPREHENSIVE METABOLIC PANEL Routine 11/01/2016 11:19 AM DIRECTOR OF SPORTS PERFORMANCE LIPID PANEL Routine 11/01/2016 11:19 AM DIRECTOR OF SPORTS PERFORMANCE THYROID STIM HORMONE TSH Routine 11/01/2016 11:19 AM DIRECTOR OF SPORTS PERFORMANCE CK (CPK) Routine 11/01/2016 11:19 AM DIRECTOR OF SPORTS PERFORMANCE documented in this encounter Results * THYROID STIM HORMONE, TSH (11/01/2016 11:19 AM DIRECTOR OF SPORTS PERFORMANCE) TSH 1.42 0.27 - 4.20 mIU/mL 11/01/2016 6:18 PM [facility] SERUM OR PLASMA SPECIMEN / Unknown 11/01/2016 11:19 AM DIRECTOR OF SPORTS PERFORMANCE 11/01/2016 12:28 PM DIRECTOR OF SPORTS PERFORMANCE us Generic Conversion Md [facility] Final R esult [facility] [address] [place] [address], * (ABNORMAL) LIPID PANEL (11/01/2016 11:19 AM DIRECTOR OF SPORTS PERFORMANCE) Pathologist [facility] CHOLESTEROL 172 <200 MG/DL 11/01/2016 6:18 PM [facility] Comment: NOTE: Acetaminophen, N Acetyl p benzoquinone imine (NAPQI), N acetylcysteine (NAC), Metamizole, 4 Aminoantipyrine (4 AAP) and 4 Methylamino antipyrine (4 MAP) at high concentrations can cause falsely low results on Lactate, Uric Acid, Cholesterol, Triglyceride, HDL, and Direct LDL. TRIGLYCERIDES 85 <150 MG/DL 11/01/2016 6:18 PM [facility] HDL 55(L) >59 MG/DL 11/01/2016 6:18 PM [facility] LDL (CALCULATED) 100(H) <100 MG/DL 11/01/2016 6:18 PM [facility] NON HDL CHOLESTEROL 117 <130 MG/DL 11/01/2016 6:18 PM [facility] Comment: NOTE: WHEN THE TRIGLYCERIDES ARE >200 mg/dL, NON HDL C IS A SECONDARY TARGET OF THERAPY, WITH A GOAL 30 mg/dL HIGHER THAN THE IDENTIFIED LDL C GOAL. CHOL/HDL RATIO 3.1 0.0 - 4.5 11/01/2016 6:18 PM [facility] VLDL CALCULATION 17 5 - 55 MG/DL 11/01/2016 6:18 PM DIRECTOR OF SPORTS PERFORMANCE [facility] LIPID INTERPRETATION 11/01/2016 6:18 PM DIRECTOR OF SPORTS PERFORMANCE [facility] Comment: NIH CONCENSUS REPORT RECOMMENDATIONS: ?ADULT ?CHILD ??LOW RISK: ?CHOLESTEROL ? <200 ? <170 ?TRIGLYCERIDE ?<150 ?--- ?HDL ? >=60 ?--- ?LDL ? <100 ? <110 ??BORDERLINE: ?CHOLESTEROL ? 200-239 ?? 170-199 ?TRIGLYCERIDE ?150-199 ? --- ?HDL ?40-59 ?--- ?LDL ? 100-159 ?? 110-129 ??HIGH RISK: ?CHOLESTEROL ? >=240 ?>=200 ?TRIGLYCERIDE ?>=200 ? --- ?HDL ?<40 ?--- ?LDL ? >=160 ?>=130 11/01/2016 11:1 9 AM DIRECTOR OF SPORTS PERFORMANCE 11/01/2016 12:28 PM DIRECTOR OF SPORTS PERFORMANCE us Generic Conversion Md MD LABORATORY Final R esult Performing Organization Address City/[facility]/ZIP Co de Phone Number [facility] [address] [place] [address], [place] [phone] * CK (CPK) (11/01/2016 11:19 AM DIRECTOR OF SPORTS PERFORMANCE) CPK 127 26 - 192 U/L 11/01/2016 6:18 PM DIRECTOR OF SPORTS PERFORMANCE [facility] SERUM OR PLASMA SPECIMEN / Unknown 11/01/2016 11:19 AM DIRECTOR OF SPORTS PERFORMANCE 11/01/2016 12:28 PM DIRECTOR OF SPORTS PERFORMANCE Generic Conversion Md [facility] Final R esult Performing Organization Address [facility] Co de Phone Number [facility] [address] [place] [address], [place] [phone] * (ABNORMAL) COMPREHENSIVE METABOLIC PANEL (11/01/2016 11:19 AM DIRECTOR OF SPORTS PERFORMANCE) GLUCOSE 81 70 - 99 mg/dL 11/01/2016 6:18 PM [facility] BUN 13 8 - 23 mg/dL 11/01/2016 6:18 PM [facility] CREATININE S/P/B 0.78 0.60 - 1.10 mg/dL 11/01/2016 6:18 PM [facility] SODIUM S/P/B 138 136 - 145 mmol/L 11/01/2016 6:18 PM [facility] POTASSIUM S/P/B 4.4 3.5 - 5.1 mmol/L 11/01/2016 6:18 PM [facility] CHLORIDE S/P/B 101 98 - 107 mmol/L 11/01/2016 6:18 PM [facility] CO2 25 22 - 29 mmol/L 11/01/2016 6:18 PM [facility] BILIRUBIN TOTAL S/P/B 0.3 0.2 - 1.2 mg/dL 11/01/2016 6:18 PM [facility] CALCIUM S/P/B 8.8 8.6 - 10.2 mg/dL 11/01/2016 6:18 PM [facility] ALKALINE PHOSPHATASE S/P/B 61 35 - 104 U/L 11/01/2016 6:18 PM [facility] AST 13 0 - 32 U/L 11/01/2016 6:18 PM [facility] TOTAL PROTEIN S/P/B 6.0(L) 6.4 - 8.3 g/dL 11/01/2016 6:18 PM [facility] ALBUMIN S/P/B 3.7 3.5 - 5.2 g/dL 11/01/2016 6:18 PM [facility] ALT 18 0 - 33 U/L 11/01/2016 6:18 PM [facility] GLOBULIN 2.3 2.3 - 3.6 g/dL 11/01/2016 6:18 PM [facility] A/G RATIO 1.6 1.0 - 2.0 11/01/2016 6:18 PM [facility] ANION GAP 16 8 - 20 11/01/2016 6:18 PM [facility] EGFR NON-AFR. AMER. >60 >60 mL/min/1.7 3m'2 11/01/2016 6:18 PM [facility] EGFR AFR. AMER. >60 >60 mL/min/1.7 3m'2 11/01/2016 6:18 PM [facility] Comment: NOTE: eGFR is not calculated for patients <18 years of age. This is an estimated GFR (CKD EPI) and should not be used for calculating drug doses. 11/01/2016 11:1 9 AM DIRECTOR OF SPORTS PERFORMANCE 11/01/2016 12:28 PM DIRECTOR OF SPORTS PERFORMANCE us Generic Conversion Md [facility] Final R esult Performing Organization Address City/State/[facility] Co de Phone Number [facility] [address] [place] [address], [place] [phone] documented in this encounter Visit Diagnoses Diagnosis Pure hypercholesterolemia documented in this encounter
--- OUTSIDE RECORDS SUMMARY | 2024-11-04 23:04 | XMS_ITS | Encounter Summary ---
Author Organization [facility] Address [address] [place] [address]. [place], [place] [address] [place] [address] Care Team Providers Care Sweeper Operator Highways Name Role Phone Rose Marie Norton CLEAT MAKER Primary Care Provider + Rose Marie Norton CLEAT MAKER Primary Care Provider + Tam Gilbert MD Primary Care Provider Unavailable Iglesia Little MD Primary Care Provider + Iglesia Little MD Primary Care Provider + Iglesia Little MD Primary Care Provider + Iglesia Little MD Primary Care Provider + Iglesia Little MD Primary Care Provider + Encounter Details Date Type Department Care Team (Latest Contact Info) Description 02/07/2014 Abstract [facility] Social History Tobacco Use [...] on filedocumented in this encounter Care Teams Sweeper Operator Highways Relationship Specialty Start Date End Date Rose Marie Norton NP PCP - General 07/06/15 10/31/16 Rose Marie Norton NP PCP - General 03/02/15 07/05/15 Tam Gilbert MD PCP - General 12/18/14 Iglesia Little MD [address] [place] [address] PCP - General 10/12/14 12/17/14 Iglesia Little MD [address] [place] [address] PCP - General 06/28/14 10/11/14 Iglesia Little MD [address] [place] [address] PCP - General 04/14/14 06/27/14 Iglesia Little MD [address] [place] [address] PCP - General 02/23/14 04/13/14 Iglesia Little MD [address] [place] [address] PCP - General 02/07/14 02/22/14 documented as of this encounter
--- OUTSIDE RECORDS SUMMARY | 2024-11-04 23:04 | XMS_ITS | Encounter Summary ---
Author Organization [facility] Address [address] [place] [address]. [place], [place] [address] [place] [address] Care Team Providers Care Winch Driver Name Role Phone Rose Marie Norton NATIONAL GUARD MEMBER Primary Care Provider [phone] Rose Marie Norton NATIONAL GUARD MEMBER Primary Care Provider + Tam Gilbert MD Primary Care Provider Unavailable Encounter Details Date Type Department Care Team (Late st Contact Info) Description 12/18/[address] [facility] [address] [place] [address] Sunshine Espino APNP Social History Tobacco Use Types Packs/Day Years Used Date Smoking Tobacco: Never Assessed Comments Unknown Sex and Gender Information Value Date Recorded Sex Assigned at Not on file Legal Sex Female 6:50 PM CDT Gender Identity Not on file Sexual Orientation Not on file documented as of this encounter Plan of Treatment Not on file documented as of this encounter Visit Diagnoses Diagnosis Pain in soft tissues of limb Pain in limb documented in this encounter Care Teams Winch Driver Relationship Specialty Start Date End Date Rose Marie Norton NP PCP - General 07/06/15 10/31/16 Rose Marie Norton NP PCP - General 03/02/15 07/05/15 Tam Gilbert MD PCP - General 12/18/14 documented as of this encounter
--- OUTSIDE RECORDS SUMMARY | 2024-11-04 23:04 | XMS_ITS | Encounter Summary ---
Author Organization [facility] Address [address] [place] [address]. [place], [place] [address] [place] [address] Care Team Providers Care City Distribution Clerk Name Role Phone Rose Marie Norton SENIOR PROJECT LEADER/TEAM LEAD Primary Care Provider + Rose Marie Norton SENIOR PROJECT LEADER/TEAM LEAD Primary Care Provider + , Generic Conversion [...] Care Team (Late st Contact Info) Description 10/09/2013 Abstract [facility] [address] [place], [place] [phone] Iglesia Little MD [address] [place] [phone] Social History Tobacco Use Types Packs/Day Years [...] this encounter Visit Diagnoses Diagnosis Pain in joint, lower leg documented in this encounter Care Teams City Distribution Clerk Relationship Specialty Start Date End Date Rose Marie Norton NP PCP - General 07/06/15 10/31/16 Rose Marie Norton SENIOR PROJECT LEADER/TEAM LEAD PCP - General 03/02/15 07/05/15 Tam Gilbert MD PCP - General 12/18/14 Iglesia Little MD [address] [place] [address] PCP - General 10/12/14 12/17/14 Iglesia Litlte MD [address] [place] [address] PCP - General 06/28/14 10/11/14 Iglesia Little MD [address] [place] [address] PCP - General 04/14/14 06/27/14 Iglesia Little MD [address] [place] [address] PCP - General 02/23/14 04/13/14 Iglesia Little MD [address] [place] [address] PCP - General 02/07/14 02/22/14 Iglesia Little MD [address] [address] PCP - General 10/09/13 02/06/14 documented as of this encounter
--- OUTSIDE RECORDS SUMMARY | 2024-11-04 23:04 | XMS_ITS | Encounter Summary ---
Author Organization [facility] Address [address] [place] [address]. [place], [place] [address] [place] [address] Care Team Providers Care Pharmacy Stock Clerk Name Role Phone Unavailable Primary Care Provider Unavailabl e Encounter Details Date Type Department Care Team (Latest Contact Info) Description 11/15/2016 Abstract [facility] Medical [facility] Social History Tobacco [...]
--- OUTSIDE RECORDS SUMMARY | 2024-11-04 23:04 | XMS_ITS | Encounter Summary ---
Author Organization [facility] Address [address] [place] [address]. [place], [place] [address] [place] [address] Care Team Providers Care Cd Storage And Materials Make Up Helper Name Role Phone Rose Marie Norton BEADER TENDER Primary Care Provider [phone] Encounter Details Date Type Department Care Team (Latest Contact Info) Description 02/24/2016 Abstract [facility] Medical Group Social History Tobacco [...] on filedocumented in this encounter Care Teams Cd Storage And Materials Make Up Helper Relationship Specialty Start Date End Date Rose Marie Norton, BEADER TENDER PCP - General 07/06/15 10/31/16 documented as of this encounter
--- OUTSIDE RECORDS SUMMARY | 2024-11-04 23:04 | XMS_ITS | Encounter Summary ---
Author Organization [facility] Address [address] [place] [address]. [place], [place] [address] [place] [address] Care Team Providers Care Retread Mold Operator Name Role Phone Rose Marie Norton HOSPICE PATIENT CARE SECRETARY Primary Care Provider + Rose Marie Norton HOSPICE PATIENT CARE SECRETARY Primary Care Provider + Tam Gilbert MD Primary Care Provider Unavailable Iglesia Little MD Primary Care Provider + Iglesia Little MD Primary Care Provider + Iglesia Little MD Primary Care Provider + Encounter Details Date Type Department Care Team (Latest Contact Info) Description 06/13/2014 Abstract [facility] Medical Group Social History Tobacco Use Types [...] on filedocumented in this encounter Care Teams Retread Mold Operator Relationship Specialty Start Date End Date Rose Marie Norton NP PCP - General 07/06/15 10/31/16 Rose Marie Norton HOSPICE PATIENT CARE SECRETARY PCP - General 03/02/15 07/05/15 Tam Gilbert MD PCP - General 12/18/14 Iglesia Little MD [address] [facility] [place] [address] PCP - General 10/12/14 12/17/14 Iglesia Little MD [address] [place] [phone] PCP - General 06/28/14 10/11/14 Iglesia Little MD [address] [facility], [place] [address] 103- PCP - General 04/14/14 06/27/14 documented as of this encounter
--- OUTSIDE RECORDS SUMMARY | 2024-11-04 23:04 | XMS_ITS | Encounter Summary ---
Author Organization [facility] Address [address] [place] [address]. [place], [place] [address] [place] [address] Care Team Providers Care Optical Scientist Name Role Phone Rose Marie Norton SCHOOL BASED THERAPIST Primary Care Provider + Rose Marie Norton SCHOOL BASED THERAPIST Primary Care Provider + Md Generic [place] [facility] Primary Care Provider Unavailable Iglesia Little MD Primary Care Provider + Iglesia Little MD Primary Care Provider + Iglesia Little MD Primary Care Provider + Encounter Details Date Type Department Care Team (Late st Contact Info) Description 04/14/[address] [address] [facility] [place] [address] Camila Manzanares, LANGUAGE PATH [address] [facility] [address] [place] [address] Social History Tobacco Use Types [...] as of this encounter Visit Diagnoses Diagnosis Low back pain Lumbago documented in this encounter Care Teams Optical Scientist Relationship Specialty Start Date End Date Rose Marie Norton SCHOOL BASED THERAPIST PCP - General 07/06/15 10/31/16 Rose Marie Norton NP PCP - General 03/02/15 07/05/15 Tam Trevino MD PCP - General 12/18/14 Iglesia Little MD [address] [facility] [place] [address] PCP - General 10/12/14 12/17/14 Iglesia Little MD [address] [place] [address] PCP - General 06/28/14 10/11/14 Iglesia Little MD [address] [facility] [place] [address] PCP - General 04/14/14 06/27/14 documented as of this encounter
--- OUTSIDE RECORDS SUMMARY | 2024-11-04 23:04 | XMS_ITS | Encounter Summary ---
Author Organization [facility] Address [address] [place] [address]. [place], [place] [address] [place] [address] Care Team Providers Care Counter Professional Name Role Phone Rose Marie Norton OUTSOLE ROUNDER Primary Care Provider + Rose Marie Norton OUTSOLE ROUNDER Primary Care Provider + Tam Gilbert MD Primary Care Provider Unavailable Iglesia Little MD Primary Care Provider + Iglesia Little MD Primary Care Provider + Iglesia Little MD Primary Care Provider + Encounter Details Date Type Department Care Team (Latest Contact Info) Description 04/16/2014 Abstract [facility] Medical Group Social History [...] on filedocumented in this encounter Care Teams Counter Professional Relationship Specialty Start Date End Date Rose Marie Norton NP PCP - General 07/06/15 10/31/16 Rose Marie Norton OUTSOLE ROUNDER PCP - General 03/02/15 07/05/15 Tam Gilbert MD PCP - General 12/18/14 Iglesia Little MD [address] [facility] [place] [place] [address] PCP - General 10/12/14 12/17/14 Iglesia Little MD [address] [place] [phone] PCP - General 06/28/14 10/11/14 Iglesia Little MD [address] [facility] [place] [address]- PCP - General 04/14/14 06/27/14 documented as of this encounter
--- OUTSIDE RECORDS SUMMARY | 2024-11-04 23:04 | XMS_ITS | Encounter Summary ---
Author Organization [facility] Address [address] [place] [address]. [place], [place] [address] [place] [address] Care Team Providers Care Vice President Quality Name Role Phone Rose Marie Norton ROTOGRAVURE PRESS OPERATOR Primary Care Provider + Rose Marie Norton ROTOGRAVURE PRESS OPERATOR Primary Care Provider + , Generic Conversion MD Primary Care Provider Unavailable Iglesia Little MD Primary Care Provider + Iglesia Little MD Primary Care Provider + Encounter Details Date Type Department Care Team (Late st Contact Info) Description 06/28/2014 Abstract [facility] [address] Jeff Orozco MD [address] [facility] [address] [address] Social History Tobacco Use Types Packs/Day Years Used Date Smoking Tobacco: Never Assessed Comments Unknown Sex and Gender Information Value Date Recorded Sex Assigned at Not on file Legal Sex Female 6:50 PM CDT Gender Identity Not on file Sexual Orientation Not on file documented as of this encounter Plan of Treatment Not on file documented as of this encounter Visit Diagnoses Diagnosis Shortness of breath documented in this encounter Care Teams Vice President Quality Relationship Specialty Start Date End Date Rose Marie Norton, ROTOGRAVURE PRESS OPERATOR PCP - General 07/06/15 10/31/16 Rose Marie Norton NP PCP - General 03/02/15 07/05/15 Tam Gilbert MD PCP - General 12/18/14 Iglesia Little MD [address], [place] [phone]- PCP - General 10/12/14 12/17/14 Iglesia Little MD [address] [facility] [address] [place], [place] [address] 130- PCP - General 06/28/14 10/11/14 documented as of this encounter
--- OUTSIDE RECORDS SUMMARY | 2024-11-04 23:04 | XMS_ITS | Encounter Summary ---
Author Organization [facility] Address [address] [place] [address]. [place], [place] [address] [place] [address] Care Team Providers Care Spa Attendant Name Role Phone Rose Marie Norton POSITION CLASSIFICATION SPECIALIST Primary Care Provider + Rose Marie Norton POSITION CLASSIFICATION SPECIALIST Primary Care Provider + , Generic Conversion MD Primary Care Provider Unavailable Iglesia Little MD Primary Care Provider + Iglesia Little MD Primary Care Provider + Iglesia Little MD Primary Care Provider + Iglesia Little MD Primary Care Provider + Iglesia Little MD Primary Care Provider + Encounter Details Date Type Department Care Team (Late st Contact Info) Description 02/07/[address] [address] [facility] [place], [place] [phone] Camila Manzanares, ROAD PATCHER [address] [facility] [address] [place], [place] [address] Social History Tobacco Use Types Packs/Day Years Used Date Smoking Tobacco: Never Assessed Comments Unknown Sex and Gender Information Value Date Recorded Sex Assigned at Not on file Legal Sex Female 6:50 PM CDT Gender Identity Not on file Sexual Orientation Not on file documented as of this encounter Plan of Treatment Not on file documented as of this encounter Visit Diagnoses Diagnosis Scabies documented in this encounter Care Teams Spa Attendant Relationship Specialty Start Date End Date Rose Marie Norton, POSITION CLASSIFICATION SPECIALIST PCP - General 07/06/15 10/31/16 Rose Marie Norton, POSITION CLASSIFICATION SPECIALIST PCP - General 03/02/15 07/05/15 Tam Gilbert MD PCP - General 12/18/14 Iglesia Little MD [address] [place] [address] PCP - General 10/12/14 12/17/14 Iglesia Little MD [address] [place] [address] PCP - General 06/28/14 10/11/14 Iglesia Little MD [address] [place] [address] PCP - General 04/14/14 06/27/14 Iglesia Little MD [address] [place] [address] PCP - General 02/23/14 04/13/14 Iglesia Little MD [address] [place] [address] PCP - General 02/07/14 02/22/14 documented as of this encounter
--- OUTSIDE RECORDS SUMMARY | 2024-11-04 23:04 | XMS_ITS | Encounter Summary ---
Author Organization [facility] Address [address] [place] [address]. [place], [place] [address] [place] [address] Care Team Providers Care Field Application Engineer Name Role Phone Rose Marie Norton PLASTICS ENGINEERING TEACHER Primary Care Provider + Rose Marie Norton PLASTICS ENGINEERING TEACHER Primary Care Provider + , Generic Conversion [...] Care Team (Late st Contact Info) Description 10/15/2013 Abstract [facility] Family Medicine - [place], [address] [place] [address] Iglesia Little MD [address] [place] [address] [address] [place] [address] Social History Tobacco Use Types Packs/Day Years Used Date Smoking Tobacco: Never Assessed Comments Unknown Sex and Gender Information Value Date Recorded Sex Assigned at Not on file Legal Sex Female 6:50 PM CDT Gender Identity Not on file Sexual Orientation Not on file documented as of this encounter Last Filed Vital Signs Vital Sign Reading Time Taken Comments Blood Pressure 140/82 10/15/2013 3:15 PM MINERAL ENGINEER Pulse 89 10/15/2013 3:15 PM MINERAL ENGINEER Temperature - - Respiratory Rate - - Oxygen Saturation - - Inhaled Oxygen Concentration - - Weight - - Height - - Body Mass Index - - documented in this encounter Progress Notes * Iglesia Little MD - 10/15/2013 3:00 PM CST Reason For Visit Consultation Visit Chief Complaint 1. 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 she feels better today yet still in pain. advised with activity modiofications and a home program non smoker no drug habit patient also c/o of nail discoloration left thumb and fungus infection Review of Systems Constitutional: no fever, no chills and no headache. ENT: no earache and no hearing loss. Cardiovascular: the heart rate was not slow and the heart rate was not fast. Respiratory: no shortness of breath and no wheezing. Gastrointestinal: no abdominal pain. Active Problems 1. Esophageal Reflux 530.81 2. Foot Pain (Soft Tissue) 729.5 3. Hypertension 401.9 4. Joint Pain In The Right Knee 719.46 Social History ?? Current Some Day Smoker 305.1 ?? Never Drank Alcohol ?? Never Used Drugs Current Meds 1. Lisinopril-Hydrochlorothiazide 10-12.5 MG Oral Tablet; TAKE 1 TABLET DAILY; Therapy: (Recorded:34Phb7881) to 2. Naproxen 500 MG Oral Tablet; TAKE 1 TABLET EVERY 12 HOURS NEEDED; Therapy: 19Rky0107 to (Evaluate:11Tqb1004); Last Rx:[id number] 3. Omeprazole 40 MG Oral Capsule Delayed Release; TK 1 C PO D; Therapy: 22Nov2012 to (Evaluate:17Nov2013); Last Rx:22Nov2012 Allergies 1. No Known Drug Allergies Vitals 67Tms6564 03:15PM Heart Rate 89 Systolic 140 Diastolic 82 O2 Saturation 98 Physical Exam Constitutional General appearance: No [...] and S2, without murmurs. Musculoskeletal Right knee tenderness, improved swelling. Neurologic Left thumb onychomycosis. Results/Data XR KNEE 3 VIEW RT [id number] 11:49AM Iglesia Little Test Name Result Flag Reference TAMMY CERVANTES ORDERING MD: IGLESIA LITTLE MD ACCT: [id number] : 1975 PT TYPE: REG CLI SEX: F ORD SITE: [facility] IMAGING STUDY DATE REPORT # PROCEDURE CODE PROCEDURE 10/09/13 [id number] XR KNEE 3 VIEW RT EXTORDERID [id number] ACCESSION NUMBER [id number] CHART DOCUMENT IMPRESSION: JOINT EFFUSION AND PREPATELLAR [...] M.D. 10/09/2013 14:55 DEEPTHI ALDRICH M.D. P #[id number] P/MA CC: IGLESIA LITTLE M.D. Radiology image is available. Click on Image Link above. Assessment 1. Joint Pain In The Right Knee 719.46 2. Onychomycosis 110.1 Plan 1. Ciclodan 8 % External Solution; APPLY AND GENTLY MASSAGE INTO AFFECTED AREA(S) TWICE DAILY; Therapy: 90Gdb1553 to (Last Rx:[id number]) Ordered; For: Onychomycosis (110.1); Rx By: Iglesia Little; Dispense: 0 Days ; #:1 X 6.6 ML Bottle; Refill: 3; Print Rx Discussion/Summary please give knee pain home program please give a statement for work with lifting and tranfering weight up to 20 lbs for 1 week. Signatures Electronically signed by : Iglesia Little M.D.; Oct 15 2013 3:32PM (Author) RAL ENGINEER documented in this encounter Plan of Treatment Not on file documented as of this encounter Visit Diagnoses Not on filedocumented in this encounter Care Teams Field Application Engineer Relationship Specialty Start Date End Date Rose Marie Norton NP PCP - General 07/06/15 10/31/16 Rose Marie Norton NP PCP - General 03/02/15 07/05/15 Tam Gilbert MD PCP - General 12/18/14 Iglesia Little MD [address] [facility] [address] [place] [address] PCP - General 10/12/14 12/17/14 Iglesia Little MD [address] [place] [address] PCP - General 06/28/14 10/11/14 Iglesia Little MD [address], [place] [address] PCP - General 04/14/14 06/27/14 Iglesia Littel MD [address] [place] [address] [place] [address] PCP - General 02/23/14 04/13/14 Iglesia Little MD [address] [place] [address] [place] [address] PCP - General 02/07/14 02/22/14 Iglesia Little MD [address] [place] [address] [place], [place] [address] [phone] PCP - General 10/09/13 02/06/14 documented as of this encounter
--- OUTSIDE RECORDS SUMMARY | 2024-11-04 23:04 | XMS_ITS | Encounter Summary ---
Author Organization [facility] Address [address] [place] [address]. [place], [place] [address] [place] [address] Care Team Providers Care Mop Machine Operator Name Role Phone Rose Marie Norton GAG WRITER Primary Care Provider + Rose Marie Norton GAG WRITER Primary Care Provider + Md Generic Conversion Primary Care Provider Unavailable Iglesia Little MD Primary Care Provider + Iglesia Little MD Primary Care Provider + Iglesia Little MD Primary Care Provider + Iglesia Little MD Primary Care Provider + Iglesia Little MD Primary Care Provider + Igleisa Little MD Primary Care Provider + Md Generic Conversion Primary Care Provider Unavailable Encounter Details Date Type Department Care Team (Late st Contact Info) Description 10/08/[address] [facility] Family Medicine - [place] [address] [facility], [address] [place] [address] Iglesia Little MD [address] [place] [address] [address] [place] [address] Social History Tobacco Use Types Packs/Day Years Used Date Smoking Tobacco: Never Assessed Comments Unknown Sex and Gender Information Value Date Recorded Sex Assigned at Not on file Legal Sex Female 6:50 PM CDT Gender Identity Not on file Sexual Orientation Not on file documented as of this encounter Last Filed Vital Signs Vital Sign Reading Time Taken Comments Blood Pressure 120/78 10/08/2013 1:39 PM UKRAINIAN FOLK ARTS INSTRUCTOR Pulse 89 10/08/2013 1:39 PM UKRAINIAN FOLK ARTS INSTRUCTOR Temperature - - Respiratory Rate - - Oxygen Saturation - - Inhaled Oxygen Concentration - - Weight - - Height - - Body Mass Index - - documented in this encounter Progress Notes * Iglesia Little MD - 10/08/2013 2:15 PM CST Reason For Visit Consultation Visit Chief Complaint 1. Knee Pain went to [facility] emergency department 10-06 with R knee pain, pain below knee cap. edema present History of Present Illness 38 yo AAF c/o right knee swelling and pain, no injury, Went to and was told to come to see us. about 05/16 while taking Ibuprofen. She was given prednison that she did't take cause it makes her sick. No imaging was done non smoker no drug habit Review of [...] Pain (Soft Tissue) 729.5 3. Hypertension 401.9 Social History ?? Current Some Day Smoker 305.1 ?? Never Drank Alcohol ?? Never Used Drugs Current Meds 1. Lisinopril-Hydrochlorothiazide 10-12.5 MG Oral Tablet; TAKE 1 TABLET DAILY; Therapy: (Recorded:59Dis1228) to 2. Omeprazole 40 MG Oral Capsule Delayed Release; TK 1 C PO D; Therapy: 22Nov2012 to (Evaluate:17Nov2013); Last Rx:22Nov2012 Allergies 1. No Known Drug Allergies Vitals 85Dau3140 01:39PM Heart Rate 89 Systolic 120 Diastolic 78 Physical Exam Constitutional General appearance: No acute [...] S2, without murmurs. Musculoskeletal Right knee tenderness, mild swelling. Assessment 1. Joint Pain In The Right Knee 719.46 Plan 1. Naproxen 500 MG Oral Tablet; TAKE 1 TABLET EVERY 12 HOURS NEEDED; Therapy: to (Evaluate:40Edw2708); Last Rx:[id number] Ordered; For: Joint Pain In The Right Knee (719.46); Rx By: Iglesia Little; Dispense: 15 Days ; #:30 Tablet; Refill: 0; Print Rx 2. XR KNEE 3 VIEW RT Requested for: [id number] Ordered; For: Joint Pain In The Right Knee (719.46); Ordered By: Iglesia Little Perform: [facility] Radiology Due: [id number] Signatures Electronically signed by : Iglesia Little M.D.; Oct 08 2013 2:09PM (Author) INIAN FOLK ARTS INSTRUCTOR documented in this encounter Plan of Treatment Not on file documented as of this encounter Visit Diagnoses Not on filedocumented in this encounter Care Teams Mop Machine Operator Relationship Specialty Start Date End Date Rose Marie Norton NP PCP - General 07/06/15 10/31/16 Rose Marie Norton NP PCP - General 03/02/15 07/05/15 Tam Gilbert MD PCP - General 12/18/14 Iglesia Little MD [address] [place] [address] PCP - General 10/12/14 12/17/14 Iglesia Little MD [address] [place] [address] PCP - General 06/28/14 10/11/14 Iglesia Little MD [address] [place] [address] PCP - General 04/14/14 06/27/14 Iglesia Little MD [address] [place] [address] PCP - General 02/23/14 04/13/14 Iglesia Little MD [address] [place] [address] PCP - General 02/07/14 02/22/14 Iglesia Little MD [address] [place] [address] PCP - General 10/09/13 02/06/14 Tam Gilbert MD PCP - General 10/06/13 documented as of this encounter
--- OUTSIDE RECORDS SUMMARY | 2024-11-04 23:04 | XMS_ITS | Encounter Summary ---
Author Organization [facility] Address [address] [place] [address]. [place], [place] [address] [place] [address] Care Team Providers Care Endless Track Vehicle Mechanic Name Role Phone Rose Marie Norton IRRIGATOR Primary Care Provider + Rose Marie Norton IRRIGATOR Primary Care Provider + , Generic Conversion MD Primary Care Provider Unavailable Iglesia Little MD Primary Care Provider + Iglesia Little MD Primary Care Provider + Iglesia Little MD Primary Care Provider + Iglesia Little MD Primary Care Provider + Encounter Details Date Type Department Care Team (Latest Contact Info) Description 02/27/2014 Abstract [facility] Social History Tobacco Use Types Packs/Day Years Used Date Smoking Tobacco: Never Assessed Comments Unknown Sex and Gender Information Value Date Recorded Sex Assigned at Not on file Legal Sex Female 6:50 PM CDT Gender Identity Not on file Sexual Orientation Not on file documented as of this encounter Progress Notes * Rose Marie Norton NP - 02/27/2014 1:32 PM CDT Verified Results XR CHEST 2 VIEW ( Routine ) 23Feb2014 03:51PM Rose Marie Norton Test Name Result Flag Reference XR CHEST 2 VIEW (Report) TAMMY CERVANTES ORDERING MD: IGLESIA LITTLE MD ACCT: [id number] ADMIT/SERVICE DATE: 02/23/14 DISCHARGE DATE: : 1975 PT TYPE: REG CLI SEX: F ORD SITE: [facility] OUTPATNT IMAGING STUDY DATE REPORT # PROCEDURE CODE PROCEDURE 02/23/14 [id number] CXR2V XR CHEST 2 VIEW EXTORDERID [id number] ACCESSION NUMBER [id number] CHART DOCUMENT IMPRESSION: NO ACUTE PROCESS IS [...] M.D. 02/23/2014 19:00 JESSEE MADISON M.D. P #[id number] P/MA CC: IGLESIA LITTLE M.D. Discussion/Summary Negative chest xray documented in this encounter Plan of Treatment Not on file documented as of this encounter Visit Diagnoses Not on filedocumented in this encounter Care Teams Endless Track Vehicle Mechanic Relationship Specialty Start Date End Date Rose Marie Norton NP PCP - General 07/06/15 10/31/16 Rose Marie Norton NP PCP - General 03/02/15 07/05/15 Tam Gilbert MD PCP - General 12/18/14 Iglesia Little MD [address] [place] [address] PCP - General 10/12/14 12/17/14 Iglesia Little MD [address] [place] [address] PCP - General 06/28/14 10/11/14 Iglesia Little MD [address] [place] [address] PCP - General 04/14/14 06/27/14 Iglesia Little MD [address] [place], [place] [phone] PCP - General 02/23/14 04/13/14 documented as of this encounter
--- OUTSIDE RECORDS SUMMARY | 2024-11-04 23:04 | XMS_ITS | Encounter Summary ---
Author Organization [facility] Address [address] [place] [address]. [place], [place] [address] [place] [address] Care Team Providers Care Aircraft Stress Analyst Name Role Phone Rose Marie Norton ANSWERER Primary Care Provider + Rose Marie Norton ANSWERER Primary Care Provider + Tam Gilbert MD [...] Department Care Team (Latest Contact Info) Description 01/01/2014 Abstract [facility] Social History Tobacco Use Types [...] on filedocumented in this encounter Care Teams Aircraft Stress Analyst Relationship Specialty Start Date End Date Rose Marie Norton ANSWERER PCP - General 07/06/15 10/31/16 Rose Marie Norton NP PCP - General 03/02/15 07/05/15 Tam Gilbert MD PCP - General 12/18/14 Iglesia Little MD [address] [place] [address] PCP - General 10/12/14 12/17/14 Iglesia Little MD [address] [place] [address] PCP - General 06/28/14 10/11/14 Iglesia Little MD [address] [place] [address] PCP - General 04/14/14 06/27/14 Iglesia Little MD [address] [place] [address] PCP - General 02/23/14 04/13/14 Iglesia Little MD [address] [place] [address] PCP - General 02/07/14 02/22/14 Iglesia Little MD [address] [place] [address] PCP - General 10/09/13 02/06/14 documented as of this encounter
--- OUTSIDE RECORDS SUMMARY | 2024-11-04 23:05 | XMS_ITS | Encounter Summary ---
Author Organization [facility] Address [facility] [facility]. [place], [place] [address] [place] [address] Care Team Providers Care Sas Clinical Programmer Name Role Phone Rose Marie Norton RN TEAM LEADER Primary Care Provider + Rose Marie Norton RN TEAM LEADER Primary Care Provider + Md Generic [place] [...] Care Team (Late st Contact Info) Description 06/30/[address] [facility] [address] [place], [place] [id number] Iglesia Little MD [address] [place] [address] Social History Tobacco Use Types Packs/Day Years [...] encounter Visit Diagnoses Diagnosis Vitamin D deficiency Unspecified vitamin D deficiency documented in this encounter Care Teams Sas Clinical Programmer Relationship Specialty Start Date End Date Rose Marie Norton NP PCP - General 07/06/15 10/31/16 Rose Marie Norton RN TEAM LEADER PCP - General 03/02/15 07/05/15 Tam Trevino MD PCP - General 12/18/14 Iglesia Little MD [address] [place] [address] PCP - General 10/12/14 12/17/14 Iglesia Little MD [address] [place] [address] PCP - General 06/28/14 10/11/14 Iglesia Little MD [address] [place] [address] PCP - General 04/14/14 06/27/14 Iglesia Little MD [address] [place] [address] PCP - General 02/23/14 04/13/14 Iglesia Little MD [address] [place] [address] PCP - General 02/07/14 02/22/14 Iglesia Little MD [address] [place] [address] PCP - General 10/09/13 02/06/14 , Generic Conversion, PCP - General 10/06/13 , Generic Conversion, PCP - General 09/17/1310/05 , Generic Conversion, PCP - General 07/06/1309/16 , Generic Conversion, PCP - General 06/20/13 Iglesia Little MD [address] [place] [address] [place] [address] PCP - General 04/04/13 06/19/13 Iglesia Little MD [address] [place] [address] [place] [address] PCP - General 01/31/13 04/03/13 Iglesia Little MD [address] [place] [address] PCP - General 01/18/13 01/30/13 Iglesia Little MD [address] [place] [address] PCP - General 12/17/11 01/17/13 Iglesia Little MD [address] [place] [address] PCP - General 11/12/11 12/16/11 Iglesia Little MD [address] [place] [address] PCP - General 04/06/11 11/11/11 documented as of this encounter
--- OUTSIDE RECORDS SUMMARY | 2024-11-04 23:05 | XMS_ITS | Encounter Summary ---
Author Organization [facility] Address [facility]. [place], [place] [address] [place] [address] Care Team Providers Care School Psychologist Assistant Name Role Phone Rose Marie Norton BANBURY MIXER OPERATOR Primary Care Provider + Rose Marie Norton BANBURY MIXER OPERATOR Primary Care Provider + Md Generic [...] + Iglesia Little MD Primary Care Provider +1- Encounter Details Date Type Department Care Team (Late st Contact Info) Description 09/30/1993 Abstract [place] [address] , Tam Wallace MD Social History Tobacco Use Types Packs/Day [...] on filedocumented in this encounter Care Teams School Psychologist Assistant Relationship Specialty Start Date End Date Rose Marie Norton BANBURY MIXER OPERATOR PCP - General 07/06/15 10/31/16 Rose Marie Norton BANBURY MIXER OPERATOR PCP - General 03/02/15 07/05/15 Tam Trevino MD PCP - General 12/18/14 Iglesia Little MD [address] [address] PCP - General 10/12/14 12/17/14 Iglesia Little MD [address] [address] PCP - General 06/28/14 10/11/14 Iglesia Little MD [address] [address] PCP - General 04/14/14 06/27/14 Iglesia Little MD [address] [place] [address] PCP - General 02/23/14 04/13/14 Iglesia Little MD [address] [place] [address] PCP - General 02/07/14 02/22/14 Iglesia Little MD [address] [place] [address] PCP - General 10/09/13 02/06/14 , Generic Conversion, PCP - General 10/06/13 , Generic Conversion, PCP - General 09/17/1310/05 , Generic Conversion, PCP - General 07/06/1309/16 , Generic Conversion, PCP - General 06/20/13 Iglesia Little MD [address] [place] [address] PCP - General 04/04/13 06/19/13 Iglesia Little MD [address] [place] [address] PCP - General 01/31/13 04/03/13 Iglesia Little MD [address] [place] [address] PCP - General 01/18/13 01/30/13 Iglesia Little MD [address] [place] [address] PCP - General 12/17/11 01/17/13 Iglesia Little MD [address] [place] [address] PCP - General 11/12/11 12/16/11 Iglesia Little MD [address] [address] PCP - General 04/06/11 11/11/11 Iglesia Little MD [address] [place] [address] PCP - General 03/29/11 04/05/11 documented as of this encounter
--- OUTSIDE RECORDS SUMMARY | 2024-11-04 23:05 | XMS_ITS | Encounter Summary ---
Author Organization [facility] Address [facility]. [place], [place] [address] [place] [address] Care Team Providers Care Mobile Battery Technician Name Role Phone Rose Marie Norton RN MEDICAL SURGICAL Primary Care Provider + Rose Marie Norton RN MEDICAL SURGICAL Primary Care Provider + Md Generic Madison [...] Igleisa Little MD Primary Care Provider + Iglesia Little MD Primary Care Provider + Iglesia Little MD Primary Care Provider +1- Encounter Details Date Type Department Care Team (Late st Contact Info) Description 12/06/2001 Abstract [place] [address] , Tam Wallace MD Social History Tobacco [...] on filedocumented in this encounter Care Teams Mobile Battery Technician Relationship Specialty Start Date End Date Rose Marie Norton RN MEDICAL SURGICAL PCP - General 07/06/15 10/31/16 Rose Marie Norton RN MEDICAL SURGICAL PCP - General 03/02/15 07/05/15 Tam Trevino MD PCP - General 12/18/14 Iglesia Little MD [address] [address] PCP - General 10/12/14 12/17/14 Iglesia Little MD [address] [address] PCP - General 06/28/14 10/11/14 Iglesia Little MD [address] [address] PCP - General 04/14/14 06/27/14 Iglesia Little MD [address] [place] [address] PCP - General 02/23/14 04/13/14 Iglesia Little MD [address] [place] [address] PCP - General 02/07/14 02/22/14 Iglesia Little MD [address] [place] [address] PCP - General 10/09/13 02/06/14 , Generic Conversion, PCP - General 10/06/13 , Generic Conversion, PCP - General 09/17/1310/05 , Generic Conversion, PCP - General 07/06/1309/16 , Generic Conversion, PCP - General 06/20/13 Iglesia Little MD [address] [place] [address] PCP - General 04/04/13 06/19/13 Iglesia Little MD [address] [place] [address] PCP - General 01/31/13 04/03/13 Iglesia Little MD [address] [place] [address] PCP - General 01/18/13 01/30/13 Iglesia Little MD [address] [place] [address] PCP - General 12/17/11 01/17/13 Iglesia Little MD [address] [place] [address] PCP - General 11/12/11 12/16/11 Iglesia Little MD [address] [address] PCP - General 04/06/11 11/11/11 Iglesia Little MD [address] [place] [address] PCP - General 03/29/11 04/05/11 documented as of this encounter
--- OUTSIDE RECORDS SUMMARY | 2024-11-04 23:05 | XMS_ITS | Encounter Summary ---
Author Organization [facility] Address [facility] Formerly [facility]. [place], [place] [id number] [place] [address] Care Team Providers Care Funeral Planning Counselor Name Role Phone Rose Marie Norton DIRECTOR OF PARTNERSHIPS Primary Care Provider + Rose Marie Norton DIRECTOR OF PARTNERSHIPS Primary Care Provider + Md Generic Madison [...] Care Team (Late st Contact Info) Description 07/06/2001 Abstract [facility] [address] [place] [address] Tam Trevino MD Social History Tobacco Use [...] on filedocumented in this encounter Care Teams Funeral Planning Counselor Relationship Specialty Start Date End Date Rose Marie Norton, DIRECTOR OF PARTNERSHIPS PCP - General 07/06/15 10/31/16 Rose Marie Norton DIRECTOR OF PARTNERSHIPS PCP - General 03/02/15 07/05/15 Tam Trevino MD PCP - General 12/18/14 Iglesia Little MD [address] [address] PCP - General 10/12/14 12/17/14 Iglesia Little MD 670 [facility] [address] [place] [address] PCP - General 06/28/14 10/11/14 Iglesia Little MD [address] [facility] [address] [facility] [address] PCP - General 04/14/14 06/27/14 Iglesia Little MD [address] [place] [address] PCP - General 02/23/14 04/13/14 Iglesia Little MD [address] [place] [address] PCP - General 02/07/14 02/22/14 Iglesia Little MD [address] [place] [address] PCP - General 10/09/13 02/06/14 , Generic Conversion, PCP - General 10/06/13 , Generic Conversion, PCP - General 09/17/1310/05 , Generic Conversion, PCP - General 07/06/1309/16 , Generic Conversion, PCP - General 06/20/13 Iglesia Little MD [address] [place] [address] PCP - General 04/04/13 06/19/13 Iglesia Little MD [address] [place] [address] PCP - General 01/31/13 04/03/13 Iglesia Little MD [address] [place] [address] (Work) PCP - General 01/18/13 01/30/13 Iglesia Little MD [address] [place] [address] (Work) PCP - General 12/17/11 01/17/13 Iglesia Little MD [address] [address] PCP - General 11/12/11 12/16/11 Iglesia Little MD [address] [address] PCP - General 04/06/11 11/11/11 Iglesia Little MD [address] [address] PCP - General 03/29/11 04/05/11 documented as of this encounter
--- OUTSIDE RECORDS SUMMARY | 2024-11-04 23:05 | XMS_ITS | Encounter Summary ---
Author Organization [facility] Address [facility]6 [facility]. [place], [place] [address] [place] [address] Care Team Providers Care Agricultural Commodities Grader Name Role Phone Rose Marie Norton TRAVELING BUYER Primary Care Provider + Rose Marie Norton TRAVELING BUYER Primary Care Provider + Md Generic Madison [...] Care Team (Late st Contact Info) Description 04/06/[address] [facility] [address] [place], [place] [id number] Tam Trevino MD Social History Tobacco Use [...] Scabies documented in this encounter Care Teams Agricultural Commodities Grader Relationship Specialty Start Date End Date Rose Marie Norton NP PCP - General 07/06/15 10/31/16 Rose Marie Norton NP PCP - General 03/02/15 07/05/15 Tam Trevino MD PCP - General 12/18/14 Iglesia Little MD [address] [address] PCP - General 10/12/14 12/17/14 Iglesia Little MD [address] [place] [address] PCP - General 06/28/14 10/11/14 Iglesia Little MD [address] [place] [address] PCP - General 04/14/14 06/27/14 Iglesia Little MD [address] [place] [address] PCP - General 02/23/14 04/13/14 Iglesia Little MD [address] [place] [address] PCP - General 02/07/14 02/22/14 Iglesia Little MD [address] [place] [address] PCP - General 10/09/13 02/06/14 , Generic Conversion, PCP - General 10/06/13 , Generic Conversion, PCP - General 09/17/1310/05 , Generic Conversion, PCP - General 07/06/1309/16 , Generic Conversion, PCP - General 06/20/13 Iglesia Little MD [address] [place] [address] PCP - General 04/04/13 06/19/13 Iglesia Little MD [address] [place] [address] PCP - General 01/31/13 04/03/13 Iglesia Little MD [address] [place] [address] (Work) PCP - General 01/18/13 01/30/13 Iglesia Little MD [address] [place] [address] PCP - General 12/17/11 01/17/13 Iglesia Little MD [address] [address] PCP - General 11/12/11 12/16/11 Iglesia Little MD [address] [address] PCP - General 04/06/11 11/11/11 documented as of this encounter
--- OUTSIDE RECORDS SUMMARY | 2024-11-04 23:05 | XMS_ITS | Encounter Summary ---
Author Organization [facility] Address [address] [place] [address]. [place], [place] [address] [place] [address] Care Team Providers Care Aerospace Engineer Officer Armament Name Role Phone Rose Marie Norton CORRUGATOR HELPER Primary Care Provider + Rose Marie Norton CORRUGATOR HELPER Primary Care Provider + Md Generic Madison [...] Care Team (Late st Contact Info) Description 11/12/2011 Abstract [facility] [address] [facility] [place], [place] [phone] Estuardo Marlow MD [address] [facility] [address] [place] [address] Social History Tobacco Use Types Packs/Day [...] as of this encounter Visit Diagnoses Diagnosis Backache Backache, unspecified documented in this encounter Care Teams Aerospace Engineer Officer Armament Relationship Specialty Start Date End Date Rose Marie Norton CORRUGATOR HELPER PCP - General 07/06/15 10/31/16 Rose Marie Norton NP PCP - General 03/02/15 07/05/15 Tam Trevino MD PCP - General 12/18/14 Iglesia Little MD [address] [facility] [address] [place], [place] [id number] PCP - General 10/12/14 12/17/14 Iglesia Little MD [address] [place], [place] [id number] PCP - General 06/28/14 10/11/14 Iglesia Little MD [address] [place], [place] [address]- PCP - General 04/14/14 06/27/14 Iglesia Little MD [address] [place] [address] PCP - General 02/23/14 04/13/14 Iglesia Little MD [address] [place] [address] PCP - General 02/07/14 02/22/14 Iglesia Little MD [address] [place] [address] PCP - General 10/09/13 02/06/14 , Generic Conversion, PCP - General 10/06/13 , Generic Conversion, PCP - General 09/17/1310/05 , Generic Conversion, PCP - General 07/06/1309/16 , Generic Conversion, PCP - General 06/20/13 Iglesia Little MD [address] [place] [address] PCP - General 04/04/13 06/19/13 Iglesia Little MD [address] [place] [address] PCP - General 01/31/13 04/03/13 Iglesia Little MD [address] [place] [address] PCP - General 01/18/13 01/30/13 Iglesia Little MD [address] [place] [address] PCP - General 12/17/11 01/17/13 Iglesia Little MD [address] [address] PCP - General 11/12/11 12/16/11 documented as of this encounter
--- OUTSIDE RECORDS SUMMARY | 2024-11-04 23:05 | XMS_ITS | Encounter Summary ---
Author Organization [facility] Address [facility]. [place], [place] [address] [place] [address] Care Team Providers Care Rv Body Mechanic Name Role Phone Rose Marie Norton DRIVER EDUCATION ROAD INSTRUCTOR Primary Care Provider + Rose Marie Norton DRIVER EDUCATION ROAD INSTRUCTOR Primary Care Provider + Md Generic Madison [...] + Iglesia Little MD Primary Care Provider [phone]- Encounter Details Date Type Department Care Team (Late st Contact Info) Description 03/29/[address] [address] [facility] [place], [place] [phone] , Tam Wallace MD Social History Tobacco [...] as of this encounter Visit Diagnoses Diagnosis Observation and evaluation for other specified suspected conditions documented in this encounter Care Teams Rv Body Mechanic Relationship Specialty Start Date End Date Rose Marie Norton DRIVER EDUCATION ROAD INSTRUCTOR PCP - General 07/06/15 10/31/16 Rose Marie Norton NP PCP - General 03/02/15 07/05/15 Tam Trevino MD PCP - General 12/18/14 Iglesia Little MD [address] [place] [address] PCP - General 10/12/14 12/17/14 Iglesia Little MD [address] [place] [address] PCP - General 06/28/14 10/11/14 Iglesia Little MD [address] [place] [address] PCP - General 04/14/14 06/27/14 Iglesia Little MD [address] [place] [address] PCP - General 02/23/14 04/13/14 Iglesia Little MD [address] [place] [address] PCP - General 02/07/14 02/22/14 Iglesia Little MD [address] [place] [address] PCP - General 10/09/13 02/06/14 , Generic Conversion, PCP - General 10/06/13 , Generic Conversion, PCP - General 09/17/1310/05 , Generic Conversion, PCP - General 07/06/1309/16 , Generic Conversion, PCP - General 06/20/13 Iglesia Little MD [address] [place] [address] PCP - General 04/04/13 06/19/13 Iglesia Little MD [address] [place] [address] PCP - General 01/31/13 04/03/13 Iglesia Little MD [address] [place] [address] PCP - General 01/18/13 01/30/13 Iglesia Little MD [address] [place] [address] PCP - General 12/17/11 01/17/13 Iglesia Little MD [address] [address] PCP - General 11/12/11 12/16/11 Iglesia Little MD [address] [address] PCP - General 04/06/11 11/11/11 Iglesia Little MD [address] [address] PCP - General 03/29/11 04/05/11 documented as of this encounter
--- OUTSIDE RECORDS SUMMARY | 2024-11-04 23:05 | XMS_ITS | Encounter Summary ---
Author Organization [facility] Address [facility]6 [facility] [place], [place] [address] [place] [address] Care Team Providers Care Public Utilities Sales Representative Name Role Phone Rose Marie Norton SAMPLE DYE MIXER Primary Care Provider + Rose Marie Norton SAMPLE DYE MIXER Primary Care Provider + Md Generic Madison [...] Care Team (Late st Contact Info) Description 06/08/2001 Abstract [facility] [address] [facility] [place] [address] Tam Trevino MD Social History Tobacco Use [...] on filedocumented in this encounter Care Teams Public Utilities Sales Representative Relationship Specialty Start Date End Date Rose Marie Norton, SAMPLE DYE MIXER PCP - General 07/06/15 10/31/16 Rose Marie Norton SAMPLE DYE MIXER PCP - General 03/02/15 07/05/15 Tam Trevino MD PCP - General 12/18/14 Iglesia Little MD [address] [address] PCP - General 10/12/14 12/17/14 Iglesia Little MD 670 [facility] [address] [place] [address] PCP - General 06/28/14 10/11/14 Iglesia Little MD [address]70 [facility] [address] [facility] [place] [address] PCP - General 04/14/14 06/27/14 Iglesia Little MD [address] [place] [address] PCP - General 02/23/14 04/13/14 Iglesia Little MD [address] [place] [address] PCP - General 02/07/14 02/22/14 Iglesia Little MD [address] [place] [address] PCP - General 10/09/13 02/06/14 , Generic Conversion, PCP - General 10/06/13 , Generic Conversion, PCP - General 09/17/1310/05 , Generic Conversion, PCP - General 07/06/1309/16 , Generic Conversion, PCP - General 06/20/13 Iglesia Little MD [address] [place] [address] PCP - General 04/04/13 06/19/13 Iglesia Little MD [address] [place] [address] PCP - General 01/31/13 04/03/13 Iglesia Little MD [address] [place] [address] (Work) PCP - General 01/18/13 01/30/13 Iglesia Little MD [address] [place] [address] (Work) PCP - General 12/17/11 01/17/13 Iglesia Little MD [address] [address] PCP - General 11/12/11 12/16/11 Iglesia Little MD [address] [address] PCP - General 04/06/11 11/11/11 Iglesia Little MD [address] [address] PCP - General 03/29/11 04/05/11 documented as of this encounter
--- OUTSIDE RECORDS SUMMARY | 2024-11-04 23:18 | XMS_ITS | Clinical Summary ---
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 Gender Identity Not on file Sexual Orientation Not on file Plan of Treatment Health Maintenance Due Date Last Done Comments Hepatitis C Virus (HCV) Screening 1976 TdaP Immunization 1976 Hepatitis B Immunization (1 of 3 - 19+ 3-dose series) 1995 Pap Smear 1997 Cervical Cancer Screening (CCS) 2006 HPV/Cotest 2006 Discussion re Starting/Frequ ency of Mammograms 2016 Colonoscopy 2021 Colorectal Cancer Screening 2021 SARS-COV-2 Immunization ( season) 2023 Influenza Immunization (Seas on Ended) 2024 Meningococcal Immunization (ACWY) Aged Out No longer eligible based on patient's age to complete this topic Pneumococcal Immunization Combined Aged Out No longer eligible based on patient's age to complete this topic Rotavirus Immunization Aged Out No lo nger eligible based on patient's age to complete this topic
--- OUTSIDE RECORDS SUMMARY | 2024-11-04 23:18 | XMS_ITS | Clinical Summary ---
Author Organization [facility] [address] [facility] Address [address] [place] [address] Care Team Providers Care Melt Helper Name Role Phone Neil Stinson MD Primary Care Provid er Allergies Active Allergy Reactions Criticality Noted Date Comments Amoxicillin Unknown,Rash Medium 12/08/2018 Medications naproxen (NAPROSYN) 500 mg tablet TK 1 T PO Q 12 H 0 12/27/2018 Active DOK 100 mg capsule TK ONE C PO Q 12 H 0 12/27/2018 Active calcium citrate-vitamin D3 (CITRACAL+D) 315 mg-5 mcg (200 unit) per tablet Take 1 tablet by mouth 2 (two) times a day Active iron,carbonyl-vi tamin C 65 mg iron- 125 mg tablet,delayed release (DR/EC) Take by mouth Active Active Problems No known active problems Surgical History Surgery Date Site/Laterality Comments APPENDECTOMY D&C FIRST TRIMESTER / TX INC OMPLETE / MISSED / SEPTIC / INDUCED HYSTERECTOMY 12/26/2018 BILATERAL SALPINGOOPHORECTOMY 12/26/2018 Medical History Medical History Date Comments Hypertension Abnormal uterine bleeding GERD (gastroesophageal reflux disease) Sciatic nerve pain Anxiety Family History Medical History Relation Name Comments No Known Problems Brother No Known Problems Daughter 1 No Known Problems Daughter 2 No Known Problems Daughter 3 No Known Problems Son 1 No Known Problems Son 2 Relation Name Status Comments Brother Alive Daughter 1 Alive Daughter 2 Alive Daughter 3 Alive Father Mother Alive Son 1 Alive Son 2 Alive Social History Tobacco Use Types Packs/Day Years Used Date Smoking Tobacco: Former Cigarettes 0.5 15 1 990 - 2005 Smokeless Tobacco: Never Tobacco Cessation:Counseling Given: Not Answered Alcohol Use Standard Drinks/Week Comments Yes 0 (1 standard drink = 0.6 oz pur e alcohol) socially AUDIT-C Answer Date Recorded Q1: How often do you have a drink containing alcohol? 4 or more times a week 08/25/2022 Q2: How many drinks containi ng alcohol do you have on a typical day when you are drinking? 1 or 2 Q3: How often do you have si x or more drinks on one occasion? 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 Gender Identity Not on file Sexual Orientation Not on file Obstetrics History Last Filed Vital Signs Vital Sign Reading Time Taken Comments Blood Pressure 121/91 08/25/2022 1:05 PM CDT Pulse 60 08/25/2022 1:05 PM CDT Temperature 36.4 ??C (97.6 ??F) 08/25/2022 1 2:45 PM CDT Respiratory Rate 18 08/25/2022 1:05 PM CDT Oxygen Saturation 100% 08/25/2022 1:05 PM CDT Inhaled Oxygen Concentration - - Weight 109.2 kg (240 lb 12.8 oz) 2018 10:12 AM CDT Height 160 cm (5' 3 ) 01/10/2019 1:30 PM BIKE 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 Body Mass Index 42.66 01/10/2019 1:30 PM BIKE MECHANIC Plan of Treatment Health Maintenance Due Date Last Done Comments Colon Cancer Screening-Colonoscopy 1976 Depression Screening 1976 DTaP/Tdap/Td Vaccine (1 - Tdap) 1987 Hepatitis B Screening 1994 Regular Well Visit/Exam 18-64 1994 Breast Cancer Screening-Mammogram 08/19/2021 020 Influenza Vaccine (#1) 2024 Cervical Cancer Screening Discontinued 06/22/2017 Hepatitis C Screening Completed 06/22/2017 Pneumococcal vaccine <65 Aged Out No longer eligible based on patient's age to complete this topic Procedures Procedure Name Priority Date/Time Associated Diagnosis Comments DIAGNOSTIC MAMMOGRAM BILATERAL W BASSEM 08/19/2020 10:07 AM CDT HEPATITIS C ANTIBODY Routine 06/22/2017 2:24 PM CDT THINPREP IMAGING PAP AND HPV MRNA E6/E7, CHLAMYDIA/N.GONORRHO EAE Routine 06/22/2017 1:46 PM CDT from Last 3 Months or Most Recently Relevant to Health Maintenance Results * Diagnostic Mammogram Bilateral W Bassem (08/19/2020 10:07 AM CDT) Anatomical Region Laterality Modality Breast Bilateral Mammography 08/19/2020 10:5 4 AM CDT Narrative 08/19/2020 11:28 AM CDT Patient Name: MARIA DEL CARMEN CERVANTES ?Ordering Dr: Rose Marie Norton ?? D.O.B: 1975 ? Exam Date: 08/19/20 ?? 1007 ?? Age: 44 ?Sex: Female ? MR#: [id number] ?? Loc: ? RADIOLOGY REPORT ?? Order #[id number] ?? [facility] ? Jina Bilat Diagnostic 3D ? Signed ?- MG ?? BILATERAL DIGITAL DIAGNOSTIC MAMMOGRAM 3D/2D WITH MEDIOLATERAL OBLIQUE ?? CRANIOCAUDAL: 08/19/2020 ?? The study was acquired using full field digital technology and interpreted from ?soft copy. ?2D digital mammographic views, as well as 3D digital tomosynthesis were ?? performed in the CC and MLO projections. ? CLINICAL: 44-year-old woman comes in today for evaluation of focal pain in the ?? left breast, and screening of the right breast. ? COMPARISONS: No prior exams were available for comparison. ? BREAST TISSUE: The tissue of both breasts is almost entirely fatty. ? MAMMOGRAPHIC FINDINGS: ?? A metallic BB marker was placed on the left breast at ?? the reported level of pain, corresponding to approximately the 1 o'clock ?? position, middle to posterior depth. ??No suspicious findings are identified in ?? either breast on mammogram. ??Specifically, there is no suspicious finding in ?? the left breast to account for patient's pain. ??Targeted sonographic ?? examination of the left breast will be performed. ? ULTRASOUND FINDINGS: ?? Targeted sonographic examination of the left breast is ?? performed at the 1 o'clock position 8 cm from the nipple, corresponding to the ?? area of reported pain. ??There is only benign fibroglandular tissue at this ?? level without suspicious solid or cystic masses. ?? IMPRESSION: BI-RAD 1 ??NEGATIVE ? 1. There is no mammographic or sonographic correlate to account for patient's ?pain in the left breast. ??Continued physical examination is recommended. ??Any ?? further management should be based on clinical assessment. ? 2. No suspicious findings in either breast on mammogram. ??Annual bilateral ?? screening mammogram recommended in 12 months. ? I discussed the findings and impression with the patient at the time of the ?? examination. ? Electronically signed by: ?Kevin Pierre ? rl/:08/19/2020 11:28:52 ? Catalogue Illustrator: Aimee ROBERSON (Flory)(Vickie), [facility] ?? letter sent: Normal Exam Abnormal History ? Reading location: ?? BI-RADS: 1 Negative ? REPORT ELECTRONICALLY SIGNED IN OTHER VENDOR SYSTEM ?? Resulting Agency Comment O Procedure Note Kevin Kendall MD - 08/19/2020 Patient Name: MARIA DEL CARMEN CERVANTES Dr: Rose Marie Norton D.O.B: 1975 Exam Date: 08/19/20 1007 Age: 44 Sex: Female MR#: [id number] Loc: RADIOLOGY REPORT Order #[id number] [facility] Bilat Diagnostic 3D Signed - MG BILATERAL DIGITAL DIAGNOSTIC MAMMOGRAM 3D/2D WITH MEDIOLATERAL OBLIQUE CRANIOCAUDAL: 08/19/2020 The study was acquired using full field digital technology andinterpreted from soft copy. 2D digital mammographic views, as well as 3D digital tomosynthesis were performed in the CC and MLO projections. CLINICAL: 44-year-old woman comes in today for evaluation of focal painin the left breast, and screening of the right breast. COMPARISONS: No prior exams were available for comparison. BREAST TISSUE: The tissue of both breasts is almost entirely fatty. MAMMOGRAPHIC FINDINGS: A metallic BB marker was placed on the leftbreast at the reported level of pain, corresponding to approximately the 1 o'clock position, middle to posterior depth. No suspicious findings areidentified in either breast on mammogram. Specifically, there is no suspicious findingin the left breast to account for patient's pain. Targeted sonographic examination of the left breast will be performed. ULTRASOUND FINDINGS: Targeted sonographic examination of the leftbreast is performed at the 1 o'clock position 8 cm from the nipple, correspondingto the area of reported pain. There is only benign fibroglandular tissue atthis level without suspicious solid or cystic masses. IMPRESSION: BI-RAD 1 NEGATIVE 1. There is no mammographic or sonographic correlate to account forpatient's pain in the left breast. Continued physical examination is recommended.Any further management should be based on clinical assessment. 2. No suspicious findings in either breast on mammogram. Annualbilateral screening mammogram recommended in 12 months. I discussed the findings and impression with the patient at the time ofthe examination. Electronically signed by: Kevin Pierre rl/:08/19/2020 11:28:52 Catalogue Illustrator: Aimee Whipple)(Vickie), [facility] letter sent: Normal Exam Abnormal History Reading location: BI-RADS: 1 Negative REPORT ELECTRONICALLY SIGNED IN OTHER VENDOR SYSTEM Rose Marie Norton TALENT MANAGEMENT MANAGER IMG MAMMO PROCEDURES Final Resul t * Hepatitis C antibody (06/22/2017 2:24 PM CDT) Hep C Ab NONREACT NONREACTIVE Comment: Siemens CentaurXP using ROCIO (chemiluminescent immunoassay) technology. NONREACTIVE: Antibodies to Hepatitis C not detected. This does not exclude early acute Hepatitis C infection, possibility of exposure to Hepatitis C, antibodies below detection limit, or to lack of antibody reactivity to the antigen used in this assay. EQUIVOCAL: Antibodies to Hepatitis C may or may not be present. ??Sample to be confirmed by real-time PCR method. REACTIVE: Antibodies to Hepatitis C detected. 06/22/2017 2:24 PM CDT 06/22/2017 2:29 PM CDT Robyn Ramírez DO LAB MICROBIOLOGY - GEN ERAL ORDERABLES Final Result [facility] HISTORICAL RESULTS * ThinPrep Imaging Pap and HPV mRNA E6/E7, Chlamydia/N.Gonorrhoeae (06/22/2017 1:46 PM CDT) CLINICAL INFORMATION [facility] HISTORICAL RESULTS Comment:Information not prov ided LMP: 06/10/17 [facility] HISTORICAL RESULTS PREV. PAP: [facility] HISTORICAL RESULTS Comment:NORMAL PREV. BX: [facility] HISTORICAL RESULTS Comment:INFORMATION NOT PROV IDED SOURCE: [facility] HISTORICAL RESULTS Comment:Cervix, Endocervix STATEMENT OF ADEQUACY: [facility] HISTORICAL RESULTS Comment:Satisfactory for conrad luation. Endocervical/transformation zone component present. INTERPRETATION/RES ULT: [facility] HISTORICAL RESULTS Comment:Negative for intraep ithelial lesion or malignancy. COMMENT: [facility] HISTORICAL RESULTS Comment:This Pap test has be en evaluated with computer assisted technology. HEALTH CENTER ASSISTANT: [facility] HISTORICAL RESULTS Comment:PCM, CT(ASCP) CT scr eening location: [place] [address] [place] [address] HPV mRNA E6/E7 Not Detected Not Detected [facility] HISTORICAL RESULTS Comment: This test was performed using the APTIMA HPV Assay ([employer] This assay detects E6/E7 viral messenger RNA (mRNA) from 14 high-risk HPV types (16,18,31,33,35,39,45,51,52,56,58,59,66,68). C. trachomatis RNA NOT DETECTED NOT DETECTED [facility] HISTORICAL RESULTS N. gonorrhoeae RNA NOT DETECTED NOT DETECTED [facility] HISTORICAL RESULTS COMMENT [facility] HISTORICAL RESULTS Comment: This test was performed using the APTIMA COMBO2 Assay ([employer] The analytical performance characteristics of this assay, when used to test SurePath specimens have been determined by [employer]. 06/22/2017 1:46 PM CDT 06/27/2017 12:10 PM CDT Narrative [facility] HISTORICAL RESULTS - 06/27/2017 11:46 AM CDT 0 PERFORMING LAB: [facility] [address] [place] [address] Bloa Figueroa MD Robyn Ramírez DO LAB PATHOLOGY ORDERABL ES Final Result [facility] HISTORICAL RESULTS from Last 3 Months or Most Recently Relevant to Health Maintenance Insurance [facility] Care Teams Melt Helper Relationship Specialty Start Date End Date Neil Stinson MD [address] [place], [place] [id number] PCP - General Family Medicine 12/15/21
--- OUTSIDE RECORDS SUMMARY | 2024-11-04 23:18 | XMS_ITS | Referral Summary ---
Author Organization [facility] [address] [facility] Address [address] [place] [address] Care Team Providers Care National Sales Trainer Name Role Phone Neil Stinson MD Primary [...] Active Active Problems No known active problems Social History Tobacco Use Types Packs/Day Years [...] when you are drinking? 1 or 2 2 Q3: How often do you have si x or more drinks on one occasion? 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 D.O.B: 1975 ? Exam Date: 08/19/ ?? 1007 ?? Age: 44 ?Sex: Female ? MR#: [id number] ?? Loc: ? RADIOLOGY REPORT ?? Order #[id number] ?? [facility] ? Jina Bilat Diagnostic 3D ? [...] by: ?Kevin Pierre ? rl/:08/19/2020 11:28:52 ? Specialties Operator: Aimee ROBERSON (Flory)(Vickie), [facility] ?? letter sent: Normal Exam Abnormal History ? Reading location: ?? BI-RADS: 1 Negative ? REPORT ELECTRONICALLY SIGNED IN OTHER VENDOR SYSTEM ?? Resulting Agency Comment O Procedure Note Kevin Knedall MD - 08/19/2020 Patient Name: MARIA DEL CARMEN CERVANTES Dr: Rose Marie Norton D.O.B: 1975 Exam Date: 08/19/20 1007 Age: 44 Sex: Female MR#: [id number] Loc: RADIOLOGY REPORT Order #[id number] [facility] Jina Bilat Diagnostic 3D Signed - MG BILATERAL [...] Electronically signed by: Kevin Pierre rl/:08/19/2020 11:28:52 Specialties Operator: Aimee Angeles (R)), [facility] letter sent: Normal Exam Abnormal History Reading location: BI-RADS: 1 Negative REPORT ELECTRONICALLY SIGNED IN OTHER VENDOR SYSTEM Rose Marie Norton AUTOMATIC SCREWMAKER IMG MAMMO PROCEDURES Final Resul t * Hepatitis C antibody (06/22/2017 2:24 PM CDT) Hep C Ab NONREACT NONREACTIVE 06/22/2017 8:[address] [facility] HISTORICAL RESULTS Comment: Siemens EdaixiaurXP using ROCIO (chemiluminescent immunoassay) technology. NONREACTIVE: Antibodies [...] MICROBIOLOGY - GEN ERAL ORDERABLES Final Result [facility] HISTORICAL RESULTS * ThinPrep Imaging Pap and HPV mRNA E6/E7, Chlamydia/N.Gonorrhoeae (06/22/2017 1:46 PM CDT) CLINICAL INFORMATION [facility] HISTORICAL RESULTS Comment:Information not prov ided LMP: 06/10/17 [facility] HISTORICAL RESULTS PREV. PAP: [facility] HISTORICAL RESULTS Comment:NORMAL PREV. BX: [facility] HISTORICAL RESULTS Comment:INFORMATION NOT PROV IDED SOURCE: [facility] HISTORICAL RESULTS Comment:Cervix, Endocervix STATEMENT OF ADEQUACY: [facility] HISTORICAL RESULTS Comment:Satisfactory for conrad luation. Endocervical/transformation zone component present. INTERPRETATION/RES ULT: [facility] HISTORICAL RESULTS Comment:Negative for intraep ithelial lesion or malignancy. COMMENT: [facility] HISTORICAL RESULTS Comment:This Pap test has be en evaluated with computer assisted technology. PEDIATRIC ORTHODONTIST: [facility] HISTORICAL RESULTS Comment:PCM, CT(ASCP) CT scr eening location: [place] [address] [place] [address] HPV mRNA E6/E7 Not Detected Not Detected [facility] HISTORICAL RESULTS Comment: This test was performed using the APTIMA HPV Assay ([employer] This assay detects E6/E7 viral messenger RNA (mRNA) from 14 high-risk HPV types (16,18,31,33,35,39,45,51,52,56,58,59,66,68). C. trachomatis RNA NOT DETECTED NOT DETECTED [facility] HISTORICAL RESULTS N. gonorrhoeae RNA NOT DETECTED NOT DETECTED [facility] HISTORICAL RESULTS COMMENT [facility] HISTORICAL RESULTS Comment: This test was performed using the APTIMA COMBO2 Assay ([employer] The analytical performance characteristics of this assay, when used to test SurePath specimens have been determined by [employer]. 06/22/2017 1:46 PM CDT 06/27/2017 12:10 PM CDT Narrative [facility] HISTORICAL RESULTS - 06/27/2017 11:46 AM CDT 0 PERFORMING LAB: [facility] [address] [facility] [phone] Bola Figueroa MD Robyn Ramírez DO LAB PATHOLOGY ORDERABL ES Final Result [facility] HISTORICAL RESULTS from Last 3 Months or Most Recently Relevant to Health Maintenance Insurance [facility] Care Teams National Sales Trainer Relationship Specialty Start Date End Date Neil Stinson MD [address] [place] [address] PCP - General Family Medicine 12/15/21
--- OUTSIDE RECORDS SUMMARY | 2024-11-04 23:18 | XMS_ITS | Encounter Summary ---
Author Organization [facility] Address [address] [place] [address] Care Team Providers Care Economic Manager Name Role Phone Unavailable Primary Care Provider Unavailabl e Encounter Details Date Type Department Care Team (Late st Contact Info) Description 11/09/2021 Lab Requisition [facility] [address] [place] [address] Deandre Villagran MD [address] [place] [address] [place] [address] Social History Tobacco Use Types Packs/Day Years Used Date Smoking Tobacco: Never Assessed Comments Unknown Sex and Gender Information Value Date Recorded Sex Assigned at Not on file Legal Sex Female 8:04 AM LIBRARIAN SPECIAL LIBRARY Gender Identity Not on file Sexual Orientation Not on file documented as of this encounter Plan of Treatment Not on file documented as of this encounter Procedures Procedure Name Priority Date/Time Associated Diagnosis Comments SARS-COV-2 PCR [facility] ONLY Routine 11/09/2021 8:58 AM LIBRARIAN SPECIAL LIBRARY documented in this encounter Visit Diagnoses Not on filedocumented in this encounter Additional Health Concerns Infection Onset Date Last Indicated Resolved Time COVID - 19 Confirmed 11/09/2021 11/09/2021 022 12:17 AM LIBRARIAN SPECIAL LIBRARY documented as of this encounter
--- OUTSIDE RECORDS SUMMARY | 2024-11-04 23:18 | XMS_ITS | Data Portability ---
Author Organization [place] - [facility] OFFICE Address [address] [place] [address] Assessment Encounter Date Assessment Date Assessment LastModified by Organization Details LastModified Time 08/24/2022 08/24/2022 Patient Examined by THEO Teague, Also interviewed / examined by Supervising physician. Assessment / plan discussed and implemented Encounter scribed by THEO Teague. Documentation reviewed and approved by supervising physician lucia Not available 08/24/2022 13:28:31 11/16/2022 11/16/2022 Patient Examined by THEO Teague, Also interviewed / examined by Supervising physician. Assessment / plan discussed and implemented Encounter scribed by THEO Teague. Documentation reviewed and approved by supervising physician stella Not available 11/16/2022 16:40:31 Plan of Treatment Reminders Order Date Submit Date Provider Last Modified By Organization Details Last Modified Time Details Appointments None recorded. Lab None recorded. Referral None recorded. Procedures None recorded. Surgeries None recorded. Imaging None recorded. Medication Orders hydrochloro thiazide 25 mg tablet 2021 022 [email or web address] [address] [facility] [id number], [address], [place], [phone], 17:06:06 hydrochloro thiazide 12.5 mg capsule 2022 023 kwilliams [address] [facility] [id number], [address], [place], [id number], 17:06:14 Patient TargetsNo targets recorded. Patient Instructions Encounter Date Encounter Id Patient Instructions Last Modified By Organization Details Last Modified Time 05/20/2021 [id number] Exercise advised Low cholesterol diet advised Low sodium diet advised [email or web address] Not available 05/20/2021 15:35:00 Patient was seen and evaluated by Sherron Drake [facility]. Plan of care was discussed with collaborating physician and note cosigned by Dr. Kaylee Cross. Not available 05/20/2021 15:35:15 08/24/2022 [id number] Exercise advised Low cholesterol diet advised Low sodium diet advised. [email or web address] Not available 08/24/2022 13:34:28 11/16/2022 [id number] Exercise advised Low cholesterol diet advised Low sodium diet advised. [email or web address] Not available 11/16/2022 16:45:06 Reason for Referral None Reported. Results Created Date Observation Date Name Description Value Unit Range Abnormal Flag Note LastModifiedBy Organization Detail LastModifiedTime 02/21/20 elect rocar diogr am No observ ation record ed. [email or web address] Not Available 2020 12:08:49 06/01/20 21 05/20/2021 elect rocar diogr am No observ ation record ed. [email or web address] Not Available 06/11 14:40:32 08/31/20 22 08/24/2022 elect rocar diogr am No observ ation record ed. [email or web address] Not Available 2021 12:01:34 11/10/19 23 10/12/2022 exerc ise stres s test No observ ation record ed. [email or web address] Not Available 2022 09:16:06 01/20/20 23 01/06/2023 elect rocar diogr am No observ ation record ed. [email or web address] Not Available 2022 12:18:22 Result Notes None recorded. Problems Name Problem SNOMED Code Status Onset Date Resolution Date Notes Provider Name and Address Organization Details Recorded Time Hyperlipide ly 89797922 Active 2022 John Mesto null, [place] - [facility] 3 14:15:41 Essential hypertensio n 08058411 Active 2015 Johnparish Flannery [place], [place] - [facility] 2 05:43:00 Gastroesoph ageal reflux disease 572542615 Active 2015 Alvaro Flann[place] - [facility] 6 13:33:32 Anxiety 13775482 Active 2015 Alvaro [place]ann[place] - [facility] 6 13:33:44 Obesity 679500560 Active 2015 Johnparish Flannery [place] - [facility] 6 13:33:54 Pulmonary hypertensio n 34628255 Active 2016 Johnparish Flannery [place] [facility] 7 18:13:54 Edema of lower extremity 646835413 Active 2016 Johnparish Flannery [place] - [facility] 7 18:14:06 Obstructive sleep apnea syndrome 67412379 Active 2016 Alvaro Flannery [place] - [facility] 2 05:42:53 Deep venous thrombosis of right lower extremity 8101909139949 05 Active 2016 Alvaro Flannery [place], [place] - [facility] 7 18:14:36 Pre-surgery evaluation Active 2018 Braydenhermes Jayski [facility], [place] - [facility] 9 14:42:02 Problem Notes None recorded. Procedures Surgical History Date Name Laterality Status Provider Name and Address Organization Details Recorded Time Appendectomy completed Alvaro Flannery [place] - [facility] 10/20/2016 13:34:22 Imaging Results Imaging Date Name Status LastModified by Organization Details LastModified Time 02/20/2021 electrocardiogram completed [email or web address] Informa tion not available 02/20/2021 12:08:49 05/20/2021 electrocardiogram completed [email or web address] Informa tion not available 06/11/2021 14:40:32 08/24/2022 electrocardiogram completed Informa tion not available 08/31/2022 12:01:34 10/12/2022 exercise stress test completed Info rmation not available 11/10/2022 09:16:06 01/06/2023 electrocardiogram completed Informa tion not available 01/25/2023 12:18:22 Procedure Notes None recorded. Medical Equipment None Reported. Allergies Allergen ID Allergen Name Allergen Category Reaction Reaction Severity Criticality Documentation Date Start Date Code Code System Note Provider Name and Address Organization Details Recorded Time 3267 amoxicill in medicatio n Not available Not available Not available 10/20/2016 723 RxNorm Alvaro Flannery null, [place] - [facility] 6 13:35:45 Medications Name Sig Start Date Stop Date Status Note LastModified by Organization Details LastModified Time cyclobenz aprine 10 mg tablet 01/06 completed Not Available Not Available Not Available prednison e 10 mg tablet active Not Available Not Available Not Available clindamyc in HCl 300 mg capsule TAKE 1 CAPSULE BY MOUTH EVERY 8 HOURS FOR 7 DAYS active Not Available Not Available No t Available azithromy angelo 250 mg tablet ZPK 11/17 completed Not Available Not Available Not Available ibuprofen 800 mg tablet 1 tab as needed 08/22 completed Not Available Not Available Not Available fluconazo le 150 mg tablet prn 11/17 completed Not Available Not Available Not Available hydrocodo ne 5 mg-acetam inophen 325 mg tablet TAKE 1 TABLET BY MOUTH EVERY 6 HOURS NEEDED FOR PAIN 08/24 completed Not Available Not Available Not Available hydrocort isone 1 % topical ointment APPLY TO THE AFFECTED ARE TWICE DAILY 08/24 completed Not Available Not Available Not Available meloxicam 15 mg tablet TAKE 1/2 TABLET BY MOUTH EVERY DAY FOR 6 DAYS active Not Available Not Available No t Available sucralfat e 1 gram tablet 08/24 completed Not Available Not Available Not Available prednison e 20 mg tablet 11/17 completed Not Available Not Available Not Available clindamyc in HCl 150 mg capsule active Not Available Not Available Not Available metronida zole 500 mg tablet 11/17 completed Not Available Not Available Not Available ciproflox acin 500 mg tablet 11/30 completed Not Available Not Available Not Available omeprazol e 40 mg capsule,d elayed release TAKE 1 CAPSULE BY MOUTH DAILY BEFORE BREAKFAS T 08/24 completed Not Available Not Available Not Available tramadol 50 mg tablet 10/22 completed Not Available Not Available Not Available triamtere ne 37.5 mg-hydroc hlorothia zide 25 mg capsule 1 tab qd 11/30 completed Not Available Not Available Not Available famotidin e 20 mg tablet TAKE 1 TABLET BY MOUTH DAILY active Not Available Not Available No t Available DOK 100 mg capsule 03/15 completed Not Available Not Available Not Available gentamici n 0.3 % eye drops 11/30 completed Not Available Not Available Not Available doxycycli ne monohydra te 100 mg capsule 11/17 completed Not Available Not Available Not Available dexametha sone 2 mg tablet active Not Available Not Available Not Available cephalexi n 500 mg capsule 11/17 completed Not Available Not Available Not Available pantopraz ole 40 mg tablet,de layed release Take 1 tablet every day by oral route. 03/15 completed Not Available Not Available Not Available naproxen sodium 550 mg tablet TAKE 1 TABLET BY MOUTH 1 TIME active Not Available Not Available No t Available oseltamiv ir 75 mg capsule 11/30 completed Not Available Not Available Not Available nystatin 100,000 unit/gram topical cream APPLY TOPICALL Y TO ABDOMINA L RASH TWICE DAILY FOR YEAST active Not Available Not Available No t Available prednison e 50 mg tablet 10/22 completed Not Available Not Available Not Available lidocaine 5 % topical patch PLACE 1 PATCH ONTO SKIN DAILY FOR 10 DAYS. REMOVE PATCH AFTER 12 HOURS 01/06 completed Not Available Not Available Not Available ursodiol 300 mg capsule 08/24 completed Not Available Not Available Not Available hydrochlo rothiazid e 12.5 mg capsule TAKE 1 CAPSULE BY MOUTH EVERY DAY active Pt is not taking it from contrain dication s Not Available Not Available Not Available omeprazol e 20 mg capsule,d elayed release TAKE 2 CAPSULES BY MOUTH EVERY DAY 08/24 completed Not Available Not Available Not Available hydrochlo rothiazid e 25 mg tablet TAKE 1 TABLET BY MOUTH EVERY DAY active Pt is not taking it from contrain dication s Not Available Not Available Not Available furosemid e 20 mg tablet Take 1 tablet every other day by oral route as needed. 11/17 completed Not Available Not Available Not Available ergocalci ferol (vitamin D2) 1,250 mcg (50,000 unit) capsule TAKE 1 CAPSULE BY MOUTH EVERY 7 DAYS active Not Available Not Available No t Available ibuprofen 600 mg tablet 11/17 completed Not Available Not Available Not Available cefuroxim e axetil 500 mg tablet TAKE 1 TABLET BY MOUTH TWICE DAILY FOR 10 DAYS 05/20 completed Not Available Not Available Not Available levofloxa angelo 500 mg tablet 11/17 completed Not Available Not Available Not Available scopolami ne 1 mg over 3 days transderm al patch 08/24 completed Not Available Not Available Not Available methylpre dnisolone 4 mg tablets in a dose pack qd for 5 days 11/17 completed Not Available Not Available Not Available ondansetr on 4 mg disintegr ating tablet DISSOLVE ONE TABLET BY MOUTH EVERY 4 HOURS NEEDED 08/24 completed Not Available Not Available Not Available cefdinir 300 mg capsule 11/17 completed Not Available Not Available Not Available loratadin e 10 mg tablet TAKE 1 TABLET BY MOUTH DAILY active Not Available Not Available No t Available naproxen 500 mg tablet Take 1 tablet twice a day by oral route as needed. 03/15 completed Not Available Not Available Not Available oxycodone 5 mg tablet 08/24 completed Not Available Not Available Not Available nitrofura ntoin monohydra te/macroc rystals 100 mg capsule 11/17 completed Not Available Not Available Not Available Centrum 1 tab daily active Not Available Not Available No t Available ProAir HFA 90 mcg/actua tion aerosol inhaler 11/30 completed Not Available Not Available Not Available Harman-Citra te 250 mg-2.5 mcg (100 unit) tablet Take 1 tablet every day by oral route. active Not Available Not Available No t Available Virtussin AC 10 mg-100 mg/5 mL oral liquid 11/17 completed Not Available Not Available Not Available ursodiol 200 mg capsule Take 1 capsule twice a day by oral route. 08/24 completed Not Available Not Available Not Available Vitals Date Recorded Body height Respiratory rate Heart rate Oxygen saturation Oxygen saturation in Arterial blood by Pulse oximetry Body temperature Systolic blood pressure Diastolic blood pressure Provider Name and Address Organization Details Last Updated DateTime 160.02 cm 18 /min 64 /min 98 % 98 % 97.4 [degF] 124 mm[Hg] 80 mm[Hg] Claude Wells [facility] 1 11:24:56 Date Recorded Body height Body mass index (BMI) Body weight Heart rate Respiratory rate Oxygen saturation Oxygen saturation in Arterial blood by Pulse oximetry Systolic blood pressure Diastolic blood pressure Provider Name and Address Organization Details Last Updated DateTime 1 160.02 cm 36.1 kg/m2 05992.8 4 g 59 /min 18 /min 98 % 98 % 110 mm[Hg] 74 mm[Hg] Tiffanie Rosas [facility] 1 11:44:00 Date Recorded Body weight Heart rate Oxygen saturation Oxygen saturation in Arterial blood by Pulse oximetry Systolic blood pressure Diastolic blood pressure Provider Name and Address Organization Details Last Updated DateTime 2 01703.6 6 g 61 /min 98 % 98 % 130 mm[Hg] 82 mm[Hg] Luanne Antonio [facility] 2 12:54:28 Date Recorded Body mass index (BMI) Body height Provider Name and Address Organization Details Last Updated DateTime 08/24/2022 31 kg/m2 160.02 cm Jose Umaña MD [address] [place], [address], [facility] 08/24/2022 13:31:55 Date Recorded Body height Body mass index (BMI) Body weight Heart rate Respiratory rate Oxygen saturation Oxygen saturation in Arterial blood by Pulse oximetry Systolic blood pressure Diastolic blood pressure Provider Name and Address Organization Details Last Updated DateTime 3 160.02 cm 30.3 kg/m2 87951.3 g 82 /min 16 /min 99 % 99 % 132 mm[Hg] 92 mm[Hg] Sheldon Addison [facility] 3 16:20:28 Date Recorded Body height Body mass index (BMI) Body weight Heart rate Respiratory rate Oxygen saturation Oxygen saturation in Arterial blood by Pulse oximetry Systolic blood pressure Diastolic blood pressure Provider Name and Address Organization Details Last Updated DateTime 3 160.02 cm 28.9 kg/m2 94712.5 6 g 82 /min 16 /min 94 % 94 % 118 mm[Hg] 78 mm[Hg] Sheldon Addison [facility] 3 17:09:11 Social History Question Answer Notes LastModified by Organizat ion Details LastModified Time Tobacco Smoking Status Former Smoker Alvaro Flannery [facility] 10/20/2016 13:36:39 Do You Or Have You Ever Used E-cigarettes Or Vape? Never Used Electronic Cigarettes Information not available 03/12/2020 What Was The Date Of Your Most Recent Tobacco Screening? 03/15/2019 Information not available 05/31/2019 Do You Or Have You Ever Used Smokeless Tobacco? Former Smokeless Tobacco User Information not available 03/12/2020 Sex: Unknown Functional Status None recorded. Mental Status None recorded. Family History Relationship Description Onset Age of this Age Resolved Age Notes LastModified by Organization Details LastModified Time Father Cerebrovascu lar accident [email or web address] Not available 13:36:08 Mother Hypertensive disorder [email or web address] Not available 2015 13:36:34 Medical History Condition Response Sleep Apnea Y GERD/Reflux Y Hypertension Y Gynecological HistoryNo gynecological history recorded. Obstetrics History GPAL:G 0 P 0 0 0 0 Past Encounters Encounter ID Performer Location Encounter Start Date Encounter Closed Date Diagnosis/Indication Diagnosis SNOMED-CT Code Diagnosis ICD10 Code [id number] Jose Umaña MD [facility] [address] [place] [address] 10/22/2016 12:14:07 10/25/2016 10:21:47 Essential hypertension 40798264 I10 Chest pain 42414133 R07. 9 Pulmonary hypertension 31145359 I27.2 Edema of l ower extremity 698618742 R60.0 Obstructiv e sleep apnea syndrome 55317261 G47.33 [id number] Jose Umaña MD [facility] [address] [place] [address] 11/15/2016 14:05:32 11/15/2016 15:54:27 Essential hypertension 75238153 I10 Chest pain 95902065 R07. 9 Pulmonary hypertension 55718608 I27.2 Edema of l ower extremity 383418367 R60.0 Obstructiv e sleep apnea syndrome 55792187 G47.33 Deep venou s thrombosis of lower extremity 517297798 I82.401 [id number] Jose Umaña MD [facility] [address] [place] [address] 08/22/2017 15:45:01 08/23/2017 09:43:43 Essential hypertension 03432111 I10 Chest pain 24003210 R07. 9 Edema of l ower extremity 024967742 R60.0 Obstructiv e sleep apnea syndrome 13295956 G47.33 Deep venou s thrombosis of lower extremity 398028017 I82.401 [id number] Andre Palmer [facility] [address] [place] [address] 10/10/2017 16:26:23 10/11/2017 10:19:35 Essential hypertension 35244726 I10 Chest pain 29964052 R07. 9 Edema of l ower extremity 623752558 R60.0 Obstructiv e sleep apnea syndrome 27893934 G47.33 [id number] Brayden Chavarria [facility] [address] [place] [address] 11/30/2018 13:43:30 11/30/2018 14:49:52 Chest pain 46253039 R07.9 Essential hypertension 14575484 I10 Edema of l ower extremity 804062745 R60.0 Pre-surger y evaluation 934292807 Z01.818 [id number] Brayden Aura [facility] [address] [place] [address] 03/15/2019 14:36:27 03/15/2019 16:06:01 Chest pain 97388721 R07.9 Essential hypertension 77000660 I10 Edema of l ower extremity 035268671 R60.0 [id number] Brayden Warren Office [address] [place] [address] 11/17/2020 14:54:00 11/17/2020 15:30:34 Chest pain 67309495 R07.9 Essential hypertension 15270203 I10 Edema of l ower extremity 278174253 R60.0 Pre-surger y evaluation 394129085 Z01.818 [id number] Brayden Warren Office [address] [place] [address] 02/18/2021 11:20:12 02/18/2021 11:43:47 Chest pain 31347422 R07.9 Essential hypertension 00103688 I10 Edema of l ower extremity 436140754 R60.0 Pre-surger y evaluation 665677768 Z01.818 [id number] Sherron Drake [facility] Office [address] [place] [address] 05/20/2021 11:28:04 05/20/2021 12:21:53 Chest pain 32232246 R07.9 Essential hypertension 14360920 I10 Edema of l ower extremity 676280032 R60.0 [id number] Jose Umaña MD [facility] [address] [place] [address] 08/24/2022 12:30:31 08/24/2022 13:42:03 Chest pain 74047843 R07.9 Essential hypertension 25307361 I10 Edema of l ower extremity 409157457 R60.0 Hyperlipidemia 09811827 E78.5 Palpitations 17076305 R0 0.2 Obstructiv e sleep apnea syndrome 77678549 G47.33 [id number] Jose Umaña MD [facility] [address] [place] [address] 11/16/2022 16:16:09 11/16/2022 16:44:17 Chest pain 48756231 R07.9 Essential hypertension 55099685 I10 Edema of l ower extremity 532900208 R60.0 Hyperlipidemia 09572046 E78.5 Palpitations 36341938 R0 0.2 Obstructiv e sleep apnea syndrome 02166498 G47.33 [id number] Jose Umaña MD [facility] [address] [place] [address] 01/06/2023 16:22:03 01/06/2023 17:29:49 Chest pain 56216446 R07.9 Essential hypertension 91639553 I10 Edema of l ower extremity 611725606 R60.0 Hyperlipidemia 52688895 E78.5 Palpitations 57690682 R0 0.2 Obstructiv e sleep apnea syndrome 82304744 G47.33 Health Concerns Section Related Observation LastModified by Organization Detai ls LastModified Time None Recorded Concern Status LastModified by Organization Details LastModified Time None Recorded Advance Directives Directive None Recorded Payers Encounter Date Sequence Insurance Name Policy Number Policy Rice Covered Member ID Rice Member ID Guarantor Name 02/18/2021 1 [facility] PRIOR TO 05/07/2021 (MEDICAID REPLACEMENT - HMO) Maria Del Carmen C Ray [id number] Maria Del Carmen C Ray 05/20/2021 1 [facility] ON OR AFTER 05/07/21 (MEDICAID REPLACEMENT - HMO) Maria Del Carmen C Ray [id number] Maria Del Carmen C Ray 08/24/2022 1 [facility] ON OR AFTER 05/07/21 (MEDICAID REPLACEMENT - HMO) Maria Del Carmen C Ray [id number] Maria Del Carmen C Ray 11/16/2022 1 [facility] ON OR AFTER 05/07/21 (MEDICAID REPLACEMENT - HMO) Maria Del Carmen C Rya [id number] Maria Del Carmen C Ray 01/06/2023 1 [facility] ON OR AFTER 05/07/21 (MEDICAID REPLACEMENT - HMO) Maria Del Carmen C Ray [id number] Maria Del Carmen C Ray Notes Date Note Type Note Provider Name and Address Organization Details Recorded Time 02/18/2021 text/html 02/18/2021 CC: Preop HPI 45 year old Woman with no significant past medical history, is here for follow-up. Pt states that she is going to be scheduled for bariatric surgery soon in [place], Now is loosing some weight. She had EGD with the bariatric team on February 02 and reports she has had some chest discomfort since that time. She reports she was told she had an ulcer which she is now on carafate for EGD was done as routine process prior to gastric sleeve surgery. Going to have repeated EGD soon. Had COVID 05/26 BP fluctuating Today she reports No chest pain. No shortness of breath at rest. Yes dyspnea on exertion-- post covid. No orthopnea. No PND's. No dizziness. No palpitation. No syncope or near syncope. No leg swelling. No nausea and vomiting. No side effects from medications. Denies all medication use at this time. *Had ECHO done in 11/19/20 showed LV hypertrophy. There is normal global systolic function and contractility. The estimated left ventricle ejection fraction is 55-60% (normal). E to A mitral inflow reversal is consistent with possible diastolic dysfunction. There is mild thickening of mitral valve anterior leaflet. There is trace tricuspid regurgitation. There is minimal pulmonic regurgitation. Previously pt was seen last time by Dr. Palmer in 2016. She presented at that time since she needed preop evaluation before surgery (hysterectomy). Pt was diagnosed with pneumonia 10/07/17. Treadmill Nuclear Stress Test 10/03/17 : Negative stress test. Normal LV systolic function. Abnormal stress test. Artifact noted. 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 Submaximal exercise stress test. The sensitivity of the test is limited by the inability to achieve target HR. Exercise tolerance is average. LVEF 66%. 03/15/19 *had ECHO done in 12/07/18 showed normal LV systolic function , EF 60-65% , mild pulmonic regurgitation. Results from this visit, or from the past:09/08/20: VIT B12 532, FOLIC ACID 10. CMP: NA 140, K 4.3, CH 106, CO2 26, GL 105, BUN 16, CR 0.9, CA 9.2, AST 18, ALT 25, ALK PHOS 66, MG 1.8111/08/19 LIPID: TG 76, TC 202, HDL 60, LDL 5521209/08/20: VIT D 13111/08/19: HGB A1C 5.4%09/08/20 CBC: WBC 8.1, RBC 4.86, HGB 15.0, HCT 44.1, PLT 241 10/24/2017: WBC 10.9, HGB 12.2, HCT 38.2, PLT 9.712: TR 73, TC 137, HDL 41, LDL 8110/12/2017: SOD 142, K 3.8, CL 105, CO2 26, GL, BUN 16, BUN 0.9,11/01/16 : Na 138 ,K 4.4 ,CL 101 ,CO2 25 , GLU 81 ,BUN 13 , CR 0.78 ,CK 127 ,TC 172 ,TG 85 ,HDL 55 ,LDL 100 ,AST 13 ,ALT NA 141, K 3.9, CL 104, CO2 25, GLU 85, BUN 12, CR 0.9, AST 15, ALT SOD 139, K 3.9, CL 104, Co2 27, GLU 123, BUN 17, CR 0.8.06/11/14 TC 201, HDL 56, TR 138, LDL 117, AST 19, ALT 18 EKG (02/18/21): NSR, nonspecific IVCD, NSST changesEKG (11/17/20): NSR, nonspecific IVCD, NSST changesEKG (09/08/20, ) Normal sinus rhythm. Inferior T wave abnormality. When compared to ECG of 05-OCT-2014, Nonspecific T wave abnormality is now seen in lead aVF. EKG (03/15/19): NSR, NSST changesEKG (11/30/18): NSR, poor R progression, NSST changesEKG 08/22/17 : NSR, within normal limitsEK10/22/16 sinus rhythm. P: normal. QRS: normal. ST-T: normal. conclusion: normal ECG. EK06/11/14 Normal sinus rhythm. Normal ECG. When compared with ECG of 11-Jun-2014, no significant change was found. ECHO 11/19/20:LV chamber size is normal,there is borderline LVH,there is normal global systolic function and contractility,the estimated LVEF is 55-60%(normal),E to A mitral inflow reversal ia consistent with possible diastolic dysfunction,there is mild thickening of mitral valve anterior leaflet,there is trace tricuspid regurgitation,there is minimal pulmonic regurgitation. 12/07/18 ECHO: LV chamber size is normal. LV wall thickness is normal. There is normal global systolic function and contractility. The estimated left ventricle ejection fraction is 60-65%(normal). Normal left atrial pressure and diastolic function. The mitral valve leaflet is mildly thickened. There is mild pulmonic regurgitation. RADIOLOGY: CXR: 06/11/14 No evidence of acute pulmonary disease. No infiltrates or consolidation. CT CHEST w/CONTRAST: 06/19/14 No pulmonary embolism. No acute cardiopulmonary process.STRESS TEST: SE: 06/24/14 Negative stress echo. Moderate exercise impairment. Treadmill Nuclear Stress Test 10/03/17 : Negative stress test. Normal LV systolic function. Abnormal stress test. Artifact noted. 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 Submaximal exercise stress test. The sensitivity of the test is limited by the inability to achieve target HR. Exercise tolerance is average. LVEF 66%. 10/22/16 ECHOCARDIOGRAM REPORT: LV chamber size is normal. LV wall thickness is normal. There is normal global systolic function and contractility. The estimated left ventricular ejection fraction is 60-65% (normal). Diastolic filling reveals a pseudonormal pattern (grade 2 diastolic dysfunction). There are no prior studies for comparison. CT, chest, w/o contrast 10-24-2017 10/24/2017: Normal CT chest 11/16/16 VENOUS DOP/DUPLEX BOTH LEGS: Negative for deep vein thrombosis , bilateral lower extremities. Brayden weber [place] - [facility] 02/18/2021 16:13:34 05/20/2021 text/html 05/20/2021 CC: cardiac follow-up 45-year-old woman with no significant past medical history is here for follow-up. She was last seen in clinic on 02/18/2021. She had bariatric surgery in March 2021, and is down 36 lbs from last visit. She reports feeling well with no complaints. She has some indigestion following surgery which is relieved with omeprazole. She does report she was seen in [facility] ED with abdominal pain and was discharged home with antibiotics for diverticulitis. No new complaints, feeling well overall. She has been exercising regularly. Denies chest pain. Denies shortness of breath at rest. Denies dyspnea on exertion. No orthopnea. No PNDs. Denies heart palpitations. Denies dizziness. Denies syncope or near syncope. No ankle or leg edema. No major bleeding events. No reported side effects from medications. Taking medications as prescribed with no missed doses. Denies snoring, daytime somnolence and AM headache. *Had ECHO done in 11/19/20 showed LV hypertrophy. There is normal global systolic function and contractility. The estimated left ventricle ejection fraction is 55-60% (normal). E to A mitral inflow reversal is consistent with possible diastolic dysfunction. There is mild thickening of mitral valve anterior leaflet. There is trace tricuspid regurgitation. There is minimal pulmonic regurgitation. Treadmill Nuclear Stress Test 10/03/17 : Negative stress test. Normal LV systolic function. Abnormal stress test. Artifact noted. 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 Submaximal exercise stress test. The sensitivity of the test is limited by the inability to achieve target HR. Exercise tolerance is average. LVEF 66%. 03/15/19 *had ECHO done in 12/07/18 showed normal LV systolic function , EF 60-65% , mild pulmonic regurgitation. Results from this visit, or from the past 09/08/20: VIT B12 532, FOLIC ACID 10.011 CMP: NA 140, K 4.3, CH 106, CO2 26, GL 105, BUN 16, CR 0.9, CA 9.2, AST 18, ALT 25, ALK PHOS 66, MG 1.8111/08/19 LIPID: TG 76, TC 202, HDL 60, LDL 38944: VIT D 13111/08/19: HGB A1C 5.4%09/08/20 CBC: WBC 8.1, RBC 4.86, HGB 15.0, HCT 44.1, PLT 241 10/24/2017: WBC 10.9, HGB 12.2, HCT 38.2, PLT 9.712: TR 73, TC 137, HDL 41, LDL 8110/12/2017: SOD 142, K 3.8, CL 105, CO2 26, GL, BUN 16, BUN 0.9,11/01/16 : Na 138 ,K 4.4 ,CL 101 ,CO2 25 , GLU 81 ,BUN 13 , CR 0.78 ,CK 127 ,TC 172 ,TG 85 ,HDL 55 ,LDL 100 ,AST 13 ,ALT NA 141, K 3.9, CL 104, CO2 25, GLU 85, BUN 12, CR 0.9, AST 15, ALT SOD 139, K 3.9, CL 104, Co2 27, GLU 123, BUN 17, CR 0.8.06/11/14 TC 201, HDL 56, TR 138, LDL 117, AST 19, ALT 18 EKG (02/18/21): NSR, nonspecific IVCD, NSST changesEKG (11/17/20): NSR, nonspecific IVCD, NSST changesEKG (09/08/20, ) Normal sinus rhythm. Inferior T wave abnormality. When compared to ECG of 05-OCT-2014, Nonspecific T wave abnormality is now seen in lead aVF. EKG (03/15/19): NSR, NSST changesEKG (11/30/18): NSR, poor R progression, NSST changesEKG 08/22/17 : NSR, within normal limitsEK10/22/16 sinus rhythm. P: normal. QRS: normal. ST-T: normal. conclusion: normal ECG. EK06/11/14 Normal sinus rhythm. Normal ECG. When compared with ECG of 11-Jun-2014, no significant change was found. ECHO 11/19/20:LV chamber size is normal,there is borderline LVH,there is normal global systolic function and contractility,the estimated LVEF is 55-60%(normal),E to A mitral inflow reversal ia consistent with possible diastolic dysfunction,there is mild thickening of mitral valve anterior leaflet,there is trace tricuspid regurgitation,there is minimal pulmonic regurgitation. 12/07/18 ECHO: LV chamber size is normal. LV wall thickness is normal. There is normal global systolic function and contractility. The estimated left ventricle ejection fraction is 60-65%(normal). Normal left atrial pressure and diastolic function. The mitral valve leaflet is mildly thickened. There is mild pulmonic regurgitation. RADIOLOGY: CXR: 06/11/14 No evidence of acute pulmonary disease. No infiltrates or consolidation. CT CHEST w/CONTRAST: 06/19/14 No pulmonary embolism. No acute cardiopulmonary process.STRESS TEST: SE: 06/24/14 Negative stress echo. Moderate exercise impairment. Treadmill Nuclear Stress Test 10/03/17 : Negative stress test. Normal LV systolic function. Abnormal stress test. Artifact noted. 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 Submaximal exercise stress test. The sensitivity of the test is limited by the inability to achieve target HR. Exercise tolerance is average. LVEF 66%. 10/22/16 ECHOCARDIOGRAM REPORT: LV chamber size is normal. LV wall thickness is normal. There is normal global systolic function and contractility. The estimated left ventricular ejection fraction is 60-65% (normal). Diastolic filling reveals a pseudonormal pattern (grade 2 diastolic dysfunction). There are no prior studies for comparison. CT, chest, w/o contrast 10-24-2017 10/24/2017: Normal CT chest 11/16/16 VENOUS DOP/DUPLEX BOTH LEGS: Negative for deep vein thrombosis , bilateral lower extremities. Sherron Drake [facility], [place] - [facility] 05/20/2021 15:41:32 08/24/2022 text/html 08/24/22CC : Car diac follow up dyspnea on exertion and [id number] woman with h/o Hypertension, is here for follow up. She was last seen in the clinic on 05/20/21, since then she is doing well. Her BP been elevated for one one week and now it is back to normal. She never been tested for [facility] . She reported having occasional chest pain and heart fluttering for few minutes that comes and goes. *Last LDL was 127 done on 09/07/20.Pt dose not takes any statins. She denies ER visits and hospitalizations since she was last seen. Today reports:occasional chest pain.Denies shortness of breath at rest. Has mild dyspnea on exertion.No orthopnea. No PNDs.occasional heart palpitations.Denies dizziness. Denies syncope or near syncope.No ankle or leg edema.No major bleeding events.No reported side effects from medications. Taking medications as prescribed with no missed doses.Denies snoring, daytime somnolence and AM headache.*Last LDL was 127 done on 09/07/20.Pt dose not takes any statins. Previously:She had bariatric surgery in March 2021, and is down 36 lbs from last visit. She reports feeling well with no complaints. She has some indigestion following surgery which is relieved with omeprazole. She does report she was seen in [facility] ED with abdominal pain and was discharged home with antibiotics for diverticulitis. *Had ECHO done in 11/19/20 showed LV hypertrophy. There is normal global systolic function and contractility. The estimated left ventricle ejection fraction is 55-60% (normal). E to A mitral inflow reversal is consistent with possible diastolic dysfunction. There is mild thickening of mitral valve anterior leaflet. There is trace tricuspid regurgitation. There is minimal pulmonic regurgitation. *Treadmill Nuclear Stress Test 10/03/17 : Negative stress test. Normal LV systolic function. Abnormal stress test. Artifact noted. 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 Submaximal exercise stress test. The sensitivity of the test is limited by the inability to achieve target HR. Exercise tolerance is average. LVEF 66%. Results from this visit, or from the past 09/08/20: VIT B12 532, FOLIC ACID 10.011 CMP: NA 140, K 4.3, CH 106, CO2 26, GL 105, BUN 16, CR 0.9, CA 9.2, AST 18, ALT 25, ALK PHOS 66, MG 1.8111/08/19 LIPID: TG 76, TC 202, HDL 60, LDL 4685509/08/20: VIT D 13111/08/19: HGB A1C 5.4%09/08/20 CBC: WBC 8.1, RBC 4.86, HGB 15.0, HCT 44.1, PLT 241 10/24/2017: WBC 10.9, HGB 12.2, HCT 38.2, PLT 9.7112/13/2016: TR 73, TC 137, HDL 41, LDL 8110/12/2017: SOD 142, K 3.8, CL 105, CO2 26, GL, BUN 16, BUN 0.9,11/01/16 : Na 138 ,K 4.4 ,CL 101 ,CO2 25 , GLU 81 ,BUN 13 , CR 0.78 ,CK 127 ,TC 172 ,TG 85 ,HDL 55 ,LDL 100 ,AST 13 ,ALT NA 141, K 3.9, CL 104, CO2 25, GLU 85, BUN 12, CR 0.9, AST 15, ALT SOD 139, K 3.9, CL 104, Co2 27, GLU 123, BUN 17, CR 0.8.06/11/14 TC 201, HDL 56, TR 138, LDL 117, AST 19, ALT 18 EKG (02/18/21): NSR, nonspecific IVCD, NSST changesEKG (11/17/20): NSR, nonspecific IVCD, NSST changesEKG (09/08/20, ) Normal sinus rhythm. Inferior T wave abnormality. When compared to ECG of 05-OCT-2014, Nonspecific T wave abnormality is now seen in lead aVF. EKG (03/15/19): NSR, NSST changesEKG (11/30/18): NSR, poor R progression, NSST changesEKG 08/22/17 : NSR, within normal limitsEK10/22/16 sinus rhythm. P: normal. QRS: normal. ST-T: normal. conclusion: normal ECG. EK06/11/14 Normal sinus rhythm. Normal ECG. When compared with ECG of 11-Jun-2014, no significant change was found. ECHO 11/19/20:LV chamber size is normal,there is borderline LVH,there is normal global systolic function and contractility,the estimated LVEF is 55-60%(normal),E to A mitral inflow reversal ia consistent with possible diastolic dysfunction,there is mild thickening of mitral valve anterior leaflet,there is trace tricuspid regurgitation,there is minimal pulmonic regurgitation. 12/07/18 ECHO: LV chamber size is normal. LV wall thickness is normal. There is normal global systolic function and contractility. The estimated left ventricle ejection fraction is 60-65%(normal). Normal left atrial pressure and diastolic function. The mitral valve leaflet is mildly thickened. There is mild pulmonic regurgitation. RADIOLOGY: CXR: 06/11/14 No evidence of acute pulmonary disease. No infiltrates or consolidation. CT CHEST w/CONTRAST: 06/19/14 No pulmonary embolism. No acute cardiopulmonary process.STRESS TEST: SE: 06/24/14 Negative stress echo. Moderate exercise impairment. Treadmill Nuclear Stress Test 10/03/17 : Negative stress test. Normal LV systolic function. Abnormal stress test. Artifact noted. 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 Submaximal exercise stress test. The sensitivity of the test is limited by the inability to achieve target HR. Exercise tolerance is average. LVEF 66%. 10/22/16 ECHOCARDIOGRAM REPORT: LV chamber size is normal. LV wall thickness is normal. There is normal global systolic function and contractility. The estimated left ventricular ejection fraction is 60-65% (normal). Diastolic filling reveals a pseudonormal pattern (grade 2 diastolic dysfunction). There are no prior studies for comparison. CT, chest, w/o contrast 10-24-2017 10/24/2017: Normal CT chest 11/16/16 VENOUS DOP/DUPLEX BOTH LEGS: Negative for deep vein thrombosis , bilateral lower extremities. Jose Umaña MD [address] [place], [address], [facility] - [facility] 08/24/2022 13:35:03 11/16/2022 text/html 11/16/21CC : Car diac follow up, dyspnea on [id number] woman with h/o Hypertension, hyperlipidemia, and obstructive sleep apnea syndrome is here for 3 month follow up with stress test results. She was last seen in the clinic on 08/24/22, since then she had Negative stress test on 10/12/22 with old infarction in apical areas. Normal LV systolic function. Exercise tolerance: Average.She denies ER visits and hospitalizations since she was last seen. Today reports:Denies chest pain.Denies shortness of breath at rest. Has mild dyspnea on exertion.No orthopnea. No PNDs.Denies heart palpitations.Denies dizziness. Denies syncope or near syncope.No ankle or leg edema.No major bleeding events.No reported side effects from medications. Taking medications as prescribed with no missed doses.Denies snoring, daytime somnolence and AM headache.*Last LDL was 127 done on 09/07/20.Pt dose not takes any statins. *Had Negative stress test on 10/12/22 with old infarction in apical areas. Normal LV systolic function. Exercise tolerance: Average. Previously:She reported having occasional chest pain and heart fluttering for few minutes that comes and goes. She had bariatric surgery in March 2021, and is down 36 lbs from last visit. She reports feeling well with no complaints. She has some indigestion following surgery which is relieved with omeprazole. She does report she was seen in [facility] ED with abdominal pain and was discharged home with antibiotics for diverticulitis. *Had ECHO done in 11/19/20 showed LV hypertrophy. There is normal global systolic function and contractility. The estimated left ventricle ejection fraction is 55-60% (normal). E to A mitral inflow reversal is consistent with possible diastolic dysfunction. There is mild thickening of mitral valve anterior leaflet. There is trace tricuspid regurgitation. There is minimal pulmonic regurgitation. *Treadmill Nuclear Stress Test 10/03/17 : Negative stress test. Normal LV systolic function. Abnormal stress test. Artifact noted. 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 Submaximal exercise stress test. The sensitivity of the test is limited by the inability to achieve target HR. Exercise tolerance is average. LVEF 66%. Results from this visit, or from the past09/08/20: VIT B12 532, FOLIC ACID 10.011 CMP: NA 140, K 4.3, CH 106, CO2 26, GL 105, BUN 16, CR 0.9, CA 9.2, AST 18, ALT 25, ALK PHOS 66, MG 1.811 LIPID: TG 76, TC 202, HDL 60, LDL 77094: VIT D 13111/08/19: HGB A1C 5.4%09/08/20 CBC: WBC 8.1, RBC 4.86, HGB 15.0, HCT 44.1, PLT 1651510/24/2017: WBC 10.9, HGB 12.2, HCT 38.2, PLT 9.712: TR 73, TC 137, HDL 41, LDL 8110/12/2017: SOD 142, K 3.8, CL 105, CO2 26, GL, BUN 16, BUN 0.9,11/01/16 : Na 138 ,K 4.4 ,CL 101 ,CO2 25 , GLU 81 ,BUN 13 , CR 0.78 ,CK 127 ,TC 172 ,TG 85 ,HDL 55 ,LDL 100 ,AST 13 ,ALT NA 141, K 3.9, CL 104, CO2 25, GLU 85, BUN 12, CR 0.9, AST 15, ALT SOD 139, K 3.9, CL 104, Co2 27, GLU 123, BUN 17, CR 0.8.06/11/14 TC 201, HDL 56, TR 138, LDL 117, AST 19, ALT 18 EKG (02/18/21): NSR, nonspecific IVCD, NSST changesEKG (11/17/20): NSR, nonspecific IVCD, NSST changesEKG (09/08/20, ) Normal sinus rhythm. Inferior T wave abnormality. When compared to ECG of 05-OCT-2014, Nonspecific T wave abnormality is now seen in lead aVF. EKG (03/15/19): NSR, NSST changesEKG (11/30/18): NSR, poor R progression, NSST changesEKG 08/22/17 : NSR, within normal limitsEK10/22/16 sinus rhythm. P: normal. QRS: normal. ST-T: normal. conclusion: normal ECG. EK06/11/14 Normal sinus rhythm. Normal ECG. When compared with ECG of 11-Jun-2014, no significant change was found. ECHO 11/19/20:LV chamber size is normal,there is borderline LVH,there is normal global systolic function and contractility,the estimated LVEF is 55-60%(normal),E to A mitral inflow reversal ia consistent with possible diastolic dysfunction,there is mild thickening of mitral valve anterior leaflet,there is trace tricuspid regurgitation,there is minimal pulmonic regurgitation. 12/07/18 ECHO: LV chamber size is normal. LV wall thickness is normal. There is normal global systolic function and contractility. The estimated left ventricle ejection fraction is 60-65%(normal). Normal left atrial pressure and diastolic function. The mitral valve leaflet is mildly thickened. There is mild pulmonic regurgitation. RADIOLOGY: CXR: 06/11/14 No evidence of acute pulmonary disease. No infiltrates or consolidation. CT CHEST w/CONTRAST: 06/19/14 No pulmonary embolism. No acute cardiopulmonary process.STRESS TEST: SE: 06/24/14 Negative stress echo. Moderate exercise impairment. Treadmill Nuclear Stress Test 10/03/17 : Negative stress test. Normal LV systolic function. Abnormal stress test. Artifact noted. 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 Submaximal exercise stress test. The sensitivity of the test is limited by the inability to achieve target HR. Exercise tolerance is average. LVEF 66%. 10/22/16 ECHOCARDIOGRAM REPORT: LV chamber size is normal. LV wall thickness is normal. There is normal global systolic function and contractility. The estimated left ventricular ejection fraction is 60-65% (normal). Diastolic filling reveals a pseudonormal pattern (grade 2 diastolic dysfunction). There are no prior studies for comparison. CT, chest, w/o contrast 10-24-2017 10/24/2017: Normal CT chest 11/16/16 VENOUS DOP/DUPLEX BOTH LEGS: Negative for deep vein thrombosis , bilateral lower extremities. Jose Umaña MD [address] [place], [address], [facility] 11/16/2022 16:45:12 01/06/2023 text/html 01/06/23CC : Car diac follow up, dyspnea on [id number] woman with h/o Hypertension, hyperlipidemia, and obstructive sleep apnea syndrome is here for follow up. She was last seen in the clinic on 11/16/22, since then she c/o dizziness lightheadednessShe went to ER with numbness Denies chest pain.Denies shortness of breath at rest. Has mild dyspnea on exertion.No orthopnea. No PNDs.Denies heart palpitations.Denies dizziness. Denies syncope or near syncope.No ankle or leg edema.No major bleeding events.No reported side effects from medications. Taking medications as prescribed with no missed doses.Denies snoring, daytime somnolence and AM headache.*Last LDL was 127 done on 09/07/20.Pt dose not takes any statins. Previously:She had Negative stress test on 10/12/22 with old infarction in apical areas. Normal LV systolic function. Exercise tolerance: Average. *Had Negative stress test on 10/12/22 with old infarction in apical areas. Normal LV systolic function. Exercise tolerance: Average. She reported having occasional chest pain and heart fluttering for few minutes that comes and goes. She had bariatric surgery in March 2021, and is down 36 lbs from last visit. She reports feeling well with no complaints. She has some indigestion following surgery which is relieved with omeprazole. She does report she was seen in [facility] ED with abdominal pain and was discharged home with antibiotics for diverticulitis. *Had ECHO done in 11/19/20 showed LV hypertrophy. There is normal global systolic function and contractility. The estimated left ventricle ejection fraction is 55-60% (normal). E to A mitral inflow reversal is consistent with possible diastolic dysfunction. There is mild thickening of mitral valve anterior leaflet. There is trace tricuspid regurgitation. There is minimal pulmonic regurgitation. *Treadmill Nuclear Stress Test 10/03/17 : Negative stress test. Normal LV systolic function. Abnormal stress test. Artifact noted. 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 Submaximal exercise stress test. The sensitivity of the test is limited by the inability to achieve target HR. Exercise tolerance is average. LVEF 66%. Results from this visit, or from the past09/08/20: VIT B12 532, FOLIC ACID 10. CMP: NA 140, K 4.3, CH 106, CO2 26, GL 105, BUN 16, CR 0.9, CA 9.2, AST 18, ALT 25, ALK PHOS 66, MG 1.8111/08/19 LIPID: TG 76, TC 202, HDL 60, LDL 9251409/08/20: VIT D 13111/08/19: HGB A1C 5.4%09/08/20 CBC: WBC 8.1, RBC 4.86, HGB 15.0, HCT 44.1, PLT 2994710/24/2017: WBC 10.9, HGB 12.2, HCT 38.2, PLT 9.712: TR 73, TC 137, HDL 41, LDL 8110/12/2017: SOD 142, K 3.8, CL 105, CO2 26, GL, BUN 16, BUN 0.9,11/01/16 : Na 138 ,K 4.4 ,CL 101 ,CO2 25 , GLU 81 ,BUN 13 , CR 0.78 ,CK 127 ,TC 172 ,TG 85 ,HDL 55 ,LDL 100 ,AST 13 ,ALT NA 141, K 3.9, CL 104, CO2 25, GLU 85, BUN 12, CR 0.9, AST 15, ALT SOD 139, K 3.9, CL 104, Co2 27, GLU 123, BUN 17, CR 0.8.06/11/14 TC 201, HDL 56, TR 138, LDL 117, AST 19, ALT 18 EKG (02/18/21): NSR, nonspecific IVCD, NSST changesEKG (11/17/20): NSR, nonspecific IVCD, NSST changesEKG (09/08/20, ) Normal sinus rhythm. Inferior T wave abnormality. When compared to ECG of 05-OCT-2014, Nonspecific T wave abnormality is now seen in lead aVF. EKG (03/15/19): NSR, NSST changesEKG (11/30/18): NSR, poor R progression, NSST changesEKG 08/22/17 : NSR, within normal limitsEK10/22/16 sinus rhythm. P: normal. QRS: normal. ST-T: normal. conclusion: normal ECG. EK06/11/14 Normal sinus rhythm. Normal ECG. When compared with ECG of 11-Jun-2014, no significant change was found. ECHO 11/19/20:LV chamber size is normal,there is borderline LVH,there is normal global systolic function and contractility,the estimated LVEF is 55-60%(normal),E to A mitral inflow reversal ia consistent with possible diastolic dysfunction,there is mild thickening of mitral valve anterior leaflet,there is trace tricuspid regurgitation,there is minimal pulmonic regurgitation. 12/07/18 ECHO: LV chamber size is normal. LV wall thickness is normal. There is normal global systolic function and contractility. The estimated left ventricle ejection fraction is 60-65%(normal). Normal left atrial pressure and diastolic function. The mitral valve leaflet is mildly thickened. There is mild pulmonic regurgitation. RADIOLOGY: CXR: 06/11/14 No evidence of acute pulmonary disease. No infiltrates or consolidation. CT CHEST w/CONTRAST: 06/19/14 No pulmonary embolism. No acute cardiopulmonary process.STRESS TEST: SE: 06/24/14 Negative stress echo. Moderate exercise impairment. Treadmill Nuclear Stress Test 10/03/17 : Negative stress test. Normal LV systolic function. Abnormal stress test. Artifact noted. 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 Submaximal exercise stress test. The sensitivity of the test is limited by the inability to achieve target HR. Exercise tolerance is average. LVEF 66%. 10/22/16 ECHOCARDIOGRAM REPORT: LV chamber size is normal. LV wall thickness is normal. There is normal global systolic function and contractility. The estimated left ventricular ejection fraction is 60-65% (normal). Diastolic filling reveals a pseudonormal pattern (grade 2 diastolic dysfunction). There are no prior studies for comparison. CT, chest, w/o contrast 10-24-2017 10/24/2017: Normal CT chest 11/16/16 VENOUS DOP/DUPLEX BOTH LEGS: Negative for deep vein thrombosis , bilateral lower extremities. Jose Umaña MD [address] [place], [address], [place] - [facility] 01/06/2023 17:26:17 OBGyn Episode No OBEpisode recorded.
--- OUTSIDE RECORDS SUMMARY | 2024-11-04 23:18 | XMS_ITS | Encounter Summary ---
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
--- OUTSIDE RECORDS SUMMARY | 2024-11-04 23:19 | XMS_ITS | Encounter Summary ---
Author Organization [facility] Healthcare Address [address] [place] [address] Care Team Providers Care Blood Donor Unit Assistant Name Role Phone Unavailable Primary Care Provider Unavailabl e Encounter Details Date Type Department Care Team (Latest Contact Info) Description 10/05/2014 4:04 PM SHIP PURSER - 10/05/2014 9:10 PM SHIP PURSER Hospital Encounter [facility] Shagufta Rosario, PA [address] [place] [address] Chest pain; Acute upper respiratory infection; Pleurisy; Personal history of tobacco use, presenting hazards to health; History of allergy to other antibiotic agent Social History Tobacco Use Types Packs/Day Years Used Date Smoking Tobacco: Never Assessed Comments Unknown Sex and Gender Information Value Date Recorded Sex Assigned at Not on file Legal Sex Female 11:50 AM SHIP PURSER Gender Identity Not on file Sexual Orientation Not on file documented as of this encounter Last Filed Vital Signs Vital Sign Reading Time Taken Comments Blood Pressure 123/67 10/05/2014 4:13 PM SHIP PURSER Pulse 52 10/05/2014 4:13 PM SHIP PURSER Temperature 36.9 ??C (98.4 ??F) 10/05/2014 4:13 PM CS T Respiratory Rate - - Oxygen Saturation 98% 10/05/2014 4:13 PM SHIP PURSER Inhaled Oxygen Concentration - - Weight 113.4 kg (250 lb) 10/05/2014 4:13 PM SHIP PURSER Height 162.6 cm (5' 4 ) 10/05/2014 4:13 PM SHIP PURSER Body Mass Index 42.91 10/05/2014 4:13 PM SHIP PURSER documented in this encounter Plan of Treatment Not on file documented as of this encounter Procedures Procedure Name Priority Date/Time Associated Diagnosis Comments TROPONIN I Routine 10/05/2014 7:49 PM SHIP PURSER CBC WITH AUTO DIFFERENTIAL Routine 10/05/2014 4:25 PM SHIP PURSER COMPREHENSIVE METABOLIC PANEL Routine 10/05/2014 4:25 PM SHIP PURSER XR CHEST PA LATERAL 2 VIEWS Routine 10/05/2014 4:20 PM SHIP PURSER documented in this encounter Results * Troponin I (10/05/2014 7:49 PM SHIP PURSER) [facility] Troponin I < 0.300 0.000 - 0.300 ng/mL Comment: Reference using VIRA Chemiluminescence ? Negative: Repeat in 4-6 hours as indicated. 10/05/2014 7:49 PM SHIP PURSER 10/05/2014 7:51 PM SHIP PURSER us Historical Provider LAB BLOOD ORDERABLES Sandra l Result [facility] HISTORICAL RESULTS * (ABNORMAL) Comprehensive metabolic panel (10/05/2014 4:25 PM SHIP PURSER) [facility] Sodium 137 135 - 145 mmol/L Potassium 3.5 3.3 - 5.1 mmol/L Chloride 102 96 - 108 mmol/L Carbon Dioxide 30 22 - 32 mmol/L Anion Gap 5(L) 7 - 16 Glucose 100 70 - 110 mg/dL BUN 14 6 - 20 mg/dL Creatinine 0.8 0.5 - 1.1 mg/dL Kidney Disease Stage > 90 mL/MIN Comment: NOTE; ??The GFR is an estimated value using the creatinine, sex, age, and race of the patient. THE ESTIMATED GFR IS VALIDATED FOR AGES 18-70 YEARS STAGE ?mL/Min ?DESCRIPTION ??1 ?90 mL/min or more ?Normal or elevated GFR ??2 ? 60-89 mL/min ?Mildly decreased GFR ??3 ? 30-59 mL/min ?Moderately decreased GFR ??4 ? 15-29 mL/min ?Severely decreased GFR ??5 ? <15 mL/min ? Kidney failure or on dialysis @ Calcium 9.3 8.6 - 10.0 mg/dL Total Protein 6.9 6.4 - 8.3 g/dL Albumin 4.1 3.5 - 5.2 g/dL Globulin 2.8 2.3 - 3.5 gm/dL Albumin/Globulin Ratio 1.5 1.1 - 1.8 Total Bilirubin 0.3 0.0 - 1.2 mg/dL AST 17 0 - 32 U/L ALT 15 0 - 33 U/L Alkaline Phosphatase 69 35 - 104 U/L 10/05/2014 4:25 PM SHIP PURSER 10/05/2014 4:35 PM SHIP PURSER us Shagufta MAY LAB BLOOD ORDERABLES Final Re sult [facility] HISTORICAL RESULTS * CBC with auto differential (10/05/2014 4:25 PM SHIP PURSER) WBC 8.5 4.6 - 10.2 x10 3/ul RBC 4.34 3.76 - 4.80 x10 6/ul Hemoglobin 12.5 11.0 - 15.0 g/dl Hct 37.8 33.0 - 43.0 % MCV 87.1 80.0 - 97.0 fl MCH 28.8 27.0 - 31.2 pg MCHC 33.1 31.8 - 35.4 g/dl RDW 13.2 11.6 - 14.8 % Plt Count 275 124 - 400 x10 3/ul MPV 9.9 7.4 - 10.4 fl Differential Method AUTOMATED DIFF --------- -- Neut % 57.7 37.0 - 85.0 % Immature Gran % 0.2 0.0 - 3.0 % Lymph % 35.3 5.0 - 45.0 % Callahan % 4.6 3.0 - 15.0 % Eos % 1.6 0.0 - 7.0 % Baso % 0.6 0.0 - 2.0 % ABSOLUTE COUNTS ABSOLUTE COUNTS --------- -- Absolute Neuts (auto) 4.9 1.7 - 8.7 x10 3/ul Immature Gran # 0.0 0.0 - 0.3 x10 3/ul Absolute Lymphs (auto) 3.0 0.2 - 4.6 x10 3/ul Absolute Monos (auto) 0.4 0.1 - 1.5 x10 3/ul Absolute Eos (auto) 0.1 0.0 - 0.7 x10 3/ul Absolute Basos (auto) 0.1 0.0 - 0.2 x10 3/ul 10/05/2014 4:25 PM SHIP PURSER 10/05/2014 4:35 PM SHIP PURSER Shagufta MAY LAB BLOOD ORDERABLES Final Re sult [facility] HISTORICAL RESULTS * XR Chest Pa Lateral 2 Views (10/05/2014 4:20 PM SHIP PURSER) Anatomical Region Laterality Modality Body, Chest N/A Radiographic Rosi ging 10/05/2014 4:20 PM SHIP PURSER Impressions 10/05/2014 4:52 PM SHIP PURSER ?? 1. ??No acute infiltrate. THIS IS AN ELECTRONICALLY VERIFIED REPORT 10/05/2014 4:48 PM: ??Vic Berry M.D. Vy Snow 04:48 PM 04:48 PM [facility] [EOD] Narrative 10/05/2014 4:52 PM SHIP PURSER EXAMINATION: ??PA and lateral chest HISTORY: ??Chest pain COMPARISON: ??06/11/2014, 01/01/2014 and 12/16/2011 FINDINGS: Chest two-view. Normal cardiomediastinal silhouette and pulmonary vasculature. ??No focal infiltrate or effusion. ??Osseous structures demonstrate no focal abnormality. Procedure Note Provider, MD Erin - 03/24/2021 EXAMINATION: PA and lateral chest HISTORY: Chest pain COMPARISON: 06/11/2014, 01/01/2014 and 12/16/2011 FINDINGS: Chest two-view. Normal cardiomediastinal silhouette andpulmonary vasculature. No focal infiltrate or effusion. Osseous structuresdemonstrate no focal abnormality. IMPRESSION: 1. No acute infiltrate. THIS IS AN ELECTRONICALLY VERIFIED REPORT 10/05/2014 4:48 PM: Vic Berry M.D. Vy Snow 04:48 PM 04:48 PM [facility] [EOD] us Shagufta MAY IMG XR PROCEDURES Final Resul t documented in this encounter Visit Diagnoses Diagnosis Chest pain Unspecified chest pain Acute upper respiratory infection Acute upper respiratory infections of unspecified site Pleurisy Pleurisy without mention of effusion or current tuberculosis Personal history of tobacco use, presenting hazards to health History of allergy to other antibiotic agent documented in this encounter
--- OUTSIDE RECORDS SUMMARY | 2024-11-04 23:19 | XMS_ITS | Encounter Summary ---
Author Organization [facility] Healthcare Address [address] [place] [address] Care Team Providers Care Exposure Machine Operator Name Role Phone Unavailable Primary Care Provider Unavailabl e Encounter Details Date Type Department Care Team (Late st Contact Info) Description 10/09/2014 11:55 AM HOME ADMINISTRATOR Hospital Encounter [facility] Jeff Brown MD [address] [place] [address] Shortness of breath Social History Tobacco Use Types Packs/Day Years Used Date Smoking Tobacco: Never Assessed Comments Unknown Sex and Gender Information Value Date Recorded Sex Assigned at Not on file Legal Sex Female 11:50 AM HOME ADMINISTRATOR Gender Identity Not on file Sexual Orientation Not on file documented as of this encounter Plan of Treatment Not on file documented as of this encounter Procedures Procedure Name Priority Date/Time Associated Diagnosis Comments CARDIOPULMONARY DIAGNOSTICS REPORT 10/11/2014 12:00 AM HOME ADMINISTRATOR documented in this encounter Results * CARDIOPULMONARY DIAGNOSTICS REPORT (10/11/2014 12:00 AM HOME ADMINISTRATOR) Narrative 10/11/2014 12:00 AM HOME ADMINISTRATOR Ordered by an unspecified provider. us Historical Provider NURSING COMMUNICATION Fin al Result documented in this encounter Visit Diagnoses Diagnosis Shortness of breath documented in this encounter
--- OUTSIDE RECORDS SUMMARY | 2024-11-04 23:19 | XMS_ITS | Encounter Summary ---
Author Organization [facility] Healthcare Address [address] [place] [address] Care Team Providers Care University Relations Vice President Name Role Phone Neil Stinson MD Primary Care Provid er Encounter Details Date Type Department Care Team (Late st Contact Info) Description 08/03/2022 Orders Only [facility] [address] [place] [address] Bouchra Schneider RN Preop testing (Primary Dx) Social History Tobacco Use Types Packs/Day Years Used Date Smoking Tobacco: Former Smokeless Tobacco: Never Alcohol Use Standard Drinks/Week Comments Yes 0 (1 standard drink = 0.6 oz pur e alcohol) socially Comments No Sex and Gender Information Value Date Recorded Sex Assigned at Not on file Legal Sex Female 11:50 AM FELLER HAND Gender Identity Not on file Sexual Orientation Not on file documented as of this encounter Plan of Treatment Not on file documented as of this encounter Results * COVID-19 Coronavirus RNA Nasopharyngeal (08/23/2022 1:47 PM CDT) COVID-19 RNA Not Detected [facility]ENCE OSBORN Comment: Interpretive Data Synonyms for this test include: PCR and NAAT . ??Testing performed by the [facility] Molecular Infectious Disease Laboratory. The 2018-Novel Coronavirus Assay (COVID-19) Real Time RT-PCR assay is for in vitro diagnostic use under FDA emergency use authorization only. A negative RT-PCR result does not preclude infection with COVID-19 and should not be used as the sole basis for treatment or other patient management decisions. ??Additional sample types have been validated according to CLIA regulations. ?? Current Interpretive Data was last revised on December 11, 2020. Testing performed by: [facility], [address] [place]., [address] Nasopharyngeal 08/23/2022 1: 47 PM CDT 08/23/2022 7:05 PM CDT [facility]URENCE [facility] 08/24/2022 12:34 AM CDT Is the patient experiencing any symptoms consistent with COVID (eg. Fever, cough, shortness of breath)?->No What is the reason for testing?->Screening prior to scheduled??procedure or surgery??(Batched) Kathy Bailey MD LAB MICROBIOLOGY - GENERAL ORDER [place] Final Result Performing Organization Address City/State/[facility] Co de Phone Number LAURENCE [address] [facility] Department [place] [address] documented in this encounter Visit Diagnoses Diagnosis Preop testing- Primary Unspecified pre-operative examination Preop testing Unspecified pre-operative examination documented in this encounter Care Teams University Relations Vice President Relationship Specialty Start Date End Date Neil Stinson MD [address] [place] [address] PCP - General Family Medicine 12/15/21 documented as of this encounter
--- OUTSIDE RECORDS SUMMARY | 2024-11-04 23:19 | XMS_ITS | Encounter Summary ---
Author Organization [facility] Healthcare Address [address] [place] [address] Care Team Providers Care It Professional Name Role Phone Rose Marie Norton NP Primary Care Provider [phone] Encounter Details Date Type Department Care Team (Late st Contact Info) Description 01/08/2021 8:43 AM HOST HOSTESS Hospital Encounter [facility] Rehan Mendoza MD [address] [place] [address] Social History Tobacco Use Types Packs/Day Years Used Date Smoking Tobacco: Former Smokeless Tobacco: Never Alcohol Use Standard Drinks/Week Comments Yes 0 (1 standard drink = 0.6 oz pur e alcohol) socially Comments No Sex and Gender Information Value Date Recorded Sex Assigned at Not on file Legal Sex Female 11:50 AM HOST HOSTESS Gender Identity Not on file Sexual Orientation Not on file documented as of this encounter Medications at Time of Discharge DOK 100 mg capsule TK ONE C PO Q 12 H 0 12/27/2018 naproxen (NAPROSYN) 500 mg tablet TK 1 T PO Q 12 H 0 12/27/2018 documented as of this encounter Plan of Treatment Not on file documented as of this encounter Procedures Procedure Name Priority Date/Time Associated Diagnosis Comments SCAN - LABS 01/14/2021 12:00 AM HOST HOSTESS MISCELLANEOUS LAB TEST Routine 8:58 AM HOST HOSTESS documented in this encounter Results * SCAN - LABS (01/14/2021 12:00 AM HOST HOSTESS) Narrative 01/14/2021 12:00 AM HOST HOSTESS Ordered by an unspecified provider. us Historical Provider MD Final Res ult * - Miscellaneous Lab Test (01/08/2021 8:58 AM HOST HOSTESS) Ref Lab Test Name NICOTINESP [facility] Comment: Note: Results via Scanned Reports in EMR or by paper report only. Specimen sent to Reference lab. Results usually in 2-7 days. 01/08/2021 8:58 AM HOST HOSTESS 01/08/2021 9:10 AM HOST HOSTESS Narrative [facility] - 01/16/2021 11:02 AM HOST HOSTESS [id number] A R S [id number] [facility] Resulting Agency Comment CLI us Rehan Mendoza MD LAB BLOOD ORDERABLES Final R esult [facility] [address] [place] [address], [facility] [phone] documented in this encounter Visit Diagnoses Not on filedocumented in this encounter Care Teams It Professional Relationship Specialty Start Date End Date Rose Marie Norton NP [address] [place] [address] PCP - General 12/18/20 12/14/21 documented as of this encounter
--- OUTSIDE RECORDS SUMMARY | 2024-11-04 23:19 | XMS_ITS | Encounter Summary ---
Author Organization [facility] Facility Care Team Providers Care Wrapper Sorter Name Role Phone Rose Marie Norton NP Primary Care Provider [phone] Encounter Details Date Type Department Care Team (Latest Contact Info) Description 02/19/2019 Travel Social History Tobacco Use Types Packs/Day Years Used Date Smoking Tobacco: Former Smokeless Tobacco: Never Alcohol Use Standard Drinks/Week Comments Yes 0 (1 standard drink = 0.6 oz pur e alcohol) socially Comments No Sex and Gender Information Value Date Recorded Sex Assigned at Not on file Legal Sex Female 11:50 AM FITTER HAND Gender Identity Not on file Sexual Orientation Not on file documented as of this encounter Plan of Treatment Not on file documented as of this encounter Visit Diagnoses Not on filedocumented in this encounter Care Teams Wrapper Sorter Relationship Specialty Start Date End Date Rose Marie Norton NP [address] [place] [address] PCP - General 12/22/18 09/07/20 documented as of this encounter
--- OUTSIDE RECORDS SUMMARY | 2024-11-04 23:19 | XMS_ITS | Encounter Summary ---
Author Organization [facility] Healthcare Address [address] [place] [address] Care Team Providers Care Peoplesoft Consultant Name Role Phone Unavailable Primary Care Provider Unavailabl e Encounter Details Date Type Department Care Team (Late st Contact Info) Description 11/03/2017 3:26 PM FINISH PAINTER - 11/06/2018 11:59 PM FINISH PAINTER Hospital Encounter [facility] OP Darius Vines MD [address] [facility] [address] [address] Social History Tobacco Use Types Packs/Day Years Used Date Smoking Tobacco: Never Assessed Comments Unknown Sex and Gender Information Value Date Recorded Sex Assigned at Not on file Legal Sex Female 11:50 AM FINISH PAINTER Gender Identity Not on file Sexual Orientation Not on file documented as of this encounter Plan of Treatment Not on file documented as of this encounter Visit Diagnoses Not on filedocumented in this encounter
--- OUTSIDE RECORDS SUMMARY | 2024-11-04 23:19 | XMS_ITS | Encounter Summary ---
Author Organization [facility] Healthcare Address [address] [place] [address] Care Team Providers Care Forestry And Wildlife Manager Name Role Phone Rose Marie Norton NP Primary Care Provider [phone] Encounter Details Date Type Department Care Team (Late st Contact Info) Description 12/18/2020 11:04 AM DENTAL FINANCIAL COORDINATOR Hospital Encounter [facility] Rehan Mendoza MD [address] [place] [address] Social History Tobacco Use Types Packs/Day Years Used Date Smoking Tobacco: Former Smokeless Tobacco: Never Alcohol Use Standard Drinks/Week Comments Yes 0 (1 standard drink = 0.6 oz pur e alcohol) socially Comments No Sex and Gender Information Value Date Recorded Sex Assigned at Not on file Legal Sex Female 11:50 AM DENTAL FINANCIAL COORDINATOR Gender Identity Not on file Sexual Orientation [...] Date/Time Associated Diagnosis Comments SCAN - LABS 12/24/2020 12:00 AM DENTAL FINANCIAL COORDINATOR FERRITIN Routine 12/18/2020 11:16 AM DENTAL FINANCIAL COORDINATOR MISCELLANEOUS LAB TEST Routine 11:11 AM DENTAL FINANCIAL COORDINATOR documented in this encounter Results * SCAN - LABS (12/24/2020 12:00 AM DENTAL FINANCIAL COORDINATOR) Narrative 12/24/2020 12:00 AM DENTAL FINANCIAL COORDINATOR Ordered by an unspecified provider. Historical Provider MD Final Res ult * Ferritin (12/18/2020 11:16 AM DENTAL FINANCIAL COORDINATOR) Ferritin 92.6 15.0 - 150.0 ng/mL [facility] 12/18/2020 11:1 6 AM DENTAL FINANCIAL COORDINATOR 12/18/2020 11:31 AM DENTAL FINANCIAL COORDINATOR Narrative Resulting Agency Comment CLI Rehan Mendoza MD LAB BLOOD ORDERABLES Final R esult Performing Organization Address [facility] Co de Phone Number [address] [phone] * - Miscellaneous Lab Test (12/18/2020 11:11 AM DENTAL FINANCIAL COORDINATOR) Ref Lab Test Name NICOTINE AND METABOL [facility] Comment: Note: Results via Scanned Reports in EMR or by paper report only. Specimen sent to Reference lab. Results usually in 2-7 days. 12/18/2020 11:1 1 AM DENTAL FINANCIAL COORDINATOR 12/18/2020 2:10 PM DENTAL FINANCIAL COORDINATOR Narrative [facility] - 12/30/2020 4:53 PM DENTAL FINANCIAL COORDINATOR GR A R P [id number] NICOTINE AND METABOLITES PLASMA Resulting Agency Comment CLI Rehan Mendoza MD LAB BLOOD ORDERABLES Edited Result - Final Performing Organization Address City/[facility] Co de Phone Number [address] [phone] documented in this encounter Visit Diagnoses Not on filedocumented in this encounter Care Teams Forestry And Wildlife Manager Relationship Specialty Start Date End Date Rose Marie Norton, CHIEF GREEN OFFICER [address] [place] [address] PCP - General 12/18/20 2 documented as of this encounter
--- OUTSIDE RECORDS SUMMARY | 2024-11-04 23:19 | XMS_ITS | Encounter Summary ---
Author Organization [facility] Facility Care Team Providers Care Tank Processor Name Role Phone Rose Marie Norton NP Primary Care Provider [phone] Rehan Mendoza MD Primary Care Provider [phone] Rose Marie Norton INSPECTOR MULTIFOCAL LENS Primary Care Provider [phone] Neil Stinson MD Primary Care Provid er Encounter Details Date Type Department Care Team (Latest Contact Info) Description 12/26/2018 Orders Only [facility] ProviderErin MD [address] [place] [id number] Social History Tobacco Use Types Packs/Day Years Used Date Smoking Tobacco: Never Assessed Comments Unknown Sex and Gender Information Value Date Recorded Sex Assigned at Not on file Legal Sex Female 11:50 AM HEADER OPERATOR Gender Identity Not on file Sexual Orientation Not on file documented as of this encounter Plan of Treatment Not on file documented as of this encounter Procedures Procedure Name Priority Date/Time Associated Diagnosis Comments SCAN - LABS 01/16/2019 12:00 AM CDT documented in this encounter Results * SCAN - LABS (01/16/2019 12:00 AM CDT) Narrative 01/16/2019 12:00 AM CDT Ordered by an unspecified provider. Historical Provider Final Res ult documented in this encounter Visit Diagnoses Not on filedocumented in this encounter Care Teams Tank Processor Relationship Specialty Start Date End Date Rose Marie Norton INSPECTOR MULTIFOCAL LENS [address] [place] [address] PCP - General 12/22/18 09/07/20 Rehan Mendoza MD [address] [place] [address] PCP - General 09/08/20 12/17/20 Rose Marie Norton NP [address] [place] [address] PCP - General 12/18/20 12/14/21 Neil Stinson MD [facility] [address] [place] [id number] PCP - General Family Medicine 12/15/21 documented as of this encounter
--- OUTSIDE RECORDS SUMMARY | 2024-11-04 23:19 | XMS_ITS | Encounter Summary ---
Author Organization [facility] Address [address] [place] [address] Care Team Providers Care Box Storage Worker Name Role Phone Rose Marie Norton NP Primary Care Provider [phone] Reason for Visit * Reason Comments Post-op Follow-up WILLIAN LEMOS 12/26/2018 Encounter Details Date Type Department Care Team (Late st Contact Info) Description 02/19/2019 10:15 AM CDT Clinical Support [facility] Obstetrical Gynecology [address] [place] [address] Robyn Ramírez DO [address], [place] [id number] H/O hysterectomy for benign disease (Primary Dx) Social History Tobacco Use Types Packs/Day Years Used Date Smoking Tobacco: Former Smokeless Tobacco: Never Alcohol Use Standard Drinks/Week Comments Yes 0 (1 standard drink = 0.6 oz pur e alcohol) socially Comments No Sex and Gender Information Value Date Recorded Sex Assigned at Not on file Legal Sex Female 11:50 AM BEVERAGE STEWARD Gender Identity Not on file Sexual Orientation Not on file documented as of this encounter Last Filed Vital Signs Vital Sign Reading Time Taken Comments Blood Pressure 110/72 02/19/2019 10:12 AM CDT Pulse - - Temperature - - Respiratory Rate - - Oxygen Saturation - - Inhaled Oxygen Concentration - - Weight 109.2 kg (240 lb 12.8 oz) 2018 10:12 AM CDT Height - - Body Mass Index 42.66 01/10/2019 1:30 PM BEVERAGE STEWARD documented in this encounter Progress Notes * Robyn Ramírez, DO - 02/19/2019 10:15 AM CDT Images from the original note were not included. POST OP VISIT WINCHER HPI: Maria Del Carmen Ray is a 43 y.o. year old who presents for post-op appt. The pt is doing well with no complaints. She is back to work and is doing fine. Surgery: RALH BSO Date: 12/26/18 POD# : 8 wks ROS: denies fevers, chills, nausea, vomiting. denies vaginal bleeding. Pain is well controlled on no medication. Objective: BP 110/72 Wt 240 lb 12.8 oz (109.2 kg) ? No BMI 42.66 kg/m?? Physical Exam Constitutional: She is oriented to person, place, and time and well-developed, well-nourished, and in no distress. HENT: Head: Normocephalic and atraumatic. Eyes: No scleral icterus. Neck: Neck supple. Cardiovascular: Normal rate, regular rhythm and normal heart sounds. Exam reveals no gallop and no friction rub. No murmur heard. Pulmonary/Chest: Effort normal and breath sounds normal. She has no wheezes. She has no rales. Abdominal: Soft. Bowel sounds are normal. She exhibits no distension. There is no tenderness. Thereis no rebound and no guarding. Incisions healed Genitourinary: Vagina normal and vulva normal. Genitourinary Comments: Vaginal cuff healed. Musculoskeletal: She exhibits no edema. Neurological: She is alert and oriented to person, place, and time. Gait normal. Skin: Skin is warm and dry. Psychiatric: Mood, memory, affect and judgment normal. Past Medical History: Diagnosis Date ??? Abnormal uterine bleeding ??? Anxiety ??? GERD (gastroesophageal reflux disease) ??? Hypertension ??? Sciatic nerve pain Past Surgical History: Procedure Laterality Date ??? APPENDECTOMY ??? BILATERAL SALPINGOOPHORECTOMY 12/26/2018 ? ? D&C FIRST TRIMESTER / TX INCOMPLETE / MISSED / SEPTIC / INDUCED ??? HYSTERECTOMY 12/26/2018 Family History Problem Relation Age of Onset ??? No Known Problems Brother ??? No Known Problems Daughter ??? No Known Problems Son ??? No Known Problems Son ??? No Known Problems Daughter ??? No Known Problems Daughter reports that she has quit smoking. She has never used smokeless tobacco. She reports that she drinks alcohol. She reports that she does not use drugs. Assessment and Plan: Maria Del Carmen was seen today for post-op follow-up. Diagnoses and all orders for this visit: H/O hysterectomy for benign disease The pt is doing very well. Vaginal cuff is healed. She can resume all normal functions. Pt voiced understanding. 02/19/19 documented in this encounter Plan of Treatment Not on file documented as of this encounter Visit Diagnoses Diagnosis H/O hysterectomy for benign disease- Primary documented in this encounter Discontinued Medications Medication Sig Discontinue Reason Start Date End Da te HYDROcodone-acetaminophe n (NORCO) 5-325 mg per tablet TAKE 1 TO 2 TABLETS BY MOUTH EVERY 4 HOURS NEEDED FOR PAIN Therapy completed 12/27/2018 02/19/2019 documented as of this encounter Care Teams Box Storage Worker Relationship Specialty Start Date End Date Rose Marie Norton NP [address] [place] [address] PCP - General 12/22/18 09/07/20 documented as of this encounter
--- OUTSIDE RECORDS SUMMARY | 2024-11-04 23:19 | XMS_ITS | Encounter Summary ---
Author Organization [facility] Healthcare Address [address] [place] [address] Care Team Providers Care Encyclopedia Research Worker Name Role Phone Unavailable Primary Care Provider Unavailabl e Encounter Details Date Type Department Care Team (Latest Contact Info) Description 02/21/2016 5:22 PM CDT - 02/21/2016 11:20 PM CDT [facility] [address] [address] Threatened ; Pre-existing hypertension complicating in first trimester; Less than 8 weeks gestation of ; Other oysterman (current) drug therapy Social History Tobacco Use Types Packs/Day Years Used Date Smoking Tobacco: Never Assessed Comments Unknown Sex and Gender Information Value Date Recorded Sex Assigned at Not on file 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 Gender Identity Not on file Sexual Orientation Not on file documented as of this encounter Last Filed Vital Signs Vital Sign Reading Time Taken Comments Blood Pressure 110/64 02/21/2016 5:24 PM CDT Pulse 65 02/21/2016 5:24 PM CDT Temperature 36.7 ??C (98.1 ??F) 02/21/2016 5:24 PM CD T Respiratory Rate - - Oxygen Saturation 98% 02/21/2016 5:24 PM CDT Inhaled Oxygen Concentration - - Weight 113.4 kg (250 lb) 02/21/2016 5:24 PM CDT Height 160 cm (5' 3 ) 02/21/2016 5:24 PM CDT Body Mass Index 44.29 02/21/2016 5:24 PM CDT documented in this encounter Plan of Treatment Not on file documented as of this encounter Procedures Procedure Name Priority Date/Time Associated Diagnosis Comments CBC WITH AUTO DIFFERENTIAL Routine 02/21/2016 6:29 PM CDT HCG, BLOOD, QUANTITATIVE Routine 02/21/2016 6:29 PM CDT COMPREHENSIVE METABOLIC PANEL Routine 02/21/2016 6:29 PM CDT US OB TRANSVAGINAL Routine 02/21/2016 12 :00 AM CDT documented in this encounter Results * (ABNORMAL) Comprehensive metabolic panel (02/21/2016 6:29 PM CDT) Sodium 139 135 - 145 mmol/L 02/21/2016 7:02 PM [facility] HISTORICAL RESULTS Potassium 4.0 3.3 - 5.1 mmol/L Chloride 103 96 - 108 mmol/L 02/21/2016 7:02 PM [facility] HISTORICAL RESULTS Carbon Dioxide 25 22 - 32 mmol/L Anion Gap 11 7 - 16 Glucose 98 70 - 100 mg/dL BUN 17 6 - 20 mg/dL Creatinine 1.2(H) 0.5 - 1.1 mg/dL Comment: NOTE: Estimated GFR (Cockroft-Gault) will NOT be calculated unless patient Height and Weight were entered. Also, Kidney Disease Stage (GFR) and Estimated GFR (Cockroft-Gault) will NOT be calculated if Creatinine result is <0.2. Kidney Disease Stage 64 mL/MIN Comment: NOTE; ??The GFR is an [...] ? Kidney failure or on dialysis @ Est GFR (Cockcroft-G) 76 ml/MIN Calcium 8.7 8.6 - 10.0 mg/dL 02/21/2016 7:02 PM [facility] HISTORICAL RESULTS Total Protein 6.8 6.4 - 8.3 g/dL Albumin 3.9 3.5 - 5.2 g/dL Globulin 2.9 2.3 - 3.5 gm/dL Albumin/Globulin Ratio 1.3 1.1 - 1.8 Total Bilirubin 0.4 0.0 - 1.2 mg/dL 02/21/2016 7:02 PM [facility] HISTORICAL RESULTS AST 16 0 - 32 U/L 02/21/2016 7:02 PM [facility] HISTORICAL RESULTS ALT 17 0 - 33 U/L 02/21/2016 7:02 PM [facility] [email or web address] HISTORICAL RESULTS Alkaline Phosphatase 63 35 - 104 U/L 02/21/2016 6:29 PM CDT 02/21/2016 6:35 PM CDT Peña Watt MD LAB BLOOD ORDERABLES Sandra l Result [facility] HISTORICAL RESULTS * (ABNORMAL) CBC with auto differential (02/21/2016 6:29 PM CDT) WBC 9.1 4.6 - 10.2 x10 3/ul 02/21/2016 6:39 PM CDT [facility] HISTORICAL RESULTS RBC 4.82(H) 3.76 - 4.80 x10 6/ul 02/21/2016 6:[address] [facility] [employer] HISTORICAL RESULTS Hemoglobin 13.3 11.0 - 15.0 g/dl 02/21/2016 6:[address] [facility] [employer] HISTORICAL RESULTS Hct 41.4 33.0 - 43.0 % 02/21/2016 6:39 PM CDT [facility] HISTORICAL RESULTS MCV 85.9 80.0 - 97.0 fl 02/21/2016 6:39 PM CDT [facility] HISTORICAL RESULTS MCH 27.6 27.0 - 31.2 pg 02/21/2016 6:39 PM CDT [facility] [employer] HISTORICAL RESULTS MCHC 32.1 31.8 - 35.4 g/dl 02/21/2016 6:39 PM CDT [facility] [email or web address] HISTORICAL RESULTS RDW 13.8 11.6 - 14.8 % 02/21/2016 6:[address] [facility] [employer] HISTORICAL RESULTS Plt Count 248 124 - 400 x10 3/ul 02/21/2016 6:39 PM CDT [facility] [employer] HISTORICAL RESULTS MPV 9.7 7.4 - 10.4 fl 02/21/2016 6:39 PM CDT [facility] [employer] HISTORICAL RESULTS Neut % 66.0 37.0 - 85.0 % 02/21/2016 6:39 PM CDT [facility] [employer] HISTORICAL RESULTS Immature Gran % 0.3 0.0 - 3.0 % 02/21/2016 6:39 PM T [facility] HISTORICAL RESULTS Lymph % 26.8 5.0 - 45.0 % 02/21/2016 6:39 PM T [facility] HISTORICAL RESULTS Pettis % 4.9 3.0 - 15.0 % 02/21/2016 6:39 PM T [facility] HISTORICAL RESULTS Eos % 1.5 0.0 - 7.0 % 02/21/2016 6:39 PM T [facility] HISTORICAL RESULTS Baso % 0.5 0.0 - 2.0 % 02/21/2016 6:39 PM T [facility] HISTORICAL RESULTS Absolute Neuts (auto) 6.0 1.7 - 8.7 x10 3/ul Immature Gran # 0.0 0.0 - 0.3 x10 3/ul Absolute Lymphs (auto) 2.5 0.2 - 4.6 x10 3/ul 02/21/2016 6:39 PM T [facility] HISTORICAL RESULTS Absolute Monos (auto) 0.5 0.1 - 1.5 x10 3/ul Absolute Eos (auto) 0.1 0.0 - 0.7 x10 3/ul Absolute Basos (auto) 0.1 0.0 - 0.2 x10 3/ul 02/21/2016 6:29 PM CDT 02/21/2016 6:35 PM CDT us Peña Watt MD LAB BLOOD ORDERABLES Sandra vani Result [facility] HISTORICAL RESULTS * (ABNORMAL) hCG, blood, quantitative (02/21/2016 6:29 PM CDT) Beta HCG, Quant 78.4(H) 0.0 - 1.0 mIU/mL 02/21/2016 7:07 PM CDT [facility] HISTORICAL RESULTS Comment: Weeks of preg ?BHCG ? Weeks of preg ? BHCG ?3 ? 5.8-71.2 ?10 ? 46,509-186,977 ?4 ? 9.5-750 ? 12 ? 27,832-210,612 ?5 ? 217-7,138 ? 14 ? 13,950-62,530 ?6 ? 158-31,795 ?15 ? 12,039-70,971 ?7 ?3,697-163,563 ?16 ?9,040-56,451 ?8 ? 32,065-149,571 ?17 ?8,175-55,868 ?9 ? 63,803-151,410 ?18 ?8,099-58,176 Post-menopause: ??0-8.3 ?METHOD: ??[place] ECLIA Intended for the early detection of . ? 02/21/2016 6:29 PM CDT 02/21/2016 6:35 PM CDT us Peña Watt MD LAB BLOOD ORDERABLES Sandra ludwig Result [facility] HISTORICAL RESULTS * US Ob Transvaginal (02/21/2016 12:00 AM CDT) Anatomical Region Laterality Modality Abdomen N/A Ultrasound 02/21/2016 Impressions 02/21/2016 9:05 PM CDT ?? 1. ??No evidence of a gestational sac within the endometrial canal. 2. ??Endometrial canal appears distended with heterogeneous echotexture material within it. ??No flow is seen to suggest retained products of conception. ??This could be related to hemorrhage. ??Follow-up ultrasound in 1 week is recommended to evaluate for resolution as well as the possibility that this could represent an early . ??Correlation with serial Beta hCG values is recommended. THIS IS AN ELECTRONICALLY VERIFIED REPORT 02/21/2016 9:01 PM: ??Jaden Ren M.D. ?? Jaden Ren M.D. AT:at 09:01 PM 09:01 PM [facility] [EOD] Narrative 02/21/2016 9:05 PM CDT EXAMINATION: ULTRASOUND OF THE PELVIS DATE: ??02/21/2016 COMPARISON: ??None available from this . HISTORY: ??Cramping and heavy bleeding beginning today. ??Positive test. TECHNIQUE: Multiple sonographic images of the pelvis were obtained. ??Images were obtained transvaginally. FINDINGS: ?? The uterus measures approximately 10.6 x 5.6 x 5.6 cm. The uterus demonstrates unremarkable parenchymal echotexture. ??The endometrial stripe measures 2 cm in diameter. Endometrial canal appears distended with heterogeneous echotexture material within it. ??No definite vascular flow is seen within the endometrial canal. ??There is no evidence of a gestational sac or fluid collection within the endometrial canal. ??Water to Nabothian cysts are identified. Ovaries are not visualized. There is no free pelvic fluid. Procedure Note Provider, MD Erin - 03/24/2021 EXAMINATION: ULTRASOUND OF THE PELVIS DATE: 02/21/2016 COMPARISON: None available from this . HISTORY: Cramping and heavy bleeding beginning today. Positive test. TECHNIQUE: Multiple sonographic images of the pelvis were obtained.Images were obtained transvaginally. FINDINGS: The uterus measures approximately 10.6 x 5.6 x 5.6 cm. The uterusdemonstrates unremarkable parenchymal echotexture. The endometrial stripe measures 2cm in diameter. Endometrial canal appears distended with heterogeneousechotexture material within it. No definite vascular flow is seen within theendometrial canal. There is no evidence of a gestational sac or fluid collectionwithin the endometrial canal. Water to Nabothian cysts are identified. Ovaries are not visualized. There is no free pelvic fluid. IMPRESSION: 1. No evidence of a gestational sac within the endometrial canal. 2. Endometrial canal appears distended with heterogeneous echotexture material within it. No flow is seen to suggest retained products of conception. This could be related to hemorrhage. Follow-up ultrasound in1 week is recommended to evaluate for resolution as well as the possibilitythat this could represent an early . Correlation with serial Beta hCG values is recommended. THIS IS AN ELECTRONICALLY VERIFIED REPORT 02/21/2016 9:01 PM: Jaden Ren M.D. Jaden Ren M.D. AT:at 09:01 PM 09:01 PM [facility] [EOD] Randy Greene DO IMG OB US PROCEDURES Final Result documented in this encounter Visit Diagnoses Diagnosis Threatened Pre-existing hypertension complicating in first trimester Less than 8 weeks gestation of Other oysterman (current) drug therapy documented in this encounter
--- OUTSIDE RECORDS SUMMARY | 2024-11-04 23:19 | XMS_ITS | Encounter Summary ---
Author Organization [facility] Healthcare Address [address] [place] [address] Care Team Providers Care Needle Control Cheniller Name Role Phone Rose Marie Norton NP Primary Care Provider [phone] Encounter Details Date Type Department Care Team (Late st Contact Info) Description 08/19/2020 10:06 AM CDT Hospital Encounter [facility] Rose Marie Norton, LOADING UNIT TOOL SETTER [address] [place] [address] Social History Tobacco Use Types Packs/Day Years Used Date Smoking Tobacco: Former Smokeless Tobacco: Never Alcohol Use Standard Drinks/Week Comments Yes 0 (1 standard drink = 0.6 oz pur e alcohol) socially Comments No Sex and Gender Information Value Date Recorded Sex Assigned at Not on file 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 Gender Identity Not on file Sexual Orientation [...] Procedure Name Priority Date/Time Associated Diagnosis Comments US BREAST LEFT LIMITED 08/19/2020 11:10 AM CDT DIAGNOSTIC MAMMOGRAM BILATERAL W BASSEM 08/19/2020 10:07 AM CDT GENERAL RADIOLOGY REPORT 08/19/2020 12:00 AM CDT GENERAL RADIOLOGY REPORT 08/19/2020 12:00 AM CDT documented in this encounter Results * US Breast Left Limited (08/19/2020 11:10 AM CDT) Anatomical Region Laterality Modality Breast Left Ultrasound 08/19/2020 11:1 7 AM CDT Narrative 08/19/2020 11:29 AM CDT Patient Name: MARIA DEL CARMEN CERVANTES ?Ordering Dr: Rose Marie Norton ?? D.O.B: 1975 ? Exam Date: 08/19/20 ?? 1110 ?? Age: 44 ?Sex: Female ? MR#: [id number] ?? Loc: ? RADIOLOGY REPORT ?? Order #[id number] ?? [facility] Ultrasound ? US Breast Limited Left ? Signed ? - US ?? ULTRASOUND OF LEFT BREAST: 08/19/2020 ? Please refer to the diagnostic mammography report of the same date. ??The ?? reports are combined. ?? IMPRESSION: BIRADS 1:NEGATIVE ? Electronically signed by: ?Kevin Pierre ? rl/:08/19/2020 11:29:29 ? Shop Superintendent: Sof[facility]atoro [facility] ? Reading location: ?? Ultrasound BI-RADS: 1 Negative ? REPORT ELECTRONICALLY SIGNED IN OTHER VENDOR SYSTEM ?? Resulting Agency Comment O Procedure Note Kevin Kendall MD - 08/19/2020 Patient Name: JANET CERVANTESSHELBY Ross Dr: Rose Marie Norton D.O.B: 1975 Exam Date: 08/19/20 1110 Age: 44 Sex: Female MR#: [id number] Loc: RADIOLOGY REPORT Order #[id number] [facility] Ultrasound US Breast Limited Left Signed - US ULTRASOUND OF LEFT BREAST: 08/19/2020 Please refer to the diagnostic mammography report of the same date.The reports are combined. IMPRESSION: BIRADS 1:NEGATIVE Electronically signed by: Kevin Pierre rl/:08/19/2020 11:29:29 Shop Superintendent: [facility] Reading location: Ultrasound BI-RADS: 1 Negative REPORT ELECTRONICALLY SIGNED IN OTHER VENDOR SYSTEM us Rose Marie Norton LOADING UNIT TOOL SETTER IMG MAMMO PROCEDURES Final Resul t * Diagnostic Mammogram Bilateral W Bassem (08/19/2020 10:07 AM CDT) Anatomical Region Laterality Modality Breast Bilateral Mammography 08/19/2020 10:5 4 AM CDT Narrative 08/19/2020 11:28 AM CDT Patient Name: MARIA DEL CARMEN CERVANTES ?Ordering Dr: Rose Marie Norton ?? D.O.B: 1975 ? Exam Date: 08/19/20 ?? 1007 ?? Age: 44 ?Sex: Female ? MR#: [id number] ?? Loc: ? RADIOLOGY REPORT ?? Order #[id number] ?? [facility] ? Jina Bilat Diagnostic 3D ? [...] by: ?Kevin Pierre ? rl/:08/19/2020 11:28:52 ? Shop Superintendent: Aimee ROBERSON (Flory)(Vickie), [facility] ?? letter sent: Normal Exam Abnormal History ? Reading location: ?? BI-RADS: 1 Negative ? REPORT ELECTRONICALLY SIGNED IN OTHER VENDOR SYSTEM ?? Resulting Agency Comment O Procedure Note Kevin Kendall MD - 08/19/2020 Patient Name: HELENMARIA DEL CARMEN Dr: Rose [facility] 1975 Exam Date: 08/19/20 1007 Age: 44 Sex: Female MR#: [id number] Loc: RADIOLOGY REPORT Order #[id number] [facility] Jina Bilat Diagnostic 3D Signed [...] Electronically signed by: Kevin Pierre rl/:08/19/2020 11:28:52 Shop Superintendent: Aimee Fishman RT (R)(M), [facility] letter sent: Normal Exam Abnormal History Reading location: BI-RADS: 1 Negative REPORT ELECTRONICALLY SIGNED IN OTHER VENDOR SYSTEM Rose Marie Norton NP IMG MAMMO PROCEDURES Final Resul t * GENERAL RADIOLOGY REPORT (08/19/2020 12:00 AM CDT) Anatomical Region Laterality Modality Radiographic Rosi ging Narrative 08/19/2020 12:00 AM CDT Ordered by an unspecified provider. us Historical Provider IMG XR PROCEDURES Final R esult * GENERAL RADIOLOGY REPORT (08/19/2020 12:00 AM CDT) Anatomical Region Laterality Modality Radiographic Rosi ging Narrative 08/19/2020 12:00 AM CDT Ordered by an unspecified provider. Historical Provider MD IMG XR PROCEDURES Final R esult documented in this encounter Visit Diagnoses Not on filedocumented in this encounter Care Teams Needle Control Cheniller Relationship Specialty Start Date End Date Rose Marie Norton LOADING UNIT TOOL SETTER [address] [place] [address] PCP - General 12/22/18 09/07/20 documented as of this encounter
--- OUTSIDE RECORDS SUMMARY | 2024-11-04 23:19 | XMS_ITS | Encounter Summary ---
Author Organization [facility] Healthcare Address [address] [place] [address] Care Team Providers Care Masonry Contractor Name Role Phone Unavailable Primary Care Provider Unavailabl e Encounter Details Date Type Department Care Team (Late st Contact Info) Description 06/28/2014 9:50 AM CDT Hospital Encounter [facility] Jeff Fernandez MD [address] [place] [id number] Shortness of breath; Cough Social History Tobacco Use Types Packs/Day Years Used Date Smoking Tobacco: Never Assessed Comments Unknown Sex and Gender Information Value Date Recorded Sex Assigned at Not on file 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 us Historical Provider NURSING COMMUNICATION Fin al Result * CARDIOPULMONARY DIAGNOSTICS REPORT (06/28/2014 12:00 AM CDT) Narrative 06/28/2014 12:00 AM CDT Ordered by an unspecified provider. us Historical Provider MD NURSING COMMUNICATION Fin al Result documented in this encounter Visit Diagnoses Diagnosis Shortness of breath Cough documented in this encounter
--- OUTSIDE RECORDS SUMMARY | 2024-11-04 23:19 | XMS_ITS | Encounter Summary ---
Author Organization [facility] Healthcare Address [address] [place] [address] Care Team Providers Care Residential Real Estate Sales Manager Name Role Phone Unavailable Primary Care Provider Unavailabl e Encounter Details Date Type Department Care Team (Late st Contact Info) Description 08/14/2014 12:19 PM CDT Hospital Encounter [facility] Jeff Fernandez MD [address] [place] [address] Shortness of breath Social History Tobacco Use Types Packs/Day Years Used Date Smoking Tobacco: Never Assessed Comments Unknown Sex and Gender Information Value Date Recorded Sex Assigned at Not on file 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
--- OUTSIDE RECORDS SUMMARY | 2024-11-04 23:19 | XMS_ITS | Encounter Summary ---
Author Organization [facility] Healthcare Address [address] [place] [address] Care Team Providers Care Patent Legal Assistant Name Role Phone Rose Marie Norton NP Primary Care Provider [phone] Encounter Details Date Type Department Care Team (Late st Contact Info) Description 12/26/2018 10:26 AM EYEGLASS LENS GENERATOR - 12/27/2018 9:22 AM EYEGLASS LENS GENERATOR Hospital Encounter [facility] Robyn Ramírez Lolymayelin, DO [address] [place], [place] [id number] Discharge Disposition: Discharge to home or self care Social History Tobacco Use Types Packs/Day Years Used Date Smoking Tobacco: Never Assessed Comments Unknown Sex and Gender Information Value Date Recorded Sex Assigned at Not on file Legal Sex Female 11:50 AM EYEGLASS LENS GENERATOR Gender Identity Not on file Sexual Orientation Not on file documented as of this encounter Last Filed Vital Signs Vital Sign Reading Time Taken Comments Blood Pressure 124/81 12/25/2018 3:41 PM EYEGLASS LENS GENERATOR Pulse 82 12/25/2018 3:41 PM EYEGLASS LENS GENERATOR Temperature 37.1 ??C (98.8 ??F) 12/25/2018 3:41 PM CS T Respiratory Rate - - Oxygen Saturation 97% 12/25/2018 3:41 PM EYEGLASS LENS GENERATOR Inhaled Oxygen Concentration - - Weight 108.4 kg (239 lb) 12/25/2018 3:41 PM EYEGLASS LENS GENERATOR Height 162.6 cm (5' 4 ) 12/25/2018 3:41 PM EYEGLASS LENS GENERATOR Body Mass Index 41.02 12/25/2018 3:41 PM EYEGLASS LENS GENERATOR documented in this encounter Medications at Time of Discharge DOK 100 mg capsule TK ONE C PO Q 12 H 0 12/27/2018 naproxen (NAPROSYN) 500 mg tablet TK 1 T PO Q 12 H 0 12/27/2018 HYDROcodone-aceta minophen (NORCO) 5-325 mg per tablet TAKE 1 TO 2 TABLETS BY MOUTH EVERY 4 HOURS NEEDED FOR PAIN 0 12/27/2018 02/19/2019 documented as of this encounter Discharge Disposition Disposition Code Departure Means Destination Discharge to home or self care documented in this encounter Plan of Treatment Not on file documented as of this encounter Procedures Procedure Name Priority Date/Time Associated Diagnosis Comments HEMOGLOBIN AND HEMATOCRIT Routine 12/27/2018 6:00 AM EYEGLASS LENS GENERATOR SCAN - PATHOLOGY 12/27/2018 12:0 0 AM EYEGLASS LENS GENERATOR documented in this encounter Results * Hemoglobin and hematocrit (12/27/2018 6:00 AM EYEGLASS LENS GENERATOR) Hemoglobin 12.0 11.9 - 15.5 g/dL 12/27/2018 6:15 AM EYEGLASS LENS GENERATOR [facility] HISTORICAL RESULTS Hct 36.4 35.6 - 45.5 % 12/27/2018 6:15 AM EYEGLASS LENS GENERATOR [facility] HISTORICAL RESULTS 12/27/2018 6:00 AM EYEGLASS LENS GENERATOR 12/27/2018 6:07 AM EYEGLASS LENS GENERATOR Robyn Ramírez DO LAB BLOOD ORDERABLES F inal Result [facility] HISTORICAL RESULTS * SCAN - PATHOLOGY (12/27/2018 12:00 AM EYEGLASS LENS GENERATOR) Narrative 12/27/2018 12:00 AM EYEGLASS LENS GENERATOR Ordered by an unspecified provider. Historical Provider MD Final Res ult documented in this encounter Visit Diagnoses Not on filedocumented in this encounter Care Teams Patent Legal Assistant Relationship Specialty Start Date End Date Rose Marie Norton NP [address] [place] [address] PCP - General 12/22/18 09/07/20 documented as of this encounter
--- OUTSIDE RECORDS SUMMARY | 2024-11-04 23:19 | XMS_ITS | Encounter Summary ---
Author Organization [facility] Healthcare Address [address] [place] [address] Care Team Providers Care Roll Up Guider Operator Name Role Phone Unavailable Primary Care Provider Unavailabl e Encounter Details Date Type Department Care Team (Late st Contact Info) Description 06/19/2014 3:46 PM CDT Hospital Encounter [facility] Jeff Fernandez MD [address] [place] [id number] Painful respiration Social History Tobacco Use Types Packs/Day Years Used Date Smoking Tobacco: Never Assessed Comments Unknown Sex and Gender Information Value Date Recorded Sex Assigned at Not on file 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 ??No pulmonary embolism. ??2. ??No acute cardiopulmonary process. THIS IS AN ELECTRONICALLY VERIFIED REPORT 06/19/2014 4:58 PM: ??Luis Rondon M.D. Luis Rondon M.D. CN:clement 04:58 PM 04:[address] [facility] [EOD] Narrative 06/19/2014 5:02 PM CDT EXAMINATION: ??CT chest with intravenous contrast HISTORY: ??Pleuritic chest pain. ??Evaluate for pulmonary embolism. TECHNIQUE: ??Computed tomographic images of the chest were obtained after the administration of 95 mL of Omnipaque 350 intravenous contrast according to the pulmonary embolism protocol. COMPARISON: ??None available FINDINGS: ?? There is no pulmonary embolism. There is no focal consolidation, pneumothorax, or pleural effusion. ??There are no suspicious pulmonary nodules or masses. The heart is normal in size with no pericardial effusion. ??There is no mediastinal, hilar, supraclavicular, or axillary lymphadenopathy. Limited images of the upper abdomen demonstrate scattered diverticula in the visualized colon. ??The remainder of the visualized upper abdomen is normal. Bone windows do not demonstrate any abnormal osseous lytic or blastic lesions. Procedure Note Provider, MD Erin - 03/24/2021 EXAMINATION: CT chest with intravenous contrast HISTORY: Pleuritic chest pain. Evaluate for pulmonary embolism. TECHNIQUE: Computed tomographic images of the chest were obtained afterthe administration of 95 mL of Omnipaque 350 intravenous contrast according tothe pulmonary embolism protocol. COMPARISON: None available FINDINGS: There is no pulmonary embolism. There is no focal consolidation, pneumothorax, or pleural effusion. Thereare no suspicious pulmonary nodules or masses. The heart is normal in size with no pericardial effusion. There is no mediastinal, hilar, supraclavicular, or axillary lymphadenopathy. Limited images of the upper abdomen demonstrate scattered diverticula inthe visualized colon. The remainder of the visualized upper abdomen isnormal. Bone windows do not demonstrate any abnormal osseous lytic or blasticlesions. IMPRESSION: 1. No pulmonary embolism. 2. No acute cardiopulmonaryprocess. THIS IS AN ELECTRONICALLY VERIFIED REPORT 06/19/2014 4:58 PM: Luis Rondon M.D. Luis Rondon M.D. CN:clement 04:58 PM 04:[address] [facility] [EOD] us Jeff Fernandez MD IMG CT PROCEDURES Fi nal Result documented in this encounter Visit Diagnoses Diagnosis Painful respiration documented in this encounter
--- OUTSIDE RECORDS SUMMARY | 2024-11-04 23:19 | XMS_ITS | Encounter Summary ---
Author Organization [facility] Healthcare Address [address] [place] [address] Care Team Providers Care Cement Finisher Name Role Phone Neil Stinson MD Primary Care Provid er Reason for Visit * Auth/Cert Specialty Diagnoses / Procedures Referred By Veronica t Referred To Contact Diagnoses hx polyps Procedures VT COLONOSCOPY FLX DX W/COLLJ SPEC WHEN PFRMD COLONOSCOPY Referral ID Status Reason Start Date Expiration Date Visits Re quested Visits Authorized [id number] 1 1 Encounter Details Date Type Department Care Team (Latest Contact Info) Description 08/25/2022 10:50 AM CDT - 08/25/2022 1:37 PM CDT Hospital Encounter [facility] [address] [place] [address] Kathy Bailey MD [address] [place] [phone] History of colon polyps Discharge Disposition: Discharge to home or self care Social History Tobacco Use Types Packs/Day Years Used Date Smoking Tobacco: Former Cigarettes 0.5 15 1 0 - 2005 Smokeless Tobacco: Never Tobacco Cessation:Counseling [...] more drinks on one occasion? Never 08/25/2022 Comments No Sex and Gender Information Value Date Recorded Sex Assigned at Not on file Legal Sex Female 11:50 AM GRIP BOSS Gender Identity Not on file Sexual Orientation Not on file documented as of this encounter Last Filed Vital Signs Vital Sign Reading Time Taken Comments Blood Pressure 121/91 08/25/2022 1:05 PM CDT Pulse 60 08/25/2022 1:05 PM CDT Temperature 36.4 ??C (97.6 ??F) 08/25/2022 12:45 PM C DT Respiratory Rate 18 08/25/2022 1:05 PM CDT Oxygen Saturation 100% 08/25/2022 1:05 PM CDT Inhaled Oxygen Concentration - - Weight - - Height - - Body Mass Index - - documented in this encounter Discharge Instructions * Discharge Instructions* Tisha Garcia RN - 08/25/2022 12:43 PM CDT Images from the original note were not included. High fiber diet. No aspirin/NSAIDS x5 daysColonoscopy WHAT YOU NEED TO KNOW: A colonoscopy is a procedure to examine the inside of your colon (intestine) with a scope. Polyps or tissue growths may have been removed during your colonoscopy. It is normal to feel bloated and to have some abdominal discomfort. You should be passing gas. If you have hemorrhoids or you had polypsremoved, you may have a small amount of bleeding. DISCHARGE INSTRUCTIONS: Seek care immediately if: You have a large amount of bright red blood in your bowel movements. Your abdomen is hard and firm and you have severe pain. You have sudden trouble breathing. Contact your healthcare provider if: You develop a rash or hives. You have a fever within 24 hours of your procedure. . You have not had a bowel movement for 3 days after your procedure. You have questions or concerns about your condition or care. Activity: Do not lift, strain, or run for 3 days after your procedure. Rest after your procedure. You have been given medicine to relax you. Do not drive or make important decisions until the day after your procedure. Return to your normal activity as directed. Relieve gas and discomfort from bloating by lying on your right side with a heating pad on your abdomen. You may need to take short walks to help the gas move out. Eat small meals until bloating is relieved. Follow up with your healthcare provider as directed: Write down your questions so you remember to ask them during your visits. ?? 2016 [employer]. Information is for End User's use only and may not be sold, redistributed or otherwise used for commercial purposes. All illustrations and images included in CareNotes?? are the copyrighted property of [employer]. or [employer]. The above information is an educational audiologist only. It is not intended as medical advice for individual conditions or treatments. Talk to your doctor, nurse or pharmacist before following any medical regimen to see if it is safe and effective for you. General Instructions: Call MD if you have any of the following symptoms: Fever over 101 degrees Chills Persistent nausea or vomiting Sever or unrelieved pain 2. Go home and rest for 4-6 hours 3. Start with a light meal today then advance diet as tolerated 4. If you experience nausea or vomiting, stop your present intake and go back to clear liquids Additional Diet Instructions: 5. Do not drive until tomorrow or put yourself at risk of falls or injury due to residual side effects of medications given, unless otherwise directed 6. Do not sign any legal documents today 7. Do not drink any alcohol today 8. We strongly advise that a responsible person be with you the rest of the day 9. Return to normal activity AFTER AN UPPER ENDOSCOPY: You may have a sore throat or hoarseness for several days. Treat it as you would any sore throat. Report to your doctor any pain, palpitations, severe heartburn, difficulty swallowing, breathing orspitting up blood. AFTER A LOWER ENDOSCOPY: You may have mild abdominal bloating and tenderness. To relieve this, allow gas to pass. Report to your doctor any large amounts of bright red blood in your stools. documented in this encounter Medications at Time of Discharge calcium citrate-vitamin D3 (CITRACAL+D) 315 mg-5 mcg (200 unit) per tablet Take 1 tablet by mouth 2 (two) times a day iron,carbonyl-vit meza C 65 mg iron- 125 mg tablet,delayed release (DR/EC) Take by mouth DOK 100 mg capsule TK ONE C PO Q 12 H 0 12/27/2018 naproxen (NAPROSYN) 500 mg tablet TK 1 T PO Q 12 H 0 12/27/2018 documented as of this encounter Discharge Disposition Disposition Code Departure Means Destination Discharge to home or self care documented in this encounter H&P Notes * Kathy Bailey MD - 08/25/2022 11:51 AM CDT I have reviewed the H&P, examined the patient, and endorse the findings as written. Plan of Care : Based on the above findings, I consider Maria Del Carmen Cervantes to be an acceptable riskfor : Procedure(s): COLONOSCOPY Source Note - Kathy Bailey MD - 08/20/2022 12:00 AM CDT CHIEF COMPLAINT History of polyps. HISTORY OF PRESENT ILLNESS The patient previously underwent colonoscopy which revealed tubular adenomas and hyperplastic polyps. The patient underwent gastric sleeve and notes constipation. The patient presents for surveillance colonoscopy. REVIEW OF SYSTEMS Ten point review of systems was completed and is negative except as noted above. PAST MEDICAL HISTORY Diverticulitis. MEDICATIONS 1. Multivitamin. 2. Calcium. 3. Iron. PAST SURGICAL HISTORY Appendectomy, partial hysterectomy, gastric sleeve. ALLERGIES AMOXICILLIN. FAMILY HISTORY Negative for colorectal cancer. SOCIAL HISTORY Quit tobacco use over 7 years ago. PHYSICAL EXAM VITAL SIGNS: Stable. GENERAL: Patient is alert and oriented, in no acute distress. LIDS AND LIPS: Grossly normal. HEART: Regular rate. LUNGS: Unlabored respiration. ABDOMEN: Soft, nontender, nondistended. GAIT AND STATION: Normal. SKIN: Without jaundice. CRANIAL NERVES : 2-12 grossly intact. ASSESSMENT AND PLAN The patient presents for a colonoscopy for a history of polyps. Risks, benefits, procedure discussion was had with the patient and is document in chart. COVID was discussed and is documented in clinic chart. Job ID/Internal Job ID: [id number] * Kathy Bailey MD - 08/20/2022 12:00 AM CDT CHIEF COMPLAINT History of polyps. HISTORY OF PRESENT ILLNESS The patient previously underwent colonoscopy which revealed tubular adenomas and hyperplastic polyps. The patient underwent gastric sleeve and notes constipation. The patient presents for surveillance colonoscopy. REVIEW OF SYSTEMS Ten point review of systems was completed and is negative except as noted above. PAST MEDICAL HISTORY Diverticulitis. MEDICATIONS 1. Multivitamin. 2. Calcium. 3. Iron. PAST SURGICAL HISTORY Appendectomy, partial hysterectomy, gastric sleeve. ALLERGIES AMOXICILLIN. FAMILY HISTORY Negative for colorectal cancer. SOCIAL HISTORY Quit tobacco use over 7 years ago. PHYSICAL EXAM VITAL SIGNS: Stable. GENERAL: Patient is alert and oriented, in no acute distress. LIDS AND LIPS: Grossly normal. HEART: Regular rate. LUNGS: Unlabored respiration. ABDOMEN: Soft, nontender, nondistended. GAIT AND STATION: Normal. SKIN: Without jaundice. CRANIAL NERVES : 2-12 grossly intact. ASSESSMENT AND PLAN The patient presents for a colonoscopy for a history of polyps. Risks, benefits, procedure discussion was had with the patient and is document in chart. COVID was discussed and is documented in clinic chart. Job ID/Internal Job ID: [id number] documented in this encounter Nursing Notes * Rhonda Melgar RN - 08/11/2022 3:24 PM CDT No alcohol or smoking 12 hours before surgery [place] teeth but do not swallow Shower or bathe, do no apply powders or lotions Expect to remove wigs, dentures, partials, contact lenses, body pairings and prosthesis Leave all jewelry and valuables at home Bring your glasses and hearing aide/s Make plans for responcible adult ot drive you home or accompany you home Bring living will and/or power of civil rights attorney paperwork if you have one Follow GI physician instructions regarding blood thinner and vitamins Bring inhalers Take prep according to GI physician Please take the following medications with a sip of water the AM of procedure: 08/25/22 1100 arrival time, 1200 procedure time. Spoke to patient, holding all medications until after exam. Covid - Not Vaccinated- aware that a COVID SWAB is REQUIRED 08/23/22 prior to exam- pt is aware. Teaching performed by: Rhonda Melgar RN documented in this encounter Miscellaneous Notes * Op Note - Kathy Bailey MD - 08/25/2022 12:00 PM CDT OP NOTE Maria Del Carmen Cervantes 08/25/2022 Pre-operative Diagnosis: History of polyps Post-operative Diagnosis: Colon polyp, diverticulosis Procedure: Colonoscopy to cecum with hot biopsy polypectomy Anesthesia: Monitor Anesthesia Care Surgeon: Kathy Bailey MD Hollow Handle Bench Worker: Endoscopy Nurse: Tisha Garcia RN It Compliance Analyst: Cass Jones MLT Anesthesia: Anesthesiologist: Vic Hernandez MD DIVING BOARD ASSEMBLER: Cris Ray CRNA EBL: Minimal Complications: None Prep quality: Adequate Specimen: Ascending colon polyp Repeat colonoscopy: 5 years Indication for procedure: See history and physical Procedure description: Informed consent was obtained and placed on the chart after risks, benefits,procedure discussion. Patient was taken to the endoscopy suite and placed in left lateral position.All appropriate areas were padded. Anesthesia was obtained without difficulty. A time-out was performed. Digital rectal exam was performed which showed no masses. After adequate lubrication, colonoscope was inserted into the anus and advanced to the level of the cecum. Cecum was identified by ileocecal valve and appendiceal orifice. Colonoscope was then carefully withdrawn examining the color, texture, and integrity of the mucosa from the cecum to the anus. In the ascending colon patient was noted have 5 mm polyp. This was removed with hot biopsy forceps. Hemostasis was noted. Patient was noted have pandiverticulosis. In the rectum retroflexion was performed which showed small hemorrhoids. Rectum was desufflated and the colonoscope was removed in its entirety. The patient was awoken from anesthesia without difficulty and transferred to the postoperative care unit in stable condition. Kathy Bailey MD 08/25/2022 documented in this encounter Plan of Treatment Not on file documented as of this encounter Procedures Procedure Name Priority Date/Time Associated Diagnosis Comments SURGICAL PATHOLOGY Routine 08/25/2022 2: 06 PM CDT History of colon polyps COLON REMOVAL HOT BIOPSY 08/25/2022 12:08 PM CDT hx polyps POC BLOOD GAS AND CHEMISTRIES, VENOUS Routine 08/25/2022 11:37 AM CDT POCT HCG, URINE Routine 08/25/2022 11:21 AM CDT documented in this encounter Results * Surgical pathology (08/25/2022 2:06 PM CDT) Tissue (Polyp(s), colon/colorectal, esophageal, gastric) 08/25/2022 12:34 PM CDT Narrative PATHOLOGY [facility] - 08/26/2022 1:41 PM CDT [facility] Department of Pathology [address] [place] [address] ?? Note to Patients: ??This report may contain a detailed description of human tissue sent by a health care provider to the laboratory for pathologic evaluation. ??The content of this report is essential for diagnosis and may provide important critical findings. ??This information may be unfamiliar to patients to review without a medical professional present. ?? It is advised that the patient review this report in the presence of a health care provider who can answer questions and explain the details. Final Report Patient Name: MARIA DEL CARMEN CERVANTES : ??1975 (Age: 46) Gender: ??F Address: ??[address] [place] [address] ??[id number] [facility] #: [id number] Service: Surgery Location: Patient Type: B SDS OUTPATIENT ? Taken: 08/25/2022 Received: 08/25/2022 Accessioned: 08/25/2022 Reported: 08/26/2022 Physician(s): Kathy Bailey M.D. Neil Stinson MD Diagnosis: Large intestine, ascending colon, polyp, biopsy ??: - Polypoid fragment of colonic mucosa with hyperplastic change - Deeper levels examined Gertrudis Moreau MD, PhD Report Electronically Reviewed and Signed Out By ??Gertrudis Moreau MD, PhD 08/26/2022 13:41:17 Specimen(s) Received: A: Ascending colon polyp biopsy Microscopic Description: Microscopic examination is performed. Clinical History: Hx polyps History of colon polyps Gross Description The specimen container is labeled with the patient's name and ascending colon polyp biopsy . ??Received in formalin is a single fragment of soft pink tissue which measures 2 mm in greatest diameter. The tissue is submitted entirely in one cassette labeled A1. ?? dao/08/25/2022 14:29 YADIRA Cadet us Kathy Bailey MD LAB PATHOLOGY ORDERABLES Final R esult PATHOLOGY [facility] * POC Blood Gas and Chemistries, Venous - (08/25/2022 11:37 AM CDT) pH,denise POC 7.39 7.32 - 7.43 [facility] pCO2, denise POC 44 40 - 50 mmHg [facility] pO2,denise POC 46 mmHg [facility] Comment: Interpretive Data No reference range established. Current interpretive data was last revised 2020. HCO3, denise (Calc) POC 26 20 - 30 mmol/L [facility] Base excess, denise POC 1 mmol/L [facility] Comment: Interpretive Data No reference range established. Current interpretive data was last revised 2020. Hemoglobin, denise POC 15.3 11.9 - 15.5 g/dL [facility] Hematocrit, denise POC 45.0 35.6 - 45.5 % [facility] Sodium, denise POC 140 135 - 145 mmol/L [facility] Potassium, denise POC 3.8 3.3 - 4.9 mmol/L [facility] Comment: Interpretive Data This method is not able to assess for hemolysis, which may falsely increase potassium concentrations. If further testing is needed to evaluate this result, consider in-laboratory plasma potassium. Current Interpretive Data was last revised on 2022. Glucose, denise POC 88 70 - 199 mg/dL [facility] Ionized Calcium, denise POC 5.00 4.50 - 5.20 mg/dL [facility] Blood 08/25/2022 11:3 7 AM CDT 08/25/2022 11:37 AM CDT Kathy Bailey MD LAB POCT ORDERABLES - DEVICE Fin al Result [facility] [place] [address] * POCT hCG, urine (08/25/2022 11:21 AM CDT) HCG, ur, POC Negative Lot Number [id number] QC Backgroud Clear Acceptable QC Control Line Acceptable Urine 08/25/2022 11:2 1 AM CDT Vic Hernandez MD POINT OF CARE TEST ORDERAB LES Final Result documented in this encounter Visit Diagnoses Diagnosis History of colon polyps documented in this encounter Administered Medications Inactive Administered Medications - up to 3 most recent administrations Medication Order MAR Action Action Date Dose Rate Site Carrier Fluids for Secondary Infusion - 0.9% Sodium Chloride 30 mL, intravenous, As needed, For priming tubing and/or flushing, Starting on Tue08/25/22 at 1056, Pre-Op, 0-250 ml/hr to flush line after IV infusions when no maintenance IV ordered. Infuse 30mL at the same rate as the secondary infusion. Run as primary IV, not intended for KVO. Lactated Ringer's (LR) infusion 30 mL/hr, intravenous, Continuous, Starting on Tue08/25/22 at 1130, Pre-Op, Restarted 08/25/2022 12:41 PM CDT Rate/Dose Verify 08/25/2022 12:19 PM CDT 30 mL/ hr New Bag 08/25/2022 11:37 AM CDT 30 mL/hr 30 mL/hr lidocaine (XYLOCAINE) 10 mg/mL (1 %) injection 2-10 mg 2-10 mg (0.2-1 mL), other, Once as needed, pain with IV placement, Starting on Tue08/25/22 at 1056, For 1 dose, Pre-Op, Administer volume needed to infiltrate IV site. sodium chloride 0.9% flush 0.5-20 mL 0.5-20 mL, intra-catheter, As needed, line care, Starting on Tue08/25/22 at 1056, Pre-Op, Flush volume based on line type and size. Flush before and after each use. documented in this encounter Historical Medications * This list may reflect changes made after this encounter. iron,carbonyl-vit meza C 65 mg iron- 125 mg tablet,delayed release (DR/EC) Take by mouth calcium citrate-vitamin D3 (CITRACAL+D) 315 mg-5 mcg (200 unit) per tablet Take 1 tablet by mouth 2 (two) times a day added in this encounter Active and Recently Administered Medications Times are shown in CDT. Continuous Medication Order 08/23/2022 08/24/2022 08/25/2022 Lactated Ringer's (LR) infusion 30 mL/hr, intravenous, Continuous, Starting on Tue08/25/22 at 1130, Pre-Op, 1137 (New Bag - Prov ider: Tisha Garcia RN)1219 (Rate/Dose Verify - Provider: Anna Ramires CRNA)1240 (Paused - Provider: Anna Ramires CRNA - Comment: Switch to gravity)1241 (Restarted - Provider: Anna Ramires CRNA)1737 (Due: Stopped) Lactated Ringer's (LR) infusion 125 mL/hr, intravenous, Continuous, Starting on Tue08/25/22 at 1330, Phase I, If on NS, continue with normal saline at 125 ml/hr 1330 (Due) PRN Medication Order 08/23/2022 08/24/2022 08/25/2022 Carrier Fluids for Secondary Infusion - 0.9% Sodium Chloride 30 mL, intravenous, As needed, For priming tubing and/or flushing, Starting on Tue08/25/22 at 1056, Pre-Op, 0-250 ml/hr to flush line after IV infusions when no maintenance IV ordered. Infuse 30mL at the same rate as the secondary infusion. Run as primary IV, not intended for KVO. fentaNYL (SUBLIMAZE) preservative free injection 50 mcg 50 mcg, intravenous, Once as needed, breakthrough pain, Starting on Tue08/25/22 at 1251, For 1 dose, Phase I, Administer for uncontrolled or increasing pain while in PACU only. Then proceed to PACU 1st line analgesic., Indications: Pain HYDROmorphone (DILAUDID) injection 0.2 mg 0.2 mg, intravenous, Administer over 2 Minutes, Every 10 min PRN, 1st line for pain, Starting on Tue08/25/22 at 1251, Phase I, Switch to 2nd line analgesic order if pain is uncontrolled or increasing after 2 doses. Notify Anesthesiologist if total PACU dose reaches 2 mg and pain score 5/10 or more., Indications: Pain HYDROmorphone (DILAUDID) injection 0.4 mg 0.4 mg, intravenous, Administer over 2 Minutes, Every 10 min PRN, 2nd line for pain, Starting on Tue08/25/22 at 1251, Phase I, May administer 10 mintes after 2nd dose of 1st line analgesic agent for uncontrolled or increasing pain. Revert to 1st line dose if POSS of 3. Notify Anesthesiologist if total PACU dose reaches 2 mg and pain score 5/10 or more., Indications: Pain lidocaine (XYLOCAINE) 10 mg/mL (1 %) injection 2-10 mg 2-10 mg (0.2-1 mL), other, Once as needed, pain with IV placement, Starting on Tue08/25/22 at 1056, For 1 dose, Pre-Op, Administer volume needed to infiltrate IV site. meperidine (DEMEROL) preservative free injection 12.5 mg 12.5 mg, intravenous, Administer over 5 Minutes, Every 10 min PRN, shivering, Starting on Tue08/25/22 at 1251, For 2 doses, Phase I, Max cumulative dose 25 mg., Indications: Shivering metoclopramide (REGLAN) injection 10 mg 10 mg, intravenous, Administer over 1 Minutes, Once as needed, nausea, vomiting, Starting on Tue08/25/22 at 1251, For 1 dose, Phase I, If nausea/vomiting not relieved by ondansetron within 30 minutes or if ondansetron has been given within the last 6 hours. naloxone (NARCAN) 0.4 mg/mL injection 0.04-0.4 mg 0.04-0.4 mg, intravenous, Once as needed, other, excessive sedation/respiratory depression, Starting on Tue08/25/22 at 1251, For 1 dose, Phase I, Dilute 0.4 mg with 9 mL NS (final concentration 0.04 mg/mL). For respiratory depression (respiratory rate less than 6), administer 0.4 mg IVP over 30 seconds. For excessive sedation administer 0.04 mg (1 mL) every 1 minute until desired level of alertness. For IV, administer over 30 seconds., Indications: Opioid Toxicity ondansetron (ZOFRAN) injection 4 mg 4 mg, intravenous, Administer over 2 Minutes, Once as needed, nausea, vomiting, Starting on Tue08/25/22 at 1251, For 1 dose, Phase I, Proceed to metoclopramide if ondansetron has been given within the last 6 hours. sodium chloride 0.9% flush 0.5-20 mL 0.5-20 mL, intra-catheter, As needed, line care, Starting on Tue08/25/22 at 1056, Pre-Op, Flush volume based on line type and size. Flush before and after each use. documented in this encounter Orders Medications Ordered That Isidro ht Not Have Been Administered Count Last Ordered Date First Ordered Date Carrier Fluids for Secondary Infusion - 0.9% Sodium Chloride 1 08/25/2022 fentaNYL (SUBLIMAZE) preserv ative free injection 50 mcg 1 08/25/2022 HYDROmorphone (DILAUDID) injection 0.2 mg 1 08/25/2022 HYDROmorphone (DILAUDID) injection 0.4 mg 1 08/25/2022 Lactated Ringer's (LR) infusion 1 lidocaine (XYLOCAINE) 10 mg/ mL (1 %) injection 2-10 mg 1 08/25/2022 meperidine (DEMEROL) preserv ative free injection 12.5 mg 1 08/25/2022 metoclopramide (REGLAN) injection 10 mg 1 1 naloxone (NARCAN) 0.4 mg/mL injection 0.04-0.4 mg 1 08/25/2022 ondansetron (ZOFRAN) injection 4 mg 1 08/25 sodium chloride 0.9% flush 0.5-20 mL 1 08/07 Discharge Count Last Ordered Date First Orde red Date DISCHARGE PATIENT 1 08/25/2022 documented in this encounter Care Teams Cement Finisher Relationship Specialty Start Date End Date Neil Stinson MD [facility] [address] [place] [id number] PCP - General Family Medicine 12/15/21 documented as of this encounter
--- OUTSIDE RECORDS SUMMARY | 2024-11-04 23:19 | XMS_ITS | Encounter Summary ---
Author Organization [facility] Facility Care Team Providers Care Area Field Manager Name Role Phone No, Physician Primary Care Provider [phone] Rose Marie Norton NP Primary Care Provider [phone] Rehan Mendoza MD Primary Care Provider [phone] Rose Marie Norton POWER ORIGINATOR Primary Care Provider [phone] Neil Stinson MD Primary Care Provid er Encounter Details Date Type Department Care Team (Latest Contact Info) Description 11/15/2018 Orders Only [facility]IN[facility] ProviderErin MD [address] [place] [address] Social History Tobacco Use Types Packs/Day Years Used Date Smoking Tobacco: Never Assessed Comments Unknown Sex and Gender Information Value Date Recorded Sex Assigned at Not on file Legal Sex Female 11:50 AM EMBEDDER Gender Identity Not on file Sexual Orientation Not on file documented as of this encounter Plan of Treatment Not on file documented as of this encounter Procedures Procedure Name Priority Date/Time Associated Diagnosis Comments SCAN - PATHOLOGY 11/15/2018 12:0 0 AM EMBEDDER documented in this encounter Results * SCAN - PATHOLOGY (11/15/2018 12:00 AM EMBEDDER) Narrative 11/15/2018 12:00 AM EMBEDDER Ordered by an unspecified provider. Historical Provider Final Res ult documented in this encounter Visit Diagnoses Not on filedocumented in this encounter Care Teams Area Field Manager Relationship Specialty Start Date End Date No, Physician PCP - General 11/21/18 12/21/18 Rose Marie Norton, POWER ORIGINATOR [address] [place], [place] [address] PCP - General 12/22/18 09/07/20 Rehan Mendoza MD [address] [place], [place] [address] PCP - General 09/08/20 12/17/20 Rose Marie Norton, POWER ORIGINATOR [address], [place] [address] PCP - General 12/18/20 12/14/21 Neil Stinson MD [address] [place], [place] [id number] PCP - General Family Medicine 12/15/21 documented as of this encounter
--- OUTSIDE RECORDS SUMMARY | 2024-11-04 23:19 | XMS_ITS | Encounter Summary ---
Author Organization [facility] Healthcare Address [address] [place] [address] Care Team Providers Care Parts Runner Name Role Phone Unavailable Primary Care Provider Unavailabl e Encounter Details Date Type Department Care Team (Latest Contact Info) Description 02/05/2014 7:42 AM CDT - 02/05/2014 9:55 AM CDT Hospital Encounter [facility] PardeepSeble MD [address] [place] [address] Dysphagia; Atrophic gastritis Social History Tobacco Use Types Packs/Day Years Used Date Smoking Tobacco: Never Assessed Comments Unknown Sex and Gender Information Value Date Recorded Sex Assigned at Not on file 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 Gender Identity Not on file Sexual Orientation Not on file documented as of this encounter Last Filed Vital Signs Vital Sign Reading Time Taken Comments Blood Pressure 112/69 02/05/2014 7:58 AM CDT Pulse 68 02/05/2014 7:58 AM CDT Temperature 36.8 ??C (98.2 ??F) 02/05/2014 7:58 AM CD T Respiratory Rate - - Oxygen Saturation 99% 02/05/2014 7:58 AM CDT Inhaled Oxygen Concentration - - Weight 111.1 kg (245 lb) 02/05/2014 7:58 AM CDT Height 162.6 cm (5' 4 ) 02/05/2014 7:58 AM CDT Body Mass Index 42.05 02/05/2014 7:58 AM CDT documented in this encounter Plan of Treatment Not on file documented as of this encounter Procedures Procedure Name Priority Date/Time Associated Diagnosis Comments SCAN - PATHOLOGY 02/06/2014 12:0 0 AM CDT documented in this encounter Results * SCAN - PATHOLOGY (02/06/2014 12:00 AM CDT) Narrative 02/06/2014 12:00 AM CDT Ordered by an unspecified provider. us Historical Provider MD Final Res ult documented in this encounter Visit Diagnoses Diagnosis Dysphagia Atrophic gastritis documented in this encounter
--- OUTSIDE RECORDS SUMMARY | 2024-11-04 23:19 | XMS_ITS | Encounter Summary ---
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 ??Testing performed by the [facility] Molecular Infectious Disease [facility]. The 2018-Novel Coronavirus [...] on December 11, 2020. Testing performed by: [facility], [address] [place] [address] Nasopharyngeal 08/23/2022 1: 47 PM CDT 08/23/2022 7:05 PM CDT Narrative LAURENCE - 08/24/2022 12:34 AM CDT Is the patient experiencing any symptoms consistent with COVID (eg. Fever, cough, shortness of breath)?->No What is the reason for testing?->Screening prior to scheduled??procedure or surgery??(Batched) Kathy Bailey MD LAB MICROBIOLOGY - GENERAL ORDER LOURDES Final Result [facility] [address] [facility] [place] [address] documented in this encounter Visit Diagnoses Diagnosis Preop testing Unspecified pre-operative examination documented in this encounter Care Teams Seasoner Relationship Specialty Start Date End Date Neil Stinson MD [address] [place] [address] PCP - General Family Medicine 12/15/21 documented as of this encounter
--- OUTSIDE RECORDS SUMMARY | 2024-11-04 23:19 | XMS_ITS | Encounter Summary ---
Author Organization [facility] Healthcare Address [address] [place] [address] Care Team Providers Care Resident Care Manager Rn Name Role Phone Rehan Mendoza MD Primary Care Provider [phone] Encounter Details Date Type Department Care Team (Late st Contact Info) Description 2020 11:42 AM WELL TESTER Hospital Encounter [facility] Rehan Mendoza MD [address] [place] [address] Social History Tobacco Use Types Packs/Day Years Used Date Smoking Tobacco: Former Smokeless Tobacco: Never Alcohol Use Standard Drinks/Week Comments Yes 0 (1 standard drink = 0.6 oz pur e alcohol) socially Comments No Sex and Gender Information Value Date Recorded Sex Assigned at Not on file Legal Sex Female 11:50 AM WELL TESTER Gender Identity Not on file Sexual Orientation [...] Priority Date/Time Associated Diagnosis Comments ECG 12-LEAD 2020 12:18 PM WELL TESTER IRON PROFILE W/ IBC Routine 2020 1 2:08 PM WELL TESTER VITAMIN D 25 HYDROXY Routine 2020 12:08 PM WELL TESTER TSH Routine 2020 12:08 PM WELL TESTER PTH Routine 2020 12:08 PM WELL TESTER MAGNESIUM Routine 2020 12:08 PM WELL TESTER HEMOGLOBIN A1C Routine 2020 12:08 PM WELL TESTER FOLATE Routine 2020 12:08 PM WELL TESTER VITAMIN B12 Routine 2020 12:08 PM WELL TESTER LIPID PANEL Routine 2020 12:08 PM WELL TESTER COMPREHENSIVE METABOLIC PANEL Routine 2020 12:08 PM WELL TESTER CBC WITH AUTO DIFFERENTIAL Routine 2020 12:07 PM WELL TESTER APTT Routine 2020 12:07 PM WELL TESTER PROTIME-INR Routine 2020 12:07 PM WELL TESTER VITAMIN B1 Routine 2020 12:07 PM WELL TESTER XR CHEST PA LATERAL 2 VIEWS 2020 11:48 AM WELL TESTER documented in this encounter Results * ECG 12 lead (2020 12:18 PM WELL TESTER) Ventricular Rate EKG/Min 66 BPM [facility] Atrial Rate 66 BPM [facility] MN-Interval (MSEC) 140 ms [facility] QRS-Interval (MSEC) 84 ms [facility] QT-Interval (MSEC) 420 ms [facility] QTc 440 ms [facility] P [place] 1 degrees [facility] R [place] 1 degrees [facility] T [place] 12 degrees [facility] Diagnosis Normal sinus rhythm Inferior t wave abnormality When compared with ECG of 05-OCT-2014 16:14, Nonspecific T wave abnormality is now seen in lead aVF [facility] 2020 12:1 8 PM WELL TESTER 2020 9:13 PM WELL TESTER Narrative Resulting Agency Comment OUTPAT Rehan Mendoza MD ECG ORDERABLES Final Result Performing Organization Address [facility] Co de Phone Number [facility] * TSH (2020 12:08 PM WELL TESTER) TSH 1.740 0.27 - 4.20 uIU/mL [facility] 2020 12:0 8 PM WELL TESTER 2020 12:12 PM WELL TESTER Narrative Resulting Agency Comment CLI Rehan Mendoza MD LAB BLOOD ORDERABLES Final R esult Performing Organization Address [facility] Co de Phone Number [address] [phone] * PTH (2020 12:08 PM WELL TESTER) PTH Intact 65 15 - 65 pg/mL [facility] 2020 12:0 8 PM WELL TESTER 2020 12:12 PM WELL TESTER Narrative Resulting Agency Comment CLI Rehan Mendoza MD LAB BLOOD ORDERABLES Final R esult Performing Organization Address [facility] [place] [address], [facility] [phone] * (ABNORMAL) Vitamin D 25 hydroxy (2020 12:08 PM WELL TESTER) 25-OH Vitamin D Total 13(L) 30 - 80 ng/mL [facility] 2020 12:0 8 PM WELL TESTER 2020 12:12 PM WELL TESTER Narrative Resulting Agency Comment CLI Rehan Mendoza MD LAB BLOOD ORDERABLES Final R esult [facility] [address] [phone] * Folate (2020 12:08 PM WELL TESTER) Folate 10.0 ng/mL [facility] Comment: Reference Range ??> 5.0 ng/mL Folate has been standardized against the WHO International Standard [facility] code: 178 2020 12:0 8 PM WELL TESTER 2020 12:12 PM WELL TESTER Narrative Resulting Agency Comment CLI us Rehan Mendoza MD LAB BLOOD ORDERABLES Final R esult Performing Organization Address City/[facility] Co de Phone Number [address] [phone] * Vitamin B12 (2020 12:08 PM WELL TESTER) Vitamin B12 532 230 - 1,250 pg/mL [facility] 2020 12:0 8 PM WELL TESTER 2020 12:12 PM WELL TESTER Narrative Resulting Agency Comment CLI Rehan Mendoza MD LAB BLOOD ORDERABLES Final R esult Performing Organization Address [facility] Co de Phone Number [address] [phone] * Iron profile w/ IBC (2020 12:08 PM WELL TESTER) Iron 85 37 - 145 ug/dL [facility] TIBC 321 228 - 428 ug/dL [facility] Transferrin % Sat 26 20 - 50 % [facility] 2020 12:0 8 PM WELL TESTER 2020 12:12 PM WELL TESTER Narrative Resulting Agency Comment CLI Rehan Mendoza MD LAB BLOOD ORDERABLES Final R esult Performing Organization Address [facility] de Phone Number [address] [phone] * Hemoglobin A1c (2020 12:08 PM WELL TESTER) Hemoglobin A1c % 5.4 4.0 - 5.6 % [facility] Comment: ADA 2016 GUIDELINES: ??Initial Diagnostic Criteria ? HbA1c Result: ?Interpretation: ?<5.7% ? Normal ?5.7-6.4% ?At risk for diabetes mellitus ?>=6.5% ?Consistent with diabetes mellitus ??Diabetes monitoring ? Target value (ADA Recommended) ?? <7% 2020 12:0 8 PM WELL TESTER 2020 12:12 PM WELL TESTER Narrative Resulting Agency Comment CLI Rehan Mendoza MD LAB BLOOD ORDERABLES Final R esult Performing Organization Address [facility] de Phone Number [address] [phone] * Magnesium (2020 12:08 PM WELL TESTER) Pathologist [facility] Magnesium 1.8 1.6 - 2.6 mg/dL [facility] Comment: Magnesium sulfate therapy: ??3.0-9.1 mg/dL 2020 12:0 8 PM WELL TESTER 2020 12:12 PM WELL TESTER Narrative Resulting Agency Comment CLI us Rehan Mendoza MD LAB BLOOD ORDERABLES Final R esult Performing Organization Address City/[facility] de Phone Number [address] [phone] * (ABNORMAL) Lipid panel (2020 12:08 PM WELL TESTER) Triglycerides 76 0 - 149 mg/dL [facility] Comment: National Lipid Association/NCEP Guidelines: ?? Normal ?< 150 mg/dL ?? Borderline high ?? 150-199 mg/dL ?? High ?200-499 mg/dL ?? Very High ? >=500 mg/dL Cholesterol 202(H) 0 - 199 mg/dL [facility] Comment: National Lipid Association/NCEP Guidelines: Desirable ? < 200 mg/dL Borderline high: ??200-239 mg/dL High Risk: ?>=240 mg/dL HDL Cholesterol 60 mg/dL [facility] Comment: Reference Ranges: ? Males: >=40 mg/dL ? Females: >=50 mg/dL LDL Cholesterol, Calc 127 0 - 129 mg/dL [facility] Comment: National Lipid Association/NCEP Guidelines: ??Optimal ? < 100 mg/dL ??Near Optimal ?100-129 mg/dL ??Borderline high 130-159 mg/dL ??High ?>=160 mg/dL Cholesterol/HDL Ratio 3.4 [facility] Comment: Optimal ??< 3.5:1 High ? > 5:1 2020 12:0 8 PM WELL TESTER 2020 12:12 PM WELL TESTER Narrative Resulting Agency Comment CLI us Rehan Mendoza MD LAB BLOOD ORDERABLES Final R esult [facility] [address] [phone] * (ABNORMAL) Comprehensive metabolic panel (2020 12:08 PM WELL TESTER) Pathologist [facility] Sodium 140 135 - 145 mmol/L [facility] Potassium 4.3 3.3 - 5.1 mmol/L [facility] Chloride 106 96 - 108 mmol/L [facility] Carbon Dioxide 26 22 - 32 mmol/L [facility] Anion Gap 8 7 - 16 [facility] Glucose 105(H) 70 - 100 mg/dL [facility] BUN 16 8 - 25 mg/dL [facility] Creatinine 0.9 0.5 - 1.1 mg/dL [facility] Comment: NOTE: Estimated GFR (Cockroft-Gault) will NOT be calculated unless patient Height and Weight were entered. Also, Kidney Disease Stage (GFR) and Estimated GFR (Cockroft-Gault) will NOT be calculated if Creatinine result is <0.2. Kidney Disease Stage 87 mL/MIN [facility] Comment: NOTE; ??The GFR is an estimated value using the creatinine, sex, age, and race of the patient. THE Estimated Kidney Disease GFR is validated for AGES 18-70 YEARS STAGE ?mL/Min ?DESCRIPTION ??1 ?90 mL/min or more ?Normal or elevated GFR ??2 ? 60-89 mL/min ?Mildly decreased GFR ??3 ? 30-59 mL/min ?Moderately decreased GFR ??4 ? 15-29 mL/min ?Severely decreased GFR ??5 ? <15 mL/min ? Kidney failure or on dialysis Calcium 9.2 8.6 - 10.3 mg/dL [facility] Total Protein 6.0(L) 6.4 - 8.3 g/dL [facility] Albumin 3.9 3.5 - 5.0 g/dL [facility] Globulin 2.1(L) 2.3 - 3.5 gm/dL [facility] Albumin/Globulin Ratio 1.9(H) 1.1 - 1.8 [facility] Total Bilirubin 0.5 0.0 - 1.2 mg/dL [facility] AST 18 0 - 32 U/L [facility] ALT 25 0 - 33 U/L [facility] Alkaline Phosphatase 66 35 - 104 U/L [facility] 2020 12:0 8 PM WELL TESTER 2020 12:12 PM WELL TESTER Narrative Resulting Agency Comment CLI Rehan Mendoza MD LAB BLOOD ORDERABLES Final R esult [address] [phone] * Vitamin B1 (2020 12:07 PM WELL TESTER) Whole Bld Vitamin B1 123 70 - 180 nmol/L [facility] Comment: INTERPRETIVE INFORMATION: Vitamin B1, Whole Blood This assay measures the concentration of thiamine diphosphate (TDP), the primary active form of vitamin B1. Approximately 90 percent of vitamin B1 present in whole blood is TDP. Thiamine and thiamine monophosphate, which comprise the remaining 10 percent, are not measured. Test developed and characteristics determined by [facility]. See Compliance Statement B: 66. [email or web address] Performed By: [facility] [address] [place] [address] County Judge: Beti Guillen MD 2020 12:0 7 PM WELL TESTER 2020 12:12 PM WELL TESTER Narrative Resulting Agency Comment CLI Rehan Mendoza MD LAB BLOOD ORDERABLES Final R esult [facility] [address] [place] [address], [facility] [phone] * aPTT (2020 12:07 PM WELL TESTER) APTT 25 23 - 38 SECONDS [facility] Comment: New reference ranges in use 08-06-2020. 2020 12:0 7 PM WELL TESTER 2020 12:12 PM WELL TESTER Narrative Resulting Agency Comment CLI Rehan Mendoza MD LAB BLOOD ORDERABLES Final R esult Performing Organization Address [facility] Co de Phone Number [facility] [address] [phone] * (ABNORMAL) Protime-INR (2020 12:07 PM WELL TESTER) Pathologist [facility] PT 12.0(L) 12.3 - 15.1 SECONDS [facility] Comment: New reference ranges in use 08-06-2020. INR 0.84 [facility] Comment: Recommended Therapeutic range for Oral Anticoagulant Therapy No anti-coagulation therapy ? Normal Range: ?0.8-1.4 Anti-coagulation therapy ? Low intensity therapy ?2.0-3.0 ? High intensity therapy ?? 2.5-3.5 Critical Value ? Greater than or equal to 5.0 Patients should be monitored for serious bleeding. 2020 12:0 7 PM WELL TESTER 2020 12:12 PM WELL TESTER Narrative Resulting Agency Comment CLI Rehan Mendoza MD LAB BLOOD ORDERABLES Final R esult Performing Organization Address City/[facility]/ZIP Co de Phone Number [facility] [address] [place] [address] * CBC with auto differential (2020 12:07 PM WELL TESTER) [facility] WBC 8.1 3.8 - 9.9 X10 3/ul [facility] RBC 4.86 3.90 - 5.20 x10 6/ul [facility] Hemoglobin 15.0 11.9 - 15.5 g/dL [facility] Hct 44.1 35.6 - 45.5 % [facility] MCV 90.7 81.3 - 96.4 fl [facility] MCH 30.9 27.1 - 33.3 pg [facility] MCHC 34.0 32.3 - 35.7 g/dl [facility] RDW 13.2 11.1 - 14.9 % [facility] Plt Count 241 150 - 400 x10 3/ul [facility] MPV 9.5 9.1 - 12.3 fl [facility] Neut % 55.3 % [facility] [employer] Immature Gran % 0.2 % [facility] Lymph % 36.9 % [facility] [employer] - [employer] Tama % 5.5 % [facility] [employer] Eos % 1.6 % [facility] [employer] [facility] AUTO BASO % 0.5 % [facility] NEUTROPHIL ABS # 4.5 1.7 - 6.5 x10 3/ul [facility] Immature Gran # 0.0 0.0 - 0.1 x10 3/ul [facility] Absolute Lymphs (auto) 3.0 0.8 - 3.3 x10 3/ul [facility] Absolute Monos (auto) 0.4 0.2 - 0.8 x10 3/ul [facility] Absolute Eos (auto) 0.1 0.0 - 0.5 x10 3/ul [facility] BASOPHIL ABS # 0.0 0.0 - 0.1 x10 3/ul [facility] Nucleat RBC Rel Count 0.0 #/100WBC [facility] NRBC abs 0.00 0.00 - 0.01 x10 3/ul [facility] Absolute Neutrophils 4,500 200 - 8,000 /ul [facility] 2020 12:0 7 PM WELL TESTER 2020 12:12 PM WELL TESTER Narrative Resulting Agency Comment CLI us Rehan Mendoza MD LAB BLOOD ORDERABLES Final R esult [facility] [address] [phone] * XR Chest Pa Lateral 2 Views (2020 11:48 AM WELL TESTER) Anatomical Region Laterality Modality Body, Chest N/A Radiographic Rosi ging 2020 1:05 PM WELL TESTER Narrative 2020 1:05 PM WELL TESTER Patient Name: TAMMY CERVANTES ?Ordering Dr: Rehan Mendoza MD ?? D.O.B: 1975 ? Exam Date: 09/08/20 ?? 1148 ?? Age: 45 ?Sex: Female ? MR#: [id number] ?? Loc: ? RADIOLOGY REPORT ?? Order #[id number] ?? Radiology ? Chest 2 Views ? Signed ? EXAM DESCRIPTION: ?? Chest 2 Views ? REASON FOR STUDY: ?? Mild cough today. ??Preoperative evaluation for gastric ?? sleeve surgery. ? TECHNIQUE: ?? Frontal and lateral radiographic views of the chest acquired. ? COMPARISON: ?? 06/17/2020 ? FINDINGS: ? LUNGS/PLEURA: ??Lungs are well expanded and clear. ??There is no pleural ?? effusion. ??No pneumothorax. ? HEART/MEDIASTINUM: ??Heart size is normal. Normal mediastinal and hilar ?? contours. ? HARDWARE/LINES/TUBES: ??None. ? BONES: ??No acute findings. ? OTHER: ??No other significant finding. ? IMPRESSION: ?? No acute findings noted. ? THIS IS AN ELECTRONICALLY VERIFIED FINAL REPORT ?? 2020 1:05 PM - Electronically signed by Kevin Pierre M.D. ?? Kevin Pierre M.D. ? RL: RL ?? D: ??2020 1:05 PM ?? T: ??2020 1:05 PM ? Report ID: [id number] ?? Reading Location: ??[id number] ? REPORT ELECTRONICALLY SIGNED IN OTHER VENDOR SYSTEM ?? Resulting Agency Comment O Procedure Note Kevin Kendall MD - 2020 Patient Name: TAMMY CERVANTES Dr: Rehan Mendoza MD D.O.B: 1975 Exam Date: 09/08/20 1148 Age: 45 Sex: Female MR#: [id number] Loc: RADIOLOGY REPORT Order #[id number] Radiology Chest 2 Views Signed EXAM DESCRIPTION: Chest 2 Views REASON FOR STUDY: Mild cough today. Preoperative evaluation forgastric sleeve surgery. TECHNIQUE: Frontal and lateral radiographic views of the chestacquired. COMPARISON: 06/17/2020 FINDINGS: LUNGS/PLEURA: Lungs are well expanded and clear. There is no pleural effusion. No pneumothorax. HEART/MEDIASTINUM: Heart size is normal. Normal mediastinal and hilar contours. HARDWARE/LINES/TUBES: None. BONES: No acute findings. OTHER: No other significant finding. IMPRESSION: No acute findings noted. THIS IS AN ELECTRONICALLY VERIFIED FINAL REPORT 2020 1:05 PM - Electronically signed by Kevin Pierre M.D. RL: GOPAL Report ID: [id number] Reading Location: [place] [address] REPORT ELECTRONICALLY SIGNED IN OTHER VENDOR SYSTEM Rehan Mendoza MD IMG XR PROCEDURES Final Resu lt documented in this encounter Visit Diagnoses Not on filedocumented in this encounter Care Teams Resident Care Manager Rn Relationship Specialty Start Date End Date Rehan Mendoza MD [address] [place] [address] PCP - General 09/08/20 12/17/20 documented as of this encounter
--- OUTSIDE RECORDS SUMMARY | 2024-11-04 23:19 | XMS_ITS | Encounter Summary ---
Author Organization [facility] Address [address] [facility] [address] [place] [address] Care Team Providers Care Blueprint Trimmer Name Role Phone Rose Marie Norton NP Primary Care Provider [phone] Reason for Visit * Reason Onset Date Comments Back Pain 02/12/2019 Encounter Details Date Type Department Care Team (Late st Contact Info) Description 02/12/2019 Telephone [facility] Obstetrical Gynecology [address] [facility] [address] [place] [address] Brenda Cuello, [facility] Back Pain Social History Tobacco Use Types Packs/Day Years Used Date Smoking Tobacco: Never Assessed Comments Unknown Sex and Gender Information Value Date Recorded Sex Assigned at Not on file 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 * Telephone Encounter - Robyn Ramírez DO - 02/12/2019 2:35 PM CDT If she had back pain prior to the surgery I would see her PCM regarding the back pain. I do not think it is from the surgery. * Telephone Encounter - Delia Dailey MA - 02/12/2019 2:07 PM CDT Please advise. * Telephone Encounter - Brenda Cuello RDMS - 02/12/2019 1:34 PM CDT Hysterectomy 12.27.18, states has had back pain since surgery, is not getting any better. States walks a lot on the job and some left foot numbness in her toes. Has f/u appointment 02.19.19. Patient states has had back pain prior to the hyst. Wonders if it could have any relation to the surgery. documented in this encounter Plan of Treatment Not on file documented as of this encounter Visit Diagnoses Not on filedocumented in this encounter Care Teams Blueprint Trimmer Relationship Specialty Start Date End Date Rose Marie Norton NP [address] [facility] [place] [address] PCP - General 12/22/18 09/07/20 documented as of this encounter
--- OUTSIDE RECORDS SUMMARY | 2024-11-04 23:19 | XMS_ITS | Encounter Summary ---
Author Organization [facility] Healthcare Address [address] [place] [address] Care Team Providers Care Downstream Biomanufacturing Technician Name Role Phone Unavailable Primary Care Provider Unavailabl e Encounter Details Date Type Department Care Team (Latest Contact Info) Description 10/12/2017 12:41 PM FUGITIVE INVESTIGATOR Hospital Encounter [facility] ER Andre Palmer MD [address] [place] [address] Chest pain; Heart failure (CMS/HCC); Edema Social History Tobacco Use Types Packs/Day Years Used Date Smoking Tobacco: Never Assessed Comments Unknown Sex and Gender Information Value Date Recorded Sex Assigned at Not on file Legal Sex Female 11:50 AM FUGITIVE INVESTIGATOR Gender Identity Not on file Sexual Orientation Not on file documented as of this encounter Plan of Treatment Not on file documented as of this encounter Procedures Procedure Name Priority Date/Time Associated Diagnosis Comments MAGNESIUM Routine 10/12/2017 12:48 PM FUGITIVE INVESTIGATOR LIPID PANEL Routine 10/12/2017 12:48 PM FUGITIVE INVESTIGATOR BASIC METABOLIC PANEL Routine 10/12/2017 12:48 PM FUGITIVE INVESTIGATOR documented in this encounter Results * Magnesium (10/12/2017 12:48 PM FUGITIVE INVESTIGATOR) Magnesium 2.2 1.6 - 2.6 mg/dL 10/12/2017 1:14 PM [facility] HISTORICAL RESULTS Comment:Magnesium sulfate th erapy: 3.0-9.1 mg/dL 10/12/2017 12:4 8 PM FUGITIVE INVESTIGATOR 10/12/2017 12:52 PM FUGITIVE INVESTIGATOR us Andre Palmer MD LAB BLOOD ORDERABLES Final Result Performing Organization Address [facility] de Phone Number [facility] HISTORICAL RESULTS * Lipid panel (10/12/2017 12:48 PM FUGITIVE INVESTIGATOR) Triglycerides 73 0 - 199 mg/dL 10/12/2017 1:14 PM [facility] HISTORICAL RESULTS Comment:12 hr pc highly minna mmended for Triglyceride Cholesterol 137 0 - 199 mg/dL 10/12/2017 1:14 PM [facility] HISTORICAL RESULTS Comment: Borderline: ??200-239 High Risk: ?? >239 HDL Cholesterol 41 40 - 60 mg/dL 10/12/2017 1:14 PM [facility] HISTORICAL RESULTS Comment: Major Risk ?< 40 mg/dL Moderate Risk ?40-60 mg/dL Negative Risk ?? > 60 mg/dL LDL Cholesterol, Calc 81 0 - 130 mg/dL 10/12/2017 1:14 PM [facility] HISTORICAL RESULTS Comment:High Risk > 159 mg/d L Cholesterol/HDL Ratio 3.3 10/12/2017 1:14 PM [facility] HISTORICAL RESULTS Comment: Cholesterol / HDL Ratio 3.5:1 or less is desirable. Cholesterol / HDL Ratio greater than 5:1 is considered higher risk for developing heart disease. 10/12/2017 12:4 8 PM FUGITIVE INVESTIGATOR 10/12/2017 12:52 PM FUGITIVE INVESTIGATOR us Andre Palmer MD LAB BLOOD ORDERABLES Final Result Performing Organization Address [facility] de Phone Number [facility] HISTORICAL RESULTS * (ABNORMAL) Basic metabolic panel (10/12/2017 12:48 PM FUGITIVE INVESTIGATOR) Sodium 142 135 - 145 mmol/L 10/12/2017 1:14 PM [facility] HISTORICAL RESULTS Potassium 3.8 3.3 - 5.1 mmol/L 10/12/2017 1:14 PM [facility] HISTORICAL RESULTS Chloride 105 96 - 108 mmol/L 10/12/2017 1:14 PM [facility] HISTORICAL RESULTS Carbon Dioxide 26 22 - 32 mmol/L 10/12/2017 1:14 PM [facility] HISTORICAL RESULTS Anion Gap 11 7 - 16 10/12/2017 1:14 PM [facility] HISTORICAL RESULTS Glucose 88 70 - 100 mg/dL 10/12/2017 1:14 PM [facility] HISTORICAL RESULTS BUN 16 6 - 20 mg/dL 10/12/2017 1:14 PM [facility] HISTORICAL RESULTS Creatinine 0.9 0.5 - 1.1 mg/dL 10/12/2017 1:14 PM [facility] HISTORICAL RESULTS Comment: NOTE: Estimated GFR (Cockroft-Gault) will NOT be calculated unless patient Height and Weight were entered. Also, Kidney Disease Stage (GFR) and Estimated GFR (Cockroft-Gault) will NOT be calculated if Creatinine result is <0.2. Kidney Disease Stage 89 mL/MIN 10/12/2017 1:14 PM [facility] HISTORICAL RESULTS Comment: NOTE; ??The GFR is an estimated [...] Kidney failure or on dialysis @ Calcium 8.4(L) 8.6 - 10.0 mg/dL 10/12/2017 1:14 PM FUGITIVE INVESTIGATOR [facility] HISTORICAL RESULTS 10/12/2017 12:4 8 PM FUGITIVE INVESTIGATOR 10/12/2017 12:52 PM FUGITIVE INVESTIGATOR us Andre Palmer MD LAB BLOOD ORDERABLES Final Result [facility] HISTORICAL RESULTS documented in this encounter Visit Diagnoses Diagnosis Chest pain Unspecified chest pain Heart failure (HCC) Unspecified heart failure Edema documented in this encounter
--- OUTSIDE RECORDS SUMMARY | 2024-11-04 23:19 | XMS_ITS | Encounter Summary ---
Author Organization [facility] Healthcare Address [address] [place] [address] Care Team Providers Care Plisse Machine Operator Helper Name Role Phone Unavailable Primary Care Provider Unavailabl e Encounter Details Date Type Department Care Team (Late st Contact Info) Description 11/14/2012 6:58 PM PROCESSING SUPERVISOR - 11/14/2012 9:00 PM PROCESSING SUPERVISOR Hospital Encounter [facility] Kenna Omer, MEDICAL INFORMATION SPECIALIST [address] [address] Chest pain Social History Tobacco Use Types Packs/Day Years Used Date Smoking Tobacco: Never Assessed Comments Unknown Sex and Gender Information Value Date Recorded Sex Assigned at Not on file Legal Sex Female 11:50 AM PROCESSING SUPERVISOR Gender Identity Not on file Sexual Orientation Not on file documented as of this encounter Last Filed Vital Signs Vital Sign Reading Time Taken Comments Blood Pressure 129/80 11/14/2012 7:25 PM PROCESSING SUPERVISOR Pulse 80 11/14/2012 7:25 PM PROCESSING SUPERVISOR Temperature 37.2 ??C (98.9 ??F) 11/14/2012 7:25 PM CS T Respiratory Rate - - Oxygen Saturation 98% 11/14/2012 7:25 PM PROCESSING SUPERVISOR Inhaled Oxygen Concentration - - Weight 107 kg (236 lb) 11/14/2012 7:25 PM PROCESSING SUPERVISOR Height 160 cm (5' 3 ) 11/14/2012 7:25 PM PROCESSING SUPERVISOR Body Mass Index 41.81 11/14/2012 7:25 PM PROCESSING SUPERVISOR documented in this encounter Plan of Treatment Not on file documented as of this encounter Procedures Procedure Name Priority Date/Time Associated Diagnosis Comments CBC WITH AUTO DIFFERENTIAL Routine 11/14/2012 7:50 PM PROCESSING SUPERVISOR TROPONIN I Routine 11/14/2012 7:50 PM PROCESSING SUPERVISOR PROTIME-INR Routine 11/14/2012 7:50 PM PROCESSING SUPERVISOR COMPREHENSIVE METABOLIC PANEL Routine 11/14/2012 7:50 PM PROCESSING SUPERVISOR documented in this encounter Results * Troponin I (11/14/2012 7:50 PM PROCESSING SUPERVISOR) Pathologist [facility] Troponin I < 0.300 0.000 - 0.300 ng/mL 11/14/2012 8:23 PM PROCESSING SUPERVISOR [facility] HISTORICAL RESULTS Comment: Reference using VIRA Chemiluminescence ? Negative: Repeat in 4-6 hours as indicated. 11/14/2012 7:50 PM PROCESSING SUPERVISOR 11/14/2012 7:55 PM PROCESSING SUPERVISOR Kenna Wakefield MEDICAL INFORMATION SPECIALIST LAB BLOOD ORDERABLES Final Result [facility] HISTORICAL RESULTS * Protime-INR (11/14/2012 7:50 PM PROCESSING SUPERVISOR) Pathologist [facility] PT 13.4 12.2 - 14.8 SECONDS 11/14/2012 8:16 PM PROCESSING SUPERVISOR [facility] HISTORICAL RESULTS INR 0.99 0.01 - 5.99 11/14/2012 8:16 PM PROCESSING SUPERVISOR [facility] HISTORICAL RESULTS Comment: Recommended Therapeutic range for Oral Anticoagulant Therapy No anti-coagulation therapy ? Normal Range: ?0.8-1.4 Anti-coagulation therapy ? Low intensity therapy ?2.0-3.0 ? High intensity therapy ?? 2.5-3.5 Critical Value ? Greater than or equal to 6.0 Patients should be monitored for serious bleeding. ?? 11/14/2012 7:50 PM PROCESSING SUPERVISOR 11/14/2012 7:55 PM PROCESSING SUPERVISOR Kenna Wakefield MEDICAL INFORMATION SPECIALIST LAB BLOOD ORDERABLES Final Result [facility] HISTORICAL RESULTS * Comprehensive metabolic panel (11/14/2012 7:50 PM PROCESSING SUPERVISOR) Sodium 139 135 - 145 mmol/L 11/14/2012 8:21 PM PROCESSING SUPERVISOR [facility] H[facility] RESULTS Potassium 4.1 3.3 - 5.1 mmol/L 11/14/2012 8:21 PM PROCESSING SUPERVISOR [facility] HISTORICAL RESULTS Chloride 106 96 - 108 mmol/L Carbon Dioxide 25 22 - 32 mmol/L Anion Gap 8 Glucose 80 70 - 110 mg/dL 11/14/2012 8:21 PM PROCESSING SUPERVISOR [facility] HISTORICAL RESULTS BUN 19 6 - 20 mg/dL Creatinine 0.8 0.5 [...] Kidney failure or on dialysis @ Calcium 2.19 2.15 - 2.55 mmol/L Total Protein 6.9 6.4 - 8.4 g/dL 11/14/2012 8:21 PM PROCESSING SUPERVISOR [facility] HISTORICAL RESULTS Albumin 4.3 3.5 - 5.2 g/dL Globulin 2.6 2.3 - 3.5 gm/dL Albumin/Globulin Ratio 1.7 1.1 - 1.8 11/14/2012 8:21 PM PROCESSING SUPERVISOR [facility] HISTORICAL RESULTS Total Bilirubin 0.3 0.0 - 1.2 mg/dL AST 16 0 - 32 U/L ALT 16 0 - 31 U/L Alkaline Phosphatase 85 35 - 104 U/L 11/14/2012 7:50 PM PROCESSING SUPERVISOR 11/14/2012 7:55 PM PROCESSING SUPERVISOR Kenna Wakefield MEDICAL INFORMATION SPECIALIST LAB BLOOD ORDERABLES Final Result [facility] HISTORICAL RESULTS * CBC with auto differential (11/14/2012 7:50 PM PROCESSING SUPERVISOR) WBC 9.4 4.6 - 10.2 x10 3/ul 11/14/2012 8:05 PM PROCESSING SUPERVISOR [facility] HISTORICAL RESULTS RBC 4.57 3.76 - 4.80 x10 6/ul Hemoglobin 13.2 11.0 - 15.0 g/dl Hct 39.6 33.0 - 43.0 % MCV 86.7 80.0 - 97.0 fl MCH 28.9 27.0 - 31.2 pg MCHC 33.3 31.8 - 35.4 g/dl RDW 13.3 11.6 - 14.8 % Plt Count 255 124 - 400 x10 3/ul MPV 9.9 7.4 - 10.4 fl Differential Method AUTOMATED DIFF --------- -- Neut % 59.9 37.0 - 85.0 % Immature Gran % 0.3 0.0 - 3.0 % Lymph % 31.7 5.0 - 45.0 % [place] % 6.8 3.0 - 15.0 % Eos % 1.1 0.0 - 7.0 % Baso % 0.2 0.0 - 2.0 % ABSOLUTE COUNTS ABSOLUTE COUNTS --------- -- Absolute Neuts (auto) 5.6 1.7 - 8.7 x10 3/ul Immature Gran # 0.0 0.0 - 0.3 x10 3/ul 11/14/2012 8:05 PM PROCESSING SUPERVISOR [facility] HISTORICAL RESULTS Absolute Lymphs (auto) 3.0 0.2 - 4.6 x10 3/ul 11/14/2012 8:05 PM PROCESSING SUPERVISOR [facility] HISTORICAL RESULTS Absolute Monos (auto) 0.6 0.1 - 1.5 x10 3/ul 11/14/2012 8:05 PM PROCESSING SUPERVISOR [facility] HISTORICAL RESULTS Absolute Eos (auto) 0.1 0.0 - 0.7 x10 3/ul 11/14/2012 8:05 PM PROCESSING SUPERVISOR [facility] HISTORICAL RESULTS Absolute Basos (auto) 0.0 0.0 - 0.2 x10 3/ul 11/14/2012 7:50 PM PROCESSING SUPERVISOR 11/14/2012 7:55 PM PROCESSING SUPERVISOR Kenna Wakefield NP LAB BLOOD ORDERABLES Final Result [facility] HISTORICAL RESULTS documented in this encounter Visit Diagnoses Diagnosis Chest pain Unspecified chest pain documented in this encounter
--- OUTSIDE RECORDS SUMMARY | 2024-11-04 23:19 | XMS_ITS | Encounter Summary ---
Author Organization [facility] Healthcare Address [address] [place] [address] Care Team Providers Care T Rail Turner Name Role Phone Unavailable Primary Care Provider Unavailabl e Encounter Details Date Type Department Care Team (Latest Contact Info) Description 10/24/2017 12:40 PM PREFABRICATOR Hospital Encounter [facility] Armaan Steve MD [address] [facility] [address] [address] Abnormal findings on diagnostic imaging of other specified body structures Social History Tobacco Use Types Packs/Day Years Used Date Smoking Tobacco: Never Assessed Comments Unknown Sex and Gender Information Value Date Recorded Sex Assigned at Not on file Legal Sex Female 11:50 AM PREFABRICATOR Gender Identity Not on file Sexual Orientation Not on file documented as of this encounter Plan of Treatment Not on file documented as of this encounter Procedures Procedure Name Priority Date/Time Associated Diagnosis Comments CT CHEST WO CONTRAST Routine 10/24/2017 1:09 PM PREFABRICATOR CBC WITH AUTO DIFFERENTIAL Routine 10/24/2017 12:50 PM PREFABRICATOR IGE Routine 10/24/2017 12:50 PM PREFABRICATOR documented in this encounter Results * CT Chest WO Contrast (10/24/2017 1:09 PM PREFABRICATOR) Anatomical Region Laterality Modality Body N/A Computed Tomogra phy 10/24/2017 1:09 PM PREFABRICATOR Impressions 10/24/2017 10:[address] chest. Automated exposure control was used as a dose optimization technique for this examination. THIS IS AN ELECTRONICALLY VERIFIED REPORT 10/24/2017 10:28 PM: ??Jad Alas M.D. ?? Jad Alas M.D. CR:cr 10:28 PM 10:28 PM [facility] [EOD] Narrative 10/24/2017 10:31 PM PREFABRICATOR EXAMINATION: CT chest, without contrast COMPARISON: ??Conventional radiograph of the chest, 10/07/2017. ??CT chest, 06/19/2014. HISTORY: Follow-up abnormality on chest x-ray from 10/07/2017. TECHNIQUE: ??Axial images were obtained from the lung apices to the lung bases. Multiplanar reformatted images were reviewed. FINDINGS: Lungs are clear. ??No acute abnormalities. ??No worrisome nodules or masses. ??There is a linear area of scar or subsegmental atelectasis in the lingula. There is increased number of small lymph nodes in the mediastinum compared to the previous examination but these are all less than 1 cm. ??No axillary adenopathy. ??Elissa appear normal. ??No pleural or pericardial effusion. ??No significant abnormalities of the included portion of the upper abdomen. Procedure Note Provider, MD Erin - 03/24/2021 EXAMINATION: CT chest, without contrast COMPARISON: Conventional radiograph of the chest, 10/07/2017. CT chest, 06/19/2014. HISTORY: Follow-up abnormality on chest x-ray from 10/07/2017. TECHNIQUE: Axial images were obtained from the lung apices to the lungbases. Multiplanar reformatted images were reviewed. FINDINGS: Lungs are clear. No acute abnormalities. No worrisome nodules or masses. There is a linear area of scar or subsegmental atelectasis in the lingula. There is increased number of small lymph nodes in the mediastinum comparedto the previous examination but these are all less than 1 cm. No axillary adenopathy. Elissa appear normal. No pleural or pericardial effusion. No significant abnormalities of the included portion of the upper abdomen. IMPRESSION: Normal CT chest. Automated exposure control was used as a dose optimization technique forthis examination. THIS IS AN ELECTRONICALLY VERIFIED REPORT 10/24/2017 10:28 PM: Jad Alas M.D. Jad Alas M.D. CR:cr 10:28 PM 10:28 PM SHALOM [EOD] Armaan Powers MD IMG CT PROCEDURES Final Resu lt * (ABNORMAL) CBC with auto differential (10/24/2017 12:50 PM PREFABRICATOR) WBC 10.9(H) 4.6 - 10.2 x10 3/ul 10/24/2017 1:02 PM PREFABRICATOR [facility] HISTORICAL RESULTS RBC 4.47 3.76 - 4.80 x10 6/ul 10/24/2017 1:02 PM PREFABRICATOR [facility] HISTORICAL RESULTS Hemoglobin 12.2 11.0 - 15.0 g/dl 10/24/2017 1:02 PM PREFABRICATOR [facility] HISTORICAL RESULTS Hct 38.2 33.0 - 43.0 % 10/24/2017 1:02 PM PREFABRICATOR [facility] HISTORICAL RESULTS MCV 85.5 80.0 - 97.0 fl 10/24/2017 1:02 PM PREFABRICATOR [facility] HISTORICAL RESULTS MCH 27.3 27.0 - 31.2 pg 10/24/2017 1:02 PM PREFABRICATOR [place] HISTORICAL RESULTS MCHC 31.9 31.8 - 35.4 g/dl 10/24/2017 1:02 PM PREFABRICATOR [facility] HISTORICAL RESULTS RDW 14.4 11.6 - 14.8 % 10/24/2017 1:02 PM PREFABRICATOR [facility] HISTORICAL RESULTS Plt Count 306 124 - 400 x10 3/ul MPV 9.7 7.4 - 10.4 fl Neut % 61.9 37.0 - 85.0 % Immature Gran % 0.6 0.0 - 3.0 % Lymph % 31.0 5.0 - 45.0 % Edwards % 4.8 3.0 - 15.0 % Eos % 1.2 0.0 - 7.0 % Baso % 0.5 0.0 - 2.0 % Absolute Neuts (auto) 6.7 1.7 - 8.7 x10 3/ul Immature Gran # 0.1 0.0 - 0.3 x10 3/ul Absolute Lymphs (auto) 3.4 0.2 - 4.6 x10 3/ul Absolute Monos (auto) 0.5 0.1 - 1.5 x10 3/ul Absolute Eos (auto) 0.1 0.0 - 0.7 x10 3/ul Absolute Basos (auto) 0.1 0.0 - 0.2 x10 3/ul Nucleat RBC Rel Count 0.0 0 - 3 #/100WBC Absolute Nucleated RBC 0.00 x10 3/ul Absolute Neutrophils 6800 200 - 8000 /ul 10/24/2017 1:02 PM PREFABRICATOR [facility] HISTORICAL RESULTS 10/24/2017 12:5 0 PM PREFABRICATOR 10/24/2017 12:57 PM PREFABRICATOR us Armaan Powers MD LAB BLOOD ORDERABLES Final R esult Performing Organization Address City/[facility] Co de Phone Number [facility] HISTORICAL RESULTS * IgE (10/24/2017 12:50 PM PREFABRICATOR) IgE 48 0 - 100 IU/mL 10/24/2017 3:25 PM PREFABRICATOR [facility] HISTORICAL RESULTS 10/24/2017 12:5 0 PM PREFABRICATOR 10/24/2017 12:57 PM PREFABRICATOR us Armaan Powers MD LAB BLOOD ORDERABLES Final R esult [facility] HISTORICAL RESULTS documented in this encounter Visit Diagnoses Diagnosis Abnormal findings on diagnostic imaging of other specified body structures documented in this encounter
--- OUTSIDE RECORDS SUMMARY | 2024-11-04 23:19 | XMS_ITS | Encounter Summary ---
Author Organization [facility] Healthcare Address [address] [place] [address] Care Team Providers Care Fuel Conversion Technician Name Role Phone Unavailable Primary Care Provider Unavailabl e Encounter Details Date Type Department Care Team (Late st Contact Info) Description 06/22/2017 2:13 PM CDT Hospital Encounter [facility] OP eDsiree, Robyn Park, [address] [place] [address] Encounter for screening for infections with predominantly sexual mode of transmission; Encounter for screening for HIV Social History Tobacco Use Types Packs/Day Years Used Date Smoking Tobacco: Never Assessed Comments Unknown Sex and Gender Information Value Date Recorded Sex Assigned at Not on file Legal Sex Female 11:50 AM FRONT MAN Gender Identity Not on file Sexual Orientation Not on file documented as of this encounter Plan of Treatment Not on file documented as of this encounter Procedures Procedure Name Priority Date/Time Associated Diagnosis Comments HSV 1,2 COMBINED AB,IGG Routine 06/22/2017 2:24 PM CDT HSV 1/2 IGG W/ REFLEX TO 1&2 Routine 06/22/2017 2:24 PM CDT HIV-1/2 AG AND AB SCREEN, P Routine 06/22/2017 2:24 PM CDT HSV 1 AND 2 ANTIBODIES, IGM Routine 06/22/2017 2:24 PM CDT HEPATITIS C ANTIBODY Routine 06/22/2017 2:24 PM CDT RPR Routine 06/22/2017 2:24 PM CDT HEPATITIS B SURFACE ANTIGEN Routine 06/22/2017 2:24 PM CDT documented in this encounter Results * (ABNORMAL) HSV 1/2 IGG W/ REFLEX TO 1&2 (06/22/2017 2:24 PM CDT) HSV 1,2 COMBINED AB, IGG >22.40 IV Comment: Specimen tested positive for Herpes Simplex Virus Type 1 ?? and/or 2 Antibodies, IgG. ColorChip test codes [id number] and ?? [id number] will be added. Additional charges apply. ?? INTERPRETIVE INFORMATION: HSV 1/2 COMBINED Ab SCREEN, IgG ?0.89 IV or less.........Not Detected ?0.90-1.09 IV............Indeterminate- Repeat testing ?in 10-14 days may be helpful. ?1.10 IV or greater......Detected ?? The best evidence for current infection is a significant ?? change on two appropriately timed specimens, where both ?? tests are done in the same laboratory at the same time. ?? Performed by [facility], ?? [address] [facility] [place] [address] ?? www[employer], Suresh Cage MD, Lab. Director ?? HSV 1 Glycoprotein G IgG 15.60(H) <=0.90 IV Comment: INTERPRETIVE INFORMATION: HSV 1 Glycoprotein G Ab, IgG (ROCIO) ?0.90 IV or less ........ Negative - No significant level ? of detectable IgG antibody to ? HSV type 1 glycoprotein G. ?0.91 - 1.09 IV ......... Equivocal - Questionable ? presence of IgG antibody to HSV ? type 1 glycoprotein G. Repeat ? testing in 10-14 days may be ?? helpful. ?1.10 IV or greater ..... Positive - IgG antibody to HSV ? type 1 glycoprotein G detected, ? which may indicate a current or ? past HSV infection. ?? Individuals infected with HSV may not exhibit detectable ?? IgG antibody to type specific HSV antigens 1 and 2 in the ?? early stages of infection. Detection of antibody presence ?? in these cases may only be possible using a non-type ?? specific screening test. ?? Performed by [facility], ?? [address] [facility] [address] ?? www[employer], Suresh Cage MD, Lab. Director ?? HSV 2 Glycoprotein G IgG 19.10(H) <=0.90 IV Comment: INTERPRETIVE INFORMATION: HSV 2 Glycoprotein G Ab, IgG (ROCIO) ?0.90 IV or less ....... Negative - No significant level ?of detectable IgG antibody to ?HSV type 2 glycoprotein G. ?0.91 - 1.09 IV ........ Equivocal - Questionable ?presence of IgG antibody to HSV ?type 2 glycoprotein G. Repeat ?testing in 10-14 days may be ?? helpful. ?1.10 IV or greater .... Positive - IgG antibody to HSV ?type 2 glycoprotein G detected, ?which may indicate a current or ?past HSV infection. ?? Individuals infected with HSV may not exhibit detectable ?? IgG antibody to type specific HSV antigens 1 and 2 in the ?? early stages of infection. Detection of antibody presence ?? in these cases may only be possible using a non-type ?? specific screening test. ?? Performed by [facility], ?? [address] [facility] [address] ?? www[employer], Suresh Cage MD, Lab. Director ?? 06/22/2017 2:24 PM CDT 06/22/2017 2:29 PM CDT us Robyn Ramírez DO LAB BLOOD ORDERABLES F inal Result [facility]OR[facility] RESULTS * (ABNORMAL) HSV 1 and 2 antibodies, IgM (06/22/2017 2:24 PM CDT) HSV 1,2 COMBINED AB,IgM 1.20(H) <=0.89 IV Comment: INTERPRETIVE INFORMATION: Herpes Simplex Virus Type 1 ?? and/or 2 Antibodies, IgM by USMAN ?0.89 IV or Less .......... Not Detected ?0.90 - 1.09 IV ........... Indeterminate- Repeat testing ?? in ? 10-14 days may be helpful. ?1.10 IV or Greater ....... Detected-IgM antibody to HSV ? detected, which may indicate a ? current or recent infection. ? However, low levels of IgM ? antibodies may occasionally ? persist for more than 12 ? months post-infection. ?? Performed by [facility], ?? [address] [facility] [place] [address] ?? www[employer], Suresh Cage MD, Lab. Director ?? 06/22/2017 2:24 PM CDT 06/22/2017 2:29 PM CDT us Robyn Ramírez DO LAB MICROBIOLOGY - GEN ERAL ORDERABLES Final Result Performing Organization Address [facility] de Phone Number [facility] * HSV 1,2 combined AB, IgG (06/22/2017 2:24 PM CDT) HSV 1,2 COMBINED AB,IgG TNP 06/22/2017 2:24 PM CDT 06/22/2017 2:29 PM CDT us Robyn Ramírez DO LAB BLOOD ORDERABLES F inal Result Performing Organization Address [facility] de Phone Number [facility] * HIV-1/2 Ag and Ab Screen, P (06/22/2017 2:24 PM CDT) HIV Ag/Ab, 4th gen NONREACTIVE NONREACTIVE Comment: This assay tests for HIV-1, HIV-1 group O, and HIV-2 antibodies and p24 antigen. 06/22/2017 2:24 PM CDT 06/22/2017 2:29 PM CDT us Robyn Ramírez DO LAB BLOOD ORDERABLES F inal Result Performing Organization Address [facility] de Phone Number [facility] * RPR, serum (06/22/2017 2:24 PM CDT) Treponemal IgG NONREACTIVE NONREACTIVE 06/22/20 17 7:54 PM CDT [facility] Comment: ADVIA Centaur immunoassay to determine antibodies to Treponema pallidum. 06/22/2017 2:24 PM CDT 06/22/2017 2:29 PM CDT us Robyn Ramírez DO LAB MICROBIOLOGY - GEN ERAL ORDERABLES Final Result Performing Organization Address [facility] de Phone Number [facility] * Hepatitis C antibody (06/22/2017 2:24 PM [...] REACTIVE: Antibodies to Hepatitis C detected. 06/22/2017 2:2 4 PM CDT 06/22/2017 2:29 PM CDT Robyn Ramírez DO LAB MICROBIOLOGY - GEN ERAL ORDERABLES Final Result Performing Organization Address [facility] de Phone Number [facility] * Hepatitis B Surface Antigen (06/22/2017 2:24 PM CDT) HepBsAg NONREACT NONREACTIVE Comment: Siemens CentaurXP using ROCIO (chemiluminescent immunoassay) technology. NONREACTIVE: IgM antibodies to Hepatitis B Surface antigen not detected. REACTIVE: IgM antibodies to Hepatitis B Surface antigen detected. Reactive results will be confirmed by neutralization testing. 06/22/2017 2:24 PM CDT 06/22/2017 2:29 PM CDT Robyn Ramírez DO LAB MICROBIOLOGY - GEN ERAL ORDERABLES Final Result Performing Organization Address [facility] de Phone Number [facility] documented in this encounter Visit Diagnoses Diagnosis Encounter for screening for infections with predominantly sexual mode of transmission Encounter for screening for HIV documented in this encounter
--- OUTSIDE RECORDS SUMMARY | 2024-11-04 23:19 | XMS_ITS | Encounter Summary ---
Author Organization [facility] Healthcare Address [address] [place] [address] Care Team Providers Care Casting Wheel Operator Helper Name Role Phone Unavailable Primary Care Provider Unavailabl e Encounter Details Date Type Department Care Team (Latest Contact Info) Description 11/15/2016 2:46 PM DATA TYPIST Hospital Encounter [facility] OP Jose Umaña MD [address] [facility] [address] [address] Pain of right leg; Pain of left leg Social History Tobacco Use Types Packs/Day Years Used Date Smoking Tobacco: Never Assessed Comments Unknown Sex and Gender Information Value Date Recorded Sex Assigned at Not on file Legal Sex Female 11:50 AM DATA TYPIST Gender Identity Not on file Sexual Orientation Not on file documented as of this encounter Plan of Treatment Not on file documented as of this encounter Procedures Procedure Name Priority Date/Time Associated Diagnosis Comments US VEIN DUPLEX LOWER EXTREMITY BILATERAL COMPLETE Routine 11/15/2016 2:49 PM DATA TYPIST documented in this encounter Results * US Vein Duplex Lower Extremity Bilateral Complete (11/15/2016 2:49 PM DATA TYPIST) Anatomical Region Laterality Modality Vascular Bilateral Ultrasound 11/15/2016 2:49 PM DATA TYPIST Impressions 11/16/2016 11:19 AM DATA TYPIST ??Negative for deep vein thrombosis, bilateral lower extremities. NTS Job: [id number] Dictated By: Haroon Earl MD Dictated For: Haroon ??MD Rajat [EOD] Narrative 11/16/2016 11:19 AM DATA TYPIST DATE OF SERVICE: 11/16/2016 REASON FOR EXAMINATION: ??Leg pain. COMMENTS ON THE RIGHT: ??The veins throughout the right lower extremity show spontaneous and phasic flow with normal augmentation. ??They are competent and compressible. COMMENTS ON THE LEFT: ??Veins throughout the left lower extremity show spontaneous and phasic flow with normal augmentation. ??They are competent and compressible. OVERALL Procedure Note Provider, MD Erin - 03/24/2021 DATE OF SERVICE: 11/16/2016 REASON FOR EXAMINATION: Leg pain. COMMENTS ON THE RIGHT: The veins throughout the right lower extremityshow spontaneous and phasic flow with normal augmentation. They arecompetent and compressible. COMMENTS ON THE LEFT: Veins throughout the left lower extremity showspontaneous and phasic flow with normal augmentation. They are competentand compressible. OVERALL IMPRESSION: Negative for deep vein thrombosis, bilateral lowerextremities. NTS Job: [id number] Dictated By: Haroon Earl MD Dictated For: Haroon Earl MD [EOD] us Jose Umaña MD IMG US PROCEDURES Final Resul t documented in this encounter Visit Diagnoses Diagnosis Pain of right leg Pain of left leg documented in this encounter
--- OUTSIDE RECORDS SUMMARY | 2024-11-04 23:19 | XMS_ITS | Encounter Summary ---
Author Organization [facility] Healthcare Address [address] [place] [address] Care Team Providers Care Layer Off Name Role Phone Unavailable Primary Care Provider Unavailabl e Encounter Details Date Type Department Care Team (Late st Contact Info) Description 11/15/2018 11:15 AM DIRECTOR STATE PHARMACY Hospital Encounter [facility] OP Desiree, Robyn Park, DO [address] [place] [address] Abnormal uterine and vaginal bleeding, unspecified; Submucous leiomyoma of uterus Social History Tobacco Use Types Packs/Day Years Used Date Smoking Tobacco: Never Assessed Comments Unknown Sex and Gender Information Value Date Recorded Sex Assigned at Not on file Legal Sex Female 11:50 AM DIRECTOR STATE PHARMACY Gender Identity Not on file Sexual Orientation Not on file documented as of this encounter Plan of Treatment Not on file documented as of this encounter Procedures Procedure Name Priority Date/Time Associated Diagnosis Comments SCAN - PATHOLOGY 11/20/2018 12:0 0 AM DIRECTOR STATE PHARMACY documented in this encounter Results * SCAN - PATHOLOGY (11/20/2018 12:00 AM DIRECTOR STATE PHARMACY) Narrative 11/20/2018 12:00 AM DIRECTOR STATE PHARMACY Ordered by an unspecified provider. us Historical Provider Final Res ult documented in this encounter Visit Diagnoses Diagnosis Abnormal uterine and vaginal bleeding, unspecified Submucous leiomyoma of uterus documented in this encounter
--- OUTSIDE RECORDS SUMMARY | 2024-11-04 23:19 | XMS_ITS | Encounter Summary ---
Author Organization [facility] Healthcare Address [address] [place] [address] Care Team Providers Care Photoresist Contact Printer Name Role Phone Unavailable Primary Care Provider Unavailabl e Encounter Details Date Type Department Care Team (Late st Contact Info) Description 02/06/2014 10:40 AM CDT Hospital Encounter [facility] OP Desiree, Robyn Park, DO [address] [place] [address] Encounter for routine gynecological examination Social History Tobacco Use Types Packs/Day Years Used Date Smoking Tobacco: Never Assessed Comments Unknown Sex and Gender Information Value Date Recorded Sex Assigned at Not on file Legal Sex Female 11:50 AM FAMILY MEDICINE CHAIR Gender Identity Not on file Sexual Orientation Not on file documented as of this encounter Plan of Treatment Not on file documented as of this encounter Procedures Procedure Name Priority Date/Time Associated Diagnosis Comments SCAN - LABS 02/13/2014 12:00 AM CDT documented in this encounter Results * SCAN - LABS (02/13/2014 12:00 AM CDT) Narrative 02/13/2014 12:00 AM CDT Ordered by an unspecified provider. us Historical Provider Final Res ult documented in this encounter Visit Diagnoses Diagnosis Encounter for routine gynecological examination documented in this encounter
--- OUTSIDE RECORDS SUMMARY | 2024-11-04 23:19 | XMS_ITS | Encounter Summary ---
Author Organization [facility] Healthcare Address [address] [place] [address] Care Team Providers Care Welt Sole Layer Name Role Phone Rose Marie Norton NP Primary Care Provider Encounter Details Date Type Department Care Team (Late st Contact Info) Description 06/17/2020 2:51 PM CDT Hospital Encounter [facility] Rose Marie Norton, CREMATORY ATTENDANT [address] [place] [address] Social History Tobacco Use Types Packs/Day Years Used Date Smoking Tobacco: Former Smokeless Tobacco: Never Alcohol Use Standard Drinks/Week Comments Yes 0 (1 standard drink = 0.6 oz pur e alcohol) socially Comments No Sex and Gender Information Value Date Recorded Sex Assigned at Not on file Legal Sex Female 11:50 AM FISH PROCESSING SUPERVISOR Gender Identity Not on file [...] Priority Date/Time Associated Diagnosis Comments XR CHEST PA LATERAL 2 VIEWS 06/17/2020 2:54 PM CDT documented in this encounter Results * XR Chest Pa Lateral 2 Views (06/17/2020 2:54 PM CDT) Anatomical Region Laterality Modality Body, Chest N/A Radiographic Rosi ging 06/17/2020 7:22 PM CDT Narrative 06/17/2020 7:22 PM CDT Patient Name: TAMMY CERVANTES ?Ordering Dr: Rose Marie Norton ?? D.O.B: 1975 ? Exam Date: 06/17/20 ?? 1454 ?? Age: 44 ?Sex: Female ? MR#: [id number] ?? Loc: ? RADIOLOGY REPORT ?? Order #[id number] ?? Radiology ? Chest 2 Views ? Signed ? EXAM DESCRIPTION: ?? Chest 2 Views ? REASON FOR STUDY: ?? PT STATES SHE HAS HAD A COUGH AND SOME SOB X 4 DAYS ? TECHNIQUE: ?? Frontal and lateral radiographic views of the chest acquired. ? COMPARISON: ?? 10/17/2017 ? FINDINGS: ? LUNGS/PLEURA: ??No focal consolidation or pneumothorax. No pleural effusion. ? HEART/MEDIASTINUM: ??Heart size is normal. Normal mediastinal and hilar ?? contours. ? HARDWARE/LINES/TUBES: ??None. ? BONES: ??No acute findings. ? OTHER: ??No other significant finding. ? IMPRESSION: ?? No acute cardiopulmonary abnormality. ? THIS IS AN ELECTRONICALLY VERIFIED FINAL REPORT ?? 06/17/2020 7:22 PM - Electronically signed by Segun Mohamud M.D. ?? Segun Mohamud M.D. ? CH: ?? D: ??06/17/2020 7:22 PM ?? T: ??06/17/2020 7:22 PM ? Report ID: [id number] ?? Reading Location: ??[phone] ? REPORT ELECTRONICALLY SIGNED IN OTHER VENDOR SYSTEM ?? Resulting Agency Comment O Procedure Note Segun Mohamud Jr., MD - 06/17/2020 Patient Name: HELENTAMMY Dr: Rose Marie Norton D.O.B: 1975 Exam Date: 06/17/20 145 Age: 44 Sex: Female MR#: [id number] Loc: RADIOLOGY REPORT Order #[id number] Radiology Chest 2 Views Signed EXAM DESCRIPTION: Chest 2 Views REASON FOR STUDY: PT STATES SHE HAS HAD A COUGH AND SOME SOB X 4 DAYS TECHNIQUE: Frontal and lateral radiographic views of the chestacquired. COMPARISON: 10/17/2017 FINDINGS: LUNGS/PLEURA: No focal consolidation or pneumothorax. No pleuraleffusion. HEART/MEDIASTINUM: Heart size is normal. Normal mediastinal and hilar contours. HARDWARE/LINES/TUBES: None. BONES: No acute findings. OTHER: No other significant finding. IMPRESSION: No acute cardiopulmonary abnormality. THIS IS AN ELECTRONICALLY VERIFIED FINAL REPORT 06/17/2020 7:22 PM - Electronically signed by Segun Mohamud M.D. CH: SEEMA Report ID: [id number] Reading Location: [id number] REPORT ELECTRONICALLY SIGNED IN OTHER VENDOR SYSTEM Rose Marie Norton CREMATORY ATTENDANT IMG XR PROCEDURES Final Result documented in this encounter Visit Diagnoses Not on filedocumented in this encounter Care Teams Welt Sole Layer Relationship Specialty Start Date End Date Rose Marie Norton CREMATORY ATTENDANT [address] [place] [address] PCP - General 12/22/18 09/07/20 documented as of this encounter
--- OUTSIDE RECORDS SUMMARY | 2024-11-04 23:19 | XMS_ITS | Encounter Summary ---
Author Organization [facility] Healthcare Address [address] [place] [address] Care Team Providers Care Certified Industrial Hygienist Name Role Phone Unavailable Primary Care Provider Unavailabl e Encounter Details Date Type Department Care Team (Late st Contact Info) Description 01/01/2014 2:05 AM COMMISSARY OFFICER - 01/01/2014 3:55 AM COMMISSARY OFFICER Hospital Encounter [facility] Roberta Nieto MD [address] [facility] [place] [address] Chest pain Social History Tobacco Use Types Packs/Day Years Used Date Smoking Tobacco: Never Assessed Comments Unknown Sex and Gender Information Value Date Recorded Sex Assigned at Not on file Legal Sex Female 11:50 AM COMMISSARY OFFICER Gender Identity Not on file Sexual Orientation Not on file documented as of this encounter Last Filed Vital Signs Vital Sign Reading Time Taken Comments Blood Pressure 138/74 01/01/2014 2:08 AM COMMISSARY OFFICER Pulse 62 01/01/2014 2:08 AM COMMISSARY OFFICER Temperature 36.5 ??C (97.7 ??F) 01/01/2014 2:08 AM CS T Respiratory Rate - - Oxygen Saturation 99% 01/01/2014 2:08 AM COMMISSARY OFFICER Inhaled Oxygen Concentration - - Weight 111.6 kg (246 lb) 01/01/2014 2:08 AM COMMISSARY OFFICER Height 160 cm (5' 3 ) 01/01/2014 2:08 AM COMMISSARY OFFICER Body Mass Index 43.58 01/01/2014 2:08 AM COMMISSARY OFFICER documented in this encounter Plan of Treatment Not on file documented as of this encounter Procedures Procedure Name Priority Date/Time Associated Diagnosis Comments TNI WITH LIPID PANEL Routine 01/01/2014 2:50 AM COMMISSARY OFFICER CBC WITH AUTO DIFFERENTIAL Routine 01/01/2014 2:50 AM COMMISSARY OFFICER PROTIME-INR Routine 01/01/2014 2:50 AM COMMISSARY OFFICER D-DIMER, QUANTITATIVE Routine 01/01/2014 2:50 AM COMMISSARY OFFICER LIPASE Routine 01/01/2014 2:50 AM COMMISSARY OFFICER COMPREHENSIVE METABOLIC PANEL Routine 01/01/2014 2:50 AM COMMISSARY OFFICER XR CHEST PA LATERAL 2 VIEWS Routine 01/01/2014 12:00 AM COMMISSARY OFFICER documented in this encounter Results * Lipase (01/01/2014 2:50 AM COMMISSARY OFFICER) Lipase 27 13 - 60 U/L 01/01/2014 3:15 AM COMMISSARY OFFICER [facility] HISTORICAL RESULTS 01/01/2014 2:50 AM COMMISSARY OFFICER 01/01/2014 2:53 AM COMMISSARY OFFICER Roberta Mishra MD LAB BLOOD ORDERABLES Sandra l Result [facility] HISTORICAL RESULTS * TNI with LIPID PANEL (01/01/2014 2:50 AM COMMISSARY OFFICER) Troponin I < 0.300 0.000 - 0.300 ng/mL 01/01/2014 3:13 AM COMMISSARY OFFICER [facility] HISTORICAL RESULTS Comment: Reference using VIRA Chemiluminescence ? Negative: Repeat in 4-6 hours as indicated. Triglycerides 59 0 - 199 mg/dL 01/01/2014 3:[address] [facility] [employer] HISTORICAL RESULTS Comment:12 hr pc highly minna mmended for Triglyceride Cholesterol 166 0 - 199 mg/dL Comment: Borderline: ??200-239 High Risk: ?? >239 HDL Cholesterol 46 40 - 60 mg/dL Comment: Major Risk ?< 40 mg/dL Moderate Risk ?40-60 mg/dL Negative Risk ?? > 60 mg/dL LDL Cholesterol, Calc 108 0 - 130 mg/dL Comment:High Risk > 159 mg/d L 01/01/2014 2:50 AM COMMISSARY OFFICER 01/01/2014 2:53 AM COMMISSARY OFFICER Roberta Mishra MD LAB BLOOD ORDERABLES Sandra l Result Performing Organization Address [facility] Number [facility] HISTORICAL RESULTS * Protime-INR (01/01/2014 2:50 AM COMMISSARY OFFICER) Pathologist [facility] PT 12.8 12.2 - 14.8 SECONDS INR 0.93 0.01 - 5.99 Comment: Recommended Therapeutic range for Oral Anticoagulant Therapy No anti-coagulation therapy ? Normal Range: ?0.8-1.4 Anti-coagulation therapy ? Low intensity therapy ?2.0-3.0 ? High intensity therapy ?? 2.5-3.5 Critical Value ? Greater than or equal to 6.0 Patients should be monitored for serious bleeding. ?? 01/01/2014 2:50 AM COMMISSARY OFFICER 01/01/2014 2:53 AM COMMISSARY OFFICER us Roberta Mishra MD LAB BLOOD ORDERABLES Sandra l Result Performing Organization Address [facility] Number [facility] HISTORICAL RESULTS * D-dimer, quantitative (01/01/2014 2:50 AM COMMISSARY OFFICER) D-Dimer, Quantitative 0.27 0.00 - 0.50 FEUug/ml Comment: Studies indicate that a D-Dimer level of <0.50 FEUug/ml has a >95% negative predictive value for DVT,DIC,PE and other embolus conditions. ??Levels >0.50 FEUug/ml may be present in a wide variety of conditions and should not be considered diagnostic of any disease state. 01/01/2014 2:50 AM COMMISSARY OFFICER 01/01/2014 2:53 AM COMMISSARY OFFICER us Roberta Mishra MD LAB BLOOD ORDERABLES Sandra ludwig Result [facility] HISTORICAL RESULTS * (ABNORMAL) Comprehensive metabolic panel (01/01/2014 2:50 AM COMMISSARY OFFICER) [facility] Sodium 137 135 - 145 mmol/L Potassium 3.7 3.3 - 5.1 mmol/L Chloride 104 96 - 108 mmol/L Carbon Dioxide 26 22 - 32 mmol/L Anion Gap 7 Glucose 85 70 - 110 mg/dL BUN 18 6 - 20 mg/dL Creatinine 0.9 0.5 - 1.1 mg/dL Kidney Disease Stage [...] on dialysis @ Calcium 8.4(L) 8.6 - 10.2 mg/dL 01/01/2014 3:14 AM [employer] HISTORICAL RESULTS Comment: Reporting units changed on 08-23-2013 from mmol/L to mg/dL. Compare to previous results with caution. Total Protein 6.6 6.4 - 8.4 g/dL 01/01/2014 3:14 AM [employer] HISTORICAL RESULTS Albumin 3.9 3.5 - 5.2 g/dL 01/01/2014 3:14 AM [employer] HISTORICAL RESULTS Globulin 2.7 2.3 - 3.5 gm/dL 01/01/2014 3:14 AM [employer] HISTORICAL RESULTS Albumin/Globulin Ratio 1.4 1.1 - 1.8 01/01/2014 3:14 AM [employer] HISTORICAL RESULTS Total Bilirubin 0.2 0.0 - 1.2 mg/dL 01/01/2014 3:14 AM [employer] HISTORICAL RESULTS AST 15 0 - 32 U/L 01/01/2014 3:14 AM [employer] HISTORICAL RESULTS ALT 20 0 - 31 U/L 01/01/2014 3:14 AM [employer] HISTORICAL RESULTS Alkaline Phosphatase 92 35 - 104 U/L 01/01/2014 3:14 AM [employer] HISTORICAL RESULTS 01/01/2014 2:50 AM COMMISSARY OFFICER 01/01/2014 2:53 AM COMMISSARY OFFICER Roberta Mishra MD LAB BLOOD ORDERABLES Sandra ludwig Result [facility] [employer] HISTORICAL RESULTS * CBC with auto differential (01/01/2014 2:50 AM COMMISSARY OFFICER) WBC 9.9 4.6 - 10.2 x10 3/ul 01/01/2014 2:55 AM COMMISSARY OFFICER [employer] HISTORICAL RESULTS RBC 4.26 3.76 - 4.80 x10 6/ul 01/01/2014 2:55 AM COMMISSARY OFFICER [employer] HISTORICAL RESULTS Hemoglobin 12.4 11.0 - 15.0 g/dl 01/01/2014 2:55 AM COMMISSARY OFFICER [employer] HISTORICAL RESULTS Hct 38.1 33.0 - 43.0 % 01/01/2014 2:55 AM COMMISSARY OFFICER [employer] HISTORICAL RESULTS MCV 89.4 80.0 - 97.0 fl 01/01/2014 2:55 AM COMMISSARY OFFICER [employer] HISTORICAL RESULTS MCH 29.1 27.0 - 31.2 pg 01/01/2014 2:55 AM COMMISSARY OFFICER [employer] HISTORICAL RESULTS MCHC 32.5 31.8 - 35.4 g/dl 01/01/2014 2:55 AM COMMISSARY OFFICER [employer] HISTORICAL RESULTS RDW 13.7 11.6 - 14.8 % 01/01/2014 2:55 AM [employer] HISTORICAL RESULTS Plt Count 229 124 - 400 x10 3/ul 01/01/2014 2:55 AM COMMISSARY OFFICER [employer] HISTORICAL RESULTS MPV 9.5 7.4 - 10.4 fl 01/01/2014 2:55 AM COMMISSARY OFFICER [employer] HISTORICAL RESULTS Differential Method AUTOMATED DIFF --------- -- 01/01/2014 2:55 AM [employer] HISTORICAL RESULTS Neut % 49.7 37.0 - 85.0 % 01/01/2014 2:55 AM [employer] HISTORICAL RESULTS Immature Gran % 0.3 0.0 - 3.0 % 01/01/2014 2:55 AM [employer] HISTORICAL RESULTS Lymph % 41.9 5.0 - 45.0 % 01/01/2014 2:55 AM COMMISSARY OFFICER [employer] HISTORICAL RESULTS [place] % 5.2 3.0 - 15.0 % Eos % 2.2 0.0 - 7.0 % Baso % 0.7 0.0 - 2.0 % ABSOLUTE COUNTS ABSOLUTE COUNTS --------- -- 01/01/2014 2:55 AM COMMISSARY OFFICER [facility] HISTORICAL RESULTS Absolute Neuts (auto) 4.9 1.7 - 8.7 x10 3/ul Immature Gran # 0.0 0.0 - 0.3 x10 3/ul Absolute Lymphs (auto) 4.1 0.2 - 4.6 x10 3/ul Absolute Monos (auto) 0.5 0.1 - 1.5 x10 3/ul Absolute Eos (auto) 0.2 0.0 - 0.7 x10 3/ul Absolute Basos (auto) 0.1 0.0 - 0.2 x10 3/ul 01/01/2014 2:50 AM COMMISSARY OFFICER 01/01/2014 2:53 AM COMMISSARY OFFICER Roberta Mishra MD LAB BLOOD ORDERABLES Sandra ludwig Result [facility] HISTORICAL RESULTS * XR Chest Pa Lateral 2 Views (01/01/2014 12:00 AM COMMISSARY OFFICER) Anatomical Region Laterality Modality Body, Chest N/A Radiographic Rosi ging 01/01/2014 Impressions 01/01/2014 2:55 AM COMMISSARY OFFICER ??No definite acute cardiopulmonary process. THIS IS AN ELECTRONICALLY VERIFIED REPORT 01/01/2014 2:51 AM: ??Cris Lindsay M.D. Vy German:marcello 02:51 AM 02:51 AM SHP [EOD] Narrative 01/01/2014 2:55 AM COMMISSARY OFFICER EXAMINATION: ??CHEST HISTORY: ??Chest pain TECHNIQUE: ??PA and lateral views COMPARISON: ??12/16/2011 FINDINGS: ??There is no pneumonic consolidation, pleural fluid or pneumothorax. The cardiomediastinal silhouette is unremarkable. There is no pulmonary vascular congestion. The osseous structures are intact. Procedure Note Provider, MD Erin - 03/24/2021 EXAMINATION: CHEST HISTORY: Chest pain TECHNIQUE: PA and lateral views COMPARISON: 12/16/2011 FINDINGS: There is no pneumonic consolidation, pleural fluid orpneumothorax. The cardiomediastinal silhouette is unremarkable. There is no pulmonary vascular congestion. The osseous structures are intact. IMPRESSION: No definite acute cardiopulmonary process. THIS IS AN ELECTRONICALLY VERIFIED REPORT 01/01/2014 2:51 AM: Cris Lindsay M.D. Vy German:marcello 02:51 AM 02:51 AM SHP [EOD] Roberta Mishra MD IMG XR PROCEDURES Final R esult documented in this encounter Visit Diagnoses Diagnosis Chest pain Unspecified chest pain documented in this encounter
--- OUTSIDE RECORDS SUMMARY | 2024-11-04 23:19 | XMS_ITS | Encounter Summary ---
Author Organization [facility] Healthcare Address [address] [place] [address] Care Team Providers Care Forensic Medical Examiner Name Role Phone Unavailable Primary Care Provider Unavailabl e Encounter Details Date Type Department Care Team (Latest Contact Info) Description 06/11/2014 6:58 PM CDT - 06/11/2014 11:44 PM CDT Hospital Encounter [facility] Pleurisy; Acute upper respiratory infection; Esophageal reflux Social History Tobacco Use Types Packs/Day Years Used Date Smoking Tobacco: Never Assessed Comments Unknown Sex and Gender Information Value Date Recorded Sex Assigned at Not on file 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 Gender Identity Not on file Sexual Orientation Not on file documented as of this encounter Last Filed Vital Signs Vital Sign Reading Time Taken Comments Blood Pressure 127/86 06/11/2014 7:00 PM CDT Pulse 65 06/11/2014 7:00 PM CDT Temperature 36.9 ??C (98.4 ??F) 06/11/2014 7:00 PM CD T Respiratory Rate - - Oxygen Saturation 98% 06/11/2014 7:00 PM CDT Inhaled Oxygen Concentration - - Weight 113.4 kg (250 lb) 06/11/2014 7:00 PM CDT Height 160 cm (5' 3 ) 06/11/2014 7:00 PM CDT Body Mass Index 44.29 06/11/2014 7:00 PM CDT documented in this encounter Plan of Treatment Not on file documented as of this encounter Procedures Procedure Name Priority Date/Time Associated Diagnosis Comments TNI WITH LIPID PANEL Routine 06/11/2014 7:18 PM CDT CBC WITH AUTO DIFFERENTIAL Routine 06/11/2014 7:18 PM CDT APTT Routine 06/11/2014 7:18 PM CDT PROTIME-INR Routine 06/11/2014 7:18 PM CDT D-DIMER, QUANTITATIVE Routine 06/11/2014 7:18 PM CDT COMPREHENSIVE METABOLIC PANEL Routine 06/11/2014 7:18 PM CDT XR CHEST 1 VIEW Routine 06/11/2014 12:00 AM CDT documented in this encounter Results * D-dimer, quantitative (06/11/2014 7:18 PM CDT) Pathologist [facility] D-Dimer, Quantitative < 0.23 0.00 - 0.50 FEUug/ml 06/11/2014 10:52 PM CDT [facility] HISTORICAL RESULTS Comment: Studies indicate that a D-Dimer level of <0.50 FEUug/ml has a >95% negative predictive value for DVT,DIC,PE and other embolus conditions. ??Levels >0.50 FEUug/ml may be present in a wide variety of conditions and should not be considered diagnostic of any disease state. 06/11/2014 7:18 PM CDT 06/11/2014 7:31 PM CDT Clyde Drake LAB BLOOD ORDERABLES Sandra l Result [facility] HISTORICAL RESULTS * (ABNORMAL) TNI with LIPID PANEL (06/11/2014 7:18 PM CDT) Pathologist [facility] Troponin I < 0.300 0.000 - 0.300 ng/mL 06/11/2014 7:56 PM CDT [facility] HISTORICAL RESULTS Comment: Reference using VIRA Chemiluminescence ? Negative: Repeat in 4-6 hours as indicated. Triglycerides 138 0 - 199 mg/dL 06/11/2014 7:59 PM CDT [facility] HISTORICAL RESULTS Comment:12 hr pc highly minna mmended for Triglyceride Cholesterol 201(H) 0 - 199 mg/dL 06/11/2014 7:59 PM CDT [facility] HISTORICAL RESULTS Comment: Borderline: ??200-239 High Risk: ?? >239 HDL Cholesterol 56 40 - 60 mg/dL 06/11/2014 7:59 PM T [facility] HISTORICAL RESULTS Comment: Major Risk ?< 40 mg/dL Moderate Risk ?40-60 mg/dL Negative Risk ?? > 60 mg/dL LDL Cholesterol, Calc 117 0 - 130 mg/dL 06/11/2014 7:59 PM T [facility] HISTORICAL RESULTS Comment:High Risk > 159 mg/d L 06/11/2014 7:18 PM CDT 06/11/2014 7:31 PM CDT Clyde [place] [employer] LAB BLOOD ORDERABLES Sandra l Result [facility] HISTORICAL RESULTS * Protime-INR (06/11/2014 7:18 PM CDT) PT 13.2 12.2 - 14.8 SECONDS 06/11/2014 7:48 PM T [facility] HISTORICAL RESULTS INR 0.97 0.01 - 5.99 Comment: Recommended Therapeutic range for Oral Anticoagulant Therapy No anti-coagulation therapy ? Normal Range: ?0.8-1.4 Anti-coagulation therapy ? Low intensity therapy ?2.0-3.0 ? High intensity therapy ?? 2.5-3.5 Critical Value ? Greater than or equal to 6.0 Patients should be monitored for serious bleeding. ?? 06/11/2014 7:18 PM CDT 06/11/2014 7:31 PM CDT Clyde Drake LAB BLOOD ORDERABLES Sandra l Result Performing Organization Address [facility] Co de Phone Number [facility] HISTORICAL RESULTS * aPTT (06/11/2014 7:18 PM CDT) APTT 30 24 - 38 SECONDS 06/11/2014 7:48 PM T [facility] HISTORICAL RESULTS 06/11/2014 7:18 PM CDT 06/11/2014 7:31 PM CDT Clyde Tsaiman LAB BLOOD ORDERABLES Sandra l Result Performing Organization Address [facility] de Phone Number [facility] HISTORICAL RESULTS * (ABNORMAL) Comprehensive metabolic panel (06/11/2014 7:18 PM CDT) Sodium 139 135 - 145 mmol/L Potassium 3.9 3.3 - 5.1 mmol/L Chloride 104 96 - 108 mmol/L Carbon Dioxide 27 22 - 32 mmol/L Anion Gap 8 7 - 16 Glucose 123(H) 70 - 110 mg/dL BUN 17 6 - 20 mg/dL Creatinine 0.8 0.5 [...] Kidney failure or on dialysis @ Calcium 8.6 8.6 - 10.0 mg/dL Total Protein 7.0 6.6 - 8.7 g/dL Albumin 4.1 3.5 - 5.2 g/dL Globulin 2.9 2.3 - 3.5 gm/dL Albumin/Globulin Ratio 1.4 1.1 - 1.8 Total Bilirubin 0.3 0.0 - 1.2 mg/dL AST 19 0 - 32 U/L ALT 18 0 - 33 U/L Alkaline Phosphatase 77 35 - 104 U/L 06/11/2014 7:18 PM CDT 06/11/2014 7:31 PM CDT Clyde Drake LAB BLOOD ORDERABLES Sandra ludwig Result [facility] HISTORICAL RESULTS * (ABNORMAL) CBC with auto differential (06/11/2014 7:18 PM CDT) WBC 10.7(H) 4.6 - 10.2 x10 3/ul 06/11/2014 7:39 PM CDT [facility] HISTORICAL RESULTS RBC 4.45 3.76 - 4.80 x10 6/ul 06/11/2014 7:39 PM CDT [facility] HISTORICAL RESULTS Hemoglobin 12.9 11.0 - 15.0 g/dl 06/11/2014 7:39 PM CDT [facility] HISTORICAL RESULTS Hct 39.4 33.0 - 43.0 % 06/11/2014 7:39 PM CDT [facility] HISTORICAL RESULTS MCV 88.5 80.0 - 97.0 fl 06/11/2014 7:39 PM CDT [facility] HISTORICAL RESULTS MCH 29.0 27.0 - 31.2 pg 06/11/2014 7:39 PM CDT [facility] HISTORICAL RESULTS MCHC 32.7 31.8 - 35.4 g/dl 06/11/2014 7:39 PM CDT [facility] HISTORICAL RESULTS RDW 13.1 11.6 - 14.8 % 06/11/2014 7:39 PM CDT [facility] HISTORICAL RESULTS Plt Count 246 124 - 400 x10 3/ul 06/11/2014 7:39 PM CDT [facility] HISTORICAL RESULTS MPV 10.1 7.4 - 10.4 fl 06/11/2014 7:39 PM CDT [facility] HISTORICAL RESULTS Differential Method AUTOMATED DIFF --------- -- 06/11/2014 7:39 PM CDT [facility] HISTORICAL RESULTS Neut % 67.4 37.0 - 85.0 % 06/11/2014 7:39 PM CDT [facility] HISTORICAL RESULTS Immature Gran % 0.3 0.0 - 3.0 % 06/11/2014 7:39 PM CDT [facility] HISTORICAL RESULTS Lymph % 27.2 5.0 - 45.0 % 06/11/2014 7:39 PM CDT [facility] HISTORICAL RESULTS [place] % 3.1 3.0 - 15.0 % Eos % 1.5 0.0 - 7.0 % Baso % 0.5 0.0 - 2.0 % ABSOLUTE COUNTS ABSOLUTE COUNTS --------- -- Absolute Neuts (auto) 7.2 1.7 - 8.7 x10 3/ul Immature Gran # 0.0 0.0 - 0.3 x10 3/ul Absolute Lymphs (auto) 2.9 0.2 - 4.6 x10 3/ul Absolute Monos (auto) 0.3 0.1 - 1.5 x10 3/ul Absolute Eos (auto) 0.2 0.0 - 0.7 x10 3/ul Absolute Basos (auto) 0.1 0.0 - 0.2 x10 3/ul 06/11/2014 7:18 PM CDT 06/11/2014 7:31 PM CDT Clyde Drake LAB BLOOD ORDERABLES Sandra l Result [facility] HISTORICAL RESULTS * XR Chest 1 View (06/11/2014 12:00 AM CDT) Anatomical Region Laterality Modality Body, Chest N/A Radiographic Rosi ging 06/11/2014 Impressions 06/11/2014 7:42 PM CDT No evidence of acute pulmonary disease. No infiltrates or consolidation. THIS IS AN ELECTRONICALLY VERIFIED REPORT 06/11/2014 7:39 PM: ??Augustin Simon M.D. Augustin Simon M.D. NC:jey 07:39 PM 07:39 PM [facility] [EOD] Narrative 06/11/2014 7:42 PM CDT EXAMINATION: Portable chest HISTORY: Chest pain COMPARISON: 01/01/14 FINDINGS: Heart is normal in size. ??Cardiomediastinal silhouette is normal. No radiographic evidence of an infiltrate or consolidation. No evidence of ?? an effusion or concerning nodules. The bony thorax is intact. Procedure Note Provider, MD Erin - 03/24/2021 EXAMINATION: Portable chest HISTORY: Chest pain COMPARISON: 01/01/14 FINDINGS: Heart is normal in size. Cardiomediastinal silhouette is normal. No radiographic evidence of an infiltrate or consolidation. No evidenceof an effusion or concerning nodules. The bony thorax is intact. IMPRESSION: No evidence of acute pulmonary disease. No infiltrates or consolidation. THIS IS AN ELECTRONICALLY VERIFIED REPORT 06/11/2014 7:39 PM: Augustin Simon M.D. Augustin Simon M.D. NC:jey 07:39 PM 07:39 PM [facility] [EOD] Clyde Drake IMG XR PROCEDURES Final R esult documented in this encounter Visit Diagnoses Diagnosis Pleurisy Pleurisy without mention of effusion or current tuberculosis Acute upper respiratory infection Acute upper respiratory infections of unspecified site Esophageal reflux documented in this encounter
--- OUTSIDE RECORDS SUMMARY | 2024-11-04 23:19 | XMS_ITS | Encounter Summary ---
Author Organization [facility] Healthcare Address [address] [place] [address] Care Team Providers Care Adult Neurologist Name Role Phone Neil Stinson MD Primary Care Provid er Reason for Visit * Auth/Cert Specialty Diagnoses / Procedures Referred By Veronica t Referred To Contact Diagnoses hx polyps Procedures NE COLONOSCOPY FLX DX W/COLLJ SPEC WHEN PFRMD COLONOSCOPY Referral ID Status Reason Start Date Expiration Date Visits Re quested Visits Authorized [id number] 1 1 Encounter Details Date Type Department Care Team ([facility] Contact Info) Description 08/25/2022 12:00 PM CDT - 08/25/2022 12:30 PM CDT Surgery [facility] [address] [place] [id number] Kathy Bailey MD [address] [place] [id number] COLON REMOVAL HOT BIOPSY Surgery Details Date/Time Status Location OR Service Patient Class Case Cl ass Case Type Trauma Case? 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 ?? 2016 [employer]. Information is for End User's use only and may not be sold, redistributed or otherwise used for commercial purposes. All illustrations and images included in CareNotes?? are the copyrighted property of [employer]. or [employer]. The above information is an pharmacist's aide only. It is not intended as medical [...] in clinic chart. Job ID/Internal Job ID: [id number] * Kahty Bailey MD - 08/20/2022 12:00 AM CDT [...] in clinic chart. Job ID/Internal Job ID: [id number] documented in this encounter Nursing Notes * Rhonda Melgar RN - 08/11/2022 3:24 PM CDT No alcohol or smoking 12 hours before surgery [place] teeth but do not swallow Shower or bathe, do no apply powders or lotions Expect to remove wigs, dentures, partials, contact lenses, body pairings and prosthesis Leave all jewelry and valuables at home Bring your glasses and hearing aide/s Make plans for responcible adult ot drive you home or accompany you home Bring living will and/or power of privacy attorney paperwork if you have one Follow [...] Monitor Anesthesia Care Surgeon: Kathy Bailey MD Suggestion Clerk: Endoscopy Nurse: Tisha Garcia RN Dog Or Animal Sitter: Cass Jones MLT Anesthesia: Anesthesiologist: Vic Hernandez MD NURSE ASSESSOR: Cris Ray CRNA EBL: Minimal Complications: None [...] gastric) 08/25/2022 12:34 PM CDT Narrative PATHOLOGY [facility] - 08/26/2022 1:41 PM CDT [facility] Department of Pathology [address] [place] [address] ?? Note to Patients: ??This report may [...] : ??1975 (Age: 46) Gender: ??F Address: ??[address] [place] [address] ??[id number] Hospital #: [id number] Service: Surgery Location: Patient Type: B SDS [...] LAB PATHOLOGY ORDERABLES Final R esult PATHOLOGY [facility] * POC Blood Gas and Chemistries, Venous - (08/25/2022 11:37 AM CDT) Pathologist [facility] pH,denise POC 7.39 7.32 - 7.43 [facility] pCO2, denise POC 44 40 - 50 mmHg [facility] pO2,denise POC 46 mmHg [facility] Comment: Interpretive Data No reference range established. Current interpretive data was last revised 2020. HCO3, denise (Calc) POC 26 20 - 30 mmol/L [facility] Base excess, denise POC 1 mmol/L [facility] Comment: Interpretive Data No reference range established. Current interpretive data was last revised 2020. Hemoglobin, denise POC 15.3 11.9 - 15.5 g/dL [facility] Hematocrit, denise POC 45.0 35.6 - 45.5 % [facility] Sodium, denise POC 140 135 - 145 mmol/L [facility] Potassium, denise POC 3.8 3.3 - 4.9 mmol/L [facility] Comment: Interpretive Data This method is not able to assess for hemolysis, which may falsely increase potassium concentrations. If further testing is needed to evaluate this result, consider in-laboratory plasma potassium. Current Interpretive Data was last revised on 2022. Glucose, denise POC 88 70 - 199 mg/dL [facility] Ionized Calcium, denise POC 5.00 4.50 - 5.20 mg/dL [facility] Blood 08/25/2022 11:3 7 AM CDT 08/25/2022 11:37 AM CDT Kathy Bailey MD LAB POCT ORDERABLES - DEVICE Fin al Result [facility] [address] [facility] [place] [address] * POCT hCG, urine (08/25/2022 11:21 AM [...] 08/25/2022 documented in this encounter Care Teams Adult Neurologist Relationship Specialty Start Date End Date Neil Stinson MD [address] [place] [address] PCP - General Family Medicine 12/15/21 documented as of this encounter
--- OUTSIDE RECORDS SUMMARY | 2024-11-04 23:19 | XMS_ITS | Encounter Summary ---
Author Organization [facility] Healthcare Address [address] [place] [address] Care Team Providers Care Rn Transitional Care Name Role Phone Neil Stinson MD Primary Care Provid er Reason for Visit * Auth/Cert Specialty Diagnoses / Procedures Referred By Veronica t Referred To Contact Diagnoses hx polyps Procedures [place] COLONOSCOPY FLX DX W/COLLJ SPEC WHEN PFRMD COLONOSCOPY Referral ID Status Reason Start Date Expiration Date Visits Re quested Visits Authorized [id number] 1 1 Encounter Details Date Type Department Care Team (Late st Contact Info) Description 08/25/2022 12:19 PM CDT Anesthesia Event [facility] [address] [place] [address] Vic Hernandez MD [address] [place] [address] Porfirio Denny MD [address] [place] [address] Anesthesia Record Procedure Summary Procedure Name Responsible Anesthesiologist Anesthesia Start Time Anesthesia Stop Time COLON REMOVAL HOT BIOPSY (Colon) Vic Hernandez MD 08/25/22 1219 08/25/22 1244 Events Date Time Event Comment 08/25/2022 1201 1208 In Room 1219 An Start 1219 An Start Data 1221 An Induction The patient was reevaluated immediately before moderate or deep sedation use and before anesthesia induction. 1222 Anesthesia Ready 1222 Proc Start 1240 Proc Fin 1244 an stop data 1244 Handoff to RN I completed my handoff to the receiving nurse during which we: 1. Patient identified 2. Responsible provider identified 3. Pertinent medical history reviewed 4. Procedure type and surgical course discussed 5. Intraoperative anesthetic management and any significant issues discussed 6. Expectations and concerns for postop period discussed 7. Questions solicited from receiving nurse 8. Patient disposition at the time of handoff: PACU 1244 An Stop 1245 Out of Room Meds Name Total lidocaine (cardiac) syringe 2 % 50 mg propofol 100 mg propofol 551.46 mg Lactated Ringer's (LR) infusion 900 mL * Agents Name O2% N2O O2 N2O Air * Blood No blood administrations on file. 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 Gender Identity Not on file Sexual Orientation Not on file documented as of this encounter OR Notes * Anesthesia Postprocedure Evaluation - Estuardo Mendez MD - 08/25/2022 2:02 PM CDT Patient: Maria Del Carmen Ray Procedure Summary Date: 08/25/22 Room / Location: [facility] ENDOSCOPY ROOM 05 [facility] ENDOSCOPY Anesthesia Start: 1219 Anesthesia Stop: 1244 Procedure: COLON REMOVAL HOT BIOPSY (Colon) Diagnosis: (hx polyps) Providers: Kathy Bailey MD Responsible Provider: Vic Hernandez MD Anesthesia Type: MAC ASA Status: 3 Anesthesia Type: MAC Last vitals BP 121/91 (BP Location: Left arm) Pulse 60 Temp 36.4 ??C (97.6 ??F) (Tympanic) Resp 18 [id number] Anesthesia Post Evaluation Patient location during evaluation: PACU Patient participation: complete - patient participated Level of consciousness: fully awake Pain management: adequate Airway patency: adequate Cardiovascular status: acceptable Respiratory status: acceptable Hydration status: acceptable Pt is: normothermic Nausea/Vomiting status: none No notable events documented. * Anesthesia Preprocedure Evaluation - Vic Hernandez MD - 08/25/2022 12:01 PM CDT Images from the original note were not included. Anesthesia Evaluation Maria Del Carmen Ray is a 46 y.o. female Procedure(s): COLONOSCOPY * No Diagnosis Codes entered * HISTORY Past Medical History Information obtained from: patient and chart. Neurological Pertinent negatives: seizures; CVA/stroke and TIA Cardiovascular + Hypertension Pertinent negatives: CAD ; [place] and CABG Respiratory Pertinent negatives: COPD; asthma; sleep apnea ([facility]) and non-smoker Hepatic / Heme Pertinent negatives: liver disease and history of anemia Gastrointestinal + GERD Renal / Pertinent negatives: renal disease Endocrine / Other Pertinent negatives: diabetes mellitus and thyroid disease Functional Capacity Functional capacity: 4-6 METs Day of Surgery assessments + Possibility of assessed - HCG negative (see labs). COVID Negative istat noted EKG Normal sinus rhythm Inferior t wave abnormality When compared with ECG of 05-OCT-2014 16:14, Nonspecific T wave abnormality is now seen in lead aVF Specimen Collected: 09/08/20 12:18 Last Resulted: 09/08/20 21:13 There is no problem list on file for this patient. Past Medical History: Diagnosis Date ??? Abnormal uterine bleeding ??? Anxiety ??? GERD (gastroesophageal reflux disease) ??? Hypertension ??? Sciatic nerve pain Past Surgical History: Procedure Laterality Date ??? APPENDECTOMY ??? BILATERAL SALPINGOOPHORECTOMY 12/26/2018 ? ? D&C FIRST TRIMESTER / TX INCOMPLETE / MISSED / SEPTIC / INDUCED ??? HYSTERECTOMY 12/26/2018 OB History No obstetric history on file. Allergies Allergen Reactions ??? Amoxicillin Unknown and Rash Taking? Last Dose Start Date End Date Provider calcium citrate-vitamin D3 (CITRACAL+D) 315 mg-5 mcg (200 unit) per tablet 08/11/2022 -- -- Erin Mathews MD DOK 100 mg capsule Not Taking 12/27/18 -- Erin Mathews MD iron,carbonyl-vitamin C 65 mg iron- 125 mg tablet,delayed release (DR/EC) 08/11/2022 -- -- Erin Mathews MD naproxen (NAPROSYN) 500 mg tablet Not Taking 12/27/18 -- Erin Mathews MD No current facility-administered medications for this encounter. Current Outpatient Medications: ??? calcium citrate-vitamin D3 (CITRACAL+D) 315 mg-5 mcg (200 unit) per tablet ??? iron,carbonyl-vitamin C 65 mg iron- 125 mg tablet,delayed release (DR/EC) ??? DOK 100 mg capsule ??? naproxen (NAPROSYN) 500 mg tablet Social History Tobacco Use Smoking Status Former ??? Packs/day: 0.50 ??? Years: 15.00 ??? Pack years: 7.50 ??? Types: Cigarettes ??? Quit date: 2004 ??? Years since quittin.8 Smokeless Tobacco Never Alcohol Use: Unknown ??? Frequency of Alcohol Consumption: 4 or more times a week ??? Average Number of Drinks: 1 or 2 ??? Frequency of Binge Drinking: Not on file Substance and Sexual Activity Drug Use Never Family History Problem Relation Age of Onset ??? No Known Problems Brother ??? No Known Problems Daughter ??? No Known Problems Son ??? No Known Problems Son ??? No Known Problems Daughter ??? No Known Problems Daughter There were no vitals filed for this visit. PT: No results found for requested labs within last 720 hours. INR: No results found for requested labs within last 720 hours. APTT: No results found for requested labs within last 720 hours. Hgb A1C: No results found for requested labs within last 720 hours. CBC RBC: No results found for requested labs within last 720 hours. RDW: No results found for requested labs within last 720 hours. MCHC: No results found for requested labs within last 720 hours. MCH: No results found for requested labs within last 720 hours. MCV: No results found for requested labs within last 720 hours. Hct: No results found for requested labs within last 720 hours. Hgb: No results found for requested labs within last 720 hours. WBC: No results found for requested labs within last 720 hours. MPV: No results found for requested labs within last 720 hours. Platelets: No results found for requested labs within last 720 hours. RDW CV: No results found for requested labs within last 720 hours. RDW Sd: No results found for requested labs within last 720 hours. BMP Glucose: No results found for requested labs within last 720 hours. Calcium: No results found for requested labs within last 720 hours. Sodium: No results found for requested labs within last 720 hours. Potassium: No results found for requested labs within last 720 hours. CO2: No results found for requested labs within last 720 hours. Chloride: No results found for requested labs within last 720 hours. BUN: No results found for requested labs within last 720 hours. Creatinine: No results found for requested labs within last 720 hours. STOP-Bang Total Score: 1 DOS Physical Exam Medical history, medications, and allergies reviewed. Attestation: This PAT evaluation 08/25/2022. Airway Exam: Mallampati: II Cervical ROM: FROM Cardiovascular Exam: Rate: regular Rhythm: regular Negative for Murmur JVD negative Pulmonary Exam: LCTA, bilat Coarse breath sounds negative Crackles negative Basilar Crackles negative Rhonchi negative EENT Exam: trachea midline Skin Exam: Skin is warm. Current state: Patient's current state is cooperative and interactive. Anesthesia Plan ASA 3 My patient is approved for the Anesthesia Controlled Medication protocol when under care of a FLAG SIGNALMAN Planned anesthesia: MAC Comments: prn general anesthesia Induction: Induction: intravenous. Postoperative Plan: Postoperative administration opioids intended. Patient's planned disposition post procedure is Outpatient. Informed Consent: Discussed plan with FLAG SIGNALMAN. Anesthesia plan and risks discussed with patient. Consent and Attending signature: I and/or my designee have discussed the anesthesia plan, benefits, possible alternatives, parental presence at time of induction (if indicated), and clinically relevant risks that may include dental injury, unintentional awareness, and/or other complications. The patient and/or parent/legal guardian understand, and agree to proceed. All questions answered. documented in this encounter Plan of Treatment Not on file documented as of this encounter Visit Diagnoses Not on filedocumented in this encounter Administered Medications Inactive Administered Medications - up to 3 most recent administrations Medication Order MAR Action Action Date Dose Rate Site Lactated Ringer's (LR) infusion 30 mL/hr, intravenous, Continuous, Starting on Tue08/25/22 at 1130, Pre-Op, Restarted 08/25/2022 12:41 PM CDT Rate/Dose Verify 08/25/2022 12:19 PM CDT 30 mL/ hr New Bag 08/25/2022 11:37 AM CDT 30 mL/hr 30 mL/hr lidocaine (cardiac) (XYLOCAINE) preservative free injection intravenous, As needed, Starting on Tue08/25/22 at 1220, Anesthesia Intra-op, Indications: Ventricular ArrhythmiasIndications:V entricular Arrhythmias Given 08/25/2022 12:20 PM CDT 50 mg propofoL (DIPRIVAN) 10 mg/mL IV intravenous, As needed, Starting on Tue08/25/22 at 1220, Anesthesia Intra-op Given 08/25/2022 12:20 PM CDT 100 mg propofoL (DIPRIVAN) 10 mg/mL IV intravenous, Continuous PRN, Starting on Tue08/25/22 at 1220, Anesthesia Intra-op Rate/Dose Change 08/25/2022 12:37 PM CDT 200 mcg/kg/min 131.04 mL/hr New Bag 08/25/2022 12:20 PM CDT 250 mcg/kg/min 163.8 mL /hr documented in this encounter Care Teams Rn Transitional Care Relationship Specialty Start Date End Date Neil Stinson MD [address] [place] [address] PCP - General Family Medicine 12/15/21 documented as of this encounter
--- OUTSIDE RECORDS SUMMARY | 2024-11-04 23:19 | XMS_ITS | Encounter Summary ---
Author Organization [facility] Address [address] [place] [address] Care Team Providers Care Weld Inspector Name Role Phone Unavailable Primary Care Provider Unavailabl e Encounter Details Date Type Department Care Team (Late st Contact Info) Description 05/17/2016 9:12 PM CDT - 05/18/2016 1:20 AM CDT Hospital Encounter [facility] Wilner Delgado MD [address] [place] [address] Female pelvic inflammatory disease; Low back pain; Essential (primary) hypertension; Other detention (current) drug therapy; Personal history of nicotine dependence Social History Tobacco Use Types Packs/Day Years Used Date Smoking Tobacco: Never Assessed Comments Unknown Sex and Gender Information Value Date Recorded Sex Assigned at Not on file 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 Gender Identity Not on file Sexual Orientation Not on file documented as of this encounter Last Filed Vital Signs Vital Sign Reading Time Taken Comments Blood Pressure 120/75 05/17/2016 9:20 PM CDT Pulse 73 05/17/2016 9:20 PM CDT Temperature 36.6 ??C (97.9 ??F) 05/17/2016 9:20 PM CD T Respiratory Rate - - Oxygen Saturation 99% 05/17/2016 9:20 PM CDT Inhaled Oxygen Concentration - - Weight 113.4 kg (250 lb) 05/17/2016 9:20 PM CDT Height 160 cm (5' 3 ) 05/17/2016 9:20 PM CDT Body Mass Index 44.29 05/17/2016 9:20 PM CDT documented in this encounter Plan of Treatment Not on file documented as of this encounter Procedures Procedure Name Priority Date/Time Associated Diagnosis Comments VAGINAL PATHOGEN SCREEN Routine 05/18/2016 1:16 AM CDT N. GONORRHOEAE DNA PROBE GENITAL OR URINE Routine 05/18/2016 1:16 AM CDT URINALYSIS AND REFLEX TO MICROSCOPIC AND CULTURE Routine 05/17/2016 11:54 PM CDT CBC WITH AUTO DIFFERENTIAL Routine 05/17/2016 11:46 PM CDT HCG, BLOOD, QUANTITATIVE Routine 05/17/2016 11:46 PM CDT COMPREHENSIVE METABOLIC PANEL Routine 05/17/2016 11:46 PM CDT documented in this encounter Results * VAGINAL PATHOGEN SCREEN (05/18/2016 1:16 AM CDT) Trichomonas vaginalis NEGATIVE NEGATIVE 05/18/2016 6:52 AM CDT [employer] HISTORICAL RESULTS GARDNERELLA SCREEN NEGATIVE NEGATIVE 2015 6:52 AM CDT [facility] [employer] HISTORICAL RESULTS Catalina species DNA NEGATIVE NEGATIVE 05/18/2016 6:52 AM CDT [facility] Comment: A positive result for Catalina, Gardnerella and/or Trichomonas means nucleic acid for Catalina species (C.albicans,C.glabrata,Ckefyr,C.krusei,C.parapsilosis, C.tropicalis),G.vaginalis and/or T.vaginalis,respectively, is present in the sample and indicates the patient has candidasis, bacterial vaginosis, and/or trichomoniasis when consisent with clinical signs and symptoms. Simultaneous infections by more than one organism are common. Negative results,for Catalina,Gardnerella,or Trichomonas test suggest the patient does not have candidasis,bacterial vaginosis and/or trichomoniasis, respectively, when consistent with clinical signs and symptoms. 05/18/2016 1:16 AM CDT 05/18/2016 1:30 AM CDT Narrative [facility] - 05/18/2016 6:52 AM CDT Collected By bf ?? Collected By BF us Wilner Alcantar MD LAB BLOOD ORDERABLES Final Result [facility] HISTORICAL RESULTS * N. gonorrhoeae DNA probe, genital or urine (05/18/2016 1:16 AM CDT) C. trachomatis RNA CT NOT DETECTED Comment:Chlamydia trachomati s is not detected. C. trachomatis RNA NG NOT DETECTED Comment:Neisseria gonorrhoea e is not detected. Chlamydia/GC Source ENDO/VAG Comment: Xpert CT/NG Assay performance has not been evaluated in female patients <14 years of age and male patients <17 years of age[address] Xpert CT/NG Assay performance has not been evaluated in patients with a history of hysterectomy. For patients <=14 years old The [employer] Chlamydia trachomatis/Neisseria gonorrhoeae Amplified DNA Assay should not be used for the evaluation of suspected sexual abuse or for other medico-legal indications. Additional testing is recommended in any circumstance when false positive or false negative results could lead to adverse medical, social or psychological consequences. 05/18/2016 1:16 AM CDT 05/18/2016 1:30 AM CDT Narrative [facility]ISTOR[facility] RES[facility] - 05/18/2016 1:31 AM CDT Collected By bf ?? Collected By BF us Wilner Alcantar MD LAB MICROBIOLOGY - GENERAL ORDERABLES Final Result [facility] HISTORICAL RESULTS * (ABNORMAL) Urinalysis reflex to microscopic and culture (05/17/2016 11:54 PM CDT) Ur Collection Type CLEAN CATCH 05/18/2016 12:[address] [facility] Ur Culture Indicated? C&S NOT INDICATED 05/18/2016 12:[address] [facility] HISTORICAL RESULTS Urine Color YELLOW YELLOW 05/18/2016 12:[address] [facility] HISTORICAL RESULTS Urine Clarity HAZY CLEAR 05/18/2016 12:[address] [facility] HISTORICAL RESULTS Urine Glucose (UA) NORMAL NORMAL mg/dL 05/18/2016 12:[address] [facility] HISTORICAL RESULTS Urine Bilirubin NEGATIVE NEGATIVE mg/dl 05/18/2016 12:[address] [facility] Urine Ketones 5(H) NEGATIVE mg/dL 05/18/2016 12:[address] [facility] HISTORICAL RESULTS Ur Specific [place] 1.021 1.005 - 1.025 05/18/2016 12:[address] [facility] HISTORICAL RESULTS Urine Blood 0.03(H) NEGATIVE mg/dl 05/18/2016 12:[address] [facility] HISTORICAL RESULTS Urine pH 5.0 5.0 - 8.0 05/18/2016 12:[address] [facility] Urine Protein NEGATIVE NEGATIVE mg/dL 05/18/2016 12:[address] [facility] Urine Urobilinogen NORMAL NORMAL mg/dL 05/18/2016 12:[address] [facility] Urine Nitrite NEGATIVE NEGATIVE 05/18/2016 12:[address] [facility] Ur Leukocyte Esterase NEGATIVE NEGATIVE Denzel/ul 05/18/2016 12:[address] [facility] Ur Microscopic Review Indicated or Ordered 05/18/2016 12:[address] [facility] Urine RBC 2 0 - 2 /HPF 05/18/2016 12:[address] [facility] Urine WBC 1 0 - 2 /HPF 05/18/2016 12:[address] [facility] Urine Bacteria Rare /HPF 05/18/2016 12:[address] [facility] Urine Mucus Marked /LPF 05/18/2016 12:[address] [facility] Ur Squamous Epith Cells Few /LPF 05/17/2016 11:5 4 PM CDT 05/18/2016 12:03 AM CDT Narrative [facility] HISTORICAL RESULTS - 05/18/2016 12:12 AM CDT us Wilner Alcantar MD LAB MICROBIOLOGY - GENERAL ORDERABLES Final Result [facility] HISTORICAL RESULTS * hCG, blood, quantitative (05/17/2016 11:46 PM CDT) Beta HCG, Quant < 0.1 0.0 - 1.0 mIU/mL Comment: Weeks of preg ?BHCG ? Weeks [...] for the early detection of . ? 05/17/2016 11:4 6 PM CDT 05/17/2016 11:50 PM CDT us Wilner Alcantar MD LAB BLOOD ORDERABLES Final Result [facility] HISTORICAL RESULTS * Comprehensive metabolic panel (05/17/2016 11:46 PM CDT) Sodium 141 135 - 145 mmol/L 05/18/2016 12:[address] [facility] HISTORICAL RESULTS Potassium 3.9 3.3 - 5.1 mmol/L 05/18/2016 12:[address] [facility] HISTORICAL RESULTS Chloride 104 96 - 108 mmol/L 05/18/2016 12:[address] [facility] HISTORICAL RESULTS Carbon Dioxide 25 22 - 32 mmol/L 05/18/2016 12:[address] [facility] HISTORICAL RESULTS Anion Gap 12 7 - 16 05/18/2016 12:[address] [facility] HISTORICAL RESULTS Glucose 85 70 - 100 mg/dL 05/18/2016 12:[address] [facility] HISTORICAL RESULTS BUN 12 6 - 20 mg/dL 05/18/2016 12:[address] [facility] HISTORICAL RESULTS Creatinine 0.9 0.5 - 1.1 mg/dL 05/18/2016 12:[address] [facility] HISTORICAL RESULTS Comment: NOTE: Estimated GFR (Cockroft-Gault) will NOT be calculated unless patient Height and Weight were entered. Also, Kidney Disease Stage (GFR) and Estimated GFR (Cockroft-Gault) will NOT be calculated if Creatinine result is <0.2. Kidney Disease Stage 90 mL/MIN 05/18/2016 12:[address] [facility] HISTORICAL RESULTS Comment: NOTE; ??The GFR [...] or on dialysis @ Est GFR (Cockcroft-G) 102 ml/MIN 05/18/2016 12:[address] [facility] Calcium 8.9 8.6 - 10.0 mg/dL 05/18/2016 12:[address] [facility] Total Protein 6.7 6.4 - 8.3 g/dL 05/18/2016 12:[address] [facility] Albumin 3.9 3.5 - 5.2 g/dL 05/18/2016 12:[address] [facility]ULTS Globulin 2.8 2.3 - 3.5 gm/dL 05/18/2016 12:[address] [facility] Albumin/Globulin Ratio 1.4 1.1 - 1.8 05/18/2016 12:[address] [facility] HISTOR[facility] RESULTS Total Bilirubin 0.4 0.0 - 1.2 mg/dL 05/18/2016 12:[address] [facility]ULTS AST 15 0 - 32 U/L 05/18/2016 12:[address] [facility] ALT 14 0 - 33 U/L Alkaline Phosphatase 64 35 - 104 U/L 05/17/2016 11:4 6 PM CDT 05/17/2016 11:50 PM CDT Wilner Alcantar MD LAB BLOOD ORDERABLES Final Result [facility] HISTORICAL RESULTS * (ABNORMAL) CBC with auto differential (05/17/2016 11:46 PM CDT) WBC 13.9(H) 4.6 - 10.2 x10 3/ul 05/17/2016 11:53 PM CDT [facility] RBC 4.10 3.76 - 4.80 x10 6/ul 05/17/2016 11:53 PM CDT [facility] Hemoglobin 11.1 11.0 - 15.0 g/dl 05/17/2016 11:53 PM CDT [facility] Hct 34.9 33.0 - 43.0 % 05/17/2016 11:53 PM CDT [facility] MCV 85.1 80.0 - 97.0 fl 05/17/2016 11:53 PM CDT [facility] MCH 27.1 27.0 - 31.2 pg 05/17/2016 11:53 PM CDT [facility] MCHC 31.8 31.8 - 35.4 g/dl 05/17/2016 11:53 PM CDT [facility] RDW 13.7 11.6 - 14.8 % 05/17/2016 11:53 PM CDT [facility] Plt Count 266 124 - 400 x10 3/ul 05/17/2016 11:53 PM CDT [facility] MPV 9.4 7.4 - 10.4 fl 05/17/2016 11:53 PM CDT [facility] Neut % 72.6 37.0 - 85.0 % 05/17/2016 11:53 PM CDT [facility] Immature Gran % 0.3 0.0 - 3.0 % 05/17/2016 11:[address] [facility] HISTORICAL RESULTS Lymph % 21.1 5.0 - 45.0 % 05/17/2016 11:[address] [facility] HISTORICAL RESULTS Blount % 4.3 3.0 - 15.0 % 05/17/2016 11:[address] [facility] HISTORICAL RESULTS Eos % 1.3 0.0 - 7.0 % 05/17/2016 11:[address] [facility] HISTORICAL RESULTS Baso % 0.4 0.0 - 2.0 % 05/17/2016 11:[address] [facility] HISTORICAL RESULTS Absolute Neuts (auto) 10.1(H) 1.7 - 8.7 x10 3/ul 05/17/2016 11:[address] [facility] HISTORICAL RESULTS Immature Gran # 0.0 0.0 - 0.3 x10 3/ul 05/17/2016 11:[address] [facility] HISTORICAL RESULTS Absolute Lymphs (auto) 2.9 0.2 - 4.6 x10 3/ul 05/17/2016 11:[address] [facility] HISTORICAL RESULTS Absolute Monos (auto) 0.6 0.1 - 1.5 x10 3/ul 05/17/2016 11:[address] [facility] HISTORICAL RESULTS Absolute Eos (auto) 0.2 0.0 - 0.7 x10 3/ul 05/17/2016 11:[address] [facility] HISTORICAL RESULTS Absolute Basos (auto) 0.1 0.0 - 0.2 x10 3/ul 05/17/2016 11:[address] [facility] HISTORICAL RESULTS 05/17/2016 11:4 6 PM CDT 05/17/2016 11:50 PM CDT Wilner Alcantar MD LAB BLOOD ORDERABLES Final Result [facility] HISTORICAL RESULTS documented in this encounter Visit Diagnoses Diagnosis Female pelvic inflammatory disease Unspecified inflammatory disease of female pelvic organs and tissues Low back pain Lumbago Essential (primary) hypertension Unspecified essential hypertension Other detention (current) drug therapy Personal history of nicotine dependence documented in this encounter
--- OUTSIDE RECORDS SUMMARY | 2024-11-04 23:19 | XMS_ITS | Encounter Summary ---
Author Organization [facility] Care Team Providers Care Casing Machine Operator Name Role Phone No, Physician Primary Care Provider Rose Marie Norton NP Primary Care Provider [phone] Rehan Mendoza MD Primary Care Provider [phone] Rose Marie Norton [facility] Primary Care Provider [phone] Neil Stinson MD Primary Care Provid er Encounter Details Date Type Department Care Team (Latest Contact Info) Description 12/14/2018 Orders Only [facility] ProviderErin MD [address] [place] [id number] Social History Tobacco Use Types Packs/Day Years Used Date Smoking Tobacco: Never Assessed Comments Unknown Sex and Gender Information Value Date Recorded Sex Assigned at Not on file 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 Historical Provider Final Res ult documented in this encounter Visit Diagnoses Not on filedocumented in this encounter Care Teams Casing Machine Operator Relationship Specialty Start Date End Date No, Physician PCP - General 11/21/18 12/21/18 Rose Marie Norton, [facility] [address] [place], [place] [id number] PCP - General 12/22/18 09/07/20 Rehan Mendoza MD [address] [place], [place] [address] PCP - General 09/08/20 12/17/20 Rose Marie Norton, [facility] [address] [place], [place] [address] PCP - General 12/18/20 12/14/21 Neil Stinson MD [address] [place], [place] [phone] PCP - General Family Medicine 12/15/21 documented as of this encounter
--- OUTSIDE RECORDS SUMMARY | 2024-11-04 23:54 | XMS_ITS | Encounter Summary ---
Author Organization [facility] Address [address] [place] [address] Care Team Providers Care Family Preservation Worker Name Role Phone Unavailable Primary Care Provider Unavailabl e Encounter Details Date Type Department Care Team (Late st Contact Info) Description 10/08/2022 Orders Only [facility] [address] [place] [phone] Vianey Llanes, HOUSEKEEPING AID-DAIRY CONSULTANT [address] [place] [address] S/P laparoscopic sleeve gastrectomy; Iron deficiency; Vitamin [...] Sex Assigned at Female 11/25/2020 1:10 PM CISTERN ROOM OPERATOR Gender Identity Female 11/25/2020 1:10 PM CISTERN ROOM OPERATOR Sexual Orientation Straight 02/02/2021 4: 19 [...] Description 03/15/2025 10:00 AM CDT Office Visit [facility] [address] [place] [phone] Vianey Llanes, HOUSEKEEPING AID-DAIRY CONSULTANT [address] [place], [place] [phone] 03/15/2025 10:30 AM CDT Clinical Support [facility] [address] [place] [phone] documented as of this encounter Procedures Procedure Name Priority Date/Time Associated Diagnosis Comments PTH INTACT+CALCIUM Routine 12/30/2022 10 :30 AM CISTERN ROOM OPERATOR Vitamin D deficiency 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) VITAMIN B1 Routine 12/30/2022 10:30 AM CISTERN ROOM OPERATOR S/P laparoscopic sleeve gastrectomy Vitamin B1 deficiency VITAMIN D 25-HYDROXY Routine 12/30/2022 10:30 AM CISTERN ROOM OPERATOR Vitamin D deficiency 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 Approximately 90 percent of vitamin B1 present in whole blood is TDP. Thiamine and thiamine monophosphate, which comprise the remaining 10 percent, are not measured. This test was developed and its performance characteristics determined by [facility] [employer]. It has not been cleared or approved by the [place] Food and Drug Administration. This test was performed in a CLIA certified laboratory and is intended for clinical purposes. Performed By: [place] [address] [employer] Assistant Football Coach: Zach Bello MD, PhD Blood BLOOD SPECIMEN / Unknown Lab Venipuncture / Unknown 12/30/2022 10:30 AM CISTERN ROOM OPERATOR 12/30/2022 10:41 AM CISTERN ROOM OPERATOR V[facility]ey [facility]anes [facility] - CHEMISTRY ORDERABLES Performing Organization Address [facility]/ZIP Co de Phone Number [address] * (ABNORMAL) PTH INTACT+CALCIUM (12/30/2022 10:30 AM CISTERN ROOM OPERATOR) PTH Intact 39 15 - 65 pg/mL 01/01/2023 1:23 PM CISTERN ROOM OPERATOR [facility]) Calcium 10.1(H) 8.6 - 10.0 mg/dL 01/01/2023 1:23 PM CISTERN ROOM OPERATOR [facility]) Comment: Performed By: [facility] [employer] [address] [place] [address] [employer] Assistant Football Coach: Zach Bello MD, PhD Blood BLOOD SPECIMEN / Unknown Lab Venipuncture / Unknown 12/30/2022 10:30 AM CISTERN ROOM OPERATOR 12/30/2022 10:41 AM CISTERN ROOM OPERATOR Vianey Llanes [facility] - CHEMISTRY ORDERABLES Performing Organization Address City/[facility]/ZIP Co de Phone Number [facility]) [address] [place] [address] * (ABNORMAL) VITAMIN D 25-HYDROXY (12/30/2022 10:30 AM CISTERN ROOM OPERATOR) Vitamin D, 25 Hydroxy 28.2(L) 30 - 100 ng/mL 12/30/2022 11:22 AM CISTERN ROOM OPERATOR [facility] Blood BLOOD SPECIMEN / Unknown Lab Venipuncture / Unknown 12/30/2022 10:30 AM [facility] 12/30/2022 10:41 AM [facility] Narrative [facility] - 12/30/2022 11:22 AM [facility] Reference Values: The recommendation for [...] performed to confirm the result. Vianey Llanes APRN-[facility] - CHEMISTRY ORDERABLES Performing Organization Address [facility] de Phone Number [facility] [address] * IRON + TRANSFERRIN PANEL (12/30/2022 10:30 AM [facility]) Iron 98 50 - 170 ug/dL 12/30/2022 11:[address] [facility] Transferrin 275 180 - 382 mg/dL 12/30/2022 11:[address] [facility] TIBC Calculated 344 261 - 497 ug/dL 12/30/2022 11:[address] [facility] Iron Saturation % 29 11 - 45 % 12/30/2022 11:[address] [facility] Blood BLOOD SPECIMEN / Unknown Lab Venipuncture / Unknown 12/30/2022 10:30 AM [facility] 12/30/2022 10:41 AM [facility] Vianey Llanes APRN-[facility] - CHEMISTRY ORDERABLES Performing Organization Address [facility] de Phone Number [facility] [address] documented in this encounter Visit Diagnoses Diagnosis S/P laparoscopic sleeve gastrectomy Iron deficiency Other disorders of iron metabolism Vitamin D deficiency 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
--- OUTSIDE RECORDS SUMMARY | 2024-11-04 23:54 | XMS_ITS | Encounter Summary ---
Author Organization [facility] Health Address [address] [facility] [place] [address] Care Team Providers Care Detective Sergeant Name Role Phone Unavailable Primary Care Provider Unavailabl e Reason for Visit * Reason Onset Date Comments Refill Request 07/07/2021 Encounter Details Date Type Department Care Team (Late st Contact Info) Description 07/07/2021 Telephone [facility] [address] [place] [phone] Raisa Schmidt MD [address] [place] [phone] Refill Request Social History Tobacco Use Types Packs/Day Years Used Date Smoking Tobacco: Former Cigarettes Q uit: 06/2020 Smokeless Tobacco: Never Alcohol Use Standard Drinks/Week Comments Not Currently 14 (1 standard drink = 0.6 oz pu re alcohol) Sex and Gender Information Value Date Recorded Sex Assigned at Female 11/25/2020 1:10 PM E COMMERCE SPECIALIST Gender Identity Female 11/25/2020 1:10 PM E COMMERCE SPECIALIST Sexual Orientation Straight 02/02/2021 4: 19 [...] regarding refill. Pt voices understanding. [facility] uses [facility] [place] [facility] pharmacy. Spoke with Dr. Schmidt. Omeprazole 40 mg refilled with 3 refills. Script sent to pharmacy. documented in this encounter Plan of Treatment Upcoming Encounters Date Type Department Care Team (Late st Contact Info) Description 03/15/2025 10:00 AM CDT Office Visit [facility] [address] [place] [phone] Vianey Llanes, LOADER ENGINEER-BRAND ADVOCATE [address] [place] [address] 03/15/2025 10:30 AM CDT Clinical Support [facility] [address] [place] [phone] documented as of this encounter Visit Diagnoses Not on filedocumented in this encounter
--- OUTSIDE RECORDS SUMMARY | 2024-11-04 23:54 | XMS_ITS | Encounter Summary ---
Author Organization [facility] Health Address [address] [facility] [place] [address] Care Team Providers Care Systems Developer Name Role Phone Unavailable Primary Care Provider Unavailabl e Encounter Details Date Type Department Care Team (Late st Contact Info) Description 12/24/2022 Orders Only [facility] Health Weight Management Services [address] [place] [phone] Raisa Schmidt MD [address] [place] [address] History of tobacco use Social [...] Sex Assigned at Female 11/25/2020 1:10 PM PATTERNMAKER WOOD Gender Identity Female 11/25/2020 1:10 PM PATTERNMAKER WOOD Sexual Orientation Straight 02/02/2021 4: 18 PM [...] 12/24/2022 7:49 AM CST Nicotine testing ordered. ERNMAKER WOOD documented in this encounter Plan of Treatment Upcoming Encounters Date Type Department Care Team (Late st Contact Info) Description 03/15/2025 10:00 AM CDT Office Visit [facility] Health Weight Management Services [address] [place] [address] Vianey Llanes, CLINICAL ACCOUNT MANAGER-TRAVEL REGISTERED NURSE PACU [address] [place], [place] [address] 03/15/2025 10:30 AM CDT Clinical Support [facility] Health Weight Management Services [address] [place] [phone] documented as of this encounter Results * NICOTINE + METABOLITES BLOOD (12/30/2022 10:30 AM PATTERNMAKER WOOD) Nicotine <5 ng/mL 01/04/2023 1:35 AM PATTERNMAKER WOOD [facility] ([facility]) Comment: Consistent with abstinence from nicotine-containing products [...] developed and its performance characteristics determined by [facility]. It has not been cleared or approved by the US Food and Drug Administration. This test was performed in a CLIA certified laboratory and is intended for clinical purposes. Performed By: [facility] [address] [place] [address] Instrument Repair Technician: Zach Bello MD, PhD Cotinine <5 ng/mL 01/04/2023 1:35 AM PATTERNMAKER WOOD [facility] ([facility]) Blood BLOOD SPECIMEN / Unknown Lab Venipuncture / Unknown 12/30/2022 10:30 AM PATTERNMAKER WOOD 12/30/2022 10:41 AM PATTERNMAKER WOOD Raisa Schmidt MD LAB - CHEMISTRY ORDERABLES [employer] [facility]) [address] [place] [address], [facility] documented in this encounter Visit Diagnoses Diagnosis History of tobacco use- Primary Personal history of tobacco use, presenting hazards to health documented in this encounter
--- OUTSIDE RECORDS SUMMARY | 2024-11-04 23:54 | XMS_ITS | Encounter Summary ---
Author Organization [facility] Health Address [address] [place] [place] [address] Care Team Providers Care Tripoler Name Role Phone Unavailable Primary Care Provider Unavailabl e Encounter Details Date Type Department Care Team (Late st Contact Info) Description 06/24/2021 1:30 PM CDT Video Visit [facility] Weight Management Services [address] [place] [phone] Raisa Schmidt MD [address] [place] [address] S/P laparoscopic sleeve gastrectomy Social History Tobacco Use Types Packs/Day Years Used Date Smoking Tobacco: Former Cigarettes Q uit: 06/2020 Smokeless Tobacco: Never Alcohol Use Standard Drinks/Week Comments Not Currently 14 (1 standard drink = 0.6 oz pu re alcohol) Sex and Gender Information Value Date Recorded Sex Assigned at Female 11/25/2020 1:10 PM CLINICAL CYTOPATHOLOGIST Gender Identity Female 11/25/2020 1:10 PM CLINICAL CYTOPATHOLOGIST Sexual Orientation Straight 02/02/2021 4: 18 PM [...] to the billing and collection practices of [facility]. Patient location: Home This encounter was performed using: audio Reason for not using video for visit: technical problems in using available video technology Total time spent on visit on date of encounter is: 13 minutes Session Date: 06/24/21 Patient: Maria Del Carmen Ray Date of : 1975 (45 year old) PCP Physician: Rose Marie Norton, APPLICATIONS TESTER-ACID WASH OPERATOR Referring Physician: Karolina NUTRITION ASSESSMENT Primary Diagnoses/Co-morbidities: [...] op RD visits per protocol _X__ Sasha Pineda RD/LDN documented in this encounter Plan of Treatment Upcoming Encounters Date Type Department Care Team (Late st Contact Info) Description 03/15/2025 10:00 AM CDT Office Visit [facility] Health Weight Management Services [address] [place] [phone] Vianey Llanes, BURT-ACID WASH OPERATOR [address] [place] [address] 03/15/2025 10:30 AM CDT Clinical Support [facility] Health Weight Management Services [address] [place] [phone] documented as of this encounter Visit Diagnoses Diagnosis S/P laparoscopic sleeve gastrectomy- Primary documented in this encounter
--- OUTSIDE RECORDS SUMMARY | 2024-11-04 23:54 | XMS_ITS | Encounter Summary ---
Author Organization [facility] Health Address [address] [facility] [place] [address] Care Team Providers Care Production Cook Name Role Phone Cass Mast Primary Care Provider [phone] Encounter Details Date Type Department Care Team (Late st Contact Info) Description 01/13/2023 9:30 AM REED CLEANER Video Visit [facility] Weight Management Services [address] [place] [address] Raisa Schmidt MD [address] [place] [phone] Maia Kennedy, GRAIN II FARMWORKER-SALES AMBASSADOR [address] [place] [address] History of smoking ; S/P [...] Sex Assigned at Female 11/25/2020 1:10 PM REED CLEANER Gender Identity Female 11/25/2020 1:10 PM REED CLEANER Sexual Orientation Straight 02/02/2021 4: 18 PM CDT COVID-19 Exposure Response Date Recorded In the last 10 days, have yo u been in contact with someone who was confirmed or suspected to have Coronavirus/COVID-19? No / Unsure 12/30/2022 10:11 AM REED CLEANER documented as of this encounter Last Filed Vital Signs Vital Sign Reading Time Taken Comments Blood Pressure - - Pulse - - Temperature - - Respiratory Rate - - Oxygen Saturation - - Inhaled Oxygen Concentration - - Weight 72.9 kg (160 lb 12.8 oz) 01/13/2023 9:00 AM REED CLEANER Height 160 cm (5' 3 ) 01/13/2023 9:00 AM REED CLEANER Body Mass Index 28.48 01/13/2023 9:00 AM REED CLEANER documented in this encounter Functional Status Functional [...] this encounter Progress Notes * Maia Kennedy, BURT-SALES AMBASSADOR - 01/13/2023 9:21 AM CST [facility] Health Weight Management Services at [address] [address] . . Date of encounter: No admission date for patient encounter. Pt Name: Maria Del Carmen Ray : 1975 AGE: [age] year old SEX: female CSN: [id number] Visit type: Weight Management Follow Up Patients [...] Vitamins-Minerals (CENTRUM SILVER PO) ??? nystatin (MYCOSTATIN) 410543 UNIT/GM cream Apply to affected area 2 times daily ??? vitamin D, ergocalciferol, (Drisdol) 1.25 MG (90387 UT) capsule Take 1 (one) capsule by [...] LDL, HDL, TRIG, TSH in the last 98183 hours. No results for input(s): HGBA1C in the last 04371 hours. No results for input(s): PT, PTT, INR, TSH in the last 06752 hours. No results for input(s): TSH in the last 16016 hours. Recent Labs Component Name 12/30/22 1030 IRON 98 No results for input(s): BSLJNGCG42 in the last 06850 hours. No results for input(s): VITAMINA in the last 33965 hours. Recent Labs Component Name 12/30/22 1030 IRON 98 No results for input(s): VITK1 in the last 07463 hours. No results for input(s): [id number] in the last 69166 hours. No results for input(s): ALPHATOCOPH in the last 33081 hours. No results for input(s): GAMMATOCOPH in the last 68478 hours. No results for input(s): MAGMGDL in the last 56271 hours. Recent Labs Component Name 03/10/21 0413 [...] s/p: Laparoscopic Sleeve Gastrectomy. Date of surgery??03/09/2021??@ [facility] by??Dr. Mendoza. ? Patient is losing weight. [...] Last colonoscopy was??08/25/[address] Bailey at [facility] in??[facility].?She was recommended repeat colonoscopy in 5 years, 2026. ?? History of??Smoking addiction?? She??stopped smoking??in June 2020.?She denies smoking at this time.?Explained to her the risk of development of complications with smoking after bariatric surgery.?Nicotine test #1negative 12/30/22. Nicotine test #2 ordered in [facility]. ? Vitamin D Deficiency Not on supplementation. [...] Labs ordered: Nicotine test #2 ordered in [facility]. Plan : as above recommendation. Follow up with: Surgeons / PA/ FARM CREW LEADER : 03/2024, she will also have follow [...] to the billing and collection practices of [facility]. Patient location: Home This encounter was [...] updated as documented in [employer]. SANGEETHA Jackson CLEANER documented in this encounter Plan of Treatment Upcoming Encounters Date Type Department Care Team (Late st Contact Info) Description 03/15/2025 10:00 AM CDT Office Visit [facility] Weight Management Services [address] [place] [phone] Vianey Llanes APRN-SALES AMBASSADOR [address] [place] [address] 03/15/2025 10:30 AM CDT Clinical Support [facility] Weight Management Services [address] [place] [address] documented as of this encounter Visit Diagnoses Diagnosis History of smoking- Primary Personal history of tobacco use, presenting hazards to health S/P laparoscopic sleeve gastrectomy documented in this encounter Care Teams Production Cook Relationship Specialty Start Date End Date Cass Mast PA [address] [place] [address] PCP - General Nurse Practitioner Primary Care 01/13/23 03/15/24 documented as of this encounter
--- OUTSIDE RECORDS SUMMARY | 2024-11-04 23:54 | XMS_ITS | Encounter Summary ---
Author Organization [facility] Health Address [address] [facility] [place] [address] Care Team Providers Care Marketing Specialist Name Role Phone Unavailable Primary Care Provider Unavailabl e Encounter Details Date Type Department Care Team (Late st Contact Info) Description 03/10/2022 Orders Only [facility] Health Weight Management Services [address] [place] [phone] Vianey lLanes, AIRCRAFT ACCESSORIES MECHANIC-AUTOMOTIVE HEAVY MECHANIC [address] [place] [address] Social History Tobacco Use Types Packs/Day Years Used Date Smoking Tobacco: Former Cigarettes Q uit: 06/2020 Smokeless Tobacco: Never Alcohol Use Standard Drinks/Week Comments Not Currently 14 (1 standard drink = 0.6 oz pu re alcohol) Sex and Gender Information Value Date Recorded Sex Assigned at Female 11/25/2020 1:10 PM CUT FILER Gender Identity Female 11/25/2020 1:10 PM CUT FILER Sexual Orientation Straight 02/02/2021 4: 18 PM [...] Description 03/15/2025 10:00 AM CDT Office Visit [facility] Health Weight Management Services [address] [place] [phone] Vianey Llanes, AIRCRAFT ACCESSORIES MECHANIC-AUTOMOTIVE HEAVY MECHANIC [address] [place], [place] [address] 03/15/2025 10:30 AM CDT Clinical Support [facility] Weight Management Services [address] [place] [address] documented as of this encounter Visit Diagnoses Not on filedocumented in this encounter
--- OUTSIDE RECORDS SUMMARY | 2024-11-04 23:54 | XMS_ITS | Encounter Summary ---
Author Organization [facility] Health Address [address] [facility] [place] [address] Care Team Providers Care Warehouse Operator Name Role Phone Cass Mast Primary Care Provider [phone] Encounter Details Date Type Department Care Team (Late st Contact Info) Description 03/09/2023 10:30 AM CDT Video Visit [facility] Weight Management Services [address] [place] [phone] Raisa Schmidt MD [address] [place] [address] S/P laparoscopic sleeve gastrectomy Social [...] Sex Assigned at Female 11/25/2020 1:10 PM TOOL CLERK Gender Identity Female 11/25/2020 1:10 PM TOOL CLERK Sexual Orientation Straight 02/02/2021 4: 18 [...] to the billing and collection practices of [facility]. Patient location: Home This encounter [...] Description 03/15/2025 10:00 AM CDT Office Visit [facility] Health Weight Management Services [address] [place] [address] Vianey Llanes, MOLECULAR PATHOLOGIST-PSYCHIATRIC MENTAL HEALTH NURSE [address] [place] [address] 03/15/2025 10:30 AM CDT Clinical Support [facility] Weight Management Services [address] [place] [phone] documented as of this encounter Visit Diagnoses Diagnosis S/P laparoscopic sleeve gastrectomy- Primary documented in this encounter Care Teams Warehouse Operator Relationship Specialty Start Date End Date Cass Mast PA [address] [place] [address] PCP - General Nurse Practitioner Primary Care 01/13/23 03/15/24 documented as of this encounter
--- OUTSIDE RECORDS SUMMARY | 2024-11-04 23:54 | XMS_ITS | Encounter Summary ---
Author Organization [facility] Address [address] [facility] [place] [address] Care Team Providers Care Fire Lieutenant Name Role Phone Unavailable Primary Care Provider [...] Sex Assigned at Female 11/25/2020 1:10 PM CARPENTER'S ASSISTANT Gender Identity Female 11/25/2020 1:10 PM CARPENTER'S ASSISTANT Sexual Orientation Straight 02/02/2021 4: 18 PM CDT COVID-19 Exposure Response Date Recorded In the last 10 days, have yo u been in contact with someone who was confirmed or suspected to have Coronavirus/COVID-19? No / Unsure 12/30/2022 10:11 AM CARPENTER'S ASSISTANT documented as of this encounter Functional Status [...] Description 03/15/2025 10:00 AM CDT Office Visit [facility] Health Weight Management Services [address] [place] [phone] Vianey Llanes, INTERNET SALES CONSULTANT-SHEET METAL INSULATOR [address] [place] [address] 03/15/2025 10:30 AM CDT Clinical Support [facility] Weight Management Services [address] [place] [address] documented as of this encounter Visit Diagnoses Not on filedocumented in this encounter
--- OUTSIDE RECORDS SUMMARY | 2024-11-04 23:54 | XMS_ITS | Encounter Summary ---
Author Organization [facility] Health Address [address] [facility] [place] [address] Care Team Providers Care Machine Rough Rounder Name Role Phone Unavailable Primary Care Provider Unavailabl e Encounter Details Date Type Department Care Team (Late st Contact Info) Description 12/24/2022 Orders Only [facility] Health Weight Management Services [address] [place] [phone] Raisa Schmidt MD [address] [place] [address] History of tobacco use Social [...] Sex Assigned at Female 11/25/2020 1:10 PM MOTO MIX OPERATOR Gender Identity Female 11/25/2020 1:10 PM MOTO MIX OPERATOR Sexual Orientation Straight 02/02/2021 4: 18 PM CDT COVID-19 Exposure Response Date Recorded In the last 10 days, have domenica u been in contact with someone who was confirmed or suspected to have Coronavirus/COVID-19? No / Unsure 12/30/2022 10:11 AM MOTO MIX OPERATOR documented as of this encounter Functional [...] NETWORK Health Weight Management Services [address] [place] [phone] Vianey Llanes, WATER POLLUTION SCIENTIST-METAL DRESSER [address] [place], [place] [address] 03/15/2025 10:30 AM CDT Clinical Support [facility] Health Weight Management Services [address] [place] [phone] documented as of this encounter Procedures Procedure Name Priority Date/Time Associated Diagnosis Comments NICOTINE + METABOLITES BLOOD Routine 12/30/2022 10:30 AM MOTO MIX OPERATOR History of tobacco use documented in this encounter Results * NICOTINE + METABOLITES BLOOD (12/30/2022 10:30 AM MOTO MIX OPERATOR) [facility] Nicotine <5 ng/mL 01/04/2023 1:35 AM MOTO MIX OPERATOR [facility] ([facility]) Comment: Consistent with abstinence from [...] developed and its performance characteristics determined by [facility]. It has not been cleared or approved by the US Food and Drug Administration. This test was performed in a CLIA certified laboratory and is intended for clinical purposes. Performed By: [facility] [address] [place] [address] Film Composer: Zach Bello MD, PhD Cotinine <5 ng/mL 01/04/2023 1:35 AM MOTO MIX OPERATOR [facility] ([facility]) Blood BLOOD SPECIMEN / Unknown Lab Venipuncture / Unknown 12/30/2022 10:30 AM MOTO MIX OPERATOR 12/30/2022 10:41 AM MOTO MIX OPERATOR Raisa Schmidt MD LAB - CHEMISTRY ORDERABLES [facility]) [address] documented in this encounter Visit Diagnoses Diagnosis History of tobacco use Personal history of tobacco use, presenting hazards to health documented in this encounter
--- OUTSIDE RECORDS SUMMARY | 2024-11-04 23:54 | XMS_ITS | Encounter Summary ---
Author Organization [facility] Health Address [address] [facility] [place] [address] Care Team Providers Care Cryptographic Vulnerability Analyst Name Role Phone Unavailable Primary Care Provider Unavailabl e Reason for Visit * Reason Onset Date Comments Referral 11/22/2022 Encounter Details Date Type Department Care Team (Late st Contact Info) Description 11/22/2022 Telephone [facility] Weight Management Services [address] [place] [phone] Raisa Schmidt MD [address] [place] [phone] Referral Social History Tobacco Use Types Packs/Day Years Used Date Smoking Tobacco: Former Cigarettes Q uit: 06/2020 Smokeless Tobacco: Never Alcohol Use Standard Drinks/Week Comments Yes 14 (1 standard drink = 0.6 oz pu re alcohol) occ wine Sex and Gender Information Value Date Recorded Sex Assigned at Female 11/25/2020 1:10 PM PLASTIC JIG AND FIXTURE BUILDER Gender Identity Female 11/25/2020 1:10 PM PLASTIC JIG AND FIXTURE BUILDER Sexual Orientation Straight 02/02/2021 4: 18 [...] Cris Bundy LPN - 11/23/2022 2:44 PM PLASTIC JIG AND FIXTURE BUILDER Patient would like derm referral made to Beti Ramos NP. Records faxed to [phone] that officewill call patient to schedule appt. Patient will call our office if she does not hear from that office. TIC JIG AND FIXTURE BUILDER * Telephone Encounter - Cris Bundy LPN - 11/23/2022 1:36 PM PLASTIC JIG AND FIXTURE BUILDER [employer] TIC JIG AND FIXTURE BUILDER * Telephone Encounter - Cris Bundy LPN - 11/22/2022 9:30 AM PLASTIC JIG AND FIXTURE BUILDER No answer and unable to leave voicemail. [employer] message sent to patient. TIC JIG AND FIXTURE BUILDER documented in this encounter Plan of Treatment Upcoming Encounters Date Type Department Care Team (Late st Contact Info) Description 03/15/2025 10:00 AM CDT Office Visit [facility] Weight Management Services [address] [place] [phone] Vianey Llanes, COMPUTER HELP DESK SPECIALIST-SPECIAL LIBRARY LIBRARIAN [address] [place], [place] [address] 03/15/2025 10:30 AM CDT Clinical Support [facility] Weight Management Services [address] [place] [phone] documented as of this encounter Visit Diagnoses Diagnosis Excessive and redundant skin and subcutaneous tissue- Primary Abdominal pannus Localized adiposity documented in this encounter
--- OUTSIDE RECORDS SUMMARY | 2024-11-04 23:54 | XMS_ITS | Encounter Summary ---
Author Organization [facility] Health Address [address] [place] [address] Care Team Providers Care Chief Nuclear Medicine Technologist Name Role Phone Unavailable Primary Care Provider Unavailabl e Reason for Visit * Reason Comments Bariatric Surgery Follow-up 3 months s/p sleeve Encounter Details Date Type Department Care Team (Late st Contact Info) Description 06/24/2021 2:[address]T Video [address] [facility] Health Weight Management Services [address] [place] [phone] Raisa Schmidt MD [address] [place] [address] Tram Caicedo, MEDICAL RECORDS ASSISTANT-PANEL GLUER [address] [place] [address] BMI 34.0-34.9,adult ; Class 1 obesity due [...] Sex Assigned at Female 11/25/2020 1:10 PM KEG FILLER Gender Identity Female 11/25/2020 1:10 PM KEG FILLER Sexual Orientation Straight 02/02/2021 4: 18 PM [...] from the original note were not included. [facility] Health Weight Management Services [address] [address] PH: [phone] , Date of encounter: 06/24/2021 Pt Name: Maria Del Carmen Ray : 1975 AGE: [age] year old SEX: female CSN: [id number] Visit type: Bariatric Post Operative visit Patients Primary care provider: No primary care provider on file. Subjective: Maria Del Carmen Ray presents to the clinic 3 months following Laparoscopic sleeve gastrectomy; she was last seen by Tram Pemberton APRN, at [place] weight management [facility] clinic on April 10 [...] Gatherings with Friends and Family: ??? Attends Zoroastrian Services: ??? Active Member of Clubs or [...] sleeve gastrectomy with Dr. Rehan Mendoza at [facility] in [place], [place] on 03/09/2021. (K21.9) Gastroesophageal reflux disease without esophagitis Currently taking omeprazole 40 mg PO daily. May discontinue at this time. (E55.9) Vitamin D deficiency Currently does not take vitamin-D supplementation. Does report taking centrum Silver multivitamin twice daily. Per patient request order for labs were mailed to her today. Will await results and makerecommendations based on those findings. (Z87.478) History of smoking Remains smoke free at [...] above recommendation. Follow up with: Provider and computer forensics examiner 6 month(s) post op. She verbalized understanding and is agreeable to this plan after shared decision making with patient. SANGEETHA Simon CC: No primary care provider on file. documented in this encounter Plan of Treatment Upcoming Encounters Date Type Department Care Team (Late st Contact Info) Description 03/15/2025 10:00 AM CDT Office Visit [email or web address] Weight Management Services [address] [place] [phone] Vianey Llanes APRN-CNP [address] [place], [place] [phone] 03/15/2025 10:30 AM CDT Clinical Support [email or web address] Weight Management Services [address] [place] [address] documented as of this encounter [...]
--- OUTSIDE RECORDS SUMMARY | 2024-11-04 23:54 | XMS_ITS | Encounter Summary ---
Author Organization [facility] Health Address [address] [facility] [place] [address] Care Team Providers Care Relations Manager Name Role Phone Unavailable Primary Care Provider Unavailabl e Reason for Visit * Reason Comments Surgical Followup EGD Encounter Details Date Type Department Care Team (Late st Contact Info) Description 12/23/2022 10:30 AM STEM MOUNTER Video Visit [facility] Weight Management Services [address] [place] [phone] Raisa Schmidt MD [address] [place] [phone] Status post laparoscopic sleeve gastrectomy ; Abdominal [...] Sex Assigned at Female 11/25/2020 1:10 PM STEM MOUNTER Gender Identity Female 11/25/2020 1:10 PM STEM MOUNTER Sexual Orientation Straight 02/02/2021 4: 18 PM CDT documented as of this encounter Last Filed Vital Signs Vital Sign Reading Time Taken Comments Blood Pressure - - Pulse - - Temperature - - Respiratory Rate - - Oxygen Saturation - - Inhaled Oxygen Concentration - - Weight 73.9 kg (163 lb) 12/23/2022 10:22 AM STEM MOUNTER Height 160 cm (5' 3 ) 12/23/2022 10:22 AM STEM MOUNTER Body Mass Index 28.87 12/23/2022 10:22 AM STEM MOUNTER documented in this encounter Functional Status Functional [...] Schmidt MD - 12/23/2022 10:35 AM CST [facility] [place] [address] . . Date of encounter: No admission date for patient encounter. Pt Name: Maria Del Carmen Ray : 1975 AGE: [age] year old SEX: female CSN: [id number] Visit type: Weight Management Follow Up Patients [...] Vitamins-Minerals (CENTRUM SILVER PO) ??? nystatin (MYCOSTATIN) 619561 UNIT/GM cream Apply to affected area 2 [...] LDL, HDL, TRIG, TSH in the last 61554 hours. No results for input(s): HGBA1C in the last 38154 hours. No results for input(s): PT, PTT, INR, TSH in the last 62590 hours. No results for input(s): TSH in the last 31490 hours. No results for input(s): IRON in the last 12823 hours. No results for input(s): [id number] in the last 88394 hours. No results for input(s): VITAMINA in the last 35775 hours. No results for input(s): IRON in the last 60610 hours. No results for input(s): VITK1 in the last 64966 hours. No results for input(s): [id number] in the last 60973 hours. No results for input(s): ALPHATOCOPH in the last 99142 hours. No results for input(s): GAMMATOCOPH in the last 62787 hours. No results for input(s): MAGMGDL in the last 20784 hours. Recent Labs Component Name 03/10/21 0413 PHOS 2.5 Some lab results will be in paper format so may be scanned in the EMR. Imaging studies No results found. Some Imaging studies results will be in paper format so may be scanned in the EMR. Assessment and Plan Overweight: S/P Bariatric Surgery :??s/p: Laparoscopic Sleeve Gastrectomy. Date of surgery??03/09/2021??@ [facility] by??Dr. Mendoza. ?? Change in weight as [...] colonoscopy was 08/25/[address] Bailey at [facility] in[facility]. She was recommended repeat colonoscopy in 5 [...] as documented in Epic. Raisa Schmidt MD MOUNTER documented in this encounter Plan of Treatment Upcoming Encounters Date Type Department Care Team (Late st Contact Info) Description 03/15/2025 10:00 AM CDT Office Visit [facility] Weight Management Services [address] [place] [phone] Vianey Llanes, INSTRUCTIONAL DESIGN MANAGER-CLOTH WORKER [address] [place] [address] 03/15/2025 10:30 AM CDT Clinical Support [facility] Weight Management Services [address] [place] [phone] documented as of this encounter Visit Diagnoses Diagnosis Status post laparoscopic sleeve gastrectomy- Primary Abdominal pannus Localized adiposity documented in this encounter
--- OUTSIDE RECORDS SUMMARY | 2024-11-04 23:54 | XMS_ITS | Encounter Summary ---
Author Organization [facility] Health Address [address] [facility] [place] [address] Care Team Providers Care Policy Intern Name Role Phone Cass Mast Primary Care Provider [phone] Encounter Details Date Type Department Care Team (Late st Contact Info) Description 03/09/2023 10:00 AM CDT Video Visit [facility] Health Weight Management Services [address] [place] [phone] Raisa Schmidt MD [address] [place] [phone] Vianey Llanes, SALVATIONIST-VP INFORMATION TECHNOLOGY [address], [place] [address] Overweight with body mass index (BMI) of [...] Sex Assigned at Female 11/25/2020 1:10 PM MEAT COUNTER WORKER Gender Identity Female 11/25/2020 1:10 PM MEAT COUNTER WORKER Sexual Orientation Straight 02/02/2021 4: 18 [...] this encounter Progress Notes * Vianey Llanes, BURT-VP INFORMATION TECHNOLOGY - 03/09/2023 9:55 AM CDT [facility] Health [place] [address] . . Date of encounter: 03/09/2023 Pt Name: Maria Del Carmen Ray : 1975 AGE: [age] year old SEX: female CSN: [id number] Visit type: Weight Management Follow Up Patients [...] ??? vitamin D, ergocalciferol, (Drisdol) 1.25 MG (59526 UT) capsule Take 1 (one) capsule by [...] LDL, HDL, TRIG, TSH in the last 47613 hours. No results for input(s): HGBA1C in the last 15657 hours. No results for input(s): PT, PTT, INR, TSH in the last 26311 hours. No results for input(s): TSH in the last 54235 hours. Recent Labs Component Name 12/30/22 1030 IRON 98 No results for input(s): [id number] in the last 28469 hours. No results for input(s): VITAMINA in the last 04205 hours. Recent Labs Component Name 12/30/22 1030 IRON 98 No results for input(s): VITK1 in the last 06675 hours. No results for input(s): [id number] in the last 67439 hours. No results for input(s): ALPHATOCOPH in the last 36878 hours. No results for input(s): GAMMATOCOPH in the last 21811 hours. No results for input(s): MAGMGDL in the last 16980 hours. Recent Labs Component Name 03/10/21 0413 [...] s/p: Laparoscopic Sleeve Gastrectomy. Date of surgery??03/09/2021??@ [facility] by??Dr. Mendoza. ? History of pyloric ulcer [...] Last colonoscopy was??08/25/[address] Bailey at [facility] in??[facility].?She was recommended repeat colonoscopy in 5 years, 2026. ?? History of??Smoking addiction?? She??stopped smoking??in June 2020.?She denies smoking at this time.?Explained to her the risk of development of complications with smoking after bariatric surgery.?Nicotine test #1negative 12/30/22. Nicotine test #2 ordered in [facility]. ? Vitamin D Deficiency Vitamin-D [...] recommendation. Follow up with: Surgeons / PA/ PISTON MAKER : Final H&P Dietitian: as scheduled. Today's visit was conducted virtually due to COVID-19 countermeasures. The patient has given verbalconsent to have today's visit conducted by this same means with treatment provided remotely. The patient verbally consents to the billing and collection practices of [facility]. Patient location: Home This encounter was [...] [facility] [address] [place] [address] Vianey Llanes APRN-CNP [address] [place] [address] 03/15/2025 10:30 AM CDT Clinical Support [facility] Weight Management Services [address] [place] [phone] documented as of this encounter Visit Diagnoses Diagnosis Overweight with body mass index (BMI) of 28 to 28.9 in adult- Primary S/P laparoscopic sleeve gastrectomy History of smoking Personal history of tobacco use, presenting hazards to health Abdominal pannus Localized adiposity documented in this encounter Care Teams Policy Intern Relationship Specialty Start Date End Date Cass Mast PA [address] [place] [address] PCP - General Nurse Practitioner Primary Care 01/13/23 03/15/24 documented as of this encounter
--- OUTSIDE RECORDS SUMMARY | 2024-11-04 23:54 | XMS_ITS | Encounter Summary ---
Author Organization [facility] Address [address] [place] [address] Care Team Providers Care Tree Climber Name Role Phone Unavailable Primary Care Provider Unavailabl e Reason for Visit * Reason Onset Date Comments Surgical Followup 03/11/2021 Encounter Details Date Type Department Care Team (Late st Contact Info) Description 03/11/2021 Telephone [facility] Weight Management Services [address] [place] [phone] Rehan Mendoza MD [address] [place] [phone] Surgical Followup Social History Tobacco Use Types Packs/Day Years Used Date Smoking Tobacco: Former Cigarettes Q uit: 06/2020 Smokeless Tobacco: Never Alcohol Use Standard Drinks/Week Comments Not Currently 14 (1 standard drink = 0.6 oz pu re alcohol) Sex and Gender Information Value Date Recorded Sex Assigned at Female 11/25/2020 1:10 PM REGIONAL MARKETING MANAGER Gender Identity Female 11/25/2020 1:10 PM REGIONAL MARKETING MANAGER Sexual Orientation Straight 02/02/2021 4: 18 [...] [facility] Weight Management Services [address] [place] [phone] Vianey Llanes, CLEANER INDUSTRIAL-CONTROL OFFICER [address] [place] [address] 03/15/2025 10:30 AM CDT Clinical Support [facility] Weight Management Services [address] [place] [phone] documented as of this encounter Visit Diagnoses Not on filedocumented in this encounter
--- OUTSIDE RECORDS SUMMARY | 2024-11-04 23:54 | XMS_ITS | Encounter Summary ---
Author Organization [facility] Health Address [address] [place] [address] Care Team Providers Care Product Builder Name Role Phone Cass Mast Primary Care Provider Reason for Visit * Reason Onset Date Comments Appointment 02/20/2024 Encounter Details Date Type Department Care Team (Late st Contact Info) Description 02/20/2024 Telephone [facility] Weight Management Services [address] [place] [phone] Raisa Schmidt MD [address] [place] [address] Appointment Social History Tobacco Use [...] Sex Assigned at Female 11/25/2020 1:10 PM FIRER WATERTENDER Gender Identity Female 11/25/2020 1:10 PM FIRER WATERTENDER Sexual Orientation Straight 02/02/2021 4: 18 PM [...] Description 03/15/2025 10:00 AM CDT Office Visit [facility] Weight Management Services [address] [place] [phone] Vianey Llanes, MANUAL MACHINIST-HAM PASSER [address] [place] [address] 03/15/2025 10:30 AM CDT Clinical Support [facility] Health Weight Management Services [address] [place] [address] documented as of this encounter Visit Diagnoses Not on filedocumented in this encounter Care Teams Product Builder Relationship Specialty Start Date End Date Cass Mast PA [address] [place] [address] PCP - General Nurse Practitioner Primary Care 01/13/23 03/15/24 documented as of this encounter
--- OUTSIDE RECORDS SUMMARY | 2024-11-04 23:54 | XMS_ITS | Encounter Summary ---
Author Organization [facility] Health Address [address] [facility] [place] [address] Care Team Providers Care Carcass Splitter Name Role Phone Unavailable Primary Care Provider Unavailabl e Reason for Visit * Reason Onset Date Comments Results 03/09/2022 Encounter Details Date Type Department Care Team (Late st Contact Info) Description 03/09/2022 Telephone [facility] Weight Management Services [address] [place] [phone] Vianey Llanes, AUTOMATION TECH-CHANGE MANAGEMENT MANAGER [address] [place] [address] Results Social History Tobacco Use Types Packs/Day Years Used Date Smoking Tobacco: Former Cigarettes Q uit: 06/2020 Smokeless Tobacco: Never Alcohol Use Standard Drinks/Week Comments Not Currently 14 (1 standard drink = 0.6 oz pu re alcohol) Sex and Gender Information Value Date Recorded Sex Assigned at Female 11/25/2020 1:10 PM PRINT MANAGER Gender Identity Female 11/25/2020 1:10 PM PRINT MANAGER Sexual Orientation Straight 02/02/2021 4: 18 [...] Description 03/15/2025 10:00 AM CDT Office Visit [facility] Weight Management Services [address] [place] [phone] Vianey Llanes, AUTOMATION TECH-CHANGE MANAGEMENT MANAGER [address] [place], [place] [address] 03/15/2025 10:30 AM CDT Clinical Support [facility] Weight Management Services [address] [place] [phone] documented as of this encounter Visit Diagnoses Not on filedocumented in this encounter
--- OUTSIDE RECORDS SUMMARY | 2024-11-04 23:54 | XMS_ITS | Encounter Summary ---
Author Organization [facility] Address [address] [facility] [place] [address] Care Team Providers Care Risk Modeler Name Role Phone Unavailable Primary Care Provider Unavailabl e Encounter Details Date Type Department Care Team (Latest Contact Info) Description 12/30/2022 10:15 AM STOCK DEALER - 12/30/2022 11:59 PM STOCK DEALER Hospital Encounter [facility] [address] [place] [address] Raisa Schmidt MD [address] [place] [address] Discharge Disposition: Home or Self [...] Sex Assigned at Female 11/25/2020 1:10 PM STOCK DEALER Gender Identity Female 11/25/2020 1:10 PM STOCK DEALER Sexual Orientation Straight 02/02/2021 4: 18 PM CDT COVID-19 Exposure Response Date Recorded In the last 10 days, have yo u been in contact with someone who was confirmed or suspected to have Coronavirus/COVID-19? No / Unsure 12/30/2022 10:11 AM STOCK DEALER documented as of this encounter Functional Status [...] Multiple Vitamins-Minerals (CENTRUM SILVER PO) nystatin (MYCOSTATIN) 141233 UNIT/GM cream Apply to affected area 2 times daily 15 g 2 03/10/2022 Ferrous Sulfate (IRON PO) 03/16/2024 hydroCHLOROthiazide (Hydrodiuril) 25 MG tablet 11/29/2022 01/13/2023 documented as of this encounter Plan of Treatment Upcoming Encounters Date Type Department Care Team (Late st Contact Info) Description 03/15/2025 10:00 AM CDT Office Visit [facility] Weight Management Services [address] [place] [phone] Vianey Llanes, HYDROGRAPHER-SALVAGE CLERK [address] [place] [address] 03/15/2025 10:30 AM CDT Clinical Support [facility] Health Weight Management Services [address] [place] [phone] documented as of this encounter Visit Diagnoses Not on filedocumented in this encounter
--- OUTSIDE RECORDS SUMMARY | 2024-11-04 23:54 | XMS_ITS | Encounter Summary ---
Author Organization [facility] Health Address [address] [facility] [place] [address] Care Team Providers Care Career Development Manager Name Role Phone Unavailable Primary Care Provider Unavailabl e Reason for Visit * Reason Onset Date Comments Appointment 06/27/2024 Encounter Details Date Type Department Care Team (Late st Contact Info) Description 06/27/2024 Telephone [facility] Weight Management Services [address] [place] [phone] Raisa Schmidt MD [address] [place] [address] Appointment Social History Tobacco Use [...] Sex Assigned at Female 11/25/2020 1:10 PM SAP SENIOR DEVELOPER Gender Identity Female 11/25/2020 1:10 PM SAP SENIOR DEVELOPER Sexual Orientation Straight 02/02/2021 4: 18 [...] Description 03/15/2025 10:00 AM CDT Office Visit [facility] Weight Management Services [address] [place] [phone] Vianey Llanes, PROGRAM RESEARCH SPECIALIST-[employer] [address] [place] [address] 03/15/2025 10:30 AM CDT Clinical Support [facility] Weight Management Services [address] [place] [phone] documented as of this encounter Visit Diagnoses Not on filedocumented in this encounter
--- OUTSIDE RECORDS SUMMARY | 2024-11-04 23:54 | XMS_ITS | Encounter Summary ---
Author Organization [facility] Health Address [address] [facility] [place] [address] Care Team Providers Care Warp Dyeing Vat Tender Name Role Phone Unavailable Primary Care Provider Unavailabl e Reason for Visit * Reason Onset Date Comments Itching 03/09/2022 Navel Encounter Details Date Type Department Care Team (Late st Contact Info) Description 03/09/2022 Telephone [facility] Weight Management Services [address] [place] [phone] Vianey Llanes, MOTH EXTERMINATOR-PROJECT CREW WORKER [address] [place] [address] Itching (Navel) Social History Tobacco Use Types Packs/Day Years Used Date Smoking Tobacco: Former Cigarettes Q uit: 06/2020 Smokeless Tobacco: Never Alcohol Use Standard Drinks/Week Comments Not Currently 14 (1 standard drink = 0.6 oz pu re alcohol) Sex and Gender Information Value Date Recorded Sex Assigned at Female 11/25/2020 1:10 PM TECHNOLOGY INTERNSHIP Gender Identity Female 11/25/2020 1:10 PM TECHNOLOGY INTERNSHIP Sexual Orientation Straight 02/02/2021 4: 18 [...] voiced to send us a picture through [employer]. Pt voices she is currently at work and will send pictures later tonight. Pt is scheduled for appt on - 03/11/2022. documented in this encounter Plan of Treatment Upcoming Encounters Date Type Department Care Team (Late st Contact Info) Description 03/15/2025 10:00 AM CDT Office Visit [facility] Health Weight Management Services [address] [place] [phone] Vianey Llanes APRN-PROJECT CREW WORKER [address] [place] [address] 03/15/2025 10:30 AM CDT Clinical Support [facility] Health Weight Management Services [address] [place] [phone] documented as of this encounter Visit Diagnoses Not on filedocumented in this encounter
--- OUTSIDE RECORDS SUMMARY | 2024-11-04 23:54 | XMS_ITS | Encounter Summary ---
Author Organization [facility] Address [address] [facility] [place] [address] Care Team Providers Care Aircraft Engine Technician Name Role Phone Unavailable Primary Care Provider Unavailabl e Encounter Details Date Type Department Care Team (Latest Contact Info) Description 11/03/2021 1:00 PM MAINSPRING BARREL ASSEMBLY CLEANER Clinical Support [facility] Weight Management Services [address] [place] [phone] Raisa Schmidt MD [address] [place] [address] S/P laparoscopic sleeve gastrectomy Social History Tobacco Use Types Packs/Day Years Used Date Smoking Tobacco: Former Cigarettes Q uit: 06/2020 Smokeless Tobacco: Never Alcohol Use Standard Drinks/Week Comments Not Currently 14 (1 standard drink = 0.6 oz pu re alcohol) Sex and Gender Information Value Date Recorded Sex Assigned at Female 11/25/2020 1:10 PM MAINSPRING BARREL ASSEMBLY CLEANER Gender Identity Female 11/25/2020 1:10 PM MAINSPRING BARREL ASSEMBLY CLEANER Sexual Orientation Straight 02/02/2021 4: 18 PM CDT documented as of this encounter Last Filed Vital Signs Vital Sign Reading Time Taken Comments Blood Pressure - - Pulse - - Temperature - - Respiratory Rate - - Oxygen Saturation - - Inhaled Oxygen Concentration - - Weight 83.2 kg (183 lb 6.4 oz) 11/03/2021 12:00 PM MAINSPRING BARREL ASSEMBLY CLEANER Height 160 cm (5' 3 ) 11/03/2021 12:00 PM MAINSPRING BARREL ASSEMBLY CLEANER Body Mass Index 32.49 11/03/2021 12:00 PM MAINSPRING BARREL ASSEMBLY CLEANER documented in this encounter Functional Status [...] visits per protocol _X__ Jerrica Whitaker RD/LDN SPRING BARREL ASSEMBLY CLEANER documented in this encounter Plan of Treatment Upcoming Encounters Date Type Department Care Team (Late st Contact Info) Description 03/15/2025 10:00 AM CDT Office Visit [facility] Health Weight Management Services [address] [place] [address] Vianey Llanes APRN-VULCAN CREWMEMBER [address] [place] [address] 03/15/2025 10:30 AM CDT Clinical Support [facility] Health Weight Management Services [address] [place] [address] documented as of this encounter Visit Diagnoses Diagnosis S/P laparoscopic sleeve gastrectomy- Primary documented in this encounter
--- OUTSIDE RECORDS SUMMARY | 2024-11-04 23:54 | XMS_ITS | Encounter Summary ---
Author Organization [facility] Health Address [address] [place] [address] Care Team Providers Care Rug Clipper Name Role Phone Cass Mast Primary Care Provider [phone] Reason for Visit * Reason Onset Date Comments Follow-up 2023 Pausing patient at this time. Encounter Details Date Type Department Care Team (Late st Contact Info) Description 2023 Telephone [facility] Weight Management Services [address] [place] [phone] Cindy Stock RN Follow-up (Pausing patient [...] Sex Assigned at Female 11/25/2020 1:10 PM NUTRITION TEACHER Gender Identity Female 11/25/2020 1:10 PM NUTRITION TEACHER Sexual Orientation Straight 02/02/2021 4: 18 [...] 10:00 AM CDT Office Visit [facility] Health Weight Management Services [address] [place] [phone] Vianey Llanes, AGRICULTURAL PRODUCTION ENGINEER-LEVEL VIAL GRINDER [address] [place], [place] [address] 03/15/2025 10:30 AM CDT Clinical Support [facility] Health Weight Management Services [address] [place] [phone] documented as of this encounter Visit Diagnoses Not on filedocumented in this encounter Care Teams Rug Clipper Relationship Specialty Start Date End Date Cass Mast PA [address] [place] [address] PCP - General Nurse Practitioner Primary Care 01/13/23 03/15/24 documented as of this encounter
--- OUTSIDE RECORDS SUMMARY | 2024-11-04 23:54 | XMS_ITS | Encounter Summary ---
Author Organization [facility] Health Address [address] [place] [address] Care Team Providers Care Parts Salesperson Name Role Phone Unavailable Primary Care Provider Unavailabl e Encounter Details Date Type Department Care Team (Late st Contact Info) Description 05/20/2024 Orders Only [facility] Weight Management Services [address] [place] [phone] Vianey Llanes, CARDIOVASCULAR OR NURSE-SUPERVISOR SLEEPING BAG DEPARTMENT [address] [place] [address] Overweight with body mass index (BMI) of [...] Sex Assigned at Female 11/25/2020 1:10 PM ACETONE RECOVERY WORKER Gender Identity Female 11/25/2020 1:10 PM ACETONE RECOVERY WORKER Sexual Orientation Straight 02/02/2021 4: 18 [...] CENTER Health Weight Management Services [address] [place] [address] Vianey Llanes, CARDIOVASCULAR OR NURSE-SUPERVISOR SLEEPING BAG DEPARTMENT [address], [place] [address] 03/15/2025 10:30 AM CDT Clinical Support [facility] Weight Management Services [address] [place] [phone] documented as of this encounter Visit Diagnoses [...]
--- OUTSIDE RECORDS SUMMARY | 2024-11-04 23:54 | XMS_ITS | Encounter Summary ---
Author Organization [facility] Address [address] [place] [address] Care Team Providers Care Vehicle Inspector Name Role Phone Unavailable Primary Care [...] Expiration Date Visits Re quested Visits Authorized [id number] 1 1 Encounter Details Date Type Department Care Team (Latest Contact Info) Description 12/08/2022 9:00 AM DRILL PRESS OPERATOR HELPER - 12/08/2022 9:13 AM DRILL PRESS OPERATOR HELPER Surgery [facility] - Eva Op [address] [place], [place] [address] Raisa Schmidt MD [address] [place] [address] ESOPHAGOGASTRODUODENOSCOPY with BIOPSY Surgery Details Date/Time Status Location OR Service Patient Class Case Class Case Type Trauma Case? 12/08/2022 9:00 AM Posted [facility] MAIN OR OR 2 Gastroenterology Surgery Day [...] Sex Assigned at Female 11/25/2020 1:10 PM DRILL PRESS OPERATOR HELPER Gender Identity Female 11/25/2020 1:10 PM DRILL PRESS OPERATOR HELPER Sexual Orientation Straight 02/02/2021 4: 18 PM CDT documented as of this encounter Last Filed Vital Signs Vital Sign Reading Time Taken Comments Blood Pressure 139/87 12/08/2022 7:37 AM DRILL PRESS OPERATOR HELPER Pulse 68 12/08/2022 7:37 AM DRILL PRESS OPERATOR HELPER Temperature 36.8 ??C (98.2 ??F) 12/08/2022 7:37 AM CS T Respiratory Rate 16 12/08/2022 7:37 AM DRILL PRESS OPERATOR HELPER Oxygen Saturation 100% 12/08/2022 7:37 AM DRILL PRESS OPERATOR HELPER Inhaled Oxygen Concentration - - Weight 74.8 kg (164 lb 14.5 oz) 12/08/2022 7:37 AM DRILL PRESS OPERATOR HELPER Height 154.9 cm (5' 1 ) 12/08/2022 7:37 AM DRILL PRESS OPERATOR HELPER Body Mass Index 31.16 12/08/2022 7:37 AM DRILL PRESS OPERATOR HELPER documented in this encounter Functional Status Functional [...] Multiple Vitamins-Minerals (CENTRUM SILVER PO) nystatin (MYCOSTATIN) 743863 UNIT/GM cream Apply to affected area 2 [...] prior H&P was completed. Raisa Schmidt MD L PRESS OPERATOR HELPER Source Note - Raisa Schmidt MD - 11/11/2022 9:49 AM DRILL PRESS OPERATOR HELPER [facility] [place] [address] . . Date of encounter: No admission date for patient encounter. Pt Name: Maria Del Carmen Ray : 1975 AGE: [age] year old SEX: female CSN: [id number] Visit type: Weight Management Follow Up Patients [...] Vitamins-Minerals (CENTRUM SILVER PO) ??? nystatin (MYCOSTATIN) 468327 UNIT/GM cream Apply to affected area 2 [...] LDL, HDL, TRIG, TSH in the last 09018 hours. No results for input(s): HGBA1C in the last 88532 hours. No results for input(s): PT, PTT, INR, TSH in the last 18652 hours. No results for input(s): TSH in the last 66038 hours. No results for input(s): IRON in the last 27575 hours. No results for input(s): [id number] in the last 79434 hours. No results for input(s): VITAMINA in the last 70567 hours. No results for input(s): IRON in the last 02833 hours. No results for input(s): VITK1 in the last 86626 hours. No results for input(s): [id number] in the last 84239 hours. No results for input(s): ALPHATOCOPH in the last 62025 hours. No results for input(s): GAMMATOCOPH in the last 98092 hours. No results for input(s): MAGMGDL in the last 98392 hours. Recent Labs Component Name 03/10/21 0413 PHOS 2.5 Some lab results will be in paper format so may be scanned in the EMR. Imaging studies No results found. Some Imaging studies results will be in paper format so may be scanned in the EMR. Assessment and Plan Overweight: S/P Bariatric Surgery :??s/p: Laparoscopic Sleeve Gastrectomy. Date of surgery??03/09/2021??@ [facility] by??Dr. Mendoza. Change in weight [...] colonoscopy was 08/25/[address] Bailey at [facility] in [facility]. Shewas recommended repeat colonoscopy in [...] as documented in Epic. Raisa Schmidt MD L PRESS OPERATOR HELPER documented in this encounter OR Notes * Operative - Raisa Schmidt MD - 12/08/2022 9:00 AM CST Esophagogastroduodenoscopy Procedure Note Date of Surgery: 12/08/22 Surgeon(s) and Role: * Raisa Schmidt MD - Primary Manager Studio: Smiley Rodriguez RN Scrub Person: Jo Blandon [...] Condition: stable Recommendations: -Await pathology., -Follow symptoms. L PRESS OPERATOR HELPER documented in this encounter Plan of Treatment Upcoming Encounters Date Type Department Care Team (Late st Contact Info) Description 03/15/2025 10:00 AM CDT Office Visit [facility] Services [address] [place] [phone] Vianey Llanes, GENERAL LITHOGRAPHIC WORKER-CULTURAL HISTORIAN [address], [place] [phone] 03/15/2025 10:30 AM CDT Clinical Support [facility] Management Services [address] [place] [phone] Scheduled Orders Name Type Priority Associated Diagnoses Orde r Schedule EGD GI Routine ONCE for 1 Occ urrences starting 12/08/2022 until 12/08/2022 documented as of this encounter Procedures Procedure Name Priority Date/Time Associated Diagnosis Comments CARDIAC RHYTHM STRIP ORDER 12/09/2022 12:15 PM DRILL PRESS OPERATOR HELPER GROSS + MICRO EXAM (ILL) Routine 12/08/2022 9:16 AM DRILL PRESS OPERATOR HELPER Gastroesophageal reflux disease, unspecified whether esophagitis present S/P bariatric surgery CA EGD FLEX TRANSORAL W BX SNGL OR MULT 12/08/2022 9:08 AM DRILL PRESS OPERATOR HELPER Gastroesophageal reflux disease, unspecified whether esophagitis present S/P bariatric surgery Special Needs Arrival time:0730 documented in this encounter Results * CARDIAC RHYTHM STRIP ORDER (12/09/2022 12:15 PM DRILL PRESS OPERATOR HELPER) Narrative 12/09/2022 12:15 PM DRILL PRESS OPERATOR HELPER Ordered by an unspecified provider. Scanned Document CARDIAC SERVICES ORD ERABLES * GROSS + MICRO EXAM (ILL) (12/08/2022 9:16 AM DRILL PRESS OPERATOR HELPER) Case Report Surgical Pathology Report ? Case: [id number] ? Authorizing Provider: ??Raisa Schmidt MD ??Collected: ? 12/08/2022 09:16 AM ? Ordering Location: ? [facility] ?Received: ?12/08/2022 02:21 PM ? Pathologist: ? Chuckie Lujan MD ? Specimen: ?Antrum Biopsy, Antrum Biopsy to rule out H. pylori ? 12/09/2022 11:[address] [facility] Final Diagnosis Stomach, antrum, biopsy: - Fragments of antral mucosa with no histopathologic abnormality - No Helicobacter pylori organisms identified (H&E exam) 12/09/2022 11:[address] [facility] Microscopic Description and Comment Microscopic examination is performed and substantiates the above diagnosis. 12/09/2022 11:[address] [facility] Clinical History Gastroesophageal reflux disease, status post bariatric surgery Findings: - normal duodenum -normal gastric antrum -evidence of sleeve gastrectomy initiated 8 cm proximal to the pylorus with no evidence of tight angulation at the incisura and no retained fundus -no hiatal hernia -normal Z-line -normal esophagus -normal cords 12/09/2022 11:[address] [facility] Gross Description The requisition [...] A1. AW 12/09/2022 11:[address] [facility] Disclaimer The performance characteristics [...] H&E slides and special stains prepared at [facility], [place]. [address] (CLIA# [id number]) unless otherwise specified. This case was interpreted by the [facility] Department of Pathology. When applicable, select reference laboratory testing is performed at the [facility], [address] [place] [address]. 12/09/2022 11:[address] [facility] Embedded Images 12/09/2022 11:[address] [facility] Pathology/Cytology GASTRIC ANTRAL BIOPSY SPECIMEN / Unknown 12/08/2022 9:16 AM DRILL PRESS OPERATOR HELPER 12/08/2022 2:21 PM DRILL PRESS OPERATOR HELPER Comment:Pre-op diagnosis: Gastroesophageal reflux disease, unspecified whether esophagitis present [K21.9] S/P bariatric surgery [Z98.84] Raisa Schmidt MD LAB - PATHOLOGY/ CYTOLOGY ORDERABLES [facility] [address] [place], [place] [id number] [place] [address] documented in this encounter Visit Diagnoses Diagnosis [...] minutes., Pre-op $ Given 12/08/2022 7:43 AM DRILL PRESS OPERATOR HELPER 20 mg lactated ringers infusion at 75 mL/hr, Intravenous, PRE-OP CONTINUOUS, Starting on Tue12/08/22 at 0730, Until Tue12/08/22 at 1114 $ New Bag/Syringe 12/08/2022 7:42 AM DRILL PRESS OPERATOR HELPER 75 mL/hr documented in this encounter Active and Recently Administered Medications Times are shown in DRILL PRESS OPERATOR HELPER. Scheduled Medication Order 12/06/2022 12/07/2022 12/08/2022 0.9% [...]
--- OUTSIDE RECORDS SUMMARY | 2024-11-04 23:54 | XMS_ITS | Encounter Summary ---
Author Organization [facility] Address [address] [place] [address] Care Team Providers Care Form Tamper Name Role Phone Unavailable Primary Care Provider Unavailabl e Reason for Referral * Consultation (Routine) - Closed Specialty Diagnoses / Procedures Referred By Veronica bonner Referred To Contact Nutrition Services Diagnoses S/P laparoscopic sleeve gastrectomy Raisa Schmidt MD [address] [place] [address] [facility] Clinical [address] [address] Referral ID Status Reason Start Date Expiration Date V isits Requested Visits Authorized [id number] Closed Specialty Services Required 03/16/2024 03/16/2025 4 4 Encounter Details Date Type Department Care Team (Latest Contact Info) Description 03/16/2024 10:30 AM CDT Clinical Support [facility] Weight Management Services [address] [place] [address] S/P laparoscopic sleeve gastrectomy Social [...] Assigned at Female 11/25/2020 1:10 PM MEDIA PRODUCER Gender Identity Female 11/25/2020 1:10 PM MEDIA PRODUCER Sexual Orientation Straight 02/02/2021 4: 18 PM [...] Pt reports walking ~6-7 miles daily- at [employer], around the neighborhood, and/or at work. Reviewed [...] HOSPITAL Health Weight Management Services [address] [place] [phone] Vianey Llanes, CUSTODIAN MANAGER-COMMUNITY EDUCATION SPECIALIST [address] [place], [place] [address] 03/15/2025 10:30 AM CDT Clinical Support [facility] Weight Management Services [address] [place] [phone] Scheduled Referrals Name Type Priority Associated Diagnoses Orde r Schedule MEDICAL NUTRITION THERAPY REFERRAL Outpatient Referral Routine S/P laparoscopic sleeve gastrectomy 4 Occurrences starting 03/16/2024 until 03/16/2025 documented as of this encounter Visit Diagnoses Diagnosis S/P laparoscopic sleeve gastrectomy- Primary documented in this encounter
--- OUTSIDE RECORDS SUMMARY | 2024-11-04 23:54 | XMS_ITS | Encounter Summary ---
Author Organization [facility] Address [address] [place] [address] Care Team Providers Care Director Religious Education Name Role Phone Unavailable Primary Care Provider Unavailabl e Reason for Visit * Reason Onset Date Comments Patient Requested Call 05/18/2021 Encounter Details Date Type Department Care Team (Late st Contact Info) Description 05/18/2021 Telephone [facility] Weight Management Services [address] [place] [phone] Raisa Schmidt MD [address] [place] [phone] Patient Requested Call Social History Tobacco Use Types Packs/Day Years Used Date Smoking Tobacco: Former Cigarettes Q uit: 06/2020 Smokeless Tobacco: Never Alcohol Use Standard Drinks/Week Comments Not Currently 14 (1 standard drink = 0.6 oz pu re alcohol) Sex and Gender Information Value Date Recorded Sex Assigned at Female 11/25/2020 1:10 PM FRUIT HARVESTER Gender Identity Female 11/25/2020 1:10 PM FRUIT HARVESTER Sexual Orientation Straight 02/02/2021 4: 18 PM [facility] [address] [place] [phone] Vianey Llanes, CAREER CONSULTANT-SQL PROGRAMMER ANALYST [address] [place] [address] 03/15/2025 10:30 AM CDT Clinical Support [facility] Weight Management Services [address] [place] [address] documented as of this encounter Visit Diagnoses Not on filedocumented in this encounter
--- OUTSIDE RECORDS SUMMARY | 2024-11-04 23:54 | XMS_ITS | Encounter Summary ---
Author Organization [facility] Address [address] [place] [address] Care Team Providers Care Senior Strategy Manager Name Role Phone Unavailable Primary Care Provider Unavailabl e Reason for Visit * Reason Comments Bariatric Surgery Follow-up Encounter Details Date Type Department Care Team (Late st Contact Info) Description 11/11/2022 9:45 AM DESK MONITOR Video Visit [facility] Weight Management Services [address] [place] [phone] Raisa Schmidt MD [address] [place] [phone] Status post laparoscopic sleeve gastrectomy ; Abdominal pannus Social History Tobacco Use Types Packs/Day Years Used Date Smoking Tobacco: Former Cigarettes Q uit: 06/2020 Smokeless Tobacco: Never Alcohol Use Standard Drinks/Week Comments Yes 14 (1 standard drink = 0.6 oz pu re alcohol) occ wine Sex and Gender Information Value Date Recorded Sex Assigned at Female 11/25/2020 1:10 PM DESK MONITOR Gender Identity Female 11/25/2020 1:10 PM DESK MONITOR Sexual Orientation Straight 02/02/2021 4: 18 PM CDT documented as of this encounter Last Filed Vital Signs Vital Sign Reading Time Taken Comments Blood Pressure - - Pulse - - Temperature - - Respiratory Rate - - Oxygen Saturation - - Inhaled Oxygen Concentration - - Weight 75.8 kg (167 lb) 11/11/2022 9:35 AM DESK MONITOR p er pt Height 160 cm (5' 3 ) 11/11/2022 9:35 AM DESK MONITOR Body Mass Index 29.58 11/11/2022 9:35 AM DESK MONITOR documented in this encounter Functional Status Functional [...] Schmidt MD - 11/11/2022 9:49 AM CST [facility] Weight [place] [address] . . Date of encounter: No admission date for patient encounter. Pt Name: Maria Del Carmen Ray : 1975 AGE: [age] year old SEX: female CSN: [id number] Visit type: Weight Management Follow Up Patients [...] Vitamins-Minerals (CENTRUM SILVER PO) ??? nystatin (MYCOSTATIN) 564974 UNIT/GM cream Apply to affected area 2 [...] LDL, HDL, TRIG, TSH in the last 58407 hours. No results for input(s): HGBA1C in the last 59988 hours. No results for input(s): PT, PTT, INR, TSH in the last 52889 hours. No results for input(s): TSH in the last 12584 hours. No results for input(s): IRON in the last 81241 hours. No results for input(s): [id number] in the last 49128 hours. No results for input(s): VITAMINA in the last 30640 hours. No results for input(s): IRON in the last 54244 hours. No results for input(s): VITK1 in the last 81369 hours. No results for input(s): [id number] in the last 36240 hours. No results for input(s): ALPHATOCOPH in the last 43306 hours. No results for input(s): GAMMATOCOPH in the last 93705 hours. No results for input(s): MAGMGDL in the last 26258 hours. Recent Labs Component Name 03/10/21 041 PHOS 2.5 Some lab results will be in paper format so may be scanned in the EMR. Imaging studies No results found. Some Imaging studies results will be in paper format so may be scanned in the EMR. Assessment and Plan Overweight: S/P Bariatric Surgery :??s/p: Laparoscopic Sleeve Gastrectomy. Date of surgery??03/09/2021??@ [facility] by??Dr. Mendoza. Change in weight [...] colonoscopy was 08/25/[address] [facility]. Shewas recommended repeat colonoscopy in 5 years. [...] as documented in Epic. Raisa Schmidt MD MONITOR documented in this encounter Plan of Treatment Upcoming Encounters Date Type Department Care Team (Late st Contact Info) Description 03/15/2025 10:00 AM CDT Office Visit [facility] Weight Management Services [address] [place] [address] Vianey Llanes, MANUAL MACHINIST-DUMP GRADER [address] [place] [address] 03/15/2025 10:30 AM CDT Clinical Support [facility] Weight Management Services [address] [place] [address] documented as of this encounter Visit Diagnoses Diagnosis Status post laparoscopic sleeve gastrectomy- Primary Abdominal pannus Localized adiposity documented in this encounter
--- OUTSIDE RECORDS SUMMARY | 2024-11-04 23:54 | XMS_ITS | Encounter Summary ---
Author Organization [facility] Address [address] [place] [address] Care Team Providers Care Cpr Instructor Name Role Phone Cass Mast Primary Care Provider [phone] Reason for Visit * Reason Onset Date Comments General 06/23/2023 Encounter Details Date Type Department Care Team (Late st Contact Info) Description 06/23/2023 Telephone [facility] Weight Management Services [address] [place] [address] Raisa Schmidt MD [address] [place] [address] General Social History Tobacco Use [...] Sex Assigned at Female 11/25/2020 1:10 PM GLASS VIAL BENDING CONVEYOR FEEDER Gender Identity Female 11/25/2020 1:10 PM GLASS VIAL BENDING CONVEYOR FEEDER Sexual Orientation Straight 02/02/2021 4: 18 PM [...] CENTER Health Weight Management Services [address] [place] [phone] Vianey Llanes, SMALL APPLIANCE ASSEMBLY SUPERVISOR-POWER GENERATION TURBINE ROOM OPERATOR [address] [place] [address] 03/15/2025 10:30 AM CDT Clinical Support [facility] Weight Management Services [address] [place] [phone] documented as of this encounter Visit Diagnoses Not on filedocumented in this encounter Care Teams Cpr Instructor Relationship Specialty Start Date End Date Cass Mast PA [address] [place] [address] PCP - General Nurse Practitioner Primary Care 01/13/23 03/15/24 documented as of this encounter
--- OUTSIDE RECORDS SUMMARY | 2024-11-04 23:54 | XMS_ITS | Encounter Summary ---
Author Organization [facility] Address [address] [place] [address] Care Team Providers Care Associate Account Executive Name Role Phone Unavailable Primary Care Provider Unavailabl e Reason for Visit * Reason Comments Surgery Consult Bariatric Surgery Initial Assessment Encounter Details Date Type Department Care Team (Late st Contact Info) Description 03/18/2021 10:15 AM CDT Video Visit [facility] Weight Management Services [address] [place] [phone] [place] [id number] [place] [phone] Morbid obesity (HCC) Social History Tobacco Use Types Packs/Day Years Used Date Smoking Tobacco: Former Cigarettes Q uit: 06/2020 Smokeless Tobacco: Never Alcohol Use Standard Drinks/Week Comments Not Currently 14 (1 standard drink = 0.6 oz pu re alcohol) Sex and Gender Information Value Date Recorded Sex Assigned at Female 11/25/2020 1:10 PM MANAGER DISH Gender Identity Female 11/25/2020 1:10 PM MANAGER DISH Sexual Orientation Straight 02/02/2021 4: 18 PM [...] from the original note were not included. [facility] Health [place] [address] . . Date of encounter: 03/18/2021 Pt Name: Maria Del Carmen Ray : 1975 AGE: [age] year old SEX: female CSN: [id number] Patient Verification & Telemedicine Based Consent I [...] Gatherings with Friends and Family: ??? Attends Christian Services: ??? Active Member of Clubs or [...] dissolve on the tongue ??? Probiotic Product (Tupalo) capsule Take 1 (one) capsule by mouth [...] LDL, HDL, TRIG, TSH in the last 15005 hours. No results for input(s): HGBA1C in the last 12128 hours. No results for input(s): PT, PTT, INR, TSH in the last 71121 hours. No results for input(s): TSH in the last 09114 hours. No results for input(s): IRON in the last 75652 hours. No results for input(s): [id number] in the last 47208 hours. No results for input(s): VITAMINA in the last 96767 hours. No results for input(s): IRON in the last 82974 hours. No results for input(s): VITK1 in the last 58300 hours. No results for input(s): [id number] in the last 01199 hours. No results for input(s): ALPHATOCOPH in the last 45433 hours. No results for input(s): GAMMATOCOPH in the last 90838 hours. No results for input(s): MAGMGDL in the last 48554 hours. Recent Labs Component Name 03/10/21 0413 [...] Gastrectomy. Date of surgery 03/09/2021 @ [facility] byDr. Rehan Mendoza. Doing well postoperatively. [...] recommendation. Follow up with: Surgeons / PA/ DUMP WORKER : 1 month. Dietitian: as scheduled. Consults: [...] accurate and complete. CC: Rose Marie Norton APRN-MOLD TECHNICIAN documented in this encounter Plan of Treatment Upcoming Encounters Date Type Department Care Team (Late st Contact Info) Description 03/15/2025 10:00 AM CDT Office Visit [facility] Health Weight Management Services [address] [place] [phone] Vianey Llanes, BURT-MOLD TECHNICIAN [address] [place] [employer] [place] [address] 03/15/2025 10:30 AM CDT Clinical Support [facility] Health Weight Management Services [address] [place] [phone] documented as of this encounter Visit Diagnoses Diagnosis Morbid obesity (HCC)- Primary Morbid obesity documented in this encounter
--- OUTSIDE RECORDS SUMMARY | 2024-11-04 23:54 | XMS_ITS | Encounter Summary ---
Author Organization [facility] Address [address] [place] [address] Care Team Providers Care Helmet Hat Brim Cutter Name Role Phone Unavailable Primary Care [...] Expiration Date Visits Re quested Visits Authorized [id number] 1 1 Encounter Details Date Type Department Care Team (Late st Contact Info) Description 12/08/2022 9:08 AM HELMET BINDER Anesthesia Event [facility] - Eva Op [address] [place] [address] Roverto Novak MD [address] [place] [address] Olivia Cuevas APRN-SANTOS [address] [place] [address] Anesthesia Record Procedure Summary Procedure Name Responsible [...] Sex Assigned at Female 11/25/2020 1:10 PM HELMET BINDER Gender Identity Female 11/25/2020 1:10 PM HELMET BINDER Sexual Orientation Straight 02/02/2021 4: 18 PM [...] Care NOTABLE EVENTS: No notable events documented. ET BINDER * Roverto Novak MD - 12/08/2022 7:24 [...] procedural Anesthetic Plan was discussed with the PICK UP ATTENDANT. BMI, Height, Weight Tobacco History Estimated body [...] for requested labs within last 120 days. ET BINDER documented in this encounter Miscellaneous Notes * [...] report from the receiving PACUteam. EDISON Cespedes ET BINDER documented in this encounter Plan of Treatment Upcoming Encounters Date Type Department Care Team (Late st Contact Info) Description 03/15/2025 10:00 AM CDT Office Visit [facility] Weight Management Services [address] [place] [phone] Vianey Llanes, BURT-DIAMOND SAW OPERATOR [address] [place] [address] 03/15/2025 10:30 AM CDT Clinical Support [facility] Weight Management Services [address] [place] [address] documented as of this encounter Visit Diagnoses Not on filedocumented in this encounter Administered Medications Inactive Administered Medications - up to 3 most recent administrations Medication Order MAR Action Action Date Dose Rate Site lidocaine (Xylocaine) 2 % injection Intravenous, PRN, Starting on Tue12/08/22 at 0911, Until Tue12/08/22 at 09, Anesthesia Intra-op $ Given 12/08/2022 9:11 AM HELMET BINDER 50 mg propofol (Diprivan) injection Intravenous, PRN, Starting on Tue12/08/22 at 0911, Until Tue12/08/22 at 0924, Anesthesia Intra-op $ Given 12/08/2022 9:14 AM HELMET BINDER 100 mg $ Given 12/08/2022 9:11 AM HELMET BINDER 100 mg documented in this encounter
--- OUTSIDE RECORDS SUMMARY | 2024-11-04 23:54 | XMS_ITS | Encounter Summary ---
Author Organization [facility] Address [address] [facility] [place] [address] Care Team Providers Care Seniour Insight Manager Name Role Phone Unavailable Primary Care Provider Unavailabl e Reason for Visit * Reason Comments Bariatric Surgery Follow-up Encounter Details Date Type Department Care Team (Late st Contact Info) Description 08/04/2022 2:30 PM CDT Office Visit [facility] Weight Management Services [address] [place] [phone] Raisa Schmidt MD [address] [place] [address] Vianey Llanes, PROFESSOR OF RADIOLOGY-CHLORINATOR OPERATOR [address] [place] [address] Class 1 obesity due to excess calories [...] Assigned at Female 11/25/2020 1:10 PM SALES PROFESSIONAL Gender Identity Female 11/25/2020 1:10 PM SALES PROFESSIONAL Sexual Orientation Straight 02/02/2021 4: 18 [...] hospital. Remove all jewelry, make up, finger/toe mongolian and body piercings prior to your arrival [...] this encounter Progress Notes * Vianey Llanes APRN-CHLORINATOR OPERATOR - 08/04/2022 4:57 PM CDT [facility] Weight Management Services at [address] [address] . . Date of encounter: 08/04/2022 Pt Name: Maria Del Carmen Ray : 1975 AGE: [age] year old SEX: female CSN: [id number] Visit type: Bariatric Post Operative visit Patients [...] No palpableventral hernias. Wound healing well. Skin: [place] and moist. No ulcers, rashes, or lesions. [...] LDL, HDL, TRIG, TSH in the last 46107 hours. No results for input(s): HGBA1C in the last 06041 hours. No results for input(s): PT, PTT, INR, TSH in the last 73241 hours. No results for input(s): TSH in the last 19538 hours. No results for input(s): IRON in the last 97276 hours. No results for input(s): [id number] in the last 81972 hours. No results for input(s): VITAMINA in the last 97496 hours. No results for input(s): IRON in the last 03083 hours. No results for input(s): VITK1 in the last 21833 hours. No results for input(s): [id number] in the last 01400 hours. No results for input(s): ALPHATOCOPH in the last 78934 hours. No results for input(s): GAMMATOCOPH in the last 44096 hours. No results for input(s): MAGMGDL in the last 50939 hours. Recent Labs Component Name 03/10/21 0413 [...] s/p: Laparoscopic Sleeve Gastrectomy. Date of surgery??03/09/2021??@ [facility] by??Dr. Mendoza. ?? Doing well [...] she is scheduled on 08/25/[address] Bailye at [facility] in [facility]. ?? Arthritis Due to being overweight and [...] recommendation. Follow up with: Surgeons / PA/ INDEPENDENT CROP CONSULTANT : [address] Schmidt to [...] [facility] [address] [place] [address] Vianey Llanes APRN-CNP [address] [place] [address] 03/15/2025 10:30 AM CDT Clinical Support [facility] Weight Management Services [address] [place] [address] documented as of this encounter Results * VITAMIN B1 (12/30/2022 10:30 AM SALES PROFESSIONAL) Pathologist [facility] Vitamin B1 Whole Blood 111 70 - 180 nmol/L 01/03/2023 7:30 AM SALES PROFESSIONAL [facility] ([facility]) Comment: INTERPRETIVE INFORMATION: Vitamin B1, Whole Blood This assay measures the concentration of thiamine diphosphate (TDP), the primary active form of vitamin B1. Approximately 90 percent of vitamin B1 present in whole blood is TDP. Thiamine and thiamine monophosphate, which comprise the remaining 10 percent, are not measured. This test was developed and its performance characteristics determined by [facility]. It has not been cleared or approved by the [place] Food and Drug Administration. This test was performed in a CLIA certified laboratory and is intended for clinical purposes. Performed By: [facility] [address] [place] [address] Heel Cover Splitter: Zach Bello MD, PhD Blood BLOOD SPECIMEN / Unknown Lab Venipuncture / Unknown 12/30/2022 10:30 AM SALES PROFESSIONAL 12/30/2022 10:41 AM SALES PROFESSIONAL Vianey Llanes PROFESSOR OF [facility] LAB - CHEMISTRY ORDERABLES Performing Organization Address [facility] de Phone Number [facility] [employer] ([facility]) [address] [place] [address] * (ABNORMAL) PTH INTACT+CALCIUM (12/30/2022 10:30 AM SALES PROFESSIONAL) PTH Intact 39 15 - 65 pg/mL 01/01/2023 1:23 PM SALES PROFESSIONAL [facility] [employer] ([facility]) Calcium 10.1(H) 8.6 - 10.0 mg/dL 01/01/2023 1:23 PM SALES PROFESSIONAL [facility] [employer] ([facility]) Comment: Performed By: [facility] [address] [place] [address] Heel Cover Splitter: Zach Bello MD, PhD Blood BLOOD SPECIMEN / Unknown Lab Venipuncture / Unknown 12/30/2022 10:30 AM SALES PROFESSIONAL 12/30/2022 10:41 AM SALES PROFESSIONAL Vianey Llanes APRNWAL[facility]. [facility] LAB - CHEMISTRY ORDERABLES Performing Organization Address City/[facility] Co de Phone Number [facility] [employer] [facility]) [address] [place] [address] * (ABNORMAL) VITAMIN D 25-HYDROXY (12/30/2022 10:30 AM SALES PROFESSIONAL) Vitamin D, 25 Hydroxy 28.2(L) 30 - 100 ng/mL 12/30/2022 11:22 AM SALES PROFESSIONAL [facility] Blood BLOOD SPECIMEN / Unknown Lab Venipuncture / Unknown 12/30/2022 10:30 AM SALES PROFESSIONAL 12/30/2022 10:41 AM SALES PROFESSIONAL Narrative [facility] - 12/30/2022 11:22 AM [facility] Reference Values: The recommendation for [...] performed to confirm the result. Vianey Llanes APRN-[facility] LAB - CHEMISTRY ORDERABLES Performing Organization Address [facility] de Phone Number [facility] [address] * IRON + TRANSFERRIN PANEL (12/30/2022 10:30 AM [facility]) Iron 98 50 - 170 [...] Venipuncture / Unknown 12/30/2022 10:30 AM SALES PROFESSIONAL 12/30/2022 10:41 AM [facility] Vianey Llanes PROFESSOR OF RADIOLOGYWAL[facility]. [facility] LAB - CHEMISTRY ORDERABLES Performing Organization Address [facility] de Phone Number [facility] [address] documented in this encounter Visit Diagnoses [...]
--- OUTSIDE RECORDS SUMMARY | 2024-11-04 23:54 | XMS_ITS | Encounter Summary ---
Author Organization [facility] Address [address] [place] [address] Care Team Providers Care Electron Beam Machine Welder Setter Name Role Phone Unavailable Primary Care Provider Unavailabl e Encounter Details Date Type Department Care Team (Late st Contact Info) Description 09/15/2022 1:00 PM SOCIOLOGY ADJUNCT INSTRUCTOR Video Visit [facility] Weight Management Services [address] [place] [phone] Raisa Schmidt MD [address] [place] [address] S/P laparoscopic sleeve gastrectomy Social History Tobacco Use Types Packs/Day Years Used Date Smoking Tobacco: Former Cigarettes Q uit: 06/2020 Smokeless Tobacco: Never Alcohol Use Standard Drinks/Week Comments Yes 14 (1 standard drink = 0.6 oz pu re alcohol) occ wine Sex and Gender Information Value Date Recorded Sex Assigned at Female 11/25/2020 1:10 PM SOCIOLOGY ADJUNCT INSTRUCTOR Gender Identity Female 11/25/2020 1:10 PM SOCIOLOGY ADJUNCT INSTRUCTOR Sexual Orientation Straight 02/02/2021 4: 18 PM CDT documented as of this encounter Last Filed Vital Signs Vital Sign Reading Time Taken Comments Blood Pressure - - Pulse - - Temperature - - Respiratory Rate - - Oxygen Saturation - - Inhaled Oxygen Concentration - - Weight 75.9 kg (167 lb 6.4 oz) 09/15/2022 12:00 PM SOCIOLOGY ADJUNCT INSTRUCTOR Height 160 cm (5' 3 ) 09/15/2022 12:00 PM SOCIOLOGY ADJUNCT INSTRUCTOR Body Mass Index 29.65 09/15/2022 12:00 PM SOCIOLOGY ADJUNCT INSTRUCTOR documented in this encounter Functional Status Functional [...] to the billing and collection practices of [facility]. Patient location: Work This encounter was performed [...] visits per protocol _X__ Jerrica Whitaker RD/LDN OLOGY ADJUNCT INSTRUCTOR documented in this encounter Plan of Treatment Upcoming Encounters Date Type Department Care Team (Late st Contact Info) Description 03/15/2025 10:00 AM CDT Office Visit [facility] Weight Management Services [address] [place] [phone] Vianey Llanes APRN-FLANGE TURNER [address] [place] [address] 03/15/2025 10:30 AM CDT Clinical Support [facility] Weight Management Services [address] [place] [phone] documented as of this encounter Visit Diagnoses Diagnosis S/P laparoscopic sleeve gastrectomy- Primary documented in this encounter
--- OUTSIDE RECORDS SUMMARY | 2024-11-04 23:54 | XMS_ITS | Encounter Summary ---
Author Organization [facility] Address [address] [facility] [place] [address] Care Team Providers Care Senior Business Manager Name Role Phone Unavailable Primary Care Provider Unavailabl e Encounter Details Date Type Department Care Team (Late st Contact Info) Description 04/10/2021 2:00 PM CDT Video Visit [facility] Weight Management Services [address] [place] [address] S/P laparoscopic sleeve gastrectomy Social History Tobacco Use Types Packs/Day Years Used Date Smoking Tobacco: Former Cigarettes Q uit: 06/2020 Smokeless Tobacco: Never Alcohol Use Standard Drinks/Week Comments Not Currently 14 (1 standard drink = 0.6 oz pu re alcohol) Sex and Gender Information Value Date Recorded Sex Assigned at Female 11/25/2020 1:10 PM PLANT ECOLOGIST Gender Identity Female 11/25/2020 1:10 PM PLANT ECOLOGIST Sexual Orientation Straight 02/02/2021 4: 18 PM [...] as of this encounter Progress Notes * eL Carvajal, RD/LD - 04/10/2021 2:00 PM CDT [...] to the billing and collection practices of [facility]. Patient location: work- sitting outside [...] Description 03/15/2025 10:00 AM CDT Office Visit [facility] Weight Management Services [address] [place] [phone] Vianey Llanes, BURT-ELEVATOR SERVICE TECHNICIAN [address], [place] [phone] 03/15/2025 10:30 AM CDT Clinical Support [facility] Weight Management Services [address] [place] [phone] documented as of this encounter Visit Diagnoses Diagnosis S/P laparoscopic sleeve gastrectomy- Primary documented in this encounter
--- OUTSIDE RECORDS SUMMARY | 2024-11-04 23:54 | XMS_ITS | Encounter Summary ---
Author Organization [facility] Address [address] [place] [address] Care Team Providers Care Material Movers Name Role Phone Cass Mast Primary Care Provider [phone] Reason for Visit * Reason Onset Date Comments General 03/22/2023 Encounter Details Date Type Department Care Team (Late st Contact Info) Description 03/22/2023 Telephone [facility] Weight Management Services [address] [place] [address] Raisa Schmidt MD [address] [place] [address] General Social History Tobacco Use [...] Sex Assigned at Female 11/25/2020 1:10 PM REDYE HAND Gender Identity Female 11/25/2020 1:10 PM REDYE HAND Sexual Orientation Straight 02/02/2021 4: 18 PM [...] Description 03/15/2025 10:00 AM CDT Office Visit [facility] Weight Management Services [address] [place] [phone] Vianey Llanes, PLATE HANGER-AIR/OCEAN EXPORT CLERK [address] [place] [address] 03/15/2025 10:30 AM CDT Clinical Support [facility] Weight Management Services [address] [place] [address] documented as of this encounter Visit Diagnoses Not on filedocumented in this encounter Care Teams Material Movers Relationship Specialty Start Date End Date Cass Mast PA [address] [place] [address] PCP - General Nurse Practitioner Primary Care 01/13/23 03/15/24 documented as of this encounter
--- OUTSIDE RECORDS SUMMARY | 2024-11-04 23:54 | XMS_ITS | Referral Summary ---
Author Organization [facility] Address [address] [facility] [address] Care Team Providers Care Hearing Therapy Teacher Name Role Phone Unavailable Primary Care Provider Unavailabl e Source Comments [facility],non-owned Affiliates and Associated Physician Practices is amultiple site organization consisting of ambulatory clinics and hospital sitesin [place], [place], [place] and [place]. This disclosure is being madepursuant to the Care Everywhere program and may not contain all information available regarding this patient. Last updated 18.[facility] Allergies Active Allergy Reactions Criticality Noted Date Comments Amoxicillin Rash,Unknown Medium 12/08/2018 Iodine Urticaria High 01/24/2023 Medications * Be aware that medications may not be up to date on this document. Alwaysverify current medications with the patient. Medication Sig Dispensed Refills Start Date End Date Status Multiple Vitamins-Minerals (CENTRUM SILVER PO) Activ e CALCIUM CITRATE PO Active nystatin (MYCOSTATIN) 408163 UNIT/GM cream Apply to affected area 2 times daily 15 g 2 03/10/2022 Active Additional Information Patient not taking.Reported on 03/09/2023 vitamin D, ergocalciferol, (Drisdol) 1.25 MG (09098 UT) capsuleIndications: Vitamin D Deficiency Take 1 [...] Sex Assigned at Female 11/25/2020 1:10 PM TIRE REGROOVING MACHINE OPERATOR Gender Identity Female 11/25/2020 1:10 PM TIRE REGROOVING MACHINE OPERATOR Sexual Orientation Straight 02/02/2021 4: [...] 10:00 AM CDT Office Visit [facility] Weight Management Services [address] [place] [phone] Vianey Llanes, CERTIFIED ALCOHOL COUNSELOR-CHARTER REPRESENTATIVE [address] [place] [address] 03/15/2025 10:30 AM CDT Clinical Support [facility] Weight Management Services [address] [place] [address] Procedures Procedure Name Priority Date/Time Associated Diagnosis Comments COMPREHENSIVE METABOLIC PANEL Routine 03/10/2021 4:13 AM CDT from Last 3 Months or Most Recently Relevant to Health Maintenance Results * (ABNORMAL) COMPREHENSIVE METABOLIC PANEL (03/10/2021 4:13 AM CDT) [facility] Glucose 101 70 - 125 mg/dL 03/10/2021 4:[address] [facility] Sodium 139 136 - 145 mmol/L 03/10/2021 4:[address] [facility] Potassium 3.5 3.4 - 4.5 mmol/L 03/10/2021 4:[address] [facility] Chloride 106 98 - 107 mmol/L 03/10/2021 4:[address] [facility] CO2 22 22 - 29 mmol/L 03/10/2021 4:[address] [facility] Calcium 8.7 8.4 - 10.2 mg/dL 03/10/2021 4:[address] [facility] Anion Gap 15 10 - 20 mmol/L 03/10/2021 4:[address] [facility] BUN 8.7(L) 9.8 - 20.1 mg/dL 03/10/2021 4:[address] [facility] Creatinine 0.91 0.57 - 1.11 mg/dL 03/10/2021 4:[address] [facility] eGFR by MDRD >60 >60 mL/min/1.7 3m2 03/10/2021 4:[address] [facility] eGFR by MDRD >60 >60 mL/min/1.7 3m2 03/10/2021 4:[address] [facility] Alkaline Phosphatase 47 40 - 150 U/L 03/10/2021 4:[address] [facility] ALT 54 5 - 55 U/L 03/10/2021 4:[address] [facility] AST 52(H) 5 - 34 U/L 03/10/2021 4:[address] [facility] Protein Total 6.2(L) 6.4 - 8.3 gm/dL 03/10/2021 4:[address] [facility] Albumin 3.4(L) 3.5 - 5.0 gm/dL 03/10/2021 4:[address] [facility] Globulin Total 2.8 2.6 - 4.0 gm/dL 03/10/2021 4:[address] [facility] Albumin/Globulin Ratio 1.2 0.9 - 1.6 03/10/2021 4:[address] [facility] Bilirubin Total 0.6 0.2 - 1.2 mg/dL 03/10/2021 4:[address] [facility] Blood BLOOD SPECIMEN / Unknown Lab Venipuncture / Unknown 03/10/2021 4:13 AM CDT 03/10/2021 4:33 AM CDT Rehan Mendoza MD LAB - CHEMISTRY [facility]AR[facility]E [facility] Organization Address City/State/[facility] Co de Phone Number [facility] [address] from Last 3 Months or Most Recently Relevant to Health Maintenance Advance Directives * Full Code (Latest Code Status on File) Date Activated Date Inactivated Comments 03/09/2021 11:13 AM 03/10/2021 2:16 PM
--- OUTSIDE RECORDS SUMMARY | 2024-11-04 23:54 | XMS_ITS | Encounter Summary ---
Author Organization [facility] Address [address] [place] [address] Care Team Providers Care Senior Category Manager Name Role Phone Unavailable Primary Care Provider Unavailabl e Reason for Visit * Reason Onset Date Comments Nutrition Counseling 03/26/2021 phase II Encounter Details Date Type Department Care Team (Late st Contact Info) Description 03/26/2021 Telephone [facility] Weight Management Services [address] [place] [address] Rehan Mendoza MD [address] [place] [phone] Nutrition Counseling (phase II) Social History Tobacco Use Types Packs/Day Years Used Date Smoking Tobacco: Former Cigarettes Q uit: 06/2020 Smokeless Tobacco: Never Alcohol Use Standard Drinks/Week Comments Not Currently 14 (1 standard drink = 0.6 oz pu re alcohol) Sex and Gender Information Value Date Recorded Sex Assigned at Female 11/25/2020 1:10 PM SPOOL WORKER Gender Identity Female 11/25/2020 1:10 PM SPOOL WORKER Sexual Orientation Straight 02/02/2021 4: 18 [...] Description 03/15/2025 10:00 AM CDT Office Visit [facility] Weight Management Services [address] [place] [phone] Vianey Llanes, TALEND ETL DEVELOPER-REMOTELY PILOTED VEHICLE CONTROLLER [address] [place], [place] [address] 03/15/2025 10:30 AM CDT Clinical Support [facility] Weight Management Services [address] [place] [phone] documented as of this encounter Visit Diagnoses Not on filedocumented in this encounter
--- OUTSIDE RECORDS SUMMARY | 2024-11-04 23:54 | XMS_ITS | Encounter Summary ---
Author Organization [facility] Address [address] [facility] [place] [address] Care Team Providers Care Fruit And Vegetable Packer Name Role Phone Unavailable Primary Care Provider Unavailabl e Reason for Visit * Reason Comments Bariatric Surgery Follow-up Encounter Details Date Type Department Care Team (Late st Contact Info) Description 11/03/2021 2:00 PM GROUP SEGMENT CONSULTANT Office Visit [facility] Weight Management Services [address] [place] [phone] Raisa Schmidt MD [address] [place] [phone] Maia Kennedy, WAREHOUSE TRAINER-COMMUNITY BOARD MEMBER [address] [place] [phone] Class 1 obesity without serious comorbidity with [...] Sex Assigned at Female 11/25/2020 1:10 PM GROUP SEGMENT CONSULTANT Gender Identity Female 11/25/2020 1:10 PM GROUP SEGMENT CONSULTANT Sexual Orientation Straight 02/02/2021 4: 18 PM CDT documented as of this encounter Last Filed Vital Signs Vital Sign Reading Time Taken Comments Blood Pressure 126/88 11/03/2021 1:00 PM GROUP SEGMENT CONSULTANT Pulse 60 11/03/2021 1:00 PM GROUP SEGMENT CONSULTANT Temperature 36.1 ??C (97 ??F) 11/03/2021 1:00 PM GROUP SEGMENT CONSULTANT Respiratory Rate 16 11/03/2021 1:00 PM GROUP SEGMENT CONSULTANT Oxygen Saturation - - Inhaled Oxygen Concentration - - Weight 83.2 kg (183 lb 6.4 oz) 11/03/2021 1:00 P M GROUP SEGMENT CONSULTANT Height 160 cm (5' 3 ) 11/03/2021 1:00 PM GROUP SEGMENT CONSULTANT Body Mass Index 32.49 11/03/2021 1:00 PM GROUP SEGMENT CONSULTANT documented in this encounter Functional Status Functional [...] this encounter Progress Notes * Maia Kennedy, BURT-COMMUNITY BOARD MEMBER - 11/03/2021 1:58 PM CST [facility] [place] [address] . . Date of encounter: No admission date for patient encounter. Pt Name: Maria Del Carmen Ray : 1975 AGE: [age] year old SEX: female CSN: [id number] Visit type: Bariatric Post Operative visit Patients [...] palpable ventral hernias. Wound healing well. Skin: [place] and moist. Extremities: Well perfused. No gross [...] LDL, HDL, TRIG, TSH in the last 76367 hours. No results for input(s): HGBA1C in the last 82035 hours. No results for input(s): PT, PTT, INR, TSH in the last 07006 hours. No results for input(s): TSH in the last 54282 hours. No results for input(s): IRON in the last 38213 hours. No results for input(s): [id number] in the last 57603 hours. No results for input(s): VITAMINA in the last 56515 hours. No results for input(s): IRON in the last 83715 hours. No results for input(s): VITK1 in the last 72782 hours. No results for input(s): [id number] in the last 43319 hours. No results for input(s): ALPHATOCOPH in the last 36349 hours. No results for input(s): GAMMATOCOPH in the last 96957 hours. No results for input(s): MAGMGDL in the last 60340 hours. Recent Labs Component Name 03/10/21 0413 [...] s/p: Laparoscopic Sleeve Gastrectomy. Date of surgery??03/09/2021??@ [facility] by??Dr. Mendoza. Doing well postoperatively. May use [...] , she is advised to contact the [facility] Weight Management Services Team ?? The patient [...] recommendation. Follow up with: Surgeons / PA/ HEAVY EQUIPMENT SUPERVISOR : 6 months for 1 year follow up Dietitian: as scheduled. She verbalized understanding and is agreeable to this plan after shared decision making with patient. Maia Kennedy APRN-COMMUNITY BOARD MEMBER CC: No primary care provider on file. P SEGMENT CONSULTANT documented in this encounter Plan of Treatment Upcoming Encounters Date Type Department Care Team (Late st Contact Info) Description 03/15/2025 10:00 AM CDT Office Visit [facility] Health Weight Management Services [address] [place] [address] Vinaey Llanes, WAREHOUSE TRAINER-COMMUNITY BOARD MEMBER [address], [place] [phone] 03/15/2025 10:30 AM CDT Clinical Support [facility] Weight Management Services [address] [place] [phone] documented as of this encounter Visit Diagnoses Diagnosis Class 1 obesity without serious comorbidity with body mass index (BMI) of 32.0 to 32.9 in adult, unspecified obesity type- Primary documented in this encounter
--- OUTSIDE RECORDS SUMMARY | 2024-11-04 23:54 | XMS_ITS | Encounter Summary ---
Author Organization [facility] Health Address [address] [facility] [place] [address] Care Team Providers Care Multimedia Developer Name Role Phone Unavailable Primary Care Provider Unavailabl e Reason for Visit * Reason Onset Date Comments Confirmation 12/01/2022 EGD Encounter Details Date Type Department Care Team (Late st Contact Info) Description 12/01/2022 Telephone [facility] Management Services [address] [place] [phone] Raisa Schmidt MD [address] [place] [phone] Confirmation (EGD) Social History Tobacco Use Types Packs/Day Years Used Date Smoking Tobacco: Former Cigarettes Q uit: 06/2020 Smokeless Tobacco: Never Alcohol Use Standard Drinks/Week Comments Yes 14 (1 standard drink = 0.6 oz pu re alcohol) occ wine Sex and Gender Information Value Date Recorded Sex Assigned at Female 11/25/2020 1:10 PM BUTTONHOLE MAKER Gender Identity Female 11/25/2020 1:10 PM BUTTONHOLE MAKER Sexual Orientation Straight 02/02/2021 4: 19 [...] set up. Wanted to confirm 12/08 EGD. ONHOLE MAKER documented in this encounter Plan of Treatment Upcoming Encounters Date Type Department Care Team (Late st Contact Info) Description 03/15/2025 10:00 AM CDT Office Visit [facility] Weight Management Services [address] [place] [phone] Vianey Llanes, JAVASCRIPT UI DEVELOPER-CHILD DEVELOPMENT DIRECTOR [address] [place] [address] 03/15/2025 10:30 AM CDT Clinical Support [facility] Weight Management Services [address] [place] [phone] documented as of this encounter Visit Diagnoses Not on filedocumented in this encounter
--- OUTSIDE RECORDS SUMMARY | 2024-11-04 23:54 | XMS_ITS | Encounter Summary ---
Author Organization [facility] Health Address [address] [facility] [place] [address] Care Team Providers Care Glueline Worker Name Role Phone Unavailable Primary Care Provider Unavailabl e Reason for Visit * Reason Onset Date Comments LABS ONLY 03/08/2022 Encounter Details Date Type Department Care Team (Late st Contact Info) Description 03/08/2022 Telephone [facility] Weight Management Services [address] [place] [phone] Maia Kennedy, VACCINE CUSTOMER REPRESENTATIVE-PAINTINGS CONSERVATOR [address] [place] [phone] LABS ONLY Social History Tobacco Use Types Packs/Day Years Used Date Smoking Tobacco: Former Cigarettes Q uit: 06/2020 Smokeless Tobacco: Never Alcohol Use Standard Drinks/Week Comments Not Currently 14 (1 standard drink = 0.6 oz pu re alcohol) Sex and Gender Information Value Date Recorded Sex Assigned at Female 11/25/2020 1:10 PM RELOCATION DIRECTOR Gender Identity Female 11/25/2020 1:10 PM RELOCATION DIRECTOR Sexual Orientation Straight 02/02/2021 4: 19 [...] if we received her lab results from [facility]. I voiced we have not received any results and this time. Pt voices she completed labs 3-4 weeks ago. Pt voices she will call hospital to have results faxed to us. Gave fax number [phone]. documented in this encounter Plan of Treatment Upcoming Encounters Date Type Department Care Team (Late st Contact Info) Description 03/15/2025 10:00 AM CDT Office Visit [facility] Weight Management Services [address] [place] [phone] Vianey Llanes, VACCINE CUSTOMER REPRESENTATIVE-PAINTINGS CONSERVATOR [address] [place] [address] 03/15/2025 10:30 AM CDT Clinical Support [facility] Weight Management Services [address] [place] [phone] documented as of this encounter Visit Diagnoses Not on filedocumented in this encounter
--- OUTSIDE RECORDS SUMMARY | 2024-11-04 23:54 | XMS_ITS | Patient Health Summary ---
Author Organization [facility] Address [address] [facility] [place] [address] Care Team Providers Care Recordings Librarian Name Role Phone Unavailable Primary Care Provider Unavailabl e Note from [facility],non-owned Affiliates and Associated Physician Practices is amultiple site organization consisting of ambulatory clinics and hospital sitesin [place], [place]. This disclosure is being madepursuant to the Care Everywhere program and may not contain all information available regarding this patient. Last updated 18.[facility] Allergies * Amoxicillin(Rash,Unknown) -Medium Criticality * Iodine(Urticaria) -High Criticality Medications * Be aware that medications may not be up to date on this document. Alwaysverify current medications with the patient. * Multiple Vitamins-Minerals (CENTRUM SILVER PO) * CALCIUM CITRATE PO * nystatin (MYCOSTATIN) 581264 UNIT/GM cream(Started 03/10/2022) Apply to affected area 2 times daily 2 refills by 03/10/2023 * vitamin D, ergocalciferol, (Drisdol) 1.25 MG (15826 UT) capsule(Started 01/03/2023) Take 1 (one) capsule [...] Sex Assigned at Female 11/25/2020 1:10 PM SOLDERING MACHINE OPERATOR HELPER Gender Identity Female 11/25/2020 1:10 PM SOLDERING MACHINE OPERATOR HELPER Sexual Orientation Straight 02/02/2021 4: [...] whether esophagitis present, S/P bariatric surgery * VT EGD FLEX TRANSORAL W BX SNGL OR [...] 03/09/2021) Performed for Morbid obesity (HCC) * VT LAP SLEEVE GASTRECTOMY(Performed 03/09/2021) Performed for Morbid obesity (HCC) * BLOOD TYPE VERIFICATION(Performed 03/06/2021) * TYPE + SCREEN PANEL(Performed 03/06/2021) Performed for Pre-op exam * SARS-COV-2 (COVID-19) IN HOUSE(Performed 03/06/2021) Performed for Pre-op exam * SARS-COV-2 (COVID-19) PANEL (SOIL)(Performed 03/06/2021) Performed for Pre-op exam * GROSS + MICRO EXAM (ILL)(Performed 02/23/2021) Performed for Gastroesophageal reflux disease, unspecified whether esophagitis present * VT EGD FLEX TRANSORAL W BX SNGL OR MULT(Performed 02/23/2021) Performed for Gastroesophageal reflux disease, unspecified whether esophagitis present * SARS-COV-2 (COVID-19) IN HOUSE(Performed 02/20/2021) Performed for Pre-operative laboratory examination * SARS-COV-2 (COVID-19) PANEL (SOIL)(Performed 02/20/2021) Performed for Pre-operative laboratory examination * GROSS + MICRO EXAM (ILL)(Performed 02/02/2021) Performed for Gastroesophageal reflux disease, unspecified whether esophagitis present * VT EGD FLEX TRANSORAL W BX SNGL OR [...] * (ABNORMAL) PTH INTACT+CALCIUM (12/30/2022 10:30 AM SOLDERING MACHINE OPERATOR HELPER) [facility] PTH Intact 39 15 - 65 pg/mL 01/01/2023 1:23 PM SOLDERING MACHINE OPERATOR HELPER [facility] Calcium 10.1(H) 8.6 - 10.0 mg/dL 01/01/2023 1:23 PM SOLDERING MACHINE OPERATOR HELPER [facility] Comment: Performed By: [place] [address] Linen Folder: Zach Bello MD, PhD Blood BLOOD SPECIMEN / Unknown Lab Venipuncture / Unknown 12/30/2022 10:30 AM SOLDERING MACHINE OPERATOR HELPER 12/30/2022 10:41 AM SOLDERING MACHINE OPERATOR HELPER Vianey Llanes [facility] - CHEMISTRY ORDERABLES Performing Organization Address [facility]/ZIP Co de Phone Number [facility]) [address] [place] [address] * VITAMIN B1 (12/30/2022 10:30 AM SOLDERING MACHINE OPERATOR HELPER) [facility] Vitamin B1 Whole Blood 111 70 - 180 nmol/L 01/03/2023 7:30 AM SOLDERING MACHINE OPERATOR HELPER [facility] Comment: INTERPRETIVE INFORMATION: Vitamin B1, Whole Blood This assay measures the concentration of thiamine diphosphate (TDP), the primary active form of vitamin B1. Approximately 90 percent of vitamin B1 present in whole blood is TDP. Thiamine and thiamine monophosphate, which comprise the remaining 10 percent, are not measured. This test was developed and its performance characteristics determined by [facility]. It has not been cleared or approved by the US Food and Drug Administration. This test was performed in a CLIA certified laboratory and is intended for clinical purposes. Performed By: [place] [address] Linen Folder: Zach Bello MD, PhD Blood BLOOD SPECIMEN / Unknown Lab Venipuncture / Unknown 12/30/2022 10:30 AM SOLDERING MACHINE OPERATOR HELPER 12/30/2022 10:41 AM SOLDERING MACHINE OPERATOR HELPER Vianey VIVAS LAB - CHEMISTRY ORDERABLES Performing Organization Address City/[facility]/ZIP Co de Phone Number [facility]) [address] [place] [address] * (ABNORMAL) VITAMIN D 25-HYDROXY (12/30/2022 10:30 AM [facility]) Vitamin D, 25 Hydroxy 28.2(L) 30 - 100 ng/mL 12/30/2022 11:22 AM [facility] Blood BLOOD SPECIMEN / Unknown Lab Venipuncture / Unknown 12/30/2022 10:30 AM SOLDERING MACHINE OPERATOR HELPER 12/30/2022 10:41 AM SOLDERING MACHINE OPERATOR HELPER Narrative [facility] - 12/30/2022 11:22 AM [facility] Reference Values: The recommendation for [...] performed to confirm the result. Vianey Llanes [facility] A[facility] SPECIALIST LAB - CHEMISTRY ORDERABLES Performing Organization Address [facility]/State/[facility] Co de Phone Number [facility] [address] * NICOTINE + METABOLITES BLOOD (12/30/2022 10:30 AM [facility]) Only the most recent of3 resultswithin the time period is included. Pathologist [facility] Nicotine <5 ng/mL 01/04/2023 1:35 AM [facility] Comment: Consistent with abstinence from nicotine-containing products [...] developed and its performance characteristics determined by [facility]. It has not been cleared or approved by the US Food and Drug Administration. This test was performed in a CLIA certified laboratory and is intended for clinical purposes. Performed By: [place] [address] Linen Folder: Zach Bello MD, PhD Cotinine <5 ng/mL 01/04/2023 1:35 AM [facility]) Blood BLOOD SPECIMEN / Unknown Lab Venipuncture / Unknown 12/30/2022 10:30 AM [facility] 12/30/2022 10:41 AM [facility] Raisa Schmidt MD LAB - CHEMISTRY ORDERABLES [facility]) [address] [place] [address] * IRON + TRANSFERRIN PANEL (12/30/2022 10:30 AM [facility]) Iron 98 50 - 170 ug/dL 12/30/2022 11:08 AM [facility] Transferrin 275 180 - 382 mg/dL 12/30/2022 11:08 AM [facility] TIBC Calculated 344 261 - 497 ug/dL 12/30/2022 11:08 AM [facility] Iron Saturation % 29 11 - 45 % 12/30/2022 11:08 AM [facility] Blood BLOOD SPECIMEN / Unknown Lab Venipuncture / Unknown 12/30/2022 10:30 AM SOLDERING MACHINE OPERATOR HELPER 12/30/2022 10:41 AM SOLDERING MACHINE OPERATOR HELPER Vianey Ruth Shraddha [facility] SPECIALIST LAB - CHEMISTRY ORDERABLES [facility] [address] * CARDIAC RHYTHM STRIP ORDER (12/09/2022 12:15 PM SOLDERING MACHINE OPERATOR HELPER) Only the most recent of2 resultswithin the time period is included. Narrative 12/09/2022 12:15 PM SOLDERING MACHINE OPERATOR HELPER Ordered by an unspecified provider. Scanned Document CARDIAC SERVICES ORD ERABLES * GROSS + MICRO EXAM (ILL) (12/08/2022 9:16 AM SOLDERING MACHINE OPERATOR HELPER) Only the most recent of4 resultswithin the time period is included. Case Report Surgical Pathology Report ? Case: [id number] ? Authorizing Provider: ??Raisa Schmidt MD ??Collected: ? 12/08/2022 09:16 AM ? Ordering Location: ? [facility] ?Received: ?12/08/2022 02:21 PM ? Pathologist: ? Chuckie Lujan MD ? Specimen: ?Antrum Biopsy, Antrum Biopsy to rule out H. pylori ? 12/09/2022 11:00 AM SOLDERING MACHINE OPERATOR HELPER [facility] Final Diagnosis Stomach, antrum, biopsy: - [...] were determined by the Histopathology Laboratory of [facility]. Some of these tests were developed by [...] slides and special stains prepared at [facility], [place]. [address] (CLIA# [id number]) unless otherwise specified. This case was interpreted by the [facility] Department of Pathology. When applicable, select reference laboratory testing is performed at the [facility], [address] [place] [address]. 12/09/2022 11:00 AM [facility] Embedded Images 12/09/2022 11:00 AM SOLDERING MACHINE OPERATOR HELPER [facility] Pathology/Cytology GASTRIC ANTRAL BIOPSY SPECIMEN / Unknown 12/08/2022 9:16 AM SOLDERING MACHINE OPERATOR HELPER 12/08/2022 2:21 PM SOLDERING MACHINE OPERATOR HELPER Comment:Pre-op diagnosis: Gastroesophageal reflux disease, unspecified whether esophagitis present [K21.9] S/P bariatric surgery [Z98.84] Raisa Schmidt MD LAB - PATHOLOGY/ CYTOLOGY ORDERABLES Performing Organization Address [facility] Co de Phone Number [facility] [address] [place] [address] * GLUCOSE - POINT OF CARE (03/10/2021 11:41 AM CDT) Only the most recent of8 resultswithin the time period is included. Pathologist [facility] Glucose WB/POC 100 70 - 125 mg/dL 03/10/2021 11:45 AM CDT [facility] Specimen Type Arterial/C apillary 03/10/2021 11:45 AM CDT [facility] Blood BLOOD SPECIMEN / Unknown 03/10/2021 11:41 AM CDT 03/10/2021 11:45 AM CDT Rehan Mendoza MD LAB - POINT OF CARE ORDERABLES Performing Organization Address [facility] de Phone Number [facility] [address] [place] [address] * (ABNORMAL) CBC W AUTO DIFFERENTIAL (03/10/2021 4:13 AM CDT) Only the most recent of2 resultswithin the time period is included. WBC 10.7(H) 4.0 - 10.0 x10E9/L 03/10/2021 4:37 AM CDT [facility] RBC 4.37 3.93 - 5.22 x10E12/L 03/10/2021 4:37 AM CDT [facility] Hemoglobin 13.3 11.2 - 15.7 gm/dL 03/10/2021 4:37 AM CDT [facility] Hematocrit 39.7 34.1 - 44.9 % 03/10/2021 4:37 AM CDT [facility] MCV 90.8 78.0 - 100.0 fl 03/10/2021 4:37 AM [facility] MCH 30.4 25.6 - 34.0 pg 03/10/2021 4:37 AM [facility] MCHC 33.5 32.3 - 36.5 gm/dL 03/10/2021 4:37 AM [facility] RDW 13.3 11.6 - 14.4 % 03/10/2021 4:37 AM [facility] MPV 10.1 9.4 - 12.4 fl 03/10/2021 4:37 AM [facility] Platelet Count 243 163 - 369 x10E9/L 03/10/2021 4:37 AM [facility] Neutrophils % 74.0 40.0 - 75.0 % 03/10/2021 4:37 AM [facility] Lymphocytes % 19.2(L) 19.3 - 53.1 % 03/10/2021 4:37 AM [facility] Monocytes % 6.6 4.7 - 12.5 % 03/10/2021 4:37 AM [facility] Eosinophils % 0.0(L) 0.7 - 7.0 % 03/10/2021 4:37 AM [facility] Basophils % 0.1 0.1 - 1.2 % 03/10/2021 4:37 AM [facility] Immature Granulocytes 0.1 0 - 0.5 % 03/10/2021 4:37 AM [facility] Neutrophil Absolute 7.88(H) 1.56 - 6.13 x10E9/L 03/10/2021 4:37 AM [facility] Lymphocytes Absolute 2.05 1.18 - 3.74 x10E9/L 03/10/2021 4:37 AM [facility] Monocytes Absolute 0.70 0.24 - 0.86 x10E9/L 03/10/2021 4:37 AM [facility] Eosinophils Absolute 0.00(L) 0.04 - 0.54 x10E9/L 03/10/2021 4:37 AM [facility] Basophils Absolute 0.01 0.01 - 0.08 x10E9/L 03/10/2021 4:37 AM [facility] Immature Granulocytes Absolute 0.01 0 - 0.03 x10E9/L 03/10/2021 4:37 AM CDT [facility] nRBC Auto 0 <=0 /100 WBC 03/10/2021 4:37 AM CDT [facility] nRBC Absolute 0.00 <=0 x10E9/L 03/10/2021 4:37 AM T [facility] Blood BLOOD SPECIMEN / Unknown Lab Venipuncture / Unknown 03/10/2021 4:13 AM CDT 03/10/2021 4:33 AM CDT Rehan Mendoza MD LAB - HEMATOLOGY ORD ERABLES [facility] [address] * (ABNORMAL) COMPREHENSIVE METABOLIC PANEL (03/10/2021 4:13 AM T) Only the most recent of2 resultswithin the time period is included. Glucose 101 70 - 125 mg/dL 03/10/2021 4:57 AM [facility] Sodium 139 136 - 145 mmol/L 03/10/2021 4:57 AM [facility] Potassium 3.5 3.4 - 4.5 mmol/L 03/10/2021 4:57 AM [facility] Chloride 106 98 - 107 mmol/L 03/10/2021 4:57 AM [facility] CO2 22 22 - 29 mmol/L 03/10/2021 4:57 AM [facility] Calcium 8.7 8.4 - 10.2 mg/dL 03/10/2021 4:57 AM [facility] Anion Gap 15 10 - 20 mmol/L 03/10/2021 4:57 AM [facility] BUN 8.7(L) 9.8 - 20.1 mg/dL 03/10/2021 4:57 AM [facility] Creatinine 0.91 0.57 - 1.11 mg/dL 03/10/2021 4:57 AM [facility] eGFR by MDRD >60 >60 mL/min/1.7 3m2 03/10/2021 4:57 AM [facility] eGFR by MDRD >60 >60 mL/min/1.7 3m2 03/10/2021 4:57 AM CDT [facility] Alkaline Phosphatase 47 40 - 150 U/L 03/10/2021 4:57 AM CDT [facility] ALT 54 5 - 55 U/L 03/10/2021 4:57 AM CDT [facility] AST 52(H) 5 - 34 U/L 03/10/2021 4:57 AM CDT [facility] Protein Total 6.2(L) 6.4 - 8.3 gm/dL 03/10/2021 4:57 AM CDT [facility] Albumin 3.4(L) 3.5 - 5.0 gm/dL 03/10/2021 4:57 AM CDT [facility] Globulin Total 2.8 2.6 - 4.0 gm/dL 03/10/2021 4:57 AM CDT [facility] Albumin/Globulin Ratio 1.2 0.9 - 1.6 03/10/2021 4:57 AM CDT [facility] Bilirubin Total 0.6 0.2 - 1.2 mg/dL 03/10/2021 4:57 AM CDT [facility] Blood BLOOD SPECIMEN / Unknown Lab Venipuncture / Unknown 03/10/2021 4:13 AM CDT 03/10/2021 4:33 AM CDT Rehan Mendoza MD LAB - CHEMISTRY ORDEfren AVINA Performing Organization Address [facility] de Phone Number [facility] [address] * PHOSPHORUS BLOOD (03/10/2021 4:13 AM CDT) Only the most recent of2 resultswithin the time period is included. Phosphorus 2.5 2.3 - 4.7 mg/dL 03/10/2021 4:58 AM CDT [facility] Blood BLOOD SPECIMEN / Unknown Lab Venipuncture / Unknown 03/10/2021 4:13 AM CDT 03/10/2021 4:33 AM CDT Rehan Mendoza MD LAB - CHEMISTRY KARLEE AVINA Performing Organization Address [facility] Co de Phone Number [facility] [address] * MAGNESIUM BLOOD (03/10/2021 4:13 AM CDT) Only the most recent of3 resultswithin the time period is included. Magnesium 2.1 1.6 - 2.6 mg/dL 03/10/2021 4:58 AM CDT [facility] Blood BLOOD SPECIMEN / Unknown Lab Venipuncture / Unknown 03/10/2021 4:13 AM CDT 03/10/2021 4:33 AM CDT Rehan Mendoza MD LAB - CHEMISTRY KARLEE AVINA [facility] [address] [place] [address] * BLOOD TYPE VERIFICATION (03/06/2021 7:14 AM CDT) ABO Rh O POS 03/06/2021 8:59 AM CDT [facility] Blood Bank BLOOD SPECIMEN / Unknown Lab Venipuncture / Unknown 03/06/2021 7:14 AM CDT 03/06/2021 7:17 AM CDT Aysha Evans MD LAB - BLOOD BANK ORD ERABLES Performing Organization Address City/[facility]/ZIP Co de Phone Number [facility] [address] [place] [address] * TYPE + SCREEN PANEL (03/06/2021 7:12 AM CDT) ABO Rh O POS 03/06/2021 9:20 AM CDT [facility] Antibody Screen NEG 9:20 AM CDT [facility] Blood Bank BLOOD SPECIMEN / Unknown Lab Venipuncture / Unknown 03/06/2021 7:12 AM CDT 03/06/2021 7:17 AM CDT Aysha Evans MD LAB - BLOOD BANK ORD ERABLES [facility] [address] [place] [address] * SARS-COV-2 (COVID-19) IN HOUSE (03/06/2021 6:11 AM CDT) Only the most recent of3 resultswithin the time period is included. COVID-19 PCR Not detected Not detected 03/07/2021 5:24 AM CDT [facility] Microbiology SPECIMEN FROM NASOPHARYNGEAL STRUCTURE / Unknown Collection / Unknown 03/06/2021 6:11 AM CDT 03/06/2021 8:43 AM CDT Narrative [facility] - 03/07/2021 5:24 AM CDT This nucleic acid amplification assay performance was validated by [facility]. This test has been authorized [...] Mendoza MD LAB - MICROBIOLOGY O RDERABLES [facility] [address] [place] [address], [place] [phone]
--- OUTSIDE RECORDS SUMMARY | 2024-11-04 23:54 | XMS_ITS | Encounter Summary ---
Author Organization [facility] Health Address [address] [facility] [place] [address] Care Team Providers Care Architectural Representative Name Role Phone Unavailable Primary Care Provider Unavailabl e Reason for Visit * Reason Onset Date Comments Reminder Call 12/22/2022 Echeck in Encounter Details Date Type Department Care Team (Late st Contact Info) Description 12/22/2022 Telephone [facility] Services [address] [place] [phone] Raisa Schmidt MD [address] [place] [phone] Reminder Call (Echeck in) Social History Tobacco [...] Sex Assigned at Female 11/25/2020 1:10 PM MEDICATION TECH Gender Identity Female 11/25/2020 1:10 PM MEDICATION TECH Sexual Orientation Straight 02/02/2021 4: 18 PM [...] Lesley Harkins LPN - 12/22/2022 9:33 AM MEDICATION TECH Called pt to remind her to complete echeck in through ToutApp, no success. Unable to leave message d/t VM not set up. Will send ToutApp message. BoxC message sent. CATION TECH documented in this encounter Plan of Treatment Upcoming Encounters Date Type Department Care Team (Late st Contact Info) Description 03/15/2025 10:00 AM CDT Office Visit [facility] Weight Management Services [address] [place] [phone] Vianey Llanes, GAMBLING FLOOR SUPERVISOR-ELECTRICAL DESIGN TECHNICIAN [address] [place] [address] 03/15/2025 10:30 AM CDT Clinical Support [facility] Weight [facility] Services [address] [place] [phone] documented as of this encounter Visit Diagnoses Not on filedocumented in this encounter
--- OUTSIDE RECORDS SUMMARY | 2024-11-04 23:54 | XMS_ITS | Encounter Summary ---
Author Organization [facility] Health Address [address] [place] [address] Care Team Providers Care Food Scientist Name Role Phone Unavailable Primary Care Provider Unavailabl e Reason for Visit * Reason Comments Bariatric Surgery Follow-up Encounter Details Date Type Department Care Team (Latest Contact Info) Description 03/16/2024 10:00 AM CDT Office Visit [facility] Weight Management Services [address] [place] [phone] Vianey Llanes, BANQUET STEWARDESS-MANAGER CORE [address] [place] [address] Overweight with body mass index (BMI) of [...] Sex Assigned at Female 11/25/2020 1:10 PM SUBASSEMBLIES WIRER Gender Identity Female 11/25/2020 1:10 PM SUBASSEMBLIES WIRER Sexual Orientation Straight 02/02/2021 4: 18 PM [...] this encounter Progress Notes * Vianey Llanes APRN-MANAGER CORE - 03/16/2024 9:15 AM CDT [facility] [place] [address] . . Date of encounter: 03/16/2024 Pt Name: Maria Del Carmen Ray : 1975 AGE: [age] year old SEX: female CSN: [id number] Visit type: Bariatric Post Operative visit Patients [...] PO) vitamin D, ergocalciferol, (Drisdol) 1.25 MG (16903 UT) capsule Take 1 (one) capsule by [...] No palpableventral hernias. Wound healing well. Skin: [place] and moist. No ulcers, rashes, or lesions. [...] , TRIG , TSH in the last 70636 hours. No results for input(s): HGBA1C in the last 84508 hours. No results for input(s): PT , PTT , INR , TSH in the last 74803 hours. No results for input(s): TSH in the last 80394 hours. Recent Labs Component Name 12/30/22 1030 IRON 98 No results for input(s): ANIGFOUN62 in the last 77808 hours. No results for input(s): VITAMINA in the last 77018 hours. Recent Labs Component Name 12/30/22 1030 IRON 98 No results for input(s): VITK1 in the last 39672 hours. No results for input(s): [id number] in the last 93865 hours. No results for input(s): ALPHATOCOPH in the last 61491 hours. No results for input(s): GAMMATOCOPH in the last 36033 hours. No results for input(s): MAGMGDL in the last 32121 hours. Recent Labs Component Name 03/10/21 0413 [...] Gastrectomy. Date of surgery 03/09/2021 @ [facility] byDr. Mendoza. History of pyloric ulcer Patient [...] colonoscopy was 08/25/[address] Bailey at [facility] in [facility]. Shewas recommended repeat colonoscopy in 5 years, [...] recommendation. Follow up with: Surgeons / PA/ ASSOCIATE PROFESSOR OF SOCIOLOGY : Dr. Schmidt for panniculectomy and annual visit with ASSOCIATE PROFESSOR OF SOCIOLOGY and RD Dietitian: as scheduled. She verbalized understanding and is agreeable to this plan after shared decision making with patient. Vianey Llanes APRN-BLAKE CC: YADIRA Apodaca (Inactive) documented in this encounter Plan of Treatment Upcoming Encounters Date Type Department Care Team (Late st Contact Info) Description 03/15/2025 10:00 AM CDT Office Visit [facility] Weight Management Services [address] [place] [address] Vianey Llanes, BURT-MANAGER CORE [address], [place] [address] 03/15/2025 10:30 AM CDT Clinical Support [facility] Weight Management Services [address] [place] [phone] Scheduled Orders Name Type Priority Associated Diagnoses [...]
--- OUTSIDE RECORDS SUMMARY | 2024-11-04 23:54 | XMS_ITS | Clinical Summary ---
Author Organization [facility] Address [address] [place] [address] Care Team Providers Care Clarifier Operator Helper Name Role Phone Unavailable Primary Care Provider Unavailabl e Source Comments [facility],non-owned Affiliates and Associated Physician Practices is amultiple site organization consisting of ambulatory clinics and hospital sitesin [place], [place], [place] and [place]. This disclosure is being madepursuant to the Care Everywhere program and may not contain all information available regarding this patient. Last updated 18.[facility] Allergies Active Allergy Reactions Criticality Noted Date Comments Amoxicillin Rash,Unknown Medium 12/08/2018 Iodine Urticaria High 01/24/2023 Medications * Be aware that medications may not be up to date on this document. Alwaysverify current medications with the patient. Medication Sig Dispensed Refills Start Date End Date Status Multiple Vitamins-Minerals (CENTRUM SILVER PO) Activ e CALCIUM CITRATE PO Active nystatin (MYCOSTATIN) 747526 UNIT/GM cream Apply to affected area 2 times daily 15 g 2 03/10/2022 Active Additional Information Patient not taking.Reported on 03/09/2023 vitamin D, ergocalciferol, (Drisdol) 1.25 MG (24866 UT) capsuleIndications: Vitamin D Deficiency Take 1 [...] Assigned at Female 11/25/2020 1:10 PM HEALTH PHYSICIST Gender Identity Female 11/25/2020 1:10 PM HEALTH PHYSICIST Sexual Orientation Straight 02/02/2021 4: 18 PM [...] CENTER Health Weight Management Services [address] [place] [phone] Vianey Llanes, RN ORTHOPAEDIC-INTERACTIVE PROJECT MANAGER [address] [place] [address] 03/15/2025 10:30 AM CDT Clinical Support [facility] Health Weight Management Services [address] [place] [phone] Health Maintenance Due Date Last Done Comments [...] COMPREHENSIVE METABOLIC PANEL (03/10/2021 4:13 AM CDT) [facility] Glucose 101 70 - 125 mg/dL 03/10/2021 4:57 AM [facility] Sodium 139 136 - 145 mmol/L 03/10/2021 4:57 AM [facility] Potassium 3.5 3.4 - 4.5 mmol/L 03/10/2021 4:57 AM [facility] Chloride 106 98 - 107 mmol/L 03/10/2021 4:57 AM [facility] CO2 22 22 - 29 mmol/L 03/10/2021 4:57 AM [facility] Calcium 8.7 8.4 - 10.2 mg/dL 03/10/2021 4:57 AM [facility] Anion Gap 15 10 - 20 mmol/L 03/10/2021 4:57 AM [facility] BUN 8.7(L) 9.8 - 20.1 mg/dL 03/10/2021 4:57 AM [facility] Creatinine 0.91 0.57 - 1.11 mg/dL 03/10/2021 4:57 AM [facility] eGFR by MDRD >60 >60 mL/min/1.7 3m2 03/10/2021 4:57 AM [facility] eGFR by MDRD >60 >60 mL/min/1.7 3m2 03/10/2021 4:57 AM [facility] Alkaline Phosphatase 47 40 - 150 U/L 03/10/2021 4:57 AM [facility] ALT 54 5 - 55 U/L 03/10/2021 4:57 AM [facility] AST 52(H) 5 - 34 U/L 03/10/2021 4:57 AM [facility] Protein Total 6.2(L) 6.4 - 8.3 gm/dL 03/10/2021 4:57 AM [facility] Albumin 3.4(L) 3.5 - 5.0 gm/dL 03/10/2021 4:57 AM [facility] Globulin Total 2.8 2.6 - 4.0 gm/dL 03/10/2021 4:57 AM [facility] Albumin/Globulin Ratio 1.2 0.9 - 1.6 03/10/2021 4:57 AM CDT [facility] Bilirubin Total 0.6 0.2 - 1.2 mg/dL 03/10/2021 4:57 AM CDT [facility] Blood BLOOD SPECIMEN / Unknown Lab Venipuncture / Unknown 03/10/2021 4:13 AM CDT 03/10/2021 4:33 AM CDT Rehan Mendoza MD LAB - CHEMISTRY KARLEE AVINA Performing Organization Address City/State/[facility] Co de Phone Number [facility] [address] from Last 3 Months or Most Recently Relevant to Health Maintenance Advance Directives * Full Code (Latest Code Status on File) Date Activated Date Inactivated Comments 03/09/2021 11:13 AM 03/10/2021 2:16 PM
--- OUTSIDE RECORDS SUMMARY | 2024-11-04 23:54 | XMS_ITS | Encounter Summary ---
Author Organization [facility] Health Address [address] [place] [address] Care Team Providers Care Locomotive Crane Operator Helper Name Role Phone Unavailable Primary Care Provider Unavailabl e Reason for Visit * Reason Onset Date Comments LABS ONLY 07/31/2021 iron deficiency Encounter Details Date Type Department Care Team (Late st Contact Info) Description 07/31/2021 Telephone [facility] Weight Management Services [address] [place] [address]/SIN LABS ONLY (iron deficiency) Social History Tobacco Use Types Packs/Day Years Used Date Smoking Tobacco: Former Cigarettes Q uit: 06/2020 Smokeless Tobacco: Never Alcohol Use Standard Drinks/Week Comments Not Currently 14 (1 standard drink = 0.6 oz pu re alcohol) Sex and Gender Information Value Date Recorded Sex Assigned at Female 11/25/2020 1:10 PM ELECTRIC MOTOR WINDERS ASSEMBLER Gender Identity Female 11/25/2020 1:10 PM ELECTRIC MOTOR WINDERS ASSEMBLER Sexual Orientation Straight 02/02/2021 4: 18 PM [...] HOSPITAL Health Weight Management Services [address] [place] [phone] Vianey Llanes, PERSONNEL QUALITY ASSURANCE AUDITOR-DRIVER EDUCATION INSTRUCTOR [address] [place], [place] [address] 03/15/2025 10:30 AM CDT Clinical Support [facility] Weight Management Services [address] [place] [phone] documented as of this encounter Visit Diagnoses Not on filedocumented in this encounter
--- OUTSIDE RECORDS SUMMARY | 2024-11-04 23:54 | XMS_ITS | Encounter Summary ---
Author Organization [facility] Health Address [address] [place] [address] Care Team Providers Care Sterile Process Coordinator Name Role Phone Unavailable Primary Care Provider Unavailabl e Reason for Visit * Reason Comments Bariatric Surgery Follow-up Encounter Details Date Type Department Care Team (Late st Contact Info) Description 04/10/2021 1:30 PM CDT Video Visit [facility] Weight Management Services [address] [place] [phone] Tram Pemberton, SUPERVISOR COOPERAGE [facility] [address] [place] [address] Class 2 obesity due to excess calories [...] Sex Assigned at Female 11/25/2020 1:10 PM BUILDINGS AND GROUNDS SUPERVISOR Gender Identity Female 11/25/2020 1:10 PM BUILDINGS AND GROUNDS SUPERVISOR Sexual Orientation Straight 02/02/2021 4: 18 [...] Pemberton APRN-CNP - 04/08/2021 9:08 AM CDT [facility] Health [place] [address] . . Date of encounter: 04/10/2021 Pt Name: Maria Del Carmen Ray : 1975 AGE: [age] year old SEX: female CSN: [id number] Visit type: Bariatric Post Operative Telemedicine visit [...] and copies of medical records [facility]. Maria Del Carmen Ray presents to the [...] Gatherings with Friends and Family: ??? Attends Mandaen Services: ??? Active Member of Clubs or [...] Reasons: Gastroesophageal Reflux Disease ??? Probiotic Product ([employer]) capsule Take 1 (one) capsule by mouth [...] [facility]. ?? Doing well postoperatively: [...] , she is advised to contact the [facility] Weight Management Services Team The patient verbalizes [...] recommendation. Follow up with: Surgeons / PA/ TEACHER AIDE CLERICAL : 2 months.PRN Dietitian: as scheduled. Today , I have notified patient of Dr Mendoza departure from this program She was offered to follow with Dr Mendoza at his new Bariatric Program, Offered follow up with Dr Schmidt in our program or may follow with [facility] Herman Patient wishes to do bariatric follow up visits with [facility]/ Dr Schmidt Patient location: parked in private [...] Description 03/15/2025 10:00 AM CDT Office Visit [facility] Weight Management Services [address] [place] [phone] Vianey Llanes APRN-CNP [address] [place] [address] 03/15/2025 10:30 AM CDT Clinical Support [facility] Health Weight Management Services [address] [place] [phone] documented as of this encounter Visit Diagnoses [...]
--- OUTSIDE RECORDS SUMMARY | 2024-11-04 23:54 | XMS_ITS | Encounter Summary ---
Author Organization [facility] Health Address [address] [place] [address] Care Team Providers Care Developmental Training Counselor Name Role Phone Cass Mast Primary Care Provider [phone] Reason for Visit * Reason Onset Date Comments General 09/01/2023 Encounter Details Date Type Department Care Team (Late st Contact Info) Description 09/01/[address] [facility] Weight Management Services [address] [place] [address] Raisa Shcmidt MD [address] [place] [address] General Social History Tobacco Use [...] Sex Assigned at Female 11/25/2020 1:10 PM LAND ACQUISITION ANALYST Gender Identity Female 11/25/2020 1:10 PM LAND ACQUISITION ANALYST Sexual Orientation Straight 02/02/2021 4: 18 [...] Cash - 09/01/2023 9:53 AM CDT Sent [employer] message for pt to call in to office to let us know if she would like to schedule or pause documented in this encounter Plan of Treatment Upcoming Encounters Date Type Department Care Team (Late st Contact Info) Description 03/15/2025 10:00 AM CDT Office Visit [facility] Weight Management Services [address] [place] [phone] Vianey Llanes, TERMINAL OPERATIONS SUPERVISOR-BUSINESS LIAISON MANAGER [address] [place] [address] 03/15/2025 10:30 AM CDT Clinical Support [facility] Weight Management Services [address] [place] [address] documented as of this encounter Visit Diagnoses Not on filedocumented in this encounter Care Teams Developmental Training Counselor Relationship Specialty Start Date End Date Cass Mast PA [address] [place] [address] PCP - General Nurse Practitioner Primary Care 01/13/23 03/15/24 documented as of this encounter
--- OUTSIDE RECORDS SUMMARY | 2024-11-04 23:54 | XMS_ITS | Encounter Summary ---
Author Organization [facility] Health Address [address] [place] [address] Care Team Providers Care Police Liaison Officer Name Role Phone Cass Mast Primary Care Provider [phone] Encounter Details Date Type Department Care Team (Late st Contact Info) Description 05/03/2023 Orders Only [facility] Weight Management Services [address] [place] [phone] Vianey Llanes, ANALYTICS SENIOR MANAGER-ASSEMBLY LINE BRAZER [address] [place] [address] Vitamin D deficiency Social History Tobacco Use [...] Sex Assigned at Female 11/25/2020 1:10 PM STARCH COOKER Gender Identity Female 11/25/2020 1:10 PM STARCH COOKER Sexual Orientation Straight 02/02/2021 4: 18 PM [...] AM CDT Office Visit [facility] Weight Management Services [address] [place] [address] Vianey Llanes, ANALYTICS SENIOR MANAGER-ASSEMBLY LINE BRAZER [address] [place] [address] 03/15/2025 10:30 AM CDT Clinical Support [facility] Weight Management Services [address] [place] [phone] documented as of this encounter Visit Diagnoses Diagnosis Vitamin D deficiency documented in this encounter Care Teams Police Liaison Officer Relationship Specialty Start Date End Date Cass Mast PA [address] [place] [address] PCP - General Nurse Practitioner Primary Care 01/13/23 03/15/24 documented as of this encounter
--- OUTSIDE RECORDS SUMMARY | 2024-11-04 23:54 | XMS_ITS | Encounter Summary ---
Author Organization [facility] Health Address [address] [place] [address] Care Team Providers Care Inspector Mechanical Name Role Phone Cass Mast Primary Care Provider [phone] Reason for Visit * Reason Onset Date Comments Question 04/20/2023 Lab results Encounter Details Date Type Department Care Team (Late st Contact Info) Description 04/20/2023 Telephone [facility] Weight Management Services [address] [place] [address] Raisa Schmidt MD [address] [place] [phone] Question (Lab results) Social History Tobacco Use [...] Sex Assigned at Female 11/25/2020 1:10 PM ACADEMIC AFFAIRS COORDINATOR Gender Identity Female 11/25/2020 1:10 PM ACADEMIC AFFAIRS COORDINATOR Sexual Orientation Straight 02/02/2021 4: 18 [...] her lab results she had completed at [facility]. I voiced we had received partial lab results from 03/22/2023 with no provider recommendations at this time. Pt voices she has already called [place] to have them fax results. I voiced she may call them again. Iprovided pt with our fax number. Pt voices she will also call her PCP office to see if they sent labs there. documented in this encounter Plan of Treatment Upcoming Encounters Date Type Department Care Team (Late st Contact Info) Description 03/15/2025 10:00 AM CDT Office Visit [facility] Health Weight Management Services [address] [place] [phone] Vianey Llanes, STEEL HANGER-CROWNING HAMMER OPERATOR [address] [place] [address] 03/15/2025 10:30 AM CDT Clinical Support [facility] Health Weight Management Services [address] [place] [phone] documented as of this encounter Visit Diagnoses Not on filedocumented in this encounter Care Teams Inspector Mechanical Relationship Specialty Start Date End Date Cass Mast PA [address] [place] [address] PCP - General Nurse Practitioner Primary Care 01/13/23 03/15/24 documented as of this encounter
--- OUTSIDE RECORDS SUMMARY | 2024-11-04 23:54 | XMS_ITS | Encounter Summary ---
Author Organization [facility] Health Address [address] [place] [address] Care Team Providers Care Customer Care Representative Name Role Phone Unavailable Primary Care Provider Unavailabl e Reason for Visit * Reason Onset Date Comments Pain Abdominal 05/06/2021 Encounter Details Date Type Department Care Team (Late st Contact Info) Description 05/06/2021 Telephone [facility] Weight Management Services [address] [place] [phone] Vianey Llanes, CASE CONSULTANT-ORANGE PICKER [address] [place] [address] Pain Abdominal Social History Tobacco Use Types Packs/Day Years Used Date Smoking Tobacco: Former Cigarettes Q uit: 06/2020 Smokeless Tobacco: Never Alcohol Use Standard Drinks/Week Comments Not Currently 14 (1 standard drink = 0.6 oz pu re alcohol) Sex and Gender Information Value Date Recorded Sex Assigned at Female 11/25/2020 1:10 PM TRAVEL SERVICES PROFESSIONAL Gender Identity Female 11/25/2020 1:10 PM TRAVEL SERVICES PROFESSIONAL Sexual Orientation Straight 02/02/2021 4: 18 [...] Patient states she went to ER at [facility] on 04/28/21 she had labs [...] Services [address] [place] [phone] Vianey Llanes, CASE CONSULTANT-ORANGE PICKER [address] [place], [place] [address] 03/15/2025 10:30 AM CDT Clinical Support [facility] Weight Management Services [address] [place] [phone] documented as of this encounter Visit Diagnoses Not on filedocumented in this encounter
--- OUTSIDE RECORDS SUMMARY | 2024-11-04 23:54 | XMS_ITS | Encounter Summary ---
Author Organization [facility] Health Address [address] [place] [address] Care Team Providers Care Professional Development Manager Name Role Phone Unavailable Primary Care Provider Unavailabl e Reason for Visit * Reason Onset Date Comments Return To Work 03/24/2021 Encounter Details Date Type Department Care Team (Late st Contact Info) Description 03/24/2021 Telephone [facility] Weight Management Services [address] [place] [phone] Tram Pemberton, CNC ROUTER OPERATOR-SITECORE DEVELOPER [address] [place] [address] Return To Work Social History Tobacco Use Types Packs/Day Years Used Date Smoking Tobacco: Former Cigarettes Q uit: 06/2020 Smokeless Tobacco: Never Alcohol Use Standard Drinks/Week Comments Not Currently 14 (1 standard drink = 0.6 oz pu re alcohol) Sex and Gender Information Value Date Recorded Sex Assigned at Female 11/25/2020 1:10 PM INSTRUCTOR DANCING Gender Identity Female 11/25/2020 1:10 PM INSTRUCTOR DANCING Sexual Orientation Straight 02/02/2021 4: 18 PM [...] okay to vacuum. Discussed with Tram Pemberton CITY EDITOR and patient is good to return. Patient informed vacuum is fine, and note emailed to patient and faxed to [phone]. documented in this encounter Plan of Treatment Upcoming Encounters Date Type Department Care Team (Late st Contact Info) Description 03/15/2025 10:00 AM CDT Office Visit [facility] Health Weight Management Services [address] [place] [phone] Vianey Llanes, CNC ROUTER OPERATOR-SITECORE DEVELOPER [address] [place], [place] [address] 03/15/2025 10:30 AM CDT Clinical Support [facility] [employer] Weight Management Services [address] [place] [phone] documented as of this encounter Visit Diagnoses Not on filedocumented in this encounter
--- OUTSIDE RECORDS SUMMARY | 2024-11-04 23:54 | XMS_ITS | Encounter Summary ---
Author Organization [facility] Health Address [address] [facility] [place] [address] Care Team Providers Care Physician Chief Of Pathology Name Role Phone Unavailable Primary Care Provider Unavailabl e Reason for Visit * Reason Onset Date Comments Results 01/03/2023 Vit D Encounter Details Date Type Department Care Team (Late st Contact Info) Description 01/03/2023 Telephone [facility] Weight Management Services [address] [place] [phone] Vianey Llanes, INFORMATION ASSOC-SHOE PARTS MOLDER [address] [place] [address] Results (Vit D ) Social History Tobacco [...] Assigned at Female 11/25/2020 1:10 PM ENVIRONMENTAL MAINTENANCE WORKER Gender Identity Female 11/25/2020 1:10 PM ENVIRONMENTAL MAINTENANCE WORKER Sexual Orientation Straight 02/02/2021 4: 18 PM CDT COVID-19 Exposure Response Date Recorded In the last 10 days, have yo u been in contact with someone who was confirmed or suspected to have Coronavirus/COVID-19? No / Unsure 12/30/2022 10:11 AM ENVIRONMENTAL MAINTENANCE WORKER documented as of this encounter Functional Status [...] Lesley Harkins LPN - 01/03/2023 9:10 AM ENVIRONMENTAL MAINTENANCE WORKER Pt called office and voices she had questions regarding her labs. Vit D low. Supplement explained and script sent to pharmacy. Vit D lab order placed and pt v/u. RONMENTAL MAINTENANCE WORKER * Telephone Encounter - Lesley Harkins LPN - 01/03/2023 9:10 AM ENVIRONMENTAL MAINTENANCE WORKER ----- Message from SANGEETHA Grigsby sent at 12/30/2022 3:02 PM ENVIRONMENTAL MAINTENANCE WORKER ----- Patient needs Vitamin D replaced per protocol RONMENTAL MAINTENANCE WORKER documented in this encounter Plan of Treatment Upcoming Encounters Date Type Department Care Team (Late st Contact Info) Description 03/15/2025 10:00 AM CDT Office Visit [facility] Health Weight Management Services [address] [place] [address] Vianey Llanes APRN-CNP [address] [place] [address] 03/15/2025 10:30 AM CDT Clinical Support [facility] Health Weight Management Services [address] [place] [address] Scheduled Orders Name Type Priority Associated Diagnoses Orde r Schedule VITAMIN D 25-HYDROXY Lab Routine Vitamin D deficiency Expected: 05/03/2023 (Approximate), Expires: 01/03/2024 documented as of this encounter Visit Diagnoses Diagnosis Vitamin D deficiency- Primary documented in this encounter
--- OUTSIDE RECORDS SUMMARY | 2024-11-04 23:54 | XMS_ITS | Encounter Summary ---
Author Organization [facility] Address [address] [facility] [place] [address] Care Team Providers Care Solar Panel Installation Supervisor Name Role Phone Unavailable Primary Care Provider Unavailabl e Encounter Details Date Type Department Care Team (Late st Contact Info) Description 04/08/2022 9:00 AM CDT Video Visit [facility] [address] [place] [phone] Raisa Schmidt MD [address] [place] [phone] S/P laparoscopic sleeve gastrectomy Social History Tobacco Use Types Packs/Day Years Used Date Smoking Tobacco: Former Cigarettes Q uit: 06/2020 Smokeless Tobacco: Never Alcohol Use Standard Drinks/Week Comments Not Currently 14 (1 standard drink = 0.6 oz pu re alcohol) Sex and Gender Information Value Date Recorded Sex Assigned at Female 11/25/2020 1:10 PM VP SALES Gender Identity Female 11/25/2020 1:10 PM VP SALES Sexual Orientation Straight 02/02/2021 4: 18 PM [...] the billing and collection practices of [facility]. Patient location: Home This encounter was performed [...] Description 03/15/2025 10:00 AM CDT Office Visit [facility] [address] [place] [phone] Vianey Llanes, MARYCLINICAL RESEARCH SCIENTIST [address] [place] [address] 03/15/2025 10:30 AM CDT Clinical Support [facility] [address] [place] [phone] documented as of this encounter Visit Diagnoses Diagnosis S/P laparoscopic sleeve gastrectomy- Primary documented in this encounter
--- OUTSIDE RECORDS SUMMARY | 2024-11-04 23:54 | XMS_ITS | Encounter Summary ---
Author Organization [facility] Address [address] [facility] [place] [address] Care Team Providers Care Manager Of Engineering Name Role Phone Unavailable Primary Care [...] Expiration Date Visits Re quested Visits Authorized [id number] 1 1 Encounter Details Date Type Department Care Team (Latest Contact Info) Description 12/08/2022 7:14 AM TANK PROCESSOR - 12/08/2022 10:14 AM [facility] Hospital Encounter [facility] [address] [place] [address] Raisa Schmidt MD [address] [place] [phone] Surgery General Discharge Disposition: Home or Self [...] Sex Assigned at Female 11/25/2020 1:10 PM TANK PROCESSOR Gender Identity Female 11/25/2020 1:10 PM TANK PROCESSOR Sexual Orientation Straight 02/02/2021 4: 18 PM CDT documented as of this encounter Last Filed Vital Signs Vital Sign Reading Time Taken Comments Blood Pressure 138/94 12/08/2022 9:57 AM TANK PROCESSOR Pulse 57 12/08/2022 9:57 AM TANK PROCESSOR Temperature 36.6 ??C (97.9 ??F) 12/08/2022 9:50 AM CS T Respiratory Rate 16 12/08/2022 9:50 AM TANK PROCESSOR Oxygen Saturation 100% 12/08/2022 9:57 AM TANK PROCESSOR Inhaled Oxygen Concentration - - Weight 74.8 kg (164 lb 14.5 oz) 12/08/2022 7:37 AM TANK PROCESSOR Height 154.9 cm (5' 1 ) 12/08/2022 7:37 AM TANK PROCESSOR Body Mass Index 31.16 12/08/2022 7:37 AM TANK PROCESSOR documented in this encounter Functional Status Functional [...] Multiple Vitamins-Minerals (CENTRUM SILVER PO) nystatin (MYCOSTATIN) 010433 UNIT/GM cream Apply to affected area 2 [...] prior H&P was completed. Raisa Schmidt MD PROCESSOR Source Note - Raisa Schmidt MD - 11/11/2022 9:49 AM TANK PROCESSOR [facility] [place] [address] . . Date of encounter: No admission date for patient encounter. Pt Name: Maria Del Carmen Ray : 1975 AGE: [age] year old SEX: female CSN: [id number] Visit type: Weight Management Follow Up Patients [...] Vitamins-Minerals (CENTRUM SILVER PO) ??? nystatin (MYCOSTATIN) 216172 UNIT/GM cream Apply to affected area 2 [...] LDL, HDL, TRIG, TSH in the last 19115 hours. No results for input(s): HGBA1C in the last 02974 hours. No results for input(s): PT, PTT, INR, TSH in the last 63764 hours. No results for input(s): TSH in the last 96624 hours. No results for input(s): IRON in the last 74712 hours. No results for input(s): [id number] in the last 62141 hours. No results for input(s): VITAMINA in the last 08653 hours. No results for input(s): IRON in the last 60279 hours. No results for input(s): VITK1 in the last 90433 hours. No results for input(s): [id number] in the last 48493 hours. No results for input(s): ALPHATOCOPH in the last 94252 hours. No results for input(s): GAMMATOCOPH in the last 87865 hours. No results for input(s): MAGMGDL in the last 37599 hours. Recent Labs Component Name 03/10/21 0413 PHOS 2.5 Some lab results will be in paper format so may be scanned in the EMR. Imaging studies No results found. Some Imaging studies results will be in paper format so may be scanned in the EMR. Assessment and Plan Overweight: S/P Bariatric Surgery :??s/p: Laparoscopic Sleeve Gastrectomy. Date of surgery??03/09/2021??@ [facility] by??Dr. Mendoza. Change in weight [...] colonoscopy was 08/25/[address] Bailey at [facility] in [facility]. Shewas recommended repeat colonoscopy in 5 [...] as documented in Epic. Raisa Schmidt MD PROCESSOR documented in this encounter OR Notes * Operative - Raisa Schmidt MD - 12/08/2022 9:00 AM CST Esophagogastroduodenoscopy Procedure Note Date of Surgery: 12/08/22 Surgeon(s) and Role: * Raisa Schmidt MD - Primary Drafter Commercial: Smiley Rodriguez RN Scrub Person: Jo Blandon [...] Condition: stable Recommendations: -Await pathology., -Follow symptoms. PROCESSOR documented in this encounter Plan of Treatment Upcoming Encounters Date Type Department Care Team (Late st Contact Info) Description 03/15/2025 10:00 AM CDT Office Visit [facility] [address] [place] [phone] Vianey Llanes, NURSERY SCHOOL TEACHER-TOURS HOSTESS [address] [place], [place] [address] 03/15/2025 10:30 AM CDT Clinical Support [facility] [address] [place] [phone] Scheduled Orders Name Type Priority Associated Diagnoses Orde r Schedule EGD GI Routine ONCE for 1 Occ urrences starting 12/08/2022 until 12/08/2022 documented as of this encounter Procedures Procedure Name Priority Date/Time Associated Diagnosis Comments CARDIAC RHYTHM STRIP ORDER 12/09/2022 12:15 PM TANK PROCESSOR GROSS + MICRO EXAM (ILL) Routine 12/08/2022 9:16 AM TANK PROCESSOR Gastroesophageal reflux disease, unspecified whether esophagitis present S/P bariatric surgery AR EGD FLEX TRANSORAL W BX SNGL OR MULT 12/08/2022 9:08 AM TANK PROCESSOR Gastroesophageal reflux disease, unspecified whether esophagitis present S/P bariatric surgery Special Needs Arrival time:0730 documented in this encounter Results * CARDIAC RHYTHM STRIP ORDER (12/09/2022 12:15 PM TANK PROCESSOR) Narrative 12/09/2022 12:15 PM TANK PROCESSOR Ordered by an unspecified provider. Scanned Document CARDIAC SERVICES ORD ERABLES * GROSS + MICRO EXAM (ILL) (12/08/2022 9:16 AM TANK PROCESSOR) Case Report Surgical Pathology Report ? Case: [id number] ? Authorizing Provider: ??Raisa Schmidt MD ??Collected: ? 12/08/2022 09:16 AM ? Ordering Location: ? [facility] ?Received: ?12/08/2022 02:21 PM ? Pathologist: ? Chuckie Lujan MD ? Specimen: ?Antrum Biopsy, Antrum Biopsy to rule out H. pylori ? 12/09/2022 11:[address] [facility] Final Diagnosis Stomach, antrum, biopsy: - Fragments of antral mucosa with no histopathologic abnormality - No Helicobacter pylori organisms identified (H&E exam) 12/09/2022 11:[address] [facility] Microscopic Description and Comment Microscopic examination is performed and substantiates the above diagnosis. 12/09/2022 11:[address] [facility] Clinical History Gastroesophageal reflux disease, status post bariatric surgery Findings: - normal duodenum -normal gastric antrum -evidence of sleeve gastrectomy initiated 8 cm proximal to the pylorus with no evidence of tight angulation at the incisura and no retained fundus -no hiatal hernia -normal Z-line -normal esophagus -normal cords 12/09/2022 11:[address] [facility] Gross Description The requisition and [...] cassette A1. AW 12/09/2022 11:[address] [facility] Disclaimer The performance characteristics of all immunohistochemical and indirect immunofluorescence stains (if any) cited in this report were determined by the Histopathology Laboratory of [facility]. Some of these tests were [...] H&E slides [place]. [address] (CLIA# [id number]) unless otherwise specified. This case was interpreted by the [facility] Department of Pathology. When applicable, select reference laboratory testing is performed at the [facility] Pathology [facility], [address] [place] [address]. 12/09/2022 11:[address] [facility] Embedded Images 12/09/2022 11:[address] [facility] Pathology/Cytology GASTRIC ANTRAL BIOPSY SPECIMEN / Unknown 12/08/2022 9:16 AM TANK PROCESSOR 12/08/2022 2:21 PM [facility] Comment:Pre-op diagnosis: Gastroesophageal reflux disease, unspecified whether esophagitis present [K21.9] S/P bariatric surgery [Z98.84] Raisa Schmidt MD LAB - PATHOLOGY/ CYTOLOGY ORDERABLES Performing Organization Address City/State/[facility] Co de Phone Number [facility] [address] documented in this encounter Visit Diagnoses [...] minutes., Pre-op $ Given 12/08/2022 7:43 AM TANK PROCESSOR 20 mg lactated ringers infusion at 75 mL/hr, Intravenous, PRE-OP CONTINUOUS, Starting on Tue12/08/22 at 0730, Until Tue12/08/22 at 1114 $ New Bag/Syringe 12/08/2022 7:42 AM TANK PROCESSOR 75 mL/hr documented in this encounter Active and Recently Administered Medications Times are shown in TANK PROCESSOR. Scheduled Medication Order 12/06/2022 12/07/2022 12/08/2022 0.9% [...]
--- OUTSIDE RECORDS SUMMARY | 2024-11-04 23:54 | XMS_ITS | Encounter Summary ---
Author Organization [facility] Address [address] [facility] [place] [address] Care Team Providers Care Cut File Clerk Name Role Phone Unavailable Primary Care Provider Unavailabl e Reason for Visit * Reason Onset Date Comments Nutrition Counseling 04/28/2021 Encounter Details Date Type Department Care Team (Late st Contact Info) Description 04/28/2021 Telephone [facility] [address] [place] [phone] Le Carvajal, BARBY/LD Nutrition Counseling Social History Tobacco Use Types Packs/Day Years Used Date Smoking Tobacco: Former Cigarettes Q uit: 06/2020 Smokeless Tobacco: Never Alcohol Use Standard Drinks/Week Comments Not Currently 14 (1 standard drink = 0.6 oz pu re alcohol) Sex and Gender Information Value Date Recorded Sex Assigned at Female 11/25/2020 1:10 PM LAW OFFICE RECEPTIONIST Gender Identity Female 11/25/2020 1:10 PM LAW OFFICE RECEPTIONIST Sexual Orientation Straight 02/02/2021 4: 18 PM [...] 10:00 AM CDT Office Visit [facility] [address] [place] [phone] Vianey Llanes, STUDENT LIFE DEAN-SHOW HORSE DRIVER [address] [place] [address] 03/15/2025 10:30 AM CDT Clinical Support [facility] [address] [place] [phone] documented as of this encounter Visit Diagnoses Not on filedocumented in this encounter
--- OUTSIDE RECORDS SUMMARY | 2024-11-04 23:55 | XMS_ITS | Encounter Summary ---
Author Organization [facility] Address [address] [place] [address] Care Team Providers Care Dependency Program Director Name Role Phone Unavailable Primary Care Provider Unavailabl e Reason for Visit * Auth/Cert Specialty Diagnoses / Procedures Referred By Veronica bonner Referred To Contact Diagnoses Gastroesophageal reflux disease, unspecified whether esophagitis present Gastroesophageal reflux disease, unspecified whether esophagitis present [K21.9] Procedures ESOPHAGOGASTRODUODENOSCOPY (EGD) BIOPSY Referral ID Status Reason Start Date Expiration Date Visits Re quested Visits Authorized [id number] 1 1 Encounter Details Date Type Department Care Team (Latest Contact Info) Description 02/23/2021 1:52 PM CDT - 02/23/2021 2:10 PM CDT Surgery [facility] [address] [place] [address] [place] [id number] [facility] [address] [place] [phone] ESOPHAGOGASTRODUODENOSCOPY WITH BIOPSY Surgery Details Date/Time Status Location OR Service Patient Class Case Class Case Type Trauma Case? 02/23/2021 1:52 PM Posted [facility] OR OR 2 Gastroenterology Surgery [...] Sex Assigned at Female 11/25/2020 1:10 PM PEDIATRIC NURSE Gender Identity Female 11/25/2020 1:10 PM PEDIATRIC NURSE Sexual Orientation Straight 02/02/2021 4: 18 PM [...] 03/04/2021 vitamin D, ergocalciferol, (DRISDOL) 1.25 MG (63200 UT) capsuleIndications:Vi tamin D Deficiency Take 1 capsule by mouth every 7 days Reasons: Vitamin D Deficiency 4 capsule 3 09/17/2020 03/10/2021 documented as of this encounter H&P Notes * Rehan Mendoza MD - 02/23/2021 1:40 PM CDT [facility] [place] [address] . . Date of encounter: 02/05/2021 Provider: Rehan Mendoza MD Patient: Maria Del Carmen Ray CSN: [id number] Specialty: Bariatric Surgery Date of : 1975 [...] you have an unusual work schedule? no [place] Sleepiness Scale total points: 1 Past Medical [...] Gatherings with Friends and Family: ??? Attends Christianity Services: ??? Active Member of Clubs or [...] ??? vitamin D, ergocalciferol, (DRISDOL) 1.25 MG (67729 UT) capsule Take 1 capsule by mouth [...] ??? vitamin D, ergocalciferol, (DRISDOL) 1.25 MG (96561 UT) capsule Take 1 capsule by mouth [...] No palpable visceromegaly. No palpableventral hernias. Skin: Clever and moist. No ulcers, rashes, or lesions. Extremities: Well perfused. No gross joint deformity noted Neurological: Cranial nerves 2-12 were grossly intact. Psychiatric: The patient's mood and affect appeared to be appropriate Labs No results for input(s): WBC, RBC, HGB, HCT, PLTCOUNT in the last 79510 hours. No results for input(s): SODIUM, POTASSIUM, CO2, BUN, CREATININE in the last 14767 hours. Invalid input(s): CLORIDE No results for input(s): GLUCOSE in the last 07715 hours. No results for input(s): AST, ALT in the last 05690 hours. No results for input(s): LDL, HDL, TRIG, TSH in the last 11588 hours. No results for input(s): HGBA1C in the last 75219 hours. No results for input(s): PT, PTT, INR, TSH in the last 88058 hours. No results for input(s): TSH in the last 23122 hours. No results for input(s): IRON in the last 21380 hours. No results for input(s): QYNMZTMF19 in the last 48898 hours. No results for input(s): VITAMINA in the last 97049 hours. No results for input(s): IRON in the last 66537 hours. No results for input(s): VITK1 in the last 24984 hours. No results for input(s): HZNICQGS83GC in the last 98916 hours. No results for input(s): ALPHATOCOPH in the last 30577 hours. No results for input(s): GAMMATOCOPH in the last 23411 hours. No results for input(s): MAGMGDL in the last 56561 hours. No results for input(s): PHOS in the last 36241 hours. Some lab results will be in [...] Role: * Rehan Mendoza MD - Primary COMPUTER AIDED DRAFTER: Analysis Manager: Arlette Menendez, RN Scrub Person: Catherine Gabriel [...] 10:00 AM CDT Office Visit [facility] [address] [place] [phone] Vianey Llanes, NURSING CARE ATTENDANT-CANDY DEPARTMENT MANAGER [address], [place] [phone] 03/15/2025 10:30 AM CDT Clinical Support [facility] [address] [place] [phone] Scheduled Orders Name Type Priority Associated Diagnoses Orde r Schedule EGD GI Routine ONCE for 1 Occ urrences starting 02/23/2021 until 02/23/2021 documented as of this encounter Procedures Procedure Name Priority Date/Time Associated Diagnosis Comments GROSS + MICRO EXAM (ILL) Routine 02/23/2021 4:01 PM CDT Gastroesophageal reflux disease, unspecified whether esophagitis present CA EGD FLEX TRANSORAL W BX SNGL OR MULT 02/23/2021 3:47 PM CDT Gastroesophageal reflux disease, unspecified whether esophagitis present Special Needs ARRIVAL TIME:1230 documented in this encounter Results * GROSS + MICRO EXAM (ILL) (02/23/2021 4:01 PM CDT) Case Report Surgical Pathology Report ? Case: [id number] ? Authorizing Provider: ??Rehan Mendoza MD ?Collected: ? 02/23/2021 04:01 PM ? Ordering Location: ? [facility] ?Received: ?02/24/2021 09:34 AM ? Pathologist: ? Chuckie Lujan MD ? Specimen: ?Pylorus, pylorus biopsy to r/o hpylori ? 02/25/2021 9:22 AM CDT [facility] Final Diagnosis Stomach, pyloric, biopsy: - ANTRAL MUCOSA WITH NON-DIAGNOSTIC ABNORMALITY. - NO HELICOBACTER PYLORI ORGANISMS IDENTIFIED (H&E EXAM). 02/25/2021 9:22 AM [facility] Microscopic Description and Comment Lamina propria smooth muscle proliferation and sparse eosinophils and mononuclear chronic cells are seen. No active gastritis. Microscopic examination is performed and substantiates the above diagnosis. 02/25/2021 9:22 AM [facility] Clinical History Gastroesophageal reflux disease, unspecified whether esophagitis present. Per EMR, pyloric ulcer healed, no gastritis, normal EGD 02/25/2021 9:22 AM [facility] Gross Description Received in formalin labeled Maria Del Carmen Ray and pylorus biopsy are three pink-crow, soft irregular tissue fragments with an aggregate measurement of 0.6 x 0.3 x 0.25 cm, each measuring 0.3 cm in greatest dimension. Submitted in toto in A1. LS/lk 02/25/2021 9:22 AM [facility] Disclaimer The performance characteristics of all immunohistochemical and indirect immunofluorescence stains (if any) cited in this report were determined by the Histopathology Laboratory of [facility]. Some of these tests were developed [...] H&E slides and special stains prepared at [facility], [place]. [address] (CLIA# [id number]) unless otherwise specified. This case was interpreted by the [facility] Department of Pathology. When applicable, select reference laboratory testing is performed at the [facility], [address] [place] [address]. 02/25/2021 9:22 AM [facility] Embedded Images 02/25/2021 9:22 AM [facility] Pathology/Cytology ENTIRE PYLORUS / Unknown 02/23/2021 4:01 PM CDT 02/24/2021 9:34 AM CDT Comment:Pre-op diagnosis: Gastroesophageal reflux disease, unspecified whether esophagitis present [K21.9] Rehan Mendoza MD LAB - PATHOLOGY/CYTO LOGY ORDERABLES [facility] [address] documented in this encounter Visit Diagnoses [...] (Rate Change - Provider: Dima Palacios APRN-MAINTENANCE SPECIALIST) PRN Medication Order 02/21/2021 02/22/2021 02/23/2021 ondansetron (Zofran) injection 4 mg 4 mg, Intravenous, ONCE PRN, Nausea/Vomiting, 1 dose, Starting on Tue02/23/21 at 1624, Until Tue02/23/21 at 1826, First choice, PACU documented in this encounter
--- OUTSIDE RECORDS SUMMARY | 2024-11-04 23:55 | XMS_ITS | Encounter Summary ---
Author Organization [facility] Address [address] [facility] [place] [address] Care Team Providers Care Explosive Ordnance Disposal Technician Name Role Phone Unavailable Primary Care [...] Sex Assigned at Female 11/25/2020 1:10 PM PULP DRIER Gender Identity Female 11/25/2020 1:10 PM PULP DRIER Sexual Orientation Straight 02/02/2021 4: 18 PM [...] Description 03/15/2025 10:00 AM CDT Office Visit [facility] [address] [place] [phone] Vianey Llanes, TAKER DOWN-TAX PREPARER [address] [place], [place] [phone] 03/15/2025 10:30 AM CDT Clinical Support [facility] [address] [place] [address] documented as of this encounter Visit Diagnoses Not on filedocumented in this encounter
--- OUTSIDE RECORDS SUMMARY | 2024-11-04 23:55 | XMS_ITS | Encounter Summary ---
Author Organization [facility] Health Address [address] [place] [address] Care Team Providers Care Director Packaging Name Role Phone Unavailable Primary Care Provider Unavailabl e Reason for Visit * Reason Comments Bariatric Surgery Pre-op Instruction Encounter Details Date Type Department Care Team (Late st Contact Info) Description 03/04/2021 1:00 PM CDT Video Visit [facility] [address] [place] [phone] [place] Mendo[place] [id number] [place] [phone] Morbid obesity (HCC) Social History Tobacco Use Types Packs/Day Years Used Date Smoking Tobacco: Former Cigarettes Q uit: 06/2020 Smokeless Tobacco: Never Alcohol Use Standard Drinks/Week Comments Not Currently 14 (1 standard drink = 0.6 oz pu re alcohol) Sex and Gender Information Value Date Recorded Sex Assigned at Female 11/25/2020 1:10 PM BUSINESS OFFICE REPRESENTATIVE Gender Identity Female 11/25/2020 1:10 PM BUSINESS OFFICE REPRESENTATIVE Sexual Orientation Straight 02/02/2021 4: 18 PM [...] from the original note were not included. [facility] [place] [address] . . Date of encounter: 03/04/2021 Provider: Dr. Rehan Mendoza Patient: Maria Del Carmen Ray CSN: [id number] Specialty: Bariatric Surgery Date of : 1975 [...] you have an unusual work schedule? no [place] Sleepiness Scale total points: 1 Past Medical [...] Gatherings with Friends and Family: ??? Attends Confucianist Services: ??? Active Member of Clubs or [...] Reasons: Gastroesophageal Reflux Disease ??? Probiotic Product (Bioheart) capsule Take 1 (one) capsule by mouth [...] RBC, HGB, HCT, PLTCOUNT in the last 72413 hours. No results for input(s): SODIUM, POTASSIUM, CO2, BUN, CREATININE in the last 66610 hours. Invalid input(s): CLORIDE No results for input(s): GLUCOSE in the last 75788 hours. No results for input(s): AST, ALT in the last 79898 hours. No results for input(s): LDL, HDL, TRIG, TSH in the last 17984 hours. No results for input(s): HGBA1C in the last 18866 hours. No results for input(s): PT, PTT, INR, TSH in the last 92031 hours. No results for input(s): TSH in the last 92149 hours. No results for input(s): IRON in the last 94802 hours. No results for input(s): NCVTPFDT95 in the last 58532 hours. No results for input(s): VITAMINA in the last 59850 hours. No results for input(s): IRON in the last 84971 hours. No results for input(s): VITK1 in the last 88342 hours. No results for input(s): [id number] in the last 76384 hours. No results for input(s): ALPHATOCOPH in the last 45990 hours. No results for input(s): GAMMATOCOPH in the last 19799 hours. No results for input(s): MAGMGDL in the last 49483 hours. No results for input(s): PHOS in the last 99391 hours. Some lab results will be in [...] Laparoscopic Sleeve Gastrectomy Date: 03/09/2021 Place: At [facility]. Patient should qualify for staying more than 2 midnights in hospital. Patient education, risk explained and consent : she meets the criteria as set by the [employer] [place] of [employer] that recommends bariatric surgeryon people [...] diet, andhaving very close follow-up with a fleet manager/dispatch and me. In addition she must continue [...] has attended pre operative education class by it program engagement director and the dietitian, but she will have additional education provided by the it program engagement director and fleet manager/dispatch at [facility]. Because of the significant changes in her eating habits she will have to see a fleet manager/dispatch following surgery. I have informed her that [...] to the billing and collection practices of [facility]. Patient location: Home This encounter was [...] accurate and complete. CC: Rose Marie Norton APRN-COMMERCIAL HORTICULTURE INSTRUCTOR documented in this encounter Plan of Treatment Upcoming Encounters Date Type Department Care Team (Late st Contact Info) Description 03/15/2025 10:00 AM CDT Office Visit [facility] Weight Management Services [address] [place] [phone] Vianey Llanes, BURT-COMMERCIAL HORTICULTURE INSTRUCTOR [address] [place] [address] 03/15/2025 10:30 AM CDT Clinical Support [facility] Weight [facility] Services [address] [place] [address] documented as of this encounter Visit Diagnoses Diagnosis Morbid obesity (HCC)- Primary Morbid obesity documented in this encounter
--- OUTSIDE RECORDS SUMMARY | 2024-11-04 23:55 | XMS_ITS | Encounter Summary ---
Author Organization [facility] Address [address] [place] [address] Care Team Providers Care Ex Chef Name Role Phone Unavailable Primary Care Provider Unavailabl e Reason for Visit * Auth/Cert Specialty Diagnoses / Procedures Referred By Veronica bonner Referred To Contact Diagnoses Morbid obesity (HCC) Morbid obesity [E66.01] Procedures LAPAROSCOPIC GASTRECTOMY (LONGITUDINAL/SLEEVE) Referral ID Status Reason Start Date Expiration Date Visits Re quested Visits Authorized [id number] 1 1 Encounter Details Date Type Department Care Team (Late st Contact Info) Description 03/09/2021 7:33 AM CDT Anesthesia Event [facility] - Eva Op [address] [place] [address] Roverto Novak MD [address] [place] [address] Olivia Cuevas, RECOVERY COLLECTOR-THIRD RAIL INSTALLER [address] [facility] ANESTHESIA [place], [place] [address] Anesthesia Record Procedure Summary Procedure Name Responsible [...] LILIAN SALINAS; Tolerance: Well 03/09/21 0620 by iXmena Dunn RN 03/10/21 1240 by Blaire Rendon [...] by Priya Hurtado RN 03/10/21 191 by [employer], Auto Release documented in this encounter Social History Tobacco Use Types Packs/Day Years Used Date Smoking Tobacco: Former Cigarettes Q uit: 06/2020 Smokeless Tobacco: Never Alcohol Use Standard Drinks/Week Comments Not Currently 14 (1 standard drink = 0.6 oz pu re alcohol) Sex and Gender Information Value Date Recorded Sex Assigned at Female 11/25/2020 1:10 PM REINSTATEMENT CLERK Gender Identity Female 11/25/2020 1:10 PM REINSTATEMENT CLERK Sexual Orientation Straight 02/02/2021 4: 18 [...] Care COMPLICATIONS: No complications documented. * Olivia CuevasBURT-THIRD RAIL INSTALLER - 03/06/2021 7:27 AM CDT ANESTHESIA PREOPERATIVE [...] Tolerance: No Recent Chest Pain: Yes (Saw Home Appraiser Dr Chavarria) Shortness of Breath: No AICD/Pacemaker: No Renal Disease: No Diagnostic Tests: ECG(s) reviewed: Yes Lab(s) reviewed: Yes. Other Findings: Home Appraiser clearance- Recent chest pain was diagnosed as [...] Anesthesia Transfer of Care - David Burger, RECOVERY COLLECTOR-THIRD RAIL INSTALLER - 03/09/2021 9:43 AM CDT ANESTHESIA TRANSFER [...] 629; Orientation: Right; Location: Hand; Placed By: LILIAN SALINAS; Gauge: 20 Gauge; Tolerance: Well 03/09/216[address] [...] 10:00 AM CDT Office Visit [facility] Services [address] [place] [phone] Vianey Llanes APRN-CNP [address] [place] [address] 03/15/2025 10:30 AM CDT Clinical Support [facility] [address] [place] [phone] documented as of this encounter Visit Diagnoses [...] 1 dose, On Tue03/09/21 at 0600, See SiO2 Nanotechedex for renal dosing guidelines. $ Given 03/09/2021 [...]
--- OUTSIDE RECORDS SUMMARY | 2024-11-04 23:55 | XMS_ITS | Encounter Summary ---
Author Organization [facility] Address [address] [facility] [place] [address] Care Team Providers Care Noteman Name Role Phone Unavailable Primary Care Provider Unavailabl e Reason for Visit * Auth/Cert Specialty Diagnoses / Procedures Referred By Veronica bonner Referred To Contact Diagnoses Gastroesophageal reflux disease, unspecified whether esophagitis present Gastroesophageal reflux disease, unspecified whether esophagitis present [K21.9] Procedures ESOPHAGOGASTRODUODENOSCOPY (EGD) BIOPSY Referral ID Status Reason Start Date Expiration Date Visits Re quested Visits Authorized [id number] 1 1 Encounter Details Date Type Department Care Team (Latest Contact Info) Description 02/02/2021 11:16 AM CDT - 02/02/2021 11:35 AM CDT Surgery [facility] - Eva Op [address] [place] [address] [place] [address] [facility] [address] [place] [phone] ESOPHAGOGASTRODUODENOSCOPY WITH BIOPSY Surgery Details Date/Time Status Location OR Service Patient Class Case Class Case Type Trauma Case? 02/02/2021 11:16 AM Posted [facility] OR OR 2 Gastroenterology Surgery [...] Sex Assigned at Female 11/25/2020 1:10 PM PECAN GROWER Gender Identity Female 11/25/2020 1:10 PM PECAN GROWER Sexual Orientation Straight 02/02/2021 4: 18 PM [...] 02/23/2021 vitamin D, ergocalciferol, (DRISDOL) 1.25 MG (01029 UT) capsuleIndications:Vit meza D Deficiency Take 1 [...] Tram Pemberton APRN-CNP - 01/13/2021 7:51 AM PECAN GROWER [facility] Health [place] [address] . . Date of encounter: 01/13/2021 Provider: SANGEETHA Rai Patient: Maria Del Carmen Ray CSN: [id number] Specialty: Bariatric Surgery Date of : 1975 [...] file Gets together: Not on file Attends jew service: Not on file Active member of [...] ??? vitamin D, ergocalciferol, (DRISDOL) 1.25 MG (19624 UT) capsule Take 1 capsule by mouth [...] will submit her information to our insurance producer for review. She verbalized understanding and is agreeable to this plan after shared decision making with patient. SANGEETHA Rai CC: SANGEETHA Kumar N GROWER documented in this encounter OR Notes * Operative - Rehan Mendoza MD - 02/02/2021 11:16 AM CDT EGD OPERATIVE REPORT Pt Name: Maria Del Carmen Ray Date of Service: 02/02/2021 12:32 PM Patient Name: Maria Del Carmen Ray Referring Physician: SANGEETHA Kumar SURGEON: Surgeon(s) and Role: * Rehan Mendoza MD - Primary PRICER BAGGER: Nursery Rn: King Barros RN Scrub Person: Crista Ventura RN; Catherine Gabriel RN Help Start: Khushbu Diaz RN Nursery Rn Orientee: Priya Hurtado RN Pre Procedure Diagnosis: [...] Description 03/15/2025 10:00 AM CDT Office Visit [facility] Services [address] [place] [phone] Vianey Llanes, CASING TIER-SPORTS PHYSICAL THERAPIST [address] [place] [address] 03/15/2025 10:30 AM CDT Clinical Support [facility] [address] [place] [address] Scheduled Orders Name Type Priority Associated Diagnoses Orde r Schedule EGD GI Routine ONCE for 1 Occ urrences starting 02/02/2021 until 02/02/2021 documented as of this encounter Procedures Procedure Name Priority Date/Time Associated Diagnosis Comments GROSS + MICRO EXAM (ILL) Routine 02/02/2021 12:23 PM CDT Gastroesophageal reflux disease, unspecified whether esophagitis present KS EGD FLEX TRANSORAL W BX SNGL OR MULT 02/02/2021 12:13 PM CDT Gastroesophageal reflux disease, unspecified whether esophagitis present Special Needs ARRIVAL TIME: documented in this encounter Results * GROSS + MICRO EXAM (ILL) (02/02/2021 12:23 PM CDT) Case Report Surgical Pathology Report ? Case: [id number] ? Authorizing Provider: ??Rehan Mendoza MD ?Collected: ? 02/02/2021 12:23 PM ? Ordering Location: ? [facility] ?Received: ?02/03/2021 11:15 AM ? Pathologist: ? Chuckie Lujan MD ? Specimens: ?? A) - Duodenal Biopsy, duodenum biopsy ? B) - Biopsy, Pylorus biopsy r/o h pylori ? C) - EG Junction Biopsy , GE junction ? 02/06/2021 2:03 PM CDT [facility] Final Diagnosis A) SMALL INTESTINE, DUODENUM [...] OF INTESTINAL METAPLASIA. 02/06/2021 2:03 PM CDT [facility] Microscopic Description and Comment The gastric mucosal changes are non-specific and appear reactive. Result of immunostain is pending which will be reported in an addendum upon completion of the test. The GEJ biopsy findings are compatible with reflux disease. 02/06/2021 2:03 PM CDT [facility] Clinical History Gastroesophageal reflux disease, unspecified whether esophagitis present Per EMR, endoscopy reported GEjn at 40 cm from incisors, irregular biospy obtained. Small superficial Pyloric ulcer, biopsy obtained Gastritis. No hiatal hernia 02/06/2021 2:03 PM CDT [facility] Gross Description Three specimens are received [...] in C1. LS/scs 02/06/2021 2:03 PM T [facility] Disclaimer The performance characteristics of all immunohistochemical and indirect immunofluorescence stains (if any) cited in this report were determined by the Histopathology Laboratory of [facility]. Some of these tests were developed [...] H&E slides and special stains prepared at [facility], [place]. [address] (CLIA# [id number]) unless otherwise specified. This case was interpreted by the [facility] Department of Pathology. When applicable, select reference laboratory testing is performed at the [facility], [address] [place] [id number]. 02/06/2021 2:03 PM CDT [facility] Addendum 1 Immunostain for H-pylori: NEGATIVE Comment: Immunostain reveals no H-pylori organisms. Positive control is appropriately stained. 02/06/2021 2:03 PM CDT [facility] Addendum electronically signed by Chuckie Lujan MD on 02/06/2021 at 2:03 PM Embedded Images 02/06/2021 2:03 PM CDT [facility] Pathology/Cytology DUODENAL BIOPSY SPECIMEN / Unknown [...] - PATHOLOGY/CYTO LOGY ORDERABLES Performing Organization Address [facility] de Phone Number [facility] [address] documented in this encounter Visit Diagnoses [...]
--- OUTSIDE RECORDS SUMMARY | 2024-11-04 23:55 | XMS_ITS | Encounter Summary ---
Author Organization [facility] Health Address [address] [place] [address] Care Team Providers Care Loom Operator Name Role Phone Unavailable Primary Care Provider Unavailabl e Reason for Visit * Reason Comments Obesity Follow Up Encounter Details Date Type Department Care Team (Late st Contact Info) Description 11/25/2020 1:30 PM PROFILING MACHINE SET UP OPERATOR TOOL Video Visit [facility] [address] [place] [phone] [place]han [place]endoza [place] [id number] [place] [phone] Tram Pemberton, FLOOR SANDER-GAME BREEDING FARM MANAGER [address] [address] Morbid obesity (HCC) ; Body mass index [...] Sex Assigned at Female 11/25/2020 1:10 PM PROFILING MACHINE SET UP OPERATOR TOOL Gender Identity Female 11/25/2020 1:10 PM PROFILING MACHINE SET UP OPERATOR TOOL Sexual Orientation Straight 02/02/2021 4 :18 PM CDT documented as of this encounter Last Filed Vital Signs Vital Sign Reading Time Taken Comments Blood Pressure - - Pulse - - Temperature - - Respiratory Rate - - Oxygen Saturation - - Inhaled Oxygen Concentration - - Weight 109.8 kg (242 lb) 11/25/2020 1:27 PM PROFILING MACHINE SET UP OPERATOR TOOL per pt Height 160 cm (5' 3 ) 11/25/2020 1:27 PM PROFILING MACHINE SET UP OPERATOR TOOL Body Mass Index 42.87 11/25/2020 1:27 PM PROFILING MACHINE SET UP OPERATOR TOOL documented in this encounter Progress Notes * Tram Pemberton APRN-CNP - 11/25/2020 1:35 PM CST Images from the original note were not included. [facility] at [address] [address] . . Date of encounter: 11/25/2020 Provider: SANGEETHA Rai Patient: Maria Del Carmen Ray CSN: [id number] Specialty: Bariatric Surgery Date of : 1975 Today's visit was conducted virtually due to COVID-19 countermeasures. The patient has given verbalconsent to have today's visit conducted by this same means with treatment provided remotely. The patient verbally consents to the billing and collection practices of [facility]. Visit type: Bariatrics Virtual Pre-operative follow [...] you have an unusual work schedule? no [place] Sleepiness Scale total points: 1 No past [...] in Epic SANGEETHA Rai CC: SANGEETHA Kumar ILING MACHINE SET UP OPERATOR TOOL documented in this encounter Plan of Treatment Upcoming Encounters Date Type Department Care Team (Late st Contact Info) Description 03/15/2025 10:00 AM CDT Office Visit [facility] [address] [place] [phone] Vianey Llanes, BURT-GAME BREEDING FARM MANAGER [address] [place], [place] [address] 03/15/2025 10:30 AM CDT Clinical Support [facility] [address] [place] [address] documented as of this encounter Visit Diagnoses [...]
--- OUTSIDE RECORDS SUMMARY | 2024-11-04 23:55 | XMS_ITS | Encounter Summary ---
Author Organization [facility] Health Address [address] [place] [address] Care Team Providers Care Psychometric Examiner Name Role Phone Unavailable Primary Care Provider Unavailabl e Reason for Visit * Reason Onset Date Comments Question 02/16/2021 Encounter Details Date Type Department Care Team (Late st Contact Info) Description 02/16/2021 Telephone [facility] Management Services [address] [place] [phone] Rehan Mendoza MD [address] [place] [phone] Question Social History Tobacco Use Types Packs/Day Years Used Date Smoking Tobacco: Former Cigarettes Q uit: 06/2020 Smokeless Tobacco: Never Alcohol Use Standard Drinks/Week Comments Yes 14 (1 standard drink = 0.6 oz pu re alcohol) Sex and Gender Information Value Date Recorded Sex Assigned at Female 11/25/2020 1:10 PM AMBULANCE PARAMEDIC Gender Identity Female 11/25/2020 1:10 PM AMBULANCE PARAMEDIC Sexual Orientation Straight 02/02/2021 4: 18 PM [...] CDT Patient states all is good with Telephone Operator and they will be sending us a new clearance. * Telephone Encounter - Cris Budny LPN - 02/18/2021 10:03 AM CDT Patient has appt with Telephone Operator today and she will ask for a [...] discomfort and is going to call her Telephone Operator who gave her clearance for surgery to see if they want to do something. She is scheduled for her EGD on 02/23/21 and does not want to have to reschedule her procedure. documented in this encounter Plan of Treatment Upcoming Encounters Date Type Department Care Team (Late st Contact Info) Description 03/15/2025 10:00 AM CDT Office Visit [facility] Weight Management Services [address] [place] [phone] Vianey Llanes, CLIP BOLTER AND WRAPPER-CHAINSTITCH FELLED SEAM OPERATOR [address] [place] [address] 03/15/2025 10:30 AM CDT Clinical Support [facility] Management Services [address] [place] [address] documented as of this encounter Visit Diagnoses Not on filedocumented in this encounter
--- OUTSIDE RECORDS SUMMARY | 2024-11-04 23:55 | XMS_ITS | Encounter Summary ---
Author Organization [facility] Address [address] [facility] [place] [address] Care Team Providers Care Planer Setup Operator Name Role Phone Unavailable Primary Care [...] Sex Assigned at Female 11/25/2020 1:10 PM APPRAISER LAND Gender Identity Female 11/25/2020 1:10 PM APPRAISER LAND Sexual Orientation Straight 02/02/2021 4: 18 PM [...] Description 03/15/2025 10:00 AM CDT Office Visit [facility] Health Weight Management Services [address] [place] [phone] Vianey Llanes, FIELD CROP GROWER-WOOD AND HARDWARE OUTFITTER [address] [place], [place] [phone] 03/15/2025 10:30 AM CDT Clinical Support [facility] Weight Management Services [address] [place] [address] documented as of this encounter Visit Diagnoses Not on filedocumented in this encounter Additional Health Concerns Infection Onset Date Last Indicated Resolved Time COVID-19 Under Investigation 02/20/2021 02/20/2021 02/21/2021 10:47 AM CDT documented as of this encounter
--- OUTSIDE RECORDS SUMMARY | 2024-11-04 23:55 | XMS_ITS | Encounter Summary ---
Author Organization [facility] Address [address] [place] [address] Care Team Providers Care Jazz Singer Name Role Phone Unavailable Primary Care Provider Unavailabl e Encounter Details Date Type Department Care Team (Late st Contact Info) Description 03/02/2021 10:00 AM CDT Video Visit [facility] Weight Management Services [address] [place] [address] Rehan Mendoza MD [address] [place] [phone] Body mass index (BMI) of 40.0-44.9 in adult (HCC) ; Morbid obesity (HCC) Social History Tobacco Use Types Packs/Day Years Used Date Smoking Tobacco: Former Cigarettes Q uit: 06/2020 Smokeless Tobacco: Never Alcohol Use Standard Drinks/Week Comments Yes 14 (1 standard drink = 0.6 oz pu re alcohol) Sex and Gender Information Value Date Recorded Sex Assigned at Female 11/25/2020 1:10 PM ASSISTANT GROCERY Gender Identity Female 11/25/2020 1:10 PM ASSISTANT GROCERY Sexual Orientation Straight 02/02/2021 4: 18 PM [...] to the billing and collection practices of [facility]. Patient location: Home This encounter was performed [...] okay You will be a pt of [facility] Health [facility] for how long? Life Is physical activity after surgery optional or required? Required How often? Ideally 5x/week for 30 minutes/x Total MNT minutes this calendar year: [id number] documented in this encounter Plan of Treatment Upcoming Encounters Date Type Department Care Team (Late st Contact Info) Description 03/15/2025 10:00 AM CDT Office Visit [facility] Health Weight Management Services [address] [place] [address] Vianey Llanes, VAC PRESS OPERATOR-MEDIA MANAGER [address] [place] [place], [place] [phone] 03/15/2025 10:30 AM CDT Clinical Support [facility] Weight Management Services [address] [place] [phone] documented as of this encounter Visit Diagnoses Diagnosis Body mass index (BMI) of 40.0-44.9 in adult (HCC)- Primary Body Mass Index 40.0-44.9, adult Morbid obesity (HCC) Morbid obesity documented in this encounter
--- OUTSIDE RECORDS SUMMARY | 2024-11-04 23:55 | XMS_ITS | Encounter Summary ---
Author Organization [facility] Address [address] [place] [address] Care Team Providers Care Grounds Cleaner Name Role Phone Unavailable Primary Care Provider Unavailabl e Reason for Visit * Reason Comments Bariatric Surgery Follow-up Encounter Details Date Type Department Care Team (Late st Contact Info) Description 10/21/2020 10:00 AM MARBLE CLEANER Video Visit [facility] [address] [place] [phone] Rehan Mendoza MD [address] [place] [phone] Tram Pemberton, AUTOMOTIVE WELDER-HEAD CAGER [address] [address] Morbid obesity (HCC) ; Body mass index [...] Sex Assigned at Female 11/25/2020 1:10 PM MARBLE CLEANER Gender Identity Female 11/25/2020 1:10 PM MARBLE CLEANER Sexual Orientation Straight 02/02/2021 4: 18 PM CDT documented as of this encounter Last Filed Vital Signs Vital Sign Reading Time Taken Comments Blood Pressure - - Pulse - - Temperature - - Respiratory Rate - - Oxygen Saturation - - Inhaled Oxygen Concentration - - Weight 111.1 kg (245 lb) 10/21/2020 9:49 AM MARBLE CLEANER per pt Height 160 cm (5' 3 ) 10/21/2020 9:49 AM MARBLE CLEANER Body Mass Index 43.4 10/21/2020 9:49 AM MARBLE CLEANER documented in this encounter Progress Notes * Tram Pemberton APRN-CNP - 10/21/2020 8:08 AM CST Images from the original note were not included. [facility] at [place] [id number] . . Date of encounter: 10/21/2020 Provider: SANGEETHA Rai Patient: Maria Del Carmen Ray CSN: [id number] Specialty: Bariatric Surgery Date of : 1975 Today's visit was conducted virtually due to COVID-19 countermeasures. The patient has given verbalconsent to have today's visit conducted by this same means with treatment provided remotely. The patient verbally consents to the billing and collection practices of [facility]. Visit type: Bariatrics [...] you have an unusual work schedule? no [place] Sleepiness Scale total points: 1 No past [...] file Gets together: Not on file Attends judaism service: Not on file Active member of [...] ??? vitamin D, ergocalciferol, (DRISDOL) 1.25 MG (11300 UT) capsule Take 1 capsule by mouth [...] in Epic SANGEETHA Rai CC: SANGEETHA Kumar LE CLEANER documented in this encounter Plan of Treatment Upcoming Encounters Date Type Department Care Team (Late st Contact Info) Description 03/15/2025 10:00 AM CDT Office Visit [facility] [address] [place] [phone] Vianey Llanes APRN-HEAD CAGER [address] [place] [address] 03/15/2025 10:30 AM CDT Clinical Support [facility] [address] [place] [phone] documented as of this encounter Visit Diagnoses [...]
--- OUTSIDE RECORDS SUMMARY | 2024-11-04 23:55 | XMS_ITS | Encounter Summary ---
Author Organization [facility] Address [address] [place] [address] Care Team Providers Care Line Service Attendant Name Role Phone Unavailable Primary Care Provider Unavailabl e Reason for Visit * Reason Onset Date Comments Order 01/02/2021 Encounter Details Date Type Department Care Team (Late st Contact Info) Description 01/02/2021 Telephone [facility] [address] [place] [phone] Rehan Mendoza MD [address] [place] [phone] Order Social History Tobacco Use Types Packs/Day Years Used Date Smoking Tobacco: Former Cigarettes Q uit: 06/2020 Smokeless Tobacco: Never Alcohol Use Standard Drinks/Week Comments Yes 0 (1 standard drink = 0.6 oz pur e alcohol) OCC. Sex and Gender Information Value Date Recorded Sex Assigned at Female 11/25/2020 1:10 PM CATALYTIC CONVERTER OPERATOR HELPER Gender Identity Female 11/25/2020 1:10 PM CATALYTIC CONVERTER OPERATOR HELPER Sexual Orientation Straight 02/02/2021 4: 18 PM CDT documented as of this encounter Miscellaneous Notes * Telephone Encounter - Lesley Harkins LPN - 01/02/2021 2:10 PM CATALYTIC CONVERTER OPERATOR HELPER Pre op COVID test ordered. LYTIC CONVERTER OPERATOR HELPER * Telephone Encounter - Naila You - 01/02/2021 1:37 PM CST EGD scheduled 02/02/21 Please enter COVID order Instructions sent through [facility] LYTIC CONVERTER OPERATOR HELPER documented in this encounter Plan of Treatment Upcoming Encounters Date Type Department Care Team (Late st Contact Info) Description 03/15/2025 10:00 AM CDT Office Visit [facility] [address] [place] [phone] Vianey Llanes, DECK ENGINE OPERATOR-PRICING SUPERVISOR [address], [place] [phone] 03/15/2025 10:30 AM CDT Clinical Support [facility] [address] [place] [phone] documented as of this encounter Visit Diagnoses Diagnosis Pre-op exam- Primary Preoperative examination, unspecified documented in this encounter
--- OUTSIDE RECORDS SUMMARY | 2024-11-04 23:55 | XMS_ITS | Encounter Summary ---
Author Organization [facility] Address [address] [place] [address] Care Team Providers Care Floorman Name Role Phone Unavailable Primary Care Provider Unavailabl e Reason for Visit * Reason Onset Date Comments General 02/04/2021 Encounter Details Date Type Department Care Team (Late st Contact Info) Description 02/04/2021 Telephone [facility] [address] [place] [phone] Rehan Mendoza MD [address] [place] [phone] General Social History Tobacco Use Types Packs/Day Years Used Date Smoking Tobacco: Former Cigarettes Q uit: 06/2020 Smokeless Tobacco: Never Alcohol Use Standard Drinks/Week Comments Yes 14 (1 standard drink = 0.6 oz pu re alcohol) Sex and Gender Information Value Date Recorded Sex Assigned at Female 11/25/2020 1:10 PM BUSINESS TRAVEL CONSULTANT Gender Identity Female 11/25/2020 1:10 PM BUSINESS TRAVEL CONSULTANT Sexual Orientation Straight 02/02/2021 4: 18 [...] Discussed with pt that insurance requirements for [place] include the need for repeat EGD. Their [...] [facility] [address] [place] [phone] Vianey Llanes, HAND STRIPPER-RACKING TECHNICIAN [address] [place] [address] 03/15/2025 10:30 AM CDT Clinical Support [facility] [address] [place] [phone] documented as of this encounter Visit Diagnoses Not on filedocumented in this encounter
--- OUTSIDE RECORDS SUMMARY | 2024-11-04 23:55 | XMS_ITS | Encounter Summary ---
Author Organization [facility] Address [address] [place] [address] Care Team Providers Care [employer] Unified Communications Engineer Name Role Phone Unavailable Primary Care Provider Unavailabl e Reason for Visit * Auth/Cert Specialty Diagnoses / Procedures Referred By Veronica bonner Referred To Contact Diagnoses Morbid obesity (HCC) Morbid obesity [E66.01] Procedures LAPAROSCOPIC GASTRECTOMY (LONGITUDINAL/SLEEVE) Referral ID Status Reason Start Date Expiration Date Visits Re quested Visits Authorized [id number] 1 1 Encounter Details Date Type Department Care Team (Late st Contact Info) Description 03/09/2021 5:33 AM CDT - 03/10/2021 1:06 PM CDT Hospital Encounter [address] [address] Rehan Mendoza MD [address] [place] [id number] Surgery General Discharge Disposition: Home or Self Care Social History Tobacco Use Types Packs/Day Years Used Date Smoking Tobacco: Former Cigarettes Q uit: 06/2020 Smokeless Tobacco: Never Alcohol Use Standard Drinks/Week Comments Not Currently 14 (1 standard drink = 0.6 oz pu re alcohol) Sex and Gender Information Value Date Recorded Sex Assigned at Female 11/25/2020 1:10 PM BANK COURIER Gender Identity Female 11/25/2020 1:10 PM BANK COURIER Sexual Orientation Straight 02/02/2021 4: 18 PM [...] PRIMARY CARE PHYSICIAN : Rose Marie Norton APRN-RETAIL CLIENT SOLUTIONS ANALYST ADMISSION DIAGNOSIS: Refractory morbid obesity with BMI [...] blood sugar management. Pain management : D/C SEDIMENT REMEDIATION CONSULTANT, start PO. Respiratory management: Aggressive I/S, Resp [...] pain. Max of 6 tabs in 24hrs. [facility] capsule Take 1 (one) capsule by mouth once daily ursodiol 300 MG capsule Commonly known as: Actigall Take 1 (one) capsule by mouth 2 times daily for 90 days Do Not start until 1 week post op. Reasons:Post op laproscopic sleeve gastrectomy STOP taking these medications scopolamine 1 MG patch Commonly known as: Transderm-Scop vitamin D (ergocalciferol) 1.25 MG (65480 UT) capsule Commonly known as: Drisdol CONDITION ON DISCHARGE: Stable. CC: Rose Marie Norton APRN-RETAIL CLIENT SOLUTIONS ANALYST documented in this encounter Medications at Time [...] 24hrs. 12 tablet 02/27/2021 04/10/2021 Probiotic Product (Dime) capsuleIndications: Bariatric surgery status Take 1 (one) [...] 8:25 AM CDT Pt screened by the sr. merchandise planner via record review. BNA score is [...] original note were not included. [facility] [place] [address] . . Date of encounter: 03/04/2021 Provider: Dr. Rehan Mendoza Patient: Maria Del Carmen Ray [facility]: [id number] Specialty: Bariatric Surgery Date of : 1975 [...] you have an unusual work schedule? no Cornucopia Sleepiness Scale total points: 1 Past Medical [...] Gatherings with Friends and Family: ??? Attends Mandaeism Services: ??? Active Member of Clubs or [...] Reasons: Gastroesophageal Reflux Disease ??? Probiotic Product (Dime) capsule Take 1 (one) capsule by mouth [...] RBC, HGB, HCT, PLTCOUNT in the last 50122 hours. No results for input(s): SODIUM, POTASSIUM, CO2, BUN, CREATININE in the last 44885 hours. Invalid input(s): CLORIDE No results for input(s): GLUCOSE in the last 99114 hours. No results for input(s): AST, ALT in the last 36615 hours. No results for input(s): LDL, HDL, TRIG, TSH in the last 05079 hours. No results for input(s): HGBA1C in the last 42562 hours. No results for input(s): PT, PTT, INR, TSH in the last 21235 hours. No results for input(s): TSH in the last 45282 hours. No results for input(s): IRON in the last 01928 hours. No results for input(s): UIPTLMDX11 in the last 39388 hours. No results for input(s): VITAMINA in the last 20166 hours. No results for input(s): IRON in the last 30031 hours. No results for input(s): VITK1 in the last 44516 hours. No results for input(s): MODEQVHX12LE in the last 40823 hours. No results for input(s): ALPHATOCOPH in the last 44547 hours. No results for input(s): GAMMATOCOPH in the last 92877 hours. No results for input(s): MAGMGDL in the last 36485 hours. No results for input(s): PHOS in the last 88471 hours. Some lab results will be in [...] Laparoscopic Sleeve Gastrectomy Date: 03/09/2021 Place: At [facility]. Patient should qualify for staying more than 2 midnights in hospital. Patient education, risk explained and consent : she meets the criteria as set by the National [place] of [employer] that recommends bariatric surgeryon people [...] diet, andhaving very close follow-up with a public affairs officer and me. In addition she must continue [...] has attended pre operative education class by program development specialist and the dietitian, but she will have additional education provided by the program development specialist and public affairs officer at [facility] Because of the significant changes in her eating habits she will have to see a public affairs officer following surgery. I have informed her that [...] to the billing and collection practices of [facility]. Patient location: Home This encounter [...] 24hrs. 12 tablet 0 ??? Probiotic Product (Dime) capsule Take 1 (one) capsule by mouth [...] ??? vitamin D, ergocalciferol, (DRISDOL) 1.25 MG (70705 UT) capsule Take 1 capsule by mouth [...] HDL, LDLCALC, VLDL, CHOLHDLRATIO in the last 31037 hours. No results for input(s): TSH, B8GNERN, T4FREE, H0PAFDM in the last 53684 hours. No results for input(s): AMYLASE, LIPASE, FERRITIN, IRON in the last 71014 hours. Invalid input(s): SATURATION ASSESSMENT AND PLAN [...] Role: * Rehan Mendoza MD - Primary CRYSTALLOGRAPHER: Registered Nurse Mold Sprayer: Crista Ventura RN Scrub Person: Gudelia Vance LPN Office Messenger Orientee: Priya Hurtado RN PREOPERATIVE DIAGNOSIS: Refractory [...] area of the pylorus. The balloon measured 32-Faroese in diameter to act as a stentfor [...] [facility] [address] [place] [phone] Vianey Llanes, MOTOR BOSS-RETAIL CLIENT SOLUTIONS ANALYST [address] [place] [address] 03/15/2025 10:30 AM CDT Clinical Support [facility] [address] [place] [phone] documented as of this encounter Procedures Procedure [...] 03/09/2021 9:05 AM CDT Morbid obesity (HCC) [place] LAP SLEEVE GASTRECTOMY 03/09/2021 7:34 AM CDT [...] - 125 mg/dL 03/10/2021 11:45 AM CDT [facility] Specimen Type Arterial/C apillary 03/10/2021 11:45 AM CDT [facility] Blood BLOOD SPECIMEN / Unknown 03/10/2021 11:41 AM CDT 03/10/2021 11:45 AM CDT Rehan Mendoza MD LAB - POINT OF CARE ORDERABLES Performing Organization Address City/[facility] Co de Phone Number [facility] [address] * GLUCOSE - POINT OF CARE (03/10/2021 9:16 AM CDT) Glucose WB/POC 106 70 - 125 mg/dL 03/10/2021 9:17 AM CDT [facility] Specimen Type Arterial/C apillary 03/10/2021 9:17 AM CDT [facility] Blood BLOOD SPECIMEN / Unknown 03/10/2021 9:16 AM CDT 03/10/2021 9:17 AM CDT Rehan Mendoza MD LAB - POINT OF CARE ORDERABLES Performing Organization Address City/[facility]/ZIP Co de Phone Number [facility] [address] * GLUCOSE - POINT OF CARE (03/10/2021 4:37 AM CDT) [facility] Glucose WB/POC 84 70 - 125 mg/dL 03/10/2021 4:44 AM CDT [facility] Specimen Type Arterial/C apillary 03/10/2021 4:44 AM CDT [facility] Blood BLOOD SPECIMEN / Unknown 03/10/2021 4:37 AM CDT 03/10/2021 4:44 AM CDT Rehan Mendoza MD LAB - POINT OF CARE ORDERABLES Performing Organization Address City/[facility] Co de Phone Number [facility] [address] * PHOSPHORUS BLOOD (03/10/2021 4:13 AM CDT) [facility] Phosphorus 2.5 2.3 - 4.7 mg/dL 03/10/2021 4:58 AM CDT [facility] Blood BLOOD SPECIMEN / Unknown Lab Venipuncture / Unknown 03/10/2021 4:13 AM CDT 03/10/2021 4:33 AM CDT Rehan Mendoza MD LAB - CHEMISTRY KARLEE AVINA Performing Organization Address [facility] Co de Phone Number [facility] [address] [place] [address] * MAGNESIUM BLOOD (03/10/2021 4:13 AM CDT) [facility] Magnesium 2.1 1.6 - 2.6 mg/dL 03/10/2021 4:58 AM CDT [facility] Blood BLOOD SPECIMEN / Unknown Lab Venipuncture / Unknown 03/10/2021 4:13 AM CDT 03/10/2021 4:33 AM CDT Rehan Mendoza MD LAB - CHEMISTRY KARLEE AVINA Performing Organization Address [facility] Co de Phone Number [facility] [address] [place] [address] * (ABNORMAL) COMPREHENSIVE METABOLIC PANEL (03/10/2021 4:13 AM CDT) Glucose 101 70 - 125 mg/dL 03/10/2021 4:57 AM [facility] Sodium 139 136 - 145 mmol/L 03/10/2021 4:57 AM [facility] Potassium 3.5 3.4 - 4.5 mmol/L 03/10/2021 4:57 AM [facility] Chloride 106 98 - 107 mmol/L 03/10/2021 4:57 AM [facility] CO2 22 22 - 29 mmol/L 03/10/2021 4:57 AM [facility] Calcium 8.7 8.4 - 10.2 mg/dL 03/10/2021 4:57 AM [facility] Anion Gap 15 10 - 20 mmol/L 03/10/2021 4:57 AM [facility] BUN 8.7(L) 9.8 - 20.1 mg/dL 03/10/2021 4:57 AM [facility] Creatinine 0.91 0.57 - 1.11 mg/dL 03/10/2021 4:57 AM [facility] eGFR by MDRD >60 >60 mL/min/1.7 3m2 03/10/2021 4:57 AM [facility] eGFR by MDRD >60 >60 mL/min/1.7 3m2 03/10/2021 4:57 AM [facility] Alkaline Phosphatase 47 40 - 150 U/L 03/10/2021 4:57 AM [facility] ALT 54 5 - 55 U/L 03/10/2021 4:57 AM [facility] AST 52(H) 5 - 34 U/L 03/10/2021 4:57 AM [facility] Protein Total 6.2(L) 6.4 - 8.3 gm/dL 03/10/2021 4:57 AM [facility] Albumin 3.4(L) 3.5 - 5.0 gm/dL 03/10/2021 4:57 AM [facility] Globulin Total 2.8 2.6 - 4.0 gm/dL 03/10/2021 4:57 AM [facility] Albumin/Globulin Ratio 1.2 0.9 - 1.6 03/10/2021 4:57 AM [facility] Bilirubin Total 0.6 0.2 - 1.2 mg/dL 03/10/2021 4:57 AM CDT [facility] Blood BLOOD SPECIMEN / Unknown Lab Venipuncture / Unknown 03/10/2021 4:13 AM CDT 03/10/2021 4:33 AM CDT Rehan Mendoza MD LAB - CHEMISTRY [facility] Organization Address City/State/[facility] Co de Phone Number [facility] [address] * (ABNORMAL) CBC W AUTO DIFFERENTIAL (03/10/2021 4:13 AM CDT) WBC 10.7(H) 4.0 - 10.0 x10E9/L 03/10/2021 4:37 AM CDT [facility] RBC 4.37 3.93 - 5.22 x10E12/L 03/10/2021 4:37 AM T [facility] Hemoglobin 13.3 11.2 - 15.7 gm/dL 03/10/2021 4:37 AM T [facility] Hematocrit 39.7 34.1 - 44.9 % 03/10/2021 4:37 AM T [facility] MCV 90.8 78.0 - 100.0 fl 03/10/2021 4:37 AM CDT [facility] MCH 30.4 25.6 - 34.0 pg 03/10/2021 4:37 AM CDT [facility] MCHC 33.5 32.3 - 36.5 gm/dL 03/10/2021 4:37 AM T [facility] RDW 13.3 11.6 - 14.4 % 03/10/2021 4:37 AM CDT [facility] MPV 10.1 9.4 - 12.4 fl 03/10/2021 4:37 AM CDT [facility] Platelet Count 243 163 - 369 x10E9/L 03/10/2021 4:37 AM CDT [facility] Neutrophils % 74.0 40.0 - 75.0 % 03/10/2021 4:37 AM CDT [facility] Lymphocytes % 19.2(L) 19.3 - 53.1 % 03/10/2021 4:37 AM CDT [facility] Monocytes % 6.6 4.7 - 12.5 % 03/10/2021 4:37 AM CDT [facility] Eosinophils % 0.0(L) 0.7 - 7.0 % 03/10/2021 4:37 AM CDT [facility] Basophils % 0.1 0.1 - 1.2 % 03/10/2021 4:37 AM CDT [facility] Immature Granulocytes 0.1 0 - 0.5 % 03/10/2021 4:37 AM T [facility] Neutrophil Absolute 7.88(H) 1.56 - 6.13 x10E9/L 03/10/2021 4:37 AM CDT [facility] Lymphocytes Absolute 2.05 1.18 - 3.74 x10E9/L 03/10/2021 4:37 AM CDT [facility] Monocytes Absolute 0.70 0.24 - 0.86 x10E9/L 03/10/2021 4:37 AM CDT [facility] Eosinophils Absolute 0.00(L) 0.04 - 0.54 x10E9/L 03/10/2021 4:37 AM T [facility] Basophils Absolute 0.01 0.01 - 0.08 x10E9/L 03/10/2021 4:37 AM T [facility] Immature Granulocytes Absolute 0.01 0 - 0.03 x10E9/L 03/10/2021 4:37 AM CDT [facility] nRBC Auto 0 <=0 /100 WBC 03/10/2021 4:37 AM CDT [facility] nRBC Absolute 0.00 <=0 x10E9/L 03/10/2021 4:37 AM T [facility] Blood BLOOD SPECIMEN / Unknown Lab Venipuncture / Unknown 03/10/2021 4:13 AM CDT 03/10/2021 4:33 AM CDT Rehan Mendoza MD LAB - HEMATOLOGY ORD ERABLES Performing Organization Address City/State/[facility] Co de Phone Number [facility] [address] * GLUCOSE - POINT OF CARE (03/10/2021 12:42 AM CDT) Pathologist [facility] Glucose WB/POC 79 70 - 125 mg/dL 03/10/2021 12:49 AM T [facility] Specimen Type Arterial/C apillary 03/10/2021 12:49 AM CDT [facility] Blood BLOOD SPECIMEN / Unknown 03/10/2021 12:42 AM CDT 03/10/2021 12:49 AM CDT Rehan Mendoza MD LAB - POINT OF CARE ORDERABLES Performing Organization Address [facility]/ZIP Co de Phone Number [facility] [address] * GLUCOSE - POINT OF CARE (03/09/2021 8:50 PM CDT) Glucose WB/POC 86 70 - 125 mg/dL 03/09/2021 9:04 PM CDT [facility] Specimen Type Arterial/C apillary 03/09/2021 9:04 PM CDT [facility] Blood BLOOD SPECIMEN / Unknown 03/09/2021 8:50 PM CDT 03/09/2021 9:04 PM CDT Rehan Mendzoa MD LAB - POINT OF CARE ORDERABLES Performing Organization Address [facility] Co de Phone Number [facility] [address] [place] [address] * MAGNESIUM BLOOD (03/09/2021 7:52 PM CDT) Magnesium 2.4 1.6 - 2.6 mg/dL 03/09/2021 8:16 PM CDT [facility] Blood BLOOD SPECIMEN / Unknown Lab Venipuncture / Unknown 03/09/2021 7:52 PM CDT 03/09/2021 7:56 PM CDT Rehan Mendoza MD LAB - CHEMISTRY ORDE FABRICE Performing Organization Address City/[facility] Co de Phone Number [facility] [address] * GLUCOSE - POINT OF CARE (03/09/2021 4:20 PM CDT) Glucose WB/POC 98 70 - 125 mg/dL 03/09/2021 4:30 PM CDT [facility] Specimen Type Arterial/C apillary 03/09/2021 4:30 PM CDT [facility] Blood BLOOD SPECIMEN / Unknown 03/09/2021 4:20 PM CDT 03/09/2021 4:29 PM CDT Rehan Mendoza MD LAB - POINT OF CARE ORDERABLES Performing Organization Address City/[facility]/ZIP Co de Phone Number [facility] [address] * GLUCOSE - POINT OF CARE (03/09/2021 12:43 PM CDT) Glucose WB/POC 103 70 - 125 mg/dL 03/09/2021 12:44 PM CDT [facility] Specimen Type Arterial/C apillary 03/09/2021 12:44 PM CDT [facility] Blood BLOOD SPECIMEN / Unknown 03/09/2021 12:43 PM CDT 03/09/2021 12:44 PM CDT Rehan Mendoza MD LAB - POINT OF CARE ORDERABLES Performing Organization Address [facility] Co de Phone Number [facility] [address] [place] [address] * (ABNORMAL) GLUCOSE - POINT OF CARE (03/09/2021 11:54 AM CDT) Glucose WB/POC 66(L) 70 - 125 mg/dL 03/09/2021 12:07 PM CDT [facility] Specimen Type Arterial/C apillary 03/09/2021 12:07 PM CDT [facility] Blood BLOOD SPECIMEN / Unknown 03/09/2021 11:54 AM CDT 03/09/2021 12:07 PM CDT Rehan Mendoza MD LAB - POINT OF CARE ORDERABLES Performing Organization Address City/[facility]/ZIP Co de Phone Number [facility] [address] [place] [address] * PHOSPHORUS BLOOD (03/09/2021 10:05 AM CDT) Phosphorus 3.8 2.3 - 4.7 mg/dL 03/09/2021 10:43 AM CDT [facility] Blood BLOOD SPECIMEN / Unknown Lab Venipuncture / Unknown 03/09/2021 10:05 AM CDT 03/09/2021 10:18 AM CDT Rehan Mendoza MD LAB - CHEMISTRY ORDEfren AVINA Performing Organization Address [facility] de Phone Number [facility] [address] * (ABNORMAL) MAGNESIUM BLOOD (03/09/2021 10:05 AM CDT) Magnesium 1.5(L) 1.6 - 2.6 mg/dL 03/09/2021 10:43 AM CDT [facility] Blood BLOOD SPECIMEN / Unknown Lab Venipuncture / Unknown 03/09/2021 10:05 AM CDT 03/09/2021 10:18 AM CDT Rehan Mendoza MD LAB - CHEMISTRY ORDEfren AVINA Performing Organization Address [facility] de Phone Number [facility] [address] [place] [address] * (ABNORMAL) COMPREHENSIVE METABOLIC PANEL (03/09/2021 10:05 AM CDT) Glucose 107 70 - 125 mg/dL 03/09/2021 10:43 AM CDT [facility] Sodium 139 136 - 145 mmol/L 03/09/2021 10:43 AM CDT [facility] Potassium 3.8 3.4 - 4.5 mmol/L 03/09/2021 10:43 AM CDT [facility] Chloride 107 98 - 107 mmol/L 03/09/2021 10:43 AM CDT [facility] CO2 22 22 - 29 mmol/L 03/09/2021 10:43 AM CDT [facility] Calcium 8.3(L) 8.4 - 10.2 mg/dL 03/09/2021 10:43 AM CDT [facility] Anion Gap 14 10 - 20 mmol/L 03/09/2021 10:43 AM CDT [facility] BUN 11.7 9.8 - 20.1 mg/dL 03/09/2021 10:43 AM CDT [facility] Creatinine 0.96 0.57 - 1.11 mg/dL 03/09/2021 10:43 AM T [facility] eGFR by MDRD >60 >60 mL/min/1.7 3m2 03/09/2021 10:43 AM CDT [facility] eGFR by MDRD >60 >60 mL/min/1.7 3m2 03/09/2021 10:43 AM CDT [facility] Alkaline Phosphatase 45 40 - 150 U/L 03/09/2021 10:43 AM T [facility] ALT 50 5 - 55 U/L 03/09/2021 10:43 AM T [facility] AST 42(H) 5 - 34 U/L 03/09/2021 10:43 AM T [facility] Protein Total 5.9(L) 6.4 - 8.3 gm/dL 03/09/2021 10:43 AM T [facility] Albumin 3.4(L) 3.5 - 5.0 gm/dL 03/09/2021 10:43 AM T [facility] Globulin Total 2.5(L) 2.6 - 4.0 gm/dL 03/09/2021 10:43 AM T [facility] Albumin/Globulin Ratio 1.4 0.9 - 1.6 03/09/2021 10:43 AM T [facility] Bilirubin Total 0.6 0.2 - 1.2 mg/dL 03/09/2021 10:43 AM T [facility] Blood BLOOD SPECIMEN / Unknown Lab Venipuncture / Unknown 03/09/2021 10:05 AM CDT 03/09/2021 10:18 AM CDT Rehan Mendoza MD LAB - CHEMISTRY KARLEE [facility] Organization Address City/State/[facility] Co de Phone Number [facility] [address] * (ABNORMAL) CBC W AUTO DIFFERENTIAL (03/09/2021 10:05 AM CDT) [facility] WBC 9.7 4.0 - 10.0 x10E9/L 03/09/2021 10:22 AM T [facility] RBC 4.19 3.93 - 5.22 x10E12/L 03/09/2021 10:22 AM [facility] Hemoglobin 12.9 11.2 - 15.7 gm/dL 03/09/2021 10:22 AM [facility] Hematocrit 38.6 34.1 - 44.9 % 03/09/2021 10:22 AM [facility] MCV 92.1 78.0 - 100.0 fl 03/09/2021 10:22 AM [facility] MCH 30.8 25.6 - 34.0 pg 03/09/2021 10:22 AM [facility] MCHC 33.4 32.3 - 36.5 gm/dL 03/09/2021 10:22 AM [facility] RDW 13.6 11.6 - 14.4 % 03/09/2021 10:22 AM [facility] MPV 10.0 9.4 - 12.4 fl 03/09/2021 10:22 AM [facility] Platelet Count 220 163 - 369 x10E9/L 03/09/2021 10:22 AM [facility] Neutrophils % 85.4(H) 40.0 - 75.0 % 03/09/2021 10:22 AM [facility] Lymphocytes % 11.8(L) 19.3 - 53.1 % 03/09/2021 10:22 AM [facility] Monocytes % 2.4(L) 4.7 - 12.5 % 03/09/2021 10:22 AM [facility] Eosinophils % 0.2(L) 0.7 - 7.0 % 03/09/2021 10:22 AM [facility] Basophils % 0.1 0.1 - 1.2 % 03/09/2021 10:22 AM [facility] Immature Granulocytes 0.1 0 - 0.5 % 03/09/2021 10:22 AM [facility] Neutrophil Absolute 8.29(H) 1.56 - 6.13 x10E9/L 03/09/2021 10:22 AM [facility] Lymphocytes Absolute 1.14(L) 1.18 - 3.74 x10E9/L 03/09/2021 10:22 AM [facility] Monocytes Absolute 0.23(L) 0.24 - 0.86 x10E9/L 03/09/2021 10:22 AM CDT [facility] Eosinophils Absolute 0.02(L) 0.04 - 0.54 x10E9/L 03/09/2021 10:22 AM CDT [facility] Basophils Absolute 0.01 0.01 - 0.08 x10E9/L 03/09/2021 10:22 AM CDT [facility] Immature Granulocytes Absolute 0.01 0 - 0.03 x10E9/L 03/09/2021 10:22 AM CDT [facility] nRBC Auto 0 <=0 /100 WBC 03/09/2021 10:22 AM CDT [facility] nRBC Absolute 0.00 <=0 x10E9/L 03/09/2021 10:22 AM CDT [facility] Blood BLOOD SPECIMEN / Unknown Lab Venipuncture / Unknown 03/09/2021 10:05 AM CDT 03/09/2021 10:18 AM CDT Rehan Mendoza MD LAB - HEMATOLOGY ORD ERABLES Performing Organization Address [facility] Co de Phone Number [facility] [address] * GROSS + MICRO EXAM (ILL) (03/09/2021 9:05 AM CDT) Case Report Surgical Pathology Report ? Case: [id number] ? Authorizing Provider: ??Rehan Mendoza MD ?Collected: ? 03/09/2021 09:05 AM ? Ordering Location: ? [facility] ?Received: ?03/09/2021 02:06 PM ? Pathologist: ? Monica Martinez MD ? Specimen: ?Stomach Resect Sub, stomach remnant - sleeve gastrectomy ? 03/11/2021 12:43 PM [facility] Final Diagnosis Stomach remnant, sleeve gastrectomy: - No significant histologic abnormality. 03/11/2021 12:43 PM [facility] Microscopic Description and Comment Microscopic examination is performed and substantiates the above diagnosis. 03/11/2021 12:43 PM [facility] Clinical History Morbid obesity. 03/11/2021 12:43 PM [facility] Gross Description Received in formalin labeled Maria Del Carmen Ray, stomach remnant sleeve gastrectomy, stomach resec sub is a stapled pink gastric resection measuring 28.0 x 4.2 x3.0 cm. The specimen is received open 7 cm from one margin. The specimen is opened longitudinally to reveal unremarkable rugal folds without masses or lesions. [employer] sections are submitted in A1-A2. LS/scs 03/11/2021 12:43 PM [facility] Disclaimer The performance characteristics of all immunohistochemical and indirect immunofluorescence stains (if any) cited in this report were determined by the [facility] of [facility]. Some of these tests were developed [...] slides and special stains prepared at [facility], [place]. [address] (CLIA# [id number]) unless otherwise specified. This case was interpreted by the [facility] Department of Pathology. When applicable, select reference laboratory testing is performed at the [facility], [address] [place] [address]. 03/11/2021 12:43 PM CDT [facility] Embedded Images 03/11/2021 12:43 PM CDT [facility] Pathology/Cytolo gy SPECIMEN FROM STOMACH OBTAINED BY PARTIAL GASTRECTOMY / Unknown 03/09/2021 9:05 AM CDT 03/09/2021 2:06 PM CDT Comment:Pre-op diagnosis: Morbid obesity [E66.01] Rehan Mendoza MD LAB - PATHOLOGY/CYTO LOGY ORDERABLES [facility] [address] documented in this encounter Visit Diagnoses [...] 03/09/2021 9:53 AM CDT 80 mg Cash [facility] capsule 1 capsule 1 capsule, Oral, DAILY, [...] 1 dose, On Tue03/09/21 at 0600, See Noomeoedex for renal dosing guidelines. 0753 ($ Given - Provider: David Burger APRN-DIRECTOR GRAPHICS) acetaminophen (Ofirmev) injection 1,000 mg (COMPLETED) 1,000 mg, at 400 mL/hr, Intravenous, EVERY 6 HOURS, 2 doses, First dose on Tue03/09/21 at 1400, Last dose on Tue03/09/21 at 2000, See Noomeoedex for renal dosing guidelines. 1347 ($ New [...] Mcgraw RN)2256 ($ Given - Provider: Luisa Alcantraa, RITA) 0441 ($ Given - Provider: Luisa [...] ($ Given - Provider: Lyn Mcgraw RN) Muufri capsule 1 capsule 1 capsule, Oral, DAILY, [...]
--- OUTSIDE RECORDS SUMMARY | 2024-11-04 23:55 | XMS_ITS | Encounter Summary ---
Author Organization [facility] Address [address] [place] [address] Care Team Providers Care Legal Referee Name Role Phone Unavailable Primary Care Provider Unavailabl e Reason for Visit * Reason Comments Bariatric Surgery Follow-up Encounter Details Date Type Department Care Team (Late st Contact Info) Description 09/17/2020 3:00 PM EMERGENCY ROOM PHYSICIAN ASSISTANT Video Visit [facility] [address] [place] [phone] Rehan Mendoza MD [address] [place] [phone] Tram Pemberton, CREDIT ADJUSTER-[facility] [address] [address] Morbid obesity (HCC) ; Body mass index [...] Sex Assigned at Female 11/25/2020 1:10 PM EMERGENCY ROOM PHYSICIAN ASSISTANT Gender Identity Female 11/25/2020 1:10 PM EMERGENCY ROOM PHYSICIAN ASSISTANT Sexual Orientation Straight 02/02/2021 4: 18 PM CDT documented as of this encounter Last Filed Vital Signs Vital Sign Reading Time Taken Comments Blood Pressure 129/85 09/17/2020 2:00 PM EMERGENCY ROOM PHYSICIAN ASSISTANT Pulse 65 09/17/2020 2:00 PM EMERGENCY ROOM PHYSICIAN ASSISTANT Temperature 36.4 ??C (97.5 ??F) 09/17/2020 2:00 PM CS T Respiratory Rate 20 09/17/2020 2:00 PM EMERGENCY ROOM PHYSICIAN ASSISTANT Oxygen Saturation 99% 09/17/2020 2:00 PM EMERGENCY ROOM PHYSICIAN ASSISTANT Inhaled Oxygen Concentration - - Weight 112.9 kg (249 lb) 09/17/2020 2:00 PM EMERGENCY ROOM PHYSICIAN ASSISTANT Height 160 cm (5' 3 ) 09/17/2020 2:00 PM EMERGENCY ROOM PHYSICIAN ASSISTANT Body Mass Index 44.11 09/17/2020 2:00 PM EMERGENCY ROOM PHYSICIAN ASSISTANT documented in this encounter Progress Notes * Tram Pemberton APRN-CNP - 09/17/2020 8:35 AM CST [facility] [place] [address] . . Date of encounter: 09/17/2020 Provider: SANGEETHA Rai Patient: Maria Del Carmen Ray CSN: [id number] Specialty: Bariatric Surgery Date of : 1975 Today's visit was conducted virtually due to COVID-19 countermeasures. The patient has given verbalconsent to have today's visit conducted by this same means with treatment provided remotely. The patient verbally consents to the billing and collection practices of [facility]. Visit type: Bariatrics Virtual Pre-operative [...] file Gets together: Not on file Attends rastafarian service: Not on file Active member of [...] ??? vitamin D, ergocalciferol, (DRISDOL) 1.25 MG (17878 UT) capsule Take 1 capsule by mouth [...] reviewed and updated as documented in Epic SAGNEETHA Rai CC: SANGEETHA Kumar GENCY ROOM PHYSICIAN ASSISTANT documented in this encounter Plan of Treatment Upcoming Encounters Date Type Department Care Team (Late st Contact Info) Description 03/15/2025 10:00 AM CDT Office Visit [facility] [address] [place] [phone] Vianey Llanes, CREDIT ADJUSTER-GLOVE MACHINE OPERATOR [address], [place] [phone] 03/15/2025 10:30 AM CDT Clinical Support [facility] [address] [place] [phone] documented as of this encounter Visit Diagnoses [...]
--- OUTSIDE RECORDS SUMMARY | 2024-11-04 23:55 | XMS_ITS | Encounter Summary ---
Author Organization [facility] Address [address] [facility] [place] [address] Care Team Providers Care Manager Sales And Marketing Name Role Phone Unavailable Primary Care Provider Unavailabl e Encounter Details Date Type Department Care Team (Late st Contact Info) Description 03/02/2021 Orders Only [facility] Services [address] [place] [address] Tram Pemberton, VOCATIONAL EDUCATION PROFESSIONAL-FOOD SERVICE MANAGER [address] [address] Bariatric surgery status Social History Tobacco Use Types Packs/Day Years Used Date Smoking Tobacco: Former Cigarettes Q uit: 06/2020 Smokeless Tobacco: Never Alcohol Use Standard Drinks/Week Comments Yes 14 (1 standard drink = 0.6 oz pu re alcohol) Sex and Gender Information Value Date Recorded Sex Assigned at Female 11/25/2020 1:10 PM CLINICAL SERVICES DIRECTOR Gender Identity Female 11/25/2020 1:10 PM CLINICAL SERVICES DIRECTOR Sexual Orientation Straight 02/02/2021 4: 18 [...] 10:00 AM CDT Office Visit [facility] Weight Management Services [address] [place] [address] Vianey Llanes, VOCATIONAL EDUCATION PROFESSIONAL-FOOD SERVICE MANAGER [address] [place] [address] 03/15/2025 10:30 AM CDT Clinical Support [facility] [address] [place] [address] documented as of this encounter Visit Diagnoses Diagnosis Bariatric surgery status- Primary documented in this encounter
--- OUTSIDE RECORDS SUMMARY | 2024-11-04 23:55 | XMS_ITS | Encounter Summary ---
Author Organization [facility] Address [address] [place] [address] Care Team Providers Care Call Or Contact Centre Coach Name Role Phone Unavailable Primary Care Provider Unavailabl e Encounter Details Date Type Department Care Team (Late st Contact Info) Description 02/20/2021 6:45 AM CDT - 02/20/2021 11:59 PM CDT Hospital Encounter [facility] [address] [place] [address] Rehan Mendoza MD [address] [place] [phone] Discharge Disposition: Home or Self Care Social History Tobacco Use Types Packs/Day Years Used Date Smoking Tobacco: Former Cigarettes Q uit: 06/2020 Smokeless Tobacco: Never Alcohol Use Standard Drinks/Week Comments Yes 14 (1 standard drink = 0.6 oz pu re alcohol) Sex and Gender Information Value Date Recorded Sex Assigned at Female 11/25/2020 1:10 PM OUTBOARD MOTOR INSPECTOR Gender Identity Female 11/25/2020 1:10 PM OUTBOARD MOTOR INSPECTOR Sexual Orientation Straight 02/02/2021 4: 18 [...] 02/23/2021 vitamin D, ergocalciferol, (DRISDOL) 1.25 MG (64916 UT) capsuleIndications:Vi tamin D Deficiency Take 1 capsule by mouth every 7 days Reasons: Vitamin D Deficiency 4 capsule 3 09/17/2020 03/10/2021 documented as of this encounter Plan of Treatment Upcoming Encounters Date Type Department Care Team (Late st Contact Info) Description 03/15/2025 10:00 AM CDT Office Visit [facility] Weight Management Services [address] [place] [phone] Vianey Llanes, LOFT WORKER-AUTOMATIC BANDSAW TENDER [address] [place] [address] 03/15/2025 10:30 AM CDT Clinical Support [facility] Weight Management Services [address] [place] [phone] documented as of this encounter Procedures Procedure Name Priority Date/Time Associated Diagnosis Comments SARS-COV-2 (COVID-19) PANEL (SOIL) Routine 02/20/2021 6:47 AM CDT Pre-operative laboratory examination SARS-COV-2 (COVID-19) IN HOUSE Routine 02/20/2021 6:47 AM CDT Pre-operative laboratory examination documented in this encounter Results * SARS-COV-2 (COVID-19) IN HOUSE (02/20/2021 6:47 AM CDT) COVID-19 PCR Not detected Not detected 02/21/2021 10:47 AM CDT [facility] Microbiology SPECIMEN FROM NASOPHARYNGEAL STRUCTURE / Unknown Collection / Unknown 02/20/2021 6:47 AM CDT 02/20/2021 8:22 AM CDT Narrative [facility] - 02/21/2021 10:47 AM CDT This Real Time RT-PCR assay was developed and its performance characteristics determined by [place] [facility]. This test has been [...] Mendoza MD LAB - MICROBIOLOGY O RDERABLES [facility] [address] [place] [address], [facility] [phone] documented in this encounter Visit Diagnoses Diagnosis Pre-operative laboratory examination Pre-procedural laboratory examination documented in this encounter Additional Health Concerns Infection Onset Date Last Indicated Resolved Time COVID-19 Under Investigation 02/20/2021 02/20/202102/21/2021 10:47 AM CDT documented as of this encounter
--- OUTSIDE RECORDS SUMMARY | 2024-11-04 23:55 | XMS_ITS | Encounter Summary ---
Author Organization [facility] Address [address] [facility] [place] [address] Care Team Providers Care Tin Plater Name Role Phone Unavailable Primary Care Provider Unavailabl e Reason for Visit * Reason Comments Bariatric Surgery Initial Assessment * Evaluate & Treat (Routine) - Closed Specialty Diagnoses / Procedures Referred By Contac t Referred To Contact Weight Management Diagnoses Obesity, unspecified Selfreferral, Patient [facility] [address] [place] [address] Referral ID Status Reason Start Date Expiration Date Visits Re quested Visits Authorized [id number] Closed 07/25/2020 07/25/2021 1 1 Encounter Details Date Type Department Care Team (Late st Contact Info) Description 08/13/2020 10:30 AM CDT Office Visit [facility] Weight Management Services [address] [place] [address] [place] [address] [phone] Pre-op evaluation (Primary Dx); Morbid obesity (HCC) Social History Tobacco Use Types Packs/Day Years Used Date Smoking Tobacco: Former Cigarettes Q uit: 06/2020 Smokeless Tobacco: Never Alcohol Use Standard Drinks/Week Comments Yes 14 (1 standard drink = 0.6 oz pu re alcohol) Sex and Gender Information Value Date Recorded Sex Assigned at Female 11/25/2020 1:10 PM EXECUTIVE MARKETING ASSISTANT Gender Identity Female 11/25/2020 1:10 PM EXECUTIVE MARKETING ASSISTANT Sexual Orientation Straight 02/02/2021 4: 18 [...] Mendoza MD - 08/14/2020 11:13 AM CDT [facility] [place] [address] . . Date of encounter: 08/13/2020 Provider: Dr. Rehan Mendoza. 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 The procedure requested is Laparoscopic Sleeve [...] 2 months Method of weight loss phentermine [place] body weight: 52.4 kg (115 lb 8.3 [...] you have an unusual work schedule? no Margie Sleepiness Scale total points: 1 Past Medical [...] file Gets together: Not on file Attends amish service: Not on file Active member of [...] No palpable visceromegaly. No palpableventral hernias. Skin: [place] and moist. No ulcers, rashes, or lesions. Extremities: Well perfused. No gross joint deformity noted Neurological: Cranial nerves 2-12 were grossly intact. Psychiatric: The patient's mood and affect appeared to be appropriate Labs No results for input(s): WBC, RBC, HGB, HCT, PLTCOUNT in the last 08487 hours. No results for input(s): SODIUM, POTASSIUM, CO2, BUN, CREATININE in the last 81378 hours. Invalid input(s): CLORIDE No results for input(s): GLUCOSE in the last 39280 hours. No results for input(s): AST, ALT in the last 17844 hours. No results for input(s): LDL, HDL, TRIG, TSH in the last 82723 hours. No results for input(s): HGBA1C in the last 64437 hours. Some lab results will be in [...] Chest Xray. EGD. Follow up: Will see me/PA/THIRD RAIL INSTALLER in 1 month. she meets the criteria as set by the [employer] that recommends bariatric surgeryon people [...] and having very close follow-up with a rod greaser and me. In addition she must attend [...] will have additional education provided by the mainframe systems programmer and rod greaser at [facility]. Because of the significant changes in her eating habits she will have to see a rod greaser prior to and following surgery. I have [...] [facility] Weight Management Services [address] [place] [phone] Vianey Llanes APRN-CONTENT STRATEGY LEAD [address] [place] [address] 03/15/2025 10:30 AM CDT Clinical Support [facility] Management Services [address] [place] [phone] documented as of this encounter Visit Diagnoses Diagnosis Pre-op evaluation- Primary Preoperative examination, unspecified Morbid obesity (HCC) Morbid obesity documented in this encounter
--- OUTSIDE RECORDS SUMMARY | 2024-11-04 23:55 | XMS_ITS | Encounter Summary ---
Author Organization [facility] Address [address] [place] [address] Care Team Providers Care Digital Account Coordinator Name Role Phone Unavailable Primary Care Provider Unavailabl e Encounter Details Date Type Department Care Team (Late st Contact Info) Description 01/30/2021 6:30 AM CDT - 01/30/2021 11:59 PM CDT Hospital Encounter [facility] [address] [place] [address] eRhan Mendoza MD [address] [place] [phone] Discharge Disposition: Home or Self Care Social History Tobacco Use Types Packs/Day Years Used Date Smoking Tobacco: Former Cigarettes Q uit: 06/2020 Smokeless Tobacco: Never Alcohol Use Standard Drinks/Week Comments Yes 0 (1 standard drink = 0.6 oz pur e alcohol) OCC. Sex and Gender Information Value Date Recorded Sex Assigned at Female 11/25/2020 1:10 PM SENIOR OCCUPATIONAL THERAPIST Gender Identity Female 11/25/2020 1:10 PM SENIOR OCCUPATIONAL THERAPIST Sexual Orientation Straight 02/02/2021 4: 18 PM [...] 02/23/2021 vitamin D, ergocalciferol, (DRISDOL) 1.25 MG (75249 UT) capsuleIndications:Vit meza D Deficiency Take 1 capsule by mouth every 7 days Reasons: Vitamin D Deficiency 4 capsule 3 09/17/2020 03/10/2021 documented as of this encounter Plan of Treatment Upcoming Encounters Date Type Department Care Team (Late st Contact Info) Description 03/15/2025 10:00 AM CDT Office Visit [facility] Weight Management Services [address] [place] [phone] Vianey Llanes, MESSENGER FLOORPERSON-BIOINFORMATICS SOFTWARE ENGINEER [address] [place], [place] [phone] 03/15/2025 10:30 AM CDT Clinical Support [facility] Management Services [address] [place] [phone] documented as of this encounter Procedures Procedure Name Priority Date/Time Associated Diagnosis Comments SARS-COV-2 (COVID-19) PANEL (SOIL) Routine 01/30/2021 6:37 AM CDT Preop examination SARS-COV-2 (COVID-19) IN HOUSE Routine 01/30/2021 6:37 AM CDT Preop examination documented in this encounter Results * SARS-COV-2 (COVID-19) IN HOUSE (01/30/2021 6:37 AM CDT) COVID-19 PCR Not detected Not detected 01/31/2021 8:43 AM CDT [facility] Microbiology SPECIMEN FROM NASOPHARYNGEAL STRUCTURE / Unknown Collection / Unknown 01/30/2021 6:37 AM CDT 01/30/2021 8:20 AM CDT Narrative [facility] - 01/31/2021 8:43 AM CDT This nucleic acid amplification assay performance was validated by [facility]. This test has been [...] Mendoza MD LAB - MICROBIOLOGY O RDERABLES [facility] [address] [place] [address], [facility] [phone] documented in this encounter Visit Diagnoses Diagnosis Preop examination Preoperative examination, unspecified documented in this encounter Additional Health Concerns Infection Onset Date Last Indicated Resolved Time COVID-19 Under Investigation 01/30/2021 01/30/2021 01/31/2021 8:43 AM CDT documented as of this encounter
--- OUTSIDE RECORDS SUMMARY | 2024-11-04 23:55 | XMS_ITS | Encounter Summary ---
Author Organization [facility] Address [address] [place] [address] Care Team Providers Care Molder Closed Molds Name Role Phone Unavailable Primary Care Provider Unavailabl e Reason for Visit * Reason Onset Date Comments General 01/26/2021 Encounter Details Date Type Department Care Team (Late st Contact Info) Description 01/26/2021 Telephone [facility] Weight Management Services [address] [place] [phone] Rehan Mendoza MD [address] [place] [phone] General Social History Tobacco Use Types Packs/Day Years Used Date Smoking Tobacco: Former Cigarettes Q uit: 06/2020 Smokeless Tobacco: Never Alcohol Use Standard Drinks/Week Comments Yes 0 (1 standard drink = 0.6 oz pur e alcohol) OCC. Sex and Gender Information Value Date Recorded Sex Assigned at Female 11/25/2020 1:10 PM LABORER PLUMBING Gender Identity Female 11/25/2020 1:10 PM LABORER PLUMBING Sexual Orientation Straight 02/02/2021 4: 18 PM [...] [facility] [address] [place] [phone] Vianey Llanes, SAP CONSULTANT-POST DOC FELLOWSHIP [address] [place], [place] [address] 03/15/2025 10:30 AM CDT Clinical Support [facility] [employer] [facility] Services [address] [place] [phone] documented as of this encounter Visit Diagnoses Diagnosis Preop examination- Primary Preoperative examination, unspecified documented in this encounter
--- OUTSIDE RECORDS SUMMARY | 2024-11-04 23:55 | XMS_ITS | Encounter Summary ---
Author Organization [facility] Address [address] [facility] [place] [address] Care Team Providers Care Salesperson Sheet Music Name Role Phone Unavailable Primary Care Provider Unavailabl e Reason for Visit * Reason Onset Date Comments General 10/13/2020 Encounter Details Date Type Department Care Team (Late st Contact Info) Description 10/13/2020 Telephone [facility] Weight Management Services [address] [place] [phone] Tram Pemberton, EXPERIMENTAL AIRCRAFT MECHANIC-[facility] [address] [address] General Social History Tobacco Use Types Packs/Day Years Used Date Smoking Tobacco: Former Cigarettes Q uit: 06/2020 Smokeless Tobacco: Never Alcohol Use Standard Drinks/Week Comments Yes 14 (1 standard drink = 0.6 oz pu re alcohol) Sex and Gender Information Value Date Recorded Sex Assigned at Female 11/25/2020 1:10 PM VEHICLE AND EQUIPMENT CLEANER Gender Identity Female 11/25/2020 1:10 PM VEHICLE AND EQUIPMENT CLEANER Sexual Orientation Straight 02/02/2021 4: 18 PM CDT documented as of this encounter Miscellaneous Notes * Telephone Encounter - Briana Virk RN - 10/13/2020 1:52 PM CST Left message asking pt to call back to f/u on nicotine testing. Needing to know if she has order orif has already had done anywhere so can f/u with results. CLE AND EQUIPMENT CLEANER documented in this encounter Plan of Treatment Upcoming Encounters Date Type Department Care Team (Late st Contact Info) Description 03/15/2025 10:00 AM CDT Office Visit [facility] Weight Management Services [address] [place] [phone] Vianey Llanes, EXPERIMENTAL AIRCRAFT MECHANIC-EXPERIMENTAL BOX TESTER [address] [place], [place] [phone] 03/15/2025 10:30 AM CDT Clinical Support [facility] Weight Management Services [address] [place] [address] documented as of this encounter Visit Diagnoses Not on filedocumented in this encounter
--- OUTSIDE RECORDS SUMMARY | 2024-11-04 23:55 | XMS_ITS | Encounter Summary ---
Author Organization [facility] Health Address [address] [place] [address] Care Team Providers Care Timber Feller Name Role Phone Unavailable Primary Care Provider Unavailabl e Reason for Visit * Reason Onset Date Comments General 02/27/2021 Encounter Details Date Type Department Care Team (Late st Contact Info) Description 02/27/2021 Telephone [facility] Weight Management Services [address] [place] [phone] Rehan Mendoza MD [address] [place] [phone] General Social History Tobacco Use Types Packs/Day Years Used Date Smoking Tobacco: Former Cigarettes Q uit: 06/2020 Smokeless Tobacco: Never Alcohol Use Standard Drinks/Week Comments Yes 14 (1 standard drink = 0.6 oz pu re alcohol) Sex and Gender Information Value Date Recorded Sex Assigned at Female 11/25/2020 1:10 PM MANAGER GLOBAL COMMUNICATIONS Gender Identity Female 11/25/2020 1:10 PM MANAGER GLOBAL COMMUNICATIONS Sexual Orientation Straight 02/02/2021 4: 18 PM [...] Description 03/15/2025 10:00 AM CDT Office Visit [facility] Weight Management Services [address] [place] [phone] Vianey Llanes, DECK HAND-LOG RAFT WORKER [address] [place] [address] 03/15/2025 10:30 AM CDT Clinical Support [facility] Weight Management Services [address] [place] [address] documented as of this encounter Visit Diagnoses Not on filedocumented in this encounter
--- OUTSIDE RECORDS SUMMARY | 2024-11-04 23:55 | XMS_ITS | Encounter Summary ---
Author Organization [facility] Health Address [address] [facility] [place] [address] Care Team Providers Care Tax Manager Name Role Phone Unavailable Primary Care [...] Sex Assigned at Female 11/25/2020 1:10 PM RADIO MECHANIC APPRENTICE Gender Identity Female 11/25/2020 1:10 PM RADIO MECHANIC APPRENTICE Sexual Orientation Straight 02/02/2021 4: 18 [...] Description 03/15/2025 10:00 AM CDT Office Visit [facility] Weight Management Services [address] [place] [phone] Vianey Llanes, FELT WASHING MACHINE TENDER-BUTTON RECLAIMER [address] [place], [place] [phone] 03/15/2025 10:30 AM CDT Clinical Support [facility] Weight Management Services [address] [place] [address] documented as of this encounter Visit Diagnoses Not on filedocumented in this encounter Additional Health Concerns Infection Onset Date Last Indicated Resolved Time COVID-19 Under Investigation 03/06/2021 03/06/2021 03/07/2021 5:24 AM CDT documented as of this encounter
--- OUTSIDE RECORDS SUMMARY | 2024-11-04 23:55 | XMS_ITS | Encounter Summary ---
Author Organization [facility] Address [address] [place] [address] Care Team Providers Care Configuration Technician Name Role Phone Unavailable Primary Care Provider Unavailabl e Encounter Details Date Type Department Care Team (Late st Contact Info) Description 03/04/2021 9:30 AM CDT Video Visit [facility] [address] [place] [address] [place] [address] [address] MEDICATION THERAPY MANAGEMENT Social History Tobacco Use Types Packs/Day Years Used Date Smoking Tobacco: Former Cigarettes Q uit: 06/2020 Smokeless Tobacco: Never Alcohol Use Standard Drinks/Week Comments Not Currently 14 (1 standard drink = 0.6 oz pu re alcohol) Sex and Gender Information Value Date Recorded Sex Assigned at Female 11/25/2020 1:10 PM PURCHASING AGENT Gender Identity Female 11/25/2020 1:10 PM PURCHASING AGENT Sexual Orientation Straight 02/02/2021 4: 18 PM [...] 24hrs. 12 tablet 0 ??? Probiotic Product (Wynlink) capsule Take 1 (one) capsule by mouth [...] ??? vitamin D, ergocalciferol, (DRISDOL) 1.25 MG (84400 UT) capsule Take 1 capsule by mouth every 7days Reasons: Vitamin D Deficiency 4 capsule 3 No current facility-administered medications on file prior to visit. Assessment and Plan: Medications: ?? Current Medications: Pt seen during COVID pandemic. Interview conducted by telephone. Went through list in [employer] and pt acknowledged that it was complete [...] ?? Handout sent to patient at e-mail: [email or web address] Mohan Velez PharmD 03/04/2021 9:57 AM documented in this encounter Plan of Treatment Upcoming Encounters Date Type Department Care Team (Late st Contact Info) Description 03/15/2025 10:00 AM CDT Office Visit [facility] [address] [place] [address] Vianey Llanes, FIRE CAPTAIN MARINE-RN DOCUMENT IMPROVEMENT [address] [place], [place] [address] 03/15/2025 10:30 AM CDT Clinical Support [facility] [address] [place] [phone] documented as of this encounter Visit Diagnoses Diagnosis MEDICATION THERAPY MANAGEMENT- Primary MEDICATION THERAPY MANAGEMENT documented in this encounter
--- OUTSIDE RECORDS SUMMARY | 2024-11-04 23:55 | XMS_ITS | Encounter Summary ---
Author Organization [facility] Address [address] [facility] [place] [address] Care Team Providers Care Worship Director Name Role Phone Unavailable Primary Care Provider Unavailabl e Reason for Visit * Auth/Cert Specialty Diagnoses / Procedures Referred By Veronica bonner Referred To Contact Diagnoses Gastroesophageal reflux disease, unspecified whether esophagitis present Gastroesophageal reflux disease, unspecified whether esophagitis present [K21.9] Procedures ESOPHAGOGASTRODUODENOSCOPY (EGD) BIOPSY Referral ID Status Reason Start Date Expiration Date Visits Re quested Visits Authorized [id number] 1 1 Encounter Details Date Type Department Care Team (Late st Contact Info) Description 02/02/2021 7:58 AM CDT - 02/02/2021 1:27 PM CDT Hospital Encounter [facility] [address] [address] [place] [address] [address] Surgery General Discharge Disposition: Home or Self Care Social History Tobacco Use Types Packs/Day Years Used Date Smoking Tobacco: Former Cigarettes Q uit: 06/2020 Smokeless Tobacco: Never Alcohol Use Standard Drinks/Week Comments Yes 14 (1 standard drink = 0.6 oz pu re alcohol) Sex and Gender Information Value Date Recorded Sex Assigned at Female 11/25/2020 1:10 PM FISHER DIVING Gender Identity Female 11/25/2020 1:10 PM FISHER DIVING Sexual Orientation Straight 02/02/2021 4: 18 PM [...] 02/23/2021 vitamin D, ergocalciferol, (DRISDOL) 1.25 MG (73021 UT) capsuleIndications:Vit meza D Deficiency Take 1 [...] Tram Pemberton APRN-CNP - 01/13/2021 7:51 AM FISHER DIVING [facility] [place] [address] . . Date of encounter: 01/13/2021 Provider: SANGEETHA Rai Patient: Maria Del Carmen Ray CSN: [id number] Specialty: Bariatric Surgery Date of : 1975 [...] encounter (Office Visit) with Nilay, Tram D, CUSTOMIZER-NEWS EDITOR Medication Sig ??? vitamin D, ergocalciferol, (DRISDOL) 1.25 MG (28755 UT) capsule Take 1 capsule by mouth [...] I will submit her information to our associate agent insurance sales for review. She verbalized understanding and is agreeable to this plan after shared decision making with patient. SANGEETHA Rai CC: SANGEETHA Kumar ER DIVING documented in this encounter OR Notes * Operative - Rehan Mendoza MD - 02/02/2021 11:16 AM CDT EGD OPERATIVE REPORT Pt Name: Maria Del Carmen Ray Date of Service: 02/02/2021 12:32 PM Patient Name: Maria Del Carmen Ray Referring Physician: SANGEETHA Kumar SURGEON: Surgeon(s) and Role: * Rehan Mendoza MD - Primary MATERIAL HANDLING TECHNICIAN: Screenplay Writer: King Barros RN Scrub Person: Crista Ventura RN; Catherine Gabriel RN Help Start: Khushbu Diaz RN Screenplay Writer Orientee: Priya Hurtado RN Pre Procedure Diagnosis: [...] HEALTH Health [facility] [address] [place] [phone] Vianey Llanes, CUSTOMIZER-NEWS EDITOR [address] [place] [address] 03/15/2025 10:30 AM CDT Clinical Support [facility] [address] [place] [phone] Scheduled Orders Name Type Priority Associated Diagnoses Orde r Schedule EGD GI Routine ONCE for 1 Occ urrences starting 02/02/2021 until 02/02/2021 documented as of this encounter Procedures Procedure Name Priority Date/Time Associated Diagnosis Comments GROSS + MICRO EXAM (ILL) Routine 02/02/2021 12:23 PM CDT Gastroesophageal reflux disease, unspecified whether esophagitis present ID EGD FLEX TRANSORAL W BX SNGL OR MULT 02/02/2021 12:13 PM CDT Gastroesophageal reflux disease, unspecified whether esophagitis present Special Needs ARRIVAL TIME: documented in this encounter Results * GROSS + MICRO EXAM (ILL) (02/02/2021 12:23 PM CDT) Case Report Surgical Pathology Report ? Case: [id number] ? Authorizing Provider: ??Rehan Mendoza MD ?Collected: ? 02/02/2021 12:23 PM ? Ordering Location: ? [facility] ?Received: ?02/03/2021 11:15 AM ? Pathologist: ? Chuckie Lujan MD ? Specimens: ?? A) - Duodenal Biopsy, duodenum biopsy ? B) - Biopsy, Pylorus biopsy r/o h pylori ? C) - EG Junction Biopsy , GE junction ? 02/06/2021 2:03 PM T [facility] Final Diagnosis A) SMALL INTESTINE, DUODENUM [...] OF INTESTINAL METAPLASIA. 02/06/2021 2:03 PM T [facility] Microscopic Description and Comment The gastric mucosal changes are non-specific and appear reactive. Result of immunostain is pending which will be reported in an addendum upon completion of the test. The GEJ biopsy findings are compatible with reflux disease. 02/06/2021 2:03 PM CDT [facility] Clinical History Gastroesophageal reflux disease, unspecified whether esophagitis present Per EMR, endoscopy reported GEjn at 40 cm from incisors, irregular biospy obtained. Small superficial Pyloric ulcer, biopsy obtained Gastritis. No hiatal hernia 02/06/2021 2:03 PM T [facility] Gross Description Three specimens are received [...] GE junction, EG junction biopsy are three pink-crwo soft irregular tissue fragments measuring 0.6 x 0.6 x 0.2 cm in aggregate ranging from 0.2-0.6 cm in greatest dimension submitted in toto in C1. LS/scs 02/06/2021 2:03 PM T [facility] Disclaimer The performance characteristics of all immunohistochemical and indirect immunofluorescence stains (if any) cited in this report were determined by the Histopathology Laboratory of [facility]. Some of these tests were developed by [...] H&E slides and special stains prepared at [facility], [place]. [address] (CLIA# [id number]) unless otherwise specified. This case was interpreted by the [facility] Department of Pathology. When applicable, select reference laboratory testing is performed at the [facility], [address] [place] [address]. 02/06/2021 2:03 PM [facility] Addendum 1 Immunostain for H-pylori: NEGATIVE Comment: Immunostain reveals no H-pylori organisms. Positive control is appropriately stained. 02/06/2021 2:03 PM [facility] Addendum electronically signed by Chuckie Lujan MD on 02/06/2021 at 2:03 PM Embedded Images 02/06/2021 2:03 PM [facility] Pathology/Cytology DUODENAL BIOPSY SPECIMEN / Unknown [...] - PATHOLOGY/CYTO LOGY ORDERABLES Performing Organization Address [facility] Co de Phone Number [facility] [address] [place] [address] documented in this encounter Visit Diagnoses Diagnosis [...]
--- OUTSIDE RECORDS SUMMARY | 2024-11-04 23:55 | XMS_ITS | Encounter Summary ---
Author Organization [facility] Address [address] [place] [address] Care Team Providers Care Program Support Assistant Name Role Phone Unavailable Primary Care Provider Unavailabl e Reason for Referral * Consultation (Routine) - Closed Specialty Diagnoses / Procedures Referred By Contharshal t Referred To Contact Nutrition Services Diagnoses Morbid obesity (HCC) Rehan Mendoza MD [address] [place] [phone] Referral ID Status Reason Start Date Expiration Date V isits Requested Visits Authorized [id number] Closed Specialty Services Required 08/14/2020 08/14/2021 3 3 Encounter Details Date Type Department Care Team (Late st Contact Info) Description 08/14/2020 4:00 PM CDT Video Visit [facility] [address] [place] [address] [place] [address] [address] Morbid obesity (HCC) Social History Tobacco Use Types Packs/Day Years Used Date Smoking Tobacco: Former Cigarettes Q uit: 06/2020 Smokeless Tobacco: Never Alcohol Use Standard Drinks/Week Comments Yes 14 (1 standard drink = 0.6 oz pu re alcohol) Sex and Gender Information Value Date Recorded Sex Assigned at Female 11/25/2020 1:10 PM METAL FLOW COORDINATOR Gender Identity Female 11/25/2020 1:10 PM METAL FLOW COORDINATOR Sexual Orientation Straight 02/02/2021 4: 18 [...] Description 03/15/2025 10:00 AM CDT Office Visit [facility] [address] [place] [address] Vianey Llanes, FOREST PATHOLOGY ASSOCIATE PROFESSOR-VP [employer] [address] [place] [address] 03/15/2025 10:30 AM CDT Clinical Support [facility] [address] [place] [phone] Scheduled Referrals Name Type Priority Associated Diagnoses Order Schedule MEDICAL NUTRITION THERAPY REFERRAL Outpatient Referral Routine Morbid obesity (HCC) 3 Occurrences starting 08/14/2020 until 08/14/2021 documented as of this encounter Visit Diagnoses Diagnosis Morbid obesity (HCC)- Primary Morbid obesity documented in this encounter
--- OUTSIDE RECORDS SUMMARY | 2024-11-04 23:55 | XMS_ITS | Encounter Summary ---
Author Organization [facility] Address [address] [place] [address] Care Team Providers Care Textile Screen Maker Name Role Phone Unavailable Primary Care Provider Unavailabl e Reason for Visit * Reason Onset Date Comments General 11/05/2020 Encounter Details Date Type Department Care Team (Late st Contact Info) Description 11/05/2020 Telephone [facility] [address] [place] [phone] Tram Pemberton, BUSINESS AND FINANCIAL COUNSEL-[facility] [address] [address] General Social History Tobacco Use Types Packs/Day Years Used Date Smoking Tobacco: Former Cigarettes Q uit: 06/2020 Smokeless Tobacco: Never Alcohol Use Standard Drinks/Week Comments Yes 14 (1 standard drink = 0.6 oz pu re alcohol) occ Sex and Gender Information Value Date Recorded Sex Assigned at Female 11/25/2020 1:10 PM FRAME OPERATOR Gender Identity Female 11/25/2020 1:10 PM FRAME OPERATOR Sexual Orientation Straight 02/02/2021 4 :18 PM CDT documented as of this encounter Miscellaneous Notes * Telephone Encounter - Briana Virk RN - 11/05/2020 10:36 AM CST Pt states she has cardiology appt scheduled for 11/17/2020. Also reminded pt of need for 2 neg nicotine tests. Pt v/u and requested order be mailed to her. E OPERATOR documented in this encounter Plan of Treatment Upcoming Encounters Date Type Department Care Team (Late st Contact Info) Description 03/15/2025 10:00 AM CDT Office Visit [facility] [address] [place] [phone] Vianey Llanes, BUSINESS AND FINANCIAL COUNSEL-BRIDAL CONSULTANT [address] [place], [place] [phone] 03/15/2025 10:30 AM CDT Clinical Support [facility] [address] [place] [phone] documented as of this encounter Visit Diagnoses Diagnosis History of smoking- Primary Personal history of tobacco use, presenting hazards to health documented in this encounter
--- OUTSIDE RECORDS SUMMARY | 2024-11-04 23:55 | XMS_ITS | Encounter Summary ---
Author Organization [facility] Address [address] [place] [address] Care Team Providers Care Adult Parole Officer Name Role Phone Unavailable Primary Care Provider Unavailabl e Reason for Visit * Reason Onset Date Comments Request Lab Order 12/15/2020 Encounter Details Date Type Department Care Team (Late st Contact Info) Description 12/15/2020 Telephone [facility] [address] [place] [address] Rehan Mendoza MD [address] [place] [phone] Request Lab Order Social History Tobacco Use Types Packs/Day Years Used Date Smoking Tobacco: Former Cigarettes Q uit: 06/2020 Smokeless Tobacco: Never Alcohol Use Standard Drinks/Week Comments Yes 0 (1 standard drink = 0.6 oz pur e alcohol) OCC. Sex and Gender Information Value Date Recorded Sex Assigned at Female 11/25/2020 1:10 PM TESTING COORDINATOR Gender Identity Female 11/25/2020 1:10 PM TESTING COORDINATOR Sexual Orientation Straight 02/02/2021 4: 18 PM CDT documented as of this encounter Miscellaneous Notes * Telephone Encounter - Cris Bundy LPN - 12/15/2020 1:40 PM TESTING COORDINATOR Lab orders faxed to [phone]. ING COORDINATOR * Telephone Encounter - Naila You - 12/15/2020 1:33 PM CST Per patient's request, please refax the order for the nicotine test & iron blood draw to [phone]. She will do this on Tuesday. ING COORDINATOR documented in this encounter Plan of Treatment Upcoming Encounters Date Type Department Care Team (Late st Contact Info) Description 03/15/2025 10:00 AM CDT Office Visit [facility] [address] [place] [phone] Vianey Llanes, EXERCISE PHYSIOLOGIST CERTIFIED-ELECTROMECHANICAL EQUIPMENT TESTER [address] [place], [place] [phone] 03/15/2025 10:30 AM CDT Clinical Support [facility] [address] [place] [phone] documented as of this encounter Visit Diagnoses Not on filedocumented in this encounter
--- OUTSIDE RECORDS SUMMARY | 2024-11-04 23:55 | XMS_ITS | Encounter Summary ---
Author Organization [facility] Address [address] [facility] [address] [facility] [address] [place] [address] Care Team Providers Care Rustic Terrazzo Setter Name Role Phone Unavailable Primary Care [...] Sex Assigned at Female 11/25/2020 1:10 PM BRICK KILN WORKER Gender Identity Female 11/25/2020 1:10 PM BRICK KILN WORKER Sexual Orientation Straight 02/02/2021 4: 18 [...] Description 03/15/2025 10:00 AM CDT Office Visit [facility] [address] [place] [phone] Vianey Llanes, PILLOWCASE FOLDER-EMERGENCY MEDICINE PHYSICIAN ASSISTANT [address] [place], [place] [address] 03/15/2025 10:30 AM CDT Clinical Support [facility] [address] [place] [address] documented as of this encounter Visit Diagnoses Not on filedocumented in this encounter Additional Health Concerns Infection Onset Date Last Indicated Resolved Time COVID-19 Under Investigation 01/30/2021 01/30/2021 01/31/2021 8:43 AM CDT documented as of this encounter
--- OUTSIDE RECORDS SUMMARY | 2024-11-04 23:55 | XMS_ITS | Encounter Summary ---
Author Organization [facility] Address [address] [place] [address] Care Team Providers Care Sourcing Manager Name Role Phone Unavailable Primary Care Provider Unavailabl e Reason for Visit * Reason Onset Date Comments General 02/05/2021 Encounter Details Date Type Department Care Team (Late st Contact Info) Description 02/05/2021 Telephone [facility] [address] [place] [phone] Rehan Mendoza MD [address] [place] [phone] General Social History Tobacco Use Types Packs/Day Years Used Date Smoking Tobacco: Former Cigarettes Q uit: 06/2020 Smokeless Tobacco: Never Alcohol Use Standard Drinks/Week Comments Yes 14 (1 standard drink = 0.6 oz pu re alcohol) Sex and Gender Information Value Date Recorded Sex Assigned at Female 11/25/2020 1:10 PM MACHINE MILKER Gender Identity Female 11/25/2020 1:10 PM MACHINE MILKER Sexual Orientation Straight 02/02/2021 4: 18 PM [...] HOSPITAL Health Weight Management Services [address] [place] [phone] Vianey Llanes, ACCOUNT INSTALLER-BAGGAGE HANDLING SUPERVISOR [address] [place] [address] 03/15/2025 10:30 AM CDT Clinical Support [facility] [address] [place] [address] documented as of this encounter Visit Diagnoses Diagnosis Pre-operative laboratory examination- Primary Pre-procedural laboratory examination documented in this encounter
--- OUTSIDE RECORDS SUMMARY | 2024-11-04 23:55 | XMS_ITS | Encounter Summary ---
Author Organization [facility] Address [address] [facility] [place] [address] Care Team Providers Care Computer Artist Name Role Phone Unavailable Primary Care Provider Unavailabl e Reason for Visit * Reason Onset Date Comments Pre Op Call 02/27/2021 Encounter Details Date Type Department Care Team (Late st Contact Info) Description 02/27/2021 Telephone [facility] [address] [place] [phone] Trma Pemberton, STRUCTURAL FITTER-[facility] [address] [place] [address] Pre Op Call Social History Tobacco Use Types Packs/Day Years Used Date Smoking Tobacco: Former Cigarettes Q uit: 06/2020 Smokeless Tobacco: Never Alcohol Use Standard Drinks/Week Comments Yes 14 (1 standard drink = 0.6 oz pu re alcohol) Sex and Gender Information Value Date Recorded Sex Assigned at Female 11/25/2020 1:10 PM SHOE STITCHER ODD Gender Identity Female 11/25/2020 1:10 PM SHOE STITCHER ODD Sexual Orientation Straight 02/02/2021 4: 18 PM [...] HOSPITAL Health Weight Management Services [address] [place] [phone] Vianey Llanes, STRUCTURAL FITTER-SPAGHETTI PRESS HELPER [address] [place], [place] [address] 03/15/2025 10:30 AM CDT Clinical Support [facility] Management [facility] [address] [place] [phone] documented as of this encounter Visit Diagnoses Diagnosis Bariatric surgery status- Primary documented in this encounter
--- OUTSIDE RECORDS SUMMARY | 2024-11-04 23:55 | XMS_ITS | Encounter Summary ---
Author Organization [facility] Address [address] [place] [address] Care Team Providers Care Precision Instrument Maker Name Role Phone Unavailable Primary Care Provider Unavailabl e Encounter Details Date Type Department Care Team (Late st Contact Info) Description 01/13/2021 9:00 AM FRONT DESK COORDINATOR Office Visit [facility] [address] [place] [address] [place] [address] [phone] Morbid obesity (HCC) (Primary Dx) Social History Tobacco Use Types Packs/Day Years Used Date Smoking Tobacco: Former Cigarettes Q uit: 06/2020 Smokeless Tobacco: Never Alcohol Use Standard Drinks/Week Comments Yes 0 (1 standard drink = 0.6 oz pur e alcohol) OCC. Sex and Gender Information Value Date Recorded Sex Assigned at Female 11/25/2020 1:10 PM FRONT DESK COORDINATOR Gender Identity Female 11/25/2020 1:10 PM FRONT DESK COORDINATOR Sexual Orientation Straight 02/02/2021 4: 18 PM CDT documented as of this encounter Progress Notes * Mandie Sanders APRN-CNS - 01/13/2021 7:57 AM CST Bariatric Pre-Surgical Psychosocial Assessment MARY LeePASSENGER VESSEL CHEF License # [id number] Maria Del Carmen Ray 1975 01/13/2021 [facility] Patient Verification & Telemedicine Based [...] ??? vitamin D, ergocalciferol, (DRISDOL) 1.25 MG (77171 UT) capsule Social History: Tobacco Use: No [...] nutritional support has been arranged. Patient location: [facility] outpatient clinic This encounter was performed using: Assessment interview Total time spent with the patient: 45 minutes SHELBY Lee T DESK COORDINATOR documented in this encounter Plan of Treatment Upcoming Encounters Date Type Department Care Team (Late st Contact Info) Description 03/15/2025 10:00 AM CDT Office Visit [facility] [address] [place] [phone] Vianey Llanes, BURT-DATA RECOVERY PLANNER [address] [place] [address] 03/15/2025 10:30 AM CDT Clinical Support [facility] Management Services [address] [place] [phone] documented as of this encounter Visit Diagnoses Diagnosis Morbid obesity (HCC)- Primary Morbid obesity documented in this encounter
--- OUTSIDE RECORDS SUMMARY | 2024-11-04 23:55 | XMS_ITS | Encounter Summary ---
Author Organization [facility] Address [address] [place] [address] Care Team Providers Care Ic Designer Gate Arrays Name Role Phone Unavailable Primary Care Provider Unavailabl e Reason for Visit * Reason Onset Date Comments Med Question 02/02/2021 Encounter Details Date Type Department Care Team (Late st Contact Info) Description 02/02/2021 Telephone [facility] [address] [place] [phone] Rehan Mendoza MD [address] [place] [phone] Med Question Social History Tobacco Use Types Packs/Day Years Used Date Smoking Tobacco: Former Cigarettes Q uit: 06/2020 Smokeless Tobacco: Never Alcohol Use Standard Drinks/Week Comments Yes 14 (1 standard drink = 0.6 oz pu re alcohol) Sex and Gender Information Value Date Recorded Sex Assigned at Female 11/25/2020 1:10 PM VARIETY LATHE OPERATOR Gender Identity Female 11/25/2020 1:10 PM VARIETY LATHE OPERATOR Sexual Orientation Straight 02/02/2021 4: 18 [...] Carafate and she went to pharmacy to pick up driver script and they did not have a [...] [facility] [address] [place] [phone] Vianey Llanes, CAR OILER-CYBER LEGAL ADVISOR [address] [place] [address] 03/15/2025 10:30 AM CDT Clinical Support [facility] [address] [place] [phone] documented as of this encounter Visit Diagnoses Not on filedocumented in this encounter
--- OUTSIDE RECORDS SUMMARY | 2024-11-04 23:55 | XMS_ITS | Encounter Summary ---
Author Organization [facility] Address [address] [facility] [place] [address] Care Team Providers Care Dip Lube Operator Name Role Phone Unavailable Primary Care Provider Unavailabl e Encounter Details Date Type Department Care Team (Latest Contact Info) Description 03/06/2021 6:10 AM CDT - 03/06/2021 6:42 AM CDT Hospital Encounter [facility] [address] [place], [place] [address] Tram Pemberton, NEMATOLOGIST-[address] [address] Discharge Disposition: Home or Self Care Social History Tobacco Use Types Packs/Day Years Used Date Smoking Tobacco: Former Cigarettes Q uit: 06/2020 Smokeless Tobacco: Never Alcohol Use Standard Drinks/Week Comments Not Currently 14 (1 standard drink = 0.6 oz pu re alcohol) Sex and Gender Information Value Date Recorded Sex Assigned at Female 11/25/2020 1:10 PM MANUFACTURED BUILDINGS REPAIRER Gender Identity Female 11/25/2020 1:10 PM MANUFACTURED BUILDINGS REPAIRER Sexual Orientation Straight 02/02/2021 4: 18 [...] 24hrs. 12 tablet 02/27/2021 04/10/2021 Probiotic Product ([employer]) capsuleIndications: Bariatric surgery status Take 1 (one) [...] 05/28/2021 vitamin D, ergocalciferol, (DRISDOL) 1.25 MG (15464 UT) capsuleIndications: Vitamin D Deficiency Take 1 capsule by mouth every 7 days Reasons: Vitamin D Deficiency 4 capsule 3 09/17/2020 03/10/2021 documented as of this encounter Plan of Treatment Upcoming Encounters Date Type Department Care Team (Late st Contact Info) Description 03/15/2025 10:00 AM CDT Office Visit [facility] [address] [place] [phone] Vianey Llanes, NEMATOLOGIST-ART CONSULTANT [address] [place] [address] 03/15/2025 10:30 AM CDT Clinical Support [facility] [address] [place] [address] documented as of this encounter Procedures Procedure Name Priority Date/Time Associated Diagnosis Comments SARS-COV-2 (COVID-19) PANEL (SOIL) Routine 03/06/2021 6:11 AM CDT Pre-op exam SARS-COV-2 (COVID-19) IN HOUSE Routine 03/06/2021 6:11 AM CDT Pre-op exam documented in this encounter Results * SARS-COV-2 (COVID-19) IN HOUSE (03/06/2021 6:11 AM CDT) COVID-19 PCR Not detected Not detected 03/07/2021 5:24 AM CDT [facility]CRO[facility] Microbiology SPECIMEN FROM NASOPHARYNGEAL STRUCTURE / Unknown Collection / Unknown 03/06/2021 6:11 AM CDT 03/06/2021 8:43 AM CDT Narrative [facility] - 03/07/2021 5:24 AM CDT This nucleic acid amplification assay performance was validated by [facility]. This test has been [...] Mendoza MD LAB - MICROBIOLOGY O RDERABLES [facility] [address] [place], [place] [address], [facility] [phone] documented in this encounter Visit Diagnoses Diagnosis Pre-op exam Preoperative examination, unspecified documented in this encounter Additional Health Concerns Infection Onset Date Last Indicated Resolved Time COVID-19 Under Investigation 03/06/2021 03/06/2021 03/07/2021 5:24 AM CDT documented as of this encounter
--- OUTSIDE RECORDS SUMMARY | 2024-11-04 23:55 | XMS_ITS | Encounter Summary ---
Author Organization [facility] Address [address] [facility] [place] [address] Care Team Providers Care Field Counsel Name Role Phone Unavailable Primary Care Provider Unavailabl e Reason for Visit * Reason Comments Obesity Follow Up Encounter Details Date Type Department Care Team (Late st Contact Info) Description 01/01/2021 1:00 PM FLOWER BUNCHER OR PICKER Video Visit [facility] [address] [place] [phone] [place] Mendo[place] [id number] [place] [phone] Tram Pemberton, FINANCIAL PROJECT MANAGER-UTILITY FORESTER [address] [address] Morbid obesity (HCC) ; Body mass index [...] Sex Assigned at Female 11/25/2020 1:10 PM FLOWER BUNCHER OR PICKER Gender Identity Female 11/25/2020 1:10 PM FLOWER BUNCHER OR PICKER Sexual Orientation Straight 02/02/2021 4 :18 PM CDT documented as of this encounter Last Filed Vital Signs Vital Sign Reading Time Taken Comments Blood Pressure - - Pulse - - Temperature - - Respiratory Rate - - Oxygen Saturation - - Inhaled Oxygen Concentration - - Weight 109.6 kg (241 lb 9.6 oz) 12:00 PM FLOWER BUNCHER OR PICKER per pt Height 160 cm (5' 3 ) 01/01/2021 12:00 PM FLOWER BUNCHER OR PICKER Body Mass Index 42.8 01/01/2021 12:00 PM FLOWER BUNCHER OR PICKER documented in this encounter Progress Notes * Tram Pemberton APRN-CNP - 01/01/2021 7:59 AM CST [facility] at [address] [address] . . Date of encounter: 01/01/2021 Provider: SANGEETHA Rai Patient: Maria Del Carmen Ray CSN: [id number] Specialty: Bariatric Surgery Date of : 1975 [...] you have an unusual work schedule? no [place] Sleepiness Scale total points: 1 No past [...] file Gets together: Not on file Attends sabianist service: Not on file Active member of [...] ??? vitamin D, ergocalciferol, (DRISDOL) 1.25 MG (43152 UT) capsule Take 1 capsule by mouth [...] in Epic SANGEETHA Rai CC: SANGEETHA Kumar ER BUNCHER OR PICKER documented in this encounter Plan of Treatment Upcoming Encounters Date Type Department Care Team (Late st Contact Info) Description 03/15/2025 10:00 AM CDT Office Visit [facility] [address] [place] [phone] Vianey Llanes APRN-UTILITY FORESTER [address] [place], [place] [address] 03/15/2025 10:30 AM CDT Clinical Support [facility] [address] [place] [address] documented as of this encounter Visit Diagnoses [...]
--- OUTSIDE RECORDS SUMMARY | 2024-11-04 23:55 | XMS_ITS | Encounter Summary ---
Author Organization [facility] Address [address] [place] [address] Care Team Providers Care Rn Ostomy Name Role Phone Unavailable Primary Care Provider Unavailabl e Reason for Visit * Auth/Cert Specialty Diagnoses / Procedures Referred By Veronica bonner Referred To Contact Diagnoses Gastroesophageal reflux disease, unspecified whether esophagitis present Gastroesophageal reflux disease, unspecified whether esophagitis present [K21.9] Procedures ESOPHAGOGASTRODUODENOSCOPY (EGD) BIOPSY Referral ID Status Reason Start Date Expiration Date Visits Re quested Visits Authorized [id number] 1 1 Encounter Details Date Type Department Care Team (Late st Contact Info) Description 02/23/2021 3:47 PM CDT Anesthesia Event [facility] [address] [place], [place] [address] Roverto Novak MD [address] [place] [address] Aysha Evans MD [address] [facility] [address] [place] [address] Anesthesia Record Procedure Summary Procedure [...] Sex Assigned at Female 11/25/2020 1:10 PM DATA COMMUNICATIONS TECHNICIAN Gender Identity Female 11/25/2020 1:10 PM DATA COMMUNICATIONS TECHNICIAN Sexual Orientation Straight 02/02/2021 4: 18 [...] this encounter Progress Notes * Samm Alford APRN-HANDBOOK WRITER - 02/23/2021 4:25 PM CDT ANESTHESIA POSTOP [...] COMPLICATIONS: No complications documented. * Amy Wong APRN-INFORMATICS DEVELOPER - 02/23/2021 12:10 PM CDT ANESTHESIA PREOPERATIVE [...] Plan was discussed with the anesthesiologist and HANDBOOK WRITER. BMI, Height, Weight Tobacco History Estimated body [...] Anesthesia Transfer of Care - Dima Palacios APRN-HANDBOOK WRITER - 02/23/2021 4:14 PM CDT ANESTHESIA TRANSFER [...] pulse oximetry, frequent blood pressure checks and manager monitoring Complications: None Comments: HR 65 BP 119/70 [...] 03/15/2025 10:00 AM CDT Office Visit [facility] [address] [place] [phone] Vianey Llanes, OCTAVE BOARD RACKER-INFORMATICS DEVELOPER [address] [place], [place] [phone] 03/15/2025 10:30 AM CDT Clinical Support [facility] [address] [place] [phone] documented as of this encounter Visit Diagnoses [...]
--- OUTSIDE RECORDS SUMMARY | 2024-11-04 23:55 | XMS_ITS | Encounter Summary ---
Author Organization [facility] Address [address] [place] [address] Care Team Providers Care Production Analyst Name Role Phone Unavailable Primary Care Provider Unavailabl e Reason for Visit * Reason Onset Date Comments General 01/09/2021 Encounter Details Date Type Department Care Team (Late st Contact Info) Description 01/09/2021 Telephone [facility] [address] [place] [phone] Tram Pemberton, BRIDGE GAME DIRECTOR-[facility] [address] [address] General Social History Tobacco Use Types Packs/Day Years Used Date Smoking Tobacco: Former Cigarettes Q uit: 06/2020 Smokeless Tobacco: Never Alcohol Use Standard Drinks/Week Comments Yes 0 (1 standard drink = 0.6 oz pur e alcohol) OCC. Sex and Gender Information Value Date Recorded Sex Assigned at Female 11/25/2020 1:10 PM TUBE SPLICER Gender Identity Female 11/25/2020 1:10 PM TUBE SPLICER Sexual Orientation Straight 02/02/2021 4: 18 PM CDT documented as of this encounter Miscellaneous Notes * Telephone Encounter - Chantelle Patricia CNA - 01/09/2021 10:18 AM TUBE SPLICER Patient called wanting to inform you that she completed the nicotine test yesterday should be expecting results soon. SPLICER documented in this encounter Plan of Treatment Upcoming Encounters Date Type Department Care Team (Late st Contact Info) Description 03/15/2025 10:00 AM CDT Office Visit [facility] [address] [place] [phone] Vianey Llanes, BRIDGE GAME DIRECTOR-LIVE HANGER [address] [place], [place] [phone] 03/15/2025 10:30 AM CDT Clinical Support [facility] [address] [place] [phone] documented as of this encounter Visit Diagnoses Not on filedocumented in this encounter
--- OUTSIDE RECORDS SUMMARY | 2024-11-04 23:55 | XMS_ITS | Encounter Summary ---
Author Organization [facility] Address [address] [place] [address] Care Team Providers Care Propulsion Machinery Service Engineer Name Role Phone Unavailable Primary Care Provider Unavailabl e Encounter Details Date Type Department Care Team (Late st Contact Info) Description 09/17/2020 2:30 PM TOP COLLAR BASTER Video Visit [facility] [address] [place] [address] [place] [address] [phone] Morbid obesity (HCC) Social History Tobacco Use Types Packs/Day Years Used Date Smoking Tobacco: Former Cigarettes Q uit: 06/2020 Smokeless Tobacco: Never Alcohol Use Standard Drinks/Week Comments Yes 14 (1 standard drink = 0.6 oz pu re alcohol) Sex and Gender Information Value Date Recorded Sex Assigned at Female 11/25/2020 1:10 PM TOP COLLAR BASTER Gender Identity Female 11/25/2020 1:10 PM TOP COLLAR BASTER Sexual Orientation Straight 02/02/2021 4: 18 PM CDT documented as of this encounter Last Filed Vital Signs Vital Sign Reading Time Taken Comments Blood Pressure - - Pulse - - Temperature - - Respiratory Rate - - Oxygen Saturation - - Inhaled Oxygen Concentration - - Weight 112.9 kg (249 lb) 09/17/2020 10:59 AM TOP COLLAR BASTER Height 160 cm (5' 3 ) 09/17/2020 10:59 AM TOP COLLAR BASTER Body Mass Index 44.11 09/17/2020 10:59 AM TOP COLLAR BASTER documented in this encounter Progress Notes * [...] to the billing and collection practices of [facility]. Patient location: Home This encounter was performed [...] visits per protocol ___ Sasha Pineda RD/SIN COLLAR BASTER documented in this encounter Plan of Treatment Upcoming Encounters Date Type Department Care Team (Late st Contact Info) Description 03/15/2025 10:00 AM CDT Office Visit [facility] [address] [place] [address] Vianey Llanes, SUGAR PRESSER-ENVELOPE STUFFER [address] [place] [address] 03/15/2025 10:30 AM CDT Clinical Support [facility] [address] [place] [address] documented as of this encounter Visit Diagnoses Diagnosis Morbid obesity (HCC)- Primary Morbid obesity documented in this encounter
--- OUTSIDE RECORDS SUMMARY | 2024-11-04 23:55 | XMS_ITS | Encounter Summary ---
Author Organization [facility] Address [address] [place] [address] Care Team Providers Care Pump House Engineer Name Role Phone Unavailable Primary Care Provider Unavailabl e Reason for Visit * Auth/Cert Specialty Diagnoses / Procedures Referred By Veronica bonner Referred To Contact Diagnoses Morbid obesity (HCC) Morbid obesity [E66.01] Procedures LAPAROSCOPIC GASTRECTOMY (LONGITUDINAL/SLEEVE) Referral ID Status Reason Start Date Expiration Date Visits Re quested Visits Authorized [id number] 1 1 Encounter Details Date Type Department Care Team (Late st Contact Info) Description 03/09/2021 7:30 AM CDT - 03/09/2021 9:18 AM CDT Surgery [facility] [address] [place] [address] Rehan Mendoza MD [id number] [place] [id number] LAPAROSCOPIC SLEEVE GASTRECTOMY Surgery Details Date/Time Status Location OR Service Patient Class Case Class Case Type Trauma Case? 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 Pain management : D/C FINANCE DIRECTOR, start PO. Respiratory management: Aggressive I/S, Resp [...] pain. Max of 6 tabs in 24hrs. [employer] capsule Take 1 (one) capsule by mouth once daily ursodiol 300 MG capsule Commonly known as: Actigall Take 1 (one) capsule by mouth 2 times daily for 90 days Do Not start until 1 week post op. Reasons:Post op laproscopic sleeve gastrectomy STOP taking these medications scopolamine 1 MG patch Commonly known as: Transderm-Scop vitamin D (ergocalciferol) 1.25 MG (61923 UT) capsule Commonly known as: Drisdol CONDITION ON DISCHARGE: Stable. CC: Rose Marie Norton, BURT-ROCK PICKER documented in this encounter Medications at Time [...] 24hrs. 12 tablet 02/27/2021 04/10/2021 Probiotic Product (SnapLayout) capsuleIndications: Bariatric surgery status Take 1 (one) [...] 8:25 AM CDT Pt screened by the planner chief via record review. BNA score is <10. [...] from the original note were not included. [facility] [place] [address] . . Date of encounter: 03/04/2021 Provider: Dr. Rehan Mendoza Patient: Maria Del Carmen Ray CSN: [id number] Specialty: Bariatric Surgery Date of : 1975 [...] you have an unusual work schedule? no [place] Sleepiness Scale total points: 1 Past Medical [...] Gatherings with Friends and Family: ??? Attends Zoroastrianism Services: ??? Active Member of Clubs or [...] Reasons: Gastroesophageal Reflux Disease ??? Probiotic Product (SnapLayout) capsule Take 1 (one) capsule by mouth [...] RBC, HGB, HCT, PLTCOUNT in the last 31911 hours. No results for input(s): SODIUM, POTASSIUM, CO2, BUN, CREATININE in the last 10959 hours. Invalid input(s): CLORIDE No results for input(s): GLUCOSE in the last 60268 hours. No results for input(s): AST, ALT in the last 98665 hours. No results for input(s): LDL, HDL, TRIG, TSH in the last 77122 hours. No results for input(s): HGBA1C in the last 96790 hours. No results for input(s): PT, PTT, INR, TSH in the last 56543 hours. No results for input(s): TSH in the last 88876 hours. No results for input(s): IRON in the last 04337 hours. No results for input(s): [id number] in the last 91089 hours. No results for input(s): VITAMINA in the last 66211 hours. No results for input(s): IRON in the last 32445 hours. No results for input(s): VITK1 in the last 66671 hours. No results for input(s): [id number] in the last 92299 hours. No results for input(s): ALPHATOCOPH in the last 58700 hours. No results for input(s): GAMMATOCOPH in the last 22028 hours. No results for input(s): MAGMGDL in the last 04908 hours. No results for input(s): PHOS in the last 59910 hours. Some lab results will be in [...] Laparoscopic Sleeve Gastrectomy Date: 03/09/2021 Place: At [facility]. Patient should qualify for staying more than 2 midnights in hospital. Patient education, risk explained and consent : she meets the criteria as set by the National [place] of Health that recommends bariatric surgeryon people [...] diet, andhaving very close follow-up with a photo equipment technician and me. In addition she must continue [...] has attended pre operative education class by health program analyst and the dietitian, but she will have additional education provided by the health program analyst and photo equipment technician at [facility]. Because of the significant changes in her eating habits she will have to see a photo equipment technician following surgery. I have informed her that [...] to the billing and collection practices of [facility]. Patient location: Home This encounter [...] ??? vitamin D, ergocalciferol, (DRISDOL) 1.25 MG (86514 UT) capsule Take 1 capsule by mouth [...] HDL, LDLCALC, VLDL, CHOLHDLRATIO in the last 35616 hours. No results for input(s): TSH, F4CHZTF, T4FREE, K9ZTPUB in the last 63270 hours. No results for input(s): AMYLASE, LIPASE, FERRITIN, IRON in the last 47018 hours. Invalid input(s): SATURATION ASSESSMENT AND PLAN [...] Role: * Rehan Mendoza MD - Primary ROD BUSTER HELPER: Registered Nurse Last Repairer: Crista Ventura RN Scrub Person: Gudelia Vance LPN Security Software Engineer Orientee: Priya Hurtado RN PREOPERATIVE DIAGNOSIS: Refractory [...] area of the pylorus. The balloon measured 32-[place]an in diameter to act as a stentfor [...] Description 03/15/2025 10:00 AM CDT Office Visit [facility] [address] [place] [address] Vianey Llanes, [employer] WINDER-ROCK PICKER [address] [place] [address] 03/15/2025 10:30 AM CDT Clinical Support [facility] [address] [place] [phone] documented as of this encounter Procedures Procedure [...] 03/09/2021 9:05 AM CDT Morbid obesity (HCC) [place] LAP SLEEVE GASTRECTOMY 03/09/2021 7:34 AM CDT [...] - 125 mg/dL 03/10/2021 11:45 AM CDT [facility] Specimen Type Arterial/C apillary 03/10/2021 11:45 AM CDT [facility] Blood BLOOD SPECIMEN / Unknown 03/10/2021 11:41 AM CDT 03/10/2021 11:45 AM CDT Rehan Mendoza MD LAB - POINT OF CARE ORDERABLES [facility] [address] * GLUCOSE - POINT OF CARE (03/10/2021 9:16 AM CDT) Glucose WB/POC 106 70 - 125 mg/dL 03/10/2021 9:17 AM CDT [facility] Specimen Type Arterial/C apillary 03/10/2021 9:17 AM CDT [facility] Blood BLOOD SPECIMEN / Unknown 03/10/2021 9:16 AM CDT 03/10/2021 9:17 AM CDT Rehan Mendoza MD LAB - POINT OF CARE ORDERABLES Performing Organization Address [facility] Co de Phone Number [facility] [address] [place] [address] * GLUCOSE - POINT OF CARE (03/10/2021 4:37 AM CDT) Glucose WB/POC 84 70 - 125 mg/dL 03/10/2021 4:44 AM CDT [facility] Specimen Type Arterial/C apillary 03/10/2021 4:44 AM CDT [facility] Blood BLOOD SPECIMEN / Unknown 03/10/2021 4:37 AM CDT 03/10/2021 4:44 AM CDT Rehan Mendoza MD LAB - POINT OF CARE ORDERABLES Performing Organization Address [facility] de Phone Number [facility] [address] [place] [address] * PHOSPHORUS BLOOD (03/10/2021 4:13 AM CDT) Phosphorus 2.5 2.3 - 4.7 mg/dL 03/10/2021 4:58 AM CDT [facility] Blood BLOOD SPECIMEN / Unknown Lab Venipuncture / Unknown 03/10/2021 4:13 AM CDT 03/10/2021 4:33 AM CDT Rehan Mendoza MD LAB - CHEMISTRY KARLEE AVINA Performing Organization Address [facility] Co de Phone Number [facility] [address] * MAGNESIUM BLOOD (03/10/2021 4:13 AM CDT) Magnesium 2.1 1.6 - 2.6 mg/dL 03/10/2021 4:58 AM CDT [facility] Blood BLOOD SPECIMEN / Unknown Lab Venipuncture / Unknown 03/10/2021 4:13 AM CDT 03/10/2021 4:33 AM CDT Rehan Mendoza MD LAB - CHEMISTRY KARLEE Burnham Organization Address City/State/ZIP Co de Phone Number [facility] [address] * (ABNORMAL) COMPREHENSIVE METABOLIC PANEL (03/10/2021 4:13 AM CDT) [facility] Signature Glucose 101 70 - 125 mg/dL 03/10/2021 4:57 AM T [facility] Sodium 139 136 - 145 mmol/L 03/10/2021 4:57 AM T [facility] Potassium 3.5 3.4 - 4.5 mmol/L 03/10/2021 4:57 AM T [facility] Chloride 106 98 - 107 mmol/L 03/10/2021 4:57 AM T [facility] CO2 22 22 - 29 mmol/L 03/10/2021 4:57 AM T [facility] Calcium 8.7 8.4 - 10.2 mg/dL 03/10/2021 4:57 AM T [facility] Anion Gap 15 10 - 20 mmol/L 03/10/2021 4:57 AM T [facility] BUN 8.7(L) 9.8 - 20.1 mg/dL 03/10/2021 4:57 AM T [facility] Creatinine 0.91 0.57 - 1.11 mg/dL 03/10/2021 4:57 AM T [facility] eGFR by MDRD >60 >60 mL/min/1.7 3m2 03/10/2021 4:57 AM T [facility] eGFR by MDRD >60 >60 mL/min/1.7 3m2 03/10/2021 4:57 AM T [facility] Alkaline Phosphatase 47 40 - 150 U/L 03/10/2021 4:57 AM T [facility] ALT 54 5 - 55 U/L 03/10/2021 4:57 AM T [facility] AST 52(H) 5 - 34 U/L 03/10/2021 4:57 AM T [facility] Protein Total 6.2(L) 6.4 - 8.3 gm/dL 03/10/2021 4:57 AM T [facility] Albumin 3.4(L) 3.5 - 5.0 gm/dL 03/10/2021 4:57 AM CDT [facility] Globulin Total 2.8 2.6 - 4.0 gm/dL 03/10/2021 4:57 AM CDT [facility] Albumin/Globulin Ratio 1.2 0.9 - 1.6 03/10/2021 4:57 AM CDT [facility] Bilirubin Total 0.6 0.2 - 1.2 mg/dL 03/10/2021 4:57 AM CDT [facility] Blood BLOOD SPECIMEN / Unknown Lab Venipuncture / Unknown 03/10/2021 4:13 AM CDT 03/10/2021 4:33 AM CDT Rehan Mendoza MD LAB - CHEMISTRY ORDE FABRICE [facility] [place] Organization Address City/State/[facility] Co de Phone Number [facility] [address] * (ABNORMAL) CBC W AUTO DIFFERENTIAL (03/10/2021 4:13 AM CDT) WBC 10.7(H) 4.0 - 10.0 x10E9/L 03/10/2021 4:37 AM CDT [facility] RBC 4.37 3.93 - 5.22 x10E12/L 03/10/2021 4:37 AM CDT [facility] Hemoglobin 13.3 11.2 - 15.7 gm/dL 03/10/2021 4:37 AM CDT [facility] Hematocrit 39.7 34.1 - 44.9 % 03/10/2021 4:37 AM CDT [facility] MCV 90.8 78.0 - 100.0 fl 03/10/2021 4:37 AM CDT [facility] MCH 30.4 25.6 - 34.0 pg 03/10/2021 4:37 AM CDT [facility] MCHC 33.5 32.3 - 36.5 gm/dL 03/10/2021 4:37 AM CDT [facility] RDW 13.3 11.6 - 14.4 % 03/10/2021 4:37 AM CDT [facility] MPV 10.1 9.4 - 12.4 fl 03/10/2021 4:37 AM CDT [facility] Platelet Count 243 163 - 369 x10E9/L 03/10/2021 4:37 AM [facility] Neutrophils % 74.0 40.0 - 75.0 % 03/10/2021 4:37 AM [facility] Lymphocytes % 19.2(L) 19.3 - 53.1 % 03/10/2021 4:37 AM [facility] Monocytes % 6.6 4.7 - 12.5 % 03/10/2021 4:37 AM [facility] Eosinophils % 0.0(L) 0.7 - 7.0 % 03/10/2021 4:37 AM [facility] Basophils % 0.1 0.1 - 1.2 % 03/10/2021 4:37 AM [facility] Immature Granulocytes 0.1 0 - 0.5 % 03/10/2021 4:37 AM [facility] Neutrophil Absolute 7.88(H) 1.56 - 6.13 x10E9/L 03/10/2021 4:37 AM [facility] Lymphocytes Absolute 2.05 1.18 - 3.74 x10E9/L 03/10/2021 4:37 AM [facility] Monocytes Absolute 0.70 0.24 - 0.86 x10E9/L 03/10/2021 4:37 AM [facility] Eosinophils Absolute 0.00(L) 0.04 - 0.54 x10E9/L 03/10/2021 4:37 AM [facility] Basophils Absolute 0.01 0.01 - 0.08 x10E9/L 03/10/2021 4:37 AM [facility] Immature Granulocytes Absolute 0.01 0 - 0.03 x10E9/L 03/10/2021 4:37 AM [facility] nRBC Auto 0 <=0 /100 WBC 03/10/2021 4:37 AM [facility] nRBC Absolute 0.00 <=0 x10E9/L 03/10/2021 4:37 AM [facility] Blood BLOOD SPECIMEN / Unknown Lab Venipuncture / Unknown 03/10/2021 4:13 AM CDT 03/10/2021 4:33 AM T Rehan Mendoza MD LAB - HEMATOLOGY ORD ERABLES Performing Organization Address [facility] Co de Phone Number [facility] [address] * GLUCOSE - POINT OF CARE (03/10/2021 12:42 AM CDT) Glucose WB/POC 79 70 - 125 mg/dL 03/10/2021 12:49 AM CDT [facility] Specimen Type Arterial/C apillary 03/10/2021 12:49 AM CDT [facility] Blood BLOOD SPECIMEN / Unknown 03/10/2021 12:42 AM CDT 03/10/2021 12:49 AM CDT Rehan Mendoza MD LAB - POINT OF CARE ORDERABLES Performing Organization Address [facility] Co de Phone Number [facility] [address] [place] [address] * GLUCOSE - POINT OF CARE (03/09/2021 8:50 PM CDT) Glucose WB/POC 86 70 - 125 mg/dL 03/09/2021 9:04 PM CDT [facility] Specimen Type Arterial/C apillary 03/09/2021 9:04 PM CDT [facility] Blood BLOOD SPECIMEN / Unknown 03/09/2021 8:50 PM CDT 03/09/2021 9:04 PM CDT Rehan Mendoza MD LAB - POINT OF CARE ORDERABLES Performing Organization Address [facility] Co de Phone Number [facility] [address] * MAGNESIUM BLOOD (03/09/2021 7:52 PM CDT) Magnesium 2.4 1.6 - 2.6 mg/dL 03/09/2021 8:16 PM CDT [facility] Blood BLOOD SPECIMEN / Unknown Lab Venipuncture / Unknown 03/09/2021 7:52 PM CDT 03/09/2021 7:56 PM CDT Rehan Mendoza MD LAB - CHEMISTRY ORDE RABLES Performing Organization Address City/[facility]/ZIP Co de Phone Number [facility] [address] * GLUCOSE - POINT OF CARE (03/09/2021 4:20 PM CDT) Glucose WB/POC 98 70 - 125 mg/dL 03/09/2021 4:30 PM CDT [facility] Specimen Type Arterial/C apillary 03/09/2021 4:30 PM CDT [facility] Blood BLOOD SPECIMEN / Unknown 03/09/2021 4:20 PM CDT 03/09/2021 4:29 PM CDT Rehan Mendoza MD LAB - POINT OF CARE ORDERABLES Performing Organization Address [facility] Co de Phone Number [facility] [address] [place] [address] * GLUCOSE - POINT OF CARE (03/09/2021 12:43 PM CDT) Glucose WB/POC 103 70 - 125 mg/dL 03/09/2021 12:44 PM CDT [facility] Specimen Type Arterial/C apillary 03/09/2021 12:44 PM CDT [facility] Blood BLOOD SPECIMEN / Unknown 03/09/2021 12:43 PM CDT 03/09/2021 12:44 PM CDT Rehan Mendoza MD LAB - POINT OF CARE ORDERABLES Performing Organization Address City/[facility] Co de Phone Number [facility] [address] [place] [address] * (ABNORMAL) GLUCOSE - POINT OF CARE (03/09/2021 11:54 AM CDT) Glucose WB/POC 66(L) 70 - 125 mg/dL 03/09/2021 12:07 PM CDT [facility] Specimen Type Arterial/C apillary 03/09/2021 12:07 PM CDT [facility] Blood BLOOD SPECIMEN / Unknown 03/09/2021 11:54 AM CDT 03/09/2021 12:07 PM CDT Rehan Mendoza MD LAB - POINT OF CARE ORDERABLES Performing Organization Address [facility] Co de Phone Number [facility] [address] [place] [address] * PHOSPHORUS BLOOD (03/09/2021 10:05 AM CDT) Phosphorus 3.8 2.3 - 4.7 mg/dL 03/09/2021 10:43 AM CDT [facility] Blood BLOOD SPECIMEN / Unknown Lab Venipuncture / Unknown 03/09/2021 10:05 AM CDT 03/09/2021 10:18 AM CDT Rehan Mendoza MD LAB - CHEMISTRY KARLEE AVINA Performing Organization Address [facility] Co de Phone Number [facility] [address] [place] [address] * (ABNORMAL) MAGNESIUM BLOOD (03/09/2021 10:05 AM CDT) Magnesium 1.5(L) 1.6 - 2.6 mg/dL 03/09/2021 10:43 AM CDT [facility] Blood BLOOD SPECIMEN / Unknown Lab Venipuncture / Unknown 03/09/2021 10:05 AM CDT 03/09/2021 10:18 AM CDT Rehan Mendoza MD LAB - CHEMISTRY KARLEE AVINA Performing Organization Address [facility] Co de Phone Number [facility] [address] [place] [address] * (ABNORMAL) COMPREHENSIVE METABOLIC PANEL (03/09/2021 10:05 AM CDT) Glucose 107 70 - 125 mg/dL 03/09/2021 10:43 AM CDT [facility] Sodium 139 136 - 145 mmol/L 03/09/2021 10:43 AM CDT [facility] Potassium 3.8 3.4 - 4.5 mmol/L 03/09/2021 10:43 AM CDT [facility] Chloride 107 98 - 107 mmol/L 03/09/2021 10:43 AM [facility] CO2 22 22 - 29 mmol/L 03/09/2021 10:43 AM [facility] Calcium 8.3(L) 8.4 - 10.2 mg/dL 03/09/2021 10:43 AM [facility] Anion Gap 14 10 - 20 mmol/L 03/09/2021 10:43 AM [facility] BUN 11.7 9.8 - 20.1 mg/dL 03/09/2021 10:43 AM [facility] Creatinine 0.96 0.57 - 1.11 mg/dL 03/09/2021 10:43 AM [facility] eGFR by MDRD >60 >60 mL/min/1.7 3m2 03/09/2021 10:43 AM [facility] eGFR by MDRD >60 >60 mL/min/1.7 3m2 03/09/2021 10:43 AM [facility] Alkaline Phosphatase 45 40 - 150 U/L 03/09/2021 10:43 AM [facility] ALT 50 5 - 55 U/L 03/09/2021 10:43 AM [facility] AST 42(H) 5 - 34 U/L 03/09/2021 10:43 AM [facility] Protein Total 5.9(L) 6.4 - 8.3 gm/dL 03/09/2021 10:43 AM [facility] Albumin 3.4(L) 3.5 - 5.0 gm/dL 03/09/2021 10:43 AM [facility] Globulin Total 2.5(L) 2.6 - 4.0 gm/dL 03/09/2021 10:43 AM [facility] Albumin/Globulin Ratio 1.4 0.9 - 1.6 03/09/2021 10:43 AM [facility] Bilirubin Total 0.6 0.2 - 1.2 mg/dL 03/09/2021 10:43 AM [facility] Blood BLOOD SPECIMEN / Unknown Lab Venipuncture / Unknown 03/09/2021 10:05 AM CDT 03/09/2021 10:18 AM T Rehan Mendoza MD LAB - CHEMISTRY ORDE FABRICE Performing Organization Address City/State/[facility] Co de Phone Number [facility] [address] * (ABNORMAL) CBC W AUTO DIFFERENTIAL (03/09/2021 10:05 AM CDT) [facility] Signature WBC 9.7 4.0 - 10.0 x10E9/L 03/09/2021 10:22 AM CDT [facility] RBC 4.19 3.93 - 5.22 x10E12/L 03/09/2021 10:22 AM CDT [facility] Hemoglobin 12.9 11.2 - 15.7 gm/dL 03/09/2021 10:22 AM CDT [facility] Hematocrit 38.6 34.1 - 44.9 % 03/09/2021 10:22 AM CDT [facility] MCV 92.1 78.0 - 100.0 fl 03/09/2021 10:22 AM CDT [facility] MCH 30.8 25.6 - 34.0 pg 03/09/2021 10:22 AM CDT [facility] MCHC 33.4 32.3 - 36.5 gm/dL 03/09/2021 10:22 AM CDT [facility] RDW 13.6 11.6 - 14.4 % 03/09/2021 10:22 AM CDT [facility] MPV 10.0 9.4 - 12.4 fl 03/09/2021 10:22 AM CDT [facility] Platelet Count 220 163 - 369 x10E9/L 03/09/2021 10:22 AM CDT [facility] Neutrophils % 85.4(H) 40.0 - 75.0 % 03/09/2021 10:22 AM CDT [facility] Lymphocytes % 11.8(L) 19.3 - 53.1 % 03/09/2021 10:22 AM CDT [facility] Monocytes % 2.4(L) 4.7 - 12.5 % 03/09/2021 10:22 AM CDT [facility] Eosinophils % 0.2(L) 0.7 - 7.0 % 03/09/2021 10:22 AM CDT [facility] Basophils % 0.1 0.1 - 1.2 % 03/09/2021 10:22 AM CDT [facility] Immature Granulocytes 0.1 0 - 0.5 % 03/09/2021 10:22 AM CDT [facility] Neutrophil Absolute 8.29(H) 1.56 - 6.13 x10E9/L 03/09/2021 10:22 AM CDT [facility] Lymphocytes Absolute 1.14(L) 1.18 - 3.74 x10E9/L 03/09/2021 10:22 AM CDT [facility] Monocytes Absolute 0.23(L) 0.24 - 0.86 x10E9/L 03/09/2021 10:22 AM CDT [facility] Eosinophils Absolute 0.02(L) 0.04 - 0.54 x10E9/L 03/09/2021 10:22 AM CDT [facility] Basophils Absolute 0.01 0.01 - 0.08 x10E9/L 03/09/2021 10:22 AM CDT [facility] Immature Granulocytes Absolute 0.01 0 - 0.03 x10E9/L 03/09/2021 10:22 AM CDT [facility] nRBC Auto 0 <=0 /100 WBC 03/09/2021 10:22 AM CDT [facility] nRBC Absolute 0.00 <=0 x10E9/L 03/09/2021 10:22 AM CDT [facility] Blood BLOOD SPECIMEN / Unknown Lab Venipuncture / Unknown 03/09/2021 10:05 AM CDT 03/09/2021 10:18 AM CDT Rehan Mendoza MD LAB - HEMATOLOGY ORD ERABLES Performing Organization Address [facility] de Phone Number [facility] [address] * GROSS + MICRO EXAM (ILL) (03/09/2021 9:05 AM CDT) Case Report Surgical Pathology Report ? Case: [id number] ? Authorizing Provider: ??Rehan Mendoza MD ?Collected: ? 03/09/2021 09:05 AM ? Ordering Location: ? [facility] ?Received: ?03/09/2021 02:06 PM ? Pathologist: ? Monica Martinez MD ? Specimen: ?Stomach Resect Sub, stomach remnant - sleeve gastrectomy ? 03/11/2021 12:43 PM [facility] Final Diagnosis Stomach remnant, sleeve gastrectomy: - No significant histologic abnormality. 03/11/2021 12:43 PM [facility] Microscopic Description and Comment Microscopic examination is performed and substantiates the above diagnosis. 03/11/2021 12:43 PM [facility] Clinical History Morbid obesity. 03/11/2021 12:43 PM [facility] Gross Description Received in formalin labeled Maria Del Carmen Ray, stomach remnant sleeve gastrectomy, stomach resec sub is a stapled pink gastric resection measuring 28.0 x 4.2 x3.0 cm. The specimen is received open 7 cm from one margin. The specimen is opened longitudinally to reveal unremarkable rugal folds without masses or lesions. Developmental Specialist sections are submitted in A1-A2. LS/scs 03/11/2021 12:43 PM [facility] Disclaimer The performance characteristics [...] stains prepared at [facility], [place]. [address] (CLIA# [id number]) unless otherwise specified. This case was interpreted by the [facility] Department of Pathology. When applicable, select reference laboratory testing is performed at the [facility], [address] [place] [address]. 03/11/2021 12:43 PM CDT [facility] Embedded Images 03/11/2021 12:43 PM CDT [facility] Pathology/Cytolo gy SPECIMEN FROM STOMACH OBTAINED BY PARTIAL GASTRECTOMY / Unknown 03/09/2021 9:05 AM CDT 03/09/2021 2:06 PM CDT Comment:Pre-op diagnosis: Morbid obesity [E66.01] Rehan Mendoza MD LAB - PATHOLOGY/CYTO LOGY ORDERABLES Performing Organization Address [facility] de Phone Number [facility] [address] documented in this encounter Visit Diagnoses [...] Given 03/09/2021 9:53 AM CDT 80 mg [employer] capsule 1 capsule 1 capsule, Oral, DAILY, [...] 1 dose, On Tue03/09/21 at 0600, See [employer] for renal dosing guidelines. 0753 ($ Given - Provider: David Burger, CONVOLUTE TUBE WINDER-SANITARY LANDFILL SUPERVISOR) acetaminophen (Ofirmev) injection 1,000 mg (COMPLETED) 1,000 mg, at 400 mL/hr, Intravenous, EVERY 6 HOURS, 2 doses, First dose on Tue03/09/21 at 1400, Last dose on Tue03/09/21 at 2000, See [employer] for renal dosing guidelines. 1347 ($ New [...] 0040 ($ Given - Provider: Luisa Alcantara, IRTA)0605 ($ Given - Provider: Luisa Alcantara, RITA) [...] ($ Given - Provider: Lyn Mcgraw, RITA) [employer] capsule 1 capsule 1 capsule, Oral, DAILY, [...] Alcantara RN)[phone] (Stopped - Provider: Luisa Alcantara RN)[phone] (Stopped - Provider: Lyn Mcgraw RN) metoclopramide [...]
--- OUTSIDE RECORDS SUMMARY | 2024-11-04 23:55 | XMS_ITS | Encounter Summary ---
Author Organization [facility] Address [address] [place] [address] Care Team Providers Care Radio Repair Teacher Name Role Phone Unavailable Primary Care Provider Unavailabl e Reason for Visit * Auth/Cert Specialty Diagnoses / Procedures Referred By Veronica bonner Referred To Contact Diagnoses Gastroesophageal reflux disease, unspecified whether esophagitis present Gastroesophageal reflux disease, unspecified whether esophagitis present [K21.9] Procedures ESOPHAGOGASTRODUODENOSCOPY (EGD) BIOPSY Referral ID Status Reason Start Date Expiration Date Visits Re quested Visits Authorized [id number] 1 1 Encounter Details Date Type Department Care Team (Late st Contact Info) Description 02/23/2021 12:01 PM CDT - 02/23/2021 5:25 PM CDT Hospital Encounter [facility] [address] [address] [place] [address] [phone] Surgery General Discharge Disposition: Home or Self Care Social History Tobacco Use Types Packs/Day Years Used Date Smoking Tobacco: Former Cigarettes Q uit: 06/2020 Smokeless Tobacco: Never Alcohol Use Standard Drinks/Week Comments Yes 14 (1 standard drink = 0.6 oz pu re alcohol) Sex and Gender Information Value Date Recorded Sex Assigned at Female 11/25/2020 1:10 PM SUPERVISOR TREE FRUIT AND NUT FARMING Gender Identity Female 11/25/2020 1:10 PM SUPERVISOR [employer] F[employer] Sexual Orientation Straight 02/02/2021 4: 18 PM [...] 03/04/2021 vitamin D, ergocalciferol, (DRISDOL) 1.25 MG (41843 UT) capsuleIndications:Vi tamin D Deficiency Take 1 capsule by mouth every 7 days Reasons: Vitamin D Deficiency 4 capsule 3 09/17/2020 03/10/2021 documented as of this encounter H&P Notes * Rehan Mendoza MD - 02/23/2021 1:40 PM CDT [facility] [place] [address] . . Date of encounter: 02/05/2021 Provider: Rehan Mendoza MD Patient: Maria Del Carmen Ray CSN: [id number] Specialty: Bariatric Surgery Date of : 1975 [...] you have an unusual work schedule? no [place] Sleepiness Scale total points: 1 Past Medical [...] Gatherings with Friends and Family: ??? Attends [employer] Services: ??? Active Member of Clubs or [...] ??? vitamin D, ergocalciferol, (DRISDOL) 1.25 MG (83119 UT) capsule Take 1 capsule by mouth [...] ??? vitamin D, ergocalciferol, (DRISDOL) 1.25 MG (83042 UT) capsule Take 1 capsule by mouth [...] No palpable visceromegaly. No palpableventral hernias. Skin: [place] and moist. No ulcers, rashes, or lesions. Extremities: Well perfused. No gross joint deformity noted Neurological: Cranial nerves 2-12 were grossly intact. Psychiatric: The patient's mood and affect appeared to be appropriate Labs No results for input(s): WBC, RBC, HGB, HCT, PLTCOUNT in the last 77566 hours. No results for input(s): SODIUM, POTASSIUM, CO2, BUN, CREATININE in the last 04209 hours. Invalid input(s): CLORIDE No results for input(s): GLUCOSE in the last 18330 hours. No results for input(s): AST, ALT in the last 71297 hours. No results for input(s): LDL, HDL, TRIG, TSH in the last 10240 hours. No results for input(s): HGBA1C in the last 78719 hours. No results for input(s): PT, PTT, INR, TSH in the last 25590 hours. No results for input(s): TSH in the last 96015 hours. No results for input(s): IRON in the last 02825 hours. No results for input(s): TRNSMFIK00 in the last 98790 hours. No results for input(s): VITAMINA in the last 42732 hours. No results for input(s): IRON in the last 08546 hours. No results for input(s): VITK1 in the last 95144 hours. No results for input(s): [id number] in the last 29113 hours. No results for input(s): ALPHATOCOPH in the last 36000 hours. No results for input(s): GAMMATOCOPH in the last 73738 hours. No results for input(s): MAGMGDL in the last 24382 hours. No results for input(s): PHOS in the last 89208 hours. Some lab results will be in [...] Role: * Rehan Mendoza MD - Primary RESIDENTIAL REAL ESTATE APPRAISER: Stable Hand: Arlette Menendez, RN Scrub Person: Catherine Gabriel [...] [facility] [address] [place] [phone] Vianey Llanes, BENCH REPAIR TECHNICIAN-ACTIVITIES VOLUNTEER [address] [place] [address] 03/15/2025 10:30 AM CDT Clinical Support [facility] [address] [place] [address] Scheduled Orders Name Type Priority Associated Diagnoses Orde r Schedule EGD GI Routine ONCE for 1 Occ urrences starting 02/23/2021 until 02/23/2021 documented as of this encounter Procedures Procedure Name Priority Date/Time Associated Diagnosis Comments GROSS + MICRO EXAM (ILL) Routine 02/23/2021 4:01 PM CDT Gastroesophageal reflux disease, unspecified whether esophagitis present IA EGD FLEX TRANSORAL W BX SNGL OR MULT 02/23/2021 3:47 PM CDT Gastroesophageal reflux disease, unspecified whether esophagitis present Special Needs ARRIVAL TIME:1230 documented in this encounter Results * GROSS + MICRO EXAM (ILL) (02/23/2021 4:01 PM CDT) Case Report Surgical Pathology Report ? Case: [id number] ? Authorizing Provider: ??Rehan Mendoza MD ?Collected: ? 02/23/2021 04:01 PM ? Ordering Location: ? [facility] ?Received: ?02/24/2021 09:34 AM ? Pathologist: ? Chuckie Lujan MD ? Specimen: ?Pylorus, pylorus biopsy to r/o hpylori ? 02/25/2021 9:22 AM T [facility] Final Diagnosis Stomach, pyloric, biopsy: - ANTRAL MUCOSA WITH NON-DIAGNOSTIC ABNORMALITY. - NO HELICOBACTER PYLORI ORGANISMS IDENTIFIED (H&E EXAM). 02/25/2021 9:22 AM [facility] Microscopic Description and Comment Lamina propria smooth muscle proliferation and sparse eosinophils and mononuclear chronic cells are seen. No active gastritis. Microscopic examination is performed and substantiates the above diagnosis. 02/25/2021 9:22 AM [facility] Clinical History Gastroesophageal reflux disease, unspecified whether esophagitis present. Per EMR, pyloric ulcer healed, no gastritis, normal EGD 02/25/2021 9:22 AM CDT [facility] Gross Description Received in formalin labeled Maria Del Carmen Campbellnings and pylorus biopsy are three pink-crow, soft irregular tissue fragments with an aggregate measurement of 0.6 x 0.3 x 0.25 cm, each measuring 0.3 cm in greatest dimension. Submitted in toto in A1. LS/lk 02/25/2021 9:22 AM CDT [facility] Disclaimer The performance characteristics of all immunohistochemical and indirect immunofluorescence stains (if any) cited in this report were determined by the Histopathology Laboratory of [facility]. Some of these tests were developed [...] H&E slides and special stains prepared at [facility], [place]. [address] (CLIA# [id number]) unless otherwise specified. This case was interpreted by the [facility] Department of Pathology. When applicable, select reference laboratory testing is performed at the [facility], [address] [place] [address]. 02/25/2021 9:22 AM CDT [facility] Embedded Images 02/25/2021 9:22 AM CDT [facility] Pathology/Cytology ENTIRE PYLORUS / Unknown 02/23/2021 4:01 PM CDT 02/24/2021 9:34 AM CDT Comment:Pre-op diagnosis: Gastroesophageal reflux disease, unspecified whether esophagitis present [K21.9] Rehan Mendoza MD LAB - PATHOLOGY/CYTO LOGY ORDERABLES [facility] [address] documented in this encounter Visit Diagnoses [...] [phone])[id number] (Rate Change - Provider: Dima Palacios APRN-SUPERVISOR BUILDING MAINTENANCE) PRN Medication Order 02/21/2021 02/22/2021 02/23/2021 ondansetron (Zofran) injection 4 mg 4 mg, Intravenous, ONCE PRN, Nausea/Vomiting, 1 dose, Starting on Tue02/23/21 at 1624, Until Tue02/23/21 at 1826, First choice, PACU documented in this encounter
--- OUTSIDE RECORDS SUMMARY | 2024-11-04 23:55 | XMS_ITS | Encounter Summary ---
Author Organization [facility] Address [address] [place] [address] Care Team Providers Care Engineering Technical Analyst Name Role Phone Unavailable Primary Care Provider Unavailabl e Reason for Visit * Reason Onset Date Comments General 02/05/2021 Encounter Details Date Type Department Care Team (Late st Contact Info) Description 02/05/2021 Telephone [facility] Services [address] [place] [phone] Rehan Mendoza MD [address] [place] [phone] General Social History Tobacco Use Types Packs/Day Years Used Date Smoking Tobacco: Former Cigarettes Q uit: 06/2020 Smokeless Tobacco: Never Alcohol Use Standard Drinks/Week Comments Yes 14 (1 standard drink = 0.6 oz pu re alcohol) Sex and Gender Information Value Date Recorded Sex Assigned at Female 11/25/2020 1:10 PM CLOTHES MARKER Gender Identity Female 11/25/2020 1:10 PM CLOTHES MARKER Sexual Orientation Straight 02/02/2021 4: 18 PM [...] C[facility] Health Weight Management Services [address] [place] [phone] Vianey Llanes, EMERGENCY VETERINARIAN-RANGE ECOLOGIST [address] [place], [place] [address] 03/15/2025 10:30 AM CDT Clinical Support [facility] Weight Management Services [address] [place] [phone] documented as of this encounter Visit Diagnoses Not on filedocumented in this encounter
--- OUTSIDE RECORDS SUMMARY | 2024-11-04 23:55 | XMS_ITS | Encounter Summary ---
Author Organization [facility] Address [address] [facility] [place] [address] Care Team Providers Care Environmental Marketer Name Role Phone Unavailable Primary Care Provider Unavailabl e Reason for Referral * Consultation (Routine) - Closed Specialty Diagnoses / Procedures Referred By Veronica t Referred To Contact Nutrition Services Diagnoses Body mass index (BMI) of 40.0-44.9 in adult (HCC) Morbid obesity (HCC) [place]endo[place] [id number] [place] [phone] Referral ID Status Reason Start Date Expiration Date V isits Requested Visits Authorized [id number] Closed Specialty Services Required 11/25/2020 11/25/2021 5 5 GRITY ENGINEER Encounter Details Date Type Department Care Team (Late st Contact Info) Description 11/25/2020 2:00 PM INTEGRITY ENGINEER Video Visit [facility] Weight Management Services [address] [place] [address] [place] [address] [phone] Body mass index (BMI) of [...] Sex Assigned at Female 11/25/2020 1:10 PM INTEGRITY ENGINEER Gender Identity Female 11/25/2020 1:10 PM INTEGRITY ENGINEER Sexual Orientation Straight 02/02/2021 4: 18 PM CDT documented as of this encounter Last Filed Vital Signs Vital Sign Reading Time Taken Comments Blood Pressure - - Pulse - - Temperature - - Respiratory Rate - - Oxygen Saturation - - Inhaled Oxygen Concentration - - Weight 109.8 kg (242 lb) 11/25/2020 1:12 PM INTEGRITY ENGINEER Height 160 cm (5' 3 ) 11/25/2020 1:12 PM INTEGRITY ENGINEER Body Mass Index 42.87 11/25/2020 1:12 PM INTEGRITY ENGINEER documented in this encounter Progress Notes * [...] to the billing and collection practices of [facility]. Patient location: work - private area This [...] visits per protocol ___ Sasha Pineda RD/SIN GRITY ENGINEER documented in this encounter Plan of Treatment Upcoming Encounters Date Type Department Care Team (Late st Contact Info) Description 03/15/2025 10:00 AM CDT Office Visit [facility] Weight Management Services [address] [place] [phone] Vianey Llanes, BURT-SENIOR CARE PROVIDER [address] [place], [place] [address] 03/15/2025 10:30 AM CDT Clinical Support [facility] Weight Management Services [address] [place] [phone] Scheduled Referrals Name Type Priority Associated Diagnoses [...]
--- OUTSIDE RECORDS SUMMARY | 2024-11-04 23:55 | XMS_ITS | Encounter Summary ---
Author Organization [facility] Address [address] [place] [address] Care Team Providers Care Pre Sales Network Engineer Name Role Phone Unavailable Primary Care Provider Unavailabl e Encounter Details Date Type Department Care Team (Late st Contact Info) Description 03/06/2021 6:43 AM CDT - 03/06/2021 11:59 PM CDT Hospital Encounter [facility] [address] [place] [address] Rehan Mendoza MD [address] [place] [phone] Discharge Disposition: Home or Self Care Social History Tobacco Use Types Packs/Day Years Used Date Smoking Tobacco: Former Cigarettes Q uit: 06/2020 Smokeless Tobacco: Never Alcohol Use Standard Drinks/Week Comments Not Currently 14 (1 standard drink = 0.6 oz pu re alcohol) Sex and Gender Information Value Date Recorded Sex Assigned at Female 11/25/2020 1:10 PM LEVEL VIAL GRINDER Gender Identity Female 11/25/2020 1:10 PM LEVEL VIAL GRINDER Sexual Orientation Straight 02/02/2021 4: 18 PM [...] 24hrs. 12 tablet 02/27/2021 04/10/2021 Probiotic Product ([employer]) capsuleIndications: Bariatric surgery status Take 1 (one) [...] 05/28/2021 vitamin D, ergocalciferol, (DRISDOL) 1.25 MG (87093 UT) capsuleIndications: Vitamin D Deficiency Take 1 [...] desk. Instructed patient must have responsible adult contract driver to take them home after procedure and listen to postop instructions. Instructed patient should not wear make up, nail taiwanese, hair products, lotion, powder, jewelry, contact lenses [...] said will have test performed at an [facility] Clinic or Hospital. Instructed test should be [...] 03/15/2025 10:00 AM CDT Office Visit [facility] [address] [place] [address] Vianey Llanes, NURSING HOME PHYSICIAN-RUBBER PRESS TENDER [address] [place] [address] 03/15/2025 10:30 AM CDT Clinical Support [facility] [address] [place] [address] documented as of this encounter Procedures Procedure Name Priority Date/Time Associated Diagnosis Comments BLOOD TYPE VERIFICATION Routine 03/06/2021 7:14 AM CDT TYPE + SCREEN PANEL Routine 03/06/2021 7 :12 AM CDT Pre-op exam documented in this encounter Results * BLOOD TYPE VERIFICATION (03/06/2021 7:14 AM CDT) ABO Rh O POS 03/06/2021 8:5 9 AM CDT [facility] Blood Bank BLOOD SPECIMEN / Unknown Lab Venipuncture / Unknown 03/06/2021 7:14 AM CDT 03/06/2021 7:17 AM CDT Aysha Evans MD LAB - BLOOD BANK ORD ESHA Performing Organization Address City/[facility]/ZIP Co de Phone Number [facility] [address] [place] [address] * TYPE + SCREEN PANEL (03/06/2021 7:12 AM CDT) ABO Rh O POS 03/06/2021 9:20 AM CDT [facility] Antibody Screen NEG 9:20 AM CDT [facility] Blood Bank BLOOD SPECIMEN / Unknown Lab Venipuncture / Unknown 03/06/2021 7:12 AM CDT 03/06/2021 7:17 AM CDT Aysha Evans MD LAB - BLOOD BANK ORD ESHA Performing Organization Address City/[facility] Co de Phone Number [facility] [address] [place] [address] documented in this encounter Visit Diagnoses Diagnosis Pre-op exam- Primary Preoperative examination, unspecified documented in this encounter Additional Health Concerns Infection Onset Date Last Indicated Resolved Time COVID-19 Under Investigation 03/06/2021 03/06/2021 03/07/2021 5:24 AM CDT documented as of this encounter
--- OUTSIDE RECORDS SUMMARY | 2024-11-04 23:55 | XMS_ITS | Encounter Summary ---
Author Organization [facility] Health Address [address] [place] [address] Care Team Providers Care Decay Control Operator Name Role Phone Unavailable Primary Care Provider Unavailabl e Reason for Visit * Reason Onset Date Comments Appointment 12/24/2020 Encounter Details Date Type Department Care Team (Late st Contact Info) Description 12/24/[address] [facility] Weight Management Services [address] [place] [phone] Tram Pemberton, GEOTECHNICAL LABORATORY TECHNICIAN-[facility] [address] [address] Appointment Social History Tobacco Use Types Packs/Day Years Used Date Smoking Tobacco: Former Cigarettes Q uit: 06/2020 Smokeless Tobacco: Never Alcohol Use Standard Drinks/Week Comments Yes 0 (1 standard drink = 0.6 oz pur e alcohol) OCC. Sex and Gender Information Value Date Recorded Sex Assigned at Female 11/25/2020 1:10 PM SERVER Gender Identity Female 11/25/2020 1:10 PM SERVER Sexual Orientation Straight 02/02/2021 4: 18 PM CDT documented as of this encounter Miscellaneous Notes * Telephone Encounter - Chantelle Patricia CNA - 12/24/2020 11:30 AM SERVER Patient left message to rescheduled appointments on 12/23/20. Attempted to contact her no answer left message for her to return call to clinic. ER documented in this encounter Plan of Treatment Upcoming Encounters Date Type Department Care Team (Late st Contact Info) Description 03/15/2025 10:00 AM CDT Office Visit [facility] Management Services [address] [place] [phone] Vianey Llanes, GEOTECHNICAL LABORATORY TECHNICIAN-SEAT TRIMMER [address] [place], [place] [phone] 03/15/2025 10:30 AM CDT Clinical Support [facility] [address] [place] [phone] documented as of this encounter Visit Diagnoses Not on filedocumented in this encounter
--- OUTSIDE RECORDS SUMMARY | 2024-11-04 23:55 | XMS_ITS | Encounter Summary ---
Author Organization [facility] Health Address [address] [place] [address] Care Team Providers Care Wash Barrel Leader Name Role Phone Unavailable Primary Care Provider Unavailabl e Reason for Visit * Reason Comments Obesity Follow Up Encounter Details Date Type Department Care Team (Late st Contact Info) Description 01/13/2021 10:15 AM VP TRANSPORTATION Office Visit [facility] Management Services [address] [place] [phone] [place] [id number] [place] [phone] Tram Pemberton, COUNCILLOR ABORIGINAL [place]-DAIRY POWDER MIXER OPERATOR [address] [address] Morbid obesity (HCC) (Primary Dx); Body mass [...] Assigned at Female 11/25/2020 1:10 PM VP TRANSPORTATION Gender Identity Female 11/25/2020 1:10 PM VP TRANSPORTATION Sexual Orientation Straight 02/02/2021 4: 18 PM CDT documented as of this encounter Last Filed Vital Signs Vital Sign Reading Time Taken Comments Blood Pressure 130/94 01/13/2021 8:55 AM VP TRANSPORTATION Pulse 54 01/13/2021 8:55 AM VP TRANSPORTATION Temperature 35.9 ??C (96.6 ??F) 01/13/2021 8:55 AM CS T Respiratory Rate 14 01/13/2021 8:55 AM VP TRANSPORTATION Oxygen Saturation 98% 01/13/2021 8: 55 AM VP TRANSPORTATION Inhaled Oxygen Concentration - - Weight 108.1 kg (238 lb 4.8 oz) 01/13/2021 8:55 AM VP TRANSPORTATION Height 160 cm (5' 3 ) 01/13/2021 8:55 AM VP TRANSPORTATION Body Mass Index 42.21 01/13/2021 8:55 AM VP TRANSPORTATION documented in this encounter Progress Notes * Tram Pemberton APRN-CNP - 01/13/2021 7:51 AM CST [facility] Health [place] [address] . . Date of encounter: 01/13/2021 Provider: SANGEETHA Rai Patient: Maria Del Carmen Ray CSN: [id number] Specialty: Bariatric Surgery Date of : 1975 [...] file Gets together: Not on file Attends orthodoxy service: Not on file Active member of [...] encounter (Office Visit) with Geovannyparesh, Tram Durbin, COUNCILLOR ABORIGINAL [place]-DAIRY POWDER MIXER OPERATOR Medication Sig ??? vitamin D, ergocalciferol, (DRISDOL) 1.25 MG (55237 UT) capsule Take 1 capsule by mouth [...] I will submit her information to our medical insurance verifier for review. She verbalized understanding and is agreeable to this plan after shared decision making with patient. SANGEETHA Rai CC: SANGEETHA Kumar TRANSPORTATION documented in this encounter Plan of Treatment Upcoming Encounters Date Type Department Care Team (Late st Contact Info) Description 03/15/2025 10:00 AM CDT Office Visit [facility] Weight Management Services [address] [place] [phone] Vianey Llanes APRN-CNP [address] [place] [address] 03/15/2025 10:30 AM CDT Clinical Support [facility] Management Services [address] [place] [phone] documented as of this encounter Visit Diagnoses [...]
--- OUTSIDE RECORDS SUMMARY | 2024-11-04 23:55 | XMS_ITS | Encounter Summary ---
Author Organization [facility] Address [address] [place] [address] Care Team Providers Care Hospital Chief Executive Officer Name Role Phone Unavailable Primary Care Provider Unavailabl e Reason for Visit * Reason Onset Date Comments Surgical Followup 02/04/2021 Encounter Details Date Type Department Care Team (Late st Contact Info) Description 02/04/2021 Telephone [facility] Weight Management Services [address] [place] [phone] Rehan Mendoza MD [address] [place] [phone] Surgical Followup Social History Tobacco Use Types Packs/Day Years Used Date Smoking Tobacco: Former Cigarettes Q uit: 06/2020 Smokeless Tobacco: Never Alcohol Use Standard Drinks/Week Comments Yes 14 (1 standard drink = 0.6 oz pu re alcohol) Sex and Gender Information Value Date Recorded Sex Assigned at Female 11/25/2020 1:10 PM GRAVEL INSPECTOR Gender Identity Female 11/25/2020 1:10 PM GRAVEL INSPECTOR Sexual Orientation Straight 02/02/2021 4: 19 [...] or concerns. Pt verified that she did cook pickled meat Carafate and Prilosec scripts and has started medications. Explained that our office will be in contact with her in regards to scheduling repeat EGD. Pt v/u. documented in this encounter Plan of Treatment Upcoming Encounters Date Type Department Care Team (Late st Contact Info) Description 03/15/2025 10:00 AM CDT Office Visit [facility] Weight Management Services [address] [place] [phone] Vianey Llanes APRN-CULTURED MARBLE PRODUCTS MAKER [address] [place], [place] [address] 03/15/2025 10:30 AM CDT Clinical Support [facility] Weight Management Services [address] [place] [phone] documented as of this encounter Visit Diagnoses Not on filedocumented in this encounter
--- OUTSIDE RECORDS SUMMARY | 2024-11-04 23:55 | XMS_ITS | Encounter Summary ---
Author Organization [facility] Address [address] [place] [address] Care Team Providers Care Functional Tester Name Role Phone Unavailable Primary Care Provider Unavailabl e Encounter Details Date Type Department Care Team (Late Contact Info) Description 01/29/2021 Orders Only [facility] Weight Management Services [address] [place] [address] Tram Pemberton, GYM INSTRUCTOR-FIBER WORKER [address] [place], [place] [address] Morbid obesity (HCC) Social History Tobacco Use Types Packs/Day Years Used Date Smoking Tobacco: Former Cigarettes Q uit: 06/2020 Smokeless Tobacco: Never Alcohol Use Standard Drinks/Week Comments Yes 0 (1 standard drink = 0.6 oz pur e alcohol) OCC. Sex and Gender Information Value Date Recorded Sex Assigned at Female 11/25/2020 1:10 PM CARGO TRIMMER Gender Identity Female 11/25/2020 1:10 PM CARGO TRIMMER Sexual Orientation Straight 02/02/2021 4: 19 [...] 10:00 AM CDT Office Visit [facility] Weight Management Services [address] [place] [address] Vianey Llanes, GYM INSTRUCTOR-FIBER WORKER [address] [place] [address] 03/15/2025 10:30 AM CDT Clinical Support [facility] Weight Management Services [address] [place] [address] documented as of this encounter Visit Diagnoses Diagnosis Morbid obesity (HCC) Morbid obesity documented in this encounter Additional Health Concerns Infection Onset Date Last Indicated Resolved Time COVID-19 Under Investigation 01/30/2021 01/30/2021 01/31/2021 8:43 AM CDT documented as of this encounter
--- OUTSIDE RECORDS SUMMARY | 2024-11-04 23:55 | XMS_ITS | Encounter Summary ---
Author Organization [facility] Address [address] [facility] [place] [address] Care Team Providers Care Automotive Parts Counter Assistant Name Role Phone Unavailable Primary Care Provider Unavailabl e Reason for Visit * Auth/Cert Specialty Diagnoses / Procedures Referred By Veronica bonner Referred To Contact Diagnoses Gastroesophageal reflux disease, unspecified whether esophagitis present Gastroesophageal reflux disease, unspecified whether esophagitis present [K21.9] Procedures ESOPHAGOGASTRODUODENOSCOPY (EGD) BIOPSY Referral ID Status Reason Start Date Expiration Date Visits Re quested Visits Authorized [id number] 1 1 Encounter Details Date Type Department Care Team (Late st Contact Info) Description 02/02/2021 12:14 PM CDT Anesthesia Event [facility] - [facility] [address] [place], [place] [address] Roverto Novak MD [address] [place], [place] [address] Anesthesia Record Procedure Summary Procedure Name Responsible [...] Sex Assigned at Female 11/25/2020 1:10 PM ASSET ANALYST Gender Identity Female 11/25/2020 1:10 PM ASSET ANALYST Sexual Orientation Straight 02/02/2021 4: 19 [...] COMPLICATIONS: No complications documented. * Amy Wong APRN-BOBBIN CLEANER - 02/02/2021 8:35 AM CDT ANESTHESIA PREOPERATIVE [...] Plan was discussed with the anesthesiologist and DATA ENGINEER. BMI, Height, Weight Tobacco History Estimated body [...] Anesthesia Transfer of Care - Elmer Kelly, CLOTH FINISHING RANGE TENDER-DATA ENGINEER - 02/02/2021 12:36 PM CDT ANESTHESIA TRANSFER [...] [facility] Weight [facility] [address] [place] [phone] Vianey Llanes APRN-CNP [address] [place], [place] [address] 03/15/2025 10:30 AM CDT Clinical Support [facility] Weight Management Services [address] [place] [phone] documented as of this encounter Visit Diagnoses [...]
--- OUTSIDE RECORDS SUMMARY | 2024-11-04 23:55 | XMS_ITS | Encounter Summary ---
Author Organization [facility] Address [address] [place] [address] Care Team Providers Care Dog Warden Name Role Phone Unavailable Primary Care Provider Unavailabl e Encounter Details Date Type Department Care Team (Late st Contact Info) Description 10/21/2020 9:00 AM PRODUCT MARKETING PROGRAMS MANAGER Video Visit [facility] [address] [place] [address] [place] [address] [phone] Morbid obesity (HCC) Social History Tobacco Use Types Packs/Day Years Used Date Smoking Tobacco: Former Cigarettes Q uit: 06/2020 Smokeless Tobacco: Never Alcohol Use Standard Drinks/Week Comments Yes 14 (1 standard drink = 0.6 oz pu re alcohol) occ Sex and Gender Information Value Date Recorded Sex Assigned at Female 11/25/2020 1:10 PM PRODUCT MARKETING PROGRAMS MANAGER Gender Identity Female 11/25/2020 1:10 PM PRODUCT MARKETING PROGRAMS MANAGER Sexual Orientation Straight 02/02/2021 4: 18 PM CDT documented as of this encounter Last Filed Vital Signs Vital Sign Reading Time Taken Comments Blood Pressure - - Pulse - - Temperature - - Respiratory Rate - - Oxygen Saturation - - Inhaled Oxygen Concentration - - Weight 111.1 kg (245 lb) 10/21/2020 8:00 AM PRODUCT MARKETING PROGRAMS MANAGER per pt report Height 160 cm (5' 3 ) 10/21/2020 8:00 AM PRODUCT MARKETING PROGRAMS MANAGER Body Mass Index 43.4 10/21/2020 8:00 AM PRODUCT MARKETING PROGRAMS MANAGER documented in this encounter Progress Notes * [...] to the billing and collection practices of [facility]. Patient location: Home This encounter [...] visits per protocol ___ Le Carvajal RD/LD UCT MARKETING PROGRAMS MANAGER documented in this encounter Plan of Treatment Upcoming Encounters Date Type Department Care Team (Late st Contact Info) Description 03/15/2025 10:00 AM CDT Office Visit [facility] Weight Management Services [address] [place] [phone] Vianey Llanes, GRID TRIMMER-HEAVY DUTY CUSTODIAN [address] [place] [address] 03/15/2025 10:30 AM CDT Clinical Support [facility] Weight Management Services [address] [place] [address] documented as of this encounter Visit Diagnoses Diagnosis Morbid obesity (HCC)- Primary Morbid obesity documented in this encounter
--- OUTSIDE RECORDS SUMMARY | 2024-11-04 23:56 | XMS_ITS | Encounter Summary ---
Author Organization [facility] Address [address] [place] [address]. [place], [place] [phone] [place] [address] Care Team Providers Care Tunnel Elastic Operator Lockstitch Name Role Phone None, Provider MD Primary Care Provider Unavaila ble Reason for Visit * Reason Comments Facial Swelling Encounter Details Date Type Department Care Team (Late st Contact Info) Description 01/24/2023 5:14 AM CDT - 01/24/2023 6:20 AM CDT Emergency [facility] [place] [address] Clark Skelton MD,PHD [address] [place] [address] Facial Swelling Discharge Disposition: Home or Self [...] 126 capsule, Refills: 0 Class: Eprescribe Pharmacy: [id number] - [place], [place] - [address] (Ph #: [phone]) meloxicam (MOBIC) 15 MG tablet Take 0.5 tablets (7.5 mg total) by mouth daily for 6 days. Qty: 3 tablet, Refills: 0 Class: Eprescribe [id number] [address] [facility] (Ph #: [phone]) Disposition: Discharge home Patient provided with printed [...] documented as of this encounter Care Teams Tunnel Elastic Operator Lockstitch Relationship Specialty Start Date End Date None, Provider, MD PCP - General 05/06/21 10/27/24 documented as of this encounter
--- OUTSIDE RECORDS SUMMARY | 2024-11-04 23:56 | XMS_ITS | Encounter Summary ---
Author Organization [facility] Address [address] [place] [address]. [place], [place] [phone] [place] [address] Care Team Providers Care Glass Etcher Helper Name Role Phone None, Provider Primary Care [...] documented as of this encounter Care Teams Glass Etcher Helper Relationship Specialty Start Date End Date None, Provider, PCP - General 05/06/21 10/27/24 documented as of this encounter
--- OUTSIDE RECORDS SUMMARY | 2024-11-04 23:56 | XMS_ITS | Encounter Summary ---
Author Organization [facility] Address [address] [place] [address]. [place], [place] [address] [place] [address] Care Team Providers Care Industrial Tech Instructor Name Role Phone None, Provider MD Primary Care Provider Unavaila ble Reason for Referral * Imaging (Emergency) - Closed Specialty Diagnoses / Procedures Referred By Contac t Referred To Contact RADIOLOGY Procedures CT STROKE(HEAD WO) CT HEAD WO CON Carlos Jensen MD Phone: tel: fax: Referral ID Status Reason Start Date Expiration Date Visits Re quested Visits Authorized [id number] Closed 12/31/2022 12/31/2023 1 1 E ABATEMENT ENGINEER * Imaging (Emergency) - Closed Specialty Diagnoses / Procedures Referred By Contac t Referred To Contact RADIOLOGY Procedures CTA HEAD+NECK [facility] [place] [address] Phone: tel: fax: Referral ID Status Reason Start Date Expiration Date Visits Re quested Visits Authorized [id number] Closed 12/31/2022 12/31/2023 1 1 E ABATEMENT ENGINEER Reason for Visit * Reason Comments Stroke Alert * Auth/Cert (Routine) Specialty Diagnoses / Procedures Referred By Contac t Referred To Contact Diagnoses TIA (transient ischemic attack) TIA (transient ischemic attack) Procedures NONE Referral ID Status Reason Start Date Expiration Date Visits Re quested Visits Authorized [id number] 1 1 Encounter Details Date Type Department Care Team (Late st Contact Info) Description 12/31/2022 11:56 PM NOISE ABATEMENT ENGINEER - 01/01/2023 3:31 AM NOISE ABATEMENT ENGINEER Emergency [facility] [place] [address] Carlos Jensen MD [address] [place] [id number] [place] [address] [phone] (Work) Stroke Alert Discharge Disposition: Home or [...] Coronavirus/COVID-19? No / Unsure 01/01/2023 12:20 AM NOISE ABATEMENT ENGINEER documented as of this encounter Last Filed Vital Signs Vital Sign Reading Time Taken Comments Blood Pressure 137/92 01/01/2023 3:00 AM NOISE ABATEMENT ENGINEER Pulse 56 01/01/2023 3:00 AM NOISE ABATEMENT ENGINEER Temperature 36.7 ??C (98.1 ??F) 01/01/2023 12:[address] Respiratory Rate 16 01/01/2023 3:00 AM NOISE ABATEMENT ENGINEER Oxygen Saturation 100% 01/01/2023 3:00 AM NOISE ABATEMENT ENGINEER Inhaled Oxygen Concentration - - Weight 76.7 kg (169 lb 1.5 oz) 01/01/2023 12:17 AM NOISE ABATEMENT ENGINEER Height 154.9 cm (5' 1 ) 01/01/2023 12:17 AM NOISE ABATEMENT ENGINEER Body Mass Index 31.95 01/01/2023 12:17 AM NOISE ABATEMENT ENGINEER documented in this encounter Functional Status * [...] Author Status No 06/01/2019 2:55 AM Teja Admas RN Active * Because of a physical, [...] through Care Everywhere. * Paresthesia Discharge Instructions (Czech) * Dehydration Discharge Instructions, Adult (Czech) documented in this encounter Medications at Time [...] encounter of 12/31/22 ECG 12 lead Narrative [address] [place] Test Date: 2023-01-01 Pat Name: MARIA DEL CARMEN CERVANTES Department: 41 Room: 707A Gender: Female Band Saw Marker: RICH : 1975 Requested By: CARLOS JENSEN Order Number: [id number] Reading MD: Andre Gardner Measurements Intervals [place] Rate: 65 P: 56 VA: 160 QRS: 16 QRSD: 97 T: 28 QT: 426 QTc: 443 Interpretive Statements SINUS RHYTHM Compared to ECG 12/24/2022 12:51:15 Sinus bradycardia no longer present No ischemic changes Carlos Jensen M.D CRITICAL ALERT ISSUED ON 01-01-2023 0:26:14 E ABATEMENT ENGINEER LABORATORY STUDIES: Results for orders placed or [...] STUDIES CTA HEAD+NECK Final Result by User, [email or web address] (01/01 34) EXAMINATION: CTA head/neck HISTORY: Left [...] CT STROKE(HEAD WO) Final Result by User, [email or web address] (01/01 27) EXAMINATION: CT head without contrast [...] Dehydration Disposition: Discharge Carlos Jensen MD 01/05/23432 E ABATEMENT ENGINEER * Kian Ruffin RN - 01/01/2023 12:12 [...] any history or stroke in the past. E ABATEMENT ENGINEER documented in this encounter Plan of Treatment Not on file documented as of this encounter Procedures Procedure Name Priority Date/Time Associated Diagnosis Comments ELECTROCARDIOGRAM REPORT Routine 023 12:30 AM NOISE ABATEMENT ENGINEER ECG 12-LEAD STAT 01/01/2023 12:21 AM NOISE ABATEMENT ENGINEER POCT GLUCOSE - YIP DOCKED DEVICE Routine 01/01/2023 12:16 AM NOISE ABATEMENT ENGINEER POCT BEDSIDE BLOOD GLUCOSE STAT 01/01/2023 12:16 AM NOISE ABATEMENT ENGINEER PARTIAL THROMBOPLASTIN TIME,PTT STAT 01/01/2023 12:16 AM NOISE ABATEMENT ENGINEER PROTHROMBIN TIME, VENOUS STAT 023 12:16 AM NOISE ABATEMENT ENGINEER COMPREHENSIVE METABOLIC PANEL STAT 01/01/2023 12:16 AM NOISE ABATEMENT ENGINEER CBC W/DIFF AUTOMATED STAT 01/01/2023 12:16 AM NOISE ABATEMENT ENGINEER MAGNESIUM STAT 01/01/2023 12:16 AM NOISE ABATEMENT ENGINEER CTA HEAD+NECK STAT 01/01/2023 12:08 AM NOISE ABATEMENT ENGINEER CT STROKE(HEAD WO) STAT 01/01/2023 12 :01 AM NOISE ABATEMENT ENGINEER documented in this encounter Results * EKG Reading (01/01/2023 12:30 AM NOISE ABATEMENT ENGINEER) Carlos Nogueira MD - 01/01/2023 12:30 AM NOISE ABATEMENT ENGINEER Carlos Jensen MD ? 01/05/2023 ??4:33 AM EKG Reading Date/Time: 01/01/2023 12:30 AM Performed by: Carlos Jensen MD Authorized by: Carlos Jensen MD Interpreted by ED physician Rhythm: sinus rhythm Rate: normal BPM: 65 QRS axis: normal Conduction: conduction normal ST Segments: ST segments normal T Waves: T waves normal Clinical impression: normal ECG us Carlos Jensen MD [facility] Final Result * ECG 12 lead (01/01/2023 12:21 AM NOISE ABATEMENT ENGINEER) 01/01/2023 12:2 1 AM NOISE ABATEMENT ENGINEER Narrative [facility] - 01/01/2023 5:35 PM NOISE ABATEMENT ENGINEER ?[facility] ? [address] [place] ? Test Date: ?2023-01-01 Pat Name: ? MARIA DEL CARMEN CERVANTES ?Department: ?? 41 ? Room: ? 707A Gender: ? Female ? Band Saw Marker: ?? CB : ?1975 ? Requested By: CARLOS JENSEN Order Number: [id number] ? Reading : ?? Andre Gardner ? Measurements Intervals ?[place] ? Rate: ? 65 ? P: ?56 VA: ? 160 ?QRS: ?16 QRSD: ? 97 ? T: ?28 QT: ? 426 ? QTc: ?443 ? Interpretive Statements SINUS RHYTHM Compared to ECG 12/24/2022 12:51:15 Sinus bradycardia no longer present No ischemic changes Carlos Jensen M.D CRITICAL ALERT ISSUED ON 01-01-2023 0:26:14 E ABATEMENT ENGINEER Procedure Note Andre Gardner MD - 01/01/[address] Test Date: 2023-01-01 Pat Name: MARIA DEL CARMEN CERVANTES Department: 41 Room: 707A Gender: Female Band Saw Marker: RICH : 1975 Requested By: SUNIL Order Number: [id number] Reading MD: Andre Gardner Measurements Intervals [place] Rate: 65 P: 56 VA: 160 QRS: 16 QRSD: 97 T: 28 QT: 426 QTc: 443 Interpretive Statements SINUS RHYTHM Compared to ECG 12/24/2022 12:51:15 Sinus bradycardia no longer present No ischemic changes Carlos Jensen M.D CRITICAL ALERT ISSUED ON 01-01-2023 0:26:14 E ABATEMENT ENGINEER Carlos Jensen MD ECG ORDERABLES Final Result [facility] ([facility] * (ABNORMAL) Bedside Blood Glucose (01/01/2023 12:16 AM NOISE ABATEMENT ENGINEER) GLUCOSE WHOLE BLOOD 104(A) 70 - 100 mg/dL Carlos Jensen MD NURSING TREATM ENT ORDERABLES - ONCE OR INTERVALS Final Result * MAGNESIUM (01/01/2023 12:16 AM NOISE ABATEMENT ENGINEER) [facility] MAGNESIUM 2.0 1.8 - 2.4 MG/DL 01/01/2023 12:53 AM NOISE ABATEMENT ENGINEER [facility] 01/01/2023 12:1 6 AM NOISE ABATEMENT ENGINEER Carlos Jensen MD LABORATORY Final Result Performing Organization Address City/[facility]/ZIP Co de Phone Number [facility] [address] [place] [address], [place] [phone] * (ABNORMAL) POCT glucose (01/01/2023 12:16 AM NOISE ABATEMENT ENGINEER) [facility] GLUCOSE POC 104(H) 70 - 99 mg/dL 01/01/2023 12:17 AM NOISE ABATEMENT ENGINEER [facility] 01/01/2023 12:1 6 AM NOISE ABATEMENT ENGINEER us Carlos Jensen MD POCT ORDERABLES - BIBI CE Final Result [facility] [address] [place] [address], [place] [phone] * (ABNORMAL) COMPREHENSIVE METABOLIC PANEL (01/01/2023 12:16 AM NOISE ABATEMENT ENGINEER) [facility] GLUCOSE 104(H) 70 - 99 MG/DL 01/01/2023 12:45 AM [facility] BUN 25(H) 7 - 18 MG/DL 01/01/2023 12:45 AM [facility] CREATININE S/P/B 1.00 0.55 - 1.02 MG/DL 01/01/2023 12:45 AM [facility] SODIUM S/P/B 139 136 - 145 MMOL/L 01/01/2023 12:45 AM [facility] POTASSIUM S/P/B 4.0 3.5 - 5.1 MMOL/L 01/01/2023 12:45 AM [facility] CHLORIDE S/P/B 107 100 - 108 MMOL/L 01/01/2023 12:45 AM [facility] CO2 29.9 21 - 32 MMOL/L 01/01/2023 12:45 AM [facility] CALCIUM S/P/B 9.5 8.5 - 10.1 MG/DL 01/01/2023 12:45 AM [facility] BILIRUBIN TOTAL S/P/B 0.6 0.2 - 1.2 MG/DL 01/01/2023 12:45 AM [facility] Comment: THIS ASSAY IS NOT RECOMMENDED FOR PATIENTS UNDERGOING TREATMENT WITH ELTROMBOPAG DUE TO THE POTENTIAL FOR FALSELY ELEVATED RESULTS. TOTAL PROTEIN S/P/B 7.2 6.4 - 8.2 G/DL 01/01/2023 12:45 AM [facility] ALBUMIN S/P/B 3.8 3.4 - 5.0 G/DL 01/01/2023 12:45 AM [facility] AST 18 15 - 37 U/L 01/01/2023 12:45 AM NOISE ABATEMENT ENGINEER [facility] ALT 25 14 - 55 U/L 01/01/2023 12:45 AM [facility] ALKALINE PHOSPHATASE S/P/B 78 50 - 136 U/L 01/01/2023 12:45 AM [facility] ANION GAP 2.1(L) 5 - 15 MMOL/L 01/01/2023 12:45 AM [facility] BUN CREATININE RATIO 25.0 6 - 26 01/01/2023 12:45 AM [facility] A/G RATIO 1.1 1.0 - 2.0 RATIO 01/01/2023 12:45 AM [facility] GFR ESTIMATE 70(L) >90 ML/MIN/1.7 3 M2 01/01/2023 12:45 AM [facility] Comment: NOTE: eGFR is not calculated for patients <18 years of age. This is an estimated GFR calculation using the new CKD EPI creatinine equation without race and so does not require a correction factor for race. This estimated GFR should not be used for calculating drug doses. 01/01/2023 12:1 6 AM NOISE ABATEMENT ENGINEER us Carlos Jensen MD LABORATORY Final Result [facility] [address] [place] [address], [place] [phone] * PARTIAL THROMBOPLASTIN TIME,PTT (01/01/2023 12:16 AM NOISE ABATEMENT ENGINEER) PTT 28.6 25.1 - 36.5 SEC 01/01/2023 12:35 AM NOISE ABATEMENT ENGINEER [facility] 01/01/2023 12:1 6 AM NOISE ABATEMENT ENGINEER us Carlos Jensen MD LABORATORY Final Result [facility] [address] [place] [address], * PROTIME/INR, VENOUS (01/01/2023 12:16 AM NOISE ABATEMENT ENGINEER) PROTIME 11.6 10.2 - 12.9 SEC 01/01/2023 12:35 AM NOISE ABATEMENT ENGINEER [facility] INR 1.0 01/01/2023 12:35 AM NOISE ABATEMENT ENGINEER [facility] Comment: Recommended INR Therapeutic Goals: ??2.0-3.0 Routine Therapy ??2.5-3.5 Mechanical Prosthetic Valves (High Risk) 01/01/2023 12:1 6 AM NOISE ABATEMENT ENGINEER Carlos Jensen MD LABORATORY Final Result Performing Organization Address [facility] Co de Phone Number [facility] [address] [place] [address], * (ABNORMAL) CBC W/DIFF AUTOMATED (01/01/2023 12:16 AM NOISE ABATEMENT ENGINEER) WBC 7.7 4.5 - 11.0 x10'3/uL 01/01/2023 12:59 AM NOISE ABATEMENT ENGINEER [facility] RBC 4.33 4.20 - 5.40 x10'6/uL 01/01/2023 12:59 AM NOISE ABATEMENT ENGINEER [facility] HGB 14.0 12.0 - 16.0 G/DL 01/01/2023 12:59 AM [facility] HCT 41.5 38.0 - 48.0 % 01/01/2023 12:59 AM NOISE ABATEMENT ENGINEER [facility] MCV 95.8 81.0 - 99.0 FL 01/01/2023 12:59 AM [facility] MCH 32.3(H) 27.0 - 31.0 PG 01/01/2023 12:59 AM [facility] MCHC 33.7 32.0 - 36.0 G/DL 01/01/2023 12:59 AM [facility] RDW 12.7 11.5 - 14.5 % 01/01/2023 12:59 AM [facility] PLT 223 130 - 400 x10'3/uL 01/01/2023 12:59 AM [facility] MPV 10.2 9.3 - 12.2 FL 01/01/2023 12:59 AM [facility] DIFFERENTIAL TYPE AUTOMATED DIFFERENTIAL 01/01/2023 12:59 AM [facility] NEUTROPHILS % 55.8 % 01/01/2023 12:59 AM [facility] LYMPHOCYTES % 36.9 % 01/01/2023 12:59 AM [facility] MONOCYTES % 5.7 % 01/01/2023 12:59 AM [facility] EOSINOPHILS 0.8 % 01/01/2023 12:59 AM [facility] BASOPHILS 0.5 % 01/01/2023 12:59 AM [facility] IMMATURE GRANS % 0.3 % 01/01/20 12:59 AM [facility] ABS. NEUTROPHILS TOTAL 4.30 1.80 - 7.70 x10'3/uL 01/01/2023 12:59 AM [facility] ABS. LYMPHOCYTES 2.84 1.00 - 4.80 x10'3/uL 01/01/2023 12:59 AM [facility] ABS. MONOCYTES 0.44 0.24 - 0.86 x10'3/uL 01/01/2023 12:59 AM NOISE ABATEMENT ENGINEER [facility] ABS. EOSINOPHILS 0.06 0.04 - 0.36 x10'3/uL 01/01/2023 12:59 AM NOISE ABATEMENT ENGINEER [facility] ABS. BASOPHILS 0.04 0.01 - 0.08 x10'3/uL 01/01/2023 12:59 AM NOISE ABATEMENT ENGINEER [facility] ABS. IMMATURE GRANULOCYTES 0.02 0.00 - 0.49 x10'3/uL 01/01/2023 12:59 AM NOISE ABATEMENT ENGINEER [facility] 01/01/2023 12:1 6 AM NOISE ABATEMENT ENGINEER Carlos Jensen MD LABORATORY Final Result Performing Organization Address City/State/[facility] Co de Phone Number [facility] [address] [place] [address], * CTA HEAD+NECK (01/01/2023 12:08 AM NOISE ABATEMENT ENGINEER) Anatomical Region Laterality Modality Head, Neck Computed Tomogra phy 01/01/2023 12:2 6 AM NOISE ABATEMENT ENGINEER Impressions 01/01/2023 12:32 AM NOISE ABATEMENT ENGINEER IMPRESSION: 1. ??No evidence of stenosis or occlusion involving the major arteries of the head or neck. 2. ??No acute findings. Referred By: ?? Interpreted By: Wilner Hopkins DO, 01/01/2023 12:26 AM Narrative 01/01/2023 12:32 AM NOISE ABATEMENT ENGINEER EXAMINATION: CTA head/neck HISTORY: Left arm and [...] * CT STROKE(HEAD WO) (01/01/2023 12:01 AM NOISE ABATEMENT ENGINEER) Anatomical Region Laterality Modality Head Computed Tomogra phy 01/01/2023 12:2 3 AM NOISE ABATEMENT ENGINEER Impressions 01/01/2023 12:26 AM NOISE ABATEMENT ENGINEER IMPRESSION: No acute intracranial abnormalities identified. Referred By: ?? Interpreted By: Wilner Hopkins DO, 01/01/2023 12:23 AM Narrative 01/01/2023 12:26 AM NOISE ABATEMENT ENGINEER EXAMINATION: CT head without contrast HISTORY: Left [...] 01/01/23 at 0009 Given 01/01/2023 12:09 AM NOISE ABATEMENT ENGINEER 80 mLs Right Arm sodium chloride 0.9% bolus infusion 1,000 mL 1,000 mL, Intravenous, Administer over 30 Minutes, Once, 1 dose, On 01/01/23 at 0200 New Bag 01/01/2023 2:01 AM NOISE ABATEMENT ENGINEER 1,000 mLs documented in this encounter Active and Recently Administered Medications Times are shown in NOISE ABATEMENT ENGINEER. Scheduled Medication Order 12/30/2022 12/31/2022 01/01/2023 sodium [...] documented as of this encounter Care Teams Industrial Tech Instructor Relationship Specialty Start Date End Date None, Provider, PCP - General 05/06/21 10/27/24 documented as of this encounter
--- OUTSIDE RECORDS SUMMARY | 2024-11-04 23:56 | XMS_ITS | Encounter Summary ---
Author Organization [facility] Address [address] [place] [address]. [place], [place] [address] [place] [address] Care Team Providers Care Assessment Clinician Name Role Phone None, Provider Primary Care [...] Rule Out 01/08/2024 01/08/2024 01/08/2024 2:18 PM COMPUTATIONAL LINGUIST Assessment Noted Time PHQ-9 Depression Total Score: 2 07/17/20 20 9:06 AM CDT documented as of this encounter Care Teams Assessment Clinician Relationship Specialty Start Date End Date None, Provider, PCP - General 05/06/21 10/27/24 documented as of this encounter
--- OUTSIDE RECORDS SUMMARY | 2024-11-04 23:56 | XMS_ITS | Encounter Summary ---
Author Organization [facility] Address [address] [place] [address]. [place], [place] [id number] [place] [address] Care Team Providers Care Fermenter Wine Name Role Phone None, Provider MD Primary [...] documented as of this encounter Care Teams Fermenter Wine Relationship Specialty Start Date End Date None, Provider, PCP - General 05/06/21 10/27/24 documented as of this encounter
--- OUTSIDE RECORDS SUMMARY | 2024-11-04 23:56 | XMS_ITS | Encounter Summary ---
Author Organization [facility] Address [address] [place] [address]. [place] [address] [place] [address] Care Team Providers Care Scale And Skip Car Operator Name Role Phone None, Provider Primary [...] COVID-19? No / Unsure 09/26/2021 2:44 PM AUGER SUPERVISOR documented as of this encounter Functional Status [...] documented as of this encounter Care Teams Scale And Skip Car Operator Relationship Specialty Start Date End Date None, Provider, PCP - General 05/06/21 10/27/24 documented as of this encounter
--- OUTSIDE RECORDS SUMMARY | 2024-11-04 23:56 | XMS_ITS | Encounter Summary ---
Author Organization [facility] Address [address] [place] [address]. [place], [place] [address] [place] [address] Care Team Providers Care Roofer Assistant Name Role Phone None, Provider Primary Care [...] Coronavirus/COVID-19? No / Unsure 12/23/2022 4:49 PM PROCESS CONTROL TECH documented as of this encounter Functional Status [...] documented as of this encounter Care Teams Roofer Assistant Relationship Specialty Start Date End Date None, Provider, PCP - General 05/06/21 10/27/24 documented as of this encounter
--- OUTSIDE RECORDS SUMMARY | 2024-11-04 23:56 | XMS_ITS | Encounter Summary ---
Author Organization [facility] Address [address] [place] [address]. [place], [place] [id number] [place] [address] Care Team Providers Care Glacing Machine Tender Name Role Phone None, Provider Primary [...] documented as of this encounter Care Teams Glacing Machine Tender Relationship Specialty Start Date End Date None, Provider, PCP - General 05/06/21 10/27/24 documented as of this encounter
--- OUTSIDE RECORDS SUMMARY | 2024-11-04 23:56 | XMS_ITS | Encounter Summary ---
Author Organization [facility] Address [address] [place] [address]. [place], [place] [id number] [place] [address] Care Team Providers Care Frozen Yogurt Maker Name Role Phone None, Provider Primary Care [...] documented as of this encounter Care Teams Frozen Yogurt Maker Relationship Specialty Start Date End Date None, Provider, PCP - General 05/06/21 10/27/24 documented as of this encounter
--- OUTSIDE RECORDS SUMMARY | 2024-11-04 23:56 | XMS_ITS | Encounter Summary ---
Author Organization [facility] Address [address] [place] [address]. [place] [address] [place] [address] Care Team Providers Care J2Ee Developer Name Role Phone None, Provider Primary Care [...] documented as of this encounter Care Teams J2Ee Developer Relationship Specialty Start Date End Date None, Provider, PCP - General 05/06/21 10/27/24 documented as of this encounter
--- OUTSIDE RECORDS SUMMARY | 2024-11-04 23:56 | XMS_ITS | Clinical Summary ---
Author Organization [facility] Address [facility] [place] [address] [place] [address] Care Team Providers Care Racebook Writer Name Role Phone Juanis Richards NP Primary Care Provider [phone] Allergies Active Allergy Reactions Criticality Noted Date [...] Department Care Team Description 10/28/2024 9:00 PM MAINFRAME ANALYST - 10/28/2024 11:34 PM MAINFRAME ANALYST Emergency [facility] [place] [address] Mary Gant MD Sore Throat; Diarrhea Discharge [...] Comments Blood Pressure 167/99 10/28/2024 10:25 PM MAINFRAME ANALYST Pulse 58 10/28/2024 10:25 PM MAINFRAME ANALYST Temperature 37 ??C (98.6 ??F) 10/28/2024 8:18 PM MAINFRAME ANALYST Respiratory Rate 16 10/28/2024 10:25 PM MAINFRAME ANALYST Oxygen Saturation 99% 10/28/2024 10:25 PM MAINFRAME ANALYST Inhaled Oxygen Concentration - - Weight 72.6 kg (160 lb) 10/28/2024 8:18 PM MAINFRAME ANALYST Height 160 cm (5' 3 ) 10/28/2024 8:18 PM MAINFRAME ANALYST Body Mass Index 28.34 10/28/2024 8:18 PM MAINFRAME ANALYST Plan of Treatment Health Maintenance Due Date [...] A & B STAT 10/28/2024 9:35 PM MAINFRAME ANALYST CORONAVIRUS (COVID 19) STAT 10/28/2024 9:35 PM MAINFRAME ANALYST STREP A RAPID STAT 10/28/2024 9:35 PM MAINFRAME ANALYST HIV 1 ANTIGEN(S), WITH HIV-1 AND HIV-2 ANTIBODIES STAT 10/28/2024 9:35 PM MAINFRAME ANALYST HETEROPHILE ANTIBODIES,SCREEN STAT 10/28/2024 9:35 PM MAINFRAME ANALYST HC URINALYSIS AUTO W/O MICRO STAT 10/28/2024 9:35 PM MAINFRAME ANALYST COMPREHENSIVE METABOLIC PANEL STAT 10/28/2024 9:35 PM MAINFRAME ANALYST CBC W/DIFF AUTOMATED STAT 10/28/2024 9:35 PM MAINFRAME ANALYST XR CHEST PORTABLE STAT 10/28/2024 8:3 9 PM MAINFRAME ANALYST MAMMOGRAM GENERIC (SCAN ORDER) 08/19/2020 LIPID PANEL Routine 12/08/2018 9:28 AM MAINFRAME ANALYST Essential hypertension from Last 3 Months or Most Recently Relevant to Health Maintenance Results * CORONAVIRUS (COVID 19) (10/28/2024 9:35 PM MAINFRAME ANALYST) [facility] CORONAVIRUS SARS COV 2 RNA NEGATIVE NEGATIVE 10/28/2024 10:10 PM MAINFRAME ANALYST [facility] Comment: NEGATIVE RESULTS DO NOT [...] SARS-COV-2. SPECIMEN TYPE NASAL 10/28/2024 9:29 PM MAINFRAME ANALYST [facility] NASAL STRUCTURE / Unknown 10/28/2024 9:35 PM MAINFRAME ANALYST Pam MAY MICROBIOLOGY - GENERAL ORDERAB LES Final Result [facility] [address] [place] [address], [place] [phone] * HIV 1 ANTIGEN(S), WITH HIV-1 AND HIV-2 ANTIBODIES (10/28/2024 9:35 PM MAINFRAME ANALYST) [facility] HIV 1/2 AB+ HIV1 P24 AG NON-REACTI VE NON-REACTI VE 10/28/2024 11:22 PM MAINFRAME ANALYST [facility] 10/28/2024 9:35 PM MAINFRAME ANALYST Mary Gant MD LABORATORY Final Resul t [facility] [address] [place] [address], [place] [phone] * INFLUENZA A & B (10/28/2024 9:35 PM MAINFRAME ANALYST) SPECIMEN TYPE SWAB 10/28/2024 10:10 PM MAINFRAME ANALYST [facility] INFLUENZA A NEGATIVE NEGATIVE 10/28/2024 10:10 PM MAINFRAME ANALYST [facility] INFLUENZA B NEGATIVE NEGATIVE 10/28/2024 10:10 PM MAINFRAME ANALYST [facility] Comment: Interpretation: Negative for Influenza [...] NASAL STRUCTURE / Unknown 10/28/2024 9:35 PM MAINFRAME ANALYST Pam MAY MICROBIOLOGY - GENERAL ORDERAB LES Final Result Performing Organization Address City/[facility]/ZIP Co de Phone Number [facility] [address] [place] [address], [place] [phone] * (ABNORMAL) URINALYSIS (10/28/2024 9:35 PM MAINFRAME ANALYST) SPECIMEN TYPE URINE CLEAN CATCH 10/28/2024 9:34 PM MAINFRAME ANALYST [facility] COLOR (U) YELLOW 10/28/2024 9:59 PM MAINFRAME ANALYST [facility] TRANSPARENCY CLEAR 10/28/2024 9:59 PM MAINFRAME ANALYST [facility] SPECIFIC GRAVITY (U) 1.037(H) 1.001 - 1.030 10/28/2024 9:59 PM MAINFRAME ANALYST [facility] U PH 6.5 5.0 - 9.0 10/28/2024 9:59 PM MAINFRAME ANALYST [facility] LEUKOCYTES (U) NEGATIVE NEGATIVE 10/28/2024 9:59 PM MAINFRAME ANALYST [facility] NITRITES NEGATIVE NEGATIVE 10/28/2024 9:59 PM MAINFRAME ANALYST [facility] PROTEIN RANDOM (U) 30(H) <30 MG/DL 10/28/2024 9:59 PM MAINFRAME ANALYST [facility] GLUCOSE (U) NORMAL NORMAL MG/DL 10/28/2024 9:59 PM MAINFRAME ANALYST [facility] KETONES MG/DL (U) NEGATIVE NEGATIVE MG/DL 10/28/2024 9:59 PM [facility] UROBILINOGEN 4.0(A) NORMAL MG/DL 10/28/2024 9:59 PM MAINFRAME ANALYST [facility] BILIRUBIN (U) NEGATIVE NEGATIVE MG/DL 10/28/2024 9:59 PM [facility] BLOOD (U) 1+(A) NEGATIVE 10/28/2024 9:59 PM MAINFRAME ANALYST [facility] MUCUS FEW /LPF 10/28/2024 9:59 PM MAINFRAME ANALYST [facility] WBC/HPF 4 <6 /HPF 10/28/2024 9:59 PM MAINFRAME ANALYST [facility] RBC/HPF 11(H) <6 /HPF 10/28/2024 9:59 PM MAINFRAME ANALYST [facility] SQUAMOUS EPITHELIALS RARE /HPF 10/28/2024 9:59 PM [facility] URINE SPECIMEN OBTAINED BY CLEAN CATCH PROCEDURE / Unknown 10/28/2024 9:35 PM MAINFRAME ANALYST Pam MAY URINE ORDERABLES Final Result [facility] [address] [place] [address], [place] [phone] * STREP A RAPID (10/28/2024 9:35 PM MAINFRAME ANALYST) SPECIMEN TYPE THROAT 10/28/2024 9:29 PM MAINFRAME ANALYST [facility] RAPID STREP TEST NEGATIVE NEGATIVE 10/28/2024 10:10 PM MAINFRAME ANALYST [facility] STRUCTURE OF ANTERIOR PORTION OF NECK / Unknown 10/28/2024 9:35 PM MAINFRAME ANALYST Pam MAY MICROBIOLOGY - GENERAL ORDERAB LES Final Result Performing Organization Address [facility]/ZIP Co de Phone Number [facility] [address] [place] [address], [place] [phone] * (ABNORMAL) COMPREHENSIVE METABOLIC PANEL (10/28/2024 9:35 PM MAINFRAME ANALYST) GLUCOSE 89 70 - 99 MG/DL 10/28/2024 10:17 PM MAINFRAME ANALYST [facility] BUN 28(H) 7 - 18 MG/DL 10/28/2024 10:17 PM MAINFRAME ANALYST [facility] CREATININE S/P/B 1.08(H) 0.55 - 1.02 MG/DL 10/28/2024 10:17 PM MAINFRAME ANALYST [facility] SODIUM S/P/B 140 136 - 145 MMOL/L 10/28/2024 10:17 PM [facility] POTASSIUM S/P/B 4.0 3.5 - 5.1 MMOL/L 10/28/2024 10:17 PM MAINFRAME ANALYST [facility] CHLORIDE S/P/B 107 97 - 115 MMOL/L 10/28/2024 10:17 PM [facility] CO2 30.2 21 - 32 MMOL/L 10/28/2024 10:17 PM [facility] CALCIUM S/P/B 8.7 8.5 - 10.1 MG/DL 10/28/2024 10:17 PM [facility] BILIRUBIN TOTAL S/P/B 0.4 0.2 - 1.2 MG/DL 10/28/2024 10:17 PM [facility] Comment: THIS ASSAY IS NOT RECOMMENDED FOR PATIENTS UNDERGOING TREATMENT WITH ELTROMBOPAG DUE TO THE POTENTIAL FOR FALSELY ELEVATED RESULTS. TOTAL PROTEIN S/P/B 6.8 6.4 - 8.2 G/DL 10/28/2024 10:17 PM [facility] ALBUMIN S/P/B 3.6 3.4 - 5.0 G/DL 10/28/2024 10:17 PM [facility] AST 20 15 - 37 U/L 10/28/2024 10:17 PM [facility] ALT 26 14 - 55 U/L 10/28/2024 10:17 PM [facility] ALKALINE PHOSPHATASE S/P/B 84 50 - 136 U/L 10/28/2024 10:17 PM [facility] ANION GAP 2.8 2 - 10 MMOL/L 10/28/2024 10:17 PM [facility] BUN CREATININE RATIO 25.9 6 - 26 10/28/2024 10:17 PM [facility] A/G RATIO 1.1 1.0 - 2.0 RATIO 10/28/2024 10:17 PM [facility] GFR ESTIMATE 63(L) >90 ML/MIN/1.7 3 M2 10/28/2024 10:17 PM MAINFRAME ANALYST [facility] Comment: NOTE: eGFR is not calculated for patients <18 years of age or gender unknown. This is an estimated GFR calculation using the new CKD EPI creatinine equation without race and so does not require a correction factor for race. This estimated GFR should not be used for calculating drug doses. 10/28/2024 9:3 5 PM MAINFRAME ANALYST Pam MAY LABORATORY Final Result Performing Organization Address City/[facility]/ZIP Co de Phone Number [facility] [address] [place] [address], [place] [phone] * HETEROPHILE ANTIBODIES,SCREEN (10/28/2024 9:35 PM MAINFRAME ANALYST) Pathologist [facility] MONO TEST NEGATIVE NEGATIVE 10/29/2024 1:49 PM MAINFRAME ANALYST [facility] 10/28/2024 9:35 PM MAINFRAME ANALYST us Pam MAY LABORATORY Final Result Performing Organization Address City/[facility] Co de Phone Number [facility] [address] [place] [address], [place] [phone] * (ABNORMAL) CBC W/DIFF AUTOMATED (10/28/2024 9:35 PM MAINFRAME ANALYST) Pathologist [facility] WBC 10.18 4.5 - 11.0 x10'3/uL 10/28/2024 9:55 PM MAINFRAME ANALYST [facility] RBC 4.40 4.20 - 5.40 x10'6/uL 10/28/2024 9:55 PM MAINFRAME ANALYST [facility] HGB 14.2 12.0 - 16.0 G/DL 10/28/2024 9:55 PM MAINFRAME ANALYST [facility] HCT 42.7 38.0 - 48.0 % 10/28/2024 9:55 PM MAINFRAME ANALYST [facility] MCV 97.0 81.0 - 99.0 FL 10/28/2024 9:55 PM MAINFRAME ANALYST [facility] MCH 32.3(H) 27.0 - 31.0 PG 10/28/2024 9:55 PM MAINFRAME ANALYST [facility] MCHC 33.3 32.0 - 36.0 G/DL 10/28/2024 9:55 PM MAINFRAME ANALYST [facility] RDW 12.9 11.5 - 14.5 % 10/28/2024 9:55 PM MAINFRAME ANALYST [facility] PLT 224 130 - 400 x10'3/uL 10/28/2024 9:55 PM MAINFRAME ANALYST [facility] MPV 9.9 9.3 - 12.2 FL 10/28/2024 9:55 PM [facility] DIFFERENTIAL TYPE AUTOMATED DIFFERENTIAL 10/28/2024 9:55 PM [facility] NEUTROPHILS % 60.2 % 10/28/2024 9:55 PM MAINFRAME ANALYST [facility] LYMPHOCYTES % 32.7 % 10/28/2024 9:55 PM [facility] MONOCYTES % 5.4 % 10/28/2024 9:55 PM [facility] EOSINOPHILS 0.7 % 10/28/2024 9:55 PM [facility] BASOPHILS 0.5 % 10/28/2024 9:55 PM [facility] IMMATURE GRANS % 0.5 % 10/28/20 9:55 PM MAINFRAME ANALYST [facility] ABS. NEUTROPHILS 6.13 1.80 - 7.70 x10'3/uL 10/28/2024 9:55 PM [facility] ABS. LYMPHOCYTES 3.33 1.00 - 4.80 x10'3/uL 10/28/2024 9:55 PM MAINFRAME ANALYST [facility] ABS. MONOCYTES 0.55 0.24 - 0.86 x10'3/uL 10/28/2024 9:55 PM MAINFRAME ANALYST [facility] ABS. EOSINOPHILS 0.07 0.04 - 0.36 x10'3/uL 10/28/2024 9:55 PM MAINFRAME ANALYST [facility] ABS. BASOPHILS 0.05 0.01 - 0.08 x10'3/uL 10/28/2024 9:55 PM MAINFRAME ANALYST [facility] ABS. IMMATURE GRANULOCYTES 0.05 0.00 - 0.49 x10'3/uL 10/28/2024 9:55 PM MAINFRAME ANALYST [facility] 10/28/2024 9:35 PM MAINFRAME ANALYST us Pam Saez PA LABORATORY Final Result Performing Organization Address City/State/[facility] Co de Phone Number [facility] [address] [place] [address], * XR CHEST PORTABLE (10/28/2024 8:39 PM MAINFRAME ANALYST) Anatomical Region Laterality Modality Chest Radiographic Rosi ging 10/28/2024 8:51 PM MAINFRAME ANALYST Impressions 10/28/2024 8:52 PM MAINFRAME ANALYST IMPRESSION: No acute findings. Ordered By: PAM SAEZ Interpreted By: Dima Manzanares MD, 10/28/2024 8:51 PM Narrative 10/28/2024 8:[address] [facility] [address] [place], [place] [address] Examination: X-ray chest, 1 view Exam time: 10/28/2024 at 2032 hours Clinical history: Cough. Flu. Comparison: 01/08/2024 Technique: Single frontal upright view of the chest obtained. FINDINGS: No parenchymal consolidation. No discrete pneumothorax or large pleural effusion. Cardiomediastinal silhouette unchanged. Procedure Note Dima Manzanares MD - 10/28/[address] [address] Examination: X-ray chest, 1 view Exam time: 10/28/2024 at 2032 hours Clinical history: Cough. Flu. Comparison: 01/08/2024 Technique: Single frontal upright view of the chest obtained. FINDINGS: No parenchymal consolidation. No discrete pneumothorax or large pleuraleffusion. Cardiomediastinal silhouette unchanged. IMPRESSION: No acute findings. Ordered By: PAM SAEZ Interpreted By: Dima Manzanares MD, 10/28/2024 8:51 PM us Pam Saez OR GENERAL IMAGING Final Result * MAMMOGRAM GENERIC (08/19/2020) Anatomical Region Laterality Modality Other 08/19/2020 Narrative 08/19/2020 Ordered by an unspecified provider. us Documents Scanned SCANNING Final Result * (ABNORMAL) LIPID PANEL (12/08/2018 9:28 AM MAINFRAME ANALYST) CHOLESTEROL 182 <200 MG/DL 12/08/2018 7:45 PM MAINFRAME ANALYST [facility] TRIGLYCERIDES 96 <150 MG/DL 12/08/2018 7:45 PM MAINFRAME ANALYST [facility] HDL 57 >40.0 MG/DL 12/08/2018 7:45 PM [facility] LDL (CALCULATED) 106(H) <100 MG/DL 12/08/2018 7:45 PM MAINFRAME ANALYST [facility] NON HDL CHOLESTEROL 125 <130 MG/DL 12/08/2018 7:45 PM [facility] CHOL/HDL RATIO 3.2 0.0 - 4.5 12/08/2018 7:45 PM [facility] VLDL CALCULATION 19 5 - 55 MG/DL 12/08/2018 7:45 PM [facility] LIPID INTERPRETATION 12/08/2018 7:45 PM [facility] Comment: NIH CONCENSUS REPORT RECOMMENDATIONS: [...] ?LDL ? >=160 ?>=130 12/08/2018 9:28 AM MAINFRAME ANALYST us Rose Marie Norton NP LABORATORY Final Result [facility] [address] [place] [address], [place] [phone] from Last 3 Months or Most Recently Relevant to Health Maintenance Insurance [facility] Advance Directives * Full Code (Latest Code Status on File) Date Activated Date Inactivated Comments 06/01/2019 2:39 AM 06/04/2019 12:03 PM Care Teams Racebook Writer Relationship Specialty Start Date End Date Juanis Richards NP [address] [place] [phone] PCP - General Nurse Practitioner Family 10/28/24
--- OUTSIDE RECORDS SUMMARY | 2024-11-04 23:56 | XMS_ITS | Encounter Summary ---
Author Organization [facility] Address [address] [place] [address]. [place], [place] [address] [place] [address] Care Team Providers Care Management Associate Name Role Phone None, Provider Primary Care [...] Coronavirus/COVID-19? No / Unsure 01/01/2023 12:20 AM JOB HONER documented as of this encounter Functional Status [...] documented as of this encounter Care Teams Management Associate Relationship Specialty Start Date End Date None, Provider, PCP - General 05/06/21 10/27/24 documented as of this encounter
--- OUTSIDE RECORDS SUMMARY | 2024-11-04 23:56 | XMS_ITS | Encounter Summary ---
Author Organization [facility] Address [address] [place] [address]. [place], [place] [id number] [place] [address] Care Team Providers Care Bridge Inspector Name Role Phone None, Provider Primary [...] Coronavirus/COVID-19? No / Unsure 12/31/2022 11:52 PM CONSULTING SALES MANAGER documented as of this encounter Functional [...] documented as of this encounter Care Teams Bridge Inspector Relationship Specialty Start Date End Date None, Provider, PCP - General 05/06/21 10/27/24 documented as of this encounter
--- OUTSIDE RECORDS SUMMARY | 2024-11-04 23:56 | XMS_ITS | Encounter Summary ---
Author Organization [facility] Address [address] [place] [address]. [place], [place] [address] [place] [id number] Care Team Providers Care Enterprise Manager Name Role Phone None, Provider Primary Care Provider Unavaila ble Encounter Details Date Type Department Care Team (Latest Contact Info) Description 01/03/2023 Scan [facility] DEFAULT Scanned, Doc [facility] Social [...] Coronavirus/COVID-19? No / Unsure 01/01/2023 12:20 AM PRINTED CIRCUIT BOARDS INSPECTOR documented as of this encounter Functional [...] documented as of this encounter Care Teams Enterprise Manager Relationship Specialty Start Date End Date None, Provider, PCP - General 05/06/21 10/27/24 documented as of this encounter
--- OUTSIDE RECORDS SUMMARY | 2024-11-04 23:56 | XMS_ITS | Encounter Summary ---
Author Organization [facility] Address [address] [place] [address]. [place], [place] [address] [place] [address] Care Team Providers Care Manufacturing Production Manager Name Role Phone None, Provider MD Primary Care Provider Unavaila ble Reason for Visit * Reason Comments Hypertension Encounter Details Date Type Department Care Team (Late st Contact Info) Description 12/24/2022 12:45 PM MUCK OPERATOR - 12/24/2022 2:48 PM MUCK OPERATOR Emergency [facility] [place] [address] Radha Pedro NP [address] [phone] Hypertension Discharge Disposition: Home or Self Care [...] Coronavirus/COVID-19? No / Unsure 12/24/2022 11:38 AM MUCK OPERATOR documented as of this encounter Last Filed Vital Signs Vital Sign Reading Time Taken Comments Blood Pressure 144/95 12/24/2022 11:43 AM MUCK OPERATOR Pulse 63 12/24/2022 11:43 AM MUCK OPERATOR Temperature 36.6 ??C (97.8 ??F) 12/24/2022 11:[address] Respiratory Rate 16 12/24/2022 11:43 AM MUCK OPERATOR Oxygen Saturation 100% 12/24/2022 11:43 AM MUCK OPERATOR Inhaled Oxygen Concentration - - Weight 73.9 kg (163 lb) 12/24/2022 11:43 AM MUCK OPERATOR Height 154.9 cm (5' 1 ) 12/24/2022 11:43 AM MUCK OPERATOR Body Mass Index 30.8 12/24/2022 11:43 AM MUCK OPERATOR documented in this encounter Functional Status [...] Pedro NP - 12/24/2022 11:47 AM CST [place], [place] EMERGENCY DEPARTMENT ENCOUNTER Chief Complaint Chief [...] forcep performed by Kathy Bailey MD at [facility] ??? HYSTERECTOMY FAMILY HISTORY: Family History Problem [...] of 12/24/22 ECG [address] [facility] Test Date: 2022-12-24 Pat Name: MARIA DEL CARMEN CERVANTES Department: 41 Room: Gender: Female Level Vial Inside Grinder: [id number] : 1975 Requested By: RADHA PEDRO Order Number: [id number] Reading MD: Measurements Intervals [place] Rate: 55 P: 48 ND: 129 QRS: 24 QRSD: 105 T: 26 [...] XR CHEST PORTABLE Final Result by User, [id number] (12/24 654) EXAM: XR CHEST PORTABLE DATE: 12/24/2022 12:58 [...] Tue12/24/2022, Until Tue01/23/2023, Eprescribe Class: Eprescribe Pharmacy: [id number] - [address] AT [facility] [address] (Ph #: [phone]) Disposition: Discharge Follow-Up: Provider Tania, Use of Dragon for dictation, please excuse any sound alike words. Radha Pedro NP 12/24/221852 Cosigned by Enio Fischer MD at 12/25/2022 7:46 AM MUCK OPERATOR OPERATOR OPERATOR * Jeny Davila RN - 12/24/2022 11:45 AM CST Pt ambulated to the Er with co hypertension. Pt had her co-worker check her BP, and it was high . Pt is AOx4. OPERATOR documented in this encounter Plan of Treatment Not on file documented as of this encounter Procedures Procedure Name Priority Date/Time Associated Diagnosis Comments COMPREHENSIVE METABOLIC PANEL STAT 12/24/2022 1:32 PM MUCK OPERATOR CBC W/DIFF AUTOMATED STAT 12/24/2022 1:32 PM MUCK OPERATOR XR CHEST PORTABLE STAT 12/24/2022 12: 58 PM MUCK OPERATOR ECG 12-LEAD Routine 12/24/2022 12:51 PM MUCK OPERATOR documented in this encounter Results * (ABNORMAL) COMPREHENSIVE METABOLIC PANEL (12/24/2022 1:32 PM MUCK OPERATOR) [facility] GLUCOSE 99 70 - 99 MG/DL 12/24/2022 1:58 PM MUCK OPERATOR [facility] BUN 27(H) 7 - 18 MG/DL 12/24/2022 1:58 PM MUCK OPERATOR [facility] CREATININE S/P/B 0.80 0.55 - 1.02 MG/DL 12/24/2022 1:58 PM MUCK OPERATOR [facility] SODIUM S/P/B 137 136 - 145 MMOL/L 12/24/2022 1:58 PM MUCK OPERATOR [facility] POTASSIUM S/P/B 3.9 3.5 - 5.1 MMOL/L 12/24/2022 1:58 PM MUCK OPERATOR [facility] CHLORIDE S/P/B 104 100 - 108 MMOL/L 12/24/2022 1:58 PM MUCK OPERATOR [facility] CO2 25.3 21 - 32 MMOL/L 12/24/2022 1:58 PM [facility] CALCIUM S/P/B 9.9 8.5 - 10.1 MG/DL 12/24/2022 1:58 PM MUCK OPERATOR [facility] BILIRUBIN TOTAL S/P/B 0.5 0.2 - 1.2 MG/DL 12/24/2022 1:58 PM MUCK OPERATOR [facility] Comment: THIS ASSAY IS NOT RECOMMENDED FOR PATIENTS UNDERGOING TREATMENT WITH ELTROMBOPAG DUE TO THE POTENTIAL FOR FALSELY ELEVATED RESULTS. TOTAL PROTEIN S/P/B 7.2 6.4 - 8.2 G/DL 12/24/2022 1:58 PM MUCK OPERATOR [facility] ALBUMIN S/P/B 3.8 3.4 - 5.0 G/DL 12/24/2022 1:58 PM MUCK OPERATOR [facility] AST 12(L) 15 - 37 U/L 12/24/2022 1:58 PM MUCK OPERATOR [facility] ALT 22 14 - 55 U/L 12/24/2022 1:58 PM MUCK OPERATOR [facility] ALKALINE PHOSPHATASE S/P/B 66 50 - 136 U/L 12/24/2022 1:58 PM MUCK OPERATOR [facility] ANION GAP 7.7 5 - 15 MMOL/L 12/24/2022 1:58 PM MUCK OPERATOR [facility] BUN CREATININE RATIO 33.8(H) 6 - 26 12/24/2022 1:58 PM MUCK OPERATOR [facility] A/G RATIO 1.1 1.0 - 2.0 RATIO 12/24/2022 1:58 PM MUCK OPERATOR [facility] GFR ESTIMATE >90 >90 ML/MIN/1.7 3 M2 12/24/2022 1:58 PM MUCK OPERATOR [facility] Comment: NOTE: eGFR is not calculated for patients <18 years of age. This is an estimated GFR calculation using the new CKD EPI creatinine equation without race and so does not require a correction factor for race. This estimated GFR should not be used for calculating drug doses. 12/24/2022 1:32 PM MUCK OPERATOR Radha Pedro NP LABORATORY Final Result [facility] [address] [place] [address], * (ABNORMAL) CBC W/DIFF AUTOMATED (12/24/2022 1:32 PM MUCK OPERATOR) WBC 12.3(H) 4.5 - 11.0 x10'3/uL 12/24/2022 1:41 PM MUCK OPERATOR [facility] RBC 4.51 4.20 - 5.40 x10'6/uL 12/24/2022 1:41 PM [facility] HGB 14.5 12.0 - 16.0 G/DL 12/24/2022 1:41 PM [facility] HCT 43.2 38.0 - 48.0 % 12/24/2022 1:41 PM [facility] MCV 95.8 81.0 - 99.0 FL 12/24/2022 1:41 PM [facility] MCH 32.2(H) 27.0 - 31.0 PG 12/24/2022 1:41 PM [facility] MCHC 33.6 32.0 - 36.0 G/DL 12/24/2022 1:41 PM [facility] RDW 12.7 11.5 - 14.5 % 12/24/2022 1:41 PM [facility] PLT 215 130 - 400 x10'3/uL 12/24/2022 1:41 PM [facility] MPV 9.9 9.3 - 12.2 FL 12/24/2022 1:41 PM [facility] DIFFERENTIAL TYPE AUTOMATED DIFFERENTIAL 12/24/2022 1:41 PM [facility] NEUTROPHILS % 77.4 % 12/24/2022 1:41 PM [facility] LYMPHOCYTES % 17.4 % 12/24/2022 1:41 PM [facility] MONOCYTES % 4.8 % 12/24/2022 1:41 PM [facility] EOSINOPHILS 0.0 % 12/24/2022 1:41 PM [facility] BASOPHILS 0.2 % 12/24/2022 1:41 PM [facility] IMMATURE GRANS % 0.2 % 12/24/19 23 1:41 PM MUCK OPERATOR [facility] ABS. NEUTROPHILS TOTAL 9.48(H) 1.80 - 7.70 x10'3/uL 12/24/2022 1:41 PM MUCK OPERATOR [facility] ABS. LYMPHOCYTES 2.13 1.00 - 4.80 x10'3/uL 12/24/2022 1:41 PM MUCK OPERATOR [facility] ABS. MONOCYTES 0.59 0.24 - 0.86 x10'3/uL 12/24/2022 1:41 PM MUCK OPERATOR [facility] ABS. EOSINOPHILS 0.00(L) 0.04 - 0.36 x10'3/uL 12/24/2022 1:41 PM MUCK OPERATOR [facility] ABS. BASOPHILS 0.02 0.01 - 0.08 x10'3/uL 12/24/2022 1:41 PM MUCK OPERATOR [facility] ABS. IMMATURE GRANULOCYTES 0.03 0.00 - 0.49 x10'3/uL 12/24/2022 1:41 PM MUCK OPERATOR [facility] 12/24/2022 1:32 PM MUCK OPERATOR us Radha Pedro NP LABORATORY Final Result Performing Organization Address City/State/[facility] Co de Phone Number [facility] [address] [place] [address], * XR CHEST PORTABLE (12/24/2022 12:58 PM MUCK OPERATOR) Anatomical Region Laterality Modality Chest Radiographic Rosi ging 12/24/2022 1:13 PM MUCK OPERATOR Impressions 12/24/2022 1:15 PM MUCK OPERATOR IMPRESSION: Normal exam. Referred By: ?? 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 [address] [place] ? Test Date: ?2022-12-24 Pat Name: ? MARIA DEL CARMENMARTY CERVANTES ?Department: ?? 41 ? Room: ? TG4 Gender: ? Female ? Level Vial Inside Grinder: ?? [id number] : ?1975 ? Requested By: RADHA PEDRO Order Number: [id number] ? Reading MD: ?? Neil Augustin ? Measurements Intervals ?[place] ? Rate: ? 55 ? P: ?48 ND: ? 129 ?QRS: ?24 QRSD: ? 105 ?T: ?26 QT: ? 427 ? QTc: ?409 ? Interpretive Statements SINUS BRADYCARDIA No previous ECG available for comparison Preliminary EKG interpretation by ED Physician No ischemic changes Radha Pedro APRN CRITICAL ALERT ISSUED ON 12-24-2022 13:02:56 OPERATOR Procedure Note Neil Augustin MD - 12/24/2022 [facility] [address] Test Date: 2022-12-24 Pat Name: MARIA DEL CARMEN CERVANTES Department: 41 Room: [facility] Gender: Female Level Vial Inside Grinder: [id number] : 1975 Requested By: RADHA PEDRO Order Number: [id number] Reading MD: Neil Augustin Measurements Intervals [place] Rate: 55 P: 48 ND: 129 QRS: 24 QRSD: 105 T: 26 QT: 427 QTc: 409 Interpretive Statements SINUS BRADYCARDIA No previous ECG available for comparison Preliminary EKG interpretation by ED Physician No ischemic changes Radha Pedro APRN CRITICAL ALERT ISSUED ON 12-24-2022 13:02:56 OPERATOR us Radha Pedro HEAVY EQUIPMENT MECHANIC ECG ORDERABLES Final Result [facility] [place] [facility] ([facility]) [facility] documented in this encounter Visit Diagnoses Diagnosis Hypertension- Primary Unspecified essential hypertension documented in this encounter Additional Health Concerns Assessment Noted Time PHQ-9 Depression Total Score: 2 07/17/20 20 9:06 AM CDT documented as of this encounter Care Teams Manufacturing Production Manager Relationship Specialty Start Date End Date None, Provider, PCP - General 05/06/21 10/27/24 documented as of this encounter
--- OUTSIDE RECORDS SUMMARY | 2024-11-04 23:56 | XMS_ITS | Encounter Summary ---
Author Organization [facility] Address [address] [place] [address]. [place], [place] [id number] [place] [address] Care Team Providers Care Management Consultant Name Role Phone None, Provider MD Primary Care Provider Unavaila ble Reason for Visit * Reason Comments Urinary Symptoms Encounter Details Date Type Department Care Team (Late st Contact Info) Description 12/23/2022 5:27 PM SUPERVISOR LAMP SHADES - 12/23/2022 6:14 PM SUPERVISOR LAMP SHADES Emergency [facility] [place] [address] Heather Kirkpatrick, INSERTER OPERATOR-BC Urinary Symptoms Discharge Disposition: Home or Self [...] Coronavirus/COVID-19? No / Unsure 12/23/2022 4:49 PM SUPERVISOR LAMP SHADES documented as of this encounter Last Filed Vital Signs Vital Sign Reading Time Taken Comments Blood Pressure 151/98 12/23/2022 6:00 PM SUPERVISOR LAMP SHADES Pulse 75 12/23/2022 4:49 PM SUPERVISOR LAMP SHADES Temperature 36.8 ??C (98.2 ??F) 12/23/2022 4:49 PM CS T Respiratory Rate 18 12/23/2022 4:49 PM SUPERVISOR LAMP SHADES Oxygen Saturation 98% 12/23/2022 4:49 PM SUPERVISOR LAMP SHADES Inhaled Oxygen Concentration - - Weight 73.9 kg (163 lb) 12/23/2022 4:51 PM SUPERVISOR LAMP SHADES Height 154.9 cm (5' 1 ) 12/23/2022 4:51 PM SUPERVISOR LAMP SHADES Body Mass Index 30.8 12/23/2022 4:51 PM SUPERVISOR LAMP SHADES documented in this encounter Functional Status * [...] Discharge Instructions * Discharge Instructions* Heather Kirkpatrick INSERTER OPERATOR-BC - 12/23/2022 5:52 PM SUPERVISOR LAMP SHADES Please continue benadryl 25-50mg as needed for facial irritation. Please be sure to increase fluid intake. Please follow up with PCP for ongoing symptoms. Return to care for worsening symptoms RVISOR LAMP SHADES * Attachments The following attachments cannot be sent through Care Everywhere. * Dysuria Discharge Instructions, Adult (Swiss) documented in this encounter Medications at [...] rash. Denies new products, facial wash, etc. RVISOR LAMP SHADES * JULIAN Smith - 12/23/2022 4:47 PM [...] forcep performed by Kathy Bailey MD at [facility] ??? HYSTERECTOMY Family History Problem [...] Follow up instructions: Antonia Meeks MD [address] [id number] [id number] Call in 2 days If symptoms worsen JULIAN SMITH Please excuse any grammatical or spelling errors as this chart was documented using [employer], a dictation software. JULIAN Smith 12/23/22 5765 Cosigned by Kayla Tang MD at 12/23/2022 10:11 PM SUPERVISOR LAMP SHADES RVISOR LAMP SHADES RVISOR LAMP SHADES documented in this encounter Plan of Treatment Not on file documented as of this encounter Procedures Procedure Name Priority Date/Time Associated Diagnosis Comments HC URINALYSIS AUTO W/O MICRO STAT 12/23/2022 5:11 PM SUPERVISOR LAMP SHADES documented in this encounter Results * (ABNORMAL) URINALYSIS (12/23/2022 5:11 PM SUPERVISOR LAMP SHADES) SPECIMEN TYPE URINE CLEAN CATCH 12/23/2022 5:11 PM SUPERVISOR LAMP SHADES [facility] COLOR (U) LIGHT YELLOW 12/23/2022 5:46 PM SUPERVISOR LAMP SHADES [facility] TRANSPARENCY CLEAR 12/23/2022 5:46 PM SUPERVISOR LAMP SHADES [facility] SPECIFIC GRAVITY (U) 1.015 1.001 - 1.030 12/23/2022 5:46 PM SUPERVISOR LAMP SHADES [facility] U PH 6.0 5.0 - 9.0 12/23/2022 5:46 PM [facility] LEUKOCYTES (U) NEGATIVE NEGATIVE 12/23/2022 5:46 PM [facility] NITRITES NEGATIVE NEGATIVE 12/23/2022 5:46 PM [facility] PROTEIN (U) NEGATIVE <30 MG/DL 12/23/2022 5:46 PM SUPERVISOR LAMP SHADES [facility] URINE GLUCOSE NORMAL NORMAL MG/DL 12/23/2022 5:46 PM SUPERVISOR LAMP SHADES [facility] KETONES MG/DL (U) TRACE(A) NEGATIVE MG/DL 12/23/2022 5:46 PM SUPERVISOR LAMP SHADES [facility] UROBILINOGEN NORMAL NORMAL MG/DL 12/23/2022 5:46 PM SUPERVISOR LAMP SHADES [facility] BILIRUBIN (U) NEGATIVE NEGATIVE MG/DL 12/23/2022 5:46 PM SUPERVISOR LAMP SHADES [facility] BLOOD (U) NEGATIVE NEGATIVE 12/23/2022 5:46 PM SUPERVISOR LAMP SHADES [facility] CULTURE & SENSITIVITY INDICATED? CULTURE IS NOT INDICATED 12/23/2022 5:46 PM SUPERVISOR LAMP SHADES [facility] URINE SPECIMEN OBTAINED BY CLEAN CATCH PROCEDURE / Unknown 12/23/2022 5:11 PM SUPERVISOR LAMP SHADES us Heather Kirkpatrick INSERTER OPERATOR-BC URINE ORDERABLES Final Re sult [facility] [address] [place] [address], [place] [phone] documented in this encounter Visit Diagnoses Diagnosis [...] over 1-4 minutes. Given 12/23/2022 5:32 PM SUPERVISOR LAMP SHADES 5 mg Right Dorsal Gluteal documented in this encounter Active and Recently Administered Medications Times are shown in SUPERVISOR LAMP SHADES. Scheduled Medication Order 12/21/2022 12/22/2022 12/23/2022 dexamethasone [...] as of this encounter Care Teams Management Consultant Relationship Specialty Start Date End Date None, Provider, PCP - General 05/06/21 10/27/24 documented as of this encounter
--- OUTSIDE RECORDS SUMMARY | 2024-11-04 23:56 | XMS_ITS | Encounter Summary ---
Author Organization [facility] Address [address] [place] [address]. [place], [place] [address] [place] [address] Care Team Providers Care Supervisor Decorating Name Role Phone None, Provider Primary Care Provider Lenaa ble Encounter Details Date Type Department Care Team (Latest Contact Info) Description 01/01/2023 Scan [facility] Andre Bowles MD [address] [facility] [address] [address] Social History Tobacco Use Types Packs/Day Years [...] Coronavirus/COVID-19? No / Unsure 01/01/2023 12:20 AM ELECTROPLATER documented as of this encounter Functional Status [...] documented as of this encounter Care Teams Supervisor Decorating Relationship Specialty Start Date End Date None, Provider, PCP - General 05/06/21 10/27/24 documented as of this encounter
--- OUTSIDE RECORDS SUMMARY | 2024-11-04 23:56 | XMS_ITS | Encounter Summary ---
Author Organization [facility] Address [address] [place] [address]. [place], [place] [address] [place] [address] Care Team Providers Care Outbound Sales Advisor Name Role Phone None, Provider Primary Care [...] documented as of this encounter Care Teams Outbound Sales Advisor Relationship Specialty Start Date End Date None, Provider, PCP - General 05/06/21 10/27/24 documented as of this encounter
--- OUTSIDE RECORDS SUMMARY | 2024-11-04 23:56 | XMS_ITS | Encounter Summary ---
Author Organization [facility] Address [facility]. [place], [place] [address] [place] [address] Care Team Providers Care Rn Cardiovascular Name Role Phone None, Provider Primary Care Provider Unavaila ble Reason for Referral * Imaging (Emergency) - Closed Specialty Diagnoses / Procedures Referred By Contac t Referred To Contact RADIOLOGY Procedures CT ABD+PEL WO CON Cynthia Gonzalez PA [address] [address] Phone: tel: fax: Referral ID Status Reason Start Date Expiration Date Visits Re quested Visits Authorized [id number] Closed 05/06/2021 06/05/2022 1 1 Reason for Visit * Reason Comments Abdominal Pain Encounter Details Date Type Department Care Team (Latest Contact Info) Description 05/06/2021 1:54 PM CDT - 05/06/2021 3:20 PM CDT [facility] [address] [place] [address] Cynthia Gonzalez PA [address] [address] Abdominal Pain Discharge Disposition: Home [...] such as many narcotic drug combinations and omzr-brr-vudewlz cold medicines. --Again, it was a pleasure taking care of you. * Attachments The following attachments cannot be sent through Care Everywhere. * Diverticulitis (Luxembourgish) documented in this encounter Medications at Time of Discharge calcium carb-cholecalciferol 600-400 MG-UNIT Tab tablet 1 tablet daily. cefUROXime 500 MG tabletIndications:Ac [place] diverticulitis Take 1 tablet (500 mg total) by mouth 2 (two) times daily for 10 days. 20 tablet 04/28/2021 HYDROcodone-acetamin ophen 5-325 MG tabletIndications:Ac [place] Pain < 3 Day Supply Take 1 tablet by mouth every 6 (six) hours as needed for Pain. Indications: Acute Pain < 3 Day Supply 7 tablet 04/28/2021 1 multivitamin with minerals liquid Take 15 mLs by mouth daily. 3 omeprazole 40 MG capsule TAKE 1 CAPSULE BY MOUTH DAILY BEFORE BREAKFAST FOR GERD 04/02/2021 3 ondansetron 4 MG disintegrating tabletIndications:Ac [place] diverticulitis Take 1 tablet (4 mg total) [...] YADIRA Rich - 05/06/2021 2:22 PM CDT [facility]- [place], [place] HISTORICAL INFORMATION Primary Care Doctor: No [...] performed by Kathy Bailey MD at [facility] ??? HYSTERECTOMY CURRENT MEDICATIONS No current facility-administered [...] Gatherings with Friends and Family: ??? Attends Religion Services: ??? Active Member of Clubs or [...] ABD+PEL WO CON Final Result by User, [id number] (05/06 1510) EXAMINATION: CT Abdomen and Pelvis [...] Manzanares MD, 05/06/2021 3:01 PM [facility] Final Resul t * (ABNORMAL) URINALYSIS AUTO DIP (05/06/2021 2:22 PM CDT) SPECIMEN TYPE URINE CLEAN CATCH 05/06/2021 2:22 PM CDT [facility] COLOR (U) YELLOW 05/07/2021 8:14 AM CDT [facility] TRANSPARENCY CLEAR 05/07/2021 8:14 AM CDT [facility] SPECIFIC GRAVITY (U) >1.030(H) 1.001 - 1.030 05/07/2021 8:14 AM CDT [facility] U PH 6.0 5.0 - 9.0 05/07/2021 8:14 AM CDT [facility] LEUKOCYTES (U) NEGATIVE NEGATIVE 05/07/2021 8:14 AM CDT [facility] NITRITES NEGATIVE NEGATIVE 05/07/2021 8:14 AM CDT [facility] PROTEIN (U) NEGATIVE <30 MG/DL 05/07/2021 8:14 AM CDT [facility] URINE GLUCOSE NEGATIVE NEGATIVE MG/DL 05/07/2021 8:14 AM CDT [facility] KETONES MG/DL (U) 15(A) NEGATIVE MG/DL 05/07/2021 8:14 AM CDT [facility] UROBILINOGEN 0.2(A) NEGATIVE MG/DL 05/07/2021 8:14 AM CDT [facility] BILIRUBIN (U) SMALL(A) NEGATIVE MG/DL 05/07/2021 8:14 AM CDT [facility] BLOOD (U) TRACE(A) NEGATIVE 05/07/2021 8:14 AM CDT [facility] URINE SPECIMEN OBTAINED BY CLEAN CATCH PROCEDURE / Unknown 05/06/2021 2:22 PM CDT us Cynthia MAY URINE ORDERABLES Final Resu lt [place] [address] [place] [address], documented in this encounter Visit Diagnoses Diagnosis Diverticulitis- Primary Diverticulitis of colon (without mention of hemorrhage) documented in this encounter Additional Health Concerns Assessment Noted Time PHQ-9 Depression Total Score: 2 07/17/20 20 9:06 AM CDT documented as of this encounter Care Teams Rn Cardiovascular Relationship Specialty Start Date End Date None, Provider, PCP - General 05/06/21 10/27/24 documented as of this encounter
--- OUTSIDE RECORDS SUMMARY | 2024-11-04 23:56 | XMS_ITS | Encounter Summary ---
Author Organization [facility] Address [address] [place] [address]. [place], [place] [phone] [place] [address] Care Team Providers Care Seasonal Warehouse Associate Name Role Phone None, Provider Primary [...] documented as of this encounter Care Teams Seasonal Warehouse Associate Relationship Specialty Start Date End Date None, Provider, PCP - General 05/06/21 10/27/24 documented as of this encounter
--- OUTSIDE RECORDS SUMMARY | 2024-11-04 23:56 | XMS_ITS | Encounter Summary ---
Author Organization [facility] Address [address] [place] [address]. [place], [place] [address] [place] [address] Care Team Providers Care Sr Technical Sales Consultant Name Role Phone None, Provider Primary Care [...] Coronavirus/COVID-19? No / Unsure 12/24/2022 11:38 AM AIRPLANE PILOT HELPER documented as of this encounter Functional Status [...] documented as of this encounter Care Teams Sr Technical Sales Consultant Relationship Specialty Start Date End Date None, Provider, PCP - General 05/06/21 10/27/24 documented as of this encounter
--- OUTSIDE RECORDS SUMMARY | 2024-11-04 23:56 | XMS_ITS | Encounter Summary ---
Author Organization [facility] Address [address] [place] [address]. [place], [place] [address] [place] [address] Care Team Providers Care Director Of Consulting Services Name Role Phone None, Provider Primary Care Provider Unavaila ble Reason for Referral * Imaging (Emergency) - Closed Specialty Diagnoses / Procedures Referred By Contac t Referred To Contact RADIOLOGY Procedures CT ABD+PEL WO CON Estuardo Mattson PA 1 [place] [address] Phone: tel: fax: Referral ID Status Reason Start Date Expiration Date Visits Re quested Visits Authorized [id number] Closed 08/26/2022 08/26/2023 1 1 Reason for Visit * Reason Comments Flank Pain Encounter Details Date Type Department Care Team (Late st Contact Info) Description 08/26/2022 5:53 PM CDT - 08/26/2022 7:34 PM CDT Emergency [facility] Emergency Room [place], [place] [id number] Poonam Forman PA Flank Pain Discharge Disposition: [...] Everywhere. * Low Back Pain Discharge Instructions (Luxembourger) documented in this encounter Medications at Time [...] forcep performed by Kathy Bailey MD at [facility] ??? HYSTERECTOMY FAMILY HISTORY: Family History [...] CATCH COLOR (U) YELLOW TRANSPARENCY TURBID Specific Sunburst (U) 1.041 (H) 1.001 - 1.030 U [...] ABD+PEL WO CON Final Result by User, [id number] (08/26 1834) EXAMINATION: CT ABDOMEN/PELVIS WITHOUT CONTRAST [...] daily as needed for Muscle Spasms., Starting [facility] 08/26/2022, Until 09/05/2022 at 2359, Eprescribe Class: Eprescribe Pharmacy: [facility] #[id number] AT [facility] & [address] (Ph #: [phone]) lidocaine (LIDODERM) 5 % Place 1 patch onto the skin daily for 10 days. Remove & Discard patch within 12 hours, Starting [facility] 08/26/2022, Until 09/05/2022, Eprescribe Class: Eprescribe Pharmacy: [facility] #[id number] - [place] [address] [address] ( #: [phone]) Disposition: Discharge Follow-Up: No follow-up provider specified. [...] URINE CLEAN CATCH 08/26/2022 6:08 PM CDT [facility] COLOR (U) YELLOW 08/26/2022 6:21 PM CDT [facility] TRANSPARENCY TURBID 08/26/2022 6:21 PM CDT [facility] SPECIFIC GRAVITY (U) 1.041(H) 1.001 - 1.030 08/26/2022 6:21 PM CDT [facility] U PH 6.0 5.0 - 9.0 08/26/2022 6:21 PM T [facility] LEUKOCYTES (U) NEGATIVE NEGATIVE 08/26/2022 6:21 PM T [facility] NITRITES NEGATIVE NEGATIVE 08/26/2022 6:21 PM T [facility] PROTEIN (U) 30(H) <30 MG/DL 08/26/2022 6:21 PM T [facility] URINE GLUCOSE NORMAL NORMAL MG/DL 08/26/2022 6:21 PM T [facility] KETONES MG/DL (U) 20(A) NEGATIVE MG/DL 08/26/2022 6:21 PM T [facility] UROBILINOGEN 2.0(A) NORMAL MG/DL 08/26/2022 6:21 PM T [facility] BILIRUBIN (U) NEGATIVE NEGATIVE MG/DL 08/26/2022 6:21 PM T [facility] BLOOD (U) TRACE(A) NEGATIVE 08/26/2022 6:21 PM T [facility] CULTURE & SENSITIVITY INDICATED? CULTURE IS NOT INDICATED 08/26/2022 6:21 PM T [facility] MUCUS FEW /LPF 08/26/2022 6:21 PM T [facility] WBC/HPF 2 <6 /HPF 08/26/2022 6:21 PM T [facility] RBC/HPF 6(H) <6 /HPF 08/26/2022 6:21 PM T [facility] SQUAMOUS EPITHELIALS MANY /HPF 08/26/2022 6:21 PM [facility] URINE SPECIMEN OBTAINED BY CLEAN CATCH PROCEDURE / Unknown 08/26/2022 6:09 PM CDT us Estuardo MAY URINE ORDERABLES Final Res ult [facility] [address] [place] [address], [place] [phone] * (ABNORMAL) COMPREHENSIVE METABOLIC PANEL (08/26/2022 5:57 PM CDT) [facility] GLUCOSE 110(H) 70 - 99 MG/DL 08/26/2022 6:32 PM CDT [facility] BUN 19(H) 7 - 18 MG/DL 08/26/2022 6:32 PM CDT [facility] CREATININE S/P/B 0.90 0.55 - 1.02 MG/DL 08/26/2022 6:32 PM CDT [facility] SODIUM S/P/B 137 136 - 145 MMOL/L 08/26/2022 6:32 PM CDT [facility] POTASSIUM S/P/B 3.7 3.5 - 5.1 MMOL/L 08/26/2022 6:32 PM CDT [facility] CHLORIDE S/P/B 105 100 - 108 MMOL/L 08/26/2022 6:32 PM CDT [facility] CO2 27.7 21 - 32 MMOL/L 08/26/2022 6:32 PM CDT [facility] CALCIUM S/P/B 8.9 8.5 - 10.1 MG/DL 08/26/2022 6:32 PM CDT [facility] BILIRUBIN TOTAL S/P/B 0.4 0.2 - 1.2 MG/DL 08/26/2022 6:32 PM CDT [facility] Comment: THIS ASSAY IS NOT RECOMMENDED FOR PATIENTS UNDERGOING TREATMENT WITH ELTROMBOPAG DUE TO THE POTENTIAL FOR FALSELY ELEVATED RESULTS. TOTAL PROTEIN S/P/B 7.1 6.4 - 8.2 G/DL 08/26/2022 6:32 PM CDT [facility] ALBUMIN S/P/B 3.8 3.4 - 5.0 G/DL 08/26/2022 6:32 PM CDT [facility] AST 14(L) 15 - 37 U/L 08/26/2022 6:32 PM CDT [facility] ALT 25 14 - 55 U/L 08/26/2022 6:32 PM CDT [facility] ALKALINE PHOSPHATASE S/P/B 78 50 - 136 U/L 08/26/2022 6:32 PM CDT [facility] ANION GAP 4.3(L) 5 - 15 MMOL/L 08/26/2022 6:32 PM CDT [facility] BUN CREATININE RATIO 21.0 6 - 26 08/26/2022 6:32 PM CDT [facility] A/G RATIO 1.2 1.0 - 2.0 RATIO 08/26/2022 6:32 PM CDT [facility] GFR ESTIMATE 80(L) >90 ML/MIN/1.7 3 M2 08/26/2022 6:32 PM CDT [facility] Comment: NOTE: eGFR is not calculated for patients <18 years of age. This is an estimated GFR calculation using the new CKD EPI creatinine equation without race and so does not require a correction factor for race. This estimated GFR should not be used for calculating drug doses. 08/26/2022 5:57 PM CDT us Estuardo MAY LABORATORY Final Resu lt [facility] [address] [place] [address], [place] [phone] * (ABNORMAL) CBC W/DIFF AUTOMATED (08/26/2022 5:57 PM CDT) [facility] WBC 10.9 4.5 - 11.0 x10'3/uL 08/26/2022 6:09 PM CDT [facility] RBC 4.47 4.20 - 5.40 x10'6/uL 08/26/2022 6:09 PM CDT [facility] HGB 14.7 12.0 - 16.0 G/DL 08/26/2022 6:09 PM CDT [facility] HCT 42.7 38.0 - 48.0 % 08/26/2022 6:09 PM CDT [facility] MCV 95.5 81.0 - 99.0 FL 08/26/2022 6:09 PM CDT [facility] MCH 32.9(H) 27.0 - 31.0 PG 08/26/2022 6:09 PM CDT [facility] MCHC 34.4 32.0 - 36.0 G/DL 08/26/2022 6:09 PM CDT [facility] RDW 12.6 11.5 - 14.5 % 08/26/2022 6:09 PM CDT [facility] PLT 266 130 - 400 x10'3/uL 08/26/2022 6:09 PM CDT [facility] MPV 9.9 9.3 - 12.2 FL 08/26/2022 6:09 PM CDT [facility] DIFFERENTIAL TYPE AUTOMATED DIFFERENTIAL 08/26/2022 6:09 PM CDT [facility] NEUTROPHILS % 68.1 % 08/26/2022 6:09 PM CDT [facility] LYMPHOCYTES % 26.0 % 08/26/2022 6:09 PM CDT [facility] MONOCYTES % 4.6 % 08/26/2022 6:09 PM CDT [facility] EOSINOPHILS 0.5 % 08/26/2022 6:09 PM CDT [facility] BASOPHILS 0.5 % 08/26/2022 6:09 PM CDT [facility] IMMATURE GRANS % 0.3 % 08/26/20 6:09 PM CDT [facility] ABS. NEUTROPHILS TOTAL 7.42 1.80 - 7.70 x10'3/uL 08/26/2022 6:09 PM CDT [facility] ABS. LYMPHOCYTES 2.83 1.00 - 4.80 x10'3/uL 08/26/2022 6:09 PM CDT [facility] ABS. MONOCYTES 0.50 0.24 - 0.86 x10'3/uL 08/26/2022 6:09 PM CDT [facility] ABS. EOSINOPHILS 0.05 0.04 - 0.36 x10'3/uL 08/26/2022 6:09 PM CDT [facility] ABS. BASOPHILS 0.05 0.01 - 0.08 x10'3/uL 08/26/2022 6:09 PM CDT [facility] ABS. IMMATURE GRANULOCYTES 0.03 0.00 - 0.49 x10'3/uL 08/26/2022 6:09 PM CDT [facility] 08/26/2022 5:57 PM CDT us Estuardo MAY LABORATORY Final Resu lt [facility] [address] [place] [address], [place] [phone] documented in this encounter Visit Diagnoses Diagnosis [...] documented as of this encounter Care Teams Director Of Consulting Services Relationship Specialty Start Date End Date None, Provider, PCP - General 05/06/21 10/27/24 documented as of this encounter
--- OUTSIDE RECORDS SUMMARY | 2024-11-04 23:56 | XMS_ITS | Encounter Summary ---
Author Organization [facility] Address [facility] [place] [address] [place] [address] Care Team Providers Care Commercial Diver Name Role Phone Unavailable Primary Care Provider [...]
--- OUTSIDE RECORDS SUMMARY | 2024-11-04 23:56 | XMS_ITS | Encounter Summary ---
Author Organization [facility] Address [address] [place] [address]. [place], [place] [id number] [place] [address] Care Team Providers Care Gasoline Locomotive Crane Operator Name Role Phone None, Provider MD Primary Care Provider Unavaila ble Reason for Visit * Reason Comments Flu Like Symptoms Encounter Details Date Type Department Care Team (Late st Contact Info) Description 01/08/2024 1:09 PM SLATE TRIMMER - 01/08/2024 2:33 PM [facility] Emergency [facility] [place] [address] Ava Durham, YADIRA [address] [place], [place] [id number] Flu Like Symptoms Discharge Disposition: Home or [...] Comments Blood Pressure 120/88 01/08/2024 12:46 PM SLATE TRIMMER Pulse 70 01/08/2024 12:46 PM SLATE TRIMMER Temperature 36.6 ??C (97.8 ??F) 01/08/2024 12:[address] Respiratory Rate 18 01/08/2024 12:46 PM SLATE TRIMMER Oxygen Saturation 99% 01/08/2024 12:46 PM SLATE TRIMMER Inhaled Oxygen Concentration - - Weight 72.6 kg (160 lb) 01/08/2024 12:46 PM SLATE TRIMMER Height 160 cm (5' 3 ) 01/08/2024 12:46 PM SLATE TRIMMER Body Mass Index 28.34 01/08/2024 12:46 PM SLATE TRIMMER documented in this encounter Functional Status * [...] Instructions* YADIRA Jj - 01/08/2024 2:26 PM SLATE TRIMMER Take medications as directed for symptom relief. [...] care by your primary care physician or oracle hyperion consultant.Please mention to your follow-up physician that [...] such as many narcotic drug combinations and [id number] cold medicines. --Again, it was a pleasure taking care of you. E TRIMMER * Attachments The following attachments cannot be sent through Care Everywhere. * Viral Upper Respiratory Infection Discharge Instructions, Adult (Belizean) * Cough, Runny Nose, and the Common Cold Discharge Instructions ([place]an) documented in this encounter Medications at Time [...] toED for new or worsening emergent symptoms. E TRIMMER * Conner Lam CNA - 01/08/2024 2:12 PM CST PT ambulated 200 ft, O2 sat stayed above 96% for entirety. E TRIMMER * YADIRA Jj - 01/08/2024 1:18 PM [...] (three) timesdaily as needed. 01/08/24 Yes YADIRA jJ fluticasone propionate (FLONASE) 50 MCG/ACT nasal spray [...] forcep performed by Kathy Bailey MD at [facility] HYSTERECTOMY FAMILY HISTORY: Family History Problem Relation [...] ECG [address] [facility] 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 No ischemic [...] 15 capsule, Refills: 0 Class: Eprescribe Pharmacy: [facility] #[id number] - [address] AT [facility] [address] (Ph #: [phone]) fluticasone propionate (FLONASE) 50 MCG/ACT nasal spray 1-2 sprays by Nasal route daily. 1-2 spraysin each nostril qd; Start: 2 sprays in each nostril qd x1wk; Max: 2 sprays in each nostril/day Qty: 16 g, Refills: 0 Class: Eprescribe Pharmacy: [facility] #[id number] - [facility] [address] [place] [address] AT [facility] [address] (Ph #: [phone]) Disposition: Discharge Follow-Up: Kaylee Norman MD [address] [facility] [address] YADIRA JJ 01/08/2024 YADIRA Jj 01/08/24 1433 Cosigned by Kayla Tang MD at 01/08/2024 2:43 PM SLATE TRIMMER E TRIMMER E TRIMMER * Opal Cuevas RN - 01/08/2024 12:53 PM CST Patient 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 Patient reports feeling increasingly SOB. Vitals stable at this time. A&Ox4. E TRIMMER documented in this encounter Plan of Treatment Not on file documented as of this encounter Procedures Procedure Name Priority Date/Time Associated Diagnosis Comments ECG 12-LEAD STAT 01/08/2024 2:00 PM SLATE TRIMMER RAPID STREP A STAT 01/08/2024 1:57 PM SLATE TRIMMER XR CHEST PA+LAT STAT 01/08/2024 1:20 PM SLATE TRIMMER CORONAVIRUS (COVID 19) STAT 01/08/2024 1:16 PM SLATE TRIMMER INFLUENZA A & B STAT 01/08/2024 1:16 PM SLATE TRIMMER documented in this encounter Results * ECG 12 lead (01/08/2024 2:00 PM SLATE TRIMMER) 01/08/2024 2:00 PM SLATE TRIMMER Narrative [facility] ([facility] - 01/08/2024 2:01 PM SLATE TRIMMER ?[facility]le`delvis Chen ? [address] [place] ? Test Date: ?2024-01-08 Pat Name: ? MARIA DEL CARMEN CERVANTES ?Department: ?? 41 ? Room: ? [id number] Gender: ? Female ? Stage Electrician Helper: ?? : ?1975 ? Requested By: AVA DURHAM Order Number: [id number] ? Reading MD: ?? Neil Augustin ? Measurements Intervals ?[place] ? Rate: ? 54 ? P: ?63 AK: ? 154 ?QRS: ?42 QRSD: ? 86 ? T: ?40 QT: ? 446 ? QTc: ?423 ? Interpretive Statements SINUS BRADYCARDIA Compared to ECG 01/01/2023 00:21:51 Sinus rhythm no longer present E TRIMMER Procedure Note Neil Augustin MD - 01/08/[address] [facility] [address] Test Date: 2024-01-08 Pat Name: MARIA DEL CARMEN CERVANTES Department: 41 Room: [place] [address] Gender: Female Stage Electrician Helper: : 1975 Requested By: AVA DURHAM Order Number: [id number] Reading MD: Neil Augustin Measurements Intervals [place] Rate: 54 P: 63 AK: 154 QRS: 42 QRSD: 86 T: 40 QT: 446 QTc: 423 Interpretive Statements SINUS BRADYCARDIA Compared to ECG 01/01/2023 00:21:51 Sinus rhythm no longer present E TRIMMER us Ava MAY ECG ORDERABLES Final Result [facility] RAD * RAPID STREP A (01/08/2024 1:57 PM SLATE TRIMMER) SPECIMEN TYPE THROAT 01/08/2024 1:57 PM SLATE TRIMMER [facility] RAPID STREP TEST NEGATIVE NEGATIVE 01/08/2024 2:17 PM SLATE TRIMMER [facility] STRUCTURE OF ANTERIOR PORTION OF NECK / Unknown 01/08/2024 1:57 PM SLATE TRIMMER Ava MAY MICROBIOLOGY - GENERAL ORDERA BLES Final Result [facility] [address] [place] [address], * XR CHEST PA+LAT (01/08/2024 1:20 PM SLATE TRIMMER) Anatomical Region Laterality Modality Chest Radiographic Rosi ging 01/08/2024 1:29 PM SLATE TRIMMER Impressions 01/08/2024 1:30 PM SLATE TRIMMER IMPRESSION: 1. ??NO RADIOGRAPHIC EVIDENCE OF ACTIVE DISEASE THE CHEST. Signed: Dionicio Ribeiro MD Referred By: ?? Interpreted By: Dionicio Ribeiro MD, 01/08/2024 1:29 PM Narrative 01/08/2024 1:30 PM SLATE TRIMMER PATIENT NAME: MARIA DEL CARMEN CERVANTES EXAM: [...] A & B, RAPID (01/08/2024 1:16 PM SLATE TRIMMER) SPECIMEN TYPE NASAL 01/08/2024 1:49 PM SLATE TRIMMER [facility] INFLUENZA A NEGATIVE NEGATIVE 01/08/2024 2:18 PM SLATE TRIMMER [facility] INFLUENZA B NEGATIVE NEGATIVE 01/08/2024 2:18 PM SLATE TRIMMER [facility] Comment: Interpretation: Negative for Influenza A [...] NASAL STRUCTURE / Unknown 01/08/2024 1:16 PM SLATE TRIMMER Estuardo MAY MICROBIOLOGY - GENERAL ORD ERABLES Final Result [facility] [address] [place] [address], [place] [phone] * CORONAVIRUS (COVID 19) (01/08/2024 1:16 PM SLATE TRIMMER) CORONAVIRUS SARS COV 2 RNA NEGATIVE NEGATIVE 01/08/2024 2:17 PM SLATE TRIMMER [facility] Comment: NEGATIVE RESULTS DO NOT RULE [...] SARS-COV-2. SPECIMEN TYPE NASAL 01/08/2024 1:16 PM SLATE TRIMMER [facility] NASAL STRUCTURE / Unknown 01/08/2024 1:16 PM SLATE TRIMMER us Estuardo MAY MICROBIOLOGY - GENERAL ORD ERABLES Final Result [facility] [address] [place] [address], documented in this encounter Visit Diagnoses Diagnosis Viral URI with cough- Primary Acute upper respiratory infections of unspecified site documented in this encounter Additional Health Concerns Infection Onset Date Last Indicated Resolved Time COVID-19 Rule Out 01/08/2024 01/08/2024 01/08/2024 2:18 PM SLATE TRIMMER Assessment Noted Time PHQ-9 Depression Total Score: 2 07/17/20 20 9:06 AM CDT documented as of this encounter Care Teams Gasoline Locomotive Crane Operator Relationship Specialty Start Date End Date None, Provider, PCP - General 05/06/21 10/27/24 documented as of this encounter
--- OUTSIDE RECORDS SUMMARY | 2024-11-04 23:56 | XMS_ITS | Encounter Summary ---
Author Organization [facility] Address [address] [place] [address]. [place], [place] [address] [place] [address] Care Team Providers Care Manager Heavy Equipment Name Role Phone None, Provider Primary Care Provider Unavaila ble Reason for Referral * Imaging (Emergency) - Closed Specialty Diagnoses / Procedures Referred By Contac t Referred To Contact RADIOLOGY Procedures CT ABD+PEL WO CON Cynthia Gonzalez PA [address] [address] Phone: tel: fax: Referral ID Status Reason Start Date Expiration Date Visits Re quested Visits Authorized [id number] Closed 06/01/2023 06/01/2024 1 1 Reason for Visit * Reason Comments Abdominal Pain Encounter Details Date Type Department Care Team (Late st Contact Info) Description 06/01/2023 10:31 AM CDT - 06/01/2023 12:25 PM CDT Emergency [facility] [place] [address] Cynthia Gonzalez PA [address] [address] Abdominal Pain Discharge Disposition: Home [...] care by your primary care physician or student union consultant.Please mention to your follow-up physician that [...] such as many narcotic drug combinations and kedi-pay-hhaekyi cold medicines. * Attachments The following attachments cannot be sent through Care Everywhere. * Diverticulitis (Divehi) documented in this encounter Medications at Time [...] YADIRA Rich - 06/01/2023 10:09 AM CDT [place] EMERGENCY DEPARTMENT ENCOUNTER HISTORICAL INFORMATION Primary [...] forcep performed by Kathy Bailey MD at [facility] GI HYSTERECTOMY CURRENT MEDICATIONS No current facility-administered [...] ABD+PEL WO CON Final Result by User, [email or web address] (06/01 1113) EXAMINATION: CT ABDOMEN PELVIS WITHOUT [...] Tue06/01/2023, Until Tue06/08/2023, Eprescribe Class: Eprescribe Pharmacy: [id number] [address] [place] [address] [facility] (Ph #: [phone]) metroNIDAZOLE (FLAGYL) 500 MG tablet Take 1 tablet (500 mg total) by mouth 2 (two) times a day for 7 days., Starting Tue06/01/2023, Until Tue06/08/2023, Eprescribe Class: Eprescribe Pharmacy: [facility] [address] [place] [address] AT [facility] OF [facility] & [facility] (Ph #: [phone]) YADIRA RICH PA 06/01/23 135 Cosigned by [...] COMPREHENSIVE METABOLIC PANEL (06/01/2023 11:00 AM CDT) [facility] GLUCOSE 84 70 - 99 MG/DL 06/01/2023 11:42 AM CDT [facility] BUN 16 7 - 18 MG/DL 06/01/2023 11:42 AM CDT [facility] CREATININE S/P/B 0.79 0.55 - 1.02 MG/DL 06/01/2023 11:42 AM CDT [facility] SODIUM S/P/B 138 136 - 145 MMOL/L 06/01/2023 11:42 AM CDT [facility] POTASSIUM S/P/B 4.6 3.5 - 5.1 MMOL/L 06/01/2023 11:42 AM CDT [facility] CHLORIDE S/P/B 106 100 - 108 MMOL/L 06/01/2023 11:42 AM CDT [facility] CO2 31.9 21 - 32 MMOL/L 06/01/2023 11:42 AM CDT [facility] CALCIUM S/P/B 9.0 8.5 - 10.1 MG/DL 06/01/2023 11:42 AM CDT [facility] BILIRUBIN TOTAL S/P/B 0.9 0.2 - 1.2 MG/DL 06/01/2023 11:42 AM CDT [facility] Comment: THIS ASSAY IS NOT RECOMMENDED FOR PATIENTS UNDERGOING TREATMENT WITH ELTROMBOPAG DUE TO THE POTENTIAL FOR FALSELY ELEVATED RESULTS. TOTAL PROTEIN S/P/B 7.6 6.4 - 8.2 G/DL 06/01/2023 11:42 AM CDT [facility] ALBUMIN S/P/B 3.7 3.4 - 5.0 G/DL 06/01/2023 11:42 AM CDT [facility] AST 17 15 - 37 U/L 06/01/2023 11:42 AM CDT [facility] ALT 19 14 - 55 U/L 06/01/2023 11:42 AM CDT [facility] ALKALINE PHOSPHATASE S/P/B 80 50 - 136 U/L 06/01/2023 11:42 AM CDT [facility] ANION GAP 0.1(L) 5 - 15 MMOL/L 06/01/2023 11:42 AM CDT [facility] BUN CREATININE RATIO 20.3 6 - 06/01/2023 11:42 AM CDT [facility] A/G RATIO 0.9(L) 1.0 - 2.0 RATIO 06/01/2023 11:42 AM CDT [facility] GFR ESTIMATE >90 >90 ML/MIN/1.7 3 M2 06/01/2023 11:42 AM CDT [facility] Comment: NOTE: eGFR is not calculated for patients <18 years of age. This is an estimated GFR calculation using the new CKD EPI creatinine equation without race and so does not require a correction factor for race. This estimated GFR should not be used for calculating drug doses. 06/01/2023 11:0 0 AM CDT us Cynthia MAY LABORATORY Final Resul t [facility] [address] [place] [address], * (ABNORMAL) CBC W/DIFF AUTOMATED (06/01/2023 11:00 AM CDT) WBC 11.2(H) 4.5 - 11.0 x10'3/uL 06/01/2023 11:11 AM CDT [facility] RBC 4.47 4.20 - 5.40 x10'6/uL 06/01/2023 11:11 AM CDT [facility] HGB 14.1 12.0 - 16.0 G/DL 06/01/2023 11:11 AM CDT [facility] HCT 43.0 38.0 - 48.0 % 06/01/2023 11:11 AM CDT [facility] MCV 96.2 81.0 - 99.0 FL 06/01/2023 11:11 AM CDT [facility] MCH 31.5(H) 27.0 - 31.0 PG 06/01/2023 11:11 AM CDT [facility] MCHC 32.8 32.0 - 36.0 G/DL 06/01/2023 11:11 AM CDT [facility] RDW 13.2 11.5 - 14.5 % 06/01/2023 11:11 AM CDT [facility] PLT 228 130 - 400 x10'3/uL 06/01/2023 11:11 AM CDT [facility] MPV 9.8 9.3 - 12.2 FL 06/01/2023 11:11 AM CDT [facility] DIFFERENTIAL TYPE AUTOMATED DIFFERENTIAL 06/01/2023 11:11 AM CDT [facility] NEUTROPHILS % 71.5 % 06/01/2023 11:11 AM CDT [facility] LYMPHOCYTES % 20.4 % 06/01/2023 11:11 AM CDT [facility] MONOCYTES % 6.0 % 06/01/2023 11:11 AM CDT [facility] EOSINOPHILS 1.2 % 06/01/2023 11:11 AM CDT [facility] BASOPHILS 0.5 % 06/01/2023 11:11 AM CDT [facility] IMMATURE GRANS % 0.4 % 06/01/20 11:11 AM CDT [facility] ABS. NEUTROPHILS TOTAL 8.03(H) 1.80 - 7.70 x10'3/uL 06/01/2023 11:11 AM CDT [facility] ABS. LYMPHOCYTES 2.29 1.00 - 4.80 x10'3/uL 06/01/2023 11:11 AM CDT [facility] ABS. MONOCYTES 0.67 0.24 - 0.86 x10'3/uL 06/01/2023 11:11 AM CDT [facility] ABS. EOSINOPHILS 0.14 0.04 - 0.36 x10'3/uL 06/01/2023 11:11 AM CDT [facility] ABS. BASOPHILS 0.06 0.01 - 0.08 x10'3/uL 06/01/2023 11:11 AM CDT [facility] ABS. IMMATURE GRANULOCYTES 0.04 0.00 - 0.49 x10'3/uL 06/01/2023 11:11 AM CDT [facility] 06/01/2023 11:0 0 AM CDT Cynthia MAY LABORATORY Final Resul t [facility] [address] [place] [address], * (ABNORMAL) URINALYSIS (06/01/2023 10:54 AM CDT) SPECIMEN TYPE URINE CLEAN CATCH 06/01/2023 11:03 AM CDT [facility] COLOR (U) LIGHT YELLOW 06/01/2023 11:16 AM T [facility] TRANSPARENCY CLEAR 06/01/2023 11:16 AM [facility] SPECIFIC GRAVITY (U) 1.020 1.001 - 1.030 06/01/2023 11:16 AM T [facility] U PH 6.5 5.0 - 9.0 06/01/2023 11:16 AM T [facility] LEUKOCYTES (U) NEGATIVE NEGATIVE 06/01/2023 11:16 AM T [facility] NITRITES NEGATIVE NEGATIVE 06/01/2023 11:16 AM [facility] PROTEIN RANDOM (U) NEGATIVE <30 MG/DL 06/01/2023 11:16 AM [facility] GLUCOSE (U) NORMAL NORMAL MG/DL 06/01/2023 11:16 AM T [facility] KETONES MG/DL (U) NEGATIVE NEGATIVE MG/DL 06/01/2023 11:16 AM T [facility] UROBILINOGEN NORMAL NORMAL MG/DL 06/01/2023 11:16 AM [facility] BILIRUBIN (U) NEGATIVE NEGATIVE MG/DL 06/01/2023 11:16 AM [facility] BLOOD (U) TRACE(A) NEGATIVE 06/01/2023 11:16 AM [facility] CULTURE & SENSITIVITY INDICATED? CULTURE IS NOT INDICATED 06/01/2023 11:16 AM T [facility] MUCUS FEW /LPF 06/01/2023 11:16 AM [facility] WBC/HPF <1 <6 /HPF 06/01/2023 11:16 AM T [facility] RBC/HPF 4 <6 /HPF 06/01/2023 11:16 AM CDT [facility] SQUAMOUS EPITHELIALS RARE /HPF 06/01/2023 11:16 AM CDT [facility] URINE SPECIMEN OBTAINED BY CLEAN CATCH PROCEDURE / Unknown 06/01/2023 10:54 AM CDT us Cynthia MAY URINE ORDERABLES Final Resu lt [facility] [address] [place] [address], [place] [phone] documented in this encounter Visit Diagnoses Diagnosis Diverticulitis- Primary Diverticulitis of colon (without mention of hemorrhage) documented in this encounter Additional Health Concerns Assessment Noted Time PHQ-9 Depression Total Score: 2 07/17/20 20 9:06 AM CDT documented as of this encounter Care Teams Manager Heavy Equipment Relationship Specialty Start Date End Date None, Provider, PCP - General 05/06/21 10/27/24 documented as of this encounter
--- OUTSIDE RECORDS SUMMARY | 2024-11-04 23:56 | XMS_ITS | Encounter Summary ---
Author Organization [facility] Address [address] [place] [address]. [place] [address] [place] [address] Care Team Providers Care Research Home Economist Name Role Phone None, Provider MD Primary Care Provider Unavaila ble Reason for Visit * Reason Comments Rash Encounter Details Date Type Department Care Team (Late st Contact Info) Description 09/26/2021 3:09 PM CHUTE MAN - 09/26/2021 3:50 PM [facility] Hospital Encounter [id number] [place] [address] Tashi Mesa MD [address] [place] [address] [place] [address] Rash Discharge Disposition: Home or [...] COVID-19? No / Unsure 09/26/2021 2:44 PM CHUTE MAN documented as of this encounter Last Filed Vital Signs Vital Sign Reading Time Taken Comments Blood Pressure 137/78 09/26/2021 3:12 PM CHUTE MAN Pulse 72 09/26/2021 3:12 PM [facility] MAN Temperature 37 ??C (98.6 ??F) 09/26/2021 3:23 PM [facility] MAN Respiratory Rate 18 09/26/2021 3:12 PM [facility] MAN Oxygen Saturation 98% 09/26/2021 3:12 PM [facility] MAN Inhaled Oxygen Concentration - - Weight 84.4 kg (186 lb) 09/26/2021 3:12 PM [facility] MAN Height 154.9 cm (5' 1 ) 09/26/2021 3:12 PM CH[facility] MAN Body Mass Index 35.14 09/26/2021 3:12 PM CHUTE MAN documented in this encounter Functional Status * [...] Care Everywhere. * Contact Dermatitis Discharge Instructions (Botswanan) documented in this encounter Medications at Time [...] Mesa MD - 09/26/2021 3:20 PM CST [facility] Urgent [facility]- [place], [place] HISTORICAL INFORMATION Primary Care Doctor: Provider [...] forcep performed by Kathy Bailey MD at [facility] ??? HYSTERECTOMY CURRENT MEDICATIONS No current [...] 28 g, Refills: 0 Class: [facility]prescribe [id number] [address] AT [facility] [id number] (Ph #: [phone]) MD Tashi Watkins MD 09/26/21 1532 E MAN * Isaac Hadley RN - 09/26/2021 3:16 PM CST Patient to with c/o red raised rash to right neck behind ear, noticed two days ago. Concerned for shingles, rash is not pustule or blistered. Denies pain to rash, reports itching and tingling. E MAN documented in this encounter Plan of Treatment Not on file documented as of this encounter Visit Diagnoses Diagnosis Contact dermatitis, unspecified contact dermatitis type, unspecified trigger- Primary documented in this encounter Additional Health Concerns Assessment Noted Time PHQ-9 Depression Total Score: 2 07/17/20 20 9:06 AM CDT documented as of this encounter Care Teams Research Home Economist Relationship Specialty Start Date End Date None, Provider, PCP - General 05/06/21 10/27/24 documented as of this encounter
--- OUTSIDE RECORDS SUMMARY | 2024-11-04 23:57 | XMS_ITS | Encounter Summary ---
Author Organization [facility] Address [address] [place] [address]. [place] [address] [place] [address] Care Team Providers Care Product Marketing Coordinator Name Role Phone Unavailable Primary Care [...] Description 05/07/2019 8:40 AM CDT Office Visit [facility] Medical Group Family and Sports Medicine - [place] [address] [place] [phone] 58 Rose Marie Ramirez NP [address] [place] [address] Blood Pressure (92/60, last week her bp [...] were not included. Primary and Specialty Care [address], [address] [place] [address] OFFICE VISIT NOTE Encounter Date: 05/07/2019 Chief [...] file Gets together: Not on file Attends anglican service: Not on file Active member of [...] COMPREHENSIVE METABOLIC PANEL (05/07/2019 9:00 AM CDT) [facility] Signature GLUCOSE 89 70 - 99 MG/DL 05/07/2019 8:07 PM CDT [facility] BUN 16 7 - 18 MG/DL 05/07/2019 8:07 PM CDT [facility] CREATININE S/P/B 0.91 0.55 - 1.02 MG/DL 05/07/2019 8:07 PM CDT [facility] SODIUM S/P/B 141 136 - 145 MMOL/L 05/07/2019 8:07 PM CDT [facility] POTASSIUM S/P/B 4.3 3.5 - 5.1 MMOL/L 05/07/2019 8:07 PM CDT [facility] CHLORIDE S/P/B 110(H) 100 - 108 MMOL/L 05/07/2019 8:07 PM CDT [facility] CO2 25.8 21 - 32 MMOL/L 05/07/2019 8:07 PM CDT [facility] CALCIUM S/P/B 8.5 8.5 - 10.1 MG/DL 05/07/2019 8:07 PM CDT [facility] BILIRUBIN TOTAL S/P/B 0.3 0.2 - 1.2 MG/DL 05/07/2019 8:07 PM CDT [facility] TOTAL PROTEIN S/P/B 5.4(L) 6.4 - 8.2 G/DL 05/07/2019 8:07 PM CDT [facility] ALBUMIN S/P/B 2.9(L) 3.4 - 5.0 G/DL 05/07/2019 8:07 PM CDT [facility] AST 18 15 - 37 U/L 05/07/2019 8:07 PM CDT [facility] ALT 21 14 - 55 U/L 05/07/2019 8:07 PM T [facility] ALKALINE PHOSPHATASE S/P/B 66 50 - 136 U/L 05/07/2019 8:07 PM T [facility] ANION GAP 5.2 5 - 15 MMOL/L 05/07/2019 8:07 PM T [facility] BUN CREATININE RATIO 17.5 6 - 26 05/07/2019 8:07 PM T [facility] A/G RATIO 1.2 1.0 - 2.0 RATIO 05/07/2019 8:07 PM [facility] EGFR NON-AFR. AMER. 78(L) >90 ML/MIN/1.7 3 M2 05/07/2019 8:07 PM T [facility] EGFR AFR. AMER. >90 >90 ML/MIN/1.7 3 M2 05/07/2019 8:07 PM T [facility] Comment: NOTE: eGFR is not calculated for patients <18 years of age. This is an estimated GFR (CKD EPI) and should not be used for calculating drug doses. 05/07/2019 9:00 AM CDT Rose Marie Ramirez NP LABORATORY Final Result [facility] [address] [place] [address], documented in this encounter Visit Diagnoses Diagnosis Bronchitis- Primary Bronchitis, not specified as acute or chronic Essential hypertension Unspecified essential hypertension documented in this encounter
--- OUTSIDE RECORDS SUMMARY | 2024-11-04 23:57 | XMS_ITS | Encounter Summary ---
Author Organization [facility] Address [address] [place] [address]. [place] [address] [place] [address] Care Team Providers Care Ui Designer Name Role Phone Unavailable Primary Care Provider Unavailabl e Reason for Visit * Auth/Cert Specialty Diagnoses / Procedures Referred By Veronica t Referred To Contact Diagnoses DIVERTICULITIS Procedures COLONOSCOPY DIAGNOSTIC WITH/WITHOUT SPECIMEN BRUSH/WASH Referral ID Status Reason Start Date Expiration Date Visits Re quested Visits Authorized [id number] 1 1 Encounter Details Date Type Department Care Team (Late st Contact Info) Description 08/09/2019 6:59 AM CDT Anesthesia Event [facility] [place] [address] Stephanie Arreaga DO [address] [facility] [address] [place] [address] Anesthesia Record Procedure Summary Procedure Name Responsible Anesthesiologist Anesthesia Start Time Anesthesia Stop Time COLONOSCOPY WITH polypectomy of sigmoid and rectum via hot forcep Stephanie Arreaga DO 08/09/19 0659 08/09/19 0728 Events Date Time Event Comment 08/09/2019 0642 0642 AN Anesthesia Prepped 0643 AN BUSINESS CENTER MANAGER Prepped 0659 An Start Patient ID and [...]
--- OUTSIDE RECORDS SUMMARY | 2024-11-04 23:57 | XMS_ITS | Encounter Summary ---
Author Organization [facility] Address [address] [place] [address]. [place], [place] [address] [place] [address] Care Team Providers Care Java Web Application Developer Name Role Phone Unavailable Primary Care [...]
--- OUTSIDE RECORDS SUMMARY | 2024-11-04 23:57 | XMS_ITS | Encounter Summary ---
Author Organization [facility] Address [address] [place] [address]. [place] [address] [place] [address] Care Team Providers Care Dairy Husbandry Teacher Name Role Phone Unavailable Primary Care Provider Unavailabl e Reason for Visit * Reason Onset Date Comments Lab Results 05/08/2019 Encounter Details Date Type Department Care Team (Late st Contact Info) Description 05/08/[address] [facility] Family and Sports Medicine - [place] [address] [place] [address] Rose Marie Norton, JUAN JOSE [address] [place] [address] Lab Results Social History Tobacco Use Types [...]
--- OUTSIDE RECORDS SUMMARY | 2024-11-04 23:57 | XMS_ITS | Encounter Summary ---
Author Organization [facility] Address [facility] [place] [address] [place] [address] Care Team Providers Care Chair Name Role Phone Unavailable Primary Care Provider Unavailabl e Reason for Referral * Consultation (Routine) - Closed Specialty Diagnoses / Procedures Referred By Veronica bonner Referred To Contact OTOLARYNGOLOGY Diagnoses Pharyngitis, unspecified etiology Rose Marie Norton STRIPPING SHOVEL OPERATOR [address] [place] [address] Phone: tel: fax: Jose Antonio Jamil MD [address] [facility] [address] [place] [address] Phone: tel: fax: Referral ID Status Reason Start Date Expiration Date Visits Re quested Visits Authorized [id number] Closed 03/27/2020 04/26/2021 100 100 Reason for Visit * Reason Onset Date Comments Other 03/25/2020 still sore throa t Encounter Details Date Type Department Care Team (Late st Contact Info) Description 03/25/2020 Telephone [facility] Medical Group Family and Sports Medicine - [place] [address] [place] [address] Rose Marie Norton STRIPPING SHOVEL OPERATOR [address] [place] [address] Other (still sore throat) Social History Tobacco [...] like ENT referral to Dr Oswald fax: [phone] ph. [phone] * Rose Marie Norton NP - 03/27/2020 [...] an option. Please call her back at [phone] documented in this encounter Plan of Treatment Scheduled Referrals Name Type Priority Associated Diagnoses Orde r Schedule Ambulatory referral to ENT Referral Routine Pharyngitis, unspecified etiology Ordered: 03/27/2020 documented as of this encounter Visit Diagnoses Diagnosis Pharyngitis, unspecified etiology- Primary documented in this encounter
--- OUTSIDE RECORDS SUMMARY | 2024-11-04 23:57 | XMS_ITS | Encounter Summary ---
Author Organization [facility] Address [facility]. [place], [place] [address] [place] [address] Care Team Providers Care Drum Maker Name [...]
--- OUTSIDE RECORDS SUMMARY | 2024-11-04 23:57 | XMS_ITS | Encounter Summary ---
Author Organization [facility] Address [address] [place] [address]. [place], [place] [address] [place] [address] Care Team Providers Care Licensing Registration Examiner Name Role Phone Unavailable Primary Care Provider Unavailabl e Reason for Visit * Reason Comments Earache Encounter Details Date Type Department Care Team (Late st Contact Info) Description 10/22/2020 11:06 PM HUMAN RESOURCES RECRUITER - 10/22/2020 11:48 PM HUMAN RESOURCES RECRUITER Emergency [facility] [place] [address] Maryjane Pedro NP [address] [address] Earache Discharge Disposition: Home or Self Care [...] COVID-19? No / Unsure 10/22/2020 9:00 PM HUMAN RESOURCES RECRUITER documented as of this encounter Last Filed Vital Signs Vital Sign Reading Time Taken Comments Blood Pressure 127/101 10/22/2020 9:17 PM HUMAN RESOURCES RECRUITER Pulse 91 10/22/2020 9:17 PM HUMAN RESOURCES RECRUITER Temperature 35.9 ??C (96.6 ??F) 10/22/2020 9:17 PM CS T Respiratory Rate 18 10/22/2020 9:17 PM HUMAN RESOURCES RECRUITER Oxygen Saturation 98% 10/22/2020 9:17 PM HUMAN RESOURCES RECRUITER Inhaled Oxygen Concentration - - Weight 110.7 kg (244 lb) 10/22/2020 9:17 PM HUMAN RESOURCES RECRUITER Height 154.9 cm (5' 1 ) 10/22/2020 9:17 PM HUMAN RESOURCES RECRUITER Body Mass Index 46.1 10/22/2020 9:17 PM HUMAN RESOURCES RECRUITER documented in this encounter Functional Status * [...] this encounter Discharge Instructions * Discharge Instructions* Mayrjane Pedro NP - 10/22/2020 11:39 PM HUMAN RESOURCES RECRUITER Warm moist compresses or ice pack for comfort. Start Medrol Dosepak in the morning. And continue ibuprofen as needed. IF you develop a rash, please return because this may be more associated with shingles as we discussed. N RESOURCES RECRUITER * Attachments The following attachments cannot be sent through Care Everywhere. * Eustachian Tube Problems Discharge Instructions ([place]) documented in this encounter Medications at Time [...] (BMI) of 40.0 to 44.9 in adult ([facility]) Take 1 tablet by mouth every morning before breakfast. 30 capsule 01/04/2020 0 documented as of this encounter ED Notes * Emma Noble RN - 10/22/2020 11:47 PM CST Pt states understanding of discharge instructions, denies other needs. N RESOURCES RECRUITER * Maryjane Pedro NP - 10/22/2020 11:35 [...] forcep performed by Kathy Bailey MD at [facility] ??? HYSTERECTOMY FAMILY HISTORY: Family History [...] 1 tablet (1 tablet Oral Given 10/22/20 6215) Clinical Impression Eustachian tube dysfunction, right (Primary) Discharge Medication List as of 10/22/2020 11:39 PM START taking these medications Details ibuprofen 600 MG tablet Take 1 tablet (600 mg total) by mouth every 6 (six) hours as needed., Starting Tue10/22/2020, Until 11/01/2020, Eprescribe Class: Eprescribe Pharmacy: [facility] #[id number] [place], [place] - [address] [address] & [facility] (Ph #: [phone]) methylPREDNISolone, AMERICA, 4 MG tablet MEDROL dose pack as directed, Eprescribe Class: Eprescribe Pharmacy: [facility] #[id number] [facility] [address] [facility] (Ph #: [phone]) Medications HYDROcodone-acetaminophen (NORCO) 5-325 MG tablet 1 tablet (1 tablet Oral Given 10/22/20 2344) Discharge Medication List as of 10/22/2020 11:39 PM START taking these medications Details ibuprofen 600 MG tablet Take 1 tablet (600 mg total) by mouth every 6 (six) hours as needed., Starting Tue10/22/2020, Until 11/01/2020, Eprescribe Class: Eprescribe Pharmacy: [id number] [address] [facility] (Ph #: [phone]) methylPREDNISolone, AMERICA, 4 MG tablet MEDROL dose pack as directed, Eprescribe Class: Eprescribe Pharmacy: [facility] #[id number] [place], [place] [address] [address] [address] & [facility] (Ph #: [phone]) I have discussed today's findings with the patient and provided information regarding the likely diagnosis. The patient has been given information regarding plan. I have expressed the the importance of seeking attention should there be any new, or worsening symptoms or persistence of their condition. The patient is stable at time of disposition. Disposition: Discharge Follow-Up: Rose Marie Norton NP [address] [place] [address] As needed MARYJANE PEDRO NP 10/23/2020 Note: This H+P was created with the aid of dictation software, thus there may be some word substitutions or errors. Maryjane Pedro NP 10/23/20 0144 Cosigned by Jaime Lanier MD at 10/23/2020 2:05 AM HUMAN RESOURCES RECRUITER N RESOURCES RECRUITER N RESOURCES RECRUITER * Emma Noble RN - 10/22/2020 9:14 PM CST Pt states - I believe I have an ear infection, I have pain the right side going on since yesterday. N RESOURCES RECRUITER documented in this encounter Plan of Treatment [...] in 24 hours. Given 10/22/2020 11:44 PM HUMAN RESOURCES RECRUITER 1 tablet documented in this encounter Active and Recently Administered Medications Times are shown in HUMAN RESOURCES RECRUITER. Scheduled Medication Order 10/20/2020 10/21/2020 10/22/2020 HYDROcodone-acetaminophen [...]
--- OUTSIDE RECORDS SUMMARY | 2024-11-04 23:57 | XMS_ITS | Encounter Summary ---
Author Organization [facility] Address [address] [place] [address]. [place] [address] [place] [address] Care Team Providers Care Shoe Salesman Name Role Phone Unavailable Primary Care Provider Unavailabl e Reason for Visit * Reason Comments Annual Tender left breast. Encounter Details Date Type Department Care Team (Late st Contact Info) Description 07/17/2020 8:40 AM CDT Office Visit [facility] Family and Sports Medicine - [place] [address] [place] [address] Rose Marie Norton, JUAN JOSE [address] [place] [address] Annual (Tender left breast.) Social History Tobacco [...] forcep performed by Kathy Bailey MD at [facility] ??? 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 facility Gastroesophageal reflux disease without esophagitis Esophageal reflux Class 3 severe obesity due to excess calories without serious comorbidity with body mass index (BMI) of 40.0 to 44.9 in adult ([facility]) History of 2019 novel coronavirus disease (COVID-19) Screening mammogram, encounter for Need for hepatitis C screening test Special screening examination for other specified viral diseases documented in this encounter Additional Health Concerns Assessment Noted Time PHQ-9 Depression Total Score: 2 07/17/20 20 9:06 AM CDT documented as of this encounter
--- OUTSIDE RECORDS SUMMARY | 2024-11-04 23:57 | XMS_ITS | Encounter Summary ---
Author Organization [facility] Address [address] [place] [address]. [place], [place] [address] [place] [address] Care Team Providers Care Grain I Farmworker Name Role Phone Unavailable Primary Care Provider [...]
--- OUTSIDE RECORDS SUMMARY | 2024-11-04 23:57 | XMS_ITS | Encounter Summary ---
Author Organization [facility] Address [address] [place] [address]. [place] [address] [place] [address] Care Team Providers Care Shearing Machine Tender Name Role Phone Unavailable Primary Care Provider Unavailabl e Reason for Visit * Reason Comments Follow Up hospital admit, disc harged 06/14/19, still has pain in abdomin Lab Draw repeat CBC Encounter Details Date Type Department Care Team (Late st Contact Info) Description 06/19/2019 1:40 PM CDT Office Visit [facility] Family and Sports Medicine - [place] [address] [place] [address] Rose Marie Ramirez, SUPERVISOR WET POUR [address] [place], [place] [phone]- Follow Up (hospital admit, discharged 06/14/19, still [...] were not included. Primary and Specialty Care [address], [address] [place] [address] OFFICE VISIT NOTE Encounter Date: 06/25/2019 Chief [...] flagyl IV and changed to oral at [place]. She does have a f/u with GI [...] file Gets together: Not on file Attends taoism service: Not on file Active member of [...]
--- OUTSIDE RECORDS SUMMARY | 2024-11-04 23:57 | XMS_ITS | Encounter Summary ---
Author Organization [facility] Address [address] [place] [address]. [place] [address] [place] [address] Care Team Providers Care Card Fixer Name Role Phone Unavailable Primary Care Provider Unavailabl e Reason for Visit * Reason Comments Weight Problem increased appetite, weight gain, would like phentermine Encounter Details Date Type Department Care Team (Late st Contact Info) Description 01/04/2020 1:00 PM TOUR COORDINATOR Office Visit [facility] Medical [facility] Family and Sports Medicine - [place] [address] [place] [address] Rose Marie Ramirez NP [address] [place], [place] [id number] Weight Problem (increased appetite, weight gain, would [...] Comments Blood Pressure 126/84 01/04/2020 12:55 PM TOUR COORDINATOR Pulse 66 01/04/2020 12:55 PM TOUR COORDINATOR Temperature - - Respiratory Rate - - Oxygen Saturation 96% 01/04/2020 12:55 PM TOUR COORDINATOR Inhaled Oxygen Concentration - - Weight 114.8 kg (253 lb 2 oz) 01/04/2020 12:55 P M TOUR COORDINATOR Height 162.6 cm (5' 4 ) 01/04/2020 12:55 PM TOUR COORDINATOR Body Mass Index 43.45 01/04/2020 12:55 PM TOUR COORDINATOR documented in this encounter Functional Status * [...] were not included. Primary and Specialty Care [address], [address] [place] [address] OFFICE VISIT NOTE Encounter Date: 01/04/2020 Chief [...] rectum via hot forcep performed by Kathy aBiley MD at [facility] ??? HYSTERECTOMY Family History [...] file Gets together: Not on file Attends baptism service: Not on file Active member of [...] (BMI) of 40.0 to 44.9 in adult ([facility]) - Phentermine HCl 37.5 MG Cap; Take 1 tablet by mouth every morning before breakfast. Dispense: 30 capsule; Refill: 0 ROSE MARIE RAMIREZ NP COORDINATOR documented in this encounter Plan of Treatment Not on file documented as of this encounter Visit Diagnoses Diagnosis Class 3 severe obesity due to excess calories without serious comorbidity with body mass index (BMI) of 40.0 to 44.9 in adult ([facility])- Primary documented in this encounter
--- OUTSIDE RECORDS SUMMARY | 2024-11-04 23:57 | XMS_ITS | Encounter Summary ---
Author Organization [facility] Address [address] [place] [address]. [place] [address] [place] [address] Care Team Providers Care Enterprise Resource Planner Name Role Phone Unavailable Primary Care Provider Unavailabl e Reason for Visit * Reason Onset Date Comments Results 06/19/2020 Encounter Details Date Type Department Care Team (Late st Contact Info) Description 06/19/2020 Telephone [facility] Family and Sports Medicine - [place] [address] [place] [address] Rose Marie Norton, JUAN JOSE [address] [place] [address] Results Social History Tobacco Use Types Packs/Day [...] AM CDT Pt complete xray on 06/17/20 [facility]. Requesting results as soon as possible. Pt called [facility] and pt was told we have to request the results, they will not send. documented in this encounter Plan of Treatment Not on file documented as of this encounter Visit Diagnoses Not on filedocumented in this encounter
--- OUTSIDE RECORDS SUMMARY | 2024-11-04 23:57 | XMS_ITS | Encounter Summary ---
Author Organization [facility] Address [address] [place] [address]. [place] [address] [place] [address] Care Team Providers Care Facing Cutting Machine Operator Name Role Phone Unavailable Primary Care Provider Unavailabl e Reason for Visit * Reason Comments URI/ENT Symptoms States she has sore throat. Did strep swab at work x 6 days. Did not send Cx. Encounter Details Date Type Department Care Team (Late st Contact Info) Description 03/17/2020 2:00 PM CDT Telemedicine [facility] Family and Sports Medicine - [place] [address] [place] [address] Rose Marie Ramirez, BRASS BUFFER [address] [place], [place] [phone] 80 URI/ENT Symptoms (States she has sore [...] were not included. Primary and Specialty Care [address], [address] [place] [address] OFFICE VISIT NOTE Encounter Date: 03/20/2020 I introduced and identified myself, received verbal consent from the patient to proceed with this video visit and made the patient aware that the same confidentiality and business information analyst practices apply. The patient joined the video [...] forcep performed by Kathy Bailey MD at [facility] ??? HYSTERECTOMY Family History Problem Relation Name [...] file Gets together: Not on file Attends sabianism service: Not on file Active member of [...]
--- OUTSIDE RECORDS SUMMARY | 2024-11-04 23:57 | XMS_ITS | Encounter Summary ---
Author Organization [facility] Address [address] [place] [address]. [place], [place] [address] [place] [address] Care Team Providers Care Depot Manager Name Role Phone Unavailable Primary Care [...]
--- OUTSIDE RECORDS SUMMARY | 2024-11-04 23:57 | XMS_ITS | Encounter Summary ---
Author Organization [facility] Address [address] [place] [address]. [place] [address] [place] [address] Care Team Providers Care Mobile Product Manager Name Role Phone Unavailable Primary Care Provider Unavailabl e Reason for Visit * Reason Onset Date Comments Question 03/16/2019 Encounter Details Date Type Department Care Team (Late st Contact Info) Description 03/16/2019 Telephone [facility] Medical Group Family and Sports Medicine - [place] [address] [place] [address] Rose Marie Norton NP [address] [place] [address] Question Social History Tobacco Use Types Packs/Day [...] it is about. Call back number is [phone] documented in this encounter Plan of Treatment Not on file documented as of this encounter Visit Diagnoses Not on filedocumented in this encounter
--- OUTSIDE RECORDS SUMMARY | 2024-11-04 23:57 | XMS_ITS | Encounter Summary ---
Author Organization [facility] Address [facility]. [place], [place] [address] [place] [address] Care Team Providers Care Knot Borer Name Role Phone Unavailable Primary Care Provider [...]
--- OUTSIDE RECORDS SUMMARY | 2024-11-04 23:57 | XMS_ITS | Encounter Summary ---
Author Organization [facility] Address [address] [place] [address]. [place] [address] [place] [address] Care Team Providers Care Exercise Rider Name Role Phone Unavailable Primary Care Provider Unavailabl e Reason for Visit * Reason Comments Follow Up still having ear jade n, right side, starting to go to the left Encounter Details Date Type Department Care Team (Late st Contact Info) Description 10/27/2020 8:00 AM DIVIDING MACHINE OPERATOR HELPER Office Visit [facility] Family and Sports Medicine - [place] [address] [place] [address] Rose Marie Ramirez, SOLVENT STATION ATTENDANT [address] [place], [place] [phone] Follow Up (still having ear pain, right [...] COVID-19? No / Unsure 10/27/2020 7:36 AM DIVIDING MACHINE OPERATOR HELPER documented as of this encounter Last Filed Vital Signs Vital Sign Reading Time Taken Comments Blood Pressure 114/82 10/27/2020 7:54 AM DIVIDING MACHINE OPERATOR HELPER Pulse 66 10/27/2020 7:54 AM DIVIDING MACHINE OPERATOR HELPER Temperature 36.6 ??C (97.9 ??F) 10/27/2020 7:54 AM CS T Respiratory Rate 16 10/27/2020 7:54 AM DIVIDING MACHINE OPERATOR HELPER Oxygen Saturation 97% 10/27/2020 7:54 AM DIVIDING MACHINE OPERATOR HELPER Inhaled Oxygen Concentration - - Weight 118.6 kg (261 lb 6.4 oz) 10/27/2020 7:54 AM DIVIDING MACHINE OPERATOR HELPER Height 154.9 cm (5' 1 ) 10/27/2020 7:54 AM DIVIDING MACHINE OPERATOR HELPER Body Mass Index 49.39 10/27/2020 7:54 AM DIVIDING MACHINE OPERATOR HELPER documented in this encounter Functional Status * [...] were not included. Primary and Specialty Care [address] [place] [address] OFFICE VISIT NOTE Encounter Date: 10/27/2020 Chief [...] [facility] ??? HYSTERECTOMY Family History Problem Relation Name [...] file Gets together: Not on file Attends jainism service: Not on file Active member of [...] Iglesia Little MD at 10/28/2020 10:17 AM DIVIDING MACHINE OPERATOR HELPER DING MACHINE OPERATOR HELPER DING MACHINE OPERATOR HELPER documented in this encounter Plan of Treatment Not on file documented as of this encounter Visit Diagnoses Diagnosis Lymphadenopathy- Primary Enlargement of lymph nodes documented in this encounter Additional Health Concerns Assessment Noted Time PHQ-9 Depression Total Score: 2 07/17/20 20 9:06 AM CDT documented as of this encounter
--- OUTSIDE RECORDS SUMMARY | 2024-11-04 23:57 | XMS_ITS | Encounter Summary ---
Author Organization [facility] Address [facility]6 [facility]. [place], [place] [address] [place] [address] Care Team Providers Care Supervisor Wet Room Name Role Phone Unavailable Primary Care [...]
--- OUTSIDE RECORDS SUMMARY | 2024-11-04 23:57 | XMS_ITS | Encounter Summary ---
Author Organization [facility] Address [address] [place] [address]. [place] [address] [place] [address] Care Team Providers Care Barrel Liner Name Role Phone Unavailable Primary Care Provider Unavailabl e Reason for Visit * Reason Onset Date Comments Error 04/16/2019 Encounter Details Date Type Department Care Team (Late st Contact Info) Description 04/16/2019 Telephone [facility] Medical Group Family and Sports Medicine - [place] [address] [place] [address] Rose Marie Norton, JUAN JOSE [address] [place] [address] Error Social History Tobacco Use Types Packs/Day [...]
--- OUTSIDE RECORDS SUMMARY | 2024-11-04 23:57 | XMS_ITS | Encounter Summary ---
Author Organization [facility] Address [facility]6 [facility] [place] [address] [place] [address] Care Team Providers Care Historical Society Director Name Role Phone Unavailable Primary Care Provider Unavailabl e Encounter Details Date Type Department Care Team (Late st Contact Info) Description 06/06/2019 Hospital Follow-up Call [facility] Med/Surg [address] [place] [address] Precious Freedman RN Social History [...]
--- OUTSIDE RECORDS SUMMARY | 2024-11-04 23:57 | XMS_ITS | Encounter Summary ---
Author Organization [facility] Address [facility]6 [facility]. [place], [place] [address] [place] [address] Care Team Providers Care Biomathematician Name Role Phone Unavailable Primary Care Provider [...]
--- OUTSIDE RECORDS SUMMARY | 2024-11-04 23:57 | XMS_ITS | Encounter Summary ---
Author Organization [facility] Address [address] [place] [address]. [place] [address] [place] [address] Care Team Providers Care Senior Report Developer Name Role Phone Unavailable Primary Care Provider Unavailabl e Reason for Visit * Reason Onset Date Comments Medication Request 06/09/2020 Encounter Details Date Type Department Care Team (Late st Contact Info) Description 06/09/2020 Telephone [facility] Medical Group Family and Sports Medicine - [place] [address] [place] [address] Roes Marie Norton, JUAN JOSE [address] [place] [address] Medication Request Social History Tobacco Use Types [...]
--- OUTSIDE RECORDS SUMMARY | 2024-11-04 23:57 | XMS_ITS | Encounter Summary ---
Author Organization [facility] Address [address] [place] [address]. [place] [address] [place] [address] Care Team Providers Care Human Resources Clerk Name Role Phone Unavailable Primary Care Provider Unavailabl e Reason for Visit * Reason Onset Date Comments Lab Results 06/30/2020 Encounter Details Date Type Department Care Team (Late st Contact Info) Description 06/30/2020 Telephone [facility] Family and Sports Medicine - [place] [address] [place] [address] Rose Marie Norton, JUAN JOSE [address] [place] [address] Lab Results Social History Tobacco Use Types [...]
--- OUTSIDE RECORDS SUMMARY | 2024-11-04 23:57 | XMS_ITS | Encounter Summary ---
Author Organization [facility] Address [address] [place] [address]. [place] [address] [place] [address] Care Team Providers Care Pattern Duplicator Name Role Phone Unavailable Primary Care Provider Unavailabl e Reason for Visit * Reason Onset Date Comments Breast Problem 07/17/2020 Encounter Details Date Type Department Care Team (Late st Contact Info) Description 07/17/2020 Telephone [facility] Family and Sports Medicine - [place] [address] [place] [address] Rose Marie Norton, JUAN JOSE [address] [place] [address] Breast Problem Social History Tobacco Use Types [...] PM CDT New order sent to [facility] * Jamaica Goodrich - 07/17/2020 10:02 AM [...]
--- OUTSIDE RECORDS SUMMARY | 2024-11-04 23:57 | XMS_ITS | Encounter Summary ---
Author Organization [facility] Address [address] [place] [address]. [place] [address] [place] [address] Care Team Providers Care Textile Colorist Dyer Name Role Phone Unavailable Primary Care Provider Unavailabl e Reason for Visit * Reason Onset Date Comments Sore Throat 03/14/2020 Reports sore thr oat for a week. Has been gargling. No chest congestion, A little sinus drainage, No head congestion. Appointment Request 03/14/2020 Encounter Details Date Type Department Care Team (Late st Contact Info) Description 03/14/2020 Telephone [facility] Medical Group Family and Sports Medicine - [place] [address] [place] [address] Rose Marie Norton NP [address] [place], [place] [phone] Sore Throat (Reports sore throat for a [...]
--- OUTSIDE RECORDS SUMMARY | 2024-11-04 23:57 | XMS_ITS | Encounter Summary ---
Author Organization [facility] Address [address] [place] [address]. [place], [place] [address] [place] [address] Care Team Providers Care Data Processing Consultant Name Role Phone Unavailable Primary Care Provider Unavailabl e Reason for Referral * Imaging (Emergency) - Closed Specialty Diagnoses / Procedures Referred By Veronica t Referred To Contact RADIOLOGY Procedures CT ABD+PEL W CON Jaylan Flower MD [address] [place] [address] Phone: tel: fax: Referral ID Status Reason Start Date Expiration Date Visits Re quested Visits Authorized [id number] Closed 04/28/2021 05/28/2022 1 1 Reason for Visit * Reason Comments Abdominal Pain Encounter Details Date Type Department Care Team (Late st Contact Info) Description 04/28/2021 1:16 AM CDT - 04/28/2021 6:04 AM CDT Emergency [facility] [place] [address] Jaylan Flower MD [address], [place] [id number] Abdominal Pain Discharge Disposition: Home or Self [...] care by your primary care physician or transformation consultant. Your medication list was reviewed prior [...] such as many narcotic drug combinations and gpco-nsg-icmqlzl cold medicines. Dr. Flower's Specific Instructions: After [...] through Care Everywhere. * Clear Liquid Diet (Urdu) * Diverticulitis Discharge Instructions (Urdu) documented in this encounter Medications at Time of Discharge cefUROXime 500 MG tabletIndications:Ac tunica-biloxi diverticulitis Take 1 tablet (500 mg total) by mouth 2 (two) times daily for 10 days. 20 tablet 04/28/2021 1 HYDROcodone-acetamin ophen 5-325 MG tabletIndications:Ac tunica-biloxi Pain < 3 Day Supply Take 1 tablet by mouth every 6 (six) hours as needed for Pain. Indications: Acute Pain < 3 Day Supply 7 tablet 04/28/2021 1 omeprazole 40 MG capsule TAKE 1 CAPSULE BY MOUTH DAILY BEFORE BREAKFAST FOR GERD 04/02/2021 3 ondansetron 4 MG disintegrating tabletIndications:Ac tunica-biloxi diverticulitis Take 1 tablet (4 mg total) [...] forcep performed by Kathy Bailey MD at [facility] ??? HYSTERECTOMY FAMILY HISTORY: Family [...] CATCH COLOR (U) YELLOW TRANSPARENCY CLEAR Specific [place] (U) 1.036 (H) 1.001 - 1.030 U [...] ABD+PEL W CON Final Result by User, [email or web address] (04/28 513) EXAMINATION: CT Abdomen and Pelvis [...] reviewed the patient's records contained [place] the [place] There are no signs of prescription drug misuse or diversion that rise to a level to alter the risk versus benefit analysis with regard to the prescription(s) I am providing the patient today. Clinical Impression Acute diverticulitis (Primary) Disposition: Discharge I dictated portions of this note using SwimTopia speech recognition software. Occasional wrong word or sound-alike substitutions may have occurred due to the inherent limitations of voice recognition software. Please read the chart carefully and recognize, using context, where the substitutions may have occurred. If there are any questions, please contact me via Cell Therapy or other HIPAA compliant communication medium for clarification. 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 [...] URINE CLEAN CATCH 04/28/2021 3:45 AM CDT [facility] COLOR (U) YELLOW 04/28/2021 4:22 AM CDT [facility] TRANSPARENCY CLEAR 04/28/2021 4:22 AM CDT [facility] SPECIFIC GRAVITY (U) 1.036(H) 1.001 - 1.030 04/28/2021 4:22 AM CDT [facility] U PH 5.5 5.0 - 9.0 04/28/2021 4:22 AM CDT [facility] LEUKOCYTES (U) NEGATIVE NEGATIVE 04/28/2021 4:22 AM CDT [facility] NITRITES NEGATIVE NEGATIVE 04/28/2021 4:22 AM T [facility] PROTEIN (U) 30(H) <30 MG/DL 04/28/2021 4:22 AM CDT [facility] URINE GLUCOSE NORMAL NORMAL MG/DL 04/28/2021 4:22 AM T [facility] KETONES MG/DL (U) 150(A) NEGATIVE MG/DL 04/28/2021 4:22 AM CDT [facility] UROBILINOGEN 2.0(A) NORMAL MG/DL 04/28/2021 4:22 AM T [facility] BILIRUBIN (U) NEGATIVE NEGATIVE MG/DL 04/28/2021 4:22 AM CDT [facility] BLOOD (U) NEGATIVE NEGATIVE 04/28/2021 4:22 AM T [facility] CULTURE & SENSITIVITY INDICATED? CULTURE IS NOT INDICATED 04/28/2021 4:22 AM T [facility] MUCUS MANY /LPF 04/28/2021 4:22 AM CDT [facility] RBC/HPF 4 <6 /HPF 04/28/2021 4:22 AM CDT [facility] SQUAMOUS EPITHELIALS FEW /HPF 04/28/2021 4:22 AM T [facility] URINE SPECIMEN OBTAINED BY CLEAN CATCH PROCEDURE / Unknown 04/28/2021 3:44 AM CDT Jaylan Flower MD URINE ORDERABLES Final Result [facility] [address] [place] [address], [place] [phone] * CULTURE, BACTERIA, BLOOD (04/28/2021 3:21 AM CDT) SPEC DESCRIPTION BLOOD 04/28/2021 1:57 AM CDT [facility] SPECIAL REQUESTS NO SPECIAL REQUEST 04/28/2021 1:57 AM CDT [facility] CULTURE RESULT NO GROWTH 5 DAYS 05/03/2021 8:04 AM CDT [facility] BLOOD SPECIMEN OBTAINED FOR BLOOD CULTURE / Unknown 04/28/2021 3:21 AM CDT 04/28/2021 3:35 AM CDT Jaylan Flower MD MICROBIOLOGY - GENERAL ORDERABL ES Final Result [facility] [address] [place] [address], [place] [phone] * CULTURE, BACTERIA, BLOOD (04/28/2021 3:21 AM CDT) SPEC DESCRIPTION BLOOD 04/28/2021 1:57 AM CDT [facility] SPECIAL REQUESTS NO SPECIAL REQUEST 04/28/2021 1:57 AM CDT [facility] CULTURE RESULT NO GROWTH 5 DAYS 05/03/2021 8:04 AM CDT [facility] BLOOD SPECIMEN OBTAINED FOR BLOOD CULTURE / Unknown 04/28/2021 3:21 AM CDT 04/28/2021 3:35 AM CDT us Jaylan Flower MD MICROBIOLOGY - GENERAL ORDERABL ES Final Result [facility] [address] [place] [address], [place] [phone] * MAGNESIUM (04/28/2021 3:21 AM CDT) MAGNESIUM 2.2 1.8 - 2.4 MG/DL 04/28/2021 4:08 AM CDT [facility] 04/28/2021 3:21 AM CDT us Jaylan Flower MD LABORATORY Final Result [facility] [address] [place] [address], [place] [phone] * LACTIC ACID (04/28/2021 3:21 AM CDT) LACTIC ACID VENOUS 0.8 0.4 - 2.0 MMOL/L 04/28/2021 4:09 AM CDT [facility] 04/28/2021 3:21 AM CDT us Jaylan Flower MD LABORATORY Final Result Performing Organization Address City/[facility]/ZIP Co de Phone Number [facility] [address] [place] [address], [place] [phone] * LIPASE (04/28/2021 3:21 AM CDT) LIPASE 274 73 - 393 UNITS/L 04/28/2021 4:08 AM CDT [facility] 04/28/2021 3:21 AM CDT us Jaylan Flower MD LABORATORY Final Result [facility] [address] [place] [address], [place] [phone] * (ABNORMAL) COMPREHENSIVE METABOLIC PANEL (04/28/2021 3:21 AM CDT) [facility] GLUCOSE 69(L) 70 - 99 MG/DL 04/28/2021 4:08 AM CDT [facility] BUN 18 7 - 18 MG/DL 04/28/2021 4:08 AM CDT [facility] CREATININE S/P/B 0.73 0.55 - 1.02 MG/DL 04/28/2021 4:08 AM CDT [facility] SODIUM S/P/B 140 136 - 145 MMOL/L 04/28/2021 4:08 AM CDT [facility] POTASSIUM S/P/B 3.9 3.5 - 5.1 MMOL/L 04/28/2021 4:08 AM CDT [facility] CHLORIDE S/P/B 107 100 - 108 MMOL/L 04/28/2021 4:08 AM CDT [facility] CO2 25.5 21 - 32 MMOL/L 04/28/2021 4:08 AM CDT [facility] CALCIUM S/P/B 8.8 8.5 - 10.1 MG/DL 04/28/2021 4:08 AM CDT [facility] BILIRUBIN TOTAL S/P/B 0.6 0.2 - 1.2 MG/DL 04/28/2021 4:08 AM CDT [facility] Comment: THIS ASSAY IS NOT RECOMMENDED FOR PATIENTS UNDERGOING TREATMENT WITH ELTROMBOPAG DUE TO THE POTENTIAL FOR FALSELY ELEVATED RESULTS. TOTAL PROTEIN S/P/B 7.2 6.4 - 8.2 G/DL 04/28/2021 4:08 AM CDT [facility] ALBUMIN S/P/B 3.7 3.4 - 5.0 G/DL 04/28/2021 4:08 AM CDT [facility] AST 16 15 - 37 U/L 04/28/2021 4:08 AM CDT [facility] ALT 32 14 - 55 U/L 04/28/2021 4:08 AM CDT [facility] ALKALINE PHOSPHATASE S/P/B 65 50 - 136 U/L 04/28/2021 4:08 AM CDT [facility] ANION GAP 7.5 5 - 15 MMOL/L 04/28/2021 4:08 AM CDT [facility] BUN CREATININE RATIO 24.6 6 - 26 04/28/2021 4:08 AM CDT [facility] A/G RATIO 1.1 1.0 - 2.0 RATIO 04/28/2021 4:08 AM CDT [facility] EGFR NON-AFR. AMER. >90 >90 ML/MIN/1.7 3 M2 04/28/2021 4:08 AM CDT [facility] EGFR AFR. AMER. >90 >90 ML/MIN/1.7 3 M2 04/28/2021 4:08 AM T [facility] Comment: NOTE: eGFR is not calculated for patients <18 years of age. This is an estimated GFR (CKD EPI) and should not be used for calculating drug doses. 04/28/2021 3:21 AM CDT Jaylan Flower MD LABORATORY Final Result [facility] [address] [place] [address], [place] [phone] * CBC W/DIFF AUTOMATED (04/28/2021 3:21 AM CDT) WBC 10.1 4.5 - 11.0 x10'3/uL 04/28/2021 3:44 AM CDT [facility] RBC 4.31 4.20 - 5.40 x10'6/uL 04/28/2021 3:44 AM CDT [facility] HGB 13.0 12.0 - 16.0 G/DL 04/28/2021 3:44 AM CDT [facility] HCT 39.3 38.0 - 48.0 % 04/28/2021 3:44 AM CDT [facility] MCV 91.2 81.0 - 99.0 FL 04/28/2021 3:44 AM CDT [facility] MCH 30.2 27.0 - 31.0 PG 04/28/2021 3:44 AM CDT [facility] MCHC 33.1 32.0 - 36.0 G/DL 04/28/2021 3:44 AM CDT [facility] RDW 13.8 11.5 - 14.5 % 04/28/2021 3:44 AM CDT [facility] PLT 224 130 - 400 x10'3/uL 04/28/2021 3:44 AM CDT [facility] MPV 11.0 9.3 - 12.2 FL 04/28/2021 3:44 AM CDT [facility] DIFFERENTIAL TYPE AUTOMATED DIFFERENTIAL 04/28/2021 3:44 AM CDT [facility] NEUTROPHILS % 63.4 % 04/28/2021 3:44 AM CDT [facility] LYMPHOCYTES % 29.8 % 04/28/2021 3:44 AM CDT [facility] MONOCYTES % 5.4 % 04/28/2021 3:44 AM CDT [facility] EOSINOPHILS 0.8 % 04/28/2021 3:44 AM CDT [facility] BASOPHILS 0.4 % 04/28/2021 3:44 AM CDT [facility] IMMATURE GRANS % 0.2 % 04/28/20 3:44 AM CDT [facility] ABS. NEUTROPHILS TOTAL 6.41 1.80 - 7.70 x10'3/uL 04/28/2021 3:44 AM CDT [facility] ABS. LYMPHOCYTES 3.02 1.00 - 4.80 x10'3/uL 04/28/2021 3:44 AM CDT [facility] ABS. MONOCYTES 0.55 0.24 - 0.86 x10'3/uL 04/28/2021 3:44 AM CDT [facility] ABS. EOSINOPHILS 0.08 0.04 - 0.36 x10'3/uL 04/28/2021 3:44 AM CDT [facility] ABS. BASOPHILS 0.04 0.01 - 0.08 x10'3/uL 04/28/2021 3:44 AM CDT [facility] ABS. IMMATURE GRANULOCYTES 0.02 0.00 - 0.49 x10'3/uL 04/28/2021 3:44 AM CDT [facility] 04/28/2021 3:21 AM CDT Jaylan Flower MD LABORATORY Final Result [facility] [address] [place] [address], [place] [phone] documented in this encounter Visit Diagnoses Diagnosis [...]
--- OUTSIDE RECORDS SUMMARY | 2024-11-04 23:57 | XMS_ITS | Encounter Summary ---
Author Organization [facility] Address [address] [place] [address]. [place], [place] [address] [place] [address] Care Team Providers Care Taxonomy Teacher Name Role Phone Unavailable Primary Care [...] COVID-19? No / Unsure 10/27/2020 7:36 AM IMPORT/EXPORT CLERK documented as of this encounter Functional Status [...]
--- OUTSIDE RECORDS SUMMARY | 2024-11-04 23:57 | XMS_ITS | Encounter Summary ---
Author Organization [facility] Address [address] [place] [address]. [place] [address] [place] [address] Care Team Providers Care Counselor Manager Name Role Phone Unavailable Primary Care Provider Unavailabl e Reason for Visit * Reason Onset Date Comments FYI 07/17/2020 Encounter Details Date Type Department Care Team (Late st Contact Info) Description 07/17/2020 Telephone [facility] Family and Sports Medicine - [place] [address] [place] [address] Rose Marie Norton, JUAN JOSE [address] [place] [address] Social History Tobacco Use Types Packs/Day Years [...] pain and ispointed to ANG; patient has Roby. documented in this encounter Plan of Treatment Not on file documented as of this encounter Visit Diagnoses Not on filedocumented in this encounter Additional Health Concerns Assessment Noted Time PHQ-9 Depression Total Score: 2 07/17/20 20 9:06 AM CDT documented as of this encounter
--- OUTSIDE RECORDS SUMMARY | 2024-11-04 23:57 | XMS_ITS | Encounter Summary ---
Author Organization [facility] Address [address] [place] [address]. [place] [address] [place] [address] Care Team Providers Care Laborer Tin Can Name Role Phone Unavailable Primary Care Provider Unavailabl e Reason for Visit * Reason Onset Date Comments Error 02/19/2020 Encounter Details Date Type Department Care Team (Late st Contact Info) Description 02/19/2020 Telephone [facility] Family and Sports Medicine - [place] [address] [place] [address] Rose Marie Norton, JUAN JOSE [address] [place] [address] Error Social History Tobacco Use Types Packs/Day [...]
--- OUTSIDE RECORDS SUMMARY | 2024-11-04 23:57 | XMS_ITS | Encounter Summary ---
Author Organization [facility] Address [address] [place] [address]. [place], [place] [address] [place] [address] Care Team Providers Care Central Office Frame Wirer Name Role Phone Unavailable Primary Care Provider Unavailabl e Reason for Visit * Reason Comments Ultrasound (SCAN) Mammogram (SCAN) Encounter Details Date Type Department Care Team ([facility] Contact Info) Description 08/19/2020 Scan [facility] [...]
--- OUTSIDE RECORDS SUMMARY | 2024-11-04 23:57 | XMS_ITS | Encounter Summary ---
Author Organization [facility] Address [address] [place] [address]. [place], [place] [address] [place] [address] Care Team Providers Care Pet Resort Concierge Name Role Phone Unavailable Primary Care Provider [...]
--- OUTSIDE RECORDS SUMMARY | 2024-11-04 23:57 | XMS_ITS | Encounter Summary ---
Author Organization [facility] Address [address] [place] [address]. [place], [place] [address] [place] [address] Care Team Providers Care Lunch Truck Driver Name Role Phone Unavailable Primary Care Provider Unavailabl e Reason for Visit * Auth/Cert Specialty Diagnoses / Procedures Referred By Contac t Referred To Contact Diagnoses DIVERTICULITIS Procedures COLONOSCOPY DIAGNOSTIC WITH/WITHOUT SPECIMEN BRUSH/WASH Referral ID Status Reason Start Date Expiration Date Visits Re quested Visits Authorized [id number] 1 1 Encounter Details Date Type Department Care Team (Latest Contact Info) Description 08/09/2019 6:06 AM CDT - 08/09/2019 8:21 AM CDT Hospital Encounter [facility] [place] [address] Kathy Bailey MD [address] [place] [address] [phone] Discharge Disposition: Home or Self Care (Routine [...] through Care Everywhere. * Colonoscopy Discharge Instructions (New Zealander) documented in this encounter H&P Notes * [...] during recuperation were discussed with the patient/family/personal abrasives sales representative. Reasonable alternatives to the patient's proposed procedure/surgery including benefits, risks, and side effects related to the alternatives and the risks related to patient/family/personal abrasives sales representative verbalized understanding and desires to proceed. [...] patient and is documented in the clinicchart. #[id number] /NTS * Kathy Bailey MD - 07/31/2019 [...] patient and is documented in the clinicchart. #[id number] /NTS documented in this encounter OR Notes * Op Note - Kathy Bailey MD - 08/09/2019 7:27 AM CDT Tammy Cervantes is an 43-year-old female. Date of Operation: [08/09/2019] Preoperative diagnosis: Diverticulitis Postoperative diagnosis: Diverticulosis, colon polyps Procedure: Colonoscopy to cecum with hot biopsy polypectomy x2 Anesthesia: MAC Assistants: GI Nurse: Marley Marc RN foster care therapist: Andrew Christianson Estimated blood loss: Minimal Specimen: [...] (08/09/2019 12:00 AM CDT) COPATH REPORT ? [facility] ? [address] [facility]. ? [place], [place] ??[address] ? [id number] ? Department of Pathology ? Pathology Report ? SURGICAL FINAL REPORT Patient Name: TAMMY CERVANTES ?? : 1975 (Age: 43) ? Location: [facility] Gender: F ?Collected Date: 08/09/2019 Med Rec #: [id number] ?Date Received: 08/09/2019 Date Reported: 08/10/2019 Provider: [...] as B1. ?? :ath Billing Fee Code(s): 05037(2) [facility] Tissue specimen (specimen) COLON STRUCTURE / Unknown 08/09/2019 7:22 AM CDT Tissue specimen (specimen) COLON STRUCTURE / Unknown 08/09/2019 7:24 AM CDT us Kathy Bailey MD PATHOLOGY/CYTOLOGY ORDERABLES Fi nal Result [facility] [address] [facility] [address], [place] [phone] documented in this encounter Visit Diagnoses Not [...]
--- OUTSIDE RECORDS SUMMARY | 2024-11-04 23:57 | XMS_ITS | Encounter Summary ---
Author Organization [facility] Address [address] [place] [address]. [place], [place] [address] [place] [address] Care Team Providers Care Flight Kitchen Manager Name Role Phone Unavailable Primary Care [...]
--- OUTSIDE RECORDS SUMMARY | 2024-11-04 23:57 | XMS_ITS | Encounter Summary ---
Author Organization [facility] Address [address] [place] [address]. [place] [address] [place] [address] Care Team Providers Care Linux System Engineer Name Role Phone Unavailable Primary Care Provider Unavailabl e Encounter Details Date Type Department Care Team (Latest Contact Info) Description 06/25/2020 5:56 PM CDT - 06/25/2020 11:59 PM CDT Hospital Encounter [facility] [place] [address] Rose Marie Norton NP [address] [place] [address] Discharge Disposition: Home or Self Care (Routine [...] of 40.0 to 44.9 in adult (CMS/HCC [facility]) Take 1 tablet by mouth every [...] URINE CLEAN CATCH 06/25/2020 5:[address] [facility] SPECIAL REQUESTS NO SPECIAL REQUEST 06/25/2020 5:[address] [facility] CULTURE RESULT NO GROWTH 2 DAYS 06/28/2020 9:[address] [facility] URINE SPECIMEN OBTAINED BY CLEAN CATCH PROCEDURE / Unknown 06/25/2020 8:44 AM CDT 06/25/2020 6:07 PM CDT us Rose Marie Norton NP MICROBIOLOGY - GENERAL ORDERABLE S Final Result [facility] [address] [place] [address], [place] [phone] documented in this encounter Visit Diagnoses Diagnosis Dysuria documented in this encounter
--- OUTSIDE RECORDS SUMMARY | 2024-11-04 23:57 | XMS_ITS | Encounter Summary ---
Author Organization [facility] Address [address] [place] [address]. [place], [place] [address] [place] [address] Care Team Providers Care Press Assistant And Feeder Name Role Phone Unavailable Primary Care Provider [...]
--- OUTSIDE RECORDS SUMMARY | 2024-11-04 23:57 | XMS_ITS | Encounter Summary ---
Author Organization [facility] Address [facility]. [place], [place] [address] [place] [address] Care Team Providers Care Checker Stocker Name Role Phone Unavailable Primary Care Provider [...]
--- OUTSIDE RECORDS SUMMARY | 2024-11-04 23:57 | XMS_ITS | Encounter Summary ---
Author Organization [facility] Address [address] [place] [address]. [place], [place] [address] [place] [address] Care Team Providers Care Oven Tender Bagels Name Role Phone Unavailable Primary Care Provider Unavailabl e Reason for Referral * Consultation/Treatment (Routine) - Closed Specialty Diagnoses / Procedures Referred By Veronica bonner Referred To Contact OTOLARYNGOLOGY Diagnoses Ear ache Rose Marie Ramirez NP [address] [place] [address] Phone: tel: fax: Ranulfo Duenas MD [address] [place] [address] Phone: tel: fax: Referral ID Status Reason Start Date Expiration Date Visits Re quested Visits Authorized [id number] Closed 11/04/2020 12/04/2021 100 100 YL WRINGER OPERATOR Reason for Visit * Reason Onset Date Comments Other 11/04/2020 Still has ear pa in. Encounter Details Date Type Department Care Team (Late st Contact Info) Description 11/04/2020 Telephone [facility] Family and Sports Medicine - [place] [address] [place] [address] Rose Marie Ramirez NP [address] [place] [address] Other (Still has ear pain.) Social History [...] COVID-19? No / Unsure 10/27/2020 7:36 AM TETRYL WRINGER OPERATOR documented as of this encounter Functional [...] on: 11/04/2020 02:16 PM Modules accepted: Orders YL WRINGER OPERATOR * Janett Miles CMA - 11/04/2020 1:26 PM CST OK for referral? She has [employer] insurance? YL WRINGER OPERATOR * Janet Black - 11/04/2020 12:08 PM CST When Maria Del Carmen called [facility] [phone], they told her that she needed a referral to be seen. They went a head and scheduled her appointment for 11-20-20. Please let Maria Del Carmen know if there is a problem with sending this referral. YL WRINGER OPERATOR * Janett Miles CMA - 11/04/2020 11:53 AM CST Called and informed pt of [facility] number given YL WRINGER OPERATOR * Rose Marie Ramirez NP - 11/04/2020 11:38 AM CST She can call [facility] in [place] herself and get in pretty quickly YL WRINGER OPERATOR * Janet Black - 11/04/2020 10:40 AM CST Maria Del Carmen had an appointment on 10/27 for ear ache. Patient said she has been taking the prescribed medication and the swelling has gone down, but her ear still hurts (throbbing deep in ear). Per Rose Marie,I told patient that she will be called about going to see an ENT. YL WRINGER OPERATOR documented in this encounter Plan of [...]
--- OUTSIDE RECORDS SUMMARY | 2024-11-04 23:57 | XMS_ITS | Encounter Summary ---
Author Organization [facility] Address [facility] [place] [address] [place] [address] Care Team Providers Care Relays Draftsperson Name Role Phone Unavailable Primary Care Provider Unavailabl e Encounter Details Date Type Department Care Team (Late st Contact Info) Description 06/06/2019 Hospital Follow-up Call [facility] Med/Surg [address] [place] [address] Precious Freedman RN Social History [...]
--- OUTSIDE RECORDS SUMMARY | 2024-11-04 23:57 | XMS_ITS | Encounter Summary ---
Author Organization [facility] Address [address] [place] [address]. [place], [place] [address] [place] [address] Care Team Providers Care Regulatory Coordinator Name Role Phone Unavailable Primary Care [...]
--- OUTSIDE RECORDS SUMMARY | 2024-11-04 23:57 | XMS_ITS | Encounter Summary ---
Author Organization [facility] Address [address] [place] [address]. [place] [address] [place] [address] Care Team Providers Care Photoengraver Apprentice Name Role Phone Unavailable Primary Care Provider Unavailabl e Reason for Visit * Reason Onset Date Comments Medication 06/21/2019 Encounter Details Date Type Department Care Team (Late st Contact Info) Description 06/21/2019 Telephone [facility] Family and Sports Medicine - [place] [address] [place] [phone] 66 Rose Marie Ramirez, JUAN JOSE [address] [place] [address] Medication Social History Tobacco Use Types Packs/Day [...] of antibiotics prescribed by the ER at [facility]. Itching, doughy, burning. Monistat is [...] like this sent to the following pharmacy: [id number] - [place], [place] - [address] [facility] [address] [facility] [id number] The next office visit: Next visit with [...]
--- OUTSIDE RECORDS SUMMARY | 2024-11-04 23:57 | XMS_ITS | Encounter Summary ---
Author Organization [facility] Address [address] [place] [address]. [place], [place] [id number] [place] [address] Care Team Providers Care Homemaker Companion Name Role Phone Unavailable Primary Care Provider Unavailabl e Reason for Visit * Reason Comments Procedure (SCAN) Encounter Details Date Type Department Care Team ([facility] Contact Info) Description 03/09/2021 Scan HEALTH INFO [...]
--- OUTSIDE RECORDS SUMMARY | 2024-11-04 23:57 | XMS_ITS | Encounter Summary ---
Author Organization [facility] Address [address] [place] [address]. [place] [address] [place] [address] Care Team Providers Care Floor Finisher Helper Name Role Phone Unavailable Primary Care Provider Unavailabl e Reason for Visit * Reason Comments Low Back Pain left side, radiates down left leg, Encounter Details Date Type Department Care Team (Late st Contact Info) Description 02/16/2019 1:00 PM CDT Office Visit [facility] Family and Sports Medicine - [place] [address] [place] [address] Rose Marie Ramirez NP [address] [place], [place] [phone] [id number] Low Back Pain (left side, radiates down [...] encounter Progress Notes * Rose Marie Ramirez, GROUP INSURANCE SPECIAL AGENT - 02/16/2019 1:00 PM CDT Images from the original note were not included. [facility] [address], [address] [place] [address] OFFICE VISIT NOTE Encounter Date: 02/16/2019 Chief [...] file Gets together: Not on file Attends gnosticist service: Not on file Active member of [...]
--- OUTSIDE RECORDS SUMMARY | 2024-11-04 23:57 | XMS_ITS | Encounter Summary ---
Author Organization [facility] Address [address] [place] [address]. [place] [address] [place] [address] Care Team Providers Care Top And Seat Cover Fitter Name Role Phone Unavailable Primary Care Provider Unavailabl e Encounter Details Date Type Department Care Team (Latest Contact Info) Description 05/07/2019 7:46 PM CDT - 05/07/2019 11:59 PM CDT Hospital Encounter [facility] [place] [address] Rose Marie Norton, JUAN JOSE [address] [place] [id number] Discharge Disposition: Home or Self Care (Routine [...] - 99 MG/DL 05/07/2019 8:07 PM CDT [facility] BUN 16 7 - 18 MG/DL 05/07/2019 8:07 PM CDT [facility] CREATININE S/P/B 0.91 0.55 - 1.02 MG/DL 05/07/2019 8:07 PM CDT [facility] SODIUM S/P/B 141 136 - 145 MMOL/L 05/07/2019 8:07 PM CDT [facility] POTASSIUM S/P/B 4.3 3.5 - 5.1 MMOL/L 05/07/2019 8:07 PM CDT [facility] CHLORIDE S/P/B 110(H) 100 - 108 MMOL/L 05/07/2019 8:07 PM CDT [facility] CO2 25.8 21 - 32 MMOL/L 05/07/2019 8:07 PM CDT [facility] CALCIUM S/P/B 8.5 8.5 - 10.1 MG/DL 05/07/2019 8:07 PM CDT [facility] BILIRUBIN TOTAL S/P/B 0.3 0.2 - 1.2 MG/DL 05/07/2019 8:07 PM CDT [facility] TOTAL PROTEIN S/P/B 5.4(L) 6.4 - 8.2 G/DL 05/07/2019 8:07 PM CDT [facility] ALBUMIN S/P/B 2.9(L) 3.4 - 5.0 G/DL 05/07/2019 8:07 PM CDT [facility] AST 18 15 - 37 U/L 05/07/2019 8:07 PM CDT [facility] ALT 21 14 - 55 U/L 05/07/2019 8:07 PM T [facility] ALKALINE PHOSPHATASE S/P/B 66 50 - 136 U/L 05/07/2019 8:07 PM T [facility] ANION GAP 5.2 5 - 15 MMOL/L 05/07/2019 8:07 PM T [facility] BUN CREATININE RATIO 17.5 6 - 26 05/07/2019 8:07 PM T [facility] A/G RATIO 1.2 1.0 - 2.0 RATIO 05/07/2019 8:07 PM [facility] EGFR NON-AFR. AMER. 78(L) >90 ML/MIN/1.7 3 M2 05/07/2019 8:07 PM T [facility] EGFR AFR. AMER. >90 >90 ML/MIN/1.7 3 M2 05/07/2019 8:07 PM T [facility] Comment: NOTE: eGFR is not calculated for patients <18 years of age. This is an estimated GFR (CKD EPI) and should not be used for calculating drug doses. 05/07/2019 9:00 AM CDT Rose Marie Norton NP LABORATORY Final Result [facility] [address] [place] [address], documented in this encounter Visit Diagnoses Diagnosis Essential hypertension Unspecified essential hypertension documented in this encounter
--- OUTSIDE RECORDS SUMMARY | 2024-11-04 23:57 | XMS_ITS | Encounter Summary ---
Author Organization [facility] Address [address] [place] [address]. 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 My direct extension is [phone]. You can also reach me at: [phone] ([facility]) OR [phone] ([facility]) documented in this encounter Plan of Treatment Not on file documented as of this encounter Visit Diagnoses Not on filedocumented in this encounter
--- OUTSIDE RECORDS SUMMARY | 2024-11-04 23:57 | XMS_ITS | Encounter Summary ---
Author Organization [facility] Address [facility] [place] [address] [place] [address] Care Team Providers Care Gospel Worker Name Role Phone Unavailable Primary Care Provider Unavailabl e Encounter Details Date Type Department Care Team (Late st Contact Info) Description 06/21/2019 Orders Only [facility] Family and Sports Medicine - [place] [address] [place] [address] Rose Marie Norton, PER DIEM NURSE [address] [place] [address] Social History Tobacco Use Types Packs/Day Years [...] ORDERS Comment: ??CULTURE, URINE, ROUTINE ?MICRO NUMBER: ?[id number] ??TEST STATUS: ? FINAL ??SPECIMEN SOURCE: ?? [...] INCORRECT, PLEASE CONTACT CLIENT SERVICES. PHONE NUMBER: [phone] 06/19/2019 2:10 PM CDT 06/20/2019 7:51 AM CDT Narrative [facility] - 06/21/2019 7:43 AM CDT FASTING: UNKNOWN Resulting Agency Comment Performing Organization Information: ?Site ID: [id number] ?Name: [facility] ?Address: [facility] [place] [address] ?Director: Lowell Cristina D.O., MPH Rose Marie [...] 35.0 - 45.0 % [facility] MCV 90.9 80.0 - 100.0 fL [...] Agency Comment Performing Organization Information: ?Site ID: ID ?Name: [facility] ?Address: [facility] [place] [address] ?Director: Lowell Cristina D.O., MPH Rose Marie Norton NP LABORATORY Final Result [facility] documented in this encounter Visit Diagnoses Not on filedocumented in this encounter
--- OUTSIDE RECORDS SUMMARY | 2024-11-04 23:57 | XMS_ITS | Encounter Summary ---
Author Organization [facility] Address [facility] 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 Name Role Phone Unavailable Primary Care Provider Unavailabl e Reason for Referral * Imaging (Emergency) - Closed Specialty Diagnoses / Procedures Referred By Veronica bonner Referred To Contact RADIOLOGY Procedures CT ABD+PEL W IV CON ONLY Heather Kirkpatrick FNP-BC Referral ID Status Reason Start Date Expiration Date Visits Re quested Visits Authorized [id number] Closed 05/31/2019 07/01/2020 1 1 Reason for Visit * Reason Comments Abdominal Pain Urinary Symptoms * Auth/Cert Specialty Diagnoses / Procedures Referred By Veronica bonner Referred To Contact Diagnoses Diverticulitis of large intestine with abscess without bleeding Leukocytosis, unspecified type Diverticulitis Procedures INPT Referral ID Status Reason Start Date Expiration Date Visits Re quested Visits Authorized [id number] 1 1 Encounter Details Date Type Department Care Team (Late st Contact Info) Description 05/31/2019 10:46 PM CDT - 06/04/2019 10:00 AM T [facility] 3rd [place], [place] [address] Beverly Ferro PA-C [address] [address] Milo Reynaga MD 1 [facility] [place] [address] [phone] (Work) Rhonda Jang APRN 1 [place] [address] [phone] (Work) Ashlee Casillas PA-C 1 [place] [address] [phone] (Work) Abdominal Pain; Urinary Symptoms Discharge [...] this encounter Discharge Summaries * Rhonda Jang, SUTURE WINDER HAND - 06/04/2019 8:44 AM CDT Hospitalist Discharge [...] : CT ABD+PEL W IV CON ONLY [[id number]] Collected: 06/01/1947 Updated: 06/01/19103 Narrative: ?? EXAMINATION: CT Abdomen and Pelvis with contrast ? EXAM DATE/TIME: 06/01/2019 12:31 AM ?? REASON FOR EXAM: ??Abdominal pain, unspecified ?[id number] to the ed from home reporting lower [...] Your Medications These medications were sent to [id number] - [place], [place] - [address] [facility] [address] [facility] [id number] ?? levofloxacin 500 MG tablet ?? metroNIDAZOLE [...] Written by the doctors and editors at [facility] What is diverticulitis???--??Diverticulitis is a disorder that [...] process is complete. This topic retrieved from [employer] on: Nov 14, 2018. Topic 08569 Version 8.0 Release: 26.5.5 - C27.6 ?2019??[employer]. and/or its affiliates.??All rights reserved. figure 1: Digestive system This drawing shows the organs in the body that process food. Together these organs are called the digestive system, or digestive tract. As food travels through this system, the body absorbs nutrients and water. Graphic 58611 Version 4.0 figure 2: Colonoscopy During a colonoscopy, you lie on your side and the doctor or nurse puts a thin tube with a camera into your anus (from behind). Then the doctor or nurse advances the tube into the rectum and colon. The camera sends pictures from inside your colon to a television screen. Graphic 02525 Version 5.0 Consumer Information Use and Disclaimer [...] that is right for you.The use of [employer] content is governed by the [employer] Terms of Use. ??2019 [employer]. All rights reserved. Copyright ?2019??[employer]. and/or its affiliates.??All rights reserved. * Attachments The following attachments cannot be sent through Care Everywhere. * Metronidazole (Systemic), ADULT (Macedonian) * Levofloxacin (Systemic), ADULT (Macedonian) documented in this encounter Medications at Time [...] - 06/04/2019 8:36 AM CDT Maria Del aCrmen Ray is an 43-year-old female. Date of [...] denies any further nausea. 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 Objective Filed [...] abdominal pain is improving, however she is oxide furnace tender. She denies any shortness of breath, [...] IS ABLE TO TRANSPORT PATIENT HOME AT NE. PATIENT DENIES ANY HOME NEEDS/CONCERNS. IS INDEPENDENT [...] No results for input(s): PH, PCO2, PO2, [id number], BICARBWB, BASEDEFICIT, BASEEXCESS in the [id number] hours. Imagining & Other Studies Ct Abd+pel [...] Urinary Symptoms History of Present Illness 43-year-old -Martiniquais female patient with history of partial hysterectomy [...] CLEAN CATCH COLOR YELLOW TRANSPARENCY CLEAR Specific [place] (U) 1.026 1.001 - 1.030 U PH [...] IV CON ONLY Final Result by User, [id number] (06/01 010) EXAMINATION: CT Abdomen and Pelvis with contrast EXAM DATE/TIME: 06/01/2019 12:31 AM REASON FOR EXAM: Abdominal pain, unspecified [id number] to the ed from home reporting lower [...] Admit Follow-Up: No follow-up provider specified. BEVERLY EFRRO PA-C 06/01/2019 Beverly Ferro PA-C 06/01/19 0115 [...] ISAMAR Guerra - 05/31/2019 10:23 PM CDT [place], [place] EMERGENCY DEPARTMENT ENCOUNTER Medical Screening Examination [...] to initiate pt care. ISAMAR Guerra 05/31/19 [id number] Cosigned by Jaylan Mcelroy MD at 06/01/2019 [...] BASIC METABOLIC PANEL (06/04/2019 4:51 AM CDT) [facility] Signature GLUCOSE 83 70 - 99 MG/DL 06/04/2019 5:57 AM CDT [facility] BUN 10 7 - 18 MG/DL 06/04/2019 5:57 AM CDT [facility] CREATININE S/P/B 0.95 0.55 - 1.02 MG/DL 06/04/2019 5:57 AM CDT [facility] SODIUM S/P/B 140 136 - 145 MMOL/L 06/04/2019 5:57 AM CDT [facility] POTASSIUM S/P/B 3.9 3.5 - 5.1 MMOL/L 06/04/2019 5:57 AM CDT [facility] CHLORIDE S/P/B 110(H) 100 - 108 MMOL/L 06/04/2019 5:57 AM CDT [facility] CO2 24.4 21 - 32 MMOL/L 06/04/2019 5:57 AM CDT [facility] CALCIUM S/P/B 8.6 8.5 - 10.1 MG/DL 06/04/2019 5:57 AM CDT [facility] ANION GAP 5.6 5 - 15 MMOL/L 06/04/2019 5:57 AM CDT [facility] BUN CREATININE RATIO 10.5 6 - 26 06/04/2019 5:57 AM CDT [facility] EGFR NON-AFR. AMER. 74(L) >90 ML/MIN/1.7 3 M2 06/04/2019 5:57 AM CDT [facility] EGFR AFR. AMER. 86(L) >90 ML/MIN/1.7 3 M2 06/04/2019 5:57 AM CDT [facility] Comment: NOTE: eGFR is not calculated for patients <18 years of age. This is an estimated GFR (CKD EPI) and should not be used for calculating drug doses. 06/04/2019 4:51 AM CDT Ashlee Casillas PA-C LABORATORY Final Result [facility] [address] [place] [address], [place] [phone] * CBC W/DIFF AUTOMATED (06/04/2019 4:51 AM CDT) WBC 8.0 4.5 - 11.0 x10'3/uL 06/04/2019 5:28 AM CDT [facility] RBC 4.52 4.20 - 5.40 x10'6/uL 06/04/2019 5:28 AM CDT [facility] HGB 12.9 12.0 - 16.0 G/DL 06/04/2019 5:28 AM CDT [facility] HCT 40.0 38.0 - 48.0 % 06/04/2019 5:28 AM CDT [facility] MCV 88.5 80.0 - 94.0 FL 06/04/2019 5:28 AM CDT [facility] MCH 28.5 27.0 - 31.0 PG 06/04/2019 5:28 AM CDT [facility] MCHC 32.3 32.0 - 36.0 G/DL 06/04/2019 5:28 AM CDT [facility] RDW 13.6 11.5 - 14.5 % 06/04/2019 5:28 AM CDT [facility] PLT 270 130 - 400 x10'3/uL 06/04/2019 5:28 AM CDT [facility] MPV 10.0 9.3 - 12.2 FL 06/04/2019 5:28 AM CDT [facility] DIFFERENTIAL TYPE AUTOMATED DIFFERENTIAL 06/04/2019 5:28 AM CDT [facility] NEUTROPHILS % 60.9 % 06/04/2019 5:28 AM CDT [facility] LYMPHOCYTES % 30.3 % 06/04/2019 5:28 AM T [facility] MONOCYTES % 7.3 % 06/04/2019 5:28 AM CDT [facility] EOSINOPHILS 0.7 % 06/04/2019 5:28 AM CDT [facility] BASOPHILS 0.6 % 06/04/2019 5:28 AM CDT [facility] IMMATURE GRANS % 0.2 % 06/04/20 19 5:28 AM CDT [facility] ABS. NEUTROPHILS TOTAL 4.88 1.80 - 7.70 x10'3/uL 06/04/2019 5:28 AM CDT [facility] ABS. LYMPHOCYTES 2.44 1.00 - 4.80 x10'3/uL 06/04/2019 5:28 AM CDT [facility] ABS. MONOCYTES 0.59 0.24 - 0.86 x10'3/uL 06/04/2019 5:28 AM CDT [facility] ABS. EOSINOPHILS 0.06 0.04 - 0.36 x10'3/uL 06/04/2019 5:28 AM CDT [facility] ABS. BASOPHILS 0.05 0.01 - 0.08 x10'3/uL 06/04/2019 5:28 AM CDT [facility] ABS. IMMATURE GRANULOCYTES 0.02 0.00 - 0.49 x10'3/uL 06/04/2019 5:28 AM CDT [facility] 06/04/2019 4:51 AM CDT Ashlee Caisllas PA-C LABORATORY Final Result [facility] [address] [place] [address], [place] [phone] * (ABNORMAL) BASIC METABOLIC PANEL (06/03/2019 5:17 AM CDT) GLUCOSE 80 70 - 99 MG/DL 06/03/2019 6:11 AM CDT [facility] BUN 8 7 - 18 MG/DL 06/03/2019 6:11 AM CDT [facility] CREATININE S/P/B 0.81 0.55 - 1.02 MG/DL 06/03/2019 6:11 AM T [facility] SODIUM S/P/B 140 136 - 145 MMOL/L 06/03/2019 6:11 AM [facility] POTASSIUM S/P/B 4.1 3.5 - 5.1 MMOL/L 06/03/2019 6:11 AM T [facility] CHLORIDE S/P/B 113(H) 100 - 108 MMOL/L 06/03/2019 6:11 AM T [facility] CO2 23.5 21 - 32 MMOL/L 06/03/2019 6:11 AM T [facility] CALCIUM S/P/B 8.1(L) 8.5 - 10.1 MG/DL 06/03/2019 6:11 AM T [facility] ANION GAP 3.5(L) 5 - 15 MMOL/L 06/03/2019 6:11 AM T [facility] BUN CREATININE RATIO 9.8 6 - 26 06/03/2019 6:11 AM T [facility] EGFR NON-AFR. AMER. 90(L) >90 ML/MIN/1.7 3 M2 06/03/2019 6:11 AM T [facility] EGFR AFR. AMER. >90 >90 ML/MIN/1.7 3 M2 06/03/2019 6:11 AM [facility] Comment: NOTE: eGFR is not calculated for patients <18 years of age. This is an estimated GFR (CKD EPI) and should not be used for calculating drug doses. 06/03/2019 5:17 AM CDT Ashlee Casillas PA-C LABORATORY Final Result [facility] [address] [place] [address], [place] [phone] * (ABNORMAL) CBC W/DIFF AUTOMATED (06/03/2019 5:17 AM CDT) [facility] WBC 7.1 4.5 - 11.0 x10'3/uL 06/03/2019 5:48 AM CDT [facility] RBC 4.22 4.20 - 5.40 x10'6/uL 06/03/2019 5:48 AM CDT [facility] HGB 12.3 12.0 - 16.0 G/DL 06/03/2019 5:48 AM CDT [facility] HCT 37.8(L) 38.0 - 48.0 % 06/03/2019 5:48 AM CDT [facility] MCV 89.6 80.0 - 94.0 FL 06/03/2019 5:48 AM CDT [facility] MCH 29.1 27.0 - 31.0 PG 06/03/2019 5:48 AM CDT [facility] MCHC 32.5 32.0 - 36.0 G/DL 06/03/2019 5:48 AM CDT [facility] RDW 13.5 11.5 - 14.5 % 06/03/2019 5:48 AM CDT [facility] PLT 247 130 - 400 x10'3/uL 06/03/2019 5:48 AM CDT [facility] MPV 9.7 9.3 - 12.2 FL 06/03/2019 5:48 AM CDT [facility] DIFFERENTIAL TYPE AUTOMATED DIFFERENTIAL 06/03/2019 5:48 AM CDT [facility] NEUTROPHILS % 61.7 % 06/03/2019 5:48 AM CDT [facility] LYMPHOCYTES % 31.3 % 06/03/2019 5:48 AM CDT [facility] MONOCYTES % 5.5 % 06/03/2019 5:48 AM CDT [facility] EOSINOPHILS 0.8 % 06/03/2019 5:48 AM CDT [facility] BASOPHILS 0.4 % 06/03/2019 5:48 AM CDT [facility] IMMATURE GRANS % 0.3 % 06/03/20 19 5:48 AM CDT [facility] ABS. NEUTROPHILS TOTAL 4.35 1.80 - 7.70 x10'3/uL 06/03/2019 5:48 AM CDT [facility] ABS. LYMPHOCYTES 2.21 1.00 - 4.80 x10'3/uL 06/03/2019 5:48 AM CDT [facility] ABS. MONOCYTES 0.39 0.24 - 0.86 x10'3/uL 06/03/2019 5:48 AM CDT [facility] ABS. EOSINOPHILS 0.06 0.04 - 0.36 x10'3/uL 06/03/2019 5:48 AM CDT [facility] ABS. BASOPHILS 0.03 0.01 - 0.08 x10'3/uL 06/03/2019 5:48 AM CDT [facility] ABS. IMMATURE GRANULOCYTES 0.02 0.00 - 0.49 x10'3/uL 06/03/2019 5:48 AM CDT [facility] 06/03/2019 5:17 AM CDT us Ita Hawk MD LABORATORY Final Resu lt [facility] [address] [place] [address], * (ABNORMAL) BASIC METABOLIC PANEL (06/02/2019 8:07 AM CDT) [facility] GLUCOSE 77 70 - 99 MG/DL 06/02/2019 9:20 AM T [facility] BUN 10 7 - 18 MG/DL 06/02/2019 9:20 AM T [facility] CREATININE S/P/B 0.86 0.55 - 1.02 MG/DL 06/02/2019 9:20 AM CDT [facility] SODIUM S/P/B 140 136 - 145 MMOL/L 06/02/2019 9:20 AM T [facility] POTASSIUM S/P/B 3.9 3.5 - 5.1 MMOL/L 06/02/2019 9:20 AM T [facility] CHLORIDE S/P/B 111(H) 100 - 108 MMOL/L 06/02/2019 9:20 AM T [facility] CO2 23.3 21 - 32 MMOL/L 06/02/2019 9:20 AM T [facility] CALCIUM S/P/B 8.3(L) 8.5 - 10.1 MG/DL 06/02/2019 9:20 AM T [facility] ANION GAP 5.7 5 - 15 MMOL/L 06/02/2019 9:20 AM T [facility] BUN CREATININE RATIO 11.6 6 - 26 06/02/2019 9:20 AM T [facility] EGFR NON-AFR. AMER. 83(L) >90 ML/MIN/1.7 3 M2 06/02/2019 9:20 AM T [facility] EGFR AFR. AMER. >90 >90 ML/MIN/1.7 3 M2 06/02/2019 9:20 AM T [facility] Comment: NOTE: eGFR is not calculated for patients <18 years of age. This is an estimated GFR (CKD EPI) and should not be used for calculating drug doses. 06/02/2019 8:07 AM CDT us Milo Reynaga MD LABORATORY Final Resul t Performing Organization Address City/[facility] Co de Phone Number [facility] [address] [place] [address], * MAGNESIUM (06/02/2019 8:07 AM CDT) MAGNESIUM 1.9 1.8 - 2.4 MG/DL 06/02/2019 9:20 AM CDT [facility] 06/02/2019 8:07 AM CDT us Milo Reynaga MD LABORATORY Final Resul t Performing Organization Address [facility] de Phone Number [facility] [address] [place] [address], [place] [phone] * (ABNORMAL) PROTHROMBIN TIME, VENOUS (06/02/2019 8:07 AM CDT) PROTIME 12.4(H) 9.6 - 12.2 SEC 06/02/2019 9:13 AM CDT [facility] INR 1.1 06/02/2019 9:13 AM CDT [facility] Comment: Recommended INR Therapeutic Goals: ??2.0-3.0 Routine Therapy ??2.5-3.5 Mechanical Prosthetic Valves (High Risk) ??3.0-4.0 Acute OK (to prevent Systemic Embolism) The INR is used only for patients on stable oral anticoagulant therapy. It makes no significant contribution to the diagnosis or treatment of patients whose Protime is prolonged for other reasons. 06/02/2019 8:07 AM CDT us Milo Reynaga MD LABORATORY Final Resul t [facility] [address] [place] [address], [place] [phone] * (ABNORMAL) CBC W/DIFF AUTOMATED (06/02/2019 8:07 AM CDT) WBC 11.4(H) 4.5 - 11.0 x10'3/uL 06/02/2019 8:55 AM CDT [facility] RBC 4.64 4.20 - 5.40 x10'6/uL 06/02/2019 8:55 AM CDT [facility] HGB 13.6 12.0 - 16.0 G/DL 06/02/2019 8:55 AM CDT [facility] HCT 42.0 38.0 - 48.0 % 06/02/2019 8:55 AM CDT [facility] MCV 90.5 81.0 - 99.0 FL 06/02/2019 8:55 AM CDT [facility] MCH 29.3 27.0 - 31.0 PG 06/02/2019 8:55 AM CDT [facility] MCHC 32.4 32.0 - 36.0 G/DL 06/02/2019 8:55 AM CDT [facility] RDW 13.8 11.5 - 14.5 % 06/02/2019 8:55 AM CDT [facility] PLT 275 130 - 400 x10'3/uL 06/02/2019 8:55 AM CDT [facility] MPV 10.1 9.3 - 12.2 FL 06/02/2019 8:55 AM CDT [facility] DIFFERENTIAL TYPE AUTOMATED DIFFERENTIAL 06/02/2019 8:55 AM CDT [facility] NEUTROPHILS % 74.9 % 06/02/2019 8:55 AM CDT [facility] LYMPHOCYTES % 20.2 % 06/02/2019 8:55 AM CDT [facility] MONOCYTES % 3.7 % 06/02/2019 8:55 AM CDT [facility] EOSINOPHILS 0.5 % 06/02/2019 8:55 AM CDT [facility] BASOPHILS 0.4 % 06/02/2019 8:55 AM CDT [facility] IMMATURE GRANS % 0.3 % 06/02/20 19 8:55 AM CDT [facility] ABS. NEUTROPHILS TOTAL 8.55(H) 1.80 - 7.70 x10'3/uL 06/02/2019 8:55 AM CDT [facility] ABS. LYMPHOCYTES 2.31 1.00 - 4.80 x10'3/uL 06/02/2019 8:55 AM CDT [facility] ABS. MONOCYTES 0.42 0.24 - 0.86 x10'3/uL 06/02/2019 8:55 AM CDT [facility] ABS. EOSINOPHILS 0.06 0.04 - 0.36 x10'3/uL 06/02/2019 8:55 AM CDT [facility] ABS. BASOPHILS 0.05 0.01 - 0.08 x10'3/uL 06/02/2019 8:55 AM CDT [facility] ABS. IMMATURE GRANULOCYTES 0.03 0.00 - 0.49 x10'3/uL 06/02/2019 8:55 AM CDT [facility] 06/02/2019 8:07 AM CDT us Milo Reynaga MD LABORATORY Final Resul t [facility] [address] [place] [address], [place] [phone] * LACTIC ACID (06/01/2019 1:39 AM CDT) LACTIC ACID VENOUS 0.7 0.4 - 2.0 MMOL/L 06/01/2019 2:11 AM CDT [facility] 06/01/2019 1:39 AM CDT Beverly Ferro PA-C LABORATORY Final Resul t [facility] [address] [place] [address], [place] [phone] * CULTURE, BACTERIA, BLOOD (06/01/2019 1:39 AM CDT) SPEC DESCRIPTION BLOOD 06/01/2019 2:04 AM CDT [facility] SPECIAL REQUESTS RIGHT FOREARM 06/01/2019 2:04 AM CDT [facility] CULTURE RESULT NO GROWTH 5 DAYS 06/06/2019 2:13 PM CDT [facility] BLOOD SPECIMEN OBTAINED FOR BLOOD CULTURE / Unknown 06/01/2019 1:39 AM CDT 06/01/2019 2:04 AM CDT Beverly Ferro PA-C MICROBIOLOGY - GENERAL ORDE RABLES Final Result [facility] [address] [place] [address], [place] [phone] * CULTURE, BACTERIA, BLOOD (06/01/2019 1:39 AM CDT) SPEC DESCRIPTION BLOOD 06/01/20 19 1:46 AM CDT [facility] SPECIAL REQUESTS ARM,RIGHT 06/01/20 19 1:46 AM CDT [facility] CULTURE RESULT NO GROWTH 5 DAYS 06/06/2019 2:13 PM CDT [facility] BLOOD SPECIMEN OBTAINED FOR BLOOD CULTURE / Unknown 06/01/2019 1:39 AM CDT 06/01/2019 1:46 AM CDT Beverly Ferro PA-C MICROBIOLOGY - GENERAL ORDEfren AVINA Final Result [facility] [address] [place] [address], * CT ABD+PEL W IV CON ONLY [...] REASON FOR EXAM: ??Abdominal pain, unspecified ? [id number] to the ed from home reporting lower [...] AM REASON FOR EXAM: Abdominal pain, unspecified [id number] to the ed from home reporting lower [...] or evidence of obstructive uropathy. Heather Kirkpatrick AUTOMOTIVE REFINISH TECHNICIAN-BC CT Final Res ult * (ABNORMAL) URINALYSIS (05/31/2019 10:56 PM CDT) SPECIMEN TYPE URINE CLEAN CATCH 05/31/2019 10:50 PM CDT [facility] COLOR (U) YELLOW 05/31/2019 11:17 PM CDT [facility] TRANSPARENCY CLEAR 05/31/2019 11:17 PM CDT [facility] SPECIFIC GRAVITY (U) 1.026 1.001 - 1.030 05/31/2019 11:17 PM CDT [facility] U PH 5.0 5.0 - 9.0 05/31/2019 11:17 PM CDT [facility] LEUKOCYTES (U) NEGATIVE NEGATIVE 05/31/2019 11:17 PM CDT [facility] NITRITES NEGATIVE NEGATIVE 05/31/2019 11:17 PM CDT [facility] PROTEIN (U) NEGATIVE <30 MG/DL 05/31/2019 11:17 PM CDT [facility] URINE GLUCOSE NEGATIVE NEGATIVE MG/DL 05/31/2019 11:17 PM CDT [facility] KETONES MG/DL (U) NEGATIVE NEGATIVE MG/DL 05/31/2019 11:17 PM CDT [facility] UROBILINOGEN 2.0(A) NEGATIVE MG/DL 05/31/2019 11:17 PM CDT [facility] BILIRUBIN (U) NEGATIVE NEGATIVE MG/DL 05/31/2019 11:17 PM CDT [facility] BLOOD (U) SMALL(A) NEGATIVE 05/31/2019 11:17 PM CDT [facility] CULTURE & SENSITIVITY INDICATED? CULTURE IS NOT INDICATED 05/31/2019 11:17 PM CDT [facility] SQUAMOUS EPITHELIALS MANY /LPF 05/31/2019 11:17 PM CDT [facility] MUCUS RARE /LPF 05/31/2019 11:17 PM CDT [facility] WBC/HPF 2 <6 /HPF 05/31/2019 11:17 PM CDT [facility] RBC/HPF 3 <6 /HPF 05/31/2019 11:17 PM CDT [facility] URINE SPECIMEN OBTAINED BY CLEAN CATCH PROCEDURE / Unknown 05/31/2019 10:56 PM CDT Heather Fernando Kaya [facility] URINE ORDERABLES Final Re sult Performing Organization Address City/[facility]/ZIP Co de Phone Number [facility] [address] [place] [id number], [place] [phone] * LIPASE (05/31/2019 10:51 PM CDT) Pathologist [facility] LIPASE 81 73 - 393 UNITS/L 05/31/2019 11:46 PM CDT [facility] 05/31/2019 10:5 1 PM CDT Heather King Kaya [facility] Final Res ult [facility] [address] [place] [id number], [place] [phone] * (ABNORMAL) COMPREHENSIVE METABOLIC PANEL (05/31/2019 10:51 PM CDT) GLUCOSE 91 70 - 99 MG/DL 05/31/2019 11:46 PM CDT [facility] BUN 19(H) 7 - 18 MG/DL 05/31/2019 11:46 PM T [facility] CREATININE S/P/B 1.04(H) 0.55 - 1.02 MG/DL 05/31/2019 11:46 PM CDT [facility] SODIUM S/P/B 143 136 - 145 MMOL/L 05/31/2019 11:46 PM CDT [facility] POTASSIUM S/P/B 3.8 3.5 - 5.1 MMOL/L 05/31/2019 11:46 PM T [facility] CHLORIDE S/P/B 111(H) 100 - 108 MMOL/L 05/31/2019 11:46 PM CDT [facility] CO2 27.3 21 - 32 MMOL/L 05/31/2019 11:46 PM CDT [facility] CALCIUM S/P/B 8.5 8.5 - 10.1 MG/DL 05/31/2019 11:46 PM T [facility] BILIRUBIN TOTAL S/P/B 0.2 0.2 - 1.2 MG/DL 05/31/2019 11:46 PM CDT [facility] TOTAL PROTEIN S/P/B 6.6 6.4 - 8.2 G/DL 05/31/2019 11:46 PM CDT [facility] ALBUMIN S/P/B 3.1(L) 3.4 - 5.0 G/DL 05/31/2019 11:46 PM CDT [facility] AST 15 15 - 37 U/L 05/31/2019 11:46 PM T [facility] ALT 24 14 - 55 U/L 05/31/2019 11:46 PM T [facility] ALKALINE PHOSPHATASE S/P/B 97 50 - 136 U/L 05/31/2019 11:46 PM CDT [facility] ANION GAP 4.7(L) 5 - 15 MMOL/L 05/31/2019 11:46 PM CDT [facility] BUN CREATININE RATIO 18.3 6 - 26 05/31/2019 11:46 PM CDT [facility] A/G RATIO 0.9(L) 1.0 - 2.0 RATIO 05/31/2019 11:46 PM CDT [facility] EGFR NON-AFR. AMER. 66(L) >90 ML/MIN/1.7 3 M2 05/31/2019 11:46 PM CDT [facility] EGFR AFR. AMER. 77(L) >90 ML/MIN/1.7 3 M2 05/31/2019 11:46 PM CDT [facility] Comment: NOTE: eGFR is not calculated for patients <18 years of age. This is an estimated GFR (CKD EPI) and should not be used for calculating drug doses. 05/31/2019 10:5 1 PM CDT Heather Kirkpatrick [facility] Final Res ult [facility] [address] [id number], [place] [phone] * (ABNORMAL) CBC W/DIFF AUTOMATED (05/31/2019 10:51 PM CDT) WBC 13.1(H) 4.5 - 11.0 x10'3/uL 05/31/2019 11:33 PM CDT [facility] [facility] RBC 4.56 4.20 - 5.40 x10'6/uL 05/31/2019 11:33 PM CDT [facility] HGB 13.0 12.0 - 16.0 G/DL 05/31/2019 11:33 PM CDT [facility] HCT 41.3 38.0 - 48.0 % 05/31/2019 11:33 PM CDT [facility] MCV 90.6 80.0 - 94.0 FL 05/31/2019 11:33 PM CDT [facility] MCH 28.5 27.0 - 31.0 PG 05/31/2019 11:33 PM CDT [facility] MCHC 31.5(L) 32.0 - 36.0 G/DL 05/31/2019 11:33 PM CDT [facility] RDW 14.1 11.5 - 14.5 % 05/31/2019 11:33 PM CDT [facility] PLT 281 130 - 400 x10'3/uL 05/31/2019 11:33 PM CDT [facility] MPV 10.2 9.3 - 12.2 FL 05/31/2019 11:33 PM CDT [facility] DIFFERENTIAL TYPE AUTOMATED DIFFERENTIAL 05/31/2019 11:33 PM CDT [facility] NEUTROPHILS % 69.2 % 05/31/2019 11:33 PM CDT [facility] LYMPHOCYTES % 24.0 % 05/31/2019 11:33 PM CDT [facility] MONOCYTES % 5.1 % 05/31/2019 11:33 PM CDT [facility] EOSINOPHILS 0.9 % 05/31/2019 11:33 PM CDT [facility] BASOPHILS 0.5 % 05/31/2019 11:33 PM CDT [facility] IMMATURE GRANS % 0.3 % 05/31/20 19 11:33 PM CDT [facility] ABS. NEUTROPHILS TOTAL 9.04(H) 1.80 - 7.70 x10'3/uL 05/31/2019 11:33 PM CDT [facility] ABS. LYMPHOCYTES 3.13 1.00 - 4.80 x10'3/uL 05/31/2019 11:33 PM CDT [facility] ABS. MONOCYTES 0.66 0.24 - 0.86 x10'3/uL 05/31/2019 11:33 PM CDT [facility] ABS. EOSINOPHILS 0.12 0.04 - 0.36 x10'3/uL 05/31/2019 11:33 PM CDT [facility] ABS. BASOPHILS 0.07 0.01 - 0.08 x10'3/uL 05/31/2019 11:33 PM CDT [facility] ABS. IMMATURE GRANULOCYTES 0.04 0.00 - 0.49 x10'3/uL 05/31/2019 11:33 PM CDT [facility] 05/31/2019 10:5 1 PM CDT Heather Kirkpatrick [facility] Final Res ult [facility] [address] [place] [address], [place] [phone] documented in this encounter Visit Diagnoses Diagnosis [...] Marie Mohr RN)2233 (Given - Provider: Jorge Luis Jones RN) 09 (Given - Provider: Janett [...] Discontinued 030 (New Bag - Provider: Raymond Heard RN)0446 (Infusion Stop Time - Provider: Raymond [...]
--- OUTSIDE RECORDS SUMMARY | 2024-11-04 23:57 | XMS_ITS | Encounter Summary ---
Author Organization [facility] Address [address] [place] [address]. [place] [address] [place] [address] Care Team Providers Care Guest Specialist Name Role Phone Unavailable Primary Care Provider Unavailabl e Reason for Visit * Auth/Cert Specialty Diagnoses / Procedures Referred By Contac t Referred To Contact Diagnoses DIVERTICULITIS Procedures COLONOSCOPY DIAGNOSTIC WITH/WITHOUT SPECIMEN BRUSH/WASH Referral ID Status Reason Start Date Expiration Date Visits Re quested Visits Authorized [id number] 1 1 Encounter Details Date Type Department Care Team (Late st Contact Info) Description 08/09/2019 7:00 AM CDT - 08/09/2019 7:30 AM CDT Surgery [facility] [address] Kathy Bailey MD [address] [place] [address] [phone] COLONOSCOPY WITH polypectomy of sigmoid and rectum [...] through Care Everywhere. * Colonoscopy Discharge Instructions (Egyptian) documented in this encounter H&P Notes * [...] during recuperation were discussed with the patient/family/personal national sales representative. Reasonable alternatives to the patient's proposed procedure/surgery including benefits, risks, and side effects related to the alternatives and the risks related to patient/family/personal national sales representative verbalized understanding and desires to [...] patient and is documented in the clinicchart. #[id number] /NTS * Kathy Bailey MD - 07/31/2019 [...] patient and is documented in the clinicchart. #[id number] /NTS documented in this encounter OR Notes * Op Note - Kathy Bailey MD - 08/09/2019 7:27 AM CDT Tammy Cervantes is an 43-year-old female. Date of Operation: [08/09/2019] Preoperative diagnosis: Diverticulitis Postoperative diagnosis: Diverticulosis, colon polyps Procedure: Colonoscopy to cecum with hot biopsy polypectomy x2 Anesthesia: MAC Assistants: GI Nurse: Marley Marc RN emergency services professional: Andrew Christianson Estimated blood loss: Minimal Specimen: [...] (08/09/2019 12:00 AM CDT) COPATH REPORT ? [facility] ? [address] [facility]. ? [place], [place] ??[address] ? [id number] ? Department of Pathology ? Pathology Report ? SURGICAL FINAL REPORT Patient Name: TAMMY CERVANTES ?? : 1975 (Age: 43) ? Location: [facility] Gender: F ?Collected Date: 08/09/2019 Med Rec #: [id number] ?Date Received: 08/09/2019 Date Reported: 08/10/2019 Provider: [...] as B1. ?? :ath Billing Fee Code(s): 19027(2) [facility] Tissue specimen (specimen) COLON STRUCTURE / Unknown 08/09/2019 7:22 AM CDT Tissue specimen (specimen) COLON STRUCTURE / Unknown 08/09/2019 7:24 AM CDT Kathy Bailey MD PATHOLOGY/CYTOLOGY ORDERABLES Fi nal Result [facility] [address] [place] [address], [place] [phone] documented in this encounter Visit Diagnoses Not [...] Starting on Tahira 08/09/19 at 0720, Until Taihra 08/09/19 at 0732, Intra-Op Given 08/09/2019 7:20 [...]
--- OUTSIDE RECORDS SUMMARY | 2024-11-04 23:57 | XMS_ITS | Encounter Summary ---
Author Organization [facility] Address [address] [place] [address]. [place], [place] [address] [place] [address] Care Team Providers Care Food Technologist Name Role Phone Unavailable Primary Care [...]
--- OUTSIDE RECORDS SUMMARY | 2024-11-04 23:57 | XMS_ITS | Encounter Summary ---
Author Organization [facility] Address [facility]. [place], [place] [address] [place] [address] Care Team Providers Care Refrigerated National Truck Driver Name Role Phone Unavailable Primary [...]
--- OUTSIDE RECORDS SUMMARY | 2024-11-04 23:57 | XMS_ITS | Encounter Summary ---
Author Organization [facility] Address [facility]6 [facility]. [place], [place] [address] [place] [address] Care Team Providers Care Supervisor Cell Maintenance Name Role Phone Unavailable Primary Care Provider [...]
--- OUTSIDE RECORDS SUMMARY | 2024-11-04 23:57 | XMS_ITS | Encounter Summary ---
Author Organization [facility] Address [address] [place] [address]. [place] [address] [place] [address] Care Team Providers Care Engineer Gas Pumping Station Name Role Phone Unavailable Primary Care Provider Unavailabl e Reason for Visit * Reason Onset Date Comments Advise 10/24/2020 advise Encounter Details Date Type Department Care Team (Late st Contact Info) Description 10/24/2020 Telephone [facility] Family and Sports Medicine - [place] [address] [place] [address] Rose Marie Norton, JUAN JOSE [address] [place], [place] [phone] Advise (advise) Social History Tobacco Use Types [...] COVID-19? No / Unsure 10/27/2020 7:36 AM OPTIC FIBRE DRAWER documented as of this encounter Functional Status [...] drum is red that is an infection. C FIBRE DRAWER * Janett Miles CMA - 10/24/2020 1:13 [...] [facility] C FIBRE DRAWER * Lucina Santillan - 10/24/2020 12:47 PM [...] able to do a VV this afternoon. C FIBRE DRAWER documented in this encounter Plan of Treatment Not on file documented as of this encounter Visit Diagnoses Not on filedocumented in this encounter Additional Health Concerns Assessment Noted Time PHQ-9 Depression Total Score: 2 07/17/20 20 9:06 AM CDT documented as of this encounter
--- OUTSIDE RECORDS SUMMARY | 2024-11-04 23:57 | XMS_ITS | Encounter Summary ---
Author Organization [facility] Address [facility]6 [facility]. [place], [place] [address] [place] [address] Care Team Providers Care Thermal Spray Operator Name Role Phone Unavailable Primary Care [...]
--- OUTSIDE RECORDS SUMMARY | 2024-11-04 23:57 | XMS_ITS | Encounter Summary ---
Author Organization [facility] Address [facility] [place] [address] [place] [address] Care Team Providers Care Medical Nurse Name Role Phone Unavailable Primary Care Provider Unavailabl e Encounter Details Date Type Department Care Team (Late st Contact Info) Description 07/17/2020 Orders Only [facility] Medical Group Family and Sports Medicine - [place] [address] [place] [address] Rose Marie Norton, FERMENTER HELPER [address] [place] [address] Social History Tobacco Use Types Packs/Day Years [...]
--- OUTSIDE RECORDS SUMMARY | 2024-11-04 23:57 | XMS_ITS | Encounter Summary ---
Author Organization [facility] Address [facility]. [place], [place] [address] [place] [address] Care Team Providers Care Transport Driver Name Role Phone Unavailable Primary Care [...] COVID-19? No / Unsure 10/22/2020 9:00 PM ROOM SERVER documented as of this encounter Functional Status [...]
--- OUTSIDE RECORDS SUMMARY | 2024-11-04 23:57 | XMS_ITS | Encounter Summary ---
Author Organization [facility] Address [address] [place] [address]. [place], [place] [address] [place] [address] Care Team Providers Care Sales Recruiter Name Role Phone Unavailable Primary Care Provider [...]
--- OUTSIDE RECORDS SUMMARY | 2024-11-04 23:57 | XMS_ITS | Encounter Summary ---
Author Organization [facility] Address [address] [place] [address]. [place] [address] [place] [address] Care Team Providers Care Curtain Stretcher Assembler Name Role Phone Unavailable Primary Care Provider Unavailabl e Reason for Visit * Reason Onset Date Comments Question 06/16/2020 Encounter Details Date Type Department Care Team (Late st Contact Info) Description 06/16/2020 Telephone [facility] Medical Group Family and Sports Medicine - [place] [address] [place] [address] Rose Marie Norton, JUAN JOSE [address] [place] [address] Question Social History Tobacco Use Types Packs/Day [...] lab order will ready for her to pickling solution maker to take to [facility] * Rose Marie Norton NP - 06/16/2020 11:42 AM CDT She would be ill with fever, cough if had pneumonia. I see no reason to do these and expose yourself to radiation. I did order if she is insistent, will have to go to [facility] so will have to come pickling solution maker printed orders. * Sima Miles CMA - [...] are clear. Pt can be reached at [phone] documented in this encounter Plan of Treatment Not on file documented as of this encounter Visit Diagnoses Diagnosis Cough- Primary documented in this encounter
--- OUTSIDE RECORDS SUMMARY | 2024-11-04 23:57 | XMS_ITS | Encounter Summary ---
Author Organization [facility] Address [facility] [place] [address] [place] [address] Care Team Providers Care Corner Cutter Machine Operator Name Role Phone Unavailable Primary Care Provider Unavailabl e Reason for Referral * Surgical (Routine) - Closed Specialty Diagnoses / Procedures Referred By Veronica t Referred To Contact Bariatrics Diagnoses Class 3 severe obesity due to excess calories without serious comorbidity with body mass index (BMI) of 40.0 to 44.9 in adult ([facility]) Rose Marie Ramirez NP [address] [place] [address] Phone: tel: fax: [address] [address] Phone: tel: Referral ID Status Reason Start Date Expiration Date V isits Requested Visits Authorized [id number] Closed Specialty Services 06/24/2020 07/25/2021 99 99 Reason for Visit * Reason Comments UTI Symptoms Here for possible UT I and yeast infection. Would also like CBC CMP Last COVID was Negative. Needs one more negative to return to work. Encounter Details Date Type Department Care Team (Late st Contact Info) Description 06/24/2020 4:00 PM CDT Office Visit [facility] Medical Group Family and Sports Medicine - [place] [address] [place] [address] Rose Marie Ramirez REAL ESTATE FINANCIAL ANALYST [address] [place] [address] UTI Symptoms (Here for possible UTI and [...] Author Status No 06/01/2019 2:55 AM Teja dAams RN Active documented as of this encounter [...] were not included. Primary and Specialty Care [address], [address] [place] [address] OFFICE VISIT NOTE Encounter Date: 06/28/2020 Chief [...] [facility] ??? HYSTERECTOMY Family History Problem Relation Name [...] file Gets together: Not on file Attends denominational service: Not on file Active member of [...] (BMI) of 40.0 to 44.9 in adult ([facility]) - AMB REFERRAL TO BARIATRIC SURGERY ROSE MARIE RAMIREZ NP documented in this encounter Plan of Treatment Scheduled Referrals Name Type Priority Associated Diagnoses Orde r Schedule Ambulatory Referral to Bariatric Surgery Referral Routine Class 3 severe obesity due to excess calories without serious comorbidity with body mass index (BMI) of 40.0 to 44.9 in adult ([facility]) Ordered: 06/24/2020 documented as of this encounter Procedures Procedure Name Priority Date/Time Associated Diagnosis Comments URINALYSIS AUTO DIP Routine 06/24/2020 Dysuria documented in this encounter Results * CULTURE URINE (06/25/2020 8:44 AM CDT) SPEC DESCRIPTION URINE CLEAN CATCH 06/25/2020 5:57 PM CDT [facility] SPECIAL REQUESTS NO SPECIAL REQUEST 06/25/2020 5:57 PM CDT [facility] CULTURE RESULT NO GROWTH 2 DAYS 06/28/2020 9:28 AM CDT [facility] URINE SPECIMEN OBTAINED BY CLEAN CATCH PROCEDURE / Unknown 06/25/2020 8:44 AM CDT 06/25/2020 6:07 PM CDT us Rose Marie Ramirez NP MICROBIOLOGY - GENERAL ORDERABLE S Final Result [facility] [address] [place] [address], [place] [phone] * URINALYSIS AUTO DIP (06/24/2020) GLUCOSE (U) [...] Unknown 06/24/2020 us Rose Marie M Ramirez REAL ESTATE FINANCIAL ANALYST URINE ORDERABLES Final Result [facility], [place] [address] [place] [address], [place] [phone] documented in this encounter Visit Diagnoses Diagnosis Dysuria- Primary Catalina vaginitis Candidiasis of vulva and vagina Class 3 severe obesity due to excess calories without serious comorbidity with body mass index (BMI) of 40.0 to 44.9 in adult ([facility]) documented in this encounter
--- OUTSIDE RECORDS SUMMARY | 2024-11-04 23:57 | XMS_ITS | Encounter Summary ---
Author Organization [facility] Address [address] [place] [address]. [place], [place] [address] [place] [address] Care Team Providers Care Cam Milling Machine Operator Name Role Phone Unavailable [...]
--- OUTSIDE RECORDS SUMMARY | 2024-11-04 23:57 | XMS_ITS | Encounter Summary ---
Author Organization [facility] Address [address] [place] [address]. [place] [address] [place] [address] Care Team Providers Care Chainstitch Zipper Setter Name Role Phone Unavailable Primary Care Provider Unavailabl e Reason for Visit * Reason Comments Wrist Injury Encounter Details Date Type Department Care Team (Latest Contact Info) Description 05/12/2019 4:03 PM CDT - 05/12/2019 5:00 PM CDT [facility] [address] [place] [address] eJsus Martinez, PAPedroC Wrist Injury Discharge Disposition: Home [...] Care Everywhere. * Wrist Sprain Discharge Instructions (Portuguese) documented in this encounter Medications at Time of Discharge azithromycin (ZITHROMAX) 250 MG tabletIndications :Bronchitis Take 2 tablets (500 mg total) by mouth daily for 1 day, THEN 1 tablet (250 mg total) daily for 4 days. 6 tablet 05/07/2019 05/12/2019 documented as of this encounter ED Notes * Jesus Martinez PA-C - 05/12/2019 4:51 PM CDT [facility] Note History of Present Illness [...] LT MIN 3V Final Result by User, [id number] (05/12 5050) EXAMINATION: X-ray left wrist, 4 views HISTORY: [...] substitutions or errors. Jesus Martinez PA-C 05/12/19 9152 Cosigned by Alexander Houston MD at 05/12/2019 [...]
--- OUTSIDE RECORDS SUMMARY | 2024-11-04 23:57 | XMS_ITS | Encounter Summary ---
Author Organization [facility] Address [address] [place] [address]. [place] [address] [place] [address] Care Team Providers Care Bottling Line Attendant Name Role Phone Unavailable Primary Care Provider Unavailabl e Reason for Visit * Reason Onset Date Comments Ultrasound 08/04/2020 Encounter Details Date Type Department Care Team (Late st Contact Info) Description 08/04/2020 Telephone [facility] Medical Group Family and Sports Medicine - [place] [address] [place] [address] Rose Marie Norton, JUAN JOSE [address] [place] [address] Ultrasound Social History Tobacco Use Types Packs/Day [...]
--- OUTSIDE RECORDS SUMMARY | 2024-11-04 23:57 | XMS_ITS | Encounter Summary ---
Author Organization [facility] Address [facility]6 [facility] [place] [address] [place] [address] Care Team Providers Care Sap Business Intelligence Consultant Name Role Phone Unavailable Primary Care Provider Unavailabl e Encounter Details Date Type Department Care Team (Late st Contact Info) Description 06/06/2019 Hospital Follow-up Call [facility] Med/Surg [address] [place] [address] Precious Freedman RN Social History [...]
--- OUTSIDE RECORDS SUMMARY | 2024-11-04 23:58 | XMS_ITS | Encounter Summary ---
Author Organization [facility] Address [address] [place] [address]. [place], [place] [address] [place] [address] Care Team Providers Care At[employer] Retailer Sales Consultant Name Role Phone Unavailable Primary Care Provider Unavailabl e Encounter Details Date Type Department Care Team (Latest Contact Info) Description 10/17/2017 Abstract [facility] Medical Group Social History Tobacco [...]
--- OUTSIDE RECORDS SUMMARY | 2024-11-04 23:58 | XMS_ITS | Encounter Summary ---
Author Organization [facility] Address [address] [place] [address]. [place], [place] [address] [place] [address] Care Team Providers Care Human Performance Technologist Name Role Phone Unavailable Primary Care [...]
--- OUTSIDE RECORDS SUMMARY | 2024-11-04 23:58 | XMS_ITS | Encounter Summary ---
Author Organization [facility] Address [address] [place] [address]. [place], [place] [address] [place] [address] Care Team Providers Care Skin Washer Name Role Phone Rose Marie Norton ASSOCIATE CHIEF NURSE Primary Care Provider + Rose Marie Norton ASSOCIATE CHIEF NURSE Primary Care Provider + Md Generic [place] [...] (Late st Contact Info) Description 07/06/2013 Abstract [facility] [address] [facility] [place], [place] [phone] Camila Manzanares, SCRUFF WORKER [address] [facility] [address] [place] [address] Social History Tobacco Use Types Packs/Day Years [...] finger documented in this encounter Care Teams Skin Washer Relationship Specialty Start Date End Date Rose Marie Norton, ASSOCIATE CHIEF NURSE PCP - General 07/06/15 10/31/16 Rose Marie Norton, ASSOCIATE CHIEF NURSE PCP - General 03/02/15 07/05/15 Tam Trevino MD PCP - General 12/18/14 Iglesia Little MD [address] [place] [address] PCP - General 10/12/14 12/17/14 Iglesia Little MD [address] [place] [address] PCP - General 06/28/14 10/11/14 Iglesia Little MD [address] [place] [address] PCP - General 04/14/14 06/27/14 Iglesia Little MD [address] [place] [address] PCP - General 02/23/14 04/13/14 Iglesia Little MD [address] [place] [address] PCP - General 02/07/14 02/22/14 Iglesia Little MD [address] [place] [id number] PCP - General 10/09/13 02/06/14 , Generic Conversion, PCP - General 10/06/13 , Generic Conversion, PCP - General 09/17/1310/05 Md Generic Conversion, PCP - General 07/06/1309/16 documented as of this encounter
--- OUTSIDE RECORDS SUMMARY | 2024-11-04 23:58 | XMS_ITS | Encounter Summary ---
Author Organization [facility] Address [address] [place] [address]. [place], [place] [address] [place] [address] Care Team Providers Care Monitoring Analyst Name Role Phone Rose Marie Norton REPOSSESSION AGENT Primary Care Provider [phone] Rose Marie Norton REPOSSESSION AGENT Primary Care Provider [phone] Encounter Details Date Type Department Care Team (Latest Contact Info) Description 07/04/2015 Abstract [facility] Medical Group Social History Tobacco Use [...] on filedocumented in this encounter Care Teams Monitoring Analyst Relationship Specialty Start Date End Date Rose Marie Norton, REPOSSESSION AGENT PCP - General 07/06/15 10/31/16 Rose Marie Norton REPOSSESSION AGENT PCP - General 03/02/15 07/05/15 documented as of this encounter
--- OUTSIDE RECORDS SUMMARY | 2024-11-04 23:58 | XMS_ITS | Encounter Summary ---
Author Organization [facility] Address [address] [place] [address]. [place], [place] [address] [place] [address] Care Team Providers Care Procurement Forester Name Role Phone Rose Marie Norton CLAY MAKER Primary Care Provider + Rose Marie Norton CLAY MAKER Primary Care Provider + , Generic Conversion [...] (Late st Contact Info) Description 01/21/2014 Abstract [facility] [place] [address] [facility] [address] [place] [address] Iglesia Little MD [address] [place] [address] [address] [place] [address] Social History Tobacco Use Types Packs/Day Years [...] AREA(S) TWICE DAILY; Therapy: 15Oct2013 to (Last Rx:[id number]) Requested for: 10Dec2013 Ordered 3. Fluticasone Propionate 50 MCG/ACT Nasal Suspension; USE 2 SPRAYS IN EACH NOSTRIL ONCE DAILY; Therapy: 21Nov2013 to (Last Rx:21Nov2013) Requested for: 21Nov2013 Ordered 4. Lisinopril-Hydrochlorothiazide 10-12.5 MG Oral Tablet; TAKE 1 TABLET DAILY; Therapy: (Recorded:[id number]) to Recorded 5. Naproxen 500 MG Oral [...] Iglesia Little M.D.; Jan 23 2014 4:28PM FLOOR SPACE ALLOCATOR (Author) documented in this encounter Plan of Treatment Not on file documented as of this encounter Visit Diagnoses Not on filedocumented in this encounter Care Teams Procurement Forester Relationship Specialty Start Date End Date Rose Marie Norton, CLAY MAKER PCP - General 07/06/15 10/31/16 Rose Marie Norton, CLAY MAKER PCP - General 03/02/15 07/05/15 Tam Gilbert MD PCP - General 12/18/14 Iglesia Little MD [address] [place] [address] PCP - General 10/12/14 12/17/14 Iglesia Little MD [address] [place] [address] PCP - General 06/28/14 10/11/14 Iglesia Little MD [address] [place] [address] PCP - General 04/14/14 06/27/14 Iglesia Little MD [address] [place] [address] PCP - General 02/23/14 04/13/14 Iglesia Little MD [address] [id number] PCP - General 02/07/14 02/22/14 Iglesia Little MD [address] [id number] PCP - General 10/09/13 02/06/14 documented as of this encounter
--- OUTSIDE RECORDS SUMMARY | 2024-11-04 23:58 | XMS_ITS | Encounter Summary ---
Author Organization [facility] Address [address] [place] [address]. [place] [address] [place] [address] Care Team Providers Care Historical Site Guide Name Role Phone Rose Marie Norton MACHINERY ERECTOR Primary Care Provider +2 Rose Marie Norton NP Primary Care Provider + Encounter Details Date Type Department Care Team (Late st Contact Info) Description 03/06/2015 Abstract [facility] Medical Group Family Medicine - [place] [address] [facility], [address] [place] [address] Rose Marie Norton, MACHINERY ERECTOR [address] [place] [phone] Social History Tobacco Use Types Packs/Day Years [...] not pounding. 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 Call if: You become dizzy or lightheaded, especially when you stand up after sitting for a while.; Status:Active; Requested for:[id number]; Ordered; For:Hypertension; Ordered By:Rose Marie Norton; 3. Call if: Your blood pressure is frequently higher than 140/90.; Status:Active; Requested for:[id number]; Ordered; For:Hypertension; Ordered By:Rose Marie Norton; 4. A diet low in sodium and high in potassium, magnesium, and calcium can help your blood pressure.; Status:Active; Requested for:[id number]; Ordered; For:Hypertension; Ordered By:Rose Marie Norton; 5. Begin or continue regular aerobic exercise. Gradually work up to at least 3 sessions of 30 minutes of exercise a week.; Status:Active; Requested for:[id number]; Ordered; For:Hypertension; Ordered By:Rose Marie Norton; 6. Take your blood pressure twice a day. Record the numbers and bring them with you to your appointments.; Status:Active; Requested for:06Mar2015; Ordered; For:Hypertension; Ordered By:Rose Marie Norton; Signatures Electronically signed by : Rose Marie Norton NP; Mar 06 2015 10:40AM FILAMENT WELDER (Author) documented in this encounter Plan of Treatment Not on file documented as of this encounter Visit Diagnoses Not on filedocumented in this encounter Care Teams Historical Site Guide Relationship Specialty Start Date End Date Rose Marie Norton NP PCP - General 07/06/15 10/31/16 Rose Marie Norton NP PCP - General 03/02/15 07/05/15 documented as of this encounter
--- OUTSIDE RECORDS SUMMARY | 2024-11-04 23:58 | XMS_ITS | Encounter Summary ---
Author Organization [facility] Address [address] [place] [address]. [place] [address] [place] [address] Care Team Providers Care Day Care Teacher Name Role Phone Rose Marie Norton NP Primary Care Provider [phone] Encounter Details Date Type Department Care Team (Late st Contact Info) Description 11/14/2015 Abstract [facility] Medical Group Family Medicine - [place] [address] [facility], [address] [place] [address] Rose Marie Norton NP [address] [place] [address] Social History Tobacco Use Types [...] Comments Blood Pressure 126/72 11/14/2015 2:35 PM MARINE MECHANIC Pulse - - Temperature - - Respiratory Rate - - Oxygen Saturation - - Inhaled Oxygen Concentration - - Weight 113.4 kg (250 lb) 11/14/2015 2:35 PM MARINE MECHANIC Height 160 cm (5' 3 ) 11/14/2015 2:35 PM MARINE MECHANIC Body Mass Index 44.29 11/14/2015 2:35 PM MARINE MECHANIC documented in this encounter Progress Notes * Rose Marie Norton NP - 11/14/2015 2:30 PM CST Reason For Visit Health Beauty Consultant Complaint visit pt did not start trokendi [...] Oral Capsule; TAKE 1 CAPSULE DAILY; Therapy: [id number] to (Evaluate:05Dec2015) Requested for: [id number]; Last Rx:[id number] Ordered Allergies 1. No Known Drug Allergies [...] Marie Norton NP; Nov 14 2015 3:11PM MARINE MECHANIC (Author) documented in this encounter Plan of Treatment Not on file documented as of this encounter Visit Diagnoses Not on filedocumented in this encounter Care Teams Day Care Teacher Relationship Specialty Start Date End Date Rose Marie Norton NP PCP - General 07/06/15 10/31/16 documented as of this encounter
--- OUTSIDE RECORDS SUMMARY | 2024-11-04 23:58 | XMS_ITS | Encounter Summary ---
Author Organization [facility] Address [facility]. [place], [place] [address] [place] [address] Care Team Providers Care Animal Cruelty Investigation Supervisor Name Role Phone Rose Marie Norton LOW ALTITUDE AIR DEFENSE GUNNER Primary Care Provider + Rose Marie Norton LOW ALTITUDE AIR DEFENSE GUNNER Primary Care Provider + Tam Gilbert MD Primary Care Provider Unavailable Iglesia Little MD Primary Care Provider + Encounter Details Date Type Department Care Team (Latest Contact Info) Description 10/17/2014 Abstract [facility] Medical Group [...] on filedocumented in this encounter Care Teams Animal Cruelty Investigation Supervisor Relationship Specialty Start Date End Date Rose Marie Norton, LOW ALTITUDE AIR DEFENSE GUNNER PCP - General 07/06/15 10/31/16 Rose Marie Norton LOW ALTITUDE AIR DEFENSE GUNNER PCP - General 03/02/15 07/05/15 Tam Gilbert MD PCP - General 12/18/14 Iglesia Little MD [address] [place] [address] [address] [place] [address] PCP - General 10/12/14 12/17/14 documented as of this encounter
--- OUTSIDE RECORDS SUMMARY | 2024-11-04 23:58 | XMS_ITS | Encounter Summary ---
Author Organization [facility] Address [address] [place] [address]. [place] [address] [place] [address] Care Team Providers Care Broadcaster Name Role Phone Unavailable Primary Care Provider Unavailabl e Encounter Details Date Type Department Care Team (Latest Contact Info) Description 12/08/2018 6:39 PM HEAVY RAIL TRAIN OPERATOR - 12/08/2018 11:59 PM [facility] Hospital Encounter [facility] [place] [address] Rose Marie Norton NP [address] [place] [phone] Discharge Disposition: Home or Self Care (Routine [...] Comments TSH W/REFLEX Routine 12/08/2018 9:28 AM HEAVY RAIL TRAIN OPERATOR Essential hypertension COMPREHENSIVE METABOLIC PANEL Routine 12/08/2018 9:28 AM HEAVY RAIL TRAIN OPERATOR Essential hypertension LIPID PANEL Routine 12/08/2018 9:28 AM HEAVY RAIL TRAIN OPERATOR Essential hypertension CBC W/DIFF AUTOMATED Routine 12/08/2018 9:28 AM HEAVY RAIL TRAIN OPERATOR Essential hypertension documented in this encounter Results * TSH W/REFLEX (12/08/2018 9:28 AM HEAVY RAIL TRAIN OPERATOR) TSH 1.800 0.358 - 3.74 uIU/ML 12/08/2018 7:45 PM HEAVY RAIL TRAIN OPERATOR [facility] Comment: HIGH DOSES OF BIOTIN MAY INTERFERE WITH THIS TEST RESULT. CORRELATION TO CLINICAL HISTORY AND PRESENTATION RECOMMENDED. FREE T4 NOT INDICATED 12/08/2018 9:28 AM HEAVY RAIL TRAIN OPERATOR us Rose Marie Norton PROGRAM REP LABORATORY Final Result [facility] [address] [place] [address], [place] [phone] * (ABNORMAL) LIPID PANEL (12/08/2018 9:28 AM HEAVY RAIL TRAIN OPERATOR) CHOLESTEROL 182 <200 MG/DL 12/08/2018 7:45 PM [facility] TRIGLYCERIDES 96 <150 MG/DL 12/08/2018 7:45 PM [facility] HDL 57 >40.0 MG/DL 12/08/2018 7:45 PM [facility] LDL (CALCULATED) 106(H) <100 MG/DL 12/08/2018 7:45 PM [facility] NON HDL CHOLESTEROL 125 <130 MG/DL 12/08/2018 7:45 PM [facility] CHOL/HDL RATIO 3.2 0.0 - 4.5 12/08/2018 7:45 PM [facility] VLDL CALCULATION 19 5 - 55 MG/DL 12/08/2018 7:45 PM [facility] LIPID INTERPRETATION 12/08/2018 7:45 PM [facility] Comment: NIH CONCENSUS REPORT RECOMMENDATIONS: [...] ?LDL ? >=160 ?>=130 12/08/2018 9:28 AM HEAVY RAIL TRAIN OPERATOR Rose Marie Norton PROGRAM REP LABORATORY Final Result Performing Organization Address City/State/[facility] Co de Phone Number [facility] [address] [place] [address], * (ABNORMAL) COMPREHENSIVE METABOLIC PANEL (12/08/2018 9:28 AM HEAVY RAIL TRAIN OPERATOR) GLUCOSE 87 70 - 99 MG/DL 12/08/2018 7:45 PM HEAVY RAIL TRAIN OPERATOR [facility] BUN 18 7 - 18 MG/DL 12/08/2018 7:45 PM [facility] CREATININE S/P/B 0.96 0.55 - 1.02 MG/DL 12/08/2018 7:45 PM [facility] SODIUM S/P/B 145 136 - 145 MMOL/L 12/08/2018 7:45 PM [facility] POTASSIUM S/P/B 4.4 3.5 - 5.1 MMOL/L 12/08/2018 7:45 PM [facility] CHLORIDE S/P/B 111(H) 100 - 108 MMOL/L 12/08/2018 7:45 PM [facility] CO2 27.6 21 - 32 MMOL/L 12/08/2018 7:45 PM [facility] CALCIUM S/P/B 8.3(L) 8.5 - 10.1 MG/DL 12/08/2018 7:45 PM [facility] BILIRUBIN TOTAL S/P/B 0.2 0.2 - 1.2 MG/DL 12/08/2018 7:45 PM [facility] TOTAL PROTEIN S/P/B 6.3(L) 6.4 - 8.2 G/DL 12/08/2018 7:45 PM [facility] ALBUMIN S/P/B 3.4 3.4 - 5.0 G/DL 12/08/2018 7:45 PM [facility] AST 14(L) 15 - 37 U/L 12/08/2018 7:45 PM [facility] ALT 23 14 - 55 U/L 12/08/2018 7:45 PM [facility] ALKALINE PHOSPHATASE S/P/B 94 50 - 136 U/L 12/08/2018 7:45 PM [facility] ANION GAP 10.8 8 - 20 MMOL/L 12/08/2018 7:45 PM [facility] BUN CREATININE RATIO 18.8 6 - 26 12/08/2018 7:45 PM [facility] A/G RATIO 1.2 1.0 - 2.0 RATIO 12/08/2018 7:45 PM [facility] EGFR NON-AFR. AMER. 73(L) >90 ML/MIN/1.7 3 M2 12/08/2018 7:45 PM [facility] EGFR AFR. AMER. 85(L) >90 ML/MIN/1.7 3 M2 12/08/2018 7:45 PM [facility] Comment: NOTE: eGFR is not calculated for patients <18 years of age. This is an estimated GFR (CKD EPI) and should not be used for calculating drug doses. 12/08/2018 9:28 AM HEAVY RAIL TRAIN OPERATOR Rose Marie Norton NP LABORATORY Final Result [facility] [address] [place] [address], * (ABNORMAL) CBC W/DIFF AUTOMATED (12/08/2018 9:28 AM HEAVY RAIL TRAIN OPERATOR) WBC 9.2 4.5 - 11.0 x10'3/uL 12/08/2018 7:25 PM [facility] RBC 4.54 4.20 - 5.40 x10'6/uL 12/08/2018 7:25 PM [facility] HGB 12.9 12.0 - 16.0 G/DL 12/08/2018 7:25 PM [facility] HCT 42.0 38.0 - 48.0 % 12/08/2018 7:25 PM HEAVY RAIL TRAIN OPERATOR [facility] MCV 92.5 80.0 - 94.0 FL 12/08/2018 7:25 PM [facility] MCH 28.4 27.0 - 31.0 PG 12/08/2018 7:25 PM [facility] MCHC 30.7(L) 32.0 - 36.0 G/DL 12/08/2018 7:25 PM [facility] RDW 14.2 11.5 - 14.5 % 12/08/2018 7:25 PM [facility] PLT 314 130 - 400 x10'3/uL 12/08/2018 7:25 PM [facility] MPV 10.5 9.3 - 12.2 FL 12/08/2018 7:25 PM [facility] DIFFERENTIAL TYPE AUTOMATED DIFFERENTIAL 12/08/2018 7:25 PM [facility] NEUTROPHILS % 63.9 % 12/08/2018 7:25 PM [facility] LYMPHOCYTES % 28.9 % 12/08/2018 7:25 PM [facility] MONOCYTES % 4.3 % 12/08/2018 7:25 PM [facility] EOSINOPHILS 1.8 % 12/08/2018 7:25 PM [facility] BASOPHILS 0.9 % 12/08/2018 7:25 PM [facility] IMMATURE GRANS % 0.2(H) 0 % 12/08/19 19 7:25 PM [facility] ABS. NEUTROPHILS TOTAL 5.90 1.80 - 7.70 x10'3/uL 12/08/2018 7:25 PM [facility] ABS. LYMPHOCYTES 2.67 1.00 - 4.80 x10'3/uL 12/08/2018 7:25 PM [facility] ABS. MONOCYTES 0.40 0.24 - 0.86 x10'3/uL 12/08/2018 7:25 PM [facility] ABS. EOSINOPHILS 0.17 0.04 - 0.36 x10'3/uL 12/08/2018 7:25 PM [facility] ABS. BASOPHILS 0.08 0.01 - 0.08 x10'3/uL 12/08/2018 7:25 PM [facility] ABS. IMMATURE GRANULOCYTES 0.02 0.00 - 0.03 x10'3/uL 12/08/2018 7:25 PM [facility] 12/08/2018 9:28 AM HEAVY RAIL TRAIN OPERATOR Rose Marie Norton NP LABORATORY Final Result [facility] [address] [place] [address], documented in this encounter Visit Diagnoses Diagnosis Essential hypertension Unspecified essential hypertension documented in this encounter
--- OUTSIDE RECORDS SUMMARY | 2024-11-04 23:58 | XMS_ITS | Encounter Summary ---
Author Organization [facility] Address [address] [place] [address]. [place], [place] [address] [place] [address] Care Team Providers Care Retail Assistant Store Manager Name Role Phone Unavailable Primary Care [...]
--- OUTSIDE RECORDS SUMMARY | 2024-11-04 23:58 | XMS_ITS | Encounter Summary ---
Author Organization [facility] Address [address] [place] [address]. [place], [place] [address] [place] [address] Care Team Providers Care Horser Up Name Role Phone Rose Marie Norton CRYOGENICS ENGINEER Primary Care Provider +9 Rose Marie Norton CRYOGENICS ENGINEER Primary Care Provider + Tam Gilbert MD Primary Care Provider Unavailable Encounter Details Date Type Department Care Team (Late st Contact Info) Description 12/18/[address] [facility] [address] [place] [address] Sunshine Espino APNP Social History Tobacco Use [...] limb documented in this encounter Care Teams Horser Up Relationship Specialty Start Date End Date Rose Marie Norton NP PCP - General 07/06/15 10/31/16 Rose Marie Norton NP PCP - General 03/02/15 07/05/15 Tam Gilbert MD PCP - General 12/18/14 documented as of this encounter
--- OUTSIDE RECORDS SUMMARY | 2024-11-04 23:58 | XMS_ITS | Encounter Summary ---
Author Organization [facility] Address [address] [place] [address]. [place] [address] [place] [address] Care Team Providers Care Armed Custom Protection Officer Name Role Phone Rose Marie Norton CARD SETTER Primary Care Provider +2 Rose Marie Norton NP Primary Care Provider +5 Encounter Details Date Type Department Care Team (Late st Contact Info) Description 07/03/2015 Abstract [facility] Medical Group Family Medicine - [place] [address] [facility], [address] [place] [address] Rose Marie Norton, CARD SETTER [address] [place] [address]77- Social History Tobacco Use Types Packs/Day Years [...] 1 TABLET DAILY IN THE MORNING; Therapy: [id number] to (Evaluate:[id number]) Requested for: 06Mar2015; Last Rx:06Mar2015 Ordered Rx By: Rose Marie Norton; Dispense: 30 Days ; #:30 Tablet; Refill: 0; For: Hypertension; YASSINE = N; Verified Transmission to [facility]/PHARMACY #4209; Last Updated By: [employer]; 07/03/2015 4:03:16 PM Allergies 1. No Known [...] For: Hypertension; YASSINE = N; Sent To: [facility]/PHARMACY #2718 2. Triamterene-HCTZ 37.5-25 MG Oral Capsule; TAKE 1 CAPSULE DAILY Rx By: Rose Marie Norton; Dispense: 30 Days ; #:30 Capsule; Refill: 1; For: Hypertension; YASSINE = N; VerifiedTransmission to [facility]/PHARMACY #2713; Last Updated By: [employer]; 07/03/2015 4:03:46 PM 3. CBC W Differential; Status:Active; Requested for:[id number]; Perform:[facility]; Due:02Aug2015; Last Updated By:Melissa Lema; 07/03/2015 4:05:07 PM;Ordered; For:Hypertension; Ordered By:Rose Marie Norton; 4. Compr Metabolic Prof ( CMP ); Status:Active; Requested for:[id number]; Perform:[facility]; Due:02Aug2015; Last Updated By:Melissa Lema; 07/03/2015 4:05:07 PM;Ordered; For:Hypertension; Ordered By:Rose Marie Norton; 5. Lipid Profile; Status:Active; Requested for:[id number]; [facility]; Due:[id number]; Last Updated By:Melissa Lema; 07/03/2015 4:05:07 PM;Ordered; For:Hypertension; Ordered By:Rose Marie Norton; 6. TSH W Reflex Free T4; Status:Active; Requested for:[id number]; [facility]; Due:65Yjk6420; Last Updated By:Melissa Lema; 07/03/2015 4:05:07 PM;Ordered; [...] Marie Norton NP; Jul 04 2015 9:53AM NIGHT WORKER (Author) documented in this encounter Plan of [...] (ABNORMAL) LIPID PANEL (07/06/2015 11:12 AM CDT) [facility] CHOLESTEROL 205(H) <200 mg/dL [facility] TO [...] at this time us Rose Marie Norton CARD SETTER LABORATORY Final Result [facility] TO EPIC CONVERSION * TSH W/REFLEX (SNS) (07/06/2015 11:12 AM CDT) TSH 1.67 0.27 - 4.20 mIU/mL [facility] TO EPIC CONVERSION Comment:Result Comment: FREE T4 NOT INDICATED 07/06/2015 11:1 2 AM CDT 07/06/2015 11:12 AM CDT Narrative [facility] TO EPIC CONVERSION - 07/06/2015 6:13 PM CDT Result Communication: No patient communication needed at this time us Rose Marie Norton CARD SETTER LABORATORY Final Result [facility] CONVERSION documented in this encounter Visit Diagnoses Not on filedocumented in this encounter Care Teams Armed Custom Protection Officer Relationship Specialty Start Date End Date Rose Marie Norton CARD SETTER PCP - General 07/06/15 10/31/16 Rose Marie Norton NP PCP - General 03/02/15 07/05/15 documented as of this encounter
--- OUTSIDE RECORDS SUMMARY | 2024-11-04 23:58 | XMS_ITS | Encounter Summary ---
Author Organization [facility] Address [address] [place] [address]. [place], [place] [address] [place] [address] Care Team Providers Care Career Development Facilitator Name Role Phone Rose Marie Norton COURTROOM DEPUTY OR CALENDAR CLERK Primary Care Provider + Rose Marie Norton COURTROOM DEPUTY OR CALENDAR CLERK Primary Care Provider + , Generic Conversion MD Primary Care Provider Unavailable Iglesia Little MD Primary Care Provider + Iglesia Little MD Primary Care Provider + Encounter Details Date Type Department Care Team (Late st Contact Info) Description 06/28/2014 Abstract [facility] [place] [address] Jeff Orozco MD [address] [facility] [address] [address] Social History Tobacco Use Types Packs/Day Years [...] breath documented in this encounter Care Teams Career Development Facilitator Relationship Specialty Start Date End Date Rose Marie Norton, COURTROOM DEPUTY OR CALENDAR CLERK PCP - General 07/06/15 10/31/16 Rose Marie Norton NP PCP - General 03/02/15 07/05/15 Tam Gilbert MD PCP - General 12/18/14 Iglesia Little MD [address], [place] [address]03- PCP - General 10/12/14 12/17/14 Iglesia Little MD [address] [facility] [address] [place], [place] [address] 566- PCP - General 06/28/14 10/11/14 documented as of this encounter
--- OUTSIDE RECORDS SUMMARY | 2024-11-04 23:58 | XMS_ITS | Encounter Summary ---
Author Organization [facility] Address [address] [place] [address]. [place], [place] [address] [place] [address] Care Team Providers Care Cork Cutter Name Role Phone Rose Marie Norton APPLICATIONS SYSTEMS ANALYST Primary Care Provider + Rose Marie Norton APPLICATIONS SYSTEMS ANALYST Primary Care Provider + Tam Gilbert MD [...] Team (Latest Contact Info) Description 10/12/2013 Abstract [facility] Medical Group Social History [...] on filedocumented in this encounter Care Teams Cork Cutter Relationship Specialty Start Date End Date Rose Marie Norton APPLICATIONS SYSTEMS ANALYST PCP - General 07/06/15 10/31/16 Rose Marie Norton NP PCP - General 03/02/15 07/05/15 Tam Gilbert MD PCP - General 12/18/14 Iglesia Little MD [address] [place] [address] PCP - General 10/12/14 12/17/14 Iglesia Little MD [address] [place] [address] PCP - General 06/28/14 10/11/14 Iglesia Little MD [address] [place] [address] PCP - General 04/14/14 06/27/14 Iglesia Little MD [address] [place] [address] PCP - General 02/23/14 04/13/14 Iglesia Little MD [address] [place] [address] PCP - General 02/07/14 02/22/14 Iglesia Little MD [address] [place] [address] PCP - General 10/09/13 02/06/14 documented as of this encounter
--- OUTSIDE RECORDS SUMMARY | 2024-11-04 23:58 | XMS_ITS | Encounter Summary ---
Author Organization [facility] Address [address] [place] [address]. [place], [place] [address] [place] [address] Care Team Providers Care Boarding House Cook Name Role Phone Rose Marie Norton AUTOMOTIVE WORKER FOREMAN Primary Care Provider + Rose Marie Norton NP Primary Care Provider + Md Generic Conversion MD Primary Care Provider Unavailable Iglesia Little MD Primary Care Provider + Iglesia Little MD Primary Care Provider + Iglesia Little MD Primary Care Provider + Iglesia Little MD Primary Care Provider + Encounter Details Date Type Department Care Team (Late st Contact Info) Description 03/04/2014 Abstract [facility] Medical Group Family Medicine - [place] [address] [facility], [address] [place] [phone] Rose Marie Norton, AUTOMOTIVE WORKER FOREMAN [address] [place] [address] Social History Tobacco Use Types Packs/Day Years [...] encounter Progress Notes * Rose Marie Norton AUTOMOTIVE WORKER FOREMAN - 03/04/2014 11:45 AM CDT Reason For [...] onychomycosis; YASSINE = N; Verified Transmission to [facility]/PHARMACY #4503; Last Updated By: Melissa Lema; 11/21/2013 10:14:11 AM 2. Lisinopril-Hydrochlorothiazide 10-12.5 MG Oral Tablet; TAKE 1 TABLET DAILY; Therapy: (Recorded:[id number]) to Recorded Dispense: 90 Days ; #:90 Tablet; Refill: 0; For: Hypertension; YASSINE = N; Record; Last Updated By: Lori Beltran; 06/05/2012 11:43:03 AM 3. Naproxen 500 MG Oral Tablet; TAKE 1 TABLET EVERY 12 HOURS NEEDED; Therapy: 08Oct2013 to (Evaluate:[id number]); Last Rx:08Oct2013 Ordered Rx By: Iglesia Little; [...] bronchitis; YASSINE = N; Verified Transmission to [facility]Y #4813; Last Updated By: Vel Kay; 02/18/2014 11:29:14 [...] pain; YASSINE = N; Verified Transmission to [facility]Y #2713; Last Updated By: [employer]; 03/04/2014 12:05:17 PM 3. Start: MethylPREDNISolone 16 MG Oral Tablet; Take 1 tablet daily Rx By: Rose Marie Norton; Dispense: 7 Days ; #:7 Tablet; Refill: 0; For: Acute sinusitis, Back pain; YASSINE = N; Verified [facility]; Last Updated By: [employer]; 03/04/2014 12:05:17 PM Discussion/Summary If no improvement treat for allergies Signatures Electronically signed by : Rose Marie Norton NP; Mar 04 2014 1:56PM UMBRELLA MENDER (Author) documented in this encounter Plan of Treatment Not on file documented as of this encounter Visit Diagnoses Not on filedocumented in this encounter Care Teams Boarding House Cook Relationship Specialty Start Date End Date Rose Marie Norton NP PCP - General 07/06/15 10/31/16 Rose Marie oNrton NP PCP - General 03/02/15 07/05/15 Tam Gilbert MD PCP - General 12/18/14 Iglesia Little MD [address] [place] [address] PCP - General 10/12/14 12/17/14 Iglesia Little MD [address] [place] [address] PCP - General 06/28/14 10/11/14 Iglesia Little MD [address] [address] PCP - General 04/14/14 06/27/14 Iglesia Little MD [address] [address] PCP - General 02/23/14 04/13/14 documented as of this encounter
--- OUTSIDE RECORDS SUMMARY | 2024-11-04 23:58 | XMS_ITS | Encounter Summary ---
Author Organization [facility] Address [address] [place] [address]. [place] [address] [place] [address] Care Team Providers Care Annual Greenhouse Manager Name Role Phone Rose Marie Norton STAFF PHYSICIAN Primary Care Provider + Rose Marie Norton NP Primary Care Provider + , Generic Conversion MD Primary Care Provider Unavailable Iglesia Little MD Primary Care Provider + Iglesia Little MD Primary Care Provider + Encounter Details Date Type Department Care Team (Late st Contact Info) Description 07/16/2014 Abstract [facility] Family Medicine - [place] [id number] [facility], [address] [place] [address] Rose Marie Norton, STAFF PHYSICIAN [address] [place] [address] Social History Tobacco Use Types Packs/Day Years [...] encounter Progress Notes * Rose Marie Norton, STAFF PHYSICIAN - 07/16/2014 10:45 AM CDT Reason For [...] Oral Tablet; TAKE 1 TABLET DAILY; Therapy: (Recorded:[id number]) to Recorded Dispense: 90 Days ; #:90 Tablet; Refill: 0; For: Hypertension; YASSINE = N; Record; Last Updated By: Lori Beltran; 06/05/2012 11:43:03 AM 3. Naproxen 500 MG Oral Tablet; TAKE 1 TABLET EVERY 12 HOURS NEEDED; Therapy: [id number] to (Evaluate:[id number]); Last Rx:[id number] Ordered Rx By: Iglesia Little; Dispense: 15 [...] Therapy: 18Feb2014 to (Last Rx:18Feb2014) Requested for: [id number] Ordered Rx By: Rose Marie Norton; Dispense: 0 Days ; #:1 X 8.5 GM Inhaler; Refill: 0; For: Acute bronchitis; YASSINE = N; Verified Transmission to [facility]; Last Updated By: Vel Kay; 02/18/2014 11:29:14 AM Allergies 1. No Known Drug Allergies Recorded By: Lori Beltran; 06/06/2012 10:29:10 AM Vitals Vital Signs [Data Includes: Current Encounter] Recorded by : Melissa Lema at 14Qdf4816 10:58AM Heart Rate 76 Systolic 118 Diastolic [...] prevent it from returning. Status: Complete Done: [id number] Ordered; For: Scabies; Ordered By: Rose Marie Norton Elimite cream prescribed for patient. Signatures Electronically signed by : Rose Marie Norton NP; Jul 16 2014 1:55PM RACE RELATIONS PROFESSOR (Author) documented in this encounter Plan of Treatment Not on file documented as of this encounter Visit Diagnoses Not on filedocumented in this encounter Care Teams Annual Greenhouse Manager Relationship Specialty Start Date End Date Rose Marie Norton NP PCP - General 07/06/15 10/31/16 Rose Marie Norton NP PCP - General 03/02/15 07/05/15 Tam Gilbert MD PCP - General 12/18/14 Iglesia Little MD [address] [place] [address] PCP - General 10/12/14 12/17/14 Iglesia Little MD [address] [address] PCP - General 06/28/14 10/11/14 documented as of this encounter
--- OUTSIDE RECORDS SUMMARY | 2024-11-04 23:58 | XMS_ITS | Encounter Summary ---
Author Organization [facility] Address [address] [place] [address]. [place] [address] [place] [address] Care Team Providers Care Manager Rehab Name Role Phone Unavailable Primary Care Provider Unavailabl e Encounter Details Date Type Department Care Team (Late st Contact Info) Description 12/15/2018 Orders Only [facility] Family and Sports Medicine - [address] [address] Jeana Laguerre, RN Social History Tobacco Use [...]
--- OUTSIDE RECORDS SUMMARY | 2024-11-04 23:58 | XMS_ITS | Encounter Summary ---
Author Organization [facility] Address [address] [place] [address]. [place], [place] [address] [place] [address] Care Team Providers Care Hairspring Cutter Name Role Phone Rose Marie Norton POWERHOUSE MECHANIC APPRENTICE Primary Care Provider + Rose Marie Norton POWERHOUSE MECHANIC APPRENTICE Primary Care Provider + Md Generic Madison TREVINO Primary Care Provider Unavailable Iglesia Little MD Primary Care Provider + Iglesia Little MD Primary Care Provider + Iglesia Little MD Primary Care Provider + Encounter Details Date Type Department Care Team (Late st Contact Info) Description 04/14/[address] [facility] [address] [facility] [address] Camila Manzanares, MANAGER TRANSMISSION [address] [facility] [address] [place] [address] Social History Tobacco Use Types [...] Lumbago documented in this encounter Care Teams Hairspring Cutter Relationship Specialty Start Date End Date Rose Marie Norton POWERHOUSE MECHANIC APPRENTICE PCP - General 07/06/15 10/31/16 Rose Marie Norton NP PCP - General 03/02/15 07/05/15 Tam Trevino MD PCP - General 12/18/14 Iglesia Little MD [address] [place] [facility] [place] [address] PCP - General 10/12/14 12/17/14 Iglesia Little MD [address] [place] [address] PCP - General 06/28/14 10/11/14 Iglesia Little MD [address] [facility] [place] [address] PCP - General 04/14/14 06/27/14 documented as of this encounter
--- OUTSIDE RECORDS SUMMARY | 2024-11-04 23:58 | XMS_ITS | Encounter Summary ---
Author Organization [facility] Address Replaced by [facility] [place] [address] [place] [address] Care Team Providers Care Powder Mixer Name Role Phone Unavailable Primary Care Provider Unavailabl e Encounter Details Date Type Department Care Team (Late st Contact Info) Description 11/01/[address] [facility] [place] [address] Jose Umaña MD [address] [place] [address] Social History Tobacco Use Types Packs/Day Years [...] COMPREHENSIVE METABOLIC PANEL Routine 11/01/2016 11:19 AM BOTTOM SPRAYER LIPID PANEL Routine 11/01/2016 11:19 AM BOTTOM SPRAYER THYROID STIM HORMONE TSH Routine 11/01/2016 11:19 AM BOTTOM SPRAYER CK (CPK) Routine 11/01/2016 11:19 AM BOTTOM SPRAYER documented in this encounter Results * THYROID STIM HORMONE, TSH (11/01/2016 11:19 AM BOTTOM SPRAYER) TSH 1.42 0.27 - 4.20 mIU/mL 11/01/2016 6:18 PM [facility] SERUM OR PLASMA SPECIMEN / Unknown 11/01/2016 11:19 AM BOTTOM SPRAYER 11/01/2016 12:28 PM BOTTOM SPRAYER us Generic Conversion Md [facility] Final R esult [facility] [address] [place] [address], * (ABNORMAL) LIPID PANEL (11/01/2016 11:19 AM BOTTOM SPRAYER) Pathologist [facility] CHOLESTEROL 172 <200 MG/DL 11/01/2016 6:18 PM [facility] Comment: NOTE: Acetaminophen, N Acetyl p benzoquinone imine (NAPQI), N acetylcysteine (NAC), Metamizole, 4 Aminoantipyrine (4 AAP) and 4 Methylamino antipyrine (4 MAP) at high concentrations can cause falsely low results on Lactate, Uric Acid, Cholesterol, Triglyceride, HDL, and Direct LDL. TRIGLYCERIDES 85 <150 MG/DL 11/01/2016 6:18 PM [facility] HDL 55(L) >59 MG/DL 11/01/2016 6:18 PM [facility] LDL (CALCULATED) 100(H) <100 MG/DL 11/01/2016 6:18 PM [facility] NON HDL CHOLESTEROL 117 <130 MG/DL 11/01/2016 6:18 PM [facility] Comment: NOTE: WHEN THE TRIGLYCERIDES ARE >200 mg/dL, NON HDL C IS A SECONDARY TARGET OF THERAPY, WITH A GOAL 30 mg/dL HIGHER THAN THE IDENTIFIED LDL C GOAL. CHOL/HDL RATIO 3.1 0.0 - 4.5 11/01/2016 6:18 PM [facility] VLDL CALCULATION 17 5 - 55 MG/DL 11/01/2016 6:18 PM BOTTOM SPRAYER [facility] LIPID INTERPRETATION 11/01/2016 6:18 PM BOTTOM SPRAYER [facility] Comment: NIH CONCENSUS REPORT RECOMMENDATIONS: [...] ? >=160 ?>=130 11/01/2016 11:1 9 AM BOTTOM SPRAYER 11/01/2016 12:28 PM BOTTOM SPRAYER us Generic Conversion Md MD LABORATORY Final R esult Performing Organization Address City/[facility]/ZIP Co de Phone Number [facility] [address] [place] [address], [place] [phone] * CK (CPK) (11/01/2016 11:19 AM BOTTOM SPRAYER) CPK 127 26 - 192 U/L 11/01/2016 6:18 PM BOTTOM SPRAYER [facility] SERUM OR PLASMA SPECIMEN / Unknown 11/01/2016 11:19 AM BOTTOM SPRAYER 11/01/2016 12:28 PM BOTTOM SPRAYER Generic Conversion Md [facility] Final R esult Performing Organization Address [facility] Co de Phone Number [facility] [address] [place] [address], [place] [phone] * (ABNORMAL) COMPREHENSIVE METABOLIC PANEL (11/01/2016 11:19 AM BOTTOM SPRAYER) GLUCOSE 81 70 - 99 mg/dL 11/01/2016 6:18 PM [facility] BUN 13 8 - 23 mg/dL 11/01/2016 6:18 PM [facility] CREATININE S/P/B 0.78 0.60 - 1.10 mg/dL 11/01/2016 6:18 PM [facility] SODIUM S/P/B 138 136 - 145 mmol/L 11/01/2016 6:18 PM [facility] POTASSIUM S/P/B 4.4 3.5 - 5.1 mmol/L 11/01/2016 6:18 PM [facility] CHLORIDE S/P/B 101 98 - 107 mmol/L 11/01/2016 6:18 PM [facility] CO2 25 22 - 29 mmol/L 11/01/2016 6:18 PM [facility] BILIRUBIN TOTAL S/P/B 0.3 0.2 - 1.2 mg/dL 11/01/2016 6:18 PM [facility] CALCIUM S/P/B 8.8 8.6 - 10.2 mg/dL 11/01/2016 6:18 PM [facility] ALKALINE PHOSPHATASE S/P/B 61 35 - 104 U/L 11/01/2016 6:18 PM [facility] AST 13 0 - 32 U/L 11/01/2016 6:18 PM [facility] TOTAL PROTEIN S/P/B 6.0(L) 6.4 - 8.3 g/dL 11/01/2016 6:18 PM [facility] ALBUMIN S/P/B 3.7 3.5 - 5.2 g/dL 11/01/2016 6:18 PM [facility] ALT 18 0 - 33 U/L 11/01/2016 6:18 PM [facility] GLOBULIN 2.3 2.3 - 3.6 g/dL 11/01/2016 6:18 PM [facility] A/G RATIO 1.6 1.0 - 2.0 11/01/2016 6:18 PM [facility] ANION GAP 16 8 - 20 11/01/2016 6:18 PM [facility] EGFR NON-AFR. AMER. >60 >60 mL/min/1.7 3m'2 11/01/2016 6:18 PM [facility] EGFR AFR. AMER. >60 >60 mL/min/1.7 3m'2 11/01/2016 6:18 PM [facility] Comment: NOTE: eGFR is not calculated for patients <18 years of age. This is an estimated GFR (CKD EPI) and should not be used for calculating drug doses. 11/01/2016 11:1 9 AM BOTTOM SPRAYER 11/01/2016 12:28 PM BOTTOM SPRAYER us Generic Conversion Md [facility] Final R esult Performing Organization Address City/State/[facility] Co de Phone Number [facility] [address] [place] [address], [place] [phone] documented in this encounter Visit Diagnoses Diagnosis Pure hypercholesterolemia documented in this encounter
--- OUTSIDE RECORDS SUMMARY | 2024-11-04 23:58 | XMS_ITS | Encounter Summary ---
Author Organization [facility] Address [address] [place] [address]. [place], [place] [address] [place] [address] Care Team Providers Care Supervisor Refining Name Role Phone Rose Marie Norton PARAEDUCATOR Primary Care Provider + Rose Marie Norton PARAEDUCATOR Primary Care Provider + Md Generic Conversion [...] (Late st Contact Info) Description 10/06/2013 Abstract [facility] [address] [place], [place] [id number] Estuardo Marlow MD [address] [address] Social History Tobacco Use Types [...] joint documented in this encounter Care Teams Supervisor Refining Relationship Specialty Start Date End Date Rose Marie Norton, PARAEDUCATOR PCP - General 07/06/15 10/31/16 Rose Marie Norton PARAEDUCATOR PCP - General 03/02/15 07/05/15 Tam Gilbert MD PCP - General 12/18/14 Iglesia Little MD [address] [place] [address] PCP - General 10/12/14 12/17/14 Iglesia Little MD [address] [place] [address] PCP - General 06/28/14 10/11/14 Iglesia Little MD [address] [place] [address] PCP - General 04/14/14 06/27/14 Iglesia Little MD [address] [place] [address] PCP - General 02/23/14 04/13/14 Iglesia Little MD [address] [place] [address] PCP - General 02/07/14 02/22/14 Iglesia Little MD [address] [facility] [address] [place] [address] PCP - General 10/09/13 02/06/14 , Tam Wallace MD PCP - General 10/06/13 documented as of this encounter
--- OUTSIDE RECORDS SUMMARY | 2024-11-04 23:58 | XMS_ITS | Encounter Summary ---
Author Organization [facility] Address [address] [place] [address]. [place], [place] [address] [place] [address] Care Team Providers Care Brim Stiffener Name Role Phone Roes Marie Norton RN CARE TRANSITION Primary Care Provider + Rose Marie Norton RN CARE TRANSITION Primary Care Provider + , Generic Conversion [...] (Late st Contact Info) Description 10/09/2013 Abstract [facility] [address] [place], [place] [phone] Iglesia Little MD [address] [place] [phone] Social History Tobacco Use Types Packs/Day Years [...] leg documented in this encounter Care Teams Brim Stiffener Relationship Specialty Start Date End Date Rose Marie Norton NP PCP - General 07/06/15 10/31/16 Rose Marie Norton RN CARE TRANSITION PCP - General 03/02/15 07/05/15 Tam Gilbert MD PCP - General 12/18/14 Iglesia Little MD [address] [place] [address] PCP - General 10/12/14 12/17/14 Iglesia Little MD [address] [place] [address] PCP - General 06/28/14 10/11/14 Iglesia Little MD [address] [place] [address] PCP - General 04/14/14 06/27/14 Iglesia Little MD [address] [place] [address] PCP - General 02/23/14 04/13/14 Iglesia Little MD [address] [place] [address] PCP - General 02/07/14 02/22/14 Iglesia Little MD [address] [address] PCP - General 10/09/13 02/06/14 documented as of this encounter
--- OUTSIDE RECORDS SUMMARY | 2024-11-04 23:58 | XMS_ITS | Encounter Summary ---
Author Organization [facility] Address [address] [place] [address]. [place], [place] [address] [place] [address] Care Team Providers Care Peg Driver Name Role Phone Unavailable Primary Care Provider Unavailabl e Encounter Details Date Type Department Care Team (Latest Contact Info) Description 10/11/2017 Abstract [facility] Social History Tobacco Use Types [...]
--- OUTSIDE RECORDS SUMMARY | 2024-11-04 23:58 | XMS_ITS | Encounter Summary ---
Author Organization [facility] Address [address] [place] [address]. [place], [place] [address] [place] [address] Care Team Providers Care Handicrafts Teacher Name Role Phone Rose Marie Norton MONTESSORI PRESCHOOL TEACHER Primary Care Provider [phone] Encounter Details Date Type Department Care Team (Latest Contact Info) Description 10/22/2016 Abstract [facility] Social History Tobacco Use Types [...] on filedocumented in this encounter Care Teams Handicrafts Teacher Relationship Specialty Start Date End Date Rose Marie Norton, [employer]ONTESSORI PRESCHOOL TEACHER PCP - General 07/06/15 10/31/16 documented as of this encounter
--- OUTSIDE RECORDS SUMMARY | 2024-11-04 23:58 | XMS_ITS | Encounter Summary ---
Author Organization [facility] Address [address] [place] [address]. [place], [place] [address] [place] [address] Care Team Providers Care Cleaner Housekeeping Name Role Phone Rose Marie Norton COMBER OPERATOR Primary Care Provider + Rose Marie Norton COMBER OPERATOR Primary Care Provider + Tam Gilbert MD Primary Care Provider Unavailable Iglesia Little MD Primary Care Provider + Iglesia Little MD Primary Care Provider + Encounter Details Date Type Department Care Team (Latest Contact Info) Description 10/07/2014 Abstract [facility] Rose Marie Norton, COMBER OPERATOR [address] [place] [address] Social History Tobacco Use Types Packs/Day Years [...] on filedocumented in this encounter Care Teams Cleaner Housekeeping Relationship Specialty Start Date End Date Rose Marie Norton COMBER OPERATOR PCP - General 07/06/15 10/31/16 Rose Marie Norton COMBER OPERATOR PCP - General 03/02/15 07/05/15 , Tam Wallace, PCP - General 12/18/14 Iglesia Little MD [address] [phone] PCP - General 10/12/14 12/17/14 Iglesia Little MD [address] [id number] PCP - General 06/28/14 10/11/14 documented as of this encounter
--- OUTSIDE RECORDS SUMMARY | 2024-11-04 23:58 | XMS_ITS | Encounter Summary ---
Author Organization [facility] Address [address] [place] [address]. [place], [place] [address] [place] [address] Care Team Providers Care Radio Commentator Name Role Phone Unavailable Primary Care Provider Unavailabl e Encounter Details Date Type Department Care Team (Late st Contact Info) Description 09/10/2017 [place] [address] , Generic Conversion, Social History Tobacco Use [...]
--- OUTSIDE RECORDS SUMMARY | 2024-11-04 23:58 | XMS_ITS | Encounter Summary ---
Author Organization [facility] Address [address] [place] [address]. [place], [place] [address] [place] [address] Care Team Providers Care Rn Rehabilitation Name Role Phone None, Provider Primary Care Provider Juanis Brito NP Primary Care Provider Encounter Details Date Type Department Care Team (Latest Contact Info) Description 09/12/2018 Abstract [facility] , Tam ConversionMD Social History [...] Rule Out 01/08/2024 01/08/2024 01/08/2024 2:18 PM MIXER AND BLENDER COVID-19 Rule Out 10/28/2024 10/28/2024 10/28/2024 10:10 PM MIXER AND BLENDER documented as of this encounter Care Teams Rn Rehabilitation Relationship Specialty Start Date End Date None, Provider, PCP - General 05/06/21 10/27/24 Juanis Richards NP [address] [place] [address] PCP - General Nurse Practitioner Family 10/28/24 documented as of this encounter
--- OUTSIDE RECORDS SUMMARY | 2024-11-04 23:58 | XMS_ITS | Encounter Summary ---
Author Organization [facility] Address [address] [place] [address]. [place], [place] [address] [place] [address] Care Team Providers Care Golf Caddie Name Role Phone Rose Marie Norton MARKETING FORECASTER Primary Care Provider + Rose Marie Norton MARKETING FORECASTER Primary Care Provider + Tam Gilbert MD Primary Care Provider Unavailable Iglesia Little MD Primary Care Provider + Encounter Details Date Type Department Care Team (Late st Contact Info) Description 10/12/2014 Abstract [facility] [place] [address] Jeff Orozco MD [address] [facility] [address] [address] Social History Tobacco Use Types Packs/Day Years [...] of this encounter Visit Diagnoses Diagnosis Asthma ([facility]) Unspecified asthma documented in this encounter Care Teams Golf Caddie Relationship Specialty Start Date End Date Rose Marie Norton MARKETING FORECASTER PCP - General 07/06/15 10/31/16 Rose Marie Norton MARKETING FORECASTER PCP - General 03/02/15 07/05/15 , Tam Wallace, PCP - General 12/18/14 Iglesia Little MD [address] [address] PCP - General 10/12/14 12/17/14 documented as of this encounter
--- OUTSIDE RECORDS SUMMARY | 2024-11-04 23:58 | XMS_ITS | Encounter Summary ---
Author Organization [facility] Address [address] [place] [address]. [place], [place] [address] [place] [address] Care Team Providers Care B2B Sales Professional Name Role Phone Rose Marie Norton PAYROLL SECRETARY Primary Care Provider + Rose Marie Norton PAYROLL SECRETARY Primary Care Provider + , Generic Conversion [...] Team (Latest Contact Info) Description 10/09/2013 Abstract [facility] Iglesia Little MD [address] [address] Social History Tobacco Use Types Packs/Day Years [...] 3 VIEW Routine 10/09/2013 11: 49 AM PROCESSING TECH documented in this encounter Results * XR KNEE RT 3 VIEW (10/09/2013 11:49 AM PROCESSING TECH) Anatomical Region Laterality Modality Knee Radiographic Rosi ging 10/09/2013 11:4 9 AM PROCESSING TECH 10/09/2013 11:49 AM PROCESSING TECH Narrative 10/09/2013 2:56 PM PROCESSING TECH TAMMY CERVANTES MD: IGLESIA LITTLE MD ?? ACCT: [id number] ?? : 1975 PT TYPE: REG CLI ?? SEX: F ORD SITE: [facility] [place] [facility] ? STUDY DATE REPORT # PROCEDURE CODE PROCEDURE ?? 10/09/13 [id number] XR KNEE 3 VIEW RT ? EXTORDERID ? [id number] ? ACCESSION NUMBER ?? [id number] ?CHART DOCUMENT ? IMPRESSION: ? JOINT EFFUSION [...] ALDRICH M.D. ? D: ??10/09/2013 12:03 P ??#[id number] ?? T: ??10/09/2013 ??1:14 P/MA ? CC: ?IGLESIA LITTLE M.D. ? Radiology image is available. Click on Image Link above. Procedure Note Tam Gilbert MD - 08/31/2018 TAMMY CERVANTES ORDERING MD: IGLESIA LITTLE MD ACCT: [id number] : 1975 PT TYPE: REG CLI SEX: F ORD SITE: [facility] IMAGING STUDY DATE REPORT # PROCEDURE CODE PROCEDURE 10/09/13 [id number] XR KNEE 3 VIEW RT EXTORDERID [id number] ACCESSION NUMBER [id number] CHART DOCUMENT IMPRESSION: JOINT EFFUSION AND PREPATELLAR [...] M.D. 10/09/2013 14:55 DEEPTHI ALDRICH M.D. P #[id number] P/CALEB CC: IGLESIA LITTLE M.D. Radiology image is available. Click on Image Link above. us Iglesia iLttle MD GENERAL IMAGING Final Result documented in this encounter Visit Diagnoses Not on filedocumented in this encounter Care Teams B2B Sales Professional Relationship Specialty Start Date End Date Rose Marie Norton PAYROLL SECRETARY PCP - General 07/06/15 10/31/16 Rose Marie Norton PAYROLL SECRETARY PCP - General 03/02/15 07/05/15 Tam Gilbert MD PCP - General 12/18/14 Iglesia Little MD [address] [place] [address] PCP - General 10/12/14 12/17/14 Iglesia Little MD [address] [place] [facility] [place] [address] PCP - General 06/28/14 10/11/14 Iglesia Little MD [address] [place] [address] PCP - General 04/14/14 06/27/14 Iglesia Little MD [address] [place] [address] PCP - General 02/23/14 04/13/14 Iglesia Little MD [address] [id number] PCP - General 02/07/14 02/22/14 Iglesia Little MD [address] [id number] PCP - General 10/09/13 02/06/14 documented as of this encounter
--- OUTSIDE RECORDS SUMMARY | 2024-11-04 23:58 | XMS_ITS | Encounter Summary ---
Author Organization [facility] Address Count includes the [facility] [place] [address] [place] [address] Care Team Providers Care Fast Food Supervisor Name Role Phone Unavailable Primary Care Provider Unavailabl e Encounter Details Date Type Department Care Team (Late st Contact Info) Description 10/07/2017 Abstract [facility] Medical Group Family and Sports Medicine - [place] [address] Sage Gastelum MD Social History Tobacco Use [...] Comments Blood Pressure 126/78 10/07/2017 3:26 PM PENCIL MAKER Pulse 93 10/07/2017 3:26 PM PENCIL MAKER Temperature - - Respiratory Rate - - Oxygen Saturation - - Inhaled Oxygen Concentration - - Weight - - Height - - Body Mass Index - - documented in this encounter Progress Notes * Sage Gastelum MD - 10/07/2017 3:40 PM CST [...] today then repeat in 2 days; Therapy: 55Ryr7162 to (Evaluate:38Ops2218) Requested for: 06Qks7060; Last Rx:13Mbn9254 Ordered Rx By: Rose Marie Norton; Dispense: 2 Days ; #:2 Tablet; Refill: 0; For: Catalina vaginitis; YASSINE = N; Verified Transmission to [facility] 17845; Last Updated By: Vel Kay; 05/30/2017 3:25:07 PM 2. Ibuprofen 800 MG Oral Tablet; TAKE 1 TABLET EVERY 8 HOURS WITH FOOD; Therapy: 14Nov2015 to (Evaluate:12Feb2016) Requested for: 14Nov2015; Last Rx:14Nov2015 Ordered Rx By: Rose Marie Norton; Dispense: 30 Days ; #:90 Tablet; Refill: 2; For: Back pain; YASSINE = N; Verified Transmission to [facility] #2713; Last Updated By: Gabriela KayPost Grad Apartments LLC; 11/14/2015 3:00:55 PM 3. Triamterene-HCTZ 37.5-25 MG Oral Capsule; TAKE ONE CAPSULE BY MOUTH EVERY DAY; Therapy: 07Hsr6304 to (Evaluate:10Sep2017) Requested for: 14Mar2017; Last Rx:14Mar2017 Ordered Rx By: Rose Marie Norton; Dispense: 30 Days ; #:30 Capsule; Refill: 5; For: Hypertension; YASSINE = N; VerifiedTransmission to [facility] #2713; Last Updated By: [email or web address]; 03/14/2017 9:55:22 AM Allergies 1. No Known [...] Bronchitis, acute; YASSINE = N; Sent To: [facility] 05148 2. Pre-printed Instructions given to patient; Status:Complete; Done: 07Oct2017 Ordered; For:Bronchitis, acute; Ordered By:Sage Gastelum; 3. XR CHEST 2 VIEW ( Routine ); Status:Active; Requested for:07Oct2017; Perform:[facility] Radiology; Due:97Wgk4798;Ordered; For:Bronchitis, acute; Ordered By:Sage Gastelum; 4. MethylPREDNISolone 4 MG Oral Tablet Therapy Pack; Take as directed on packaging Rx By: Sage Gastelum; Dispense: 0 Days ; #:1 X 21 Tablet Pack; Refill: 0; For: Bronchitis, acute;YASSINE = N; Sent To: [facility] 70666 5. ProAir HFA 108 (90 Base) MCG/ACT Inhalation Aerosol Solution; INHALE 2 PUFFS EVERY 4 HOURS NEEDED Rx By: Sage Gastelum; Dispense: 0 Days ; #:1 X 8.5 GM Inhaler; Refill: 0; For: Bronchitis, acute;YASSINE = N; Sent To: [facility] 15322; Msg to Pharmacy: Pharmacist: Dispense a spacer. [...] BEEN ORDERED. GET THIS DONE NOW AT [address] [place] [address]. Discussion/Summary ADDENDUM: CXR shows right lung infiltrate [...] Sage Gastelum M.D.; Oct 07 2017 9:14PM PENCIL MAKER (Author) documented in this encounter Plan of Treatment Not on file documented as of this encounter Visit Diagnoses Not on filedocumented in this encounter
--- OUTSIDE RECORDS SUMMARY | 2024-11-04 23:58 | XMS_ITS | Encounter Summary ---
Author Organization [facility] Address [address] [place] [address]. [place], [place] [address] [place] [address] Care Team Providers Care District Court Administrator Name Role Phone Unavailable Primary Care Provider Unavailabl e Encounter Details Date Type Department Care Team (Latest Contact Info) Description 10/13/2017 Abstract [facility] Medical Group Social History Tobacco Use Types [...]
--- OUTSIDE RECORDS SUMMARY | 2024-11-04 23:58 | XMS_ITS | Encounter Summary ---
Author Organization [facility] Address [address] [place] [address]. [place], [place] [address] [place] [address] Care Team Providers Care Charge Accounts Audit Clerk Name Role Phone Rose Marie Norton ETCHER ELECTROLYTIC Primary Care Provider + Rose Marie Norton ETCHER ELECTROLYTIC Primary Care Provider + , Generic Conversion [...] (Late st Contact Info) Description 11/20/2013 Abstract [facility] Medical Group [place] [address] [facility], [address] [place] [address] Iglesia Little MD [address] [place] [address] [address] [place] [address] Social History Tobacco Use Types Packs/Day Years [...] Comments Blood Pressure 130/88 11/20/2013 2:57 PM ASSISTANT PROFESSOR OF PHILOSOPHY Pulse 83 11/20/2013 2:57 PM ASSISTANT PROFESSOR OF PHILOSOPHY Temperature - - Respiratory Rate - - Oxygen Saturation - - Inhaled Oxygen Concentration - - Weight 113.4 kg (250 lb) 11/20/2013 2:57 PM ASSISTANT PROFESSOR OF PHILOSOPHY Height 160 cm (5' 3 ) 11/20/2013 2:57 PM ASSISTANT PROFESSOR OF PHILOSOPHY Body Mass Index 44.29 11/20/2013 2:57 PM ASSISTANT PROFESSOR OF PHILOSOPHY documented in this encounter Progress Notes * [...] MASSAGE INTO AFFECTED AREA(S) TWICE DAILY; Therapy: 59Ikl5313 to (Last Rx:88Xfr0314) Requested for: 97Ntb8295 Ordered; For: Onychomycosis (110.1); Rx By: Iglesia Little; Dispense: 0 Days ; #:1 X 6.6 ML Bottle; Refill: 3; [facility]; Last Updated By: Lori Beltran 2. Lisinopril-Hydrochlorothiazide 10-12.5 MG Oral Tablet; TAKE 1 TABLET DAILY; Therapy: (Recorded:01Ojl0012) to Recorded; For: Hypertension (401.9); Dispense: 90 Days ; #:90 Tablet; Refill: 0; Record; Last Updated By: Lori Beltran 3. Naproxen 500 MG Oral Tablet; TAKE 1 TABLET EVERY 12 HOURS NEEDED; Therapy: 02Zsn3558 to (Evaluate:23Oct2013); Last Rx:43Omp1350 Ordered; For: Joint Pain In The Right [...] ; #:6 Tablet; Refill: 0; [facility] 2. Benzonatate 200 MG Oral Capsule; TAKE 1 CAPSULE 2-3 TIMES DAILY; Therapy: to (Evaluate:30Nov2013); Last Rx:20Nov2013 Ordered; For: Cough (786.2); Rx By: Iglesia Little; Dispense: 10 Days ; #:30 Capsule; Refill: 0; [facility] 3. Nasonex 50 MCG/ACT Nasal Suspension; Inhale 2 sprays in each nostril once daily; Therapy: 20Nov2013 to (Last Rx:20Nov2013) Ordered; For: Cough (786.2); Rx By: Iglesia Little; Dispense: 0 Days ; #:1 GM; Refill: 5; [facility] Signatures Electronically signed by : Iglesia Little M.D.; Nov 20 2013 3:11PM (Author) STANT PROFESSOR OF PHILOSOPHY documented in this encounter Plan of Treatment Not on file documented as of this encounter Visit Diagnoses Not on filedocumented in this encounter Care Teams Charge Accounts Audit Clerk Relationship Specialty Start Date End Date Rose Marie Norton NP PCP - General 07/06/15 10/31/16 Rose Marie Norton NP PCP - General 03/02/15 07/05/15 Tam Gilbert MD PCP - General 12/18/14 Iglesia Little MD [address] [place] [address] PCP - General 10/12/14 12/17/14 Iglesia Little MD [address] [place] [address] PCP - General 06/28/14 10/11/14 Iglesia Little MD [address] [place] [address] PCP - General 04/14/14 06/27/14 Iglesia Little MD [address] [place] [address] PCP - General 02/23/14 04/13/14 Iglesia Little MD [address] [place], [place] [phone] PCP - General 02/07/14 02/22/14 Iglesia Little MD [address] [place], [place] [address] 230- PCP - General 10/09/13 02/06/14 documented as of this encounter
--- OUTSIDE RECORDS SUMMARY | 2024-11-04 23:58 | XMS_ITS | Encounter Summary ---
Author Organization [facility] Address [address] [place] [address]. [place], [place] [address] [place] [address] Care Team Providers Care Immunochemist Name Role Phone Rose Marie Norton MULTIFOCAL LENS ASSEMBLER Primary Care Provider + Rose Marie Norton MULTIFOCAL LENS ASSEMBLER Primary Care Provider + Tam Gilbert MD Primary Care Provider Unavailable Iglesia Little MD Primary Care Provider + Iglesia Little MD Primary Care Provider + Iglesia Little MD Primary Care Provider + Encounter Details Date Type Department Care Team (Latest Contact Info) Description 06/13/2014 Abstract [facility] Medical Group [...] on filedocumented in this encounter Care Teams Immunochemist Relationship Specialty Start Date End Date Rose Marie Norton NP PCP - General 07/06/15 10/31/16 Rose Marie Norton MULTIFOCAL LENS ASSEMBLER PCP - General 03/02/15 07/05/15 Tam Gilbert MD PCP - General 12/18/14 Iglesia Little MD [address] [facility] [place] [address] PCP - General 10/12/14 12/17/14 Iglesia Little MD [address] [place] [address] 509- PCP - General 06/28/14 10/11/14 Iglesia Little MD [address] [facility] [place], [place] [address] 313- PCP - General 04/14/14 06/27/14 documented as of this encounter
--- OUTSIDE RECORDS SUMMARY | 2024-11-04 23:58 | XMS_ITS | Encounter Summary ---
Author Organization [facility] Address [address] [place] [address]. [place], [place] [address] [place] [address] Care Team Providers Care Park Interpretive Ranger Name Role Phone Unavailable Primary Care Provider Unavailabl e Encounter Details Date Type Department Care Team (Latest Contact Info) Description 12/30/2017 Abstract [facility] Medical Group Social History Tobacco Use Types [...]
--- OUTSIDE RECORDS SUMMARY | 2024-11-04 23:58 | XMS_ITS | Encounter Summary ---
Author Organization [facility] Address [address] [place] [address]. [place], [place] [address] [place] [address] Care Team Providers Care Computer Compositor Name Role Phone Unavailable Primary Care Provider Unavailabl e Encounter Details Date Type Department Care Team (Latest Contact Info) Description 12/27/2017 Abstract [facility] Medical Group Social History Tobacco [...]
--- OUTSIDE RECORDS SUMMARY | 2024-11-04 23:58 | XMS_ITS | Encounter Summary ---
Author Organization [facility] Address [address] [place] [address]. [place], [place] [address] [place] [address] Care Team Providers Care Laboratory Equipment Cleaner Name Role Phone Rose Marie Norton USED CAR RENOVATOR Primary Care Provider + Rose Marie Norton USED CAR RENOVATOR Primary Care Provider + Tam Gilbert MD [...] Team (Latest Contact Info) Description 01/18/2014 Abstract [facility] Medical Group Social History Tobacco Use [...] on filedocumented in this encounter Care Teams Laboratory Equipment Cleaner Relationship Specialty Start Date End Date Rose Marie Norton USED CAR RENOVATOR PCP - General 07/06/15 10/31/16 Rose Marie Norton NP PCP - General 03/02/15 07/05/15 Tam Gilbert MD PCP - General 12/18/14 Iglesia Little MD [address] [place] [address] PCP - General 10/12/14 12/17/14 Iglesia Little MD [address] [place] [address] PCP - General 06/28/14 10/11/14 Iglesia Little MD [address] [place] [address] PCP - General 04/14/14 06/27/14 Iglesia Little MD [address] [place] [address] PCP - General 02/23/14 04/13/14 Iglesia Little MD [address] [place] [address] PCP - General 02/07/14 02/22/14 Iglesia Littel MD [address] [place] [address] PCP - General 10/09/13 02/06/14 documented as of this encounter
--- OUTSIDE RECORDS SUMMARY | 2024-11-04 23:58 | XMS_ITS | Encounter Summary ---
Author Organization [facility] Address [address] [place] [address]. [place], [place] [address] [place] [address] Care Team Providers Care Extractions Technologist Name Role Phone Rose Marie Norton TAX COMPLIANCE REPRESENTATIVE Primary Care Provider + Rose Marie Norton TAX COMPLIANCE REPRESENTATIVE Primary Care Provider + Tam Trevino MD Primary Care Provider Unavailable Iglesia Little MD Primary Care Provider + Iglesia Little MD Primary Care Provider + Iglesia Little MD Primary Care Provider + Encounter Details Date Type Department Care Team (Latest Contact Info) Description 04/14/2014 Abstract [facility] Medical Group Tam Trevino MD Social [...] CERVANTESTAMMY Sanchez MD: NEWTON BENDER ?? ACCT: [id number] ?? ADMIT/SERVICE DATE: 04/14/14 DISCHARGE DATE: 04/14/14 ?? : 1975 PT TYPE: DEP CLI ?? SEX: F [facility] ? STUDY DATE REPORT # PROCEDURE CODE PROCEDURE ?? 04/14/14 [id number] LSPN2-3V XR LUMBAR SPINE 2 TO 3 VIEWS ? EXTORDERID ? [id number] ? ACCESSION NUMBER ?? [id number] ?CHART DOCUMENT ? IMPRESSION: ? MILD ARTHRITIS. [...] LEW M.D. ? D: ??04/14/2014 ??4:05 P ??#[id number] ?? T: ??04/14/2014 ??5:48 P/MA ? CC: ?IGLESIA LITTLE M.D. ?NEWTON BENDER, RAE ? Procedure Note Tam Trevino MD - 08/30/2018 TAMMY CERVANTES ORDERING MD: NEWTON BENDER ACCT: [id number] ADMIT/SERVICE DATE: 04/14/14 DISCHARGE DATE: 04/14/14 : 1975 PT TYPE: DEP CLI SEX: F ORD SITE: [facility] STUDY DATE REPORT # PROCEDURE CODE PROCEDURE 04/14/14 [id number] LSPN2-3V XR LUMBAR SPINE 2 TO 3 VIEWS EXTORDERID [id number] ACCESSION NUMBER [id number] CHART DOCUMENT IMPRESSION: MILD ARTHRITIS. GRADE 1 RETROLISTHESIS L5-S1 LEVEL. HISTORY: LIFTING INJURY. RIGHT-SIDED BACK PAIN. BACK POPPED. LUMBAR SPINE X-RAYS TECHNIQUE: AP AND LATERAL VIEWS AND SPOT LATERAL VIEW OF THE LUMBOSACRAL JUNCTION. FINDINGS: NO COMPRESSION FRACTURE. MILD DEGREE OF ARTHRITIS. GRADE 1 RETROLISTHESIS L5-S1 LEVEL. ELECTRONICALLY SIGNED BY: JESSICA LEW M.D. 04/14/2014 18:50 JESSICA LEW M.D. P #[id number] P/MA CC: Vy CEDENO, MSN us Generic Conversion Md TREVINO SCANNING Final R esult documented in this encounter Visit Diagnoses Not on filedocumented in this encounter Care Teams Extractions Technologist Relationship Specialty Start Date End Date Rose Marie Norton, TAX COMPLIANCE REPRESENTATIVE PCP - General 07/06/15 10/31/16 Rose Marie Norton, TAX COMPLIANCE REPRESENTATIVE PCP - General 03/02/15 07/05/15 Tam Trevino MD PCP - General 12/18/14 Iglesia Little MD [address] [place], [place] [phone]- PCP - General 10/12/14 12/17/14 Iglesia Little MD [address] [place], [place] [phone]- PCP - General 06/28/14 10/11/14 Iglesia Little MD [address] [place], [place] [phone]- PCP - General 04/14/14 06/27/14 documented as of this encounter
--- OUTSIDE RECORDS SUMMARY | 2024-11-04 23:58 | XMS_ITS | Encounter Summary ---
Author Organization [facility] Address [address] [place] [address]. [place], [place] [address] [place] [address] Care Team Providers Care Physician Practice Market Manager Name Role Phone Rose Marie Norton TRANSPLANT RN Primary Care Provider + Rose Marie Norton TRANSPLANT RN Primary Care Provider + , Generic Conversion Primary Care Provider Unavailable Iglesia Little MD Primary Care Provider + Iglesia Little MD Primary Care Provider + Iglesia Little MD Primary Care Provider + Iglesia Little MD Primary Care Provider + Iglesia Little MD Primary Care Provider + Encounter Details Date Type Department Care Team (Latest Contact Info) Description 02/22/2014 Abstract [facility] Medical Group Social History [...] EDITED Date: 27 Feb 2014 3:31 PM PRODUCTION GEAR CUTTER, Recorded By: Melissa Lema Phone: [phone] (Mobile Phone) Reason: Results Inquiry PT CALLED, PERMISSION TO LEAVE VOICEMAIL ON MACHINE IF NEEDED. LEFT MESSAGE, XRAY NEG IF SHE HAS ANYMORE CONCERNS OR QUESTIONS TO CALL OUR OFFICE. Current Meds 1. Azithromycin 250 MG Oral Tablet; Take 2 tablets today, then 1 tablet daily for 4 days; Therapy: 18Feb2014 to (Last Rx:18Feb2014) Requested for: 53Lth8072 Ordered 2. Fluticasone Propionate 50 MCG/ACT Nasal Suspension; USE 2 SPRAYS IN EACH NOSTRIL ONCE DAILY; Therapy: 21Nov2013 to (Last Rx:21Nov2013) Requested for: 21Nov2013 Ordered 3. Lisinopril-Hydrochlorothiazide 10-12.5 MG Oral Tablet; TAKE 1 TABLET DAILY; Therapy: (Recorded:28Tvx9373) to Recorded 4. Naproxen 500 MG Oral Tablet; TAKE 1 TABLET EVERY 12 HOURS NEEDED; Therapy: 11Cyq6092 to (Evaluate:37Zfi9869); Last Rx:78Wte7789 Ordered 5. Omeprazole 40 MG Oral Capsule Delayed Release; TK 1 C PO D; Therapy: 22Nov2012 to (Evaluate:17Nov2013); Last Rx:22Nov2012 Ordered 6. ProAir HFA 108 (90 Base) MCG/ACT Inhalation Aerosol Solution; Take 2 puffs one-minute apart every 4 or more hours as needed for wheeze; Therapy: 18Feb2014 to (Last Rx:08Xcy6852) Requested for: 39Emu6494 Ordered Signatures Electronically signed by : Lori Beltran, ; Feb 22 2014 11:39AM PRODUCTION GEAR CUTTER (Author) Electronically signed by : Iglesia Little M.D.; Apr 25 2014 8:09AM PRODUCTION GEAR CUTTER (Author) documented in this encounter Plan of Treatment Not on file documented as of this encounter Visit Diagnoses Not on filedocumented in this encounter Care Teams Physician Practice Market Manager Relationship Specialty Start Date End Date Rose Marie Norton, TRANSPLANT RN PCP - General 07/06/15 10/31/16 Rose Marie Norton, TRANSPLANT RN PCP - General 03/02/15 07/05/15 Tam Gilbert MD PCP - General 12/18/14 Iglesia Little MD [address] [place] [address] PCP - General 10/12/14 12/17/14 Iglesia Little MD [address] [place] [address] PCP - General 06/28/14 10/11/14 Iglesia Little MD [address] [place] [address] PCP - General 04/14/14 06/27/14 Iglesia Little MD [address] [place] [address] PCP - General 02/23/14 04/13/14 Iglesia Little MD [address] [address] PCP - General 02/07/14 02/22/14 documented as of this encounter
--- OUTSIDE RECORDS SUMMARY | 2024-11-04 23:58 | XMS_ITS | Encounter Summary ---
Author Organization [facility] Address [address] [place] [address]. [place], [place] [address] [place] [address] Care Team Providers Care Medical Accounts Receivable Specialist Name Role Phone Rose Marie Norton HEATING MECHANIC Primary Care Provider + Rose Marie Norton HEATING MECHANIC Primary Care Provider + Tam Gilbert MD Primary Care Provider Unavailable Ashly Little MD Primary Care Provider + Ashly Little MD Primary Care Provider + Ashly Little MD Primary Care Provider + Encounter Details Date Type Department Care Team (Latest Contact Info) Description 04/14/2014 Abstract [facility] Medical Group Tam Gilbert MD Social History [...] CERVANTES ORDERING MD: NEWTON BENDER ?? ACCT: [id number] ?? ADMIT/SERVICE DATE: 04/14/14 DISCHARGE DATE: 04/14/14 ?? : 1975 PT TYPE: DEP CLI ?? SEX: F [facility] S[facility] [place] [facility] ? STUDY DATE REPORT # PROCEDURE CODE PROCEDURE ?? 04/14/148344-6984 TSPN3V XR THORACIC SPINE 3 VIEWS ? EXTORDERID ? [id number] ? ACCESSION NUMBER ?? [id number] ?CHART DOCUMENT ? IMPRESSION: ? NO FRACTURE. ? HISTORY: ??LIFTING INJURY. ??MID BACK PAIN. ??UPPER BACK PAIN. ? THORACIC SPINE X-RAYS ? TECHNIQUE: ??AP, LATERAL AND SWIMMER'S VIEW. ? FINDINGS: ??NO COMPRESSION FRACTURE OR SUBLUXATION. ??DISC SPACES WELL ?? PRESERVED. ? ELECTRONICALLY SIGNED BY: ?? JESSICA LEW M.D. 04/14/2014 18:50 ?? JESSICA LEW M.D. ? D: ??04/14/2014 ??4:06 P ??#[id number] ?? T: ??04/14/2014 ??5:48 P/MA ? CC: ?ASHLY LITTLE M.D. ?NEWTON BENDER, RAE ? Procedure Note Tam Gilbert MD - 08/31/2018 MARIA DEL CARMEN CERVANTES ORDERING MD: NEWTON BENDER ACCT: [id number] ADMIT/SERVICE DATE: 04/14/14 DISCHARGE DATE: 04/14/14 : 1975 PT TYPE: DEP CLI SEX: F [facility] REPORT # PROCEDURE CODE PROCEDURE 04/14/14 [id number] TSPN3V XR THORACIC SPINE 3 VIEWS EXTORDERID [id number] ACCESSION NUMBER [id number] CHART DOCUMENT IMPRESSION: NO FRACTURE. HISTORY: LIFTING INJURY. MID BACK PAIN. UPPER BACK PAIN. THORACIC SPINE X-RAYS TECHNIQUE: AP, LATERAL AND SWIMMER'S VIEW. FINDINGS: NO COMPRESSION FRACTURE OR SUBLUXATION. DISC SPACES WELL PRESERVED. ELECTRONICALLY SIGNED BY: JESSICA LEW M.D. 04/14/2014 18:50 JESSICA LEW M.D. P #[id number] P/MA CC: Vy CEDENO, MSN us Tam Wallace Md, MD GENERAL IMAGING Final R esult documented in this encounter Visit Diagnoses Not on filedocumented in this encounter Care Teams Medical Accounts Receivable Specialist Relationship Specialty Start Date End Date Rose Marie Norton, HEATING MECHANIC PCP - General 07/06/15 10/31/16 Rose Marie Norton, HEATING MECHANIC PCP - General 03/02/15 07/05/15 Tam Gilbert MD PCP - General 12/18/14 Ashly Little MD [address] [place] [address] PCP - General 10/12/14 12/17/14 Ashly Little MD [address] [place] [address] PCP - General 06/28/14 10/11/14 Ashly Little MD [address] [place] [address] PCP - General 04/14/14 06/27/14 documented as of this encounter
--- OUTSIDE RECORDS SUMMARY | 2024-11-04 23:58 | XMS_ITS | Encounter Summary ---
Author Organization [facility] Address [address] [place] [address]. [place], [place] [address] [place] [address] Care Team Providers Care Hamper Maker Name Role Phone Rose Marie Norton ITALIAN TEACHER Primary Care Provider + Rose Marie Norton ITALIAN TEACHER Primary Care Provider + Tam Gilbert MD [...] Team (Latest Contact Info) Description 01/01/2014 Abstract [facility] Medical Group Social History Tobacco Use Types [...] on filedocumented in this encounter Care Teams Hamper Maker Relationship Specialty Start Date End Date Rose Marie Norton ITALIAN TEACHER PCP - General 07/06/15 10/31/16 Rose Marie Norton NP PCP - General 03/02/15 07/05/15 Tam Gilbert MD PCP - General 12/18/14 Iglesia Little MD [address] [place] [address] PCP - General 10/12/14 12/17/14 Iglesia Little MD [address] [place] [address] PCP - General 06/28/14 10/11/14 Iglesia Little MD [address] [place] [address] PCP - General 04/14/14 06/27/14 Iglesia Little MD [address] [place] [address] PCP - General 02/23/14 04/13/14 Iglesia Little MD [address] [place] [address] PCP - General 02/07/14 02/22/14 Iglesia Little MD [address] [place] [address] PCP - General 10/09/13 02/06/14 documented as of this encounter
--- OUTSIDE RECORDS SUMMARY | 2024-11-04 23:58 | XMS_ITS | Encounter Summary ---
Author Organization [facility] Address [address] [place] [address]. [place] [address] [place] [address] Care Team Providers Care Concrete Pipe Plant Supervisor Name Role Phone Unavailable Primary Care Provider Unavailabl e Encounter Details Date Type Department Care Team (Latest Contact Info) Description 10/07/2017 4:25 PM SUPERVISOR PAINT - 10/07/2017 11:59 PM [facility] Hospital Encounter [facility] [address] [place], [place] [address] Rose Marie Norton, JUAN JOSE [address] [place] [address] Discharge Disposition: Home or Self Care (Routine [...] XR CHEST PA+LAT Routine 10/07/2017 4:38 PM SUPERVISOR PAINT Acute bronchitis documented in this encounter Results * XR CHEST PA+LAT (10/07/2017 4:38 PM SUPERVISOR PAINT) Anatomical Region Laterality Modality Chest Radiographic Rosi ging 10/07/2017 4:51 PM SUPERVISOR PAINT Impressions 10/07/2017 4:54 PM SUPERVISOR PAINT =====IMPRESSION:===== Focal consolidation medial aspect right lower lobe. Possible infiltrate. Possible nodule. Possible summation artifact. Consider CT scan chest with contrast. Narrative 10/07/2017 4:54 PM SUPERVISOR PAINT Examination: Chest x-ray 2 view Exam date/time: [...]
--- OUTSIDE RECORDS SUMMARY | 2024-11-04 23:58 | XMS_ITS | Encounter Summary ---
Author Organization [facility] Address [address] [place] [address]. [place], [place] [address] [place] [address] Care Team Providers Care Magnetic Tape Winder Name Role Phone Rose Marie Norton ELECTRICAL PROSPECTOR Primary Care Provider + Rose Marie Norton ELECTRICAL PROSPECTOR Primary Care Provider + Md Generic Conversion [...] (Late st Contact Info) Description 10/08/2013 Abstract [facility] Medical Group Family Medicine - [place] [address] [facility] [address], [address] [place] [address] Iglesia Little MD [address] [place] [address] [address] [place] [address] Social History Tobacco Use Types Packs/Day Years [...] Comments Blood Pressure 120/78 10/08/2013 1:39 PM BEEF RIBBER Pulse 89 10/08/2013 1:39 PM BEEF RIBBER Temperature - - Respiratory Rate - - Oxygen Saturation - - Inhaled Oxygen Concentration - - Weight - - Height - - Body Mass Index - - documented in this encounter Progress Notes * Iglesia Little MD - 10/08/2013 2:15 PM CST Reason For Visit Consultation Visit Chief Complaint 1. Knee Pain went to [facility], [place] 10-06 with R knee pain, pain below [...] Oral Tablet; TAKE 1 TABLET DAILY; Therapy: (Recorded:[id number]) to 2. Omeprazole 40 MG Oral Capsule Delayed Release; TK 1 C PO D; Therapy: 22Nov2012 to (Evaluate:17Nov2013); Last Rx:22Nov2012 Allergies 1. No Known Drug Allergies Vitals 07Rhl5302 01:39PM Heart Rate 89 Systolic 120 Diastolic [...] TABLET EVERY 12 HOURS NEEDED; Therapy: to (Evaluate:75Swb4573); Last Rx:[id number] Ordered; For: Joint Pain In The Right Knee (719.46); Rx By: Iglesia Little; Dispense: 15 Days ; #:30 Tablet; Refill: 0; Print Rx 2. XR KNEE 3 VIEW RT Requested for: [id number] Ordered; For: Joint Pain In The Right Knee (719.46); Ordered By: Iglesia Little Perform: [facility] Radiology Due: [id number] Signatures Electronically signed by : Iglesia Little M.D.; Oct 08 2013 2:09PM (Author) RIBBER documented in this encounter Plan of Treatment Not on file documented as of this encounter Visit Diagnoses Not on filedocumented in this encounter Care Teams Magnetic Tape Winder Relationship Specialty Start Date End Date Rose Marie Norton NP PCP - General 07/06/15 10/31/16 Rose Marie Norton NP PCP - General 03/02/15 07/05/15 Tam [place] MD PCP - General 12/18/14 Iglesia Little MD [address] [place] [address] PCP - General 10/12/14 12/17/14 Iglesia Little MD [address] [place] [address] PCP - General 06/28/14 10/11/14 Iglesia Little MD [address] [place] [address] PCP - General 04/14/14 06/27/14 Iglesia Little MD [address] [place] [address] PCP - General 02/23/14 04/13/14 Iglesia Little MD [address] [place] [address] PCP - General 02/07/14 02/22/14 Iglesia Little MD [address] [place] [address] PCP - General 10/09/13 02/06/14 Tam [place] MD PCP - General 10/06/13 documented as of this encounter
--- OUTSIDE RECORDS SUMMARY | 2024-11-04 23:58 | XMS_ITS | Encounter Summary ---
Author Organization [facility] Address [address] [place] [address]. [place], [place] [address] [place] [address] Care Team Providers Care Tongue And Groove Machine Feeder Name Role Phone Rose Marie Norton BORING MACHINE SET UP OPERATOR JIG Primary Care Provider + Rose Marie Norton BORING MACHINE SET UP OPERATOR JIG Primary Care Provider + Md Generic Conversion [...] (Late st Contact Info) Description 09/17/2013 Abstract [facility] [address] [facility] [address] [place], [place] [phone] Camila Manzanares, CARDIOLOGY CLINICAL CONSULTANT [address] [facility] [address] [place], [place] [address] Social History Tobacco Use Types Packs/Day Years [...] finger documented in this encounter Care Teams Tongue And Groove Machine Feeder Relationship Specialty Start Date End Date Rose Marie Norton BORING MACHINE SET UP OPERATOR JIG PCP - General 07/06/15 10/31/16 Rose Marie Norton BORING MACHINE SET UP OPERATOR JIG PCP - General 03/02/15 07/05/15 Tam [place] MD PCP - General 12/18/14 Iglesia Little MD [address] [place] [address] PCP - General 10/12/14 12/17/14 Iglesia Little MD [address] [place] [address] PCP - General 06/28/14 10/11/14 Iglesia Little MD [address] [place] [address] PCP - General 04/14/14 06/27/14 Iglesia Little MD [address] [place] [address] PCP - General 02/23/14 04/13/14 Iglesia Little MD [address] [place] [address] PCP - General 02/07/14 02/22/14 Iglesia Little MD [address] [place] [address] PCP - General 10/09/13 02/06/14 , Generic Conversion, PCP - General 10/06/13 , Generic Conversion, PCP - General 09/17/1310/05 documented as of this encounter
--- OUTSIDE RECORDS SUMMARY | 2024-11-04 23:58 | XMS_ITS | Encounter Summary ---
Author Organization [facility] Address [address] [place] [address]. [place] [address] [place] [address] Care Team Providers Care Laminator Preforms Name Role Phone Unavailable Primary Care Provider Unavailabl e Reason for Visit * Reason Comments URI/ENT Symptoms chills/congestion Encounter Details Date Type Department Care Team (Late st Contact Info) Description 12/18/2018 1:40 PM PROGRAM CONSULTANT Office Visit [facility] Medical Group Family and Sports Medicine - [place] [address] [place] [phone] Hanh Rowe APNP [address] [place], [place] [phone]- URI/ENT Symptoms (chills/congestion) Social History Tobacco Use [...] Comments Blood Pressure 134/86 12/18/2018 2:02 PM PROGRAM CONSULTANT Pulse 82 12/18/2018 2:02 PM PROGRAM CONSULTANT Temperature 36.4 ??C (97.5 ??F) 12/18/2018 2:02 PM CS T Respiratory Rate 14 12/18/2018 2:02 PM PROGRAM CONSULTANT Oxygen Saturation 99% 12/18/2018 2:02 PM PROGRAM CONSULTANT Inhaled Oxygen Concentration - - Weight 109 kg (240 lb 6 oz) 12/18/2018 2:[address] Height 160 cm (5' 3 ) 12/18/2018 2:02 PM PROGRAM CONSULTANT Body Mass Index 42.58 12/18/2018 2:02 PM PROGRAM CONSULTANT documented in this encounter Patient Instructions * Patient Instructions* NIHARIKA Crawford - 12/18/2018 1:40 PM PROGRAM CONSULTANT Images from the original note were not [...] each year. Where can I learn more? [place] [employer] https://familydoctor.org/antibiotic-resistance/ Centers for Disease Control and Prevention http://www.cdc.gov/getsmart/antibiotic-use/URI/index.html NHS Choices http://www.nhs.uk/conditions/Qasdvsjjmds-hxxey-cokyeezqo/Pages/Introduction.aspx Last Reviewed Date 2018-01-27 Consumer Information Use [...] right for you. Copyright Copyright ?? 2018 [employer] and its affiliates and/or licensors. All rights reserved. Patient Education Patient Education Cough in Adults The Basics Written by the doctors and editors at [facility] What is a cough???--??A cough is an [...] humidifier in your bedroom ?? Use an wtjr-gin-icuxpze cough medicine, or suck on cough drops [...] process is complete. This topic retrieved from [employer] on: Aug 18, 2018. Topic 02635 Version 6.0 Release: 26.4.7 - C26.268 ?2018??[employer] and/or its affiliates.??All rights reserved. figure 1: [...] and around the lungs and mediastinum. Graphic 60599 Version 13.0 figure 2: Sinuses of the face This??drawing shows the sinuses of the face. Graphic 35211 Version 7.0 Consumer Information Use and Disclaimer [...] that is right for you.The use of [employer] content is governed by the [employer] Terms of Use. ??2018 [employer]. All rights reserved. Copyright ?2018??[employer] and/or its affiliates.??All rights reserved. RAM CONSULTANT RAM CONSULTANT documented in this encounter Progress Notes * [...] medications in some time. NIHARIKA CRAWFORD 12/18/2018 RAM CONSULTANT documented in this encounter Plan of [...] [place] Internal Control: VALID [facility]ID [facility]-[address], [place] NASOPHARYNGEAL SWAB / Unknown 12/18/2018 us Hanh [facility] - GENERAL ORDERAB LES Final Result -JAYDA CUELLAR, [place] [address] [place] [address], documented in this encounter Visit Diagnoses Diagnosis Flu-like symptoms- Primary Influenza with other respiratory manifestations Upper respiratory tract infection, unspecified type Cough Seasonal allergies Allergic rhinitis, cause unspecified documented in this encounter
--- OUTSIDE RECORDS SUMMARY | 2024-11-04 23:58 | XMS_ITS | Encounter Summary ---
Author Organization [facility] Address [address] [place] [address]. [place] [address] [place] [address] Care Team Providers Care Fountain Server Name Role Phone Rose Marie Norton WALLPAPER CLEANER Primary Care Provider + Rose Marie Norton WALLPAPER CLEANER Primary Care Provider + , Generic Conversion Primary Care Provider Unavailable Iglesia Little MD Primary Care Provider + Iglesia Little MD Primary Care Provider + Iglesia Little MD Primary Care Provider + Iglesia Little MD Primary Care Provider + Encounter Details Date Type Department Care Team (Late st Contact Info) Description 02/23/2014 Abstract [facility] Imaging [address] [place], [place] [phone] Iglesia Little MD [address] [place] [address] [address] [place] [address] Social History Tobacco Use Types Packs/Day Years [...] Cough documented in this encounter Care Teams Fountain Server Relationship Specialty Start Date End Date Rose Marie Norton WALLPAPER CLEANER PCP - General 07/06/15 10/31/16 Rose Marie Norton, WALLPAPER CLEANER PCP - General 03/02/15 07/05/15 Tam [place] MD PCP - General 12/18/14 Iglesia Little MD [address] [place] [address] PCP - General 10/12/14 12/17/14 Iglesia Little MD [address] [place] [address] PCP - General 06/28/14 10/11/14 Iglesia Little MD [address] [place] [address] PCP - General 04/14/14 06/27/14 Iglesia Little MD [address] [place] [address] PCP - General 02/23/14 04/13/14 documented as of this encounter
--- OUTSIDE RECORDS SUMMARY | 2024-11-04 23:58 | XMS_ITS | Encounter Summary ---
Author Organization [facility] Address [address] [place] [address]. [place], [place] [address] [place] [address] Care Team Providers Care Interpreter Deaf Name Role Phone Rose Marie Norton CIRCULATION LIBRARIAN Primary Care Provider + Rose Marie Norton CIRCULATION LIBRARIAN Primary Care Provider + Tam [place] MD Primary Care Provider Unavailable Iglesia Little MD Primary Care Provider + Iglesia Little MD Primary Care Provider + Iglesia Little MD Primary Care Provider + Iglesia Little MD Primary Care Provider + Iglesia Little MD Primary Care Provider + Encounter Details Date Type Department Care Team (Latest Contact Info) Description 02/07/2014 [facility] Social History [...] on filedocumented in this encounter Care Teams Interpreter Deaf Relationship Specialty Start Date End Date Rose Marie Norton NP PCP - General 07/06/15 10/31/16 Rose Marie Norton NP PCP - General 03/02/15 07/05/15 Tam [place] MD PCP - General 12/18/14 Iglesia Little MD [address] [place] [address] PCP - General 10/12/14 12/17/14 Iglesia Little MD [address] [place] [address] PCP - General 06/28/14 10/11/14 Iglesia Little MD [address] [place] [address] PCP - General 04/14/14 06/27/14 Iglesia Little MD [address] [place] [address] PCP - General 02/23/14 04/13/14 Iglesia Little MD [address] [place] [address] PCP - General 02/07/14 02/22/14 documented as of this encounter
--- OUTSIDE RECORDS SUMMARY | 2024-11-04 23:58 | XMS_ITS | Encounter Summary ---
Author Organization [facility] Address [address] [place] [address]. [place], [place] [address] [place] [address] Care Team Providers Care Geriatric Physician Name Role Phone Unavailable Primary Care [...]
--- OUTSIDE RECORDS SUMMARY | 2024-11-04 23:58 | XMS_ITS | Encounter Summary ---
Author Organization [facility] Address [address] [place] [address]. [place], [place] [address] [place] [address] Care Team Providers Care Panel Instrument Repairer Name Role Phone Rose Marie Norton MARINE RESOURCE ECONOMIST Primary Care Provider +3 Rose Marie Norton MARINE RESOURCE ECONOMIST Primary Care Provider +6 Tam [place] MD Primary Care Provider Unavailable Encounter Details Date Type Department Care Team (Late st Contact Info) Description 01/24/2015 Abstract [facility] Tam Wallace Md, MD Social History Tobacco [...] on filedocumented in this encounter Care Teams Panel Instrument Repairer Relationship Specialty Start Date End Date Rose Marie Norton MARINE RESOURCE ECONOMIST PCP - General 07/06/15 10/31/16 Rose Marie Norton MARINE RESOURCE ECONOMIST PCP - General 03/02/15 07/05/15 Tam [place] MD PCP - General 12/18/14 documented as of this encounter
--- OUTSIDE RECORDS SUMMARY | 2024-11-04 23:58 | XMS_ITS | Encounter Summary ---
Author Organization [facility] Address [address] [place] [address]. [place] [address] [place] [address] Care Team Providers Care Scouring Train Operator Chief Name Role Phone Unavailable Primary Care Provider Unavailabl e Encounter Details Date Type Department Care Team (Latest Contact Info) Description 12/14/2018 4:59 PM MEDICINE AIDE - 12/14/2018 11:59 PM [facility] Hospital Encounter [facility] [address] [place] [address] Rose Marie Norton, JUAN JOSE [address] [place] [address] Discharge Disposition: Home or Self Care (Routine [...] XR CHEST PA+LAT Routine 12/14/2018 5:08 PM MEDICINE AIDE Cough documented in this encounter Results * XR CHEST PA+LAT (12/14/2018 5:08 PM MEDICINE AIDE) Anatomical Region Laterality Modality Chest Radiographic Rosi ging 12/14/2018 7:34 PM MEDICINE AIDE Impressions 12/14/2018 7:35 PM MEDICINE AIDE =====IMPRESSION:===== No acute or focal infiltrates. Narrative 12/14/2018 7:35 PM MEDICINE AIDE Examination: Chest x-ray 2 view Exam date/time: [...]
--- OUTSIDE RECORDS SUMMARY | 2024-11-04 23:58 | XMS_ITS | Encounter Summary ---
Author Organization [facility] Address [address] [place] [address]. [place], [place] [address] [place] [address] Care Team Providers Care Making Machine Catcher Name Role Phone Unavailable Primary Care Provider Unavailabl e Encounter Details Date Type Department Care Team (Latest Contact Info) Description 11/16/2016 Abstract [facility] Medical Group Social History Tobacco Use [...]
--- OUTSIDE RECORDS SUMMARY | 2024-11-04 23:58 | XMS_ITS | Encounter Summary ---
Author Organization [facility] Address [address] [place] [address]. [place], [place] [address] [place] [address] Care Team Providers Care Medical Review Specialist Name Role Phone Unavailable Primary Care [...]
--- OUTSIDE RECORDS SUMMARY | 2024-11-04 23:58 | XMS_ITS | Encounter Summary ---
Author Organization [facility] Address [address] [place] [address]. [place], [place] [address] [place] [address] Care Team Providers Care Print Binding Worker Name Role Phone Unavailable Primary Care Provider Unavailabl e Encounter Details Date Type Department Care Team (Latest Contact Info) Description 10/20/2017 Abstract [facility] Medical Group Social History Tobacco [...]
--- OUTSIDE RECORDS SUMMARY | 2024-11-04 23:58 | XMS_ITS | Encounter Summary ---
Author Organization [facility] Address [address] [place] [address]. [place], [place] [address] [place] [address] Care Team Providers Care Culinary Worker Name Role Phone Rose Marie Norton POURED WALL FOREMAN Primary Care Provider + Rose Marie Norton POURED WALL FOREMAN Primary Care Provider + Md Generic [place] [...] Abstract [facility] [address] [place], [place] [phone] Camila Manzanares, DATABASE MODELER [address] [facility] [address] [place] [address] Social History Tobacco Use Types Packs/Day Years [...] Headache documented in this encounter Care Teams Culinary Worker Relationship Specialty Start Date End Date Rose Marie Norton, POURED WALL FOREMAN PCP - General 07/06/15 10/31/16 Rose Marie Norton, POURED WALL FOREMAN PCP - General 03/02/15 07/05/15 Tam Trevino MD PCP - General 12/18/14 Iglesia Little MD [address] [place] [address] PCP - General 10/12/14 12/17/14 Iglesia Little MD [address] [place] [address] PCP - General 06/28/14 10/11/14 Iglesia Little MD [address] [place] [address] PCP - General 04/14/14 06/27/14 Iglesia Little MD [address] [place] [address] PCP - General 02/23/14 04/13/14 Iglesia Little MD [address] [place] [address] PCP - General 02/07/14 02/22/14 Iglesia Little MD [address] [place] [address] PCP - General 10/09/13 02/06/14 , Generic Conversion, PCP - General 10/06/13 , Generic Conversion, MD PCP - General 09/17/1310/05 , Generic Conversion, PCP - General 07/06/1309/16 , Generic Conversion, PCP - General 06/20/13 documented as of this encounter
--- OUTSIDE RECORDS SUMMARY | 2024-11-04 23:58 | XMS_ITS | Encounter Summary ---
Author Organization [facility] Address [address] [place] [address]. [place], [place] [address] [place] [address] Care Team Providers Care Wafer Fab Technician Name Role Phone Unavailable Primary Care Provider Unavailabl e Encounter Details Date Type Department Care Team (Latest Contact Info) Description 03/06/2018 Abstract [facility] Medical Group Social History Tobacco Use [...]
--- OUTSIDE RECORDS SUMMARY | 2024-11-04 23:58 | XMS_ITS | Encounter Summary ---
Author Organization [facility] Address [address] [place] [address]. [place], [place] [address] [place] [address] Care Team Providers Care Manager Community Development Name Role Phone Rose Marie Norton DENTAL BILLER Primary Care Provider + Rose Marie Norton [...] (Late st Contact Info) Description 02/18/2014 Abstract [facility] Family Medicine - [place] [address] [facility], [address] [place] [address] Rose Marie Norton, DENTAL BILLER [address] [place] [address] Social History Tobacco Use Types Packs/Day Years [...] encounter Progress Notes * Rose Marie Norton DENTAL BILLER - 02/18/2014 11:00 AM CDT Reason For [...] Cough; YASSINE = N; Verified Transmission to [facility]2713 2. Ciclodan 8 % External Solution; [...] onychomycosis; YASSINE = N; Verified Transmission to [facility]2713; Last Updated By: Melissa Lema; 11/21/2013 10:14:11 AM 4. Lisinopril-Hydrochlorothiazide 10-12.5 MG Oral Tablet; TAKE 1 TABLET DAILY; Therapy: (Recorded:[id number]) to Recorded Dispense: 90 Days ; #:90 Tablet; Refill: 0; For: Hypertension; YASSINE = N; Record; Last Updated By: Lori Beltran; 06/05/2012 11:43:03 AM 5. Naproxen 500 MG Oral Tablet; TAKE 1 TABLET EVERY 12 HOURS NEEDED; Therapy: [id number] to (Evaluate:00Yvm1072); Last Rx:08Oct2013 Ordered Rx By: Ashly Little; [...] Cough; YASSINE = N; Verified Transmission to [facility]4064 7. Omeprazole 40 MG Oral Capsule Delayed [...] For: Acute bronchitis; YASSINE = N; Sent To:[facility]1534 2. Start: ProAir HFA 108 (90 Base) MCG/ACT Inhalation Aerosol Solution; Take 2 puffs one-minute apart every 4 or more hours as needed for wheeze Rx By: Rose Marie Norton; Dispense: 0 Days ; #:1 X 8.5 GM Inhaler; Refill: 0; For: Acute bronchitis; YASSINE = N; Sent To: [facility]2584 3. Avoid exposure to cigarette smoke. Status: Complete Done: [id number] Ordered; For: Acute bronchitis; Ordered By: Rose Marie Norton 4. Drink plenty of fluids. Status: Complete Done: 71Hin2067 Ordered; For: Acute bronchitis; Ordered By: Rose Marie Norton 5. Use a cool mist humidifier in the room. Status: Complete Done: [id number] Ordered; For: Acute bronchitis; Ordered By: Rose Marie Norton Signatures Electronically signed by : Rose Marie Norton NP; Feb 18 2014 11:21AM MECHANICAL REPAIR WORKER (Author) Electronically signed by : Ashly Little M.D.; Feb 19 2014 2:39PM MECHANICAL REPAIR WORKER (Review) documented in this encounter Plan of [...] ORDERING MD: ASHLY LITTLE MD ?? ACCT: [id number] ?? ADMIT/SERVICE DATE: 02/23/14 DISCHARGE DATE: ?? : 1975 PT TYPE: REG CLI ?? SEX: F ORD SITE: [facility] ? STUDY DATE REPORT # PROCEDURE CODE PROCEDURE ?? 02/23/14 [id number] CXR2V XR CHEST 2 VIEW ? EXTORDERID ? [id number] ? ACCESSION NUMBER ?? [id number] ?CHART DOCUMENT ? IMPRESSION: ? NO ACUTE [...] MADISON M.D. ? D: ??02/23/2014 ??3:51 P ??#[id number] ?? T: ??02/23/2014 ??6:22 P/MA ? CC: ?ASHLY LITTLE M.D. ? Procedure Note Tam [place] MD - 08/31/2018 [facility] CERVANTES ORDERING MD: ASHLY LITTLE MD ACCT: [id number] ADMIT/SERVICE DATE: 02/23/14 DISCHARGE DATE: : 1975 PT TYPE: REG CLI SEX: F ORD SITE: [facility] STUDY DATE REPORT # PROCEDURE CODE PROCEDURE 02/23/14 [id number] CXR2V XR CHEST 2 VIEW EXTORDERID [id number] ACCESSION NUMBER [id number] CHART DOCUMENT IMPRESSION: NO ACUTE PROCESS IS [...] M.D. 02/23/2014 19:00 JESSEE MADISON M.D. P #[id number] P/CALEB CC: ASHLY LITTLE M.D. Ashly Little MD GENERAL IMAGING Final Result documented in this encounter Visit Diagnoses Not on filedocumented in this encounter Care Teams Manager Community Development Relationship Specialty Start Date End Date Rose Marie Norton NP PCP - General 8/30/15 12/25/16 Rose Marie Norton NP PCP - General 03/02/15 07/05/15 Tam [place] MD PCP - General 12/18/14 Ashly Little MD [address] [place] [address] PCP - General 10/12/14 12/17/14 Ashly Little MD [address] [place] [address] PCP - General 06/28/14 10/11/14 Ashly Little MD [address] [place] [address] PCP - General 04/14/14 06/27/14 Ashly Little MD [address] [place] [address] PCP - General 02/23/14 04/13/14 Ashly Little MD [address] [place] [address] PCP - General 02/07/14 02/22/14 documented as of this encounter
--- OUTSIDE RECORDS SUMMARY | 2024-11-04 23:58 | XMS_ITS | Encounter Summary ---
Author Organization [facility] Address [address] [place] [address]. [place], [place] [address] [place] [address] Care Team Providers Care Certified Medical Coding Specialist Name Role Phone Rose Marie Norton SLACKLINE OPERATOR Primary Care Provider [phone] Encounter Details Date Type Department Care Team (Late st Contact Info) Description 07/06/2015 Abstract [facility] [place] [address] Rose Marie Norton NP [address] [place] [address] Social History Tobacco Use Types Packs/Day Years [...] hypertension documented in this encounter Care Teams Certified Medical Coding Specialist Relationship Specialty Start Date End Date Rose Marie Norton NP PCP - General 07/06/15 10/31/16 documented as of this encounter
--- OUTSIDE RECORDS SUMMARY | 2024-11-04 23:58 | XMS_ITS | Encounter Summary ---
Author Organization [facility] Address [address] [place] [address]. [place], [place] [address] [place] [address] Care Team Providers Care Ham Passer Name Role Phone Rose Marie Norton BASTING CLEANER Primary Care Provider +[phone] Rose Marie Norton BASTING CLEANER Primary Care Provider +[phone] Encounter Details Date Type Department Care Team (Late st Contact Info) Description 03/02/[address] [facility] [address] [place], [place] [id number] Robbin De León, APNP [address] [facility] [address] [place], [place] [address] Social History Tobacco Use Types Packs/Day Years [...] Headache documented in this encounter Care Teams Ham Passer Relationship Specialty Start Date End Date Rose Marie Norton NP PCP - General 07/06/15 10/31/16 Rose Marie Norton NP PCP - General 03/02/15 07/05/15 documented as of this encounter
--- OUTSIDE RECORDS SUMMARY | 2024-11-04 23:58 | XMS_ITS | Encounter Summary ---
Author Organization [facility] Address [address] [place] [address]. [place] [address] [place] [address] Care Team Providers Care Camera Supervisor Name Role Phone Unavailable Primary Care Provider Unavailabl e Encounter Details Date Type Department Care Team (Latest Contact Info) Description 06/23/2017 Abstract [facility] Medical Group Rose Marie Norton, SURVEILLANCE SUPERVISOR [address] [place] [address] Social History Tobacco Use Types Packs/Day [...]
--- OUTSIDE RECORDS SUMMARY | 2024-11-04 23:58 | XMS_ITS | Encounter Summary ---
Author Organization [facility] Address [address] [place] [address]. [place], [place] [address] [place] [address] Care Team Providers Care Inserting Press Operator Name Role Phone Rose Marie Norton ELECTRIC METER SETTER Primary Care Provider + Rose Marie Norton ELECTRIC METER SETTER Primary Care Provider + Tam Gilbert MD Primary Care Provider Unavailable Iglesia Little MD Primary Care Provider + Iglesia Little MD Primary Care Provider + Iglesia Little MD Primary Care Provider + Encounter Details Date Type Department Care Team (Latest Contact Info) Description 04/16/2014 Abstract [facility] Medical [facility] Social History Tobacco Use Types [...] on filedocumented in this encounter Care Teams Inserting Press Operator Relationship Specialty Start Date End Date Rose Marie Norton NP PCP - General 07/06/15 10/31/16 Rose Marie Norton ELECTRIC METER SETTER PCP - General 03/02/15 07/05/15 Tam Gilbert MD PCP - General 12/18/14 Iglesia Little MD [address] [facility] [address] PCP - General 10/12/14 12/17/14 Iglesia Little MD [address] [place] [address] 693- PCP - General 06/28/14 10/11/14 Iglesia Little MD [address] [facility], [place] [address] 212- PCP - General 04/14/14 06/27/14 documented as of this encounter
--- OUTSIDE RECORDS SUMMARY | 2024-11-04 23:58 | XMS_ITS | Encounter Summary ---
Author Organization [facility] Address [address] [place] [address]. [place], [place] [address] [place] [address] Care Team Providers Care Rip Machine Operator Name Role Phone Unavailable Primary Care Provider Unavailabl e Encounter Details Date Type Department Care Team (Latest Contact Info) Description 10/25/2017 Abstract [facility] Medical Group Social History Tobacco [...]
--- OUTSIDE RECORDS SUMMARY | 2024-11-04 23:58 | XMS_ITS | Encounter Summary ---
Author Organization [facility] Address [address] [place] [address]. [place], [place] [address] [place] [address] Care Team Providers Care General Assignment Reporter Name Role Phone Rose Marie Norton ENDOCRINOLOGY SPECIALIST Primary Care Provider + Rose Marie Norton ENDOCRINOLOGY SPECIALIST Primary Care Provider + , Generic Conversion MD Primary Care Provider Unavailable Iglesia Little MD Primary Care Provider + Iglesia iLttle MD Primary Care Provider + Iglesia Little MD Primary Care Provider + Iglesia Little MD Primary Care Provider + Iglesia Little MD Primary Care Provider + Encounter Details Date Type Department Care Team (Late st Contact Info) Description 02/07/[address] [address] [facility] [place], [place] [id number] Camila Manzanares, DIRECTOR OF BILLING [address] [facility] [address] [place], [place] [address] Social History Tobacco Use Types Packs/Day Years [...] Scabies documented in this encounter Care Teams General Assignment Reporter Relationship Specialty Start Date End Date Rose Marie Norton, ENDOCRINOLOGY SPECIALIST PCP - General 07/06/15 10/31/16 Rose Marie Norton, ENDOCRINOLOGY SPECIALIST PCP - General 03/02/15 07/05/15 Tam Gilbert MD PCP - General 12/18/14 Iglesia Little MD [address] [place] [address] PCP - General 10/12/14 12/17/14 Iglesia Little MD [address] [place] [address] PCP - General 06/28/14 10/11/14 Iglesia Little MD [address] [place] [address] PCP - General 04/14/14 06/27/14 Iglesia Little MD [address] [place] [address] PCP - General 02/23/14 04/13/14 Iglesia Little MD [address] [place] [address] PCP - General 02/07/14 02/22/14 documented as of this encounter
--- OUTSIDE RECORDS SUMMARY | 2024-11-04 23:58 | XMS_ITS | Encounter Summary ---
Author Organization [facility] Address [address] [place] [address]. [place], [place] [address] [place] [address] Care Team Providers Care Supervisor Drying And Softening Name Role Phone Rose Marie Norton LOGGER DRIVING HORSES Primary Care Provider [phone] Encounter Details Date Type Department Care Team (Latest Contact Info) Description 02/24/2016 Abstract [facility] Medical Group [...] filedocumented in this encounter Care Teams Supervisor Drying And Softening Relationship Specialty Start Date End Date Rose Marie Norton, LOGGER DRIVING HORSES PCP - General 07/06/15 10/31/16 documented as of this encounter
--- OUTSIDE RECORDS SUMMARY | 2024-11-04 23:58 | XMS_ITS | Encounter Summary ---
Author Organization [facility] Address [address] [place] [address]. [place], [place] [address] [place] [address] Care Team Providers Care Wall Worker Name Role Phone Rose Marie Norton COUNTY TAX ASSESSOR Primary Care Provider + Rose Marie Norton COUNTY TAX ASSESSOR Primary Care Provider + , Generic Conversion [...] (Late st Contact Info) Description 10/15/2013 Abstract [facility] Medical Group Family Medicine - [place], [address] [place] [address] Iglesia Little MD [address] [place] [address] 200 [place] [address] Social History Tobacco Use Types Packs/Day Years [...] Comments Blood Pressure 140/82 10/15/2013 3:15 PM PEOPLESOFT TALEO MANAGER Pulse 89 10/15/2013 3:15 PM PEOPLESOFT TALEO MANAGER Temperature - - Respiratory Rate - - [...] Oral Tablet; TAKE 1 TABLET DAILY; Therapy: (Recorded:26Lpa0095) to 2. Naproxen 500 MG Oral Tablet; TAKE 1 TABLET EVERY 12 HOURS NEEDED; Therapy: 67Vps3420 to (Evaluate:97Jwk4915); Last Rx:14Zaj2299 3. Omeprazole 40 MG Oral Capsule Delayed Release; TK 1 C PO D; Therapy: 22Nov2012 to (Evaluate:17Nov2013); Last Rx:22Nov2012 Allergies 1. No Known Drug Allergies Vitals 20Jlf7007 03:15PM Heart Rate 89 Systolic 140 Diastolic [...] onychomycosis. Results/Data XR KNEE 3 VIEW RT 19Cxm3881 11:49AM Iglesia Little Test Name Result Flag Reference TAMMY CERVANTES ORDERING MD: IGLESIA LITTLE MD ACCT: [id number] : 1975 PT TYPE: REG CLI SEX: F ORD SITE: [facility] IMAGING STUDY DATE REPORT # PROCEDURE CODE PROCEDURE 10/09/13 [id number] MTID2SW XR KNEE 3 VIEW RT EXTORDERID [id number] ACCESSION NUMBER [id number] CHART DOCUMENT IMPRESSION: JOINT EFFUSION AND PREPATELLAR [...] M.D. 10/09/2013 14:55 DEEPTHI ALDRICH M.D. P #[id number] P/MA CC: IGLESIA LITTLE M.D. Radiology image is available. Click on Image Link above. Assessment 1. Joint Pain In The Right Knee 719.46 2. Onychomycosis 110.1 Plan 1. Ciclodan 8 % External Solution; APPLY AND GENTLY MASSAGE INTO AFFECTED AREA(S) TWICE DAILY; Therapy: 61Uqw8644 to (Last Rx:65Dtj1299) Ordered; For: Onychomycosis (110.1); Rx By: Iglesia Little; Dispense: 0 Days ; #:1 X 6.6 ML Bottle; Refill: 3; Print Rx Discussion/Summary please give knee pain home program please give a statement for work with lifting and tranfering weight up to 20 lbs for 1 week. Signatures Electronically signed by : Iglesia Little M.D.; Oct 15 2013 3:32PM (Author) LESOFT TALEO MANAGER documented in this encounter Plan of Treatment Not on file documented as of this encounter Visit Diagnoses Not on filedocumented in this encounter Care Teams Wall Worker Relationship Specialty Start Date End Date Rose Marie Norton NP PCP - General 07/06/15 10/31/16 Rose Marie Norton NP PCP - General 03/02/15 07/05/15 Tam Gilbert MD PCP - General 12/18/14 Iglesia iLttle MD [address] [facility] [address] [place] [address] PCP - General 10/12/14 12/17/14 Iglesia Little MD [address] [place] [address] PCP - General 06/28/14 10/11/14 Iglesia Little MD [address], [place] [address] PCP - General 04/14/14 06/27/14 Iglesia Little MD [address] [place] [address] [place] [address] PCP - General 02/23/14 04/13/14 Iglesia Little MD [address] [place] [address] [place], [place] [address] PCP - General 02/07/14 02/22/14 Iglesia Little MD [address] [place] [address] [place] [address] [phone] PCP - General 10/09/13 02/06/14 documented as of this encounter
--- OUTSIDE RECORDS SUMMARY | 2024-11-04 23:58 | XMS_ITS | Encounter Summary ---
Author Organization [facility] Address [address] [place] [address]. [place], [place] [address] [place] [address] Care Team Providers Care Team Facilitator Name Role Phone Unavailable Primary Care Provider Unavailabl e Encounter Details Date Type Department Care Team (Latest Contact Info) Description 11/15/2016 Abstract [facility] Medical Group Social History Tobacco Use [...]
--- OUTSIDE RECORDS SUMMARY | 2024-11-04 23:58 | XMS_ITS | Encounter Summary ---
Author Organization [facility] Address [address] [place] [address]. [place], [place] [address] [place] [address] Care Team Providers Care Digital Media Designer Name Role Phone Unavailable Primary Care Provider Unavailabl e Encounter Details Date Type Department Care Team (Latest Contact Info) Description 10/07/2017 Abstract [facility] Medical Group Sage Gastelum MD [...] pm, 10/07/17 Verified Results XR CHEST PA+LAT [id number] 04:30PM Sage Gastelum Test Name Result Flag [...] XR CHEST PA+LAT Routine 10/07/2017 4:30 PM EMERGENCY MEDICINE documented in this encounter Results * XR CHEST PA+LAT (10/07/2017 4:30 PM EMERGENCY MEDICINE) Anatomical Region Laterality Modality Chest Radiographic Rosi ging 10/07/2017 4:30 PM EMERGENCY MEDICINE 10/07/2017 4:30 PM EMERGENCY MEDICINE Narrative 10/07/2017 4:55 PM EMERGENCY MEDICINE Examination: Chest x-ray 2 view Exam date/time: [...]
--- OUTSIDE RECORDS SUMMARY | 2024-11-04 23:58 | XMS_ITS | Encounter Summary ---
Author Organization [facility] Address [address] [place] [address]. [place], [place] [address] [place] [address] Care Team Providers Care Circulation Assistant Name Role Phone Rose Marie Norton ACID PAINTER Primary Care Provider + Rose Marie Norton ACID PAINTER Primary Care Provider + , Generic Conversion MD Primary Care Provider Unavailable Iglesia Little MD Primary Care Provider + Iglesia Little MD Primary Care Provider + Iglesia Little MD Primary Care Provider + Iglesia Little MD Primary Care Provider + Encounter Details Date Type Department Care Team (Latest Contact Info) Description 02/27/2014 Abstract [facility] Medical Group [...] CERVANTES ORDERING MD: IGLESIA LITTLE MD ACCT: [id number] ADMIT/SERVICE DATE: 02/23/14 DISCHARGE DATE: : 1975 PT TYPE: REG CLI SEX: F ORD SITE: [facility] OUTPATNT IMAGING STUDY DATE REPORT # PROCEDURE CODE PROCEDURE 02/23/14 [id number] CXR2V XR CHEST 2 VIEW EXTORDERID [id number] ACCESSION NUMBER [id number] CHART DOCUMENT IMPRESSION: NO ACUTE PROCESS IS [...] M.D. 02/23/2014 19:00 JESSEE [facility] M.D. P #[id number] P/MA CC: IGLESIA LITTLE M.D. Discussion/Summary Negative chest xray documented in this encounter Plan of Treatment Not on file documented as of this encounter Visit Diagnoses Not on filedocumented in this encounter Care Teams Circulation Assistant Relationship Specialty Start Date End Date Rose Marie Norton NP PCP - General 07/06/15 10/31/16 Rose Marie Norton NP PCP - General 03/02/15 07/05/15 Tam Gilbert MD PCP - General 12/18/14 Iglesia Little MD [address] [place] [address] PCP - General 10/12/14 12/17/14 Iglesia Little MD [address] [place] [address] PCP - General 06/28/14 10/11/14 Iglesia Little MD [address] [place] [address] PCP - General 04/14/14 06/27/14 Iglesia Little MD [address] [place], [place] [address] 830- PCP - General 02/23/14 04/13/14 documented as of this encounter
--- OUTSIDE RECORDS SUMMARY | 2024-11-04 23:58 | XMS_ITS | Encounter Summary ---
Author Organization [facility] Address [address] [place] [address]. [place], [place] [address] [place] [address] Care Team Providers Care Military Professional Name Role Phone Rose Marie Norton LITHOGRAPHIC STRIPPER Primary Care Provider + Rose Marie Norton LITHOGRAPHIC STRIPPER Primary Care Provider + Md Generic [place] [...] (Late st Contact Info) Description 12/10/2013 Abstract [facility] Medical Group Family Medicine - [place] [address] [facility], [address] [place] [address] Rose Marie Norton, LITHOGRAPHIC STRIPPER [address] [place] [address] Social History Tobacco Use Types Packs/Day Years [...] Comments Blood Pressure 120/90 12/10/2013 3:33 PM SOCIAL WORK INSTRUCTOR Pulse 79 12/10/2013 3:33 PM SOCIAL WORK INSTRUCTOR Temperature - - Respiratory Rate - - Oxygen Saturation - - Inhaled Oxygen Concentration - - Weight 110.7 kg (244 lb) 12/10/2013 3:33 PM SOCIAL WORK INSTRUCTOR Height 160 cm (5' 3 ) 12/10/2013 3:33 PM SOCIAL WORK INSTRUCTOR Body Mass Index 43.22 12/10/2013 3:33 PM SOCIAL WORK INSTRUCTOR documented in this encounter Progress Notes * Rose Marie Norton LITHOGRAPHIC STRIPPER - 12/10/2013 3:30 PM CST Message Message: [...] Oral Tablet; TAKE 1 TABLET DAILY; Therapy: (Recorded:54Jyi2712) to 4. Nasonex 50 MCG/ACT Nasal Suspension; [...] Call if: The itching is worse. Done: 58Yec5280 7. Call if: The rash is not better in 1 week. Done: 47Ijs5571 8. Call if: There is redness, swelling, or pain in the area. Done: 30Eiz2276 9. Call if: Your rash is worse. Done: 97Ahw3127 10. Good handwashing is one of the best ways to control the spread of germs. Done: 30Itq0735 11. Keeping the affected area dry will help heal your skin. Done: 06Jwn5462 12. The following may help your itching and prevent it from returning. Done: 92Bxl7657 13. Wash all bedding and clothing in hot water for at least 10 minutes. Done: 56Mli3396 14. Wear loose cotton clothing. Done: 05Vir4951 Signatures Electronically signed by : Rose Marie Norton NP; Dec 13 2013 11:14AM (Author) AL WORK INSTRUCTOR * Rose Marie Norton NP - 12/10/2013 [...] #:6 Tablet; Refill: 0; Verified Transmission to [facility]2713 2. Ciclodan 8 % External Solution; APPLY AND GENTLY MASSAGE INTO AFFECTED AREA(S) TWICE DAILY; Therapy: 15Oct2013 to (Last Rx:15Oct2013) Requested for: 84Gnw1303 Ordered; For: Onychomycosis (110.1); Rx By: Iglesia Little; Dispense: 0 Days ; #:1 X 6.6 ML Bottle; Refill: 3; Verified Transmission to [facility] #2713; Last Updated By: Lori Beltran 3. Fluticasone Propionate 50 MCG/ACT Nasal Suspension; USE 2 SPRAYS IN EACH NOSTRIL ONCE DAILY; Therapy: 21Nov2013 to (Last Rx:21Nov2013) Requested for: 21Nov2013 Ordered; For: Cough (786.2), Onychomycosis (110.1); Rx By: Iglesia Little; Dispense: 0 Days ; #:2 X 16 GM Bottle; Refill: 3; Verified Transmission to [facility] #2713; Last Updated By: Melissa Lema 4. Lisinopril-Hydrochlorothiazide 10-12.5 MG Oral Tablet; TAKE 1 TABLET DAILY; Therapy: (Recorded:51Cfw2050) to Recorded; For: Hypertension (401.9); Dispense: 90 Days ; #:90 Tablet; Refill: 0; Record; Last Updated By: Lori Beltran 5. Naproxen 500 MG Oral Tablet; TAKE 1 TABLET EVERY 12 HOURS NEEDED; Therapy: 08Oct2013 to (Evaluate:40Pwe0303); Last Rx:08Oct2013 Ordered; For: Joint Pain In [...] #:1 GM; Refill: 5; Verified Transmission to [facility] #2588 7. Omeprazole 40 MG Oral Capsule Delayed Release; TK 1 C PO D; Therapy: 22Nov2012 to (Evaluate:17Nov2013); Last Rx:22Nov2012 Ordered; For: Esophageal Reflux (530.81); Rx By: Iglesia Little; Dispense: 90 Days ; #:1 X 90 EA Bottle; Refill: 3; Print Rx Allergies 1. No Known Drug Allergies No Known Drug Allergies Vitals Vital Signs [Data Includes: Current Encounter] 36Pnv3483 03:33PM Heart Rate 79 Respiration 16 Systolic [...] HOURS NEEDED; Therapy: 08Oct2013 to (Evaluate:23Oct2013); Last Rx:68Dub4509 Ordered; For: Joint Pain In The Right Knee (719.46); Rx By: Iglesia Little; Dispense: 15 Days ; #:30 Tablet; Refill: 0; Print Rx; Last Updated By: Rose Marie Norton 3. Ciclodan 8 % External Solution; APPLY AND GENTLY MASSAGE INTO AFFECTED AREA(S) TWICE DAILY; Therapy: 72Bof2909 to (Last Rx:30Bad5965) Requested for: 84Ibz7621 Ordered; For: Onychomycosis (110.1); Rx By: Rose Marie Norton; Dispense: 0 Days ; #:1 X 6.6 ML Bottle; Refill: 3; Record 4. Fluconazole 150 MG Oral Tablet; TAKE 1 TABLET DAILY DIRECTED; Therapy: 97Tlc4760 to (Complete:07Jan2014) Requested for: 71Ljb4629; Last Rx:83Hcb4865; Edited Ordered; For: Tinea Cruris (110.3); Rx By: Rose Marie Norton; Dispense: 14 Days ; #:14 Tablet; Refill: 1; Verified Transmission to [facility] #5261 5. Call if: The itching is worse. Done: 92Lap1713 Ordered; For: Tinea Cruris (110.3); Ordered By: Rose Marie Norton 6. Call if: The rash is not better in 1 week. Done: 70Otn9849 Ordered; For: Tinea Cruris (110.3); Ordered By: Rose Marie Norton 7. Call if: There is redness, swelling, or pain in the area. Done: 67Mvo2989 Ordered; For: Tinea Cruris (110.3); Ordered By: Rose Marie Norton 8. Call if: Your rash is worse. Done: 82Vqp0145 Ordered; For: Tinea Cruris (110.3); Ordered By: Rose Marie Norton 9. Good handwashing is one of the best ways to control the spread of germs. Done: 01Abn9190 Ordered; For: Tinea Cruris (110.3); Ordered By: Rose Marie Norton 10. Keeping the affected area dry will help heal your skin. Done: 70Htf6145 Ordered; For: Tinea Cruris (110.3); Ordered By: Rose Marie Norton 11. The following may help your itching and prevent it from returning. Done: 42Htg4318 Ordered; For: Tinea Cruris (110.3); Ordered By: Rose Marie Norton 12. Wash all bedding and clothing in hot water for at least 10 minutes. Done: 90Abj1663 Ordered; For: Tinea Cruris (110.3); Ordered By: Rose Marie Norton 13. Wear loose cotton clothing. Done: 59Lbl7069 Ordered; For: Tinea Cruris (110.3); Ordered By: Rose Marie Norton Signatures Electronically signed by : Rose Marie Norton NP; Dec 10 2013 4:01PM (Author) Electronically signed by : Iglesia Little M.D.; Dec 14 2013 12:44PM (Review) AL WORK INSTRUCTOR documented in this encounter Plan of Treatment Not on file documented as of this encounter Visit Diagnoses Not on filedocumented in this encounter Care Teams Military Professional Relationship Specialty Start Date End Date Rose Marie Norton, LITHOGRAPHIC STRIPPER PCP - General 07/06/15 10/31/16 Rose Marie Norton, LITHOGRAPHIC STRIPPER PCP - General 03/02/15 07/05/15 Tam Trevino MD PCP - General 12/18/14 Iglesia Little MD [address] [place] [address] PCP - General 10/12/14 12/17/14 Iglesia Little MD [address] [place] [address] PCP - General 06/28/14 10/11/14 Iglesia Little MD [address] [place] [address] PCP - General 04/14/14 06/27/14 Iglesia Little MD [address] [place] [address] PCP - General 02/23/14 04/13/14 Iglesia Little MD [address] [place] [address] PCP - General 02/07/14 02/22/14 Iglesia Little MD [address] [address] PCP - General 10/09/13 02/06/14 documented as of this encounter
--- OUTSIDE RECORDS SUMMARY | 2024-11-04 23:58 | XMS_ITS | Encounter Summary ---
Author Organization [facility] Address [address] [place] [address]. [place], [place] [address] [place] [address] Care Team Providers Care Music Therapy Specialist Name Role Phone Unavailable Primary Care [...]
--- OUTSIDE RECORDS SUMMARY | 2024-11-04 23:58 | XMS_ITS | Encounter Summary ---
Author Organization [facility] Address [address] [place] [address]. [place], [place] [address] [place] [address] Care Team Providers Care Engraver Hand Soft Metals Name Role Phone Rose Marie Norton BASKET GRADER Primary Care Provider + Rose Marie Norton BASKET GRADER Primary Care Provider + Tam Gilbert MD [...] Team (Latest Contact Info) Description 04/04/2013 Abstract [facility] Medical Group Social History Tobacco Use Types [...] POTENTIAL INTOXICATION ??>100 ? TESTING PERFORMED AT [facility], A MEMBER OF THE [facility]. 04/04/2013 9:30 AM CDT 04/04/2013 9:30 AM CDT Narrative [facility] TO EPIC CONVERSION - 04/04/2013 3:35 PM CDT Result Communication: No patient communication needed at this time Iglesia Little MD LABORATORY Final Result [facility] CONVERSION documented in this encounter Visit Diagnoses Not on filedocumented in this encounter Care Teams Engraver Hand Soft Metals Relationship Specialty Start Date End Date Rose Marie Norton NP PCP - General 07/06/15 10/31/16 Rose Marie Norton NP PCP - General 03/02/15 07/05/15 Tam Gilbert MD PCP - General 12/18/14 Iglesia Little MD [address] [place] [address] [address] PCP - General 10/12/14 12/17/14 Iglesia Little MD [address] [place] [address] PCP - General 06/28/14 10/11/14 Iglesia Little MD [address] [place] [address] PCP - General 04/14/14 06/27/14 Iglesia Little MD [address] [place] [address] PCP - General 02/23/14 04/13/14 Iglesia Little MD [address] [place] [address] PCP - General 02/07/14 02/22/14 Iglesia Little MD [address] [place] [address] PCP - General 10/09/13 02/06/14 , Generic Conversion, PCP - General 10/06/13 , Generic Conversion, PCP - General 09/17/1310/05 , Generic Conversion, PCP - General 07/06/1309/16 , Generic Conversion, PCP - General 06/20/13 Iglesia Little MD [address] [place] [address] PCP - General 04/04/13 06/19/13 documented as of this encounter
--- OUTSIDE RECORDS SUMMARY | 2024-11-04 23:58 | XMS_ITS | Encounter Summary ---
Author Organization [facility] Address [facility] [place] [address] [place] [address] Care Team Providers Care Drywall Finisher Name Role Phone Unavailable Primary Care Provider Unavailabl e Encounter Details Date Type Department Care Team (Late st Contact Info) Description 10/12/2017 Abstract [facility] Family Medicine - [place] [address] [facility], [address] [place] [address] Rose Marie Norton NP [address] [place] [address] Social History Tobacco Use Types Packs/Day Years [...] Comments Blood Pressure 120/78 10/12/2017 12:06 PM PILLOWCASE SEWER Pulse 74 10/12/2017 12:06 PM PILLOWCASE SEWER Temperature - - Respiratory Rate - - Oxygen Saturation - - Inhaled Oxygen Concentration - - Weight 114.6 kg (252 lb 9.6 oz) 017 12:06 PM PILLOWCASE SEWER Height 160 cm (5' 3 ) 10/12/2017 12:06 PM PILLOWCASE SEWER Body Mass Index 44.75 10/12/2017 12:06 PM PILLOWCASE SEWER documented in this encounter Progress Notes * [...] TABLET A DAY FOR 4 DAYS; Therapy: 20Who7266 to (Last Rx:62Fyl5786) Requested for: 76Wwq9014 Ordered Rx By: Sage Gastelum; Dispense: 0 Days ; #:6 Tablet; Refill: 0; For: Bronchitis, acute; YASSINE = N; Verified Transmission to [facility]; Last Updated By: Craft Coffee; 10/07/20173:59:47 PM 2. Fluconazole 150 MG Oral Tablet; take one tablet today then repeat in 2 days; Therapy: 23Jux0503 to (Evaluate:27Rfi5283) Requested for: 54Cmq3529; Last Rx:[id number] Ordered Rx By: Rose Marie Norton; Dispense: 2 Days ; #:2 Tablet; Refill: 0; For: Catalina vaginitis; YASSINE = N; Verified Transmission to [employer] [facility]; Last Updated By: Craft Coffee; 05/30/2017 3:25:07 PM 3. Ibuprofen 800 MG Oral Tablet; TAKE 1 TABLET EVERY 8 HOURS WITH FOOD; Therapy: 14Nov2015 to (Evaluate:12Feb2016) Requested for: 14Nov2015; Last Rx:14Nov2015 Ordered Rx By: Rose Marie Norton; Dispense: 30 Days ; #:90 Tablet; Refill: 2; For: Back pain; YASSINE = N; Verified Transmission to [facility]; Last Updated By: Craft Coffee; 11/14/2015 3:00:55 PM 4. MethylPREDNISolone 4 MG Oral Tablet Therapy Pack; Take as directed on packaging; Therapy: 66Few0007 to (Last Rx:08Wjr4209) Requested for: 84Sde0720 Ordered Rx By: Sage Gastelum; Dispense: 0 Days ; #:1 X 21 Tablet Pack; Refill: 0; For: Bronchitis, acute;YASSINE = N; Verified Transmission to [facility] [facility]; Last Updated By: Craft Coffee;10/07/2017 3:59:48 PM 5. ProAir HFA 108 (90 Base) MCG/ACT Inhalation Aerosol Solution; INHALE 2 PUFFS EVERY 4 HOURS NEEDED; Therapy: 22Vin1844 to (Last Rx:45Zch7397) Requested for: 83Mar6674 Ordered Rx By: Sage Gastelum; Dispense: 0 Days ; #:1 X 8.5 GM Inhaler; Refill: 0; For: Bronchitis, acute;YASSINE = N; Verified Transmission to [facility] [address]; Msg to Pharmacy: Pharmacist: Lola swanson. You may substitute another brand of albuterol HFA inhaler (i.e. Proventil HFA, Ventolin HFA) for the ProAir HFA inhaler if needed for insurance purposes.; Last Updated By: Craft Coffee; 10/07/2017 3:59:46 PM 6. Triamterene-HCTZ 37.5-25 MG Oral Capsule; TAKE ONE CAPSULE BY MOUTH EVERY DAY; Therapy: 01Uvb4588 to (Evaluate:70Ihe5253) Requested for: 15Yvm8922; Last Rx:27Zzj0047 Ordered Rx By: Roes Marie Norton; Dispense: 30 Days ; #:30 Capsule; Refill: 5; For: Hypertension; YASSINE = N; VerifiedTransmission to [facility]; Last Updated By: Craft Coffee; 03/14/2017 9:55:22 AM Allergies 1. No Known [...] Avoid exposure to cigarette smoke.; Status:Complete; Done: 75Mfk1689 12:39PM Ordered; For:Pneumonia; Ordered By:Rose Marie Norton; 2. Seek Immediate Medical Attention if: You are coughing up blood or pink colored phlegm.; Status:Complete; Done: 71Sya5783 12:39PM Ordered; For:Pneumonia; Ordered By:Rose Marie Norton; 3. Drink at least 6 glasses of clear liquids a day.; Status:Complete; Done: 77Lcg4313 12:38PM Ordered; For:Pneumonia; Ordered By:Rose Marie Norton; 4. Seek Immediate Medical Attention if: You are feeling short of breath.; Status:Complete; Done: 18Jrb1921 12:39PM Ordered; For:Pneumonia; Ordered By:Rose Marie Norton; Signatures Electronically signed by : Rose Marie Norton NP; Oct 12 2017 12:39PM PILLOWCASE SEWER (Author) documented in this encounter Plan of Treatment Not on file documented as of this encounter Visit Diagnoses Not on filedocumented in this encounter
--- OUTSIDE RECORDS SUMMARY | 2024-11-04 23:58 | XMS_ITS | Encounter Summary ---
Author Organization [facility] Address [address] [place] [address]. [place], [place] [address] [place] [address] Care Team Providers Care Casting Machine Service Operator Name Role Phone Rose Marie Norton HOLLOW CORE DOOR FRAME ASSEMBLER Primary Care Provider + Rose Marie Norton HOLLOW CORE DOOR FRAME ASSEMBLER Primary Care Provider + , Generic Conversion [...] (Late st Contact Info) Description 10/11/2013 Abstract [facility] [place] [address] [facility], [address] [place] [address] Iglesia Little MD [address] [place] [address] [address] [place] [address] Social History Tobacco Use Types Packs/Day Years [...] Comments Blood Pressure 142/96 10/11/2013 3:11 PM MANAGER QUALITY COMPLIANCE Pulse 79 10/11/2013 3:11 PM MANAGER QUALITY COMPLIANCE Temperature - - Respiratory Rate - - Oxygen Saturation - - Inhaled Oxygen Concentration - - Weight - - Height - - Body Mass Index - - documented in this encounter Progress Notes * Iglesia Little MD - 10/11/2013 3:00 PM CST Reason [...] Oral Tablet; TAKE 1 TABLET DAILY; Therapy: (Recorded:12Lau3934) to 2. Naproxen 500 MG Oral Tablet; TAKE 1 TABLET EVERY 12 HOURS NEEDED; Therapy: 08Oct2013 to (Evaluate:45Thj6225); Last Rx:15Cbc8717 3. Omeprazole 40 MG Oral Capsule Delayed [...] line. Results/Data XR KNEE 3 VIEW RT 45Zed9103 12:03PM Iglesia Little Test Name Result Flag Reference TAMMY CERVANTES ORDERING MD: IGLESIA LITTLE MD ACCT: [id number] : 1975 PT TYPE: REG CLI SEX: F ORD SITE: [facility] IMAGING STUDY DATE REPORT # PROCEDURE CODE PROCEDURE 10/09/13 [id number] XR KNEE 3 VIEW RT EXTORDERID [id number] ACCESSION NUMBER [id number] CHART DOCUMENT IMPRESSION: JOINT EFFUSION AND PREPATELLAR [...] M.D. 10/09/2013 14:55 DEEPTHI ALDRICH M.D. P #[id number] P/MA CC: IGLESIA LITTLE M.D. Radiology image is available. Click on Image Link above. Assessment 1. Joint Pain In The Right Knee 719.46 Plan 1. MRI Knee W/O Rt Requested for: 19Pjm5575 Ordered; For: Joint Pain In The Right Knee (719.46); Ordered By: Iglesia Little Perform: [facility] Radiology Due: [id number] Signatures Electronically signed by : Iglesia Little M.D.; Oct 11 2013 3:22PM (Author) GER QUALITY COMPLIANCE documented in this encounter Plan of Treatment Not on file documented as of this encounter Visit Diagnoses Not on filedocumented in this encounter Care Teams Casting Machine Service Operator Relationship Specialty Start Date End Date Rose Marie Norton NP PCP - General 07/06/15 10/31/16 Rose Marie Norton NP PCP - General 03/02/15 07/05/15 Tam Gilbert MD PCP - General 12/18/14 Iglesia Little MD [address] [place] [address] PCP - General 10/12/14 12/17/14 Iglesia Little MD [address] [place] [address] PCP - General 06/28/14 10/11/14 Iglesia Little MD [address] [place] [address] PCP - General 04/14/14 06/27/14 Iglesia Little MD [address] [place] [address] PCP - General 02/23/14 04/13/14 Iglesia Little MD [address] [place] [address] PCP - General 02/07/14 02/22/14 Iglesia Little MD [address] [place] [address] PCP - General 10/09/13 02/06/14 documented as of this encounter
--- OUTSIDE RECORDS SUMMARY | 2024-11-04 23:58 | XMS_ITS | Encounter Summary ---
Author Organization [facility] Address [address] [place] [address]. [place], [place] [address] [place] [address] Care Team Providers Care Clerk General Name Role Phone Rose Marie Norton GRAB JACK WORKER Primary Care Provider + Rose Marie Norton GRAB JACK WORKER Primary Care Provider + Tam Gilbert MD [...] Team (Latest Contact Info) Description 12/18/2013 Abstract [facility] Medical Group [...] on filedocumented in this encounter Care Teams Clerk General Relationship Specialty Start Date End Date Rose Marie Norton GRAB JACK WORKER PCP - General 07/06/15 10/31/16 Rose Marie Norton NP PCP - General 03/02/15 07/05/15 Tam Gilbert MD PCP - General 12/18/14 Iglesia Little MD [address] [place] [address] PCP - General 10/12/14 12/17/14 Iglesia Little MD [address] [place] [address] PCP - General 06/28/14 10/11/14 Iglesia Little MD [address] [place] [address] PCP - General 04/14/14 06/27/14 Iglesia Little MD [address] [place] [address] PCP - General 02/23/14 04/13/14 Iglesia Little MD [address] [place] [address] PCP - General 02/07/14 02/22/14 Iglesia Little MD [address] [place] [address] PCP - General 10/09/13 02/06/14 documented as of this encounter
--- OUTSIDE RECORDS SUMMARY | 2024-11-04 23:58 | XMS_ITS | Encounter Summary ---
Author Organization [facility] Address [address] [place] [address]. [place] [address] [place] [address] Care Team Providers Care Embossing Press Operator Apprentice Name Role Phone Unavailable Primary Care Provider Unavailabl e Reason for Visit * Reason Comments Physical pt having hysterecto my on Dec 26 wants labs and such done Encounter Details Date Type Department Care Team (Late st Contact Info) Description 12/08/2018 8:40 AM [facility] Office Visit [facility] Family and Sports Medicine - [place] [address] [place] [phone] Rose Marie Norton, TIMBER FELLER [address] [place], [place] [phone]- Physical (pt having hysterectomy on Dec 26 [...] Comments Blood Pressure 132/82 12/08/2018 8:38 AM [facility] Pulse 76 12/08/2018 8:38 AM [facility] Temperature - - Respiratory Rate 18 12/08/2018 8:38 AM [facility] Oxygen Saturation 98% 12/08/2018 8:38 AM [facility] Inhaled Oxygen Concentration - - Weight 109.8 kg (242 lb) 12/08/2018 8:38 AM [facility] Height 160 cm (5' 3 ) 12/08/2018 8:38 AM [facility] Body Mass Index 42.87 12/08/2018 8:38 AM [facility] documented in this encounter Progress Notes * [...] No fever, fatigue, no HEENT concerns. No SHOE STAINER concerns; denies headache, seizures, dizziness, or weakness. [...] Neuro: DTRs, brachioradialis, patellar, and Achilles 2+/2+. SHOE STAINER intact. CN II- XII grossly intact. ASSESSMENT: [...] day in divided dosesalong with vitamin D 9261-4401 IU per day, weight and nutritional management guidelines and the positive benefits of regular aerobic exercise. Medications/Labs/Vaccines: Additional lab tests per [facility] orders, Patient will be contacted withresults of tests done per Epic orders. Return to the clinic annually or as needed. Maria Del Carmen v/u and leaves with no further questions or concerns. [facility] documented in this encounter Plan of Treatment Scheduled Orders Name Type Priority Associated Diagnoses Orde r Schedule VENIPUNC ARM DRAW Procedures Routine Essential hypertension Ordered: 12/08/2018 documented as of this encounter Results * XR CHEST PA+LAT (12/14/2018 5:08 PM [facility]) Anatomical Region Laterality Modality Chest Radiographic Rosi ging 12/14/2018 7:34 PM [facility] Impressions 12/14/2018 7:35 PM [facility] =====IMPRESSION:===== No acute or focal infiltrates. Narrative 12/14/2018 7:35 PM [facility] Examination: Chest x-ray 2 view Exam date/time: [...] acute or focal infiltrates. Rose Marie Norton TIMBER FELLER GENERAL IMAGING Final Result * TSH W/REFLEX (12/08/2018 9:28 AM [facility]) TSH 1.800 0.358 - 3.74 uIU/ML 12/08/2018 7:[address] [facility] Comment: HIGH DOSES OF BIOTIN MAY INTERFERE WITH THIS TEST RESULT. CORRELATION TO CLINICAL HISTORY AND PRESENTATION RECOMMENDED. FREE T4 NOT INDICATED 12/08/2018 9:28 AM [facility] us Rose Marie Vickie Errol TIMBER FELLER LABORATORY Final Result [facility] [address] [place] [address], * (ABNORMAL) LIPID PANEL (12/08/2018 9:28 AM [facility]) CHOLESTEROL 182 <200 MG/DL 12/08/2018 7:[address] [facility] TRIGLYCERIDES 96 <150 MG/DL 12/08/2018 7:[address] [facility] HDL 57 >40.0 MG/DL 12/08/2018 7:[address] [facility] LDL (CALCULATED) 106(H) <100 MG/DL 12/08/2018 7:[address] [facility] NON HDL CHOLESTEROL 125 <130 MG/DL 12/08/2018 7:[address] [facility] CHOL/HDL RATIO 3.2 0.0 - 4.5 12/08/2018 7:[address] [facility] VLDL CALCULATION 19 5 - 55 MG/DL 12/08/2018 7:[address] [facility] LIPID INTERPRETATION 12/08/2018 7:[address] [facility] Comment: [facility] REPORT RECOMMENDATIONS: [...] ?LDL ? >=160 ?>=130 12/08/2018 9:28 AM [facility] us Rose Marie Norton TIMBER FELLER LABORATORY Final Result [facility] [address] [place] [address], * (ABNORMAL) COMPREHENSIVE METABOLIC PANEL (12/08/2018 9:28 AM [facility]) GLUCOSE 87 70 - 99 MG/DL 12/08/2018 7:45 PM [facility] BUN 18 7 - 18 MG/DL 12/08/2018 7:[address] [facility] CREATININE S/P/B 0.96 0.55 - 1.02 MG/DL 12/08/2018 7:[address] [facility] SODIUM S/P/B 145 136 - 145 MMOL/L 12/08/2018 7:[address] [facility] POTASSIUM S/P/B 4.4 3.5 - 5.1 MMOL/L 12/08/2018 7:[address] [facility] CHLORIDE S/P/B 111(H) 100 - 108 MMOL/L 12/08/2018 7:[address] [facility] CO2 27.6 21 - 32 MMOL/L 12/08/2018 7:[address] [facility] CALCIUM S/P/B 8.3(L) 8.5 - 10.1 MG/DL 12/08/2018 7:[address] [facility] BILIRUBIN TOTAL S/P/B 0.2 0.2 - 1.2 MG/DL 12/08/2018 7:[address] [facility] TOTAL PROTEIN S/P/B 6.3(L) 6.4 - 8.2 G/DL 12/08/2018 7:[address] [facility] ALBUMIN S/P/B 3.4 3.4 - 5.0 G/DL 12/08/2018 7:[address] [facility] AST 14(L) 15 - 37 U/L 12/08/2018 7:[address] [facility] ALT 23 14 - 55 U/L 12/08/2018 7:[address] [facility] ALKALINE PHOSPHATASE S/P/B 94 50 - 136 U/L 12/08/2018 7:[address] [facility] ANION GAP 10.8 8 - 20 MMOL/L 12/08/2018 7:[address] [facility] BUN CREATININE RATIO 18.8 6 - 26 12/08/2018 7:[address] [facility] A/G RATIO 1.2 1.0 - 2.0 RATIO 12/08/2018 7:[address] [facility] EGFR NON-AFR. AMER. 73(L) >90 ML/MIN/1.7 3 M2 12/08/2018 7:[address] [facility] EGFR AFR. AMER. 85(L) >90 ML/MIN/1.7 3 M2 12/08/2018 7:[address] [facility] Comment: NOTE: eGFR is not calculated for patients <18 years of age. This is an estimated GFR (CKD EPI) and should not be used for calculating drug doses. 12/08/2018 9:28 AM [facility] Rose Marie Norton NP LABORATORY Final Result [facility] [address] [place] [address], [place] [phone] * (ABNORMAL) CBC W/DIFF AUTOMATED (12/08/2018 9:28 AM [facility]) WBC 9.2 4.5 - 11.0 x10'3/uL 12/08/2018 7:[address] [facility] RBC 4.54 4.20 - 5.40 x10'6/uL 12/08/2018 7:[address] [facility] HGB 12.9 12.0 - 16.0 G/DL 12/08/2018 7:[address] [facility] HCT 42.0 38.0 - 48.0 % 12/08/2018 7:[address] [facility] MCV 92.5 80.0 - 94.0 FL 12/08/2018 7:[address] [facility] MCH 28.4 27.0 - 31.0 PG 12/08/2018 7:[address] [facility] MCHC 30.7(L) 32.0 - 36.0 G/DL 12/08/2018 7:[address] [facility] RDW 14.2 11.5 - 14.5 % 12/08/2018 7:[address] [facility] PLT 314 130 - 400 x10'3/uL 12/08/2018 7:[address] [facility] MPV 10.5 9.3 - 12.2 FL 12/08/2018 7:[address] [facility] DIFFERENTIAL TYPE AUTOMATED DIFFERENTIAL 12/08/2018 7:[address] [facility] NEUTROPHILS % 63.9 % 12/08/2018 7:[address] [facility] LYMPHOCYTES % 28.9 % 12/08/2018 7:[address] [facility] MONOCYTES % 4.3 % 12/08/2018 7:[address] [facility] EOSINOPHILS 1.8 % 12/08/2018 7:[address] [facility] BASOPHILS 0.9 % 12/08/2018 7:[address] [facility] IMMATURE GRANS % 0.2(H) 0 % 12/08/19 19 7:[address] [facility] ABS. NEUTROPHILS TOTAL 5.90 1.80 - 7.70 x10'3/uL 12/08/2018 7:[address] [facility] ABS. LYMPHOCYTES 2.67 1.00 - 4.80 x10'3/uL 12/08/2018 7:[address] [facility] ABS. MONOCYTES 0.40 0.24 - 0.86 x10'3/uL 12/08/2018 7:25 PM [facility] ABS. EOSINOPHILS 0.17 0.04 - 0.36 x10'3/uL 12/08/2018 7:25 PM [facility] ABS. BASOPHILS 0.08 0.01 - 0.08 x10'3/uL 12/08/2018 7:25 PM [facility] ABS. IMMATURE GRANULOCYTES 0.02 0.00 - 0.03 x10'3/uL 12/08/2018 7:25 PM [facility] 12/08/2018 9:28 AM [facility] Rose Marie Norton NP LABORATORY Final Result [facility] [address] [place] [address], [place] [phone] documented in this encounter Visit Diagnoses Diagnosis Well adult exam- Primary Routine general medical examination at a health care facility Essential hypertension Unspecified essential hypertension Cough Cough documented in this encounter
--- OUTSIDE RECORDS SUMMARY | 2024-11-04 23:58 | XMS_ITS | Encounter Summary ---
Author Organization [facility] Address [address] [place] [address]. [place] [address] [place] [address] Care Team Providers Care Surfacing Machine Operator Name Role Phone Rose Marie Norton NP Primary Care Provider [phone] Encounter Details Date Type Department Care Team (Late st Contact Info) Description 12/04/2015 Abstract [facility] Family Medicine - [place] [address] [facility], [address] [place] [address] Rose Marie Norton NP [address] [place], [place] [phone] Social History Tobacco Use Types Packs/Day Years [...] Comments Blood Pressure 124/78 12/04/2015 3:23 PM GLOBAL ACCOUNT DIRECTOR Pulse 98 12/04/2015 3:23 PM GLOBAL ACCOUNT DIRECTOR Temperature - - Respiratory Rate - - Oxygen Saturation - - Inhaled Oxygen Concentration - - Weight 113.4 kg (250 lb) 12/04/2015 3:23 PM GLOBAL ACCOUNT DIRECTOR Height 160 cm (5' 3 ) 12/04/2015 3:23 PM GLOBAL ACCOUNT DIRECTOR Body Mass Index 44.29 12/04/2015 3:23 PM GLOBAL ACCOUNT DIRECTOR documented in this encounter Progress Notes * [...] Transmission to [facility]; Last Updated By: [employer]; 11/14/2015 3:00:55 PM 2. Triamterene-HCTZ 37.5-25 MG Oral Capsule; TAKE 1 CAPSULE DAILY; Therapy: 64Gqn0191 to (Evaluate:08Nov2016) Requested for: 14Nov2015; Last Rx:14Nov2015 Ordered Rx By: Rose Marie Norton; Dispense: 30 Days ; #:30 Capsule; Refill: 11; For: Hypertension; YASSINE = N; Verified Transmission to [facility]; Last Updated By: [employer]; 11/14/2015 3:00:56 PM Allergies 1. No Known [...] Sinusitis; YASSINE = N; Verified Transmission to [facility]; Last Updated By: [employer]; 12/04/2015 3:57:28 PM 2. Apply warm moist compresses to the affected area 3 times a day for 5 minutes.; Status:Complete; Done: 04Dec2015 09:21PM Ordered; For:Sinusitis; Ordered By:Rose Marie Norton; 3. Drink at least 6 glasses of water or juice a day.; Status:Complete; Done: 04Dec2015 09:21PM Ordered; For:Sinusitis; Ordered By:Rose Marie Norton; 4. Irrigate your nose twice a day.; Status:Complete; Done: 04Dec2015 09:21PM Ordered; For:Sinusitis; Ordered By:Rose Marie Norton; 5. Taking a hot steamy shower may help your condition.; Status:Complete; Done: 04Dec2015 09:21PM Ordered; For:Sinusitis; Ordered By:Rose Marie Norton; Signatures Electronically signed by : Rose Marie Norton NP; Dec 04 2015 9:21PM GLOBAL ACCOUNT DIRECTOR (Author) documented in this encounter Plan of Treatment Not on file documented as of this encounter Visit Diagnoses Not on filedocumented in this encounter Care Teams Surfacing Machine Operator Relationship Specialty Start Date End Date Rose Marie Norton NP PCP - General 07/06/15 10/31/16 documented as of this encounter
--- OUTSIDE RECORDS SUMMARY | 2024-11-04 23:58 | XMS_ITS | Encounter Summary ---
Author Organization [facility] Address [facility]. [place], [place] [address] [place] [address] Care Team Providers Care Social Service Agency Director Name Role Phone Rose Marie Norton LEGAL INTERN Primary Care Provider + Rose Marie Norton LEGAL INTERN Primary Care Provider + Tam Trevino MD Primary Care Provider Unavailable Iglesia Little MD Primary Care Provider + Iglesia Little MD Primary Care Provider + Encounter Details Date Type Department Care Team (Latest Contact Info) Description 06/28/2014 Abstract [facility] , Generic ConversionMD Social History [...] on filedocumented in this encounter Care Teams Social Service Agency Director Relationship Specialty Start Date End Date Rose Marie Norton, LEGAL INTERN PCP - General 07/06/15 10/31/16 Rose Marie Norton LEGAL INTERN PCP - General 03/02/15 07/05/15 Tam Trevino MD PCP - General 12/18/14 Iglesia Little MD [address] [facility] [address] [place] [phone]- PCP - General 10/12/14 12/17/14 Iglesia Little MD [address] [facility] [address] [facility], [place] [address]- PCP - General 06/28/14 10/11/14 documented as of this encounter
--- OUTSIDE RECORDS SUMMARY | 2024-11-04 23:58 | XMS_ITS | Encounter Summary ---
Author Organization [facility] Address [address] [place] [address]. [place] [address] [place] [address] Care Team Providers Care School Psychologist Assistant Name Role Phone Rose Marie Norton POOL LIFEGUARD Primary Care Provider + Rose Marie Norton NP Primary Care Provider + , Generic Conversion MD Primary Care Provider Unavailable Iglesia Little MD Primary Care Provider + Iglesia Little MD Primary Care Provider + Encounter Details Date Type Department Care Team (Late st Contact Info) Description 08/06/[address] [facility] Family Medicine - [address], [address] [place] [address] Rose Marie Norton, POOL LIFEGUARD [address] [place] [address] Social History Tobacco Use Types Packs/Day Years [...] encounter Progress Notes * Rose Marie Norton, POOL LIFEGUARD - 08/06/2014 1:00 PM CDT Reason For [...] 1 TABLET EVERY 12 HOURS NEEDED; Therapy: [id number] to (Evaluate:[id number]); Last Rx:[id number] Ordered Rx By: Iglesia Little; Dispense: 15 [...] the spread of germs. Status: Complete Done: [id number] Ordered; For: Strep pharyngitis; Ordered By: Rose Marie Norton 4. Take steps to prevent passing germs to others. Status: Complete Done: [id number] Ordered; For: Strep pharyngitis; Ordered By: Rose Marie Norton Discussion/Summary Print RX, fill if symptoms become worse. Discussed typical strep symptoms. Signatures Electronically signed by : Rose Marie Norton NP; Aug 06 2014 1:28PM COMPENSATION ASSOCIATE (Author) documented in this encounter Plan of [...] - General 12/18/14 Iglesia Little MD [address] [phone] PCP - General 10/12/14 12/17/14 Iglesia Little MD [address] [phone]- PCP - General 06/28/14 10/11/14 documented as of this encounter
--- OUTSIDE RECORDS SUMMARY | 2024-11-04 23:59 | XMS_ITS | Encounter Summary ---
Author Organization [facility] Address [facility]ly [facility]. [place], [place] [address] [place] [address] Care Team Providers Care Payroll And Benefits Specialist Name Role Phone Rose Marie Norton ANIMAL CARE ASSISTANT Primary Care Provider + Rose Marie Norton ANIMAL CARE ASSISTANT Primary Care Provider + Md Generic [...] 04/06/[address] [address] [place], [place] [id number] Tam Trevino MD Social History Tobacco Use [...] Scabies documented in this encounter Care Teams Payroll And Benefits Specialist Relationship Specialty Start Date End Date Rose Marie Norton NP PCP - General 07/06/15 10/31/16 Rose Marie Norton NP PCP - General 03/02/15 07/05/15 Tam Trevino MD PCP - General 12/18/14 Iglesia Little MD [address] [address] PCP - General 10/12/14 12/17/14 Iglesia Little MD [address] [place] [address] PCP - General 06/28/14 10/11/14 Iglesia Little MD [address] [place] [address] PCP - General 04/14/14 06/27/14 Iglesia Little MD [address] [place] [address] PCP - General 02/23/14 04/13/14 Iglesia Little MD [address] [place] [address] PCP - General 02/07/14 02/22/14 Iglesia Little MD [address] [place] [address] PCP - General 10/09/13 02/06/14 , Generic Conversion, PCP - General 10/06/13 , Generic Conversion, PCP - General 09/17/1310/05 , Generic Conversion, PCP - General 07/06/1309/16 , Generic Conversion, PCP - General 06/20/13 Iglesia Little MD [address] [place] [address] PCP - General 04/04/13 06/19/13 Iglesia Little MD [address] [place] [address] PCP - General 01/31/13 04/03/13 Iglesia Little MD [address] [place] [address] (Work) PCP - General 01/18/13 01/30/13 Iglesia Little MD [address] [place] [address] PCP - General 12/17/11 01/17/13 Iglesia Little MD [address] [address] PCP - General 11/12/11 12/16/11 Iglesia Little MD [address] [address] PCP - General 04/06/11 11/11/11 documented as of this encounter
--- OUTSIDE RECORDS SUMMARY | 2024-11-04 23:59 | XMS_ITS | Encounter Summary ---
Author Organization [facility] Address [facility]. [place], [place] [address] [place] [address] Care Team Providers Care Senior Data Warehouse Developer Name Role Phone Rose Marie Notron BIBLICAL LANGUAGES PROFESSOR Primary Care Provider + Rose Marie Norton BIBLICAL LANGUAGES PROFESSOR Primary Care Provider + Md Generic Madison [...] + Iglesia Little MD Primary Care Provider [phone] Encounter Details Date Type Department Care Team (Late st Contact Info) Description 03/29/[address] [address] [facility] [place], [place] [id number] , Tam Wallace MD Social History Tobacco [...] conditions documented in this encounter Care Teams Senior Data Warehouse Developer Relationship Specialty Start Date End Date Rose Marie Norton BIBLICAL LANGUAGES PROFESSOR PCP - General 07/06/15 10/31/16 Rose Marie Norton NP PCP - General 03/02/15 07/05/15 Tam Trevino MD PCP - General 12/18/14 Iglesia Little MD [address] [place] [address] PCP - General 10/12/14 12/17/14 Iglesia Little MD [address] [place] [address] PCP - General 06/28/14 10/11/14 Iglesia Little MD [address] [place] [address] PCP - General 04/14/14 06/27/14 Iglesia Little MD [address] [place] [address] PCP - General 02/23/14 04/13/14 Iglesia Little MD [address] [place] [address] PCP - General 02/07/14 02/22/14 Iglesia Little MD [address] [place] [address] PCP - General 10/09/13 02/06/14 , Generic Conversion, PCP - General 10/06/13 , Generic Conversion, PCP - General 09/17/1310/05 , Generic Conversion, PCP - General 07/06/1309/16 , Generic Conversion, PCP - General 06/20/13 Iglesia Little MD [address] [place] [address] PCP - General 04/04/13 06/19/13 Iglesia Little MD [address] [place] [address] PCP - General 01/31/13 04/03/13 Iglesia Little MD [address] [place] [address] PCP - General 01/18/13 01/30/13 Iglesia Little MD [address] [place] [address] PCP - General 12/17/11 01/17/13 Iglesia Little MD [address] [address] PCP - General 11/12/11 12/16/11 Iglesia Little MD [address] [address] PCP - General 04/06/11 11/11/11 Iglesia Little MD [address] [address] PCP - General 03/29/11 04/05/11 documented as of this encounter
--- OUTSIDE RECORDS SUMMARY | 2024-11-04 23:59 | XMS_ITS | Encounter Summary ---
Author Organization [facility] Address [facility]. [place], [place] [address] [place] [address] Care Team Providers Care Ground Control Approach Technician Name Role Phone Rose Marie Norton WINDOWS ADMIN Primary Care Provider + Rose Marie Norton WINDOWS ADMIN Primary Care Provider + Md Generic Madison [...] Little MD Primary Care Provider + Iglesia Littel MD Primary Care Provider [phone]- Encounter Details Date Type Department Care Team (Late st Contact Info) Description 12/06/2001 Abstract [place] [address] , Tam Wallace MD Social History Tobacco [...] on filedocumented in this encounter Care Teams Ground Control Approach Technician Relationship Specialty Start Date End Date Rose Marie Norton WINDOWS ADMIN PCP - General 07/06/15 10/31/16 Rose Marie Norton WINDOWS ADMIN PCP - General 03/02/15 07/05/15 Tam Trevino MD PCP - General 12/18/14 Iglesia Little MD [address] [address] PCP - General 10/12/14 12/17/14 Iglesia Little MD [address] [address] PCP - General 06/28/14 10/11/14 Iglesia Little MD [address] [address] PCP - General 04/14/14 06/27/14 Iglesia Little MD [address] [place] [address] PCP - General 02/23/14 04/13/14 Iglesia Little MD [address] [place] [address] PCP - General 02/07/14 02/22/14 Iglesia Little MD [address] [place] [address] PCP - General 10/09/13 02/06/14 , Generic Conversion, PCP - General 10/06/13 , Generic Conversion, PCP - General 09/17/1310/05 , Generic Conversion, PCP - General 07/06/1309/16 , Generic Conversion, PCP - General 06/20/13 Iglesia Little MD [address] [place] [address] PCP - General 04/04/13 06/19/13 Iglesia Little MD [address] [place] [address] PCP - General 01/31/13 04/03/13 Iglesia Little MD [address] [place] [address] PCP - General 01/18/13 01/30/13 Iglesia Little MD [address] [place] [address] PCP - General 12/17/11 01/17/13 Iglesia Little MD [address] [place] [address] PCP - General 11/12/11 12/16/11 Iglesia Little MD [address] [address] PCP - General 04/06/11 11/11/11 Iglesia Little MD [address] [place] [address] PCP - General 03/29/11 04/05/11 documented as of this encounter
--- OUTSIDE RECORDS SUMMARY | 2024-11-04 23:59 | XMS_ITS | Encounter Summary ---
Author Organization [facility] Address [address] [place] [address]. [place], [place] [address] [place] [address] Care Team Providers Care Front Desk Assistant Name Role Phone Rose Marie Norton SCREW MACHINE OPERATOR SINGLE SPINDLE Primary Care Provider + Rose Marie Norton SCREW MACHINE OPERATOR SINGLE SPINDLE Primary Care Provider + Md Generic Madison [...] (Late st Contact Info) Description 11/22/2012 Abstract [facility] Family Medicine - [place] [address] [place] [phone] Iglesia Little MD [address]70 [facility] 200 [place] [address] Social History Tobacco Use Types Packs/Day Years [...] Comments Blood Pressure 134/100 11/22/2012 12:38 PM SOLUTION ADVISOR Pulse 90 11/22/2012 12:38 PM SOLUTION ADVISOR Temperature - - Respiratory Rate - - Oxygen Saturation - - Inhaled Oxygen Concentration - - Weight 106.6 kg (235 lb) 11/22/2012 12:38 PM SOLUTION ADVISOR Height - - Body Mass Index 41.63 [...] Oral Tablet; TAKE 1 TABLET DAILY; Therapy: (Recorded:[id number]) to Recorded; For: Hypertension (401.9); Dispense: 90 [...] Little M.D.; Nov 22 2012 12:58PM (Author) TION ADVISOR documented in this encounter Plan of Treatment Not on file documented as of this encounter Visit Diagnoses Not on filedocumented in this encounter Care Teams Front Desk Assistant Relationship Specialty Start Date End Date Rose Marie Norton SCREW MACHINE OPERATOR SINGLE SPINDLE PCP - General 07/06/15 10/31/16 Rose Marie Norton SCREW MACHINE OPERATOR SINGLE SPINDLE PCP - General 03/02/15 07/05/15 Tam Trevino MD PCP - General 12/18/14 Iglesia Little MD [address] [place] [address] PCP - General 10/12/14 12/17/14 Iglesia Little MD [address] [place] [address] PCP - General 06/28/14 10/11/14 Iglesia Little MD [address] [place] [address] PCP - General 04/14/14 06/27/14 Iglesia Little MD [address] [place] [address] PCP - General 02/23/14 04/13/14 Iglesia Little MD [address] [place] [address] PCP - General 02/07/14 02/22/14 Iglesia Little MD [address] [place] [address] PCP - General 10/09/13 02/06/14 , Generic Conversion, PCP - General 10/06/13 , Generic Conversion, PCP - General 09/17/1310/05 , Generic Conversion, PCP - General 07/06/1309/16 , Generic Conversion, PCP - General 06/20/13 Iglesia Little MD [address] [place] [address] PCP - General 04/04/13 06/19/13 Iglesia Little MD [address] [place] [address] PCP - General 01/31/13 04/03/13 Iglesia Little MD [address] [place] [address] PCP - General 01/18/13 01/30/13 Iglesia Little MD [address] [place] [address] PCP - General 12/17/11 01/17/13 documented as of this encounter
--- OUTSIDE RECORDS SUMMARY | 2024-11-04 23:59 | XMS_ITS | Encounter Summary ---
Author Organization [facility] Address [facility] [place] [address] [place] [address] Care Team Providers Care Sample Weaver Name Role Phone Rose Marie Norton GROUP DIRECTOR Primary Care Provider + Rose Marie Norton GROUP DIRECTOR Primary Care Provider + Tam Gilbert MD [...] Description 04/04/[address] [facility] [place] [address] Iglesia Little MD [address] [place] [address] [address] [place] [address] Social History Tobacco Use Types Packs/Day Years [...] specified documented in this encounter Care Teams Sample Weaver Relationship Specialty Start Date End Date Rose Marie Norton NP PCP - General 07/06/15 10/31/16 Rose Marie Norton NP PCP - General 03/02/15 07/05/15 Tam Gilbert MD PCP - General 12/18/14 Igelsia Little MD [address] [facility] [place] [address] PCP - General 10/12/14 12/17/14 Iglesia Little MD [address] [facility] [place] [address] PCP - General 06/28/14 10/11/14 Iglesia Little MD [address] [facility] [place] [address] PCP - General 04/14/14 06/27/14 Iglesia Little MD [address] [place] [address] PCP - General 02/23/14 04/13/14 Iglesia Little MD [address] [address] PCP - General 02/07/14 02/22/14 Iglesia Little MD [address] [address] PCP - General 10/09/13 02/06/14 Md, Generic Conversion, MD PCP - General 10/06/13 , Generic Conversion, PCP - General 09/17/1310/05 , Generic Conversion, MD PCP - General 07/06/1309/16 , Generic Conversion, MD PCP - General 06/20/13 Iglesia Little MD [address] [address] PCP - General 04/04/13 06/19/13 documented as of this encounter
--- OUTSIDE RECORDS SUMMARY | 2024-11-04 23:59 | XMS_ITS | Encounter Summary ---
Author Organization [facility] Address [address] [place] [address]. [place], [place] [address] [place] [address] Care Team Providers Care Logging Worker Name Role Phone Rose Marie Norton FOSTER CARE THERAPIST Primary Care Provider + Rose Marie Norton FOSTER CARE THERAPIST Primary Care Provider + Md Generic [...] Team (Latest Contact Info) Description 11/15/2012 Abstract [facility] Social History Tobacco [...] on filedocumented in this encounter Care Teams Logging Worker Relationship Specialty Start Date End Date Rose Marie Norton, FOSTER CARE THERAPIST PCP - General 07/06/15 10/31/16 Rose Marie Norton, FOSTER CARE THERAPIST PCP - General 03/02/15 07/05/15 Tam Trevino MD PCP - General 12/18/14 Iglesia Little MD [address] [place] [address] PCP - General 10/12/14 12/17/14 Iglesia Little MD [address] [place] [address] PCP - General 06/28/14 10/11/14 Iglesia Little MD [address] [place] [address] PCP - General 04/14/14 06/27/14 Iglesia Little MD [address] [place] [address] PCP - General 02/23/14 04/13/14 Iglesia Little MD [address] [place] [address] PCP - General 02/07/14 02/22/14 Iglesia Little MD [address] [place] [address] PCP - General 10/09/13 02/06/14 , Generic Conversion, PCP - General 10/06/13 , Generic Conversion, PCP - General 09/17/1310/05 , Generic Conversion, PCP - General 07/06/1309/16 , Generic Conversion, PCP - General 06/20/13 Iglesia Little MD [address] [place] [address] PCP - General 04/04/13 06/19/13 Iglesia Little MD [address] [place] [address] PCP - General 01/31/13 04/03/13 Iglesia Little MD [address] [place] [address] PCP - General 01/18/13 01/30/13 Iglesia Little MD [address] [place] [address] PCP - General 12/17/11 01/17/13 documented as of this encounter
--- OUTSIDE RECORDS SUMMARY | 2024-11-04 23:59 | XMS_ITS | Encounter Summary ---
Author Organization [facility] Address [address] [place] [address]. [place] [address] [place] [address] Care Team Providers Care Insurance Associate Name Role Phone Rose Marie Norton FOREST FIRE LOOKOUT Primary Care Provider + Rose Marie Norton FOREST FIRE LOOKOUT Primary Care Provider + Md Generic Madison [...] 01/31/[address] [facility] [address] [facility] [place], [place] [phone] Chloe De La Cruz, PAPER COATING SUPERVISOR [address] [facility] [address] [place] [address] Social History Tobacco Use Types [...] tube documented in this encounter Care Teams Insurance Associate Relationship Specialty Start Date End Date Rose Marie Norton FOREST FIRE LOOKOUT PCP - General 07/06/15 10/31/16 Rose Marie Norton FOREST FIRE LOOKOUT PCP - General 03/02/15 07/05/15 Tam Trevino MD PCP - General 12/18/14 Iglesia Little MD [address] [place] [address] PCP - General 10/12/14 12/17/14 Iglesia Little MD [address] [facility] [place] [address] PCP - General 06/28/14 10/11/14 Iglesia Little MD [address] [place] [address] PCP - General 04/14/14 06/27/14 Iglesia Little MD [address] [place] [address] PCP - General 02/23/14 04/13/14 Iglesia Little MD [address] [place] [address] PCP - General 02/07/14 02/22/14 Iglesia Little MD [address] [place] [address] PCP - General 10/09/13 02/06/14 Md, Generic Conversion, MD PCP - General 10/06/13 , Generic Conversion, MD PCP - General 09/17/1310/05 , Generic Conversion, PCP - General 07/06/1309/16 , Generic Conversion, MD PCP - General 06/20/13 Iglesia Little MD [address] [place] [address] PCP - General 04/04/13 06/19/13 Iglesia Little MD [address] [place] [address] PCP - General 01/31/13 04/03/13 documented as of this encounter
--- OUTSIDE RECORDS SUMMARY | 2024-11-04 23:59 | XMS_ITS | Encounter Summary ---
Author Organization [facility] Address [facility]. [place], [place] [address] [place] [address] Care Team Providers Care Consumer Loan Officer Name Role Phone Rose Marie Norton MILKING MACHINE TECHNICIAN Primary Care Provider + Rose Marie Norton MILKING MACHINE TECHNICIAN Primary Care Provider + Md Generic Madison [...] Description 06/30/[address] [facility] [address] [address] [place], [place] [id number] Iglesia Little MD [address] [place] [address] Social History Tobacco Use Types Packs/Day Years [...] deficiency documented in this encounter Care Teams Consumer Loan Officer Relationship Specialty Start Date End Date Rose Marie Norton NP PCP - General 07/06/15 10/31/16 Rose Marie Norton MILKING MACHINE TECHNICIAN PCP - General 03/02/15 07/05/15 Tam Trevino MD PCP - General 12/18/14 Iglesia Little MD [address] [place] [address] PCP - General 10/12/14 12/17/14 Iglesia Little MD [address] [place] [address] PCP - General 06/28/14 10/11/14 Iglesia Little MD [address] [place] [address] PCP - General 04/14/14 06/27/14 Iglesia Little MD [address] [place] [address] PCP - General 02/23/14 04/13/14 Iglesia Little MD [address] [place] [address] PCP - General 02/07/14 02/22/14 Iglesia Little MD [address] [place] [address] PCP - General 10/09/13 02/06/14 , Generic Conversion, PCP - General 10/06/13 , Generic Conversion, PCP - General 09/17/1310/05 , Generic Conversion, PCP - General 07/06/1309/16 , Generic Conversion, PCP - General 06/20/13 Iglesia Little MD [address] [place] [address] [place] [address] PCP - General 04/04/13 06/19/13 Iglesia Little MD [address] [place] [address] [place] [address] PCP - General 01/31/13 04/03/13 Iglesia Little MD [address] [place] [address] PCP - General 01/18/13 01/30/13 Iglesia Little MD [address] [place] [address] PCP - General 12/17/11 01/17/13 Iglesia Little MD [address] [place] [address] PCP - General 11/12/11 12/16/11 Iglesia Little MD [address] [place] [address] PCP - General 04/06/11 11/11/11 documented as of this encounter
--- OUTSIDE RECORDS SUMMARY | 2024-11-04 23:59 | XMS_ITS | Encounter Summary ---
Author Organization [facility] Address [address] [place] [address]. [place], [place] [address] [place] [address] Care Team Providers Care Footwear Production Machine Operator Name Role Phone Rose Marie Norton INSTRUCTIONAL CONSULTANT Primary Care Provider + Rose Marie Norton INSTRUCTIONAL CONSULTANT Primary Care Provider + Md Generic Madison [...] Info) Description 12/17/[address] [facility] [place] [address] Nayely Garner MD [address] [facility] [address] [place] [address] Social History Tobacco Use Types [...] trunk documented in this encounter Care Teams Footwear Production Machine Operator Relationship Specialty Start Date End Date Rose Marie Norton NP PCP - General 07/06/15 10/31/16 Rose Marie Norton NP PCP - General 03/02/15 07/05/15 Tam Trevino MD PCP - General 12/18/14 Iglesia Little MD [address] [place] [phone] PCP - General 10/12/14 12/17/14 Iglesia Little MD [address] [place] [phone] PCP - General 06/28/14 10/11/14 Iglesia Little MD [address] [place] [phone] PCP - General 04/14/14 06/27/14 Iglesia Little MD [address] [place] [address] PCP - General 02/23/14 04/13/14 Iglesia Little MD [address] [place] [address] PCP - General 02/07/14 02/22/14 Iglesia Little MD [address] [place] [address] PCP - General 10/09/13 02/06/14 , Generic Conversion, PCP - General 10/06/13 , Generic Conversion, PCP - General 09/17/1310/05 , Generic Conversion, PCP - General 07/06/1309/16 , Generic Conversion, PCP - General 06/20/13 Iglesia Little MD [address] [place] [address] PCP - General 04/04/13 06/19/13 Iglesia Little MD [address] [place] [address] PCP - General 01/31/13 04/03/13 Iglesia Little MD [address] [place] [address] PCP - General 01/18/13 01/30/13 Iglesia Little MD [address] [place] [address] (Work) PCP - General 12/17/11 01/17/13 documented as of this encounter
--- OUTSIDE RECORDS SUMMARY | 2024-11-04 23:59 | XMS_ITS | Encounter Summary ---
Author Organization [facility] Address [facility]. [place], [place] [address] [place] [address] Care Team Providers Care Logistics Specialist Name Role Phone Rose Marie Norton SHELLFISH SHUCKER Primary Care Provider + Rose Marie Norton SHELLFISH SHUCKER Primary Care Provider + Md Generic Madison [...] Info) Description 09/30/1993 [place] [address] , Tam Wallace MD Social History Tobacco [...] on filedocumented in this encounter Care Teams Logistics Specialist Relationship Specialty Start Date End Date Rose Marie Norton SHELLFISH SHUCKER PCP - General 07/06/15 10/31/16 Rose Marie Norton SHELLFISH SHUCKER PCP - General 03/02/15 07/05/15 Tam Trevino MD PCP - General 12/18/14 Iglesia Little MD [address] [address] PCP - General 10/12/14 12/17/14 Iglesia Little MD [address] [address] PCP - General 06/28/14 10/11/14 Iglesia Little MD [address] [address] PCP - General 04/14/14 06/27/14 Iglesia Little MD [address] [place] [address] PCP - General 02/23/14 04/13/14 Iglesia Little MD [address] [place] [address] PCP - General 02/07/14 02/22/14 Iglesia Little MD [address] [place] [address] PCP - General 10/09/13 02/06/14 , Generic Conversion, PCP - General 10/06/13 , Generic Conversion, PCP - General 09/17/1310/05 , Generic Conversion, PCP - General 07/06/1309/16 , Generic Conversion, PCP - General 06/20/13 Iglesia Little MD [address] [place] [address] PCP - General 04/04/13 06/19/13 Iglesia Little MD [address] [place] [address] PCP - General 01/31/13 04/03/13 Iglesia Little MD [address] [place] [address] PCP - General 01/18/13 01/30/13 Iglesia Little MD [address] [place] [address] PCP - General 12/17/11 01/17/13 Iglesia Little MD [address] [place] [address] PCP - General 11/12/11 12/16/11 Iglesia Little MD [address] [address] PCP - General 04/06/11 11/11/11 Iglesia Little MD [address] [place] [address] PCP - General 03/29/11 04/05/11 documented as of this encounter
--- OUTSIDE RECORDS SUMMARY | 2024-11-04 23:59 | XMS_ITS | Encounter Summary ---
Author Organization [facility] Address [address] [place] [address]. [place], [place] [address] [place] [address] Care Team Providers Care Mobile Engineer Name Role Phone Rose Marie Norton CHIEF SPECIALIST LEED Primary Care Provider + Rose Marie Norton CHIEF SPECIALIST LEED Primary Care Provider + Md Generic Madison [...] Team (Latest Contact Info) Description 07/10/2012 Abstract [facility] Social History [...] filedocumented in this encounter Care Teams Mobile Engineer Relationship Specialty Start Date End Date Rose Marie Norton, CHIEF SPECIALIST LEED PCP - General 07/06/15 10/31/16 Rose Marie Norton, CHIEF SPECIALIST LEED PCP - General 03/02/15 07/05/15 Tam Trevino MD PCP - General 12/18/14 Iglesia Little MD [address] [place] [address] PCP - General 10/12/14 12/17/14 Iglesia Little MD [address] [place] [address] PCP - General 06/28/14 10/11/14 Iglesia Little MD [address] [place] [address] PCP - General 04/14/14 06/27/14 Iglesia Little MD [address] [place] [address] PCP - General 02/23/14 04/13/14 Iglesia Little MD [address] [place] [address] PCP - General 02/07/14 02/22/14 Iglesia Little MD [address] [place] [address] PCP - General 10/09/13 02/06/14 , Generic Conversion, PCP - General 10/06/13 , Generic Conversion, PCP - General 09/17/1310/05 , Generic Conversion, PCP - General 07/06/1309/16 , Generic Conversion, PCP - General 06/20/13 Iglesia Little MD [address] [place] [address] PCP - General 04/04/13 06/19/13 Iglesia Little MD [address] [place] [address] PCP - General 01/31/13 04/03/13 Iglesia Little MD [address] [place] [address] PCP - General 01/18/13 01/30/13 Iglesia Little MD [address] [place] [address] PCP - General 12/17/11 01/17/13 documented as of this encounter
--- OUTSIDE RECORDS SUMMARY | 2024-11-04 23:59 | XMS_ITS | Encounter Summary ---
Author Organization [facility] Address [address] [place] [address]. [place], [place] [address] [place] [address] Care Team Providers Care Looper Operator Name Role Phone Rose Marie Norton ABRASIVE GRINDER Primary Care Provider + Rose Marie Norton ABRASIVE GRINDER Primary Care Provider + Md Generic Madison [...] st Contact Info) Description 02/23/[address] [facility] [address] [place], [place] [phone] Iglesia Little MD [address] [address]- Social History Tobacco Use Types Packs/Day Years [...] therapy documented in this encounter Care Teams Looper Operator Relationship Specialty Start Date End Date Rose Marie Norton NP PCP - General 07/06/15 10/31/16 Rose Marie Norton NP PCP - General 03/02/15 07/05/15 Tam Trevino MD PCP - General 12/18/14 Iglesia Little MD [address] [address] PCP - General 10/12/14 12/17/14 Iglesia Little MD [address] [address] PCP - General 06/28/14 10/11/14 Iglesia Little MD [address] [place] [id number] PCP - General 04/14/14 06/27/14 Iglesia Little MD [address] [address] PCP - General 02/23/14 04/13/14 Iglesia Little MD [address] [place] [address] PCP - General 02/07/14 02/22/14 Iglesia Little MD [address] [place] [address] PCP - General 10/09/13 02/06/14 , Generic Conversion, PCP - General 10/06/13 , Generic Conversion, PCP - General 09/17/1310/05 , Generic Conversion, PCP - General 07/06/1309/16 , Generic Conversion, PCP - General 06/20/13 Iglesia Little MD [address] [facility] [address] PCP - General 04/04/13 06/19/13 Iglesia Little MD [address] [place] [address] PCP - General 01/31/13 04/03/13 Iglesia Little MD [address] [place] [address] PCP - General 01/18/13 01/30/13 Iglesia Little MD [address] [place] [address] (Work) PCP - General 12/17/11 01/17/13 documented as of this encounter
--- OUTSIDE RECORDS SUMMARY | 2024-11-04 23:59 | XMS_ITS | Encounter Summary ---
Author Organization [facility] Address [facility]. [place], [place] [address] [place] [address] Care Team Providers Care Refrigerated National Truck Driver Name Role Phone Rose Marie Norton DREDGE RUNNER Primary Care Provider + Rose Marie Norton DREDGE RUNNER Primary Care Provider + Md Generic Madison [...] Iglesia Little MD Primary Care Provider + Iglseia Little MD Primary Care Provider + Iglesia Little MD Primary Care Provider + Iglesia Little MD Primary Care Provider +1- Encounter Details Date Type Department Care Team (Late st Contact Info) Description 07/06/2001 Abstract [facility] [address] [place] [address] Tam Trevino MD Social History Tobacco Use [...] on filedocumented in this encounter Care Teams Refrigerated National Truck Driver Relationship Specialty Start Date End Date Rose Marie Norton, DREDGE RUNNER PCP - General 07/06/15 10/31/16 Rose Marie Norton DREDGE RUNNER PCP - General 03/02/15 07/05/15 Tam Trevino MD PCP - General 12/18/14 Iglesia Little MD [address] [address] PCP - General 10/12/14 12/17/14 Iglesia Little MD 670 [facility] [address] [place] [address] PCP - General 06/28/14 10/11/14 Iglesia Little MD [address] [facility] [address] [facility] [place] [address] PCP - General 04/14/14 06/27/14 Iglesia Little MD [address] [place] [address] PCP - General 02/23/14 04/13/14 Iglesia Little MD [address] [place] [address] PCP - General 02/07/14 02/22/14 Iglesia Little MD [address] [place] [address] PCP - General 10/09/13 02/06/14 , Generic Conversion, PCP - General 10/06/13 , Generic Conversion, PCP - General 09/17/1310/05 , Generic Conversion, PCP - General 07/06/1309/16 , Generic Conversion, PCP - General 06/20/13 Iglesia Little MD [address] [place] [address] PCP - General 04/04/13 06/19/13 Iglesia Little MD [address] [place] [address] PCP - General 01/31/13 04/03/13 Iglesia Little MD [address] [place] [address] (Work) PCP - General 01/18/13 01/30/13 Ilgesia Little MD [address] [place] [address] (Work) PCP - General 12/17/11 01/17/13 Iglesia Little MD [address] [address] PCP - General 11/12/11 12/16/11 Iglesia Little MD [address] [address] PCP - General 04/06/11 11/11/11 Iglesia Little MD [address] [address] PCP - General 03/29/11 04/05/11 documented as of this encounter
--- OUTSIDE RECORDS SUMMARY | 2024-11-04 23:59 | XMS_ITS | Encounter Summary ---
Author Organization [facility] Address [address] [place] [address]. [place], [place] [address] [place] [address] Care Team Providers Care Galvanometer Assembler Name Role Phone Rose Marie Norton PYTHON DEVELOPER Primary Care Provider + Rose Marie Norton PYTHON DEVELOPER Primary Care Provider + Md Generic Madison [...] (Late st Contact Info) Description 06/06/2012 Abstract [facility] Family [facility] - [place] [address] [place] [id number] Iglesia Little MD [address]70 [facility] 200 [place] [address] Social History Tobacco Use Types Packs/Day Years [...] Oral Tablet; TAKE 1 TABLET DAILY; Therapy: (Recorded:[id number]) to Allergies 1. No Known Drug Allergies [...] Little M.D.; Jun 06 2012 11:09AM (Author) IDER NETWORK ANALYST documented in this encounter Miscellaneous Notes * Letter - Iglesia Little MD - 06/06/2012 10:30 AM CDT To whom it may concern: Maria Del Carmen Ray was seen on 06/06/12 for a physical. Exam was normal. Iglesia Little MD Electronically signed by:Lori Beltran Jun 06 2012 10:59AM PROVIDER NETWORK ANALYST Author IDER NETWORK ANALYST documented in this encounter Plan of Treatment Not on file documented as of this encounter Visit Diagnoses Not on filedocumented in this encounter Care Teams Galvanometer Assembler Relationship Specialty Start Date End Date Rose Marie Norton NP PCP - General 07/06/15 10/31/16 Rose Marie Norton NP PCP - General 03/02/15 07/05/15 , Generic Conversion, PCP - General 12/18/14 Iglesia Little MD [address] [place] [address] PCP - General 10/12/14 12/17/14 Iglesia Little MD [address] [place] [address] PCP - General 06/28/14 10/11/14 Iglesia Little MD [address] [place] [address] PCP - General 04/14/14 06/27/14 Iglesia Little MD [address] [place] [address] PCP - General 02/23/14 04/13/14 Iglesia Little MD [address] [place] [address] PCP - General 02/07/14 02/22/14 Iglesia Little MD [address] [place] [address] PCP - General 10/09/13 02/06/14 , Generic Conversion, PCP - General 10/06/13 , Generic Conversion, PCP - General 09/17/1310/05 , Generic Conversion, PCP - General 07/06/1309/16 , Generic Conversion, PCP - General 06/20/13 Iglesia Little MD [address] [place] [address] PCP - General 04/04/13 06/19/13 Iglesia Little MD [address] [place] [address] PCP - General 01/31/13 04/03/13 Iglesia Little MD [address] [place], [place] [phone] PCP - General 01/18/13 01/30/13 Iglesia Little MD [address] [place], [place] [phone] PCP - General 12/17/11 01/17/13 documented as of this encounter
--- OUTSIDE RECORDS SUMMARY | 2024-11-04 23:59 | XMS_ITS | Encounter Summary ---
Author Organization [facility] Address [address] [place] [address]. [place] [address] [place] [address] Care Team Providers Care Firmware Software Verification Engineer Name Role Phone Rose Marie Norton SCIENTIFIC AFFAIRS MANAGER Primary Care Provider + Rose Marie Norton SCIENTIFIC AFFAIRS MANAGER Primary Care Provider + Md Generic [...] (Late st Contact Info) Description 01/18/2013 Abstract [facility] [address] [place] [address] Christin White MD [address] [facility] [address] [place] [address] Social History Tobacco Use Types Packs/Day Years [...] chronic documented in this encounter Care Teams Firmware Software Verification Engineer Relationship Specialty Start Date End Date Rose Marie Norton NP PCP - General 07/06/15 10/31/16 Rose Marie Norton SCIENTIFIC AFFAIRS MANAGER PCP - General 03/02/15 07/05/15 Tam Trevino MD PCP - General 12/18/14 Iglesia Little MD [address] [address] PCP - General 10/12/14 12/17/14 Iglesia Little MD [address] [place] [address] PCP - General 06/28/14 10/11/14 Iglesia Little MD [address] [place] [address] [place] [address] PCP - General 04/14/14 06/27/14 Iglesia Little MD [address] [place] [address] [place] [address] PCP - General 02/23/14 04/13/14 Iglesia Little MD [address] [place] [address] PCP - General 02/07/14 02/22/14 Iglesia Little MD [address] [place] [address] PCP - General 10/09/13 02/06/14 , Generic Conversion, PCP - General 10/06/13 , Generic Conversion, PCP - General 09/17/1310/05 , Generic Conversion, PCP - General 07/06/1309/16 , Generic Conversion, PCP - General 06/20/13 Iglesia Little MD [address] [place] [address] PCP - General 04/04/13 06/19/13 Iglesia Little MD [address] [place] [address] PCP - General 01/31/13 04/03/13 Iglesia Little MD [address] [place] [address] PCP - General 01/18/13 01/30/13 documented as of this encounter
--- OUTSIDE RECORDS SUMMARY | 2024-11-04 23:59 | XMS_ITS | Encounter Summary ---
Author Organization [facility] Address [address] [place] [address]. [place], [place] [address] [place] [address] Care Team Providers Care Enterostomal Nurse Name Role Phone Rose Marie Norton ELECTRON TUBE ASSEMBLER Primary Care Provider + Rose Marie Norton ELECTRON TUBE ASSEMBLER Primary Care Provider + Md Generic Madison [...] (Late st Contact Info) Description 11/12/2011 Abstract [facility] [address] [facility] [place], [place] [id number] Estuardo Marlow MD [address] [facility] [address] [place] [address] Social History Tobacco Use Types [...] unspecified documented in this encounter Care Teams Enterostomal Nurse Relationship Specialty Start Date End Date Rose Marie Norton ELECTRON TUBE ASSEMBLER PCP - General 07/06/15 10/31/16 Rose Marie Norton NP PCP - General 03/02/15 07/05/15 Tam Trevino MD PCP - General 12/18/14 Iglesia Little MD [address] [facility] 200 [place], [place] [phone]- PCP - General 10/12/14 12/17/14 Iglesia Little MD [address] [place], [place] [address] PCP - General 06/28/14 10/11/14 Iglesia Little MD [address] [place] [address]- PCP - General 04/14/14 06/27/14 Iglesia Little MD [address] [place] [address] PCP - General 02/23/14 04/13/14 Iglesia Little MD [address] [place] [address] PCP - General 02/07/14 02/22/14 Iglesia Little MD [address] [place] [address] PCP - General 10/09/13 02/06/14 , Generic Conversion, PCP - General 10/06/13 , Generic Conversion, PCP - General 09/17/1310/05 , Generic Conversion, PCP - General 07/06/1309/16 , Generic Conversion, PCP - General 06/20/13 Iglesia Little MD [address] [place] [address] PCP - General 04/04/13 06/19/13 Iglesia Little MD [address] [place] [address] PCP - General 01/31/13 04/03/13 Iglesia Little MD [address] [place] [address] PCP - General 01/18/13 01/30/13 Iglesia Little MD [address] [place] [address] PCP - General 12/17/11 01/17/13 Iglesia Little MD [address] [address] PCP - General 11/12/11 12/16/11 documented as of this encounter
--- OUTSIDE RECORDS SUMMARY | 2024-11-04 23:59 | XMS_ITS | Encounter Summary ---
Author Organization [facility] Address [facility]. [place], [place] [address] [place] [address] Care Team Providers Care Retail Sales Associate Seasonal Name Role Phone Rose Marie Norton FINANCIAL CONTROLLER Primary Care Provider + Rose Marie Norton FINANCIAL CONTROLLER Primary Care Provider + Md Generic Madison [...] (Late st Contact Info) Description 06/08/2001 Abstract [facility] [address] [facility] [place] [address] Tam Trevino MD Social History Tobacco Use [...] on filedocumented in this encounter Care Teams Retail Sales Associate Seasonal Relationship Specialty Start Date End Date Rose Marie Norton, FINANCIAL CONTROLLER PCP - General 07/06/15 10/31/16 Rose Marie Norton FINANCIAL CONTROLLER PCP - General 03/02/15 07/05/15 Tam Trevino MD PCP - General 12/18/14 Iglesia Little MD [address] [address] PCP - General 10/12/14 12/17/14 Iglesia Little MD [address]70 [facility] [address] [place] [address] PCP - General 06/28/14 10/11/14 Iglesia Little MD [address] [facility] [address] [facility] [place] [address] PCP - General 04/14/14 06/27/14 Iglesia Little MD [address] [place] [address] PCP - General 02/23/14 04/13/14 Iglesia Little MD [address] [place] [address] PCP - General 02/07/14 02/22/14 Iglesai Little MD [address] [place] [address] PCP - General 10/09/13 02/06/14 , Generic Conversion, PCP - General 10/06/13 , Generic Conversion, PCP - General 09/17/1310/05 , Generic Conversion, PCP - General 07/06/1309/16 , Generic Conversion, PCP - General 06/20/13 Iglesia Little MD [address] [place] [address] PCP - General 04/04/13 06/19/13 Iglesia Little MD [address] [place] [address] PCP - General 01/31/13 04/03/13 Iglesia Little MD [address] [place] [address] (Work) PCP - General 01/18/13 01/30/13 Iglesia Little MD [address] [place] [address] (Work) PCP - General 12/17/11 01/17/13 Iglesia Little MD [address] [address] PCP - General 11/12/11 12/16/11 Iglesia Little MD [address] [address] PCP - General 04/06/11 11/11/11 Iglesia Little MD [address] [address] PCP - General 03/29/11 04/05/11 documented as of this encounter
--- OUTSIDE RECORDS SUMMARY | 2024-11-04 23:59 | XMS_ITS | Encounter Summary ---
Author Organization [facility] Address [address] [place] [address]. [place] [address] [place] [address] Care Team Providers Care Tumbler Dyeing Machine Operator Name Role Phone Rose Marie Norton MILK VENDOR Primary Care Provider + Rose Marie Norton MILK VENDOR Primary Care Provider + Md Generic [place] [...] (Late st Contact Info) Description 04/03/2013 Abstract [facility] Family Medicine - [place] [address], [address] [place] [address] Iglesia Little MD [address] [place] [address] [address] [place] [address] Social History Tobacco Use Types Packs/Day Years [...] Oral Tablet; TAKE 1 TABLET DAILY; Therapy: (Recorded:[id number]) to Recorded; For: Hypertension (401.9); Dispense: 90 [...] Tissue) (729.5); Ordered By: Iglesia Little Perform: [facility] Due: 10Apr2013 2. Compr Metabolic Prof ( CMP ) Requested for: 03Apr2013 Ordered; For: Foot Pain (Soft Tissue) (729.5); Ordered By: Iglesia Little Perform: [facility] Due: 10Apr2013 3. Free T4 ( Thyroxine ) Requested for: 03Apr2013 Ordered; For: Foot Pain (Soft Tissue) (729.5); Ordered By: Iglesia Little Perform: [facility] Due: 10Apr2013 4. Lipid Profile Requested for: 03Apr2013 Ordered; For: Foot Pain (Soft Tissue) (729.5); Ordered By: Iglesia Little Perform: [facility] Due: 10Apr2013 5. Magnesium ( Mg ) Requested for: 03Apr2013 Ordered; For: Foot Pain (Soft Tissue) (729.5); Ordered By: Iglesia Little Perform: [facility] Due: 10Apr2013 6. Thyroid Stim Hormone ( TSH ) Requested for: [id number] Ordered; For: Foot Pain (Soft Tissue) (729.5); Ordered By: Iglesia Little Perform: [facility] Due: 10Apr2013 7. Total Triiodothyronine ( T3 ) Requested for: [id number] Ordered; For: Foot Pain (Soft Tissue) (729.5); Ordered By: Iglesia Little Perform: [facility] Due: 10Apr2013 8. Urinalysis ( UA ) Requested for: [id number] Ordered; For: Foot Pain (Soft Tissue) (729.5); Ordered By: Iglesia Little Perform: [facility] Due: 10Apr2013 9. Vitamin B12 And Folate Requested for: [id number] Ordered; For: Foot Pain (Soft Tissue) (729.5); Ordered By: Iglesia Little Perform: [facility] Due: 10Apr2013 10. Vitamin D 1, 25 - Dihydroxy Requested for: [id number] Ordered; For: Foot Pain (Soft Tissue) (729.5); Ordered By: Iglesia Little Perform: [facility] Due: 10Apr2013 Signatures Electronically signed by : Iglesia Little M.D.; Apr 03 2013 9:28AM (Author) CAPTAIN documented in this encounter Plan of Treatment [...] , TT-3 (04/04/2013 9:30 AM CDT) Pathologist [facility] T3 TOTAL 96 60 - 181 ng/dL [facility] TO EPIC CONVERSION Comment: Result Comment: TESTING PERFORMED AT [facility], A MEMBER OF THE [facility]. 04/04/2013 9:30 AM CDT 04/04/2013 9:30 AM CDT Narrative [facility] TO EPIC CONVERSION - 04/04/2013 3:35 PM CDT Result Communication: No patient communication needed at this time us Iglesia Little MD LABORATORY Final Result [facility] TO EPIC CONVERSION * VITAMIN B12 / FOLATE (04/04/2013 9:30 AM CDT) Pathologist [facility] VITAMIN B12 S/P/B 782 211 - 946 pg/mL [facility] TO EPIC CONVERSION FOLATE 11.2 7.3 - 26.1 ng/mL [facility] TO EPIC CONVERSION 04/04/2013 9:30 AM CDT 04/04/2013 9:30 AM CDT Narrative [facility] TO EPIC CONVERSION - 04/04/2013 3:33 PM CDT Result Communication: No patient communication needed at this time Iglesia Little MD LABORATORY Final Result Performing Organization Address City/[facility]/ZIP Co de Phone Number [facility] TO EPIC CONVERSION * MAGNESIUM (04/04/2013 9:30 AM CDT) Pathologist [facility] MAGNESIUM 1.8 1.70 - 2.55 mg/dL [facility] TO EPIC CONVERSION 04/04/2013 9:30 AM CDT 04/04/2013 9:30 AM CDT Narrative [facility] TO EPIC CONVERSION - 04/04/2013 3:34 PM CDT Result Communication: No patient communication needed at this time Iglesia Little MD LABORATORY Final Result Performing Organization Address City/[facility]/ZIP Co de Phone Number [facility] TO [...] MD LABORATORY Final Result Performing Organization Address [facility] Co de Phone Number [facility] TO EPIC CONVERSION * THYROID STIM HORMONE, TSH (04/04/2013 9:30 AM CDT) TSH 2.00 0.27 - 4.20 mIU/mL [facility] TO EPIC CONVERSION 04/04/2013 9:30 AM CDT 04/04/2013 9:30 AM CDT Narrative [facility] TO EPIC CONVERSION - 04/04/2013 3:34 PM CDT Result Communication: No patient communication needed at this time Iglesia Little MD LABORATORY Final Result Performing Organization Address [facility] de Phone Number [facility] TO [...] on filedocumented in this encounter Care Teams Tumbler Dyeing Machine Operator Relationship Specialty Start Date End Date Rose Marie Norton, MILK VENDOR PCP - General 07/06/15 10/31/16 Rose Marie Norton, MILK VENDOR PCP - General 03/02/15 07/05/15 Tam Trevino MD PCP - General 12/18/14 Iglesia Little MD [address] [place] [address] PCP - General 10/12/14 12/17/14 Iglesia Little MD [address] [place] [address] PCP - General 06/28/14 10/11/14 Iglesia Little MD [address] [place] [address] PCP - General 04/14/14 06/27/14 Iglesia Little MD [address] [place] [address] PCP - General 02/23/14 04/13/14 Iglesia Little MD [address] [place] [address] PCP - General 02/07/14 02/22/14 Iglesia Little MD [address] [place] [address] PCP - General 10/09/13 02/06/14 , Generic Conversion, MD PCP - General 10/06/13 , Generic Conversion, MD PCP - General 09/17/1310/05 , Generic Conversion, MD PCP - General 07/06/1309/16 , Generic Conversion, PCP - General 06/20/13 Iglesia Little MD [address] [address] PCP - General 04/04/13 06/19/13 Iglesia Little MD [address] [place], [place] [id number] PCP - General 01/31/13 04/03/13 documented as of this encounter
== END 2024-10-28 16:59 | disposition home or self-care (01) ==
PROVIDERS: Emergency Provider Emergency Medicine; PCP Nurse Practitioner Family
DX: J06.9 Acute upper respiratory infection, unspecified (principal); Z20.822 Contact with and (suspected) exposure to COVID-19; Z98.84 Bariatric surgery status; Z87.891 Personal history of nicotine dependence; Z90.710 Acquired absence of both cervix and uterus
CPT/HCPCS: 87637; 87651; 96372; 99283; J1885

== ENCOUNTER 2024-12-13 14:35 | Outpatient (CLI) | payer BC, SELFPAY ==
--- NOTE | ~2024-12-13 | XR_ITS ---
EXAMINATION:[id number]_CR DATE: 12/13/2024 14:57 INDICATION: Cervicalgia TECHNIQUE: AP, lateral, lateral swimmers and odontoid views of the cervical spine are provided. COMPARISON: None FINDINGS: Mild upper thoracic levocurvature. Cervical alignment is normal. Odontoid is intact. Normal atlantoa xial interval. Vertebral body heights are normal. Mild disc height loss at C5-C6. Remaining disc spac es are normal. There is multilevel mild cervical facet and uncovertebral osteoarthritis. Visualized a pices of lungs are clear.. Prevertebral soft tissues are normal. IMPRESSION: 1. Mild cervical spondylosis. Reviewed, dictated and finalized at location A. ARY CLERK [employer]
--- NOTE | ~2024-12-13 | XR_ITS ---
EXAMINATION: XR sacrum coccyx min 2V DATE: 12/13/2024 14:57 INDICATION: Sacrococcygeal disorder TECHNIQUE: AP view of the sacrum, AP view of the coccyx and lateral views of the sacrum and coccyx we re obtained. COMPARISON: None. FINDINGS: 5 mm anterolisthesis L4 on L5 with mild disc height loss and severe associated facet osteoarthritis. Sacral arches are intact. No fractures. Bilateral hip joint spaces are normal. Mild osteoarthritis th e bilateral sacroiliac joints. No erosions to suggest an inflammatory sacroiliitis. There are a few c orticated heterotopic ossicles project over the soft tissues of the buttocks. IMPRESSION: 1. 5 mm anterolisthesis L5 on S1 with mild disc height loss and severe facet osteoarthritis. 2. Mild bilateral sacral erect osteoarthritis. Otherwise unremarkable sacrum and coccyx.. Reviewed, dictated and finalized at location A. SYSTEMS ANALYST IMPRESSION: 1. 5 mm anterolisthesis L5 on S1 with mild disc height loss and severe facet os teoarthritis. 2. Mild bilateral sacral erect osteoarthritis. Otherwise unremarkable sacrum an d coccyx..
[2024-12-13 15:27] LABS: CRP < 0.5 mg/dL (<1.0)
[2024-12-13 15:46] LABS: Erythrocyte Sedimentation Rate 9 mm/hr (0-20)
[2024-12-14 05:49] LABS: Progesterone 0.5 ng/mL
== END 2024-12-13 14:36 | disposition home or self-care (01) ==
PROVIDERS: PCP Family Medicine; Referring Provider Nurse Practitioner Family; Visit Provider Family Medicine
DX: M53.3 Sacrococcygeal disorders, not elsewhere classified (principal); E34.9 Endocrine disorder, unspecified; M43.02 Spondylolysis, cervical region; M47.816 Spondylosis without myelopathy or radiculopathy, lumbar region; R29.890 Loss of height
CPT/HCPCS: 36415; 72040; 72220; 82672; 83001; 83002; 84144; 85652; 86038; 86039; 86140

== ENCOUNTER 2024-12-24 12:58 | Outpatient (CLI) | payer BC, SELFPAY ==
[2024-12-24 14:00] LABS: Syphilis IgG/IgM Antibody Negative (Negative)
--- OUTSIDE RECORDS SUMMARY | 2024-12-24 15:20 | XMS_ITS | Encounter Summary ---
Author Organization [facility] Healthcare Address [address] [place] [address] Care Team Providers Care Sheet Metal Operator Name Role Phone Neil Stinson MD Primary Care Provid er Reason for Visit * Reason Onset Date Comments Scheduling Appointments 12/17/2024 Reschedu le EMG appointment Encounter Details Date Type Department Care Team (Late st Contact Info) Description 12/17/2024 Telephone [facility] Medical Group Neurology [address] [place] [phone] Jaxon Hoffmann Si, MD [address] [place] [phone] Scheduling Appointments (Reschedule EMG appointment ) Social History Tobacco Use Types Packs/Day Years Used Date Smoking Tobacco: Former Cigarettes 0.5 15 1 990 - 2005 Smokeless Tobacco: Never Alcohol Use Standard Drinks/Week [...] on file Legal 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
--- OUTSIDE RECORDS SUMMARY | 2024-12-24 15:20 | XMS_ITS | Data Portability ---
Author Organization [place] - [facility] OFFICE Address [address] [place] [address] Assessment Encounter Date Assessment Date Assessment LastModified [...] Imaging None recorded. Medication Orders hydrochloro thiazide 12.5 mg capsule 2022 023 kwilliams [address] [facility] [id number], [address] [place] [place], [place], [id number], 17:06:14 hydrochloro thiazide 25 mg tablet 2021 022 kwilliams [address] [facility] [id number], [address] [place] [place], [place], [id number], 17:06:06 Patient TargetsNo targets recorded. Patient Instructions Encounter Date Encounter Id Patient Instructions Last Modified By Organization Details Last Modified Time 05/20/2021 [id number] Exercise advised Low cholesterol diet advised Low sodium diet advised [email or web address] Not available 05/20/2021 15:35:00 Patient was seen and evaluated by Sherron Drake [facility]. Plan of care was discussed with collaborating physician and note cosigned by Dr. Kaylee Cross. [email or web address] Not available 05/20/2021 15:35:15 08/24/2022 [id number] Exercise advised Low cholesterol diet advised Low sodium diet advised. [email or web address] Not available 08/24/2022 13:34:28 11/16/2022 [id number] Exercise advised Low cholesterol diet advised Low sodium diet advised. [email or web address] Not available 11/16/2022 16:45:06 Reason for Referral None Reported. Results Created Date Observation Date Name Description Value Unit Range Abnormal Flag Note LastModifiedBy Organization Detail LastModifiedTime 02/21/20 elect rocar diogr am No observ ation record ed. [email or web address] Not Available 2020 12:08:49 06/01/20 21 05/20/2021 [...] Address Organization Details Recorded Time Hyperlipide ly 86754814 Active 2022 John Mesto null, [place] - [facility] 3 14:15:41 Essential hypertensio n 14715648 Active 2015 Johnparish Flannery [place], [place] - [facility] 2 05:43:00 Gastroesoph ageal reflux disease 694871832 Active 2015 Alvaro Flannery [place] - [facility] 6 13:33:32 Anxiety 23470659 Active 2015 Alvaro [place]ann[place] [facility] 6 13:33:44 Obesity 654065539 Active 2015 Johnparish Flannery [place] [facility] 6 13:33:54 Pulmonary hypertensio n 16136659 Active 2016 Johnparish Flann[place] [facility] 7 18:13:54 Edema of lower extremity 900957114 Active 2016 Johnparish Flann[place] [facility] 7 18:14:06 Obstructive sleep apnea syndrome 23949264 Active 2016 Alvaro [place]ann[place] [facility] 2 05:42:53 Deep venous thrombosis of right lower extremity 6853993214352 05 Active 2016 Alvaro Flann[place] - [facility] 7 18:14:36 Pre-surgery evaluation Active 2018 Braydenhermes Jayski [facility], [place] - [facility] 9 14:42:02 Problem Notes None recorded. Procedures Surgical History Date Name Laterality Status Provider Name and Address Organization Details Recorded Time Appendectomy completed Alvaro Flannery [place] - [facility] 10/20/2016 13:34:22 Imaging Results Imaging Date Name Status LastModified by Organization Details LastModified Time 02/20/2021 electrocardiogram completed [email or web address] Informa tion not available 02/20/2021 12:08:49 05/20/2021 [...] [degF] 124 mm[Hg] 80 mm[Hg] Claude Wells [facility] 1 11:24:56 Date Recorded Body height Body mass index (BMI) Body weight Heart rate Respiratory rate Oxygen saturation Oxygen saturation in Arterial blood by Pulse oximetry Systolic blood pressure Diastolic blood pressure Provider Name and Address Organization Details Last Updated DateTime 1 160.02 cm 36.1 kg/m2 10944.8 4 g 59 /min 18 /min 98 % 98 % 110 mm[Hg] 74 mm[Hg] Tiffanie Rosas [facility] 1 11:44:00 Date Recorded Body weight Heart rate Oxygen saturation Oxygen saturation in Arterial blood by Pulse oximetry Systolic blood pressure Diastolic blood pressure Provider Name and Address Organization Details Last Updated DateTime 2 55687.6 6 g 61 /min 98 % 98 % 130 mm[Hg] 82 mm[Hg] Luanne Antonio [facility] 2 12:54:28 Date Recorded Body mass index (BMI) Body height Provider Name and Address Organization Details Last Updated DateTime 08/24/2022 31 kg/m2 160.02 cm Jose Umaña MD [address] [place], [address], [facility] 08/24/2022 13:31:55 Date Recorded Body height Body mass index (BMI) Body weight Heart rate Respiratory rate Oxygen saturation Oxygen saturation in Arterial blood by Pulse oximetry Systolic blood pressure Diastolic blood pressure Provider Name and Address Organization Details Last Updated DateTime 3 160.02 cm 30.3 kg/m2 45775.3 g 82 /min 16 /min 99 % 99 % 132 mm[Hg] 92 mm[Hg] Sheldon Addison [facility] 3 16:20:28 Date Recorded Body height Body mass index (BMI) Body weight Heart rate Respiratory rate Oxygen saturation Oxygen saturation in Arterial blood by Pulse oximetry Systolic blood pressure Diastolic blood pressure Provider Name and Address Organization Details Last Updated DateTime 3 160.02 cm 28.9 kg/m2 62245.5 6 g 82 /min 16 /min 94 % 94 % 118 mm[Hg] 78 mm[Hg] Sheldon Addison [facility] 3 17:09:11 Social History Question Answer Notes LastModified by Organizat ion Details LastModified Time Tobacco Smoking Status Former Smoker Alvaro Flannery [facility] 10/20/2016 13:36:39 Do You Or Have You [...] available 2015 13:36:34 Medical History Condition Response Hypertension Y Sleep Apnea Y GERD/Reflux Y Gynecological HistoryNo gynecological history recorded. Obstetrics History GPAL:G 0 P 0 0 0 0 Past Encounters Encounter ID Performer Location Encounter Start Date Encounter Closed Date Diagnosis/Indication Diagnosis SNOMED-CT Code Diagnosis ICD10 Code Diagnosis Note [id number] Jose Umaña MD [facility] [address] [place] [address] 10/22/2016 12:14:07 10/25/2016 10:21:47 Essential hypertension 48264846 I10 Chest pain 19378241 R07. 9 Had negative stress test Pulmonary hypertension 72332573 I27.2 Edema of l ower extremity 345696437 R60.0 Obstructiv e sleep apnea syndrome 81856214 G47.33 [id number] Jose Umaña MD [facility] [address] [place] [address] 11/15/2016 14:05:32 11/15/2016 15:54:27 Essential hypertension 28527656 I10 Chest pain 26170635 R07. 9 Had negative stress test Pulmonary hypertension 91903018 I27.2 Edema of l ower extremity 737521957 R60.0 Obstructiv e sleep apnea syndrome 08199371 G47.33 Deep venou s thrombosis of lower extremity 650834948 I82.401 [id number] Jose Umaña MD [facility] [address] [place] [address] 08/22/2017 15:45:01 08/23/2017 09:43:43 Essential hypertension 81618370 I10 Chest pain 50189202 R07. 9 Treadmill Myoview Stress test, has high [place] Risk score. Has Known CAD, or CAD risk equivalent . To look for any ischemia. Edema of l ower extremity 264886679 R60.0 Obstructiv e sleep apnea syndrome 01576347 G47.33 Deep venou s thrombosis of lower extremity 783134380 I82.401 11/16/16 VENOUS DOP/DUPLEX BOTH LEGS: Negative for deep vein thrombosis , bilateral lower extremitie s. [id number] Andre Spencer [facility] [address] [place] [address] 10/10/2017 16:26:23 10/11/2017 10:19:35 Essential hypertension 96091656 I10 Patient's blood pressure is {{well-con trolled* s omewhat well-contr olled not well-contr olled}} on present medical therapy. Patient is {{tolerati ng, without difficulty ,* having side effects with}} the current medication s. I have {{not made* made the following} } changes to the current regimen. {{ Patient is advised to maintain a blood pressure diary.*}} Patient was advised to eat a low-sodium diet (2 grams sodium or less daily). Chest pain 38291919 R07. 9 Pleuritic chest pain with dyspnea, now with recent diagnosis of pneumonia. Had Treadmill Nuclear Stress Test 10/03/17 : Negative stress test for ischemia. 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 Normal LV systolic function. Began ASA 81 mg qd 10/10/17. Obtain FLP. Needs to keep LDL less than 70, and HDL more than 40. Edema of l ower extremity 167476429 R60.0 Mild. Improved. Had 10/22/16 ECHOCARDIO GRAM REPORT: The estimated left ventricula r ejection fraction is 60-65% (normal). Diastolic filling reveals a pseudonorm al pattern (grade 2 diastolic dysfunctio n). Had 11/16/16 VENOUS DOP/DUPLEX BOTH LEGS: Negative for deep vein thrombosis , bilateral lower extremitie s. Continue diuretics. Obtain BMP, Mg. Obstructiv e sleep apnea syndrome 04818862 G47.33 Sleep study not performed yet. Obtain once pneumonia resolved in 1 month. [id number] [facility] OFFICE [address] [place] [address] 11/30/2018 13:43:30 11/30/2018 14:49:52 Chest pain 34024121 R07.9 ResolvedPt had pleuritic chest pain with dyspnea, it was with diagnosis of pneumonia. Had Treadmill Nuclear Stress Test 10/03/17 : Negative stress test for ischemia. 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 Normal LV systolic function. cont ASA 81 mg qd 10/10/17. Needs to keep LDL less than 70, and HDL more than 40. Essential hypertension 06192653 I10 Patient's blood pressure is {{well-con trolled* s omewhat well-contr olled not well-contr olled}} on present medical therapy. Patient is {{tolerati ng, without difficulty ,* having side effects with}} the current medication s. I have {{not made* made the following} } changes to the current regimen. {{ Patient is advised to maintain a blood pressure diary.*}} Patient was advised to eat a low-sodium diet (2 grams sodium or less daily). Edema of l ower extremity 145983623 R60.0 Mild. Improved. Had 10/22/16 ECHOCARDIO GRAM REPORT: The estimated left ventricula r ejection fraction is 60-65% (normal). Diastolic filling reveals a pseudonorm al pattern (grade 2 diastolic dysfunctio n). Had 11/16/16 VENOUS DOP/DUPLEX BOTH LEGS: Negative for deep vein thrombosis , bilateral lower extremitie s. Continue diuretics. Obtain BMP, Mg. Pre-surger y evaluation 283900621 Z01.818 pt could walk one flight of stairs withoutpro blemsECHOI f LV systolic function normal pt does have low risk for moderate risk surgery [id number] [facility] OFFICE [address] [place] [address] 03/15/2019 14:36:27 03/15/2019 16:06:01 Chest pain 22091788 R07.9 ResolvedPt had pleuritic chest pain with dyspnea, it was with diagnosis of pneumonia. Had Treadmill Nuclear Stress Test 10/03/17 : Negative stress test for ischemia. 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 Normal LV systolic function. cont ASA 81 mg qd 10/10/17. Needs to keep LDL less than 70, and HDL more than 40. Essential hypertension 25741521 I10 Patient's blood pressure is {{well-con trolled* s omewhat well-contr olled not well-contr olled}} on present medical therapy. Patient is {{tolerati ng, without difficulty ,* having side effects with}} the current medication s. I have {{not made* made the following} } changes to the current regimen. {{ Patient is advised to maintain a blood pressure diary.*}} Patient was advised to eat a low-sodium diet (2 grams sodium or less daily). Edema of l ower extremity 001223176 R60.0 Mild. Improved. Had 10/22/16 ECHOCARDIO GRAM REPORT: The estimated left ventricula r ejection fraction is 60-65% (normal). Diastolic filling reveals a pseudonorm al pattern (grade 2 diastolic dysfunctio n). Had 11/16/16 VENOUS DOP/DUPLEX BOTH LEGS: Negative for deep vein thrombosis , bilateral lower extremitie s. Continue di[place]tics. [place]. [id number] Brayden [facility] [address] [place] [address] 11/17/2020 14:54:00 11/17/2020 15:30:34 Chest pain 90890057 R07.9 ResolvedPt had pleuritic chest pain with dyspnea, it was with diagnosis of pneumonia. Had Treadmill Nuclear Stress Test 10/03/17 : Negative stress test for ischemia. 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 Normal LV systolic function. cont ASA 81 mg qd 10/10/17. Needs to keep LDL less than 70, and HDL more than 40. Essential hypertension 91060227 I10 Patient's blood pressure is {{well-con trolled* s omewhat well-contr olled not well-contr olled}} on present medical therapy. Patient is {{tolerati ng, without difficulty ,* having side effects with}} the current medication s. I have {{not made* made the following} } changes to the current regimen. {{ Patient is advised to maintain a blood pressure diary.*}} Patient was advised to eat a low-sodium diet (2 grams sodium or less daily). Edema of l ower extremity 112294315 R60.0 Mild. Improved. Had 10/22/16 ECHOCARDIO GRAM REPORT: The estimated left ventricula r ejection fraction is 60-65% (normal). Diastolic filling reveals a pseudonorm al pattern (grade 2 diastolic dysfunctio n). Had 11/16/16 VENOUS DOP/DUPLEX BOTH LEGS: Negative for deep vein thrombosis , bilateral lower extremitie s. Continue diuretics. Obtain BMP, Mg. Pre-surger y evaluation 485953635 Z01.818 pt could walk one flight of stairs withoutpro blemsif ECHO normal pt does have low risk for low risk surgery [id number] [facility] Tiffani peguero Office [address] [place] [address] 02/18/2021 11:20:12 02/18/2021 11:43:47 Chest pain 45705778 R07.9 ResolvedPt had pleuritic chest pain with dyspnea, it was with diagnosis of pneumonia. Had Treadmill Nuclear Stress Test 10/03/17 : Negative stress test for ischemia. 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 Normal LV systolic function. cont ASA 81 mg qd 10/10/17. Needs to keep LDL less than 70, and HDL more than 40. Essential hypertension 49353987 I10 Patient's blood pressure is {{well-con trolled* s omewhat well-contr olled not well-contr olled}} on present medical therapy. Patient is {{tolerati ng, without difficulty ,* having side effects with}} the current medication s. I have {{not made* made the following} } changes to the current regimen. {{ Patient is advised to maintain a blood pressure diary.*}} Patient was advised to eat a low-sodium diet (2 grams sodium or less daily). Edema of l ower extremity 055149416 R60.0 Mild. Improved. Had 10/22/16 ECHOCARDIO GRAM REPORT: The estimated left ventricula r ejection fraction is 60-65% (normal). Diastolic filling reveals a pseudonorm al pattern (grade 2 diastolic dysfunctio n). Had 11/16/16 VENOUS DOP/DUPLEX BOTH LEGS: Negative for deep vein thrombosis , bilateral lower extremitie s. Continue diuretics. Obtain BMP, Mg. Pre-surger y evaluation 321079760 Z01.818 pt could walk one flight of stairs without problems ECHO showed normal LV systolic function pt does have low risk for low risk surgery [id number] Sherron Drake [facility] Office [address] [facility] [place] [address] 05/20/2021 11:28:04 05/20/2021 12:21:53 Chest pain 45196855 R07.9 Resolved TDM 10/03/2017 : Negative stress test for ischemia. 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 Normal LV systolic function. Essential hypertension 28837970 I10 Well controlled without antihypert ensive therapy Edema of l ower extremity 251035354 R60.0 Resolved [id number] Jose Umaña MD [facility] [address] [place] [address] 08/24/2022 12:30:31 08/24/2022 13:42:03 Chest pain 60841803 R07.9 Will do stress echo TDM 10/03/2017 : Negative stress test for ischemia. 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 Normal LV systolic function. Essential hypertension 59007096 I10 Well controlled without antihypert ensive therapy but she has occasional high BP we will start her on HCTZ 25 mg daily Edema of l ower extremity 236393521 R60.0 Resolved Hyperlipidemia 24461523 E78.5 *Last LDL was 127 done on 09/07/20.P t dose not takes any statins.re peat lipid profile Palpitations 56652956 R0 0.2 will do holter monitor for 48 hours Obstructiv e sleep apnea syndrome 87018368 G47.33 will do sleep study [id number] Jose Umaña MD [facility] [address] [place] [address] 11/16/2022 16:16:09 11/16/2022 16:44:17 Chest pain 61283581 R07.9 stress test is negative 10/2022 TDM 10/03/2017 : Negative stress test for ischemia. 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 Normal LV systolic function. Essential hypertension 13595676 I10 continue HCTZ 25 mg daily Edema of l ower extremity 958815629 R60.0 Resolved Hyperlipidemia 51169196 E78.5 *Last LDL was 127 done on 09/07/20.P t dose not takes any statins.re peat lipid profile Palpitations 98317799 R0 0.2 resolved Obstructiv e sleep apnea syndrome 79428709 G47.33 will consider sleep study [id number] Jose Umaña MD [facility] [place] [place] [address] 01/06/2023 16:22:03 01/06/2023 17:29:49 Chest pain 02225067 R07.9 stress test is negative 10/2022 TDM 10/03/2017 : Negative stress test for ischemia. 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 Normal LV systolic function. Essential hypertension 97760114 I10 Will DC HCTZ 25 mg daily Edema of l ower extremity 873952389 R60.0 Resolved Hyperlipidemia 21284442 E78.5 *Last LDL was 127 done on 09/07/20.P t dose not takes any statins.re peat lipid profile Palpitations 04244774 R0 0.2 resolved Obstructiv e sleep apnea syndrome 20275179 G47.33 will consider sleep study Health Concerns Section Related Observation LastModified by Organization Detai ls LastModified Time None Recorded Concern Status LastModified by Organization Details LastModified Time None Recorded Advance Directives Directive None Recorded Payers Encounter Date Sequence Insurance Name Policy Number Policy Rice Covered Member ID Rice Member ID Guarantor Name 02/18/2021 1 [facility] - DOS PRIOR TO 2021 (MEDICAID REPLACEMENT - HMO) Maria Del Carmen C Ray [id number] Maria Del Carmen C Ray 05/20/2021 1 [facility] ON OR AFTER 05/07/21 (MEDICAID REPLACEMENT - HMO) Maria Del Carmen C Ray [id number] Maria Del Carmen C Ray 08/24/2022 1 [facility] ON OR AFTER 05/07/21 (MEDICAID REPLACEMENT - HMO) Maria Del Carmen C Ray [id number] Maria Del Carmen C Ray 11/16/2022 1 [facility] ON OR AFTER 05/07/21 (MEDICAID REPLACEMENT - HMO) Maria Del Carmen C Ray [id number] Maria Del Carmen C Ray 01/06/2023 1 [facility] ON OR AFTER 05/07/21 (MEDICAID REPLACEMENT - HMO) Maria Del Carmen Campbellnings [id number] Maria Del Carmen Castillo Ray Notes Date Note Type Note Provider Name and Address Organization Details Recorded Time 02/18/2021 text/html 02/18/2021 CC: Preop HPI 45 year old Woman with no significant past medical history, is here for follow-up. Pt states that she is going to be scheduled for bariatric surgery soon in [place], Now is loosing some weight. She had [...] seen last time by Dr. Palmer in 2017. She presented at that time since she [...] TG 76, TC 202, HDL 60, LDL 8531209/08/20: VIT D 13111/08/19: HGB A1C 5.4%09/08/20 CBC: [...] vein thrombosis , bilateral lower extremities. Brayden Chavarria [place], [place] - [facility] 02/18/2021 16:13:34 05/20/2021 [...] She does report she was seen in [facility] ED with abdominal pain and was discharged [...] TG 76, TC 202, HDL 60, LDL 53709: VIT D 13111/08/19: HGB A1C 5.4%09/08/20 CBC: [...] vein thrombosis , bilateral lower extremities. Sherron [facility], [place] - [facility] 05/20/2021 15:41:32 08/24/2022 text/html 08/24/22CC : Car diac follow up dyspnea on exertion and vubfvcsynjak23-guou-kee woman with h/o Hypertension, is here for [...] She does report she was seen in [facility] ED with abdominal pain and was discharged [...] past 09/08/20: VIT B12 532, FOLIC ACID 10. CMP: NA 140, K 4.3, CH 106, CO2 26, GL 105, BUN 16, CR 0.9, CA 9.2, AST 18, ALT 25, ALK PHOS 66, MG 1.8111/08/19 LIPID: TG 76, TC 202, HDL 60, LDL 8997809/08/20: VIT D 13111/08/19: HGB A1C 5.4%09/08/20 CBC: [...] , bilateral lower extremities. Jose Umaña MD [address] [place], [address], [facility] - [facility] 08/24/2022 13:35:03 11/16/2022 text/html 11/16/21CC : Car diac follow up, dyspnea on [id number]-urk woman with h/o Hypertension, hyperlipidemia, and obstructive [...] She does report she was seen in [facility] ED with abdominal pain and was discharged [...] TG 76, TC 202, HDL 60, LDL 5812209/08/20: VIT D 13111/08/19: HGB A1C 5.4%09/08/20 CBC: WBC 8.1, RBC 4.86, HGB 15.0, HCT 44.1, PLT 0360010/24/2017: WBC 10.9, HGB 12.2, HCT 38.2, PLT [...] , bilateral lower extremities. Jose Umaña MD [address] [place], [address], [place] - [facility] 11/16/2022 16:45:12 01/06/2023 text/html 01/06/23CC : Car diac follow up, dyspnea on [id number]-oey woman with h/o Hypertension, hyperlipidemia, and obstructive [...] She does report she was seen in [facility] ED with abdominal pain and was discharged [...] TG 76, TC 202, HDL 60, LDL 8881709/08/20: VIT D 13111/08/19: HGB A1C 5.4%09/08/20 CBC: WBC 8.1, RBC 4.86, HGB 15.0, HCT 44.1, PLT 1495410/24/2017: WBC 10.9, HGB 12.2, HCT 38.2, PLT [...] , bilateral lower extremities. Jose Umaña MD [address] [place], [address], [facility] - [facility] 01/06/2023 17:26:17 OBGyn Episode No OBEpisode recorded.
--- OUTSIDE RECORDS SUMMARY | 2024-12-24 15:20 | XMS_ITS | Patient Health Summary ---
Author Organization [facility] Address [address] [place] [address] Care Team Providers Care Test Examiner Name Role Phone Unavailable Primary Care Provider Unavailabl e Note from [facility],non-owned Affiliates and Associated Physician Practices is amultiple site organization consisting of ambulatory clinics and hospital sitesin [place], [place], [place] and [place]. This disclosure is being madepursuant to the Care Everywhere program and may not contain all information available regarding this patient. Last updated 18.[facility] Allergies * Amoxicillin(Rash,Unknown) -Medium Criticality * Iodine(Urticaria) -High Criticality Medications * Be aware that medications may not be up to date on this document. Alwaysverify current medications with the patient. * Multiple Vitamins-Minerals (CENTRUM SILVER PO) * CALCIUM CITRATE PO * nystatin (MYCOSTATIN) [id number] UNIT/GM cream(Started 03/10/2022) Apply to affected area 2 times daily 2 refills by 03/10/2023 * vitamin D, ergocalciferol, (Drisdol) 1.25 MG (88253 UT) capsule(Started 01/03/2023) Take 1 (one) capsule [...] Assigned at Female 11/25/2020 1:10 PM [employer] [facility] Gender Identity Female 11/25/2020 1:10 PM [employer] Sexual Orientation Straight 02/02/2021 4: 18 PM CDT Last Filed Vital Signs Vital Sign Reading Time Taken Comments Blood Pressure 150/100 03/16/2024 9:25 AM CDT Pulse 60 03/16/2024 9:00 AM CDT Temperature 36.3 C (97.3 F) 03/16/2024 9:00 AM CDT Respiratory Rate 16 03/16/2024 9:00 AM CDT [...] sleeve gastrectomy, Hyperparathyroidism due tovitamin D deficiency ([facility]/HCC) * VITAMIN D 25-HYDROXY(Performed 12/30/2022) Performed for Vitamin D deficiency, S/P laparoscopic sleeve gastrectomy, Hyperparathyroidism due tovitamin D deficiency ([facility]/HCC) * IRON + TRANSFERRIN PANEL(Performed 12/30/2022) Performed for S/P laparoscopic sleeve gastrectomy, Iron deficiency * CARDIAC RHYTHM STRIP ORDER(Performed 12/09/2022) * GROSS + MICRO EXAM (ILL)(Performed 12/08/2022) Performed for Gastroesophageal reflux disease, unspecified whether esophagitis present, S/P bariatric surgery * NC EGD FLEX TRANSORAL W BX SNGL OR [...] 03/09/2021) Performed for Morbid obesity (HCC) * NC LAP SLEEVE GASTRECTOMY(Performed 03/09/2021) Performed for Morbid obesity (HCC) * BLOOD TYPE VERIFICATION(Performed 03/06/2021) * TYPE + SCREEN PANEL(Performed 03/06/2021) Performed for Pre-op exam * SARS-COV-2 (COVID-19) IN HOUSE(Performed 03/06/2021) Performed for Pre-op exam * SARS-COV-2 (COVID-19) PANEL (SOIL)(Performed 03/06/2021) Performed for Pre-op exam * GROSS + MICRO EXAM (ILL)(Performed 02/23/2021) Performed for Gastroesophageal reflux disease, unspecified whether esophagitis present * NC EGD FLEX TRANSORAL W BX SNGL OR MULT(Performed 02/23/2021) Performed for Gastroesophageal reflux disease, unspecified whether esophagitis present * SARS-COV-2 (COVID-19) IN HOUSE(Performed 02/20/2021) Performed for Pre-operative laboratory examination * SARS-COV-2 (COVID-19) PANEL (SOIL)(Performed 02/20/2021) Performed for Pre-operative laboratory examination * GROSS + MICRO EXAM (ILL)(Performed 02/02/2021) Performed for Gastroesophageal reflux disease, unspecified whether esophagitis present * NC EGD FLEX TRANSORAL W BX SNGL OR [...] * (ABNORMAL) PTH INTACT+CALCIUM (12/30/2022 10:30 AM [employer]) Pathologist [facility] PTH Intact 39 15 - 65 pg/mL 01/01/2023 1:23 PM [employer] [facility] ([facility]) Calcium 10.1(H) 8.6 - 10.0 mg/dL 01/01/2023 1:23 PM [employer] [facility] ([facility]) Comment: Performed By: [place] [address] Cnc Cutting Operator: Zach Bello MD, PhD Blood BLOOD SPECIMEN / Unknown Lab Venipuncture / Unknown 12/30/2022 10:30 AM [employer] 12/30/2022 10:41 AM [employer] Vianey Llanes APRN-INDUSTRIAL ROOFER HELPER LAB - CHEMISTRY ORDERABLES Performing Organization Address [facility]/ZIP Co de Phone Number [facility]) [address] [place] [address] * VITAMIN B1 (12/30/2022 10:30 AM [employer]) [facility] Vitamin B1 Whole Blood 111 70 - 180 nmol/L 01/03/2023 7:30 AM [employer] [facility] ([facility]) Comment: INTERPRETIVE INFORMATION: Vitamin B1, Whole Blood This assay measures the concentration of thiamine diphosphate (TDP), the primary active form of vitamin B1. Approximately 90 percent of vitamin B1 present in whole blood is TDP. Thiamine and thiamine monophosphate, which comprise the remaining 10 percent, are not measured. This test was developed and its performance characteristics determined by [employer]. It has not been cleared or approved by the US Food and Drug Administration. This test was performed in a CLIA certified laboratory and is intended for clinical purposes. Performed By: [facility] [employer] [address] [place] [address] Cnc Cutting Operator: Zach Bello MD, PhD Blood BLOOD SPECIMEN / Unknown Lab Venipuncture / Unknown 12/30/2022 10:30 AM [employer] 12/30/2022 10:41 AM [employer] Vianey Llanes APRN-INDUSTRIAL ROOFER HELPER LAB - CHEMISTRY ORDERABLES Performing Organization Address City/[facility]/ZIP Co de Phone Number [facility]) [address] [place] [address] * (ABNORMAL) VITAMIN D 25-HYDROXY (12/30/2022 10:30 AM [employer]) Vitamin D, 25 Hydroxy 28.2(L) 30 - 100 ng/mL 12/30/2022 11:22 AM [employer] [facility] Blood BLOOD SPECIMEN / Unknown Lab Venipuncture / Unknown 12/30/2022 10:30 AM [employer] 12/30/2022 10:41 AM [employer] Narrative [facility] - 12/30/2022 11:22 AM [employer] Reference Values: The recommendation for 25-Hydroxy Vitamin D clinical decision points are as follows: Deficient < 20.0 ng/mL Insufficient 20.0-29.9 ng/mL Sufficient 30.0-100.0 ng/mL Potential Toxicity >100 ng/mL Reference: The Endocrine Society Clinical Practice Guidelines. 2011 If the 25-Hydroxy Vitamin D results are inconsistent with clinical evidence, it is recommended that follow-up testing using a method such as LC-MS/MS be performed to confirm the result. Vianey Llanes INTERNET SITE DESIGNER-INDUSTRIAL ROOFER HELPER LAB - CHEMISTRY ORDERABLES Performing Organization Address City/State/[facility] Co de Phone Number [facility] [address] * NICOTINE + METABOLITES BLOOD (12/30/2022 10:30 AM [employer]) Only the most recent of3 resultswithin the time period is included. Nicotine <5 ng/mL 01/04/2023 1:35 AM [facility] ([facility]) Comment: Consistent with abstinence from nicotine-containing products for at least 1 week. INTERPRETIVE INFORMATION: Nicotine and Metabolites, Serum or Plasma, Quantitative Methodology: Quantitative Liquid Chromatography-Tandem Mass Spectrometry Positive cutoff: 5 ng/mL For medical purposes only; not valid for forensic use. This test is designed to evaluate recent use of nicotine-containing products. Passive and active exposure cannot be discriminated definitively, although a cutoff of 10 ng/mL cotinine is frequently used for surgery qualification purposes. For smoking cessation programs or compliance testing, the absence of expected drug(s) and/or drug metabolite(s) may indicate non-compliance, inappropriate timing of specimen collection relative to drug administration, poor drug absorption, or limitations of testing. This test cannot distinguish between use of tobacco and purified nicotine products. The concentration value must be greater than or equal to the cutoff to be reported as positive. This test was developed and its performance characteristics determined by [facility]. It has not been cleared or approved by the US Food and Drug Administration. This test was performed in a CLIA certified laboratory and is intended for clinical purposes. Performed By: [facility] [address] [place] [address] Cnc Cutting Operator: Zach Bello MD, PhD Cotinine <5 ng/mL 01/04/2023 1:35 AM [employer] [facility]) Blood BLOOD SPECIMEN / Unknown Lab Venipuncture / Unknown 12/30/2022 10:30 AM [employer] 12/30/2022 10:41 AM [employer] Raisa Schmidt MD LAB - CHEMISTRY ORDERABLES [facility]) [address] * IRON + TRANSFERRIN PANEL (12/30/2022 10:30 AM [employer]) Pathologist [facility] Iron 98 50 - 170 ug/dL 12/30/2022 11:08 AM [facility] Transferrin 275 180 - 382 mg/dL 12/30/2022 11:08 AM [facility] TIBC Calculated 344 261 - 497 ug/dL 12/30/2022 11:08 AM [facility] Iron Saturation % 29 11 - 45 % 12/30/2022 11:08 AM [facility] Blood BLOOD SPECIMEN / Unknown Lab Venipuncture / Unknown 12/30/2022 10:30 AM [employer] 12/30/2022 10:41 AM [employer] Vianey Llanes INTERNET SITE DESIGNER-INDUSTRIAL ROOFER HELPER LAB - CHEMISTRY ORDERABLES [facility] [address] * CARDIAC RHYTHM STRIP ORDER (12/09/2022 12:15 PM [employer]) Only the most recent of2 resultswithin the time period is included. Narrative 12/09/2022 12:15 PM [employer] Ordered by an unspecified provider. Scanned Document CARDIAC SERVICES ORD ERABLES * GROSS + MICRO EXAM (ILL) (12/08/2022 9:16 AM [facility]) Only the most recent of4 resultswithin the time period is included. Case Report Surgical Pathology Report Case: [id number] Authorizing Provider: Raisa Schmidt MD Collected: 12/08/2022 09:16 AM Ordering Location: [facility] INTRAOP Received: 12/08/2022 02:21 PM Pathologist: Chuckie Lujan MD Specimen: Antrum Biopsy, Antrum Biopsy to rule out H. pylori 12/09/2022 11:00 AM [facility] Final Diagnosis Stomach, antrum, biopsy: - Fragments of antral mucosa with no histopathologic abnormality - No Helicobacter pylori organisms identified (H&E exam) 12/09/2022 11:00 AM [facility] Microscopic Description and Comment Microscopic examination is performed and substantiates the above diagnosis. 12/09/2022 11:00 AM [facility] Clinical History Gastroesophageal reflux disease, status post bariatric surgery Findings: - normal duodenum -normal gastric antrum -evidence of sleeve gastrectomy initiated 8 cm proximal to the pylorus with no evidence of tight angulation at the incisura and no retained fundus -no hiatal hernia -normal Z-line -normal esophagus -normal cords 12/09/2022 11:00 AM [facility] Gross Description The requisition [...] in cassette A1. AW 12/09/2022 11:00 AM [facility] Disclaimer The performance characteristics of all immunohistochemical and indirect immunofluorescence stains (if any) cited in this report were determined by the Histopathology Laboratory of [facility]. Some of these tests were developed by [...] H&E slides and special stains prepared at [facility], [place]. [address] (CLIA# [id number]) unless otherwise specified. This case was interpreted by the [facility] Department of Pathology. When applicable, select reference laboratory testing is performed at the [facility], [address] [place] [address]. 12/09/2022 11:00 AM [facility] [facility] Embedded Images 12/09/2022 11:00 AM [employer] [employer] [facility] Pathology/Cytology GASTRIC ANTRAL BIOPSY SPECIMEN / Unknown 12/08/2022 9:16 AM [facility] 12/08/2022 2:21 PM [facility] Comment:Pre-op diagnosis: Gastroesophageal reflux disease, unspecified whether esophagitis present [K21.9] S/P bariatric surgery [Z98.84] Raisa Schmidt MD LAB - PATHOLOGY/ CYTOLOGY ORDERABLES Performing Organization Address [facility] Co de Phone Number [facility] [address] * GLUCOSE - POINT OF CARE (03/10/2021 11:41 AM CDT) Only the most recent of8 resultswithin the time period is included. Glucose WB/POC 100 70 - 125 mg/dL 03/10/2021 11:45 AM CDT [facility] Specimen Type Arterial/C apillary 03/10/2021 11:45 AM CDT [facility] Blood BLOOD SPECIMEN / Unknown 03/10/2021 11:41 AM CDT 03/10/2021 11:45 AM CDT Rehan Mendoza MD LAB - POINT OF CARE ORDERABLES Performing Organization Address [facility] Co de Phone Number [facility] [address] * (ABNORMAL) CBC W AUTO DIFFERENTIAL (03/10/2021 4:13 AM CDT) Only the most recent of2 resultswithin the time period is included. WBC 10.7(H) 4.0 - 10.0 x10E9/L 03/10/2021 4:37 AM [facility] RBC 4.37 3.93 - 5.22 x10E12/L 03/10/2021 4:37 AM [facility] Hemoglobin 13.3 11.2 - 15.7 gm/dL 03/10/2021 4:37 AM [facility] Hematocrit 39.7 34.1 - 44.9 % 03/10/2021 4:37 AM [facility] MCV 90.8 78.0 - 100.0 fl 03/10/2021 4:37 AM [facility] MCH 30.4 25.6 - 34.0 pg 03/10/2021 4:37 AM [facility] MCHC 33.5 32.3 - 36.5 gm/dL 03/10/2021 4:37 AM [facility] RDW 13.3 11.6 - 14.4 % 03/10/2021 4:37 AM [facility] MPV 10.1 9.4 - 12.4 fl 03/10/2021 4:37 AM [facility] Platelet Count 243 163 - 369 x10E9/L 03/10/2021 4:37 AM [facility] Neutrophils % 74.0 40.0 - 75.0 % 03/10/2021 4:37 AM [facility] Lymphocytes % 19.2(L) 19.3 - 53.1 % 03/10/2021 4:37 AM [facility] Monocytes % 6.6 4.7 - 12.5 % 03/10/2021 4:37 AM [facility] Eosinophils % 0.0(L) 0.7 - 7.0 % 03/10/2021 4:37 AM [facility] Basophils % 0.1 0.1 - 1.2 % 03/10/2021 4:37 AM [facility] Immature Granulocytes 0.1 0 - 0.5 % 03/10/2021 4:37 AM [facility] Neutrophil Absolute 7.88(H) 1.56 - 6.13 x10E9/L 03/10/2021 4:37 AM CDT [facility] Lymphocytes Absolute 2.05 1.18 - 3.74 x10E9/L 03/10/2021 4:37 AM CDT [facility] Monocytes Absolute 0.70 0.24 - 0.86 x10E9/L 03/10/2021 4:37 AM CDT [facility] Eosinophils Absolute 0.00(L) 0.04 - 0.54 x10E9/L 03/10/2021 4:37 AM CDT [facility] Basophils Absolute 0.01 0.01 - 0.08 x10E9/L 03/10/2021 4:37 AM CDT [facility] Immature Granulocytes Absolute 0.01 0 - 0.03 x10E9/L 03/10/2021 4:37 AM CDT [facility] nRBC Auto 0 <=0 /100 WBC 03/10/2021 4:37 AM CDT [facility] nRBC Absolute 0.00 <=0 x10E9/L 03/10/2021 4:37 AM T [facility] Blood BLOOD SPECIMEN / Unknown Lab Venipuncture / Unknown 03/10/2021 4:13 AM CDT 03/10/2021 4:33 AM CDT Rehan Mendoza MD LAB - HEMATOLOGY ORD ERABLES Performing Organization Address City/State/[facility] Co de Phone Number [facility] [address] * (ABNORMAL) COMPREHENSIVE METABOLIC PANEL (03/10/2021 4:13 AM CDT) Only the most recent of2 resultswithin the time period is included. [facility] Signature Glucose 101 70 - 125 mg/dL 03/10/2021 4:57 AM CDT [facility] Sodium 139 136 - 145 mmol/L 03/10/2021 4:57 AM CDT [facility] Potassium 3.5 3.4 - 4.5 mmol/L 03/10/2021 4:57 AM CDT [facility] Chloride 106 98 - 107 mmol/L 03/10/2021 4:57 AM CDT [facility] CO2 22 22 - 29 mmol/L 03/10/2021 4:57 AM T [facility] Calcium 8.7 8.4 - 10.2 mg/dL 03/10/2021 4:57 AM CDT [facility] Anion Gap 15 10 - 20 mmol/L 03/10/2021 4:57 AM CDT [facility] BUN 8.7(L) 9.8 - 20.1 mg/dL 03/10/2021 4:57 AM CDT [facility] Creatinine 0.91 0.57 - 1.11 mg/dL 03/10/2021 4:57 AM CDT [facility] eGFR by MDRD >60 >60 mL/min/1.7 3m2 03/10/2021 4:57 AM CDT [facility] eGFR by MDRD >60 >60 mL/min/1.7 3m2 03/10/2021 4:57 AM CDT [facility] Alkaline Phosphatase 47 40 - 150 U/L 03/10/2021 4:57 AM CDT [facility] ALT 54 5 - 55 U/L 03/10/2021 4:57 AM CDT [facility] AST 52(H) 5 - 34 U/L 03/10/2021 4:57 AM T [facility] Protein Total 6.2(L) 6.4 - 8.3 gm/dL 03/10/2021 4:57 AM CDT [facility] Albumin 3.4(L) 3.5 - 5.0 gm/dL 03/10/2021 4:57 AM CDT [facility] Globulin Total 2.8 2.6 - 4.0 gm/dL 03/10/2021 4:57 AM CDT [facility] Albumin/Globulin Ratio 1.2 0.9 - 1.6 03/10/2021 4:57 AM CDT [facility] Bilirubin Total 0.6 0.2 - 1.2 mg/dL 03/10/2021 4:57 AM T [facility] Blood BLOOD SPECIMEN / Unknown Lab Venipuncture / Unknown 03/10/2021 4:13 AM CDT 03/10/2021 4:33 AM CDT Rehan Mendoza MD LAB - CHEMISTRY KARLEE AVINA [facility] Organization Address City/State/[facility] Co de Phone Number [facility] [address] * PHOSPHORUS BLOOD (03/10/2021 4:13 AM CDT) Only the most recent of2 resultswithin the time period is included. Phosphorus 2.5 2.3 - 4.7 mg/dL 03/10/2021 4:58 AM CDT [facility] Blood BLOOD SPECIMEN / Unknown Lab Venipuncture / Unknown 03/10/2021 4:13 AM CDT 03/10/2021 4:33 AM CDT Rehan Mendoza MD LAB - CHEMISTRY KARLEE AVINA Performing Organization Address City/[facility]/ZIP Co de Phone Number [facility] [address] [place] [address] * MAGNESIUM BLOOD (03/10/2021 4:13 AM CDT) Only the most recent of3 resultswithin the time period is included. Magnesium 2.1 1.6 - 2.6 mg/dL 03/10/2021 4:58 AM CDT [facility] Blood BLOOD SPECIMEN / Unknown Lab Venipuncture / Unknown 03/10/2021 4:13 AM CDT 03/10/2021 4:33 AM CDT Rehan Mendoza MD LAB - CHEMISTRY KARLEE AVINA Performing Organization Address [facility] Co de Phone Number [facility] [address] [place] [address] * BLOOD TYPE VERIFICATION (03/06/2021 7:14 AM CDT) ABO Rh O POS 03/06/2021 8:5 9 AM CDT [facility] Blood Bank BLOOD SPECIMEN / Unknown Lab Venipuncture / Unknown 03/06/2021 7:14 AM CDT 03/06/2021 7:17 AM CDT Aysha Evans MD LAB - BLOOD BANK ORD ESHA Performing Organization Address [facility] Co de Phone Number [facility] [address] [place] [address] * TYPE + SCREEN PANEL (03/06/2021 7:12 AM CDT) ABO Rh O POS 03/06/2021 9:20 AM CDT [facility] Antibody Screen NEG 9:20 AM CDT [facility] Blood Bank BLOOD SPECIMEN / Unknown Lab Venipuncture / Unknown 03/06/2021 7:12 AM CDT 03/06/2021 7:17 AM CDT Aysha Evans MD LAB - BLOOD BANK ORD ERABLES [facility] [address] [place], [place] [id number] [place] [address] * SARS-COV-2 (COVID-19) IN HOUSE (03/06/2021 6:11 AM CDT) Only the most recent of3 resultswithin the time period is included. Pathologist [facility] COVID-19 PCR Not detected Not detected 03/07/2021 5:24 AM CDT [facility] Microbiology SPECIMEN FROM NASOPHARYNGEAL STRUCTURE / Unknown Collection / Unknown 03/06/2021 6:11 AM CDT 03/06/2021 8:43 AM CDT Narrative [facility] - 03/07/2021 5:24 AM CDT This nucleic acid amplification assay performance was validated by [facility]. This test has been [...] Mendoza MD LAB - MICROBIOLOGY O RDERABLES [facility] [address] [place] [address], [facility] [phone]
--- OUTSIDE RECORDS SUMMARY | 2024-12-24 15:20 | XMS_ITS | Clinical Summary ---
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
--- OUTSIDE RECORDS SUMMARY | 2024-12-24 15:20 | XMS_ITS | Clinical Summary ---
Author Organization [facility] Address [address] [place] [address] Care Team Providers Care Technology Professional Name Role Phone Juanis Richards NP Primary Care Provider Allergies Active Allergy Reactions Criticality Noted Date [...] Department Care Team Description 10/28/2024 9:00 PM CHIEF POWER DISPATCHER - 10/28/2024 11:34 PM CHIEF POWER DISPATCHER Emergency [facility] [place] [address] Mary Gant MD Sore Throat; Diarrhea Discharge [...] Comments Blood Pressure 167/99 10/28/2024 10:25 PM CHIEF POWER DISPATCHER Pulse 58 10/28/2024 10:25 PM CHIEF POWER DISPATCHER Temperature 37 C (98.6 F) 10/28/2024 8:18 PM CHIEF POWER DISPATCHER Respiratory Rate 16 10/28/2024 10:25 PM CHIEF POWER DISPATCHER Oxygen Saturation 99% 10/28/2024 10:25 PM CHIEF POWER DISPATCHER Inhaled Oxygen Concentration - - Weight 72.6 kg (160 lb) 10/28/2024 8:18 PM CHIEF POWER DISPATCHER Height 160 cm (5' 3 ) 10/28/2024 8:18 PM CHIEF POWER DISPATCHER Body Mass Index 28.34 10/28/2024 8:18 PM CHIEF POWER DISPATCHER Plan of Treatment Health Maintenance Due Date [...] Screening Colonoscopy (10 Years) 08/09/2029 08/09/2019 Meningococcal B Vaccine Aged Out No l onger eligible based on patient's age to complete this topic Meningococcal Vaccine Aged Out No diana denae [...] A & B STAT 10/28/2024 9:35 PM CHIEF POWER DISPATCHER CORONAVIRUS (COVID 19) STAT 10/28/2024 9:35 PM CHIEF POWER DISPATCHER STREP A RAPID STAT 10/28/2024 9:35 PM CHIEF POWER DISPATCHER HIV 1 ANTIGEN(S), WITH HIV-1 AND HIV-2 ANTIBODIES STAT 10/28/2024 9:35 PM CHIEF POWER DISPATCHER HETEROPHILE ANTIBODIES,SCREEN STAT 10/28/2024 9:35 PM CHIEF POWER DISPATCHER HC URINALYSIS AUTO W/O MICRO STAT 10/28/2024 9:35 PM CHIEF POWER DISPATCHER COMPREHENSIVE METABOLIC PANEL STAT 10/28/2024 9:35 PM CHIEF POWER DISPATCHER CBC W/DIFF AUTOMATED STAT 10/28/2024 9:35 PM CHIEF POWER DISPATCHER XR CHEST PORTABLE STAT 10/28/2024 8:3 9 PM CHIEF POWER DISPATCHER MAMMOGRAM GENERIC (SCAN ORDER) 08/19/2020 LIPID PANEL Routine 12/08/2018 9:28 AM CHIEF POWER DISPATCHER Essential hypertension from Last 3 Months or Most Recently Relevant to Health Maintenance Results * CORONAVIRUS (COVID 19) (10/28/2024 9:35 PM CHIEF POWER DISPATCHER) Pathologist [facility] CORONAVIRUS SARS COV 2 RNA NEGATIVE NEGATIVE 10/28/2024 10:10 PM CHIEF POWER DISPATCHER [facility] Comment: NEGATIVE RESULTS DO [...] SARS-COV-2. SPECIMEN TYPE NASAL 10/28/2024 9:29 PM CHIEF POWER DISPATCHER [facility] NASAL STRUCTURE / Unknown 10/28/2024 9:35 PM CHIEF POWER DISPATCHER Pam MAY MICROBIOLOGY - GENERAL ORDERAB LES Final Result [facility] [address] [place] [address], [place] [phone] * HIV 1 ANTIGEN(S), WITH HIV-1 AND HIV-2 ANTIBODIES (10/28/2024 9:35 PM CHIEF POWER DISPATCHER) [facility] HIV 1/2 AB+ HIV1 P24 AG NON-REACTI VE NON-REACTI VE 10/28/2024 11:22 PM CHIEF POWER DISPATCHER [facility] 10/28/2024 9:35 PM CHIEF POWER DISPATCHER Mary Gant MD LABORATORY Final Resul t [facility] [address] [place] [address], [place] [phone] * INFLUENZA A & B (10/28/2024 9:35 PM CHIEF POWER DISPATCHER) SPECIMEN TYPE SWAB 10/28/2024 10:10 PM CHIEF POWER DISPATCHER [facility] INFLUENZA A NEGATIVE NEGATIVE 10/28/2024 10:10 PM CHIEF POWER DISPATCHER [facility] INFLUENZA B NEGATIVE NEGATIVE 10/28/2024 10:10 PM CHIEF POWER DISPATCHER [facility] Comment: Interpretation: Negative for [...] NASAL STRUCTURE / Unknown 10/28/2024 9:35 PM CHIEF POWER DISPATCHER Pam MAY MICROBIOLOGY - GENERAL ORDERAB LES Final Result [facility] [address] [place] [address], [place] [phone] * (ABNORMAL) URINALYSIS (10/28/2024 9:35 PM CHIEF POWER DISPATCHER) SPECIMEN TYPE URINE CLEAN CATCH 10/28/2024 9:34 PM CHIEF POWER DISPATCHER [facility] COLOR (U) YELLOW 10/28/2024 9:59 PM CHIEF POWER DISPATCHER [facility] TRANSPARENCY CLEAR 10/28/2024 9:59 PM [facility] SPECIFIC GRAVITY (U) 1.037(H) 1.001 - 1.030 10/28/2024 9:59 PM [facility] U PH 6.5 5.0 - 9.0 10/28/2024 9:59 PM [facility] LEUKOCYTES (U) NEGATIVE NEGATIVE 10/28/2024 9:59 PM CHIEF POWER DISPATCHER [facility] NITRITES NEGATIVE NEGATIVE 10/28/2024 9:59 PM [facility] PROTEIN RANDOM (U) 30(H) <30 MG/DL 10/28/2024 9:59 PM [facility] GLUCOSE (U) NORMAL NORMAL MG/DL 10/28/2024 9:59 PM [facility] KETONES MG/DL (U) NEGATIVE NEGATIVE MG/DL 10/28/2024 9:59 PM [facility] UROBILINOGEN 4.0(A) NORMAL MG/DL 10/28/2024 9:59 PM [facility] BILIRUBIN (U) NEGATIVE NEGATIVE MG/DL 10/28/2024 9:59 PM [facility] BLOOD (U) 1+(A) NEGATIVE 10/28/2024 9:59 PM [facility] MUCUS FEW /LPF 10/28/2024 9:59 PM [facility] WBC/HPF 4 <6 /HPF 10/28/2024 9:59 PM [facility] RBC/HPF 11(H) <6 /HPF 10/28/2024 9:59 PM [facility] SQUAMOUS EPITHELIALS RARE /HPF 10/28/2024 9:59 PM [facility] URINE SPECIMEN OBTAINED BY CLEAN CATCH PROCEDURE / Unknown 10/28/2024 9:35 PM CHIEF POWER DISPATCHER us Pam MAY URINE ORDERABLES Final Result Performing Organization Address City/[facility]/ZIP Co de Phone Number [facility] [address] [place] [address], [place] [phone] * STREP A RAPID (10/28/2024 9:35 PM CHIEF POWER DISPATCHER) SPECIMEN TYPE THROAT 10/28/2024 9:29 PM CHIEF POWER DISPATCHER [facility] RAPID STREP TEST NEGATIVE NEGATIVE 10/28/2024 10:10 PM CHIEF POWER DISPATCHER [facility] STRUCTURE OF ANTERIOR PORTION OF NECK / Unknown 10/28/2024 9:35 PM CHIEF POWER DISPATCHER us Pam MAY MICROBIOLOGY - GENERAL ORDERAB LES Final Result Performing Organization Address City/[facility]/ZIP Co de Phone Number [facility] [address] [place] [address], [place] [phone] * (ABNORMAL) COMPREHENSIVE METABOLIC PANEL (10/28/2024 9:35 PM CHIEF POWER DISPATCHER) GLUCOSE 89 70 - 99 MG/DL 10/28/2024 10:17 PM CHIEF POWER DISPATCHER [facility] BUN 28(H) 7 - 18 MG/DL 10/28/2024 10:17 PM CHIEF POWER DISPATCHER [facility] CREATININE S/P/B 1.08(H) 0.55 - 1.02 MG/DL 10/28/2024 10:17 PM CHIEF POWER DISPATCHER [facility] SODIUM S/P/B 140 136 - 145 MMOL/L 10/28/2024 10:17 PM CHIEF POWER DISPATCHER [facility] POTASSIUM S/P/B 4.0 3.5 - 5.1 MMOL/L 10/28/2024 10:17 PM CHIEF POWER DISPATCHER [facility] CHLORIDE S/P/B 107 97 - 115 MMOL/L 10/28/2024 10:17 PM [facility] CO2 30.2 21 - 32 MMOL/L 10/28/2024 10:17 PM [facility] CALCIUM S/P/B 8.7 8.5 - 10.1 MG/DL 10/28/2024 10:17 PM [facility] BILIRUBIN TOTAL S/P/B 0.4 0.2 - 1.2 MG/DL 10/28/2024 10:17 PM [facility] Comment: THIS ASSAY IS NOT RECOMMENDED FOR PATIENTS UNDERGOING TREATMENT WITH ELTROMBOPAG DUE TO THE POTENTIAL FOR FALSELY ELEVATED RESULTS. TOTAL PROTEIN S/P/B 6.8 6.4 - 8.2 G/DL 10/28/2024 10:17 PM [facility] ALBUMIN S/P/B 3.6 3.4 - 5.0 G/DL 10/28/2024 10:17 PM [facility] AST 20 15 - 37 U/L 10/28/2024 10:17 PM [facility] ALT 26 14 - 55 U/L 10/28/2024 10:17 PM [facility] ALKALINE PHOSPHATASE S/P/B 84 50 - 136 U/L 10/28/2024 10:17 PM [facility] ANION GAP 2.8 2 - 10 MMOL/L 10/28/2024 10:17 PM [facility] BUN CREATININE RATIO 25.9 6 - 26 10/28/2024 10:17 PM [facility] A/G RATIO 1.1 1.0 - 2.0 RATIO 10/28/2024 10:17 PM [facility] GFR ESTIMATE 63(L) >90 ML/MIN/1.7 3 M2 10/28/2024 10:17 PM [facility] Comment: NOTE: eGFR is not calculated for patients <18 years of age or gender unknown. This is an estimated GFR calculation using the new CKD EPI creatinine equation without race and so does not require a correction factor for race. This estimated GFR should not be used for calculating drug doses. 10/28/2024 9:35 PM CHIEF POWER DISPATCHER Pam MAY LABORATORY Final Result [facility] [address] [place] [address], [place] [phone] * HETEROPHILE ANTIBODIES,SCREEN (10/28/2024 9:35 PM CHIEF POWER DISPATCHER) Pathologist [facility] MONO TEST NEGATIVE NEGATIVE 10/29/2024 1:49 PM CHIEF POWER DISPATCHER [facility] 10/28/2024 9:35 PM CHIEF POWER DISPATCHER Pam MAY LABORATORY Final Result Performing Organization Address City/[facility]/ZIP Co de Phone Number [facility] [address] [place] [address], [place] [phone] * (ABNORMAL) CBC W/DIFF AUTOMATED (10/28/2024 9:35 PM CHIEF POWER DISPATCHER) [facility] WBC 10.18 4.5 - 11.0 x10'3/uL 10/28/2024 9:55 PM CHIEF POWER DISPATCHER [facility] RBC 4.40 4.20 - 5.40 x10'6/uL 10/28/2024 9:55 PM CHIEF POWER DISPATCHER [facility] HGB 14.2 12.0 - 16.0 G/DL 10/28/2024 9:55 PM CHIEF POWER DISPATCHER [facility] HCT 42.7 38.0 - 48.0 % 10/28/2024 9:55 PM CHIEF POWER DISPATCHER [facility] MCV 97.0 81.0 - 99.0 FL 10/28/2024 9:55 PM CHIEF POWER DISPATCHER [facility] MCH 32.3(H) 27.0 - 31.0 PG 10/28/2024 9:55 PM CHIEF POWER DISPATCHER [facility] MCHC 33.3 32.0 - 36.0 G/DL 10/28/2024 9:55 PM CHIEF POWER DISPATCHER [facility] RDW 12.9 11.5 - 14.5 % 10/28/2024 9:55 PM CHIEF POWER DISPATCHER [facility] PLT 224 130 - 400 x10'3/uL 10/28/2024 9:55 PM CHIEF POWER DISPATCHER [facility] MPV 9.9 9.3 - 12.2 FL 10/28/2024 9:55 PM CHIEF POWER DISPATCHER [facility] DIFFERENTIAL TYPE AUTOMATED DIFFERENTIAL 10/28/2024 9:55 PM CHIEF POWER DISPATCHER [facility] NEUTROPHILS % 60.2 % 10/28/2024 9:55 PM CHIEF POWER DISPATCHER [facility] LYMPHOCYTES % 32.7 % 10/28/2024 9:55 PM [facility] MONOCYTES % 5.4 % 10/28/2024 9:55 PM CHIEF POWER DISPATCHER [facility] EOSINOPHILS 0.7 % 10/28/2024 9:55 PM CHIEF POWER DISPATCHER [facility] BASOPHILS 0.5 % 10/28/2024 9:55 PM CHIEF POWER DISPATCHER [facility] IMMATURE GRANS % 0.5 % 10/28/20 9:55 PM CHIEF POWER DISPATCHER [facility] ABS. NEUTROPHILS 6.13 1.80 - 7.70 x10'3/uL 10/28/2024 9:55 PM CHIEF POWER DISPATCHER [facility] ABS. LYMPHOCYTES 3.33 1.00 - 4.80 x10'3/uL 10/28/2024 9:55 PM CHIEF POWER DISPATCHER [facility] ABS. MONOCYTES 0.55 0.24 - 0.86 x10'3/uL 10/28/2024 9:55 PM CHIEF POWER DISPATCHER [facility] ABS. EOSINOPHILS 0.07 0.04 - 0.36 x10'3/uL 10/28/2024 9:55 PM CHIEF POWER DISPATCHER [facility] ABS. BASOPHILS 0.05 0.01 - 0.08 x10'3/uL 10/28/2024 9:55 PM CHIEF POWER DISPATCHER [facility] ABS. IMMATURE GRANULOCYTES 0.05 0.00 - 0.49 x10'3/uL 10/28/2024 9:55 PM CHIEF POWER DISPATCHER [facility] 10/28/2024 9:35 PM CHIEF POWER DISPATCHER us Pam MAY LABORATORY Final Result Performing Organization Address City/State/[facility] Co de Phone Number [facility] [address] [place] [address], * XR CHEST PORTABLE (10/28/2024 8:39 PM CHIEF POWER DISPATCHER) Anatomical Region Laterality Modality Chest Radiographic Rosi ging 10/28/2024 8:51 PM CHIEF POWER DISPATCHER Impressions 10/28/2024 8:52 PM CHIEF POWER DISPATCHER IMPRESSION: No acute findings. Ordered By: PAM SAEZ Interpreted By: Dima Manzanares MD, 10/28/2024 8:51 PM Narrative 10/28/2024 8:52 PM CHIEF POWER DISPATCHER [facility] [address] [place], [place] [address] Examination: X-ray chest, 1 view Exam time: 10/28/2024 at 2032 hours Clinical history: Cough. Flu. Comparison: 01/08/2024 Technique: Single frontal upright view of the chest obtained. FINDINGS: No parenchymal consolidation. No discrete pneumothorax or large pleural effusion. Cardiomediastinal silhouette unchanged. Procedure Note Dima Manzanares MD - 10/28/2024 [facility] [address] [place], [place] [address] Examination: X-ray chest, 1 view Exam time: 10/28/2024 at 2032 hours Clinical history: Cough. Flu. Comparison: 01/08/2024 Technique: Single frontal upright view of the chest obtained. FINDINGS: No parenchymal consolidation. No discrete pneumothorax or large pleuraleffusion. Cardiomediastinal silhouette unchanged. IMPRESSION: No acute findings. Ordered By: PAM SAEZ Interpreted By: Dima Manzanares MD, 10/28/2024 8:51 PM Pam Saez [place] [facility] Final Result * MAMMOGRAM GENERIC (08/19/2020) Anatomical Region Laterality Modality Other 08/19/2020 Narrative 08/19/2020 Ordered by an unspecified provider. us Documents Scanned SCANNING Final Result * (ABNORMAL) LIPID PANEL (12/08/2018 9:28 AM CHIEF POWER DISPATCHER) CHOLESTEROL 182 <200 MG/DL 12/08/2018 7:45 PM CHIEF POWER DISPATCHER [facility] TRIGLYCERIDES 96 <150 MG/DL 12/08/2018 7:45 PM CHIEF POWER DISPATCHER [facility] HDL 57 >40.0 MG/DL 12/08/2018 7:45 PM [facility] LDL (CALCULATED) 106(H) <100 MG/DL 12/08/2018 7:45 PM [facility] NON HDL CHOLESTEROL 125 <130 MG/DL 12/08/2018 7:45 PM CHIEF POWER DISPATCHER [facility] CHOL/HDL RATIO 3.2 0.0 - 4.5 12/08/2018 7:45 PM [facility] VLDL CALCULATION 19 5 - 55 MG/DL 12/08/2018 7:45 PM [facility] LIPID INTERPRETATION 12/08/2018 7:45 PM [facility] Comment: [facility] CONCENSUS REPORT RECOMMENDATIONS: ADULT CHILD LOW RISK: CHOLESTEROL <200 <170 TRIGLYCERIDE <150 --- HDL >=60 --- LDL <100 <110 BORDERLINE: CHOLESTEROL 200-239 170-199 TRIGLYCERIDE 150-199 --- HDL 40-59 --- LDL 100-159 110-129 HIGH RISK: CHOLESTEROL >=240 >=200 TRIGLYCERIDE >=200 --- HDL <40 --- LDL >=160 >=130 12/08/2018 9:28 AM CHIEF POWER DISPATCHER Rose Marie Norton NP LABORATORY Final Result [facility] [address] [place] [address], from Last 3 Months or Most Recently Relevant to Health Maintenance [place] [address] [place] [address] Advance Directives * Full Code (Latest Code Status on File) Date Activated Date Inactivated Comments 06/01/2019 2:39 AM 06/04/2019 12:03 PM Care Teams Technology Professional Relationship Specialty Start Date End Date Juanis Richards NP [address] [phone] PCP - General Nurse Practitioner Family 10/28/24
--- OUTSIDE RECORDS SUMMARY | 2024-12-24 15:20 | XMS_ITS | Clinical Summary ---
Author Organization [facility] Address [address] [place] [address] Care Team Providers Care Career Development Consultant Name Role Phone Unavailable Primary Care Provider Unavailabl e Source Comments [facility],non-owned Affiliates and Associated Physician Practices is amultiple site organization consisting of ambulatory clinics and hospital sitesin [place], [place], [place] and [place]. This disclosure is being madepursuant to the Care Everywhere program and may not contain all information available regarding this patient. Last updated 18.[facility] Allergies Active Allergy Reactions Criticality Noted Date Comments Amoxicillin Rash,Unknown Medium 12/08/2018 Iodine Urticaria High 01/24/2023 Medications * Be aware that medications may not be up to date on this document. Alwaysverify current medications with the patient. Medication Sig Dispensed Refills Start Date End Date Status Multiple Vitamins-Minerals (CENTRUM SILVER PO) Activ e CALCIUM CITRATE PO Active nystatin (MYCOSTATIN) 433288 UNIT/GM cream Apply to affected area 2 times daily 15 g 2 03/10/2022 Active Additional Information Patient not taking.Reported on 03/09/2023 vitamin D, ergocalciferol, (Drisdol) 1.25 MG (52734 UT) capsuleIndications: Vitamin D Deficiency Take 1 [...] Sex Assigned at Female 11/25/2020 1:10 PM [facility] [employer]IST[employer]LE[employer]ISTS Gender Identity Female 11/25/2020 1:10 PM [facility] [employer] [employer] Sexual Orientation Straight 02/02/2021 4: 18 PM [...] H[facility] [address] [place] [phone] Vianey Llanes, CIGARETTE CARTON SEALER-SPRING CRATER [address], [place] [id number] 03/15/2025 10:30 AM CDT Clinical Support [facility] [address] [place] [phone] Health Maintenance Due Date Last Done Comments [...] 19+ 3-dose series) 1995 MAMMOGRAM 08/19/2022 08/19/2020, 08/07, 08/19/2020 SCREENING FOR DIABETES 03/16/2024 , 03/10/2021, 03/10/2021, Additional history exists COVID-19 VACCINE (2023- season) 2024 INFLUENZA VACCINE (#1) 2024 DEPRESSION SCREENING 11/07/2024 03/16/2024 ZOSTER VACCINE (1 of 2) 2026 HIB VACCINE Aged Out No longer eligi ble based on patient's age to complete this topic HPV VACCINE Aged Out No longer eligi ble based on patient's age to complete this topic MENINGOCOCCAL (Group B) VACCINE Aged Out No longer eligible based on [...] COMPREHENSIVE METABOLIC PANEL (03/10/2021 4:13 AM CDT) [facility] Signature Glucose 101 70 - 125 mg/dL 03/10/2021 4:57 AM [facility] Sodium 139 136 - 145 mmol/L 03/10/2021 4:57 AM [facility] Potassium 3.5 3.4 - 4.5 mmol/L 03/10/2021 4:57 AM [facility] Chloride 106 98 - 107 mmol/L 03/10/2021 4:57 AM T [facility] CO2 22 22 - 29 [...] AM [facility] Alkaline Phosphatase 47 40 - 150 U/L 03/10/2021 4:57 AM [facility] ALT 54 5 - 55 U/L 03/10/2021 4:57 AM [facility] AST 52(H) 5 - 34 U/L 03/10/2021 4:57 AM [facility] Protein Total 6.2(L) 6.4 - 8.3 gm/dL 03/10/2021 4:57 AM [facility] Albumin 3.4(L) 3.5 - 5.0 gm/dL 03/10/2021 4:57 AM [facility] Globulin Total 2.8 2.6 - 4.0 gm/dL 03/10/2021 4:57 AM CDT [facility] Albumin/Globulin Ratio 1.2 0.9 - 1.6 03/10/2021 4:57 AM CDT [facility] Bilirubin Total 0.6 0.2 - 1.2 mg/dL 03/10/2021 4:57 AM CDT [facility] Blood BLOOD SPECIMEN / Unknown Lab Venipuncture / Unknown 03/10/2021 4:13 AM CDT 03/10/2021 4:33 AM CDT Rehan Mendoza MD LAB - CHEMISTRY KARLEE [facility] Organization Address City/State/ZIP Co de Phone Number [facility] [address] from Last 3 Months or Most Recently Relevant to Health Maintenance Advance Directives * Full Code (Latest Code Status on File) Date Activated Date Inactivated Comments 03/09/2021 11:13 AM 03/10/2021 2:16 PM
--- OUTSIDE RECORDS SUMMARY | 2024-12-24 15:21 | XMS_ITS | Referral Summary ---
Author Organization [facility] Address [address] [place] [address] Care Team Providers Care Meter Tester Polyphase Name Role Phone Unavailable Primary Care Provider Unavailabl e Source Comments [facility],non-owned Affiliates and Associated Physician Practices is amultiple site organization consisting of ambulatory clinics and hospital sitesin [place], [place], [place] and [place]. This disclosure is being madepursuant to the Care Everywhere program and may not contain all information available regarding this patient. Last updated 18.[facility] Allergies Active Allergy Reactions Criticality Noted Date Comments Amoxicillin Rash,Unknown Medium 12/08/2018 Iodine Urticaria High 01/24/2023 Medications * Be aware that medications may not be up to date on this document. Alwaysverify current medications with the patient. Medication Sig Dispensed Refills Start Date End Date Status Multiple Vitamins-Minerals (CENTRUM SILVER PO) Activ e CALCIUM CITRATE PO Active nystatin (MYCOSTATIN) 417135 UNIT/GM cream Apply to affected area 2 times daily 15 g 2 03/10/2022 Active Additional Information Patient not taking.Reported on 03/09/2023 vitamin D, ergocalciferol, (Drisdol) 1.25 MG (41589 UT) capsuleIndications: Vitamin D Deficiency Take 1 [...] Sex Assigned at Female 11/25/2020 1:10 PM AIR COMPRESSOR ENGINEER Gender Identity Female 11/25/2020 1:10 PM AIR COMPRESSOR ENGINEER Sexual Orientation Straight 02/02/2021 4: 18 [...] HEALTHCARE [facility] [address] [place] [phone] Vianey Llanes, CARDIOPULMONARY SUPERVISOR-LATHER APPRENTICE [address] [place] [address] 03/15/2025 10:30 AM CDT Clinical Support [facility] [address] [place] [address] Procedures Procedure Name Priority Date/Time Associated Diagnosis Comments COMPREHENSIVE METABOLIC PANEL Routine 03/10/2021 4:13 AM CDT from Last 3 Months or Most Recently Relevant to Health Maintenance Results * (ABNORMAL) COMPREHENSIVE METABOLIC PANEL (03/10/2021 4:13 AM CDT) [facility] Signature Glucose 101 70 - 125 mg/dL 03/10/2021 4:57 AM T [facility] Sodium 139 136 - 145 mmol/L 03/10/2021 4:57 AM T [facility] Potassium 3.5 3.4 - 4.5 mmol/L 03/10/2021 4:57 AM T [facility] Chloride 106 98 - 107 mmol/L 03/10/2021 4:57 AM T [facility] CO2 22 22 - 29 mmol/L 03/10/2021 4:57 AM T [facility] Calcium 8.7 8.4 - 10.2 mg/dL 03/10/2021 4:57 AM T [facility] Anion Gap 15 10 - 20 mmol/L 03/10/2021 4:57 AM T [facility] BUN 8.7(L) 9.8 - 20.1 mg/dL 03/10/2021 4:57 AM CDT [facility] Creatinine 0.91 0.57 - 1.11 mg/dL 03/10/2021 4:57 AM CDT [facility] eGFR by MDRD >60 >60 mL/min/1.7 3m2 03/10/2021 4:57 AM CDT [facility] eGFR by MDRD >60 >60 mL/min/1.7 3m2 03/10/2021 4:57 AM CDT [facility] Alkaline Phosphatase 47 40 - 150 U/L 03/10/2021 4:57 AM CDT [facility] ALT 54 5 - 55 U/L 03/10/2021 4:57 AM T [facility] AST 52(H) 5 - 34 U/L 03/10/2021 4:57 AM T [facility] Protein Total 6.2(L) 6.4 - 8.3 gm/dL 03/10/2021 4:57 AM T [facility] Albumin 3.4(L) 3.5 - 5.0 gm/dL 03/10/2021 4:57 AM T [facility] Globulin Total 2.8 2.6 - 4.0 gm/dL 03/10/2021 4:57 AM T [facility] Albumin/Globulin Ratio 1.2 0.9 - 1.6 03/10/2021 4:57 AM T [facility] Bilirubin Total 0.6 0.2 - 1.2 mg/dL 03/10/2021 4:57 AM T [facility] Blood BLOOD SPECIMEN / Unknown Lab Venipuncture / Unknown 03/10/2021 4:13 AM CDT 03/10/2021 4:33 AM T Rehan Mendoza MD LAB - CHEMISTRY [facility] [place] Organization Address City/State/ZIP Co de Phone Number [facility] [address] from Last 3 Months or Most Recently Relevant to Health Maintenance Advance Directives * Full Code (Latest Code Status on File) Date Activated Date Inactivated Comments 03/09/2021 11:13 AM 03/10/2021 2:16 PM
--- OUTSIDE RECORDS SUMMARY | 2024-12-24 15:21 | XMS_ITS | Encounter Summary ---
Author Organization [facility] Facility Care Team Providers Care Hot Roller Name Role Phone No, Physician Primary Care Provider [phone] Rose Marie Norton NP Primary Care Provider [phone] Rehan Mendoza MD Primary Care Provider [phone] Rose Marie Norton NP Primary Care Provider [phone] Neil Stinson MD Primary Care Provid er Encounter Details Date Type Department Care Team (Latest Contact Info) Description 12/14/2018 Orders Only [facility] CLINCONV ProviderErin MD [address] [place] [address] Social History Tobacco Use Types Packs/Day Years Used Date Smoking Tobacco: Never Assessed Comments Unknown Sex and Gender Information Value Date Recorded Sex Assigned at Not on file Legal Sex Female 11:50 AM SENIOR GAME DEVELOPER Gender Identity Not on file Sexual Orientation Not on file documented as of this encounter Plan of Treatment Not on file documented as of this encounter Procedures Procedure Name Priority Date/Time Associated Diagnosis Comments PROCEDURE - RESULT 12/14/2018 12 :00 AM SENIOR GAME DEVELOPER documented in this encounter Results * PROCEDURE - RESULT (12/14/2018 12:00 AM SENIOR GAME DEVELOPER) Narrative 12/14/2018 12:00 AM SENIOR GAME DEVELOPER Ordered by an unspecified provider. us Historical Provider Final Res ult documented in this encounter Visit Diagnoses Not on filedocumented in this encounter Care Teams Hot Roller Relationship Specialty Start Date End Date No, Physician PCP - General 11/21/18 12/21/18 Rose Marie Norton, RECTIFICATION PRINTER [address] [place] [address] PCP - General 12/22/18 09/07/20 Rehan Mendoza MD [address] [facility] [place] [address] PCP - General 09/08/20 12/17/20 Rose Marie Norton, RECTIFICATION PRINTER [address] [place], [place] [id number] PCP - General 12/18/20 12/14/21 Neil Stinson MD [address] [place] [address] PCP - General Family Medicine 12/15/21 documented as of this encounter
--- OUTSIDE RECORDS SUMMARY | 2024-12-24 15:21 | XMS_ITS | Encounter Summary ---
Author Organization [facility] Facility Care Team Providers Care Mid Wife Name Role Phone Rose Marie Norton NP Primary Care Provider [phone] Rehan Mendoza MD Primary Care Provider [phone] Rose Marie Norton NP Primary Care Provider [phone] Neil Stinson MD Primary Care Provid er Encounter Details Date Type Department Care Team (Latest Contact Info) Description 12/26/2018 Orders Only [facility] CLINCONV ProviderErin MD [address] [place] [address] Social History Tobacco Use Types Packs/Day Years Used Date Smoking Tobacco: Never Assessed Comments Unknown Sex and Gender Information Value Date Recorded Sex Assigned at Not on file Legal 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
--- OUTSIDE RECORDS SUMMARY | 2024-12-24 15:21 | XMS_ITS | Encounter Summary ---
Author Organization [facility] Facility Care Team Providers Care Ship Washer Name Role Phone No, Physician Primary Care Provider [phone] Rose Marie Norton NP Primary Care Provider [phone] Rehan Mendoza MD Primary Care Provider [phone] Rose Marie Norton NP Primary Care Provider [phone] Neil Stinson MD Primary Care Provid er Encounter Details Date Type Department Care Team (Latest Contact Info) Description 11/15/2018 Orders Only [facility]G CLINCONV ProviderErin MD [address] [place] [address] Social History Tobacco Use Types Packs/Day Years Used Date Smoking Tobacco: Never Assessed Comments Unknown Sex and Gender Information Value Date Recorded Sex Assigned at Not on file Legal Sex Female 11:50 AM HEAD CONCIERGE Gender Identity Not on file Sexual Orientation Not on file documented as of this encounter Plan of Treatment Not on file documented as of this encounter Procedures Procedure Name Priority Date/Time Associated Diagnosis Comments SCAN - PATHOLOGY 11/15/2018 12:0 0 AM HEAD CONCIERGE documented in this encounter Results * SCAN - PATHOLOGY (11/15/2018 12:00 AM HEAD CONCIERGE) Narrative 11/15/2018 12:00 AM HEAD CONCIERGE Ordered by an unspecified provider. us Historical Provider Final Res ult documented in this encounter Visit Diagnoses Not on filedocumented in this encounter Care Teams Ship Washer Relationship Specialty Start Date End Date No, Physician PCP - General 11/21/18 12/21/18 Rose Marie Norton, LABOR OPERATOR [address] [place] [address] PCP - General 12/22/18 09/07/20 Rehan Mendoza MD [address] [facility] [place], [place] [address] PCP - General 09/08/20 12/17/20 Rose Marie Norton, LABOR OPERATOR [address] [place], [place] [id number] PCP - General 12/18/20 12/14/21 Neil Stinson MD [address] [place] [address] PCP - General Family Medicine 12/15/21 documented as of this encounter
--- OUTSIDE RECORDS SUMMARY | 2024-12-24 15:21 | XMS_ITS | Clinical Summary ---
Author Organization [place] [id number] [facility] Address [facility]ly [facility] [place] [address] Care Team Providers Care Construction Producer Name Role Phone Neil Stinson MD Primary Care Provid er Allergies Active Allergy Reactions Criticality Noted Date Comments Amoxicillin Unknown,Rash Medium 12/08/2018 Iodine Hives,Urticaria High 01/24/2023 Medications No known medications Active Problems Problem Noted Date Diagnosed Date Diverticulitis 06/01/2019 H/O hysterectomy for benign disease 01/10/2019 Body mass index (BMI) of 45.0-49.9 in adult 10/07 Overview (11/21/2024): She will benefit from weight loss. Abnormal uterine bleeding (AUB) 05/23/2017 Deep vein thrombosis (DVT) of right lower extrem ity 05/13/2017 Edema of lower extremity 05/13/2017 Obstructive sleep apnea syndrome 05/13/2017 Pulmonary hypertension 05/13/2017 Anxiety 10/20/2016 Essential hypertension 10/20/2016 Esophageal reflux 11/22/2012 Encounters Date Type Department Care Team Description 12/17/2024 Telephone [facility] Neurology [facility] [address] [address] Jaxon Hoffmann Si, MD Scheduling Appointments (Reschedule EMG appointment ) 11/22/2024 11:00 AM ASSOCIATE RESEARCH SCIENTIST Office Visit [facility] Neurology [facility] [address] [place] [phone] Michael Rodriguez MD Radicular pain of left upper extremity (Primary Dx); Anesthesia of skin; Paresthesia of left lower extremity 11/20/2024 Telephone [facility] Neurology [facility] [address] [place] [phone] Provider, MD Erin Scheduling Appointments (SCHEDULE REFERRAL APPOINTMENT ) from Last 3 Months Surgical History Surgery Date Site/Laterality Comments APPENDECTOMY D&C FIRST TRIMESTER / TX INC OMPLETE / MISSED / SEPTIC / INDUCED HYSTERECTOMY 12/26/2018 BILATERAL SALPINGOOPHORECTOMY 12/26/2018 SLEEVE GASTROPLASTY Medical History Medical History Date Comments Hypertension [...] on file Legal Sex Female 11:50 AM ASSOCIATE RESEARCH SCIENTIST Gender Identity Not on file Sexual Orientation Not on file Obstetrics History Last Filed Vital Signs Vital Sign Reading Time Taken Comments Blood Pressure 142/100 11/22/2024 10:56 AM ASSOCIATE RESEARCH SCIENTIST Pulse 70 11/22/2024 10:56 AM ASSOCIATE RESEARCH SCIENTIST Temperature 36.4 C (97.6 F) 08/25/2022 12:45 PM CDT Respiratory Rate 18 08/25/2022 1:05 PM CDT Oxygen Saturation 100% 11/22/2024 10:56 AM ASSOCIATE RESEARCH SCIENTIST Inhaled Oxygen Concentration - - Weight 73 kg (161 lb) 11/22/2024 10:56 AM ASSOCIATE RESEARCH SCIENTIST Height 157.5 cm (5' 2 ) 11/22/2024 10:56 AM ASSOCIATE RESEARCH SCIENTIST Body Mass Index 29.45 11/22/2024 10:56 AM ASSOCIATE RESEARCH SCIENTIST Plan of Treatment Health Maintenance Due Date [...] CDT Patient Name: MARIA DEL CARMEN CERVANTES Ordering Dr: Rose Marie Norton D.ORuyB: 1975 Exam Date: 08/19/20 1007 Age: 44 Sex: Female MR#: [id number] Loc: RADIOLOGY REPORT Order #[id number] [facility] Jina Bilat Diagnostic 3D Signed - MG BILATERAL DIGITAL DIAGNOSTIC MAMMOGRAM 3D/2D WITH MEDIOLATERAL OBLIQUE CRANIOCAUDAL: 08/19/2020 The study was acquired using full field digital technology and interpreted from soft copy. 2D digital mammographic views, as well as 3D digital tomosynthesis were performed in the CC and MLO projections. CLINICAL: 44-year-old woman comes in today for evaluation of focal pain in the left breast, and screening of the right breast. COMPARISONS: No prior exams were available for comparison. BREAST TISSUE: The tissue of both breasts is almost entirely fatty. MAMMOGRAPHIC FINDINGS: A metallic BB marker was placed on the left breast at the reported level of pain, corresponding to approximately the 1 o'clock position, middle to posterior depth. No suspicious findings are identified in either breast on mammogram. Specifically, there is no suspicious finding in the left breast to account for patient's pain. Targeted sonographic examination of the left breast will be performed. ULTRASOUND FINDINGS: Targeted sonographic examination of the left breast is performed at the 1 o'clock position 8 cm from the nipple, corresponding to the area of reported pain. There is only benign fibroglandular tissue at this level without suspicious solid or cystic masses. IMPRESSION: BI-RAD 1 NEGATIVE 1. There is no mammographic or sonographic correlate to account for patient's pain in the left breast. Continued physical examination is recommended. Any further management should be based on clinical assessment. 2. No suspicious findings in either breast on mammogram. Annual bilateral screening mammogram recommended in 12 months. I discussed the findings and impression with the patient at the time of the examination. Electronically signed by: Kevin Pierre rl/:08/19/2020 11:28:52 Retail Commission Sales Associate: Aimee Whipple)Bridgette), [facility] letter sent: Normal Exam Abnormal History Reading location: BI-RADS: 1 Negative REPORT ELECTRONICALLY SIGNED IN OTHER VENDOR SYSTEM Resulting Agency Comment O Procedure Note Kevin Kendall MD - 08/19/2020 Patient Name: JANET CERVANTESSHELBY Ross Dr: Rose Marie Norton D.O.B: 1975 Exam Date: 08/19/20 1007 Age: 44 Sex: Female MR#: [id number] Loc: RADIOLOGY REPORT Order #[id number] [facility] Jina Bilat Diagnostic 3D Signed - MG [...] Electronically signed by: Kevin Pierre rl/:08/19/2020 11:28:52 Retail Commission Sales Associate: Aimee Whipple)(Vickie), [facility] letter sent: Normal Exam Abnormal History Reading location: BI-RADS: 1 Negative REPORT ELECTRONICALLY SIGNED IN OTHER VENDOR SYSTEM Rose Marie Norton COURT WORKER IMG MAMMO PROCEDURES Final Resul t * Hepatitis C antibody (06/22/2017 2:24 PM CDT) Hep C Ab NONREACT NONREACTIVE 06/22/2017 8:23 PM CDT [facility] HISTORICAL RESULTS Comment: Siemens CentaurXP using ROCIO (chemiluminescent immunoassay) technology. NONREACTIVE: Antibodies to Hepatitis C not detected. This does not exclude early acute Hepatitis C infection, possibility of exposure to Hepatitis C, antibodies below detection limit, or to lack of antibody reactivity to the antigen used in this assay. EQUIVOCAL: Antibodies to Hepatitis C may or may not be present. Sample to be confirmed by real-time PCR method. REACTIVE: Antibodies to Hepatitis C detected. 06/22/2017 2:24 PM CDT 06/22/2017 2:29 PM CDT Robyn Lolymayelin [place] DO LAB MICROBIOLOGY - GEN ERAL ORDERABLES Final Result [facility] HISTORICAL RESULTS * ThinPrep Imaging Pap and HPV mRNA E6/E7, Chlamydia/N.Gonorrhoeae (06/22/2017 1:46 PM CDT) CLINICAL INFORMATION [facility] HISTORICAL RESULTS Comment:Information not prov ided LMP: 06/10/17 [facility] HISTORICAL RESULTS PREV. PAP: [facility] HISTORICAL RESULTS Comment:NORMAL PREV. BX: [facility] HISTORICAL RESULTS Comment:INFORMATION NOT PROV IDED SOURCE: [facility] HISTORICAL RESULTS Comment:Cervix, Endocervix STATEMENT OF ADEQUACY: [facility] HISTORICAL RESULTS Comment:Satisfactory for conrad luation. Endocervical/transformation zone component present. INTERPRETATION/RES ULT: [facility] HISTORICAL RESULTS Comment:Negative for intraep ithelial lesion or malignancy. COMMENT: [facility] HISTORICAL RESULTS Comment:This Pap test has be en evaluated with computer assisted technology. LOCKSTITCH FRONT EDGE TAPE SEWER: [facility] HISTORICAL RESULTS Comment:PCM, CT(ASCP) CT scr eening location: [place] [address] [place] [address] HPV mRNA E6/E7 Not Detected Not Detected [facility] HISTORICAL RESULTS Comment: This test was performed using the APTIMA HPV Assay ([employer] This assay detects E6/E7 viral messenger RNA (mRNA) from 14 high-risk HPV types (16,18,31,33,35,39,45,51,52,56,58,59,66,68). C. trachomatis RNA NOT DETECTED NOT DETECTED [facility] HISTORICAL RESULTS N. gonorrhoeae RNA NOT DETECTED NOT DETECTED [facility] HISTORICAL RESULTS COMMENT [facility] HISTORICAL RESULTS Comment: This test was performed using the APTIMA COMBO2 Assay ([employer] The analytical performance characteristics of this assay, when used to test SurePath specimens have been determined by [employer]. 06/22/2017 1:46 PM CDT 06/27/2017 12:10 PM CDT Narrative [facility] HISTORICAL RESULTS - 06/27/2017 11:46 AM CDT 0 PERFORMING LAB: , [facility] [place] [address] , [facility] [phone] Bola Figueroa MD Robyn Ramírez DO LAB PATHOLOGY ORDERABL ES Final Result [facility] HISTORICAL RESULTS from Last 3 Months or Most Recently Relevant to Health Maintenance Insurance [employer] [facility] OncoHoldings ID Care Teams Construction Producer Relationship Specialty Start Date End Date Neil Stinson MD [facility] [address] [place] [address] PCP - General Family Medicine 12/15/21
--- OUTSIDE RECORDS SUMMARY | 2024-12-24 15:21 | XMS_ITS | Encounter Summary ---
Author Organization [facility] Address [address] [place] [id number] Care Team Providers Care In Flight Refueling Manager Name Role Phone None, Provider Primary Care Provider Juanis Brito NP Primary Care Provider [phone] Encounter Details Date Type Department Care Team (Latest Contact Info) Description 09/12/2018 Abstract [facility] , Tam Wallace MD Social History Tobacco [...] Rule Out 01/08/2024 01/08/2024 01/08/2024 2:18 PM MATHEMATICIAN RESEARCH COVID-19 Rule Out 10/28/2024 10/28/2024 10/28/2024 10:10 PM MATHEMATICIAN RESEARCH documented as of this encounter Care Teams In Flight Refueling Manager Relationship Specialty Start Date End Date None, Provider, PCP - General 05/06/21 10/27/24 Juanis Richards NP [address] [address] PCP - General Nurse Practitioner Family 10/28/24 documented as of this encounter
--- OUTSIDE RECORDS SUMMARY | 2024-12-24 15:21 | XMS_ITS | Referral Summary ---
Author Organization [place] [address] [facility] Address [facility] [place] [address] Care Team Providers Care International First Officer Name Role Phone eNil Stinson MD Primary Care Provid er Encounters Date Type Department Care Team Description 12/17/2024 Telephone [facility] Neurology [address] [place] [address] [place] [phone] Jaxon Hoffmann Si, MD Scheduling Appointments (Reschedule EMG appointment ) 11/22/2024 11:00 AM DATABASE DEVELOPER Office Visit [facility] Neurology [address] [place] [address] [address] [place] [address] Michael Rodriguez MD Radicular pain of left upper extremity (Primary Dx); Anesthesia of skin; Paresthesia of left lower extremity 11/20/2024 Telephone [facility]rology [address] [place] [address] [address] [place] [address] Erin Mathews MD Scheduling Appointments (SCHEDULE REFERRAL APPOINTMENT ) from Last 3 Months Allergies Active Allergy Reactions Criticality Noted Date [...] 10/20/2016 Essential hypertension 10/20/2016 Esophageal reflux 11/22/2012 Social History Tobacco Use Types Packs/Day Years [...] on file Legal Sex Female 11:50 AM DATABASE DEVELOPER Gender Identity Not on file Sexual Orientation Not on file Last Filed Vital Signs Vital Sign Reading Time Taken Comments Blood Pressure 142/100 11/22/2024 10:56 AM DATABASE DEVELOPER Pulse 70 11/22/2024 10:56 AM DATABASE DEVELOPER Temperature 36.4 C (97.6 F) 08/25/2022 12:45 PM CDT Respiratory Rate 18 08/25/2022 1:05 PM CDT Oxygen Saturation 100% 11/22/2024 10:56 AM DATABASE DEVELOPER Inhaled Oxygen Concentration - - Weight 73 kg (161 lb) 11/22/2024 10:56 AM DATABASE DEVELOPER Height 157.5 cm (5' 2 ) 11/22/2024 10:56 AM DATABASE DEVELOPER Body Mass Index 29.45 11/22/2024 10:56 AM DATABASE DEVELOPER Plan of Treatment Not on file Procedures [...] CDT Patient Name: MARIA DEL CARMEN CERVANTES Dr: Rose Marie Norton D.ORuyB: 1975 Exam Date: 08/19/20 1007 Age: 44 Sex: Female MR#: [id number] Loc: RADIOLOGY REPORT Order #[id number] [facility] Jina Bilat Diagnostic 3D Signed - MG [...] Electronically signed by: Kevin Pierre rl/:08/19/2020 11:28:52 Purchasing Buyer: Aimee Whipple)(Vickie), [facility] letter sent: Normal Exam Abnormal History Reading location: BI-RADS: 1 Negative REPORT ELECTRONICALLY SIGNED IN OTHER VENDOR SYSTEM Resulting Agency Comment O Procedure Note Kevin Kendall MD - 08/19/2020 Patient Name: MARIA DEL CARMEN CERVANTES Dr: Rose Marie Norton [facility] D.O.B: 1975 Exam Date: 08/19/20 1007 Age: 44 Sex: Female MR#: [id number] Loc: RADIOLOGY REPORT Order #[id number] [facility] Jina Bilat Diagnostic 3D Signed - MG [...] Electronically signed by: Kevin Pierre rl/:08/19/2020 11:28:52 Purchasing Buyer: Aimee Fishman RT (Flory)(Vickie), [facility] letter sent: Normal Exam Abnormal History Reading location: BI-RADS: 1 Negative REPORT ELECTRONICALLY SIGNED IN OTHER VENDOR SYSTEM Rose Marie Norton COMPANY MANAGER IMG MAMMO PROCEDURES Final Resul t [...] - GEN ERAL ORDERABLES Final Result [facility] HISTORICAL RESULTS * ThinPrep Imaging Pap and HPV mRNA E6/E7, Chlamydia/N.Gonorrhoeae (06/22/2017 1:46 PM CDT) CLINICAL INFORMATION [facility] HISTORICAL RESULTS Comment:Information not prov ided LMP: 06/10/17 [facility] HISTORICAL RESULTS PREV. PAP: [facility] RESULTS Comment:NORMAL PREV. BX: [facility] HISTORICAL RESULTS Comment:INFORMATION NOT PROV IDED SOURCE: [facility] HISTORICAL RESULTS Comment:Cervix, Endocervix STATEMENT OF ADEQUACY: [facility] HISTORICAL RESULTS Comment:Satisfactory for conrad luation. Endocervical/transformation zone component present. INTERPRETATION/RES ULT: [facility] HISTORICAL RESULTS Comment:Negative for intraep ithelial lesion or malignancy. COMMENT: [facility] HISTORICAL RESULTS Comment:This Pap test has be en evaluated with computer assisted technology. SALAD CHEF: [facility] HISTORICAL RESULTS Comment:PCM, CT(ASCP) CT scr eening location: [place] [address] [place] [address] HPV mRNA E6/E7 Not Detected Not Detected [facility] HISTORICAL RESULTS Comment: This test was performed using the APTIMA HPV Assay (Gen[employer]apTap[employer].). This assay detects E6/E7 viral messenger RNA (mRNA) from 14 high-risk HPV types (16,18,31,33,35,39,45,51,52,56,58,59,66,68). C. trachomatis RNA NOT DETECTED NOT DETECTED [facility] HISTORICAL RESULTS N. gonorrhoeae RNA NOT DETECTED NOT DETECTED [facility] HISTORICAL RESULTS COMMENT [facility] HISTORICAL RESULTS Comment: This test was performed using the APTIMA COMBO2 Assay ([employer] Inc.). The analytical performance characteristics of this assay, when used to test SurePath specimens have been determined by [employer]. 06/22/2017 1:46 PM CDT 06/27/2017 12:10 PM CDT Narrative [facility] HISTORICAL RESULTS - 06/27/2017 11:46 AM CDT 0 PERFORMING LAB: [place] [address] [facility] [id number] Bola Figueroa MD Robyn Ramírez DO LAB PATHOLOGY ORDERABL ES Final Result [facility] HISTORICAL RESULTS from Last 3 Months or Most Recently Relevant to Health Maintenance Insurance [facility] [employer] [place] Care Teams International First Officer Relationship Specialty Start Date End Date Neil Stinson MD [address] [place] [address] PCP - General Family Medicine 12/15/21
[2024-12-26 10:44] LABS: Absolute CD4 Count 1165 cells/uL (490-1740); Lymphocytes, Absolute 3134 cells/uL (850-3900); Percent CD4 Cells 37 % (30-61)
== END 2024-12-24 12:59 | disposition home or self-care (01) ==
LOC: ANHLAB 12:59
PROVIDERS: PCP Family Medicine; Visit Provider Family Medicine
DX: N89.8 Other specified noninflammatory disorders of vagina (principal)
CPT/HCPCS: 36415; 86361; 86593

== ENCOUNTER 2025-01-12 10:24 | Outpatient (CLI) | payer BC, SELFPAY ==
--- OUTSIDE RECORDS SUMMARY | 2025-01-12 10:27 | XMS_ITS | Referral Summary ---
Author Organization [facility] Address [address] [place] [address] Care Team Providers Care Museum Host/Hostess Name Role Phone Unavailable Primary Care Provider Unavailabl e Source Comments [facility] [place],non-owned Affiliates and Associated Physician Practices is amultiple site organization consisting of ambulatory clinics and hospital sitesin [place], [place], [place] and [place]. This disclosure is being madepursuant to the Care Everywhere program and may not contain all information available regarding this patient. Last updated 18.[facility] [place] Allergies Active Allergy Reactions Criticality Noted Date Comments Amoxicillin Rash,Unknown Medium 12/08/2018 Iodine Urticaria High 01/24/2023 Medications * Be aware that medications may not be up to date on this document. Alwaysverify current medications with the patient. Medication Sig Dispensed Refills Start Date End Date Status Multiple Vitamins-Minerals (CENTRUM SILVER PO) Activ e CALCIUM CITRATE PO Active nystatin (MYCOSTATIN) 809906 UNIT/GM cream Apply to affected area 2 times daily 15 g 2 03/10/2022 Active Additional Information Patient not taking.Reported on 03/09/2023 vitamin D, ergocalciferol, (Drisdol) 1.25 MG (52579 UT) capsuleIndications: Vitamin D Deficiency Take 1 [...] Sex Assigned at Female 11/25/2020 1:[address] TRANSCRIBER Gender Identity Female 11/25/2020 1:[address] TRANSCRIBER Sexual Orientation Straight 02/02/2021 4: 18 PM [...] [facility] [address] [place] [phone] Vianey Llanes, SHIFT LEADER-NUCLEAR REACTOR ENGINEER [address] [place] [address] 03/15/2025 10:30 AM CDT Clinical Support [facility] [address] [place] [address] Procedures Procedure Name Priority Date/Time Associated Diagnosis Comments COMPREHENSIVE METABOLIC PANEL Routine 03/10/2021 4:13 AM CDT from Last 3 Months or Most Recently Relevant to Health Maintenance Results * (ABNORMAL) COMPREHENSIVE METABOLIC PANEL (03/10/2021 4:13 AM CDT) [employer] Signature Glucose 101 70 - 125 mg/dL 03/10/2021 4:57 AM T [facility] Sodium 139 136 - 145 mmol/L 03/10/2021 4:57 AM T [facility] Potassium 3.5 3.4 - 4.5 mmol/L 03/10/2021 4:57 AM T [facility] Chloride 106 98 - 107 mmol/L 03/10/2021 4:57 AM T [facility] CO2 22 22 - 29 mmol/L 03/10/2021 4:57 AM T [facility] Calcium 8.7 8.4 - 10.2 mg/dL 03/10/2021 4:57 AM T [facility] Anion Gap 15 10 - 20 mmol/L 03/10/2021 4:57 AM T [facility] BUN 8.7(L) 9.8 - 20.1 mg/dL 03/10/2021 4:57 AM CDT [facility] Creatinine 0.91 0.57 - 1.11 mg/dL 03/10/2021 4:57 AM CDT [facility] eGFR by MDRD >60 >60 mL/min/1.7 3m2 03/10/2021 4:57 AM CDT [facility] eGFR by MDRD >60 >60 mL/min/1.7 3m2 03/10/2021 4:57 AM CDT [facility] Alkaline Phosphatase 47 40 - 150 U/L 03/10/2021 4:57 AM CDT [facility] ALT 54 5 - 55 U/L 03/10/2021 4:57 AM T [facility] AST 52(H) 5 - 34 U/L 03/10/2021 4:57 AM T [facility] Protein Total 6.2(L) 6.4 - 8.3 gm/dL 03/10/2021 4:57 AM T [facility] Albumin 3.4(L) 3.5 - 5.0 gm/dL 03/10/2021 4:57 AM T [facility] Globulin Total 2.8 2.6 - 4.0 gm/dL 03/10/2021 4:57 AM T [facility] Albumin/Globulin Ratio 1.2 0.9 - 1.6 03/10/2021 4:57 AM T [facility] Bilirubin Total 0.6 0.2 - 1.2 mg/dL 03/10/2021 4:57 AM T [facility] Blood BLOOD SPECIMEN / Unknown Lab Venipuncture / Unknown 03/10/2021 4:13 AM CDT 03/10/2021 4:33 AM T Rehan Mendoza MD LAB - CHEMISTRY [facility] Organization Address City/State/ZIP Co de Phone Number [facility] [address] from Last 3 Months or Most Recently Relevant to Health Maintenance Advance Directives * Full Code (Latest Code Status on File) Date Activated Date Inactivated Comments 03/09/2021 11:13 AM 03/10/2021 2:16 PM
--- OUTSIDE RECORDS SUMMARY | 2025-01-12 10:27 | XMS_ITS | Encounter Summary ---
Author Organization [facility] Facility Care Team Providers Care Plumbing And Heating Mechanic Name Role Phone Rose Marie Norton NP Primary Care Provider [phone] Rehan Mendoza MD Primary Care Provider [phone] Rose Marie Norton NP Primary Care Provider [phone] Neil Stinson MD Primary Care Provid er Encounter Details Date Type Department Care Team (Latest Contact Info) Description 12/26/2018 Orders Only [facility] CLINCONV ProviderErin MD [address] [place] [address] Social History Tobacco Use Types Packs/Day Years Used Date Smoking Tobacco: Never Assessed Comments Unknown Sex and Gender Information Value Date Recorded Sex Assigned at Not on file Legal Sex Female 11:50 AM COASTAL AND ESTUARY SPECIALIST Gender Identity Not on file Sexual Orientation [...] on filedocumented in this encounter Care Teams Plumbing And Heating Mechanic Relationship Specialty Start Date End Date Rose Marie Norton NP [address] [place] [address] PCP - General 12/22/18 09/07/20 Rehan Mendoza MD [address] [place] [address] PCP - General 09/08/20 12/17/20 Rose Marie Norton NP [address] [place], [place] [id number] PCP - General 12/18/20 12/14/21 Neil Stinson MD [address] [place] [id number] PCP - General Family Medicine 12/15/21 documented as of this encounter
--- OUTSIDE RECORDS SUMMARY | 2025-01-12 10:27 | XMS_ITS | Encounter Summary ---
Author Organization [facility] Facility Care Team Providers Care Chemical Manager Name Role Phone No, Physician Primary Care Provider [phone] Rose Marie Norton NP Primary Care Provider [phone] Rehan Mendoza MD Primary Care Provider Rose Marie Norton NP Primary Care Provider [phone] Neil Stinson MD Primary Care Provid er Encounter Details Date Type Department Care Team (Latest Contact Info) Description 12/14/2018 Orders Only [facility] CLINCONV ProviderErin MD [address] [place] [address] Social History Tobacco Use Types Packs/Day Years Used Date Smoking Tobacco: Never Assessed Comments Unknown Sex and Gender Information Value Date Recorded Sex Assigned at Not on file Legal Sex Female 11:50 AM CODER OPERATOR Gender Identity Not on file Sexual Orientation Not on file documented as of this encounter Plan of Treatment Not on file documented as of this encounter Procedures Procedure Name Priority Date/Time Associated Diagnosis Comments PROCEDURE - RESULT 12/14/2018 12 :00 AM CODER OPERATOR documented in this encounter Results * PROCEDURE - RESULT (12/14/2018 12:00 AM CODER OPERATOR) Narrative 12/14/2018 12:00 AM CODER 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 us Historical Provider Final Res ult documented in this encounter Visit Diagnoses Not on filedocumented in this encounter Care Teams Chemical Manager Relationship Specialty Start Date End Date No, Physician PCP - General 11/21/18 12/21/18 Rose Marie Norton, MCAT TUTOR [address] [place] [address] PCP - General 12/22/18 09/07/20 Rehan Mendoza MD [address] [facility] [place] [address] PCP - General 09/08/20 12/17/20 Rose Marie Norton, MCAT TUTOR [address] [place], [place] [id number] PCP - General 12/18/20 12/14/21 Neil Stinson MD [address] [place] [address] PCP - General Family Medicine 12/15/21 documented as of this encounter
--- OUTSIDE RECORDS SUMMARY | 2025-01-12 10:27 | XMS_ITS | Data Portability ---
Author Organization [facility] Address [address] [place] [address] Assessment Encounter Date Assessment Date Assessment LastModified [...] thiazide 12.5 mg capsule 2022 023 kwilliams [employer] #[id number], [address] [place], [place], [id number], 17:06:14 hydrochloro thiazide 25 mg tablet 2021 022 kwilliams [address] [facility] #[id number], [address], [place], [id number], 17:06:06 Patient TargetsNo targets recorded. Patient Instructions Encounter Date Encounter Id Patient Instructions Last Modified By Organization Details Last Modified Time 05/20/2021 [id number] Exercise advised Low cholesterol diet advised Low sodium diet advised [email or web address] Not available 05/20/2021 15:35:00 Patient was seen and evaluated by Sherron Drake [facility]. Plan of care was discussed with collaborating physician and note cosigned by Dr. Kaylee Cross. [email or web address] Not available 05/20/2021 15:35:15 08/24/2022 [id number] Exercise advised Low cholesterol diet advised Low sodium diet advised. [email or web address] Not available 08/24/2022 13:34:28 11/16/2022 [id number] Exercise advised Low cholesterol diet advised Low sodium diet advised. [email or web address] Not available 11/16/2022 16:45:06 Reason for Referral None Reported. Results Created Date Observation Date Name Description Value Unit Range Abnormal Flag Note LastModifiedBy Organization Detail LastModifiedTime 02/21/20 elect rocar diogr am No observ ation record ed. Not Available 2020 12:08:49 06/01/20 21 05/20/2021 [...] Address Organization Details Recorded Time Hyperlipide ly 62036873 Active 2022 John Mesto null, [place] [facility] 3 14:15:41 Essential hypertensio n 84735666 Active 2015 Johnparish Flannery [place], [place] [facility] 2 05:43:00 Gastroesoph ageal reflux disease 301321267 Active 2015 Alvaro [place] [facility] 6 13:33:32 Anxiety 63344503 Active 2015 Alvaro [place] [facility] 6 13:33:44 Obesity 746338874 Active 2015 Johnparish [place]ann[place] [facility] 6 13:33:54 Pulmonary hypertensio n 21816243 Active 2016 Johnparish [place] [facility] 7 18:13:54 Edema of lower extremity 650868244 Active 2016 Johnparish [place] [facility] 7 18:14:06 Obstructive sleep apnea syndrome 16774342 Active 2016 Alvaro [place] [facility] 2 05:42:53 Deep venous thrombosis of right lower extremity 1883395776256 05 Active 2016 Alvaro [place] [facility] 7 18:14:36 Pre-surgery evaluation Active 2018 Braydenhermes Jayski [facility], [place] - [facility] 9 14:42:02 Problem Notes None recorded. Procedures Surgical History Date Name Laterality Status Provider Name and Address Organization Details Recorded Time Appendectomy completed Alvaro Flannery [place] [facility] 10/20/2016 13:34:22 Imaging Results Imaging Date Name Status LastModified by Organization Details LastModified Time 02/20/2021 electrocardiogram completed Informa tion not available 02/20/2021 12:08:49 05/20/2021 [...] [degF] 124 mm[Hg] 80 mm[Hg] Claude Wells [facility] 1 11:24:56 Date Recorded Body height Body mass index (BMI) Body weight Heart rate Respiratory rate Oxygen saturation Oxygen saturation in Arterial blood by Pulse oximetry Systolic blood pressure Diastolic blood pressure Provider Name and Address Organization Details Last Updated DateTime 1 160.02 cm 36.1 kg/m2 51873.8 4 g 59 /min 18 /min 98 % 98 % 110 mm[Hg] 74 mm[Hg] Tiffanie Rosas [facility] 1 11:44:00 Date Recorded Body weight Heart rate Oxygen saturation Oxygen saturation in Arterial blood by Pulse oximetry Systolic blood pressure Diastolic blood pressure Provider Name and Address Organization Details Last Updated DateTime 2 10028.6 6 g 61 /min 98 % 98 % 130 mm[Hg] 82 mm[Hg] Luanne Antonio [facility] 2 12:54:28 Date Recorded Body mass index (BMI) Body height Provider Name and Address Organization Details Last Updated DateTime 08/24/2022 31 kg/m2 160.02 cm Jose Umaña MD [address] [place], [address], [facility] 08/24/2022 13:31:55 Date Recorded Body height Body mass index (BMI) Body weight Heart rate Respiratory rate Oxygen saturation Oxygen saturation in Arterial blood by Pulse oximetry Systolic blood pressure Diastolic blood pressure Provider Name and Address Organization Details Last Updated DateTime 3 160.02 cm 30.3 kg/m2 72924.3 g 82 /min 16 /min 99 % 99 % 132 mm[Hg] 92 mm[Hg] Sheldon Addison [facility] 3 16:20:28 Date Recorded Body height Body mass index (BMI) Body weight Heart rate Respiratory rate Oxygen saturation Oxygen saturation in Arterial blood by Pulse oximetry Systolic blood pressure Diastolic blood pressure Provider Name and Address Organization Details Last Updated DateTime 3 160.02 cm 28.9 kg/m2 89630.5 6 g 82 /min 16 /min 94 % 94 % 118 mm[Hg] 78 mm[Hg] Sheldon Addison [facility] 3 17:09:11 Social History Question Answer Notes LastModified by Organizat ion Details LastModified Time Tobacco Smoking Status Former Smoker Alvaro Flannery [facility] 10/20/2016 13:36:39 Do You Or Have You [...] Code Diagnosis Note 7443 Jose Umaña MD [facility] [address] [place] [address] 10/22/2016 12:14:07 10/25/2016 10:21:47 Essential hypertension 38946590 I10 Chest pain 00422643 R07. 9 Had negative stress test Pulmonary hypertension 37313620 I27.2 Edema of l ower extremity 424552000 R60.0 Obstructiv e sleep apnea syndrome 71415224 G47.33 7989 Jose Umaña MD [facility] [address] [place] [address] 11/15/2016 14:05:32 11/15/2016 15:54:27 Essential hypertension 02672191 I10 Chest pain 98305666 R07. 9 Had negative stress test Pulmonary hypertension 37387219 I27.2 Edema of l ower extremity 743098853 R60.0 Obstructiv e sleep apnea syndrome 94826897 G47.33 Deep venou s thrombosis of lower extremity 404868562 I82.401 58967 Jose Umaña MD [facility] [address] [place] [address] 08/22/2017 15:45:01 08/23/2017 09:43:43 Essential hypertension 35161559 I10 Chest pain 80589764 R07. 9 Treadmill Myoview Stress test, has high [place] Risk score. Has Known CAD, or CAD risk equivalent . To look for any ischemia. Edema of l ower extremity 420386970 R60.0 Obstructiv e sleep apnea syndrome 00214628 G47.33 Deep venou s thrombosis of lower extremity 453211464 I82.401 11/16/16 VENOUS DOP/DUPLEX BOTH LEGS: Negative for deep vein thrombosis , bilateral lower extremitie s. 12124 Andre Spencer [facility] [address] [place] [address] 10/10/2017 16:26:23 10/11/2017 10:19:35 Essential hypertension 13505263 I10 Patient's blood pressure is {{well-con trolled* [...] grams sodium or less daily). Chest pain 86740481 R07. 9 Pleuritic chest pain with dyspnea, [...] than 40. Edema of l ower extremity 498257221 R60.0 Mild. Improved. Had 10/22/16 ECHOCARDIO GRAM REPORT: The estimated left ventricula r ejection fraction is 60-65% (normal). Diastolic filling reveals a pseudonorm al pattern (grade 2 diastolic dysfunctio n). Had 11/16/16 VENOUS DOP/DUPLEX BOTH LEGS: Negative for deep vein thrombosis , bilateral lower extremitie s. Continue diuretics. Obtain BMP, Mg. Obstructiv e sleep apnea syndrome 71964300 G47.33 Sleep study not performed yet. Obtain once pneumonia resolved in 1 month. [address] [facility] [address] [place] [address] 11/30/2018 13:43:30 11/30/2018 14:49:52 Chest pain 67399204 R07.9 ResolvedPt had pleuritic chest pain with [...] and HDL more than 40. Essential hypertension 36177514 I10 Patient's blood pressure is {{well-con trolled* [...] less daily). Edema of l ower extremity 299789712 R60.0 Mild. Improved. Had 10/22/16 ECHOCARDIO GRAM REPORT: The estimated left ventricula r ejection fraction is 60-65% (normal). Diastolic filling reveals a pseudonorm al pattern (grade 2 diastolic dysfunctio n). Had 11/16/16 VENOUS DOP/DUPLEX BOTH LEGS: Negative for deep vein thrombosis , bilateral lower extremitie s. Continue diuretics. Obtain BMP, Mg. Pre-surger y evaluation 613538599 Z01.818 pt could walk one flight of stairs withoutpro blemsECHOI f LV systolic function normal pt does have low risk for moderate risk surgery [address] [facility] [address] [place] [address] 03/15/2019 14:36:27 03/15/2019 16:06:01 Chest pain 20585922 R07.9 ResolvedPt had pleuritic chest pain with [...] and HDL more than 40. Essential hypertension 46761585 I10 Patient's blood pressure is {{well-con trolled* [...] less daily). Edema of l ower extremity 384955743 R60.0 Mild. Improved. Had 10/22/16 ECHOCARDIO GRAM REPORT: The estimated left ventricula r ejection fraction is 60-65% (normal). Diastolic filling reveals a pseudonorm al pattern (grade 2 diastolic dysfunctio n). Had 11/16/16 VENOUS DOP/DUPLEX BOTH LEGS: Negative for deep vein thrombosis , bilateral lower extremitie s. [place]. [place]. [address] Brayden [facility] Office [address] [place] [address] 11/17/2020 14:54:00 11/17/2020 15:30:34 Chest pain 56322818 R07.9 ResolvedPt had pleuritic chest pain with [...] and HDL more than 40. Essential hypertension 37246913 I10 Patient's blood pressure is {{well-con trolled* [...] less daily). Edema of l ower extremity 802221767 R60.0 Mild. Improved. Had 10/22/16 ECHOCARDIO GRAM REPORT: The estimated left ventricula r ejection fraction is 60-65% (normal). Diastolic filling reveals a pseudonorm al pattern (grade 2 diastolic dysfunctio n). Had 11/16/16 VENOUS DOP/DUPLEX BOTH LEGS: Negative for deep vein thrombosis , bilateral lower extremitie s. Continue diuretics. Obtain BMP, Mg. Pre-surger y evaluation 555456143 Z01.818 pt could walk one flight of stairs withoutpro blemsif ECHO normal pt does have low risk for low risk surgery [address] B[facility]den [facility] Tiffani peguero Office [address] [place] [address] 02/18/2021 11:20:12 02/18/2021 11:43:47 Chest pain 93627984 R07.9 ResolvedPt had pleuritic chest pain with [...] and HDL more than 40. Essential hypertension 25903334 I10 Patient's blood pressure is {{well-con trolled* [...] less daily). Edema of l ower extremity 407379103 R60.0 Mild. Improved. Had 10/22/16 ECHOCARDIO GRAM REPORT: The estimated left ventricula r ejection fraction is 60-65% (normal). Diastolic filling reveals a pseudonorm al pattern (grade 2 diastolic dysfunctio n). Had 11/16/16 VENOUS DOP/DUPLEX BOTH LEGS: Negative for deep vein thrombosis , bilateral lower extremitie s. Continue diuretics. Obtain BMP, Mg. Pre-surger y evaluation 412313523 Z01.818 pt could walk one flight of stairs without problems ECHO showed normal LV systolic function pt does have low risk for low risk surgery 07172 Sherron Drake [facility] Office [address] [facility] [facility] [place] [address] 05/20/2021 11:28:04 05/20/2021 12:21:53 Chest pain 64552825 R07.9 Resolved TDM 10/03/2017 : Negative stress test for ischemia. 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 Normal LV systolic function. Essential hypertension 24052872 I10 Well controlled without antihypert ensive therapy Edema of l ower extremity 180802003 R60.0 Resolved 55134 Jose Umaña MD [facility] [address] [place] [address] 08/24/2022 12:30:31 08/24/2022 13:42:03 Chest pain 56778481 R07.9 Will do stress echo TDM 10/03/2017 : Negative stress test for ischemia. 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 Normal LV systolic function. Essential hypertension 85462170 I10 Well controlled without antihypert ensive therapy but she has occasional high BP we will start her on HCTZ 25 mg daily Edema of l ower extremity 164172970 R60.0 Resolved Hyperlipidemia 17375311 E78.5 *Last LDL was 127 done on 09/07/20.P t dose not takes any statins.re peat lipid profile Palpitations 61232872 R0 0.2 will do holter monitor for 48 hours Obstructiv e sleep apnea syndrome 08183944 G47.33 will do sleep study 92588 Jose Umaña MD [facility] [address] [place] [address] 11/16/2022 16:16:09 11/16/2022 16:44:17 Chest pain 31961487 R07.9 stress test is negative 10/2022 TDM 10/03/2017 : Negative stress test for ischemia. 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 Normal LV systolic function. Essential hypertension 89912720 I10 continue HCTZ 25 mg daily Edema of l ower extremity 114903113 R60.0 Resolved Hyperlipidemia 46294461 E78.5 *Last LDL was 127 done on 09/07/20.P t dose not takes any statins.re peat lipid profile Palpitations 02058323 R0 0.2 resolved Obstructiv e sleep apnea syndrome 92009696 G47.33 will consider sleep study 03599 Jose Umaña MD [facility] [place] [address] 01/06/2023 16:22:03 01/06/2023 17:29:49 Chest pain 58578567 R07.9 stress test is negative 10/2022 TDM 10/03/2017 : Negative stress test for ischemia. 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 Normal LV systolic function. Essential hypertension 55344084 I10 Will DC HCTZ 25 mg daily Edema of l ower extremity 604345853 R60.0 Resolved Hyperlipidemia 15188397 E78.5 *Last LDL was 127 done on 09/07/20.P t dose not takes any statins.re peat lipid profile Palpitations 70189321 R0 0.2 resolved Obstructiv e sleep apnea syndrome 38702115 G47.33 will consider sleep study Health Concerns Section Related Observation LastModified by Organization Detai ls LastModified Time None Recorded Concern Status LastModified by Organization Details LastModified Time None Recorded Advance Directives Directive None Recorded Payers Encounter Date Sequence Insurance Name Policy Number Policy Rice Covered Member ID Rice Member ID Guarantor Name 02/18/2021 1 [facility] - DOS PRIOR TO 2021 (MEDICAID REPLACEMENT - HMO) Maria Del Carmen C Ray [id number] Maria Del Carmen C Ray 05/20/2021 1 [facility] ON OR AFTER 05/07/21 (MEDICAID REPLACEMENT - HMO) Maria Del Carmen C Ray [id number] Maria Del Carmen C Ray 08/24/2022 1 [facility] ON OR AFTER 05/07/21 (MEDICAID REPLACEMENT - HMO) Maria Del Carmen C Ray [id number] Maria Del Carmen C Ray 11/16/2022 1 [facility] ON OR AFTER 05/07/21 (MEDICAID REPLACEMENT - HMO) Maria Del Carmen C Ray [id number] Maria Del Carmen C Ray 01/06/2023 1 [facility] ON OR AFTER 05/07/21 (MEDICAID REPLACEMENT - HMO) Maria Del Carmen Campbellnings [id number] Maria Del Carmen Castillo Ray Notes Date Note Type Note Provider Name and Address Organization Details Recorded Time 02/18/2021 text/html 02/18/2021 CC: Preop HPI 45 year old Woman with no significant past medical history, is here for follow-up. Pt states that she is going to be scheduled for bariatric surgery soon in [place], Now is loosing some weight. She had [...] TG 76, TC 202, HDL 60, LDL 5353909/08/20: VIT D 13111/08/19: HGB A1C 5.4%09/08/20 CBC: [...] thrombosis , bilateral lower extremities. Brayden Chavarria [place], [place] - [facility] 02/18/2021 16:13:34 [...] She does report she was seen in [facility] ED with abdominal pain and was discharged [...] TG 76, TC 202, HDL 60, LDL 16400: VIT D 13111/08/19: HGB A1C 5.4%09/08/20 CBC: [...] diac follow up dyspnea on exertion and [id number]-oupe-rqs woman with h/o Hypertension, is here for [...] She does report she was seen in [facility] ED with abdominal pain and was discharged [...] TG 76, TC 202, HDL 60, LDL 3267309/08/20: VIT D 13111/08/19: HGB A1C 5.4%09/08/20 CBC: [...] , bilateral lower extremities. Jose Umaña MD [address] [place], [address], [facility] - [facility] 08/24/2022 13:35:03 11/16/2022 text/html 11/16/21CC : Car diac follow up, dyspnea on [id number] woman with h/o Hypertension, hyperlipidemia, and obstructive [...] She does report she was seen in [facility] ED with abdominal pain and was discharged [...] TG 76, TC 202, HDL 60, LDL 2637609/08/20: VIT D 13111/08/19: HGB A1C 5.4%09/08/20 CBC: WBC 8.1, RBC 4.86, HGB 15.0, HCT 44.1, PLT 2315210/24/2017: WBC 10.9, HGB 12.2, HCT 38.2, PLT [...] , bilateral lower extremities. Jose Umaña MD [address] [place], [address], [place] [facility] 11/16/2022 16:45:12 01/06/2023 text/html 01/06/23CC : Car diac follow up, dyspnea on [id number] woman with h/o Hypertension, hyperlipidemia, and obstructive [...] She does report she was seen in [facility] ED with abdominal pain and was discharged [...] TG 76, TC 202, HDL 60, LDL 1401909/08/20: VIT D 13111/08/19: HGB A1C 5.4%09/08/20 CBC: WBC 8.1, RBC 4.86, HGB 15.0, HCT 44.1, PLT 4050010/24/2017: WBC 10.9, HGB 12.2, HCT 38.2, PLT [...] , bilateral lower extremities. Jose Umaña MD [address] [place], [address], [facility] - [facility] 01/06/2023 17:26:17 OBGyn Episode No OBEpisode recorded.
--- OUTSIDE RECORDS SUMMARY | 2025-01-12 10:27 | XMS_ITS | Encounter Summary ---
Author Organization [facility] Address [facility] [place] [address] Care Team Providers Care Graves Registration Specialist Name Role Phone None, Provider Primary Care Provider Juanis Brito NP Primary Care Provider [phone] Encounter Details Date Type Department Care Team (Latest Contact Info) Description 09/12/2018 Abstract [facility] , Tam ConversionMD [...] Rule Out 01/08/2024 01/08/2024 01/08/2024 2:18 PM PLASTERER STUCCO COVID-19 Rule Out 10/28/2024 10/28/2024 10/28/2024 10:10 PM PLASTERER STUCCO documented as of this encounter Care Teams Graves Registration Specialist Relationship Specialty Start Date End Date None, Provider, PCP - General 05/06/21 10/27/24 Juanis Richards NP [address] [address] PCP - General Nurse Practitioner Family 10/28/24 documented as of this encounter
--- OUTSIDE RECORDS SUMMARY | 2025-01-12 10:27 | XMS_ITS | Referral Summary ---
Author Organization [place] [address] [facility] Address [facility] [place] [address] Care Team Providers Care Service Superintendent Name Role Phone Neil Stinson MD Primary Care Provid er Encounters Date Type Department Care Team Description 12/17/2024 Telephone [facility] [address] [place] [address] [address] [place] [address] Jaxon Hoffmann Si, MD Scheduling Appointments (Reschedule EMG appointment ) 11/22/2024 11:00 AM EPOXY FABRICATION SUPERVISOR Office Visit [facility] [address] [place] [address] Michael Rodriguez MD Radicular pain of left upper extremity (Primary Dx); Anesthesia of skin; Paresthesia of left lower extremity; Paresthesia 11/20/2024 Telephone [facility] [address] [place] [address] ProviderErin MD Scheduling Appointments (SCHEDULE REFERRAL APPOINTMENT ) [...] on file Legal Sex Female 11:50 AM EPOXY FABRICATION SUPERVISOR Gender Identity Not on file Sexual Orientation Not on file Last Filed Vital Signs Vital Sign Reading Time Taken Comments Blood Pressure 142/100 11/22/2024 10:56 AM EPOXY FABRICATION SUPERVISOR Pulse 70 11/22/2024 10:56 AM EPOXY FABRICATION SUPERVISOR Temperature 36.4 C (97.6 F) 08/25/2022 12:45 PM CDT Respiratory Rate 18 08/25/2022 1:05 PM CDT Oxygen Saturation 100% 11/22/2024 10:56 AM EPOXY FABRICATION SUPERVISOR Inhaled Oxygen Concentration - - Weight 73 kg (161 lb) 11/22/2024 10:56 AM EPOXY FABRICATION SUPERVISOR Height 157.5 cm (5' 2 ) 11/22/2024 10:56 AM EPOXY FABRICATION SUPERVISOR Body Mass Index 29.45 11/22/2024 10:56 AM EPOXY FABRICATION SUPERVISOR Plan of Treatment Not on file Procedures [...] 08/19/20 1007 Age: 44 Sex: Female MR#: [id number] Loc: RADIOLOGY REPORT Order #[id number] [facility] Jina Bilat Diagnostic 3D [...] Electronically signed by: Kevin Pierre rl/:08/19/2020 11:28:52 Nuclear Technician: Aimee Whipple)(Vickie), [facility] letter sent: Normal Exam Abnormal History Reading location: BI-RADS: 1 Negative REPORT ELECTRONICALLY SIGNED IN OTHER VENDOR SYSTEM Resulting Agency Comment O Procedure Note Kevin Kendall MD - 08/19/2020 Patient Name: MARIA DEL CARMEN CERVANTES Dr: Rose Marie Norton D.O.B: 1975 Exam Date: 08/19/20 1007 Age: 44 Sex: Female MR#: [id number] Loc: RADIOLOGY REPORT Order #[id number] [facility] Jina Bilat Diagnostic 3D [...] Electronically signed by: Kevin Pierre rl/:08/19/2020 11:28:52 Nuclear Technician: Aimee Fishman RT (Flory)(Vickie), [facility] letter sent: Normal Exam Abnormal History Reading location: BI-RADS: 1 Negative REPORT ELECTRONICALLY SIGNED IN OTHER VENDOR SYSTEM Rose Marie Norton PROP CUTTER IMG MAMMO PROCEDURES Final Resul t * Hepatitis C antibody (06/22/2017 2:24 PM CDT) Hep C Ab NONREACT NONREACTIVE 06/22/2017 8:23 PM CDT [facility] HISTORICAL RESULTS Comment: Siemens CentaurXP using ROCIO [...] MICROBIOLOGY - GEN ERAL ORDERABLES Final Result [facility] HISTORICAL RESULTS * ThinPrep Imaging Pap and HPV mRNA E6/E7, Chlamydia/N.Gonorrhoeae (06/22/2017 1:46 PM CDT) CLINICAL INFORMATION [facility] HISTORICAL RESULTS Comment:Information not prov ided LMP: 06/10/17 [facility] HISTORICAL RESULTS PREV. PAP: [facility]IST[facility] RESULTS Comment:NORMAL PREV. BX: [facility] RESULTS Comment:INFORMATION NOT PROV IDED SOURCE: [facility]ISTORICAL RESULTS Comment:Cervix, Endocervix STATEMENT OF ADEQUACY: [facility] HISTORICAL RESULTS Comment:Satisfactory for conrad luation. Endocervical/transformation zone component present. INTERPRETATION/RES ULT: [facility] RESULTS Comment:Negative for intraep ithelial lesion or malignancy. COMMENT: [facility] HISTORICAL RESULTS Comment:This Pap test has be en evaluated with computer assisted technology. CITRUS PEELER: [facility] HISTORICAL RESULTS Comment:PCM, CT(ASCP) CT scr eening location: [place] [address] [place] [address] HPV mRNA E6/E7 Not Detected Not Detected [facility] HISTORICAL RESULTS Comment: This test was performed using the APTIMA HPV Assay ([employer] This assay detects E6/E7 viral messenger RNA (mRNA) from 14 high-risk HPV types (16,18,31,33,35,39,45,51,52,56,58,59,66,68). C. trachomatis RNA NOT DETECTED NOT DETECTED [facility] HISTORICAL RESULTS N. gonorrhoeae RNA NOT DETECTED NOT DETECTED [facility] HIST[facility]ICAL RESULTS COMMENT [facility] HIST[facility] RESULTS Comment: This test was performed using the APTIMA COMBO2 Assay ([employer] The analytical performance characteristics of this assay, when used to test SurePath specimens have been determined by [employer]. 06/22/2017 1:46 PM CDT 06/27/2017 12:10 PM CDT Narrative [facility] HISTORICAL RESULTS - 06/27/2017 11:46 AM CDT 0 PERFORMING LAB: [facility] [employer] [place] [address] [facility] [address] Bola Figueroa MD Robyn Ramírez DO LAB PATHOLOGY ORDERABL ES Final Result [facility] HISTORICAL RESULTS from Last 3 Months or Most Recently Relevant to Health Maintenance Insurance [facility] [employer] [place] Care Teams Service Superintendent Relationship Specialty Start Date End Date Neil Stinson MD [address] [place] [address] PCP - General Family Medicine 12/15/21
--- OUTSIDE RECORDS SUMMARY | 2025-01-12 10:27 | XMS_ITS | Clinical Summary ---
Author Organization [facility] Address [address] [place] [address] Care Team Providers Care Investigation Officer Name Role Phone Juanis Richards NP Primary Care Provider [phone] Allergies Active Allergy Reactions Criticality Noted Date [...] Department Care Team Description 10/28/2024 9:00 PM AIRCRAFT AVIONICS TECHNICIAN - 10/28/2024 11:34 PM AIRCRAFT AVIONICS TECHNICIAN Emergency [facility] [place] [address] Mary Gant MD Sore Throat; Diarrhea Discharge [...] Comments Blood Pressure 167/99 10/28/2024 10:25 PM AIRCRAFT AVIONICS TECHNICIAN Pulse 58 10/28/2024 10:25 PM AIRCRAFT AVIONICS TECHNICIAN Temperature 37 C (98.6 F) 10/28/2024 8:18 PM AIRCRAFT AVIONICS TECHNICIAN Respiratory Rate 16 10/28/2024 10:25 PM AIRCRAFT AVIONICS TECHNICIAN Oxygen Saturation 99% 10/28/2024 10:25 PM AIRCRAFT AVIONICS TECHNICIAN Inhaled Oxygen Concentration - - Weight 72.6 kg (160 lb) 10/28/2024 8:18 PM AIRCRAFT AVIONICS TECHNICIAN Height 160 cm (5' 3 ) 10/28/2024 8:18 PM AIRCRAFT AVIONICS TECHNICIAN Body Mass Index 28.34 10/28/2024 8:18 PM AIRCRAFT AVIONICS TECHNICIAN Plan of Treatment Health Maintenance Due Date [...] A & B STAT 10/28/2024 9:35 PM AIRCRAFT AVIONICS TECHNICIAN CORONAVIRUS (COVID 19) STAT 10/28/2024 9:35 PM AIRCRAFT AVIONICS TECHNICIAN STREP A RAPID STAT 10/28/2024 9:35 PM AIRCRAFT AVIONICS TECHNICIAN HIV 1 ANTIGEN(S), WITH HIV-1 AND HIV-2 ANTIBODIES STAT 10/28/2024 9:35 PM AIRCRAFT AVIONICS TECHNICIAN HETEROPHILE ANTIBODIES,SCREEN STAT 10/28/2024 9:35 PM AIRCRAFT AVIONICS TECHNICIAN HC URINALYSIS AUTO W/O MICRO STAT 10/28/2024 9:35 PM AIRCRAFT AVIONICS TECHNICIAN COMPREHENSIVE METABOLIC PANEL STAT 10/28/2024 9:35 PM AIRCRAFT AVIONICS TECHNICIAN CBC W/DIFF AUTOMATED STAT 10/28/2024 9:35 PM AIRCRAFT AVIONICS TECHNICIAN XR CHEST PORTABLE STAT 10/28/2024 8:3 9 PM AIRCRAFT AVIONICS TECHNICIAN MAMMOGRAM GENERIC (SCAN ORDER) 08/19/2020 LIPID PANEL Routine 12/08/2018 9:28 AM AIRCRAFT AVIONICS TECHNICIAN Essential hypertension from Last 3 Months or Most Recently Relevant to Health Maintenance Results * CORONAVIRUS (COVID 19) (10/28/2024 9:35 PM AIRCRAFT AVIONICS TECHNICIAN) Pathologist [facility] [place] CORONAVIRUS SARS COV 2 RNA NEGATIVE NEGATIVE 10/28/2024 10:10 PM AIRCRAFT AVIONICS TECHNICIAN [facility] Comment: NEGATIVE RESULTS DO [...] SARS-COV-2. SPECIMEN TYPE NASAL 10/28/2024 9:29 PM AIRCRAFT AVIONICS TECHNICIAN [facility] NASAL STRUCTURE / Unknown 10/28/2024 9:35 PM AIRCRAFT AVIONICS TECHNICIAN Pam MAY MICROBIOLOGY - GENERAL ORDERAB LES Final Result [facility] [address] [place] [address], [place] [phone] * HIV 1 ANTIGEN(S), WITH HIV-1 AND HIV-2 ANTIBODIES (10/28/2024 9:35 PM AIRCRAFT AVIONICS TECHNICIAN) [facility] HIV 1/2 AB+ HIV1 P24 AG NON-REACTI VE NON-REACTI VE 10/28/2024 11:22 PM AIRCRAFT AVIONICS TECHNICIAN [facility] 10/28/2024 9:35 PM AIRCRAFT AVIONICS TECHNICIAN Mary Gant MD LABORATORY Final Resul t [facility] [address] [place] [address], [place] [phone] * INFLUENZA A & B (10/28/2024 9:35 PM AIRCRAFT AVIONICS TECHNICIAN) SPECIMEN TYPE SWAB 10/28/2024 10:10 PM AIRCRAFT AVIONICS TECHNICIAN [facility] INFLUENZA A NEGATIVE NEGATIVE 10/28/2024 10:10 PM AIRCRAFT AVIONICS TECHNICIAN [facility] INFLUENZA B NEGATIVE NEGATIVE 10/28/2024 10:10 PM AIRCRAFT AVIONICS TECHNICIAN [facility] Comment: Interpretation: Negative for [...] NASAL STRUCTURE / Unknown 10/28/2024 9:35 PM AIRCRAFT AVIONICS TECHNICIAN Pam MAY MICROBIOLOGY - GENERAL ORDERAB LES Final Result [facility] [address] [place] [address], [place] [phone] * (ABNORMAL) URINALYSIS (10/28/2024 9:35 PM AIRCRAFT AVIONICS TECHNICIAN) SPECIMEN TYPE URINE CLEAN CATCH 10/28/2024 9:34 PM AIRCRAFT AVIONICS TECHNICIAN [facility] COLOR (U) YELLOW 10/28/2024 9:59 PM AIRCRAFT AVIONICS TECHNICIAN [facility] TRANSPARENCY CLEAR 10/28/2024 9:59 PM [facility] SPECIFIC GRAVITY (U) 1.037(H) 1.001 - 1.030 10/28/2024 9:59 PM [facility] U PH 6.5 5.0 - 9.0 10/28/2024 9:59 PM [facility] LEUKOCYTES (U) NEGATIVE NEGATIVE 10/28/2024 9:59 PM AIRCRAFT AVIONICS TECHNICIAN [facility] NITRITES NEGATIVE NEGATIVE 10/28/2024 9:59 PM [facility] PROTEIN RANDOM (U) 30(H) <30 MG/DL 10/28/2024 9:59 PM [facility] GLUCOSE (U) NORMAL NORMAL MG/DL 10/28/2024 9:59 PM [facility] KETONES MG/DL (U) NEGATIVE NEGATIVE MG/DL 10/28/2024 9:59 PM [facility] UROBILINOGEN 4.0(A) NORMAL MG/DL 10/28/2024 9:59 PM [facility] BILIRUBIN (U) NEGATIVE NEGATIVE MG/DL 10/28/2024 9:59 PM [facility] BLOOD (U) 1+(A) NEGATIVE 10/28/2024 9:59 PM [facility] MUCUS FEW /LPF 10/28/2024 9:59 PM [facility] WBC/HPF 4 <6 /HPF 10/28/2024 9:59 PM [facility] RBC/HPF 11(H) <6 /HPF 10/28/2024 9:59 PM [facility] SQUAMOUS EPITHELIALS RARE /HPF 10/28/2024 9:59 PM [facility] URINE SPECIMEN OBTAINED BY CLEAN CATCH PROCEDURE / Unknown 10/28/2024 9:35 PM AIRCRAFT AVIONICS TECHNICIAN us Pam MAY URINE ORDERABLES Final Result Performing Organization Address City/[facility]/ZIP Co de Phone Number [facility] [address] [place] [address], [place] [phone] * STREP A RAPID (10/28/2024 9:35 PM AIRCRAFT AVIONICS TECHNICIAN) SPECIMEN TYPE THROAT 10/28/2024 9:29 PM AIRCRAFT AVIONICS TECHNICIAN [facility] RAPID STREP TEST NEGATIVE NEGATIVE 10/28/2024 10:10 PM AIRCRAFT AVIONICS TECHNICIAN [facility] STRUCTURE OF ANTERIOR PORTION OF NECK / Unknown 10/28/2024 9:35 PM AIRCRAFT AVIONICS TECHNICIAN us Pam MAY MICROBIOLOGY - GENERAL ORDERAB LES Final Result Performing Organization Address City/[facility]/ZIP Co de Phone Number [facility] [address] [place] [address], [place] [phone] * (ABNORMAL) COMPREHENSIVE METABOLIC PANEL (10/28/2024 9:35 PM AIRCRAFT AVIONICS TECHNICIAN) GLUCOSE 89 70 - 99 MG/DL 10/28/2024 10:17 PM AIRCRAFT AVIONICS TECHNICIAN [facility] BUN 28(H) 7 - 18 MG/DL 10/28/2024 10:17 PM AIRCRAFT AVIONICS TECHNICIAN [facility] CREATININE S/P/B 1.08(H) 0.55 - 1.02 MG/DL 10/28/2024 10:17 PM AIRCRAFT AVIONICS TECHNICIAN [facility] SODIUM S/P/B 140 136 - 145 MMOL/L 10/28/2024 10:17 PM AIRCRAFT AVIONICS TECHNICIAN [facility] POTASSIUM S/P/B 4.0 3.5 - 5.1 MMOL/L 10/28/2024 10:17 PM AIRCRAFT AVIONICS TECHNICIAN [facility] CHLORIDE S/P/B 107 97 - 115 MMOL/L 10/28/2024 10:17 PM [facility] CO2 30.2 21 - 32 MMOL/L 10/28/2024 10:17 PM [facility] CALCIUM S/P/B 8.7 8.5 - 10.1 MG/DL 10/28/2024 10:17 PM [facility] BILIRUBIN TOTAL S/P/B 0.4 0.2 - 1.2 MG/DL 10/28/2024 10:17 PM [facility] Comment: THIS ASSAY IS NOT RECOMMENDED FOR PATIENTS UNDERGOING TREATMENT WITH ELTROMBOPAG DUE TO THE POTENTIAL FOR FALSELY ELEVATED RESULTS. TOTAL PROTEIN S/P/B 6.8 6.4 - 8.2 G/DL 10/28/2024 10:17 PM [facility] ALBUMIN S/P/B 3.6 3.4 - 5.0 G/DL 10/28/2024 10:17 PM [facility] AST 20 15 - 37 U/L 10/28/2024 10:17 PM [facility] ALT 26 14 - 55 U/L 10/28/2024 10:17 PM [facility] ALKALINE PHOSPHATASE S/P/B 84 50 - 136 U/L 10/28/2024 10:17 PM [facility] ANION GAP 2.8 2 - 10 MMOL/L 10/28/2024 10:17 PM [facility] BUN CREATININE RATIO 25.9 6 - 26 10/28/2024 10:17 PM [facility] A/G RATIO 1.1 1.0 - 2.0 RATIO 10/28/2024 10:17 PM [facility] GFR ESTIMATE 63(L) >90 ML/MIN/1.7 3 M2 10/28/2024 10:17 PM [facility] Comment: NOTE: eGFR is not calculated for patients <18 years of age or gender unknown. This is an estimated GFR calculation using the new CKD EPI creatinine equation without race and so does not require a correction factor for race. This estimated GFR should not be used for calculating drug doses. 10/28/2024 9:35 PM AIRCRAFT AVIONICS TECHNICIAN Pam MAY LABORATORY Final Result [facility] [address] [place] [address], [place] [phone] * HETEROPHILE ANTIBODIES,SCREEN (10/28/2024 9:35 PM AIRCRAFT AVIONICS TECHNICIAN) Pathologist [facility] [place] MONO TEST NEGATIVE NEGATIVE 10/29/2024 1:49 PM AIRCRAFT AVIONICS TECHNICIAN [facility] 10/28/2024 9:35 PM AIRCRAFT AVIONICS TECHNICIAN Pam MAY LABORATORY Final Result Performing Organization Address City/[facility]/ZIP Co de Phone Number [facility] [address] [place] [address], [place] [phone] * (ABNORMAL) CBC W/DIFF AUTOMATED (10/28/2024 9:35 PM AIRCRAFT AVIONICS TECHNICIAN) [facility] WBC 10.18 4.5 - 11.0 x10'3/uL 10/28/2024 9:55 PM AIRCRAFT AVIONICS TECHNICIAN [facility] RBC 4.40 4.20 - 5.40 x10'6/uL 10/28/2024 9:55 PM AIRCRAFT AVIONICS TECHNICIAN [facility] HGB 14.2 12.0 - 16.0 G/DL 10/28/2024 9:55 PM AIRCRAFT AVIONICS TECHNICIAN [facility] HCT 42.7 38.0 - 48.0 % 10/28/2024 9:55 PM AIRCRAFT AVIONICS TECHNICIAN [facility] MCV 97.0 81.0 - 99.0 FL 10/28/2024 9:55 PM AIRCRAFT AVIONICS TECHNICIAN [facility] MCH 32.3(H) 27.0 - 31.0 PG 10/28/2024 9:55 PM AIRCRAFT AVIONICS TECHNICIAN [facility] MCHC 33.3 32.0 - 36.0 G/DL 10/28/2024 9:55 PM AIRCRAFT AVIONICS TECHNICIAN [facility] RDW 12.9 11.5 - 14.5 % 10/28/2024 9:55 PM AIRCRAFT AVIONICS TECHNICIAN [facility] PLT 224 130 - 400 x10'3/uL 10/28/2024 9:55 PM AIRCRAFT AVIONICS TECHNICIAN [facility] MPV 9.9 9.3 - 12.2 FL 10/28/2024 9:55 PM AIRCRAFT AVIONICS TECHNICIAN [facility] DIFFERENTIAL TYPE AUTOMATED DIFFERENTIAL 10/28/2024 9:55 PM AIRCRAFT AVIONICS TECHNICIAN [facility] NEUTROPHILS % 60.2 % 10/28/2024 9:55 PM AIRCRAFT AVIONICS TECHNICIAN [facility] LYMPHOCYTES % 32.7 % 10/28/2024 9:55 PM [facility] MONOCYTES % 5.4 % 10/28/2024 9:55 PM AIRCRAFT AVIONICS TECHNICIAN [facility] EOSINOPHILS 0.7 % 10/28/2024 9:55 PM AIRCRAFT AVIONICS TECHNICIAN [facility] BASOPHILS 0.5 % 10/28/2024 9:55 PM AIRCRAFT AVIONICS TECHNICIAN [facility] IMMATURE GRANS % 0.5 % 10/28/20 9:55 PM AIRCRAFT AVIONICS TECHNICIAN [facility] ABS. NEUTROPHILS 6.13 1.80 - 7.70 x10'3/uL 10/28/2024 9:55 PM AIRCRAFT AVIONICS TECHNICIAN [facility] ABS. LYMPHOCYTES 3.33 1.00 - 4.80 x10'3/uL 10/28/2024 9:55 PM AIRCRAFT AVIONICS TECHNICIAN [facility] ABS. MONOCYTES 0.55 0.24 - 0.86 x10'3/uL 10/28/2024 9:55 PM AIRCRAFT AVIONICS TECHNICIAN [facility] ABS. EOSINOPHILS 0.07 0.04 - 0.36 x10'3/uL 10/28/2024 9:55 PM AIRCRAFT AVIONICS TECHNICIAN [facility] ABS. BASOPHILS 0.05 0.01 - 0.08 x10'3/uL 10/28/2024 9:55 PM AIRCRAFT AVIONICS TECHNICIAN [facility] ABS. IMMATURE GRANULOCYTES 0.05 0.00 - 0.49 x10'3/uL 10/28/2024 9:55 PM AIRCRAFT AVIONICS TECHNICIAN [facility] 10/28/2024 9:35 PM AIRCRAFT AVIONICS TECHNICIAN us Pam MAY LABORATORY Final Result Performing Organization Address City/State/[facility] Co de Phone Number [facility] [address] [place] [address], * XR CHEST PORTABLE (10/28/2024 8:39 PM AIRCRAFT AVIONICS TECHNICIAN) Anatomical Region Laterality Modality Chest Radiographic Rosi ging 10/28/2024 8:51 PM AIRCRAFT AVIONICS TECHNICIAN Impressions 10/28/2024 8:52 PM AIRCRAFT AVIONICS TECHNICIAN IMPRESSION: No acute findings. Ordered By: PAM SAEZ Interpreted By: Dima Manzanares MD, 10/28/2024 8:51 PM Narrative 10/28/2024 8:52 PM AIRCRAFT AVIONICS TECHNICIAN [facility] [address] [place], [place] [address] Examination: X-ray chest, 1 view Exam time: 10/28/2024 at 2032 hours Clinical history: Cough. Flu. Comparison: 01/08/2024 Technique: Single frontal upright view of the chest obtained. FINDINGS: No parenchymal consolidation. No discrete pneumothorax or large pleural effusion. Cardiomediastinal silhouette unchanged. Procedure Note Dima Manzanares MD - 10/28/2024 [facility] [address] [place], [place] [address] Examination: X-ray chest, 1 view Exam time: 10/28/2024 at 2032 hours Clinical history: Cough. Flu. Comparison: 01/08/2024 Technique: Single frontal upright view of the chest obtained. FINDINGS: No parenchymal consolidation. No discrete pneumothorax or large pleuraleffusion. Cardiomediastinal silhouette unchanged. IMPRESSION: No acute findings. Ordered By: PAM SAEZ Interpreted By: Dima Manzanares MD, 10/28/2024 8:51 PM Pam Saez MA GENERAL IMAGING Final Result * MAMMOGRAM GENERIC (08/19/2020) Anatomical Region Laterality Modality Other 08/19/2020 Narrative 08/19/2020 Ordered by an unspecified provider. us Documents Scanned SCANNING Final Result * (ABNORMAL) LIPID PANEL (12/08/2018 9:28 AM AIRCRAFT AVIONICS TECHNICIAN) CHOLESTEROL 182 <200 MG/DL 12/08/2018 7:45 PM AIRCRAFT AVIONICS TECHNICIAN [facility] TRIGLYCERIDES 96 <150 MG/DL 12/08/2018 7:45 PM AIRCRAFT AVIONICS TECHNICIAN [facility] HDL 57 >40.0 MG/DL 12/08/2018 7:45 PM [facility] LDL (CALCULATED) 106(H) <100 MG/DL 12/08/2018 7:45 PM [facility] NON HDL CHOLESTEROL 125 <130 MG/DL 12/08/2018 7:45 PM AIRCRAFT AVIONICS TECHNICIAN [facility] CHOL/HDL RATIO 3.2 0.0 - 4.5 12/08/2018 7:45 PM [facility] VLDL CALCULATION 19 5 - 55 MG/DL 12/08/2018 7:45 PM [facility] LIPID INTERPRETATION 12/08/2018 7:45 PM [facility] Comment: [facility] REPORT RECOMMENDATIONS: ADULT CHILD LOW RISK: CHOLESTEROL <200 <170 TRIGLYCERIDE <150 --- HDL >=60 --- LDL <100 <110 BORDERLINE: CHOLESTEROL 200-239 170-199 TRIGLYCERIDE 150-199 --- HDL 40-59 --- LDL 100-159 110-129 HIGH RISK: CHOLESTEROL >=240 >=200 TRIGLYCERIDE >=200 --- HDL <40 --- LDL >=160 >=130 12/08/2018 9:28 AM AIRCRAFT AVIONICS TECHNICIAN Rose Marie Norton NP LABORATORY Final Result [facility] [address] [place] [address], from Last 3 Months or Most Recently Relevant to Health Maintenance Insurance [address] [place] [address] Advance Directives * Full Code (Latest Code Status on File) Date Activated Date Inactivated Comments 06/01/2019 2:39 AM 06/04/2019 12:03 PM Care Teams Investigation Officer Relationship Specialty Start Date End Date Juanis Richards NP [address] [id number] PCP - General Nurse Practitioner Family 10/28/24
--- OUTSIDE RECORDS SUMMARY | 2025-01-12 10:27 | XMS_ITS | Patient Health Summary ---
Author Organization [facility] Address [address] [place] [address] Care Team Providers Care Project Management Engineer Name Role Phone Unavailable Primary Care Provider Unavailabl e Note from [facility],non-owned Affiliates and Associated Physician Practices is amultiple site organization consisting of ambulatory clinics and hospital sitesin [place], [place], [place] and [place]. This disclosure is being madepursuant to the Care Everywhere program and may not contain all information available regarding this patient. Last updated 18.[facility] Allergies * Amoxicillin(Rash,Unknown) -Medium Criticality * Iodine(Urticaria) -High Criticality Medications * Be aware that medications may not be up to date on this document. Alwaysverify current medications with the patient. * Multiple Vitamins-Minerals (CENTRUM SILVER PO) * CALCIUM CITRATE PO * nystatin (MYCOSTATIN) 079180 UNIT/GM cream(Started 03/10/2022) Apply to affected area 2 times daily 2 refills by 03/10/2023 * vitamin D, ergocalciferol, (Drisdol) 1.25 MG (78377 UT) capsule(Started 01/03/2023) Take 1 (one) capsule [...] Sex Assigned at Female 11/25/2020 1:10 PM PREDATORY HUNTER Gender Identity Female 11/25/2020 1:10 PM PREDATORY HUNTER Sexual Orientation Straight 02/02/2021 4: 18 PM [...] sleeve gastrectomy, Hyperparathyroidism due tovitamin D deficiency ([facility]/HCC) * VITAMIN D 25-HYDROXY(Performed 12/30/2022) Performed for Vitamin D deficiency, S/P laparoscopic sleeve gastrectomy, Hyperparathyroidism due tovitamin D deficiency ([facility]/HCC) * IRON + TRANSFERRIN PANEL(Performed 12/30/2022) Performed for S/P laparoscopic sleeve gastrectomy, Iron deficiency * CARDIAC RHYTHM STRIP ORDER(Performed 12/09/2022) * GROSS + MICRO EXAM (ILL)(Performed 12/08/2022) Performed for Gastroesophageal reflux disease, unspecified whether esophagitis present, S/P bariatric surgery * WV EGD FLEX TRANSORAL W BX SNGL [...] 03/09/2021) Performed for Morbid obesity (HCC) * WV LAP SLEEVE GASTRECTOMY(Performed 03/09/2021) Performed for Morbid obesity (HCC) * BLOOD TYPE VERIFICATION(Performed 03/06/2021) * TYPE + SCREEN PANEL(Performed 03/06/2021) Performed for Pre-op exam * SARS-COV-2 (COVID-19) IN HOUSE(Performed 03/06/2021) Performed for Pre-op exam * SARS-COV-2 (COVID-19) PANEL (SOIL)(Performed 03/06/2021) Performed for Pre-op exam * GROSS + MICRO EXAM (ILL)(Performed 02/23/2021) Performed for Gastroesophageal reflux disease, unspecified whether esophagitis present * WV EGD FLEX TRANSORAL W BX SNGL OR MULT(Performed 02/23/2021) Performed for Gastroesophageal reflux disease, unspecified whether esophagitis present * SARS-COV-2 (COVID-19) IN HOUSE(Performed 02/20/2021) Performed for Pre-operative laboratory examination * SARS-COV-2 (COVID-19) PANEL (SOIL)(Performed 02/20/2021) Performed for Pre-operative laboratory examination * GROSS + MICRO EXAM (ILL)(Performed 02/02/2021) Performed for Gastroesophageal reflux disease, unspecified whether esophagitis present * WV EGD FLEX TRANSORAL W BX SNGL [...] * (ABNORMAL) PTH INTACT+CALCIUM (12/30/2022 10:30 AM PREDATORY HUNTER) Pathologist [facility] PTH Intact 39 15 - 65 pg/mL 01/01/2023 1:23 PM PREDATORY HUNTER [facility] ([facility]) Calcium 10.1(H) 8.6 - 10.0 mg/dL 01/01/2023 1:23 PM PREDATORY HUNTER [facility] ([facility]) Comment: Performed By: [place] [address] Rest Room Matron: Zach Bello MD, PhD Blood BLOOD SPECIMEN / Unknown Lab Venipuncture / Unknown 12/30/2022 10:30 AM PREDATORY HUNTER 12/30/2022 10:41 AM PREDATORY HUNTER Vianey Llanes APRN-COMMUNITY REPRESENTATIVE LAB - CHEMISTRY ORDERABLES Performing Organization Address [facility]/ZIP Co de Phone Number [facility]) [address] [place] [address] * VITAMIN B1 (12/30/2022 10:30 AM PREDATORY HUNTER) [facility] Vitamin B1 Whole Blood 111 70 - 180 nmol/L 01/03/2023 7:30 AM PREDATORY HUNTER [facility] ([facility]) Comment: INTERPRETIVE INFORMATION: Vitamin B1, Whole Blood This assay measures the concentration of thiamine diphosphate (TDP), the primary active form of vitamin B1. Approximately 90 percent of vitamin B1 present in whole blood is TDP. Thiamine and thiamine monophosphate, which comprise the remaining 10 percent, are not measured. This test was developed and its performance characteristics determined by [facility]. It has not been cleared or approved by the US Food and Drug Administration. This test was performed in a CLIA certified laboratory and is intended for clinical purposes. Performed By: [facility] [address] [place] [address] Rest Room Matron: Zach Bello MD, PhD Blood BLOOD SPECIMEN / Unknown Lab Venipuncture / Unknown 12/30/2022 10:30 AM PREDATORY HUNTER 12/30/2022 10:41 AM PREDATORY HUNTER Vianey Llanes APRN-COMMUNITY REPRESENTATIVE LAB - CHEMISTRY ORDERABLES Performing Organization Address City/[facility]/ZIP Co de Phone Number [facility]) [address] [place] [address] * (ABNORMAL) VITAMIN D 25-HYDROXY (12/30/2022 10:30 AM PREDATORY HUNTER) Vitamin D, 25 Hydroxy 28.2(L) 30 - 100 ng/mL 12/30/2022 11:22 AM PREDATORY HUNTER [facility] Blood BLOOD SPECIMEN / Unknown Lab Venipuncture / Unknown 12/30/2022 10:30 AM PREDATORY HUNTER 12/30/2022 10:41 AM PREDATORY HUNTER Narrative [facility] - 12/30/2022 11:22 AM PREDATORY HUNTER Reference Values: The recommendation for 25-Hydroxy Vitamin [...] performed to confirm the result. Vianey Llanes MEDICAL DATA ENTRY CLERK-COMMUNITY REPRESENTATIVE LAB - CHEMISTRY ORDERABLES Performing Organization Address City/State/[facility] Co de Phone Number [facility] [address] * NICOTINE + METABOLITES BLOOD (12/30/2022 10:30 AM PREDATORY HUNTER) Only the most recent of3 resultswithin the time period is included. Nicotine <5 ng/mL 01/04/2023 1:35 AM [facility] ([facility]) Comment: Consistent with abstinence from [...] developed and its performance characteristics determined by [facility]. It has not been cleared or approved by the US Food and Drug Administration. This test was performed in a CLIA certified laboratory and is intended for clinical purposes. Performed By: [facility] [address] [place] [address] Rest Room Matron: Zach Bello MD, PhD Cotinine <5 ng/mL 01/04/2023 1:35 AM PREDATORY HUNTER [facility]) Blood BLOOD SPECIMEN / Unknown Lab Venipuncture / Unknown 12/30/2022 10:30 AM PREDATORY HUNTER 12/30/2022 10:41 AM PREDATORY HUNTER Raisa Schmidt MD LAB - CHEMISTRY ORDERABLES [facility]) [address] * IRON + TRANSFERRIN PANEL (12/30/2022 10:30 AM PREDATORY HUNTER) Pathologist [facility] Iron 98 50 - 170 ug/dL 12/30/2022 [...] Lab Venipuncture / Unknown 12/30/2022 10:30 AM PREDATORY HUNTER 12/30/2022 10:41 AM PREDATORY HUNTER Vianey Llanes MEDICAL DATA ENTRY CLERK-COMMUNITY REPRESENTATIVE LAB - CHEMISTRY ORDERABLES [facility] [address] * CARDIAC RHYTHM STRIP ORDER (12/09/2022 12:15 PM PREDATORY HUNTER) Only the most recent of2 resultswithin the time period is included. Narrative 12/09/2022 12:15 PM PREDATORY HUNTER Ordered by an unspecified provider. Scanned Document CARDIAC SERVICES ORD ERABLES * GROSS + MICRO EXAM (ILL) (12/08/2022 9:16 AM [facility]) Only the most recent of4 resultswithin the time period is included. Case Report Surgical Pathology Report Case: [id number] Authorizing Provider: Raisa Schmidt MD Collected: 12/08/2022 09:16 AM Ordering Location: [facility] Received: 12/08/2022 02:21 PM Pathologist: Chuckie [...] were determined by the Histopathology Laboratory of [facility]. Some of these tests were developed [...] H&E slides and special stains prepared at [facility], [place]. [address] (CLIA# [id number]) unless otherwise specified. This case was interpreted by the [facility] Department of Pathology. When applicable, select reference laboratory testing is performed at the [facility], [address] [place] [address]. 12/09/2022 11:00 AM PREDATORY HUNTER [facility] Embedded Images 12/09/2022 11:00 AM PREDATORY HUNTER [facility] Pathology/Cytology GASTRIC ANTRAL BIOPSY SPECIMEN / Unknown 12/08/2022 9:16 AM PREDATORY HUNTER 12/08/2022 2:21 PM PREDATORY HUNTER Comment:Pre-op diagnosis: Gastroesophageal reflux disease, unspecified whether esophagitis present [K21.9] S/P bariatric surgery [Z98.84] Raisa Schmidt MD LAB - PATHOLOGY/ CYTOLOGY ORDERABLES Performing Organization Address [facility] Co de Phone Number [facility] [address] * GLUCOSE - POINT OF CARE (03/10/2021 11:41 AM CDT) Only the most recent of8 resultswithin the time period is included. Glucose WB/POC 100 70 - 125 mg/dL 03/10/2021 11:45 AM CDT [facility] Specimen Type Arterial/C apillary 03/10/2021 11:45 AM CDT [facility] Blood BLOOD SPECIMEN / Unknown 03/10/2021 11:41 AM CDT 03/10/2021 11:45 AM CDT Rehan Mendoza MD LAB - POINT OF CARE ORDERABLES Performing Organization Address [facility] Co de Phone Number [facility] [address] * (ABNORMAL) CBC W AUTO DIFFERENTIAL (03/10/2021 4:13 AM CDT) Only the most recent of2 resultswithin the time period is included. WBC 10.7(H) 4.0 - 10.0 x10E9/L 03/10/2021 4:37 AM [facility] RBC 4.37 3.93 - 5.22 x10E12/L 03/10/2021 4:37 AM [facility] Hemoglobin 13.3 11.2 - 15.7 gm/dL 03/10/2021 4:37 AM [facility] Hematocrit 39.7 34.1 - 44.9 % 03/10/2021 4:37 AM [facility] MCV 90.8 78.0 - 100.0 fl 03/10/2021 4:37 AM [facility] MCH 30.4 25.6 - 34.0 pg 03/10/2021 4:37 AM [facility] MCHC 33.5 32.3 - 36.5 gm/dL 03/10/2021 4:37 AM [facility] RDW 13.3 11.6 - 14.4 % 03/10/2021 4:37 AM [facility] MPV 10.1 9.4 - 12.4 fl 03/10/2021 4:37 AM [facility] Platelet Count 243 163 - 369 x10E9/L 03/10/2021 4:37 AM [facility] Neutrophils % 74.0 40.0 - 75.0 % 03/10/2021 4:37 AM [facility] Lymphocytes % 19.2(L) 19.3 - 53.1 % 03/10/2021 4:37 AM [facility] Monocytes % 6.6 4.7 - 12.5 % 03/10/2021 4:37 AM [facility] Eosinophils % 0.0(L) 0.7 - 7.0 % 03/10/2021 4:37 AM [facility] Basophils % 0.1 0.1 - 1.2 % 03/10/2021 4:37 AM [facility] Immature Granulocytes 0.1 0 - 0.5 % 03/10/2021 4:37 AM [facility] Neutrophil Absolute 7.88(H) 1.56 - 6.13 x10E9/L 03/10/2021 4:37 AM CDT [facility] Lymphocytes Absolute 2.05 1.18 - 3.74 x10E9/L 03/10/2021 4:37 AM CDT [facility] Monocytes Absolute 0.70 0.24 - 0.86 x10E9/L 03/10/2021 4:37 AM CDT [facility] Eosinophils Absolute 0.00(L) 0.04 - 0.54 x10E9/L 03/10/2021 4:37 AM CDT [facility] Basophils Absolute 0.01 0.01 - 0.08 x10E9/L 03/10/2021 4:37 AM CDT [facility] Immature Granulocytes Absolute 0.01 0 - 0.03 x10E9/L 03/10/2021 4:37 AM CDT [facility] nRBC Auto 0 <=0 /100 WBC 03/10/2021 4:37 AM CDT [facility] nRBC Absolute 0.00 <=0 x10E9/L 03/10/2021 4:37 AM T [facility] Blood BLOOD SPECIMEN / Unknown Lab Venipuncture / Unknown 03/10/2021 4:13 AM CDT 03/10/2021 4:33 AM CDT Rehan Mendoza MD LAB - HEMATOLOGY ORD ERABLES Performing Organization Address City/State/[facility] Co de Phone Number [facility] [address] * (ABNORMAL) COMPREHENSIVE METABOLIC PANEL (03/10/2021 4:13 AM CDT) Only the most recent of2 resultswithin the time period is included. [facility] Signature Glucose 101 70 - 125 mg/dL 03/10/2021 4:57 AM CDT [facility] Sodium 139 136 - 145 mmol/L 03/10/2021 4:57 AM CDT [facility] Potassium 3.5 3.4 - 4.5 mmol/L 03/10/2021 4:57 AM CDT [facility] Chloride 106 98 - 107 mmol/L 03/10/2021 4:57 AM CDT [facility] CO2 22 22 - 29 mmol/L 03/10/2021 4:57 AM T [facility] Calcium 8.7 8.4 - 10.2 mg/dL 03/10/2021 4:57 AM CDT [facility] Anion Gap 15 10 - 20 mmol/L 03/10/2021 4:57 AM CDT [facility] BUN 8.7(L) 9.8 - 20.1 mg/dL 03/10/2021 4:57 AM CDT [facility] Creatinine 0.91 0.57 - 1.11 mg/dL 03/10/2021 4:57 AM CDT [facility] eGFR by MDRD >60 >60 mL/min/1.7 3m2 03/10/2021 4:57 AM CDT [facility] eGFR by MDRD >60 >60 mL/min/1.7 3m2 03/10/2021 4:57 AM CDT [facility] Alkaline Phosphatase 47 40 - 150 U/L 03/10/2021 4:57 AM CDT [facility] ALT 54 5 - 55 U/L 03/10/2021 4:57 AM CDT [facility] AST 52(H) 5 - 34 U/L 03/10/2021 4:57 AM T [facility] Protein Total 6.2(L) 6.4 - 8.3 gm/dL 03/10/2021 4:57 AM CDT [facility] Albumin 3.4(L) 3.5 - 5.0 gm/dL 03/10/2021 4:57 AM CDT [facility] Globulin Total 2.8 2.6 - 4.0 gm/dL 03/10/2021 4:57 AM CDT [facility] Albumin/Globulin Ratio 1.2 0.9 - 1.6 03/10/2021 4:57 AM CDT [facility] Bilirubin Total 0.6 0.2 - 1.2 mg/dL 03/10/2021 4:57 AM T [facility] Blood BLOOD SPECIMEN / Unknown Lab Venipuncture / Unknown 03/10/2021 4:13 AM CDT 03/10/2021 4:33 AM CDT Rehan Mendoza MD LAB - CHEMISTRY KARLEE AVINA [facility] Organization Address City/State/[facility] Co de Phone Number [facility] [address] * PHOSPHORUS BLOOD (03/10/2021 4:13 AM CDT) Only the most recent of2 resultswithin the time period is included. Phosphorus 2.5 2.3 - 4.7 mg/dL 03/10/2021 4:58 AM CDT [facility] Blood BLOOD SPECIMEN / Unknown Lab Venipuncture / Unknown 03/10/2021 4:13 AM CDT 03/10/2021 4:33 AM CDT Rehan Mendoza MD LAB - CHEMISTRY KARLEE AVINA Performing Organization Address City/[facility]/ZIP Co de Phone Number [facility] [address] [place] [address] * MAGNESIUM BLOOD (03/10/2021 4:13 AM CDT) Only the most recent of3 resultswithin the time period is included. Magnesium 2.1 1.6 - 2.6 mg/dL 03/10/2021 4:58 AM CDT [facility] Blood BLOOD SPECIMEN / Unknown Lab Venipuncture / Unknown 03/10/2021 4:13 AM CDT 03/10/2021 4:33 AM CDT Rehan Mendoza MD LAB - CHEMISTRY KARLEE AVINA Performing Organization Address [facility] Co de Phone Number [facility] [address] [place] [address] * BLOOD TYPE VERIFICATION (03/06/2021 7:14 AM CDT) ABO Rh O POS 03/06/2021 8:5 9 AM CDT [facility] Blood Bank BLOOD SPECIMEN / Unknown Lab Venipuncture / Unknown 03/06/2021 7:14 AM CDT 03/06/2021 7:17 AM CDT Aysha Evans MD LAB - BLOOD BANK ORD ESHA Performing Organization Address [facility] Co de Phone Number [facility] [address] [place] [address] * TYPE + SCREEN PANEL (03/06/2021 7:12 AM CDT) ABO Rh O POS 03/06/2021 9:20 AM CDT [facility] Antibody Screen NEG 9:20 AM CDT [facility] Blood Bank BLOOD SPECIMEN / Unknown Lab Venipuncture / Unknown 03/06/2021 7:12 AM CDT 03/06/2021 7:17 AM CDT Aysha Evans MD LAB - BLOOD BANK ORD ERABLES [facility] [address] [place], [place] [id number] [place] [address] * SARS-COV-2 (COVID-19) IN HOUSE (03/06/2021 6:11 AM CDT) Only the most recent of3 resultswithin the time period is included. Pathologist [facility] COVID-19 PCR Not detected Not detected 03/07/2021 5:24 AM CDT [facility] Microbiology SPECIMEN FROM NASOPHARYNGEAL STRUCTURE / Unknown Collection / Unknown 03/06/2021 6:11 AM CDT 03/06/2021 8:43 AM CDT Narrative [facility] - 03/07/2021 5:24 AM CDT This nucleic acid amplification assay performance was validated by [facility]. This test has been authorized [...] Mendoza MD LAB - MICROBIOLOGY O RDERABLES [facility] [address] [place] [address], [facility] [phone]
--- OUTSIDE RECORDS SUMMARY | 2025-01-12 10:27 | XMS_ITS | Clinical Summary ---
Author Organization [facility] Address [address] [place] [address] Care Team Providers Care Steelscope Operator Name Role Phone Unavailable Primary Care Provider Unavailabl e Source Comments [facility],non-owned Affiliates and Associated Physician Practices is amultiple site organization consisting of ambulatory clinics and hospital sitesin [place], [place], [place] and [place]. This disclosure is being madepursuant to the Care Everywhere program and may not contain all information available regarding this patient. Last updated 18.[facility] Allergies Active Allergy Reactions Criticality Noted Date Comments Amoxicillin Rash,Unknown Medium 12/08/2018 Iodine Urticaria High 01/24/2023 Medications * Be aware that medications may not be up to date on this document. Alwaysverify current medications with the patient. Medication Sig Dispensed Refills Start Date End Date Status Multiple Vitamins-Minerals (CENTRUM SILVER PO) Activ e CALCIUM CITRATE PO Active nystatin (MYCOSTATIN) 925703 UNIT/GM cream Apply to affected area 2 times daily 15 g 2 03/10/2022 Active Additional Information Patient not taking.Reported on 03/09/2023 vitamin D, ergocalciferol, (Drisdol) 1.25 MG (08337 UT) capsuleIndications: Vitamin D Deficiency Take 1 [...] Assigned at Female 11/25/2020 1:10 PM PRINT SHOP ASSISTANT Gender Identity Female 11/25/2020 1:10 PM PRINT SHOP ASSISTANT Sexual Orientation Straight 02/02/2021 4: 18 [...] HEALTHCARE Health [facility] [address] [place] [phone] Vianey Llanes, CHIEF ARCHITECT-COMMERCIAL GLAZIER [address] [place], [place] [phone] 03/15/2025 10:30 AM CDT Clinical Support [facility] [address] [place] [phone] Health Maintenance Due Date Last Done Comments [...] COMPREHENSIVE METABOLIC PANEL (03/10/2021 4:13 AM CDT) [facility] Signature Glucose 101 70 - 125 mg/dL 03/10/2021 4:57 AM [facility] Sodium 139 136 - 145 mmol/L 03/10/2021 4:57 AM [facility] Potassium 3.5 3.4 - 4.5 mmol/L 03/10/2021 4:57 AM [facility] Chloride 106 98 - 107 mmol/L 03/10/2021 4:57 AM T [facility] CO2 22 22 - 29 mmol/L 03/10/2021 4:57 AM [facility] Calcium 8.7 8.4 - 10.2 mg/dL 03/10/2021 4:57 AM [facility] Anion Gap 15 10 - 20 mmol/L 03/10/2021 4:57 AM [facility] BUN 8.7(L) 9.8 - 20.1 mg/dL 03/10/2021 4:57 AM [facility] Creatinine 0.91 0.57 - 1.11 mg/dL 03/10/2021 4:57 AM [facility] eGFR by MDRD >60 >60 mL/min/1.7 3m2 03/10/2021 4:57 AM [facility] eGFR by MDRD >60 >60 mL/min/1.7 3m2 03/10/2021 4:57 AM [facility] Alkaline Phosphatase 47 40 - 150 U/L 03/10/2021 4:57 AM [facility] ALT 54 5 - 55 U/L 03/10/2021 4:57 AM [facility] AST 52(H) 5 - 34 U/L 03/10/2021 4:57 AM [facility] Protein Total 6.2(L) 6.4 - 8.3 gm/dL 03/10/2021 4:57 AM [facility] Albumin 3.4(L) 3.5 - 5.0 gm/dL 03/10/2021 4:57 AM [facility] Globulin Total 2.8 2.6 - 4.0 gm/dL 03/10/2021 4:57 AM CDT [facility] Albumin/Globulin Ratio 1.2 0.9 - 1.6 03/10/2021 4:57 AM CDT [facility] Bilirubin Total 0.6 0.2 - 1.2 mg/dL 03/10/2021 4:57 AM CDT [facility] Blood BLOOD SPECIMEN / Unknown Lab Venipuncture / Unknown 03/10/2021 4:13 AM CDT 03/10/2021 4:33 AM CDT Rehan Mendoza MD LAB - CHEMISTRY KARLEE AVINA [facility] Organization Address City/State/ZIP Co de Phone Number [facility] [address] from Last 3 Months or Most Recently Relevant to Health Maintenance Advance Directives * Full Code (Latest Code Status on File) Date Activated Date Inactivated Comments 03/09/2021 11:13 AM 03/10/2021 2:16 PM
--- OUTSIDE RECORDS SUMMARY | 2025-01-12 10:27 | XMS_ITS | Clinical Summary ---
Author Organization [facility] Care Team Providers Care Surgery Nurse Name Role Phone Unavailable Primary Care Provider Unavailabl e Social History Tobacco Use Types Packs/Day Years Used Date Smoking Tobacco: Never Assessed Comments Unknown Sex and Gender Information Value Date Recorded Sex Assigned at Not on file Legal Sex Female 8:04 AM OUTSIDE SALES ACCOUNT EXECUTIVE Gender Identity Not on file Sexual Orientation [...]
--- OUTSIDE RECORDS SUMMARY | 2025-01-12 10:27 | XMS_ITS | Encounter Summary ---
Author Organization [facility] Care Team Providers Care Bailing Machine Operator Name Role Phone No, Physician Primary Care Provider Rose Marie Norton NP Primary Care Provider [phone] Rehan Mendoza MD Primary Care Provider [phone] Rose Marie Norton NP Primary Care Provider [phone] Neil Stinson MD Primary Care Provid er Encounter Details Date Type Department Care Team (Latest Contact Info) Description 11/15/2018 Orders Only [facility]INCON[facility] ProviderErin MD [address] [place] [id number] Social History Tobacco Use Types Packs/Day Years Used Date Smoking Tobacco: Never Assessed Comments Unknown Sex and Gender Information Value Date Recorded Sex Assigned at Not on file Legal Sex Female 11:50 AM CORPSMAN Gender Identity Not on file Sexual Orientation Not on file documented as of this encounter Plan of Treatment Not on file documented as of this encounter Procedures Procedure Name Priority Date/Time Associated Diagnosis Comments SCAN - PATHOLOGY 11/15/2018 12:0 0 AM CORPSMAN documented in this encounter Results * SCAN - PATHOLOGY (11/15/2018 12:00 AM CORPSMAN) Narrative 11/15/2018 12:00 AM CORPSMAN Ordered by an unspecified provider. us Historical Provider Final Res ult documented in this encounter Visit Diagnoses Not on filedocumented in this encounter Care Teams Bailing Machine Operator Relationship Specialty Start Date End Date No, Physician PCP - General 11/21/18 12/21/18 Rose Marie Norton, REGIONAL TELECOMMUNICATIONS SPECIALIST [address] [place] [address] PCP - General 12/22/18 09/07/20 Rehan Mendoza MD [address] [facility] [place], [place] [address] PCP - General 09/08/20 12/17/20 Rose Marie Norton, REGIONAL TELECOMMUNICATIONS SPECIALIST [address], [place] [id number] PCP - General 12/18/20 12/14/21 Neil Stinson MD [address] [place] [id number] PCP - General Family Medicine 12/15/21 documented as of this encounter
--- OUTSIDE RECORDS SUMMARY | 2025-01-12 10:27 | XMS_ITS | Clinical Summary ---
Author Organization [place] [address] [facility] Address [facility] [place] [address] Care Team Providers Care Waistband Setter Lockstitch Name Role Phone Neil Stinson MD Primary [...] Type Department Care Team Description 12/17/2024 Telephone [facility] [address] [address] Jaxon Hoffmann Si, MD Scheduling Appointments (Reschedule EMG appointment ) 11/22/2024 11:00 AM PATTERN CHAIN BUILDER Office Visit [facility] Neu[facility] [address] [place] [phone] Michael Rodriguez MD Radicular pain of left upper extremity (Primary Dx); Anesthesia of skin; Paresthesia of left lower extremity; Paresthesia 11/20/2024 Telephone [facility] Neurology [facility] [address] [place] [phone] Provider, MD Erin Scheduling Appointments (SCHEDULE REFERRAL [...] on file Legal Sex Female 11:50 AM PATTERN CHAIN BUILDER Gender Identity Not on file Sexual Orientation Not on file Obstetrics History Last Filed Vital Signs Vital Sign Reading Time Taken Comments Blood Pressure 142/100 11/22/2024 10:56 AM PATTERN CHAIN BUILDER Pulse 70 11/22/2024 10:56 AM PATTERN CHAIN BUILDER Temperature 36.4 C (97.6 F) 08/25/2022 12:45 PM CDT Respiratory Rate 18 08/25/2022 1:05 PM CDT Oxygen Saturation 100% 11/22/2024 10:56 AM PATTERN CHAIN BUILDER Inhaled Oxygen Concentration - - Weight 73 kg (161 lb) 11/22/2024 10:56 AM PATTERN CHAIN BUILDER Height 157.5 cm (5' 2 ) 11/22/2024 10:56 AM PATTERN CHAIN BUILDER Body Mass Index 29.45 11/22/2024 10:56 AM PATTERN CHAIN BUILDER Plan of Treatment Health Maintenance Due Date [...] CARMEN CERVANTES Ordering Dr: Rose Marie Norton D.O.B: 1975 Exam Date: 08/19/20 1007 Age: 44 Sex: Female MR#: [id number] Loc: RADIOLOGY REPORT Order #[id number] [facility] Jina Bilat Diagnostic 3D Signed - MG [...] Electronically signed by: Kevin Pierre rl/:08/19/2020 11:28:52 Dog License Officer Supervisor: Aimee Whipple)(Vickie), [facility] letter sent: Normal Exam Abnormal History Reading location: BI-RADS: 1 Negative REPORT ELECTRONICALLY SIGNED IN OTHER VENDOR SYSTEM Resulting Agency Comment O Procedure Note Kevin Kendall MD - 08/19/2020 Patient Name: JANET CERVANTESSHELBY Ross Dr: Rose Marie Norton D.O.B: 1975 Exam Date: 08/19/20 1007 Age: 44 Sex: Female MR#: [id number] Loc: RADIOLOGY REPORT Order #[id number] [facility] Jina Bilat Diagnostic 3D Signed - MG [...] Electronically signed by: Kevin Pierre rl/:08/19/2020 11:28:52 Dog License Officer Supervisor: Aimee Whipple)(Vickie), [facility] letter sent: Normal Exam Abnormal History Reading location: BI-RADS: 1 Negative REPORT ELECTRONICALLY SIGNED IN OTHER VENDOR SYSTEM Rose Marie Norton COLLECTOR OF AQUAR[employer]CIM[employer] IMG MAMMO PROCEDURES Final Resul t * Hepatitis C antibody (06/22/2017 2:24 PM CDT) Hep C Ab NONREACT NONREACTIVE 06/22/2017 8:23 PM CDT [facility] HISTORICAL RESULTS Comment: Siemens CentaurXP using ROCIO [...] 2:24 PM CDT 06/22/2017 2:29 PM CDT Bitajuan Vivian Ramírez DO LAB MICROBIOLOGY - GEN ERAL ORDERABLES Final Result [facility] HISTORICAL RESULTS * ThinPrep Imaging Pap and HPV mRNA E6/E7, Chlamydia/N.Gonorrhoeae (06/22/2017 1:46 PM CDT) CLINICAL INFORMATION [facility] HISTORICAL RESULTS Comment:Information not prov ided LMP: 06/10/17 [facility] HISTORICAL RESULTS PREV. PAP: [facility] HISTORICAL RESULTS Comment:NORMAL PREV. BX: [facility] HISTORICAL RESULTS Comment:INFORMATION NOT PROV IDED SOURCE: [facility] HISTORICAL RESULTS Comment:Cervix, Endocervix STATEMENT OF ADEQUACY: [facility] HISTORICAL RESULTS Comment:Satisfactory for conrad luation. Endocervical/transformation zone component present. INTERPRETATION/RES ULT: [facility] HISTORICAL RESULTS Comment:Negative for intraep ithelial lesion or malignancy. COMMENT: [facility] HISTORICAL RESULTS Comment:This Pap test has be en evaluated with computer assisted technology. RESEARCH CHIEF ENGINEER: [facility] HISTORICAL RESULTS Comment:PCM, CT(ASCP) CT scr eening location: [place] [address] [place] [address] HPV mRNA E6/E7 Not Detected Not Detected [facility] HISTORICAL RESULTS Comment: This test was performed using the APTIMA HPV Assay ([employer] This assay detects E6/E7 viral messenger RNA (mRNA) from 14 high-risk HPV types (16,18,31,33,35,39,45,51,52,56,58,59,66,68). C. trachomatis RNA NOT DETECTED NOT DETECTED [facility]IST[facility] RESULTS N. gonorrhoeae RNA NOT DETECTED NOT DETECTED [facility] HISTORICAL RESULTS COMMENT [facility] HISTORICAL RESULTS Comment: This test was performed using the APTIMA COMBO2 Assay ([employer] The analytical performance characteristics of this assay, when used to test SurePath specimens have been determined by [employer]. 06/22/2017 1:46 PM CDT 06/27/2017 12:10 PM CDT Narrative [facility] HISTOR[facility] RESULTS - 06/27/2017 11:46 AM CDT 0 PERFORMING LAB: , [facility] [address] , [facility] [address] Bola Figueroa MD Robyn Ramírez DO LAB PATHOLOGY ORDERABL ES Final Result [facility] HISTORICAL RESULTS from Last 3 Months or Most Recently Relevant to Health Maintenance [id number] [place] Care Teams Waistband Setter Lockstitch Relationship Specialty Start Date End Date Neil Stinson MD [facility] [address] [place] [address] PCP - General Family Medicine 12/15/21
[2025-01-12 11:10] LABS: Hematocrit 41.9 % (37.0-47.0); Hemoglobin 13.7 g/dL (12.0-15.0); Mean Corpuscular HGB Conc 32.7 g/dl (32-36); Mean Corpuscular Hemoglobin 31.6 pg (26-34); Mean Corpuscular Volume 96.8 fl (80-100); Mean Platelet Volume 9.7 fl (7.4-10.4); Platelet Count Result 251 k/mm3 (150-375); Red Blood Count 4.33 M/mm3 (4.2-5.4); Red Cell Distribution Width 14.1 % (11.5-14.5); White Blood Count 7.1 K/mm3 (4.5-10.0)
[2025-01-12 11:13] LABS: Add Urine Microscopic? NO; Appearance Urine Clear (Clear); Bilirubin Urine Negative (Negative); Blood Urine Negative (Negative); Color Urine Yellow (Yellow); Glucose Urine UA Negative (Negative); Ketones Urine Negative (Negative); Leukocyte Esterase Ur Negative LEU/UL (Negative); Nitrate Urine Negative (Negative); Protein Urine Negative (Negative); Specific Grav Ur 1.024 (1.001-1.035)
[2025-01-12 11:33] LABS: Alanine Aminotransferase 22 U/L (6-35); Albumin Level 4.5 g/dL (3.5-5.1); Alkaline Phosphatase 87 U/L (38-126); Anion Gap 8 mmol/L (4-12); Aspartate Amino Transferase 26 U/L (14-36); Bilirubin,Total 1.2 mg/dL (0.2-1.3); Blood Urea Nitrogen 19 mg/dL (7-17); Calcium 9.6 mg/dL (8.4-10.2); Carbon Dioxide 30 mmol/L (22-30); Chloride 104 mmol/L (98-107); Estimated Glomerular Filt Rate > 60; Glucose 96 mg/dL (65-110); Potassium 4.5 mmol/L (3.4-5.0); Sodium 142 mmol/L (137-145)
== END 2025-01-12 10:25 | disposition home or self-care (01) ==
LOC: ANHLAB 10:25
PROVIDERS: PCP Family Medicine; Visit Provider Family Medicine
DX: E34.9 Endocrine disorder, unspecified (principal); M54.2 Cervicalgia; I10 Essential (primary) hypertension; R33.9 Retention of urine, unspecified
CPT/HCPCS: 36415; 80053; 81003; 84443; 85027

== ENCOUNTER 2025-05-27 19:40 | Emergency (ER) | payer BC, SELFPAY ==
--- OUTSIDE RECORDS SUMMARY | 2025-05-27 19:43 | XMS_ITS | Clinical Summary ---
Author Organization [facility] Care Team Providers Care Data Entry Machine Operator Name Role Phone Unavailable Primary Care Provider Unavailabl e Social History Tobacco Use Types Packs/Day Years Used Date Smoking Tobacco: Never Assessed Comments Unknown Sex and Gender Information Value Date Recorded Sex Assigned at Not on file Legal Sex Female 8:04 AM RISK ANALYST Gender Identity Not on file Sexual Orientation [...]
--- OUTSIDE RECORDS SUMMARY | 2025-05-27 19:43 | XMS_ITS | Clinical Summary ---
Author Organization [facility] Address [address] [place] [address] Care Team Providers Care Educational Psychology Teacher Name Role Phone Juanis Richards NP Primary Care Provider [phone] Allergies Active Allergy Reactions Criticality Noted Date [...] Foot pain 04/03/2013 07/17/2020 Hypertension 06/05/2012 07/17/2020 Immunizations Immunization Administration Dates Next Due Influenza Adult (Generic) [...] Comments Blood Pressure 167/99 10/28/2024 10:25 PM PHOTOGRAPHIC TECHNICIAN Pulse 58 10/28/2024 10:25 PM PHOTOGRAPHIC TECHNICIAN Temperature 37 C (98.6 F) 10/28/2024 8:18 PM PHOTOGRAPHIC TECHNICIAN Respiratory Rate 16 10/28/2024 10:25 PM PHOTOGRAPHIC TECHNICIAN Oxygen Saturation 99% 10/28/2024 10:25 PM PHOTOGRAPHIC TECHNICIAN Inhaled Oxygen Concentration - - Weight 72.6 kg (160 lb) 10/28/2024 8:18 PM PHOTOGRAPHIC TECHNICIAN Height 160 cm (5' 3) 10/28/2024 8:18 PM PHOTOGRAPHIC TECHNICIAN Body Mass Index 28.34 10/28/2024 8:18 PM PHOTOGRAPHIC TECHNICIAN Plan of Treatment Health Maintenance Due Date Last Done Comments ASCVD Statin 1975 Hepatitis C 1994 DTaP, Tdap and Td Vaccines (1 - Tdap) 1995 Hepatitis B Vaccines (1 of 3 - 19+ 3-dose series) 1995 ASCVD LDL 12/08/2019 12/08/2018, 10/08, 07/06/2015, Additional history exists Annual Physical 07/17/2021 07/17/2020, 12/08/2018 Mammogram Screening 08/19/2022 08/19/2020, 0 COVID-19 Vaccine ( season) 2024 Colorectal Cancer Screening Colonoscopy (10 Years) 08/09/2029 08/09/2019 Meningococcal B Vaccine Aged Out No l onger eligible based on patient's age to complete this topic Meningococcal Vaccine Aged Out No diana denae eligible based on patient's age to complete this topic Pneumococcal Vaccine: Pediatrics (0 to 5 Years) and At-Risk Patients (6 to 49 Years) Aged Out No longer eligible based on patient's age to complete this topic RSV Immunizations Under 20 Months Aged Out No longer eligible based on patient's age to complete this topic Procedures Procedure Name Priority Date/Time Associated Diagnosis Comments MAMMOGRAM GENERIC (SCAN ORDER) 08/19/2020 LIPID PANEL Routine 12/08/2018 9:28 AM PHOTOGRAPHIC TECHNICIAN Essential hypertension from Last 3 Months or Most Recently Relevant to Health Maintenance Results * MAMMOGRAM GENERIC (08/19/2020) Anatomical Region Laterality Modality Other 08/19/2020 Narrative 08/19/2020 Ordered by an unspecified provider. us Documents Scanned SCANNING Final Result * (ABNORMAL) LIPID PANEL (12/08/2018 9:28 AM PHOTOGRAPHIC TECHNICIAN) CHOLESTEROL 182 <200 MG/DL 12/08/2018 7:45 PM [facility] TRIGLYCERIDES 96 <150 MG/DL 12/08/2018 7:45 PM [facility] HDL 57 >40.0 MG/DL 12/08/2018 7:45 PM [facility] LDL (CALCULATED) 106(H) <100 MG/DL 12/08/2018 7:45 PM [facility] NON HDL CHOLESTEROL 125 <130 MG/DL 12/08/2018 7:45 PM [facility] CHOL/HDL RATIO 3.2 0.0 - 4.5 12/08/2018 7:45 PM [facility] VLDL CALCULATION 19 5 - 55 MG/DL 12/08/2018 7:45 PM PHOTOGRAPHIC TECHNICIAN [facility] LIPID INTERPRETATION 12/08/2018 7:45 PM PHOTOGRAPHIC TECHNICIAN [facility] Comment: [facility] REPORT RECOMMENDATIONS: ADULT CHILD LOW RISK: CHOLESTEROL <200 <170 TRIGLYCERIDE <150 --- HDL >=60 --- LDL <100 <110 BORDERLINE: CHOLESTEROL 200-239 170-199 TRIGLYCERIDE 150-199 --- HDL 40-59 --- LDL 100-159 110-129 HIGH RISK: CHOLESTEROL >=240 >=200 TRIGLYCERIDE >=200 --- HDL <40 --- LDL >=160 >=130 12/08/2018 9:28 AM PHOTOGRAPHIC TECHNICIAN Rose Marie Norton NP LABORATORY Final Result [facility] [address] [place] [address], from Last 3 Months or Most Recently Relevant to Health Maintenance [place] [address] [address] Advance Directives * Full Code (Latest Code Status on File) Date Activated Date Inactivated Comments 06/01/2019 2:39 AM 06/04/2019 12:03 PM Care Teams Educational Psychology Teacher Relationship Specialty Start Date End Date Juanis Richards NP [address] [phone] PCP - General Nurse Practitioner Family 10/28/24
--- OUTSIDE RECORDS SUMMARY | 2025-05-27 19:43 | XMS_ITS | Data Portability ---
Author Organization [place] - [facility] OFFICE Address [address] [place] [address] Assessment Encounter Date Assessment Date Assessment LastModified [...] thiazide 12.5 mg capsule 2022 023 kwilliams [employer] #[id number], [address] [place], [place], [id number], 17:06:14 hydrochloro thiazide 25 mg tablet 2021 022 kwilliams [employer] #[id number], [address] [facility] [place], [place], [id number], 17:06:06 Patient TargetsNo targets recorded. Patient Instructions Encounter Date Encounter Id Patient Instructions Last Modified By Organization Details Last Modified Time 05/20/2021 [id number] Exercise advised Low cholesterol diet advised Low sodium diet advised [email or web address] Not available 05/20/2021 15:35:00 Patient was seen and evaluated by Sherron Drake [facility]. Plan of care was discussed with collaborating physician and note cosigned by Dr. Kaylee Cross. [email or web address] Not available 05/20/2021 15:35:15 08/24/2022 [id number] Exercise advised Low cholesterol diet advised Low sodium diet advised. [email or web address] Not available 08/24/2022 13:34:28 11/16/2022 [id number] Exercise advised Low cholesterol diet advised Low sodium diet advised. [email or web address] Not available 11/16/2022 16:45:06 Reason for Referral None Reported. Results Created Date Observation Date Name Description Value Unit Range Abnormal Flag Note LastModifiedBy Organization Detail LastModifiedTime 02/21/20 elect rocar diogr am No observ ation record ed. [email or web address] Not Available 2020 12:08:49 06/01/20 21 05/20/2021 [...] Name and Address Organization Details Recorded Time [employer] 79900839 Active 2015 John Mesto [place], [place] - [facility] 2 05:43:00 Gastroesoph ageal reflux disease 644440022 Active 2015 Johnparish Flannery [place], [place] - [facility] 6 13:33:32 Anxiety 08863045 Active 2015 Johnparish Flann[place] - [facility] 6 13:33:44 Obesity 646664194 Active 2015 Alvaro [place]ann[place] - [facility] 6 13:33:54 Pulmonary hypertensio n 96912819 Active 2016 Johnparish Flannery [place] - [facility] 7 18:13:54 Edema of lower extremity 502695702 Active 2016 Johnparish Flann[place] - [facility] 7 18:14:06 Obstructive sleep apnea syndrome 03793213 Active 2016 Alvaro [facility]ann[facility], [place] - [facility] 2 05:42:53 Deep venous thrombosis of right lower extremity 1382666396754 05 Active 2016 Alvaro Flann[place] - [facility] 7 18:14:36 Pre-surgery evaluation Active 2018 B[facility]den [facility], [place] - [facility] 9 14:42:02 Hyperlipide ly 86479696 Active 2022 Johnparish Flannery [place], [place] - [facility] 3 14:15:41 Problem Notes None recorded. Procedures Surgical History Date Name Laterality Status Provider Name and Address Organization Details Recorded Time Appendectomy completed Alvaro Flannery [place] - [facility] 10/20/2016 13:34:22 Imaging Results None recorded. Procedure Notes None recorded. Medical Equipment None [...] Not Available Vitals Date Recorded Body height Body mass index (BMI) Body weight Heart rate Respiratory rate Oxygen saturation Oxygen saturation in Arterial blood by Pulse oximetry Systolic And Diastolic Provider Name and Address Organization Details Last Updated DateTime 3 160.02 cm 30.3 kg/m2 14470.3 g 82 /min 16 /min 99 % 99 % 132/92 mm[Hg] Sheldon Addison [facility] 3 16:20:28 Date Recorded Body height Body mass index (BMI) Body weight Heart rate Respiratory rate Oxygen saturation Oxygen saturation in Arterial blood by Pulse oximetry Systolic And Diastolic Provider Name and Address Organization Details Last Updated DateTime 3 160.02 cm 28.9 kg/m2 08947.5 6 g 82 /min 16 /min 94 % 94 % 118/78 mm[Hg] Sheldon Addison [facility] 3 17:09:11 Date Recorded Body height Respiratory rate Heart rate Oxygen saturation Oxygen saturation in Arterial blood by Pulse oximetry Body temperature Systolic And Diastolic Provider Name and Address Organization Details Last Updated DateTime 1 160.02 cm 18 /min 64 /min 98 % 98 % 97.4 [degF] 124/80 mm[Hg] Claude Wells [facility] 1 11:24:56 Date Recorded Body height Body mass index (BMI) Body weight Heart rate Respiratory rate Oxygen saturation Oxygen saturation in Arterial blood by Pulse oximetry Systolic And Diastolic Provider Name and Address Organization Details Last Updated DateTime 1 160.02 cm 36.1 kg/m2 29162.8 4 g 59 /min 18 /min 98 % 98 % 110/74 mm[Hg] Tiffanie Rosas [facility] 1 11:44:00 Date Recorded Body mass index (BMI) Body height Provider Name and Address Organization Details Last Updated DateTime 08/24/2022 31 kg/m2 160.02 cm Jose Umaña MD [address] [place], [address], [facility] 08/24/2022 13:31:55 Date Recorded Body weight Heart rate Oxygen saturation Oxygen saturation in Arterial blood by Pulse oximetry Systolic And Diastolic Provider Name and Address Organization Details Last Updated DateTime 2 54222.6 6 g 61 /min 98 % 98 % 130/82 mm[Hg] Luanne Prescottran [facility] 2 12:54:28 Social History Question Answer Notes LastModified by Organizat ion Details LastModified Time Tobacco Smoking Status [facility] 13:36:39 What Was The Date Of Your Most Recent Tobacco Screening? 03/15/2019 Information n ot available 05/31/2019 Sex: Unknown Functional Status Question Answer Note LastModified by Organizat ion Details LastModified Time Do you or have you ever used smokeless tobacco? Former smokeless tobacco user Information not available 03/12/2020 Do you or have you ever used e-cigarettes or vape? Never used electronic cigarettes Information not available 03/12/2020 Mental Status None recorded. Family History Relationship [...] Code Diagnosis Note [id number] Jose Umaña MD [address] [address] 10/22/2016 12:14:07 10/25/2016 10:21:47 Essential hypertension 94578159 I10 Chest pain 51250627 R07. 9 Had negative stress test Pulmonary hypertension 51257881 I27.2 Edema of l ower extremity 744644641 R60.0 Obstructiv e sleep apnea syndrome 28893376 G47.33 7989 Jose Umaña MD [address] [address] 11/15/2016 14:05:32 11/15/2016 15:54:27 Essential hypertension 17457487 I10 Chest pain 37311551 R07. 9 Had negative stress test Pulmonary hypertension 51042005 I27.2 Edema of l ower extremity 409110093 R60.0 Obstructiv e sleep apnea syndrome 80395998 G47.33 Deep venou s thrombosis of lower extremity 585271454 I82.401 15775 Jose Umaña MD [address] [address] 08/22/2017 15:45:01 08/23/2017 09:43:43 Essential hypertension 92867959 I10 Chest pain 01116626 R07. 9 Treadmill Myoview Stress test, has high Naylor Risk score. Has Known CAD, or CAD risk equivalent . To look for any ischemia. Edema of l ower extremity 605561735 R60.0 Obstructiv e sleep apnea syndrome 22826433 G47.33 Deep venou s thrombosis of lower extremity 713700181 I82.401 11/16/16 VENOUS DOP/DUPLEX BOTH LEGS: Negative for deep vein thrombosis , bilateral lower extremitie s. [id number] Andre Palmer MD [place] [facility] [address] [place] [address] 10/10/2017 16:26:23 10/11/2017 10:19:35 Essential hypertension 34548606 I10 Patient's blood pressure is well-contr olled on present medical therapy. Patient is tolerating , without difficulty , the current medication s. I have not made changes to the current regimen. Patient is advised to maintain a blood pressure diary. Patient was advised to eat a low-sodium diet (2 grams sodium or less daily). Chest pain 14065291 R07. 9 Pleuritic chest pain with dyspnea, [...] than 40. Edema of l ower extremity 036674954 R60.0 Mild. Improved. Had 10/22/16 ECHOCARDIO GRAM REPORT: The estimated left ventricula r ejection fraction is 60-65% (normal). Diastolic filling reveals a pseudonorm al pattern (grade 2 diastolic dysfunctio n). Had 11/16/16 VENOUS DOP/DUPLEX BOTH LEGS: Negative for deep vein thrombosis , bilateral lower extremitie s. Continue diuretics. Obtain BMP, Mg. Obstructiv e sleep apnea syndrome 54501564 G47.33 Sleep study not performed yet. Obtain once pneumonia resolved in 1 month. 16156 Brayden Chavarria MD [place] [facility] [address] [place] [address] 11/30/2018 13:43:30 11/30/2018 14:49:52 Chest pain 64605198 R07.9 ResolvedPt had pleuritic chest pain with [...] and HDL more than 40. Essential hypertension 00919522 I10 Patient's blood pressure is well-contr olled on present medical therapy. Patient is tolerating , without difficulty , the current medication s. I have not made changes to the current regimen. Patient is advised to maintain a blood pressure diary. Patient was advised to eat a low-sodium diet (2 grams sodium or less daily). Edema of l ower extremity 333643449 R60.0 Mild. Improved. Had 10/22/16 ECHOCARDIO GRAM REPORT: The estimated left ventricula r ejection fraction is 60-65% (normal). Diastolic filling reveals a pseudonorm al pattern (grade 2 diastolic dysfunctio n). Had 11/16/16 VENOUS DOP/DUPLEX BOTH LEGS: Negative for deep vein thrombosis , bilateral lower extremitie s. Continue diuretics. Obtain BMP, Mg. Pre-surger y evaluation 086984442 Z01.818 pt could walk one flight of stairs withoutpro blemsECHOI f LV systolic function normal pt does have low risk for moderate risk surgery 30025 Brayden Chavarria MD [place] OFF[facility] [place] [address] 03/15/2019 14:36:27 03/15/2019 16:06:01 Chest pain 08805808 R07.9 ResolvedPt had pleuritic chest pain with [...] and HDL more than 40. Essential hypertension 69842479 I10 Patient's blood pressure is well-contr olled on present medical therapy. Patient is tolerating , without difficulty , the current medication s. I have not made changes to the current regimen. Patient is advised to maintain a blood pressure diary. Patient was advised to eat a low-sodium diet (2 grams sodium or less daily). Edema of l ower extremity 462438686 R60.0 Mild. Improved. Had 10/22/16 ECHOCARDIO GRAM REPORT: The estimated left ventricula r ejection fraction is 60-65% (normal). Diastolic filling reveals a pseudonorm al pattern (grade 2 diastolic dysfunctio n). Had 11/16/16 VENOUS DOP/DUPLEX BOTH LEGS: Negative for deep vein thrombosis , bilateral lower extremitie s. [place]. [place]. [address] MD Tiffani Negrete Office [address] [place] [address] 11/17/2020 14:54:00 11/17/2020 15:30:34 Chest pain 34014958 R07.9 ResolvedPt had pleuritic chest pain with [...] and HDL more than 40. Essential hypertension 45897264 I10 Patient's blood pressure is well-contr olled on present medical therapy. Patient is tolerating , without difficulty , the current medication s. I have not made changes to the current regimen. Patient is advised to maintain a blood pressure diary. Patient was advised to eat a low-sodium diet (2 grams sodium or less daily). Edema of l ower extremity 015478336 R60.0 Mild. Improved. Had 10/22/16 ECHOCARDIO GRAM REPORT: The estimated left ventricula r ejection fraction is 60-65% (normal). Diastolic filling reveals a pseudonorm al pattern (grade 2 diastolic dysfunctio n). Had 11/16/16 VENOUS DOP/DUPLEX BOTH LEGS: Negative for deep vein thrombosis , bilateral lower extremitie s. Continue diuretics. Obtain BMP, Mg. Pre-surger y evaluation 077632642 Z01.818 pt could walk one flight of stairs withoutpro blemsif ECHO normal pt does have low risk for low risk surgery 80258 MD Tfifani Negrete Office [address] [place] [address] 02/18/2021 11:20:12 02/18/2021 11:43:47 Chest pain 48983977 R07.9 ResolvedPt had pleuritic chest pain with [...] and HDL more than 40. Essential hypertension 94038234 I10 Patient's blood pressure is well-contr olled on present medical therapy. Patient is tolerating , without difficulty , the current medication s. I have not made changes to the current regimen. Patient is advised to maintain a blood pressure diary. Patient was advised to eat a low-sodium diet (2 grams sodium or less daily). Edema of l ower extremity 826166537 R60.0 Mild. Improved. Had 10/22/16 ECHOCARDIO GRAM REPORT: The estimated left ventricula r ejection fraction is 60-65% (normal). Diastolic filling reveals a pseudonorm al pattern (grade 2 diastolic dysfunctio n). Had 11/16/16 VENOUS DOP/DUPLEX BOTH LEGS: Negative for deep vein thrombosis , bilateral lower extremitie s. Continue diuretics. Obtain BMP, Mg. Pre-surger y evaluation 137727521 Z01.818 pt could walk one flight of stairs without problems ECHO showed normal LV systolic function pt does have low risk for low risk surgery 77215 MD Tiffani Betancourt Office [address] [facility] [place] [address] 05/20/2021 11:28:04 05/20/2021 12:21:53 Chest pain 42339844 R07.9 Resolved TDM 10/03/2017 : Negative stress test for ischemia. 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 Normal LV systolic function. Essential hypertension 55141975 I10 Well controlled without antihypert ensive therapy Edema of l ower extremity 194374383 R60.0 Resolved 38377 Jose Umaña MD [place] [facility] [address] [place] [address] 08/24/2022 12:30:31 08/24/2022 13:42:03 Chest pain 95547989 R07.9 Will do stress echo TDM 10/03/2017 : Negative stress test for ischemia. 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 Normal LV systolic function. Essential hypertension 64091818 I10 Well controlled without antihypert ensive therapy but she has occasional high BP we will start her on HCTZ 25 mg daily Edema of l ower extremity 196943071 R60.0 Resolved Hyperlipidemia 74533930 E78.5 *Last LDL was 127 done on 09/07/20.P t dose not takes any statins.re peat lipid profile Palpitations 35343250 R0 0.2 will do holter monitor for 48 hours Obstructiv e sleep apnea syndrome 36988999 G47.33 will do sleep study 15859 Jose Umaña MD [place] [facility] [place] [address] 11/16/2022 16:16:09 11/16/2022 16:44:17 Chest pain 59937910 R07.9 stress test is negative 10/2022 TDM 10/03/2017 : Negative stress test for ischemia. 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 Normal LV systolic function. Essential hypertension 59094789 I10 continue HCTZ 25 mg daily Edema of l ower extremity 601262060 R60.0 Resolved Hyperlipidemia 25939553 E78.5 *Last LDL was 127 done on 09/07/20.P t dose not takes any statins.re peat lipid profile Palpitations 21923806 R0 0.2 resolved Obstructiv e sleep apnea syndrome 44254356 G47.33 will consider sleep study 33716 Jose Umaña MD [place] OFF[facility] [address] [place] [address] 01/06/2023 16:22:03 01/06/2023 17:29:49 Chest pain 01064814 R07.9 stress test is negative 10/2022 TDM 10/03/2017 : Negative stress test for ischemia. 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 Normal LV systolic function. Essential hypertension 37258450 I10 Will DC HCTZ 25 mg daily Edema of l ower extremity 934717310 R60.0 Resolved Hyperlipidemia 66997944 E78.5 *Last LDL was 127 done on 11/01/20.P t dose not takes any statins.re peat lipid profile Palpitations 84285854 R0 0.2 resolved Obstructiv e sleep apnea syndrome 87948412 G47.33 will consider sleep study Health Concerns Section Related Observation LastModified by Organization Detai ls LastModified Time None Recorded Concern Status LastModified by Organization Details LastModified Time None Recorded Advance Directives Directive None Recorded Payers Insurance Date Sequence Insurance Name Policy Number Policy Rice Covered Member ID Rice Member ID Guarantor Name 08/24/2022 1 [facility] (MEDICAID HMO) Maria Del Carmen Ray [id number] Maria Del Carmen Ray 08/24/2022 2 [facility] (MEDICAID HMO) Maria Del Carmen Ray [id number] Maria Del Carmen Colbys 08/24/2022 1 [place] [facility] Maria Del Carmen Ray [id number] Maria Del Carmen Colbys 05/21/2023 1 [facility] ON OR AFTER 05/07/21 (MEDICAID REPLACEMENT - HMO) Maria Del Carmen Colbys [id number] Maria Del Carmen C Ray 08/24/2022 1 [facility] PRIOR TO 05/07/2021 (MEDICAID REPLACEMENT - HMO) Maria Del Carmen Ray [id number] Maria Del Carmen C Ray 08/24/2022 1 [facility] PRIOR TO 05/07/2021 (MEDICAID REPLACEMENT - HMO) Maria Del Carmen Ray [id number] Maria Del Carmen Ray Notes Date Note Type Note Provider Name and Address Organization Details Recorded Time 02/18/2021 text/html 02/18/2021 CC: Preop HPI 45 year old Woman with no significant past medical history, is here for follow-up. Pt states that she is going to be scheduled for bariatric surgery soon in [place], Now is loosing some weight. She had [...] TG 76, TC 202, HDL 60, LDL 03967: VIT D 13111/08/19: HGB A1C 5.4%09/08/20 CBC: [...] thrombosis , bilateral lower extremities. Brayden Chavarria [place], [place] - [facility] 02/18/2021 16:13:34 [...] She does report she was seen in [facility] ED with abdominal pain and was discharged [...] TG 76, TC 202, HDL 60, LDL 0700809/08/20: VIT D 13111/08/19: HGB A1C 5.4%09/08/20 CBC: [...] thrombosis , bilateral lower extremities. Sherron Drake [facility] [place] - [facility] 05/20/2021 15:41:32 08/24/2022 text/html 08/24/22CC : Car diac follow up dyspnea on exertion and vvbbpoossidx31-qker-qzc woman with h/o Hypertension, is here for [...] She does report she was seen in [facility] ED with abdominal pain and was discharged [...] TG 76, TC 202, HDL 60, LDL 4485509/08/20: VIT D 13111/08/19: HGB A1C 5.4%09/08/20 CBC: [...] (11/17/20): NSR, nonspecific IVCD, NSST changesEKG (09/08/20, [facility]) Normal sinus rhythm. Inferior T wave abnormality. [...] , bilateral lower extremities. Jose Umaña MD [address] [place], [address], [facility] - [facility] 08/24/2022 13:35:03 11/16/2022 text/html 11/16/21CC : Car diac follow up, dyspnea on atypvjoa70-ucxt-vqb woman with h/o Hypertension, hyperlipidemia, and obstructive [...] She does report she was seen in [facility] ED with abdominal pain and was discharged [...] TG 76, TC 202, HDL 60, LDL 4155509/08/20: VIT D 13111/08/19: HGB A1C 5.4%09/08/20 CBC: WBC 8.1, RBC 4.86, HGB 15.0, HCT 44.1, PLT 6149510/24/2017: WBC 10.9, HGB 12.2, HCT 38.2, PLT [...] , bilateral lower extremities. Jose Umaña MD [address] [place], [address], [facility] - [facility] 11/16/2022 16:45:12 01/06/2023 text/html 01/06/23CC : Car diac follow up, dyspnea on [id number]-xsm woman with h/o Hypertension, hyperlipidemia, and obstructive [...] She does report she was seen in [facility] ED with abdominal pain and was discharged [...] TG 76, TC 202, HDL 60, LDL 3601509/08/20: VIT D 13111/08/19: HGB A1C 5.4%09/08/20 CBC: WBC 8.1, RBC 4.86, HGB 15.0, HCT 44.1, PLT 0596910/24/2017: WBC 10.9, HGB 12.2, HCT 38.2, PLT [...] , bilateral lower extremities. Jose Umaña MD [address] [place], [address], [facility] - [facility] 01/06/2023 17:26:17 OBGyn Episode No OBEpisode recorded.
--- OUTSIDE RECORDS SUMMARY | 2025-05-27 19:43 | XMS_ITS | Encounter Summary ---
Author Organization [facility] Facility Care Team Providers Care Tile Conduit Layer Name Role Phone No, Physician Primary Care Provider [phone] Rose Marie Norton NP Primary Care Provider [phone] Rehan Mendoza MD Primary Care Provider [phone] Rose Marie Norton NP Primary Care Provider [phone] Neil Stinson MD Primary Care Provid er Encounter Details Date Type Department Care Team (Latest Contact Info) Description 12/14/2018 Orders Only [facility] CLINCON[facility] ProviderErin MD [address] [place] [address] Social History Tobacco Use Types Packs/Day Years Used Date Smoking Tobacco: Never Assessed Comments Unknown Sex and Gender Information Value Date Recorded Sex Assigned at Not on file 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 us Historical Provider Final Res ult documented in this encounter Visit Diagnoses Not on filedocumented in this encounter Care Teams Tile Conduit Layer Relationship Specialty Start Date End Date No, Physician PCP - General 11/21/18 12/21/18 Rose Marie Norton, HASHER OPERATOR [address] [place] [address] PCP - General 12/22/18 09/07/20 Rehan Mendoza MD [address] [facility] [place] [address] PCP - General 09/08/20 12/17/20 Rose Marie Norton, HASHER OPERATOR [address], [place] [id number] PCP - General 12/18/20 12/14/21 Neil Stinson MD [address] [place] [address] PCP - General Family Medicine 12/15/21 documented as of this encounter
--- OUTSIDE RECORDS SUMMARY | 2025-05-27 19:43 | XMS_ITS | Encounter Summary ---
Author Organization [facility] Facility Care Team Providers Care Explosive Ordnance Manager Name Role Phone Rose Marie Norton NP Primary Care Provider [phone] Rehan Mendoza MD Primary Care Provider [phone] Rose Marie Norton NP Primary Care Provider [phone] Neil Stinson MD Primary Care Provid er Encounter Details Date Type Department Care Team (Latest Contact Info) Description 12/26/2018 Orders Only [facility] CLINCONV ProviderErin MD [address] [place] [address] Social History Tobacco Use Types Packs/Day Years Used Date Smoking Tobacco: Never Assessed Comments Unknown Sex and Gender Information Value Date Recorded Sex Assigned at Not on file 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
--- OUTSIDE RECORDS SUMMARY | 2025-05-27 19:43 | XMS_ITS | Clinical Summary ---
Author Organization [facility] Address [address] [place] [address] Care Team Providers Care Moisture Conditioner Operator Name Role Phone None, Physician Primary Care Provider Unavailabl e Source Comments [facility],non-owned Affiliates and Associated Physician Practices is amultiple site organization consisting of ambulatory clinics and hospital sitesin [place], [place], [place] and [place]. This disclosure is being madepursuant to the Care Everywhere program and may not contain all information available regarding this patient. Last updated 18.[facility] Allergies Active Allergy Reactions Criticality Noted Date Comments Amoxicillin Rash,Unknown Medium 12/08/2018 Iodine Urticaria High 01/24/2023 Prednisone Shortness of Breath High 03/21/2025 Medications * Be aware that medications may not be up to date on this document. Alwaysverify current medications with the patient. gabapentin (Neurontin) 100 MG capsule Take 1 (one) capsule by mouth 2 times daily 60 capsule 1 03/21/2025 Active Active Problems Problem Noted Date Diagnosed Date TIA (transient ischemic attack) 01/01/2023 Hyperlipidemia 11/12/2022 Diverticulitis 06/01/2019 Edema of lower extremity 05/13/2017 Deep vein thrombosis (DVT) of right lower extrem ity 05/13/2017 Obstructive sleep apnea syndrome 05/13/2017 Pulmonary hypertension 05/13/2017 Essential hypertension 10/19/2016 Backache 01/23/2014 Resolved Problems Problem Noted Date Diagnosed Date Resolved Date Morbid obesity 03/09/2021 04/10/2021 Anxiety 10/20/2016 03/21/2025 Esophageal reflux 11/22/2012 03/21/2025 Preop examination 06/26/2021 Pre-op exam 06/26/2021 DVT (deep venous thrombosis) 03/21/2025 Encounters Date Type Department Care Team Description 03/21/2025 10:00 AM CDT Office Visit [facility] - BAND [employer] 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 [address] [place] [address] Lance Garcia Che, MD Post herpetic neuralgia (Primary Dx); Vaginal discharge 03/21/2025 Travel 03/11/2025 Travel from Last 3 Months Family History Medical History Relation Name Comments [...] Answer Date Recorded Patient Health Questionnaire-2 Score 1 03/21/2025 Comments No Sex and Gender Information Value Date Recorded Sex Assigned at Female 11/25/2020 1:10 PM ADVICE CLERK Legal Sex Female 8:39 AM CDT Gender Identity Female 11/25/2020 1:10 PM ADVICE CLERK Sexual Orientation Straight 02/02/2021 4: 18 PM CDT Last Filed Vital Signs Vital Sign Reading Time Taken Comments Blood Pressure 130/74 03/21/2025 10:03 AM CDT Pulse 60 03/16/2024 9:00 AM CDT Temperature 36.3 C (97.3 F) 03/16/2024 9:00 AM CDT Respiratory Rate 16 03/16/2024 9:00 AM CDT Oxygen Saturation 95% 03/16/2024 9:00 AM CDT Inhaled Oxygen Concentration 21% 03/09/2021 8 :00 PM CDT Weight 74 kg (163 lb 3.2 oz) 03/21/2025 10:03 AM CDT Height 157.5 cm (5' 2) 03/21/2025 10:03 AM CDT Body Mass Index 29.85 03/21/2025 10:03 AM CDT Plan of Treatment Upcoming Encounters Date Type Department Care Team (Late st Contact Info) Description 05/31/2025 9:00 AM CDT Clinical Support [facility] [address] [place] [phone] 05/31/2025 9:30 AM CDT Office Visit [facility] [address] [place] [phone] Vianey Llanes, AGRONOMY MANAGER-SHANK CUTTER [address] [place] [address] Health Maintenance Due Date Last Done Comments COLOGUARD (AGES 45-75) - COLON CA SCREENING 1976 COLON MONITORING 1976 COLONOSCOPY - COLON CA SCREENING 1976 CT COLONOGRAPHY - COLON CA SCREENING 1976 Colorectal Cancer Screening 1976 FIT - COLON CA SCREENING 1976 FLEX SIG - COLON CA SCREENING 1976 HIV SCREENING 1991 HEPATITIS C SCREENING 09/04/1994 DTAP/TDAP/TD VACCINES (1 - Tdap) 1995 HEPATITIS B VACCINE (1 of 3 - 19+ 3-dose series) 1995 PAP SMEAR 1997 MAMMOGRAM 08/19/2022 08/19/2020, 08/19/2020 LIPID TESTING 12/08/2023 12/08/2018 COVID-19 VACCINE ( - season) 2024 INFLUENZA VACCINE (#1) 2025 ZOSTER VACCINE (1 of 2) 2026 SCREENING FOR DIABETES 10/28/2027 , 10/28/2024, 06/01/2023, Additional history exists DEPRESSION SCREENING Completed 03/21/2025, 03/16/20 24 HIB VACCINE Aged Out No longer eligi ble based on patient's age to complete this topic HPV VACCINE Aged Out No longer eligi ble based on patient's age to complete this topic MENINGOCOCCAL (Group B) VACCINE SHARED DECISION-MAKING Aged Out No longer eligible based on patient's age to complete this topic MENINGOCOCCAL GROUPS A/C/Y/W VACCINE Aged Out No longer eligible based on patient's age to complete this topic PNEUMOCOCCAL VACCINE Aged Out No long er eligible based on patient's age to complete this topic Procedures Procedure Name Priority Date/Time Associated Diagnosis Comments WET PREP - POINT OF CARE (AMB) [facility] Routine 03/21/2025 Vaginal discharge COMPREHENSIVE METABOLIC PANEL Routine 03/10/2021 4:13 AM CDT from Last 3 Months or Most Recently Relevant to Health Maintenance Results * WET PREP - POINT OF CARE (AMB) [facility] (03/21/2025) pH Wet Prep OTHER LAB Comment:many lactobacilli, n o WBC, no clue cells, no yeast Yeast Wet Prep OTHER LAB Trichomonas Wet Prep OTHER LAB Bacteria Wet Prep OTHER LAB Whiff Test OTHER LAB BODY FLUID SPECIMEN / Unknown 03/21/2025 [facility] Nery Garcia MD LAB - POINT OF CARE ORDERABLES Final Result OTHER LAB * (ABNORMAL) COMPREHENSIVE METABOLIC PANEL (03/10/2021 4:13 AM CDT) Glucose 101 70 - 125 mg/dL 03/10/2021 4:57 AM CDT [facility] Sodium 139 136 - 145 mmol/L 03/10/2021 4:57 AM CDT [facility] Potassium 3.5 3.4 - 4.5 mmol/L 03/10/2021 4:57 AM CDT [facility] Chloride 106 98 - 107 mmol/L 03/10/2021 4:57 AM CDT [facility] CO2 22 22 - 29 mmol/L 03/10/2021 4:57 AM CDT [facility] Calcium 8.7 8.4 - 10.2 mg/dL 03/10/2021 4:57 AM T [facility] Anion Gap 15 10 - 20 mmol/L 03/10/2021 4:57 AM T [facility] BUN 8.7(L) 9.8 - 20.1 mg/dL 03/10/2021 4:57 AM T [facility] Creatinine 0.91 0.57 - 1.11 mg/dL 03/10/2021 4:57 AM T [facility] eGFR by MDRD >60 >60 mL/min/1.7 3m2 03/10/2021 4:57 AM T [facility] eGFR by MDRD >60 >60 mL/min/1.7 3m2 03/10/2021 4:57 AM T [facility] Alkaline Phosphatase 47 40 - 150 U/L 03/10/2021 4:57 AM T [facility] ALT 54 5 - 55 U/L 03/10/2021 4:57 AM T [facility] AST 52(H) 5 - 34 U/L 03/10/2021 4:57 AM T [facility] Protein Total 6.2(L) 6.4 - 8.3 gm/dL 03/10/2021 4:57 AM T [facility] Albumin 3.4(L) 3.5 - 5.0 gm/dL 03/10/2021 4:57 AM [facility] Globulin Total 2.8 2.6 - 4.0 gm/dL 03/10/2021 4:57 AM T [facility] Albumin/Globulin Ratio 1.2 0.9 - 1.6 03/10/2021 4:57 AM T [facility] Bilirubin Total 0.6 0.2 - 1.2 mg/dL 03/10/2021 4:57 AM T [facility] Blood BLOOD SPECIMEN / Unknown Lab Venipuncture / Unknown 03/10/2021 4:13 AM CDT 03/10/2021 4:33 AM T us Rehan Mendoza MD LAB - CHEMISTRY ORDERABLES F inal Result Performing Organization Address City/State/[facility] Co de Phone Number [facility] [address] [place] [address] from Last 3 Months or Most Recently Relevant to Health Maintenance Insurance [facility] ANTH Advance Directives * Full Code (Latest Code Status on File) Date Activated Date Inactivated Comments 03/09/2021 11:13 AM 03/10/2021 2:16 PM Care Teams Moisture Conditioner Operator Relationship Specialty Start Date End Date None, Physician [address] [place] [address] PCP - General 03/21/25
--- OUTSIDE RECORDS SUMMARY | 2025-05-27 19:43 | XMS_ITS | Clinical Summary ---
Author Organization [address] Address [facility] [place] [address] Care Team Providers Care Lime Boiler Name Role Phone Neil Stinson MD Primary [...] 10/20/2016 Essential hypertension 10/20/2016 Esophageal reflux 11/22/2012 Surgical History Surgery Date Site/Laterality Comments APPENDECTOMY [...] on file Legal Sex Female 11:50 AM MISSION SYSTEMS ENGINEER Gender Identity Not on file Sexual Orientation Not on file Obstetrics History Last Filed Vital Signs Vital Sign Reading Time Taken Comments Blood Pressure 142/100 11/22/2024 10:56 AM MISSION SYSTEMS ENGINEER Pulse 70 11/22/2024 10:56 AM MISSION SYSTEMS ENGINEER Temperature 36.4 C (97.6 F) 08/25/2022 12:45 PM CDT Respiratory Rate 18 08/25/2022 1:05 PM CDT Oxygen Saturation 100% 11/22/2024 10:56 AM MISSION SYSTEMS ENGINEER Inhaled Oxygen Concentration - - Weight 73 kg (161 lb) 11/22/2024 10:56 AM MISSION SYSTEMS ENGINEER Height 157.5 cm (5' 2) 11/22/2024 10:56 AM MISSION SYSTEMS ENGINEER Body Mass Index 29.45 11/22/2024 10:56 AM MISSION SYSTEMS ENGINEER Plan of Treatment Health Maintenance Due Date Last Done Comments Colon Cancer Screening-Colonoscopy 1976 Depression Screening 1976 DTaP/Tdap/Td Vaccine (1 - Tdap) 1987 Hepatitis B Screening 1994 Regular Well Visit/Exam 18-64 1994 Breast Cancer Screening-Mammogram 08/19/2021 020 Influenza Vaccine (Season Ended) 2025 Cervical Cancer Screening Discontinued 06/22/2017 Hepatitis C [...] 08/19/20 1007 Age: 44 Sex: Female [facility] [id number] [id number] Order #[id number] [facility] Jina Bilat Diagnostic 3D Signed - MG [...] Electronically signed by: Kevin Pierre rl/:08/19/2020 11:28:52 Oncology Physician Assistant: Aimee Whipple)Bridgette), [facility] letter sent: Normal Exam Abnormal History Reading location: BI-RADS: 1 Negative REPORT ELECTRONICALLY SIGNED IN OTHER VENDOR SYSTEM Resulting Agency Comment O Procedure Note Kevin Kendall MD - 08/19/2020 Patient Name: MARIA DEL CARMEN CERVANTES Dr: Rose Marie Norton D.O.B: 1975 Exam Date: 08/19/20 1007 Age: 44 Sex: Female MR#: [id number] Loc: RADIOLOGY REPORT Order #[id number] [facility] Bil Diagnostic 3D Signed - MG BILATERAL DIGITAL [...] Electronically signed by: Kevin Pierre rl/:08/19/2020 11:28:52 Oncology Physician Assistant: Aimee Whipple)Bridgette), [facility] letter sent: Normal Exam Abnormal History Reading location: BI-RADS: 1 Negative REPORT ELECTRONICALLY SIGNED IN OTHER VENDOR SYSTEM us Rose Marie Norton CASING IN LINE FEEDER IMG MAMMO PROCEDURES Final Resul t * Hepatitis C antibody (06/22/2017 2:24 PM CDT) Hep C Ab NONREACT NONREACTIVE 06/22/2017 8:23 PM CDT [facility] HISTORICAL RESULTS Comment: Siemens CentaurXP using ROCIO [...] MICROBIOLOGY - GEN ERAL ORDERABLES Final Result [facility] HISTORICAL RESULTS * ThinPrep Imaging Pap and HPV mRNA E6/E7, Chlamydia/N.Gonorrhoeae (06/22/2017 1:46 PM CDT) CLINICAL INFORMATION [facility] HISTORICAL RESULTS Comment:Information not prov ided LMP: 06/10/17 [facility] HISTORICAL RESULTS PREV. PAP: [facility] HISTORICAL RESULTS Comment:NORMAL PREV. BX: [facility] HISTORICAL RESULTS Comment:INFORMATION NOT PROV IDED SOURCE: [facility] HISTORICAL RESULTS Comment:Cervix, Endocervix STATEMENT OF ADEQUACY: [facility] HISTORICAL RESULTS Comment:Satisfactory for conrad luation. Endocervical/transformation zone component present. INTERPRETATION/RES ULT: [facility] HISTORICAL RESULTS Comment:Negative for intraep ithelial lesion or malignancy. COMMENT: [facility] HISTORICAL RESULTS Comment:This Pap test has be en evaluated with computer assisted technology. HOTEL ENGINEER: [facility] HISTORICAL RESULTS Comment:PCM, CT(ASCP) CT scr eening location: [place] [address] [place] [address] HPV mRNA E6/E7 Not Detected Not Detected [facility] HISTORICAL RESULTS Comment: This test was performed using the APTIMA HPV Assay ([employer] This assay detects E6/E7 viral messenger RNA (mRNA) from 14 high-risk HPV types (16,18,31,33,35,39,45,51,52,56,58,59,66,68). C. trachomatis RNA NOT DETECTED NOT DETECTED [facility] HISTORICAL RESULTS N. gonorrhoeae RNA NOT DETECTED NOT DETECTED [facility] HISTORICAL RESULTS COMMENT [facility] HISTORICAL RESULTS Comment: This test was performed using the APTIMA COMBO2 Assay ([employer] The analytical performance characteristics of this assay, when used to test SurePath specimens have been determined by [place]. 06/22/2017 1:46 PM CDT 06/27/2017 12:10 PM CDT Narrative [facility] HISTORICAL RESULTS - 06/27/2017 11:46 AM CDT 0 PERFORMING LAB: [employer] [place] [address] [facility] [phone] Bola Figueroa MD Robyn Ramírez DO LAB PATHOLOGY ORDERABL ES Final Result [facility] HISTORICAL RESULTS from Last 3 Months or Most Recently Relevant to Health Maintenance Insurance [facility] Care Teams Lime Boiler Relationship Specialty Start Date End Date Neil Stinson MD [address] [place] [address] PCP - General Family Medicine 12/15/21
--- OUTSIDE RECORDS SUMMARY | 2025-05-27 19:43 | XMS_ITS | Encounter Summary ---
Author Organization [facility] Address [facility] [place] [address] Care Team Providers Care Regulatory Affairs Coordinator Name Role Phone None, Provider Primary Care Provider Juanis Brito NP Primary Care Provider [phone] Encounter Details Date Type Department Care Team (Latest Contact Info) Description 09/12/2018 Abstract [facility] , Tam Wallace MD Social [...] Rule Out 01/08/2024 01/08/2024 01/08/2024 2:18 PM ADMIRALTY LAWYER COVID-19 Rule Out 10/28/2024 10/28/2024 10/28/2024 10:10 PM ADMIRALTY LAWYER documented as of this encounter Care Teams Regulatory Affairs Coordinator Relationship Specialty Start Date End Date None, Provider, PCP - General 05/06/21 10/27/24 Juanis Richrads NP [address] [address] PCP - General Nurse Practitioner Family 10/28/24 documented as of this encounter
--- OUTSIDE RECORDS SUMMARY | 2025-05-27 19:43 | XMS_ITS | Referral Summary ---
Author Organization [address] Address [facility] [place] [address] Care Team Providers Care Irrigator Sprinkling System Name Role Phone Neil Stinson MD Primary [...] on file Legal Sex Female 11:50 AM CHUCKING AND BORING MACHINE OPERATOR Gender Identity Not on file Sexual Orientation Not on file Last Filed Vital Signs Vital Sign Reading Time Taken Comments Blood Pressure 142/100 11/22/2024 10:56 AM CHUCKING AND BORING MACHINE OPERATOR Pulse 70 11/22/2024 10:56 AM CHUCKING AND BORING MACHINE OPERATOR Temperature 36.4 C (97.6 F) 08/25/2022 12:45 PM CDT Respiratory Rate 18 08/25/2022 1:05 PM CDT Oxygen Saturation 100% 11/22/2024 10:56 AM CHUCKING AND BORING MACHINE OPERATOR Inhaled Oxygen Concentration - - Weight 73 kg (161 lb) 11/22/2024 10:56 AM CHUCKING AND BORING MACHINE OPERATOR Height 157.5 cm (5' 2) 11/22/2024 10:56 AM CHUCKING AND BORING MACHINE OPERATOR Body Mass Index 29.45 11/22/2024 10:56 AM CHUCKING AND BORING MACHINE OPERATOR Plan of Treatment Not on file Procedures [...] 08/19/20 1007 Age: 44 Sex: Female MR#: [id number] Loc: RADIOLOGY REPORT Order #[id number] [facility] Bilat Diagnostic 3D Signed - MG BILATERAL [...] Electronically signed by: Kevin Pierre rl/:08/19/2020 11:28:52 Fire Department Marine Engineer: Aimee Angeles (R)), [facility] letter sent: Normal Exam Abnormal History Reading location: BI-RADS: 1 Negative REPORT ELECTRONICALLY SIGNED IN OTHER VENDOR SYSTEM Resulting Agency Comment O Procedure Note Kevin Kendall MD - 08/19/2020 Patient Name: HELENMARIA DEL CARMEN Dr: Rose Marie Norton D.O.B: 1975 Exam Date: 08/19/20 1007 Age: 44 Sex: Female MR#: [id number] Loc: RADIOLOGY REPORT Order #[id number] [facility] Jina Bilat Diagnostic 3D Signed [...] Electronically signed by: Kevin Pierre rl/:08/19/2020 11:28:52 Fire Department Marine Engineer: Aimee Whipple)(Vickie), [facility] letter sent: Normal Exam Abnormal History Reading location: BI-RADS: 1 Negative REPORT ELECTRONICALLY SIGNED IN OTHER VENDOR SYSTEM Rose Marie M. Norton FINANCE ASSISTANT IMG MAMMO PROCEDURES Final Resul t * [...] CDT 06/22/2017 2:29 PM CDT Bitajuan Vivian Barreraty DO LAB MICROBIOLOGY - GEN ERAL ORDERABLES Final Result [facility] HISTORICAL RESULTS * ThinPrep Imaging Pap and HPV mRNA E6/E7, Chlamydia/N.Gonorrhoeae (06/22/2017 1:46 PM CDT) CLINICAL INFORMATION [facility] HISTORICAL RESULTS Comment:Information not prov ided LMP: 06/10/17 [facility] HISTORICAL RESULTS PREV. PAP: [facility] HISTORICAL RESULTS Comment:NORMAL PREV. BX: [facility] HISTORICAL RESULTS Comment:INFORMATION NOT PROV IDED SOURCE: [facility] HISTORICAL RESULTS Comment:Cervix, Endocervix STATEMENT OF ADEQUACY: [facility] HISTORICAL RESULTS Comment:Satisfactory for conrad luation. Endocervical/transformation zone component present. INTERPRETATION/RES ULT: [facility] HISTORICAL RESULTS Comment:Negative for intraep ithelial lesion or malignancy. COMMENT: [facility] HISTORICAL RESULTS Comment:This Pap test has be en evaluated with computer assisted technology. DIVISION ROAD SUPERVISOR: [facility] HISTORICAL RESULTS Comment:PCM, CT(ASCP) CT scr eening location: [place] [address] [place] [address] HPV mRNA E6/E7 Not Detected Not Detected [facility] HISTORICAL RESULTS Comment: This test was performed using the APTIMA HPV Assay ([employer] This assay detects E6/E7 viral messenger RNA (mRNA) from 14 high-risk HPV types (16,18,31,33,35,39,45,51,52,56,58,59,66,68). C. trachomatis RNA NOT DETECTED NOT DETECTED [facility] HISTORICAL RESULTS N. gonorrhoeae RNA NOT DETECTED NOT DETECTED [facility] HISTORICAL RESULTS COMMENT [facility] HISTORICAL RESULTS Comment: This test was performed using the APTIMA COMBO2 Assay ([employer] The analytical performance characteristics of this assay, when used to test SurePath specimens have been determined by [employer]. 06/22/2017 1:46 PM CDT 06/27/2017 12:10 PM CDT Narrative [facility] HISTORICAL RESULTS - 06/27/2017 11:46 AM CDT 0 PERFORMING LAB: , [place] [address] [address] [facility] [address] Bola Figueroa MD Robyn Ramírez DO LAB PATHOLOGY ORDERABL ES Final Result [facility] HISTORICAL RESULTS from Last 3 Months or Most Recently Relevant to Health Maintenance Insurance [employer] [facility] Care Teams Irrigator Sprinkling System Relationship Specialty Start Date End Date Neil Stinson MD [address] [place], [place] [address] PCP - General Family Medicine 12/15/21
--- OUTSIDE RECORDS SUMMARY | 2025-05-27 19:43 | XMS_ITS | Clinical Summary ---
Author Organization [facility] [address] [place] [address] Address [address] [place] [address] Care Team Providers Care Insurance Inspector Name Role Phone Frankie Busch MD Primary Care Provider [phone] Allergies Active Allergy Reactions Criticality Noted Date Comments Amoxicillin Rash Medium 12/08/2018 Iodine Hives High 01/24/2023 Medications clobetasoL (TEMOVATE) 0.05 % Ointment Apply to affected area 2 times daily. For 14 day. 15 Gram 05/24/2025 Active Active Problems No known active problems Encounters Date Type Department Care Team Description 05/24/2025 Results Follow-Up [facility] ANDROID ARCHITECT - [address] [place] [address] Robyn Ramírez, URINE CULTURE, VAGINOSIS/VAGINITIS PANEL PLUS, HIV DETECTION W/REFLX CONFIRMATION, RPR 05/22/2025 11:00 AM CDT Office Visit [facility] ANDROID ARCHITECT - [address] [facility] [address] [place] [address] Robyn Ramírez DO Vaginal irritation (Primary Dx); Urine frequency; Screening for STDs (sexually transmitted diseases); Perimenopause; Watery diarrhea 05/22/2025 External Device Data STL ABSTRACTION Provider, Abstract 05/22/2025 Orders Only Initial Department [address] [place]AÑA: [place] [address] Provider, Historical 05/21/2025 External Device Data STL ABSTRACTION Provider, Abstract 04/23/2025 External Device Data STL ABSTRACTION Provider, Abstract 04/09/2025 External Device Data STL ABSTRACTION Provider, Abstract 03/28/2025 External Device Data STL ABSTRACTION Provider, Abstract 03/27/2025 External Device Data STL ABSTRACTION Provider, Abstract 03/26/2025 External Device Data STL ABSTRACTION Provider, Abstract 03/12/2025 External Device Data STL ABSTRACTION Provider, Abstract 03/12/2025 External Device Data STL ABSTRACTION Provider, Abstract 03/12/2025 External Device Data STL ABSTRACTION Provider, Abstract 03/05/2025 11:00 AM CDT Office Visit [facility] INFECTIOUS DISEASE TOWER B [address] [place] [id number] Arturo Soliz MD Acute cystitis without hematuria (Primary Dx) from Last 3 Months Family History Medical History Relation Name Comments Hypertension Father Joel Arce Hypertension Mother Cathleen Law Relation Name Status Comments Father Joel Arce Alive Mother Cathleen Law Alive Social History Tobacco Use Types Packs/Day Years Used Date Smoking Tobacco: Former Cigarettes 2 5 Q uit: 09/13/2015 Tobacco Cessation:Counseling Given: Not Answered Alcohol Use Standard Drinks/Week Comments Yes 1 (1 standard drink = 0.6 oz pur e alcohol) Comments No Sex and Gender Information Value Date Recorded Sex Assigned at Not on file Legal Sex Female 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 Gender Identity Not on file Sexual Orientation Not on file Last Filed Vital Signs Vital Sign Reading Time Taken Comments Blood Pressure 160/100 05/22/2025 10:36 AM CDT Pulse 72 05/22/2025 10:36 AM CDT Temperature 37 C (98.6 F) 03/05/2025 10:24 AM CDT Respiratory Rate 14 05/22/2025 10:36 AM CDT Oxygen Saturation 99% 05/22/2025 10:36 AM CDT Inhaled Oxygen Concentration - - Weight 73.9 kg (163 lb) 05/22/2025 10:36 AM CDT Height 157.5 cm (5' 2) 05/22/2025 10:36 AM CDT Body Mass Index 29.81 05/22/2025 10:36 AM CDT Plan of Treatment Health Maintenance Due Date Last Done Comments Pre-Diabetes and Diabetes Screening 1975 DTAP/TDAP/TD VACCINES (1 - Tdap) 1995 HEPATITIS B VACCINES (1 of 3 - 19+ 3-dose series) 1995 BREAST CANCER SCREENING 08/19/2021 08/19/2020, 08/19 COLORECTAL SCREENING 2021 Colorectal Cancer Screening 2021 FIT-DNA Q 3 years 2021 FIT/FOBT Q 1 year 2021 Flex Sig/CT Colonography Q 5 years 2021 Preventative Visit- Commercial 11/07/2024 07/17/2020 , 12/08/2018 INFLUENZA VACCINE (#1) 2025 Procedures Procedure Name Priority Date/Time Associated Diagnosis Comments RPR Routine 05/22/2025 2:54 PM CDT Screening for STDs (sexually transmitted diseases) HIV DETECTION W/REFLX CONFIRMATION Routine 05/22/2025 2:54 PM CDT Screening for STDs (sexually transmitted diseases) URINE CULTURE Routine 05/22/2025 2:54 PM CDT Urine frequency URINE CULTURE Routine 05/22/2025 11:22 AM CDT VAGINOSIS/VAGINITIS PANEL PLUS Routine 05/22/2025 11:22 AM CDT Vaginal irritation from Last 3 Months Results * HIV DETECTION W/REFLX CONFIRMATION (05/22/2025 2:54 PM CDT) [facility] Comment: Quest component Name and Code: HIV FINAL INTERPRETATION [[id number]] HIV Negative HIV-1 antigen and HIV-1/HIV-2 antibodies were not detected. There is no laboratory evidence of HIV infection. HIV-1/2 AG AND AB SCREEN NON-REACT JOE NON-REACT JOE [facility] Comment: Test Performed at: [facility] [address] [place] [address] Bola Figueroa MD Blood 05/22/2025 2:54 PM CDT 05/22/2025 2:55 PM CDT us Adriena Cothron Richardson DO CHEMISTRY ORDERABLES F inal Result Performing Organization Address City/[facility]/ZIP Co de Phone Number [facility] [phone] [facility] [address] [place] [address] * RPR (05/22/2025 2:54 PM CDT) RPR NON-REACTI VE NON-REACTI VE [facility] Comment: No laboratory evidence of syphilis. If recent exposure is suspected, submit a new sample in 2-4 weeks. Test Performed at: [facility] [address] Bola Figueroa MD Blood 05/22/2025 2:54 PM CDT 05/22/2025 2:55 PM CDT Robyn Ramírez DO CHEMISTRY ORDERABLES F inal Result Performing Organization Address [facility] Co de Phone Number [facility] [phone] [facility] [address] * URINE CULTURE (05/22/2025 2:54 PM CDT) Only the most recent of2 resultswithin the time period is included. Pathologist [facility] URINE CULTURE SEE NOTE [facility] Comment: CULTURE, URINE, ROUTINE Micro Number: [id number] Test Status: Final Specimen Source: Urine, clean catch Specimen Quality: Adequate Result: No Growth Test Performed at: [facility] [address] [place] [address] Bola Figueroa Urine URINE SPECIMEN OBTAINED BY CLEAN CATCH PROCEDURE / Unknown 05/22/2025 2:54 PM CDT 05/22/2025 2:55 PM CDT Robyn Ramírez DO MICROBIOLOGY - GENERAL ORDERABLES Final Result [facility] [phone] [facility] [address] [place] [address] * VAGINOSIS/VAGINITIS PANEL PLUS (05/22/2025 11:22 AM CDT) BACTERIAL VAGINOSIS NEGATIVE NEGATIVE [facility] CATALINA SPECIES NOT DETECTED NOT DETECTED [facility] CATALINA GLABRATA NOT DETECTED NOT DETECTED [facility] Comment: Catalina species C. albicans, C. tropicalis, C. parapsilosis, and/or C. dubliniensis can be detected, but not differentiated, in the Catalina spp. result. TRICHOMONAS VAGINALIS (TV), TMA NOT DETECTED NOT DETECTED [facility] CHLAMYDIA TRACHOMATIS RNA, TMA, UROGENITAL NOT DETECTED NOT DETECTED [facility] NEISSERIA GONORRHOEAE RNA, TMA, UROGENITAL NOT DETECTED NOT DETECTED [facility] Comment: For additional information, please refer to https://education.Inkvite/faq/EYB430 (This link is being provided for information/ educational purposes only.) Test Performed at: [facility] [address] [place] [address] Bola Figueroa MD Genital SPECIMEN FROM VAGINA / Unknown 05/22/2025 11:22 AM CDT 05/22/2025 8:31 PM CDT Robyn Ramírez DO MICROBIOLOGY - GENERAL ORDERABLES Final Result Performing Organization Address City/State/[facility] Co de Phone Number [facility] [phone] [facility] [address] [place] [address] from Last 3 Months Insurance [facility] OUT OF STATE Care Teams Insurance Inspector Relationship Specialty Start Date End Date Frankie Busch MD [address] [place] [address] PCP - General Family Practice 01/25/25
--- OUTSIDE RECORDS SUMMARY | 2025-05-27 19:43 | XMS_ITS | Encounter Summary ---
Author Organization [facility] Facility Care Team Providers Care Childcare Director Name Role Phone No, Physician Primary Care Provider [phone] Rose Marie Norton NP Primary Care Provider [phone] Rehan Mendoza MD Primary Care Provider [phone] Rose Marie Norton NP Primary Care Provider [phone] Neil Stinson MD Primary Care Provid er Encounter Details Date Type Department Care Team (Latest Contact Info) Description 11/15/2018 Orders Only [facility] CLINCONV ProviderErin MD [address] [place] [address] Social History Tobacco Use Types Packs/Day Years Used Date Smoking Tobacco: Never Assessed Comments Unknown Sex and Gender Information Value Date Recorded Sex Assigned at Not on file Legal Sex Female 11:50 AM ETL DATA ARCHITECT Gender Identity Not on file Sexual Orientation Not on file documented as of this encounter Plan of Treatment Not on file documented as of this encounter Procedures Procedure Name Priority Date/Time Associated Diagnosis Comments SCAN - PATHOLOGY 11/15/2018 12:0 0 AM ETL DATA ARCHITECT documented in this encounter Results * SCAN - PATHOLOGY (11/15/2018 12:00 AM ETL DATA ARCHITECT) Narrative 11/15/2018 12:00 AM ETL DATA ARCHITECT Ordered by an unspecified provider. us Historical Provider Final Res ult documented in this encounter Visit Diagnoses Not on filedocumented in this encounter Care Teams Childcare Director Relationship Specialty Start Date End Date No, Physician PCP - General 11/21/18 12/21/18 Rose Marie Norton, ANIMAL CARE TAKER [address] [place] [address] PCP - General 12/22/18 09/07/20 Rehan Mendoza MD [address] [facility] [place], [place] [address] PCP - General 09/08/20 12/17/20 Rose Marie Norton, ANIMAL CARE TAKER [address] [place], [place] [id number] PCP - General 12/18/20 12/14/21 Neil Stinson MD [address] [place] [address] PCP - General Family Medicine 12/15/21 documented as of this encounter
[2025-05-27 19:52] VITALS: BP 173/105; PULSE 71; RESP 18; TEMP 36.7; O2SAT 98
--- NOTE | 2025-05-27 20:05 | PC.NURSE ---
Pt. notified this RN that she is leaving the ER. Pt. is A&Ox4. GCS 15.
--- OUTSIDE RECORDS SUMMARY | 2025-05-27 20:13 | XMS_ITS | Clinical Summary ---
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
--- OUTSIDE RECORDS SUMMARY | 2025-05-27 20:13 | XMS_ITS | Clinical Summary ---
Author Organization [address] Address [facility] [place] [address] Care Team Providers Care Deputy Chief Sheriff Name Role Phone Neil Stinson MD Primary [...] on file Legal Sex Female 11:50 AM DISHWASHING MACHINE REPAIRER Gender Identity Not on file Sexual Orientation Not on file Obstetrics History Last Filed Vital Signs Vital Sign Reading Time Taken Comments Blood Pressure 142/100 11/22/2024 10:56 AM DISHWASHING MACHINE REPAIRER Pulse 70 11/22/2024 10:56 AM DISHWASHING MACHINE REPAIRER Temperature 36.4 C (97.6 F) 08/25/2022 12:45 PM CDT Respiratory Rate 18 08/25/2022 1:05 PM CDT Oxygen Saturation 100% 11/22/2024 10:56 AM DISHWASHING MACHINE REPAIRER Inhaled Oxygen Concentration - - Weight 73 kg (161 lb) 11/22/2024 10:56 AM DISHWASHING MACHINE REPAIRER Height 157.5 cm (5' 2) 11/22/2024 10:56 AM DISHWASHING MACHINE REPAIRER Body Mass Index 29.45 11/22/2024 10:56 AM DISHWASHING MACHINE REPAIRER Plan of Treatment Health Maintenance Due Date [...] 08/19/20 1007 Age: 44 Sex: Female [facility] [id number] [id number] RE[facility] Order #[id number] [facility] Jina Bilat Diagnostic 3D Signed - MG [...] Electronically signed by: Kevin Pierre rl/:08/19/2020 11:28:52 Car Carder: Aimee Whipple)Bridgette), [facility] letter sent: Normal Exam Abnormal History Reading location: BI-RADS: 1 Negative REPORT ELECTRONICALLY SIGNED IN OTHER VENDOR SYSTEM Resulting Agency Comment O Procedure Note Kevin Kendall MD - 08/19/2020 Patient Name: MARIA DEL CARMEN CERVANTES Dr: Rose Marie Norton D.O.B: 1975 Exam Date: 08/19/20 1007 Age: 44 Sex: Female MR#: [id number] Loc: RADIOLOGY REPORT Order #[id number] [facility] Bil Diagnostic 3D Signed - [...] Electronically signed by: Kevin Pierre rl/:08/19/2020 11:28:52 Car Carder: Aimee Whipple)Bridgette), [facility] letter sent: Normal Exam Abnormal History Reading location: BI-RADS: 1 Negative REPORT ELECTRONICALLY SIGNED IN OTHER VENDOR SYSTEM us Rose Marie Norton CHAINSTITCH HEMMER IMG MAMMO PROCEDURES Final Resul t * [...] MICROBIOLOGY - GEN ERAL ORDERABLES Final Result [facility] HISTORICAL RESULTS * ThinPrep Imaging Pap and HPV mRNA E6/E7, Chlamydia/N.Gonorrhoeae (06/22/2017 1:46 PM CDT) CLINICAL INFORMATION [facility] HISTORICAL RESULTS Comment:Information not prov ided LMP: 06/10/17 [facility] HISTORICAL RESULTS PREV. PAP: [facility] HISTORICAL RESULTS Comment:NORMAL PREV. BX: [facility] HISTORICAL RESULTS Comment:INFORMATION NOT PROV IDED SOURCE: [facility] HISTORICAL RESULTS Comment:Cervix, Endocervix STATEMENT OF ADEQUACY: [facility] HISTORICAL RESULTS Comment:Satisfactory for conrad luation. Endocervical/transformation zone component present. INTERPRETATION/RES ULT: [facility] HISTORICAL RESULTS Comment:Negative for intraep ithelial lesion or malignancy. COMMENT: [facility] HISTORICAL RESULTS Comment:This Pap test has be en evaluated with computer assisted technology. ENTRY EXAMINER: [facility] HISTORICAL RESULTS Comment:PCM, CT(ASCP) CT scr eening location: [place] [address] [place] [address] HPV mRNA E6/E7 Not Detected Not Detected [facility] HISTORICAL RESULTS Comment: This test was performed using the APTIMA HPV Assay ([employer] This assay detects E6/E7 viral messenger RNA (mRNA) from 14 high-risk HPV types (16,18,31,33,35,39,45,51,52,56,58,59,66,68). C. trachomatis RNA NOT DETECTED NOT DETECTED [facility] HISTORICAL RESULTS N. gonorrhoeae RNA NOT DETECTED NOT DETECTED [facility] HISTORICAL RESULTS COMMENT [facility] HISTORICAL RESULTS Comment: This test was performed using the APTIMA COMBO2 Assay ([employer] The analytical performance characteristics of this assay, when used to test SurePath specimens have been determined by [facility]. 06/22/2017 1:46 PM CDT 06/27/2017 12:10 PM CDT Narrative [facility] HISTORICAL RESULTS - 06/27/2017 11:46 AM CDT 0 PERFORMING LAB: [facility] [place] [address] [facility] [address] Bola Figueroa MD Robyn Ramírez DO LAB PATHOLOGY ORDERABL ES Final Result [facility] HISTORICAL RESULTS from Last 3 Months or Most Recently Relevant to Health Maintenance Insurance [facility] Care Teams Deputy Chief Sheriff Relationship Specialty Start Date End Date Neil Stinson MD [address] [place] [address] PCP - General Family Medicine 12/15/21
--- OUTSIDE RECORDS SUMMARY | 2025-05-27 20:13 | XMS_ITS | Clinical Summary ---
Author Organization [facility] Address [address] [place] [address] Care Team Providers Care Event Services Manager Name Role Phone Juanis Richards NP Primary Care Provider [phone] Allergies Active Allergy Reactions Criticality Noted Date [...] Comments Blood Pressure 167/99 10/28/2024 10:25 PM ORGANIC CHEMISTRY PROFESSOR Pulse 58 10/28/2024 10:25 PM ORGANIC CHEMISTRY PROFESSOR Temperature 37 C (98.6 F) 10/28/2024 8:18 PM ORGANIC CHEMISTRY PROFESSOR Respiratory Rate 16 10/28/2024 10:25 PM ORGANIC CHEMISTRY PROFESSOR Oxygen Saturation 99% 10/28/2024 10:25 PM ORGANIC CHEMISTRY PROFESSOR Inhaled Oxygen Concentration - - Weight 72.6 kg (160 lb) 10/28/2024 8:18 PM ORGANIC CHEMISTRY PROFESSOR Height 160 cm (5' 3) 10/28/2024 8:18 PM ORGANIC CHEMISTRY PROFESSOR Body Mass Index 28.34 10/28/2024 8:18 PM ORGANIC CHEMISTRY PROFESSOR Plan of Treatment Health Maintenance Due Date [...] 08/19/2020 LIPID PANEL Routine 12/08/2018 9:28 AM ORGANIC CHEMISTRY PROFESSOR Essential hypertension from Last 3 Months or Most Recently Relevant to Health Maintenance Results * MAMMOGRAM GENERIC (08/19/2020) Anatomical Region Laterality Modality Other 08/19/2020 Narrative 08/19/2020 Ordered by an unspecified provider. us Documents Scanned SCANNING Final Result * (ABNORMAL) LIPID PANEL (12/08/2018 9:28 AM ORGANIC CHEMISTRY PROFESSOR) CHOLESTEROL 182 <200 MG/DL 12/08/2018 7:45 PM [facility] TRIGLYCERIDES 96 <150 MG/DL 12/08/2018 7:45 PM [facility] HDL 57 >40.0 MG/DL 12/08/2018 7:45 PM [facility] LDL (CALCULATED) 106(H) <100 MG/DL 12/08/2018 7:45 PM [facility] NON HDL CHOLESTEROL 125 <130 MG/DL 12/08/2018 7:45 PM [facility] CHOL/HDL RATIO 3.2 0.0 - 4.5 12/08/2018 7:45 PM [facility] VLDL CALCULATION 19 5 - 55 MG/DL 12/08/2018 7:45 PM ORGANIC CHEMISTRY PROFESSOR [facility] LIPID INTERPRETATION 12/08/2018 7:45 PM ORGANIC CHEMISTRY PROFESSOR [facility] Comment: [facility] REPORT RECOMMENDATIONS: ADULT CHILD LOW RISK: CHOLESTEROL <200 <170 TRIGLYCERIDE <150 --- HDL >=60 --- LDL <100 <110 BORDERLINE: CHOLESTEROL 200-239 170-199 TRIGLYCERIDE 150-199 --- HDL 40-59 --- LDL 100-159 110-129 HIGH RISK: CHOLESTEROL >=240 >=200 TRIGLYCERIDE >=200 --- HDL <40 --- LDL >=160 >=130 12/08/2018 9:28 AM ORGANIC CHEMISTRY PROFESSOR Rose Marie Norton NP LABORATORY Final Result [facility] [address] [place] [address], from Last 3 Months or Most Recently Relevant to Health Maintenance [place] [address] [address] [place] [address] Advance Directives * Full Code (Latest Code Status on File) Date Activated Date Inactivated Comments 06/01/2019 2:39 AM 06/04/2019 12:03 PM Care Teams Event Services Manager Relationship Specialty Start Date End Date Juanis Richards NP [address] [address] PCP - General Nurse Practitioner Family 10/28/24
--- OUTSIDE RECORDS SUMMARY | 2025-05-27 20:13 | XMS_ITS | Referral Summary ---
Author Organization [address] Address [facility] [place] [address] Care Team Providers Care Shank Piece Tacker Name Role Phone Neil Stinson MD Primary [...] on file Legal Sex Female 11:50 AM MIXER OPERATOR HOT METAL Gender Identity Not on file Sexual Orientation Not on file Last Filed Vital Signs Vital Sign Reading Time Taken Comments Blood Pressure 142/100 11/22/2024 10:56 AM MIXER OPERATOR HOT METAL Pulse 70 11/22/2024 10:56 AM MIXER OPERATOR HOT METAL Temperature 36.4 C (97.6 F) 08/25/2022 12:45 PM CDT Respiratory Rate 18 08/25/2022 1:05 PM CDT Oxygen Saturation 100% 11/22/2024 10:56 AM MIXER OPERATOR HOT METAL Inhaled Oxygen Concentration - - Weight 73 kg (161 lb) 11/22/2024 10:56 AM MIXER OPERATOR HOT METAL Height 157.5 cm (5' 2) 11/22/2024 10:56 AM MIXER OPERATOR HOT METAL Body Mass Index 29.45 11/22/2024 10:56 AM MIXER OPERATOR HOT METAL Plan of Treatment Not on file Procedures [...] 08/19/20 1007 Age: 44 Sex: Female MR#: [id number] Loc: RADIOLOGY REPORT Order #[id number] [facility] Bilat Diagnostic 3D Signed - [...] Electronically signed by: Kevin Pierre rl/:08/19/2020 11:28:52 Airplane Pilot Helper: Aimee Angeles (R)), [facility] letter sent: Normal Exam Abnormal History Reading location: BI-RADS: 1 Negative REPORT ELECTRONICALLY SIGNED IN OTHER VENDOR SYSTEM Resulting Agency Comment O Procedure Note Kevin Kendall MD - 08/19/2020 Patient Name: HELENMARIA DEL CARMEN Dr: Rose Marie Norton D.O.B: 1975 Exam Date: 08/19/20 1007 Age: 44 Sex: Female MR#: [id number] Loc: RADIOLOGY REPORT Order #[id number] [facility] Jina Bilat Diagnostic 3D Signed [...] Electronically signed by: Kevin Pierre rl/:08/19/2020 11:28:52 Airplane Pilot Helper: Aimee Whipple)(Vickie), [facility] letter sent: Normal Exam Abnormal History Reading location: BI-RADS: 1 Negative REPORT ELECTRONICALLY SIGNED IN OTHER VENDOR SYSTEM Rose Marie M. Norton AGRICULTURAL SALES REPRESENTATIVE IMG MAMMO PROCEDURES Final Resul t * [...] Chlamydia/N.Gonorrhoeae (06/22/2017 1:46 PM CDT) CLINICAL INFORMATION [facility] HISTORICAL RESULTS Comment:Information not prov ided LMP: 06/10/17 [facility] HISTORICAL RESULTS PREV. PAP: [facility] HISTORICAL RESULTS Comment:NORMAL PREV. BX: [facility] HISTORICAL RESULTS Comment:INFORMATION NOT PROV IDED SOURCE: [facility] HISTORICAL RESULTS Comment:Cervix, Endocervix STATEMENT OF ADEQUACY: [facility] HISTORICAL RESULTS Comment:Satisfactory for conrad luation. Endocervical/transformation zone component present. INTERPRETATION/RES ULT: [facility] HISTORICAL RESULTS Comment:Negative for intraep ithelial lesion or malignancy. COMMENT: [facility] HISTORICAL RESULTS Comment:This Pap test has be en evaluated with computer assisted technology. FAMILY RESOURCE COORDINATOR: [facility] HISTORICAL RESULTS Comment:PCM, CT(ASCP) CT scr eening location: [place] [address] [place] [address] HPV mRNA E6/E7 Not Detected Not Detected [facility] HISTORICAL RESULTS Comment: This test was performed using the APTIMA HPV Assay ([employer] This assay detects E6/E7 viral messenger RNA (mRNA) from 14 high-risk HPV types (16,18,31,33,35,39,45,51,52,56,58,59,66,68). C. trachomatis RNA NOT DETECTED NOT DETECTED [facility] HISTORICAL RESULTS N. gonorrhoeae RNA NOT DETECTED NOT DETECTED [facility] HISTORICAL RESULTS COMMENT [facility] HISTORICAL RESULTS Comment: This test was performed using the APTIMA COMBO2 Assay ([employer] The analytical performance characteristics of this assay, when used to test SurePath specimens have been determined by [facility]. 06/22/2017 1:46 PM CDT 06/27/2017 12:10 PM CDT Narrative [facility] HISTORICAL RESULTS - 06/27/2017 11:46 AM CDT 0 PERFORMING LAB: , [facility] [address] [address] [facility] [address] Bola Figueroa MD Robyn Ramírez DO LAB PATHOLOGY ORDERABL ES Final Result [facility] HISTORICAL RESULTS from Last 3 Months or Most Recently Relevant to Health Maintenance Insurance [facility] Care Teams Shank Piece Tacker Relationship Specialty Start Date End Date Neil Stinson MD [address] [place], [place] [address] PCP - General Family Medicine 12/15/21
--- OUTSIDE RECORDS SUMMARY | 2025-05-27 20:13 | XMS_ITS | Encounter Summary ---
Author Organization [facility] Address [facility] [place] [address] Care Team Providers Care Family Coach Name Role Phone None, Provider Primary Care Provider Juanis Brito NP Primary Care Provider [phone] Encounter Details Date Type Department Care Team (Latest Contact Info) Description 09/12/2018 Abstract [facility] , Tam Wallace MD Social [...] Rule Out 01/08/2024 01/08/2024 01/08/2024 2:18 PM EDGE BANDER HAND COVID-19 Rule Out 10/28/2024 10/28/2024 10/28/2024 10:10 PM EDGE BANDER HAND documented as of this encounter Care Teams Family Coach Relationship Specialty Start Date End Date None, Provider, PCP - General 05/06/21 10/27/24 Juanis Richards NP [address] [address] PCP - General Nurse Practitioner Family 10/28/24 documented as of this encounter
--- OUTSIDE RECORDS SUMMARY | 2025-05-27 20:13 | XMS_ITS | Clinical Summary ---
Author Organization [facility] [address] [place] [address] Address [address] [place] [address] Care Team Providers Care Fruit Harvest Worker Name Role Phone Frankie Busch MD Primary Care Provider [phone] Allergies Active Allergy Reactions Criticality Noted Date Comments Amoxicillin Rash Medium 12/08/2018 Iodine Hives High 01/24/2023 Medications clobetasoL (TEMOVATE) 0.05 % Ointment Apply to affected area 2 times daily. For 14 day. 15 Gram 05/24/2025 Active Active Problems No known active problems Encounters Date Type Department Care Team Description 05/24/2025 Results Follow-Up [facility] BURLAP ROLL COVERER [address] [facility] [address] [address] Robyn Ramírez, URINE CULTURE, VAGINOSIS/VAGINITIS PANEL PLUS, HIV DETECTION W/REFLX CONFIRMATION, RPR 05/22/2025 11:00 AM CDT Office Visit [facility] [employer]URLAP ROLL COVERER [address] [facility] [address] [address] Robyn Ramírez DO Vaginal irritation (Primary Dx); Urine frequency; Screening for STDs (sexually transmitted diseases); Perimenopause; Watery diarrhea 05/22/2025 External Device Data STL ABSTRACTION Provider, Abstract 05/22/2025 Orders Only Initial Department [address] [place]A: [place] [address] Provider, Historical 05/21/2025 External Device Data STL [...] Abstract 03/05/2025 11:00 AM CDT Office Visit [facility] INFECTIOUS DISEASE TOWER B [address] [place] [id number] Arturo Soliz MD Acute cystitis without hematuria [...] on file Legal Sex Female 9:28 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 There is no laboratory evidence of HIV infection. HIV-1/2 AG AND AB SCREEN NON-REACT JOE NON-REACT JOE [facility] Comment: Test Performed at: [facility] [address] [place] [address] Bola Figueroa MD Blood 05/22/2025 2:54 PM CDT 05/22/2025 2:55 PM CDT us Adriena Cothron [place] DO CHEMISTRY ORDERABLES F inal Result Performing Organization Address City/[facility]/ZIP Co de Phone Number [facility] [phone] [facility] [address] [place] [address] * RPR (05/22/2025 2:54 PM CDT) RPR NON-REACTI VE NON-REACTI VE [facility] Comment: No laboratory evidence of syphilis. If recent exposure is suspected, submit a new sample in 2-4 weeks. Test Performed at: [facility] [address] Bola Figueroa MD Blood 05/22/2025 2:54 PM CDT 05/22/2025 2:55 PM CDT Robyn Ramírez DO CHEMISTRY ORDERABLES F inal Result Performing Organization Address [facility] Co de Phone Number [facility] [phone] [facility] [address] * URINE CULTURE (05/22/2025 2:54 PM CDT) Only the most recent of2 resultswithin the time period is included. Pathologist [facility] URINE CULTURE SEE NOTE [facility] Comment: CULTURE, URINE, ROUTINE Micro Number: [id number] Test Status: Final Specimen Source: Urine, clean catch Specimen Quality: Adequate Result: No Growth Test Performed at: [facility] [address] [place] [address] Bola Figueroa Urine URINE SPECIMEN OBTAINED BY CLEAN CATCH PROCEDURE / Unknown 05/22/2025 2:54 PM CDT 05/22/2025 2:55 PM CDT Robyn Ramíerz DO MICROBIOLOGY - GENERAL ORDERABLES Final Result [facility] [phone] [facility] [address] [place] [address] * VAGINOSIS/VAGINITIS PANEL PLUS (05/22/2025 11:22 AM CDT) BACTERIAL VAGINOSIS NEGATIVE NEGATIVE [facility] CATALINA SPECIES NOT DETECTED NOT DETECTED [facility] CATALINA GLABRATA NOT DETECTED NOT DETECTED [facility] Comment: Catalina species C. albicans, C. tropicalis, C. parapsilosis, and/or C. dubliniensis can be detected, but not differentiated, in the Catalina spp. result. TRICHOMONAS VAGINALIS (TV), TMA NOT DETECTED NOT DETECTED [facility] CHLAMYDIA TRACHOMATIS RNA, TMA, UROGENITAL NOT DETECTED NOT DETECTED [facility] NEISSERIA GONORRHOEAE RNA, TMA, UROGENITAL NOT DETECTED NOT DETECTED [facility] Comment: For additional information, please refer to https://education.MarginLeft/faq/QIO854 (This link is being provided for information/ educational purposes only.) Test Performed at: [facility] [address] [place] [address] Bola Figueroa MD Genital SPECIMEN FROM VAGINA / Unknown 05/22/2025 11:22 AM CDT 05/22/2025 8:31 PM CDT Robyn Ramírez DO MICROBIOLOGY - GENERAL ORDERABLES Final Result Performing Organization Address City/State/[facility] Co de Phone Number [facility] [phone] [facility] [address] [place] [address] from Last 3 Months Insurance [facility] OUT OF STATE Care Teams Fruit Harvest Worker Relationship Specialty Start Date End Date Frankie Busch MD [address] [place] [address] PCP - General Family Practice 01/25/25
--- OUTSIDE RECORDS SUMMARY | 2025-05-27 20:13 | XMS_ITS | Clinical Summary ---
Author Organization [email or web address] Address [address] [facility] [place] [address] Care Team Providers Care Payroll Accounting Clerk Name Role Phone None, Physician Primary Care Provider Unavailabl e Source Comments [email or web address],non-owned Affiliates and Associated Physician Practices is amultiple site organization consisting of ambulatory clinics and hospital sitesin [place], [place], [place] and [place]. This disclosure is being madepursuant to the Care Everywhere program and may not contain all information available regarding this patient. Last updated [email or web address] Allergies Active Allergy Reactions Criticality Noted Date [...] Description 03/21/2025 10:00 AM CDT Office Visit [facility] - SHIPPING TEAM LEADER [address], [address] [place] [address] Lance Garcia Che, MD Post [...] Sex Assigned at Female 11/25/2020 1:10 PM VICE PRINCIPAL Legal Sex Female 8:39 AM CDT Gender Identity Female 11/25/2020 1:10 PM VICE PRINCIPAL Sexual Orientation Straight 02/02/2021 4: 18 PM [...] Description 05/31/2025 9:00 AM CDT Clinical Support [facility] [address] [place] [phone] 05/31/2025 9:30 AM CDT Office Visit [facility] [address] [place] [phone] Vianey Llanes, MOLDER CLOSED MOLDS-WRAPPER OPENER [address] [place] [address] Health Maintenance Due Date Last [...] LAB BODY FLUID SPECIMEN / Unknown 03/21/2025 [facility] Nery Garcia MD LAB - POINT OF CARE ORDERABLES Final Result OTHER LAB * (ABNORMAL) COMPREHENSIVE METABOLIC PANEL (03/10/2021 4:13 AM CDT) Glucose 101 70 - 125 mg/dL 03/10/2021 4:57 AM CDT [facility] Sodium 139 136 - 145 mmol/L 03/10/2021 4:57 AM CDT [facility] Potassium 3.5 3.4 - 4.5 mmol/L 03/10/2021 4:57 AM CDT [facility] Chloride 106 98 - 107 mmol/L 03/10/2021 4:57 AM CDT [facility] CO2 22 22 - 29 mmol/L 03/10/2021 4:57 AM CDT [facility] Calcium 8.7 8.4 - 10.2 mg/dL 03/10/2021 4:57 AM T [facility] Anion Gap 15 10 - 20 mmol/L 03/10/2021 4:57 AM T [facility] BUN 8.7(L) 9.8 - 20.1 mg/dL 03/10/2021 4:57 AM T [facility] Creatinine 0.91 0.57 - 1.11 mg/dL 03/10/2021 4:57 AM T [facility] eGFR by MDRD >60 >60 mL/min/1.7 3m2 03/10/2021 4:57 AM T [facility] eGFR by MDRD >60 >60 mL/min/1.7 3m2 03/10/2021 4:57 AM T [facility] Alkaline Phosphatase 47 40 - 150 U/L 03/10/2021 4:57 AM T [facility] ALT 54 5 - 55 U/L 03/10/2021 4:57 AM T [facility] AST 52(H) 5 - 34 U/L 03/10/2021 4:57 AM T [facility] Protein Total 6.2(L) 6.4 - 8.3 gm/dL 03/10/2021 4:57 AM T [facility] Albumin 3.4(L) 3.5 - 5.0 gm/dL 03/10/2021 4:57 AM [facility] Globulin Total 2.8 2.6 - 4.0 gm/dL 03/10/2021 4:57 AM T [facility] Albumin/Globulin Ratio 1.2 0.9 - 1.6 03/10/2021 4:57 AM T [facility] Bilirubin Total 0.6 0.2 - 1.2 mg/dL 03/10/2021 4:57 AM T [facility] Blood BLOOD SPECIMEN / Unknown Lab Venipuncture / Unknown 03/10/2021 4:13 AM CDT 03/10/2021 4:33 AM T us Rehan Mendoza MD LAB - CHEMISTRY ORDERABLES F inal Result Performing Organization Address City/State/[facility] Co de Phone Number [facility] [address] [place] [address] from Last 3 Months or Most Recently Relevant to Health Maintenance Insurance [facility] Advance Directives * Full Code (Latest Code Status on File) Date Activated Date Inactivated Comments 03/09/2021 11:13 AM 03/10/2021 2:16 PM Care Teams Payroll Accounting Clerk Relationship Specialty Start Date End Date None, Physician [address] [place] [address] PCP - General 03/21/25
--- OUTSIDE RECORDS SUMMARY | 2025-05-27 20:13 | XMS_ITS | Encounter Summary ---
Author Organization [facility] Facility Care Team Providers Care Surgical Processor Name Role Phone No, Physician Primary Care Provider Rose Marie Norton NP Primary Care Provider [phone] Rehan Mendoza MD Primary Care Provider [phone] Rose Marie Norton NP Primary Care Provider [phone] Neil Stinson MD Primary Care Provid er Encounter Details Date Type Department Care Team (Latest Contact Info) Description 12/14/2018 Orders Only [facility] CLINCONV ProviderErin MD [address] [place] [address] Social History Tobacco Use Types Packs/Day Years Used Date Smoking Tobacco: Never Assessed Comments Unknown Sex and Gender Information Value Date Recorded Sex Assigned at Not on file Legal Sex Female 11:50 AM 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 us Historical Provider Final Res ult documented in this encounter Visit Diagnoses Not on filedocumented in this encounter Care Teams Surgical Processor Relationship Specialty Start Date End Date No, Physician PCP - General 11/21/18 12/21/18 Rose Marie Norton, BAGGER MEAT [address] [place] [address] PCP - General 12/22/18 09/07/20 Rehan Mendoza MD [address] [facility] [place] [address] PCP - General 09/08/20 12/17/20 Rose Marie Norton, BAGGER MEAT [address] [place], [place] [id number] PCP - General 12/18/20 12/14/21 Neil Stinson MD [address] [place] [address] PCP - General Family Medicine 12/15/21 documented as of this encounter
--- OUTSIDE RECORDS SUMMARY | 2025-05-27 20:13 | XMS_ITS | Encounter Summary ---
Author Organization [facility] Facility Care Team Providers Care Toll Collector Name Role Phone Rose Marie Norton NP Primary Care Provider [phone] Rehan Mendoza MD Primary Care Provider [phone] Rose Marie Norton NP Primary Care Provider [phone] Neil Stinson MD Primary Care Provid er Encounter Details Date Type Department Care Team (Latest Contact Info) Description 12/26/2018 Orders Only [facility] CLINCONV ProviderErin MD [address] [place] [address] Social History Tobacco Use Types Packs/Day Years Used Date Smoking Tobacco: Never Assessed Comments Unknown Sex and Gender Information Value Date Recorded Sex Assigned at Not on file Legal Sex Female 11:50 AM 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
--- OUTSIDE RECORDS SUMMARY | 2025-05-27 20:13 | XMS_ITS | Encounter Summary ---
Author Organization [facility] Facility Care Team Providers Care Home Health Provider Name Role Phone No, Physician Primary Care Provider [phone] Rose Marie Norton NP Primary Care Provider [phone] Rehan Mendoza MD Primary Care Provider [phone] Rose Marie Norton NP Primary Care Provider [phone] Neil Stinson MD Primary Care Provid er Encounter Details Date Type Department Care Team (Latest Contact Info) Description 11/15/2018 Orders Only [facility] CLINCONV ProviderErin MD [address] [place] [address] Social History Tobacco Use Types Packs/Day Years Used Date Smoking Tobacco: Never Assessed Comments Unknown Sex and Gender Information Value Date Recorded Sex Assigned at Not on file Legal Sex Female 11:50 AM 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 us Historical Provider Final Res ult documented in this encounter Visit Diagnoses Not on filedocumented in this encounter Care Teams Home Health Provider Relationship Specialty Start Date End Date No, Physician PCP - General 11/21/18 12/21/18 Rose Marie Norton, ENGINEERING AND SCIENTIFIC PROGRAMMER [address] [place] [address] PCP - General 12/22/18 09/07/20 Rehan Mendoza MD [address] [facility] [place], [place] [address] PCP - General 09/08/20 12/17/20 Roes Marie Norton, ENGINEERING AND SCIENTIFIC PROGRAMMER [address] [place], [place] [phone] PCP - General 12/18/20 12/14/21 Neil Stinson MD [address] [place] [address] PCP - General Family Medicine 12/15/21 documented as of this encounter
== END 2025-05-27 20:05 | disposition left against medical advice (07) ==
PROVIDERS: PCP Nurse Practitioner
DX: I10 Essential (primary) hypertension (principal)
CPT/HCPCS: 99199